=== PATIENT | female | born 1955 | race Caucasian/White ===

== ENCOUNTER 2018-12-28 23:24 | Emergency (ER) | payer OTHER ==
--- OUTSIDE RECORDS SUMMARY | 2018-12-28 23:27 | XMS REPORT ---
:1955 Author Organization [facility] Address [address] [place] [address] Dr. Reyes [address] [place] [id number] Care Team Providers Name Role Phone Unavailable Unavailable Unavailable Problems This patient has no known problems. Allergies, Adverse Reactions, Alerts This patient has no known allergies or adverse reactions. Medications This patient has no known medications.
[2018-12-28 23:57] LABS: Absolute Lymphocytes (CBC) 1.3 K/uL (0.7-4.9); Absolute Monocytes 0.5 K/uL (0.1-1.3); Absolute Neutrophil 2.7 K/uL (1.8-8.0); Basophils % 0.9 % (0-1.3); Eosinophils % 2.8 % (0-4.4); Hematocrit 36.7 % (36.0-45.0); Lymphocytes % 28.2 % (15.3-44.8); MPV 9.1 fL (7.6-11.3)
[2018-12-29 00:01] LABS: Protime INR 0.96
[2018-12-29] MEDS ORDERED: ONDANSETRON 4 MG/2 ML VIAL ONE (00:03)
[2018-12-29] MEDS ORDERED: MORPHINE 2 MG/ML SYR ONE ×2 (00:03→02:17)
[2018-12-29 00:17] LABS: ALT/SGPT 45 U/L (12-78); AST/SGOT 32 U/L (15-37); Alkaline Phosphatase 115 U/L (45-117); BUN Blood Urea Nitrogen 11 mg/dL (7-18); Bicarbonate 28 mmol/L (21-32); Bilirubin Direct < 0.1 mg/dL (0-0.2); Bilirubin Total 0.3 mg/dL (0.2-1.0); Glucose Level 96 mg/dL (74-106); Magnesium 2.2 mg/dL (1.8-2.4); NT PRO-BNP 104 pg/mL (<125); Potassium 3.8 mmol/L (3.5-5.1); Protein, Total 7.1 g/dL (6.4-8.2); Sodium Level 132 mmol/L (136-145); Troponin (Emerg Dept Use Only) < 0.02 ng/mL (0.0-0.045)
--- NOTE | 2018-12-29 05:41 | EDPHYS ---
Physician Documentation [facility] Name: Chica Flores Age: 63 yrs Sex: Female : 1955 Arrival Date: 12/28/2018 Time: 23:28 Bed 30 Private MD: Reuben Gee E ED Physician Armand Canales HPI: 12/29 05:30 This 63 yrs old Female presents to ER via EMS with complaints of Chest Pain. tw4 05:30 The patient or guardian reports chest pain that is located primarily in the epigastric tw4 area. Onset: today. The pain does not radiate. Associated signs and symptoms: The patient has no apparent associated signs or symptoms. The chest pain is described as a heaviness. Duration: The patient or guardian reports a single episode. Modifying factors: The symptoms are alleviated by nothing. the symptoms are aggravated by nothing. Historical: - Allergies: 12/28 23:32 PENICILLINS; la1 23:32 steroids; la1 - PMHx: 23:32 Anxiety; Colitis; Depression; Osteoporosis; PTSD; ulcerative ulcer; la1 - Immunization history:: Adult Immunizations up to date. - Social history:: Smoking status: unknown. - Ebola Screening: : No symptoms or risks identified at this time. ROS: 12/29 05:30 Constitutional: Negative for fever, chills, and weight loss, Eyes: Negative for injury, tw4 pain, redness, and discharge, Respiratory: Negative for shortness of breath, cough, wheezing, and pleuritic chest pain, Abdomen/GI: Negative for abdominal pain, nausea, vomiting, diarrhea, and constipation. MS/Extremity: Negative for injury and deformity, Skin: Negative for injury, rash, and discoloration. Cardiovascular: Positive for chest pain, Negative for edema, orthopnea, palpitations, paroxysmal nocturnal dyspnea. Exam: 05:30 Constitutional: This is a well developed, well nourished patient who is awake, alert, tw4 and in no acute distress. Head/Face: Normocephalic, atraumatic. Cardiovascular: Regular rate and rhythm with a normal S1 and S2. No gallops, murmurs, or rubs. Normal PMI, no JVD. No pulse deficits. Respiratory: Lungs have equal breath sounds bilaterally, clear to auscultation and percussion. No rales, rhonchi or wheezes noted. No increased work of breathing, no retractions or nasal flaring. Abdomen/GI: Soft, non-tender, with normal bowel sounds. No distension or tympany. No guarding or rebound. No evidence of tenderness throughout. Back: No spinal tenderness. No costovertebral tenderness. Full range of motion. MS/ Extremity: Pulses equal, no cyanosis. Neurovascular intact. Full, normal range of motion. Neuro: Awake and alert, GCS 15, oriented to person, place, time, and situation. Cranial nerves II-XII grossly intact. Motor strength 5/5 in all extremities. Sensory grossly intact. Cerebellar exam normal. Normal gait. Vital Signs: 12/28 23:33 BP 157 / 85; Pulse 74; Resp 18; Pulse Ox 98% on R/A; la1 12/29 00:17 BP 155 / 84; Pulse 81; Resp 18; Pulse Ox 98% on R/A; la1 01:18 BP 154 / 71; Pulse 81; Resp 16; Pulse Ox 98% on R/A; la1 01:47 BP 140 / 79; Pulse 90; Resp 18; Temp 97.5; Pulse Ox 98% on R/A; la1 03:11 BP 130 / 80; Pulse 76; Resp 16; Pulse Ox 98% on R/A; la1 04:00 BP 132 / 75; Pulse 78; Resp 16 S; Pulse Ox 100% on R/A; bb 05:36 BP 131 / 89; Pulse 72; Resp 16 S; Pulse Ox 100% on R/A; bb 05:59 BP 130 / 87; Pulse 74; Resp 16 S; Temp 98.1(O); Pulse Ox 99% on R/A; bb MDM: 12/28 23:32 Patient medically screened. tw4 12/29 05:30 Differential diagnosis: chest wall pain, pancreatitis, peptic ulcer disease, pneumonia, tw4 pulmonary embolus, thoracic aortic disection. Data reviewed: vital signs, nurses notes. Data interpreted: Pulse oximetry: 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: normal. Test interpretation: by ED physician or midlevel provider: ECG, plain radiologic studies. Counseling: I had a detailed discussion with the patient and/or guardian regarding: the historical points, exam findings, and any diagnostic results supporting the discharge/admit diagnosis, lab results, radiology results. Special discussion: Based on the patient's history, exam, and Dx evaluation, there is no indication for emergent intervention or inpatient Tx. It is understood by the patient/guardian that if the Sx's persist or worsen they need to return immediately for re-evaluation. I discussed with the patient/guardian in detail that at this point there is no indication for admission to the hospital. It is understood, however, that if the symptoms persist or worsen the patient needs to return immediately for re-evaluation. 12/28 23:34 Order name: Basic Metabolic Panel; Complete Time: 01:11 12/29 01:11 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: Normal except: NA 132; CL 97; GFR 81. 12/28 23:34 Order name: CBC with Diff; Complete Time: 01:12 12/29 01:12 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: Within normal limits. 12/28 23:34 Order name: LFT's; Complete Time: 01:12 12/29 01:12 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: Within normal limits. 12/28 23:34 Order name: Magnesium 12/28 23:34 Order name: NT PRO-BNP; Complete Time: 01:12 12/29 01:12 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: Within normal limits: NT PRO-BNP 104. 12/28 23:34 Order name: PT-INR 12/28 23:34 Order name: Troponin (emerg Dept Use Only) 12/28 23:34 Order name: XRAY Chest (1 view) 12/28 23:34 Order name: EKG; Complete Time: 23:35 12/29 01:16 Order name: CT Chest, Abdomen, Pelvis - W/Contrast 12/29 03:39 Order name: Troponin (emerg Dept Use Only) 12/28 23:34 Order name: Cardiac monitoring; Complete Time: 00:20 12/28 23:34 Order name: EKG - Nurse/Tech; Complete Time: 00:20 12/28 23:34 Order name: IV Saline Lock; Complete Time: 00:20 12/28 23:34 Order name: Labs collected and sent; Complete Time: 23:57 12/28 23:34 Order name: O2 Per Protocol; Complete Time: 23:57 12/28 23:34 Order name: O2 Sat Monitoring; Complete Time: 23:57 tw4 Administered Medications: 12/28 23:50 Drug: Zofran 4 mg Route: IVP; Site: right antecubital; ca1 12/29 01:56 Follow up: Response: No adverse reaction la1 12/28 23:52 Drug: morphine 2 mg Route: IVP; Site: right antecubital; ca1 12/29 01:56 Follow up: Response: No adverse reaction; Pain is decreased la1 02:37 Drug: morphine 2 mg Route: IVP; Site: right antecubital; la1 04:30 Follow up: Response: Pain is decreased bb Disposition: 12/29/18 05:40 Discharged to Home. Impression: Atypical chest pain. - Condition is Stable. - Discharge Instructions: Nonspecific Chest Pain, Weakness. - Medication Reconciliation Form, Thank You Letter, Antibiotic Education, Prescription Opioid Use form. - Follow up: Reuben Gee MD; When: Upon discharge from the Emergency Department; Reason: If symptoms return, Recheck today's complaints, Continuance of care. - Problem is new. - Symptoms have improved. Signatures: Dispatcher [employer] EDMyranda Mcintyre RN RN bb Jose Francisco Stapleton RN RN la1 Armand Canales MD MD tw4 Madalyn Pickens RN RN ca1 Corrections: (The following items were deleted from the chart) 06:03 05:40 12/29/2018 05:40 Discharged to Home. Impression: Atypical chest pain. Condition bb is Stable. Forms are Medication Reconciliation Form, Thank You Letter, Antibiotic Education, Prescription Opioid Use. Follow up: Reuben Gee; When: Upon discharge from the Emergency Department; Reason: If symptoms return, Recheck today's complaints, Continuance of care. Problem is new. Symptoms have improved. tw4
--- NOTE | 2018-12-29 05:41 | ER ---
Nurse's Notes [facility] Name: Chica Flores Age: 63 yrs Sex: Female : 1955 Arrival Date: 12/28/2018 Time: 23:28 Bed 30 Private MD: Reuben Gee E Diagnosis: Atypical chest pain Presentation: 12/28 23:31 Presenting complaint: Patient states: Chest pain for the last 24 hours. Transition of la1 care: patient was not received from another setting of care. Onset of symptoms was December 28, 2018. Risk Assessment: Do you want to hurt yourself or someone else? Patient reports no desire to harm self or others. Initial Sepsis Screen: Does the patient meet any 2 criteria? No. Patient's initial sepsis screen is negative. Does the patient have a suspected source of infection? No. Patient's initial sepsis screen is negative. Care prior to arrival: None. 23:31 Method Of Arrival: EMS: [facility] la1 23:31 Acuity: ANITA 3 la1 Historical: - Allergies: 23:32 PENICILLINS; la1 23:32 steroids; la1 - PMHx: 23:32 Anxiety; Colitis; Depression; Osteoporosis; PTSD; ulcerative ulcer; la1 - Immunization history:: Adult Immunizations up to date. - Social history:: Smoking status: unknown. - Ebola Screening: : No symptoms or risks identified at this time. Screenin/25 00:19 Abuse screen: Denies threats or abuse. Nutritional screening: No deficits noted. la1 Tuberculosis screening: No symptoms or risk factors identified. Fall Risk None identified. Assessment: 00:18 General: Appears in no apparent distress. Behavior is cooperative. Pain: Complains of la1 pain in chest Pain does not radiate. Pain currently is 6 out of 10 on a pain scale. Neuro: Level of Consciousness is awake, alert, obeys commands, Oriented to person, place, time, situation. Cardiovascular: Heart tones S1 S2 present Capillary refill < 3 seconds Patient's skin is warm and dry. Respiratory: Airway is patent Respiratory effort is even, unlabored, Respiratory pattern is regular, symmetrical, Breath sounds are clear bilaterally. GI: No signs and/or symptoms were reported involving the gastrointestinal system. : No signs and/or symptoms were reported regarding the genitourinary system. 01:18 Reassessment: Patient appears in no apparent distress at this time. No changes from la1 previously documented assessment. Patient and/or family updated on plan of care and expected duration. Pain level reassessed. Patient is alert, oriented x 3, equal unlabored respirations, skin warm/dry/pink. 01:47 Reassessment: Patient appears in no apparent distress at this time. No changes from la1 previously documented assessment. Patient and/or family updated on plan of care and expected duration. Pain level reassessed. Patient is alert, oriented x 3, equal unlabored respirations, skin warm/dry/pink. 03:08 Reassessment: Patient appears in no apparent distress at this time. No changes from la1 previously documented assessment. Patient and/or family updated on plan of care and expected duration. Pain level reassessed. Patient is alert, oriented x 3, equal unlabored respirations, skin warm/dry/pink. 04:21 Reassessment: Patient and/or family updated on plan of care and expected duration. Pain bb level reassessed. Patient is alert, oriented x 3, equal unlabored respirations, skin warm/dry/pink. pt is resting quietly, IV site intact, family at bedside, awaiting CT results. 05:58 Reassessment: Patient and/or family updated on plan of care and expected duration. Pain bb level reassessed. Patient is alert, oriented x 3, equal unlabored respirations, skin warm/dry/pink. pt verbalized understanding of and agrees to plan of care discharge instructions given pt ambulated to exit accompanied by spouse. Vital Signs: 12/28 23:33 BP 157 / 85; Pulse 74; Resp 18; Pulse Ox 98% on R/A; la1 12/29 00:17 BP 155 / 84; Pulse 81; Resp 18; Pulse Ox 98% on R/A; la1 01:18 BP 154 / 71; Pulse 81; Resp 16; Pulse Ox 98% on R/A; la1 01:47 BP 140 / 79; Pulse 90; Resp 18; Temp 97.5; Pulse Ox 98% on R/A; la1 03:11 BP 130 / 80; Pulse 76; Resp 16; Pulse Ox 98% on R/A; la1 04:00 BP 132 / 75; Pulse 78; Resp 16 S; Pulse Ox 100% on R/A; bb 05:36 BP 131 / 89; Pulse 72; Resp 16 S; Pulse Ox 100% on R/A; bb 05:59 BP 130 / 87; Pulse 74; Resp 16 S; Temp 98.1(O); Pulse Ox 99% on R/A; bb ED Course: 12/28 23:28 Patient arrived in ED. am2 23:28 Reuben Gee MD is Private Physician. am2 23:30 Jose Francisco Stapleton, ROBERT is Primary Nurse. la1 23:31 Triage completed. la1 23:32 Armand Canales MD is Attending Physician. tw4 23:32 Arm band placed on right wrist. la1 12/29 00:00 X-ray completed. Portable x-ray completed in exam room. Patient tolerated procedure kw well. 00:01 XRAY Chest (1 view) In Process Unspecified. EDMS 00:19 Placed in gown. Bed in low position. Call light in reach. chaser helper on. Pulse ox la1 on. NIBP on. 00:19 No provider procedures requiring assistance completed. Maintain EMS IV. Patient la1 maintains SpO2 saturation greater than 95% on room air. 02:50 CT Chest, Abdomen, Pelvis - W/Contrast In Process Unspecified. EDMS 03:44 Assisted to bathroom. la1 04:41 Diet: Patient given water. per pt request hot tea given. bb 05:39 Reuben Gee MD is Referral Physician. tw4 06:01 IV discontinued, intact, bleeding controlled, No redness/swelling at site. Pressure bb dressing applied. Administered Medications: 12/28 23:50 Drug: Zofran 4 mg Route: IVP; Site: right antecubital; ca1 12/29 01:56 Follow up: Response: No adverse reaction la1 12/28 23:52 Drug: morphine 2 mg Route: IVP; Site: right antecubital; ca1 12/29 01:56 Follow up: Response: No adverse reaction; Pain is decreased la1 02:37 Drug: morphine 2 mg Route: IVP; Site: right antecubital; la1 04:30 Follow up: Response: Pain is decreased bb Outcome: 05:40 Discharge ordered by . tw4 06:01 Discharged to home ambulatory, with family. bb 06:01 Condition: stable 06:01 Instructed on discharge instructions, follow up and referral plans. Demonstrated understanding of instructions, follow-up care. 06:03 Patient left the ED. bb Signatures: Dispatcher [employer] EDMyranda Mcintyre RN RN Jennifer Begum Lee, RN RN la1 Megan Petres am2 Armand Canales MD MD tw4 Madalyn Pickens RN RN ca1 Corrections: (The following items were deleted from the chart) 01:56 01:47 BP 140 / 79; Pulse 90bpm; Resp 18bpm; Pulse Ox 98% RA; la1 la1 06:05 06:01 Discharged to home via wheelchair, with family, ina buckley 06:06 05:58 Reassessment: Patient and/or family updated on plan of care and expected bb duration. Pain level reassessed. Patient is alert, oriented x 3, equal unlabored respirations, skin warm/dry/pink. pt verbalized understanding of and agrees to plan of care discharge instructions given pt assisted to exit via wheelchair accompanied by spouse bb
[2018-12-29 06:20] VITALS: BP 130/87; TEMP 98.1; O2SAT 99
--- NOTE | 2018-12-29 08:30 | RAD REPORT ---
EXAM DESCRIPTION: RAD - Chest Single View - 12/29/2018 12:00 am CLINICAL HISTORY: Chest pain COMPARISON: December 26, 2017 TECHNIQUE: AP portable chest image was obtained 2350 hours . FINDINGS: No focal lung parenchymal process. No mass or failure finding. Interstitial markings are d iffusely prominent but not clearly different from comparison. Extent of chronic disease could mask ea rly edema or infiltrate. Heart and vasculature are normal. No measurable pleural effusion and no pneumothorax. No acute bony abnormality seen. No acute aortic findings suspected. IMPRESSION: Chronic interstitial lung disease not clearly different from December 2017.
--- NOTE | 2018-12-29 08:46 | EKG ---
Test Date: 2018-12-28 Test Time: 23:37:33 Casing Inspector: JEANIE MEASUREMENT RESULTS: Intervals: Rate: 74 FL: QRSD: 80 QT: 414 QTc: 459 [place]: P: FL: QRS: 56 T: 62 INTERPRETIVE STATEMENTS: Sinus rhythm with occasional premature ventricular complexes Abnormal ECG Compared to ECG 12/26/2017 05:13:04 Ventricular premature complex(es) now present Atrial premature complex(es) no longer present Electronically Signed On 12-29-18 08:45:26 CDT by Aiden Garner
--- NOTE | 2018-12-29 12:22 | RAD REPORT ---
EXAM DESCRIPTION: CT - Chest Abdomen Pelvis W Cont - 12/29/2018 6:33 am CLINICAL HISTORY: The patient is 63 years old and is Female; CHEST PAIN TECHNIQUE: Axial computed tomography images of the chest, abdomen and pelvis with intravenous contra st. Sagittal and coronal reformatted images were created and reviewed. This CT exam was performed using one or more of the following dose reduction techniques: automated exposure control, adjustme nt of the mA and/or kV according to patient size, and/or use of iterative reconstruction technique. COMPARISON: None. FINDINGS: CHEST: LUNGS: Hyperinflation without focal consolidation, pleural effusion or pneumothorax. Minimal atele ctasis versus scarring in the lingula. PLEURAL SPACE: See above. HEART: Heart is normal in size. Chronic calcifications noted. No significant pericardial effusion. THYROID: Visualized thyroid is within normal limits. ABDOMEN: LIVER: Diffuse hepatic steatosis GALLBLADDER AND BILE DUCTS: Unremarkable. No calcified stones. No ductal dilation. PANCREAS: Unremarkable. No ductal dilation. No mass. SPLEEN: Unremarkable. No splenomegaly. ADRENALS: Unremarkable. No mass. KIDNEYS AND URETERS: Unremarkable. No hydronephrosis. No solid mass. STOMACH AND BOWEL: Moderate stool burden throughout the large bowel. No mucosal thickening. PELVIS: APPENDIX: No findings to suggest acute appendicitis. BLADDER: Unremarkable. No mass. REPRODUCTIVE: Unremarkable as visualized. CHEST, ABDOMEN and PELVIS: INTRAPERITONEAL SPACE: Unremarkable. No significant fluid collection. No free air. BONES/JOINTS: Diffuse osteopenia. No acute fracture. No dislocation. SOFT TISSUES: Unremarkable. VASCULATURE: Minimal calcification in the descending aorta. Aortic arch and great vessels are within normal limits. No filling defect in the pulmonary arterial tree. No aortic aneurysm. LYMPH NODES: Unremarkable. No enlarged lymph nodes. OTHER FINDINGS: Multiple Schmorl's node deformities. IMPRESSION: 1. No acute intrathoracic, abdominal pelvic abnormality. 2. Pulmonary hyperinflation without focal consolidation. 3. Moderate to severe stool burden throughout the large bowel without rectal distention. Correlate for constipation. 4. Coronary artery calcifications. 5. Mild aortic atherosclerotic calcification. 6. Diffuse hepatic steatosis. 7. Diffuse osteopenia. Electronically signed by: Seng Rutherford DO 12/29/2018 3:07 AM CDT Due to temporary technical issues with the PACS/Fluency reporting system, reports are being signed by the in house radiologist as a courtesy to ensure prompt reporting. The interpreting radiologist is f ully responsible for the content of the report.
== END 2018-12-29 06:03 | disposition home or self-care (01) ==
LOC: ER 23:24
DX: R07.89 Other chest pain (principal); Z88.0 Allergy status to penicillin; Z88.8 Allergy status to other drugs, medicaments and biological substances
CPT/HCPCS: 36415; 71045; 71260; 74177; 80048; 80076; 83735; 83880; 84484; 85025; 85610; 93005; 96374; 96375; 99285; J2270; J2405; Q9967

== ENCOUNTER 2020-09-03 00:47 | Observation (INO) | payer OTHER ==
--- OUTSIDE RECORDS SUMMARY | 2020-09-03 00:50 | XMS REPORT | Clinical Summary ---
:1955 Author Organization [facility] Address [address] [place] [address] Care Team Providers Name Role Phone Marlen Wong MD Primary Care Provider Allergies Active Allergy Reactions Severity Noted Date Comments Penicillins Unknown Reaction 06/16/2020 Prednisolone Other (See Comments) 06/16/2020 Hives,r estless,per pt she is allergic to po steroids [per pt she is ok to take IV steroid} Medications Medication Sig Dispensed Refills Start Date End Date Status ALPRAZolam (XANAX) Take 2 mg by 0 Active 2 MG tablet mouth daily as needed for anxiety. senna (SENOKOT) Take 2 tablets 0 06/22/20 Discontinued 8.6 mg tablet by mouth 2 20 (Stop Taking at (two) times a Discha rge) day. acetaminophen-code Take 1 tablet 30 tablet 0 06/22/2020 ine (TYLENOL WITH by mouth every 20 CODEINE #3) 300-30 6 (six) hours mg per as needed for tabletIndications: moderate pain acute pain for up to 8 days .acute pain. amLODIPine Take 1 tablet 30 tablet 2 06/23/2020 07/23/20 Expi red (NORVASC) 10 mg (10 mg total) 20 tablet by mouth daily for 30 days. budesonide EC Take 3 90 capsule 0 06/23/2020 07/23/20 Expi red (ENTOCORT EC) 3 mg capsules (9 mg 20 24 hr capsule total) by mouth daily for 30 days. gabapentin Take 1 capsule 90 capsule 2 06/22/2020 07/22/20 Ex pired (NEURONTIN) 300 mg (300 mg total) 20 capsule by mouth 3 (three) times a day for 30 days. lisinopriL Take 1 tablet 30 tablet 2 06/23/2020 07/23/20 Expi red (PRINIVIL) 40 mg (40 mg total) 20 tablet by mouth daily for 30 days. mesalamine Take 1 tablet 90 tablet 0 06/22/2020 07/22/20 Expi red (ASACOL) 800 mg EC (800 mg total) 20 tablet by mouth 3 (three) times a day for 30 days. mesalamine Insert 60 mL 1800 mL 0 06/22/2020 07/22/20 Expir ed (ROWASA) 4 gram/60 (4 g total) 20 mL enema into the rectum nightly for 30 days. triamcinolone Apply 30 g 0 06/22/2020 07/22/20 Expir ed (KENALOG) 0.1 % topically 2 20 cream (two) times a day for 30 days. Active Problems Problem Noted Date Colitis 06/16/2020 Encounters Date Type Specialty Care Team Description 06/28/2020 Patient Outreach Quality Ludmila Dill MA 06/28/2020 Patient Outreach Quality Ludmila Dill MA 06/27/2020 Patient Outreach Quality Ludmila Dill MA 06/16/2020 - Hospital Encounter General Internal Suzan Pierce Col itis (Primary Dx) 06/22/2020 Medicine MD [place] 06/16/2020 Travel after 09/03/2019 Surgical History Surgery Date Site/Laterality Comments DILATION AND CURETTAGE OF UTERUS TONSILLECTOMY EYE SURGERY Medical History Medical History Date Comments UC (ulcerative colitis) (HCC) PTSD (post-traumatic stress disorder) Depression Social History Tobacco Use Types Packs/Day Years Used Date Never Assessed Sex Assigned at Date Recorded Not on file Last Filed Vital Signs Vital Sign Reading Time Taken Comments Blood Pressure 173/83 06/22/2020 2:05 PM CDT Pulse 76 06/22/2020 11:42 AM CDT Temperature 36.8 C (98.3 F) 06/22/2020 11:42 AM CDT Respiratory Rate 16 06/22/2020 11:42 AM CDT Oxygen Saturation 100% 06/22/2020 11:42 AM CDT Inhaled Oxygen Concentration - - Weight 44.3 kg (97 lb 11.2 oz) 06/16/2020 8:18 PM CDT Height 167.6 cm (5' 6") 06/17/2020 8:57 AM CDT Body Mass Index 15.77 06/16/2020 8:18 PM CDT Plan of Treatment Health Maintenance Due Date Last Done Comments CERVICAL CANCER SCREENING 1976 BREAST CANCER SCREENING 2005 COLONOSCOPY SCREENING 2005 SHINGLES VACCINES (#1) 2005 INFLUENZA VACCINE 05/07/2020 65+ PNEUMOCOCCAL VACCINE (1 of 1 - PPSV23) 2020 Procedures Procedure Name Priority Date/Time Associated Comments Diagnosis ESTIMATED GFR Routine 06/22/2020 4:35 Results fo r this AM CDT procedure are i n the results section. MAGNESIUM LEVEL Routine 06/22/2020 4:35 Results for this AM CDT procedure are i n the results section. BASIC METABOLIC PANEL Routine 06/22/2020 4:35 Re sults for this AM CDT procedure are i n the results section. HC COMPLETE BLD COUNT Routine 06/22/2020 4:35 Re sults for this W/AUTO DIFF AM CDT procedure are i n the results section. ESTIMATED GFR Routine 06/21/2020 5:00 Results fo r this AM CDT procedure are i n the results section. BASIC METABOLIC PANEL Routine 06/21/2020 5:00 Re sults for this AM CDT procedure are i n the results section. HC COMPLETE BLD COUNT Routine 06/21/2020 5:00 Re sults for this W/AUTO DIFF AM CDT procedure are i n the results section. ESTIMATED GFR Routine 06/20/2020 3:35 Results fo r this AM CDT procedure are i n the results section. BASIC METABOLIC PANEL Routine 06/20/2020 3:35 Re sults for this AM CDT procedure are i n the results section. HC COMPLETE BLD COUNT Routine 06/20/2020 3:35 Re sults for this W/AUTO DIFF AM CDT procedure are i n the results section. FECAL CALPROTECTIN Routine 06/18/2020 5:03 Resul ts for this PM CDT procedure are i n the results section. GASTROINTESTINAL PANEL Routine 06/18/2020 5:03 R esults for this PM CDT procedure are i n the results section. ESTIMATED GFR Routine 06/18/2020 3:55 Results fo r this AM CDT procedure are i n the results section. BASIC METABOLIC PANEL Routine 06/18/2020 3:55 Re sults for this AM CDT procedure are i n the results section. HC COMPLETE BLD COUNT Routine 06/18/2020 3:55 Re sults for this W/AUTO DIFF AM CDT procedure are i n the results section. CRP HIGH SENSITIVITY Routine 06/17/2020 5:25 Res ults for this PM CDT procedure are i n the results section. SEDIMENTATION RATE Routine 06/17/2020 5:25 Resul ts for this PM CDT procedure are i n the results section. ESTIMATED GFR Routine 06/17/2020 4:44 Results fo r this AM CDT procedure are i n the results section. COMPREHENSIVE METABOLIC Routine 06/17/2020 4:44 Results for this PANEL AM CDT procedure are i n the results section. HC COMPLETE BLD COUNT Routine 06/17/2020 4:44 Re sults for this W/AUTO DIFF AM CDT procedure are i n the results section. after 09/03/2019 Results Estimated GFR (06/22/2020 4:35 AM CDT)Only the most recent of5 resultswithin the time period is included. [facility] Estimated GFR >=90 mL/min/1.73 [facility] [place] Comment: m2 [place] Catergory Units 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 HOS PITAL G1 >=90 Normal or high G2 60-89 Mildly decreased G3a 45-59 Mildly to moderately decreas ed G3b 30-44 Moderately to severely decre ased G4 15-29 Severely decreased G5 <15 Kidney failure The eGFR was calculated using the Chronic Kidney Disea se Epidemiology Collaboration (CKD-EPI) equation. 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 is based on recommendations of the National Kidney Foundation-Kidney Disease Outcomes Alec lity Initiative (NKF-KDOQI) published in 2014. Specimen Performing Organization Address City/State/ZIP Code Phon e Number [facility] DEPARTMENT OF PATHOLOGY [address] [facility] [place] [address] AND GENOMIC MEDICINE [facility] [address] [facility] [place] [address] HOSPITAL CBC with platelet and differential (06/22/2020 4:35 AM CDT)Only the most recent of5 resultswithin the time period is included. [facility] WBC 9.6 4.5 - 11.0 k/uL [facility] RBC 3.56 (L) 4.20 - 5.50 [facility] m/uL [facility] HGB 11.1 (L) 12.0 - 16.0 [facility] g/dL [facility] HCT 34.4 (L) 37.0 - 47.0 % [facility] MCV 96.6 82.0 - 100.[address] [facility] MCH 31.2 27.0 - 34.[address] [facility] MCHC 32.3 31.0 - 37.0 [facility] g/dL [facility] RDW - SD 49.8 37.0 - 55.[address] [facility] MPV 12.0 (H) 6.9 - 11.[address] [facility] Platelet count 231 150 - 400 K/uL [facility] Nucleated RBC 0.00 /[address] [facility] Neutrophils 86.4 (H) 39.0 - 69.0 % [facility] Lymphocytes 10.0 (L) 25.0 - 45.0 % [facility] Monocytes 2.9 0.0 - 10.0 % [facility] Eosinophils 0.0 0.0 - 5.0 % [facility] Basophils 0.1 0.0 - 1.0 % [facility] Immature granulocytes 0.6 0.0 - 1.0 % [facility] Specimen Blood Performing Organization Address City/[facility]/ZIP Code Phon e Number [facility] DEPARTMENT OF PATHOLOGY [id number] [place] [address] Magnesium level (06/22/2020 4:35 AM CDT) Pathologist Sig nature Magnesium 2.0 1.6 - 2.4 mg/dL [facility] Specimen Blood Performing Organization Address City/[facility]/ZIP Code Phon e Number [facility] DEPARTMENT OF PATHOLOGY [id number] [place] [address] Basic metabolic panel (06/22/2020 4:35 AM CDT)Only the most recent of4 results within the time period is included. Pathologist Sig nature Sodium 140 135 - 148 mEq/L [facility] Potassium 3.7 3.5 - 5.0 mEq/L [facility] Chloride 106 98 - 112 mEq/L [facility] CO2 24 24 - 31 mEq/L [facility] Anion gap 10@ANIO 7 - 15 mEq/L [facility] BUN 4 (L) 8 - 23 mg/dL [facility] Creatinine 0.49 (L) 0.50 - 0.90 mg/dL [facility] Glucose 130 (H) 65 - 99 mg/dL [facility] Calcium 8.9 8.8 - 10.2 mg/dL [facility] Specimen Blood Performing Organization Address City/State/ZIP Code Phon e Number [facility] DEPARTMENT OF PATHOLOGY [address] [facility] [place] [address] AND GENOMIC MEDICINE [facility] [address] [facility] X [address] HOSPITAL Gastrointestinal panel (06/18/2020 5:03 PM CDT) Pathologist [facility] Adenovirus 40/41 PCR Not Detected [place] Comment: RELIGIOUS Specimen Information HOSPITAL Specimen Source: Stool Specimen Site: Nonpreserved Astrovirus PCR Not Detected [facility] Campylobacter PCR Not Detected [facility] Clostridioides difficile Not Detected [facility] Cryptosporidium PCR Not Detected [facility] Cyclospora cayetanensis Not Detected [facility] Enteroaggregative E coli Not Detected [facility] Entamoeba histolytica Not Detected [facility] Enteroinvasive E coli Not Detected [facility] Enteropathogenic E coli Not Detected [facility] Norovirus PCR Not Detect[facility] Plesiomonas shigelloides Not Detected [facility] Rotavirus PCR Not Detected [facility] Salmonella PCR Not Detected [facility] Sapovirus PCR Not Detected [facility] Enterotoxigenic E coli Not Detected [facility] Shigatoxin producing E Not Detected [place] coli [facility] E coli O157 PCR Not Reported [facility] Vibrio PCR Not Detected [facility] Vibrio cholerae PCR Not Detected [facility] Yersinia enterocolitica Not Detected [facility] Giardia lamblia PCR Not Detected [facility] Specimen Stool - Nonpreserved Performing Organization Address City/State/ZIP Code Phon e Number [facility] DEPARTMENT OF PATHOLOGY AND [address], [place] [address] [address] Fecal calprotectin (06/18/2020 5:03 PM CDT) Fecal calprotectin 1,273.50 (H) <15.6-120 mg/kg [facility] Specimen Blood Performing Organization Address City/[facility]/ZIP [facility] Phon e Number [facility] DEPARTMENT OF PATHOLOGY AND [address] [place] [address] [phone] [address] Sedimentation rate (06/17/2020 5:25 PM CDT) Pathologist Sig nature Sedimentation rate 10 0 - 20 mm/hr [facility] Specimen Blood Performing Organization Address City/[facility] Phon e Number [facility] DEPARTMENT OF PATHOLOGY [address] [facility] [address] AND [facility] [address] [facility] [place] [address] HOSPITAL CRP high sensitivity (06/17/2020 5:25 PM CDT) CRP, high 0.91 mg/L [place] sensitivity Comment: RELIGIOUS Please note this test is different from the C-Reactive Protein HOSPITAL (CRP) assay. CRP is a nonspecific marker of inflammati on and its levels rise in the presence of conditions such as infection and inflammatory disorders. Persistent low levels of C RP can be measured with a high-sensitivity assay (hsCRP) and a re associated with increased risks for atherosclerotic di seases. High-Sensitivity CRP (hsCRP) results are used to assig n risk for stroke, acute myocardial infarction and peripheral vascular disease as follows: Low risk: < 1.00 mg/L Average risk: 1.00 - 3.00 mg/L High risk: > 3.00 - 10.00 mg/L Indeterminate: > 10.00 mg/L * *May be indicative of another source of inflammation or infection Specimen Blood Performing Organization Address City/[facility] Phon e Number [facility] DEPARTMENT OF PATHOLOGY AND [address] [place] [address] [phone] [address] Comprehensive metabolic panel (06/17/2020 4:44 AM CDT) Pathologist Sig nature Sodium 140 135 - 148 mEq/L [facility] Potassium 4.4 3.5 - 5.0 mEq/L [facility] Chloride 103 98 - 112 mEq/L [facility] CO2 25 24 - 31 mEq/L [facility] Anion gap 12@ANIO 7 - 15 mEq/L [facility] BUN 9 8 - 23 mg/dL [facility] Creatinine 0.68 0.50 - 0.90 [facility] mg/dL [facility] Glucose 121 (H) 65 - 99 mg/dL [facility] Calcium 9.4 8.8 - 10.2 mg/dL [facility] Protein 6.7 6.3 - 8.3 g/dL [facility] Albumin 4.0 3.5 - 5.0 g/dL [facility] A/G ratio 1.5 0.7 - 3.8 [facility] Alkaline phosphatase 96 35 - 104 U/L [facility] AST 25 10 - 35 U/L [facility] ALT 16 5 - 50 U/L [facility] Total bilirubin <0.2 0.2 - 1.2 mg/dL [facility] Specimen Blood Performing Organization Address City/State/ZIP Code Phon e Number [facility] DEPARTMENT OF PATHOLOGY [address] [facility] [place] [address] AND GENOMIC MEDICINE [facility] [address] [facility] [place] [address] HOSPITAL after 09/03/2019 Insurance Payer Benefit Plan / Subscriber ID Effective Dates Phone Addre ss Type Group MEDICARE MEDICARE PART A [id number] 2020-Present [facility] [place] [place] AETNA AETNA HMO,POS,EPO, [id number] 2012-Present HMO [facility] Advance Directives For more information, please contact: [phone] Type Date Recorded Patient Development Editor Explanati on Advance Directives, Living Will 06/18/2020 2:18 PM and Medical Power of Puzzle [employer]
--- OUTSIDE RECORDS SUMMARY | 2020-09-03 00:51 | XMS REPORT | Continuity of Care Document ---
:1955 Author Organization [facility] Address [address] [place] [address] Care Team Providers Name Role Phone ANA Primary Care Physician Allergies, Adverse Reactions, Alerts Allergen Type Severity Reaction Last Verified Status Updated Penicillins Allergy Unknown March 29, No Active ([id number]) 2016 ORAL STERIODS Allergy Mild January 31, No Acti ve 2016 Medications Medication Status Dose Units Route Sig Qty Days Start End Instruct ions Date Date Alprazolam Active 2 ORAL Three Times A Day Fluoxetine Hcl Active 80 ORAL Daily Gabapentin Active 100 ORAL Twice A 14 7 Rosibel Day for 8th, Pain 2020 1:04pm Promethazine Active Unknown ORAL as Hcl Dose needed for Nausea Tramadol Hcl Active 1 ORAL 60 Tramadol/Apap Active 1 ORAL Every 12 2 April * 4-6 8th, Hours 2019 As 1:04pm Needed as needed for Pain Problems Active Problems Medical Problem Onset Date Status Abdominal pain Active Ulcerative colitis Active Acute infective gastroenteritis Active Infective enteritis Active Inactive/Resolved Problems Medical Problem Onset Date Status Hx of ulcerative colitis Resolved Gastroenteritis Resolved Anxiety Resolved Dysthymia Resolved Weight loss Resolved Left leg pain Resolved Procedures Procedure Date Performed Status Computed tomography of abdomen June 16, 2020 complete d and pelvis with contrast Relevant Diagnostic Tests and/or Laboratory Data Laboratory Results Test Date/Time Result 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 Reference Result Perfo rming Range Comment Site White Blood Count June 6.6 4.0-11.5 MR , [address] [facility] [address] 10:08am Red Blood Count June 3.95 3.80-5.20 [facility] , [address] [facility] [address] [facility] [address] 10:08am Hemoglobin June 12.3 10.5-15.7 [facility], [address] [facility] [address] [facility] [address] 10:08am Hematocrit June 37.7 34.0-50.0 [facility], [address] [facility] [address] [facility] [address] 10:08am Mean Corpuscular Ary 95.4 86-100 [facility], [address] [facility] [address] Volume [address] [facility] [address] 10:08am Mean Corpuscular Ary 31.1 26.2-33.4 [facility], 104 [facility] Hemoglobin [address] [facility] [address] 10:08am Mean Corpuscular Ary 32.6 30-34 [facility], 104 [facility] Hemoglobin Concent [address] [facility] [address] 10:08am Red Cell June 13.4 12.0-15.5 [facility], [address] [facility] Distribution Width [address] [facility] [address] 10:08am Platelet Count June 258 165-450 [facility], [address] [facility] [address] [facility] [address] 10:08am Mean Platelet June 11.5 9.4-12.6 [facility], 104 [facility] Volume [address] [facility] [address] 10:08am Neutrophils (%) June 63.8 44.4-80.1 [facility] , 104 [facility] (Auto) 2019 [facility] [address] 10:08am Immature June 0.3 0.0-0.4 [facility], 104 Granulocyte % 2019 [facility] [place] [address] (Auto) 10:08am Lymphocytes (%) June 23.4 10.0-50.0 [facility] , [address] [facility] [address] (Auto) [address] [facility] [address] 10:08am Monocytes (%) June 9.0 3.6-12.0 [facility], [address] [facility] [address] (Auto) [address] [facility] [address] 10:08am Eosinophils (%) June 2.6 0.0-5.4 [facility] , 104 [facility] (Auto) [address] [facility] [address] 10:08am Basophils (%) June 0.9 0.1-1.2 [facility], [address] [facility] (Auto) 2019 [place] [address] 10:08am Neutrophils # June 4.19 1.56-6.13 [facility], [address] (Auto) [address] [facility] [address] 10:08am Absolute Immature Ary 0.0 0.0-0.03 [facility], [address] Granulocyte (auto 2019 [facility] [address] 10:08am Lymphocytes # June 1.5 1.18-3.74 [facility], [address] [facility] [address] (Auto) [address] [facility] [address] 10:08am Monocytes # (Auto) June 0.59 0.24-0.86 M [facility], [address] [facility] [address] 10:08am Eosinophils # June 0.17 0.04-0.36 [facility], [address] [facility] (Auto) 2019 [facility] [address] 10:08am Basophils # (Auto) June 0.06 0.01-0.08 M [facility], [address] [facility] [address] 10:08am Nucleated Red Ary 0 0-0.2 [facility], 104 [facility] Blood Cells % 2019 [place] [id number] 10:08am Nucleated Red Ary 0 0 [facility], 104 [facility] Blood Cells # 2019 [facility] [address] 10:08am Prothrombin Time June 10.3 10.3-12.3 [facility], 2019 LEVEL: 1.5 [facility] [address] 10:08am to 1.9 times normal range of PT Prothromb Time June 0.95 Recommended [facility], 104 International 2019 therapeutic [place] [id number] Ratio 10:08am range for patients receiving warfarin (coumadin) therapy: INR is 2.0 to 3.0Recommend ed range for patients with mechanical prosthetic heart valves: INR is 2.5 to 3.5 Activated Partial June 28.5 22.5-37.0 [facility], [address] Thromboplast Time 2019 [facility] [address] 10:08am Urine Color June LIGHT [facility], [address] [facility] [address] 11:06am Urine Appearance June CLEAR CLEAR [facility], [address] [facility] [address] 11:06am Urine Glucose (UA) June NEGATIVE NEGATIVE M [facility], 2019 [place] [id number] 11:06am Urine Bilirubin Ary NEGATIVE NEGATIVE [facility] , 104 2019 [place] [id number] 11:06am Urine Ketones June NEGATIVE NEGATIVE [facility], 104 2019 [place] [id number] 11:06am Urine Specific Ary 1.004 1.003-1.03 [facility] , 104 [place] 2019 0 [place] [id number] 11:06am Urine Blood Ary NEGATIVE NEGATIVE [facility], 10 4 2019 [place] [id number] 11:06am Urine pH June 6.000 5-9 [facility], 104 2019 [place] [id number] 11:06am Urine Protein June NEGATIVE NEGATIVE [facility], 104 2019 [place] [address] 11:06am Urine Urobilinogen June NORMAL 0.2-1.0 M [facility], 104 2019 [place] [id number] 11:06am Urine Nitrate Ary NEGATIVE NEGATIVE [facility], 104 2019 [place] [address] 11:06am Urine Leukocyte June NEGATIVE NEGATIVE [facility] , 104 Esterase 2019 [place] [address] 11:06am Urine RBC June <1 0-5 [facility], 104 2019 [place] [id number] 11:06am Urine WBC June <1 0-5 [facility], 104 2019 [place] [address] 11:06am Urine Epithelial June <1 0-5 [facility], 104 2019 [place] [id number] 11:06am Urine Bacteria June None None [facility], 104 2019 Detected Detect [place] [address] 11:06am Urine Casts June None None [facility], 10 4 2019 Detected Detect [place] [address] 11:06am Urine Culture June NO [facility], 104 Reflexed 2019 [place] [id number] 11:06am Random Glucose June 96 82-115 [facility], 104 2019 [place] [id number] 10:08am Blood Urea June 7 8-23 [facility], 104 2019 [place] [id number] 10:08am Serum Osmolality June 272 280-300 [facility], 104 2019 [place] [address] 10:08am Creatinine Ary 0.7 0.50-0.90 [facility], 104 [address] [place] [address] 10:08am Glomerular Ary > 60.00 GFR RESULTS [facility], 1 Filtration Rate 2019 ARE REPORTED [place] [address] Calc 10:08am IN mL/min/1.73m 2.Normal GFR: >60mL/minMod erately decreased GFR: 30-59 mL/minSevere ly decreased GFR: 15-29 mL/minKidney Failure (or Dialysis): <15 mL/minThe calculated eGFR is not valid for patients younger than 18 years or older than 75 years. BUN/Creatinine Ary 10.0 12-20 [facility], 104 Ratio 2019 [place] [address] 10:08am Sodium Level June 137 135-145 [facility], [address] [place] [id number] 10:08am Potassium Level June 3.5 3.5-5.2 [facility] , 104 [address] [place] [address] 10:08am Chloride Level June 102 98-108 [facility], 104 2019 [place] [address] 10:08am Carbon Dioxide June 26 21-32 [facility], 104 Level 2019 [place] [address] 10:08am Anion Gap June 12.5 -20 [facility], 104 [address] [place] [address] 10:08am Calcium Level June 9.4 8.8-10.2 [facility], 104 [address] [place] [address] 10:08am Total Protein June 6.8 6.6-8.7 [facility], 104 [address] [place] [address] 10:08am Albumin Ary 4.1 3.5-5.2 [facility], 104 2019 [place] [address] 10:08am Globulin Ary 2.7 [facility], 104 [facility] 2019 [place] [address] 10:08am Albumin/Globulin Ary 1.5 >1.0 [facility], 104 Ratio 2019 [place] [id number] 10:08am Total Bilirubin Ary < 0.3 0.0-1.2 [facility] , 104 2019 [place] [address] 10:08am Aspartate Amino July 01 15-32 [facility] , [address] Transf (AST/SGOT) [address] [place] [address] 10:08am Alanine June 22 0-33 [facility], [address] Aminotransferase [address] [place] [address] (ALT/SGPT) 10:08am Total Alkaline June 35-105 [facility], [address] Phosphatase [address] [place] [address] 10:08am Health Concerns Health Concerns may be documented in an alternate section. Advance Directives Advance Directive Response Recorded Date/Time Advance Directives No March 29, 2016 9:35 am Advance Directive on File No June 10:00am Directive to Physicians/Living No March 9:35am Will Organ Donor Yes March 29, 2016 9:35 am Medical Power of Negative Turner No March 29 9:35am Chief Complaint and Reason for Visit Chief Complaint Abdominal/GI/Nausea/Vomiting Reason for Visit [id number] Encounters Encounter Location(s) Arrival/Admit Date Discharge/Depart Date Provider(s) Departed [facility] June 16June 16, 2020 EDYTA ADRIAN MD Emergency Room [facility] 2019 9:57am 6:20pm Ctr Assessments No Assessments Information Available Functional Status No Functional Status information available Goals Goals may be documented in an alternate section. Immunizations No Immunization Information Available Mental Status No Mental Status Information Available Medical Equipment No Medical Equipment Information available Insurance Providers Guarantor Noe Galloway Address [address] [facility] [address] Contact Info. Home Phone: Payer Policy Id Coverage Id Subscriber's Subscriber Id Effective E xpiration Name Date Date [employer] [id number] Dada Galloway [id number] W Plan of Treatment Future Tests Future scheduled test information is unavailable Pending Tests Pending diagnostic test information is unavailable Future Visits Future appointment information is unavailable Referrals to Other Providers Reason for Referral Start Provider Provider Contact Provider Address Referral Date Information KONSTANTIN PEREZ Work Phone: [phone] [facility] [address] [facility] [address] Future Procedures Future procedure information is unavailable Future Medications Future medication information is unavailable Patient Instructions Patient instructions are unavailable Social History Smoking Status Status Date of Observation Never smoked tobacco (finding) June 16, 2020 10 :00am Observation Status Observation Response Date of Response Hx Physical Abuse No June 16, 2020 10:00am Assigned Sex Female Vital Signs Vital Reading Result Collection Date/Time Weight 105 [lb_av] June 16, 2020 10:00am BMI (Body Mass Index) 16.9 kg/m2 June 16 10:00am
--- OUTSIDE RECORDS SUMMARY | 2020-09-03 00:51 | XMS REPORT | Continuity of Care Document ---
:1955 Author Organization [facility] t Address [address] [place] [address] Care Team Providers Name Role Phone Marlen Wong MD Primary Care Physician Fuentes REYES Attending Clinician Unavailable [facility] Zak De Souza DO Attending Clinician Doctor Unassigned, Name Attending Clinician Unavailable Germán JONES Attending Clinician Unavailable STAN Admitting Clinician Unavailable Payers Payer Name Policy Type Policy Effective Date Expiration Date Sour ce Number MEDICAREMEDICARE PART [id number] 2020 piper [id number] 2019- 00:00:00 Met NAN RothMedistuart AETNAAETNA [id number] 2012 [place] HMO,POS,EPO, 00:00:00 Paulo GARCIA/[id number] 3-PresentHMO Problems Condition Condition Condition Status Onset Resolution Last Treating Co mments Source Name Details Category Date Date Treatment Clinician Date Colitis Colitis Disease Active [place] 9-10 [facility] 00:00: st 00 Allergies, Adverse Reactions, Alerts Allergy Allergy Status Severity Reaction(s) Onset Inactive Treating Comm ents Source Name Type Date Date Clinician Penicill Propensi Active Unknown [place] on ins ty to Reaction 10 Methodi adverse 00:00: st reaction 00 s to drug Predniso Propensi Active Other (See Hives,res [place] lone ty to Comments) 9 tless,per Meth sally adverse 00:00: pt she is st reaction 00 allergic s to to po drug steroids [per pt she is ok to take IV steroid} Social History Social Habit Start Date Stop Date Quantity Comments Source Sex Assigned At Diana Bates Medications Ordered Filled Start Stop Current Ordering Indication Dosage Frequency Signature Comments Components Source Medication Medication Date Date Medication? Clinician (SIG) Name Name amLODIPine 2020- No 10mg QD Take 1 [place] (NORVASC) 06-23 tablet (10 Met hodi 10 mg 00:00: 23:59 mg total) st tablet 00 :00 by mouth daily for 30 days. budesonide 2019- No 9mg QD Take 3 [place] EC 06-23 capsules Method[facility] (ENTOCORT 00:00: 23:59 ([address] EC) 3 mg 24 00 :00 total) by hr capsule mouth daily for 30 days. lisinopriL 2019- No 40mg QD Take 1 [place] (PRINIVIL) 06-23 tablet (40 Me thodi 40 mg 00:00: 23:59 mg total) st tablet 00 :00 by mouth daily for 30 days. senna 2019- 2020- No 2{tbl} Q.5D Take 2 [place] (SENOKOT) 06-22 tablets by Met hodi 8.6 mg 15:47: 00:[address] tablet 50 :00 (two) times a day. ALPRAZolam 0 Yes 2mg Q24H Take 2 mg [place] (XANAX) 2 06-22 by mouth Method i MG tablet 15:47: daily as st 49 needed for anxiety. gabapentin 2019-0 2020- No 300mg Q.[id number] Take 1 [place] (NEURONTIN) 06-22 [id number] capsule Methodi 300 mg 00:00: 23:59 3D ([address] capsule 00 :00 total) by mouth 3 (three) times a day for 30 days. mesalamine 2019- No 800mg Q.68096440 Take 1 [place] (ASACOL) 06-22 [id number] tablet Me thodi 800 mg EC 00:00: 23:59 3D ([address] tablet 00 :00 total) by mouth 3 (three) times a day for 30 days. mesalamine 2019- No 4g QD Insert 60 [place] (ROWASA) 4 06-22 mL (4 g Metho di gram/60 mL 00:00: 23:59 total) st enema 00 :00 into the rectum nightly for 30 days. triamcinolo 2019- No Q.5D Apply [place] ne 06-22 topically Method[facility] (KENALOG) 00:00: 23:59 2 (two) st 0.1 % cream 00 :00 times a day for 30 days. acetaminoph 2019- No acute pain 1{tbl} Q6H Take 1 [place] en-codeine 06-22 tablet by Met vinny (TYLENOL 00:00: 23:[address] WITH 00 :00 every 6 CODEINE #3) (six) 300-30 mg hours as per tablet needed for moderate pain for up to 8 days .acute pain. Vital Signs Vital Name Observation Time Observation Value Comments Source Systolic blood 2020-06-22 14:05:00 173 mm[Hg] Abdirashidto n Yazidism pressure Diastolic blood 2020-06-22 14:05:00 83 mm[Hg] Any on Yazidism pressure Heart rate 2020-06-22 11:42:04 76 /min Nadir Bates Body temperature 2020-06-22 11:42:04 36.83 Susan [place] [facility] Respiratory rate 2020-06-22 11:42:04 16 /min Abdirashid ton [facility]ism Oxygen saturation in 2020-06-22 11:42:04 100 /min Nadir Bates Arterial blood by Pulse oximetry Body height 2020-06-17 08:57:00 167.6 cm Nadir Bates Body weight 2020-06-16 20:18:00 44.316 kg Nadir Bates BMI 2020-06-16 20:18:00 15.77 kg/m2 Nadir Bates Procedures Procedure Date / Time Performing Clinician Source Performed HC COMPLETE BLD COUNT 2020-06-22 04:35:00 Prince Ginna Denson Yazidism W/AUTO DIFF BASIC METABOLIC PANEL 2020-06-22 04:35:00 Prince Ginna Denson Yaz[facility]ism MAGNESIUM LEVEL 2020-06-22 04:35:00 Prince Nadir Denson Meth odist ESTIMATED GFR 2020-06-22 04:35:00 Prince Nadir Denson Meth odist HC COMPLETE BLD COUNT 2020-06-21 05:00:00 MartinoEugenia Yazidism W/AUTO DIFF BASIC METABOLIC PANEL 2020-06-21 05:00:00 MartinoEugenia dominguez Yazidism ESTIMATED GFR 2020-06-21 05:00:00 Eugenia Martino HC COMPLETE BLD COUNT 2020-06-20 03:35:00 MartinoEugenia dominguez Yazidism W/AUTO DIFF BASIC METABOLIC PANEL 2020-06-20 03:35:00 MartinoEugenia dominguez ESTIMATED GFR 2020-06-20 03:35:00 Eugenia Martino GASTROINTESTINAL PANEL 2020-06-18 17:03:00 Enrrique Pierce Jitendrablico FECAL CALPROTECTIN 2020-06-18 17:03:00 Enrrique Pierce ethodist Jitendrabhai HC COMPLETE BLD COUNT 2020-06-18 03:55:00 Eugenia Martino W/AUTO DIFF BASIC METABOLIC PANEL 2020-06-18 03:55:00 Eugenia Martino Yazidism ESTIMATED GFR 2020-06-18 03:55:00 Eugenia Martino SEDIMENTATION RATE 2020-06-17 17:25:00 Enrrique Pierce M ethodist Jitendrablico CRP HIGH SENSITIVITY 2020-06-17 17:25:00 Enrrique Pierce Jitendrabhai HC COMPLETE BLD COUNT 2020-06-17 04:44:00 Monique Pierce Yazidism W/AUTO DIFF Purushottam COMPREHENSIVE METABOLIC 2020-06-17 04:44:00 Monique Pierce Yazidism PANEL Purushottam ESTIMATED GFR 2020-06-17 04:44:00 Monique Pierce Meth odist Purnancyam Plan of Care Planned Activity Planned Date Details Comments Source Future Scheduled 2020 65+ PNEUMOCOCCAL [place] [facility] Test 00:00:00 VACCINE (1 of 1 - PPSV23) [code = 65+ PNEUMOCOCCAL VACCINE (1 of 1 - PPSV23)] Future Scheduled 2020-05-07 INFLUENZA VACCINE [place] [facility] Test 00:00:00 [code = INFLUENZA VACCINE] Future Scheduled 2005 BREAST CANCER [place] Me thodist Test 00:00:00 SCREENING [code = BREAST CANCER SCREENING] Future Scheduled 2005 COLONOSCOPY SCREENING [place] [facility] Test 00:00:00 [code = COLONOSCOPY SCREENING] Future Scheduled 2005 SHINGLES VACCINES (#1) [place] [facility] Test 00:00:00 [code = SHINGLES VACCINES (#1)] Future Scheduled 1976 Screening for [facility] thodist Test 00:00:00 malignant neoplasm of cervix (procedure) [code = 344821673] Encounters Start End Encounter Admission Attending Care Care Encounter Source Date/Time Date/Time Type Type Clinicians Facility Department ID 2020-06-16 2020-06-22 Inpatient STAN Rula [id number] [place] 00:00:00 00:00:[address] MONIQUE [address] 2020-04-04 2020-04-04 Emergency [facility] [id number] 09:38:30 10:05:00 Chiqui Monterroso [id number] [place] 4.2.7.2.686 [place] [id number] 2020-04-04 2020-04-04 Orders Doctor EDELMIRA [id number] 00:00:00 00:00:00 Only Unassigned, [place] [id number] [place] [facility] 4.2.7.2.686 [id number] 2019-12-25 2019-12-25 Nurse Rosaura Dunlap [id number] 00:00:00 00:00:00 Triage [place]AMA[place] [id number] [facility] [id number] [id number] 2019-06-08 2019-06-08 Emergency Ap, [facility] [id number] 09:51:07 12:07:00 Chiqui Monterroso 350.1.13.10 [place] 4.2.7.2.686 [place] [id number] 2019-06-08 2019-06-08 Orders Doctor EDELMIRA [id number] 00:00:00 00:00:00 Only Unassigned, [place] [id number] [place] [facility] 4.2.7.2.686 [id number] Results Test Description Test Time Test Comments Results Result Comments Source Basic metabolic panel 2020-06-22 05:48:03 Test Item Value Reference Range 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 Comme nts Sodium (test code = 2951-2) 140 135- 148 mEq/L Potassium (test code = 2823-3) 3.7 3.5- 5.0 mEq/L Chloride (test code = 2075-0) 106 98- 112 mEq/L CO2 (test code = 8-9) 24 24- 31 mEq/L Anion gap (test code = 12664-8) 10@ANIO 7- 15 mEq/L BUN (test code = 3094-0) 4 mg/dL 8-23 L Creatinine (test code = 2160-0) 0.49 mg/dL 0.5-0.9 L Glucose (test code = 2345-7) 130 mg/dL 65-99 H Calcium (test code = 25266-0) 8.9 mg/dL 8.8-10.2 Lab 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 (test code = 61958-4) Abnormal [place] [facility] [id number] 05:48:03 Test Item Value Reference Range 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 Comments Magnesium (test code = 76862-6) 2.0 mg/dL 1.6-2.4 [place] MethodistEstimated [id number] 05:48:03 Test Item Value Reference Range 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 Comments Estimated GFR (test >=90 mL/min/1.73 m2 [facility] or Units code = 5488) 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G 1 >=90 Normal or highG2 60-89 Mildly ykcdpjmsnW4n 45-59 Mildly to mode rately pnkjtmtuuF1z 30-44 Moderately to severely decreasedG4 15-29 Severely decre asedG5 <15 Kidn ey failureThe eGFR was calculated maude mayes the Chronic Kidney Disease Epidemiology Co llaboration (CKD-EPI) equat ion. 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 is based on recommendations of the National Kidney Foundation-Kidn ey Disease Outcomes Qualit y Initiative (NKF-KDOQI) pub lished in 2013. Nadir MethodistCBC with platelet and [id number] 05:19:44 Test Item Value Reference Range 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 Comments WBC (test code = 02801-5) 9.6 4.5- 11.0 k/uL RBC (test code = 91538-7) 3.56 m/uL 4.2-5.5 L HGB (test code = 718-7) 11.1 g/dL 12-16 L HCT (test code = 4544-3) 34.4 % 37-47 L MCV (test code = 787-2) 96.6 fL 82-100 MCH (test code = 785-6) 31.2 pg 27-34 MCHC (test code = 786-4) 32.3 g/dL 31-37 RDW - SD (test code = 99813-2) 49.8 fL 37-55 MPV (test code = 66967-8) 12.0 fL 6.9-11 H Platelet count (test code = 231 K/uL 150-400 07898-3) Nucleated RBC (test code = 24814-7) 0.00 /100 WBC Neutrophils (test code = 28735-6) 86.4 % 39-69 H Lymphocytes (test code = 59385-6) 10.0 % 25-45 L Monocytes (test code = 36263-0) 2.9 % 0-10 Eosinophils (test code = 28190-7) 0.0 % 0-5 Basophils (test code = 93968-6) 0.1 % 0-1 Immature granulocytes (test code = 0.6 % 0-1 13366-1) Lab 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 (test code = Abnormal 60224-0) Nadir MethodistFecal [id number] 12:34:46 Test Item Value Reference Range 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 Comments Fecal calprotectin (test code = 1273.50 <15.6-120 mg/kg H 31233-2) Lab 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 (test code = Abnormal 58246-7) [place] MethodistGastrointestinal [id number] 23:20:03 Test Item Value Reference 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 Comments Range Adenovirus 40/41 PCR Not Detected Specime n (test code = 7113) Informati onSpecimen Source: StoolSp ecimen Site: Nonpreser emeka Astrovirus PCR (test Not Detected code = 4790) Campylobacter PCR Not Detected (test code = 7114) Clostridioides Not Detected difficile PCR (test code = 7115) Cryptosporidium PCR Not Detected (test code = 7116) Cyclospora Not Detected cayetanensis PCR (test code = 7117) Enteroaggregative E Not Detected coli PCR (test code = 4784) Entamoeba histolytica Not Detected PCR (test code = 7118) Enteroinvasive E coli Not Detected PCR (test code = 4788) Enteropathogenic E Not Detected coli PCR (test code = 4785) Norovirus PCR (test Not Detected code = 7119) Plesiomonas Not Detected shigelloides PCR (test code = 4782) Rotavirus PCR (test Not Detected code = 7733825) Salmonella PCR (test Not Detected code = 4783) Sapovirus PCR (test Not Detected code = 4791) Enterotoxigenic E coli Not Detected PCR (test code = 4786) Shigatoxin producing E Not Detected coli PCR (test code = 4787) E coli O157 PCR (test Not Reported code = 7120) Vibrio PCR (test code Not Detected = 7121) Vibrio cholerae PCR Not Detected (test code = 7122) Yersinia Not Detected enterocolitica PCR (test code = 7123) Giardia lamblia PCR Not Detected (test code = 7124) [place] MethodistCRP high [id number] 22:25:02 Test Item Value Reference Range 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 Comments CRP, high 0.91 mg/L Please note thi s test is sensitivity (test different from the code = 96319-5) C-Reactive P rotein (CRP) assay. CRP is a nonspecific mar ker of inflammation an d its levels rise in the presence of con ditions such as infecti on and inflammatory di sorders. Persistent low levels of CRP can be jessica ured with a high-sensitiv ity assay (hsCRP) and ar e associated with increased risks for atherosclerotic diseases.High-S ensitivit y CRP (hsCRP) r esults are used to ass ign risk for stroke, acu te myocardial infa rction and peripheral vascular disease as foll ows:Low risk: < 1.00 mg /LAverage risk: 1.00 - 3. 00 mg/LHigh risk: > 3.00 - 10.00 mg/LIndet erminate: > 10.00 mg/L * *May be indicative of a nother source of infla mmation or infection Nadir MethodistSedimentation [id number] 18:00:33 Test Item Value Reference Range 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 Comments Sedimentation rate (test code = 10 0- 20 mm/hr 99245-9) [place] MethodistComprehensive metabolic [id number] 05:52:23 Test Item Value Reference Range 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 Comments Sodium (test code = 2951-2) 140 135- 148 mEq/L Potassium (test code = 2823-3) 4.4 3.5- 5.0 mEq/L Chloride (test code = 2075-0) 103 98- 112 mEq/L CO2 (test code = 2027-9) 25 24- 31 mEq/L Anion gap (test code = 52230-0) 12@ANIO 7- 15 mEq/L BUN (test code = 3094-0) 9 mg/dL 8-23 Creatinine (test code = 2160-0) 0.68 mg/dL 0.5-0.9 Glucose (test code = 2345-7) 121 mg/dL 65-99 H Calcium (test code = 95093-9) 9.4 mg/dL 8.8-10.2 Protein (test code = 2885-2) 6.7 g/dL 6.3-8.3 Albumin (test code = 1751-7) 4.0 g/dL 3.5-5 A/G ratio (test code = 1759-0) 1.5 0.7-3.8 Alkaline phosphatase (test code = 96 U/L 35-104 68-6) AST (test code = 1920-8) 25 U/L 10-35 ALT (test code = 1742-6) 16 U/L 5-50 Total bilirubin (test code = <0.2 0.2-1.2 1974-11) Lab 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 (test code = Abnormal 01807-8) Nadir Bates
[2020-09-03 01:34] LABS: Absolute Lymphocytes (CBC) 1.9 K/uL (0.7-4.9); Basophils % 2.1 % (0-1.3); Hematocrit 34.9 % (36.0-45.0); Lymphocytes % 35.2 % (15.3-44.8); MPV 10.4 fL (7.6-11.3); RBC Red Blood Cell Count 3.74 M/uL (3.86-4.86)
[2020-09-03 01:38] LABS: Protime INR 0.95
[2020-09-03] MEDS ORDERED: NA CHLORIDE 0.9% 0 ML ONE (01:47)
[2020-09-03] MEDS ORDERED: FAMOTIDINE 20 MG/2 ML VIAL IV ONE (01:47)
[2020-09-03] MEDS ORDERED: METRONIDAZOLE 500mg IVPB 500 MG/100 ML BAG IV ONE (01:48)
[2020-09-03] MEDS ORDERED: CIPROFLOXACIN 400mg IV 400 MG/200 ML BAG IV ONE (01:48)
[2020-09-03] MEDS ORDERED: NA CHLORIDE 0.9% 1,000 ML ONE (01:48)
[2020-09-03 01:55] LABS: ALT/SGPT 27 U/L (12-78); AST/SGOT 23 U/L (15-37); Alkaline Phosphatase 98 U/L (45-117); BUN Blood Urea Nitrogen 11 mg/dL (7-18); Bicarbonate 30 mmol/L (21-32); Bilirubin Direct 0.1 mg/dL (0-0.2); Bilirubin Total 0.3 mg/dL (0.2-1.0); Glucose Level 90 mg/dL (74-106); Lipase 170 U/L (73-393); Magnesium 2.3 mg/dL (1.8-2.4); NT PRO-BNP 106 pg/mL (<125); Potassium 3.3 mmol/L (3.5-5.1); Protein, Total 7.1 g/dL (6.4-8.2); Sodium Level 132 mmol/L (136-145); Troponin (Emerg Dept Use Only) < 0.02 ng/mL (0.0-0.045)
[2020-09-03] MEDS ORDERED: NS KCL 20MEQ 1,000 ML IV ONE (02:41)
[2020-09-03] MEDS ORDERED: MORPHINE 4 MG/ML SYR ONE ×2 (02:41→05:19)
[2020-09-03] MEDS ORDERED: ONDANSETRON 4 MG/2 ML VIAL ONE (02:41)
[2020-09-03 02:46] LABS: Urine Blood NEGATIVE (NEG); Urine Glucose NEGATIVE (NEG); Urine Protein NEGATIVE (NEG); Urine Specific Gravity 1.015 (1.005-1.030); Urine pH 7.5 (5.0-7.0)
--- NOTE | 2020-09-03 04:05 | ER ---
Nurse's Notes [facility] Name: Chica Flores Age: 65 yrs Sex: Female : 1955 Arrival Date: 09/03/2020 Time: 00:50 Bed 7 Private MD: Reuben Yates H Diagnosis: Abdominal tenderness;Left sided colitis with rectal bleeding-stable;Hypokalemia;Other ulcerative colitis-history;Constipation Presentation: 09/03 00:55 Chief complaint: EMS states: ems toned out after a bloody stool with pus, pt states she ll2 has a HX of ulcerative colitis since early this flare up began 3 days ago. pt states also has a hx of neuropathy, is allergic to oral steroids and penicillin. Coronavirus screen: Client denies travel out of the [place] in the last 14 days. At this time, the client does not indicate any symptoms associated with coronavirus-19. Ebola Screen: Patient negative for fever greater than or equal to 101.5 degrees Fahrenheit, and additional compatible Ebola Virus Disease symptoms. 00:55 Method Of Arrival: EMS: [facility] ll2 01:00 Acuity: ANITA 3 jb4 01:00 Onset of symptoms was September 03, 2020. Transition of care: patient was not received jb4 from another setting of care. 01:10 Initial Sepsis Screen: Does the patient meet any 2 criteria? No. Patient's initial jb4 sepsis screen is negative. Does the patient have a suspected source of infection? No. Patient's initial sepsis screen is negative. Risk Assessment: Do you want to hurt yourself or someone else? Patient reports no desire to harm self or others. Triage Assessment: 01:04 General: Appears in no apparent distress. uncomfortable, Behavior is calm, cooperative, ll2 appropriate for age. Pain: Complains of pain in abdomen. EENT: No signs and/or symptoms were reported regarding the EENT system. Neuro: Level of Consciousness is awake, alert, obeys commands, Oriented to person, place, time, situation. Cardiovascular: Patient's skin is warm and dry. Respiratory: Airway is patent Respiratory effort is even, unlabored, Respiratory pattern is regular, symmetrical. GI:. : No signs and/or symptoms were reported regarding the genitourinary system. Derm: Skin is intact, is healthy with good turgor, Skin is pink, warm \T\ dry. Musculoskeletal: Circulation, motion, and sensation intact. Range of motion: intact in all extremities. Historical: - Allergies: 01:10 PENICILLINS; jb4 01:10 steroids; Allergy to Oral Steroids, IV is fine; jb4 - Home Meds: 01:10 Prozac 40 mg Oral cap 1 cap once daily [Active]; Xanax 2 mg Oral tab 1 tab 3 times per jb4 day [Active]; - PMHx: 01:10 Anxiety; Colitis; Depression; Osteoporosis; PTSD; ulcerative ulcer; ADD/ADHD; jb4 - Immunization history:: Adult Immunizations up to date. - Social history:: Smoking status: unknown. - Family history:: not pertinent. Screenin:00 Abuse screen: Denies threats or abuse. Nutritional screening: No deficits noted. jb4 Tuberculosis screening: No symptoms or risk factors identified. Fall Risk None identified. Assessment: 01:54 Reassessment: see triage assessment. ll2 02:00 Reassessment: Patient appears in no apparent distress at this time. Patient and/or jb4 family updated on plan of care and expected duration. Pain level reassessed. Patient is alert, oriented x 3, equal unlabored respirations, skin warm/dry/pink. 03:00 Reassessment: Patient appears in no apparent distress at this time. Patient and/or jb4 family updated on plan of care and expected duration. Pain level reassessed. Patient is alert, oriented x 3, equal unlabored respirations, skin warm/dry/pink. 04:00 Reassessment: Patient appears in no apparent distress at this time. Patient and/or jb4 family updated on plan of care and expected duration. Pain level reassessed. Patient is alert, oriented x 3, equal unlabored respirations, skin warm/dry/pink. 04:47 Reassessment: Patient appears in no apparent distress at this time. Patient and/or jb4 family updated on plan of care and expected duration. Pain level reassessed. Patient is alert, oriented x 3, equal unlabored respirations, skin warm/dry/pink. 05:24 Reassessment: Patient appears in no apparent distress at this time. Patient and/or jb4 family updated on plan of care and expected duration. Pain level reassessed. Patient is alert, oriented x 3, equal unlabored respirations, skin warm/dry/pink. Vital Signs: 00:55 BP 145 / 67; Pulse 66; Resp 18; Pulse Ox 100% on R/A; ll2 03:20 BP 139 / 84; Pulse 71; Resp 16; Temp 97.2(TE); Pulse Ox 100% on R/A; jb4 04:00 BP 132 / 75; Pulse 59; Resp 16; Pulse Ox 100% on R/A; jb4 05:00 BP 148 / 65; Pulse 67; Resp 16; Pulse Ox 100% on R/A; jb4 ED Course: 00:50 Patient arrived in ED. sg 00:50 Reuben Yates MD is Private Physician. sg 00:54 Jessica Farley, ROBERT is Primary Nurse. ll2 00:57 Geovanni March MD is Attending Physician. wen 01:00 Patient has correct armband on for positive identification. Bed in low position. Call jb4 light in reach. Side rails up X 1. Pulse ox on. NIBP on. 01:20 Initial lab(s) drawn, by me, sent to lab. Inserted saline lock: 18 gauge in right jb4 forearm, using aseptic technique. Blood collected. 01:40 XRAY Chest (1 view) In Process Unspecified. EDMS 03:09 CT Abd/Pelvis - IV Contrast Only In Process Unspecified. EDMS 03:11 Triage completed. jb4 03:26 Saurabh Spencer, RN is Primary Nurse. jb4 04:02 Jude Gomez MD is Hospitalizing Provider. wen 04:45 [place] cath inserted, using sterile technique, 18 Fr., by fl, balloon inflated, to jb4 gravity drainage, returned clear yellow urine. Patient tolerated well. 05:25 No provider procedures requiring assistance completed. Patient admitted, IV remains in jb4 place. Administered Medications: 01:45 Drug: Pepcid 20 mg Route: IVP; Site: right forearm; jb4 02:15 Follow up: Response: No adverse reaction jb4 01:46 Drug: NS 0.9% 1000 ml Route: IV; Rate: 1 bolus; Site: right forearm; jb4 02:45 Follow up: Response: No adverse reaction; IV Status: Completed infusion; IV Intake: jb4 1000ml 01:46 Drug: Flagyl 500 mg Volume: 100 ml; Route: IVPB; Rate: 200 ml/hr; Infused Over: 30 jb4 mins; Site: right forearm; 02:16 Follow up: Response: No adverse reaction; IV Status: Completed infusion; IV Intake: jb4 100ml 02:24 Not Given (Duplicate Order): NS 0.9% 1000 ml IV at 125 ml/hr continuous wen 02:24 Not Given (Duplicate Order): morphine 4 mg IVP once; RASS on ADMIN: Combtv4, Very jb4 Agttd3, Agttd2, Rstlss1, AlertClm0, Drwsy-1, Lt Sdtn-2, Mod Sdtn-3, Dp Sdtn-4, UnArsble-5 02:32 Drug: NS 0.9% with KCl 20 mEq/L 1000 ml Route: IV; Rate: 125 ml/hr; Site: right wrist; 4 05:27 Follow up: Response: No adverse reaction; IV Status: Infusion continued upon admission 4 02:33 Drug: morphine 4 mg {Note: rass 0.} Route: IVP; Site: right wrist; 4 03:00 Follow up: Response: No adverse reaction; Pain is decreased; RASS: Alert and Calm (0) jb4 02:33 Drug: Zofran (Ondansetron) 4 mg Route: IVP; Site: right wrist; jb4 03:00 Follow up: Response: No adverse reaction 4 03:20 Drug: Cipro 400 mg Volume: 200 ml; Route: IVPB; Infused Over: 60 mins; Site: right jb4 forearm; 04:20 Follow up: Response: No adverse reaction; IV Status: Completed infusion; IV Intake: jb4 200ml 04:20 Drug: SOLU-Medrol 125 mg Route: IVP; Site: right forearm; jb4 05:27 Follow up: Response: No adverse reaction 4 05:00 Drug: Dulcolax Suppository 10 mg Route: HI; jb4 05:26 Follow up: Response: No adverse reaction jb4 05:11 Drug: Lactulose 30 grams Volume: 45 ml; Route: PO; 4 05:26 Follow up: Response: No adverse reaction jb4 05:11 Drug: morphine 4 mg Route: IVP; Site: right forearm; jb4 05:26 Follow up: Response: No adverse reaction; Pain is decreased; RASS: Alert and Calm (0) jb4 Intake: 02:16 IV: 100ml; Total: 100ml. jb4 02:45 IV: 1000ml; Total: 1100ml. jb4 04:20 IV: 200ml; Total: 1300ml. jb4 Outcome: 04:05 Decision to Hospitalize by Provider. wen 05:25 Admitted to Med/surg accompanied by tech, via stretcher, room 217, Report called to deloris Jaimes RN 05:25 Condition: stable 05:25 Discharge instructions given to patient, Instructed on the need for admit, Demonstrated understanding of instructions. 05:30 Patient left the ED. jb4 Signatures: Dispatcher [employer] EDMS Anthony Montiel, RN Geovanni Simpson MD MD cha Bryson, James RN RN jbJessica Dominique, ROBERT RN ll2 Corrections: (The following items were deleted from the chart) 03:13 02:45 Cipro 400 mg 200 ml IVPB in right forearm over 60 mins 200 ml jb4 jb4
--- NOTE | 2020-09-03 04:05 | EDPHYS ---
Physician Documentation [facility] Name: Chica Flores Age: 65 yrs Sex: Female : 1955 Arrival Date: 09/03/2020 Time: 00:50 Bed 7 Private MD: Reuben Yates H ED Physician Geovanni March HPI: 09/03 01:15 This 65 yrs old Female presents to ER via EMS with complaints of Bloody wen Stools. 01:15 The patient presents with abdominal pain in the upper abdomen, in the lower abdomen. wen Onset: The symptoms/episode began/occurred 3 day(s) ago. The patient presents to the emergency department with rectal bleeding, a small amount. Onset: The symptoms/episode began/occurred 2 day(s) ago. Abdominal pain: described as constant, crampy, located in the right lower quadrant and left lower quadrant. Modifying factors: The symptoms are alleviated by nothing, the symptoms are aggravated by nothing. Associated signs and symptoms: The patient has no apparent associated signs or symptoms. The symptoms do not radiate. Associated signs and symptoms: none. Modifying factors: The symptoms are alleviated by nothing, the symptoms are aggravated by nothing. Historical: - Allergies: 01:10 PENICILLINS; jb4 01:10 steroids; Allergy to Oral Steroids, IV is fine; jb4 - Home Meds: 01:10 Prozac 40 mg Oral cap 1 cap once daily [Active]; Xanax 2 mg Oral tab 1 tab 3 times per jb4 day [Active]; - PMHx: 01:10 Anxiety; Colitis; Depression; Osteoporosis; PTSD; ulcerative ulcer; ADD/ADHD; jb4 - Immunization history:: Adult Immunizations up to date. - Social history:: Smoking status: unknown. - Family history:: not pertinent. ROS: 01:15 Constitutional: Negative for fever, chills, and weight loss, Eyes: Negative for injury, wen pain, redness, and discharge, ENT: Negative for injury, pain, and discharge, Neck: Negative for injury, pain, and swelling, Cardiovascular: Negative for chest pain, palpitations, and edema, Respiratory: Negative for shortness of breath, cough, wheezing, and pleuritic chest pain, Back: Negative for injury and pain, : Negative for injury, bleeding, discharge, and swelling, MS/Extremity: Negative for injury and deformity, Skin: Negative for injury, rash, and discoloration, Neuro: Negative for headache, weakness, numbness, tingling, and seizure, Psych: Negative for depression, anxiety, suicide ideation, homicidal ideation, and hallucinations, Allergy/Immunology: Negative for hives, rash, and allergies, Endocrine: Negative for neck swelling, polydipsia, polyuria, polyphagia, and marked weight changes, Hematologic/Lymphatic: Negative for swollen nodes, abnormal bleeding, and unusual bruising. 01:15 Abdomen/GI: Positive for abdominal pain, rectal bleeding. Exam: 01:15 Constitutional: This is a well developed, well nourished patient who is awake, alert, wen and in no acute distress. Head/Face: Normocephalic, atraumatic. Eyes: Pupils equal round and reactive to light, extra-ocular motions intact. Lids and lashes normal. Conjunctiva and sclera are non-icteric and not injected. Cornea within normal limits. Periorbital areas with no swelling, redness, or edema. ENT: Nares patent. No nasal discharge, no septal abnormalities noted. Tympanic membranes are normal and external auditory canals are clear. Oropharynx with no redness, swelling, or masses, exudates, or evidence of obstruction, uvula midline. Mucous membranes moist. Neck: Trachea midline, no thyromegaly or masses palpated, and no cervical lymphadenopathy. Supple, full range of motion without nuchal rigidity, or vertebral point tenderness. No Meningismus. Chest/axilla: Normal chest wall appearance and motion. Nontender with no deformity. No lesions are appreciated. Cardiovascular: Regular rate and rhythm with a normal S1 and S2. No gallops, murmurs, or rubs. Normal PMI, no JVD. No pulse deficits. Respiratory: Lungs have equal breath sounds bilaterally, clear to auscultation and percussion. No rales, rhonchi or wheezes noted. No increased work of breathing, no retractions or nasal flaring. Back: No spinal tenderness. No costovertebral tenderness. Full range of motion. Female : Normal external genitalia. Skin: Warm, dry with normal turgor. Normal color with no rashes, no lesions, and no evidence of cellulitis. MS/ Extremity: Pulses equal, no cyanosis. Neurovascular intact. Full, normal range of motion. Neuro: Awake and alert, GCS 15, oriented to person, place, time, and situation. Cranial nerves II-XII grossly intact. Motor strength 5/5 in all extremities. Sensory grossly intact. Cerebellar exam normal. Normal gait. Psych: Awake, alert, with orientation to person, place and time. Behavior, mood, and affect are within normal limits. 01:15 Abdomen/GI: Inspection: abdomen appears normal, Bowel sounds: active, Palpation: mild abdominal tenderness, moderate abdominal tenderness, in all quadrants, Rectal exam: is unremarkable, rectal tone normal, Stool: guaiac negative, hemorrhoid(s), are not appreciated, mass, is not appreciated, swelling, that is mild, tenderness, is not appreciated, Liver: no appreciated palpable abnormalities, Hernia: not appreciated. Vital Signs: 00:55 BP 145 / 67; Pulse 66; Resp 18; Pulse Ox 100% on R/A; ll2 03:20 BP 139 / 84; Pulse 71; Resp 16; Temp 97.2(TE); Pulse Ox 100% on R/A; jb4 04:00 BP 132 / 75; Pulse 59; Resp 16; Pulse Ox 100% on R/A; jb4 05:00 BP 148 / 65; Pulse 67; Resp 16; Pulse Ox 100% on R/A; jb4 MDM: 00:58 Patient medically screened. [facility] 01:18 Differential diagnosis: gastritis, diverticulitis, bowel obstruction, cholecystitis, wen Cholelithiasis, diverticulitis, gastritis, GI Bleed, Hepatitis, Mesenteric ischemia or infarction, non-specific abd pain, pancreatitis, Peptic Ulcer Disease, Pyelonephritis, urinary tract infection. Data reviewed: vital signs, nurses notes, lab test result(s), EKG, radiologic studies. Data interpreted: bracelet maker novelty: rate is 66 beats/min, rhythm is regular, Pulse oximetry: is not applicable for this patient encounter. Test interpretation: by ED physician or midlevel provider: ECG, plain radiologic studies. Counseling: I had a detailed discussion with the patient and/or guardian regarding: the historical points, exam findings, and any diagnostic results supporting the discharge/admit diagnosis, lab results, radiology results, the need for further work-up and treatment in the hospital. 09/03 01: Order name: Basic Metabolic Panel [facility] 09/03 01: Order name: CBC with Diff [facility] 11/28 01:06 Order name: LFT's; Complete Time: 02:23 [facility] 09/03 01:06 Order name: Magnesium; Complete Time: 02:23 [facility] 09/03 01:06 Order name: NT PRO-BNP; Complete Time: 02:23 [facility] 09/03 01:06 Order name: PT-INR; Complete Time: 01:49 [facility] 09/03 01:06 Order name: Troponin (emerg Dept Use Only); Complete Time: 02:23 [facility] 09/03 01:06 Order name: Lipase; Complete Time: 02:23 [facility] 09/03 01:06 Order name: Urine Culture [facility] 09/03 01:06 Order name: Type And Screen; Complete Time: 02:23 [facility] 09/03 01:06 Order name: Basic Metabolic Panel; Complete Time: 02:23 [facility] 09/03 01:06 Order name: CBC with Automated Diff; Complete Time: 01:49 [facility] 09/03 01:49 Order name: Lactate; Complete Time: 05:01 [facility] 09/03 02:44 Order name: Urine Dipstick--Ancillary (enter results); Complete Time: 02:48 [facility] 09/03 01:06 Order name: XRAY Chest (1 view) [facility] 09/03 01:06 Order name: EKG; Complete Time: 01:07 [facility] 09/03 01:06 Order name: CT Abd/Pelvis - IV Contrast Only [facility] 09/03 01:06 Order name: Cardiac monitoring; Complete Time: 02:27 [facility] 09/03 01:06 Order name: EKG - Nurse/Tech; Complete Time: 02:27 [facility] 09/03 01:06 Order name: IV Saline Lock; Complete Time: 01:27 [facility] 09/03 01:06 Order name: Labs collected and sent; Complete Time: 01:27 [facility] 09/03 01:06 Order name: O2 Per Protocol; Complete Time: 01:27 [facility] 09/03 01:06 Order name: O2 Sat Monitoring; Complete Time: 01: [facility] 09/03 01:06 Order name: Urine Dipstick-Ancillary (obtain specimen); Complete Time: 03:09 [facility] 09/03 03:59 Order name: [place]; Complete Time: 04:45 [facility] Administered Medications: 01:45 Drug: Pepcid 20 mg Route: IVP; Site: right forearm; jb4 02:15 Follow up: Response: No adverse reaction jb4 01:46 Drug: NS 0.9% 1000 ml Route: IV; Rate: 1 bolus; Site: right forearm; jb4 02:45 Follow up: Response: No adverse reaction; IV Status: Completed infusion; IV Intake: jb4 1000ml 01:46 Drug: Flagyl 500 mg Volume: 100 ml; Route: IVPB; Rate: 200 ml/hr; Infused Over: 30 jb4 mins; Site: right forearm; 02:16 Follow up: Response: No adverse reaction; IV Status: Completed infusion; IV Intake: jb4 100ml 02:24 Not Given (Duplicate Order): NS 0.9% 1000 ml IV at 125 ml/hr continuous wen 02:24 Not Given (Duplicate Order): morphine 4 mg IVP once; RASS on ADMIN: Combtv4, Very jb4 Agttd3, Agttd2, Rstlss1, AlertClm0, Drwsy-1, Lt Sdtn-2, Mod Sdtn-3, Dp Sdtn-4, UnArsble-5 02:32 Drug: NS 0.9% with KCl 20 mEq/L 1000 ml Route: IV; Rate: 125 ml/hr; Site: right wrist; jb4 05:27 Follow up: Response: No adverse reaction; IV Status: Infusion continued upon admission jb4 02:33 Drug: morphine 4 mg {Note: rass 0.} Route: IVP; Site: right wrist; jb4 03:00 Follow up: Response: No adverse reaction; Pain is decreased; RASS: Alert and Calm (0) jb4 02:33 Drug: Zofran (Ondansetron) 4 mg Route: IVP; Site: right wrist; jb4 03:00 Follow up: Response: No adverse reaction jb4 03:20 Drug: Cipro 400 mg Volume: 200 ml; Route: IVPB; Infused Over: 60 mins; Site: right jb4 forearm; 04:20 Follow up: Response: No adverse reaction; IV Status: Completed infusion; IV Intake: jb4 200ml 04:20 Drug: SOLU-Medrol 125 mg Route: IVP; Site: right forearm; jb4 05:27 Follow up: Response: No adverse reaction jb4 05:00 Drug: Dulcolax Suppository 10 mg Route: CO; jb4 05:26 Follow up: Response: No adverse reaction jb4 05:11 Drug: Lactulose 30 grams Volume: 45 ml; Route: PO; 05:26 Follow up: Response: No adverse reaction [facility] 05:11 Drug: morphine 4 mg Route: IVP; Site: right forearm; 05:26 Follow up: Response: No adverse reaction; Pain is decreased; RASS: Alert and Calm (0) jb4 Disposition: 09/03/20 04:05 Hospitalization ordered by Jude Gomez for Inpatient Admission. Preliminary diagnosis are Abdominal tenderness, Left sided colitis with rectal bleeding - stable, Hypokalemia, Other ulcerative colitis - history, Constipation. - Bed requested for Telemetry/MedSurg (Inpatient). - Status is Inpatient Admission. jb4 - Condition is Fair. - Problem is new. - Symptoms have improved. Signatures: Dispatcher [employer] EDMS Marva Rod RN RN mw Anderson, Corey, MD MD cha Bryson, James, RN RN jb Ronak Harding RN RN rv Corrections: (The following items were deleted from the chart) 04:06 04:05 Hospitalization Ordered by Jude Gomez MD for Inpatient Admission. Preliminary [facility] diagnosis is Abdominal tenderness; Left sided colitis with rectal bleeding - stable; Hypokalemia; Other ulcerative colitis - history. Bed requested for Telemetry/MedSurg (Inpatient). Status is Inpatient Admission. Condition is Fair. Problem is new. Symptoms have improved. [facility] 04:39 04:06 09/03/2020 04:05 Hospitalization Ordered by Jude Gomez MD for Inpatient Admission. Preliminary diagnosis is Abdominal tenderness; Left sided colitis with rectal bleeding - stable; Hypokalemia; Other ulcerative colitis - history; Constipation. Bed requested for Telemetry/MedSurg (Inpatient). Status is Inpatient Admission. Condition is Fair. Problem is new. Symptoms have improved. [facility] 05:30 04:39 09/03/2020 04:05 Hospitalization Ordered by Jude Gomez MD for Inpatient jb4 Admission. Preliminary diagnosis is Abdominal tenderness; Left sided colitis with rectal bleeding - stable; Hypokalemia; Other ulcerative colitis - history; Constipation. Bed requested for Telemetry/MedSurg (Inpatient). Status is Inpatient Admission. Condition is Fair. Problem is new. Symptoms have improved.
[2020-09-03] MEDS ORDERED: METHYLPREDNISOLONE 125 MG INJ ONE (04:22)
[2020-09-03] MEDS ORDERED: BISACODYL 10 MG RECTAL SUPP ONE (05:08)
[2020-09-03] MEDS ORDERED: LACTULOSE 20 GM/30 ML UCUP ONE (05:19)
[2020-09-03] MEDS ORDERED: ONDANSETRON 4 MG/2 ML VIAL IV PRN (05:48)
[2020-09-03] MEDS ORDERED: MORPHINE 4 MG/ML SYR IV PRN (05:48)
[2020-09-03] MEDS ORDERED: BISACODYL 10 MG RECTAL SUPP PR PRN (05:48)
[2020-09-03 06:02] VITALS: BMI 16.6
[2020-09-03] MEDS: D5 0.45 NS 1,000 ML IV SCH ×3 (06:31→21:12)
[2020-09-03] MEDS: METRONIDAZOLE 500mg IVPB 500 MG/100 ML BAG IV SCH ×3 (06:33→18:05)
[2020-09-03] MEDS ORDERED: METHYLPREDNISOLONE 40 MG INJ IV SCH (09:00)
[2020-09-03] MEDS: CIPROFLOXACIN 400mg IV 400 MG/200 ML BAG IV SCH ×2 (09:08→21:12)
[2020-09-03] MEDS: LACTULOSE 20 GM/30 ML UCUP PO SCH ×2 (09:08→21:13)
[2020-09-03] MEDS: ACETAMINOPHEN 325 MG TABLET PO PRN ×2 (09:09→18:04)
[2020-09-03] MEDS: lisinopriL 20 MG TAB PO SCH (09:09)
[2020-09-03] MEDS: FAMOTIDINE 20 MG/2 ML VIAL IV SCH ×2 (09:09→21:20)
[2020-09-03] MEDS: FLUOXETINE 20 MG CAP PO SCH (09:09)
[2020-09-03] MEDS: ALPRAZOLAM 1 MG TABLET PO SCH ×3 (09:09→21:13)
[2020-09-03] MEDS: GABAPENTIN 300 MG CAP PO SCH ×3 (09:09→21:19)
--- NOTE | 2020-09-03 12:24 | RAD REPORT ---
EXAM DESCRIPTION: RAD - Chest Single View - 09/03/2020 1:41 am CLINICAL HISTORY: ABDOMINAL DISTENTION Chest pain. COMPARISON: Chest Single View dated 12/28/2018; Chest Single View dated 12/26/2017; Chest Single View dated 09/13/2016; Chest Single View dated 05/15/2016 FINDINGS: Portable technique limits examination quality. The lungs are emphysematous but grossly clear. The heart is normal in size. No displaced fractures. IMPRESSION: Prominent COPD.
--- NOTE | 2020-09-03 15:09 | P.SSS ---
Patient History Date of Service: 09/03/20 Reason for admission: ABDOMEN PAIN AND BLEEDING PER RECTUM History of Present Illness: MS. GALLOWAY HAS HAD HISTORY OF ULCERATIVE COLLITIS PROVEN BY DR. REYNA AND DR. GIBBONS ABOUT 15 YEARS AGO. I TOOK CARE OF HER AT THAT TIME. BECAUSE OF LACK OF INSURANCE AT THAT TIME SHE WENT TO SOME OTHER PA CLINIC AND SHE WAS AT THAT TIME ON 0.25 MG XANAX FOR ANXIETY AND NOW SHE IS ON 2 MG PO TID FROM DR. HERNANDEZ'S PAS. SHE CAME TO MY OFFICE AFTER BEING AWAY FOR YEARS DR. HERNANDEZ'S OFFICE COULD NOT GIVE HER XANAX ANY LONGER FOR SOME REASON. I TOLD HER FROM DAY ONE THAT I CAN'T GIVE THIS MUCH XANAX. SHE HAS TO TAPER IT OR FIND A PSYCHIATRIST. SHE UNDERSTAND THAT. SHE KEEPS ON SAYING SHE CAN'T AFFORD TO GO TO PSYCHIATRIST OR GI DOCTOR SHE HAS HIGH DEDUCTIBLE OF 2200. SHE CAME TO ER COMPLAINING OF PAIN IN ABDOMEN AND LOWER GI BLEED BUT DR. HOBBS WHO DID RECTAL EXAM DID NOT FIND ANY BLOOD. HE DECIDED TO ADMIT HER ANYWAY. NOW SHE IS ASKING FOR IV PAIN MEDICINE BUT WHEN I EXAMINED HER WHILE DISTRACTING HER THERE WAS NO ABDOMEN TENDERNESS. NOW THAT SHE IS IN HOSPITAL SHE WILL STAY OVERNIGHT AND GO HOME IN AM. Allergies ceftriaxone sodium [From Rocephin] Allergy (Intermediate, Verified 11/07/12 09:26) Hives Penicillins Allergy (Intermediate, Verified 11/23/11 06:11) Hives/Rash naltrexone Allergy (Verified 09/03/20 05:58) Rash prednisone Allergy (Verified 09/03/20 05:59) Rash aripiprazole [From Abilify] Adverse Reaction (Verified 09/03/20 05:58) hallucination oral steroids Allergy (Uncoded 10/01/14 05:33) Rash Home Medications: Fluoxetine HCl [Prozac] 80 mg PO DAILY 11/05/12 Alprazolam [Xanax] 2 mg PO TID 12/18/13 Gabapentin 300 mg PO TID 09/03/20 Lisinopril [Zestril] 40 mg PO DAILY 09/03/20 - Past Medical/Surgical History Has patient received pneumonia vaccine in the past: Yes Diabetic: No -: History of seizure disorder -: colitis -: PTSD -: depression -: OCD -: Bilateral eye surgery -: tonsillectomy - Family History Brother -: Cancer Notes: brain ca. uncle colon cancer Father -: Heart disease Mother -: Other (see notes) Notes: thyroid and throat cancer - Social History Smoking Status: Never smoker Alcohol use: No CD- Drugs: No Caffeine use: Yes Review of Systems 10-point ROS is otherwise unremarkable Physical Examination - Vital Signs Temperature: 97.8 F Blood Pressure: 112/60 Pulse: 70 Respirations: 17 Pulse Ox (%): 98 - Physical Exam General: In no apparent distress, Cachectic (FRAIL) HEENT: Atraumatic, PERRLA, Mucous membr. moist/pink, EOMI, Sclerae nonicteric Neck: Supple, 2+ carotid pulse no bruit, No LAD, Without JVD or thyroid abnormality Respiratory: Clear to auscultation bilaterally, Normal air movement Cardiovascular: Regular rate/rhythm, Normal S1 S2 Gastrointestinal: Normal bowel sounds, No tenderness Musculoskeletal: No tenderness Integumentary: No rashes Neurological: Normal gait, Normal speech, Normal strength at 5/5 x4 extr, Normal tone, Normal affect Lymphatics: No axilla or inguinal lymphadenopathy - Studies Laboratory Data (last 24 hrs) 09/03/20 01:20: PT 11.2, INR 0.95 09/03/20 01:20: WBC 5.5, Hgb 11.8 L, Hct 34.9 L, Plt Count 219 09/03/20 01:20: Sodium 132 L, Potassium 3.3 L, BUN 11, Creatinine 0.67, Glucose 90, Magnesium 2.3, Total Bilirubin 0.3, AST 23, ALT 27, Alkaline Phosphatase 98, Lipase 170 - Diagnosis (Problem(s)) (1) History of ulcerative colitis Current Visit: Yes Status: Chronic Plan: SHE HAS HISTORY BUT THERE IS NO BLEEDING AT PRESENT. THERE IS NO PAIN. HISTORY IS UNRELIABLE. SHE NEEDS TO FU WITH GI DOCTOR ON OP BASIS. (2) Benzodiazepine abuse Current Visit: Yes Status: Chronic Plan: HPI, I WILL NOT BE ABLE GIVE HER HIGH DOSE OF XANAX. I TRIED ABILIFY IN ADDITION TO CELEXA BUT SHE DID NOT LIKE IT. SHE WILL FIND A PSYCHIATRIST OR A NEW PCP WHO CAN GIVE HER SUCH HIGH DOSE. SHE DOES NOT BELIEVE SHE HAS A PROBLEM. - Disposition Disposition: ROUTINE DISCHARGE
[2020-09-03] MEDS: TRAMADOL HCL 50 MG TAB PO PRN (21:18)
[2020-09-04] MEDS: METRONIDAZOLE 500mg IVPB 500 MG/100 ML BAG IV SCH ×3 (01:31→11:54)
[2020-09-04] MEDS: ACETAMINOPHEN 325 MG TABLET PO PRN ×2 (01:51→07:36)
[2020-09-04 02:19] VITALS: O2SAT 99
[2020-09-04] MEDS: TRAMADOL HCL 50 MG TAB PO PRN ×2 (05:39→11:12)
[2020-09-04] MEDS: D5 0.45 NS 1,000 ML IV SCH ×2 (05:48→08:39)
[2020-09-04 06:26] LABS: Absolute Lymphocytes (CBC) 1.5 K/uL (0.7-4.9); Basophils % 0.9 % (0-1.3); Hematocrit 31.3 % (36.0-45.0); Lymphocytes % 21.4 % (15.3-44.8); MPV 10.4 fL (7.6-11.3); RBC Red Blood Cell Count 3.31 M/uL (3.86-4.86)
[2020-09-04 06:37] LABS: ALT/SGPT 21 U/L (12-78); AST/SGOT 21 U/L (15-37); Albumin 3.1 g/dL (3.4-5.0); Alkaline Phosphatase 78 U/L (45-117); BUN Blood Urea Nitrogen 4 mg/dL (7-18); Bicarbonate 25 mmol/L (21-32); Bilirubin Direct < 0.1 mg/dL (0-0.2); Bilirubin Total 0.2 mg/dL (0.2-1.0); Glucose Level 88 mg/dL (74-106); Lipase 118 U/L (73-393); Potassium 3.1 mmol/L (3.5-5.1); Protein, Total 5.8 g/dL (6.4-8.2); Sodium Level 138 mmol/L (136-145)
[2020-09-04] MEDS: CIPROFLOXACIN 400mg IV 400 MG/200 ML BAG IV SCH (08:40)
[2020-09-04] MEDS: GABAPENTIN 300 MG CAP PO SCH (08:41)
[2020-09-04] MEDS: FAMOTIDINE 20 MG/2 ML VIAL IV SCH (08:41)
[2020-09-04] MEDS: lisinopriL 20 MG TAB PO SCH (08:41)
[2020-09-04] MEDS: ALPRAZOLAM 1 MG TABLET PO SCH (08:41)
[2020-09-04] MEDS: FLUOXETINE 20 MG CAP PO SCH (08:41)
[2020-09-04 09:00] VITALS: BP 132/69; TEMP 98.7
--- NOTE | 2020-09-05 11:09 | RAD REPORT ---
EXAM DESCRIPTION: CT ABDOMEN AND PELVIS WITH CONTRAST CLINICAL HISTORY: ABD PAIN COMPARISON: 12/29/2018 TECHNIQUE: CT of the abdomen and pelvis performed following IV administration of iodinated contras t. FINDINGS: Lung Bases: The visualized lung bases are clear. Bones: Multilevel degenerative disc height narrowing, endplate spondylosis, and facet arthropathy of the visualized spine. Abdomen: Liver: Hepatomegaly. No intrahepatic biliary dilatation. Gallbladder: No calcified gallstones. Spleen, Pancreas, and Adrenal Glands: The spleen, pancreas, and adrenal glands are unremarkable. Kidneys: No hydronephrosis or obstructing calculus. Vasculature: Aortoiliac atherosclerosis. IVC is unremarkable. The portal vein is patent. The portal vein is dilated. The proximal visceral and renal arteries are patent. Stomach: The stomach and duodenum have normal course. Other: No free intraperitoneal air. No free fluid or lymphadenopathy. Pelvis: Bladder: Urinary bladder is unremarkable. Bowel: No dilated loops of large or small bowel. Long segment wall thickening with adjacent inflamm atory change of the descending and sigmoid colon. Large amount of stool in the colon. Appendix: Not identified. Pelvis: Uterus is not enlarged. IMPRESSION: 1. Findings suggestive of acute nonspecific colitis involving the descending and sigmoid colon which may be of infectious or inflammatory etiology. 2. Hepatomegaly. This exam was performed according to our departmental dose-optimization program, which includes autom ated exposure control, adjustment of the mA and/or kV according to patient size and/or use of iterati ve reconstruction technique. Electronically signed by: Norberto Clark 09/03/2020 3:48 AM DOPE POURER Due to temporary technical issues with the PACS/Fluency reporting system, reports are being signed by the in house radiologist without review as a courtesy to ensure prompt reporting. The interpreting r adiologist is fully responsible for the content of the report.
== END 2020-09-04 12:00 | disposition home or self-care (01) ==
LOC: ER 00:47 → ERHOLD 04:09 → INTOOBSV 04:09 → 2ND 05:20
PROVIDERS: ADMIT Internal Medicine; ATTEND Internal Medicine
DX: K51.90 Ulcerative colitis, unspecified, without complications (principal); F13.10 Sedative, hypnotic or anxiolytic abuse, uncomplicated; R10.9 Unspecified abdominal pain; K62.5 Hemorrhage of anus and rectum; F43.10 Post-traumatic stress disorder, unspecified; Z20.828 Contact with and (suspected) exposure to other viral communicable diseases; F32.9 Major depressive disorder, single episode, unspecified; F42.9 Obsessive-compulsive disorder, unspecified
CPT/HCPCS: 93005 ×2; 87088; 85025 ×2; 87086; 80048 ×2; 36415 ×2; 86900; 83735; 86850; 85610; 86901; 80076 ×2; 83605; 81003; 84484; 83690 ×2; 83880; 74177; 71045; 51702; 99285; U0002; Q9967; J7799 ×3; J7030; J2930; J2405 ×2; J0744 ×4; J3480; G0378

== ENCOUNTER 2020-09-11 00:03 | Emergency (ER) | payer OTHER ==
--- OUTSIDE RECORDS SUMMARY | 2020-09-11 00:05 | XMS REPORT | Clinical Summary ---
:1955 Author Organization [facility] Address [address] [place] [address] Care Team Providers Name Role Phone Marlen [...] Col itis (Primary Dx) 06/22/2020 Medicine MD sAton 06/16/2020 Travel after 09/11/2019 Surgical History Surgery Date Site/Laterality Comments DILATION [...] are i n the results section. after 09/11/2019 Results Estimated GFR (06/22/2020 4:35 AM CDT)Only the most recent of5 resultswithin the time period is included. [facility] Estimated GFR >=90 mL/min/1.73 [facility] Comment: m2 [place] Catergory Units 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 HOS PITAL G1 >=90 [...] Organization Address City/State/ZIP Code Phon e Number [facility] DEPARTMENT OF PATHOLOGY [address] [facility] [place] [address] AND GENOMIC MEDICINE [facility] [address] [facility] [place] [address] HOSPITAL CBC with platelet and differential (06/22/2020 4:35 AM CDT)Only the most recent of5 resultswithin the time period is included. [facility] WBC 9.6 4.5 - 11.0 k/uL [facility] RBC 3.56 (L) 4.20 - 5.50 [facility] m/uL [facility] HGB 11.1 (L) 12.0 - 16.0 [facility] g/dL [facility] HCT 34.4 (L) 37.0 - 47.0 % [facility] MCV 96.6 82.0 - 100.0 fL [facility] MCH 31.2 27.0 - 34.0 pg [facility] MCHC 32.3 31.0 - 37.0 [facility] g/dL [facility] RDW - SD 49.8 37.0 - 55.0 fL [facility] MPV 12.0 (H) 6.9 - 11.0 fL [facility] Platelet count 231 150 - 400 K/uL [facility] Nucleated RBC 0.00 /100 WBC [facility] Neutrophils 86.4 (H) 39.0 - 69.0 % [facility] Lymphocytes 10.0 (L) 25.0 - 45.0 % [facility] Monocytes 2.9 0.0 - 10.0 % [facility] Eosinophils 0.0 0.0 - 5.0 % [facility] Basophils 0.1 0.0 - 1.0 % [facility] Immature granulocytes 0.6 0.0 - 1.0 % [facility] Specimen Blood Performing Organization Address City/[facility]/ZIP Code Phon e Number [facility] DEPARTMENT OF PATHOLOGY [id number] [place] [address] Magnesium level (06/22/2020 4:35 AM CDT) Pathologist Sig nature Magnesium 2.0 1.6 - 2.4 mg/dL [facility] Specimen Blood Performing Organization Address City/[facility]/ZIP Code Phon e Number [facility] DEPARTMENT OF PATHOLOGY [id number] [place] [address] Basic metabolic panel (06/22/2020 4:35 AM CDT)Only the most recent of4 results within the time period is included. Pathologist Sig nature Sodium 140 135 - 148 mEq/L [facility] Potassium 3.7 3.5 - 5.0 mEq/L [facility] Chloride 106 98 - 112 mEq/L [facility] CO2 24 24 - 31 mEq/L [facility] Anion gap 10@ANIO 7 - 15 mEq/L [facility] BUN 4 (L) 8 - 23 mg/dL [facility] Creatinine 0.49 (L) 0.50 - 0.90 mg/dL [facility] Glucose 130 (H) 65 - 99 mg/dL [facility] Calcium 8.9 8.8 - 10.2 mg/dL [facility] Specimen Blood Performing Organization Address City/State/ZIP Code Phon e Number [facility] DEPARTMENT OF PATHOLOGY [address] [facility] [place] [address] AND GENOMIC MEDICINE [facility] [address] [facility] [place] [address] HOSPITAL Gastrointestinal panel (06/18/2020 5:03 PM CDT) Pathologist [facility] Adenovirus 40/41 PCR Not Detected [place] Comment: [facility] Specimen Information HOSPITAL Specimen Source: Stool Specimen Site: Nonpreserved Astrovirus PCR Not Detected [facility] Campylobacter PCR Not Detected [facility] Clostridioides difficile Not Detected [facility] Cryptosporidium PCR Not Detected [facility] Cyclospora cayetanensis Not Detected [facility] Enteroaggregative E coli Not Detected [facility] Entamoeba histolytica Not Detected [facility] Enteroinvasive E coli Not Detected [facility] Enteropathogenic E coli Not Detected [facility] Norovirus PCR Not Detected [facility] Plesiomonas shigelloides Not Detected [facility] Rotavirus PCR Not Detected [facility] Salmonella PCR Not Detected [facility] Sapovirus PCR Not Detected [facility] Enterotoxigenic E coli Not Detected [facility] Shigatoxin producing E Not Detected [place] coli [facility] E coli O157 PCR Not Reported [facility] Vibrio PCR Not Detected [facility] Vibrio cholerae PCR Not Detected [facility] Yersinia enterocolitica Not Detected [facility] Giardia lamblia PCR Not Detected [facility] Specimen Stool - Nonpreserved Performing Organization Address City/State/ZIP Code Phon e Number [facility] DEPARTMENT OF PATHOLOGY AND [address] [place], [place] [address] [address] Fecal calprotectin (06/18/2020 5:03 PM CDT) Fecal calprotectin 1,273.50 (H) <15.6-120 mg/kg [facility] Specimen Blood Performing Organization Address City/[facility]/ZIP [facility] [place] [place] Phon e Number [facility] DEPARTMENT OF PATHOLOGY AND [address] [place] [address] [phone] [address] Sedimentation rate (06/17/2020 5:25 PM CDT) Pathologist Sig nature Sedimentation rate 10 0 - 20 mm/hr [facility] Specimen Blood Performing Organization Address City/[facility] Phon e Number [facility] DEPARTMENT OF PATHOLOGY [address] [facility] [place] [address] AND [facility] [address] [facility] [place] [address] HOSPITAL CRP high sensitivity (06/17/2020 5:25 PM CDT) CRP, high 0.91 mg/L [place] sensitivity Comment: [facility] Please note this test is different from [...] or infection Specimen Blood Performing Organization Address City/[facility] Phon e Number [facility] DEPARTMENT OF PATHOLOGY AND [address] [place] [address] [phone] [address] Comprehensive metabolic panel (06/17/2020 4:44 AM CDT) Pathologist Sig nature Sodium 140 135 - 148 mEq/L [facility] Potassium 4.4 3.5 - 5.0 mEq/L [facility] Chloride 103 98 - 112 mEq/L [facility] CO2 25 24 - 31 mEq/L [facility] Anion gap 12@ANIO 7 - 15 mEq/L [facility] BUN 9 8 - 23 mg/dL [facility] Creatinine 0.68 0.50 - 0.90 [facility] mg/dL [facility] Glucose 121 (H) 65 - 99 mg/dL [facility] Calcium 9.4 8.8 - 10.2 mg/dL [facility] Protein 6.7 6.3 - 8.3 g/dL [facility] Albumin 4.0 3.5 - 5.0 g/dL [facility] A/G ratio 1.5 0.7 - 3.8 [facility] Alkaline phosphatase 96 35 - 104 U/L [facility] AST 25 10 - 35 U/L [facility] ALT 16 5 - 50 U/L [facility] Total bilirubin <0.2 0.2 - 1.2 mg/dL [facility] Specimen Blood Performing Organization Address City/State/ZIP Code Phon e Number [facility] DEPARTMENT OF PATHOLOGY [address] [facility] [address] AND GENOMIC MEDICINE [facility] [address] [facility] [place] [address] HOSPITAL after 09/11/2019 Insurance Payer Benefit Plan / Subscriber ID Effective Dates Phone Addre ss Type Group MEDICARE MEDICARE PART A [id number] 2020-Present [facility] [place] [place] AETNA AETNA HMO,POS,EPO, [id number] 2012-Present HMO MC/EC Advance Directives For more information, please contact: [phone] Type Date Recorded 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
--- OUTSIDE RECORDS SUMMARY | 2020-09-11 00:06 | XMS REPORT | Continuity of Care Document ---
:1955 Author Organization [facility] t Address [address] [place] [address] Care Team Providers Name Role Phone Marlen Wong MD Primary Care Physician Fuentes REYES Attending Clinician Unavailable Stan PRICE, [facility] Attending Clinician Zak De Souza DO Attending Clinician Doctor Unassigned, Name Attending Clinician Unavailable Germán JONES Attending Clinician Unavailable STAN Admitting Clinician Unavailable Payers Payer Name Policy Type Policy Effective Date Expiration Date Sour ce Number MEDICAREMEDICARE PART [id number] 2020 piper [id number] 2019- 00:00:00 [place] [id number] 2012 [place] HMO,POS,EPO, 00:00:00 Paulo GARCIA/[id number] 3-PresentHMO Problems Condition Condition Condition Status Onset Resolution Last Treating Co mments Source Name Details Category Date Date Treatment Clinician Date Colitis Colitis Disease Active [place] 06-16 Method[facility] 00:00: st 00 Allergies, Adverse Reactions, Alerts Allergy Allergy Status Severity Reaction(s) Onset Inactive Treating Comm ents Source Name Type Date Date Clinician Penicill Propensi Active Unknown [place] on ins ty to Reaction 9- Methodi adverse 00:00: st reaction 00 s to drug Predniso Propensi Active Other (See Hives,res [place] lone ty to Comments) 9- tless,per Meth sally adverse 00:00: pt she [...] Date Medication? Clinician (SIG) Name Name amLODIPine 2019- No 10mg QD Take 1 [place] [...] 50 :00 (two) times a day. ALPRAZolam Yes 2mg Q24H Take 2 mg [place] (XANAX) 2 06-22 by mouth Method i MG tablet 15:47: daily as st 49 needed for anxiety. gabapentin 0 2020- No 300mg Q.[id number] Take 1 [place] (NEURONTIN) 06-22 [id number] capsule Methodi 300 mg 00:00: 23:59 3D ([address] capsule 00 :00 total) by mouth 3 (three) times a day for 30 days. mesalamine 2019- No 800mg Q.[id number] Take 1 [place] (ASACOL) 06-22 [id number] tablet Me thodi 800 mg EC 00:00: [...] times a day for 30 days. acetaminoph No acute pain 1{tbl} Q6H Take 1 [place] en-codeine 06-22 tablet by Met vinny (TYLENOL 00:00: 23:[address] WITH 00 :00 every 6 CODEINE #3) (six) 300-30 mg hours as per tablet needed for moderate pain for up to 8 days .acute pain. Vital Signs Vital Name Observation Time Observation Value Comments Source Systolic blood 2020-06-22 14:05:00 173 mm[Hg] Abdirashidto n Jainism pressure Diastolic blood 2020-06-22 14:05:00 83 mm[Hg] Any on Jainism pressure Heart rate 2020-06-22 11:42:04 76 /min Nadir Bates Body temperature 2020-06-22 11:42:04 36.83 Susan [place] [facility] Respiratory rate 2020-06-22 11:42:04 16 /min [place] [facility] Oxygen saturation in 2020-06-22 11:42:04 100 /min Nadir Bates Arterial blood by Pulse oximetry Body height 2020-06-17 08:57:00 167.6 cm Nadir Bates Body weight 2020-06-16 20:18:00 44.316 kg Nadir Bates BMI 2020-06-16 20:18:00 15.77 kg/m2 Nadir Bates Procedures Procedure Date / Time Performing Clinician Source Performed HC COMPLETE BLD COUNT 2020-06-22 04:35:00 Prince Ginna Denson Jainism W/AUTO DIFF BASIC METABOLIC PANEL 2020-06-22 04:35:00 Prince Ginna Denson Jainism MAGNESIUM LEVEL 2020-06-22 04:35:00 Prince Nadir Denson Meth odist ESTIMATED GFR 2020-06-22 04:35:00 Prince Nadir Denson Meth odfidel HC COMPLETE BLD COUNT 2020-06-21 05:00:00 MartinoEugenia Jainism W/AUTO DIFF BASIC METABOLIC PANEL 2020-06-21 05:00:00 MartinoEugenia dominguez Jainism ESTIMATED GFR 2020-06-21 05:00:00 Eugenia Martino HC COMPLETE BLD COUNT 2020-06-20 03:35:00 MartinoEugenia dominguez Jainism W/AUTO DIFF BASIC METABOLIC PANEL 2020-06-20 03:35:00 MartinoEugenia dominguez ESTIMATED GFR 2020-06-20 03:35:00 Eugenia Martino GASTROINTESTINAL PANEL 2020-06-18 17:03:00 Enrrique Pierce Jistephan FECAL CALPROTECTIN 2020-06-18 17:03:00 Enrrique Pierce ethodist Jitenablico HC COMPLETE BLD COUNT 2020-06-18 03:55:00 Eugenia Martino W/AUTO DIFF BASIC METABOLIC PANEL 2020-06-18 03:55:00 Eugenia Martino Jainism ESTIMATED GFR 2020-06-18 03:55:00 Eugenia Martino SEDIMENTATION RATE 2020-06-17 17:25:00 Enrrique Pierce ethodist Jitenablico CRP HIGH SENSITIVITY 2020-06-17 17:25:00 Enrrique Pierce Jistephan HC COMPLETE BLD COUNT 2020-06-17 04:44:00 Monique Pierce Jainism W/AUTO DIFF Purushottam COMPREHENSIVE METABOLIC 2020-06-17 04:44:00 Monique Pierce Jainism PANEL Purushottam ESTIMATED GFR 2020-06-17 04:44:00 Monique Pierce odist Purnancyam Plan of Care Planned Activity Planned Date Details Comments Source Future Scheduled 2020 65+ PNEUMOCOCCAL [place] [facility]ainism Test 00:00:00 VACCINE (1 of 1 - PPSV23) [code = 65+ PNEUMOCOCCAL VACCINE (1 of 1 - PPSV23)] Future Scheduled 2020-05-07 INFLUENZA VACCINE [place] [facility] Test 00:00:00 [code = INFLUENZA VACCINE] Future Scheduled 2005 BREAST CANCER [facility] thodist Test 00:00:00 SCREENING [code = BREAST CANCER SCREENING] Future Scheduled 2005 COLONOSCOPY SCREENING [place] [facility] Test 00:00:00 [code = COLONOSCOPY SCREENING] Future Scheduled 2005 SHINGLES VACCINES (#1) [place] [facility] Test 00:00:00 [code = SHINGLES VACCINES (#1)] Future Scheduled 1976 Screening for [facility] thodist Test 00:00:00 malignant neoplasm of cervix (procedure) [code = 779124142] Encounters Start End Encounter Admission Attending Care Care Encounter Source Date/Time Date/Time Type Type Clinicians Facility Department ID 2020-06-16 2020-06-22 Inpatient STAN [facility] 064 [id number] [place] 00:00:00 00:00:00 MONIQUE [address] 2020-04-04 2020-04-04 Emergency [facility] [id number] 09:38:30 10:05:00 Chiqui Monterroso 350.1.13.10 [place] 4.2.7.2.686 [facility] [id number] 2020-04-04 2020-04-04 Orders Doctor HICKEY [id number] 00:00:00 00:00:00 Only Unassigned, [place] 350.1.13.10 [place] [facility] 4.2.7.2.686 [id number] 2019-12-25 2019-12-25 Nurse Rosaura Dunlap [id number] 00:00:00 00:00:00 Triage TRAMAINE 350.1.13.10 [facility] 4.2.7.2.686 [id number] 2019-06-08 2019-06-08 Emergency Ap, [facility] [id number] 09:51:07 12:07:00 Chiqui Monterroso 350.1.13.10 [place] 4.2.7.2.686 [facility] [id number] 2019-06-08 2019-06-08 Orders Doctor EDELMIRA [id number] 00:00:00 00:00:00 Only Unassigned, [place] 350.1.13.10 [place] [facility] 4.2.7.2.686 [id number] Results Test Description Test Time Test [...] 31 mEq/L Anion gap (test code = 02905-5) 10@ANIO 7- 15 mEq/L BUN (test code = 3094-0) 4 mg/dL 8-23 L Creatinine (test code = 2160-0) 0.49 mg/dL 0.5-0.9 L Glucose (test code = 2345-7) 130 mg/dL 65-99 H Calcium (test code = 54669-9) 8.9 mg/dL 8.8-10.2 Lab 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 (test code = 29820-0) Abnormal [place] MethodistMagnesium [id number] 05:48:03 Test Item Value Reference Range 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 Comments Magnesium (test code = 98231-2) 2.0 mg/dL 1.6-2.4 [place] MethodistEstimated [id number] 05:48:03 Test Item Value Reference Range 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 Comments Estimated GFR (test >=90 mL/min/1.73 [facility]2 [facility] Units code = 5488) 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G 1 >=90 Normal or highG2 60-89 Mildly shtkjajgsC1k 45-59 Mildly to mode rately dckloyzacA4j 30-44 Moderately to severely decreasedG4 15-29 Severely decre asedG5 <15 Kidn ey failureThe eGFR was calculated maude mayes the Chronic Kidney Disease Epidemiology Co llaboration (CKD-EPI) equat ion. 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 is based on recommendations of the National Kidney Foundation-Kidn ey Disease Outcomes Qualit y Initiative (NKF-KDOQI) pub lished in 2013. Nadir MethodistCBC with platelet and [id number] 05:19:44 Test Item Value Reference Range 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 Comments WBC (test code = 24214-0) 9.6 4.5- 11.0 k/uL RBC (test code = 38749-8) 3.56 m/uL 4.2-5.5 L HGB (test code = 718-7) 11.1 g/dL 12-16 L HCT (test code = 4544-3) 34.4 % 37-47 L MCV (test code = 787-2) 96.6 fL 82-100 MCH (test code = 785-6) 31.2 pg 27-34 MCHC (test code = 786-4) 32.3 g/dL 31-37 RDW - SD (test code = 73755-0) 49.8 fL 37-55 MPV (test code = 50790-4) 12.0 fL 6.9-11 H Platelet count (test code = 231 K/uL 150-400 00995-1) Nucleated RBC (test code = 23751-3) 0.00 /100 WBC Neutrophils (test code = 08380-4) 86.4 % 39-69 H Lymphocytes (test code = 73140-3) 10.0 % 25-45 L Monocytes (test code = 69539-2) 2.9 % 0-10 Eosinophils (test code = 11428-3) 0.0 % 0-5 Basophils (test code = 76320-6) 0.1 % 0-1 Immature granulocytes (test code = 0.6 % 0-1 31873-8) Lab 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 (test code = Abnormal 16885-0) Nadir MethodistFecal [id number] 12:34:46 Test Item Value Reference Range 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 Comments Fecal calprotectin (test code = 1273.50 <15.6-120 mg/kg H 63557-6) Lab 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 (test code = Abnormal 34703-5) [place] MethodistGastrointestinal [id number] 23:20:03 Test Item Value Reference 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 Comments [...] Rotavirus PCR (test Not Detected code = 5948786) Salmonella PCR (test Not Detected code = [...] PCR Not Detected (test code = 7124) [place] MethodistCRP high [id number] 22:25:02 Test Item Value Reference Range 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 Comments CRP, high 0.91 mg/L Please note thi s test is sensitivity (test different from the code = 59371-4) C-Reactive P rotein (CRP) assay. CRP is [...] source of infla mmation or infection Nadir Baileyedimentation [id number] 18:00:33 Test Item Value Reference Range 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 Comments Sedimentation rate (test code = 10 0- 20 mm/hr 35682-7) Nadir BatesComprehensive metabolic [id number] 05:52:23 Test Item Value Reference Range 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 Comments Sodium (test code = 2951-2) 140 135- 148 mEq/L Potassium (test code = 2823-3) 4.4 3.5- 5.0 mEq/L Chloride (test code = 2075-0) 103 98- 112 mEq/L CO2 (test code = 2027-9) 25 24- 31 mEq/L Anion gap (test code = 23786-1) 12@ANIO 7- 15 mEq/L BUN (test code = 3094-0) 9 mg/dL 8-23 Creatinine (test code = 2160-0) 0.68 mg/dL 0.5-0.9 Glucose (test code = 2345-7) 121 mg/dL 65-99 H Calcium (test code = 86551-2) 9.4 mg/dL 8.8-10.2 Protein (test code = [...] 1974-11) Lab 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 (test code = Abnormal 05408-0) Nadir Bates
[2020-09-11 00:53] LABS: Basophils % 1.1 % (0-1.3); Hematocrit 37.3 % (36.0-45.0); Lymphocytes % 39.4 % (15.3-44.8); MPV 10.4 fL (7.6-11.3); RBC Red Blood Cell Count 4.02 M/uL (3.86-4.86)
[2020-09-11] MEDS ORDERED: ONDANSETRON 4 MG/2 ML VIAL ONE (00:56)
[2020-09-11] MEDS ORDERED: MORPHINE 4 MG/ML SYR ONE (00:56)
[2020-09-11 01:10] LABS: ALT/SGPT 28 U/L (12-78); AST/SGOT 25 U/L (15-37); Albumin 3.8 g/dL (3.4-5.0); Alkaline Phosphatase 102 U/L (45-117); BUN Blood Urea Nitrogen 5 mg/dL (7-18); Bicarbonate 31 mmol/L (21-32); Bilirubin Direct < 0.1 mg/dL (0-0.2); Bilirubin Total 0.3 mg/dL (0.2-1.0); Glucose Level 91 mg/dL (74-106); Lipase 212 U/L (73-393); Potassium 3.8 mmol/L (3.5-5.1); Protein, Total 7.2 g/dL (6.4-8.2); Sodium Level 132 mmol/L (136-145)
--- NOTE | 2020-09-11 02:28 | EDPHYS ---
Physician Documentation [facility] Name: Chica Flores Age: 65 yrs Sex: Female : 1955 Arrival Date: 09/11/2020 Time: 00:04 Bed 5 Private MD: ED Physician Armand Canales HPI: 09/11 01:47 This 65 yrs old Female presents to ER via EMS with complaints of Abdominal tw4 Pain. 01:47 This 65 yrs old Female presents to ER via EMS with complaints of Abdominal tw4 Pain. 01:47 The patient presents with abdominal pain. Onset: The symptoms/episode began/occurred tw4 today. The symptoms do not radiate. Associated signs and symptoms: none. The symptoms are described as sharp. Modifying factors: The symptoms are alleviated by nothing, the symptoms are aggravated by nothing. The patient has not experienced similar symptoms in the past. Historical: - Allergies: 00:24 PENICILLINS; wh 00:24 steroids; Allergy to Oral Steroids, IV is fine; wh - Home Meds: 00:24 Prozac 40 mg Oral cap 1 cap once daily [Active]; Xanax 2 mg Oral tab 1 tab 3 times per day [Active]; gabapentin 100 mg oral cap 3 caps 3 times per day [Active]; lisinopril 40 mg Oral tab 1 tab once daily [Active]; - PMHx: 00:24 Anxiety; Colitis; Depression; ADD/ADHD; Osteoporosis; PTSD; ulcerative ulcer; wh - Immunization history:: Adult Immunizations unknown. - Social history:: Smoking status: Patient/guardian denies using. ROS: 01:47 Constitutional: Negative for fever, chills, and weight loss, Eyes: Negative for injury, tw4 pain, redness, and discharge, Cardiovascular: Negative for chest pain, palpitations, and edema, Respiratory: Negative for shortness of breath, cough, wheezing, and pleuritic chest pain, Back: Negative for injury and pain, MS/Extremity: Negative for injury and deformity, Skin: Negative for injury, rash, and discoloration, Neuro: Negative for headache, weakness, numbness, tingling, and seizure. 01:47 Abdomen/GI: Positive for abdominal pain, Negative for nausea and vomiting, nausea, vomiting, and diarrhea, nausea, vomiting, constipation, abdominal cramps, abdominal distension, anorexia, dysphagia, hematemesis, black/tarry stool, rectal pain, rectal bleeding. Exam: 01:47 Constitutional: This is a well developed, well nourished patient who is awake, alert, tw4 and in no acute distress. Head/Face: Normocephalic, atraumatic. Chest/axilla: Normal chest wall appearance and motion. Nontender with no deformity. No lesions are appreciated. Cardiovascular: Regular rate and rhythm with a normal S1 and S2. No gallops, murmurs, or rubs. Normal PMI, no JVD. No pulse deficits. Respiratory: Lungs have equal breath sounds bilaterally, clear to auscultation and percussion. No rales, rhonchi or wheezes noted. No increased work of breathing, no retractions or nasal flaring. Back: No spinal tenderness. No costovertebral tenderness. Full range of motion. Skin: Warm, dry with normal turgor. Normal color with no rashes, no lesions, and no evidence of cellulitis. MS/ Extremity: Pulses equal, no cyanosis. Neurovascular intact. Full, normal range of motion. Neuro: Awake and alert, GCS 15, oriented to person, place, time, and situation. Cranial nerves II-XII grossly intact. Motor strength 5/5 in all extremities. Sensory grossly intact. Cerebellar exam normal. Normal gait. 01:47 Abdomen/GI: Inspection: abdomen appears normal, Bowel sounds: diminished, Palpation: moderate abdominal tenderness, in all quadrants. Vital Signs: 00:19 BP 126 / 83; Pulse 77; Resp 18; Temp 97.6; Pulse Ox 99% ; Weight 52.16 kg; Height 5 ft. wh 5 in. (165.10 cm); Pain 9/10; 01:30 BP 142 / 74; Pulse 70; Resp 18; Pulse Ox 99% on R/A; wh 02:30 BP 144 / 70; Pulse 71; Resp 18; Pulse Ox 100% on R/A; wh 00:19 Body Mass Index 19.14 (52.16 kg, 165.10 cm) MDM: 00:04 Patient medically screened. tw4 09/11 00:06 Order name: Basic Metabolic Panel tw4 09/11 00:06 Order name: CBC with Diff tw4 09/11 00:06 Order name: Hepatic Function tw4 09/11 00:06 Order name: Lipase tw4 09/11 00:18 Order name: CT Abd/Pelvis - IV Contrast Only tw4 Administered Medications: 00:48 Drug: morphine 4 mg {Note: RASS 0.} Route: IVP; Site: right forearm; 02:36 Follow up: Response: No adverse reaction; Pain is decreased; RASS: Alert and Calm (0) 00:50 Drug: Zofran (Ondansetron) 4 mg Route: IVP; Site: right forearm; 02:36 Follow up: Response: No adverse reaction; Nausea is decreased Disposition: 09/11/20 02:27 Discharged to Home. Impression: Constipation, unspecified. - Condition is Stable. - Discharge Instructions: Constipation, Adult. - Prescriptions for Miralax 17 gram/dose Oral - take 1 packet by ORAL route once daily dilute powder in 8 ounces of water or juice; 1 packet. Colace 100 mg Oral Tablet - take 1 tablet by ORAL route every 12 hours; 14 tablet. Lactulose 10 gram/15 mL Oral Solution - take 30 milliliter by ORAL route once daily; 300 milliliter. - Medication Reconciliation Form, Thank You Letter, Antibiotic Education, Prescription Opioid Use form. - Follow up: Private Physician; When: Upon discharge from the Emergency Department; Reason: Recheck today's complaints, Continuance of care, Re-evaluation by your physician. - Problem is new. - Symptoms have improved. Signatures: Dispatcher [employer] EDMS Elizabeth Israel Armand Canales MD MD tw4 Corrections: (The following items were deleted from the chart) 02:50 02:27 09/11/2020 02:27 Discharged to Home. Impression: Constipation, unspecified. Condition is Stable. Forms are Medication Reconciliation Form, Thank You Letter, Antibiotic Education, Prescription Opioid Use. Follow up: Private Physician; When: Upon discharge from the Emergency Department; Reason: Recheck today's complaints, Continuance of care, Re-evaluation by your physician. Problem is new. Symptoms have improved. tw4
--- NOTE | 2020-09-11 02:28 | ER ---
Nurse's Notes [facility] Name: Chica Flores Age: 65 yrs Sex: Female : 1955 Arrival Date: 09/11/2020 Time: 00:04 Bed 5 Private MD: Diagnosis: Constipation, unspecified Presentation: 09/11 00:19 Chief complaint: EMS states: Pt was just here a week ago admitted for Ulcerative wh Colitis and was discharged with prescription. Pt now C/O abdominal pain that started yesterday and nausea. Coronavirus screen: Client denies travel out of the [place] in the last 14 days. At this time, the client does not indicate any symptoms associated with coronavirus-19. Ebola Screen: Patient negative for fever greater than or equal to 101.5 degrees Fahrenheit, and additional compatible Ebola Virus Disease symptoms Patient denies exposure to infectious person. Initial Sepsis Screen: Does the patient meet any 2 criteria? No. Patient's initial sepsis screen is negative. Does the patient have a suspected source of infection? Yes: Acute abdominal pain. Risk Assessment: Do you want to hurt yourself or someone else? Patient reports no desire to harm self or others. Onset of symptoms was September 11, 2020. Care prior to arrival: Glucose check: 85. 00:19 Method Of Arrival: EMS: [facility] 00:19 Acuity: ANITA 3 Historical: - Allergies: 00:24 PENICILLINS; 00:24 steroids; Allergy to Oral Steroids, IV is fine; - Home Meds: 00:24 Prozac 40 mg Oral cap 1 cap once daily [Active]; Xanax 2 mg Oral tab 1 tab 3 times per day [Active]; gabapentin 100 mg oral cap 3 caps 3 times per day [Active]; lisinopril 40 mg Oral tab 1 tab once daily [Active]; - PMHx: 00:24 Anxiety; Colitis; Depression; ADD/ADHD; Osteoporosis; PTSD; ulcerative ulcer; wh - Immunization history:: Adult Immunizations unknown. - Social history:: Smoking status: Patient/guardian denies using. Screenin:25 Abuse screen: Denies threats or abuse. Denies injuries from another. Nutritional screening: No deficits noted. Tuberculosis screening: No symptoms or risk factors identified. Fall Risk None identified. Assessment: 00:24 General: Appears in no apparent distress. uncomfortable, Behavior is calm, cooperative, wh appropriate for age. Pain: Complains of pain in left upper quadrant and left lower quadrant Pain does not radiate. Pain currently is 9 out of 10 on a pain scale. Pain began 1 day ago. Neuro: Level of Consciousness is awake, alert, obeys commands, Oriented to person, place, time, situation, Appropriate for age. Cardiovascular: Heart tones S1 S2. Respiratory: Airway is patent Respiratory effort is even, unlabored, Respiratory pattern is regular, symmetrical, Breath sounds are clear bilaterally. GI: Abdomen is flat, non-distended, Bowel sounds present X 4 quads. Abd is soft Abdomen is tender to palpation in left upper quadrant and left lower quadrant Reports lower abdominal pain, upper abdominal pain, nausea. : No signs and/or symptoms were reported regarding the genitourinary system. EENT: No signs and/or symptoms were reported regarding the EENT system. Derm: Skin is intact, is healthy with good turgor, Skin is pink, warm \T\ dry. normal. Musculoskeletal: Circulation, motion, and sensation intact. 01:30 Reassessment: Patient appears in no apparent distress at this time. No changes from previously documented assessment. Patient and/or family updated on plan of care and expected duration. Pain level reassessed. Patient is alert, oriented x 3, equal unlabored respirations, skin warm/dry/pink. 02:30 Reassessment: Patient appears in no apparent distress at this time. Patient and/or family updated on plan of care and expected duration. Pain level reassessed. Patient is alert, oriented x 3, equal unlabored respirations, skin warm/dry/pink. 02:37 Reassessment: pt reports to that she is not able to have her to drive sg to the ED to pick her up until 0700. Taxi contacted for pt transport back to her dwelling. Vital Signs: 00:19 BP 126 / 83; Pulse 77; Resp 18; Temp 97.6; Pulse Ox 99% ; Weight 52.16 kg; Height 5 ft. 5 in. (165.10 cm); Pain 9/10; 01:30 BP 142 / 74; Pulse 70; Resp 18; Pulse Ox 99% on R/A; 02:30 BP 144 / 70; Pulse 71; Resp 18; Pulse Ox 100% on R/A; wh 00:19 Body Mass Index 19.14 (52.16 kg, 165.10 cm) ED Course: 00:04 Patient arrived in ED. 00:04 Armand Canales MD is Attending Physician. tw4 00:17 Elizabeth Israel is Primary Nurse. 00:22 Triage completed. 00:26 Patient has correct armband on for positive identification. Placed in gown. Bed in low wh position. Call light in reach. Side rails up X 1. Pulse ox on. NIBP on. 00:26 Arm band placed on right wrist. 00:50 Inserted saline lock: 20 gauge in right forearm, using aseptic technique. Blood wh collected. 01:52 CT Abd/Pelvis - IV Contrast Only In Process Unspecified. EDMS 02:49 No provider procedures requiring assistance completed. IV discontinued, intact, wh bleeding controlled, No redness/swelling at site. Administered Medications: 00:48 Drug: morphine 4 mg {Note: RASS 0.} Route: IVP; Site: right forearm; 02:36 Follow up: Response: No adverse reaction; Pain is decreased; RASS: Alert and Calm (0) 00:50 Drug: Zofran (Ondansetron) 4 mg Route: IVP; Site: right forearm; 02:36 Follow up: Response: No adverse reaction; Nausea is decreased Outcome: 02:27 Discharge ordered by . tw4 02:49 Discharged to home via wheelchair, with family. 02:49 Condition: stable 02:49 Discharge instructions given to patient, Instructed on discharge instructions, follow up and referral plans. medication usage, POC Demonstrated understanding of instructions, follow-up care, medications, POC Prescriptions given X 3. 02:50 Patient left the ED. Signatures: Dispatcher [employer] EDMO Anthony Montiel RN RN sg [place], Winsy Armand Canales MD MD tw4
--- NOTE | 2020-09-12 10:07 | RAD REPORT ---
EXAM DESCRIPTION: CT Abdomen and Pelvis With Intravenous Contrast CLINICAL HISTORY: The patient is 65 years old and is Female; ABD PAIN TECHNIQUE: Axial computed tomography images of the abdomen and pelvis with intravenous contrast. S agittal and coronal reformatted images were created and reviewed. This CT exam was performed using one or more of the following dose reduction techniques: automated exposure control, adjustment of t he mA and/or kV according to patient size, and/or use of iterative reconstruction technique. COMPARISON: CT of the abdomen and pelvis September 03, 2020 FINDINGS: LUNG BASES: Scarring within the lingula is present. ABDOMEN: LIVER: Unremarkable. No mass. GALLBLADDER AND BILE DUCTS: The gallbladder is physiologically distended. No calcified gallstone s are seen. PANCREAS: No ductal dilation. No mass. SPLEEN: Unremarkable. ADRENALS: Unremarkable. No mass. KIDNEYS AND URETERS: Unremarkable. The kidneys enhance symmetrically. No obstructing renal or ur eteral calculus is seen. No hydronephrosis or hydroureter. No perinephric fluid or stranding. STOMACH AND BOWEL: The proximal stomach is decompressed. The distal gastric body is dilated and filled with food contents. Several prominent proximal small bowel loops with mild mucosal enhancement is present. The remainder the small bowel is more normal in caliber. A moderate amount stool is pres ent within the right transverse colon. Left colon is decompressed. PELVIS: APPENDIX: No findings to suggest acute appendicitis. BLADDER: The bladder is massively distended. REPRODUCTIVE: Unremarkable as visualized. ABDOMEN and PELVIS: INTRAPERITONEAL SPACE: Unremarkable. No free air. No significant fluid collection. BONES/JOINTS: Mild degenerative change of the spine is present. SOFT TISSUES: The soft tissues are normal. VASCULATURE: Atherosclerosis of the vasculature is present. No abdominal aortic aneurysm. LYMPH NODES: Unremarkable. No enlarged lymph nodes. IMPRESSION: 1. Distended distal gastric body and proximal small bowel demonstrating mild mucosal e nhancement suggesting gastritis and enteritis. 2. Moderate stool burden specifically the right and transverse colon without evidence of obstructio n. 3. Significantly distended bladder. Electronically signed by: Octavia Salamanca MD 09/11/2020 2:15 AM ADVANCED REGISTERED NURSE Due to temporary technical issues with the PACS/Fluency reporting system, reports are being signed by the in house radiologist without review as a courtesy to ensure prompt reporting. The interpreting r adiologist is fully responsible for the content of the report.
[2020-09-15 07:41] VITALS: TEMP 97.6
[2020-09-15 07:43] VITALS: BP 144/70; O2SAT 100
== END 2020-09-11 02:50 | disposition home or self-care (01) ==
LOC: ER 00:03
DX: K59.00 Constipation, unspecified (principal); F41.8 Other specified anxiety disorders; Z88.0 Allergy status to penicillin; Z88.8 Allergy status to other drugs, medicaments and biological substances
CPT/HCPCS: 85025; 80048; 36415; 80076; 83690; 74177; Q9967; J2405; 96374; 96375; 99284

== ENCOUNTER 2020-12-06 10:24 | Emergency (ER) | payer BC ==
--- OUTSIDE RECORDS SUMMARY | 2020-12-06 10:29 | XMS REPORT | Continuity of Care Document ---
:1955 Author Organization [facility] t Address [address] [place] [address] Care Team Providers Name Role Phone Marlen Wong MD Primary Care Physician Doctor Unassigned, Name Attending Clinician Unavailable Olga JONES, M Attending Clinician Fuentes REYES Attending Clinician Unavailable Aston Pierce MD Attending Clinician STAN Admitting Clinician Unavailable Payers Payer Name Policy Type Policy Effective Date Expiration Date Sour ce Number MEDICAREMEDICARE PART [id number] 2020 [facility] [id number] 2019- 00:00:00 [facility] AET[place]AETNA [id number] 2012 [place] HMO,POS,EPO, 00:00:00 Paulo GARCIA/[id number] 3-PresentHMO Problems Condition Condition Condition Status Onset Resolution Last Treating Co mments Source Name Details Category Date Date Treatment Clinician Date Colitis Colitis Disease Active [place] 06-16 Methodi 00:00: st 00 Allergies, Adverse Reactions, Alerts Allergy Allergy Status Severity Reaction(s) Onset Inactive Treating Comm ents Source Name Type Date Date Clinician Penicill Propensi Active Unknown [place] ins ty to Reaction 06-16 Method[facility] adverse 00:00: st reaction 00 s [...] Yes 2mg Q24H Take 2 mg [place] (XANAX) 2 06-22 by mouth Method i MG tablet 15:47: daily as st 49 needed for anxiety. gabapentin 2020- No 300mg [id number] Take 1 [place] (NEURONTIN) 06-22 [id number] capsule Methodi 300 mg 00:00: 23:59 3D ([address] capsule 00 :00 total) by mouth 3 (three) times a day for 30 days. mesalamine 2019- No 800mg Q.77252136 Take 1 [place] (ASACOL) 06-22 [id number] tablet Me thodi 800 mg EC 00:00: 23:59 3D ([address] tablet 00 :00 total) by mouth 3 (three) times a day for 30 days. mesalamine 2019- No 4g QD Insert 60 [place] (ROWASA) 4 06-22 mL (4 g Metho di gram/60 mL 00:00: 23:59 total) st enema 00 :00 into the rectum nightly for 30 days. triamcinolo 2020- No Q.5D Apply [place] 06-22 topically [facility] (KENALOG) 00:00: 23:59 2 (two) st 0.1 % cream 00 :00 times a day for 30 days. acetaminoph No acute pain 1{tbl} Q6H Take 1 [place] en-codeine 06-22 tablet by Met vinny (TYLENOL 00:00: 23:[address] WITH 00 :00 every 6 CODEINE #3) (six) 300-30 mg hours as per tablet needed for moderate pain for up to 8 days .acute pain. Vital Signs Vital Name Observation Time Observation Value Comments Source Systolic blood 2020-06-22 14:05:00 173 mm[Hg] Abdirashidto n Sabianism pressure Diastolic blood 2020-06-22 14:05:00 83 mm[Hg] Any on Sabianism pressure Heart rate 2020-06-22 11:42:04 76 /min Nadir Bates Body temperature 2020-06-22 11:42:04 36.83 Susan [place] Respiratory rate 2020-06-22 11:42:04 16 /min [place] [facility] Oxygen saturation in 2020-06-22 11:42:04 100 /min Nadir Bates Arterial blood by Pulse oximetry Body height 2020-06-17 08:57:00 167.6 cm Nadir Bates Body weight 2020-06-16 20:18:00 44.316 kg Nadir Bates BMI 2020-06-16 20:18:00 15.77 kg/m2 Nadir Bates Procedures Procedure Date / Time Performing Clinician Source Performed HC COMPLETE BLD COUNT 2020-06-22 04:35:00 Jarett Derek Ginna mars Sabianism W/AUTO DIFF BASIC METABOLIC PANEL 2020-06-22 04:35:00 Jarett Prince Ginna mars [facility] MAGNESIUM LEVEL 2020-06-22 04:35:00 Prince Nadir Denson Meth odist ESTIMATED GFR 2020-06-22 04:35:00 Prince Nadir Denson Meth odist HC COMPLETE BLD COUNT 2020-06-21 05:00:00 MartinoEugenia Sabianism W/AUTO DIFF BASIC METABOLIC PANEL 2020-06-21 05:00:00 MartinoEugenia Sabianism ESTIMATED GFR 2020-06-21 05:00:00 Eugenia Martino HC COMPLETE BLD COUNT 2020-06-20 03:35:00 Eugenia Martino Sabianism W/AUTO DIFF BASIC METABOLIC PANEL 2020-06-20 03:35:00 MartinoEugenia dominguez Sabianism ESTIMATED GFR 2020-06-20 03:35:00 Eugenia Martino GASTROINTESTINAL PANEL 2020-06-18 17:03:00 Enrrique Pierce Jitendrablico FECAL CALPROTECTIN 2020-06-18 17:03:00 Enrrique Pierce ethodist Jitendrablico HC COMPLETE BLD COUNT 2020-06-18 03:55:00 Eugenia Martino Sabianism W/AUTO DIFF BASIC METABOLIC PANEL 2020-06-18 03:55:00 Eugenia Martino Sabianism ESTIMATED GFR 2020-06-18 03:55:00 Eugenia Martino SEDIMENTATION RATE 2020-06-17 17:25:00 Enrrique Pierce ethodist Jitendrablico CRP HIGH SENSITIVITY 2020-06-17 17:25:00 Enrrique Pierce Jitendrabhai HC COMPLETE BLD COUNT 2020-06-17 04:44:00 Suzan Pierce Sabianism W/AUTO DIFF Purushottam COMPREHENSIVE METABOLIC 2020-06-17 04:44:00 Suzan Pierce Abdirashid [facility] Sabianism PANEL Aston ESTIMATED GFR 2020-06-17 04:44:00 Stan Jaxonestrella Peraza odfidel Aston Plan of Care Planned Activity Planned Date Details Comments Source Future Scheduled 2020 65+ PNEUMOCOCCAL [place] [facility] Test 00:00:00 VACCINE (1 of 1 - PPSV23) [code = 65+ PNEUMOCOCCAL VACCINE (1 of 1 - PPSV23)] Future Scheduled 2020-05-07 INFLUENZA VACCINE [place] [facility] Test 00:00:00 [code = INFLUENZA VACCINE] Future Scheduled 2005 BREAST CANCER [facility] thodist Test 00:00:00 SCREENING [code = BREAST CANCER SCREENING] Future Scheduled 2005 COLONOSCOPY SCREENING Ho usvanessa Sabianism Test 00:00:00 [code = COLONOSCOPY SCREENING] Future Scheduled 2005 SHINGLES VACCINES (#1) H ouramez Sabianism Test 00:00:00 [code = SHINGLES VACCINES (#1)] Future Scheduled 1976 Screening for [facility] thodist Test 00:00:00 malignant neoplasm of cervix (procedure) [code = 244522585] Future Scheduled 1973 [facility] 00:00:00 (procedure) [code = 996359485] Future Scheduled 1971 COVID-19 VACCINE (1 of [place] [facility] Test 00:00:00 2) [code = COVID-19 VACCINE (1 of 2)] Encounters Start End Encounter Admission Attending Care Care Encounter Source Date/Time Date/Time Type Type Clinicians Facility Department ID 2020-11-22 2020-11-22 Orders Doctor EDELMIRA [id number] 00:00:00 00:00:00 Only Unassigned, TRAMAINE [id number] [facility] [id number] 2020-11-11 2020-11-11 Transition Les Espinoza [id number] 00:00:00 00:00:00 of Care [place] Mayur [id number] Mar[place] [id number] 2020-06-16 2020-06-22 [facility] [id number] [place] 00:00:00 00:00:00 BHAGWAT [address] Results Test Description Test Time Test Comments Results Result Comments Source Basic metabolic panel 2020-06-22 05:48:03 Test Item Value Reference Range 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 Comme nts Sodium (test code = 2951-2) 140 See_Comment [Automated message] The system which generated this result transmitted ref erence range: 135 - 148 mEq/L . The reference range was not u sed to interpret this result as normal/abnormal. Potassium (test code = 3.7 See_Comment [Aut omated message] The system 5353-3) which generated this result transmitted ref erence range: 3.5 - 5.0 mEq/L . The reference range was not u sed to interpret this result as normal/abnormal. Chloride (test code = 2075-0) 106 See_Comment [Automated message] The system which generated this result transmitted ref erence range: 98 - 112 mEq/L. Th e reference range was not u sed to interpret this result as normal/abnormal. CO2 (test code = 2027-) 24 See_Comment [A utomated message] The system which generated this result transmitted ref erence range: 24 - 31 mEq/L. The reference range was not used to interpret this result as anoop l/abnormal. Anion gap (test code = 10@ANIO See_Comment [Aut omated message] The system 02737-7) which generated this result transmitted ref erence range: 7 - 15 mEq/L. The reference range was not used to interpret this result as anoop l/abnormal. BUN (test code = 3094-0) 4 mg/dL 8-23 L Creatinine (test code = 0.49 mg/dL 0.5-0.9 L 2160-0) Glucose (test code = 2345-7) 130 mg/dL 65-99 H Calcium (test code = 81770-1) 8.9 mg/dL 8.8-10.2 Lab 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 (test code Abnormal = 23899-6) [place] [facility]esium [id number] 05:48:03 Test Item Value Reference Range 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 Comments Magnesium (test code = 71200-0) 2.0 mg/dL 1.6-2.4 [place] MethodistEstimated [id number] 05:48:03 Test Item Value Reference Range 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 Comments Estimated GFR (test >=90 mL/min/1.73 m2 Mikayla wong Units code = 5488) 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G 1 >=90 Normal or highG2 60-89 Mildly ejucqqhpeA1e 45-59 Mildly to mode rately vehgeluyvZ5r 30-44 Moderately to severely decreasedG4 15-29 Severely decre asedG5 <15 Kidn ey failureThe eGFR was calculated maude mayes the Chronic Kidney Disease Epidemiology Co llaboration (CKD-EPI) equat ion. 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 is based on recommendations of the National Kidney Foundation-Kidn ey Disease Outcomes Qualit y Initiative (NKF-KDOQI) pub lished in 2014. [place] MethodistCBC with platelet and [id number] 05:19:44 Test Item Value Reference Range 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 Comments WBC (test code = 9.6 See_Comment [Automated message] 20361-4) The system [employer] generated this result transmit carol reference range : 4.5 - 11.0 k/uL. Th e reference range was not used to interpret this result as normal/abnormal . RBC (test code = 3.56 m/uL 4.2-5.5 L 37089-5) HGB (test code = 718-7) 11.1 g/dL 12-16 L HCT (test code = 4544-3) 34.4 % 37-47 L MCV (test code = 787-2) 96.6 fL 82-100 MCH (test code = 785-6) 31.2 pg 27-34 MCHC (test code = 786-4) 32.3 g/dL 31-37 RDW - SD (test code = 49.8 fL 37-55 22752-3) MPV (test code = 12.0 fL 6.9-11 H 03972-7) Platelet count (test 231 K/uL 150-400 code = 35915-6) Nucleated RBC (test code 0.00 See_Comment [A utomated message] = 70173-0) The system [employer] generated this result transmit carol reference range : /100 WBC. The reference range was not used to interpret this result as normal/abnormal . Neutrophils (test code = 86.4 % 39-69 H 35616-5) Lymphocytes (test code = 10.0 % 25-45 L 81978-3) Monocytes (test code = 2.9 % 0-10 08900-9) Eosinophils (test code = 0.0 % 0-5 62179-5) Basophils (test code = 0.1 % 0-1 66999-3) Immature granulocytes 0.6 % 0-1 (test code = 91371-8) Lab 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 (test Abnormal code = 22406-7) [facility] MethodistFecal [id number] 12:34:46 Test Item Value Reference Range 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 Comments Fecal calprotectin (test 1273.50 See_Comment H [A utomated message] code = 28887-3) The system w [employer] generated this result transmitted ref erence range: <15.6-12 0 mg/kg. The refe rence range was not u sed to interpret this result as normal/abnor mal. Lab 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 (test Abnormal code = 11825-9) [facility]Gastrointestinal [id number] 23:20:03 Test Item Value Reference 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 Comments [...] Rotavirus PCR (test Not Detected code = 8456746) Salmonella PCR (test Not Detected code = [...] PCR Not Detected (test code = 7124) [place] MethodistCRP high [id number] 22:25:02 Test Item Value Reference Range 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 Comments CRP, high 0.91 mg/L Please note thi s test is sensitivity (test different from the code = 84811-5) C-Reactive P rotein (CRP) assay. CRP is [...] nother source of infla mmation or infection [place] MethodistSedimentation [id number] 18:00:33 Test Item Value Reference Range 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 Comments Sedimentation rate (test 10 See_Comment [A utomated message] code = 69664-4) The system [employer] [facility] generated this result transmitted ref erence range: 0 - 20 m m/hr. The reference r irvin was not used to int erpret this result as normal/abnormal . [place] MethodistComprehensive metabolic [id number] 05:52:23 Test Item Value Reference Range 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 Comments Sodium (test code = 140 See_Comment [[place] carol message] 7701-2) The system [employer] generated this result transmit carol reference range : 135 - 148 mEq/L. Th e reference range was not used to interpret this result as normal/abnormal . Potassium (test code = 4.4 See_Comment [Aut omated message] 4073-3) The system [employer] generated this result transmit carol reference range : 3.5 - 5.0 mEq/L. Th e reference range was not used to interpret this result as normal/abnormal . Chloride (test code = 103 See_Comment [Auto mated message] ) The system [employer] generated this result transmit carol reference range : 98 - 112 mEq/L. Th e reference range was not used to interpret this result as normal/abnormal . CO2 (test code = 25 See_Comment [Automated message] 2028-06) The system [employer] generated this result transmit carol reference range : 24 - 31 mEq/L. The reference range was not used to interpret this result as normal/abnormal . Anion gap (test code = 12@ANIO See_Comment [Aut omated message] 37607-8) The system [employer] generated this result transmit carol reference range : 7 - 15 mEq/L. The reference range was not used to interpret this result as normal/abnormal . BUN (test code = 9 mg/dL 8-23 3094-0) Creatinine (test code = 0.68 mg/dL 0.5-0.9 2160-0) Glucose (test code = 121 mg/dL 65-99 H 2345-7) Calcium (test code = 9.4 mg/dL 8.8-10.2 91338-0) Protein (test code = 6.7 g/dL 6.3-8.3 2885-2) Albumin (test code = 4.0 g/dL 3.5-5 1751-7) A/G ratio (test code = 1.5 0.7-3.8 1759-0) Alkaline phosphatase 96 U/L 35-104 (test code = 6768-6) AST (test code = 25 U/L 10-35 1920-8) ALT (test code = 16 U/L 5-50 1742-6) Total bilirubin (test <0.2 0.2-1.2 code = 1974-) Lab 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 Abnormal (test code = 00159-6) Nadir Bates
--- NOTE | 2020-12-06 11:33 | RAD REPORT ---
EXAM DESCRIPTION: CT - Pelvis Wo Cont - 12/06/2020 11:17 am CLINICAL HISTORY: Pelvic pain status post fall TECHNIQUE: Computed axial tomography of the pelvis was obtained. Coronal and sagittal reconstruction performed All CT scans are performed using dose optimization technique as appropriate and may include automated exposure control or mA/KV adjustment according to patient size. FINDINGS: Nondisplaced fractures involve the right and left transverse processes of L5. Insufficiency fractures involve the sacral alae. No additional fracture seen. No significant hip joint effusion IMPRESSION: Nondisplaced fractures involve the right and left transverse processes of L5. Insufficiency fractures involve the sacral alae.
[2020-12-06] MEDS ORDERED: HYDROCODONE/APAP 10/325 TAB ONE (11:35)
--- NOTE | 2020-12-06 11:38 | RAD REPORT ---
EXAM DESCRIPTION: CTSpine Lumbar Wo Con12/06/2020 11:17 am CLINICAL HISTORY: Fall with back pain COMPARISON: None TECHNIQUE: Computed axial tomography lumbar spine was obtained with coronal and sagittal reconstruct ion. All CT scans are performed using dose optimization technique as appropriate and may include automated exposure control or mA/KV adjustment according to patient size. FINDINGS: Subacute compression fracture involves the L1 vertebral body estimated 28%. The posterior elements are not involved. Minimal retropulsion of bone into the spinal canal. No dislocation Nondisplaced fractures right and left transverse processes of L5. Insufficiency sacral ala fractures Spondylosis L4-5 resulting in mild central spinal stenosis IMPRESSION: Mild to moderate subacute compression fracture L1 Nondisplaced fractures right and left transverse processes of L5. Insufficiency sacral ala fractures
--- NOTE | 2020-12-06 12:28 | EDPHYS ---
Physician Documentation [facility] Name: Chica Flores Age: 65 yrs Sex: Female : 1955 Arrival Date: 12/06/2020 Time: 10:28 Bed 19 Private MD: Reuben Gee E ED Physician Devin Lockwood HPI: 12/06 12:23 This 65 yrs old Female presents to ER via Wheelchair with complaints of rn Trouble Walking, Back Pain. 12:23 The patient presents with pain and contusion, and an injury. The symptoms are located rn in the low back, coccyx area. Onset: The symptoms/episode began/occurred 2 month(s) ago. The pain does not radiate. Associated signs and symptoms: Pertinent negatives: incontinence, numbness, tingling, urinary retention. Modifying factors: The patient symptoms are alleviated by nothing, the patient symptoms are aggravated by any movement. Severity of symptoms: At their worst the symptoms were moderate, in the emergency department the symptoms have improved. The patient has not experienced similar symptoms in the past. Reports fall from standing 2 months ago, reports lower back pain that radiates down right leg since then. No blood thinners, no previous back injury.. Historical: - Allergies: 10:48 PENICILLINS; iw 10:48 steroids; Allergy to Oral Steroids, IV is fine; iw - Home Meds: 10:48 Lorazepam Oral 3 times per day [Active]; Fluoxetine Oral 2 times per day [Active]; iw gabapentin 100 mg Oral cap 3 caps twice a day [Active]; Trazodone Oral nightly [Active]; - PMHx: 10:48 ADD/ADHD; Anxiety; Colitis; Depression; Osteoporosis; PTSD; ulcerative ulcer; iw - PSHx: 10:48 eye; Tonsillectomy; iw - Immunization history:: Adult Immunizations up to date. - Social history:: Smoking status: Patient denies any tobacco usage or history of. - Family history:: not pertinent. - Hospitalizations: : No recent hospitalization is reported. ROS: 12:23 Constitutional: Negative for fever, chills, and weight loss, Neck: Negative for injury, rn pain, and swelling, Cardiovascular: Negative for chest pain, palpitations, and edema, Respiratory: Negative for shortness of breath, cough, wheezing, and pleuritic chest pain, Abdomen/GI: Negative for abdominal pain, nausea, vomiting, diarrhea, and constipation, Back: + low back pain and injury MS/Extremity: Negative for injury and deformity, Skin: Negative for injury, rash, and discoloration, Neuro: Negative for headache, weakness, numbness, tingling, and seizure. Exam: 12:23 Constitutional: This is a well developed, well nourished patient who is awake, alert, rn and in no acute distress. Head/Face: Normocephalic, atraumatic. Neck: Trachea midline, no thyromegaly or masses palpated, and no cervical lymphadenopathy. Supple, full range of motion without nuchal rigidity, or vertebral point tenderness. No Meningismus. Back: + lower lumbar and sacral tenderness right mild swelling right perilumbar region. MS/ Extremity: Pulses equal, no cyanosis. Neurovascular intact. Full, normal range of motion. Equal circumference. Neuro: Awake and alert, GCS 15, oriented to person, place, time, and situation. Cranial nerves II-XII grossly intact. Motor strength 5/5 in all extremities. Sensory grossly intact. Cerebellar exam normal. Normal gait. Vital Signs: 10:43 BP 141 / 79; Pulse 96; Resp 16; Temp 97.7; Pulse Ox 100% on R/A; Weight 49.9 kg; Height iw 5 ft. 6 in. (167.64 cm); Pain 10/10; 11:55 BP 144 / 76; Pulse 89; Resp 16 S; Pulse Ox 100% on R/A; ca1 12:42 BP 148 / 82; Pulse 80; Resp 16 S; Pulse Ox 100% on R/A; ca1 10:43 Body Mass Index 17.75 (49.90 kg, 167.64 cm) iw MDM: 10:57 Patient medically screened. rn 12:23 Differential diagnosis: arthritis, chronic back pain, Fracture Osteoarthritis. Data rn reviewed: vital signs, nurses notes, radiologic studies, CT scan, and as a result, I will discharge patient. Counseling: I had a detailed discussion with the patient and/or guardian regarding: the historical points, exam findings, and any diagnostic results supporting the discharge/admit diagnosis, radiology results, the need for outpatient follow up, to return to the emergency department if symptoms worsen or persist or if there are any questions or concerns that arise at home. Response to treatment: the patient's symptoms have mildly improved after treatment, and as a result, I will discharge patient. Special discussion: I discussed with the patient/guardian in detail that at this point there is no indication for admission to the hospital. It is understood, however, that if the symptoms persist or worsen the patient needs to return immediately for re-evaluation. Based on the history and exam findings, there is no indication for further emergent testing or inpatient evaluation. I discussed with the patient/guardian the need to see the back specialist for further evaluation of the symptoms. I discussed with the patient/guardian the need to see the orthopedic surgeon for further evaluation of the symptoms. ED course: CT shows subacute fractures of L1, as well as L5 transverse process fractures, as well as sacral fractures, now 2 months old, will dc home with pain meds and ortho/spine f/u.. 12/06 11:03 Order name: CT Lumbar Spine Wo Con; Complete Time: 12:15 rn 12/06 11:03 Order name: CT Pelvis wo Cont; Complete Time: 12:15 rn Administered Medications: 11:22 Drug: Stitzer 10 mg-325 mg 1 tabs {Note: rass 0.} Route: PO; ca1 12:23 Follow up: Response: No adverse reaction; Pain is decreased; RASS: Alert and Calm (0) ca1 Disposition: 12/06/20 12:27 Discharged to Home. Impression: Wedge compression fracture of first lumbar vertebra, Subacute L5 transverse process fractures, Fatigue fracture of vertebra, sacral and sacrococcygeal region. - Condition is Stable. - Discharge Instructions: Spinal Compression Fracture, Transverse Process Fracture. - Prescriptions for Tylenol- Codeine #3 300-30 mg Oral Tablet - take 1 tablet by ORAL route every 4-6 hours As needed; 20 tablet. - Medication Reconciliation Form, Thank You Letter, Antibiotic Education, Prescription Opioid Use form. - Follow up: Anthony Santana MD; When: As needed; Reason: Recheck today's complaints, Re-evaluation by your physician. - Problem is an ongoing problem. - Symptoms have improved. Signatures: Dispatcher [employer] EDMS Naty De Souza RN RN iw Nieto, Roman, MD MD rn Acob, ROBERT Bergman RN ca1 Corrections: (The following items were deleted from the chart) 12:43 12:27 12/06/2020 12:27 Discharged to Home. Impression: Wedge compression fracture of ca1 first lumbar vertebra; Subacute L5 transverse process fractures; Fatigue fracture of vertebra, sacral and sacrococcygeal region. Condition is Stable. Forms are Medication Reconciliation Form, Thank You Letter, Antibiotic Education, Prescription Opioid Use. Follow up: Anthony Santana; When: As needed; Reason: Recheck today's complaints, Re-evaluation by your physician. Problem is an ongoing problem. Symptoms have improved. rn
--- NOTE | 2020-12-06 12:28 | ER ---
Nurse's Notes [facility] Name: Chica Flores Age: 65 yrs Sex: Female : 1955 Arrival Date: 12/06/2020 Time: 10:28 Bed 19 Private MD: Reuben Gee E Diagnosis: Wedge compression fracture of first lumbar vertebra;Subacute L5 transverse process fractures;Fatigue fracture of vertebra, sacral and sacrococcygeal region Presentation: 12/06 10:43 Chief complaint: Patient states: 2 months ago she had a bad fall, fell backwards onto iw her butt and her back and then fell forward onto her chest, has a big bump on her tailbone that hurts, pain radiates to both her legs , has been having trouble with incontinence , and is having increased difficulty walking. Coronavirus screen: At this time, the client does not indicate any symptoms associated with coronavirus-19. Ebola Screen: Patient negative for fever greater than or equal to 101.5 degrees Fahrenheit, and additional compatible Ebola Virus Disease symptoms Patient denies exposure to infectious person. Patient denies travel to an Ebola-affected area in the 21 days before illness onset. No symptoms or risks identified at this time. Initial Sepsis Screen: Does the patient meet any 2 criteria? No. Patient's initial sepsis screen is negative. Does the patient have a suspected source of infection? No. Patient's initial sepsis screen is negative. Risk Assessment: Do you want to hurt yourself or someone else? Patient reports no desire to harm self or others. Onset of symptoms was October 2020. 10:43 Method Of Arrival: Wheelchair iw 10:43 Acuity: ANITA 3 iw Historical: - Allergies: 10:48 PENICILLINS; iw 10:48 steroids; Allergy to Oral Steroids, IV is fine; iw - Home Meds: 10:48 Lorazepam Oral 3 times per day [Active]; Fluoxetine Oral 2 times per day [Active]; iw gabapentin 100 mg Oral cap 3 caps twice a day [Active]; Trazodone Oral nightly [Active]; - PMHx: 10:48 ADD/ADHD; Anxiety; Colitis; Depression; Osteoporosis; PTSD; ulcerative ulcer; iw - PSHx: 10:48 eye; Tonsillectomy; iw - Immunization history:: Adult Immunizations up to date. - Social history:: Smoking status: Patient denies any tobacco usage or history of. - Family history:: not pertinent. - Hospitalizations: : No recent hospitalization is reported. Screenin:59 Abuse screen: Denies threats or abuse. Denies injuries from another. Nutritional ca1 screening: No deficits noted. Tuberculosis screening: No symptoms or risk factors identified. Fall Risk Fall in past 12 months (25 points). Gait- Impaired (20 pts.). Total Marshall Fall Scale indicates Low Risk Score (25-44 pts). Fall prevention measures have been instituted. Side Rails Up X 2 As available Patient and Family Educated on Fall Prevention Program and strategies. Assessment: 10:59 General: Appears in no apparent distress. comfortable, Behavior is calm, cooperative, ca1 appropriate for age. Pain: Complains of pain in low back area Pain radiates to right leg and left leg Pain currently is 10 out of 10 on a pain scale. Pain began 2 months after a fall Aggravated by repositioning, weight bearing. Neuro: Level of Consciousness is awake, alert, obeys commands, Oriented to person, place, time, situation. Cardiovascular: Heart tones S1 S2 present Capillary refill < 3 seconds Patient's skin is warm and dry. Respiratory: Airway is patent Respiratory effort is even, unlabored, Respiratory pattern is regular, symmetrical, Breath sounds are clear bilaterally. GI: Abdomen is flat, non-distended. : No signs and/or symptoms were reported regarding the genitourinary system. EENT: No signs and/or symptoms were reported regarding the EENT system. Derm: Skin is fragile, is thin, with poor turgor Skin is pink, warm \T\ dry. Musculoskeletal: Circulation, motion, and sensation intact. Capillary refill < 3 seconds. 11:55 Reassessment: Patient appears in no apparent distress at this time. Patient and/or ca1 family updated on plan of care and expected duration. Pain level reassessed. Patient is alert, oriented x 3, equal unlabored respirations, skin warm/dry/pink. 12:42 Reassessment: Patient appears in no apparent distress at this time. Patient is alert, ca1 oriented x 3, equal unlabored respirations, skin warm/dry/pink. Patient states feeling better. Vital Signs: 10:43 BP 141 / 79; Pulse 96; Resp 16; Temp 97.7; Pulse Ox 100% on R/A; Weight 49.9 kg; Height iw 5 ft. 6 in. (167.64 cm); Pain 10/10; 11:55 BP 144 / 76; Pulse 89; Resp 16 S; Pulse Ox 100% on R/A; ca1 12:42 BP 148 / 82; Pulse 80; Resp 16 S; Pulse Ox 100% on R/A; ca1 10:43 Body Mass Index 17.75 (49.90 kg, 167.64 cm) ED Course: 10:28 Patient arrived in ED. mr 10:28 Reuben Gee MD is Private Physician. mr 10:45 Triage completed. iw 10:57 Devin Lockwood MD is Attending Physician. rn 10:59 Madalyn Pickens RN is Primary Nurse. ca1 10:59 Arm band placed on right wrist. ca1 10:59 Patient has correct armband on for positive identification. Placed in gown. Bed in low ca1 position. Call light in reach. Side rails up X2. Pulse ox on. NIBP on. Warm blanket given. 11:17 CT Lumbar Spine Wo Con In Process Unspecified. EDMS 11:17 CT Pelvis wo Cont In Process Unspecified. EDMS 12:26 Anthony Santana MD is Referral Physician. rn 12:42 No provider procedures requiring assistance completed. Patient did not have IV access ca1 during this emergency room visit. Administered Medications: 11:22 Drug: Ruffin 10 mg-325 mg 1 tabs {Note: rass 0.} Route: PO; ca1 12:23 Follow up: Response: No adverse reaction; Pain is decreased; RASS: Alert and Calm (0) ca1 Outcome: 12:27 Discharge ordered by . rn 12:42 Discharged to home ambulatory, with significant other. ca1 12:42 Condition: stable 12:42 Discharge instructions given to patient, Instructed on discharge instructions, follow up and referral plans. no drinking with medication, no driving heavy equipment, medication usage, Demonstrated understanding of instructions, follow-up care, medications, Prescriptions given X 1. 12:43 Patient left the ED. ca1 Signatures: Dispatcher [employer] MYRA CésarAnn Irene, RN ROBERT Devin Lockwood MD MD rn Acob, Cheryl, RN RN ca1
[2020-12-06 12:52] VITALS: TEMP 97.7; O2SAT 100
[2020-12-06 12:54] VITALS: BP 148/82
== END 2020-12-06 12:43 | disposition home or self-care (01) ==
LOC: ER 10:24
DX: S32.010A Wedge compression fracture of first lumbar vertebra, initial encounter for closed fracture (principal); S32.059A Unspecified fracture of fifth lumbar vertebra, initial encounter for closed fracture; W18.30XA Fall on same level, unspecified, initial encounter; Y93.89 Activity, other specified; Y92.9 Unspecified place or not applicable; F41.8 Other specified anxiety disorders; Z88.0 Allergy status to penicillin; Z88.8 Allergy status to other drugs, medicaments and biological substances
CPT/HCPCS: 72131; 72192; 99284

== ENCOUNTER 2021-06-21 20:13 | Emergency (ER) | payer BC ==
[2021-06-21 21:14] LABS: Urine Blood 1+ (Negative); Urine Glucose Negative (Negative); Urine Protein Negative (Negative)
[2021-06-21 21:29] LABS: Basophils % 1.2 % (0-1.3); Hematocrit 35.6 % (36.0-45.0); MPV 8.7 fL (7.6-11.3); RBC Red Blood Cell Count 3.87 M/uL (3.86-4.86)
[2021-06-21 21:33] LABS: Barbiturates NEGATIVE (NEGATIVE); Benzodiazepines NEGATIVE (NEGATIVE); Cocaine NEGATIVE (NEGATIVE); METHAMPHETAM NEGATIVE (NEGATIVE); Methadone NEGATIVE (NEGATIVE); Opiates NEGATIVE (NEGATIVE); Phencyclidine NEGATIVE (NEGATIVE); THC Cannibis NEGATIVE (NEGATIVE)
[2021-06-21 21:40] LABS: Protime INR 0.94
[2021-06-21 21:46] LABS: ALT/SGPT 32 U/L (12-78); AST/SGOT 20 U/L (15-37); Alkaline Phosphatase 99 U/L (45-117); BUN Blood Urea Nitrogen 8 mg/dL (7-18); Bicarbonate 32 mmol/L (21-32); Bilirubin Direct 0.1 mg/dL (0-0.2); Bilirubin Total 0.3 mg/dL (0.2-1.0); Glucose Level 97 mg/dL (74-106); Magnesium 2.3 mg/dL (1.8-2.4); NT PRO-BNP 223 pg/mL (<125); Potassium 3.4 mmol/L (3.5-5.1); Protein, Total 6.9 g/dL (6.4-8.2); Sodium Level 133 mmol/L (136-145); Troponin (Emerg Dept Use Only) < 0.02 ng/mL (0.0-0.045)
[2021-06-21] MEDS ORDERED: METOCLOPRAMIDE 10 MG/2mL INJ ONE (22:04)
[2021-06-21] MEDS ORDERED: MORPHINE 4 MG/ML SYR ONE (22:05)
[2021-06-22] MEDS ORDERED: LORazepam 2 MG/ML VIAL ONE (00:16)
--- NOTE | 2021-06-22 02:21 | ER ---
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 States she was recently prescribed benzo's and is now having difficulties trying to wean herself off again. Pt c/o a high anxiety feeling along with a squeezing sensation in her chest and a headache. Pt states she gets dizzy and SOB. Pt states she is also having Nausea and diarrhea. Coronavirus screen: Vaccine status: Patient reports receiving the 2nd dose of the covid vaccine. Date May 07, 2021 Client denies travel out of the [place] in the last 14 days. At this time, the client does not indicate any symptoms associated with coronavirus-19. Ebola Screen: Patient negative for fever greater than or equal to 101.5 degrees Fahrenheit, and additional compatible Ebola Virus Disease symptoms Patient denies exposure to infectious person. Patient denies travel to an Ebola-affected area in the 21 days before illness onset. Initial Sepsis Screen: Does the patient meet any 2 criteria? No. Patient's initial sepsis screen is negative. Does the patient have a suspected source of infection? No. Patient's initial sepsis screen is negative. Risk Assessment: Do you want to hurt yourself or someone else? Patient reports no desire to harm self or others. Onset of symptoms was June 20, 2021. 20:29 Method Of Arrival: Ambulatory 20:29 Acuity: ANITA 3 wg Triage Assessment: 20:35 General: Appears well groomed, malnourished, Behavior is cooperative, anxious. Pain: wg Complains of pain in head and chest Pain currently is 10 out of 10 on a pain scale. Quality of pain is described as squeezing, Pain began 2-3 days ago. Is continuous. EENT: No deficits noted. Neuro: No deficits noted. Cardiovascular: Reports shortness of breath, Squeezing pain in her chest Denies vomiting. Respiratory: Reports shortness of breath. GI: Reports diarrhea. : No deficits noted. Derm: No deficits noted. Musculoskeletal: No deficits noted. Historical: - Allergies: 20:35 PENICILLINS; wg 20:35 steroids; Allergy to Oral Steroids, IV is fine; wg - Home Meds: 20:35 Prozac Oral [Active]; Risperdal Oral [Active]; Clonazepam Oral [Active]; wg - PMHx: 20:35 ADD/ADHD; Colitis; Anxiety; Depression; PTSD; Osteoporosis; wg - Immunization history:: Adult Immunizations up to date. - Social history:: Smoking status: Patient reports the use of cigarette tobacco products, Patient denies any tobacco usage or history of. Patient/guardian denies using alcohol, street drugs, IV drugs. Screenin/16 01:14 Abuse screen: Denies threats or abuse. Nutritional screening: No deficits noted. df1 Tuberculosis screening: No symptoms or risk factors identified. Fall Risk Ambulatory Aid- None/Bed Rest/Nurse Assist (0 pts). Gait- Impaired (20 pts.). Mental Status- Oriented to own ability (0 pts). Assessment: 06/21 21:00 General: Appears in no apparent distress. comfortable, obese, well groomed. Pain: df1 Denies pain. Neuro: No deficits noted. Cardiovascular: No deficits noted. Respiratory: No deficits noted. GI: No signs and/or symptoms were reported involving the gastrointestinal system. Abdomen is obese, Bowel sounds present X 4 quads. Abd is soft and non tender X 4 quads. Parent/caregiver reports the patient having diarrhea. : Reports incontinence, Pt wear pad for stress incontinence. EENT: No deficits noted. Derm: No deficits noted. Musculoskeletal: Reports weakness in right leg and left leg. Vital Signs: 20:29 BP 141 / 80; Pulse 68; Resp 20; Temp 97.8; Pulse Ox 100% on R/A; Weight 45.36 kg; wg Height 5 ft. 6 in. (167.64 cm); Pain 10/10; 21:35 BP 170 / 94; Pulse 66; Resp 18; Pulse Ox 100% on R/A; df1 22:45 BP 139 / 104; Pulse 60; Resp 18; Pulse Ox 100% on R/A; df1 06/22 01:12 BP 158 / 79; Pulse 61; Resp 18; Pulse Ox 94% on 2 lpm NC; df1 06/21 20:29 Body Mass Index 16.14 (45.36 kg, 167.64 cm) ED Course: 06/21 20:17 Patient arrived in ED. mr 20:35 Triage completed. wg 20:35 Arm band placed on right wrist. wg 20:54 XRAY Chest (1 view) In Process Unspecified. EDMS 20:58 Geovanni Gross PA is PHCP. cp 20:58 Geovanni March MD is Attending Physician. cp 21:22 Inserted saline lock: 20 gauge in right antecubital area, using aseptic technique. 4 Blood collected. 21:34 Negrita Khanna is Primary Nurse. df1 21:36 Urine Drug Screen Sent. df1 21:37 Basic Metabolic Panel Sent. df1 21:37 LFT's Sent. df1 22:29 CT Aorta for Dissection In Process Unspecified. EDMS 06/22 01:12 Troponin I: repeat \T\0100 Sent. df1 01:13 Appears to be sleeping. Patient requests rest room assistance. df1 02:18 Reuben Yates MD is Referral Physician. cp 02:40 Patient has correct armband on for positive identification. Placed in gown. Bed in low df1 position. Call light in reach. Side rails up X 1. Adult w/ patient. 02:40 No provider procedures requiring assistance completed. df1 02:41 IV discontinued, intact. df1 Administered Medications: 06/21 21:48 Drug: morphine 4 mg Route: IVP; Site: right antecubital; df1 21:49 Drug: Reglan (metoCLOPramide) 10 mg Route: IVP; Site: right antecubital; df1 23:55 Drug: Ativan (LORazepam) 1 mg Route: IVP; Site: right antecubital; df1 Outcome: 06/22 02:21 Discharge ordered by . cp 02:40 Discharged to home ambulatory. df1 02:40 Condition: good 02:40 Discharge instructions given to patient, significant other, Instructed on discharge instructions, follow up and referral plans. medication usage, Demonstrated understanding of instructions, follow-up care, medications, Prescriptions given X 3. 02:41 Patient left the ED. df1 Signatures: Dispatcher [employer] EDNM Ann Lindsey mr Geovanni Gross PA PA Murtaza Sheets [facility] Jevon Isaacs, ROBERT wg Negrita Khanna df1
--- NOTE | 2021-06-22 02:21 | EDPHYS ---
Physician Documentation [facility] Name: Chica Flores Age: 65 yrs Sex: Female : 1955 Arrival Date: 06/21/2021 Time: 20:17 Bed 14 Private MD: ED Physician Geovanni March HPI: 06/21 21:00 This 65 yrs old Female presents to ER via Ambulatory with complaints of cp Withdrawals. 21:00 . Patient presents to the emergency department with complaints of concerns for cp withdrawals. Patient reports she has been trying to wean herself off of her clonazepam. Patient reports there was some issues with the prescribing physician due to her recent test that was positive for cocaine and methamphetamine. Patient is unsure of her last dose. Patient complains of chest and abdominal pain and headache.. Historical: - Allergies: 20:35 PENICILLINS; wg 20:35 steroids; Allergy to Oral Steroids, IV is fine; wg - Home Meds: 20:35 Prozac Oral [Active]; Risperdal Oral [Active]; Clonazepam Oral [Active]; wg - PMHx: 20:35 ADD/ADHD; Colitis; Anxiety; Depression; PTSD; Osteoporosis; wg - Immunization history:: Adult Immunizations up to date. - Social history:: Smoking status: Patient reports the use of cigarette tobacco products, Patient denies any tobacco usage or history of. Patient/guardian denies using alcohol, street drugs, IV drugs. ROS: 21:05 Constitutional: Negative for body aches, chills, fever, poor PO intake. cp 21:05 Cardiovascular: Positive for chest pain. cp 21:05 Respiratory: Negative for cough, shortness of breath, wheezing. cp 21:05 Abdomen/GI: Positive for abdominal pain, diarrhea, Negative for vomiting, constipation, black/tarry stool, rectal bleeding. 21:05 Eyes: Negative for injury, pain, redness, and discharge. cp 21:05 Neuro: Positive for headache, Negative for altered mental status, numbness, weakness. 21:05 Psych: Positive for anxiety. 21:05 All other systems are negative. Exam: 21:07 ECG was reviewed by the Attending Physician. cp 21:10 Constitutional: The patient appears in no acute distress, alert, awake, cp non-diaphoretic, non-toxic, well developed, anxious, thin 21:10 Head/Face: Normocephalic, atraumatic. cp 21:10 Eyes: Periorbital structures: appear normal, Pupils: equal, round, and reactive to light and accomodation, Conjunctiva: normal, no exudate, no injection, Sclera: no appreciated abnormality, Lids and lashes: appear normal, bilaterally. 21:10 ENT: External ear(s): are unremarkable, Nose: is normal, Mouth: Lips: moist, Oral mucosa: moist, Posterior pharynx: Airway: no evidence of obstruction, patent. 21:10 Neck: ROM/movement: is normal, is supple, without pain, no range of motions limitations, no meningismus, no nuchal rigidity. 21:10 Chest/axilla: Inspection: normal, Palpation: is normal, no crepitus, no tenderness. 21:10 Cardiovascular: Rate: normal, Rhythm: regular, Edema: is not appreciated, JVD: is not appreciated. 21:10 Respiratory: the patient does not display signs of respiratory distress, Respirations: cp normal, no use of accessory muscles, no retractions, labored breathing, is not present, Breath sounds: are clear throughout, no decreased breath sounds, no stridor, no wheezing. 21:10 Abdomen/GI: Inspection: abdomen appears normal, Bowel sounds: active, all quadrants, Palpation: soft, in all quadrants, moderate abdominal tenderness, in all quadrants, rebound tenderness, is not appreciated, involuntary guarding, is not appreciated. 21:10 Back: CVA tenderness, is absent. 21:10 Neuro: Orientation: to person, place \T\ time. Mentation: is normal, Motor: moves all fours, strength is normal. 21:10 Psych: Behavior/mood is anxious, Patient has no thoughts/intents to harm self or others. Judgement / Insight is normal. Vital Signs: 20:29 BP 141 / 80; Pulse 68; Resp 20; Temp 97.8; Pulse Ox 100% on R/A; Weight 45.36 kg; wg Height 5 ft. 6 in. (167.64 cm); Pain 10; 21:35 BP 170 / 94; Pulse 66; Resp 18; Pulse Ox 100% on R/A; df1 22:45 BP 139 / 104; Pulse 60; Resp 18; Pulse Ox 100% on R/A; df1 06/22 01:12 BP 158 / 79; Pulse 61; Resp 18; Pulse Ox 94% on 2 lpm NC; df1 06/21 20:29 Body Mass Index 16.14 (45.36 kg, 167.64 cm) [facility]: 06/21 20:59 Patient medically screened. wen 21:00 Differential diagnosis: bronchitis, pneumonia UTI, dehydration. 06/22 02:20 Data reviewed: vital signs, nurses notes, lab test result(s), EKG, radiologic studies, cp CT scan, and as a result, I will discharge patient. 02:20 Test interpretation: by ED physician or midlevel provider: ECG. 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 Response to treatment: the patient's symptoms have markedly improved after treatment, and as a result, I will discharge patient. 06/21 20:42 Order name: Urine Drug Screen 06/21 20:42 Order name: Basic Metabolic Panel 06/21 20:42 Order name: CBC with Diff; Complete Time: 22:19 06/21 22:19 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: Normal except: HCT 35.6; EOSINOPHIL % 4.5. 06/21 20:42 Order name: LFT's 06/21 20:42 Order name: Magnesium; Complete Time: 22:19 06/21 20:42 Order name: NT PRO-BNP; Complete Time: 22:19 06/21 20:42 Order name: PT-INR; Complete Time: 22:19 06/21 20:42 Order name: Troponin (emerg Dept Use Only); Complete Time: 22:19 06/21 20:42 Order name: XRAY Chest (1 view) 06/21 20:43 Order name: Urine Drug Screen; Complete Time: 21:35 EDMS 06/21 20:43 Order name: Basic Metabolic Panel; Complete Time: 22:19 [facility] 06/21 22:19 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: Normal except: NA 133; K 3.4; CL 96; CRE 0.53. 06/21 20:43 Order name: Liver (Hepatic) Function; Complete Time: 22:19 EDMS 06/21 21:13 Order name: Urine Dipstick-Ancillary; Complete Time: 21:35 EDMD 06/21 22:42 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: Normal except: UBLD 1+. cp 06/22 00:26 Order name: Troponin I: repeat \T\0100 cp 06/21 20:42 Order name: Urine Dipstick-Ancillary (obtain specimen); Complete Time: 21:15 06/21 20:42 Order name: EKG; Complete Time: 20:43 wg 06/21 20:42 Order name: Cardiac monitoring; Complete Time: 21:14 06/21 20:42 Order name: EKG - Nurse/Tech; Complete Time: 21:36 06/21 20:42 Order name: IV Saline Lock; Complete Time: 21:36 06/21 20:42 Order name: Labs collected and sent; Complete Time: 21:36 06/21 20:42 Order name: O2 Per Protocol; Complete Time: 21:14 06/21 20:42 Order name: O2 Sat Monitoring; Complete Time: 21:15 06/21 21:35 Order name: CT Aorta for Dissection 06/21 23:52 Order name: PO challenge; Complete Time: 01:12 cp EC/15 21:07 Rate is 71 beats/min. Rhythm is regular. QRS [place] is Normal. OK interval is shortened cp at 106 msec. QRS interval is normal. QT interval is normal. T waves are Inverted in lead aVR. Interpreted by me. Reviewed by me. Administered Medications: 21:48 Drug: morphine 4 mg Route: IVP; Site: right antecubital; df1 21:49 Drug: Reglan (metoCLOPramide) 10 mg Route: IVP; Site: right antecubital; df1 23:55 Drug: Ativan (LORazepam) 1 mg Route: IVP; Site: right antecubital; df1 Disposition: 06/22 07:50 Co-signature as Attending Physician, Geovanni March MD I agree with the assessment and wen plan of care. Disposition Summary: 06/22/21 02:21 Discharge Ordered Location: Home cp Problem: an ongoing problem cp Symptoms: have improved cp Condition: Stable cp Diagnosis - Chest pain, unspecified cp - Other abdominal pain - history of colitis cp Followup: cp - With: Reuben Yates MD - When: 2 - 3 days - Reason: history of colitis Discharge Instructions: - Discharge Summary Sheet cp - Nonspecific Chest Pain, Adult cp - Ulcerative Colitis, Adult cp - Aspirin and Your Heart cp Forms: - Medication Reconciliation Form cp - Thank You Letter cp - Antibiotic Education cp - Prescription Opioid Use cp Prescriptions: - Zofran 4 mg Oral Tablet - take 1 tablet by ORAL route every 12 hours As needed; 20 tablet; Refills: 0, cp Product Selection Permitted - Medrol (Herve) 4 mg Oral Tablets, Dose Pack - take 1 tablet by ORAL route as directed - follow package instructions; 1 cp packet; Refills: 0, Product Selection Permitted - dicyclomine 20 mg Oral Tablet - take 1 tablet by ORAL route 4 times per day As needed; 1 tablet; Refills: 0, cp Product Selection Permitted Signatures: Dispatcher [employer] Geovanni Dillard MD MD cha Page, Corey PA PA Jevon Thao, RN Negrita Mendoza df1
[2021-06-22 03:23] VITALS: TEMP 97.8
[2021-06-22 03:27] VITALS: BP 158/79; O2SAT 94
--- NOTE | 2021-06-22 11:45 | RAD REPORT ---
EXAM DESCRIPTION: CT - Angio Aorta For Dissection - 06/22/2021 6:35 am CLINICAL HISTORY: 65 years, Female, abdominal pain;Chest pain COMPARISON: None.. TECHNIQUE: Multiple transaxial tomograms from the thoracic and abdominal aorta from the lung apex to the ischial tuberosities performed before and after the administration of large bolus of IV contrast for complete opacification of the thoracic, abdominal aorta and iliac arteries utilizing 3 mm slice thickness at 3 mm interval reconstruction. 2-D and 3-D multiplanar reformats, volume rendering technique and maximum intensity projection images were generated and reviewed. This exam was performed according to our departmental dose-optimization protocol, which includes auto mated exposure control, adjustment of the mA and/or kV according to patient size and/or use of iterat annetta reconstruction technique. FINDINGS: Thoracic aorta: The thoracic aorta demonstrate normal enhancement. There is no evidence fo r significant thoracic aortic dissection and/or aneurysm. Minimal atherosclerotic plaque is identifie d within the descending portion. The ascending aorta measures 3.2 x 3.1 cm on image 48. The aortic ar ch measures 2.5 cm on image 35. The descending portion measured 2.1 cm on image 63. The aortic arch d emonstrate normal branching pattern with no evidence for significant stenosis and/or occlusion within the proximal arteries. Abdominal aorta: The abdominal aorta demonstrate minimal atheromatous plaque formation. There is no evidence for signi ficant aneurysm and/or dissection. The proximal aspect measured 2.2 x 2.3 cm on image 93. The midport ion measured 1.7 x 1.6 cm on image 102. The distal portion measured 1.5 x 1.6 cm on image 126. The ri ght common iliac measured 0.9 cm on image 138, the left common iliac measured 0.9 cm on image 140. Th e celiac trunk, superior mesenteric artery and inferior mesenteric artery demonstrate to be widely pa tent with no evidence for stenosis and/or occlusion. There are dual supply within the right and left renal arteries with no evidence for significant stenosis. Chest: The lung parenchyma demonstrate demonstrate to be clear. No no significant pulmonary nodules a nd/or masses are identified. The trachea mainstem bronchus demonstrate to be unremarkable. There is n o pleural/or pericardial effusions. The heart is normal in size. Prominence of the left ventricular c hamber. There are minimal coronary artery calcifications. There is no significant mediastinal and/or hilar lymphadenopathy. The pulmonary arteries demonstrate to be within normal limits. There is no scottie dence for significant filling defects double suggest pulmonary embolus. The axillary regions demonstr ate to be clear. The bone windows demonstrate diffuse bony osteopenia with questionable small superio r plate compression deformity at T8. There are no significant skeletal lesions. Minimal degenerative disc disease T9-T12. Abdomen and pelvis: The liver, gallbladder, spleen, adrenal glands, pancreas demonstrate to be unrema rkable. The kidneys demonstrate normal uptake of contrast media. There is no evidence for significant hydrone phrosis and/or nephrolithiasis There is no evidence for hydronephrosis and/or hydroureter. The stomach demonstrated presence of partial distention with the food content the body/antrum. The sm all bowel demonstrate to be within normal limits. There is significant fecal residue throughout the l arge bowel suggesting the possibility of constipation. The urinary bladder demonstrate to be unremarkable. The uterus is normal. There are no significant ad nexal masses. There is no retroperitoneal lymphadenopathy. There is no evidence for ascites. The bone windows demonstrate superior plate compression deformity at L1. Degenerative disc disease at L4/L5 IMPRESSION: No evidence for significant aneurysm and/or dissection of the thoracic or abdominal aort a. Diffuse bony osteopenia with small superior plate compression deformity at T8 and L1. Degenerative disc disease at L4/L5. Significant fecal residue throughout the large bowel suggesting the possibility of constipation. Electronically signed by: Juan Carlos Krishnan MD 06/21/2021 11:26 PM CDT Due to temporary technical issues with the PACS/Fluency reporting system, reports are being signed by the in house radiologist without review as a courtesy to ensure prompt reporting. The interpreting r adiologist is fully responsible for the content of the report.
== END 2021-06-22 02:41 | disposition home or self-care (01) ==
LOC: ER 20:13
DX: R07.9 Chest pain, unspecified (principal); R10.9 Unspecified abdominal pain; K52.9 Noninfective gastroenteritis and colitis, unspecified; F41.8 Other specified anxiety disorders; Z72.0 Tobacco use; Z88.0 Allergy status to penicillin; Z88.8 Allergy status to other drugs, medicaments and biological substances
CPT/HCPCS: 93005; 85025; 80048; 36415; 83735; 85610; 80076; 81003; 84484 ×2; 83880; 80307; 71275; 74175; 71045; 96375; 96374; 99284; J2765

== ENCOUNTER 2021-07-03 11:04 | Emergency (ER) | payer BC ==
[2021-07-03 12:36] LABS: Urine Blood 1+ (Negative); Urine Glucose Negative (Negative); Urine Protein Negative (Negative); Urine Specific Gravity 1.015 (1.005-1.030); Urine pH 7.5 (5.0-7.0)
--- NOTE | 2021-07-03 12:41 | RAD REPORT ---
EXAM DESCRIPTION: CT - Head C Spine Cap W Solomon - 07/03/2021 12:20 pm CLINICAL HISTORY: PAIN, fall with head, neck, chest and abdomen pain. Pain is primarily left ribcage move to COMPARISON: Chest Single View dated 07/03/2021; Angio Aorta For Dissection dated 06/21/2021 TECHNIQUE: Axial [address] head images were obtained. Axial [address] cervical spine images were obtaine d with sagittal and coronal reconstruction images reviewed. During dynamic enhancement of 100mL non-i onic contrast, axial 5 mm images of the chest, abdomen and pelvis were obtained. Biphasic technique p erformed of the abdomen and pelvis. All CT scans are performed using dose optimization technique as appropriate and may include automated exposure control or mA/KV adjustment according to patient size. FINDINGS: No intracranial hemorrhage, mass or edema. No midline shift or abnormal fluid collection. Mastoid air cells are clear. Patient has minimal atrophy with normal size ventricles. Arterial and physiologic calcifications are present. No skull fracture. Orbits, facial bones and sinuses are sepa rately detailed. Cervical bodies are normal in height. Reversal of the usual cervical lordosis present at C4 level. Ve ry slight anterior subluxation of C2 on C3 noted. This is believed to be degenerative in etiology. Mi ld disc space narrowing seen from C2-C6. Mild bony foraminal encroachment seen C5-6 and C6-7. No para spinal mass or hematoma seen. Central canal detail is inherently limited. Concerns for traumatic disc herniation or traumatic cord injury can be further addressed with MR imaging. CT chest shows no pneumothorax, pulmonary contusion or pleural fluid collection. Lung crews are hype rexpanded and there is flattening of the diaphragm. No mediastinal hematoma and the aorta and pulmona ry arteries are unremarkable. No chest will mass or abnormal axillary finding. No displaced rib fract ure or other significant bony finding. Patient has old lateral left 6-[address] abdomen and pelvis show no injury to solid abdominal viscera. Gallbladder and biliary tree are unr emarkable. No acute bowel injury seen. Patient has a very large stool volume dilating the tortuous si gmoid colon with an overall large stool volume throughout the remainder of the colon sparing only the rectum. A stricture or mass is not evident on this study. No free air, free fluid or abnormal strand ing. No urinary bladder abnormality. Disc and bone degenerative changes are present. Partial compression of T8 and L1 are not new. No significant vascular finding. IMPRESSION: No intracranial abnormality. Orbits, facial bones and sinuses are separately detailed. Cervical spine degenerative change without acute finding. COPD with no acute pleural or parenchymal finding. Old rib fractures are present on the left but no n ew rib fractures seen. No acute traumatic injury to the abdomen or pelvis. Patient has a very large stool volume distending and dilating the colon sparing the rectum. No masses seen at the rectosigmoid junction.
--- NOTE | 2021-07-03 12:43 | RAD REPORT ---
EXAM DESCRIPTION: CT - Facial Bones W/ Mpr - 07/03/2021 12:20 pm CLINICAL HISTORY: Fall, facial trauma COMPARISON: CT head same date TECHNIQUE: Axial 2 millimeter thick images of the facial bones were obtained with sagittal and coron al reconstruction imaging. All CT scans are performed using dose optimization technique as appropriate and may include automated exposure control or mA/KV adjustment according to patient size. FINDINGS: No fracture of the mandible is identified. Condyles are normally positioned. Mastoid air c ells are clear. There is no skullbase fracture identifiable. Paranasal sinuses are clear of acute fin ding. There is right deviation of the anterior and mid nasal septum. No facial bone fracture is ident ifiable. No significant soft tissue findings noted. No globe or orbital content injury. There is a sm all left frontal scalp hematoma. Underlying bone and frontal sinus are intact. IMPRESSION: No facial bone fractures seen. No sinus, orbit or facial bone significant finding. Small left frontal scalp hematoma.
[2021-07-03 13:00] LABS: Absolute Lymphocytes (CBC) 0.9 K/uL (0.7-4.9); Basophils % 0.8 % (0-1.3); Hematocrit 37.6 % (36.0-45.0); Lymphocytes % 16.6 % (15.3-44.8); MPV 8.8 fL (7.6-11.3); RBC Red Blood Cell Count 4.07 M/uL (3.86-4.86)
--- NOTE | 2021-07-03 13:03 | RAD REPORT ---
EXAM DESCRIPTION: RAD - Chest Single View - 07/03/2021 12:07 pm CLINICAL HISTORY: BLUNT CHEST TRAUMA, fall with left-sided rib pain COMPARISON: August 2020 chest film TECHNIQUE: AP portable chest image was obtained 07/03/2021 12:07 pm . FINDINGS: Chronic interstitial lung disease is evident with no pulmonary contusion or acute lung par enchymal process. Heart and vasculature are normal. No measurable pleural effusion and no pneumothora x. No gross rib deformity seen. No acute aortic findings suspected. IMPRESSION: No acute cardiopulmonary process. Underlying COPD findings are present similar to comparison.
[2021-07-03] MEDS ORDERED: ONDANSETRON 4 MG/2 ML VIAL ONE (13:20)
[2021-07-03] MEDS ORDERED: MORPHINE 2 MG/ML SYR ONE (13:20)
[2021-07-03 13:21] LABS: ALT/SGPT 62 U/L (12-78); AST/SGOT 39 U/L (15-37); Albumin 4.3 g/dL (3.4-5.0); Alkaline Phosphatase 105 U/L (45-117); BUN Blood Urea Nitrogen 6 mg/dL (7-18); Bicarbonate 32 mmol/L (21-32); Bilirubin Direct < 0.1 mg/dL (0-0.2); Bilirubin Total 0.3 mg/dL (0.2-1.0); Glucose Level 95 mg/dL (74-106); Potassium 3.3 mmol/L (3.5-5.1); Protein, Total 7.5 g/dL (6.4-8.2); Sodium Level 137 mmol/L (136-145)
[2021-07-03] MEDS ORDERED: NA CHLORIDE 0.9% 1,000 ML ONE (13:21)
[2021-07-03] MEDS ORDERED: NA CHLORIDE 0.9% 500 ML ONE (13:21)
--- NOTE | 2021-07-03 13:44 | EDPHYS ---
Physician Documentation [facility] Name: Chica Flores Age: 65 yrs Sex: Female : 1955 Arrival Date: 07/03/2021 Time: 11:07 Bed 12 Private MD: ED Physician Geovanni March HPI: 07/03 13:33 This 65 yrs old Female presents to ER via Wheelchair with complaints of Fall wen Injury - rib pain. 13:33 Details of fall: The patient fell from an upright position, while walking. Onset: The wen symptoms/episode began/occurred 2 day(s) ago. Associated injuries: The patient sustained injury to the head, injury to the chest, specifically the anterior aspect of left upper chest, left lateral posterior chest, left lateral anterior chest and left breast, tenderness. Severity of symptoms: At their worst the symptoms were mild, in the emergency department the symptoms are unchanged. The patient has not experienced similar symptoms in the past. Historical: - Allergies: 11:31 PENICILLINS; aa5 11:31 steroids; Allergy to Oral Steroids, IV is fine; aa5 - PMHx: 11:31 ADD/ADHD; Anxiety; Colitis; Depression; Osteoporosis; PTSD; ulcerative ulcer; aa5 - Immunization history:: Client reports receiving the 2nd dose of the Covid vaccine. - Social history:: Smoking status: Patient denies any tobacco usage or history of. ROS: 13:34 Constitutional: Negative for fever, chills, and weight loss, Eyes: Negative for injury, wen pain, redness, and discharge, Neck: Negative for injury, pain, and swelling, Cardiovascular: Negative for chest pain, palpitations, and edema, Abdomen/GI: Negative for abdominal pain, nausea, vomiting, diarrhea, and constipation, Back: Negative for injury and pain, : Negative for injury, bleeding, discharge, and swelling, MS/Extremity: Negative for injury and deformity, Skin: Negative for injury, rash, and discoloration, Neuro: Negative for headache, weakness, numbness, tingling, and seizure, Psych: Negative for depression, anxiety, suicide ideation, homicidal ideation, and hallucinations, Allergy/Immunology: Negative for hives, rash, and allergies, Endocrine: Negative for neck swelling, polydipsia, polyuria, polyphagia, and marked weight changes, Hematologic/Lymphatic: Negative for swollen nodes, abnormal bleeding, and unusual bruising. 13:34 ENT: Positive for Teeth pain right upper lip ecchymosis. Exam: 13:34 Constitutional: This is a well developed, well nourished patient who is awake, alert, wen and in no acute distress. Eyes: Pupils equal round and reactive to light, extra-ocular motions intact. Lids and lashes normal. Conjunctiva and sclera are non-icteric and not injected. Cornea within normal limits. Periorbital areas with no swelling, redness, or edema. ENT: Nares patent. No nasal discharge, no septal abnormalities noted. Tympanic membranes are normal and external auditory canals are clear. Oropharynx with no redness, swelling, or masses, exudates, or evidence of obstruction, uvula midline. Mucous membranes moist. Neck: Trachea midline, no thyromegaly or masses palpated, and no cervical lymphadenopathy. Supple, full range of motion without nuchal rigidity, or vertebral point tenderness. No Meningismus. Chest/axilla: Normal chest wall appearance and motion. Nontender with no deformity. No lesions are appreciated. Cardiovascular: Regular rate and rhythm with a normal S1 and S2. No gallops, murmurs, or rubs. Normal PMI, no JVD. No pulse deficits. Abdomen/GI: Soft, non-tender, with normal bowel sounds. No distension or tympany. No guarding or rebound. No evidence of tenderness throughout. Back: No spinal tenderness. No costovertebral tenderness. Full range of motion. Female : Normal external genitalia. Skin: Warm, dry with normal turgor. Normal color with no rashes, no lesions, and no evidence of cellulitis. MS/ Extremity: Pulses equal, no cyanosis. Neurovascular intact. Full, normal range of motion. Neuro: Awake and alert, GCS 15, oriented to person, place, time, and situation. Cranial nerves II-XII grossly intact. Motor strength 5/5 in all extremities. Sensory grossly intact. Cerebellar exam normal. Normal gait. Psych: Awake, alert, with orientation to person, place and time. Behavior, mood, and affect are within normal limits. 13:34 Head/face: Noted is hematoma, swelling, that is mild, of the mouth. 13:34 Respiratory: the patient does not display signs of respiratory distress, Respirations: normal, Breath sounds: are clear throughout, Respiratory rate: 20 Vital Signs: 11:30 BP 169 / 88; Pulse 87; Resp 16 S; Temp 99.0(TE); Pulse Ox 100% on R/A; Weight 49.9 kg aa5 (R); Height 5 ft. 6 in. (167.64 cm) (R); 12:52 BP 172 / 89; Pulse 76; Resp 20; Pulse Ox 100% on R/A; ld1 11:30 Body Mass Index 17.75 (49.90 kg, 167.64 cm) aa5 MDM: 11:34 Patient medically screened. [facility] 13:41 Differential diagnosis: pneumonia, Pneumothorax pulmonary edema, Blunt Chest Trauma wen Chest Wall Contusion Chest Wall Injury Pleural Effusion Pneumothorax Pulmonary Contusion Rib Fracture. Antibiotic administration: Not indicated. Differential diagnosis: closed head injury, contusion, fracture, multiple trauma, sprain, strain. The patient's Wells Deep Vein Thrombosis Score was calculated as follows: Total Score: 0-2 Pts- Low Risk. The patient's pulmonary embolism risk score was calculated as follows: Total Score: 0-2 points. This patient was found to be at low risk for a pulmonary embolism by using the Well's assessment criteria. Immunization status: Pneumococcal vaccine: Influenza vaccine: Data reviewed: vital signs, nurses notes, lab test result(s), EKG, radiologic studies, CT scan, plain films. Data interpreted: equipment monitor phototypesetting: rate is 76 beats/min, rhythm is regular. Test interpretation: by ED physician or midlevel provider: ECG, plain radiologic studies. 07/03 11:36 Order name: Basic Metabolic Panel; Complete Time: 13:32 [facility] 07/03 11:36 Order name: CBC with Diff; Complete Time: 13:32 [facility] 07/03 11:36 Order name: Type And Screen [facility] 07/03 11:36 Order name: CT Traumagram (Head C Spine CAP W Con); Complete Time: 12:56 [facility] 07/03 11:36 Order name: LFT's; Complete Time: 13:32 [facility] 07/03 12:36 Order name: Urine Dipstick-Ancillary; Complete Time: 12:56 [facility] 07/03 11:36 Order name: XRAY Chest (1 view); Complete Time: 13:32 [facility] 07/03 11:36 Order name: CT Facial Bones W/O Con; Complete Time: 12:56 [facility] 07/03 11:36 Order name: Labs collected and sent; Complete Time: 12:34 [facility] 07/03 11:36 Order name: Urine Dipstick-Ancillary (obtain specimen); Complete Time: 12:33 [facility] 07/03 13:33 Order name: PO challenge: juice; Complete Time: 14:02 wen Administered Medications: 13:04 Drug: Zofran (Ondansetron) 4 mg Route: IVP; Site: right forearm; ld1 13:05 Drug: NS 0.9% 500 ml Route: IV; Rate: bolus; Site: right forearm; ld1 13:05 Drug: morphine 2 mg Route: IVP; Site: right forearm; ld1 13:06 Drug: NS 0.9% 1000 ml Route: IV; Rate: 125 ml/hr; Site: right forearm; ld1 13:30 Drug: [place] (HYDROcodone-acetaminophen) (7.5 mg-325 mg) 1 tabs Route: PO; ld1 14:02 Follow up: Response: No adverse reaction ld1 Disposition Summary: 07/03/21 13:44 Discharge Ordered Location: Home wen Problem: new wen Symptoms: have improved wen Condition: Stable wen Diagnosis - Hypokalemia wen - Fall on same level, unspecified wen - Contusion of left back wall of thorax wen - Contusion of left front wall of thorax wen - Contusion of lip wen Followup: wen - With: Private Physician - When: 2 - 3 days - Reason: Recheck today's complaints, Continuance of care, Re-evaluation by your physician Discharge Instructions: - Discharge Summary Sheet wen - Potassium Content of Foods wen - Fall Prevention in the Home, Adult wen - How to Use an Incentive Spirometer wen - Fall Prevention in the Home, Adult, [id number] wen - Rib Fracture wen - Hypokalemia wen - Rib Fracture, [id number] wen - Blunt Chest Trauma wen Forms: - Medication Reconciliation Form wen - Thank You Letter wen - Antibiotic Education wen - Prescription Opioid Use wen Prescriptions: - Motrin IB 200 mg Oral Tablet - take 2 tablet by ORAL route every 6 hours As needed as needed with food; 20 wen tablet; Refills: 0, Product Selection Permitted - Tylenol-Codeine #3 300 mg-30 mg Oral - take 1 tablet by ORAL route every 4-6 hours; 15 tablet; Refills: 0, Product wen Selection Permitted Signatures: Dispatcher [employer] EDGeovanni Hou MD MD cha Calderon, Audri, RN RN aa5 Carmen Leone RN RN ld1 Corrections: (The following items were deleted from the chart) 12:34 11:37 [email or web address] ordered. EDMS EDMS
--- NOTE | 2021-07-03 13:44 | ER ---
Nurse's Notes [facility] Name: Chica Flores Age: 65 yrs Sex: Female : 1955 Arrival Date: 07/03/2021 Time: 11:07 Bed 12 Private MD: Diagnosis: Hypokalemia;Fall on same level, unspecified;Contusion of left back wall of thorax;Contusion of left front wall of thorax;Contusion of lip Presentation: 07/03 11:30 Chief complaint: Patient states: "I fell at 3 am today, I reached for the toilet paper aa5 and I hit my face on a marble top so my top lip is bruised now and I also hurt the left side of my ribs too". Coronavirus screen: At this time, the client does not indicate any symptoms associated with coronavirus-19. Ebola Screen: Patient negative for fever greater than or equal to 101.5 degrees Fahrenheit, and additional compatible Ebola Virus Disease symptoms. Initial Sepsis Screen: Does the patient meet any 2 criteria? No. Patient's initial sepsis screen is negative. Does the patient have a suspected source of infection? No. Patient's initial sepsis screen is negative. Risk Assessment: Do you want to hurt yourself or someone else? Patient reports no desire to harm self or others. Onset of symptoms was July 03, 2021. 11:30 Method Of Arrival: Wheelchair aa5 11:30 Acuity: ANITA 4 aa5 11:38 Acuity: ANITA 3 iw Historical: - Allergies: 11:31 PENICILLINS; aa5 11:31 steroids; Allergy to Oral Steroids, IV is fine; aa5 - PMHx: 11:31 ADD/ADHD; Anxiety; Colitis; Depression; Osteoporosis; PTSD; ulcerative ulcer; aa5 - Immunization history:: Client reports receiving the 2nd dose of the Covid vaccine. - Social history:: Smoking status: Patient denies any tobacco usage or history of. Screenin:52 Abuse screen: Denies threats or abuse. Denies injuries from another. Nutritional ld1 screening: No deficits noted. Tuberculosis screening: No symptoms or risk factors identified. Fall Risk None identified. Assessment: 12:52 General: Appears in no apparent distress. uncomfortable, Behavior is calm, cooperative, ld1 appropriate for age. Pain: Complains of pain in diaphragm Pain does not radiate. Pain currently is 8 out of 10 on a pain scale. Quality of pain is described as throbbing, Pain began 1 day ago. Is continuous. Neuro: Level of Consciousness is awake, alert, obeys commands, Oriented to person, place, time, situation. Cardiovascular: Capillary refill < 3 seconds Patient's skin is warm and dry. Respiratory: Airway is patent Respiratory effort is even, unlabored, Respiratory pattern is regular, symmetrical. GI: Abdomen is flat, non-distended. : No signs and/or symptoms were reported regarding the genitourinary system. EENT: No signs and/or symptoms were reported regarding the EENT system. Derm: No signs and/or symptoms reported regarding the dermatologic system. Musculoskeletal: Reports pain in diaphragm. Vital Signs: 11:30 BP 169 / 88; Pulse 87; Resp 16 S; Temp 99.0(TE); Pulse Ox 100% on R/A; Weight 49.9 kg aa5 (R); Height 5 ft. 6 in. (167.64 cm) (R); 12:52 BP 172 / 89; Pulse 76; Resp 20; Pulse Ox 100% on R/A; ld1 11:30 Body Mass Index 17.75 (49.90 kg, 167.64 cm) aa5 ED Course: 11:07 Patient arrived in ED. as 11:30 Arm band placed on. aa5 11:31 Triage completed. aa5 11:34 Geovanni March MD is Attending Physician. [facility] 11:34 Naty De Souza, RN is Primary Nurse. iw 12:06 XRAY Chest (1 view) In Process Unspecified. EDMS 12:20 CT Traumagram (Head C Spine CAP W Con) In Process Unspecified. EDMS 12:20 CT Facial Bones W/O Con In Process Unspecified. EDMS 12:52 Patient has correct armband on for positive identification. Bed in low position. Call ld1 light in reach. Side rails up X2. Pulse ox on. NIBP on. Door closed. Noise minimized. Warm blanket given. 12:52 No provider procedures requiring assistance completed. Inserted saline lock: 22 gauge ld1 in right forearm, using aseptic technique. Blood collected. 14:02 IV discontinued, intact, bleeding controlled, No redness/swelling at site. ld1 Administered Medications: 13:04 Drug: Zofran (Ondansetron) 4 mg Route: IVP; Site: right forearm; ld1 13:05 Drug: NS 0.9% 500 ml Route: IV; Rate: bolus; Site: right forearm; ld1 13:05 Drug: morphine 2 mg Route: IVP; Site: right forearm; ld1 13:06 Drug: NS 0.9% 1000 ml Route: IV; Rate: 125 ml/hr; Site: right forearm; ld1 13:30 Drug: [place] (HYDROcodone-acetaminophen) (7.5 mg-325 mg) 1 tabs Route: PO; ld1 14:02 Follow up: Response: No adverse reaction ld1 Outcome: 13:44 Discharge ordered by . wen 14:02 Discharged to home via wheelchair, with family. ld1 14:02 Condition: stable 14:02 Discharge instructions given to patient, family, Instructed on discharge instructions, follow up and referral plans. medication usage, Demonstrated understanding of instructions, follow-up care, medications, Prescriptions given X 2. 14:03 Patient left the ED. ld1 Signatures: Dispatcher [employer] EDMS Geovanni March MD MD cha Martinez, Amelia as Williams, Irene, RN RN iw Calderon, Audri, RN RN aa5 Carmen Leone RN RN ld1
[2021-07-03] MEDS ORDERED: HYDROCODONE/APAP 7.5/325 MG TAB ONE (14:13)
[2021-07-04 03:18] VITALS: TEMP 99; O2SAT 100
[2021-07-04 03:20] VITALS: BP 172/89
== END 2021-07-03 14:03 | disposition home or self-care (01) ==
LOC: ER 11:04
DX: S20.222A Contusion of left back wall of thorax, initial encounter (principal); S20.212A Contusion of left front wall of thorax, initial encounter; S00.531A Contusion of lip, initial encounter; E87.6 Hypokalemia; W18.30XA Fall on same level, unspecified, initial encounter; Y93.01 Activity, walking, marching and hiking; Z88.0 Allergy status to penicillin; Z88.8 Allergy status to other drugs, medicaments and biological substances
CPT/HCPCS: 85025; 80048; 36415; 86900; 86850; 86901; 80076; 81003; 70450; 72125; 71260; 70486; 76377; 74177; 71045; 96375; 96374; 99284; Q9967; J2270; J7040; J7030; J2405

== ENCOUNTER 2021-12-16 22:13 | Emergency (ER) | payer BC ==
--- OUTSIDE RECORDS SUMMARY | 2021-12-16 22:22 | XMS REPORT | Continuity of Care Document ---
:1955 Author Organization [facility] t Address [address] [place] [address] Care Team Providers Name Role Phone Doctor Unassigned, Name Attending Clinician Unavailable Adin Espinoza RN Attending Clinician Singer BERMUDEZ Attending Clinician Grupo PRICE Attending Clinician Kem Pierce MD Attending Clinician Mara PRICE Attending Clinician Attending Clinician Unavailable SYDNIE Attending Clinician Unavailable Zak Rosen DO Attending Clinician Germán JONES Attending Clinician Unavailable Zak ROSEN Attending Clinician Unavailable Kem Pierce MD Admitting Clinician SYDNIE Admitting Clinician Unavailable Payers Payer Name Policy Type Policy Number Effective Date Expiration Date Ronaldo ROSALES [facility] [id number] 2017 00:00:00 Advance Directives Directive Decision Effective Termination Comments Source Date Date Healthcare Agents on N/A [facility] RelationshipCommunicationMilwaukee [facility][note 3] Care [phone] (Mobile) Problems Condition Condition Condition Status Onset Resolution Last Treating Co mments Source Name Details Category Date Date Treatment Clinician Date E46 E46 Disease Active Univers Unspecifie Unspecifie 08 it y of d severe d severe 00:00: [place] protein-ca protein-ca 00 Me dical rohit bee [place] malnutriti malnutriti on on AMS AMS Disease Active Univers (altered (altered 07 ity of mental mental 00:00: [place] status) status) 00 Medical Branch No known No known Disease Unive rs active active ity of problems problems [facility] Allergies, Adverse Reactions, Alerts Allergy Allergy Status Severity Reaction(s) Onset Inactive Treating Comm ents Source Name Type Date Date Clinician SHELLFIS DRUG Active Unknown-Cmnt Un jennie H INGREDI 11-06 ity of DERIVED 00:00: [place] 00 Medical Branch Shellfis Propensi Active Unknown - Uni vers h ty to See comments 11-06 ity of Derived adverse 00:00: [place] reaction 00 Medical s Branch BEEF Drug Active N/V Univers CONTAINI Class 1-11 ity of NG 00:00: [place] PRODUCTS 00 Medical Branch Beef Propensi Active Nausea Univers Containi ty to and/or 1-11 ity of ng adverse Vomiting 00:00: [place] Products reaction 00 Medica l s Branch Penicill Propensi Active Anaphylaxis 2017-10 U nivers ins ty to 2-13 ity of adverse 00:00: [place] reaction 00 Medical s Branch Predniso Propensi Active Nausea 2017-10 Oral Univer s ne ty to and/or 2-13 ity of adverse Vomiting 00:00: [place] reaction 00 Medical s Branch PENICILL Drug Active Anaphylaxis 2017-10 Uni vers INS Class 2-13 ity of 00:00: [place] 00 Medical Branch PREDNISO DRUG Active N/V 2017-10 Univers NE INGREDI 2-13 ity of 00:00: [place] 00 Medical Branch Social History Social Habit Start Date Stop Date Quantity Comments Source Exposure to Not sure [facility] SARS-CoV-2 (event) Medica l Branch Tobacco use and 2020-10-19 2020-10-19 Never used [facility] [place] exposure 00:00:00 00:00:00 Medical Branch History SDOH 2020-10-16 2020-10-16 13 [facility] Education 00:00:00 00:00:00 Medical Branch History SDOH 2020-10-16 2020-10-16 3 [facility] Financial 00:00:00 00:00:00 Medical Branch History SDOH Food 2020-10-16 2020-10-16 2 [facility] Worry 00:00:00 00:00:00 Medical Branch History SDOH Food 2020-10-16 2020-10-16 2 [facility] Scarcity 00:00:00 00:00:00 Medical Branch History SDGA 2020-10-16 2020-10-16 2 [facility] Transport Med 00:00:00 00:00:00 Medical Bra nch History SDGA 2020-10-16 2020-10-16 2 [facility] Transport Non-Med 00:00:00 00:00:00 Medical Branch Sex [birth year] [facility] 00:00:00 00:00:00 Medical Branch Smoking Status Start Date Stop Date Source Former smoker 2020-10-19 00:00:00 2020-10-19 00:00:00 [facility] Medical [place] Unknown if ever smoked [facility] Medications Ordered Filled Start Stop Current Ordering Indication Dosage Frequency Signature Comments Components Source Medication Medication Date Date Medication? Clinician (SIG) Name Name thiamine Yes [id number] 100mg Take 1 U nivers 100 mg 2-05 tablet by ity of tablet 00:00: [facility] 00 daily. Medical Branch thiamine Yes [id number] 100mg Take 1 U nivers 100 mg 2-05 tablet by ity of tablet 00:00: [facility] 00 daily. Medical Branch thiamine Yes [id number] 100mg Take 1 U nivers 100 mg 2-05 tablet by ity of tablet 00:00: [facility] 00 daily. Medical Branch thiamine Yes [id number] 100mg Take 1 U nivers 100 mg 2-05 tablet by ity of tablet 00:00: [facility] 00 daily. Medical Branch thiamine Yes [id number] 100mg Take 1 U nivers 100 mg 2-05 tablet by ity of tablet 00:00: mouth [place] 00 daily. Medical Branch thiamine 2020- Yes [id number] 100mg Take 1 U nivers 100 mg 2-05 tablet by ity of tablet 00:00: mouth [place] 00 daily. Medical Branch fluoxetine Yes Take by Uni vers HCl (PROZAC 2-04 mouth. ity of ORAL) 19:18: [place] 35 Medical Branch gabapentin Yes Take by Uni vers ER 300 mg 2-04 mouth ity of tablet, 19:18: daily. [place] extended 35 Medical release 24 Branch hr proMETHazin Yes 12.5mg Take 12.5 Univers e 25 mg 2-04 mg by ity of tablet 19:18: mouth [place] [address] every 6 Medical (six) Branch hours as needed. prazosin 1 Yes 1mg Take 1 mg Un jennie mg capsule 2-04 by mouth ity o f 19:18: at [place] [address] bedtime. Medical Branch traZODone Yes 50mg Take 50 mg Un jennie 50 mg 2-04 by mouth ity of tablet 19:18: at [place] [address] bedtime. Medical Branch levETIRAcet Yes 500mg Take 500 U nivers am 500 mg 2-04 mg by ity of tablet 19:18: mouth 2 [place] 35 (two) Medical times Branch daily. fluoxetine Yes Take by Uni vers HCl (PROZAC 2-04 mouth. ity of ORAL) 19:18: [place] 35 Medical Branch gabapentin Yes Take by Uni vers ER 300 mg 2-04 mouth ity of tablet, 19:18: daily. [place] extended 35 Medical release 24 Branch hr proMETHazin Yes 12.5mg Take 12.5 Univers e 25 mg 2-04 mg by ity of tablet 19:18: mouth [place] [address] every 6 Medical (six) Branch hours as needed. prazosin 1 Yes 1mg Take 1 mg Un jennie mg capsule 2-04 by mouth ity o f 19:18: at [place] [address] bedtime. Medical Branch traZODone Yes 50mg Take 50 mg Un jennie 50 mg 2-04 by mouth ity of tablet 19:18: at [place] [address] bedtime. Medical Branch levETIRAcet Yes 500mg Take 500 U nivers am 500 mg 2-04 mg by ity of tablet 19:18: mouth 2 [place] 35 (two) Medical times Branch daily. fluoxetine Yes Take by Uni vers HCl (PROZAC 2-04 mouth. ity of ORAL) 19:18: [place] [address] Medical Branch gabapentin Yes Take by Uni vers ER 300 mg 2-04 mouth ity of tablet, 19:18: daily. [place] extended Medical release 24 Branch hr proMETHazin Yes 12.5mg Take 12.5 Univers e 25 mg 2-04 mg by ity of tablet 19:18: mouth [place] [address] every 6 Medical (six) Branch hours as needed. prazosin 1 Yes 1mg Take 1 mg Un jennie mg capsule 2-04 by mouth ity o f 19:18: at [place] [address] bedtime. Medical Branch traZODone Yes 50mg Take 50 mg Un jennie 50 mg 2-04 by mouth ity of tablet 19:18: at [place] [address] bedtime. Medical Branch levETIRAcet Yes 500mg Take 500 U nivers am 500 mg 2-04 mg by ity of tablet 19:18: mouth 2 [place] 35 (two) Medical times Branch daily. fluoxetine Yes Take by Uni vers HCl (PROZAC 2-04 mouth. ity of ORAL) 19:18: [place] [address] Medical Branch gabapentin Yes Take by Uni vers ER 300 mg 2-04 mouth ity of tablet, 19:18: daily. [place] [address] Medical release 24 Branch hr proMETHazin Yes 12.5mg Take 12.5 Univers e 25 mg 2-04 mg by ity of tablet 19:18: mouth [place] [address] every 6 Medical (six) Branch hours as needed. prazosin 1 Yes 1mg Take 1 mg Un jennie mg capsule 2-04 by mouth ity o f 19:18: at [place] [address] bedtime. Medical Branch traZODone Yes 50mg Take 50 mg Un jennie 50 mg 2-04 by mouth ity of tablet 19:18: at [place] [address] bedtime. Medical Branch levETIRAcet Yes 500mg Take 500 U nivers am 500 mg 2-04 mg by ity of tablet 19:18: mouth 2 [place] 35 (two) Medical times Branch daily. fluoxetine 2020- Yes Take by Uni vers HCl (PROZAC 2-04 mouth. ity of ORAL) 19:18: [place] Medical Branch gabapentin 2020-0 Yes Take by Uni vers ER 300 mg 2-04 mouth ity of tablet, 19:18: daily. [place] extended Medical release 24 Branch hr proMETHazin 2020- Yes 12.5mg Take 12.5 Univers e 25 mg 2-04 mg by ity of tablet 19:18: mouth [place] [address] every 6 Medical (six) Branch hours as needed. prazosin 1 Yes 1mg Take 1 mg Un jennie mg capsule 2-04 by mouth ity o f 19:18: at [place] [address] bedtime. Medical Branch traZODone Yes 50mg Take 50 mg Un jennie 50 mg 2-04 by mouth ity of tablet 19:18: at [place] [address] bedtime. Medical Branch levETIRAcet Yes 500mg Take 500 U nivers am 500 mg 2-04 mg by ity of tablet 19:18: mouth 2 [place] [address] (two) Medical times Branch daily. fluoxetine Yes Take by Uni vers HCl (PROZAC 2-04 mouth. ity of ORAL) 19:18: [place] [address] Medical Branch gabapentin Yes Take by Uni vers ER 300 mg 2-04 mouth ity of tablet, 19:18: daily. [place] extended Medical release 24 Branch hr proMETHazin Yes 12.5mg Take 12.5 Univers e 25 mg 2-04 mg by ity of tablet 19:18: mouth [place] [address] every 6 Medical (six) Branch hours as needed. prazosin 1 Yes 1mg Take 1 mg Un jennie mg capsule 2-04 by mouth ity o f 19:18: at [place] [address] bedtime. Medical Branch traZODone 2020-0 Yes 50mg Take 50 mg Un jennie 50 mg 2-04 by mouth ity of tablet 19:18: at [place] [address] bedtime. Medical Branch levETIRAcet Yes 500mg Take 500 U nivers am 500 mg 2-04 mg by ity of tablet 19:18: mouth 2 [place] 35 (two) Medical times Branch daily. alprazolam 2020- No Take by Un jennie (XANAX 11-10 mouth. ity of ORAL) 16:15: 00:00 [place] 51 :00 Medical Branch lisinopriL 2020- No 40mg Take 40 mg Univers 40 mg 11-10 by mouth ity of tablet 16:15: 00:00 daily. [place] 51 :00 [facility] Branch buPROPion 2020- No 75mg Take 75 mg U nivers 75 mg 11-10 by mouth ity of tablet 16:15: 00:00 daily. [place] 51 :00 [facility] Branch LORazepam 2 2020- Yes [id number] 10mg Take 5 Univers mg tablet 2-04 tablets by ity of 00:00: mouth 3 [place] (three) Medical times Branch daily. LORazepam 2 2020- Yes [id number] 10mg Take 5 Univers mg tablet 2-04 tablets by ity of 00:00: mouth 3 [place] (three) Medical times Branch daily. LORazepam 2 2020- Yes [id number] 10mg Take 5 Univers mg tablet 2-04 tablets by ity of 00:00: mouth 3 [place] (three) Medical times Branch daily. LORazepam 2 2020- Yes [id number] 10mg Take 5 Univers mg tablet 2-04 tablets by ity of 00:00: mouth 3 [place] (three) Medical times Branch daily. LORazepam 2 2020- Yes [id number] 10mg Take 5 Univers mg tablet 2-04 tablets by ity of 00:00: mouth 3 [place] (three) Medical times Branch daily. LORazepam 2 2020- Yes [id number] 10mg Take 5 Univers mg tablet 2-04 tablets by ity of 00:00: mouth 3 [place] (three) Medical times Branch daily. lisinopriL No 2.5mg 2.5 mg, Un jennie (PRINIVIL,Z 11-09- Oral, ity of ESTRIL) 15:00: 14:41 DAILY, [place] tablet 2.5 00 :42 First dose Med ical mg (after Branch last modificati on) on Sat11/09/20 at 0900, Until Discontinu ed, Routine LORazepam Yes 10mg 10 mg, Univer s (ATIVAN) 11-05 Oral, TID, ity o f tablet 10 02:00: First dose [place] mg 00 (after Medical last Branch modificati on) on Sat11/04/20 at 1999, Until Discontinu ed, Routine LORazepam 2020- No 9mg 9 mg, Univer s (ATIVAN) 11-03 Oral, TID, ity of tablet 9 mg 20:00: 21:06 First dose [place] 00 :09 (after Medical last Branch modificati on) on Sat11/03/20 at 1400, Until Discontinu ed, Routine labetaloL Yes 20mg 20 mg, Univer s (NORMODYNE) 11-02 Slow IV ity o f injection 13:08: Push, [place] 20 mg 42 Q4HPRN, Medical Starting Branch 11/02/20 at 0708, Until Discontinu ed, Routine, SBP>160 and or DBP>100 LORazepam 2020- No 8mg 8 mg, Univer s (ATIVAN) 11-02 Oral, TID, ity of tablet 8 mg 02:00: 17:16 First dose [place] 00 :28 (after Medical last Branch modificati on) on Sat11/01/20 at 1999, Until Discontinu ed, Routine LORazepam 2020- No 7mg 7 mg, Univer s (ATIVAN) 11-01 Oral, TID, ity of tablet 7 mg 02:00: 00:16 First dose [place] 00 :23 (after Medical last Branch modificati on) on Sat10/31/20 at 1999, Until Discontinu ed, Routine Polyethylen 2020- No 17g 17 g, Univ ers e Glycol 10-29 Oral, ity of 3350 19:30: 19:17 ONCE, 1 [place] (MIRALAX) 00 :00 dose, Sat Medic al powder 17 g 10/29/20 at Br anch 1330, Routine LORazepam 2020- No 6mg 6 mg, Univer s (ATIVAN) 10-29 Oral, TID, ity of tablet 6 mg 02:00: 21:38 First dose [place] 00 :43 (after Medical last Branch modificati on) on Sat10/28/20 at 2000, Until Discontinu ed, Routine LORazepam 2020- No 2mg 2 mg, Slow U nivers (ATIVAN) 10-27 IV Push, ity of injection 2 07:45: 06:54 ONCE, 1 [place] mg 00 :00 dose, [facility] 10/27/20 at Branch 0145, Routine LORazepam 2020- No 5mg 5 mg, Univer s (ATIVAN) 10-27 Oral, TID, ity of tablet 5 mg 02:00: 21:25 First dose [place] 00 :10 (after Medical last Branch modificati on) on Sat10/26/20 at 2000, Until Discontinu ed, Routine gadoteridol 2020- No .2mL/kg 9.08 mL Univers (PROHANCE-1 10-26 (0.2 mL/kg i ty of 0 mL) 17:30: 17:08 ?45.4 kg), [place] injection 00 :00 Intravenou Medi srinivasa 9.08 mL s, ONCE, 1 Branch dose, Sat10/26/20 at 1130, Routine iohexol No 80mL 80 mL, Univers (OMNIPAQUE 10-26 Intravenou it y of 350 16:33: 16:33 s, ONCE, 1 [place] BULK-100 00 :00 dose, Sat Medica l mL) 10/26/20 at [place] injection 1045, 80 mL Routine LORazepam 2020- No 5mg 5 mg, Univer s (ATIVAN) 10-26 Oral, QID, ity of tablet 5 mg 02:00: 21:27 First dose [place] 00 :00 on [facility] 10/25/20 at Branch 2000, Until Discontinu ed, Routine diazePAM 2020- No 20mg 20 mg, Univer s (VALIUM) 10-21 Oral, TID, ity of tablet 20 21:15: 00:23 First dose [place] mg 00 :49 on Sat10/21/20 at Branch 1515, Until Discontinu ed, Routine thiamine Yes 100mg 100 mg, Unive rs (VITAMIN 1-15 Oral, ity of B1) tablet 15:00: DAILY, [place] 100 mg 00 First dose Medical on Sat Branch 10/21/20 at 0900, Until Discontinu ed, Routine magnesium No 2g 2 g, IV Univ ers sulfate in 10-21 Piggyback, it y of water 2 14:15: 14:28 ONCE, 1 [place] gram/50 mL 00 :00 dose, Sat Medi srinivasa (4 %) 10/21/20 at [place] infusion 2 0815, g Routine labetaloL No 20mg 20 mg, Unive rs (NORMODYNE) 10-21 Slow IV ity of injection 13:17: 13:09 Push, [place] 20 mg 39 :07 Q4HPRN, Medical Starting Branch Sat10/21/20 at 0717, Until Sat11/02/20 at 0709, Routine, SBP&gt ;160 and or DBP>110 KCL 20 No 40meq 40 mEq, Univer s mEq/15 mL 10-21 Oral, ity of solution 40 13:14: 14:28 ONCE, 1 [place] mEq 00 :00 dose, Sat Medical 10/21/20 at Branch 0715, Routine diazePAM No 15mg 15 mg, Univer s (VALIUM) 10-21 Intravenou ity of injection 02:00: 21:13 s, BID, [place] 15 mg 00 :18 First dose Medical (after Branch last modificati on) on [place] 10/20/20 at 2000, Until Discontinu ed, Routine diazePAM No 15mg 15 mg, Univer s (VALIUM) 10-20 Intravenou ity of injection 21:00: 21:13 s, DAILY [place] 15 mg 00 :18 AT 1500, Medical First dose Branch (after last modificati on) on Sat10/20/20 at 1500, Until Discontinu ed, Routine amLODIPine 2020- No 10mg 10 mg, Univ ers (NORVASC) 10-20 Oral, ity of tablet 10 20:15: 13:46 DAILY, [place] mg 00 :08 First dose Medical on [place] Branch 10/20/20 at 1415, Until Discontinu ed, Routine NaCl 0.9% 2020- No 1000mL at 75 Univ ers (NS) IV 10-20 02-01 mL/hr, IV ity of infusion 12:30: 16:33 Infusion, [place] 1,000 mL 00 :57 CONTINUOUS Medic al , Starting Branch [place] 10/20/20 at 0630, Until 11/07/20 at 1033, Routine NaCl 0.9% 2020- No 1000mL at 125 Uni vers (NS) IV 10-2014 mL/hr, IV ity of infusion 02:30: 12:27 Infusion, [place] 1,000 mL 00 :01 CONTINUOUS Medic al , Starting Branch [facility] 10/19/20 at 2030, Until [place] 10/20/20 at 0627, Routine KCL No 40meq 40 mEq, IV Unive rs (POTASSIUM 10-19 Piggyback, it y of CHLORIDE) 13:04: 14:13 ONCE, 1 [place] 40 mEq in 00 :00 dose, Wed Medic al NaCl 0.9% 10/19/20 at Bran ch (NS) 0715, 250 piggyback mL magnesium 2020- No 2g 2 g, IV Univ ers sulfate in 10-19 Piggyback, it y of water 2 11:30: 10:37 ONCE, 1 [place] gram/50 mL 00 :00 dose, Wed Medi srinivasa (4 %) 10/19/20 at Branch infusion 2 0530, g Routine LORazepam 2020- No 1mg 1 mg, Slow U nivers (ATIVAN) 10-19 IV Push, ity of injection 1 10:30: 09:37 ONCE, 1 [place] mg 00 :00 dose, Wed Medical 10/19/20 at Branch 0430, Routine gadoteridol 2020- No .2mL/kg 9.08 mL Univers (PROHANCE-1 10-18 (0.2 mL/kg i ty of 0 mL) 21:30: 21:05 ?45.4 kg), [place] injection 00 :00 Intravenou Medi srinivasa 9.08 mL s, ONCE, 1 Branch dose, 10/18/20 at 1530, Routine KCL No 40meq 40 mEq, IV Unive rs (POTASSIUM 10-18 Piggyback, it y of CHLORIDE) 18:00: 22:38 ONCE, 1 [place] 40 mEq in 00 :00 dose, Tue Medic al NaCl 0.9% 10/18/20 at Bran ch (NS) 1200, 250 piggyback mL NaCl 0.9% 2020- No 1000mL at 50 Univ ers (NS) IV 10-1814 mL/hr, IV ity of infusion 17:15: 02:23 Infusion, [place] 1,000 mL 00 :42 CONTINUOUS Medic al , Starting Branch [facility] 10/18/20 at 1115, Until Sat10/19/20 at 2023, Routine NaCl 0.9% Yes 10mL 10 mL, Univer s (NS) 12 Slow IV ity of injection 15:58: Push, PRN, [place] 10 mL 41 Starting Medical [facility] 10/18/20 at 0958, Until Discontinu ed, Routine, line maintenanc e lidocaine Yes 5mL 5 mL, Univers 1% (PF) 10-18 Subcutaneo ity of (XYLOCAINE) 15:58: us, PRN, [place] injection 5 41 Starting Medi srinivasa mL [facility] Branch 10/18/20 at 0958, Until Discontinu ed, Routine, Local anesthesia KCL 2020- No 40meq 40 mEq, IV Unive rs (POTASSIUM 10-18 Piggyback, it y of CHLORIDE) 12:35: 14:17 ONCE, 1 [place] 40 mEq in 00 :00 dose, Tue Medic al NaCl 0.9% 10/18/20 at Bran ch (NS) 0645, 250 piggyback mL diazePAM 2020- No 10mg 10 mg, Univer s (VALIUM) 10-18 Intravenou ity of injection 02:00: 20:07 s, BID, [place] 10 mg 00 :20 First dose Medical (after Branch last modificati on) on 10/17/20 at 2000, Until Discontinu ed, Routine immune 2020- No 2g/kg 90 g Univers globulin IV 10-17 (rounded ity of (PRIVIGEN) 18:18: 02:13 from 90.8 [place] 10 % 00 :55 g = 2 g/kg Medical injection ?45.4 kg), Bran ch 90 g Intravenou s, Q24H, 5 doses, First dose on Sat10/17/20 at 1230, Last dose on Sat10/21/20 at 1230, Routine
Indicatio ns: NON-APPROV ED INDICATION - PHARMACY WILL CALL ORDERING PROVIDER<b r>Specific Indication : autoimmune encephalit is
Facu lty Requesting Approval: JOYE DOMÍNGUEZ haloperidol 2020- No 2mg 2 mg, Univ ers lactate 10-17 Intramuscu ity o f (HALDOL) 17:53: 15:57 lar, [place] injection 2 45 :43 Q6HPRN, Medic al mg Starting Branch [facility] 10/17/20 at 1153, Until Sat10/18/20 at 0957, Routine, Psychosis, Sedation iohexol 2020- No 100mL 100 mL, Unive rs (OMNIPAQUE 10-17 Intravenou it y of 350 15:53: 15:53 s, ONCE, 1 [place] BULK-100 00 :00 dose, Mon Medica l mL) 10/17/20 at [place] injection 1000, 100 mL Routine NaCl 0.9% 2020- No 1000mL at 125 Uni vers (NS) IV 10-17 mL/hr, IV ity of infusion 15:45: 17:06 Infusion, [place] 1,000 mL 00 :41 CONTINUOUS Medic al , Starting Branch [facility] 10/17/20 at 0945, Until Sat10/18/20 at 1106, Routine KCL 20 2020- No 20meq 20 mEq, Univer s mEq/15 mL 10-17 Enteral, ity o f solution 20 14:15: 15:09 ONCE, 1 [place] mEq 00 :00 dose, Mon Medical 10/17/20 at Branch 0815, Routine NaCl 0.9% 2020- No 1000mL at 75 Univ ers (NS) IV 10-17 mL/hr, IV ity of infusion 13:30: 15:36 Infusion, [place] 1,000 mL 00 :56 CONTINUOUS Medic al , Starting Branch 10/17/20 at 0730, Until 10/17/20 at 0936, Routine LORazepam No 1mg 1 mg, Slow U nivers (ATIVAN) 10-17 IV Push, ity of injection 1 08:15: 07:13 ONCE, 1 [place] mg 00 :00 dose, [facility] Medical 10/17/20 at Branch 0215, Routine haloperidol No 1mg 1 mg, Slow Univers lactate 10-17 IV Push, ity of (HALDOL) 03:45: 06:27 ONCE, 1 [place] injection 1 00 :00 dose, [place] Med ical mg 10/16/20 at Branch 2145, Routine diazePAM 2020- No 5mg 5 mg, Univers (VALIUM) 10-17 Intravenou ity of injection 5 02:00: 21:56 s, BID, [place] mg 00 :08 First dose Medical (after Branch last modificati on) on 10/16/20 at 2000, Until Discontinu ed, Routine diazePAM No 10mg 10 mg, Univer s (VALIUM) 10-16 Intravenou ity of injection 21:00: 20:07 s, DAILY [place] 10 mg 00 :20 AT 1500, Medical First dose Branch on 10/16/20 at 1500, Until Discontinu ed, Routine thiamine No 250mg IV Univers (VITAMIN 10-16 Piggyback, ity of B1) 250 mg 16:15: 13:43 DAILY, 4 [place] in NaCl 00 :00 doses, Medical 0.9% (NS) First dose Bran ch piggyback (after last reorder) on 10/16/20 at 1015, Last dose on Sat10/19/20 at 0900, 50 mL thiamine No 250mg IV Univers (VITAMIN 10-16 Piggyback, ity of B1) 250 mg 02:00: 04:23 DAILY, 1 [place] in NaCl 00 :00 dose, Medical 0.9% (NS) First dose Bran ch piggyback on 10/15/20 at 2000, 50 mL KCL 2020- No 40meq 40 mEq, IV Unive rs (POTASSIUM 10-16 Piggyback, it y of CHLORIDE) 00:30: 00:16 ONCE, 1 [place] 40 mEq in 00 :00 dose, Sat Medic al NaCl 0.9% 10/15/20 at [facility] h (NS) 1830, 250 piggyback mL lisinopriL 2020- No 40mg 40 mg, Univ ers (PRINIVIL,Z 10-15 Oral, ity of ESTRIL) 15:00: 13:46 DAILY, [place] tablet 40 00 :08 First dose Medi srinivasa mg on Sat Branch 10/15/20 at 0900, Until Discontinu ed, Routine KCL 2020- No 40meq 40 mEq, IV Unive rs (POTASSIUM 10-15 Piggyback, it y of CHLORIDE) 13:45: 14:17 ONCE, 1 [place] 40 mEq in 00 :00 dose, Sat Medic al NaCl 0.9% 10/15/20 at [facility] h (NS) 0745, 250 piggyback mL magnesium 2020- No 4g 4 g, IV Univ ers sulfate in 10-15 Piggyback, it y of water 4 13:45: 14:14 ONCE, 1 [place] gram/50 mL 00 :00 dose, Sat Medi srinivasa (8 %) IV 10/15/20 at Branch Piggyback 4 0745, g Routine KCL 2020- No 40meq 40 mEq, IV Unive rs (POTASSIUM 10-14 Piggyback, it y of CHLORIDE) 23:45: 03:11 ONCE, 1 [place] 40 mEq in 00 :00 dose, Fri Medic al NaCl 0.9% 10/14/20 at [facility] h (NS) 1745, 250 piggyback mL diazePAM 2020- No 5mg 5 mg, Univers (VALIUM) 10-14 Intravenou ity of injection 5 20:00: 14:29 s, TID, [place] mg 00 :10 First dose Medical on Fri Branch 10/14/20 at 1400, Until Discontinu ed, Routine potassium, 2021-0 Yes 1{packe 1 Packet, Univers sodium 1-08 t} Oral, QID, ity of phosphates 14:00: First dose [place] (PHOS-NAK) 00 on Sat Medical [id number] 10/14/20 at [facility] mg packet 1 0800, Packet Until Discontinu ed, Routine KCL 2020- No 40meq 40 mEq, IV Unive rs (POTASSIUM 10-14 Piggyback, it y of CHLORIDE) 12:45: 00:59 Q4H ABX, 3 [place] 40 mEq in 00 :00 doses, Medical NaCl 0.9% First dose Bran ch (NS) (after piggyback last reorder) on Sat10/14/20 at 0700, Last dose on Sat10/14/20 at 1500, 250 mL thiamine 2020- No 500mg IV Univers (VITAMIN 10-14 Piggyback, ity of B1) 500 mg 02:00: 21:02 TID, 6 [place] in NaCl 00 :00 doses, Medical 0.9% (NS) First dose Bran ch piggyback (after last reorder) on Sat10/13/20 at 2000, Last dose on Sat10/15/20 at 1400, 50 mL NaCl 0.9% 2020- No 1000mL at 125 Uni vers (NS) IV 10-14 01-11 mL/hr, IV ity of infusion 01:00: 13:16 Infusion, [place] 1,000 mL 00 :27 CONTINUOUS Medic al , Starting Branch Sat10/13/20 at 1900, Until Sat10/17/20 at 0716, Routine KCL 2020- No 40meq 40 mEq, IV Unive rs (POTASSIUM 10-14 Piggyback, it y of CHLORIDE) 01:00: 12:59 Q4H ABX, 3 [place] 40 mEq in 00 :00 doses, Medical NaCl 0.9% First dose Bran ch (NS) (after piggyback last modificati on) on Sat10/13/20 at 1900, Last dose on Sat10/14/20 at 0300, 250 mL LORazepam Yes 2mg 2 mg, Slow Un jennie (ATIVAN) 1-07 IV Push, ity of injection 2 19:15: PRN - SEE [place] mg 00 INSTRUCT Medical NS, 1 Branch dose, Starting [place] 10/13/20 at 1315, Until Discontinu ed, Routine, Lorazepam Challenge for Catatonia LORazepam No 2mg 2 mg, Slow U nivers (ATIVAN) 10-13 IV Push, ity of injection 2 19:15: 19:12 ONCE, 1 [place] mg 00 :00 dose, [facility] Medical 10/13/20 at Branch 1315, Routine pantoprazol Yes 40mg 40 mg, Univ ers e 10-13 Oral, ity of (PROTONIX) 15:00: DAILY, [place] EC tablet 00 First dose Medi srinivasa 40 mg on [facility] Branch 10/13/20 at 0900, Until Discontinu ed, Routine magnesium 2020- No 4g 4 g, IV Univ ers sulfate in 10-13 Piggyback, it y of water 4 15:00: 13:57 ONCE, 1 [place] gram/50 mL 00 :00 dose, [facility] Medi srinivasa (8 %) IV 10/13/20 at [place] Piggyback 4 0900, g Routine thiamine 2020- No 500mg IV Univers (VITAMIN 10-13 Piggyback, ity of B1) 500 mg 15:00: 21:13 [place]ILY, 1 [place] in NaCl 00 :00 dose, Medical 0.9% (NS) First dose Bran ch piggyback on [place] 10/13/20 at 0900, 50 mL heparin Yes 5000U 5,000 Univers (porcine) 10-13 Units, ity of injection 14:00: [place] 5,000 Units 00 us, Q12H, Med ical First dose Branch on [place] 10/13/20 at 0800, Until Discontinu ed, Routine KCL 2020- No 40meq 40 mEq, IV Unive rs (POTASSIUM 10-13 Piggyback, it y of CHLORIDE) 13:15: 13:57 ONCE, [place] 40 mEq in 00 :00 dose, [facility] Medic al NaCl 0.9% 10/13/20 at [facility] h (NS) 0715, 250 piggyback mL acetaminoph Yes 650mg 650 mg, Un jennie en 10-13 Oral, ity of (TYLENOL) 08:13: Q6HPRN, [place] tablet 650 16 Starting Medic al mg [facility] 10/13/20 Branch at 0213, Until Discontinu ed, Routine, Pain (scale 4-6) docusate Yes 100mg 100 mg, Unive rs (COLACE) 10-13 Oral, ity of capsule 100 08:13: QDAILYPRN, [place] mg 16 Starting Medical [place] 10/13/20 Branch at 0213, Until Discontinu ed, Routine, Constipati on fosphenytoi 2020- No 900mg{p 900 mg PE, Univers n (CEREBYX) 10-13 henytoi IV ity of 900 mg PE 03:15: 03:07 n'equiv Piggyback, [place] in NaCl 00 :00 alent} ONCE, 1 Medical 0.9% (NS) dose, [facility] h piggyback 10/12/20 at 2115, 100 mL diazePAM 2020- No 2mg 2 mg, Slow Un jennie (VALIUM) 10-12 IV Push, ity of injection 2 16:45: 15:34 [place]CE[place] mg 00 :00 dose, [facility] 10/12/20 at Branch 1045, STAT diazePAM 2020- No 2mg 2 mg, Slow Un jennie (VALIUM) 10-12 IV Push, ity of injection 2 10:38: 10:40 [place]CE[place] mg 00 :00 dose, [facility] 10/12/20 at Branch 0445, STAT D5W 0.45% 2020- No 1000mL at 125 Uni vers NaCl 10-1207 mL/hr, ity of (1/2NS) IV 07:30: 23:47 1,000 mL, [place] infusion 00 :30 IV Medical 1,000 mL Infusion, Branch CONTINUOUS , Starting Sat10/12/20 at 0130, Until [place] 10/13/20 at 1747, [place] thiamine 2020- No 100mg 100 mg, Univ ers (VITAMIN 10-12 Intravenou ity of B1) 05:45: 05:06 s, ONCE, 1 [place] injection 00 :00 dose, Tue Medic al 100 mg 10/11/20 at Branch 2345, [place] diazePAM 2020- No 2mg 2 mg, Slow Un jennie (VALIUM) 10-12 01-06 IV Push, ity of injection 2 05:45: 04:59 [place]CE, 1 [place] mg 00 :00 dose, Tue Medical 10/11/20 at Branch 2345, STAT NaCl 0.9% 2020- No 1000mL at 999 Uni vers (NS) bolus 10-12-06 mL/hr, ity of infusion 03:45: 06:10 1,000 mL, Mike as 1,000 mL 00 :00 IV Medical Infusion, Branch ONCE, 1 dose, 10/11/20 at 2145, STAT acetaminoph 2019- No 1{tbl} 1 tablet, Univers en-codeine 6-29 06-29 Oral, ity of (TYLENOL 16:00: 14:55 ONCE, 1 [place] #3) 300-30 00 :00 dose, Mon Medi srinivasa mg tablet 1 04/04/20 at Br anch tablet 1100, WILFREDO acetaminoph Yes [id number] 1{tbl} Take 1 Univers en-codeine 6-29 tablet by ity of (TYLENOL-CO 00:00: mouth [place] DEINE #3) 00 every 4 Medical 300-30 mg (four) Branch tablet hours as needed for Pain (scale 1-3). acetaminoph 2020- No [id number] 1{tbl} Take 1 Univers en-codeine 6-29 02-04 tablet by ity of (TYLENOL-CO 00:00: 00:00 [place] DE[place] #3) 00 :00 every 4 Medical 300-30 mg (four) Branch tablet hours as needed for Pain (scale 1-3). SUMAtriptan 2018- No 6mg 6 mg, Univ ers (IMITREX) 06-08 Subcutaneo ity of injection 6 17:45: 16:53 us, ONCE, [place] mg 00 :00 1 dose, Medical 06/08/19 Branch at 1245, [place] maalox:diph 2019-0 2019- No 15mL 15 mL, Uni vers enhydrAMINE 06-08 Oral, ity of :lidocaine2 16:45: 16:45 ONCE, 1 [place] %viscous 00 :00 dose, Mon Medica l 1:1:1: 06/08/19 at Branch suspension 1145, [place] (COMPOUNDED ) NaCl 0.9% 2019- No 1000mL at 999 Uni vers (NS) bolus 06-08 mL/hr, ity of infusion 15:30: 16:51 1,000 mL, Mike as 1,000 mL 00 :00 IV Medical Infusion, [place] ONCE, 1 dose, 06/08/19 at 1030, [place] fluoxetine 0 Yes Take by Uni vers HCl (PROZAC 9-02 mouth. ity of ORAL) 14:52: [address] alprazolam Yes Take by Uni vers (XANAX 9-02 mouth. ity of ORAL) 14:52: [address] fluoxetine Yes Take by Uni vers HCl (PROZAC 9-02 mouth. ity of ORAL) 14:52: [address] alprazolam Yes Take by Uni vers (XANAX 9-02 mouth. ity of ORAL) 14:52: [address] fluoxetine Yes Take by Uni vers HCl (PROZAC 9-02 mouth. ity of ORAL) 14:52: [address] alprazolam Yes Take by Uni vers (XANAX 9-02 mouth. ity of ORAL) 14:52: [address] fluoxetine Yes Take by Uni vers HCl (PROZAC 9-02 mouth. ity of ORAL) 14:52: [address] alprazolam Yes Take by Uni vers (XANAX 9-02 mouth. ity of ORAL) 14:52: [address] No known No Univers medications ity of [facility] Immunizations Ordered Filled Immunization Date Status Comments Sourc e Immunization Name Name Influenza Virus 2020-05-18 Completed Universit y of Vaccine [place] .5 mL 00:00:00 [facility] IM 6+ MO Branch Influenza Virus 2020-05-18 Completed Universit y of Vaccine Quad .5 mL 00:00:00 [facility] IM 6+ MO [place] Influenza Virus 2020-05-18 Completed Universit y of Vaccine Quad .5 mL 00:00:00 [place] [facility] IM 6+ MO Branch Influenza Virus 2020-05-18 Completed Universit y of Vaccine Quad .5 mL 00:00:00 [place] [facility] IM 6+ MO Branch Influenza Virus 2020-05-18 Completed Universit y of Vaccine Quad .5 mL 00:00:00 [place] [facility] IM 6+ MO Branch Influenza Virus 2020-05-18 Completed Universit y of Vaccine Quad .5 mL 00:00:00 [facility] IM 6+ MO Branch Vital Signs Vital Name Observation Time Observation Value Comments Source Systolic blood 2020-11-10 13:25:00 98 mm[Hg] Univer sity of pressure [facility] Diastolic blood 2020-11-10 13:25:00 60 mm[Hg] Unive rsity of [facility] Heart rate 2020-11-10 13:25:00 81 /min Universi ty of [facility] Body temperature 2020-11-10 13:25:00 36.28 Susan [facility] ersity of [facility] Respiratory rate 2020-11-10 13:25:00 18 /min [facility] Oxygen saturation in 2020-11-10 13:25:00 98 /min University Arterial blood by [facility] Pulse oximetry Branch Body weight 2020-11-07 20:45:00 43.999 kg Universi ty of [facility] BMI 2020-11-07 20:45:00 16.14 kg/m2 Universi ty [facility] Body height 2020-10-17 17:36:00 165.1 cm Universi ty of [facility] Systolic blood 2020-04-04 14:40:00 149 mm[Hg] Univer sity of [facility] Diastolic blood 2020-04-04 14:40:00 85 mm[Hg] Unive rsity of [facility] Heart rate 2020-04-04 14:40:00 88 /min Universi ty of [facility] Body temperature 2020-04-04 14:40:00 36.89 Susan Univ ersity of [facility] Respiratory rate 2020-04-04 14:40:00 18 /min Univ ersity of [facility] Body weight 2020-04-04 14:40:00 68.04 kg Universi ty [facility] Oxygen saturation in 2020-04-04 14:40:00 97 /min [facility] Arterial blood by [facility] Pulse oximetry Branch Systolic blood 2019-06-08 16:00:00 163 mm[Hg] Univer sity of pressure [facility] Diastolic blood 2019-06-08 16:00:00 88 mm[Hg] Unive rsity of pressure [facility] Heart rate 2019-06-08 16:00:00 64 /min [facility] Respiratory rate 2019-06-08 16:00:00 17 /min [facility] Oxygen saturation in 2019-06-08 16:00:00 100 /min [facility] Arterial blood by [facility] Pulse oximetry Branch Body temperature 2019-06-08 14:46:00 36.89 Susan [facility] Body weight 2019-06-08 14:44:00 43.092 kg [facility] Procedures Procedure Date / Time Performing Clinician Source Performed AUTHORIZATION FOR RELEASE OF 2021-03-01 Doctor Unassigned, No University of PHI 05:01:00 Name [facility] AUTHORIZATION FOR RELEASE OF 2021-02-16 Doctor Unassigned, No University of [facility] 05:01:00 [facility] EXTERNAL PROVIDER RECORDS 2020-11-22 Doctor Unassigned, No University of 06:01:00 [facility] COVID-19 (ID NOW RAPID 2020-11-10 Jey [facility]) 00:27:00 [facility] XR KUB 2020-11-09 Jey Mejía [place] o f 23:36:27 [facility] BASIC METABOLIC PANEL (NA, 2020-11-09 Jey Mejía niversity of K, CL, CO2, GLUCOSE, BUN, 10:11:00 [facility] CREATININE, [place]) Branch CBC WITH DIFF 2020-11-09 Jey Mejía o f 10:11:00 [facility] BASIC METABOLIC PANEL (NA, 2020-11-07 Jey Mejía niversity of K, CL, CO2, GLUCOSE, BUN, 10:05:00 [facility] CREATININE, [place]) Branch CBC WITH DIFF 2020-11-07 Jey Mejía o f 10:05:00 [facility] HEPATIC FUNCTION PANEL 2020-11-05 Jey Mejía [facility] rs[facility] of ([id number]) (ALB,T.PRO,BILI 09:59:00 [facility] dical T,BU/BC,ALT,AST,ALK PHOS) Branch BASIC METABOLIC PANEL (NA, 2020-11-05 Jey Mejía niversity of K, CL, CO2, GLUCOSE, BUN, 09:59:00 [facility] CREATININE, [place]) Branch CBC WITH DIFF 2020-11-05 Jey Mejía o f 09:59:00 [facility] CEREBROSPINAL FLUID PROTEIN 2020-10-27 Jey Mejía of 19:49:00 [facility] CEREBROSPINAL FLUID GLUCOSE 2020-10-27 Jey Mejía [place] of 19:49:00 [facility] BODY FLUID DIRECT COUNT 2020-10-27 Jey Mejía ersity of 19:49:00 [facility] CSF/COMPACTOR DRIVER SHUNT CULTURE 2020-10-27 Jey Mejía ity of 19:49:00 [facility] CSF CULTURE 2020-10-27 Jey Mejía o f 19:49:00 [facility] BASIC METABOLIC PANEL (NA, 2020-10-27 Jey Mejía niversity of K, CL, CO2, GLUCOSE, BUN, 11:41:00 [facility] CREATININE, [place]) Branch CBC WITH DIFF 2020-10-27 Jey Mejía o f 11:41:00 [facility] POCT GLUCOSE (AUTOMATED) 2020-10-27 Carlos Terry ity of 01:51:00 [facility] COVID-19 (ID NOW RAPID 2020-10-26 Jey Mejía rsity of TESTING) 18:47:00 [facility] LAB ONLY COVID 2020-10-26 Jey Mejía o f INTERPRETATION 18:47:00 [facility] MR BRAIN W WO CONTRAST 2020-10-26 Jey Mejía rsity of 17:18:00 [facility] CT CHEST PULMONARY ANGIOGRAM 2020-10-26 Jey Mejía of 16:39:40 [facility] XR CHEST 1 VW 2020-10-26 [facility] 13:00:00 [facility] D-DIMER 2020-10-26 Lindsey Urbina, [facility] of 11:04:00 [facility] EXTRA TUBE RED 2020-10-26 Mara [facility] of 11:04:00 [facility] URINALYSIS 2020-10-26 Lindsey Vega [facility] of 08:35:00 [facility] URINE CULTURE 2020-10-26 [facility] of 08:35:00 [facility] BLOOD CULTURE SCREEN 2020-10-26 Lindsey Vega [facility] sity of 08:22:00 [facility] BLOOD CULTURE SCREEN 2020-10-26 Lindsey Vega [facility] sity of 08:11:00 [facility] MAGNESIUM 2020-10-26 [facility] of 08:02:00 [facility] BASIC METABOLIC PANEL (NA, 2020-10-26 [facility] of K, CL, CO2, GLUCOSE, BUN, 08:02:00 [place] [facility] CREATININE, [place]) Branch EXTRA TUBE LAV 2020-10-26 [facility] 08:02:00 [facility] MAGNESIUM 2020-10-25 [facility] of 10:43:00 [facility] BASIC METABOLIC PANEL (NA, 2020-10-25 [facility] of K, CL, CO2, GLUCOSE, BUN, 10:43:00 [place] [facility] CREATININE, CA) Branch CBC WITH DIFF 2020-10-25 [facility] of 10:43:00 [facility] FREE T4 2020-10-24 Jey Mejía o f 19:55:00 [facility] MAGNESIUM 2020-10-24 Lindseygino Urbina [facility] of 09:22:00 [facility] THYROID STIMULATING HORMONE 2020-10-24 [facility] of 09:22:00 [facility] BASIC METABOLIC PANEL (NA, 2020-10-24 [facility] of K, CL, CO2, GLUCOSE, BUN, 09:22:00 [place] [facility] CREATININE, CA) Branch CBC WITH DIFF 2020-10-24 [facility] of 09:22:00 [facility] BASIC METABOLIC PANEL (NA, 2020-10-22 [facility] Baker [facility] K, CL, CO2, GLUCOSE, BUN, 10:35:00 [place] [facility] CREATININE, CA) Branch CBC WITH DIFF 2020-10-22 [facility] o f 10:35:00 [facility] MAGNESIUM 2020-10-21 [facility] of 10:26:00 [facility] BASIC METABOLIC PANEL (NA, 2020-10-21 Sina Baker [facility] K, CL, CO2, GLUCOSE, BUN, 10:26:00 [place] [facility] CREATININE, CA) Branch CBC WITH DIFF 2020-10-21 [facility] o f 10:26:00 [facility] TROPONIN I 2020-10-20 [facility] of 10:38:00 [facility] CBC WITH DIFF 2020-10-20 [facility] of 10:38:00 [facility] PROTHROMBIN TIME / INR 2020-10-20 [facility] ersity of 10:37:00 [facility] ACTIVATED PARTIAL THRMPLAS 2020-10-20 [facility] of [place] 10:37:00 [facility] MAGNESIUM 2020-10-20 [facility] of 09:30:00 [facility] HEPATIC FUNCTION PANEL 2020-10-20 [facility] ersity of ([id number]) (ALB,T.PRO,BILI 09:30:00 [place] [facility] dical T,BU/BC,ALT,AST,ALK PHOS) Branch BASIC METABOLIC PANEL (NA, 2020-10-20 [facility] of K, CL, CO2, GLUCOSE, BUN, 09:30:00 [facility] CREATININE, [place]) Branch XR KUB 2020-10-19 Macario Kirby [place] of 11:25:00 [facility] Branch MAGNESIUM 2020-10-19 [facility] [place] of 09:24:00 [facility] BASIC METABOLIC PANEL (NA, 2020-10-19 Lindsey Vega [facility] of K, CL, CO2, GLUCOSE, BUN, 09:24:00 [facility] CREATININE, CA) Branch BASIC METABOLIC PANEL (NA, 2020-10-19 Jey Mejía niversity of K, CL, CO2, GLUCOSE, BUN, 04:08:00 [facility] CREATININE, [place]) Branch MAGNETIC RESONANCE IMAGING 2020-10-19 Anesthesiology Unive rsity of UNDER ANESTHESIA 03:25:00 [facility] MR BRAIN W WO CONTRAST 2020-10-18 Jey Mejía [facility] of 21:29:00 [facility] MR ABDOMEN W WO CONTRAST 2020-10-18 Jey Mejía Uni versity of MRCP 21:29:00 [facility] ECHO ROUTINE W/DOPPLER COLOR 2020-10-18 Jey Mejía of 17:10:24 [facility] MAGNESIUM 2020-10-18 Macario Kirby [place] of 10:37:00 [facility] BASIC METABOLIC PANEL (NA, 2020-10-18 [facility] K, CL, CO2, GLUCOSE, BUN, 10:37:00 [facility] CREATININE, [place]) Branch CBC WITH DIFF 2020-10-18 Jey Mejía o f 10:37:00 [facility] XR KUB 2020-10-17 Jey Mejía o f 22:52:00 [facility] BLOOD CULTURE SCREEN 2020-10-17 Jey Mejía ity of 21:53:00 [facility] MISCELLANEOUS SEND OUT TEST 2020-10-17 Macario Kirby of 19:57:00 [facility] URINALYSIS 2020-10-17 Jey Mejía o f 19:40:00 [facility] URINE CULTURE 2020-10-17 Jey Mejía o f 19:40:00 [facility] NEUTROPHIL CYTOPLASMIC AB, 2020-10-17 Jey Mejía niversity of IGG 19:36:00 [facility] LACTIC ACID WHOLE BLOOD 2020-10-17 Jey Mejía ersity of 19:33:00 [facility] CANCER ANTIGEN-GI (CA 19-9) 2020-10-17 Jey Mejía of 19:21:00 [facility] BLOOD CULTURE SCREEN 2020-10-17 Jey Mejía [facility] it of 19:21:00 [facility] CARCINOEMBRYONIC ANTIGEN 2020-10-17 Jey Mejía [facility] versity of 19:21:00 [facility] BASIC METABOLIC PANEL (NA, 2020-10-17 Jey Mejía U niversity of K, CL, CO2, GLUCOSE, BUN, 19:21:00 [facility] CREATININE, CA) Branch CA-125 2020-10-17 Jey Mejía o f 19:21:00 [facility] CT ABDOMEN PELVIS W CONTRAST 2020-10-17 Maxx Kirby [place] of 15:59:15 [facility] CT THORAX W CONTRAST 2020-10-[address] [facility] sity of 15:59:15 [facility] MAGNESIUM 2020-10-17 Macario Kirby [place] of 11:12:00 [facility] C-REACTIVE PROTEIN 2020-10-17 Jey Mejía [facility] y of 11:12:00 [facility] BASIC METABOLIC PANEL (NA, 2020-10-17 Macario Kirby [place] of K, CL, CO2, GLUCOSE, BUN, 11:12:00 [facility] CREATININE, [place]) Branch SEDIMENTATION RATE 2020-10-17 Jey Mejía [facility] y of 11:12:00 [facility] CBC WITH DIFF 2020-10-17 Macario Kirby of 11:12:00 [facility] MAGNESIUM 2020-10-17 Lindsey Urbina [facility] of 10:07:00 [facility] CBC WITH DIFF 2020-10-17 Lindsey [facility] of 10:07:00 [facility] MISCELLANEOUS SEND OUT TEST 2020-10-17 [facility] of 10:07:00 [facility] CEREBROSPINAL FLUID PROTEIN 2020-10-17 César Urbina [facility] of 07:57:00 [facility] CEREBROSPINAL FLUID GLUCOSE 2020-10-17 [facility] of 07:57:00 [facility] BODY FLUID DIRECT COUNT 2020-10-17 Macario Kirby Uni versity of 07:57:00 [facility] CSF/COMPACTOR DRIVER SHUNT CULTURE 2020-10-17 [facility] of 07:57:00 [facility] FUNGUS (ROUTINE) CULTURE 2020-10-17 Macario Kirby Un iversity of 07:57:00 [facility] MISCELLANEOUS SEND OUT TEST 2020-10-17 [facility] Jey [place] of 07:57:00 Stanton [facility] CSF CULTURE 2020-10-17 Lindsey Vega [facility] of 07:57:00 [facility] MISCELLANEOUS SEND OUT TEST 2020-10-17 César Urbina [facility] of 07:56:00 [facility] T-OHIMBB-L-ASPARTATE 2020-10-17 [facility] sity of RECEPTOR AB, CSF 07:56:00 [facility] ELECTROENCEPHALOGRAM 2020-10-17 Joey Domínguez [place] of 00:00:00 [facility] MR BRAIN WO CONTRAST 2020-10-16 Carlos Terry [place] of 21:37:16 [facility] CORTISOL AM 2020-10-16 Iveth Correia [place] of 11:01:00 [facility] BASIC METABOLIC PANEL (NA, 2020-10-16 Muranova Diana U niversity of K, CL, CO2, GLUCOSE, BUN, 11:01:00 [facility] CREATININE, [place]) Branch POTASSIUM, URINE RANDOM 2020-10-16 [facility] Univ ersity of 06:25:00 [place] [facility] SODIUM, URINE RANDOM 2020-10-16 Muranova, Diana Univers ity of 06:25:00 [place] [facility] MAGNESIUM, URINE RANDOM 2020-10-16 Muranova, [facility] ersity of 06:25:00 [place] [facility] CALCIUM, URINE RANDOM 2020-10-16 [facility], [facility] Univer sity of 06:25:00 [facility] Branch GLUCOSE, URINE RANDOM 2020-10-16 [facility] of 06:25:00 [facility] Branch OSMOLALITY URINE 2020-10-15 [facility], [facility] of 22:40:00 [place] [facility] CREATININE, URINE RANDOM 2020-10-15 [facility], [facility] versity of 22:40:00 [facility] Branch SODIUM, URINE RANDOM 2020-10-15 [facility] of 22:40:00 [place] [facility] CALCIUM, URINE RANDOM 2020-10-15 [place], [facility] sity of 22:40:00 [place] [facility] MAGNESIUM 2020-10-15 [facility] o f 21:50:00 [facility] BASIC METABOLIC PANEL (NA, 2020-10-15 [facility], [facility] U niversity of K, CL, CO2, GLUCOSE, BUN, 21:50:00 [place] [facility] CREATININE, [place]) Branch PHOSPHORUS 2020-10-15 [facility] o f 11:34:00 [place] [facility] MAGNESIUM 2020-10-15 [facility] o f 11:34:00 [facility] Branch BASIC METABOLIC PANEL (NA, 2020-10-15 [facility], Diana U niversity of K, CL, CO2, GLUCOSE, BUN, 11:34:00 [place] [facility] CREATININE, CA) Branch CBC WITHOUT DIFF 2020-10-15 [facility] of 11:34:00 [facility] Branch XR KUB 2020-10-14 [facility] o f 23:45:10 [facility] XR CHEST 1 VW 2020-10-14 [facility] o f 21:24:07 [facility] BASIC METABOLIC PANEL (NA, 2020-10-14 [facility] niversity of K, CL, CO2, GLUCOSE, BUN, 20:54:00 [place] [facility] CREATININE, [place]) Branch HB ECG ROUTINE & RHYTHM 2020-10-14 [facility] ersity of STRIP 16:54:32 [facility] PHOSPHORUS 2020-10-14 [facility] o f 10:58:00 [facility] MAGNESIUM 2020-10-14 [facility] o f 10:58:00 [facility] BASIC METABOLIC PANEL (NA, 2020-10-[address] [facility] niversity of K, CL, CO2, GLUCOSE, BUN, 10:58:00 [place] [facility] CREATININE, [place]) Branch CBC WITHOUT DIFF 2020-10-14 [facility] of 10:58:00 [facility] CREATINE KINASE 2020-10-13 [facility] o f 22:41:00 [facility] AMMONIA, PLASMA 2020-10-13 [facility] o f 22:41:00 [facility] BASIC METABOLIC PANEL (NA, 2020-10-[address] [facility] niversity of K, CL, CO2, GLUCOSE, BUN, 22:41:00 [place] [facility] CREATININE, [place]) Branch VITAMIN B1, PLASMA 2020-10-13 [facility] of 11:04:00 [facility] PHOSPHORUS 2020-10-13 Jojo Mid [facility] of 11:04:00 [facility] CREATINE KINASE 2020-10-13 Jojo [facility] of 11:04:00 [facility] MAGNESIUM 2020-10-13 Jojo [facility] of 11:04:00 [facility] OSMOLALITY, SERUM OR PLASMA 2020-10-13 Iveth Correia [facility] versity of 11:04:00 [facility] VITAMIN B12, LEVEL 2020-10-13 Jojo [facility] of 11:04:00 [facility] RHEUMATOID FACTOR 2020-10-13 Aravind Lockwood [facility] of 11:04:00 Stanton [facility] TROPONIN I 2020-10-13 Jojo [facility] of 11:04:00 [facility] FREE T4 2020-10-13 Masood [facility] of 11:04:00 [facility] THYROID STIMULATING HORMONE 2020-10-13 Gustavo Uribe ersity of 11:04:00 [facility] HEPATIC FUNCTION PANEL 2020-10-13 Masood [facility] of ([id number]) (ALB,T.PRO,BILI 11:04:00 [facility] dical T,BU/BC,ALT,AST,ALK PHOS) Branch BASIC METABOLIC PANEL (NA, 2020-10-13 Gustavo Uribe rsity of K, CL, CO2, GLUCOSE, BUN, 11:04:00 [facility] CREATININE, [place]) Branch PHENYTOIN FREE 2020-10-13 [facility] 11:04:00 [facility] SERUM DRUG (IMMUNOASSAY) - 2020-10-13 Gustavo Uribe rsity of COMPREHENSIVE DRUG SCREEN 11:04:00 [facility] CBC WITH DIFF 2020-10-13 [facility] 11:04:00 [facility] PROTHROMBIN TIME / INR 2020-10-13 Gustavo Uribeit y of 11:04:00 [facility] ANTI-NUCLEAR ANTIBODY SCREEN 2020-10-13 Aravind Lockwood Jey [facility] of 11:04:00 [facility] HEPATITIS B VIRUS (HBV) BY 2020-10-13 Gustavo Uribe rsity of QUANTITATIVE NAAT 11:04:00 [facility] FREE T3 2020-10-13 Masood [facility] of 11:04:00 [facility] HIV 1/2 AG-AB WITH REFLEX 2020-10-13 Gustavo Uribe sity of 11:04:00 [facility] GALV ONLY - SYPHILIS IGG/IGM 2020-10-13 Gustavo Uribe versity of 11:04:00 [facility] ANTI-NUCLEAR 2020-10-13 Aravind Lockwood [facility] o f ANTIBODY-PATHOLOGIST 11:04:00 [facility] al INTERPRETATION Branch HEPATITIS C VIRUS (HCV) BY 2020-10-13 Gustavo Uribe rsity of QUANTITATIVE NAAT 11:03:00 [facility] CT HEAD WO CONTRAST 2020-10-13 Gustavo Uribe o f 09:58:38 [facility] XR CHEST 2 VW 2020-10-13 Gustavo Uribe [place] of 09:42:38 [facility] HB ECG ROUTINE & RHYTHM 2020-10-13 [facility] of STRIP 08:30:00 [facility] ELECTROENCEPHALOGRAM 2020-10-13 [facility] of 00:00:00 [facility] POCT GLUCOSE (AUTOMATED) 2020-10-12 Singer [facility] ity of 13:36:00 [facility] POCT GLUCOSE (AUTOMATED) 2020-10-12 Singer [facility] ity of 06:16:00 [facility] COVID-19 (ID NOW RAPID 2020-10-12 Jhonatan Lombardo [facility] y of TESTING) 04:57:00 [facility] LAB ONLY COVID 2020-10-12 [facility] of INTERPRETATION 04:57:00 [facility] CT HEAD WO CONTRAST 2020-10-12 [facility] o f 04:12:18 [facility] COMP. METABOLIC PANEL 2020-10-12 Allen, [facility] of ([id number]) 01:49:00 [facility] URINALYSIS 2020-10-12 [facility] 01:21[facility]00 [facility] ADC / LCC - DRUG SCREEN 2020-10-12 Singer [facility] of TRIAGE 01:21:00 [facility] AMMONIA, PLASMA 2020-10-12 Allen, [facility] of 00:19:00 [facility] SALICYLATE 2020-10-12 Allen, [facility] of 00:11:00 [facility] ETHANOL 2020-10-12 [facility] of 00:11:00 [facility] NOTICE OF PRIVACY PRACTICES 2020-10-11 Doctor Unassigned, N o [place] of 23:19:20 Name [facility] CONSENT/REFUSAL FOR 2020-10-11 Doctor Unassigned, No Univer sity of DIAGNOSIS AND TREATMENT 23:18:24 Name [facility] EXTERNAL PROVIDER RECORDS 2020-10-11 Doctor Unassigned, No University of 06:01:00 Name [facility] AGREEMENTS AUTHORIZATIONS 2020-10-11 Doctor Unassigned, No University of AND IRREVOCABLE ASSIGNMENTS 06:01:00 Name Addie gallardo [facility] (FORM 2001) Branch HOSPITAL ADMISSION 2020-10-11 Doctor Unassigned, No Univers ity of 06:01:00 Name [facility] CONSENT/REFUSAL FOR 2020-04-04 Doctor Unassigned, No Univer sity of DIAGNOSIS AND TREATMENT 14:30:46 Name [facility] URINALYSIS 2019-06-08 Chiqui Rosen [facility] 15:56:00 [facility] LIPASE 2019-06-08 Chiqui Rosen [facility] 15:40:00 [facility] HEPATIC FUNCTION PANEL 2019-06-08 Chiqui Roesn Univer sity of ([id number]) (ALB,T.PRO,BILI 15:40:00 [facility] T,BU/BC,ALT,AST,ALK PHOS) Branch BASIC METABOLIC PANEL (NA, 2019-06-08 Chiqui Rosen Un iversity of K, CL, CO2, GLUCOSE, BUN, 15:40:00 [facility] [place]) Branch CBC WITH DIFFERENTIAL 2019-06-08 Chiqui Rosen Univers ity of 15:40:00 [facility] NOTICE OF PRIVACY PRACTICES 2019-06-08 Doctor Unasslizy, N o [facility] 14:37:20 Name [facility] CONSENT/REFUSAL FOR 2019-06-08 Doctor Unassigned, No Univer sity of DIAGNOSIS AND TREATMENT 14:37:05 Name [facility] Encounters Start End Encounter Admission Attending Care Care Encounter Source Date/Time Date/Time Type Type Clinicians Facility Department ID 2021-03-01 2021-03-01 Orders Doctor EDELMIRA Garcia.2.840.114 [id number] Univers 00:00:00 00:00:00 Only UnassignedTRAMAINE 350.1.13.10 ity of [facility] 4.2.7.2.686 Mike as [id number] [address] 2021-02-16 2021-02-16 Orders Doctor EDELMIRA Garcia.2.840.114 [id number] Univers 00:00:00 00:00:00 Only UnassignedTRAMAINE 350.1.13.10 ity of [facility] 4.2.7.2.686 Mike as [id number] [address] 2020-11-22 2020-11-22 Orders Doctor EDELMIRA Ellis2.840.114 [id number] Univers 00:00:00 00:00:00 Only Unassigned, TRAMAINE 350.1.13.10 ity of [facility] 4.2.7.2.686 Mike as [id number] [facility] 009 Branch 2020-11-22 2020-11-22 Orders Doctor EDELMIRA 1.2.840.114 [id number] 00:00:00 00:00:00 Only Unassigned, TRAMAINE 350.1.13.10 [facility] 4.2.7.2.686 [id number] 2020-11-11 2020-11-11 Transition Les Espinoza 1.2.840.114 [id number] Univers 00:00:00 00:00:00 of Care [place] 350.1.13.10 i ty [place] [id number] [facility] 403 Branch 2020-11-11 2020-11-11 Transition Les Espinoza 1.2.840.114 [id number] 00:00:00 00:00:00 of Care [place] 350.1.13.10 [place] 4.2.7.2.686 [id number] 2020-10-11 2020-11-10 [facility] James Allen 1.2.840.1 [id number] Univers 17:18:00 13:18:00 Encounter Jhonatan Lombardo 350.1.13.10 ity [facility] 4.2.7.2.686 [place] Jhonatan Lombardo [phone] [address] 2020-10-11 2020-10-11 Emergency X [facility] ERT [id number] [facility] 17:18:00 17:18:00 [facility] 2020-06-16 2020-06-22 Inpatient [facility] 064 [id number] [address] [place] 00:00:00 00:00:[address] 2020-04-04 2020-04-04 [facility] 1.2.840.114 [id number] Univers 09:38:30 10:05:00 Chiqui Monterroso 350.1.13.10 ity of [place] 4.2.7.2.686 [facility] [id number] [address] 2020-04-04 2020-04-04 Emergency X [facility] ERT [id number] Univers 09:31:00 09:31:00 ity of [facility] 2020-04-04 2020-04-04 Orders Doctor HICKEY 1.2.840.114 [id number] Univers 00:00:00 00:00:00 Only Unassigned, TRAMAINE 350.1.13.10 ity of [facility] 4.2.7.2.686 Mike as [id number] [address] 2019-12-25 2019-12-25 Nurse Rosaura Dunlap 1.2.840.114 [id number] Univers 00:00:00 00:00:00 Triage TRAMAINE 350.1.13.10 it y of HOSPITAL 4.2.7.2.686 Mike as [id number] [address] 2019-06-08 2019-06-08 Emergency [facility] 1.2.840.114 [id number] Univers 09:51:07 12:07:00 Chiqui Monterroso 350.1.13.10 ity of [place] 4.2.7.2.686 [facility] [id number] [address] 2019-06-08 2019-06-08 Emergency X [facility] ERT [id number] Univers 09:51:07 12:07:00 CHIQUI ity of [facility] 2019-06-08 2019-06-08 Orders Doctor HICKEY 1.2.840.114 [id number] Univers 00:00:00 00:00:00 Only Unassigned, TRAMAINE 350.1.13.10 ity of [facility] 4.2.7.2.686 Mike as [phone] [address] Results Test Description Test Time Test Comments Results Result Comments Source COVID-19 (ID NOW RAPID TESTING) 2020-11-10 00:57:00 Test Item Value Reference Range 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 Comme nts SARS-CoV-2 Rapid ID NOW (test code Not Detected Not Detected = 55016-3) TANESHA (test code = TANESHA) ID NOW COVID-19 Assay is an isothermal nucleic acid amplification test intended for the qualitative detection of nucleic acid from SARS-CoV-2 viral RNA in nasopharyngeal (INSPECTOR PURCHASED PARTS) specimens. It is used under Emergency Use Authorization (EUA) by FDA. The limit of detection (LOD) of the assay is 125 Genome Equivalents/mL. A positive result is indicative of the presence of SARS-CoV-2 RNA. ?Clinical correlation with patient history and other diagnostic information is necessary to determine patient infection status. A negative (Not Detected) result does not preclude SARS-CoV-2 infection. In patients with clinical symptoms and other tests that are consistent with SARS-CoV-2 infection, negative results should be treated as presumptive negative and a new specimen should be tested with alternative PCR molecular test. Invalid: Please collect a new specimen for repeat patient testing if clinically indicated. Lab 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 (test code = Normal 30236-3) [facility] METABOLIC PANEL (NA, K, CL, CO2, GLUCOSE, BUN, CREATININE, CA)2020-11-09 11:06:00 Test Item Value Reference Range 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 Comments NA (test code = 134 mmol/L 135-145 L 8718767629) K (test code = 4.2 mmol/L 3.5-5 9802644439) CL (test code = 99 mmol/L 98-108 5913150958) CO2 TOTAL (test code = 30 mmol/L 23-31 1332961778) AGAP (test code = 2-16 8426384263) BUN (test code = 11 mg/dL 7-23 9341131159) GLUCOSE (test code = 95 mg/dL 70-110 6268785718) CREATININE (test code = 0.53 mg/dL 0.5-1.04 9257819595) CALCIUM (test code = 9.6 mg/dL 8.6-10.6 6718606831) eGFR Calculation mL/min/1.73m2 (Non-) (test code = 6757159657) eGFR Calculation mL/min/1.73m2 () (test code = 1565282129) TANESHA (test code = TANESHA) Association of Glomerular Filtration Rate (GFR) and Staging of Kidney Disease* + --+ --+ ------+| GFR (mL/min/1.73 m2) ?| With Kidney Damage ?| ?Without Kidney Damage+ --------+ --------+ +| ?>90 ?| ?Stage one ?| ? Normal ?+ ---+ ---+ -------+| ?60-89 ?| ?Stage two ?| ? Decreased GFR ? + --+ --+ ------+| ?30-59 ?| ?Stage three ?| ? Stage three ? + --+ --+ ------+| ?15-29 ?| ?Stage four ? | ? Stage four ?+ ---+ ---+ -------+| ?<15 (or dialysis) ? ?| ?Stage five ? | ? Stage five ?+ ---+ ---+ -------+ *Each stage assumes the associated GFR level has been in effect for at least three months. ?Stages 1 to 5, with or without kidney disease, indicate chronic kidney disease. Notes: Determination of stages one and two (with eGFR >59mL/min/1.73 m2) requires estimation of kidney damage for at least three months as defined by structural or functional abnormalities of the kidney, manifested by either:Pathological abnormalities or Markers of kidney damage (including abnormalities in the composition of the blood or urine or abnormalities in imaging tests). Lab 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 Abnormal (test code = 66978-7) [facility] WITH [id number] 10:25:00 Test Item Value Reference Range 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 Comments WBC (test code = See_Comment L [Automated 3290-2) message] The sy stem which generated this result transmitted reference range : 4.30 - 11.10 10*3/?L. The reference range was not used to interpret this result as normal/abnormal . RBC (test code = See_Comment L [Automated 469-8) message] The sy stem which generated this result transmitted reference range : 3.93 - 5.25 10*6/?L. The reference range was not used to interpret this result as normal/abnormal . HGB (test code = 10.8 g/dL 11.6-15 L 718-7) HCT (test code = 29.9 % 35.7-45.2 L 4544-3) MCV (test code = 100.0 fL 80.6-95.5 H 787-2) MCH (test code = 36.1 pg 25.9-32.8 H 785-6) MCHC (test code = 36.1 g/dL 31.6-35.1 H 786-4) RDW-SD (test code = 51.8 fL 39-49.9 H 37581-4) RDW-CV (test code = 14.9 % 12-15.5 788-0) PLT (test code = See_Comment [Automated 777-3) message] The sy stem which generated this result transmitted reference range : 166 - 358 10*3/ ?L. The reference r irvin was not used to interpret this result as normal/abnormal . MPV (test code = 11.3 fL 9.5-12.9 15834-6) NRBC/100 WBC (test See_Comment [Automat ed code = 7301924001) message] The system which generated this result transmitted reference range : 0.0 - 10.0 /100 WBCs. The refer ence range was not u sed to interpret th is result as normal/abnormal . NRBC x10^3 (test code <0.01 See_Comment [Auto mated = 4056154956) message] The s ystem which generated this result transmitted reference range : 10*3/?L. The reference range was not used to interpret this result as normal/abnormal . GRAN MAT (NEUT) % 55.7 % (test code = 770-8) IMM GRAN % (test code 0.20 % = 4487383197) LYMPH % (test code = 28.3 % 736-9) MONO % (test code = 12.6 % 5905-5) EOS % (test code = 2.0 % 713-8) BASO % (test code = 1.2 % 706-2) GRAN MAT x10^3(ANC) 2.26 10*3/uL 1.88-7.09 (test code = 1833970187) IMM GRAN x10^3 (test <0.03 0-0.06 code = 5816802850) LYMPH x10^3 (test code 1.15 10*3/uL 1.32-3.29 L = 731-0) MONO x10^3 (test code 0.51 10*3/uL 0.33-0.92 = 742-7) EOS x10^3 (test code = 0.08 10*3/uL 0.03-0.39 711-2) BASO x10^3 (test code 0.05 10*3/uL 0.01-0.07 = 704-7) Lab 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 Abnormal (test code = 74111-7) [facility] WITH [id number] 10:47:00 Test Item Value Reference Range 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 Comments WBC (test code = See_Comment L [Automated 6690-2) message] The sy stem which generated this result transmitted reference range : 4.30 - 11.10 10*3/?L. The reference range was not used to interpret this result as normal/abnormal . RBC (test code = See_Comment L [Automated 789-8) message] The sy stem which generated this result transmitted reference range : 3.93 - 5.25 10*6/?L. The reference range was not used to interpret this result as normal/abnormal . HGB (test code = 9.7 g/dL 11.6-15 L 718-7) HCT (test code = 27.9 % 35.7-45.2 L 4544-3) MCV (test code = 98.2 fL 80.6-95.5 H 787-2) MCH (test code = 34.2 pg 25.9-32.8 H 785-6) MCHC (test code = 34.8 g/dL 31.6-35.1 786-4) RDW-SD (test code = 51.7 fL 39-49.9 H 57736-4) RDW-CV (test code = 14.7 % 12-15.5 788-0) PLT (test code = See_Comment [Automated 777-3) message] The sy stem which generated this result transmitted reference range : 166 - 358 10*3/ ?L. The reference r irvin was not used to interpret this result as normal/abnormal . MPV (test code = 11.0 fL 9.5-12.9 29112-2) NRBC/100 WBC (test See_Comment [Automat ed code = 6824790413) message] The system which generated this result transmitted reference range : 0.0 - 10.0 /100 WBCs. The refer ence range was not u sed to interpret th is result as normal/abnormal . NRBC x10^3 (test code <0.01 See_Comment [Auto mated = 9640498361) message] The s ystem which generated this result transmitted reference range : 10*3/?L. The reference range was not used to interpret this result as normal/abnormal . GRAN MAT (NEUT) % 53.7 % (test code = 770-8) IMM GRAN % (test code 0.50 % = 8611091462) LYMPH % (test code = 28.8 % 736-9) MONO % (test code = 12.9 % 5905-5) EOS % (test code = 3.0 % 713-8) BASO % (test code = 1.1 % 706-2) GRAN MAT x10^3(ANC) 1.95 10*3/uL 1.88-7.09 (test code = 0128329116) IMM GRAN x10^3 (test <0.03 0-0.06 code = 9619647195) LYMPH x10^3 (test code 1.05 10*3/uL 1.32-3.29 L = 731-0) MONO x10^3 (test code 0.47 10*3/uL 0.33-0.92 = 742-7) EOS x10^3 (test code = 0.11 10*3/uL 0.03-0.39 711-2) BASO x10^3 (test code 0.04 10*3/uL 0.01-0.07 = 704-7) Lab 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 Abnormal (test code = 25058-2) [facility] METABOLIC PANEL (NA, K, CL, CO2, GLUCOSE, BUN, CREATININE, CA)2020-11-07 10:42:00 Test Item Value Reference Range 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 Comments NA (test code = 134 mmol/L 135-145 L 6299651640) K (test code = 4.0 mmol/L 3.5-5 7046237368) CL (test code = 99 mmol/L 98-108 7283732810) CO2 TOTAL (test code = 27 mmol/L 23-31 5387334076) AGAP (test code = 2-16 1328864008) BUN (test code = 11 mg/dL 7-23 4291085874) GLUCOSE (test code = 92 mg/dL 70-110 9070702846) CREATININE (test code = 0.49 mg/dL 0.5-1.04 L 9156009322) CALCIUM (test code = 9.2 mg/dL 8.6-10.6 3656885044) eGFR Calculation mL/min/1.73m2 (Non-) (test code = 6845078412) eGFR Calculation mL/min/1.73m2 () (test code = 9669297324) TANESHA (test code = TANESHA) Association of Glomerular Filtration Rate (GFR) and Staging of Kidney Disease* + --+ --+ ------+| GFR (mL/min/1.73 m2) ?| With Kidney Damage ?| ?Without Kidney Damage+ --------+ --------+ +| ?>90 ?| ?Stage one ?| ? Normal ?+ ---+ ---+ -------+| ?60-89 ?| ?Stage two ?| ? Decreased GFR ? + --+ --+ ------+| ?30-59 ?| ?Stage three ?| ? Stage three ? + --+ --+ ------+| ?15-29 ?| ?Stage four ? | ? Stage four ?+ ---+ ---+ -------+| ?<15 (or dialysis) ? ?| ?Stage five ? | ? Stage five ?+ ---+ ---+ -------+ *Each stage assumes the associated GFR level has been in effect for at least three months. ?Stages 1 to 5, with or without kidney disease, indicate chronic kidney disease. Notes: Determination of stages one and two (with eGFR >59mL/min/1.73 m2) requires estimation of kidney damage for at least three months as defined by structural or functional abnormalities of the kidney, manifested by either:Pathological abnormalities or Markers of kidney damage (including abnormalities in the composition of the blood or urine or abnormalities in imaging tests). Lab 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 Abnormal (test code = 94211-5) [facility] WITH [id number] 11:10:00 Test Item Value Reference Range 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 Comments WBC (test code = See_Comment L [Automated 6690-2) message] The sy stem which generated this result transmitted reference range : 4.30 - 11.10 10*3/?L. The reference range was not used to interpret this result as normal/abnormal . RBC (test code = See_Comment L [Automated 789-8) message] The sy stem which generated this result transmitted reference range : 3.93 - 5.25 10*6/?L. The reference range was not used to interpret this result as normal/abnormal . HGB (test code = 9.5 g/dL 11.6-15 L 718-7) HCT (test code = 26.3 % 35.7-45.2 L 4544-3) MCV (test code = 98.5 fL 80.6-95.5 H 787-2) MCH (test code = 35.6 pg 25.9-32.8 H 785-6) MCHC (test code = 36.1 g/dL 31.6-35.1 H 786-4) RDW-SD (test code = 51.6 fL 39-49.9 H 20431-3) RDW-CV (test code = 15.0 % 12-15.5 788-0) PLT (test code = See_Comment [Automated 777-3) message] The sy stem which generated this result transmitted reference range : 166 - 358 10*3/ ?L. The reference r irvin was not used to interpret this result as normal/abnormal . MPV (test code = 11.4 fL 9.5-12.9 05969-4) NRBC/100 WBC (test See_Comment [Automat ed code = 0106380821) message] The system which generated this result transmitted reference range : 0.0 - 10.0 /100 WBCs. The refer ence range was not u sed to interpret th is result as normal/abnormal . NRBC x10^3 (test code <0.01 See_Comment [Auto mated = 2988758180) message] The s ystem which generated this result transmitted reference range : 10*3/?L. The reference range was not used to interpret this result as normal/abnormal . GRAN MAT (NEUT) % 55.9 % (test code = 770-8) IMM GRAN % (test code 0.60 % = 7482565189) LYMPH % (test code = 28.7 % 736-9) MONO % (test code = 12.4 % 5905-5) EOS % (test code = 1.5 % 713-8) BASO % (test code = 0.9 % 706-2) GRAN MAT x10^3(ANC) 1.89 10*3/uL 1.88-7.09 (test code = 3176174106) IMM GRAN x10^3 (test <0.03 0-0.06 code = 9510044814) LYMPH x10^3 (test code 0.97 10*3/uL 1.32-3.29 L = 731-0) MONO x10^3 (test code 0.42 10*3/uL 0.33-0.92 = 742-7) EOS x10^3 (test code = 0.05 10*3/uL 0.03-0.39 711-2) BASO x10^3 (test code 0.03 10*3/uL 0.01-0.07 = 704-7) TOXIC CHANGES (test Present A code = 803-7) Lab 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 Abnormal (test code = 50302-1) [facility] METABOLIC PANEL (NA, K, CL, CO2, GLUCOSE, BUN, CREATININE, CA)2020-11-05 10:35:00 Test Item Value Reference Range 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 Comments NA (test code = 133 mmol/L 135-145 L 4927725352) K (test code = 4.5 mmol/L 3.5-5 Slight 1778306840) hemolysis CL (test code = 99 mmol/L 98-108 4755526338) CO2 TOTAL (test code 29 mmol/L 23-31 = 2072404568) AGAP (test code = 2-16 7372722549) BUN (test code = 11 mg/dL 7-23 Slight 7298770857) hemolysis GLUCOSE (test code = 83 mg/dL 70-110 9127787824) CREATININE (test code 0.44 mg/dL 0.5-1.04 L = 1032217925) CALCIUM (test code = 9.0 mg/dL 8.6-10.6 1353856011) eGFR Calculation mL/min/1.73m2 (Non-) (test code = 1410234744) eGFR Calculation mL/min/1.73m2 () (test code = 4450943049) TANESHA (test code = TANESHA) Association of Glomerular Filtration Rate (GFR) and Staging of Kidney Disease* + -----+ --------+ +| GFR (mL/min/1.73 m2) ?| With Kidney Damage ?| ?Without Kidney Damage+ +------- +---- --+| ?>90 ?| ?Stage one ?| ? Normal ?+ ------+ ---------+--------- +| ?60-89 ?| ?Stage two ?| ? Decreased GFR ? + -----+ --------+ +| ?30-59 ?| ?Stage three ?| ? Stage three ? + -----+ --------+ +| ?15-29 ?| ?Stage four ? | ? Stage four ?+ ------+ ---------+--------- +| ?<15 (or dialysis) ? ?| ?Stage five ? | ? Stage five ?+ ------+ ---------+--------- + *Each stage assumes the associated GFR level has been in effect for at least three months. ?Stages 1 to 5, with or without kidney disease, indicate chronic kidney disease. Notes: Determination of stages one and two (with eGFR >59mL/min/1.73 m2) requires estimation of kidney damage for at least three months as defined by structural or functional abnormalities of the kidney, manifested by either:Pathological abnormalities or Markers of kidney damage (including abnormalities in the composition of the blood or urine or abnormalities in imaging tests). Lab 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 Abnormal (test code = 81832-2) [facility] (ALB,T.PRO,BILI T,BU/BC,ALT,AST,ALK PHOS)2020-11-05 10:35:00 Test Item Value Reference Range 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 Comments TOTAL BILI (test code = 2982324196) 0.6 mg/dL 0.1-1.1 BILI UNCON (test code = 4095676861) 0.2 mg/dL 0.1-1.1 BILI CONJ (test code = 0461341174) 0.0 mg/dL 0-0.3 T PROTEIN (test code = 5052285890) 7.3 g/dL 6.3-8.2 ALBUMIN (test code = 2528067418) 3.5 g/dL 3.5-5 ALK PHOS (test code = 4822461194) 94 U/L 34-122 ALTv (test code = 1742-6) 25 U/L 5-35 AST(SGOT) (test code = 3921155680) 48 U/L 13-40 H Lab 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 (test code = Abnormal 41676-9) [facility] [facility] CenterANTI-NUCLEAR ANTIBODY-PATHOLOGIST [id number] 04:21:00ANA - Pathologist 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The CARLOS ENRIQUE result is negative on interpretation. Norberto Pereira MD ?11/01/2020 ?10:20 PM [facility] LABORATORY SERVICESUnMet[facility] [id number] 13:32:00 Test Item Value Reference Range 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 Comments CSF CULTURE (test No organisms isolated code = 606-4) Gram stain (test code Moderate Mononuclear = 664-3) cells [facility] CULTURE [id number] 09:01:00 Test Item Value Reference Range 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 Comments Blood Culture-Aerobic No organisms No growth Previo us (test code = 16775-5) isolated prelim inary verified result was Culture In Progress on 10/26/2020 at 06 CSTPrevious preliminary verified result was No growth a t 24 hours on 10/27/2020 at 01 CSTPrevious preliminary verified result was No growth a t 48 hours on 10/28/2020 at 03 01 CSTPrevious preliminary verified result was No growth a t 72 hours on 10/29/2020 at 03 01 MUSIC THERAPY SPECIALIST Blood No organisms No growth Previous Culture-Anaerobic isolated preliminar y (test code = 94355-2) verifi ed result was Culture In Progress on 10/26/2020 at 06 01 CSTPrevious preliminary verified result was No growth a t 24 hours on 10/27/2020 at 03 01 CSTPrevious preliminary verified result was No growth a t 48 hours on 10/28/2020 at 03 01 CSTPrevious preliminary verified result was No growth a t 72 hours on 10/29/2020 at 03 01 MUSIC THERAPY SPECIALIST Lab 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 Normal (test code = 25912-5) [facility] CULTURE [id number] 09:01:00 Test Item Value Reference Range 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 Comments Blood Culture-Aerobic No organisms No growth Previo us (test code = 16392-4) isolated prelim inary verified result was Culture In Progress on 10/26/2020 at 06 01 CSTPrevious preliminary verified result was No growth a t 24 hours on 10/27/2020 at 03 01 CSTPrevious preliminary verified result was No growth a t 48 hours on 10/28/2020 at 03 01 CSTPrevious preliminary verified result was No growth a t 72 hours on 10/29/2020 at 03 01 MUSIC THERAPY SPECIALIST Blood No organisms No growth Previous Culture-Anaerobic isolated preliminar y (test code = 57950-4) verifi ed result was Culture In Progress on 10/26/2020 at 06 01 CSTPrevious preliminary verified result was No growth a t 24 hours on 10/27/2020 at 03 01 CSTPrevious preliminary verified result was No growth a t 48 hours on 10/28/2020 at 03 01 CSTPrevious preliminary verified result was No growth a t 72 hours on 10/29/2020 at 03 01 MUSIC THERAPY SPECIALIST Lab 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 Normal (test code = 41541-7) [facility] CenterB[facility] FL[facility] DIRECT [id number] 21:04:00 Test Item Value Reference Range 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 Comments BF COLOR (test code = Clear 8050162423) BF WBC Count (test See_Comment [Automat ed message] The code = 7053176593) system [facility] generated this result transmit carol reference range : 0 - 5 /?L. The reference r irvin was not used to interpr et this result as anoop l/abnormal. BF RBC Count (test See_Comment [Automat ed message] The code = 7521534446) system [facility] generated this result transmit carol reference range : /?L. The reference range was not used to interpr et this result as anoop l/abnormal. [facility] CenterBODY FLUID MANUAL [id number] 21:04:00 Test Item Value Reference Range 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 Comments BF SEGS (test code = 2534700062) 1 % 0-7 BF LYMPHS (test code = 4917741878) 21 % 28-96 L MACROPHAGE (test code = 6904946309) 9 % 16-56 L #CELS CNTD (test code = 6353794001) Lab 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 (test code = Abnormal 44735-6) [facility] CenterURINE [id number] 20:53:00 Test Item Value Reference Range 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 Comments URINE CULTURE (test >100,000 CFU/mL code = 630-4) Aerococcus urinae [facility] CenterCEREBROSPINAL FLUID [id number] 20:33:00 Test Item Value Reference Range 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 Comments GLU CSF (test code = 64 mg/dL 50-80 7469761543) UNSPUN BODY FLUID Colorless COLOR (test code = 6195791106) UNSPUN BODY FLUID Clear CLARITY (test code = 0936991587) SPUN BODY FLUID COLOR Colorless (test code = 4792587426) SPUN BODY FLUID Clear CLARITY (test code = 6071139941) Sediment (test code = The sediment volume is 7970890393) <0.1 mLs of the total fluid volume of 1.0 mLs and its color is red. [facility] CenterCEREBROSPINAL FLUID [id number] 20:33:00 Test Item Value Reference Range 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 Comments T. PRO CSF (test code = 53.0 mg/dL 15-45 H 2942198056) UNSPUN BODY FLUID COLOR Colorless (test code = 7988976116) UNSPUN BODY FLUID CLARITY Clear (test code = 7966910408) SPUN BODY FLUID COLOR Colorless (test code = 2811759393) SPUN BODY FLUID CLARITY Clear (test code = 7381490437) Sediment (test code = The sediment volume 7236379566) is <0.1 mLs of the total fluid volume of 1.0 mLs and its color is red. Lab 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 (test Abnormal code = 73780-1) [facility] CenterMisc. Sendout- [id number] autoimmune encephalitis [id number] 18:18:00 Test Item Value Reference Range 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 Comments Miscellaneous Test (test See scanned report code = 6484411935) Performing Lab (test code ARUP = 4252808258) [facility] CenterB[facility] (NA, K, CL, CO2, GLUCOSE, BUN, CREATININE, CA)2020-10-27 12:54:00 Test Item Value Reference Range 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 Comments NA (test code = 136 mmol/L 135-145 8775130982) K (test code = 3.7 mmol/L 3.5-5 7545417256) CL (test code = 103 mmol/L 98-108 0341433932) CO2 TOTAL (test code = 27 mmol/L 23-31 3956470802) AGAP (test code = 2-16 7988554501) BUN (test code = 15 mg/dL 7-23 2785014188) GLUCOSE (test code = 86 mg/dL 70-110 4126922722) CREATININE (test code = 0.45 mg/dL 0.5-1.04 L 6670400970) CALCIUM (test code = 8.7 mg/dL 8.6-10.6 6856278570) eGFR Calculation mL/min/1.73m2 (Non-) (test code = 7380400719) eGFR Calculation mL/min/1.73m2 () (test code = 0390017653) TANESHA (test code = TANESHA) Association of Glomerular Filtration Rate (GFR) and Staging of Kidney Disease* + --+ --+ ------+| GFR (mL/min/1.73 m2) ?| With Kidney Damage ?| ?Without Kidney Damage+ --------+ --------+ +| ?>90 ?| ?Stage one ?| ? Normal ?+ ---+ ---+ -------+| ?60-89 ?| ?Stage two ?| ? Decreased GFR ? + --+ --+ ------+| ?30-59 ?| ?Stage three ?| ? Stage three ? + --+ --+ ------+| ?15-29 ?| ?Stage four ? | ? Stage four ?+ ---+ ---+ -------+| ?<15 (or dialysis) ? ?| ?Stage five ? | ? Stage five ?+ ---+ ---+ -------+ *Each stage assumes the associated GFR level has been in effect for at least three months. ?Stages 1 to 5, with or without kidney disease, indicate chronic kidney disease. Notes: Determination of stages one and two (with eGFR >59mL/min/1.73 m2) requires estimation of kidney damage for at least three months as defined by structural or functional abnormalities of the kidney, manifested by either:Pathological abnormalities or Markers of kidney damage (including abnormalities in the composition of the blood or urine or abnormalities in imaging tests). Lab 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 Abnormal (test code = 49960-9) [facility] WITH [id number] 12:08:00 Test Item Value Reference Range 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 Comments WBC (test code = See_Comment [Automated 9290-2) message] The sy stem which generated this result transmitted reference range : 4.30 - 11.10 10*3/?L. The reference range was not used to interpret this result as normal/abnormal . RBC (test code = See_Comment L [Automated 789-8) message] The sy stem which generated this result transmitted reference range : 3.93 - 5.25 10*6/?L. The reference range was not used to interpret this result as normal/abnormal . HGB (test code = 9.4 g/dL 11.6-15 L 718-7) HCT (test code = 28.3 % 35.7-45.2 L 4544-3) MCV (test code = 95.9 fL 80.6-95.5 H 787-2) MCH (test code = 31.9 pg 25.9-32.8 785-6) MCHC (test code = 33.2 g/dL 31.6-35.1 786-4) RDW-SD (test code = 50.7 fL 39-49.9 H 33678-1) RDW-CV (test code = 14.8 % 12-15.5 788-0) PLT (test code = See_Comment [Automated 777-3) message] The sy stem which generated this result transmitted reference range : 166 - 358 10*3/ ?L. The reference r irvin was not used to interpret this result as normal/abnormal . MPV (test code = 11.3 fL 9.5-12.9 26620-8) NRBC/100 WBC (test See_Comment [Automat ed code = 1184544730) message] The system which generated this result transmitted reference range : 0.0 - 10.0 /100 WBCs. The refer ence range was not u sed to interpret th is result as normal/abnormal . NRBC x10^3 (test code <0.01 See_Comment [Auto mated = 0081779044) message] The s ystem which generated this result transmitted reference range : 10*3/?L. The reference range was not used to interpret this result as normal/abnormal . GRAN MAT (NEUT) % 76.2 % (test code = 770-8) IMM GRAN % (test code 0.40 % = 8321191294) LYMPH % (test code = 13.7 % 736-9) MONO % (test code = 8.4 % 5905-5) EOS % (test code = 0.9 % 713-8) BASO % (test code = 0.4 % 706-2) GRAN MAT x10^3(ANC) 4.18 10*3/uL 1.88-7.09 (test code = 7309990690) IMM GRAN x10^3 (test <0.03 0-0.06 code = 6547885542) LYMPH x10^3 (test code 0.75 10*3/uL 1.32-3.29 L = 731-0) MONO x10^3 (test code 0.46 10*3/uL 0.33-0.92 = 742-7) EOS x10^3 (test code = 0.05 10*3/uL 0.03-0.39 711-2) BASO x10^3 (test code <0.03 0.01-0.07 = 704-7) Lab 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 Abnormal (test code = 17768-5) [facility] CenterPOCT GLUCOSE (AUTOMATED)2020-10-27 02:27:00 Test Item Value Reference Range 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 Comments POCT GLU (test code = 2916498409) 97 mg/dL 70-110 Lab 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 (test code = Normal 17731-3) [facility] CenterLAB ONLY COVID [id number] 23:29:00COVID DMT 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/Recommendations: Molecular NAAT Tests for Active Infection with the SARS-CoV-2 Virus: This patient has tested negative on two occasions for the SARS-CoV-2 virus that causes COVID-19 illness. This most likely indicates that the patient does not have an active infection with the SARS-CoV-2 virus, especially if these tests coincide with the patient's current presentation. However, infection is not completely ruled out as the false negative rate for molecular NAAT testing using a nasopharyngeal sample can be up to 30%, mostly dependent on the timing of sample collection in relation to illness onset and any deficiencies in sampling techniques. If the patient has sy mptoms concerning for COVID-19 illness, a repeat NAAT test (PCR, Rapid ID Now, etc.) should be performed, at which time the SARS-CoV-2 virus - if present - may have reached a detectable viral load (usually peaking by the end of the first week of symptoms). Tests for IgM and/or IgG Antibodies to SARS-CoV-2 Virus: Testing for IgM and IgG antibodies 1-3 weeks after illness onset will indicate whether the patient has produced antibodies to the virus. At this time, it is not known if the production of antibodies - specifically IgG antibodies - indicates whether the patient is immune to future infections with the SARS-CoV-2 virus. 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 Result Comments:These interpretation comments are based upon all COVID-19 testing the patient has had at [facility], including molecular NAAT testing (more commonly known as PCR testing and Rapid ID Now testing) and antibody testing. It does not take into account any testing that a patient has had outside of the [facility] medical record. [facility] LABORATORY SERVICESCOVID DdfvebqARAQ-XyF-5 Rapid IDNOW (no units) ? ? Date ? Value ? 10/26/2020 ? Not Detected ? ? ? 10/11/2020 ? Not Detected ? [facility] LABORATORY SERVICESUnMethodist HospitalCT CHEST PULMONARY [id number] 21:51:22 1. No evidence of acute or chronic pulmonary embolism through the level ofthe segmental pulmonary arteries. The distal segmental and subsegmentalbranches are unfortunately obscured by significant respiratory motionparticularly at the lung bases. 2. Borderline caliber of the pulmonary trunk up to 3 cmin greatestdiameter. Mild low cardiomegaly. Moderate atherosclerotic calcifications ofthe coronary vessels. No evidence of acute cardiac decompensation. 3. Small left pleural effusion with underlying atelectatic changes. Earlypneumonia not completely excluded. 4. Stable compression deformity of T8 vertebral body. INuris MD., have reviewed this study and agree with theabove report.PROCEDURE: CT CHEST WITH CONTRAST- CHEST PE PROTOCOL CLINICAL INDICATION:65 years old female ; Indication for study: r/o PE ? Comparison: ?CT thorax dated 10/17/2020, radiograph dated 10/26/2020 TECHNIQUE: Volumetric helical CT angiogram was performed of the chest (lungapices to bases) with IV contrast. Images were reconstructed at 1.25 mmslice thickness. Corresponding axial, sagittal and coronal MIP images wereperformed. . FINDINGS: Interval removal of mid-esophagus Dobbhoff tube. HEART AND GREAT VESSELS: The opacification of the pulmonary vasculature isappropriate however the distal segmental and subsegmental pulmonaryarteries levels are obscured by respiratory motion. The pulmonary trunk isnormal in caliber and measures 3.2 cm. The thoracic aorta is normal in caliber. Mild atherosclerotic diseaseaffects the aorta. Type I aortic arch three-vessel anatomy. The heart is normal in size. Mild coronaryarterial calcifications arepresent. No pericardial abnormalities are identified. The RV to LV isnormal. A trace pericardial effusion is suspected. MEDIASTINUM AND LOWER NECK: No central airway lesions are detected. Theesophagus is within normal limits. Fullness at the GE junction mayrepresent small hiatal hernia. The included thyroid gland appears normal. LYMPH NODES: Scattered small lymph nodes in both sides of the mediastinumand hilar regions. No evidence of intrathoracic lymphadenopathy. LUNGS AND PLEURA: The lungs are adequately expanded. There is mildelevation of the left hemidiaphragm. Thereis bibasilar subsegmentalatelectasis, more prominent on the left. A trace left pleural effusion issuspected. No focal opacities or suspicious nodules is identified. Nopneumothorax. Mild diffuse bronchial wall thickening with subtle scatteredfoci of peripheral airway impaction. The lower lobes are obscured byrespiratory motion. VISUALIZED UPPER ABDOMEN: The included solid organs and hollow viscusappear within normal limits. 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 OSSEOUS STRUCTURES AND SOFT TISSUES: No focal osseous lesions are detected.The soft tissues appear normal. Multilevel degenerative changes of thespine. Again seen is a moderate compression deformity of T8 vertebral body.Of note previously noted L1 vertebral body compression deformity is notidentified on the current study. Mild pectus excavating deformity is noted.Diffuse bone demineralization isnoted. Sarcopenia is noted. The includedsoft tissues of the breasts are within normal limits. [facility], Radiant Results Inft User - 10/26/2020 3:52 PM CSTPROCEDURE: CT CHEST WITH CONTRAST- CHEST PE PROTOCOLCLINICAL INDICATION:65 years old female ; Indication for study: r/o PE Comparison: CT thorax dated 10/17/2020, radiograph dated 10/26/2020TECHNIQUE: Volumetric helical CT angiogram was performed of the chest (lungapices to bases) with IV contrast. Images were reconstructed at 1.25 mmslice thickness. Corresponding axial, sagittal and coronal MIP images wereperformed. .FINDINGS:Interval removal of mid-esophagus Dobbhoff tube.HEART AND GREAT VESSELS: The opacification of the pulmonary vasculature isappropriate however the distal segmental and subsegmental pulmonaryarteries levels are obscured by respiratory motion. The pulmonary trunk isnormal in caliber and measures 3.2 cm. The thoracic aorta is normal in caliber. Mild atherosclerotic diseaseaffects the aorta. Type I aortic arch three-vessel anatomy.The heart is normal in size. Mild coronary arterial calcifications arepresent. No pericardial abnormalities are identified. The RV to LV isnormal. A trace pericardial effusion is suspected.MEDIASTINUM AND LOWER NECK: No central airway lesions are detected. Theesophagus is within normal limits. Fullness at the GE junction mayrepresent small hiatal hernia. The included thyroid gland appears normal. LY MPH NODES: Scattered small lymph nodes in both sides of the mediastinumand hilar regions. No evidence of intrathoracic lymphadenopathy.LUNGS AND PLEURA: The lungs are adequately expanded. There is mildelevation of the left hemidiaphragm. There is bibasilar subsegmentalatelectasis, more prominent on the left. A trace left pleural effusion issuspected. No focal opacities or suspicious nodules is identified. Nopneumothorax. Mild diffuse bronchial wall thickening with subtle scatteredfoci of peripheral airway impaction. The lower lobes are obscured byrespiratory motion.VISUALIZED UPPER ABDOMEN: The included solid organs and hollow viscusappear within normal limits. Suspected subcentimeter calcified spl enicartery aneurysm on series 2, images 220.OSSEOUS STRUCTURES AND SOFT TISSUES: No focal osseous lesions are detected.The soft tissues appear normal. Multilevel degenerative changes of thespine. Againseen is a moderate compression deformity of T8 vertebral body.Of note previously noted L1 vertebral body compression deformity is notidentified on the current study. Mild pectus excavating deformity isnoted.Diffuse bone demineralization is noted. Sarcopenia is noted. The includedsoft tissues of the breasts are within normal limits.IMPRESSION1. No evidence of acute or chronic pulmonary embolism through the level ofthe segmental pulmonary arteries. The distal segmental and subsegmentalbranches are unfortunately obscured by significant respiratory motionparticularly at the lung bases.2. Borderline caliber of the pulmonary trunk up to 3 cm in greatestdiameter. Mild low cardiomegaly. Moderate atherosclerotic calcifications ofthe coronary vessels. No evidence of acute cardiac decompensation.3. Small le ft pleural effusion with underlying atelectatic changes. Earlypneumonia not completely excluded.4. Stable compression deformity of T8 vertebral body.Nuris Herrera MD., have reviewed this study and agree with theabove report.[facility] CenterCOVID-[facility] (ID NOW RAPID TESTING) 2020-10-26 20:17:00 Test Item Value Reference Range 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 Comments SARS-CoV-2 Rapid ID NOW Not Detected Not Detected (test code = 88336-2) TANESHA (test code = TANESHA) ID NOW COVID-19 Assay is an isothermal nucleic acid amplification test intended for the qualitative detection of nucleic acid from SARS-CoV-2 viral RNA in nasopharyngeal (INSPECTOR PURCHASED PARTS) specimens. It is used under Emergency Use Authorization (EUA) by FDA. The limit of detection (LOD) of the assay is 125 Genome Equivalents/mL. A positive result is indicative of the presence of SARS-CoV-2 RNA. ?Clinical correlation with patient history and other diagnostic information is necessary to determine patient infection status. A negative (Not Detected) result does not preclude SARS-CoV-2 infection. In patients with clinical symptoms and other tests that are consistent with SARS-CoV-2 infection, negative results should be treated as presumptive negative and a new specimen should be tested with alternative PCR molecular test. Invalid: Please collect a new specimen for repeat patient testing if clinically indicated. Lab 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 Normal (test code = 73682-6) [facility] CenterMR BRAIN W WO [id number] 19:11:48 No acute intracranial abnormality. Preliminary Report Dictated by Resident: Ernie Alonzo MD., have reviewed this study and agree with the abovereport.MR BRAIN W WO CONTRAST COMPARISON: MR brain 10/18/2020. HISTORY: Encephalopathy TECHNIQUE: 3 Lisa multiplanar multiweighted MR brain prior to and afterintravenous contrast administration.Contrast: 9 mL of Prohance intravenous. FINDINGS: The ventricles and cerebral sulci are normal in caliber and configuration,for patient's age.No midline shift, hydrocephalus or pathologicalextra-axial fluid collection is present. The basal cisterns areunremarkable. No restricted diffusion is present to suggest acute infarct. A fewscattered T2/FLAIR bihemispheric white matter and pontine hyperintensities,likely related to chronic microvascular ischemic changes.Right basalganglia lacunar infarct. No abnormal intracranial enhancement seen. Few foci of the SWI hypointensity are again demonstrated in the rightinsular region and subarachnoid space just anterior to the right cerebralpeduncle, likely related to microhemorrhagic deposits or mineralization. The T2 flow voids for the major intracranial vessels are unremarkable. Noabnormal fluid signal is present in the mastoid air cells or paranasal airsinuses. T1 hyperintense signal is noted in the right petrous apex likely related toretained secretion within pneumatized petrous apex. [facility], Radiant Results Inft User - 10/26/2020 1:12 PM CSTMR BRAIN W WO CONTRASTCOMPARISON: MR brain 10/18/2020.HISTORY: Encephalopathy TECHNIQUE: 3 Lisa multiplanar multiweighted MR brain prior to and afterintrav enous contrast administration.Contrast: 9 mL of Prohance intravenous. FINDINGS:The ventricles and cerebral sulci are normal in caliber and configuration,for patient's age. No midline shift, hydrocephalus or pathologicalextra-axial fluid collection is present. The basal cisterns areunremarkable.No restricted diffusion is present to suggest acute infarct. A fewscattered T2/FLAIR bihemispheric white matter and pontine hyperintensities,likely related to chronic microvascular ischemic changes.Right basalganglia lacunar infarct.No abnormal intracranial enhancement seen.Few foci of the SWI hypointensity are again demonstrated in the rightinsular region and subarachnoid space just anterior to the right cerebralpeduncle, likely related to microhemorrhagic deposits or mineralization.The T2 flow voids for the major intracranial vessels are unremarkable. Noabnormal fluid signal is present in the mastoid aircells or paranasal airsinuses.T1 hyperintense signal is noted in the right petrous apex likely related toretained secretion within pneumatized petrous apex.IMPRESSIONNo acute intracranial abnormality.Preliminary Report Dictated by Resident: Britton Ricci MD., have reviewed this study and agree with the abovereport.[facility] CenterXR CHEST 1 [id number] 15:47:30EXAM: XR CHEST 1 VW HISTORY: Fever COMPARISON: None. FINDINGS: Since an image obtained a week earlier, the left hemidiaphragm has becomeelevated, and changes of basilar subsegmental atelectasis are present onboth sides. The lungs are clear otherwise. The heart and great vessels arenormal. ? [facility], Radiant Results Inft User - 10/26/2020 9:48 AM CSTEXAM: XR CHEST 1 VWHISTORY: Fever COMPARISON: None.FINDINGS:Since an image obtained a week earlier, the left hemidiaphragm has becomeelevated, and changes of basilar subsegmental atelectasis are present onboth sides. The lungs are clear otherwise. The heart and great vessels arenormal.[facility] CenterD-[id number] 11:22:00 Test Item Value Reference 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 Comments Range D-DIMER (test code = See_Comment H [Autom ated [id number]) message] The system which generated this result transmitted reference range : <0.50 ?g/mL (FEU). The reference range was not used to interpret this result as normal/abnormal . TANESHA (test code = This test may be TANESHA) used in conjunction with a clinical pretest probability (PTP) assessment model to exclude venous thromboembolism (VTE) in patients suspected of deep venous thrombosis (DVT) and pulmonary embolism (PE) A D-Dimer value less than 0.50 ?g/ml (FEU) has a negative predicative value of 96 to 100% (95% CI)and 97 to 100% (95% CI) as an aid in the diagnosis of deep vein thrombosis (DVT) and pulmonary embolism when there is low or moderate pretest probability of PE or DVT. D-Dimer values are expressed in initial fibrinogen equivalent units (FEU)" The assay results should be used with other information, including the clinical context, in forming a diagnosis. Lab 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 Abnormal (test code = 56974-6) [facility] Test Item Value Reference Range 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 Comments APPEARANCE (test code = Cloudy Clear A 4174652677) COLOR (test code = Yellow Yellow 2347627348) PH (test code = 4.8-8.0 2327231578) SP GRAVITY (test code = 1.003-1.030 3265345879) GLU U QUAL (test code = Normal Normal 6568033641) BLOOD (test code = Negative Negative 6129832928) KETONES (test code = Negative Negative 5804330599) PROTEIN (test code = Negative Negative 2887-8) UROBILIN (test code = Normal Normal 8344772886) BILIRUBIN (test code = Negative Negative 5843803800) NITRITE (test code = Negative Negative 9410578319) LEUK EDINSON (test code = Negative Negative 5803630881) RBC/HPF (test code = See_Comment [Autom ated message] 5394626816) The system [employer] generated this result transmitted ref erence range: 0 - 3 HP F. The reference range was not used to int erpret this result as normal/abnormal . WBC/HPF (test code = See_Comment [Autom ated message] 1928274126) The system [employer] generated this result transmitted ref erence range: 0 - 5 HP F. The reference range was not used to int erpret this result as normal/abnormal . BACTERIA (test code = Negative Negative 0972515206) AMORPHOUS (test code = Moderate Rare HPF A 2124351455) ASCORBIC ACID (test code Negative = 4314331988) Lab 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 (test Abnormal code = 49649-0) [facility] (NA, K, CL, CO2, GLUCOSE, BUN, CREATININE, CA)2020-10-26 08:22:00 Test Item Value Reference Range 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 Comments NA (test code = 134 mmol/L 135-145 L 6419984432) K (test code = 4.0 mmol/L 3.5-5 5108258113) CL (test code = 100 mmol/L 98-108 4019475509) CO2 TOTAL (test code = 28 mmol/L 23-31 6829514718) AGAP (test code = 2-16 1423058354) BUN (test code = 16 mg/dL 7-23 4327387704) GLUCOSE (test code = 157 mg/dL 70-110 H 8869518813) CREATININE (test code = 0.57 mg/dL 0.5-1.04 7323580851) CALCIUM (test code = 9.2 mg/dL 8.6-10.6 2576372379) eGFR Calculation mL/min/1.73m2 (Non-) (test code = 9161789676) eGFR Calculation mL/min/1.73m2 () (test code = 1222785053) TANESHA (test code = TANESHA) Association of Glomerular Filtration Rate (GFR) and Staging of Kidney Disease* + --+ --+ ------+| GFR (mL/min/1.73 m2) ?| With Kidney Damage ?| ?Without Kidney Damage+ --------+ --------+ +| ?>90 ?| ?Stage one ?| ? Normal ?+ ---+ ---+ -------+| ?60-89 ?| ?Stage two ?| ? Decreased GFR ? + --+ --+ ------+| ?30-59 ?| ?Stage three ?| ? Stage three ? + --+ --+ ------+| ?15-29 ?| ?Stage four ? | ? Stage four ?+ ---+ ---+ -------+| ?<15 (or dialysis) ? ?| ?Stage five ? | ? Stage five ?+ ---+ ---+ -------+ *Each stage assumes the associated GFR level has been in effect for at least three months. ?Stages 1 to 5, with or without kidney disease, indicate chronic kidney disease. Notes: Determination of stages one and two (with eGFR >59mL/min/1.73 m2) requires estimation of kidney damage for at least three months as defined by structural or functional abnormalities of the kidney, manifested by either:Pathological abnormalities or Markers of kidney damage (including abnormalities in the composition of the blood or urine or abnormalities in imaging tests). Lab 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 Abnormal (test code = 30698-1) [facility] 08:22:00 Test Item Value Reference Range 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 Comments MAGNESIUM (test code = 2218953238) 1.8 mg/dL 1.7-2.4 Lab 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 (test code = Normal 93177-8) [facility] (NA, K, CL, CO2, GLUCOSE, BUN, CREATININE, CA)2020-10-25 11:09:00 Test Item Value Reference Range 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 Comments NA (test code = 135 mmol/L 135-145 7181645832) K (test code = 4.1 mmol/L 3.5-5 9080535642) CL (test code = 102 mmol/L 98-108 4726367250) CO2 TOTAL (test code = 30 mmol/L 23-31 8193913632) AGAP (test code = 2-16 4112343809) BUN (test code = 9 mg/dL 7-23 7830231116) GLUCOSE (test code = 94 mg/dL 70-110 2700881954) CREATININE (test code = 0.42 mg/dL 0.5-1.04 L 4387855290) CALCIUM (test code = 8.6 mg/dL 8.6-10.6 6960060679) eGFR Calculation mL/min/1.73m2 (Non-) (test code = 2850024080) eGFR Calculation mL/min/1.73m2 () (test code = 7523547721) TANESHA (test code = TANESHA) Association of Glomerular Filtration Rate (GFR) and Staging of Kidney Disease* + --+ --+ ------+| GFR (mL/min/1.73 m2) ?| With Kidney Damage ?| ?Without Kidney Damage+ --------+ --------+ +| ?>90 ?| ?Stage one ?| ? Normal ?+ ---+ ---+ -------+| ?60-89 ?| ?Stage two ?| ? Decreased GFR ? + --+ --+ ------+| ?30-59 ?| ?Stage three ?| ? Stage three ? + --+ --+ ------+| ?15-29 ?| ?Stage four ? | ? Stage four ?+ ---+ ---+ -------+| ?<15 (or dialysis) ? ?| ?Stage five ? | ? Stage five ?+ ---+ ---+ -------+ *Each stage assumes the associated GFR level has been in effect for at least three months. ?Stages 1 to 5, with or without kidney disease, indicate chronic kidney disease. Notes: Determination of stages one and two (with eGFR >59mL/min/1.73 m2) requires estimation of kidney damage for at least three months as defined by structural or functional abnormalities of the kidney, manifested by either:Pathological abnormalities or Markers of kidney damage (including abnormalities in the composition of the blood or urine or abnormalities in imaging tests). Lab 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 Abnormal (test code = 42047-3) [facility] 11:09:00 Test Item Value Reference Range 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 Comments MAGNESIUM (test code = 9948297854) 1.8 mg/dL 1.7-2.4 Lab 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 (test code = Normal 01186-7) [facility] WITH [id number] 11:00:00 Test Item Value Reference Range 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 Comments WBC (test code = See_Comment [Automated 4990-2) message] The sy stem which generated this result transmitted reference range : 4.30 - 11.10 10*3/?L. The reference range was not used to interpret this result as normal/abnormal . RBC (test code = See_Comment L [Automated 249-8) message] The sy stem which generated this result transmitted reference range : 3.93 - 5.25 10*6/?L. The reference range was not used to interpret this result as normal/abnormal . HGB (test code = 10.1 g/dL 11.6-15 L 718-7) HCT (test code = 30.7 % 35.7-45.2 L 4544-3) MCV (test code = 95.0 fL 80.6-95.5 787-2) MCH (test code = 31.3 pg 25.9-32.8 785-6) MCHC (test code = 32.9 g/dL 31.6-35.1 786-4) RDW-SD (test code = 48.7 fL 39-49.9 25048-5) RDW-CV (test code = 14.3 % 12-15.5 788-0) PLT (test code = See_Comment [Automated 777-3) message] The sy stem which generated this result transmitted reference range : 166 - 358 10*3/ ?L. The reference r irvin was not used to interpret this result as normal/abnormal . MPV (test code = 11.3 fL 9.5-12.9 97331-1) NRBC/100 WBC (test See_Comment [Automat ed code = 6394322118) message] The system which generated this result transmitted reference range : 0.0 - 10.0 /100 WBCs. The refer ence range was not u sed to interpret th is result as normal/abnormal . NRBC x10^3 (test code <0.01 See_Comment [Auto mated = 2802237862) message] The s ystem which generated this result transmitted reference range : 10*3/?L. The reference range was not used to interpret this result as normal/abnormal . GRAN MAT (NEUT) % 77.5 % (test code = 770-8) IMM GRAN % (test code 0.50 % = 4245822858) LYMPH % (test code = 10.3 % 736-9) MONO % (test code = 9.9 % 5905-5) EOS % (test code = 1.3 % 713-8) BASO % (test code = 0.5 % 706-2) GRAN MAT x10^3(ANC) 4.76 10*3/uL 1.88-7.09 (test code = 7153480495) IMM GRAN x10^3 (test 0.03 10*3/uL 0-0.06 code = 6375380414) LYMPH x10^3 (test code 0.63 10*3/uL 1.32-3.29 L = 731-0) MONO x10^3 (test code 0.61 10*3/uL 0.33-0.92 = 742-7) EOS x10^3 (test code = 0.08 10*3/uL 0.03-0.39 711-2) BASO x10^3 (test code 0.03 10*3/uL 0.01-0.07 = 704-7) Lab 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 Abnormal (test code = 75779-4) [facility] [id number] 20:53:00 Test Item Value Reference Range 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 Comments FREE T4 (test code = See_Comment [Autom ated message] 2888286195) The system ic h generated this result transmitted ref erence range: 0.78 - 2 .20 ng/dL:. The ref erence range was not u sed to interpret this result as normal/abnor mal. Lab 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 (test Normal code = 82792-1) [facility]IM[facility] [id number] 17:22:00 Test Item Value Reference Range 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 Comments TSH (test code = See_Comment Biotin has been 9704024434) reported to cau se a negative bias, interpret resul ts relative to pat yasmeen's use of biotin. [Automated mess age] The system [employer] generated this result transmitted ref erence range: 0.45 - 4 .70 mIU/L. The refe rence range was not u sed to interpret this result as normal/abnor mal. Lab 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 (test Normal code = 01849-9) [facility] (NA, K, CL, CO2, GLUCOSE, BUN, CREATININE, CA)2020-10-24 09:56:00 Test Item Value Reference Range 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 Comments NA (test code = 135 mmol/L 135-145 3158713715) K (test code = 3.5 mmol/L 3.5-5 9974239634) CL (test code = 104 mmol/L 98-108 1793001990) CO2 TOTAL (test code = 28 mmol/L 23-31 1479175972) AGAP (test code = 2-16 7759518100) BUN (test code = 12 mg/dL 7-23 2244659496) GLUCOSE (test code = 96 mg/dL 70-110 3572475458) CREATININE (test code = 0.42 mg/dL 0.5-1.04 L 1779444170) CALCIUM (test code = 8.6 mg/dL 8.6-10.6 8919718783) eGFR Calculation mL/min/1.73m2 (Non-) (test code = 2650495925) eGFR Calculation mL/min/1.73m2 () (test code = 3378972773) TANESHA (test code = TANESHA) Association of Glomerular Filtration Rate (GFR) and Staging of Kidney Disease* + --+ --+ ------+| GFR (mL/min/1.73 m2) ?| With Kidney Damage ?| ?Without Kidney Damage+ --------+ --------+ +| ?>90 ?| ?Stage one ?| ? Normal ?+ ---+ ---+ -------+| ?60-89 ?| ?Stage two ?| ? Decreased GFR ? + --+ --+ ------+| ?30-59 ?| ?Stage three ?| ? Stage three ? + --+ --+ ------+| ?15-29 ?| ?Stage four ? | ? Stage four ?+ ---+ ---+ -------+| ?<15 (or dialysis) ? ?| ?Stage five ? | ? Stage five ?+ ---+ ---+ -------+ *Each stage assumes the associated GFR level has been in effect for at least three months. ?Stages 1 to 5, with or without kidney disease, indicate chronic kidney disease. Notes: Determination of stages one and two (with eGFR >59mL/min/1.73 m2) requires estimation of kidney damage for at least three months as defined by structural or functional abnormalities of the kidney, manifested by either:Pathological abnormalities or Markers of kidney damage (including abnormalities in the composition of the blood or urine or abnormalities in imaging tests). Lab 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 Abnormal (test code = 73599-9) [facility] 09:56:00 Test Item Value Reference Range 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 Comments MAGNESIUM (test code = 2882989035) 1.8 mg/dL 1.7-2.4 Lab 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 (test code = Normal 63251-5) [facility] WITH [id number] 09:35:00 Test Item Value Reference Range 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 Comments WBC (test code = See_Comment L [Automated 8590-2) message] The sy stem which generated this result transmitted reference range : 4.30 - 11.10 10*3/?L. The reference range was not used to interpret this result as normal/abnormal . RBC (test code = See_Comment L [Automated 439-8) message] The sy stem which generated this result transmitted reference range : 3.93 - 5.25 10*6/?L. The reference range was not used to interpret this result as normal/abnormal . HGB (test code = 10.2 g/dL 11.6-15 L 718-7) HCT (test code = 30.2 % 35.7-45.2 L 4544-3) MCV (test code = 93.5 fL 80.6-95.5 787-2) MCH (test code = 31.6 pg 25.9-32.8 785-6) MCHC (test code = 33.8 g/dL 31.6-35.1 786-4) RDW-SD (test code = 47.4 fL 39-49.9 40642-1) RDW-CV (test code = 14.0 % 12-15.5 788-0) PLT (test code = See_Comment [Automated 777-3) message] The sy stem which generated this result transmitted reference range : 166 - 358 10*3/ ?L. The reference r irvin was not used to interpret this result as normal/abnormal . MPV (test code = 11.1 fL 9.5-12.9 47007-3) NRBC/100 WBC (test See_Comment [Automat ed code = 7590228292) message] The system which generated this result transmitted reference range : 0.0 - 10.0 /100 WBCs. The refer ence range was not u sed to interpret th is result as normal/abnormal . NRBC x10^3 (test code <0.01 See_Comment [Auto mated = 6181351771) message] The s ystem which generated this result transmitted reference range : 10*3/?L. The reference range was not used to interpret this result as normal/abnormal . GRAN MAT (NEUT) % 64.9 % (test code = 770-8) IMM GRAN % (test code 0.30 % = 7215042766) LYMPH % (test code = 16.2 % 736-9) MONO % (test code = 16.2 % 5905-5) EOS % (test code = 2.1 % 713-8) BASO % (test code = 0.3 % 706-2) GRAN MAT x10^3(ANC) 2.20 10*3/uL 1.88-7.09 (test code = 4654911067) IMM GRAN x10^3 (test <0.03 0-0.06 code = 1722966096) LYMPH x10^3 (test code 0.55 10*3/uL 1.32-3.29 L = 731-0) MONO x10^3 (test code 0.55 10*3/uL 0.33-0.92 = 742-7) EOS x10^3 (test code = 0.07 10*3/uL 0.03-0.39 711-2) BASO x10^3 (test code <0.03 0.01-0.07 = 704-7) Lab 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 Abnormal (test code = 86817-8) [facility] CULTURE [id number] 00:01:00 Test Item Value Reference Range 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 Comments Blood Culture-Aerobic No organisms No growth Previo us (test code = 63247-4) isolated prelim inary verified result was Culture In Progress on 10/17/2020 at 21 01 CSTPrevious preliminary verified result was No growth a t 24 hours on 10/18/2020 at 18 01 CSTPrevious preliminary verified result was No growth a t 48 hours on 10/19/2020 at 18 01 CSTPrevious preliminary verified result was No growth a t 72 hours on 10/20/2020 at 18 01 [employer] Blood No organisms No growth Previous Culture-Anaerobic isolated preliminar y (test code = 57884-6) verifi ed result was Culture In Progress on 10/17/2020 at 21 01 CSTPrevious preliminary verified result was No growth a t 24 hours on 10/18/2020 at 18 01 CSTPrevious preliminary verified result was No growth a t 48 hours on 10/19/2020 at 18 01 CSTPrevious preliminary verified result was No growth a t 72 hours on 10/20/2020 at 18 01 [employer] Lab 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 Normal (test code = 23622-3) [facility] CULTURE [id number] 22:01:00 Test Item Value Reference Range 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 Comments Blood Culture-Aerobic No organisms No growth Previo us (test code = 32718-9) isolated prelim inary verified result was Culture In Progress on 10/17/2020 at 19 01 CSTPrevious preliminary verified result was No growth a t 24 hours on 10/18/2020 at 16 01 CSTPrevious preliminary verified result was No growth a t 48 hours on 10/19/2020 at 16 01 CSTPrevious preliminary verified result was No growth a t 72 hours on 10/20/2020 at 16 01 [employer] TH[employer] Blood No organisms No growth Previous Culture-Anaerobic isolated preliminar y (test code = 28857-2) verifi ed result was Culture In Progress on 10/17/2020 at 19 01 CSTPrevious preliminary verified result was No growth a t 24 hours on 10/18/2020 at 16 01 CSTPrevious preliminary verified result was No growth a t 48 hours on 10/19/2020 at 16 01 CSTPrevious preliminary verified result was No growth a t 72 hours on 10/20/2020 at 16 01 [employer] Lab 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 Normal (test code = 21188-4) [facility] METABOLIC PANEL (NA, K, CL, CO2, GLUCOSE, BUN, CREATININE, CA)2020-10-22 11:53:00 Test Item Value Reference Range 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 Comments NA (test code = 130 mmol/L 135-145 L 9933849658) K (test code = 4.1 mmol/L 3.5-5 3960704262) CL (test code = 99 mmol/L 98-108 7925031077) CO2 TOTAL (test code = 31 mmol/L 23-31 7889550602) AGAP (test code = <1 2-16 L 1739311579) BUN (test code = 16 mg/dL 7-23 0829356644) GLUCOSE (test code = 100 mg/dL 70-110 6812979785) CREATININE (test code = 0.42 mg/dL 0.5-1.04 L 9523755685) CALCIUM (test code = 8.4 mg/dL 8.6-10.6 L 5661208598) eGFR Calculation mL/min/1.73m2 (Non-) (test code = 8163642060) eGFR Calculation mL/min/1.73m2 () (test code = 5622472875) TANESHA (test code = TANESHA) Association of Glomerular Filtration Rate (GFR) and Staging of Kidney Disease* + --+ --+ ------+| GFR (mL/min/1.73 m2) ?| With Kidney Damage ?| ?Without Kidney Damage+ --------+ --------+ +| ?>90 ?| ?Stage one ?| ? Normal ?+ ---+ ---+ -------+| ?60-89 ?| ?Stage two ?| ? Decreased GFR ? + --+ --+ ------+| ?30-59 ?| ?Stage three ?| ? Stage three ? + --+ --+ ------+| ?15-29 ?| ?Stage four ? | ? Stage four ?+ ---+ ---+ -------+| ?<15 (or dialysis) ? ?| ?Stage five ? | ? Stage five ?+ ---+ ---+ -------+ *Each stage assumes the associated GFR level has been in effect for at least three months. ?Stages 1 to 5, with or without kidney disease, indicate chronic kidney disease. Notes: Determination of stages one and two (with eGFR >59mL/min/1.73 m2) requires estimation of kidney damage for at least three months as defined by structural or functional abnormalities of the kidney, manifested by either:Pathological abnormalities or Markers of kidney damage (including abnormalities in the composition of the blood or urine or abnormalities in imaging tests). Lab 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 Abnormal (test code = 89675-8) [facility] WITH [id number] 10:59:00 Test Item Value Reference Range 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 Comments WBC (test code = See_Comment L [Automated 6690-2) message] The sy stem which generated this result transmitted reference range : 4.30 - 11.10 10*3/?L. The reference range was not used to interpret this result as normal/abnormal . RBC (test code = See_Comment L [Automated 789-8) message] The sy stem which generated this result transmitted reference range : 3.93 - 5.25 10*6/?L. The reference range was not used to interpret this result as normal/abnormal . HGB (test code = 9.6 g/dL 11.6-15 L 718-7) HCT (test code = 28.6 % 35.7-45.2 L 4544-3) MCV (test code = 93.2 fL 80.6-95.5 787-2) MCH (test code = 31.3 pg 25.9-32.8 785-6) MCHC (test code = 33.6 g/dL 31.6-35.1 786-4) RDW-SD (test code = 46.3 fL 39-49.9 01487-4) RDW-CV (test code = 13.7 % 12-15.5 788-0) PLT (test code = See_Comment [Automated 777-3) message] The sy stem which generated this result transmitted reference range : 166 - 358 10*3/ ?L. The reference r irvin was not used to interpret this result as normal/abnormal . MPV (test code = 11.7 fL 9.5-12.9 40496-5) NRBC/100 WBC (test See_Comment [Automat ed code = 1335832842) message] The system which generated this result transmitted reference range : 0.0 - 10.0 /100 WBCs. The refer ence range was not u sed to interpret th is result as normal/abnormal . NRBC x10^3 (test code <0.01 See_Comment [Auto mated = 0356708677) message] The s ystem which generated this result transmitted reference range : 10*3/?L. The reference range was not used to interpret this result as normal/abnormal . GRAN MAT (NEUT) % 60.1 % (test code = 770-8) IMM GRAN % (test code 0.60 % = 9045348743) LYMPH % (test code = 18.2 % 736-9) MONO % (test code = 18.2 % 5905-5) EOS % (test code = 2.0 % 713-8) BASO % (test code = 0.9 % 706-2) GRAN MAT x10^3(ANC) 2.12 10*3/uL 1.88-7.09 (test code = 7014988307) IMM GRAN x10^3 (test <0.03 0-0.06 code = 6904094725) LYMPH x10^3 (test code 0.64 10*3/uL 1.32-3.29 L = 731-0) MONO x10^3 (test code 0.64 10*3/uL 0.33-0.92 = 742-7) EOS x10^3 (test code = 0.07 10*3/uL 0.03-0.39 711-2) BASO x10^3 (test code 0.03 10*3/uL 0.01-0.07 = 704-7) Lab 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 Abnormal (test code = 38573-2) [facility] [id number] 16:40:00 Test Item Value Reference Range 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 Comments CSF CULTURE (test No organisms isolated code = 606-4) Gram stain (test code Occasional (Rare) = 664-3) Mononuclear cells [facility]. Sendout- Meningtis Panel [facility] [id number] 2020-10-21 13:57:00 Test Item Value Reference Range 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 Comments Miscellaneous Test (test See scanned report code = 2226249016) Performing Lab (test code [facility] = 6700613042) [facility] Sendout- Paraneoplastic panel [facility] [id number] 13:15:00 Test Item Value Reference Range 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 Comments Miscellaneous Test (test See scanned report code = 4771207576) Performing Lab (test code [facility] = 7795366822) [facility] Test Item Value Reference Range 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 Comments MAGNESIUM (test code = 7350415046) 1.6 mg/dL 1.7-2.4 L Lab 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 (test code = Abnormal 91970-1) [facility] METABOLIC PANEL (NA, K, CL, CO2, GLUCOSE, BUN, CREATININE, CA)2020-10-21 11:27:00 Test Item Value Reference Range 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 Comments NA (test code = 133 mmol/L 135-145 L 2112748604) K (test code = 3.5 mmol/L 3.5-5 8664860550) CL (test code = 103 mmol/L 98-108 5402396923) CO2 TOTAL (test code = 24 mmol/L 23-31 9903450472) AGAP (test code = 2-16 4433510228) BUN (test code = 10 mg/dL 7-23 2734569860) GLUCOSE (test code = 90 mg/dL 70-110 6113950858) CREATININE (test code = 0.39 mg/dL 0.5-1.04 L 9888791143) CALCIUM (test code = 7.8 mg/dL 8.6-10.6 L 8123178168) eGFR Calculation mL/min/1.73m2 (Non-) (test code = 9076028308) eGFR Calculation mL/min/1.73m2 () (test code = 1040235789) TANESHA (test code = TANESHA) Association of Glomerular Filtration Rate (GFR) and Staging of Kidney Disease* + --+ --+ ------+| GFR (mL/min/1.73 m2) ?| With Kidney Damage ?| ?Without Kidney Damage+ --------+ --------+ +| ?>90 ?| ?Stage one ?| ? Normal ?+ ---+ ---+ -------+| ?60-89 ?| ?Stage two ?| ? Decreased GFR ? + --+ --+ ------+| ?30-59 ?| ?Stage three ?| ? Stage three ? + --+ --+ ------+| ?15-29 ?| ?Stage four ? | ? Stage four ?+ ---+ ---+ -------+| ?<15 (or dialysis) ? ?| ?Stage five ? | ? Stage five ?+ ---+ ---+ -------+ *Each stage assumes the associated GFR level has been in effect for at least three months. ?Stages 1 to 5, with or without kidney disease, indicate chronic kidney disease. Notes: Determination of stages one and two (with eGFR >59mL/min/1.73 m2) requires estimation of kidney damage for at least three months as defined by structural or functional abnormalities of the kidney, manifested by either:Pathological abnormalities or Markers of kidney damage (including abnormalities in the composition of the blood or urine or abnormalities in imaging tests). Lab 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 Abnormal (test code = 51382-5) [facility] WITH [id number] 11:22:00 Test Item Value Reference Range 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 Comments WBC (test code = See_Comment L [Automated 4892-2) message] The sy stem which generated this result transmitted reference range : 4.30 - 11.10 10*3/?L. The reference range was not used to interpret this result as normal/abnormal . RBC (test code = See_Comment L [Automated 029-8) message] The sy stem which generated this result transmitted reference range : 3.93 - 5.25 10*6/?L. The reference range was not used to interpret this result as normal/abnormal . HGB (test code = 9.0 g/dL 11.6-15 L 718-7) HCT (test code = 27.5 % 35.7-45.2 L 4544-3) MCV (test code = 95.2 fL 80.6-95.5 787-2) MCH (test code = 31.1 pg 25.9-32.8 785-6) MCHC (test code = 32.7 g/dL 31.6-35.1 786-4) RDW-SD (test code = 46.9 fL 39-49.9 13566-4) RDW-CV (test code = 13.6 % 12-15.5 788-0) PLT (test code = See_Comment [Automated 777-3) message] The sy stem which generated this result transmitted reference range : 166 - 358 10*3/ ?L. The reference r irvin was not used to interpret this result as normal/abnormal . MPV (test code = 11.6 fL 9.5-12.9 69968-4) NRBC/100 WBC (test See_Comment [Automat ed code = 5832561321) message] The system which generated this result transmitted reference range : 0.0 - 10.0 /100 WBCs. The refer ence range was not u sed to interpret th is result as normal/abnormal . NRBC x10^3 (test code <0.01 See_Comment [Auto mated = 0274706723) message] The s ystem which generated this result transmitted reference range : 10*3/?L. The reference range was not used to interpret this result as normal/abnormal . GRAN MAT (NEUT) % 58.6 % (test code = 770-8) IMM GRAN % (test code 0.30 % = 4601909859) LYMPH % (test code = 21.8 % 736-9) MONO % (test code = 17.3 % 5905-5) EOS % (test code = 1.0 % 713-8) BASO % (test code = 1.0 % 706-2) GRAN MAT x10^3(ANC) 1.80 10*3/uL 1.88-7.09 L (test code = 3651447156) IMM GRAN x10^3 (test <0.03 0-0.06 code = 6502403412) LYMPH x10^3 (test code 0.67 10*3/uL 1.32-3.29 L = 731-0) MONO x10^3 (test code 0.53 10*3/uL 0.33-0.92 = 742-7) EOS x10^3 (test code = 0.03 10*3/uL 0.03-0.39 711-2) BASO x10^3 (test code 0.03 10*3/uL 0.01-0.07 = 704-7) TOXIC CHANGES (test Present A code = 803-7) Lab 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 Abnormal (test code = 65188-4) [facility] CenterNEUTROPHIL CYTOPLASMIC AB, [id number] 18:19:00 Test Item Value Reference Range 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 Comments ANCA TITER (test code <1:20 See_Comment The AN CA IFA is <1:20; = 99045-3) therefore, no f urther testing will be performed.INTER PRETIVE INFORMATION: Anti-Neutrophil Cyto Ab, IgG Neutrophil Cytoplasmic Antibodies (C-A NCA = granular cytopl asmic staining, P-ANC A = perinuclear sta ining) are found in the se rum of over 90 percent of p atients with certain necroti zing systemic vascul itides, and usually in less than 5 percent of quan ents with collagen vascul ar disease or arthritis.Pe rformed By: [facility], [place] [address]Edlsfcw ory Director: Sherry Murillo MD [[employer] [facility]] The system which ge nerated this result transmit carol reference range : <1:20. The reference range was not used to interpr et this result as anoop l/abnormal. [facility] CenterMisc. Sendout- Paraneoplastic CSF [facility] [id number] 17:36:00 Test Item Value Reference Range 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 Comments Miscellaneous Test (test See scanned report code = 9223869681) Performing Lab (test code ARUP = 0313037710) [facility] CenterHEPATIC FUNCTION PANEL (44986) (ALB,T.PRO,BILI T,BU/BC,ALT,AST,ALK PHOS)2020-10-20 15:53:00 Test Item Value Reference Range 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 Comments TOTAL BILI (test code = 0802457605) 0.2 mg/dL 0.1-1.1 BILI UNCON (test code = 0595023278) 0.2 mg/dL 0.1-1.1 BILI CONJ (test code = 9741417169) 0.0 mg/dL 0-0.3 T PROTEIN (test code = 3242029984) 7.4 g/dL 6.3-8.2 ALBUMIN (test code = 2724547693) 2.9 g/dL 3.5-5 L ALK PHOS (test code = 4315395635) 87 U/L 34-122 ALTv (test code = 1742-6) 38 U/L 5-35 H AST(SGOT) (test code = 6279830756) 64 U/L 13-40 H Lab 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 (test code = Abnormal 00322-9) [facility] WITH [id number] 11:27:00 Test Item Value Reference Range 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 Comments WBC (test code = See_Comment L [Automated 8590-2) message] The sy stem which generated this result transmitted reference range : 4.30 - 11.10 10*3/?L. The reference range was not used to interpret this result as normal/abnormal . RBC (test code = See_Comment L [Automated 139-8) message] The sy stem which generated this result transmitted reference range : 3.93 - 5.25 10*6/?L. The reference range was not used to interpret this result as normal/abnormal . HGB (test code = 9.4 g/dL 11.6-15 L 718-7) HCT (test code = 27.8 % 35.7-45.2 L 4544-3) MCV (test code = 93.0 fL 80.6-95.5 787-2) MCH (test code = 31.4 pg 25.9-32.8 785-6) MCHC (test code = 33.8 g/dL 31.6-35.1 786-4) RDW-SD (test code = 45.2 fL 39-49.9 08137-4) RDW-CV (test code = 13.5 % 12-15.5 788-0) PLT (test code = See_Comment [Automated 777-3) message] The sy stem which generated this result transmitted reference range : 166 - 358 10*3/ ?L. The reference r irvin was not used to interpret this result as normal/abnormal . MPV (test code = 11.3 fL 9.5-12.9 64973-4) NRBC/100 WBC (test See_Comment [Automat ed code = 9843446965) message] The system which generated this result transmitted reference range : 0.0 - 10.0 /100 WBCs. The refer ence range was not u sed to interpret th is result as normal/abnormal . NRBC x10^3 (test code <0.01 See_Comment [Auto mated = 3330628161) message] The s ystem which generated this result transmitted reference range : 10*3/?L. The reference range was not used to interpret this result as normal/abnormal . GRAN MAT (NEUT) % 62.2 % (test code = 770-8) IMM GRAN % (test code 0.30 % = 6560028890) LYMPH % (test code = 17.4 % 736-9) MONO % (test code = 17.7 % 5905-5) EOS % (test code = 1.7 % 713-8) BASO % (test code = 0.7 % 706-2) GRAN MAT x10^3(ANC) 1.79 10*3/uL 1.88-7.09 L (test code = 2198004317) IMM GRAN x10^3 (test <0.03 0-0.06 code = 9386169623) LYMPH x10^3 (test code 0.50 10*3/uL 1.32-3.29 L = 731-0) MONO x10^3 (test code 0.51 10*3/uL 0.33-0.92 = 742-7) EOS x10^3 (test code = 0.05 10*3/uL 0.03-0.39 711-2) BASO x10^3 (test code <0.03 0.01-0.07 = 704-7) BASO STIPPLING (test Present A code = 703-9) Lab 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 Abnormal (test code = 58162-8) [facility] CenterFAN [id number] 11:16:00 Test Item Value Reference Range 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 Comments TROPONIN I (test 0.003 ng/mL See_Comment [Automated code = 9768899806) message] The system which generated this result transmitted reference range : <=0.034. The reference range was not used to interpret this result as normal/abnormal . TANESHA (test code = Equal or Less than TANESHA) 0.034 ng/ml---Normal ?Note: Cardiac troponin begins to rise 3-4 hours after the onset of ischemia. Repeat in 4-6 hours if the sample was drawn within 3-4 hours of the onset of the symptom and found normal. Between 0.035 and 0.120 ng/mL--- Borderline. Questionable myocardial injury or necrosis ? ?Note: Serial measurement may be necessary to confirm or exclude the diagnosis of myocardial injury or necrosis; Clinical correlation (symptoms, EKGs, imaging studies, and others) required; Repeat in 4-6 hours if clinically indicated. ? Equal or Higher than 0.121 ng/mL---Abnormal. Myocardial Injury or Necrosis Likely ? Biotin has been reported to cause a negative bias, interpret results relative to patient's use of biotin. ? Lab 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 Normal (test code = 60584-6) [facility] CenterPROTHROMBIN TIME / [id number] 11:04:00 Test Item Value Reference Range 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 Comments PROTIME PATIENT (test See_Comment [Auto mated message] code = 5964-2) The system [employer] generated this result transmitted ref erence range: 10.1 - 1 2.6 Seconds. The re ference range was not u sed to interpret this result as normal/abnor mal. INR (test code = 6301-6) Nor mal INR <1.1; Warfarin Therap eutic range 2.0 to 3. 0 or 2.5 to 3.5, dep ending upon the indica tions. Lab 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 (test Normal code = 98942-0) [facility] CenterACTIVATED PARTIAL THRMPLAS [id number] 11:04:00 Test Item Value Reference Range 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 Comments APTT Patient (test code = See_Comment [ Automated message] 3173-2) The system [employer] generated this result transmitted ref erence range: 26 - 36 Seconds. The re ference range was not u sed to interpret this result as normal/abnor mal. Lab 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 (test Normal code = 92495-7) [facility] CenterMAGNESIUM2021-01-14 09:53:00 Test Item Value Reference Range 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 Comments MAGNESIUM (test code = 7808215472) 1.8 mg/dL 1.7-2.4 Lab 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 (test code = Normal 71509-1) [facility] METABOLIC PANEL (NA, K, CL, CO2, GLUCOSE, BUN, CREATININE, CA)2020-10-20 09:53:00 Test Item Value Reference Range 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 Comments NA (test code = 134 mmol/L 135-145 L 3895039835) K (test code = 4.3 mmol/L 3.5-5 5799965199) CL (test code = 101 mmol/L 98-108 9837535411) CO2 TOTAL (test code = 32 mmol/L 23-31 H 7674800505) AGAP (test code = 2-16 L 4707540526) BUN (test code = 14 mg/dL 7-23 4030297250) GLUCOSE (test code = 109 mg/dL 70-110 7819707779) CREATININE (test code = 0.47 mg/dL 0.5-1.04 L 4566366497) CALCIUM (test code = 8.0 mg/dL 8.6-10.6 L 3075534075) eGFR Calculation mL/min/1.73m2 (Non-) (test code = 3651737927) eGFR Calculation mL/min/1.73m2 () (test code = 3104146165) TANESHA (test code = TANESHA) Association of Glomerular Filtration Rate (GFR) and Staging of Kidney Disease* + --+ --+ ------+| GFR (mL/min/1.73 m2) ?| With Kidney Damage ?| ?Without Kidney Damage+ --------+ --------+ +| ?>90 ?| ?Stage one ?| ? Normal ?+ ---+ ---+ -------+| ?60-89 ?| ?Stage two ?| ? Decreased GFR ? + --+ --+ ------+| ?30-59 ?| ?Stage three ?| ? Stage three ? + --+ --+ ------+| ?15-29 ?| ?Stage four ? | ? Stage four ?+ ---+ ---+ -------+| ?<15 (or dialysis) ? ?| ?Stage five ? | ? Stage five ?+ ---+ ---+ -------+ *Each stage assumes the associated GFR level has been in effect for at least three months. ?Stages 1 to 5, with or without kidney disease, indicate chronic kidney disease. Notes: Determination of stages one and two (with eGFR >59mL/min/1.73 m2) requires estimation of kidney damage for at least three months as defined by structural or functional abnormalities of the kidney, manifested by either:Pathological abnormalities or Markers of kidney damage (including abnormalities in the composition of the blood or urine or abnormalities in imaging tests). Lab 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 Abnormal (test code = 88709-5) [facility] CenterN-methyl-D-Aspartate Receptor Ab, CSF 2020-10-19 21:52:00 Test Item Value Reference Range 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 Comments B-uazybp-M-Aspartate < 1:1 See_Comment Antibo dies to NMDA were Receptor Ab, CSF not detecte d, no additional (test code = 39146-4) testin g to follow.INTERPRE TIVE INFORMATION: B-dfyell-N-Aspa rtate ?Receptor Ab, CSF Anti-NM DA receptor IgG antibody is found in a subset of patie nts with autoimmune limb ic encephalitis an d may occur with or without associated tumor. Decreasi ng antibody levels may be a ssociated with therapeuti c response; therefore, clin ical correlation mus t be strongly consid ered. A negative test r esult does not rule out a diagnosis of autoimmune limb ic encephalitis. Test developed and characteristics determined by [facility]. See Compliance Stat ement B: [email or web address] erformed By: [facility] [address], [place] [address] Director: Sherry Murillo MD [[employer] [facility]] The system which ge nerated this result transmit carol reference range : <1:1. The reference range was not used to interpr et this result as anoop l/abnormal. [facility] CenterXR [id number] 16:55:02 Dobbhoff tube projects over the gastric body. Preliminary Report Dictated by Resident: Laureano Salazar I reviewed this study and agree with minor modifications (no call needed tothe referring physician). Rick Herrera MD., have reviewed this study and agree with theabove report.EXAM: XR KUB HISTORY: 65 years-old Female with DHT placement . COMPARISON: KUB 10/17/2020. TECHNIQUE: Supine AP viewof the abdomen and pelvis. FINDINGS: The Dobbhoff tube projects over the gastric body. The visualized lung crews are clear. The visualized cardiac silhouette isunremarkable. The bowel gas pattern is nonobstructive. The visualized bones and soft tissues are within normal limits. [facility], Radiant Results Inft User - 10/19/2020 10:56 AM CSTEXAM: XR KUBHISTORY: 65 years-old Female with DHT placement .COMPARISON: KUB 10/17/2020.TECHNIQUE: Supine AP view of the abdomen and pelvis.FINDINGS:The Dobbhoff tube projects over the gastric body.The visualized lung crews are clear. The visualized cardiac silhouette isunremarkable.The bowel gas pattern is nonobstructive.The visualized bones and soft tissues are within normal limits.IMPRESSIONDobbhoff tube projects over the gastric body.Preliminary Report Dictated by Resident: Laureano Rollins reviewed this study and agree with minor modifications (no call needed tothe referring physician).Rick Herrera MD., have reviewed this study and agree with theabove report.[facility] CenterCARCINOEMBRYONIC ANTIGEN 2020-10-19 15:44:00 Test Item Value Reference Range 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 Comments CEA (test code = 0.5 ng/mL 0-10 2175921212) TANESHA (test code = TANESHA) CEA Ranges: Non-Smokers ?0-5.0 ng/mLSmokers ? ? ?0-10.0 ng/mL Lab 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 (test Normal code = 31016-4) [facility] CenterMR ABDOMEN W WO CONTRAST [id number] 13:26:12 Pancreatic parenchyma is atrophic and the duct is prominent with noevidence of solid lesions. 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 Preliminary Report Dictated by Resident: Valeriy Rock I, Liza ?MD. Chely, have reviewed this study and agree with theabove report.EXAM: MRI ABDOMEN WITH AND WITHOUT CONTRAST HISTORY: 65-year-old female; IPMN on CT abdomen. COMPARISON: CT abdomen pelvis 10/17/2020. TECHNIQUE: Multiplanar, multisequence MR imaging of the abdomen wasperformed with and without contrast. (10 cc of ProHance) FINDINGS: LOWER THORAX: Small bilateral pleural effusions. LIVER: Normal parenchymal signal characteristics. No focal hepatic lesions. No biliary ductal dilation. The liver measures 17.2 cm in craniocaudaldimension. BILIARY TREE: The common bile duct measures 7 mm in diameter at the distalportion. No filling defects. SPLEEN: No splenomegaly. PANCREAS: There are multiple T2 hyperintense, T1 hypointense structuresmeasuring up to 6 mm in the pancreatic head. No contrast enhancement isdemonstrated. No definite communication with the main pancreatic duct isdemonstrated with all cystic structures. ADRENAL GLANDS: Noadrenal nodules. KIDNEYS: No hydronephrosis or masses. PERITONEUM AND RETROPERITONEUM: No upper abdominal ascites. LYMPH NODES: No lymphadenopathy. VESSELS: Unremarkable. BONES AND SOFT TISSUES: Unremarkable. [facility], Radiant Results Inft User - 10/19/2020 7:27 AM CSTEXAM: MRI ABDOMEN WITH AND WITHOUT CONTRASTHISTORY: 65-year-old female; IPMN on CT abdomen.COMPARISON: CT abdomen pelvis 10/17/2020.TECHNIQUE: Multiplanar, multisequence MR imaging of the abdomen wasperformed with and without contrast. (10cc of ProHance)FINDINGS:LOWER THORAX: Small bilateral pleural effusions.LIVER: Normal parenchymal signal characteristics. No focal hepatic lesions. No biliary ductal dilation. The liver measures 17.2 cm in craniocaudaldimension.BILIARY TREE: The common bile duct measures 7 mm in diameter at the distalportion. No filling defects.SPLEEN: No splenomegaly.PANCREAS: There are multiple T2 hyperintense, T1 hypointense structuresmeasuring up to 6 mm in the pancreatic head. No contrast enhancement isdemonstrated. No definite communication with the main pancreatic duct isdemonstrated with all cystic structures.ADRENAL GLANDS: No adrenal nodules.KIDNEYS: No hydronephrosis or masses.PERITONEUM AND RETROPERITONEUM: No upper abdominal ascites.LYMPH NODES: No lymphadenopathy.VESSELS: Unremarkable.BONES AND SOFTTISSUES: Unremarkable.IMPRESSIONPancreatic parenchyma is atrophic and the duct is prominent with noevidence of solid lesions. Multiple small, nonenhancing cystic structuresare seen measuring up to 6 mmlikely sidebranch IPMNs.Preliminary Report Dictated by Resident: Liza Jewell MD., have reviewed this study and agree with theabove report. [facility] CenterMisc. Sendout- Men/Encep [place] [id number] 2020-10-19 13:26:00 Test Item Value Reference Range 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 Comments Miscellaneous Test (test See scanned report code = 1443813843) Performing Lab (test code ARUP = 8136897147) [facility] CenterHBV BY REAL-TIME [id number] 12:40:00 Test Item Value Reference Range 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 Comments HBV Quantitative Not Detected Not Detected 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 (test code = 40201-6) TANESHA (test code = TANESHA) The test uses [employer] Real Time HBV assay. It is FDA approved for plasma and serum samples to measure HBV DNA for use as an aid in the management of HBV-infected patients undergoing antiviral therapy. The FDA approved result ranges of the test are: ? Not Detected <10 ?IU/mL, ?<1.00 ?Log IU/mL 10 - 10^9 ? ? ?IU/mL, ? 1.00-9.00 ? ? Log IU/mL >10^9 ?IU/mL, ?>9.00 ?Log IU/mL [facility] CenterBASIC METABOLIC PANEL (NA, K, CL, CO2, GLUCOSE, BUN, CREATININE, CA)2020-10-19 09:55:00 Test Item Value Reference Range 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 Comments NA (test code = 131 mmol/L 135-145 L 0905472187) K (test code = 3.6 mmol/L 3.5-5 9870417707) CL (test code = 99 mmol/L 98-108 7156111538) CO2 TOTAL (test code = 28 mmol/L 23-31 5864734508) AGAP (test code = 2-16 3558602712) BUN (test code = 9 mg/dL 7-23 0718864181) GLUCOSE (test code = 83 mg/dL 70-110 2895812131) CREATININE (test code = 0.78 mg/dL 0.5-1.04 4607658516) CALCIUM (test code = 8.3 mg/dL 8.6-10.6 L 5566592780) eGFR Calculation mL/min/1.73m2 (Non-) (test code = 7926959235) eGFR Calculation mL/min/1.73m2 () (test code = 4680866050) TANESHA (test code = TANESHA) Association of Glomerular Filtration Rate (GFR) and Staging of Kidney Disease* + --+ --+ ------+| GFR (mL/min/1.73 m2) ?| With Kidney Damage ?| ?Without Kidney Damage+ --------+ --------+ +| ?>90 ?| ?Stage one ?| ? Normal ?+ ---+ ---+ -------+| ?60-89 ?| ?Stage two ?| ? Decreased GFR ? + --+ --+ ------+| ?30-59 ?| ?Stage three ?| ? Stage three ? + --+ --+ ------+| ?15-29 ?| ?Stage four ? | ? Stage four ?+ ---+ ---+ -------+| ?<15 (or dialysis) ? ?| ?Stage five ? | ? Stage five ?+ ---+ ---+ -------+ *Each stage assumes the associated GFR level has been in effect for at least three months. ?Stages 1 to 5, with or without kidney disease, indicate chronic kidney disease. Notes: Determination of stages one and two (with eGFR >59mL/min/1.73 m2) requires estimation of kidney damage for at least three months as defined by structural or functional abnormalities of the kidney, manifested by either:Pathological abnormalities or Markers of kidney damage (including abnormalities in the composition of the blood or urine or abnormalities in imaging tests). Lab 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 Abnormal (test code = 57207-5) [facility] CenterMAGNESIUM2021-01-13 09:55:00 Test Item Value Reference Range 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 Comments MAGNESIUM (test code = 3436484276) 1.6 mg/dL 1.7-2.4 L Lab 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 (test code = Abnormal 87073-7) [facility] METABOLIC PANEL (NA, K, CL, CO2, GLUCOSE, BUN, CREATININE, CA)2020-10-19 04:33:00 Test Item Value Reference Range 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 Comments NA (test code = 132 mmol/L 135-145 L 1728127036) K (test code = 4.2 mmol/L 3.5-5 Slight 5216169327) hemolysis CL (test code = 103 mmol/L 98-108 0886128109) CO2 TOTAL (test code 22 mmol/L 23-31 L = 6718534413) AGAP (test code = 2-16 5135205142) BUN (test code = 8 mg/dL 7-23 Slight 7430592528) hemolysis GLUCOSE (test code = 79 mg/dL 70-110 1038582540) CREATININE (test code 0.39 mg/dL 0.5-1.04 L = 7924680607) CALCIUM (test code = 8.2 mg/dL 8.6-10.6 L 0272446115) eGFR Calculation mL/min/1.73m2 (Non-) (test code = 0217964045) eGFR Calculation mL/min/1.73m2 () (test code = 3826052333) TANESHA (test code = TANESHA) Association of Glomerular Filtration Rate (GFR) and Staging of Kidney Disease* + -----+ --------+ +| GFR (mL/min/1.73 m2) ?| With Kidney Damage ?| ?Without Kidney Damage+ +------- +---- --+| ?>90 ?| ?Stage one ?| ? Normal ?+ ------+ ---------+--------- +| ?60-89 ?| ?Stage two ?| ? Decreased GFR ? + -----+ --------+ +| ?30-59 ?| ?Stage three ?| ? Stage three ? + -----+ --------+ +| ?15-29 ?| ?Stage four ? | ? Stage four ?+ ------+ ---------+--------- +| ?<15 (or dialysis) ? ?| ?Stage five ? | ? Stage five ?+ ------+ ---------+--------- + *Each stage assumes the associated GFR level has been in effect for at least three months. ?Stages 1 to 5, with or without kidney disease, indicate chronic kidney disease. Notes: Determination of stages one and two (with eGFR >59mL/min/1.73 m2) requires estimation of kidney damage for at least three months as defined by structural or functional abnormalities of the kidney, manifested by either:Pathological abnormalities or Markers of kidney damage (including abnormalities in the composition of the blood or urine or abnormalities in imaging tests). Lab 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 Abnormal (test code = 14205-7) [facility] CenterMR BRAIN W WO [id number] 23:03:05 Impression: No acute abnormality diffusion-weighted imaging.Sequela of small vessel disease as described above.Increased signal in the sulci over the convexities bilaterally on FLAIRimaging related to anesthesia or meningitis. ?Recommend correlation withCSF analysis.Retained/high protein content right petrous apex secretions with minimalinflammatory mucosal thickening. Preliminary Report Dictated by Resident: Ashley Walker MD., have reviewed this study and agree with theabove report.MR BRAIN W WO CONTRAST COMPARISON: MRI head dated 10/16/[address] head dated 10/13/2020. HISTORY: Altered level of consciousness (LOC), unexplained TECHNIQUE: Multi weighted multiplanar MRI of the head was done on 3T MRI. 9mL of ProHance was given. FINDINGS: The ventricles and cerebral sulciare normal in caliber and configurationfor the patient's age.Flair imaging shows increased signal inthe sulci over the convexities,which may be related to CSF abnormality or effects of anesthesia.No midline shift, hydrocephalus or pathological extra-axial fluidcollection.The basal cisterns are unremarkable.No restricted diffusion present suggest acute infarction.Few scattered hyperintense T2/FLAIR foci seen in the supratentorial whitematter and in the bay nonspecific and most probably representingsequelaof small vessel disease.Normal pattern of intraparenchymal enhancement.The T2 flow voids for the major intracranial vessels are unremarkable.No abnormal fluid signal is present in the mastoid air cells or paranasalsinuses.Few foci of susceptibility signal loss seen at in the right insular regionand the subarachnoid space anterior to the midbrain. Mild enhancement identified in the right petrous apex surrounding [id number] signal centrally.Two foci of susceptibility signal loss seen at thevermis and leftcerebellar hemisphere representing foci of calcification. (Seen on prior CTscan). [facility], Radiant Results Inft User - 10/18/2020 5:12 PM CSTMR BRAIN W WO CONTRASTCOMPARISON: MRI head dated 10/16/[address] head dated 10/13/2020.HISTORY: Altered level of consciousness (LOC), unexplained TECHNIQUE: Multi weighted multiplanar MRI of the head was done on 3T MRI. 9mL of ProHance was given.FINDI NGS:The ventricles and cerebral sulci are normal in caliber and configurationfor the patient's age.Flair imaging shows increased signal in the sulci over the convexities,which may be related to CSF abnormality or effects of anesthesia.No midline shift, hydrocephalus or pathological extra-axial fluidcollection.The basal cisterns are unremarkable.No restricted diffusion present suggest acute infarction.Few scattered hyperintense T2/FLAIR foci seen in the supratentorial whitematter and in the bay nonspecific and most probably representing sequelaof small vessel disease.Normal pattern of intraparenchymal enhancement.The T2 flow voids for the major intracranial vessels are unremarkable.No abnormal fluid signal is present in the mastoid air cells or paranasalsinuses.Few foci of susceptibility signal loss seen at in the right insular regionand the subarachnoid space anterior to the midbrain. Mild enhancement identified in the right petrous apex surrounding F3bzimelenpytl signal centrally.Two foci of s usceptibility signal loss seen at the vermis and leftcerebellar hemisphere representing foci of calcification. (Seen on prior CTscan).IMPRESSIONImpression:No acute abnormality diffusion-weighted imaging .Sequela of small vessel disease as described above.Increased signal in the sulci over the convexities bilaterally on FLAIRimaging related to anesthesia or meningitis. Recommend correlation withCSF analysis.Retained/high protein content right petrous apex secretions with minimalinflammatory mucosal th ickening.Preliminary Report Dictated by Resident: Ashley Culver MD., have reviewed this study and agree with theabove report. [facility] [facility] ANT[facility] [id number] 18:56:00 Test Item Value Reference Range 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 Comments CARLOS ENRIQUE (test code = Negative Negative [id number]) TANESHA (test code = TANESHA) Negative - No Anti-Nuclear Antibodies detected by IFA.Positive - CARLOS ENRIQUE IFA screen performed with a 1:80 dilution in adults and a 1:40 dilution in pediatrics. Any CARLOS ENRIQUE "Positive" will have titer performed and reported separately.Negative - No Anti-Nuclear Antibodies detected by IFA.Positive - CARLOS ENRIQUE IFA screen performed with a 1:80 dilution in adults and a 1:40 dilution in pediatrics. Any CARLOS ENRIQUE "Positive" will have titer performed and reported separately. Lab 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 (test Normal code = 04792-5) [facility] [id number] 15:27:46FINDINGS/IMPRESSION: The Dobbhoff tube terminates in the mid esophagus.The visualized lungs are clear . The cardiac silhouette is normal.The visualized bowel gas pattern is unremarkable.No radiopaque stone is seen. ?No acute osseous abnormality. Findings of Dobbhoff tube were communicated to Dr. Lindsey at 3:43 AM 10/18/2019. Preliminary Report Dictated by Resident: Liza Conn MD., have reviewed this study and agree with theabterence report.EXAM: XR KUB HISTORY: confirm DHT COMPARISON: KUB 10/14/2020. [facility], Radiant Results Inft User - 10/18/2020 9:28 AM CSTEXAM: XR KUBHISTORY: confirm DHT COMPARISON: KUB 10/14/2020.IMPRESSIONFINDINGS/IMPRESSION:The Dobbhoff tube terminates in the mid esophagus.The visualized lungs are clear. The cardiac silhouette is normal.The visualized bowel gas pattern is unremarkable.No radiopaque stone is seen. No acute osseous abnormality. Findings of Dobbhoff tube were communicated to Dr. Lindsey at 3:43 AM 10/18/2019.Preliminary Report Dictatedby Resident: Liza Herrera MD., have reviewed this study and agree with theabove report.[facility] BASIC METABOLIC PANEL (NA, K, CL, CO2, GLUCOSE, BUN, CREATININE, CA)2020-10-18 11:41:00 Test Item Value Reference Range 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 Comments NA (test code = 130 mmol/L 135-145 L 8579303449) K (test code = 2.9 mmol/L 3.5-5 LL 1583580323) CL (test code = 97 mmol/L 98-108 L 4506552737) CO2 TOTAL (test code = 31 mmol/L 23-31 2639973367) AGAP (test code = 2-16 6484952506) BUN (test code = 7 mg/dL 7-23 3059940511) GLUCOSE (test code = 90 mg/dL 70-110 5421740882) CREATININE (test code = 0.72 mg/dL 0.5-1.04 8307729401) CALCIUM (test code = 8.2 mg/dL 8.6-10.6 L 9434263111) eGFR Calculation mL/min/1.73m2 (Non-) (test code = 6277268840) eGFR Calculation mL/min/1.73m2 () (test code = 2007779251) TANESHA (test code = TANESHA) Association of Glomerular Filtration Rate (GFR) and Staging of Kidney Disease* + --+ --+ ------+| GFR (mL/min/1.73 m2) ?| With Kidney Damage ?| ?Without Kidney Damage+ --------+ --------+ +| ?>90 ?| ?Stage one ?| ? Normal ?+ ---+ ---+ -------+| ?60-89 ?| ?Stage two ?| ? Decreased GFR ? + --+ --+ ------+| ?30-59 ?| ?Stage three ?| ? Stage three ? + --+ --+ ------+| ?15-29 ?| ?Stage four ? | ? Stage four ?+ ---+ ---+ -------+| ?<15 (or dialysis) ? ?| ?Stage five ? | ? Stage five ?+ ---+ ---+ -------+ *Each stage assumes the associated GFR level has been in effect for at least three months. ?Stages 1 to 5, with or without kidney disease, indicate chronic kidney disease. Notes: Determination of stages one and two (with eGFR >59mL/min/1.73 m2) requires estimation of kidney damage for at least three months as defined by structural or functional abnormalities of the kidney, manifested by either:Pathological abnormalities or Markers of kidney damage (including abnormalities in the composition of the blood or urine or abnormalities in imaging tests). Lab 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 Abnormal (test code = 01765-8) [facility]28[facility] Test Item Value Reference Range 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 Comments MAGNESIUM (test code = 0975660753) 1.7 mg/dL 1.7-2.4 Lab 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 (test code = Normal 96066-6) [facility] WITH [id number] 11:04:00 Test Item Value Reference Range 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 Comments WBC (test code = See_Comment L [Automated 6690-2) message] The sy stem which generated this result transmitted reference range : 4.30 - 11.10 10*3/?L. The reference range was not used to interpret this result as normal/abnormal . RBC (test code = See_Comment L [Automated 789-8) message] The sy stem which generated this result transmitted reference range : 3.93 - 5.25 10*6/?L. The reference range was not used to interpret this result as normal/abnormal . HGB (test code = 9.7 g/dL 11.6-15 L 718-7) HCT (test code = 28.2 % 35.7-45.2 L 4544-3) MCV (test code = 92.2 fL 80.6-95.5 787-2) MCH (test code = 31.7 pg 25.9-32.8 785-6) MCHC (test code = 34.4 g/dL 31.6-35.1 786-4) RDW-SD (test code = 44.5 fL 39-49.9 24683-1) RDW-CV (test code = 13.2 % 12-15.5 788-0) PLT (test code = See_Comment [Automated 777-3) message] The sy stem which generated this result transmitted reference range : 166 - 358 10*3/ ?L. The reference r irvin was not used to interpret this result as normal/abnormal . MPV (test code = 11.8 fL 9.5-12.9 26204-2) NRBC/100 WBC (test See_Comment [Automat ed code = 4148521489) message] The system which generated this result transmitted reference range : 0.0 - 10.0 /100 WBCs. The refer ence range was not u sed to interpret th is result as normal/abnormal . NRBC x10^3 (test code <0.01 See_Comment [Auto mated = 5759589409) message] The s ystem which generated this result transmitted reference range : 10*3/?L. The reference range was not used to interpret this result as normal/abnormal . GRAN MAT (NEUT) % 68.2 % (test code = 770-8) IMM GRAN % (test code 0.60 % = 9364938193) LYMPH % (test code = 13.9 % 736-9) MONO % (test code = 14.2 % 5905-5) EOS % (test code = 2.5 % 713-8) BASO % (test code = 0.6 % 706-2) GRAN MAT x10^3(ANC) 2.16 10*3/uL 1.88-7.09 (test code = 6318948028) IMM GRAN x10^3 (test <0.03 0-0.06 code = 7174465654) LYMPH x10^3 (test code 0.44 10*3/uL 1.32-3.29 L = 731-0) MONO x10^3 (test code 0.45 10*3/uL 0.33-0.92 = 742-7) EOS x10^3 (test code = 0.08 10*3/uL 0.03-0.39 711-2) BASO x10^3 (test code <0.03 0.01-0.07 = 704-7) Lab 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 Abnormal (test code = 42114-7) [facility]URINALYSIS[facility] 23:14:00 Test Item Value Reference Range 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 Comments APPEARANCE (test code = Hazy Clear A 8118453633) COLOR (test code = Yellow Yellow 9783030453) PH (test code = 4.8-8.0 5034222991) SP GRAVITY (test code = 1.003-1.030 2841692383) GLU U QUAL (test code = Normal Normal 2419572317) BLOOD (test code = Negative Negative 7773656655) KETONES (test code = Negative Negative 8374145791) PROTEIN (test code = Negative Negative 2887-8) UROBILIN (test code = Normal Normal 2888147285) BILIRUBIN (test code = Negative Negative 9302253937) NITRITE (test code = Negative Negative 5489849440) LEUK EDINSON (test code = Negative Negative 3469745836) RBC/HPF (test code = See_Comment [Autom ated message] 0810287927) The system [employer] generated this result transmitted ref erence range: 0 - 3 HP F. The reference range was not used to int erpret this result as normal/abnormal . WBC/HPF (test code = See_Comment [Autom ated message] 4829425787) The system [employer] generated this result transmitted ref erence range: 0 - 5 HP F. The reference range was not used to int erpret this result as normal/abnormal . BACTERIA (test code = Few Negative A 5563561849) AMORPHOUS (test code = Rare Rare HPF 7532895651) Lab 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 (test Abnormal code = 78706-5) [facility] CenterC[facility] ANTIGEN-GI (CA 19-9)2020-10-17 21:15:00 Test Item Value Reference Range 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 Comments CA 19-9 (test code = 18.9 U/mL 0-35 8277061445) ATNESHA (test code = TANESHA) Biotin has been reported to cause a negative bias, interpret results relative to patient's use of biotin. Lab 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 (test Normal code = 72684-0) [facility] [id number] 21:15:00 Test Item Value Reference Range 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 Comments CA-125 (test code = 3864155342) 27.0 U/mL 0-35 Lab 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 (test code = Normal 28028-6) [facility] CenterCT THORAX W [id number] 21:02:02 1.. Findings there may be seen with nonspecific bronchitis/bronchialhyperreactivity. Small bilateral layering pleural effusions. Otherwise nosigns of acute cardiopulmonary process. 2. Borderline caliber of the left ventricle with normal heart size. Smallpericardial effusion. Moderate atherosclerotic disease of the aorta andcoronary vessels. 3. The tip of the weighted feeding tube is located in themidesophagus,findings were relayed to charge nurse Jenny Villafuerte at 12:45 PM viatelephone. 4. Chronicappearing moderate compression deformities at T8 and L1. Diffuseosteopenia. Preliminary Report Dictated by Resident: Nuris Sr MD., have reviewed this study and agree with theabove report.PROCEDURE: CT CHEST WITH CONTRAST - CHEST PROTOCOL CLINICAL INDICATION: Altered mental status Comparison: ?Correlation with chest radiograph from 10/14/2020 and same-dayabdominal CT TECHNIQUE: Volumetric images of the chest were acquired (from lung apicesto bases) following administration of intravenous contrast. Images werereconstructed at 1.25 mm slice thickness. MIP axial images, coronal andsagittal reformats were also submitted for interpretation Axial MIPs andcoronal and sagittal MPR images were generated and reviewed.. FINDINGS: Devices: The tip of the weighted feeding tube is located in themidesophagus LUNGS AND PLEURA: The lung volumes are normal. Mild diffuse bronchial wallthickening with occasional foci of peripheral airway impaction. No focalopacities or suspicious nodules. Small bilateral layering pleural effusions with overlying relaxationatelectasis. Rare small aircysts noted, nonspecific. LYMPH NODES: Scattered small lymph nodes in both sides of the mediastinumand hilar regions. No evidence of intrathoracic lymphadenopathy. MEDIASTINUM AND LOWER NECK: No central airway lesions are detected.Fullness at the GE junction may represent a small sliding hiatal hernia.Otherwise normal CT appearance of the esophagus. The included thyroid glandappears normal. HEART ANDGREAT VESSELS: Borderline dilatation of the left ventricle withnormal heart size. Reflux of contrastinto the IVC and hepatic veins islikely due to the injection rate. A small pericardial effusion is seen.Normal RV to LV lumen ratio. The thoracic aorta is normal in caliber.Moderate atherosclerotic calcifications of the coronary vessels. Thepulmonary trunk is normal in caliber. VISUALIZED UPPER ABDOMEN: No acute findings are seen in the upper abdomen.Suspected subcentimeter calcified splenic artery aneurysm on 301:226. OSSEOUS STRUCTURES AND SOFT TISSUES: Age-indeterminate mild to moderatecompression deformities at T8 and L1. Remote right lower rib fracturedeformities. Mild pectus excavatum. Diffuse osteopenia. No suspicious focalosseous lesions. The patient is emaciated [facility], Radiant Results InftUser - 10/17/2020 3:03 PM CSTPROCEDURE: CT CHEST WITH CONTRAST - CHEST PROTOCOLCLINICAL INDICATION:Altered mental statusComparison: Correlation with chest radiograph from 10/14/2020 and same-dayabdominal CTTECHNIQUE: Volumetric images of the chest were acquired (from lung apicesto bases) following administration of intravenous contrast. Images werereconstructed at 1.25 mm slice thickness. MIP axial images, coronal andsagittal reformats were also submitted for interpretation Axial MIPs andcoronal and sagittal MPR images were generated and reviewed..FINDINGS:Devices: The tip of the weighted feeding tube is located in themidesophagusLUNGS AND PLEURA: The lung volumes are normal. Mild diffuse bronchial wallthickening with occasional foci of peripheral airway impaction. No focalopacities or suspicious nodules.Small bilateral layering pleural effusions with overlying relaxationatelectasis. Rare smallair cysts noted, nonspecific.LYMPH NODES: Scattered small lymph nodes in both sides of the mediastinumand hilar regions. No evidence of intrathoracic lymphadenopathy.MEDIASTINUM AND LOWER NECK: No central airway lesions are detected.Fullness at the GE junction may represent a small sliding hiatal herni a.Otherwise normal CT appearance of the esophagus. The included thyroid glandappears normal.HEART AND GREAT VESSELS: Borderline dilatation of the left ventricle withnormal heart size. Reflux of contrast into the IVC and hepatic veins islikely due to the injection rate. A small pericardial effusion is s een.Normal RV to LV lumen ratio. The thoracic aorta is normal in caliber.Moderate atherosclerotic calcifications of the coronary vessels. Thepulmonary trunk is normal in caliber.VISUALIZED UPPER ABDOMEN: No acute findings are seen in the upper abdomen.Suspected subcentimeter calcified splenic artery aneurysm on 301:226.OSSEOUS STRUCTURES AND SOFT TISSUES: Age- indeterminate mild to moderatecompressiondeformities at T8 and L1. Remote right lower rib fracturedeformities. Mild pectus excavatum. Diffuseosteopenia. No suspicious focalosseous lesions. The patient is emaciatedIMPRESSION1.. Findings theremay be seen with nonspecific bronchitis/bronchialhyperreactivity. Small bilateral layering pleural effusions. Otherwise nosigns of acute cardiopulmonary process. 2. Borderline caliber of the left ventricle with normal heart size. Smallpericardial effusion. Moderate atherosclerotic disease of the aorta andcoronary vessels.3. The tip of the weighted feeding tube is located in the midesophagus,findings were relayed to charge nurse Jenny Villafuerte at 12:45 PM viatelephone.4. Chronic appearing moderate compression deformities at T8 and L1. Diffuseosteopenia.Preliminary Report Dictated by Resident: Nuris Russell MD., have reviewed this study and agree with theabove report.[facility]-REACTIVE [id number] 21:00:00 Test Item Value Reference Range 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 Comments CRP (test code = 2952111971) 0.4 mg/dL <0.8 Lab 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 (test code = Normal 06015-5) [facility] CenterSEDIMENTATION [id number] 20:11:00 Test Item Value Reference Range 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 Comments ESR (test code = See_Comment [Automated message] 7077263166) The system [employer] generated this result transmitted ref erence range: 0 - 20 m m/HR. The reference r irvin was not used to interpret this result as normal/abnor mal. Lab 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 (test Normal code = 95749-6) [facility] METABOLIC PANEL (NA, K, CL, CO2, GLUCOSE, BUN, CREATININE, CA)2020-10-17 20:04:00 Test Item Value Reference Range 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 Comments NA (test code = 132 mmol/L 135-145 L 7037724507) K (test code = 3.5 mmol/L 3.5-5 5914637896) CL (test code = 99 mmol/L 98-108 4067042277) CO2 TOTAL (test code = 31 mmol/L 23-31 2681319933) AGAP (test code = 2-16 0813531502) BUN (test code = 8 mg/dL 7-23 6349026480) GLUCOSE (test code = 85 mg/dL 70-110 3525854313) CREATININE (test code = 0.33 mg/dL 0.5-1.04 L 6416025744) CALCIUM (test code = 8.7 mg/dL 8.6-10.6 5438106214) eGFR Calculation mL/min/1.73m2 (Non-) (test code = 9249679006) eGFR Calculation mL/min/1.73m2 () (test code = 4830481746) TANESHA (test code = TANESHA) Association of Glomerular Filtration Rate (GFR) and Staging of Kidney Disease* + --+ --+ ------+| GFR (mL/min/1.73 m2) ?| With Kidney Damage ?| ?Without Kidney Damage+ --------+ --------+ +| ?>90 ?| ?Stage one ?| ? Normal ?+ ---+ ---+ -------+| ?60-89 ?| ?Stage two ?| ? Decreased GFR ? + --+ --+ ------+| ?30-59 ?| ?Stage three ?| ? Stage three ? + --+ --+ ------+| ?15-29 ?| ?Stage four ? | ? Stage four ?+ ---+ ---+ -------+| ?<15 (or dialysis) ? ?| ?Stage five ? | ? Stage five ?+ ---+ ---+ -------+ *Each stage assumes the associated GFR level has been in effect for at least three months. ?Stages 1 to 5, with or without kidney disease, indicate chronic kidney disease. Notes: Determination of stages one and two (with eGFR >59mL/min/1.73 m2) requires estimation of kidney damage for at least three months as defined by structural or functional abnormalities of the kidney, manifested by either:Pathological abnormalities or Markers of kidney damage (including abnormalities in the composition of the blood or urine or abnormalities in imaging tests). Lab 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 Abnormal (test code = 69744-8) [facility] CenterLactic Acid Whole [id number] 19:42:00 Test Item Value Reference Range 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 Comments LACTIC ACID (test code = 0.79 mmol/L QUE S 1105986768) [facility] CenterRHEUMATOID [id number] 18:54:00 Test Item Value Reference Range 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 Comments RF (test code = <20 See_Comment [Automated message] 3436974494) The system [employer] generated this result transmitted ref erence range: <20 IU/m L. The reference range was not used to int erpret this result as normal/abnormal . Lab 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 (test Normal code = 28841-7) [facility] CenterCT ABDOMEN PELVIS W [id number] 17:28:35 1. ?Mildly dilated common duct, measuring up to 9 mm at cirilo hepatis. Acystic focus is seen in thepancreatic head, possibly dilated accessoryduct or IPMN. Further evaluation can be obtained with correlation with CA19-9 and MRI/MRCP.2. ?Age-indeterminate L1 compressive deformity with approximately 20 %anterior height loss. Please correlate with point tenderness. Preliminary Report Dictated by Resident: Valeriy Naik, have personally reviewed the images and agree with theresident'sinterpretation and all modifications listed above. I, Celestino Naik MD., have reviewed this study and agree with theabove report.EXAM: CT ABDOMEN/PELVIS WITH CONTRAST HISTORY: ?r/o Malignancy ? COMPARISON: None TECHNIQUE AND FINDINGS: Contiguous axial imaging from the level of the lungbases through the proximal thighs was performed after the administration of100 cc of intravenous Omnipaque contrast. Coronal and sagittalreconstructions were obtained. ?Auto mA and/or iterative reconstructionwereused to reduce radiation dose. FINDINGS: LOWER THORAX: Trace bilateral pleural effusions with adjacent compressiveatelectasis. LIVER: No focal hepatic lesions. ?Normal contour. GALLBLADDER AND BILIARY TREE: The common duct is not mildly prominent,measuring 9 mm at the cirilo hepatis. SPLEEN: No splenomegaly. PANCREAS: Atrophic pancreas. The main duct is normal in caliber. A 1.5 cmhypodensity with fluid attenuation is seen in the pancreatic head/uncinateprocess. ADRENAL GLANDS: No adrenal nodules. KIDNEYS: No hydronephrosis, or stones. A 3 mm hypodensity is noted in theright kidney, too small to characterize, but statistically likely a cyst. PERITONEUM AND RETROPERITONEUM: No free air or fluid. LYMPH NODES: No lymphadenopathy. GI TRACT: No dilation or wall thickening. PELVIS/BLADDER: The urinary bladder is mildly distended. The uterus isunremarkable. VESSELS: Atherosclerotic calcifications in the aortoiliac vessels.. BONES AND SOFT TISSUES: No suspicious lytic or sclerotic bony lesions.Diffuse subcutaneous fat stranding. Multilevel degenerative changes spine.Mild L1 anterior compressive deformity with approximately 20% anteriorheight loss. [facility], Radiant Results Inft User - 10/17/2020 11:29 AM CSTEXAM: CT ABDOMEN/PELVIS WITH CONTRASTHISTORY: r/o Malignancy COMPARISON: NoneTECHNIQUE AND FINDINGS: Contiguous axial imaging from the level of the lungbases through the proximal thighs was performed after the administration of100 cc of intravenous Omnipaque contrast. Coronal and sagittalreconstructions were obtained. Auto mA and/or iterative reconstructionwere used to reduce radiation dose.FINDINGS:LOWER THORAX: Trace bilateral pleural effusions with adjacent compressiveatelectasis.LIVER: No focal hepatic lesions. Normal contour.GALLBLADDER AND BILIARY TREE: The common duct is not mildly prominent,measuring 9 mm at the cirilo hepatis.SPLEEN: No splenomegaly.PANCREAS: Atrophic pancreas. The main duct is normal in caliber. A 1.5 cmhypodensity with fluid attenuation is seen in the pancreatic hea d/uncinateprocess.ADRENAL GLANDS: No adrenal nodules.KIDNEYS: No hydronephrosis, or stones. A 3 mm hypodensity is noted in theright kidney, too small to characterize, but statistically likely a cyst.PERITONEUM AND RETROPERITONEUM: No free air or fluid.LYMPH NODES: No lymphadenopathy.GI TRACT: No dilation or wall thickening.PELVIS/BLADDER: The urinary bladder is mildly distended. The uterus isunremarkable.VESSELS: Atherosclerotic calcifications in the aortoiliac vessels..BONES AND SOFT TISSUES: No suspicious lytic or sclerotic bony lesions.Diffuse subcutaneous fat stranding. Multilevel degenerative changes spine.Mild L1 anterior compressive deformity with approximately 20% anteriorheight loss.IMPRESSION1. Mildly dilated common duct, measuring up to 9 mm at cirilo hepatis. Acystic focus is seen in the pancreatic head, possibly dilated accessoryduct or IPMN. Further evaluation can be obtained with c orrelation with CA19-9 and MRI/MRCP.2. Age-indeterminate L1 compressive deformity with approximately 20%anterior height loss. Please correlate with point tenderness.Preliminary Report Dictated by Resident: Valeriy Naik, have personally reviewed the images and agree with theresident's interpretation and all modifications listed above.I, Celestino Naik MD., have reviewed this study and agree with theabove report.[facility] CenterHCV BY [id number] 12:45:00 Test Item Value Reference Range 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 Comments HCV Quantitative Not Detected Not detected 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 (test IU/mL code = 7821681500) TANESHA (test code = TANESHA) [employer] m2000 RealTime HCV reverse cupola worker-polymeras e chain reaction(RT-PCR) assay is used. It is FDA approved for the quantitation of HCVin plasma and serum samples for HCV-infected individuals. The FDA approveddynamic range of this test is 12 IU/mL to 100,000,000 IU/mL (1.08-8.00 LogIU/mL). Assay results are reported in IU/mL..Result 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:Not Detected: Target not detected (not the same as negative),<12 IU/mL: Detected (but not quantifiable)12-100,000 ,000 IU/mL,>100,000,000 IU/mL: >upper limit of quantification. [facility] WITH [id number] 11:49:00 Test Item Value Reference Range 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 Comments WBC (test code = See_Comment [Automated 6690-2) message] The sy stem which generated this result transmitted reference range : 4.30 - 11.10 10*3/?L. The reference range was not used to interpret this result as normal/abnormal . RBC (test code = See_Comment L [Automated 789-8) message] The sy stem which generated this result transmitted reference range : 3.93 - 5.25 10*6/?L. The reference range was not used to interpret this result as normal/abnormal . HGB (test code = 10.9 g/dL 11.6-15 L 718-7) HCT (test code = 31.8 % 35.7-45.2 L 4544-3) MCV (test code = 91.4 fL 80.6-95.5 787-2) MCH (test code = 31.3 pg 25.9-32.8 785-6) MCHC (test code = 34.3 g/dL 31.6-35.1 786-4) RDW-SD (test code = 42.9 fL 39-49.9 09479-1) RDW-CV (test code = 13.1 % 12-15.5 788-0) PLT (test code = See_Comment [Automated 777-3) message] The sy stem which generated this result transmitted reference range : 166 - 358 10*3/ ?L. The reference r irvin was not used to interpret this result as normal/abnormal . MPV (test code = 12.2 fL 9.5-12.9 70310-7) NRBC/100 WBC (test See_Comment [Automat ed code = 6922505873) message] The system which generated this result transmitted reference range : 0.0 - 10.0 /100 WBCs. The refer ence range was not u sed to interpret th is result as normal/abnormal . NRBC x10^3 (test code <0.01 See_Comment [Auto mated = 6509787417) message] The s ystem which generated this result transmitted reference range : 10*3/?L. The reference range was not used to interpret this result as normal/abnormal . GRAN MAT (NEUT) % 70.1 % (test code = 770-8) IMM GRAN % (test code 0.40 % = 1873420927) LYMPH % (test code = 15.2 % 736-9) MONO % (test code = 11.6 % 5905-5) EOS % (test code = 2.3 % 713-8) BASO % (test code = 0.4 % 706-2) GRAN MAT x10^3(ANC) 3.37 10*3/uL 1.88-7.09 (test code = 5523453605) IMM GRAN x10^3 (test <0.03 0-0.06 code = 7636580958) LYMPH x10^3 (test code 0.73 10*3/uL 1.32-3.29 L = 731-0) MONO x10^3 (test code 0.56 10*3/uL 0.33-0.92 = 742-7) EOS x10^3 (test code = 0.11 10*3/uL 0.03-0.39 711-2) BASO x10^3 (test code <0.03 0.01-0.07 = 704-7) Lab 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 Abnormal (test code = 16663-5) [facility] (NA, K, CL, CO2, GLUCOSE, BUN, CREATININE, CA)2020-10-17 11:46:00 Test Item Value Reference Range 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 Comments NA (test code = 134 mmol/L 135-145 L 0119967212) K (test code = 3.3 mmol/L 3.5-5 L 0855852690) CL (test code = 100 mmol/L 98-108 5378067794) CO2 TOTAL (test code = 30 mmol/L 23-31 4301042580) AGAP (test code = 2-16 3772831027) BUN (test code = 8 mg/dL 7-23 7155935212) GLUCOSE (test code = 102 mg/dL 70-110 5471871321) CREATININE (test code = 0.37 mg/dL 0.5-1.04 L 4479838609) CALCIUM (test code = 8.5 mg/dL 8.6-10.6 L 4516743283) eGFR Calculation mL/min/1.73m2 (Non-) (test code = 0321707732) eGFR Calculation mL/min/1.73m2 () (test code = 1737578313) TANESHA (test code = TANESHA) Association of Glomerular Filtration Rate (GFR) and Staging of Kidney Disease* + --+ --+ ------+| GFR (mL/min/1.73 m2) ?| With Kidney Damage ?| ?Without Kidney Damage+ --------+ --------+ +| ?>90 ?| ?Stage one ?| ? Normal ?+ ---+ ---+ -------+| ?60-89 ?| ?Stage two ?| ? Decreased GFR ? + --+ --+ ------+| ?30-59 ?| ?Stage three ?| ? Stage three ? + --+ --+ ------+| ?15-29 ?| ?Stage four ? | ? Stage four ?+ ---+ ---+ -------+| ?<15 (or dialysis) ? ?| ?Stage five ? | ? Stage five ?+ ---+ ---+ -------+ *Each stage assumes the associated GFR level has been in effect for at least three months. ?Stages 1 to 5, with or without kidney disease, indicate chronic kidney disease. Notes: Determination of stages one and two (with eGFR >59mL/min/1.73 m2) requires estimation of kidney damage for at least three months as defined by structural or functional abnormalities of the kidney, manifested by either:Pathological abnormalities or Markers of kidney damage (including abnormalities in the composition of the blood or urine or abnormalities in imaging tests). Lab 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 Abnormal (test code = 66611-2) [facility]20[facility] 11:46:00 Test Item Value Reference Range 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 Comments MAGNESIUM (test code = 1011097207) 1.9 mg/dL 1.7-2.4 Lab 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 (test code = Normal 66657-9) [facility]20[facility]-11 10:58:00MAGNESIUMComment: Please disregard previous result value, patient results are inconsistent with previous results. Notified Dr. Macario Urbina, patient will be credited. This is a corrected result. ?Previous result was 1.3 mg/dL on 10/17/2020 at 0438 [facility] SERVICESUnMethodist HospitalCB WITH [id number] 10:53:00 Test Item Value Reference Range 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 Comments WBC (test code = See_Comment L [Automated 6690-2) message] The sy stem which generated this result transmitted reference range : 4.30 - 11.10 10*3/?L. The reference range was not used to interpret this result as normal/abnormal . RBC (test code = See_Comment L [Automated 789-8) message] The sy stem which generated this result transmitted reference range : 3.93 - 5.25 10*6/?L. The reference range was not used to interpret this result as normal/abnormal . HGB (test code = 7.6 g/dL 11.6-15 L 718-7) HCT (test code = 22.4 % 35.7-45.2 L 4544-3) MCV (test code = 92.6 fL 80.6-95.5 787-2) MCH (test code = 31.4 pg 25.9-32.8 785-6) MCHC (test code = 33.9 g/dL 31.6-35.1 786-4) RDW-SD (test code = 44.0 fL 39-49.9 84801-8) RDW-CV (test code = 13.0 % 12-15.5 788-0) PLT (test code = See_Comment L [Automated 777-3) message] The sy stem which generated this result transmitted reference range : 166 - 358 10*3/ ?L. The reference r irvin was not used to interpret this result as normal/abnormal . MPV (test code = 12.1 fL 9.5-12.9 17617-0) NRBC/100 WBC (test See_Comment [Automat ed code = 0524997805) message] The system which generated this result transmitted reference range : 0.0 - 10.0 /100 WBCs. The refer ence range was not u sed to interpret th is result as normal/abnormal . NRBC x10^3 (test code <0.01 See_Comment [Auto mated = 8333025134) message] The s ystem which generated this result transmitted reference range : 10*3/?L. The reference range was not used to interpret this result as normal/abnormal . GRAN MAT (NEUT) % 72.8 % (test code = 770-8) IMM GRAN % (test code 0.60 % = 2642177586) LYMPH % (test code = 12.5 % 736-9) MONO % (test code = 11.9 % 5905-5) EOS % (test code = 1.9 % 713-8) BASO % (test code = 0.3 % 706-2) GRAN MAT x10^3(ANC) 2.63 10*3/uL 1.88-7.09 (test code = 1425748936) IMM GRAN x10^3 (test <0.03 0-0.06 code = 9958838753) LYMPH x10^3 (test code 0.45 10*3/uL 1.32-3.29 L = 731-0) MONO x10^3 (test code 0.43 10*3/uL 0.33-0.92 = 742-7) EOS x10^3 (test code = 0.07 10*3/uL 0.03-0.39 711-2) BASO x10^3 (test code <0.03 0.01-0.07 = 704-7) Lab 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 Abnormal (test code = 47104-8) [facility] CenterBODY FLUID DIRECT [id number] 08:48:00 Test Item Value Reference Range Interpretation Comments BF COLOR (test code = Clear 0077017967) BF WBC Count (test See_Comment [Automat ed message] The code = 1195098200) system [facility] generated this result transmit carol reference range : 0 - 5 /?L. The reference r irvin was not used to interpr et this result as anoop l/abnormal. BF RBC Count (test See_Comment [Automat ed message] The code = 8940731146) system [facility] generated this result transmit carol reference range : /?L. The reference range was not used to interpr et this result as anoop l/abnormal. [facility] CenterBODY FLUID MANUAL [id number] 08:48:00 Test Item Value Reference Range Interpretation Comments BF SEGS (test code = 3122527919) 1 % 0-7 BF LYMPHS (test code = 7001017290) 18 % 28-96 L MACROPHAGE (test code = 5221036210) 6 % 16-56 L #CELS CNTD (test code = 2616688475) Lab Interpretation (test code = Abnormal 94462-6) [facility] CenterCerebrospinal Fluid [id number] 08:27:00 Test Item Value Reference Range Interpretation Comments GLU CSF (test code = 72 mg/dL 50-80 2933759653) UNSPUN BODY FLUID Colorless COLOR (test code = 1614859573) UNSPUN BODY FLUID Clear CLARITY (test code = 3042123253) SPUN BODY FLUID COLOR Colorless (test code = 1328204663) SPUN BODY FLUID Clear CLARITY (test code = 2239995156) Sediment (test code = The sediment volume is 9256708015) <0.01 mL of the total fluid volume of 2.5 mLs and its color is red. [facility] CenterCerrospinal Fluid [id number] 08:27:00 Test Item Value Reference Range Interpretation Comments T. PRO CSF (test code = 56.0 mg/dL 15-45 H 5246169164) UNSPUN BODY FLUID COLOR Colorless (test code = 8869551286) UNSPUN BODY FLUID CLARITY Clear (test code = 6104147424) SPUN BODY FLUID COLOR Colorless (test code = 6922363327) SPUN BODY FLUID CLARITY Clear (test code = 7833214531) Sediment (test code = The sediment volume 5652538298) is <0.01 mL of the total fluid volume of 2.5 mLs and its color is red. Lab Interpretation (test Abnormal code = 97100-8) [facility] CenterGLUCOSE, URINE [id number] 05:19:00 Test Item Value Reference Range Interpretation Comments GLU URINE (test code = <20 See_Comment [Aut omated message] 4283903666) The system [employer] generated this result transmitted ref erence range: <30 mg/d L. The reference range was not used to int erpret this result as normal/abnormal . Lab Interpretation (test Normal code = 39267-1) [facility] CenterElectroencephalogram (EEG) - Duration of test: 20-60 [id number] 00:00:00Date and Time of Procedure: 10/17/2020, 8:49:37 - 9:10:45 REPORT TECHNICAL SUMMARY: The EEG was recorded digitally. Electrodes were applied using the International 10/20 System of electrode placement. Eye movements and rhythm strip ECG were monitored on separate channels of the ongoing EEG recording. There is no occipital dominant rhythm. The background frequency spectrum is wide, consisting primarily of diffuse 2.5-4 Hz, 4-8 Hz, 8- 13 Hz, and 13-22 Hz activities. There is no definitive electrographic evidence of drowsiness or sleep seen. Photic stimulation does not elicit additional abnormalities. ?IMPRESSION: This study is abnormal due to:1) moderate diffuse slowing, which can be suggestive of a moderate diffuse disturbance in cerebral function but can also be related to sedating medications. No electrographic seizures or epileptiform discharges are seen. Pina Flores MD I personally interpreted the entirety of this test and agree with the above report written by Dr. Pina Cobos Rai, MD Date of interpretation: 10/17/2020UnMethodist HospitalMR BRAIN WO [id number] 22:27:44 FINDINGS/IMPRESSION: Only diffusion-weighted sequences were obtained and are markedly degradedby artifact. No diffusion restriction identified within the limitations of the scan. Thescan is a still clinically needed, repeat under sedation/anesthesia isrecommended.EXAM: MR BRAIN WO CONTRAST HISTORY: Altered level of consciousness (LOC), unexplained TECHNIQUE: Only diffusion-weighted sequences of the brain were obtained. COMPARISON: CT head dated 10/13/2020. [facility], Radiant Results Inft User - 10/16/2020 4:28 PM CSTEXAM: MR BRAIN WO CONTRASTHISTORY: Altered level of consciousness (LOC), unexplained TECHNIQUE: Only diffusion-weighted sequences of the brain were obtained.COMPARISON: CT head dated 10/13/2020.IMPRESSIONFINDINGS/IMPRESSION:Only diffusion-weighted sequences were obtained and are markedly degradedby artifact.No diffusion restriction identified within the limitations of the scan. Thescan is astill clinically needed, repeat under sedation/anesthesia isrecommended.[facility] CenterVITAMIN B1, [id number] 14:34:00 Test Item Value Reference Range Interpretation Comments VIT B1 (test code = 25 nmol/L 4-15 H INTERPRE TIVE DATA: ) Vitamin B1, Trevor sma Thiamine (vitam in B1) is reported. Ho wever, thiamine diphos phate (TDP), the biologically ac tive form of thiamin e, is not found in measurable concentrations in plasma, and is best determined in hole blood specimens . Plasma thiamine concentration r eflects recent intake r ather than body store s. Test developed and characteristics determined by [employer]. S ee Compliance Stat ement B: THERAVECTYS/CSP erforme d By: [facility] [place] [address] [id number] Director: Sherry Murillo MD Lab Interpretation Abnormal (test code = 43500-5) [facility] CenterCORTISOL [id number] 12:42:00 Test Item Value Reference Range Interpretation Comments HIRA AM (test code = 21.3 ug/dL 4.5-23 2706532187) TANESHA (test code = TANESHA) Biotin has been reported to cause a positive bias, interpret results relative to patient's use of biotin. Lab Interpretation (test Normal code = 26042-7) [facility] CenterBASIC METABOLIC PANEL (NA, K, CL, CO2, GLUCOSE, BUN, CREATININE, CA)2020-10-16 12:10:00 Test Item Value Reference Range Interpretation Comments NA (test code = 131 mmol/L 135-145 L 0148890543) K (test code = 3.6 mmol/L 3.5-5 0363333858) CL (test code = 99 mmol/L 98-108 7780946471) CO2 TOTAL (test code = 28 mmol/L 23-31 5441536436) AGAP (test code = 2-16 6055336299) BUN (test code = 7 mg/dL 7-23 1465625811) GLUCOSE (test code = 124 mg/dL 70-110 H 9520024346) CREATININE (test code = 0.34 mg/dL 0.5-1.04 L 6901976641) CALCIUM (test code = 8.3 mg/dL 8.6-10.6 L 9907107617) eGFR Calculation mL/min/1.73m2 (Non-) (test code = 6521290603) eGFR Calculation mL/min/1.73m2 () (test code = 8529624454) TANESHA (test code = TANESHA) Association of Glomerular Filtration Rate (GFR) and Staging of Kidney Disease* + --+ --+ ------+| GFR (mL/min/1.73 m2) ?| With Kidney Damage ?| ?Without Kidney Damage+ --------+ --------+ +| ?>90 ?| ?Stage one ?| ? Normal ?+ ---+ ---+ -------+| ?60-89 ?| ?Stage two ?| ? Decreased GFR ? + --+ --+ ------+| ?30-59 ?| ?Stage three ?| ? Stage three ? + --+ --+ ------+| ?15-29 ?| ?Stage four ? | ? Stage four ?+ ---+ ---+ -------+| ?<15 (or dialysis) ? ?| ?Stage five ? | ? Stage five ?+ ---+ ---+ -------+ *Each stage assumes the associated GFR level has been in effect for at least three months. ?Stages 1 to 5, with or without kidney disease, indicate chronic kidney disease. Notes: Determination of stages one and two (with eGFR >59mL/min/1.73 m2) requires estimation of kidney damage for at least three months as defined by structural or functional abnormalities of the kidney, manifested by either:Pathological abnormalities or Markers of kidney damage (including abnormalities in the composition of the blood or urine or abnormalities in imaging tests). Lab Interpretation Abnormal (test code = 73469-5) [facility] CenterCALCIUM, URINE [id number] 08:47:00 Test Item Value Reference Range Interpretation Comments CA URINE (test code = 1796606808) 32.4 mg/dL [facility] CenterCREATININE, URINE [id number] 08:39:00 Test Item Value Reference Range Interpretation Comments CREAT U (test code = 6774405882) 23.3 mg/dL [facility] CenterOSMOLALITY [id number] 08:38:00 Test Item Value Reference Range Interpretation Comments OSMO U (test code = See_Comment [Automa carol message] 3535129235) The system [employer] generated this result transmitted ref erence range: 50-1,100 mOsm/kg. The re ference range was not u sed to interpret this result as normal/abnor mal. Lab Interpretation (test Normal code = 11436-5) [facility] CenterMAGNESIUM, URINE [id number] 08:37:00 Test Item Value Reference Range Interpretation Comments MG URINE (test code = 1290743870) 31.0 mg/dL [facility] CenterPOTASSIUM, URINE [id number] 08:16:00 Test Item Value Reference Range Interpretation Comments K URINE (test code = 7880465553) 49.9 mmol/L [facility] CenterSODIUM, URINE [id number] 08:16:00 Test Item Value Reference Range Interpretation Comments NA URINE (test code = 7816843740) 117 mmol/L [facility] CenterCALCIUM, URINE [id number] 01:45:00 Test Item Value Reference Range Interpretation Comments CA URINE (test code = 6710129414) 34.2 mg/dL [facility] [id number] 00:29:00 Test Item Value Reference Range Interpretation Comments MAGNESIUM (test code = 3000894924) 3.3 mg/dL 1.7-2.4 H Lab Interpretation (test code = Abnormal 33598-1) [facility] CenterSODIUM, URINE [id number] 00:00:00 Test Item Value Reference Range Interpretation Comments NA URINE (test code = 2736769417) 127 mmol/L [facility] CenterBASIC METABOLIC PANEL (NA, K, CL, CO2, GLUCOSE, BUN, CREATININE, CA)2020-10-15 22:22:00 Test Item Value Reference Range Interpretation Comments NA (test code = 130 mmol/L 135-145 L 6165387451) K (test code = 3.3 mmol/L 3.5-5 L 1075728710) CL (test code = 97 mmol/L 98-108 L 3676418154) CO2 TOTAL (test code = 28 mmol/L 23-31 0909303896) AGAP (test code = 2-16 4906613461) BUN (test code = 5 mg/dL 7-23 L 8394267972) GLUCOSE (test code = 144 mg/dL 70-110 H 2416488431) CREATININE (test code = 0.37 mg/dL 0.5-1.04 L 3875571198) CALCIUM (test code = 8.1 mg/dL 8.6-10.6 L 4244886295) eGFR Calculation mL/min/1.73m2 (Non-) (test code = 9637946290) eGFR Calculation mL/min/1.73m2 () (test code = 5283411419) TANESHA (test code = TANESHA) Association of Glomerular Filtration Rate (GFR) and Staging of Kidney Disease* + --+ --+ ------+| GFR (mL/min/1.73 m2) ?| With Kidney Damage ?| ?Without Kidney Damage+ --------+ --------+ +| ?>90 ?| ?Stage one ?| ? Normal ?+ ---+ ---+ -------+| ?60-89 ?| ?Stage two ?| ? Decreased GFR ? + --+ --+ ------+| ?30-59 ?| ?Stage three ?| ? Stage three ? + --+ --+ ------+| ?15-29 ?| ?Stage four ? | ? Stage four ?+ ---+ ---+ -------+| ?<15 (or dialysis) ? ?| ?Stage five ? | ? Stage five ?+ ---+ ---+ -------+ *Each stage assumes the associated GFR level has been in effect for at least three months. ?Stages 1 to 5, with or without kidney disease, indicate chronic kidney disease. Notes: Determination of stages one and two (with eGFR >59mL/min/1.73 m2) requires estimation of kidney damage for at least three months as defined by structural or functional abnormalities of the kidney, manifested by either:Pathological abnormalities or Markers of kidney damage (including abnormalities in the composition of the blood or urine or abnormalities in imaging tests). Lab Interpretation Abnormal (test code = 61395-1) [facility] CenterOSMOLALITY [id number] 15:30:00 Test Item Value Reference Range Interpretation Comments OSMOLALITY (test code = See_Comment L [Au tomated message] 7763962649) The system [employer] generated this result transmitted ref erence range: 278 - 30 5 mOsm/kg. The reference range was not used to int erpret this result as normal/abnormal . Lab Interpretation (test Abnormal code = 16042-8) [facility] CenterMAGNESIUM2021-01-09 12:04:00 Test Item Value Reference Range Interpretation Comments MAGNESIUM (test code = 6846727078) 1.5 mg/dL 1.7-2.4 L Lab Interpretation (test code = Abnormal 50408-7) [facility] CenterPHOSPHORUS2021-01-09 12:04:00 Test Item Value Reference Range Interpretation Comments PHOSPHORUS (test code = 2874885566) 2.4 mg/dL 2.5-5 L Lab Interpretation (test code = Abnormal 44625-5) [facility] CenterBASIC METABOLIC PANEL (NA, K, CL, CO2, GLUCOSE, BUN, CREATININE, CA)2020-10-15 12:04:00 Test Item Value Reference Range Interpretation Comments NA (test code = 129 mmol/L 135-145 L 0368559580) K (test code = 3.4 mmol/L 3.5-5 L 7102258803) CL (test code = 97 mmol/L 98-108 L 7756823474) CO2 TOTAL (test code = 27 mmol/L 23-31 2461045588) AGAP (test code = 2-16 2525505256) BUN (test code = 7 mg/dL 7-23 6328090105) GLUCOSE (test code = 101 mg/dL 70-110 2295938187) CREATININE (test code = 0.37 mg/dL 0.5-1.04 L 9846077099) CALCIUM (test code = 8.4 mg/dL 8.6-10.6 L 5377185595) eGFR Calculation mL/min/1.73m2 (Non-) (test code = 7840775422) eGFR Calculation mL/min/1.73m2 () (test code = 9523743689) TANESHA (test code = TANESHA) Association of Glomerular Filtration Rate (GFR) and Staging of Kidney Disease* + --+ --+ ------+| GFR (mL/min/1.73 m2) ?| With Kidney Damage ?| ?Without Kidney Damage+ --------+ --------+ +| ?>90 ?| ?Stage one ?| ? Normal ?+ ---+ ---+ -------+| ?60-89 ?| ?Stage two ?| ? Decreased GFR ? + --+ --+ ------+| ?30-59 ?| ?Stage three ?| ? Stage three ? + --+ --+ ------+| ?15-29 ?| ?Stage four ? | ? Stage four ?+ ---+ ---+ -------+| ?<15 (or dialysis) ? ?| ?Stage five ? | ? Stage five ?+ ---+ ---+ -------+ *Each stage assumes the associated GFR level has been in effect for at least three months. ?Stages 1 to 5, with or without kidney disease, indicate chronic kidney disease. Notes: Determination of stages one and two (with eGFR >59mL/min/1.73 m2) requires estimation of kidney damage for at least three months as defined by structural or functional abnormalities of the kidney, manifested by either:Pathological abnormalities or Markers of kidney damage (including abnormalities in the composition of the blood or urine or abnormalities in imaging tests). Lab Interpretation Abnormal (test code = 97765-7) [facility] [id number] 11:51:00 Test Item Value Reference Range Interpretation Comments WBC (test code = 6690-2) See_Comment [A utomated message] The system [employer] generated this result transmit carol reference range : 4.30 - 11.10 10*3/?L. The reference range was not used to interpret this result as normal/abnormal . RBC (test code = 789-8) See_Comment L [Au tomated message] The system [employer] generated this result transmit carol reference range : 3.93 - 5.25 10* 6/?L. The reference r irvin was not used to interpret this result as normal/abnormal . HGB (test code = 718-7) 11.4 g/dL 11.6-15 L HCT (test code = 4544-3) 32.2 % 35.7-45.2 L MCH (test code = 785-6) 31.5 pg 25.9-32.8 MCV (test code = 787-2) 89.0 fL 80.6-95.5 MCHC (test code = 786-4) 35.4 g/dL 31.6-35.1 H PLT (test code = 777-3) See_Comment [Au tomated message] The system [employer] generated this result transmit carol reference range : 166 - 358 10*3/?L. The reference range was not used to interpret this result as normal/abnormal . MPV (test code = 11.8 fL 9.5-12.9 69759-2) RDW-CV (test code = 12.6 % 12-15.5 788-0) RDW-SD (test code = 41.1 fL 39-49.9 21641-5) NRBC x10^3 (test code = <0.01 See_Comment [Au tomated message] 4722188490) The system [employer] generated this result transmit carol reference range : 10*3/?L. The reference range was not used to interpret this result as normal/abnormal . NRBC/100 WBC (test code See_Comment [Au tomated message] = 4183962074) The system [employer] generated this result transmit carol reference range : 0.0 - 10.0 /100 WBC s. The reference r irvin was not used to interpret this result as normal/abnormal . IPF % (test code = 5877101221) Lab Interpretation (test Abnormal code = 38213-7) [facility] CenterXR CHEST 1 [id number] 03:35:17 No acute intrathoracic abnormality. Preliminary Report Dictated by Resident: William Villagomez MD., have reviewed this study and agree withthe above report.PROCEDURE: XR CHEST 1 VW CLINICAL INDICATION: tube placement COMPARISON: 10/13/2020 FINDINGS: The lungs are hyperinflated. Morphology suggests COPD. No focalconsolidation is identified. No pleural effusion or pneumothorax is seen.The heart is normal in size.No acute bony abnormality.Gaseous distention of the transverse colon. [facility], Radiant Results Inft User - 10/14/2020 9:36 PM CSTPROCEDURE: XR CHEST 1 VWCLINICAL INDICATION: tube placement COMPARISON: 10/13/2020FINDINGS:The lungs are hyperinflated. Morphology suggests COPD. No focalconsolidation is identified. No pleural effusion or pneumothorax is seen.The heart is normal in size.No acute bony abnormality.Gaseous distention of the transverse colon.IMPRESSIONNo acute intrathoracic abnormality.Preliminary Report Dictated by Resident: William Smith MD., have reviewed this study and agree withthe above report.[facility] CenterXR [id number] 03:18:19 1. ?Dobbhoff tube tip in the gastric body.EXAM: XR KUB HISTORY: Dobbhoff tube placement COMPARISON: None recent FINDINGS: A Dobbhoff tube terminates at the gastric body. Lung bases as visualized are clear. The cardiac silhouette is not enlarged. The bowel gas distribution is nonobstructed, mild gas distention of bowelloops noted.Bones are unremarkable. [facility], Radiant Results Inft User - 10/14/2020 9:19 PM CSTEXAM: XR KUBHISTORY: Dobbhoff tube placement COMPARISON: None recentFINDINGS:A Dobbhoff tube terminates at the gastric body.Lung bases as visualized are clear. The cardiac silhouette is not enlarged.The bowel gas distribution is nonobstructed, mild gas distention of bowelloops noted.Bones are unremarkable.IMPRESSION1. Dobbhoff tube tip in the gastric body.[facility] CenterBASIC METABOLIC PANEL (NA, K, CL, CO2, GLUCOSE, BUN, CREATININE, CA)2020-10-14 21:35:00 Test Item Value Reference Range Interpretation Comments NA (test code = 128 mmol/L 135-145 L 8549322063) K (test code = 3.4 mmol/L 3.5-5 L 3263062177) CL (test code = 95 mmol/L 98-108 L 3067348417) CO2 TOTAL (test code = 25 mmol/L 23-31 7441248448) AGAP (test code = 2-16 1955669849) BUN (test code = 4 mg/dL 7-23 L 0956324046) GLUCOSE (test code = 92 mg/dL 70-110 7813508145) CREATININE (test code = 0.36 mg/dL 0.5-1.04 L 8150867043) CALCIUM (test code = 8.8 mg/dL 8.6-10.6 8208503909) eGFR Calculation mL/min/1.73m2 (Non-) (test code = 0157412897) eGFR Calculation mL/min/1.73m2 () (test code = 7899732878) TANESHA (test code = TANESHA) Association of Glomerular Filtration Rate (GFR) and Staging of Kidney Disease* + --+ --+ ------+| GFR (mL/min/1.73 m2) ?| With Kidney Damage ?| ?Without Kidney Damage+ --------+ --------+ +| ?>90 ?| ?Stage one ?| ? Normal ?+ ---+ ---+ -------+| ?60-89 ?| ?Stage two ?| ? Decreased GFR ? + --+ --+ ------+| ?30-59 ?| ?Stage three ?| ? Stage three ? + --+ --+ ------+| ?15-29 ?| ?Stage four ? | ? Stage four ?+ ---+ ---+ -------+| ?<15 (or dialysis) ? ?| ?Stage five ? | ? Stage five ?+ ---+ ---+ -------+ *Each stage assumes the associated GFR level has been in effect for at least three months. ?Stages 1 to 5, with or without kidney disease, indicate chronic kidney disease. Notes: Determination of stages one and two (with eGFR >59mL/min/1.73 m2) requires estimation of kidney damage for at least three months as defined by structural or functional abnormalities of the kidney, manifested by either:Pathological abnormalities or Markers of kidney damage (including abnormalities in the composition of the blood or urine or abnormalities in imaging tests). Lab Interpretation Abnormal (test code = 45592-9) [facility] METABOLIC PANEL (NA, K, CL, CO2, GLUCOSE, BUN, CREATININE, CA)2020-10-14 12:04:00 Test Item Value Reference Range Interpretation Comments NA (test code = 130 mmol/L 135-145 L 5121293844) K (test code = 2.7 mmol/L 3.5-5 LL 2149632429) CL (test code = 94 mmol/L 98-108 L 4570344441) CO2 TOTAL (test code = 32 mmol/L 23-31 H 6228313371) AGAP (test code = 2-16 7567556863) BUN (test code = 3 mg/dL 7-23 L 2361893864) GLUCOSE (test code = 105 mg/dL 70-110 6858298821) CREATININE (test code = 0.32 mg/dL 0.5-1.04 L 8298950618) CALCIUM (test code = 8.2 mg/dL 8.6-10.6 L 8907156544) eGFR Calculation mL/min/1.73m2 (Non-) (test code = 7578380400) eGFR Calculation mL/min/1.73m2 () (test code = 1053328320) TANESHA (test code = TANESHA) Association of Glomerular Filtration Rate (GFR) and Staging of Kidney Disease* + --+ --+ ------+| GFR (mL/min/1.73 m2) ?| With Kidney Damage ?| ?Without Kidney Damage+ --------+ --------+ +| ?>90 ?| ?Stage one ?| ? Normal ?+ ---+ ---+ -------+| ?60-89 ?| ?Stage two ?| ? Decreased GFR ? + --+ --+ ------+| ?30-59 ?| ?Stage three ?| ? Stage three ? + --+ --+ ------+| ?15-29 ?| ?Stage four ? | ? Stage four ?+ ---+ ---+ -------+| ?<15 (or dialysis) ? ?| ?Stage five ? | ? Stage five ?+ ---+ ---+ -------+ *Each stage assumes the associated GFR level has been in effect for at least three months. ?Stages 1 to 5, with or without kidney disease, indicate chronic kidney disease. Notes: Determination of stages one and two (with eGFR >59mL/min/1.73 m2) requires estimation of kidney damage for at least three months as defined by structural or functional abnormalities of the kidney, manifested by either:Pathological abnormalities or Markers of kidney damage (including abnormalities in the composition of the blood or urine or abnormalities in imaging tests). Lab Interpretation Abnormal (test code = 90080-1) [facility] 11:58:00 Test Item Value Reference Range Interpretation Comments MAGNESIUM (test code = 9085535489) 1.9 mg/dL 1.7-2.4 Lab Interpretation (test code = Normal 56487-7) [facility]PHOSPHORUS2021-[facility]-08 11:58:00 Test Item Value Reference Range Interpretation Comments PHOSPHORUS (test code = 4181695883) 2.0 mg/dL 2.5-5 L Lab Interpretation (test code = Abnormal 97156-4) [facility] CenterCBC WITHOUT [id number] 11:36:00 Test Item Value Reference Range Interpretation Comments WBC (test code = 6690-2) See_Comment [A utomated message] The system [employer] generated this result transmit carol reference range : 4.30 - 11.10 10*3/?L. The reference range was not used to interpret this result as normal/abnormal . RBC (test code = 789-8) See_Comment L [Au tomated message] The system [employer] generated this result transmit carol reference range : 3.93 - 5.25 10* 6/?L. The reference r irvin was not used to interpret this result as normal/abnormal . HGB (test code = 718-7) 11.9 g/dL 11.6-15 HCT (test code = 4544-3) 33.2 % 35.7-45.2 L MCH (test code = 785-6) 31.6 pg 25.9-32.8 MCV (test code = 787-2) 88.1 fL 80.6-95.5 MCHC (test code = 786-4) 35.8 g/dL 31.6-35.1 H PLT (test code = 777-3) See_Comment [Au tomated message] The system [employer] generated this result transmit carol reference range : 166 - 358 10*3/?L. The reference range was not used to interpret this result as normal/abnormal . MPV (test code = 12.2 fL 9.5-12.9 01951-5) RDW-CV (test code = 12.4 % 12-15.5 788-0) RDW-SD (test code = 39.7 fL 39-49.9 53516-6) NRBC x10^3 (test code = <0.01 See_Comment [Au tomated message] 7150428050) The system [employer] generated this result transmit carol reference range : 10*3/?L. The reference range was not used to interpret this result as normal/abnormal . NRBC/100 WBC (test code See_Comment [Au tomated message] = 7187396010) The system [facility] generated this result transmit carol reference range : 0.0 - 10.0 /100 WBC s. The reference r irvin was not used to interpret this result as normal/abnormal . IPF % (test code = 5170247473) Lab Interpretation (test Abnormal code = 25174-3) [facility] CenterAMMONIA, [id number] 23:07:00 Test Item Value Reference Range Interpretation Comments AMMONIA (test code = 0123458418) 19 umol/L 9-33 Lab Interpretation (test code = Normal 83722-9) [facility] METABOLIC PANEL (NA, K, CL, CO2, GLUCOSE, BUN, CREATININE, CA)2020-10-13 23:06:00 Test Item Value Reference Range Interpretation Comments NA (test code = 128 mmol/L 135-145 L 9776162915) K (test code = 2.4 mmol/L 3.5-5 LL 2399753084) CL (test code = 93 mmol/L 98-108 L 9102117785) CO2 TOTAL (test code = 30 mmol/L 23-31 4980142022) AGAP (test code = 2-16 1716070603) BUN (test code = 4 mg/dL 7-23 L 4754375863) GLUCOSE (test code = 127 mg/dL 70-110 H 0245385764) CREATININE (test code = 0.34 mg/dL 0.5-1.04 L 4972565412) CALCIUM (test code = 8.4 mg/dL 8.6-10.6 L 5451039291) eGFR Calculation mL/min/1.73m2 (Non-) (test code = 6860667311) eGFR Calculation mL/min/1.73m2 () (test code = 4577289001) TANESHA (test code = TANESHA) Association of Glomerular Filtration Rate (GFR) and Staging of Kidney Disease* + --+ --+ ------+| GFR (mL/min/1.73 m2) ?| With Kidney Damage ?| ?Without Kidney Damage+ --------+ --------+ +| ?>90 ?| ?Stage one ?| ? Normal ?+ ---+ ---+ -------+| ?60-89 ?| ?Stage two ?| ? Decreased GFR ? + --+ --+ ------+| ?30-59 ?| ?Stage three ?| ? Stage three ? + --+ --+ ------+| ?15-29 ?| ?Stage four ? | ? Stage four ?+ ---+ ---+ -------+| ?<15 (or dialysis) ? ?| ?Stage five ? | ? Stage five ?+ ---+ ---+ -------+ *Each stage assumes the associated GFR level has been in effect for at least three months. ?Stages 1 to 5, with or without kidney disease, indicate chronic kidney disease. Notes: Determination of stages one and two (with eGFR >59mL/min/1.73 m2) requires estimation of kidney damage for at least three months as defined by structural or functional abnormalities of the kidney, manifested by either:Pathological abnormalities or Markers of kidney damage (including abnormalities in the composition of the blood or urine or abnormalities in imaging tests). Lab Interpretation Abnormal (test code = 91378-5) [facility] CenterCREATINE [id number] 23:04:00 Test Item Value Reference Range Interpretation Comments CK (test code = 9861269163) 120 U/L 33-194 Lab Interpretation (test code = Normal 56049-1) [facility] [id number] 22:44:00 Test Item Value Reference Range Interpretation Comments FREE T4 (test code = See_Comment H [Autom ated message] 9422596642) The system [employer] generated this result transmitted ref erence range: 0.78 - 2 .20 ng/dL:. The ref erence range was not u sed to interpret this result as normal/abnor mal. Lab Interpretation (test Abnormal code = 80254-0) [id number] 22:44:00 Test Item Value Reference Range Interpretation Comments FREE T3 (test code = 6296532692) 3.44 pg/mL 2.77-5.27 Lab Interpretation (test code = Normal 97401-0) [facility] CenterHEPATIC FUNCTION PANEL (22660) (ALB,T.PRO,BILI T,BU/BC,ALT,AST,ALK PHOS)2020-10-13 22:26:00 Test Item Value Reference Range Interpretation Comments TOTAL BILI (test code = 9061040294) 0.5 mg/dL 0.1-1.1 BILI UNCON (test code = 0550304326) 0.5 mg/dL 0.1-1.1 BILI CONJ (test code = 8062883735) 0.0 mg/dL 0-0.3 T PROTEIN (test code = 8955227417) 6.3 g/dL 6.3-8.2 ALBUMIN (test code = 1526312579) 4.0 g/dL 3.5-5 ALK PHOS (test code = 0910994566) 75 U/L 34-122 ALTv (test code = 1742-6) 52 U/L 5-35 H AST(SGOT) (test code = 6719606628) 49 U/L 13-40 H Lab Interpretation (test code = Abnormal 97111-6) [facility] CenterPHENYTOIN [id number] 17:04:00 Test Item Value Reference Range Interpretation Comments PHENY FREE (test code 1.7 ug/mL 1-2 = 3473385288) TANESHA (test code = TANESHA) Toxic Range: ? Greater than 2.5 ug/mL Test developed and characteristics determined by [facility] Laboratory Services. Lab Interpretation Normal (test code = 48115-8) [facility] CenterChest 2 [id number] 16:43:20EXAM: XR CHEST 2 VW HISTORY: concern for aspiration. COMPARISON: None. FINDINGS: The heart and great vessels are normal and the lungs are well expanded andclear. They show nothing to suggest aspiration. ? [facility], Radiant Results Inft User - 10/13/2020 10:44 AM CSTEXAM: XR CHEST 2 VWHISTORY: concern for aspiration. COMPARISON: None.FINDINGS:The heart and great vessels are normal and the lungs are well expanded andclear. They show nothing to suggest aspiration.[facility] CenterHIV 1/2 AG-AB WITH [id number] 16:39:00 Test Item Value Reference Range Interpretation Comments HIV Negative Negative Semi-quantitative (test code = 84690-5) TANESHA (test code = Non-reactive for HIV-1 TANESHA) antigen and HIV-1/HIV-2 antibodies. ?No laboratory evidence of HIV infection. ?Repeat in 2-4 weeks if acute HIV infection is suspected. [facility] CenterGALV ONLY - SYPHILIS [id number] 16:13:00 Test Item Value Reference Range Interpretation Comments Syphilis IgG/IgM (test Non-reactive Non-reactive code = 37013-0) TANESHA (test code = TANESHA) Non-reactive - No serologic evidence of T. pallidum infection. Cannot exclude incubating or early syphilis. Submit a second specimen in 2-4 weeks if syphilis is clinically suspected. Equivocal - Further testing to follow. Reactive - Further testing to follow. Lab Interpretation (test Normal code = 47739-0) [facility] CenterLAB ONLY COVID [id number] 15:25:00COVID DMT InterpretationInterpretation/Recommendations: Molecular NAAT Tests for Active Infection with the SARS-CoV-2 Virus: This result indicates that the patient has tested negative on one occasion for the SARS-CoV-2 virus that causes COVID-19 illness. This most likely indicates that the patient does not have an active infection with the SARS-CoV-2 virus. However, infection is not completely ruled out as the false negative rate for molecular NAAT testing using a nasopharyngeal sample can be up to 30%, mostly dependent on the timing of sample collection in relation to illness onset and any deficiencies in sampling techniques. If the patient continues to have persistent or worsening symptoms concerning for COVID-19 illness, a repeat NAAT test (PCR, Rapid ID Now, etc.) should be performed, at which time the SARS-CoV-2 virus - if present - may have reached a detectable viral load (usually peaking by the end of the first week of symptoms). Tests for IgM and/or IgG Antibodies to SARS-CoV-2 Virus: Testing for IgM and IgG antibodies 1-3 weeks after illness onset will indicate whether the patient has produced antibodies to the virus. At this time, it is not known if the production of antibodies - specifically IgG antibodies - indicates whether the patient is immune to future infections with the SARS-CoV-2 virus. ? ? Interp retation Result Comments:These interpretation comments are based upon all COVID- 19 testing the patient has had at [facility], including molecular NAAT testing (more commonly known as PCR testing and Rapid IDNow testing) and antibody testing. It does not take into account any testing that a patient has had outside of the [facility] medical record. [facility] LABORATORY SERVICESCOVID XogekarCMXO-OzA-6 Rapid ID NOW (no units) ? ? Date ? Value ? 10/11/2020 ? Not Detected ? [facility] LABORATORY SERVICESUnMethodist HospitalCT HEAD WO [id number] 15:08:15 No acute intracranial abnormality. Preliminary Report Dictated by Resident: Angelia Alonzo MD., have reviewed this study and agree with theabove report.CT HEAD WO CONTRAST HISTORY: AMS. Previous CT too degraded COMPARISON: CT head without contrast 10/11/2020. TECHNIQUE: Contiguous axial imaging to the base of skull was obtained with2.5 mm slices without intravenous contrast. 5 mm axial, coronal, andsagittal reformats were obtained. FINDINGS: The ventricles and cerebral sulci are normal in caliber and configuration.No hydrocephalus, midline shift or pathological extra-axial fluidcollection is present. The basal cisterns are unremarkable. There is no acute intracranial hemorrhage or significant mass effect.Intracranial atherosclerosis. The beaver-white matter differentiation isp reserved. The mastoid air cells and paranasal air sinuses are clear. The calvariumand central skull base are unremarkable. Pneumatization of the left petrousapex is noted. Right frontal sinus is underpneumatized. [facility], Radiant Results Inft User - 10/13/2020 9:09 AM CSTCT HEAD WO CONTRASTHISTORY: AMS. Previous CT too degraded COMPARISON: CT head without contrast 10/11/2020.TECHNIQUE: Contiguous axial imaging to the base of skull was obtained with2.5 mm slices without intravenous contrast. 5 mm axial, coronal, andsagittal reformats were obtained.FINDINGS:The ventricles and cerebral sulci are normal in caliber and configuration.No hydrocephalus, midline shift or pathological extra- axial fluidcollection is present. The basal cisterns are unremarkable.There is no acute intracranial hemorrhage or significant mass effect.Intracranial atherosclerosis. The beaver-white matter differentiation ispreserved.Themastoid air cells and paranasal air sinuses are clear. The calvariumand central skull base are unremarkable. Pneumatization of the left petrousapex is noted. Right frontal sinus is underpneumatized.IMPRESSIONNo acute intracranial abnormality.Preliminary Report Dictated by Resident: Angelia Ricci MD., have reviewed this study and agree with theabove report. [facility] CenterVitamin B12 [id number] 13:28:00 Test Item Value Reference Range Interpretation Comments VIT B12 (test code = 988 pg/mL 240-930 H 7779685434) TANESHA (test code = TANESHA) Biotin has been reported to cause a positive bias, interpret results relative to patient's use of biotin. Lab Interpretation (test Abnormal code = 38575-4) [facility] CenterThyroid Stimulating [id number] 13:10:00 Test Item Value Reference Range Interpretation Comments TSH (test code = See_Comment L [Automated message] 3517865234) The system [employer] generated this result transmitted ref erence range: 0.45 - 4 .70 mIU/L. The refe rence range was not u sed to interpret this result as normal/abnor mal. Lab Interpretation (test Abnormal code = 35508-2) [facility] CenterTroponin [id number] 12:52:00 Test Item Value Reference Range Interpretation Comments TROPONIN I (test 0.006 ng/mL See_Comment [Automated code = 8244920666) message] The system which generated this result transmitted reference range : <=0.034. The reference range was not used to interpret this result as normal/abnormal . TANESHA (test code = Equal or Less than TANESHA) 0.034 ng/ml---Normal ?Note: Cardiac troponin begins to rise 3-4 hours after the onset of ischemia. Repeat in 4-6 hours if the sample was drawn within 3-4 hours of the onset of the symptom and found normal. Between 0.035 and 0.120 ng/mL--- Borderline. Questionable myocardial injury or necrosis ? ?Note: Serial measurement may be necessary to confirm or exclude the diagnosis of myocardial injury or necrosis; Clinical correlation (symptoms, EKGs, imaging studies, and others) required; Repeat in 4-6 hours if clinically indicated. ? Equal or Higher than 0.121 ng/mL---Abnormal. Myocardial Injury or Necrosis Likely ? Biotin has been reported to cause a negative bias, interpret results relative to patient's use of biotin. ? Lab Interpretation Normal (test code = 15628-7) [facility] CenterMagnesium [id number] 12:40:00 Test Item Value Reference Range Interpretation Comments MAGNESIUM (test code = 8935891380) 1.6 mg/dL 1.7-2.4 L Lab Interpretation (test code = Abnormal 26419-0) [facility] Drug (Immunoassay) - Comprehensive Drug [id number] 12:36:00 Test Item Value Reference Range Interpretation Comments MICHEL S (test code = Negative Negative 3587524559) BENZO S (test code = Presumptive Positive Negative A 5739008986) TRICYCLIC (test code = Negative Negative 1791900856) TANESHA (test code = TANESHA) Serum Drug Screen Cutoff Ranges Barbiturates ? ? - 3 mcg/mLBenzodiazepines ?- 50 ng/mLTCA ?- 300 ng/mL Test developed and characteristics determined by [facility] Laboratory Services. The results are to be used only for medical (i.e., treatment) purposes. Unconfirmed screening results must not be used for non-medical purposes (e.g., employment testing, legal testing). Lab Interpretation Abnormal (test code = 99870-4) [facility] Metabolic Panel (Na, K, Cl, CO2, Glucose, BUN, Creatinine, Ca)2020-10-13 12:04:00 Test Item Value Reference Range Interpretation Comments NA (test code = 130 mmol/L 135-145 L 3391208565) K (test code = 2.6 mmol/L 3.5-5 LL 0812030177) CL (test code = 94 mmol/L 98-108 L 6392040891) CO2 TOTAL (test code = 33 mmol/L 23-31 H 0076846687) AGAP (test code = 2-16 2653810517) BUN (test code = 4 mg/dL 7-23 L 2757076681) GLUCOSE (test code = 137 mg/dL 70-110 H 2715949656) CREATININE (test code = 0.33 mg/dL 0.5-1.04 L 7249002019) CALCIUM (test code = 8.6 mg/dL 8.6-10.6 9169031444) eGFR Calculation mL/min/1.73m2 (Non-) (test code = 1307594641) eGFR Calculation mL/min/1.73m2 () (test code = 2842642137) TANESHA (test code = ATNESHA) Association of Glomerular Filtration Rate (GFR) and Staging of Kidney Disease* + --+ --+ ------+| GFR (mL/min/1.73 m2) ?| With Kidney Damage ?| ?Without Kidney Damage+ --------+ --------+ +| ?>90 ?| ?Stage one ?| ? Normal ?+ ---+ ---+ -------+| ?60-89 ?| ?Stage two ?| ? Decreased GFR ? + --+ --+ ------+| ?30-59 ?| ?Stage three ?| ? Stage three ? + --+ --+ ------+| ?15-29 ?| ?Stage four ? | ? Stage four ?+ ---+ ---+ -------+| ?<15 (or dialysis) ? ?| ?Stage five ? | ? Stage five ?+ ---+ ---+ -------+ *Each stage assumes the associated GFR level has been in effect for at least three months. ?Stages 1 to 5, with or without kidney disease, indicate chronic kidney disease. Notes: Determination of stages one and two (with eGFR >59mL/min/1.73 m2) requires estimation of kidney damage for at least three months as defined by structural or functional abnormalities of the kidney, manifested by either:Pathological abnormalities or Markers of kidney damage (including abnormalities in the composition of the blood or urine or abnormalities in imaging tests). Lab Interpretation Abnormal (test code = 69189-8) [facility] CenterPhosphorus [id number] 11:52:00 Test Item Value Reference Range Interpretation Comments PHOSPHORUS (test code = 9937638650) 2.5 mg/dL 2.5-5 Lab Interpretation (test code = Normal 26808-6) [facility] CenterCreatine Kinase (CK)2020-10-13 11:52:00 Test Item Value Reference Range Interpretation Comments CK (test code = 2191513872) 210 U/L 33-194 H Lab Interpretation (test code = Abnormal 30832-8) [facility] CenterProthrombin Time (PT) / [id number] 11:29:00 Test Item Value Reference Range Interpretation Comments PROTIME PATIENT (test See_Comment [Auto mated message] code = 5964-2) The system wh ich generated this result transmitted ref erence range: 10.1 - 1 2.6 Seconds. The re ference range was not u sed to interpret this result as normal/abnor mal. INR (test code = 6301-6) Nor mal INR <1.1; Warfarin Therap eutic range 2.0 to 3. 0 or 2.5 to 3.5, dep ending upon the indica tions. Lab Interpretation (test Normal code = 66460-7) [facility] CenterCBC with [id number] 11:27:00 Test Item Value Reference Range Interpretation Comments WBC (test code = See_Comment [Automated 3690-2) message] The sy stem which generated this result transmitted reference range : 4.30 - 11.10 10*3/?L. The reference range was not used to interpret this result as normal/abnormal . RBC (test code = See_Comment L [Automated 359-8) message] The sy stem which generated this result transmitted reference range : 3.93 - 5.25 10*6/?L. The reference range was not used to interpret this result as normal/abnormal . HGB (test code = 11.4 g/dL 11.6-15 L 718-7) HCT (test code = 32.7 % 35.7-45.2 L 4544-3) MCV (test code = 89.1 fL 80.6-95.5 787-2) MCH (test code = 31.1 pg 25.9-32.8 785-6) MCHC (test code = 34.9 g/dL 31.6-35.1 786-4) RDW-SD (test code = 40.8 fL 39-49.9 38725-1) RDW-CV (test code = 12.5 % 12-15.5 788-0) PLT (test code = See_Comment [Automated 777-3) message] The sy stem which generated this result transmitted reference range : 166 - 358 10*3/ ?L. The reference r irvin was not used to interpret this result as normal/abnormal . MPV (test code = 11.8 fL 9.5-12.9 51777-0) NRBC/100 WBC (test See_Comment [Automat ed code = 9632152529) message] The system which generated this result transmitted reference range : 0.0 - 10.0 /100 WBCs. The refer ence range was not u sed to interpret th is result as normal/abnormal . NRBC x10^3 (test code <0.01 See_Comment [Auto mated = 5544266518) message] The s ystem which generated this result transmitted reference range : 10*3/?L. The reference range was not used to interpret this result as normal/abnormal . GRAN MAT (NEUT) % 77.8 % (test code = 770-8) IMM GRAN % (test code 0.40 % = 9973978822) LYMPH % (test code = 9.6 % 736-9) MONO % (test code = 12.1 % 5905-5) EOS % (test code = 0.0 % 713-8) BASO % (test code = 0.1 % 706-2) GRAN MAT x10^3(ANC) 5.61 10*3/uL 1.88-7.09 (test code = 4092613764) IMM GRAN x10^3 (test 0.03 10*3/uL 0-0.06 code = 6557300851) LYMPH x10^3 (test code 0.69 10*3/uL 1.32-3.29 L = 731-0) MONO x10^3 (test code 0.87 10*3/uL 0.33-0.92 = 742-7) EOS x10^3 (test code = <0.03 0.03-0.39 L 711-2) BASO x10^3 (test code <0.03 0.01-0.07 = 704-7) Lab Interpretation Abnormal (test code = 80121-3) [facility] CenterElectroencephalogram (EEG) - Duration of test: 20-60 [id number] 00:00:00Date and Time of Procedure: 10/13/2020, 9:30:14- 9:53:29 REPORT TECHNICAL SUMMARY: The EEG was recorded digitally. Electrodes were applied using the International 10/20 System of electrode placement. Eye movements, respiratory excursions and rhythm strip ECG were monitored on separate channels of the ongoing EEG recording. There is no occipital dominant rhythm. The background frequency spectrum is wide, consisting primarily of diffuse 2-4 Hz, 4-8 Hz, 8-13 Hz, and 13-22 Hz activities. There are alsofrequent triphasic waves. There is no definitive electrographic evidence of drowsiness or sleep seen. Photic stimulation does not elicit any abnormalities. Hyperventilation is not employed as activation technique. No electrographic seizures or epileptiform abnormalities are seen. ?IMPRESSION: This study is abnormal due to:1) moderate diffuse slowing, suggestive of a moderate diffuse disturbance incerebral function.2) triphasic waves. This could be suggestive of a toxic or metabolic encephalopathy, but can also be seen after anoxic brain injury as well as in neurodegenerative disease. No electrographic seizures or epileptiform abnormalities are seen. The fact that there is no definitive electrographic evidence of drowsiness or sleep seen may decrease the diagnostic sensitivity of the test, as some EEG abnormalities are more commonly seen in drowsiness and sleep. Orlando Shea MD Date of interpretation: [facility]2020[facility]12 13:39:00 Test Item Value Reference Range Interpretation Comments POCT GLU (test code = 0950046541) 165 mg/dL 70-110 H Lab Interpretation (test code = Abnormal 81844-8) [facility] GLUCOSE (AUTOMATED)2020-10-12 06:20:00 Test Item Value Reference Range Interpretation Comments POCT GLU (test code = 0286912843) 79 mg/dL 70-110 Lab Interpretation (test code = Normal 87069-0) [facility]2020-10-12 06:10:00 Test Item Value Reference Range Interpretation Comments SARS-CoV-2 Rapid ID NOW Not Detected Not Detected (test code = 33003-4) TANESHA (test code = TANESHA) ID NOW COVID-19 Assay is an isothermal nucleic acid amplification test intended for the qualitative detection of nucleic acid from SARS-CoV-2 viral RNA in nasopharyngeal (INSPECTOR PURCHASED PARTS) specimens. It is used under Emergency Use Authorization (EUA) by FDA. The limit of detection (LOD) of the assay is 125 Genome Equivalents/mL. A positive result is indicative of the presence of SARS-CoV-2 RNA. ?Clinical correlation with patient history and other diagnostic information is necessary to determine patient infection status. A negative (Not Detected) result does not preclude SARS-CoV-2 infection. In patients with clinical symptoms and other tests that are consistent with SARS-CoV-2 infection, negative results should be treated as presumptive negative and a new specimen should be tested with alternative PCR molecular test. Invalid: Please collect a new specimen for repeat patient testing if clinically indicated. Lab Interpretation Normal (test code = 84801-2) [facility] HEAD WO [id number] 04:49:02 Within the limitations of motion artifact, no gross acute intracranialabnormality is seen. Preliminary Report Dictated by Resident: Farhat Hodgson Report change Arnel Herrera reviewed this studyand disagree with the above reportwith the following modifications: Significantly motion degraded exam. Recommend repeat examination. Arnel Herrera MD., have reviewed this study and agree with theabove report.CT HEAD WO CONTRAST HISTORY: Altered mental status (AMS), unclear cause , dehydration, historyof benzodiazepine use. COMPARISON: None TECHNIQUE: Noncontrast CT of the brain was obtained with coronal andsagittal reconstructions. FINDINGS: Motion artifact degrades image quality. The vent ricles and cerebral sulci are normal in caliber and configuration.No hydrocephalus, midline shift orpathological extra-axial fluidcollection is present. The basal cisterns are unremarkable. There is no acute intraparenchymal hemorrhage or significant mass effect.The beaver-white matter differentiation is preserved. Visualized mastoid air cells and paranasal air sinuses are clear. [facility], Radiant Results Inft User - 10/11/2020 10:52 PM CSTCT HEAD WO CONTRASTHISTORY: Altered mental status (AMS), unclear cause , dehydration, historyof benzodiazepine use. COMPARISON: NoneTECHNIQUE: Noncontrast CT of the brain was obtained with coronal andsagittal reconstructions.FINDINGS:Motion artifact degrades image quality.The ventricles and cerebral sulci are normal in caliber and configuration.No hydrocephalus, midline shift or pathological extra- axial fluidcollection is present. The basal cisterns are unremarkable.There is no acute intraparenchymal hemorrhage or significant mass effect.The beaver-white matter differentiation is preserved. Visualized mastoid air cells and paranasal air sinuses are clear. IMPRESSIONWithin the limitations of motion artifact, no gross acute intracranialabnormality is seen.Preliminary Report Dictated by Resident: Arnel Lopez reviewed this study and disagree with the above reportwith the following modifications:Significantly motion degraded exam.Recommend repeat examination. IArnel MD., have reviewed this study and agree with theabove report.[facility]IS[facility] 02:27:00 Test Item Value Reference Range Interpretation Comments APPEARANCE (test code = Hazy Clear A 1600544283) COLOR (test code = Yellow Yellow 5973932044) PH (test code = 4.8-8.0 2604103896) SP GRAVITY (test code = >=1.030 1.003-1.030 5242954549) GLU U QUAL (test code = Negative Negative 0342902443) BLOOD (test code = Moderate Negative A 6471340410) KETONES (test code = >80 mg/dL Negative A 3319819315) PROTEIN (test code = Negative Negative 2887-8) UROBILIN (test code = 0.2 mg/dL See_Comment [Auto mated message] 5481869052) The system [employer] generated this result transmit carol reference range : 0-1.0 mg/dL. Th e reference range was not used to interpret this result as normal/abnormal . BILIRUBIN (test code = Negative Negative 9865430820) NITRITE (test code = Negative Negative 6960005921) LEUK EDINSON (test code = Negative Negative 7328155175) RBC/HPF (test code = See_Comment [Autom ated message] 3592432383) The system [employer] generated this result transmit carol reference range : 0 - 3 HPF. The refe rence range was not u sed to interpret th is result as normal/abnormal . WBC/HPF (test code = See_Comment [Autom ated message] 8612560297) The system [employer] generated this result transmit carol reference range : 0 - 5 HPF. The refe rence range was not u sed to interpret th is result as normal/abnormal . BACTERIA (test code = Few Negative A 1216870322) MUCOUS (test code = Slight Negative LPF A 1657219670) Lab Interpretation (test Abnormal code = 93723-1) [facility]. METABOLIC PANEL (91322)2020-10-12 02:14:00 Test Item Value Reference Range Interpretation Comments NA (test code = 135 mmol/L 135-145 3952756937) K (test code = 3.6 mmol/L 3.5-5 6369147590) CL (test code = 96 mmol/L 98-108 L 3938050460) CO2 TOTAL (test code = 23 mmol/L 23-31 3335116815) AGAP (test code = 2-16 2631859967) BUN (test code = 17 mg/dL 7-23 8621816856) GLUCOSE (test code = 93 mg/dL 70-110 8683806847) CREATININE (test code = 0.45 mg/dL 0.5-1.04 L 4012642528) TOTAL BILI (test code = 0.8 mg/dL 0.1-1.3 0647990852) CALCIUM (test code = 9.4 mg/dL 8.6-10.6 9436565463) T PROTEIN (test code = 7.7 g/dL 6.3-8.2 9720844343) ALBUMIN (test code = 5.0 g/dL 3.5-5 0790930174) ALK PHOS (test code = 92 U/L 34-122 7861864524) ALTv (test code = 64 U/L 5-35 H 1742-6) AST(SGOT) (test code = 66 U/L 13-40 H 2599354913) eGFR Calculation mL/min/1.73m2 (Non-) (test code = 1925311631) eGFR Calculation mL/min/1.73m2 () (test code = 8437621668) TANESHA (test code = TANESHA) Association of Glomerular Filtration Rate (GFR) and Staging of Kidney Disease* + --+ --+ ------+| GFR (mL/min/1.73 m2) ?| With Kidney Damage ?| ?Without Kidney Damage+ --------+ --------+ +| ?>90 ?| ?Stage one ?| ? Normal ?+ ---+ ---+ -------+| ?60-89 ?| ?Stage two ?| ? Decreased GFR ? + --+ --+ ------+| ?30-59 ?| ?Stage three ?| ? Stage three ? + --+ --+ ------+| ?15-29 ?| ?Stage four ? | ? Stage four ?+ ---+ ---+ -------+| ?<15 (or dialysis) ? ?| ?Stage five ? | ? Stage five ?+ ---+ ---+ -------+ *Each stage assumes the associated GFR level has been in effect for at least three months. ?Stages 1 to 5, with or without kidney disease, indicate chronic kidney disease. Notes: Determination of stages one and two (with eGFR >59mL/min/1.73 m2) requires estimation of kidney damage for at least three months as defined by structural or functional abnormalities of the kidney, manifested by either:Pathological abnormalities or Markers of kidney damage (including abnormalities in the composition of the blood or urine or abnormalities in imaging tests). Lab Interpretation Abnormal (test code = 45682-0) [facility] / [facility] - DRUG SCREEN [id number] 01:41:00 Test Item Value Reference Range Interpretation Comments BENZO U (test code = Presumptive Positive Negative A 9071303017) MICHEL U (test code = Negative Negative 9773611921) AMPHET (test code = Negative Negative 5215446056) THC (test code = Negative Negative 3863928990) METHADONE (test code = Negative Negative 2729611865) Meth U (test code = Negative Negative 1131959852) OPIATES (test code = Negative Negative 8283089646) Cocaine Metabolite (test Negative Negative code = 6136412308) PROPOXY (test code = Negative Negative 7702733539) Tric U (test code = Negative Negative 9382126327) PCP (test code = Negative Negative 7326680493) OXYCOD (test code = Negative Negative 0132504398) TANESHA (test code = TANESHA) Urine Drug Cutoff Ranges Benzodiazepines: ? ? 150 ng/mLBarbiturates: ?200 ng/mLAmphetamine: ? 500 ng/mLCannabinoids: ?50 ?ng/mLMethadone: ? 200 ng/mLMethamphetamine: ? ? 500 ng/mL Opiates: ? 100 ng/mL or 2000 ng/mLCocaine: ? 150 ng/mLPropoxyphene: ?300 ng/mLTricyclics: ?300 ng/mLOxycodone: ? 100 ng/mLPCP: ? 25 ?ng/mL The results are to be used only for medical (i.e., treatment) purposes. Unconfirmed screening results must not be used for non-medical purposes (e.g., employment testing, legal testing). Lab Interpretation (test Abnormal code = 29651-1) [facility] CenterACETAMINOPHEN2021-01-06 01:37:00 Test Item Value Reference Range Interpretation Comments ACETAMINOP (test code = <10.0 10-30 L 6690626093) TANESHA (test code = TANESHA) Toxic: Greater than 200 ug/mL @ 4 hour post ingestion or greater than 50 ug/mL @ 12 hour post ingestion Lab Interpretation (test Abnormal code = 23547-8) [facility] CenterSALICYLATE2021-01-06 01:36:00 Test Item Value Reference Range Interpretation Comments SALICYLATE (test code <10 mg/L = 6048501813) TANESHA (test code = TANESHA) Therapeutic Range: ? Analgesic and Antipyretic Use ? 20-100 mg/L ? ? Anti-Inflammatory Use ? 100-250 mg/L Toxic Range: ? Greater than 300 mg/L [facility] CenterETHANOL2021-01-06 01:35:00 Test Item Value Reference Range Interpretation Comments ALCOHOL (test code = <10 mg/dL 9670637367) TANESHA (test code = TANESHA) <10 Ievicais20-995 Toxic>100 Depression of TUBE WRAPPER>400 Fatalities Reported [facility] CenterAMMONIA, [id number] 01:12:00 Test Item Value Reference Range Interpretation Comments AMMONIA (test code = <9 9-33 L Slight hemolysis 2818073157) Lab Interpretation (test Abnormal code = 80205-4) [facility] CenterUrinalysis2019-09-02 16:31:00 Test Item Value Reference Range Interpretation Comments APPEARANCE (test code = Clear Clear 9038839866) COLOR (test code = Yellow Yellow 3678608805) PH (test code = 4.8-8.0 0546924019) SP GRAVITY (test code = <=1.005 1.003-1.030 1464374105) GLU U QUAL (test code = Negative Negative 5813964140) BLOOD (test code = Negative Negative 7292526823) KETONES (test code = Negative Negative 0971704508) PROTEIN (test code = Negative Negative 2887-8) UROBILIN (test code = 0.2 mg/dL See_Comment [Auto mated message] 0049118617) The system [employer] generated this result transmit carol reference range : 0-1.0 mg/dL. Th e reference range was not used to interpret this result as normal/abnormal . BILIRUBIN (test code = Negative Negative 5408679937) NITRITE (test code = Negative Negative 3953332945) LEUK EDINSON (test code = Negative Negative 7518409647) RBC/HPF (test code = See_Comment [Autom ated message] 8071385390) The system [employer] generated this result transmit carol reference range : 0 - 3 HPF. The refe rence range was not u sed to interpret th is result as normal/abnormal . WBC/HPF (test code = See_Comment [Autom ated message] 2674213671) The system [employer] generated this result transmit carol reference range : 0 - 5 HPF. The refe rence range was not u sed to interpret th is result as normal/abnormal . BACTERIA (test code = Negative Negative 4266095212) Lab Interpretation (test Normal code = 58279-0) [facility] Metabolic Panel (NA, K, CL, CO2, GLUCOSE, BUN, CREATININE, CA)2019-06-08 16:00:00 Test Item Value Reference Range Interpretation Comments NA (test code = 140 mmol/L 135-145 5979186656) K (test code = 3.7 mmol/L 3.5-5 1536238166) CL (test code = 99 mmol/L 98-108 7050235487) CO2 TOTAL (test code = 27 mmol/L 23-31 6478549514) AGAP (test code = 2-16 7642410316) BUN (test code = 12 mg/dL 7-23 5888993147) GLUCOSE (test code = 94 mg/dL 70-110 9792960292) CREATININE (test code 0.61 mg/dL 0.5-1.04 = 5444310038) CALCIUM (test code = 9.4 mg/dL 8.6-10.6 9453473998) eGFR Calculation mL/min/1.73m2 (Non-) (test code = 5387361332) eGFR Calculation mL/min/1.73m2 () (test code = 5889378599) TANESHA (test code = TANESHA) Association of Glomerular Filtration Rate (GFR) and Staging of Kidney Disease*+ ---------+ --------+ +| GFR (mL/min/1.73 m2)?| With Kidney Damage?|?Without Kidney Damage+ -------+ ------+ ---------+|?>90?|?Stage one?|? Normal?+ --------+ -------+ +|?60-89?|?St age two?|? Decreased GFR? + -+ + ---+|?30-59?|?Stage three?|? Stage three? + -+ + ---+|?15-29?|?Stage four? |? Stage four?+ ------+ -----+ --------+|?<15 (or dialysis)?|?Stage five? |? Stage five?+ ------+ -----+ --------+*Each stage assumes the associated GFR level has been in effect for at least three months.?Stages 1 to 5, with or without kidney disease, indicate chronic kidney disease.Notes: Determination of stages one and two (with eGFR >59mL/min/1.73 m2) requires estimation of kidney damage for at least three months as defined by structural or functional abnormalities of the kidney, manifested by either:Pathological abnormalities or Markers of kidney damage (including abnormalities in the composition of the blood or urine or abnormalities in imaging tests). [facility] CenterLipase [id number] 16:00:00 Test Item Value Reference Range Interpretation Comments LIPASE (test code = 8061767971) 120 U/L 0-220 Lab Interpretation (test code = Normal 78058-4) [facility] CenterHepatic Function Panel (ALB, T.PRO, BILI T, BU/BC, ALT, AST, ALK PHOS)2019-06-08 15:59:00 Test Item Value Reference Range Interpretation Comments TOTAL BILI (test code = 9379256253) 0.4 mg/dL 0.1-1.1 BILI UNCON (test code = 0422528142) 0.2 mg/dL 0.1-1.1 BILI CONJ (test code = 7380278304) 0.0 mg/dL 0-0.3 T PROTEIN (test code = 6577077414) 7.7 g/dL 6.3-8.2 ALBUMIN (test code = 9420126209) 4.8 g/dL 3.5-5 ALK PHOS (test code = 9995151517) 86 U/L 34-122 ALT(SGPT) (test code = 1272087251) 21 U/L 9-51 AST(SGOT) (test code = 9040882833) 28 U/L 13-40 Lab Interpretation (test code = Normal 68718-7) [facility] CenterCBC WITH [id number] 15:47:00 Test Item Value Reference Range Interpretation Comments WBC (test code = See_Comment [Automated message] 6690-2) The system [employer] generated this result transmitted ref erence range: 4.30 - 1 1.10 10*3/?L. The re ference range was not u sed to interpret this result as normal/abnor mal. RBC (test code = See_Comment [Automated message] 789-8) The system [employer] generated this result transmitted ref erence range: 3.93 - 5 .25 10*6/?L. The re ference range was not u sed to interpret this result as normal/abnor mal. HGB (test code = 12.6 g/dL 11.6-15 718-7) HCT (test code = 37.9 % 35.7-45.2 4544-3) MCV (test code = 94.0 fL 80.6-95.5 787-2) MCH (test code = 31.3 pg 25.9-32.8 785-6) MCHC (test code = 33.2 g/dL 31.6-35.1 786-4) RDW-SD (test code 43.8 fL 39-49.9 = 00402-6) RDW-CV (test code 12.6 % 12-15.5 = 788-0) PLT (test code = See_Comment [Automated message] 777-3) The system [employer] generated this result transmitted ref erence range: 166 - 35 8 10*3/?L. The re ference range was not u sed to interpret this result as normal/abnor mal. MPV (test code = 10.6 fL 9.5-12.9 72800-0) NRBC/100 WBC (test See_Comment [Automat ed message] code = 8996313175) The syste m which generated this result transmitted ref erence range: 0.0 - 10 .0 /100 WBCs. The refer ence range was not u sed to interpret this result as normal/abnor mal. NRBC x10^3 (test <0.01 See_Comment [Automated message] code = 6611548834) The syste m which generated this result transmitted ref erence range: 10*3/?L. The reference range was not used to interpr et this result as normal/abnormal . GRAN MAT (NEUT) % 50.2 % (test code = 770-8) IMM GRAN % (test 0.40 % code = 7923197863) LYMPH % (test code 33.0 % = 736-9) MONO % (test code 10.8 % = 5905-5) EOS % (test code = 4.3 % 713-8) BASO % (test code 1.3 % = 706-2) GRAN MAT 2.33 10*3/uL 1.88-7.09 x10^3(ANC) (test code = 7937871527) IMM GRAN x10^3 <0.03 0-0.06 (test code = 1340972730) LYMPH x10^3 (test 1.53 10*3/uL 1.32-3.29 code = 731-0) MONO x10^3 (test 0.50 10*3/uL 0.33-0.92 code = 742-7) EOS x10^3 (test 0.20 10*3/uL 0.03-0.39 code = 711-2) BASO x10^3 (test 0.06 10*3/uL 0.01-0.07 code = 704-7) [facility]
[2021-12-16] MEDS ORDERED: ONDANSETRON 4 MG/2 ML VIAL ONE (22:57)
[2021-12-16] MEDS ORDERED: MORPHINE 2 MG/ML SYR ONE (22:57)
[2021-12-16 23:35] LABS: Absolute Lymphocytes (CBC) 1.1 K/uL (0.7-4.9); Hematocrit 37.6 % (36.0-45.0); Lymphocytes % 25.2 % (15.3-44.8); MPV 10.3 fL (7.6-11.3); RBC Red Blood Cell Count 3.97 M/uL (3.86-4.86)
[2021-12-16 23:51] LABS: BUN Blood Urea Nitrogen 7 mg/dL (7-18); Bicarbonate 30 mmol/L (21-32); Glucose Level 83 mg/dL (74-106); Potassium 3.7 mmol/L (3.5-5.1); Sodium Level 134 mmol/L (136-145)
[2021-12-17] MEDS ORDERED: MORPHINE 2 MG/ML SYR ONE ×2 (00:58→03:09)
--- NOTE | 2021-12-17 03:23 | EDPHYS ---
Physician Documentation [facility] Name: Chica Flores Age: 66 yrs Sex: Female : 1955 Arrival Date: 12/16/2021 Time: 22:18 Bed 26 Private MD: ED Physician Devin Lockwood HPI: 12/16 22:40 This 66 yrs old Female presents to ER via Wheelchair with complaints of Fall Injury. rn 22:40 Details of fall: The patient fell from an upright position, while standing. Onset: The rn symptoms/episode began/occurred 3 day(s) ago. Associated injuries: The patient sustained injury to the head, neck injury, upper back injury, injury to the low back, injury to the abdomen. Severity of symptoms: At their worst the symptoms were moderate, in the emergency department the symptoms are unchanged. The patient has experienced similar episodes in the past. The patient has not recently seen a physician. Pt reports fall from standing, slipped, landed on back, unsure if hit head, was 3 days ago, no LOC, no blood thinners, reports pain to entire spine/head/abdomen. . Historical: - Allergies: 22:32 PENICILLINS; st1 22:32 steroids; Allergy to Oral Steroids, IV is fine; st1 - PMHx: 22:32 ADD/ADHD; Anxiety; Colitis; Depression; Osteoporosis; PTSD; ulcerative ulcer; st1 - Immunization history: Last tetanus immunization: unknown. - Social history:: Smoking status: Patient denies any tobacco usage or history of. Patient/guardian denies using alcohol, street drugs, IV drugs, tobacco products. - Family history:: not pertinent. - Hospitalizations: : No recent hospitalization is reported. ROS: 22:40 Constitutional: Negative for fever, chills, and weight loss, Eyes: Negative for injury, rn pain, redness, and discharge, Neck: + neck pain Cardiovascular: Negative for chest pain, palpitations, and edema, Respiratory: Negative for shortness of breath, cough, wheezing, and pleuritic chest pain, Abdomen/GI: Negative for nausea, vomiting, diarrhea, and constipation, Back: + back pain MS/Extremity: Negative for injury and deformity, Skin: Negative for injury, rash, and discoloration, Neuro: + headache and generalized weakness Exam: 22:40 Constitutional: This is a well developed, well nourished patient who is awake, alert, rn and in no acute distress. Head/Face: Normocephalic, atraumatic. Eyes: Periorbital areas with no swelling, redness, or edema. ENT: No oral trauma Neck: Trachea midline, no midline cervical tenderness Chest/axilla: Normal chest wall appearance and motion. Nontender with no deformity. No lesions are appreciated. Cardiovascular: Regular rate and rhythm . No pulse deficits. Respiratory: No increased work of breathing, no retractions or nasal flaring. Abdomen/GI: soft, non-tender, non-distended Back: + tenderness along both sides of cspine/tspine/lspine without focal spinal tenderness or stepoff. Skin: Warm, dry MS/ Extremity: Pulses equal, no cyanosis. Neurovascular intact. Full, normal range of motion. Equal circumference. Neuro: Awake and alert, GCS 15, oriented to person, place, time, and situation. Cranial nerves II-XII grossly intact. Motor strength 4/5 in all extremities. Sensory grossly intact. Walks with cane. Vital Signs: 22:28 BP 141 / 91; Pulse 66; Resp 16; Temp 97.8; Pulse Ox 100% on R/A; Weight 52.16 kg; st1 Height 5 ft. 6 in. (167.64 cm); Pain 10/10; 22:45 BP 141 / 91 LA Supine (auto/reg); Pulse 46 MON; Resp 20 S; Pulse Ox 100% on R/A; Pain tk1 10/10; 23:25 Pain 5/10; tk1 12/17 00:02 BP 135 / 84; Pulse 55 MON; Resp 18; Temp 98.2; Pulse Ox 99% on R/A; Pain 10/10; tk1 00:41 Pain 7/10; tk1 01:25 BP 140 / 76 LA Supine (auto/reg); Pulse 56 MON; Resp 18 S; Pulse Ox 100% on R/A; Pain tk1 5/10; 01:27 Pain 5/10; tk1 03:00 BP 149 / 80 LA Supine (auto/reg); Pulse 67 MON; Resp 20 S; Pulse Ox 100% on R/A; Pain tk1 8/10; 04:04 Pain 5/10; tk1 12/16 22:28 Body Mass Index 18.56 (52.16 kg, 167.64 cm) st1 12/17 00:02 New (FACES) tk1 Elliott Coma Score: 12/16 22:28 Eye Response: spontaneous(4). Verbal Response: oriented(5). Motor Response: obeys st1 commands(6). Total: 15. Trauma Score (Adult): 22:28 Eye Response: spontaneous(1); Verbal Response: oriented(1); Motor Response: obeys st1 commands(2); Systolic BP: > 89 mm Hg(4); Respiratory Rate: 10 to 29 per min(4); Elliott Score: 15; Trauma Score: 12 MDM: 22:22 Patient medically screened. rn 12/17 03:18 Differential diagnosis: contusion, fracture, sprain, strain. Data reviewed: vital rn signs, nurses notes, lab test result(s), radiologic studies, CT scan, and as a result, I will discharge patient. Counseling: I had a detailed discussion with the patient and/or guardian regarding: the historical points, exam findings, and any diagnostic results supporting the discharge/admit diagnosis, lab results, radiology results, the need for outpatient follow up, to return to the emergency department if symptoms worsen or persist or if there are any questions or concerns that arise at home. Response to treatment: the patient's symptoms have markedly improved after treatment, and as a result, I will discharge patient. ED course: Pt with transverse T12 body fracture, is 3 days old from fall, no neurological symptoms or complaints, patient states only limitation is to pain. Fracture not displaced and does not show encroachment on spinal cord. Offered transfer to [facility] for spinal consultation, patient does not want to go, states only came for pain medication. Had long talk with her regarding pain medication and likelihood of this injury leading to chronic and protracted pain. Return precautions given, especially if any neurological symptoms develop. Not on anticoagulation. . 12/16 22:34 Order name: CBC with Diff; Complete Time: 23:46 rn 12/16 22:34 Order name: Basic Metabolic Panel; Complete Time: 00:53 rn 12/16 22:34 Order name: CT Traumagram (Head C Spine CAP wo con) rn 12/16 22:34 Order name: IV Start; Complete Time: 23:08 rn Administered Medications: 12/16 23:05 Drug: morphine 2 mg Route: IVP; Rate: 1 mg/min; Infused Over: 2 mins; Site: right tk1 antecubital; 23:25 Follow up: Pain 5/10; Response: Pain is decreased; RASS: Alert and Calm (0) tk1 12/17 00:41 Follow up: Pain 7/10 Adult; Response: No adverse reaction; Pain is decreased; RASS: tk1 Alert and Calm (0) 12/16 23:07 Drug: Zofran (Ondansetron) 4 mg Route: IVP; Rate: 2 mg/min; Infused Over: 2 mins; Site: tk1 right antecubital; 23:25 Follow up: Response: No adverse reaction tk1 12/17 00:41 Follow up: Response: No adverse reaction tk1 00:58 Drug: morphine 2 mg Route: IVP; Rate: 1 mg/min; Infused Over: 2 mins; Site: right tk1 antecubital; 01:27 Follow up: Pain 5/10 Adult; Response: Pain is decreased tk1 03:09 Drug: morphine 2 mg Route: IVP; Rate: 1 mg/min; Infused Over: 2 mins; Site: right tk1 antecubital; 03:41 Drug: morphine 2 mg Route: IVP; Rate: 1 mg/min; Infused Over: 2 mins; Site: right tk1 antecubital; 04:04 Follow up: Pain 5/10 Schreiber-Max (FACES); Response: Pain is decreased tk1 Disposition Summary: 12/17/21 03:22 Discharge Ordered Location: Home rn Problem: new rn Symptoms: have improved rn Condition: Stable rn Diagnosis - Fracture of thoracic vertebra - T12, nondisplaced rn Followup: rn - With: Saurabh Glez MD - When: 2 - 3 days - Reason: Recheck today's complaints, Re-evaluation by your physician Discharge Instructions: - Discharge Summary Sheet rn - Thoracic Spine Fracture rn Forms: - Medication Reconciliation Form rn - Thank You Letter rn - Antibiotic internet marketing consultant - Prescription Opioid Use rn Prescriptions: - Tramadol 50 mg Oral Tablet - take 1 tablet by ORAL route every 8 hours as needed; 12 tablet; Refills: 0, rn Product Selection Permitted Signatures: Dispatcher [employer] Devin Phillips MD MD rn Kirby, Tammie tk1 Tingle, Gris, RN RN st1
--- NOTE | 2021-12-17 03:23 | ER ---
Nurse's Notes [facility] Name: Chica Flores Age: 66 yrs Sex: Female : 1955 Arrival Date: 12/16/2021 Time: 22:18 Bed 26 Private MD: Diagnosis: Fracture of thoracic vertebra-T12, nondisplaced Presentation: 12/16 22:28 Chief complaint: Patient states: I fell in my kitchen on a tile floor 3 days ago st1 landing on by back and I hit my head on the floor. Care prior to arrival: None. Mechanism of Injury: Fall fell from standing position. Trauma event details: Injury occurred: December 14, 2021. 22:28 Acuity: ANITA 3 22:28 Method Of Arrival: Wheelchair 22:32 Coronavirus screen: Vaccine status: Patient reports receiving the 2nd dose of the covid st1 vaccine. patient does not know what brand COVID vaccination she received. Ebola Screen: No symptoms or risks identified at this time. Initial Sepsis Screen: Does the patient meet any 2 criteria? No. Patient's initial sepsis screen is negative. Does the patient have a suspected source of infection? No. Patient's initial sepsis screen is negative. Risk Assessment: Do you want to hurt yourself or someone else? Patient reports no desire to harm self or others. Onset of symptoms. Trauma Activation: Not Applicable Physician: ED Physician; Name: ; Notified At: ; Arrived At: Physician: General Surgeon; Name: ; Notified At: ; Arrived At: Physician: Radiology; Name: ; Notified At: ; Arrived At: Physician: Respiratory; Name: ; Notified At: ; Arrived At: Physician: Lab; Name: ; Notified At: ; Arrived At: Historical: - Allergies: 22:32 PENICILLINS; st1 22:32 steroids; Allergy to Oral Steroids, IV is fine; st1 - PMHx: 22:32 ADD/ADHD; Anxiety; Colitis; Depression; Osteoporosis; PTSD; ulcerative ulcer; st1 - Immunization history: Last tetanus immunization: unknown. - Social history:: Smoking status: Patient denies any tobacco usage or history of. Patient/guardian denies using alcohol, street drugs, IV drugs, tobacco products. - Family history:: not pertinent. - Hospitalizations: : No recent hospitalization is reported. Screenin:28 Abuse screen: Denies threats or abuse. Tuberculosis screening: No symptoms or risk st1 factors identified. 22:34 Nutritional screening: No deficits noted. st1 22:45 Fall Risk Fall in past 12 months (25 points). Secondary diagnosis (15 points) impaired tk1 mobility, IV access (20 points). Ambulatory Aid- Crutches/Cane/Walker (15 pts). Gait- Impaired (20 pts.). Mental Status- Oriented to own ability (0 pts). Total Marshall Fall Scale indicates High Risk Score (45 or more points). Fall prevention measures have been instituted. Side Rails Up X 2 Placed Close to Nursing Station As available patient and family educated on Fall Prevention Program and Strategies. Primary Survey: 22:28 NO uncontrolled hemorrhage observed. A: The patient is alert. Airway: patent. st1 Breathing/Chest: Respiratory pattern: regular. Circulation: Pulses: Skin color: pink. Disability Alert. Exposure/Environment: A warming method has been applied: A warm blanket has been provided to the patient. Assessment: 22:28 General: Appears in no apparent distress. uncomfortable, slender, well groomed, st1 Behavior is calm, cooperative, appropriate for age. Pain: Complains of pain in Back Pain does not radiate. Pain currently is 10 out of 10 on a pain scale. Neuro: No deficits noted. EENT: No deficits noted. Respiratory: No deficits noted. Musculoskeletal: Denies patient walks with a cane. 22:45 General: Appears in no apparent distress. uncomfortable, slender, well groomed, tk1 Behavior is calm, cooperative, appropriate for age. Pain: Complains of pain in back Pain does not radiate. Pain currently is 10 out of 10 on a pain scale. Quality of pain is described as sharp, Pain began 2-3 days ago. Neuro: No deficits noted. Level of Consciousness is awake, alert, obeys commands, Oriented to person, place, time, situation, Appropriate for age Pressurizer are equal bilaterally Gait is walks with cane. Cardiovascular: Capillary refill < 3 seconds is brisk in bilateral fingers Clubbing of nail beds is absent. Respiratory: No deficits noted. Airway is patent Trachea midline Respiratory effort is even, unlabored, Respiratory pattern is regular, symmetrical. GI: No deficits noted. No signs and/or symptoms were reported involving the gastrointestinal system. : No deficits noted. No signs and/or symptoms were reported regarding the genitourinary system. EENT: No deficits noted. No signs and/or symptoms were reported regarding the EENT system. Musculoskeletal: Reports Walks with cane always. Verbalized difficulty to even walk since falling because of extreme pain to lower back. 12/17 00:06 Reassessment: Patient and/or family updated on plan of care and expected duration. Pain tk1 level reassessed. Patient is alert, oriented x 3, equal unlabored respirations, skin warm/dry/pink. Patient placed on bedpan to void. C/O pain with use. Pain: Complains of pain in back Pain does not radiate. Pain currently is 9 out of 10 on a pain scale. Quality of pain is described as sharp. 03:07 Reassessment: Patient and/or family updated on plan of care and expected duration. Pain tk1 level reassessed. Patient is alert, oriented x 3, equal unlabored respirations, skin warm/dry/pink. Pain: Complains of pain in back Pain does not radiate. Pain currently is 8 out of 10 on a pain scale. Quality of pain is described as sharp, Dr. Lockwood updated. new order received. 03:15 Reassessment: Assisted onto bedpan to void. Patient voided another 350mls clear yellow tk1 urine. 03:31 Reassessment: D/C per MD order. Discharge/Prescription instructions given to patient. tk1 Verbalized understanding. Patient attempting to call son or daughter for transportation home. 03:42 Reassessment: Patient remains in room awaiting ride. tk1 04:03 Reassessment: Patient's arrived. Assisted to and transported to [facility]. tk1 Assisted into car with for transport home. Vital Signs: 12/16 22:28 BP 141 / 91; Pulse 66; Resp 16; Temp 97.8; Pulse Ox 100% on R/A; Weight 52.16 kg; st1 Height 5 ft. 6 in. (167.64 cm); Pain 10/10; 22:45 BP 141 / 91 LA Supine (auto/reg); Pulse 46 MON; Resp 20 S; Pulse Ox 100% on R/A; Pain tk1 10; 23:25 Pain /10; tk1 12/17 00:02 BP 135 / 84; Pulse 55 MON; Resp 18; Temp 98.2; Pulse Ox 99% on R/A; Pain 10/10; tk1 00:41 Pain 7/10; tk1 01:25 BP 140 / 76 LA Supine (auto/reg); Pulse 56 MON; Resp 18 S; Pulse Ox 100% on R/A; Pain tk1 5/10; 01:27 Pain 5/10; tk1 03:00 BP 149 / 80 LA Supine (auto/reg); Pulse 67 MON; Resp 20 S; Pulse Ox 100% on R/A; Pain tk1 8/10; 04:04 Pain 5/10; tk1 03 22:28 Body Mass Index 18.56 (52.16 kg, 167.64 cm) st1 12/17 00:02 New (FACES) tk1 [place] Coma Score: 03 22:28 Eye Response: spontaneous(4). Verbal Response: oriented(5). Motor Response: obeys st1 commands(6). Total: 15. Trauma Score (Adult): 22:28 Eye Response: spontaneous(1); Verbal Response: oriented(1); Motor Response: obeys st1 commands(2); Systolic BP: > 89 mm Hg(4); Respiratory Rate: 10 to 29 per min(4); [place] Score: 15; Trauma Score: 12 ED Course: 22:18 Patient arrived in ED. wm 22:22 Devin Lockwood MD is Attending Physician. rn 22:23 Verna Clayton is Primary Nurse. tk1 22:28 Allergy band placed. Fall risk band placed. Bed in low position. Call light in reach. st1 Side rails up X 1. 22:28 Patient maintains SpO2 saturation greater than 95% on room air. st1 22:29 Triage completed. st1 22:32 Arm band placed on right wrist. st1 22:34 Thermoregulation: warm blanket given to patient. st1 22:45 Pulse ox on. NIBP on. tk1 22:45 No provider procedures requiring assistance completed. tk1 23:00 Inserted saline lock: 20 gauge in right antecubital area, using aseptic technique. tk1 Blood collected. 23:08 Basic Metabolic Panel Sent. tk1 23:08 CBC with Diff Sent. tk1 12/17 00:08 CT Traumagram (Head C Spine CAP wo con) In Process Unspecified. EDMS 03:21 Saurabh Glez MD is Referral Physician. rn 03:31 IV discontinued, intact, bleeding controlled, No redness/swelling at site. Pressure tk1 dressing applied. Administered Medications: 12/16 23:05 Drug: morphine 2 mg Route: IVP; Rate: 1 mg/min; Infused Over: 2 mins; Site: right tk1 antecubital; 23:25 Follow up: Pain 5/10; Response: Pain is decreased; RASS: Alert and Calm (0) tk1 12/17 00:41 Follow up: Pain 7/10 Adult; Response: No adverse reaction; Pain is decreased; RASS: tk1 Alert and Calm (0) 12/16 23:07 Drug: Zofran (Ondansetron) 4 mg Route: IVP; Rate: 2 mg/min; Infused Over: 2 mins; Site: tk1 right antecubital; 23:25 Follow up: Response: No adverse reaction tk1 12/17 00:41 Follow up: Response: No adverse reaction tk1 00:58 Drug: morphine 2 mg Route: IVP; Rate: 1 mg/min; Infused Over: 2 mins; Site: right tk1 antecubital; 01:27 Follow up: Pain 5/10 Adult; Response: Pain is decreased tk1 03:09 Drug: morphine 2 mg Route: IVP; Rate: 1 mg/min; Infused Over: 2 mins; Site: right tk1 antecubital; 03:41 Drug: morphine 2 mg Route: IVP; Rate: 1 mg/min; Infused Over: 2 mins; Site: right tk1 antecubital; 04:04 Follow up: Pain 5/10 Schreiber-Max (FACES); Response: Pain is decreased tk1 Output: 01:22 Urine: 600ml; Total: 600ml. tk1 Outcome: 03:22 Discharge ordered by . rn 03:31 Discharged to home via wheelchair, with family. tk1 03:31 Condition: stable 03:31 Discharge instructions given to patient, family, Instructed on discharge instructions, follow up and referral plans. medication usage, Demonstrated understanding of instructions, follow-up care, medications. 04:04 Patient left the ED. tk1 Signatures: Dispatcher [employer] EDIA Devin Lockwood MD MD rn Marsh, Wendy wm Kirby Verna tk1 Gris Dupont RN RN st1 Corrections: (The following items were deleted from the chart) 12/16 22:34 22:34 General: Appears st1 st1
[2021-12-17 04:44] VITALS: TEMP 98.2
[2021-12-17 04:50] VITALS: O2SAT 100
[2021-12-17 04:52] VITALS: BP 149/80
--- NOTE | 2021-12-18 11:05 | RAD REPORT ---
EXAM DESCRIPTION: CT - Head C Spine Cap Donnie Carbajal - 12/17/2021 6:40 am CLINICAL HISTORY: Fall from standing, mid/lower back pain, abd pain, pelvic p COMPARISON: CT chest abdomen pelvis June 21, 2021. TECHNIQUE: Multiple helical axial tomographic images were obtained of the head, cervical spine, ches t, abdomen, and pelvis without intravenous contrast. Coronal and sagittal reformatted images were obt ained. This exam was performed according to our departmental dose-optimization program, which include s automated exposure control, adjustment of the mA and/or kV according to patient size and/or use of iterative reconstruction technique. FINDINGS: Head and cervical spine: There is no acute intracranial hemorrhage. No mass. No midline shift. No ventriculomegaly. Lua-white matter differentiation is maintained. Paranasal sinuses are clear. Mastoid air cells and middle ear spaces are clear. Orbits and orbital co ntents are unremarkable. No acute calvarial fracture. No evidence of an acute fracture of the cervical spine. Vertebral body heights appear maintained. The re is multilevel disc space narrowing and osteophyte formation. Right-sided facet joint degenerative changes noted. There is 2 mm anterior subluxation of C2 relative to C3, 2 mm anterior subluxation of C3 relative to C4, 3 mm posterior subluxation of C4 relative to C5, and 1 mm posterior subluxation of C5 relative to C6. There is multilevel neural foraminal and central canal narrowing. Carotid atherosclerosis is present. CHEST: Thyroid gland: unremarkable. Axilla: unremarkable. Aorta: Aortic atherosclerosis is present. No evidence of aortic aneurysm. Mediastinum: Unremarkable. No adenopathy. Heart: Heart is normal in size. Coronary artery atherosclerosis noted. Lungs/airways: No consolidation. Airways are patent. Pleural spaces: No significant pleural effusion. No pneumothorax. Osseous: There is an acute, transverse fracture extending through the mid vertebral body of T12 witho ut significant displacement or retropulsion. Soft tissues: Small paravertebral hematoma near the T12 fracture noted. Abdomen and pelvis: Liver: Homogenous attenuation is demonstrated. Gallbladder/biliary: Gallbladder appears unremarkable. No calcified gallstones. No evidence of biliar y ductal dilatation. Pancreas: Atrophic changes noted. Spleen: Unremarkable. Adrenals: Unremarkable. Kidneys and ureters: There are a few punctate stones right renal stones. There is suggestion of mild bilateral hydronephrosis versus small bilateral renal peripelvic cysts. No obstructing ureteral stone . Bladder: Unremarkable. Pelvic organs: Unremarkable. Bowel: Colon appears mildly distended with fluid/fecal material. No evidence of bowel obstruction. No bowel wall thickening. Appendix is not well-seen. Peritoneum: No free air. No significant free fluid. Lymph nodes: Unremarkable. Vasculature: Aortic atherosclerosis is present. Soft tissues: Unremarkable. Bones: No obvious acute fracture. Mildly depressed appearance of the superior endplate of L1 is uncha nged. Degenerative changes of the spine noted. IMPRESSION: 1. No acute intracranial process. 2. No evidence of an acute fracture of the cervical spine. Multilevel degenerative changes of the c ervical spine with multilevel mild subluxation. 3. Acute, transverse fracture through the T12 vertebral body. 4. No evidence of an acute process within the remainder of the chest, abdomen, or pelvis. 5. Right-sided nephrolithiasis. Mild bilateral hydronephrosis versus small renal peripelvic cysts. THIS REPORT CONTAINS FINDINGS THAT MAY BE CRITICAL TO PATIENT CARE: The findings were verbally discu ssed via telephone conference with Dr. Lockwood by Dr. Davey at 0103 hours central time on December 17, 2021. The results were acknowledged and understood. Electronically signed by: Santiago Davey MD 12/17/2021 1:04 AM [employer] Due to temporary technical issues with the PACS/Fluency reporting system, reports are being signed by the in house radiologist without review as a courtesy to ensure prompt reporting. The interpreting r adiologist is fully responsible for the content of the report.
== END 2021-12-17 04:04 | disposition home or self-care (01) ==
LOC: ER 22:13
DX: S22.081A Stable burst fracture of T11-T12 vertebra, initial encounter for closed fracture (principal); W01.0XXA Fall on same level from slipping, tripping and stumbling without subsequent striking against object, initial encounter; Z88.0 Allergy status to penicillin; Z88.8 Allergy status to other drugs, medicaments and biological substances
CPT/HCPCS: 85025; 80048; 36415; 70450; 71250; 72125; 96375; 96374; 99284; J2270 ×3; J2405

== ENCOUNTER 2021-12-17 21:43 | Emergency (ER) | payer BC ==
--- OUTSIDE RECORDS SUMMARY | 2021-12-17 22:00 | XMS REPORT | Continuity of Care Document ---
:1955 Author Organization [place] [facility] t Address [address] [place] [address] Care Team Providers Name Role Phone Doctor Unassigned, Name Attending Clinician Unavailable Olga JONES M Attending Clinician Singer BERMUDEZ Attending Clinician Grupo PRICE Attending Clinician Kem Pierce MD Attending Clinician Mara PRICE Attending Clinician Attending Clinician Unavailable SYDNIE Attending Clinician Unavailable Zak Rosen DO Attending Clinician Germán JONES Attending Clinician Unavailable Zak ROSEN Attending Clinician Unavailable Kem Pierce MD Admitting Clinician SYDNIE Admitting Clinician Unavailable Payers Payer Name Policy Type Policy Number Effective Date Expiration Date Ronaldo ROSALES O [id number] 2017 00:00:00 Advance Directives Directive Decision Effective Termination Comments Source Date Date Healthcare Agents on N/A [facility] FileNameReFoundation [facility] RelationshipCommunicationOutagamie County Health Center Care [phone] (Mobile) Problems Condition Condition Condition Status Onset Resolution Last Treating Co mments Source Name Details Category Date Date Treatment Clinician Date E46 E46 Disease Active Univers Unspecifie Unspecifie 10-14 it y of d severe d severe 00:00: [place] protein-ca protein-ca 00 Me dical rohit bee [place] malnutriti malnutriti on on AMS AMS Disease Active Univers (altered (altered 10-13 ity of mental mental 00:00: [place] status) status) 00 Medical [place] No known No known Disease Unive rs active active ity of problems problems [facility] Allergies, Adverse Reactions, Alerts Allergy [...] 2-13 ity of 00:00: [place] 00 Medical [place] Social History Social Habit Start Date Stop Date Quantity Comments Source Exposure to Not sure [facility] SARS-CoV-2 (event) Medica l Branch Tobacco use and 2020-10-19 2020-10-19 Never used [facility] [place] exposure 00:00:00 00:00:00 Medical Branch History SDOH 2020-10-16 2020-10-16 13 [facility] Education 00:00:00 00:00:00 Medical Branch History SDOH 2020-10-16 2020-10-16 3 [facility] Financial 00:00:00 00:00:00 Medical Branch History SDOH Food 2020-10-16 2020-10-16 2 [facility] Worry 00:00:00 00:00:00 Medical Branch History SDOH Food 2020-10-16 2020-10-16 2 [facility] Scarcity 00:00:00 00:00:00 Medical Branch History SDOH 2020-10-16 2020-10-16 2 [facility] Transport Med 00:00:00 00:00:00 Medical Bra nch History SDOH 2020-10-16 2020-10-16 2 [facility] Transport Non-Med 00:00:00 00:00:00 Medical Branch Sex [birth year] [facility] 00:00:00 00:00:00 Medical Branch Smoking Status Start Date Stop Date Source Former smoker 2020-10-19 00:00:00 2020-10-19 00:00:00 [facility] Unknown if ever smoked [facility] Medications Ordered Filled Start Stop Current Ordering Indication Dosage Frequency Signature Comments Components Source Medication Medication Date Date Medication? Clinician (SIG) Name Name thiamine Yes [id number] 100mg Take 1 U nivers 100 mg 2-05 tablet by ity of tablet 00:00: [facility] 00 daily. Medical Branch thiamine Yes [id number] 100mg Take 1 U nivers 100 mg 2-05 tablet by ity of tablet 00:00: [facility] 00 daily. Medical Branch thiamine Yes [id number] 100mg Take 1 U nivers 100 mg 2-05 tablet by ity of tablet 00:00: [facility] 00 daily. Medical Branch thiamine Yes [id number] 100mg Take 1 U nivers 100 mg 2-05 tablet by ity of tablet 00:00: [facility] 00 daily. Medical Branch thiamine Yes [id number] 100mg Take 1 U nivers 100 mg 2-05 tablet by ity of tablet 00:00: mouth [place] 00 daily. Medical Branch thiamine Yes [id number] 100mg Take 1 U nivers 100 mg [...] mg by ity of tablet 19:18: mouth [place] 35 every 6 Medical (six) Branch hours as needed. prazosin 1 Yes 1mg Take 1 mg Un jennie mg capsule 2-04 by mouth ity o f 19:18: at [place] [address] bedtime. Medical Branch traZODone Yes 50mg Take 50 mg Un jennie 50 mg 2-04 by mouth ity of tablet 19:18: at [place] [address] bedtime. Medical Branch levETIRAcet Yes 500mg Take [...] mg by ity of tablet 19:18: mouth [place] 35 every 6 Medical (six) Branch hours as needed. prazosin 1 Yes 1mg Take 1 mg Un jennie mg capsule 2-04 by mouth ity o f 19:18: at [place] 35 bedtime. Medical Branch traZODone Yes 50mg Take 50 mg Un jennie 50 mg 2-04 by mouth ity of tablet 19:18: at [place] 35 bedtime. Medical Branch levETIRAcet Yes 500mg Take 500 U nivers am 500 mg 2-04 mg by ity of tablet 19:18: mouth 2 [place] 35 (two) Medical times Branch daily. fluoxetine 2020-0 Yes Take by Uni vers HCl (PROZAC 2-04 mouth. ity of ORAL) 19:18: [place] [address] Medical Branch gabapentin 0 Yes Take by Uni vers ER 300 mg 2-04 mouth ity of tablet, 19:18: daily. [place] extended 35 Medical release 24 Branch hr proMETHazin Yes 12.5mg Take 12.5 Univers e 25 mg 2-04 mg by ity of tablet 19:18: mouth [place] [address] every 6 Medical (six) Branch hours as needed. prazosin 1 Yes 1mg Take 1 mg Un jennie mg capsule 2-04 by mouth ity o f 19:18: at [place] [address] bedtime. Medical Branch traZODone Yes 50mg Take 50 mg Un jennie 50 mg 2-04 by mouth ity of tablet 19:18: at [place] [address] bedtime. Medical Branch levETIRAcet Yes 500mg Take 500 U nivers am 500 mg 2-04 mg by ity of tablet 19:18: mouth 2 [place] 35 (two) Medical times Branch daily. fluoxetine Yes Take by Uni vers HCl (PROZAC 2-04 mouth. ity of ORAL) 19:18: [place] [address] Medical Branch gabapentin Yes Take by Uni vers ER 300 mg 2-04 mouth ity of tablet, 19:18: daily. [place] [address] Medical release 24 Branch hr proMETHazin Yes 12.5mg Take 12.5 Univers e 25 mg 2-04 mg by ity of tablet 19:18: mouth [place] [address] every 6 Medical (six) Branch hours as needed. prazosin 1 0 Yes 1mg Take 1 mg Un jennie mg capsule 2-04 by mouth ity o f 19:18: at [place] [address] bedtime. Medical Branch traZODone 2020-0 Yes 50mg Take 50 mg Un jennie 50 mg 2-04 by mouth ity of tablet 19:18: at [place] [address] bedtime. Medical Branch levETIRAcet 0 Yes 500mg Take 500 U nivers am 500 mg 2-04 mg by ity of tablet 19:18: mouth 2 [place] 35 (two) Medical times Branch daily. fluoxetine Yes Take by Uni vers HCl (PROZAC 2-04 mouth. ity of ORAL) 19:18: [place] [address] Medical Branch gabapentin 0 Yes Take by Uni vers ER 300 mg 2-04 mouth ity of tablet, 19:18: daily. [place] extended 35 Medical release 24 Branch hr proMETHazin Yes 12.5mg Take 12.5 Univers e 25 mg 2-04 mg by ity of tablet 19:18: mouth [place] [address] every 6 Medical (six) Branch hours as needed. prazosin 1 Yes 1mg Take 1 mg Un jennie mg capsule 2-04 by mouth ity o f 19:18: at [place] [address] bedtime. Medical Branch traZODone Yes 50mg Take 50 mg Un jennie 50 mg 2-04 by mouth ity of tablet 19:18: at [place] [address] bedtime. Medical Branch levETIRAcet Yes 500mg Take 500 U nivers am 500 mg 2-04 mg by ity of tablet 19:18: mouth 2 [place] [address] (two) Medical times Branch daily. fluoxetine Yes Take by Uni vers HCl (PROZAC 2-04 mouth. ity of ORAL) 19:18: [place] [address] Medical Branch gabapentin Yes Take by Uni vers ER 300 mg 2-04 mouth ity of tablet, 19:18: daily. [place] extended Medical release 24 Branch hr proMETHazin Yes 12.5mg Take 12.5 Univers e 25 mg 2-04 mg by ity of tablet 19:18: mouth [place] [address] every 6 Medical (six) Branch hours as needed. prazosin 1 Yes 1mg Take 1 mg Un jennie mg capsule 2-04 by mouth ity o f 19:18: at [place] [address] bedtime. Medical Branch traZODone 0 Yes 50mg Take 50 mg Un jennie 50 mg 2-04 by mouth ity of tablet 19:18: at [place] [address] bedtime. Medical Branch levETIRAcet Yes 500mg Take 500 U nivers am 500 mg 2-04 mg by ity of tablet 19:18: mouth 2 [place] 35 (two) Medical times Branch daily. alprazolam 2020- No Take by Un jennie (XANAX 11-10 mouth. ity of ORAL) 16:15: 00:00 [place] 51 :00 [facility] Branch lisinopriL 2020- No 40mg Take 40 mg Univers 40 mg 11-10 by mouth ity of tablet 16:15: 00:00 daily. [place] 51 :00 [facility] Branch buPROPion 2020- No 75mg Take 75 mg U nivers 75 mg 11-10 by mouth ity of tablet 16:15: 00:00 daily. [place] 51 :00 [facility] Branch LORazepam 2 2020- Yes [id number] 10mg Take 5 Univers mg tablet 2-04 tablets by ity of 00:00: mouth 3 [place] [address] ([facility]) [facility] daily. LORazepam 2 Yes [id number] 10mg Take 5 Univers mg tablet 2-04 tablets by ity of 00:00: mouth 3 [place] [address] ([facility]) [facility] daily. LORazepam 2 Yes [id number] 10mg Take 5 Univers mg tablet 2-04 tablets by ity of 00:00: mouth 3 [place] [address] ([facility]) [facility] daily. LORazepam 2 2020- Yes [id number] 10mg Take 5 Univers mg tablet 2-04 tablets by ity of 00:00: mouth 3 [place] [address] ([facility]) [facility] daily. LORazepam 2 2020- Yes [id number] 10mg Take 5 Univers mg tablet 2-04 tablets by ity of 00:00: mouth 3 [place] [address] ([facility]) [facility] daily. LORazepam 2 Yes [id number] 10mg Take 5 Univers mg tablet 2-04 tablets by ity of 00:00: mouth 3 [place] [address] ([facility]) [facility] daily. lisinopriL 2020- No 2.5mg 2.5 mg, Un jennie (PRINIVIL,Z 11-09 Oral, ity of ESTRIL) 15:00: 14:41 DAILY, [...] 1 [place] mg 00 :00 dose, [facility] 10/27/20 at Branch 0145, Routine LORazepam 2020- [...] Branch dose, Sat10/26/20 at 1130, Routine iohexol 2020- No 80mL 80 mL, Univers (OMNIPAQUE 10-26 Intravenou it y of 350 16:33: 16:33 s, ONCE, 1 [place] BULK-100 00 :00 dose, Sat Medica l mL) 10/26/20 at [place] injection 1045, 80 mL Routine LORazepam 2020- No 5mg 5 mg, Univer s (ATIVAN) 10-26 Oral, QID, ity of tablet 5 mg 02:00: 21:27 First dose [place] 00 :00 on Sat [facility] 10/25/20 at Branch 2000, Until Discontinu ed, [...] Sat Medi srinivasa (4 %) 10/21/20 at Branch infusion 2 0815, g Routine labetaloL No [...] at 1500, Until Discontinu ed, Routine amLODIPine No 10mg 10 mg, Univ ers (NORVASC) [...] :01 CONTINUOUS Medic al , Starting Branch 10/19/20 at 2030, Until [place] 10/20/20 at 0627, Routine KCL 2020- No 40meq 40 mEq, [...] Branch dose, 10/18/20 at 1530, Routine KCL 2020- No 40meq 40 mEq, [...] :42 CONTINUOUS Medic al , Starting Branch [facility] 10/18/20 at 1115, Until Sat10/19/20 at 2023, Routine NaCl 0.9% Yes 10mL 10 mL, Univer s (NS) 12 Slow IV ity of injection 15:58: Push, PRN, [place] 10 mL 41 Starting Medical [facility] 10/18/20 at 0958, Until Discontinu ed, Routine, line maintenanc e lidocaine Yes 5mL 5 mL, Univers 1% (PF) 10-18 Subcutaneo ity of (XYLOCAINE) 15:58: us, PRN, [place] injection 5 41 Starting Medi srinivasa mL [facility] Branch 10/18/20 at 0958, Until Discontinu ed, Routine, Local anesthesia KCL 2020- No 40meq 40 mEq, IV Unive rs (POTASSIUM 10-18 Piggyback, it y of CHLORIDE) 12:35: 14:17 ONCE, 1 [place] 40 mEq in 00 :00 dose, Tue Medic al NaCl 0.9% 10/18/20 at [facility] ch (NS) 0645, 250 piggyback mL diazePAM [...] autoimmune encephalit is
Facu lty Requesting Approval: JOEY DOMÍNGUEZ haloperidol 2020- No 2mg 2 mg, Univ ers lactate 10-17 Intramuscu ity o f (HALDOL) 17:53: 15:57 lar, [place] injection 2 45 :43 Q6HPRN, Medic al mg Starting Branch Sat10/17/20 at 1153, Until Sat10/18/20 at 0957, Routine, Psychosis, Sedation iohexol 2020- No 100mL 100 mL, Unive rs (OMNIPAQUE 10-17 Intravenou it y of 350 15:53: 15:53 s, ONCE, 1 [place] BULK-100 00 :00 dose, Mon Medica l mL) 10/17/20 at [place] injection 1000, 100 mL Routine NaCl 0.9% 2020- No 1000mL at 125 Uni vers (NS) IV 10-17 mL/hr, IV ity of infusion 15:45: 17:06 Infusion, Mike as 1,000 mL 00 :41 CONTINUOUS Medic al , Starting Branch [facility] 10/17/20 at 0945, Until Sat10/18/20 at 1106, [...] 0730, Until 10/17/20 at 0936, Routine LORazepam 2020- No 1mg 1 mg, Slow U nivers (ATIVAN) 10-17 IV Push, ity of injection 1 08:15: 07:13 ONCE, 1 [place] mg 00 :00 dose, [facility] Medical 10/17/20 at Branch 0215, Routine haloperidol No 1mg 1 mg, Slow Univers lactate 10-17 IV Push, ity of (HALDOL) 03:45: 06:27 ONCE, 1 [place] injection 1 00 :00 dose, [place] Med ical mg 10/16/20 at Branch 2145, [...] Sat Medic al NaCl 0.9% 10/15/20 at [facility] h (NS) 1830, 250 piggyback [...] Sat Medic al NaCl 0.9% 10/15/20 at [facility] h (NS) 0745, 250 piggyback [...] Fri Medic al NaCl 0.9% 10/14/20 at [facility] h (NS) 1745, 250 piggyback mL diazePAM 2020- No 5mg 5 mg, Univers (VALIUM) 10-14 Intravenou ity of injection 5 20:00: 14:29 s, TID, [place] mg 00 :10 First dose Medical on Fri Branch 10/14/20 at 1400, Until Discontinu ed, Routine potassium, Yes 1{packe 1 Packet, Univers sodium 1-08 t} Oral, QID, ity of phosphates 14:00: First dose [place] (PHOS-NAK) 00 on Sat Medical [id number] 10/14/20 at [facility] mg packet 1 0800, Packet Until Discontinu [...] 1000mL at 125 Uni vers (NS) IV 10-14-11 mL/hr, IV ity of infusion 01:00: 13:16 Infusion, [place] 1,000 mL 00 :27 CONTINUOUS Medic al , Starting Branch Sat10/13/20 at 1900, Until Sat10/17/20 at 0716, Routine KCL No 40meq 40 mEq, IV [...] PRN - SEE [place] mg 00 INSTRUCTIO Medical NS, 1 Branch dose, Starting [place] 10/13/20 at 1315, Until Discontinu ed, Routine, Lorazepam Challenge for Catatonia LORazepam No 2mg 2 mg, Slow U nivers (ATIVAN) 10-13 IV Push, ity of injection 2 19:15: 19:12 ONCE, 1 [place] mg 00 :00 dose, [facility] Medical 10/13/20 at Branch 1315, Routine pantoprazol Yes 40mg 40 mg, Univ ers e 10-13 Oral, ity of (PROTONIX) 15:00: DAILY, [place] EC tablet 00 First dose Medi srinivasa 40 mg on [place] Branch 10/13/20 at 0900, Until Discontinu ed, Routine magnesium 2020- No 4g 4 g, IV Univ ers sulfate in 10-13 Piggyback, it y of water 4 15:00: 13:57 ONCE, 1 [place] gram/50 mL 00 :00 dose, [facility] Medi srinivasa (8 %) IV 10/13/20 at [place] Piggyback 4 0900, g Routine thiamine 2020- No 500mg IV Univers (VITAMIN 10-13 Piggyback, ity of B1) 500 mg 15:00: 21:13 DAILY, 1 [place] in NaCl 00 :00 dose, Medical 0.9% (NS) First dose Bran ch piggyback on [facility] 10/13/20 at 0900, 50 mL heparin Yes [...] s 40 mEq in 00 :00 dose, [place] Medic al NaCl 0.9% 10/13/20 at [facility] h (NS) 0715, 250 piggyback mL acetaminoph Yes 650mg 650 mg, Un jennie en 10-13 Oral, ity of (TYLENOL) 08:13: Q6HPRN, [place] tablet 650 16 Starting Medic al mg [place] 10/13/20 Branch at 0213, Until Discontinu ed, Routine, Pain (scale 4-6) docusate Yes 100mg 100 mg, Unive rs (COLACE) 10-13 Oral, ity of capsule 100 08:13: QDAILYPRN, [place] mg 16 Starting Medical [place] 10/13/20 Branch at 0213, Until Discontinu ed, Routine, Constipati on fosphenytoi 2020- No 900mg{p 900 mg PE, Univers n (CEREBYX) 10-13 henytoi IV ity of 900 mg PE 03:15: 03:07 n'equiv Piggyback, [place] in NaCl 00 :00 alent} ONCE, 1 Medical 0.9% (NS) dose, [facility] h piggyback 10/12/20 at 2115, 100 mL diazePAM 2020- No 2mg 2 mg, Slow Un jennie (VALIUM) 10-12 IV Push, ity of injection 2 16:45: 15:34 ONCE, 1 [place] mg 00 :00 dose, [facility] 10/12/20 at Branch 1045, STAT diazePAM 2020- No 2mg 2 mg, Slow Un jennie (VALIUM) 10-12 IV Push, ity of injection 2 10:38: 10:40 ONCE, 1 [place] mg 00 :00 dose, [facility] 10/12/20 at Branch 0445, STAT D5W 0.45% 2020- No 1000mL at 125 Uni vers NaCl 10-1207 mL/hr, ity of (1/2NS) IV 07:30: 23:47 1,000 mL, [place] infusion 00 :30 IV Medical 1,000 mL Infusion, Branch CONTINUOUS , Starting [facility] 10/12/20 at 0130, Until [place] 10/13/20 at 1747, [...] 1 [place] mg 00 :00 dose, [facility] Medical 10/11/20 at Branch 2345, STAT NaCl 0.9% 2020- No 1000mL at 999 Uni vers (NS) bolus 10-1206 mL/hr, ity of infusion 03:45: 06:10 1,000 mL, [place] as 1,000 mL 00 :00 IV Medical Infusion, Branch ONCE, 1 dose, Tu 10/11/20 at 2145, STAT acetaminoph 2019- No 1{tbl} 1 tablet, Univers en-codeine 04-04-29 Oral, ity of (TYLENOL 16:00: 14:55 ONCE, 1 [place] #3) 300-30 00 :00 dose, Mon Medi srinivasa mg tablet 1 04/04/20 at Br anch tablet 1100, WILFREDO acetaminoph Yes [id number] 1{tbl} Take 1 Univers en-codeine -29 tablet by ity of (TYLENOL-CO 00:00: mouth [place] DEINE #3) 00 every 4 Medical 300-30 mg (four) Branch tablet hours as needed for Pain (scale 1-3). acetaminoph 2020- No [id number] 1{tbl} Take 1 Univers en-codeine - 02-04 tablet by ity of (TYLENOL-CO 00:00: 00:00 [place] DEINE #3) 00 :00 every 4 Medical 300-30 mg (four) Branch tablet hours as needed for Pain (scale 1-3). SUMAtriptan No 6mg 6 mg, Univ ers (IMITREX) 06-08 09 Subcutaneo ity of injection 6 17:45: 16:53 us, ONCE, [place] mg 00 :00 1 dose, Medical 06/08/19 Branch at 1245, WIL[place]ED[place] maalox:diph 2018- No 15mL 15 mL, Uni vers enhydrAMINE 06-08 Oral, ity of :lidocaine2 16:45: 16:45 ONCE, 1 [place] %viscous 00 :00 dose, Mon Medica l 1:1:1: 06/08/19 at Branch suspension 1145, W[place]FREDO (COMPOUNDED ) NaCl 0.9% 2019- 2019- No 1000mL at 999 Uni vers (NS) bolus 06-08 mL/hr, ity of infusion 15:30: 16:51 1,000 mL, [place] as 1,000 mL 00 :00 IV Medical Infusion, [place] ONCE, 1 dose, 06/08/19 at 1030, [place] fluoxetine Yes Take by Uni vers HCl (PROZAC 9-02 mouth. ity of ORAL) 14:52: [address] alprazolam Yes Take by Uni vers (XANAX 9-02 mouth. ity of ORAL) 14:52: [address] fluoxetine 2018- Yes Take by Uni vers HCl (PROZAC 9-02 mouth. ity of ORAL) 14:52: [address] alprazolam Yes Take by Uni vers (XANAX 9-02 mouth. ity of ORAL) 14:52: [address] fluoxetine 2018- Yes Take by Uni vers HCl (PROZAC 9-02 mouth. ity of ORAL) 14:52: [address] alprazolam 2018- Yes Take by Uni vers (XANAX 9-02 mouth. ity of ORAL) 14:52: [address] fluoxetine 2018- Yes Take by Uni vers HCl (PROZAC 9-02 mouth. ity of ORAL) 14:52: [address] alprazolam Yes Take by Uni vers (XANAX 9-02 mouth. ity of ORAL) 14:52: [address] No known No Univers medications ity of [facility] Immunizations Ordered Filled Immunization Date Status Comments Sour e Immunization Name Name Influenza Virus 2020-05-18 Completed Universit y of Vaccine [place] .5 mL 00:00:00 [facility] IM 6+ MO [place] Influenza Virus 2020-05-18 Completed Universit y of Vaccine [place] .5 mL 00:00:00 [facility] IM 6+ MO [place] Influenza Virus 2020-05-18 Completed Universit y of Vaccine [place] .5 mL 00:00:00 [place] Medical IM 6+ MO Branch Influenza Virus 2020-05-18 Completed Universit y of Vaccine [place] .5 mL 00:00:00 [place] Medical IM 6+ MO Branch Influenza Virus 2020-05-18 Completed Universit y of Vaccine [place] .5 mL 00:00:00 [place] Medical IM 6+ MO Branch Influenza Virus 2020-05-18 Completed Universit y of Vaccine [place] .5 mL 00:00:00 [facility] IM 6+ [place] Branch Vital Signs Vital Name Observation Time Observation Value Comments Source Systolic blood 2020-11-10 13:25:00 98 mm[Hg] Univer sity of pressure [facility] Diastolic blood 2020-11-10 13:25:00 60 mm[Hg] Unive rsity of pressure [facility] Heart rate 2020-11-10 13:25:00 81 /min Universi ty [place] [facility] Body temperature 2020-11-10 13:25:00 36.28 Susan Univ ersity of [facility] Respiratory rate 2020-11-10 13:25:00 18 /min [facility] Oxygen saturation in 2020-11-10 13:25:00 98 /min [facility] Arterial blood by [facility] Pulse oximetry Branch Body weight 2020-11-07 20:45:00 43.999 kg Universi ty [facility] BMI 2020-11-07 20:45:00 16.14 kg/m2 Universi ty [facility] Body height 2020-10-17 17:36:00 165.1 cm Universi ty [facility] Systolic blood 2020-04-04 14:40:00 149 mm[Hg] Univer sity of [facility] Diastolic blood 2020-04-04 14:40:00 85 mm[Hg] Unive rsity of pressure [facility] Heart rate 2020-04-04 14:40:00 88 /min Universi ty [facility] Body temperature 2020-04-04 14:40:00 36.89 Susan Univ ersity of [facility] Respiratory rate 2020-04-04 14:40:00 18 /min Univ ersity of [facility] Body weight 2020-04-04 14:40:00 68.04 kg Universi ty [place] [facility] Oxygen saturation in 2020-04-04 14:40:00 97 /min University of Arterial blood by [facility] Pulse oximetry Branch Systolic blood 2019-06-08 16:00:00 163 mm[Hg] Univer sity of pressure [facility] Diastolic blood 2019-06-08 16:00:00 88 mm[Hg] Unive rsity of pressure [facility] Heart rate 2019-06-08 16:00:00 64 /min [facility] Respiratory rate 2019-06-08 16:00:00 17 /min [facility] Oxygen saturation in 2019-06-08 16:00:00 100 /min [facility] Arterial blood by [facility] Pulse oximetry Branch Body temperature 2019-06-08 14:46:00 36.89 Susan [facility] Body weight 2019-06-08 14:44:00 43.092 kg [facility] Procedures Procedure Date / Time Performing Clinician Source Performed AUTHORIZATION FOR RELEASE OF 2021-03-01 Doctor Unassigned, No University of PHI 05:01:00 Name [facility] AUTHORIZATION FOR RELEASE OF 2021-02-16 Doctor Unassigned, No University of PHI 05:01:00 Name [facility] EXTERNAL PROVIDER RECORDS 2020-11-22 Doctor Unassigned, No University of 06:01:00 Name [facility] COVID-19 (ID NOW RAPID 2020-11-10 Jey Mejía [facility] Heightsmindy rsity of TESTING) 00:27:00 [facility] XR KUB 2020-11-09 Jey Mejía Leupp o f 23:36:27 [facility] BASIC METABOLIC PANEL (NA, 2020-11-09 Jey Mejía niversity of K, CL, CO2, GLUCOSE, BUN, 10:11:00 [facility] CREATININE, [place]) Branch CBC WITH DIFF 2020-11-09 Jey Mejía Leupp o f 10:11:00 [facility] BASIC METABOLIC PANEL (NA, 2020-11-07 Jey Mejía niversity of K, CL, CO2, GLUCOSE, BUN, 10:05:00 [facility] CREATININE, [place]) Branch CBC WITH DIFF 2020-11-07 Jey Mejía Leupp o f 10:05:00 [facility] HEPATIC FUNCTION PANEL 2020-11-05 Jey Mejía [facility] Heightsmindy rsity of ([id number]) (ALB,T.PRO,BILI 09:59:00 [facility] dical T,BU/BC,ALT,AST,ALK PHOS) Branch BASIC METABOLIC PANEL (NA, 2020-11-05 Jey Mejía niversity of K, CL, CO2, GLUCOSE, BUN, 09:59:00 [facility] CREATININE, [place]) Branch CBC WITH DIFF 2020-11-05 Jey Mejía o f 09:59:00 [facility] CEREBROSPINAL FLUID PROTEIN 2020-10-27 Jey Mejía of 19:49:00 [facility] CEREBROSPINAL FLUID GLUCOSE 2020-10-27 Jey Mejía of 19:49:00 [facility] BODY FLUID DIRECT COUNT 2020-10-27 Jey Mejía ersity of 19:49:00 [facility] CSF/PULL OUT OPERATOR SHUNT CULTURE 2020-10-27 Jey Mejía ity of 19:49:00 [facility] CSF CULTURE 2020-10-27 Jey Mejía o f 19:49:00 [facility] BASIC METABOLIC PANEL (NA, 2020-10-27 Jey Mejía niversity of K, CL, CO2, GLUCOSE, BUN, 11:41:00 [facility] CREATININE, [place]) Branch CBC WITH DIFF 2020-10-27 Jey Mejía o f 11:41:00 [facility] POCT GLUCOSE (AUTOMATED) 2020-10-27 Carlos Terry ity of 01:51:00 [facility] COVID-19 (ID NOW RAPID 2020-10-26 Jey Mejía rsity of TESTING) 18:47:00 [facility] LAB ONLY COVID 2020-10-26 Jey Mejía o f INTERPRETATION 18:47:00 [facility] MR BRAIN W WO CONTRAST 2020-10-26 Jey Mejía rsity of 17:18:[address] [facility] [address] CHEST PULMONARY ANGIOGRAM 2020-10-26 Aravind Fabián [facility] of 16:39:40 [facility] XR CHEST 1 VW 2020-10-26 [facility] 13:00:00 [facility] D-DIMER 2020-10-26 César Urbina, [facility] of 11:04:00 [facility] EXTRA TUBE RED 2020-10-26 Mara [facility] of 11:04:00 [facility] URINALYSIS 2020-10-26 Lindsey Vega [facility] of 08:35:00 [facility] URINE CULTURE 2020-10-26 [facility] of 08:35:00 [facility] BLOOD CULTURE SCREEN 2020-10-26 Lindsey Vega [facility] sity of 08:22:00 [facility] BLOOD CULTURE SCREEN 2020-10-26 Lindsey Vega [facility] sity of 08:11:00 [facility] MAGNESIUM 2020-10-26 [facility] of 08:02:00 [facility] BASIC METABOLIC PANEL (NA, 2020-10-26 [facility] of K, CL, CO2, GLUCOSE, BUN, 08:02:00 [facility] CREATININE, [place]) Branch EXTRA TUBE LAV 2020-10-26 Carlos Terry Leupp of 08:02:00 [facility] MAGNESIUM 2020-10-25 [facility] of 10:43:00 [facility] BASIC METABOLIC PANEL (NA, 2020-10-25 [facility] of K, CL, CO2, GLUCOSE, BUN, 10:43:00 [facility] CREATININE, [place]) Branch CBC WITH DIFF 2020-10-25 [facility] of 10:43:00 [facility] FREE T4 2020-10-24 Aravind Sweeneyara [facility] o f 19:55:00 [facility] MAGNESIUM 2020-10-24 [facility] of 09:22:00 [facility] THYROID STIMULATING HORMONE 2020-10-24 [facility] of 09:22:00 [facility] BASIC METABOLIC PANEL (NA, 2020-10-24 [facility] of K, CL, CO2, GLUCOSE, BUN, 09:22:00 [facility] CREATININE, [place]) Branch CBC WITH DIFF 2020-10-24 [facility] of 09:22:00 [facility] BASIC METABOLIC PANEL (NA, 2020-10-22 Sina Baker [facility] rsity of K, CL, CO2, GLUCOSE, BUN, 10:35:00 [facility] CREATININE, [place]) Branch CBC WITH DIFF 2020-10-22 [facility] o f 10:35:00 [facility] MAGNESIUM 2020-10-21 [facility] of 10:26:00 [facility] BASIC METABOLIC PANEL (NA, 2020-10-21 Sina Baker [facility] rsity of K, CL, CO2, GLUCOSE, BUN, 10:26:00 [facility] CREATININE, [place]) Branch CBC WITH DIFF 2020-10-21 [facility] o f 10:26:00 [facility] TROPONIN I 2020-10-20 [facility] of 10:38:00 [facility] CBC WITH DIFF 2020-10-20 [facility] of 10:38:00 [facility] PROTHROMBIN TIME / INR 2020-10-20 [facility] ersity of 10:37:00 [facility] ACTIVATED PARTIAL THRMPLAS 2020-10-20 [facility] of CAMERON 10:37:00 [facility] MAGNESIUM 2020-10-20 [facility] of 09:30:00 [facility] HEPATIC FUNCTION PANEL 2020-10-20 [facility] ersity of ([id number]) (ALB,T.PRO,BILI 09:30:00 [place] [facility] T,BU/BC,ALT,AST,ALK PHOS) Branch BASIC METABOLIC PANEL (NA, 2020-10-20 [facility] of K, CL, CO2, GLUCOSE, BUN, 09:30:00 [place] [facility] CREATININE, [place]) Branch XR KUB 2020-10-19 LindseyMacario Henning Leupp of 11:25:00 [facility] Branch MAGNESIUM 2020-10-19 [facility] of 09:24:00 [facility] BASIC METABOLIC PANEL (NA, 2020-10-19 [facility] of K, CL, CO2, GLUCOSE, BUN, 09:24:00 [facility] CREATININE, [place]) Branch BASIC METABOLIC PANEL (NA, 2020-10-19 Jey Mejía niversity of K, CL, CO2, GLUCOSE, BUN, 04:08:00 [facility] CREATININE, [place]) Branch MAGNETIC RESONANCE IMAGING 2020-10-19 Anesthesiology Unive rsity of UNDER ANESTHESIA 03:25:00 [facility] MR BRAIN W WO CONTRAST 2020-10-18 Jey Mejía [facility] rsity of 21:29:00 [facility] MR ABDOMEN W WO CONTRAST 2020-10-18 Jey Mejía Uni versity of MRCP 21:29:00 [facility] ECHO ROUTINE W/DOPPLER COLOR 2020-10-18 Jey Mejía of 17:10:24 [facility] MAGNESIUM 2020-10-18 Macario Kirby Leupp of 10:37:00 [facility] BASIC METABOLIC PANEL (NA, 2020-10-18 César Sullivanga [facility] of K, CL, CO2, GLUCOSE, BUN, 10:37:00 [facility] CREATININE, [place]) Branch CBC WITH DIFF 2020-10-18 Jey Mejía o f 10:37:00 [facility] XR KUB 2020-10-17 Jey Mejía o f 22:52:00 [facility] BLOOD CULTURE SCREEN 2020-10-17 Jey Mejía [facility] ity of 21:53:00 [facility] MISCELLANEOUS SEND OUT TEST 2020-10-17 Macario Kirby of 19:57:00 [facility] URINALYSIS 2020-10-17 Jey Mejía o f 19:40:00 [facility] URINE CULTURE 2020-10-17 Jey Mejía o f 19:40:00 [facility] NEUTROPHIL CYTOPLASMIC AB, 2020-10-17 Jey Mejía niversity of IGG 19:36:00 [facility] LACTIC ACID WHOLE BLOOD 2020-10-17 Jey Mejía [facility] ersity of 19:33:00 [facility] CANCER ANTIGEN-GI (CA 19-9) 2020-10-17 Jey Mejía [facility] of 19:21:00 [facility] BLOOD CULTURE SCREEN 2020-10-17 Jey Mejía [facility] it of 19:21:00 [facility] CARCINOEMBRYONIC ANTIGEN 2020-10-17 Jey Mejía [facility] versity of 19:21:00 [facility] BASIC METABOLIC PANEL (NA, 2020-10-17 Jey Mejía U niversity of K, CL, CO2, GLUCOSE, BUN, 19:21:00 [facility] CREATININE, CA) Branch CA-125 2020-10-17 Jey Mejía o f 19:21:[address] [facility] [address] ABDOMEN PELVIS W CONTRAST 2020-10-17 Maxx Kirby Leupp of 15:59:15 [facility] CT THORAX W CONTRAST 2020-10-17 Macario Kirby [facility] sity of 15:59:15 [facility] MAGNESIUM 2020-10-17 Macario Kirby of 11:12:00 [facility] C-REACTIVE PROTEIN 2020-10-17 Jey Mejía [facility] y of 11:12:00 [facility] BASIC METABOLIC PANEL (NA, 2020-10-17 Macario Kirby of K, CL, CO2, GLUCOSE, BUN, 11:12:00 [facility] CREATININE, [place]) Branch SEDIMENTATION RATE 2020-10-17 Jey Mejía y of 11:12:00 [facility] CBC WITH DIFF 2020-10-17 Macario Kirby of 11:12:00 [facility] MAGNESIUM 2020-10-17 César Urbina [facility] of 10:07:00 [facility] CBC WITH DIFF 2020-10-17 [facility] 10:07:00 [facility] MISCELLANEOUS SEND OUT TEST 2020-10-17 [facility] 10:07:00 [facility] CEREBROSPINAL FLUID PROTEIN 2020-10-17 César Urbina [facility] of 07:57:00 [facility] CEREBROSPINAL FLUID GLUCOSE 2020-10-17 [facility] of 07:57:00 [facility] BODY FLUID DIRECT COUNT 2020-10-17 Macario Kirby Uni versity of 07:57:00 [facility] CSF/PULL OUT OPERATOR SHUNT CULTURE 2020-10-17 [facility] 07:57:00 [facility] FUNGUS (ROUTINE) CULTURE 2020-10-17 Macario Kirby iversity of 07:57:00 [facility] MISCELLANEOUS SEND OUT TEST 2020-10-17 Aravind Lockwood Jey Leupp of 07:57:00 Stanton [facility] CSF CULTURE 2020-10-17 Lindsey Urbina [facility] of 07:57:00 [facility] MISCELLANEOUS SEND OUT TEST 2020-10-17 [facility] of 07:56:00 [facility] M-DBUVLV-G-ASPARTATE 2020-10-17 [facility]ity of RECEPTOR AB, CSF 07:56:00 [facility] ELECTROENCEPHALOGRAM 2020-10-17 Joey Domínguez Le[facility] of 00:00:00 [facility] MR BRAIN WO CONTRAST 2020-10-16 Carlos Terry [facility] of 21:37:16 [facility] CORTISOL AM 2020-10-16 Iveth Correia Leupp of 11:01:00 [facility] BASIC METABOLIC PANEL (NA, 2020-10-16 [facility] niversity of K, CL, CO2, GLUCOSE, BUN, 11:01:00 [facility] CREATININE, [place]) Branch POTASSIUM, URINE RANDOM 2020-10-16 [facility], [facility] Univ ersity of 06:25:00 [facility] Branch SODIUM, URINE RANDOM 2020-10-16 [facility] ity of 06:25:00 [facility] Branch MAGNESIUM, URINE RANDOM 2020-10-16 Muranova, [facility] ersity of 06:25:00 [facility] Branch CALCIUM, URINE RANDOM 2020-10-16 [facility], [facility] s[facility] of 06:25:00 [facility] Branch GLUCOSE, URINE RANDOM 2020-10-16 Elaina [facility] of 06:25:00 [facility] Branch OSMOLALITY URINE 2020-10-15 [facility], [facility] of 22:40:00 [facility] Branch CREATININE, URINE RANDOM 2020-10-15 [facility], [facility] versity of 22:40:00 [facility] Branch SODIUM, URINE RANDOM 2020-10-15 Masood [facility] of 22:40:00 [facility] Branch CALCIUM, URINE RANDOM 2020-10-15 [facility], [facility] of 22:40:00 [facility] MAGNESIUM 2020-10-15 [facility] o f 21:50:00 [facility] BASIC METABOLIC PANEL (NA, 2020-10-15 [facility], [facility] U niversity of K, CL, CO2, GLUCOSE, BUN, 21:50:00 [facility] CREATININE, [place]) Branch PHOSPHORUS 2020-10-15 [facility] o f 11:34:00 [facility] Branch MAGNESIUM 2020-10-15 [facility] o f 11:34:00 [facility] BASIC METABOLIC PANEL (NA, 2020-10-15 [facility] U niversity of K, CL, CO2, GLUCOSE, BUN, 11:34:00 [facility] CREATININE, [place]) Branch CBC WITHOUT DIFF 2020-10-15 [facility] of 11:34:00 [facility] XR KUB 2020-10-14 [facility] o f 23:45:10 [facility] XR CHEST 1 VW 2020-10-14 [facility] o f 21:24:07 [facility] BASIC METABOLIC PANEL (NA, 2020-10-14 [facility] niversity of K, CL, CO2, GLUCOSE, BUN, 20:54:00 [facility] CREATININE, [place]) Branch HB ECG ROUTINE & RHYTHM 2020-10-14 [facility] ersity of STRIP 16:54:32 [facility] PHOSPHORUS 2020-10-14 [facility] o f 10:58:00 [facility] MAGNESIUM 2020-10-14 [facility] o f 10:58:00 [facility] BASIC METABOLIC PANEL (NA, 2020-10-14 [facility] niversity of K, CL, CO2, GLUCOSE, BUN, 10:58:00 [facility] CREATININE, [place]) Branch CBC WITHOUT DIFF 2020-10-14 [facility] of 10:58:00 [facility] CREATINE KINASE 2020-10-13 [facility] o f 22:41:00 [facility] AMMONIA, PLASMA 2020-10-13 [facility] o f 22:41:00 [facility] BASIC METABOLIC PANEL (NA, 2020-10-13 [facility] niversity of K, CL, CO2, GLUCOSE, BUN, 22:41:00 [place] [facility] CREATININE, [place]) Branch VITAMIN B1, PLASMA 2020-10-13 [facility] 11:04:00 [facility] PHOSPHORUS 2020-10-13 [facility] 11:04:00 [facility] CREATINE KINASE 2020-10-13 Jojo [facility] of 11:04:00 [facility] MAGNESIUM 2020-10-13 Jojo [facility] of 11:04:00 [facility] OSMOLALITY, SERUM OR PLASMA 2020-10-13 Iveth Correia [facility] versity of 11:04:00 [facility] VITAMIN B12, LEVEL 2020-10-13 Jojo [facility] of 11:04:00 [facility] RHEUMATOID FACTOR 2020-10-13 Aravind Lockwood [facility] of 11:04:00 Stanton [facility] TROPONIN I 2020-10-13 Jojo [facility] of 11:04:00 [facility] FREE T4 2020-10-13 Iveth Correia of 11:04:00 [facility] THYROID STIMULATING HORMONE 2020-10-13 Gustavo Uribe ersity of 11:04:00 [facility] HEPATIC FUNCTION PANEL 2020-10-13 [facility] of ([id number]) (ALB,T.PRO,BILI 11:04:00 [facility] dical T,BU/BC,ALT,AST,ALK PHOS) Branch BASIC METABOLIC PANEL (NA, 2020-10-13 Gustavo Uribe rsity of K, CL, CO2, GLUCOSE, BUN, 11:04:00 [facility] CREATININE, [place]) Branch PHENYTOIN FREE 2020-10-13 Jojo [facility] of 11:04:00 [facility] SERUM DRUG (IMMUNOASSAY) - 2020-10-13 Gustavo Uribe rsity of COMPREHENSIVE DRUG SCREEN 11:04:00 [facility] CBC WITH DIFF 2020-10-13 Jojo [facility] of 11:04:00 [facility] PROTHROMBIN TIME / INR 2020-10-13 Gustavo Uribeit y of 11:04:00 [facility] ANTI-NUCLEAR ANTIBODY SCREEN 2020-10-13 Jey Mejía [facility] of 11:04:00 [facility] HEPATITIS B VIRUS (HBV) BY 2020-10-13 Gustavo Uribe rsity of QUANTITATIVE NAAT 11:04:00 [facility] FREE T3 2020-10-13 [facility] of 11:04:00 [facility] HIV 1/2 AG-AB WITH REFLEX 2020-10-13 Gustavo Uribe sity of 11:04:00 [facility] GALV ONLY - SYPHILIS IGG/IGM 2020-10-13 Gustavo Uribe versity of 11:04:00 [facility] ANTI-NUCLEAR 2020-10-13 Jey Mejía Leupp o f ANTIBODY-PATHOLOGIST 11:04:00 [facility] al INTERPRETATION Branch HEPATITIS C VIRUS (HCV) BY 2020-10-13 Gustavo Uribe rsity of QUANTITATIVE NAAT 11:03:00 [facility] CT HEAD WO CONTRAST 2020-10-13 Gustavo Uribe o f 09:58:38 [facility] XR CHEST 2 VW 2020-10-13 Gustavo Uribe Leupp of 09:42:38 [facility] HB ECG ROUTINE & RHYTHM 2020-10-13 Gustavo Uribe [facility] ty of STRIP 08:30:00 [facility] ELECTROENCEPHALOGRAM 2020-10-13 [facility] of 00:00:00 [facility] POCT GLUCOSE (AUTOMATED) 2020-10-12 Singer [facility] ity of 13:36:00 [facility] POCT GLUCOSE (AUTOMATED) 2020-10-12 [facility] ity of 06:16:00 [facility] COVID-19 (ID NOW RAPID 2020-10-12 Jhonatan Lombardo [facility] y of TESTING) 04:57:00 [facility] LAB ONLY COVID 2020-10-12 [facility] of INTERPRETATION 04:57:[address] [facility] CT HEAD WO CONTRAST 2020-10-12 [facility] o f 04:12:18 [facility] COMP. METABOLIC PANEL 2020-10-12 [facility] of ([id number]) 01:49:00 [facility] URINALYSIS 2020-10-12 [facility] of 01:21:00 [facility] ADC / LCC - DRUG SCREEN 2020-10-12 Singer [facility] of TRIAGE 01:21:00 [facility] AMMONIA, PLASMA 2020-10-12 [facility] of 00:19:00 [facility] SALICYLATE 2020-10-12 [facility] of 00:11:00 [facility] ETHANOL 2020-10-12 [facility] of 00:11:00 [facility] NOTICE OF PRIVACY PRACTICES 2020-10-11 Doctor Unassigned, N o Leupp of 23:19:20 Name [facility] CONSENT/REFUSAL FOR 2020-10-11 Doctor Unassigned, No Univer sity of DIAGNOSIS AND TREATMENT 23:18:24 Name [facility] EXTERNAL PROVIDER RECORDS 2020-10-11 Doctor Unassigned, No University of 06:01:00 Name [facility] AGREEMENTS AUTHORIZATIONS 2020-10-11 Doctor Unassigned, No University of AND IRREVOCABLE ASSIGNMENTS 06:01:00 Name Addie Tidwell (FORM 2001) Branch HOSPITAL ADMISSION 2020-10-11 Doctor Unassigned, No Univers ity of 06:01:00 Name [facility] CONSENT/REFUSAL FOR 2020-04-04 Doctor Unassigned, No Univer sity of DIAGNOSIS AND TREATMENT 14:30:46 Name [facility] URINALYSIS 2019-06-08 Chiqui Rosen [facility] 15:56:00 [facility] LIPASE 2019-06-08 Chiqui Rosen [facility] 15:40:00 [facility] HEPATIC FUNCTION PANEL 2019-06-08 Chiqui Rosen Univer sity of ([id number]) (ALB,T.PRO,BILI 15:40:00 [facility] T,BU/BC,ALT,AST,ALK PHOS) Branch BASIC METABOLIC PANEL (NA, 2019-06-08 Chiqui Rosen Un iversity of K, CL, CO2, GLUCOSE, BUN, 15:40:00 [facility], [place]) Branch CBC WITH DIFFERENTIAL 2019-06-08 Chiqui Rosen Univers ity of 15:40:00 [facility] NOTICE OF PRIVACY PRACTICES 2019-06-08 Doctor Unasslizy, N o [facility] 14:37:20 Name [facility] CONSENT/REFUSAL FOR 2019-06-08 Doctor Unassigned, No Univer sity of DIAGNOSIS AND TREATMENT 14:37:05 Name [facility] Encounters Start End Encounter Admission Attending Care Care Encounter Source Date/Time Date/Time Type Type Clinicians Facility Department ID 2021-03-01 2021-03-01 Orders Doctor EDELMIRA [id number] Univers 00:00:00 00:00:00 Only UnassignedTRAMAINE [id number] ity of [place] [facility] [id number] Mike as [phone] [address] 2021-02-16 2021-02-16 Orders Doctor EDELMIRA Garcia.[id number] Univers 00:00:00 00:00:00 Only UnassignedTRAMAINE [id number] ity of [place] [facility] [id number] Mike as [id number] [address] 2020-11-22 2020-11-22 Orders Doctor EDELMIRA [id number] Univers 00:00:00 00:00:00 Only Unassigned, TRAMAINE [id number] ity of [place] [facility] [id number] Mike as [id number] [facility] 009 Branch 2020-11-22 2020-11-22 Orders Doctor EDELMIRA [id number] 00:00:00 00:00:00 Only Unassigned, TRAMAINE [id number] [place] [facility] [id number] [id number] 2020-11-11 2020-11-11 Transition Les Espinoza [id number] Univers 00:00:00 00:00:00 of Care Bel Caldwelly [id number] i ty [place] [id number] [facility] 403 Branch 2020-11-11 2020-11-11 Transition Les Espinoza [id number] 00:00:00 00:00:00 of Care Bel [place] [id number] [place] [id number] 2020-10-11 2020-11-10 [facility] James Allen 1.2.840.1 [id number] Univers 17:18:00 13:18:00 Encounter Jhonatan Lombardo [id number] ity of [facility] [id number] [place] Jhonatan Lombardo [id number] [address] Daniel Pierce Xiang 2020-10-11 2020-10-[address] [facility] ERT [id number] [facility] 17:18:00 17:18:00 [facility] 2020-06-16 2020-06-22 [id number] [address] [place] 00:00:00 00:00:00 MONIQUE 844 Method i 2020-04-04 2020-04-04 Emergency [facility] [id number] Univers 09:38:30 10:05:00 Chiqui Monterroso [id number] ity of [place] 4.2.7.2.686 [facility] [id number] [address] 2020-04-04 2020-04-04 Emergency X [facility] ERT [id number] Univers 09:31:00 09:31:00 ity of [facility] 2020-04-04 2020-04-04 Orders Doctor HICKEY [id number] Univers 00:00:00 00:00:00 Only Unassigned, TRAMAINE [id number] ity of [place] [facility] [id number] Mike as [id number] [address] 2019-12-25 2019-12-25 Nurse Rosaura Dunlap 1.2.840.114 [id number] Univers 00:00:00 00:00:00 Triage TRAMAINE [id number] it y of HOSPITAL 4.2.7.2.686 Mike as [id number] [address] 2019-06-08 2019-06-08 Emergency [facility] [id number] Univers 09:51:07 12:07:00 Chiqui Monterroso [id number] ity of [place] 4.2.7.2.686 [facility] [id number] [address] 2019-06-08 2019-06-08 Emergency X [facility] ERT [id number] Univers 09:51:07 12:07:00 CHIQUI ity [facility] 2019-06-08 2019-06-08 Orders Doctor HICKEY [id number] Univers 00:00:00 00:00:00 Only Unassigned, TRAMAINE [id number] ity of [place] [facility] [id number] Mike as [id number] [address] Results Test Description Test Time Test Comments Results Result Comments Source COVID-19 (ID NOW RAPID TESTING) 2020-11-10 00:57:00 Test Item Value Reference Range Interpretation Comme nts SARS-CoV-2 Rapid ID NOW (test code Not Detected Not Detected = 85421-6) TANESHA (test code = TANESHA) ID NOW COVID-19 Assay is an isothermal nucleic acid amplification test intended for the qualitative detection of nucleic acid from SARS-CoV-2 viral RNA in nasopharyngeal (ICU RN) specimens. It is used under Emergency Use [...] indicated. Lab Interpretation (test code = Normal 70732-0) [facility] METABOLIC PANEL (NA, K, CL, CO2, GLUCOSE, BUN, CREATININE, CA)2020-11-09 11:06:00 Test Item Value Reference Range Interpretation Comments NA (test code = 134 mmol/L 135-145 L 4943210297) K (test code = 4.2 mmol/L 3.5-5 9939594927) CL (test code = 99 mmol/L 98-108 0322066705) CO2 TOTAL (test code = 30 mmol/L 23-31 0089565102) AGAP (test code = 2-16 2833445302) BUN (test code = 11 mg/dL 7-23 1353437843) GLUCOSE (test code = 95 mg/dL 70-110 6990950732) CREATININE (test code = 0.53 mg/dL 0.5-1.04 3443037975) CALCIUM (test code = 9.6 mg/dL 8.6-10.6 8596901201) eGFR Calculation mL/min/1.73m2 (Non-) (test code = 3088894904) eGFR Calculation mL/min/1.73m2 () (test code = 4464586184) TANESHA (test code = TANESHA) Association of [...] tests). Lab Interpretation Abnormal (test code = 69347-1) [facility] WITH [id number] 10:25:00 Test Item Value Reference Range Interpretation [...] (test code = 51.8 fL 39-49.9 H 92907-9) RDW-CV (test code = 14.9 % 12-15.5 788-0) PLT (test code = See_Comment [Automated 777-3) message] The sy stem which generated this result transmitted reference range : 166 - 358 10*3/ ?L. The reference r irvin was not used to interpret this result as normal/abnormal . MPV (test code = 11.3 fL 9.5-12.9 45286-0) NRBC/100 WBC (test See_Comment [Automat ed code = 9296859846) message] The system which generated this result transmitted reference range : 0.0 - 10.0 /100 WBCs. The refer ence range was not u sed to interpret th is result as normal/abnormal . NRBC x10^3 (test code <0.01 See_Comment [Auto mated = 7265117527) message] The s ystem which generated this result transmitted reference range : 10*3/?L. The reference range was not used to interpret this result as normal/abnormal . GRAN MAT (NEUT) % 55.7 % (test code = 770-8) IMM GRAN % (test code 0.20 % = 9421391150) LYMPH % (test code = 28.3 % 736-9) MONO % (test code = 12.6 % 5905-5) EOS % (test code = 2.0 % 713-8) BASO % (test code = 1.2 % 706-2) GRAN MAT x10^3(ANC) 2.26 10*3/uL 1.88-7.09 (test code = 5028013614) IMM GRAN x10^3 (test <0.03 0-0.06 code = 9540423869) LYMPH x10^3 (test code 1.15 10*3/uL 1.32-3.29 L = 731-0) MONO x10^3 (test code 0.51 10*3/uL 0.33-0.92 = 742-7) EOS x10^3 (test code = 0.08 10*3/uL 0.03-0.39 711-2) BASO x10^3 (test code 0.05 10*3/uL 0.01-0.07 = 704-7) Lab Interpretation Abnormal (test code = 66184-4) [facility] WITH [id number] 10:47:00 Test Item Value Reference Range Interpretation [...] (test code = 51.7 fL 39-49.9 H 78657-1) RDW-CV (test code = 14.7 % 12-15.5 788-0) PLT (test code = See_Comment [Automated 777-3) message] The sy stem which generated this result transmitted reference range : 166 - 358 10*3/ ?L. The reference r irvin was not used to interpret this result as normal/abnormal . MPV (test code = 11.0 fL 9.5-12.9 35424-2) NRBC/100 WBC (test See_Comment [Automat ed code = 6305120789) message] The system which generated this result transmitted reference range : 0.0 - 10.0 /100 WBCs. The refer ence range was not u sed to interpret th is result as normal/abnormal . NRBC x10^3 (test code <0.01 See_Comment [Auto mated = 2020943206) message] The s ystem which generated this result transmitted reference range : 10*3/?L. The reference range was not used to interpret this result as normal/abnormal . GRAN MAT (NEUT) % 53.7 % (test code = 770-8) IMM GRAN % (test code 0.50 % = 1657410269) LYMPH % (test code = 28.8 % 736-9) MONO % (test code = 12.9 % 5905-5) EOS % (test code = 3.0 % 713-8) BASO % (test code = 1.1 % 706-2) GRAN MAT x10^3(ANC) 1.95 10*3/uL 1.88-7.09 (test code = 1023475550) IMM GRAN x10^3 (test <0.03 0-0.06 code = 5163406896) LYMPH x10^3 (test code 1.05 10*3/uL 1.32-3.29 L = 731-0) MONO x10^3 (test code 0.47 10*3/uL 0.33-0.92 = 742-7) EOS x10^3 (test code = 0.11 10*3/uL 0.03-0.39 711-2) BASO x10^3 (test code 0.04 10*3/uL 0.01-0.07 = 704-7) Lab Interpretation Abnormal (test code = 02897-8) [facility] METABOLIC PANEL (NA, K, CL, CO2, GLUCOSE, BUN, CREATININE, CA)2020-11-07 10:42:00 Test Item Value Reference Range Interpretation Comments NA (test code = 134 mmol/L 135-145 L 9198937544) K (test code = 4.0 mmol/L 3.5-5 8567230586) CL (test code = 99 mmol/L 98-108 8626117001) CO2 TOTAL (test code = 27 mmol/L 23-31 1435027120) AGAP (test code = 2-16 1845352356) BUN (test code = 11 mg/dL 7-23 1234850319) GLUCOSE (test code = 92 mg/dL 70-110 5393112724) CREATININE (test code = 0.49 mg/dL 0.5-1.04 L 0549122882) CALCIUM (test code = 9.2 mg/dL 8.6-10.6 4980746209) eGFR Calculation mL/min/1.73m2 (Non-) (test code = 2810442237) eGFR Calculation mL/min/1.73m2 () (test code = 1283996948) TANESHA (test code = TANESHA) Association of [...] tests). Lab Interpretation Abnormal (test code = 93472-0) [facility] WITH [id number] 11:10:00 Test Item Value Reference Range Interpretation [...] (test code = 51.6 fL 39-49.9 H 87093-9) RDW-CV (test code = 15.0 % 12-15.5 788-0) PLT (test code = See_Comment [Automated 777-3) message] The sy stem which generated this result transmitted reference range : 166 - 358 10*3/ ?L. The reference r irvin was not used to interpret this result as normal/abnormal . MPV (test code = 11.4 fL 9.5-12.9 56931-5) NRBC/100 WBC (test See_Comment [Automat ed code = 5320382846) message] The system which generated this result transmitted reference range : 0.0 - 10.0 /100 WBCs. The refer ence range was not u sed to interpret th is result as normal/abnormal . NRBC x10^3 (test code <0.01 See_Comment [Auto mated = 2746521330) message] The s ystem which generated this result transmitted reference range : 10*3/?L. The reference range was not used to interpret this result as normal/abnormal . GRAN MAT (NEUT) % 55.9 % (test code = 770-8) IMM GRAN % (test code 0.60 % = 2014427986) LYMPH % (test code = 28.7 % 736-9) MONO % (test code = 12.4 % 5905-5) EOS % (test code = 1.5 % 713-8) BASO % (test code = 0.9 % 706-2) GRAN MAT x10^3(ANC) 1.89 10*3/uL 1.88-7.09 (test code = 9940846447) IMM GRAN x10^3 (test <0.03 0-0.06 code = 2644680518) LYMPH x10^3 (test code 0.97 10*3/uL 1.32-3.29 L = 731-0) MONO x10^3 (test code 0.42 10*3/uL 0.33-0.92 = 742-7) EOS x10^3 (test code = 0.05 10*3/uL 0.03-0.39 711-2) BASO x10^3 (test code 0.03 10*3/uL 0.01-0.07 = 704-7) TOXIC CHANGES (test Present A code = 803-7) Lab Interpretation Abnormal (test code = 36110-1) [facility] METABOLIC PANEL (NA, K, CL, CO2, GLUCOSE, BUN, CREATININE, CA)2020-11-05 10:35:00 Test Item Value Reference Range Interpretation Comments NA (test code = 133 mmol/L 135-145 L 0683212406) K (test code = 4.5 mmol/L 3.5-5 Slight 7618706960) hemolysis CL (test code = 99 mmol/L 98-108 0080105480) CO2 TOTAL (test code 29 mmol/L 23-31 = 0964589363) AGAP (test code = 2-16 7133114557) BUN (test code = 11 mg/dL 7-23 Slight 4830231618) hemolysis GLUCOSE (test code = 83 mg/dL 70-110 3985842738) CREATININE (test code 0.44 mg/dL 0.5-1.04 L = 6392550583) CALCIUM (test code = 9.0 mg/dL 8.6-10.6 6406950579) eGFR Calculation mL/min/1.73m2 (Non-) (test code = 4778743416) eGFR Calculation mL/min/1.73m2 () (test code = 2710449555) TANESHA (test code = TANESHA) Association of [...] tests). Lab Interpretation Abnormal (test code = 18354-5) [facility] (ALB,T.PRO,BILI T,BU/BC,ALT,AST,ALK PHOS)2020-11-05 10:35:00 Test Item Value Reference Range Interpretation Comments TOTAL BILI (test code = 4985585527) 0.6 mg/dL 0.1-1.1 BILI UNCON (test code = 6782717524) 0.2 mg/dL 0.1-1.1 BILI CONJ (test code = 3918466311) 0.0 mg/dL 0-0.3 T PROTEIN (test code = 6568092228) 7.3 g/dL 6.3-8.2 ALBUMIN (test code = 5652103421) 3.5 g/dL 3.5-5 ALK PHOS (test code = 8124922534) 94 U/L 34-122 ALTv (test code = 1742-6) 25 U/L 5-35 AST(SGOT) (test code = 8298086787) 48 U/L 13-40 H Lab Interpretation (test code = Abnormal 42454-4) [facility] HospitalANTI-NUCLEAR ANTIBODY-PATHOLOGIST [id number] 04:21:00ANA - Pathologist InterpretationThe CARLOS ENRIQUE result is negative on interpretation. Norberto Pereira MD ?11/01/2020 ?10:20 PM [facility] LABORATORY SERVICESUnThe Hospitals of Providence Memorial CampusCS [id number] 13:32:00 Test Item Value Reference Range Interpretation Comments CSF CULTURE (test No organisms isolated code = 606-4) Gram stain (test code Moderate Mononuclear = 664-3) cells [facility] CULTURE [id number] 09:01:00 Test Item Value Reference Range Interpretation Comments Blood Culture-Aerobic No organisms No growth Previo us (test code = 72183-3) isolated prelim inary verified result was Culture In Progress on 10/26/2020 at 06 CSTPrevious preliminary verified result was No growth a t 24 hours on 10/27/2020 at 03 01 CSTPrevious preliminary verified result was No growth a t 48 hours on 10/28/2020 at 03 01 CSTPrevious preliminary verified result was No growth a t 72 hours on 10/29/2020 at 03 01 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 Blood No organisms No growth Previous Culture-Anaerobic isolated preliminar y (test code = 07547-1) verifi ed result was Culture In Progress on 10/26/2020 at 06 01 CSTPrevious preliminary verified result was No growth a t 24 hours on 10/27/2020 at 03 01 CSTPrevious preliminary verified result was No growth a t 48 hours on 10/28/2020 at 03 01 CSTPrevious preliminary verified result was No growth a t 72 hours on 10/29/2020 at 03 01 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 Interpretation Normal (test code = 26120-4) [facility] CULTURE [id number] 09:01:00 Test Item Value Reference Range Interpretation Comments Blood Culture-Aerobic No organisms No growth Previo us (test code = 33964-6) isolated prelim inary verified result was Culture In Progress on 10/26/2020 at 06 01 CSTPrevious preliminary verified result was No growth a t 24 hours on 10/27/2020 at 03 01 CSTPrevious preliminary verified result was No growth a t 48 hours on 10/28/2020 at 03 01 CSTPrevious preliminary verified result was No growth a t 72 hours on 10/29/2020 at 03 01 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 Blood No organisms No growth Previous Culture-Anaerobic isolated preliminar y (test code = 05783-8) verifi ed result was Culture In Progress on 10/26/2020 at 06 01 CSTPrevious preliminary verified result was No growth a t 24 hours on 10/27/2020 at 03 01 CSTPrevious preliminary verified result was No growth a t 48 hours on 10/28/2020 at 03 01 CSTPrevious preliminary verified result was No growth a t 72 hours on 10/29/2020 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 The reference r irvin was not used to interpr et this result as anoop l/abnormal. BF RBC Count (test See_Comment [Automat ed message] The code = 6009133799) system [facility] generated this result transmit carol reference range : /?L. The reference range was not used to interpr et this result as anoop l/abnormal. [facility] HospitalB[facility] FLUID MANUAL [id number] 21:04:00 Test Item Value Reference Range Interpretation Comments BF SEGS (test code = 7181574454) 1 % 0-7 BF LYMPHS (test code = 0331047658) 21 % 28-96 L MACROPHAGE (test code = 5864684924) 9 % 16-56 L #CELS CNTD (test code = 0074224970) Lab Interpretation (test code = Abnormal 40871-5) [facility] HospitalURINE [id number] 20:53:00 Test Item Value Reference Range Interpretation Comments URINE CULTURE (test >100,000 CFU/mL code = 630-4) Aerococcus urinae [facility] HospitalCEREBROSPINAL FLUID [id number] 20:33:00 Test Item Value Reference Range Interpretation Comments GLU CSF (test code = 64 mg/dL 50-80 3853964537) UNSPUN BODY FLUID Colorless COLOR (test code = 2563603467) UNSPUN BODY FLUID Clear CLARITY (test code = 7632608690) SPUN BODY FLUID COLOR Colorless (test code = 3176353085) SPUN BODY FLUID Clear CLARITY (test code = 3098162855) Sediment (test code = The sediment volume is 4181954795) <0.1 mLs of the total fluid volume of 1.0 mLs and its color is red. [facility] HospitalCEREBROSPINAL FLUID [id number] 20:33:00 Test Item Value Reference Range Interpretation Comments T. PRO CSF (test code = 53.0 mg/dL 15-45 H 5330011338) UNSPUN BODY FLUID COLOR Colorless (test code = 5276558593) UNSPUN BODY FLUID CLARITY Clear (test code = 2662179695) SPUN BODY FLUID COLOR Colorless (test code = 6452782742) SPUN BODY FLUID CLARITY Clear (test code = 6918029080) Sediment (test code = The sediment volume 6087064105) is <0.1 mLs of the total fluid volume of 1.0 mLs and its color is red. Lab Interpretation (test Abnormal code = 32685-6) [facility] HospitalMisc. Sendout- [id number] autoimmune encephalitis [id number] 18:18:00 Test Item Value Reference Range Interpretation Comments Miscellaneous Test (test See scanned report code = 4713670245) Performing Lab (test code ARUP = 3367519576) [facility] (NA, K, CL, CO2, GLUCOSE, BUN, CREATININE, CA)2020-10-27 12:54:00 Test Item Value Reference Range Interpretation Comments NA (test code = 136 mmol/L 135-145 0738504445) K (test code = 3.7 mmol/L 3.5-5 7366788208) CL (test code = 103 mmol/L 98-108 4057953289) CO2 TOTAL (test code = 27 mmol/L 23-31 7800304638) AGAP (test code = 2-16 9719562597) BUN (test code = 15 mg/dL 7-23 1059739068) GLUCOSE (test code = 86 mg/dL 70-110 2522149021) CREATININE (test code = 0.45 mg/dL 0.5-1.04 L 2821750043) CALCIUM (test code = 8.7 mg/dL 8.6-10.6 2870976423) eGFR Calculation mL/min/1.73m2 (Non-) (test code = 8616616091) eGFR Calculation mL/min/1.73m2 () (test code = 9469307385) TANESHA (test code = TANESHA) Association of [...] tests). Lab Interpretation Abnormal (test code = 86541-9) [facility] WITH [id number] 12:08:00 Test Item Value Reference Range Interpretation Comments WBC (test code = See_Comment [Automated 7390-2) message] The sy stem which generated this [...] (test code = 50.7 fL 39-49.9 H 47865-1) RDW-CV (test code = 14.8 % 12-15.5 788-0) PLT (test code = See_Comment [Automated 777-3) message] The sy stem which generated this result transmitted reference range : 166 - 358 10*3/ ?L. The reference r irvin was not used to interpret this result as normal/abnormal . MPV (test code = 11.3 fL 9.5-12.9 07762-3) NRBC/100 WBC (test See_Comment [Automat ed code = 6601708972) message] The system which generated this result transmitted reference range : 0.0 - 10.0 /100 WBCs. The refer ence range was not u sed to interpret th is result as normal/abnormal . NRBC x10^3 (test code <0.01 See_Comment [Auto mated = 4028724925) message] The s ystem which generated this result transmitted reference range : 10*3/?L. The reference range was not used to interpret this result as normal/abnormal . GRAN MAT (NEUT) % 76.2 % (test code = 770-8) IMM GRAN % (test code 0.40 % = 8525225374) LYMPH % (test code = 13.7 % 736-9) MONO % (test code = 8.4 % 5905-5) EOS % (test code = 0.9 % 713-8) BASO % (test code = 0.4 % 706-2) GRAN MAT x10^3(ANC) 4.18 10*3/uL 1.88-7.09 (test code = 5868420197) IMM GRAN x10^3 (test <0.03 0-0.06 code = 6696008558) LYMPH x10^3 (test code 0.75 10*3/uL 1.32-3.29 L = 731-0) MONO x10^3 (test code 0.46 10*3/uL 0.33-0.92 = 742-7) EOS x10^3 (test code = 0.05 10*3/uL 0.03-0.39 711-2) BASO x10^3 (test code <0.03 0.01-0.07 = 704-7) Lab Interpretation Abnormal (test code = 53596-0) [facility] HospitalPO[facility] GLUCOSE (AUTOMATED)2020-10-27 02:27:00 Test Item Value Reference Range Interpretation Comments POCT GLU (test code = 3096137848) 97 mg/dL 70-110 Lab Interpretation (test code = Normal 74343-0) [facility] HospitalLAB ONLY COVID [id number] 23:29:00COVID DMT InterpretationInterpretation/Recommendations: Molecular NAAT Tests for [...] COVID-19 testing the patient has had at [facility], including molecular NAAT testing (more commonly known as PCR testing and Rapid ID Now testing) and antibody testing. It does not take into account any testing that a patient has had outside of the [facility] medical record. [facility] LABORATORY SERVICESCOVID GsfoypeRCNZ-BnM-5 Rapid IDNOW (no units) ? ? Date ? Value ? 10/26/2020 ? Not Detected ? ? ? 10/11/2020 ? Not Detected ? [facility] LABORATORY SERVICESUnThe Hospitals of Providence Memorial CampusCT CHEST PULMONARY [id number] 21:51:22 1. 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 OSSEOUS STRUCTURES AND SOFT TISSUES: No focal [...] reviewed this study and agree with theabove report.[facility] HospitalCOVID-19 (ID NOW RAPID TESTING) 2020-10-26 20:17:00 Test Item Value Reference Range Interpretation Comments SARS-CoV-2 Rapid ID NOW Not Detected Not Detected (test code = 42293-0) TANESHA (test code = TANESHA) ID NOW COVID-19 Assay is an isothermal nucleic acid amplification test intended for the qualitative detection of nucleic acid from SARS-CoV-2 viral RNA in nasopharyngeal (ICU RN) specimens. It is used under Emergency Use [...] indicated. Lab Interpretation Normal (test code = 28313-1) [facility] HospitalMR BRAIN W WO [id number] 19:11:48 No acute intracranial abnormality. Preliminary Report [...] related toretained secretion within pneumatized petrous apex. [facility], Radiant Results Inft User - 10/26/2020 1:12 [...] reviewed this study and agree with the abovereport.[facility] HospitalXR CHEST 1 [id number] 15:47:30EXAM: XR CHEST 1 VW HISTORY: Fever [...] clear otherwise. The heart and great vessels arenormal.[facility] HospitalD-[id number] 11:22:00 Test Item Value Reference Interpretation Comments Range D-DIMER (test code = See_Comment H [Autom ated 8209096881) message] The system which generated this result [...] diagnosis. Lab Interpretation Abnormal (test code = 19753-9) [facility] HospitalURINALYSIS2021-01-20 09:07:00 Test Item Value Reference Range Interpretation Comments APPEARANCE (test code = Cloudy Clear A 6260147367) COLOR (test code = Yellow Yellow 2131905044) PH (test code = 4.8-8.0 5979641391) SP GRAVITY (test code = 1.003-1.030 5267645233) GLU U QUAL (test code = Normal Normal 7698858052) BLOOD (test code = Negative Negative 7357667561) KETONES (test code = Negative Negative 0317491468) PROTEIN (test code = Negative Negative 2887-8) UROBILIN (test code = Normal Normal 6595367024) BILIRUBIN (test code = Negative Negative 4249843403) NITRITE (test code = Negative Negative 9096792654) LEUK EDINSON (test code = Negative Negative 9102404451) RBC/HPF (test code = See_Comment [Autom ated message] 8613694815) The system [employer] generated this result transmitted ref erence range: 0 - 3 HP F. The reference range was not used to int erpret this result as normal/abnormal . WBC/HPF (test code = See_Comment [Autom ated message] 2931953838) The system [employer] generated this result transmitted ref erence range: 0 - 5 HP F. The reference range was not used to int erpret this result as normal/abnormal . BACTERIA (test code = Negative Negative 8212968734) AMORPHOUS (test code = Moderate Rare HPF A 0488055349) ASCORBIC ACID (test code Negative = 5308488208) Lab Interpretation (test Abnormal code = 84945-2) [facility] Hospital[facility] METABOLIC PANEL (NA, K, CL, CO2, GLUCOSE, BUN, CREATININE, CA)2020-10-26 08:22:00 Test Item Value Reference Range Interpretation Comments NA (test code = 134 mmol/L 135-145 L 2739295319) K (test code = 4.0 mmol/L 3.5-5 1063761827) CL (test code = 100 mmol/L 98-108 2209666519) CO2 TOTAL (test code = 28 mmol/L 23-31 3453192130) AGAP (test code = 2-16 1046487853) BUN (test code = 16 mg/dL 7-23 5099390255) GLUCOSE (test code = 157 mg/dL 70-110 H 8376625876) CREATININE (test code = 0.57 mg/dL 0.5-1.04 6560295827) CALCIUM (test code = 9.2 mg/dL 8.6-10.6 6522646293) eGFR Calculation mL/min/1.73m2 (Non-) (test code = 1653472576) eGFR Calculation mL/min/1.73m2 () (test code = 3891094324) TANESHA (test code = TANESHA) Association of [...] tests). Lab Interpretation Abnormal (test code = 60038-1) [facility] HospitalMAGNESIUM2021-01-20 08:22:00 Test Item Value Reference Range Interpretation Comments MAGNESIUM (test code = 7732458396) 1.8 mg/dL 1.7-2.4 Lab Interpretation (test code = Normal 34334-1) [facility] (NA, K, CL, CO2, GLUCOSE, BUN, CREATININE, CA)2020-10-25 11:09:00 Test Item Value Reference Range Interpretation Comments NA (test code = 135 mmol/L 135-145 2838762280) K (test code = 4.1 mmol/L 3.5-5 8198987304) CL (test code = 102 mmol/L 98-108 3606232674) CO2 TOTAL (test code = 30 mmol/L 23-31 7434771527) AGAP (test code = 2-16 3838646807) BUN (test code = 9 mg/dL 7-23 7287534939) GLUCOSE (test code = 94 mg/dL 70-110 0075176707) CREATININE (test code = 0.42 mg/dL 0.5-1.04 L 3513026634) CALCIUM (test code = 8.6 mg/dL 8.6-10.6 1066839713) eGFR Calculation mL/min/1.73m2 (Non-) (test code = 2042732085) eGFR Calculation mL/min/1.73m2 () (test code = 0000523206) TANESHA (test code = TANESHA) Association of [...] tests). Lab Interpretation Abnormal (test code = 19357-2) [facility] HospitalMAGNESIUM2021-01-19 11:09:00 Test Item Value Reference Range Interpretation Comments MAGNESIUM (test code = 4935101426) 1.8 mg/dL 1.7-2.4 Lab Interpretation (test code = Normal 16830-3) [facility] WITH [id number] 11:00:00 Test Item Value Reference Range Interpretation Comments WBC (test code = See_Comment [Automated 2690-2) message] The sy stem which generated this result transmitted reference range : 4.30 - 11.10 10*3/?L. The reference range was not used to interpret this result as normal/abnormal . RBC (test code = See_Comment L [Automated 369-8) message] The sy stem which generated this [...] RDW-SD (test code = 48.7 fL 39-49.9 40301-9) RDW-CV (test code = 14.3 % 12-15.5 788-0) PLT (test code = See_Comment [Automated 777-3) message] The sy stem which generated this result transmitted reference range : 166 - 358 10*3/ ?L. The reference r irvin was not used to interpret this result as normal/abnormal . MPV (test code = 11.3 fL 9.5-12.9 93831-8) NRBC/100 WBC (test See_Comment [Automat ed code = 3334592327) message] The system which generated this result transmitted reference range : 0.0 - 10.0 /100 WBCs. The refer ence range was not u sed to interpret th is result as normal/abnormal . NRBC x10^3 (test code <0.01 See_Comment [Auto mated = 3269929732) message] The s ystem which generated this result transmitted reference range : 10*3/?L. The reference range was not used to interpret this result as normal/abnormal . GRAN MAT (NEUT) % 77.5 % (test code = 770-8) IMM GRAN % (test code 0.50 % = 9078961467) LYMPH % (test code = 10.3 % 736-9) MONO % (test code = 9.9 % 5905-5) EOS % (test code = 1.3 % 713-8) BASO % (test code = 0.5 % 706-2) GRAN MAT x10^3(ANC) 4.76 10*3/uL 1.88-7.09 (test code = 0420711429) IMM GRAN x10^3 (test 0.03 10*3/uL 0-0.06 code = 8819025491) LYMPH x10^3 (test code 0.63 10*3/uL 1.32-3.29 L = 731-0) MONO x10^3 (test code 0.61 10*3/uL 0.33-0.92 = 742-7) EOS x10^3 (test code = 0.08 10*3/uL 0.03-0.39 711-2) BASO x10^3 (test code 0.03 10*3/uL 0.01-0.07 = 704-7) Lab Interpretation Abnormal (test code = 13313-2) [facility] [id number] 20:53:00 Test Item Value Reference Range Interpretation Comments FREE T4 (test code = See_Comment [Autom ated message] 6653064007) The system [employer] generated this result transmitted ref erence range: 0.78 - 2 .20 ng/dL:. The ref erence range was not u sed to interpret this result as normal/abnor mal. Lab Interpretation (test Normal code = 21115-2) [facility] HospitalTHYROID STIMULATING [id number] 17:22:00 Test Item Value Reference Range Interpretation Comments TSH (test code = See_Comment Biotin has been 7554262979) reported to cau se a negative bias, interpret resul ts relative to zaina arana's use of biotin. [Automated mess age] The system [employer] generated this result transmitted ref erence range: 0.45 - 4 .70 mIU/L. The refe rence range was not u sed to interpret this result as normal/abnor mal. Lab Interpretation (test Normal code = 83415-4) [facility] METABOLIC PANEL (NA, K, CL, CO2, GLUCOSE, BUN, CREATININE, CA)2020-10-24 09:56:00 Test Item Value Reference Range Interpretation Comments NA (test code = 135 mmol/L 135-145 7970291212) K (test code = 3.5 mmol/L 3.5-5 9153231499) CL (test code = 104 mmol/L 98-108 6866567611) CO2 TOTAL (test code = 28 mmol/L 23-31 3741051792) AGAP (test code = 2-16 1645962143) BUN (test code = 12 mg/dL 7-23 4844880808) GLUCOSE (test code = 96 mg/dL 70-110 6520590113) CREATININE (test code = 0.42 mg/dL 0.5-1.04 L 5983058332) CALCIUM (test code = 8.6 mg/dL 8.6-10.6 6166376390) eGFR Calculation mL/min/1.73m2 (Non-) (test code = 6143867547) eGFR Calculation mL/min/1.73m2 () (test code = 6752378465) TANESHA (test code = TANESHA) Association of [...] tests). Lab Interpretation Abnormal (test code = 47179-0) [facility]2021-[facility]-18 09:56:00 Test Item Value Reference Range Interpretation Comments MAGNESIUM (test code = 0464072658) 1.8 mg/dL 1.7-2.4 Lab Interpretation (test code = Normal 75055-4) [facility] WITH [id number] 09:35:00 Test Item Value Reference Range Interpretation Comments WBC (test code = See_Comment L [Automated 9090-2) message] The sy stem which generated this result transmitted reference range : 4.30 - 11.10 10*3/?L. The reference range was not used to interpret this result as normal/abnormal . RBC (test code = See_Comment L [Automated 829-8) message] The sy stem which generated this [...] RDW-SD (test code = 47.4 fL 39-49.9 62475-1) RDW-CV (test code = 14.0 % 12-15.5 788-0) PLT (test code = See_Comment [Automated 777-3) message] The sy stem which generated this result transmitted reference range : 166 - 358 10*3/ ?L. The reference r irvin was not used to interpret this result as normal/abnormal . MPV (test code = 11.1 fL 9.5-12.9 38399-4) NRBC/100 WBC (test See_Comment [Automat ed code = 5229678770) message] The system which generated this result transmitted reference range : 0.0 - 10.0 /100 WBCs. The refer ence range was not u sed to interpret th is result as normal/abnormal . NRBC x10^3 (test code <0.01 See_Comment [Auto mated = 8249933729) message] The s ystem which generated this result transmitted reference range : 10*3/?L. The reference range was not used to interpret this result as normal/abnormal . GRAN MAT (NEUT) % 64.9 % (test code = 770-8) IMM GRAN % (test code 0.30 % = 3253736433) LYMPH % (test code = 16.2 % 736-9) MONO % (test code = 16.2 % 5905-5) EOS % (test code = 2.1 % 713-8) BASO % (test code = 0.3 % 706-2) GRAN MAT x10^3(ANC) 2.20 10*3/uL 1.88-7.09 (test code = 8653129475) IMM GRAN x10^3 (test <0.03 0-0.06 code = 7871705682) LYMPH x10^3 (test code 0.55 10*3/uL 1.32-3.29 L = 731-0) MONO x10^3 (test code 0.55 10*3/uL 0.33-0.92 = 742-7) EOS x10^3 (test code = 0.07 10*3/uL 0.03-0.39 711-2) BASO x10^3 (test code <0.03 0.01-0.07 = 704-7) Lab Interpretation Abnormal (test code = 48825-0) [facility] CULTURE [id number] 00:01:00 Test Item Value Reference Range Interpretation Comments Blood Culture-Aerobic No organisms No growth Previo us (test code = 66658-1) isolated prelim inary verified result was Culture In Progress on 10/17/2020 at 21 01 CSTPrevious preliminary verified result was No growth a t 24 hours on 10/18/2020 at 18 01 CSTPrevious preliminary verified result was No growth a t 48 hours on 10/19/2020 at 18 01 CSTPrevious preliminary verified result was No growth a t 72 hours on 10/20/2020 at 18 01 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 Blood No organisms No growth Previous Culture-Anaerobic isolated preliminar y (test code = 40527-2) verifi ed result was Culture In Progress on 10/17/2020 at 21 01 CSTPrevious preliminary verified result was No growth a t 24 hours on 10/18/2020 at 18 01 CSTPrevious preliminary verified result was No growth a t 48 hours on 10/19/2020 at 18 01 CSTPrevious preliminary verified result was No growth a t 72 hours on 10/20/2020 at 18 01 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 Interpretation Normal (test code = 28982-9) [facility] CULTURE [id number] 22:01:00 Test Item Value Reference Range Interpretation Comments Blood Culture-Aerobic No organisms No growth Previo us (test code = 24547-8) isolated prelim inary verified result was Culture In Progress on 10/17/2020 at 19 01 CSTPrevious preliminary verified result was No growth a t 24 hours on 10/18/2020 at 16 01 CSTPrevious preliminary verified result was No growth a t 48 hours on 10/19/2020 at 16 01 CSTPrevious preliminary verified result was No growth a t 72 hours on 10/20/2020 at 16 01 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 Blood No organisms No growth Previous Culture-Anaerobic isolated preliminar y (test code = 07692-5) verifi ed result was Culture In Progress on 10/17/2020 at 19 01 CSTPrevious preliminary verified result was No growth a t 24 hours on 10/18/2020 at 16 01 CSTPrevious preliminary verified result was No growth a t 48 hours on 10/19/2020 at 16 01 CSTPrevious preliminary verified result was No growth a t 72 hours on 10/20/2020 at 16 01 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 Normal (test code = 99299-9) [facility] METABOLIC PANEL (NA, K, CL, CO2, GLUCOSE, BUN, CREATININE, CA)2020-10-22 11:53:00 Test Item Value Reference Range Interpretation Comments NA (test code = 130 mmol/L 135-145 L 7819253393) K (test code = 4.1 mmol/L 3.5-5 0239494506) CL (test code = 99 mmol/L 98-108 8069629071) CO2 TOTAL (test code = 31 mmol/L 23-31 6614504567) AGAP (test code = <1 2-16 L 1327202030) BUN (test code = 16 mg/dL 7-23 4884987943) GLUCOSE (test code = 100 mg/dL 70-110 7026863602) CREATININE (test code = 0.42 mg/dL 0.5-1.04 L 6306714101) CALCIUM (test code = 8.4 mg/dL 8.6-10.6 L 2712430978) eGFR Calculation mL/min/1.73m2 (Non-) (test code = 6914051256) eGFR Calculation mL/min/1.73m2 () (test code = 8657525970) TANESHA (test code = TANESHA) Association of [...] tests). Lab Interpretation Abnormal (test code = 26502-5) [facility] WITH [id number] 10:59:00 Test Item Value Reference Range Interpretation Comments WBC (test code = See_Comment L [Automated 6090-2) message] The sy stem which generated this [...] RDW-SD (test code = 46.3 fL 39-49.9 47142-0) RDW-CV (test code = 13.7 % 12-15.5 788-0) PLT (test code = See_Comment [Automated 777-3) message] The sy stem which generated this result transmitted reference range : 166 - 358 10*3/ ?L. The reference r irvin was not used to interpret this result as normal/abnormal . MPV (test code = 11.7 fL 9.5-12.9 03528-0) NRBC/100 WBC (test See_Comment [Automat ed code = 4108949042) message] The system which generated this result transmitted reference range : 0.0 - 10.0 /100 WBCs. The refer ence range was not u sed to interpret th is result as normal/abnormal . NRBC x10^3 (test code <0.01 See_Comment [Auto mated = 5112732116) message] The s ystem which generated this result transmitted reference range : 10*3/?L. The reference range was not used to interpret this result as normal/abnormal . GRAN MAT (NEUT) % 60.1 % (test code = 770-8) IMM GRAN % (test code 0.60 % = 3926091164) LYMPH % (test code = 18.2 % 736-9) MONO % (test code = 18.2 % 5905-5) EOS % (test code = 2.0 % 713-8) BASO % (test code = 0.9 % 706-2) GRAN MAT x10^3(ANC) 2.12 10*3/uL 1.88-7.09 (test code = 9428119950) IMM GRAN x10^3 (test <0.03 0-0.06 code = 9732601521) LYMPH x10^3 (test code 0.64 10*3/uL 1.32-3.29 L = 731-0) MONO x10^3 (test code 0.64 10*3/uL 0.33-0.92 = 742-7) EOS x10^3 (test code = 0.07 10*3/uL 0.03-0.39 711-2) BASO x10^3 (test code 0.03 10*3/uL 0.01-0.07 = 704-7) Lab Interpretation Abnormal (test code = 22483-0) [facility] [id number] 16:40:00 Test Item Value Reference Range Interpretation Comments CSF CULTURE (test No organisms isolated code = 606-4) Gram stain (test code Occasional (Rare) = 664-3) Mononuclear cells [facility]. Sendout- Meningtis Panel [facility] [id number] 2020-10-21 13:57:00 Test Item Value Reference Range Interpretation Comments Miscellaneous Test (test See scanned report code = 0615793022) Performing Lab (test code [facility] = 4196893531) [facility] Sendout- Paraneoplastic panel [facility] [id number] 13:15:00 Test Item Value Reference Range Interpretation Comments Miscellaneous Test (test See scanned report code = 5581100324) Performing Lab (test code [facility] = 3539241496) [facility] 11:27:00 Test Item Value Reference Range Interpretation Comments MAGNESIUM (test code = 6465449844) 1.6 mg/dL 1.7-2.4 L Lab Interpretation (test code = Abnormal 75809-2) [facility] METABOLIC PANEL (NA, K, CL, CO2, GLUCOSE, BUN, CREATININE, CA)2020-10-21 11:27:00 Test Item Value Reference Range Interpretation Comments NA (test code = 133 mmol/L 135-145 L 7845224076) K (test code = 3.5 mmol/L 3.5-5 1063556034) CL (test code = 103 mmol/L 98-108 1435888706) CO2 TOTAL (test code = 24 mmol/L 23-31 0469737515) AGAP (test code = 2-16 3838332494) BUN (test code = 10 mg/dL 7-23 2213279696) GLUCOSE (test code = 90 mg/dL 70-110 4815812041) CREATININE (test code = 0.39 mg/dL 0.5-1.04 L 2814833234) CALCIUM (test code = 7.8 mg/dL 8.6-10.6 L 8825497469) eGFR Calculation mL/min/1.73m2 (Non-) (test code = 5718304949) eGFR Calculation mL/min/1.73m2 () (test code = 9360071627) TANESHA (test code = TANESHA) Association of [...] tests). Lab Interpretation Abnormal (test code = 17465-3) [facility] WITH [id number] 11:22:00 Test Item Value Reference Range Interpretation Comments WBC (test code = See_Comment L [Automated 9598-2) message] The sy stem which generated this result transmitted reference range : 4.30 - 11.10 10*3/?L. The reference range was not used to interpret this result as normal/abnormal . RBC (test code = See_Comment L [Automated 429-8) message] The sy stem which generated this [...] RDW-SD (test code = 46.9 fL 39-49.9 91718-8) RDW-CV (test code = 13.6 % 12-15.5 788-0) PLT (test code = See_Comment [Automated 777-3) message] The sy stem which generated this result transmitted reference range : 166 - 358 10*3/ ?L. The reference r irvin was not used to interpret this result as normal/abnormal . MPV (test code = 11.6 fL 9.5-12.9 66996-2) NRBC/100 WBC (test See_Comment [Automat ed code = 7492416473) message] The system which generated this result transmitted reference range : 0.0 - 10.0 /100 WBCs. The refer ence range was not u sed to interpret th is result as normal/abnormal . NRBC x10^3 (test code <0.01 See_Comment [Auto mated = 1262857195) message] The s ystem which generated this result transmitted reference range : 10*3/?L. The reference range was not used to interpret this result as normal/abnormal . GRAN MAT (NEUT) % 58.6 % (test code = 770-8) IMM GRAN % (test code 0.30 % = 8568373694) LYMPH % (test code = 21.8 % 736-9) MONO % (test code = 17.3 % 5905-5) EOS % (test code = 1.0 % 713-8) BASO % (test code = 1.0 % 706-2) GRAN MAT x10^3(ANC) 1.80 10*3/uL 1.88-7.09 L (test code = 2210645998) IMM GRAN x10^3 (test <0.03 0-0.06 code = 7876788951) LYMPH x10^3 (test code 0.67 10*3/uL 1.32-3.29 L = 731-0) MONO x10^3 (test code 0.53 10*3/uL 0.33-0.92 = 742-7) EOS x10^3 (test code = 0.03 10*3/uL 0.03-0.39 711-2) BASO x10^3 (test code 0.03 10*3/uL 0.01-0.07 = 704-7) TOXIC CHANGES (test Present A code = 803-7) Lab Interpretation Abnormal (test code = 57635-5) [facility], [id number] 18:19:00 Test Item Value Reference Range Interpretation Comments ANCA TITER (test code <1:20 See_Comment The AN CA IFA is <1:20; = 44244-6) therefore, no f urther testing will be [...] or arthritis.Pe rformed By: [facility] [address] [place], [place] [address] Director: Sherry Murillo MD [Get Fractal essage] The system which ge nerated this result transmit carol reference range : <1:20. The reference range was not used to interpr et this result as anoop l/abnormal. [facility] Paraneoplastic CSF [facility] [id number] 17:36:00 Test Item Value Reference Range Interpretation Comments Miscellaneous Test (test See scanned report code = 0990042389) Performing Lab (test code [facility] = 6066409693) [facility] (ALB,T.PRO,BILI T,BU/BC,ALT,AST,ALK PHOS)2020-10-20 15:53:00 Test Item Value Reference Range Interpretation Comments TOTAL BILI (test code = 2868052509) 0.2 mg/dL 0.1-1.1 BILI UNCON (test code = 1202875318) 0.2 mg/dL 0.1-1.1 BILI CONJ (test code = 9171051744) 0.0 mg/dL 0-0.3 T PROTEIN (test code = 1649794958) 7.4 g/dL 6.3-8.2 ALBUMIN (test code = 6471689361) 2.9 g/dL 3.5-5 L ALK PHOS (test code = 6797607132) 87 U/L 34-122 ALTv (test code = 1742-6) 38 U/L 5-35 H AST(SGOT) (test code = 1116275535) 64 U/L 13-40 H Lab Interpretation (test code = Abnormal 44378-9) [facility] WITH [id number] 11:27:00 Test Item Value Reference Range Interpretation Comments WBC (test code = See_Comment L [Automated 3590-2) message] The sy stem which generated this result transmitted reference range : 4.30 - 11.10 10*3/?L. The reference range was not used to interpret this result as normal/abnormal . RBC (test code = See_Comment L [Automated 939-8) message] The sy stem which generated this [...] RDW-SD (test code = 45.2 fL 39-49.9 69359-6) RDW-CV (test code = 13.5 % 12-15.5 788-0) PLT (test code = See_Comment [Automated 777-3) message] The sy stem which generated this result transmitted reference range : 166 - 358 10*3/ ?L. The reference r irvin was not used to interpret this result as normal/abnormal . MPV (test code = 11.3 fL 9.5-12.9 59674-8) NRBC/100 WBC (test See_Comment [Automat ed code = 7691582804) message] The system which generated this result transmitted reference range : 0.0 - 10.0 /100 WBCs. The refer ence range was not u sed to interpret th is result as normal/abnormal . NRBC x10^3 (test code <0.01 See_Comment [Auto mated = 5445417622) message] The s ystem which generated this result transmitted reference range : 10*3/?L. The reference range was not used to interpret this result as normal/abnormal . GRAN MAT (NEUT) % 62.2 % (test code = 770-8) IMM GRAN % (test code 0.30 % = 3763142235) LYMPH % (test code = 17.4 % 736-9) MONO % (test code = 17.7 % 5905-5) EOS % (test code = 1.7 % 713-8) BASO % (test code = 0.7 % 706-2) GRAN MAT x10^3(ANC) 1.79 10*3/uL 1.88-7.09 L (test code = 7011224145) IMM GRAN x10^3 (test <0.03 0-0.06 code = 6547796184) LYMPH x10^3 (test code 0.50 10*3/uL 1.32-3.29 L = 731-0) MONO x10^3 (test code 0.51 10*3/uL 0.33-0.92 = 742-7) EOS x10^3 (test code = 0.05 10*3/uL 0.03-0.39 711-2) BASO x10^3 (test code <0.03 0.01-0.07 = 704-7) BASO STIPPLING (test Present A code = 703-9) Lab Interpretation Abnormal (test code = 51625-6) [facility] [id number] 11:16:00 Test Item Value Reference Range Interpretation Comments TROPONIN I (test 0.003 ng/mL See_Comment [Automated code = 3542420816) message] The system which generated this result [...] ? Lab Interpretation Normal (test code = 24176-0) [facility] HospitalPROTHROMBIN TIME / [id number] 11:04:00 Test Item Value Reference Range Interpretation Comments PROTIME PATIENT (test See_Comment [Auto mated message] code = 5964-2) The system [employer] generated this result transmitted ref erence range: 10.1 - 1 2.6 Seconds. The re ference range was not u sed to interpret this result as normal/abnor mal. INR (test code = 6301-6) Nor mal INR <1.1; Warfarin Therap eutic range 2.0 to 3. 0 or 2.5 to 3.5, dep ending upon the indica tions. Lab Interpretation (test Normal code = 25511-8) [facility] HospitalACTIVATED PARTIAL THRMPLAS [id number] 11:04:00 Test Item Value Reference Range Interpretation Comments APTT Patient (test code = See_Comment [ Automated message] 3173-2) The system [employer] generated this result transmitted ref erence range: 26 - 36 Seconds. The re ference range was not u sed to interpret this result as normal/abnor mal. Lab Interpretation (test Normal code = 16331-7) [facility] HospitalMAGNESIUM2021-01-14 09:53:00 Test Item Value Reference Range Interpretation Comments MAGNESIUM (test code = 9499064120) 1.8 mg/dL 1.7-2.4 Lab Interpretation (test code = Normal 35083-5) [facility] (NA, K, CL, CO2, GLUCOSE, BUN, CREATININE, CA)2020-10-20 09:53:00 Test Item Value Reference Range Interpretation Comments NA (test code = 134 mmol/L 135-145 L 4211776352) K (test code = 4.3 mmol/L 3.5-5 2873101503) CL (test code = 101 mmol/L 98-108 6790511532) CO2 TOTAL (test code = 32 mmol/L 23-31 H 7052337237) AGAP (test code = 2-16 L 1836163742) BUN (test code = 14 mg/dL 7-23 2655226327) GLUCOSE (test code = 109 mg/dL 70-110 6462081792) CREATININE (test code = 0.47 mg/dL 0.5-1.04 L 5665223063) CALCIUM (test code = 8.0 mg/dL 8.6-10.6 L 7566455065) eGFR Calculation mL/min/1.73m2 (Non-) (test code = 6545126519) eGFR Calculation mL/min/1.73m2 () (test code = 1672781745) TANESHA (test code = TANESHA) Association of [...] tests). Lab Interpretation Abnormal (test code = 52928-0) [facility] HospitalN-methyl-D-Aspartate Receptor Ab, CSF 2020-10-19 21:52:00 Test Item Value Reference Range Interpretation Comments T-ojvwks-T-Aspartate < 1:1 See_Comment Antibo dies to NMDA were Receptor Ab, CSF not detecte d, no additional (test code = 87971-1) testin g to follow.INTERPRE TIVE INFORMATION: H-ypwuui-W-Aspa rtate ?Receptor Ab, CSF Anti-NM DA receptor [...] encephalitis. Test developed and characteristics determined by [employer] Jovani cadena. See Compliance Stat ement B: [employer] Direct/CSP erformed By: [employer] [facility] [address] [place], [place] [address] Director: Sherry Murillo MD [Automated m essage] The system which ge nerated this result transmit carol reference range : <1:1. The reference range was not used to interpr et this result as anoop l/abnormal. [facility]XR [id number] 16:55:02 Dobbhoff tube projects over the gastric [...] and soft tissues are within normal limits. [facility], Radiant Results Inft User - 10/19/2020 10:56 [...] reviewed this study and agree with theabove report.[facility] HospitalCARCINOEMBRYONIC ANTIGEN 2020-10-19 15:44:00 Test Item Value Reference Range Interpretation Comments CEA (test code = 0.5 ng/mL 0-10 9175981364) TANESHA (test code = TANESHA) CEA Ranges: Non-Smokers ?0-5.0 ng/mLSmokers ? ? ?0-10.0 ng/mL Lab Interpretation (test Normal code = 27083-3) [facility] HospitalMR ABDOMEN W WO CONTRAST [id number] 13:26:12 Pancreatic parenchyma is atrophic and the duct is prominent with noevidence of solid lesions. 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 Preliminary Report Dictated by Resident: Valeriy Rock I, Liza ?MD Chely., have reviewed this study and agree with [...] VESSELS: Unremarkable. BONES AND SOFT TISSUES: Unremarkable. [facility], Radiant Results Inft User - 10/19/2020 [...] this study and agree with theabove report. [facility] HospitalM[facility] Sendout- Men/Encep [facility] [id number] 2020-10-19 13:26:00 Test Item Value Reference Range Interpretation Comments Miscellaneous Test (test See scanned report code = 5547994339) Performing Lab (test code [facility] = 0041254893) [facility] HospitalHBV BY REAL-TIME [id number] 12:40:00 Test Item Value Reference Range Interpretation Comments HBV Quantitative Not Detected Not Detected Interpretation (test code = 85191-1) TANESHA (test code = TANESHA) The test [...] Log IU/mL >10^9 ?IU/mL, ?>9.00 ?Log IU/mL [facility]OL[facility] PAN[facility] (NA, K, CL, CO2, GLUCOSE, BUN, CREATININE, CA)2020-10-19 09:55:00 Test Item Value Reference Range Interpretation Comments NA (test code = 131 mmol/L 135-145 L 2672688716) K (test code = 3.6 mmol/L 3.5-5 8309677699) CL (test code = 99 mmol/L 98-108 1067191880) CO2 TOTAL (test code = 28 mmol/L 23-31 7175344398) AGAP (test code = 2-16 6809918366) BUN (test code = 9 mg/dL 7-23 4725963982) GLUCOSE (test code = 83 mg/dL 70-110 0083754526) CREATININE (test code = 0.78 mg/dL 0.5-1.04 5665410498) CALCIUM (test code = 8.3 mg/dL 8.6-10.6 L 9213095270) eGFR Calculation mL/min/1.73m2 (Non-) (test code = 9317839896) eGFR Calculation mL/min/1.73m2 () (test code = 9315560555) TANESHA (test code = TANESHA) Association of [...] tests). Lab Interpretation Abnormal (test code = 86494-5) [facility] 09:55:00 Test Item Value Reference Range Interpretation Comments MAGNESIUM (test code = 1545950093) 1.6 mg/dL 1.7-2.4 L Lab Interpretation (test code = Abnormal 71086-2) [facility] METABOLIC PANEL (NA, K, CL, CO2, GLUCOSE, BUN, CREATININE, CA)2020-10-19 04:33:00 Test Item Value Reference Range Interpretation Comments NA (test code = 132 mmol/L 135-145 L 8697886377) K (test code = 4.2 mmol/L 3.5-5 Slight 3072672067) hemolysis CL (test code = 103 mmol/L 98-108 1041730897) CO2 TOTAL (test code 22 mmol/L 23-31 L = 4540907956) AGAP (test code = 2-16 9553867702) BUN (test code = 8 mg/dL 7-23 Slight 6504155024) hemolysis GLUCOSE (test code = 79 mg/dL 70-110 9731266059) CREATININE (test code 0.39 mg/dL 0.5-1.04 L = 8353577104) CALCIUM (test code = 8.2 mg/dL 8.6-10.6 L 8476735135) eGFR Calculation mL/min/1.73m2 (Non-) (test code = 4403967657) eGFR Calculation mL/min/1.73m2 () (test code = 8239269226) TANESHA (test code = TANESHA) Association of [...] tests). Lab Interpretation Abnormal (test code = 00232-7) [facility] BRAIN W WO [id number] 23:03:05 Impression: No acute abnormality diffusion-weighted imaging.Sequela [...] identified in the right petrous apex surrounding L4ydirjglpwkee signal centrally.Two foci of susceptibility signal loss [...] identified in the right petrous apex surrounding A9hxlcxzdrltey signal centrally.Two foci of s usceptibility signal [...] this study and agree with theabove report. [facility] HospitalANTI-NUCLEAR ANTIBODY [id number] 18:56:00 Test Item Value Reference Range Interpretation Comments CARLOS ENRIQUE (test code = Negative Negative 7590076240) TANESHA (test code = TANESHA) Negative - [...] separately. Lab Interpretation (test Normal code = 39795-0) [facility]XR [id number] 15:27:46FINDINGS/IMPRESSION: The Dobbhoff tube terminates in the [...] agree with theabove report.EXAM: XR KUB HISTORY: confirm DHT COMPARISON: KUB 10/14/2020. [facility], Radiant Results Inft User - 10/18/2020 9:28 [...] reviewed this study and agree with theabove report.[facility] BASIC METABOLIC PANEL (NA, K, CL, CO2, GLUCOSE, BUN, CREATININE, CA)2020-10-18 11:41:00 Test Item Value Reference Range Interpretation Comments NA (test code = 130 mmol/L 135-145 L 2349178660) K (test code = 2.9 mmol/L 3.5-5 LL 5058205023) CL (test code = 97 mmol/L 98-108 L 9136632828) CO2 TOTAL (test code = 31 mmol/L 23-31 4992999231) AGAP (test code = 2-16 8747011900) BUN (test code = 7 mg/dL 7-23 1321274073) GLUCOSE (test code = 90 mg/dL 70-110 1969587770) CREATININE (test code = 0.72 mg/dL 0.5-1.04 2442736158) CALCIUM (test code = 8.2 mg/dL 8.6-10.6 L 3404137582) eGFR Calculation mL/min/1.73m2 (Non-) (test code = 2057099050) eGFR Calculation mL/min/1.73m2 () (test code = 5365811413) TANESHA (test code = TANESHA) Association of [...] tests). Lab Interpretation Abnormal (test code = 12711-7) [facility] 11[facility]28:00 Test Item Value Reference Range Interpretation Comments MAGNESIUM (test code = 1585060529) 1.7 mg/dL 1.7-2.4 Lab Interpretation (test code = Normal 26042-5) [facility] WITH [id number] 11:04:00 Test Item Value Reference Range Interpretation [...] RDW-SD (test code = 44.5 fL 39-49.9 16663-2) RDW-CV (test code = 13.2 % 12-15.5 788-0) PLT (test code = See_Comment [Automated 777-3) message] The sy stem which generated this result transmitted reference range : 166 - 358 10*3/ ?L. The reference r irvin was not used to interpret this result as normal/abnormal . MPV (test code = 11.8 fL 9.5-12.9 66773-8) NRBC/100 WBC (test See_Comment [Automat ed code = 0377559357) message] The system which generated this result transmitted reference range : 0.0 - 10.0 /100 WBCs. The refer ence range was not u sed to interpret th is result as normal/abnormal . NRBC x10^3 (test code <0.01 See_Comment [Auto mated = 0417847343) message] The s ystem which generated this result transmitted reference range : 10*3/?L. The reference range was not used to interpret this result as normal/abnormal . GRAN MAT (NEUT) % 68.2 % (test code = 770-8) IMM GRAN % (test code 0.60 % = 2972220994) LYMPH % (test code = 13.9 % 736-9) MONO % (test code = 14.2 % 5905-5) EOS % (test code = 2.5 % 713-8) BASO % (test code = 0.6 % 706-2) GRAN MAT x10^3(ANC) 2.16 10*3/uL 1.88-7.09 (test code = 5344135568) IMM GRAN x10^3 (test <0.03 0-0.06 code = 4997310868) LYMPH x10^3 (test code 0.44 10*3/uL 1.32-3.29 L = 731-0) MONO x10^3 (test code 0.45 10*3/uL 0.33-0.92 = 742-7) EOS x10^3 (test code = 0.08 10*3/uL 0.03-0.39 711-2) BASO x10^3 (test code <0.03 0.01-0.07 = 704-7) Lab Interpretation Abnormal (test code = 94345-6) [facility]URINALYSIS2021-[facility]-11 23:14:00 Test Item Value Reference Range Interpretation Comments APPEARANCE (test code = Hazy Clear A 8285498282) COLOR (test code = Yellow Yellow 3599117347) PH (test code = 4.8-8.0 2218911851) SP GRAVITY (test code = 1.003-1.030 2948424472) GLU U QUAL (test code = Normal Normal 5710521150) BLOOD (test code = Negative Negative 0830662708) KETONES (test code = Negative Negative 6147330689) PROTEIN (test code = Negative Negative 2887-8) UROBILIN (test code = Normal Normal 2129002509) BILIRUBIN (test code = Negative Negative 2689263329) NITRITE (test code = Negative Negative 0530597753) LEUK EDINSON (test code = Negative Negative 9794195610) RBC/HPF (test code = See_Comment [Autom ated message] 2980753454) The system Slingbox generated this result transmitted ref erence range: 0 - 3 HP F. The reference range was not used to int erpret this result as normal/abnormal . WBC/HPF (test code = See_Comment [Autom ated message] 3816861643) The system Sling[employer] generated this result transmitted ref erence range: 0 - 5 HP F. The reference range was not used to int erpret this result as normal/abnormal . BACTERIA (test code = Few Negative A 9828419789) AMORPHOUS (test code = Rare Rare HPF 1296508277) Lab Interpretation (test Abnormal code = 44208-3) [facility] (CA 19-9)2020-10-17 21:15:00 Test Item Value Reference Range Interpretation Comments CA 19-9 (test code = 18.9 U/mL 0-35 9102574010) TANESHA (test code = TANESHA) Biotin has been reported to cause a negative bias, interpret results relative to patient's use of biotin. Lab Interpretation (test Normal code = 59580-4) [facility] HospitalCA-[id number] 21:15:00 Test Item Value Reference Range Interpretation Comments CA-125 (test code = 4424512624) 27.0 U/mL 0-35 Lab Interpretation (test code = Normal 07729-7) [facility] HospitalCT THORAX W [id number] 21:02:02 1.. Findings there may be seen [...] L1. Diffuseosteopenia. Preliminary Report Dictated by Resident: Farhat christian I, Nuris Maradiaga MD., have reviewed this study and agree [...] reviewed this study and agree with theabove report.[facility]-REACTIVE [id number] 21:00:00 Test Item Value Reference Range Interpretation Comments CRP (test code = 6029323815) 0.4 mg/dL <0.8 Lab Interpretation (test code = Normal 08449-3) [facility] HospitalSEDIMENTATION [id number] 20:11:00 Test Item Value Reference Range Interpretation Comments ESR (test code = See_Comment [Automated message] 5117971154) The system Slingbox generated this result transmitted ref erence range: 0 - 20 m m/HR. The reference r irvin was not used to interpret this result as normal/abnor mal. Lab Interpretation (test Normal code = 90290-8) [facility] METABOLIC PANEL (NA, K, CL, CO2, GLUCOSE, BUN, CREATININE, CA)2020-10-17 20:04:00 Test Item Value Reference Range Interpretation Comments NA (test code = 132 mmol/L 135-145 L 8353734519) K (test code = 3.5 mmol/L 3.5-5 5643143692) CL (test code = 99 mmol/L 98-108 3658298694) CO2 TOTAL (test code = 31 mmol/L 23-31 3953691249) AGAP (test code = 2-16 5677550646) BUN (test code = 8 mg/dL 7-23 8473149822) GLUCOSE (test code = 85 mg/dL 70-110 3611929314) CREATININE (test code = 0.33 mg/dL 0.5-1.04 L 5578839147) CALCIUM (test code = 8.7 mg/dL 8.6-10.6 9951334613) eGFR Calculation mL/min/1.73m2 (Non-) (test code = 3949242514) eGFR Calculation mL/min/1.73m2 () (test code = 6272994809) TANESHA (test code = TANESHA) Association of [...] tests). Lab Interpretation Abnormal (test code = 54271-5) [facility] HospitalLactic Acid Whole [id number] 19:42:00 Test Item Value Reference Range Interpretation Comments LACTIC ACID (test code = 0.79 mmol/L QUE S 7911694070) [facility] HospitalRHEUMATOID [id number] 18:54:00 Test Item Value Reference Range Interpretation Comments RF (test code = <20 See_Comment [Automated message] 6294565093) The system Slingbox generated this result transmitted ref erence range: <20 IU/m L. The reference range was not used to int erpret this result as normal/abnormal . Lab Interpretation (test Normal code = 71264-9) [facility]CT ABDOMEN PELVIS W [id number] 17:28:35 1. ?Mildly dilated common duct, measuring [...] reviewed this study and agree with theabove report.[facility] HospitalHCV BY [id number] 12:45:00 Test Item Value Reference Range Interpretation Comments HCV Quantitative Not Detected Not detected Interpretation (test IU/mL code = 8286162614) TANESHA (test code = TANESHA) [employer] m2000 RealTime HCV reverse internet site designer-polymeras e chain reaction(RT-PCR) assay is used. It [...] ,000 IU/mL,>100,000,000 IU/mL: >upper limit of quantification. [facility] WITH [id number] 11:49:00 Test Item Value Reference Range Interpretation [...] RDW-SD (test code = 42.9 fL 39-49.9 91073-8) RDW-CV (test code = 13.1 % 12-15.5 788-0) PLT (test code = See_Comment [Automated 777-3) message] The sy stem which generated this result transmitted reference range : 166 - 358 10*3/ ?L. The reference r irvin was not used to interpret this result as normal/abnormal . MPV (test code = 12.2 fL 9.5-12.9 74370-5) NRBC/100 WBC (test See_Comment [Automat ed code = 4098381743) message] The system which generated this result transmitted reference range : 0.0 - 10.0 /100 WBCs. The refer ence range was not u sed to interpret th is result as normal/abnormal . NRBC x10^3 (test code <0.01 See_Comment [Auto mated = 5876669642) message] The s ystem which generated this result transmitted reference range : 10*3/?L. The reference range was not used to interpret this result as normal/abnormal . GRAN MAT (NEUT) % 70.1 % (test code = 770-8) IMM GRAN % (test code 0.40 % = 1683597144) LYMPH % (test code = 15.2 % 736-9) MONO % (test code = 11.6 % 5905-5) EOS % (test code = 2.3 % 713-8) BASO % (test code = 0.4 % 706-2) GRAN MAT x10^3(ANC) 3.37 10*3/uL 1.88-7.09 (test code = 6577874682) IMM GRAN x10^3 (test <0.03 0-0.06 code = 6501279391) LYMPH x10^3 (test code 0.73 10*3/uL 1.32-3.29 L = 731-0) MONO x10^3 (test code 0.56 10*3/uL 0.33-0.92 = 742-7) EOS x10^3 (test code = 0.11 10*3/uL 0.03-0.39 711-2) BASO x10^3 (test code <0.03 0.01-0.07 = 704-7) Lab Interpretation Abnormal (test code = 62970-8) [facility] METABOLIC PANEL (NA, K, CL, CO2, GLUCOSE, BUN, CREATININE, CA)2020-10-17 11:46:00 Test Item Value Reference Range Interpretation Comments NA (test code = 134 mmol/L 135-145 L 0215442042) K (test code = 3.3 mmol/L 3.5-5 L 0653830301) CL (test code = 100 mmol/L 98-108 7385017249) CO2 TOTAL (test code = 30 mmol/L 23-31 5567579078) AGAP (test code = 2-16 9949620005) BUN (test code = 8 mg/dL 7-23 0748715817) GLUCOSE (test code = 102 mg/dL 70-110 4728734892) CREATININE (test code = 0.37 mg/dL 0.5-1.04 L 2032777426) CALCIUM (test code = 8.5 mg/dL 8.6-10.6 L 1531368498) eGFR Calculation mL/min/1.73m2 (Non-) (test code = 9339907421) eGFR Calculation mL/min/1.73m2 () (test code = 7792043975) TANESHA (test code = TANESHA) Association of [...] tests). Lab Interpretation Abnormal (test code = 83014-5) [facility] HospitalMAGNESIUM2021-01-11 11:46:00 Test Item Value Reference Range Interpretation Comments MAGNESIUM (test code = 6940660456) 1.9 mg/dL 1.7-2.4 Lab Interpretation (test code = Normal 30856-0) [facility] HospitalMAGNESIUM2021-01-11 10:58:00MAGNESIUMComment: Please disregard previous result value, patient results are inconsistent with previous results. Notified Dr. Macario Urbina, patient will be credited. This is a corrected result. ?Previous result was 1.3 mg/dL on 10/17/2020 at 0438 [facility] SERVICESUnThe Hospitals [facility] CampusCB WITH [id number] 10:53:00 Test Item Value Reference Range Interpretation [...] RDW-SD (test code = 44.0 fL 39-49.9 05454-2) RDW-CV (test code = 13.0 % 12-15.5 788-0) PLT (test code = See_Comment L [Automated 777-3) message] The sy stem which generated this result transmitted reference range : 166 - 358 10*3/ ?L. The reference r irvin was not used to interpret this result as normal/abnormal . MPV (test code = 12.1 fL 9.5-12.9 39202-2) NRBC/100 WBC (test See_Comment [Automat ed code = 0047609653) message] The system which generated this result transmitted reference range : 0.0 - 10.0 /100 WBCs. The refer ence range was not u sed to interpret th is result as normal/abnormal . NRBC x10^3 (test code <0.01 See_Comment [Auto mated = 3248507528) message] The s ystem which generated this result transmitted reference range : 10*3/?L. The reference range was not used to interpret this result as normal/abnormal . GRAN MAT (NEUT) % 72.8 % (test code = 770-8) IMM GRAN % (test code 0.60 % = 7730932660) LYMPH % (test code = 12.5 % 736-9) MONO % (test code = 11.9 % 5905-5) EOS % (test code = 1.9 % 713-8) BASO % (test code = 0.3 % 706-2) GRAN MAT x10^3(ANC) 2.63 10*3/uL 1.88-7.09 (test code = 4757079099) IMM GRAN x10^3 (test <0.03 0-0.06 code = 0618680002) LYMPH x10^3 (test code 0.45 10*3/uL 1.32-3.29 L = 731-0) MONO x10^3 (test code 0.43 10*3/uL 0.33-0.92 = 742-7) EOS x10^3 (test code = 0.07 10*3/uL 0.03-0.39 711-2) BASO x10^3 (test code <0.03 0.01-0.07 = 704-7) Lab Interpretation Abnormal (test code = 63366-3) [facility] HospitalBODY FLUID DIRECT [id number] 08:48:00 Test Item Value Reference Range Interpretation Comments BF COLOR (test code = Clear 8498676713) BF WBC Count (test See_Comment [Automat ed message] The code = 0502415563) system [facility] generated this result transmit carol reference range : 0 - 5 /?L. The reference r irvin was not used to interpr et this result as anoop l/abnormal. BF RBC Count (test See_Comment [Automat ed message] The code = 4678320599) system wh ich generated this result transmit carol reference range : /?L. The reference range was not used to interpr et this result as anoop l/abnormal. [facility] HospitalBODY FLUID MANUAL [id number] 08:48:00 Test Item Value Reference Range Interpretation Comments BF SEGS (test code = 5854190006) 1 % 0-7 BF LYMPHS (test code = 8927144323) 18 % 28-96 L MACROPHAGE (test code = 0687557774) 6 % 16-56 L #CELS CNTD (test code = 0639064352) Lab Interpretation (test code = Abnormal 52603-3) [facility] HospitalCerrospinal Fluid [id number] 08:27:00 Test Item Value Reference Range Interpretation Comments GLU CSF (test code = 72 mg/dL 50-80 2515619574) UNSPUN BODY FLUID Colorless COLOR (test code = 7930902858) UNSPUN BODY FLUID Clear CLARITY (test code = 4830224640) SPUN BODY FLUID COLOR Colorless (test code = 7999396327) SPUN BODY FLUID Clear CLARITY (test code = 2611630585) Sediment (test code = The sediment volume is 0914690123) <0.01 mL of the total fluid volume of 2.5 mLs and its color is red. [facility] Hospitalrospinal Fluid [id number] 08:27:00 Test Item Value Reference Range Interpretation Comments T. PRO CSF (test code = 56.0 mg/dL 15-45 H 8981252120) UNSPUN BODY FLUID COLOR Colorless (test code = 5368613573) UNSPUN BODY FLUID CLARITY Clear (test code = 8129562788) SPUN BODY FLUID COLOR Colorless (test code = 9908606734) SPUN BODY FLUID CLARITY Clear (test code = 7708465027) Sediment (test code = The sediment volume 0634115603) is <0.01 mL of the total fluid volume of 2.5 mLs and its color is red. Lab Interpretation (test Abnormal code = 65694-9) [facility] HospitalGLUCOSE, URINE [id number] 05:19:00 Test Item Value Reference Range Interpretation Comments GLU URINE (test code = <20 See_Comment [Aut omated message] 2959934422) The system Slingbox generated this result transmitted ref erence range: <30 mg/d L. The reference range was not used to int erpret this result as normal/abnormal . Lab Interpretation (test Normal code = 63325-1) [facility] HospitalElectroencephalogram (EEG) - Duration of test: 20-60 [id number] 00:00:00Date and Time of Procedure: 10/17/2020, 8:49:37 [...] Pina Cobos Rai, MD Date of interpretation: 10/17/2020UnThe Hospitals of Providence [facility] CampusMR BRAIN WO [id number] 22:27:44 FINDINGS/IMPRESSION: Only diffusion-weighted sequences were obtained and are markedly degradedby artifact. No diffusion restriction identified within the limitations of the scan. Thescan is a still clinically needed, repeat under sedation/anesthesia isrecommended.EXAM: MR BRAIN WO CONTRAST HISTORY: Altered level of consciousness (LOC), unexplained TECHNIQUE: Only diffusion-weighted sequences of the brain were obtained. COMPARISON: CT head dated 10/13/2020. [facility], Radiant Results Inft User - 10/16/2020 4:28 PM CSTEXAM: MR BRAIN WO CONTRASTHISTORY: Altered level of consciousness (LOC), unexplained TECHNIQUE: Only diffusion-weighted sequences of the brain were obtained.COMPARISON: CT head dated 10/13/2020.IMPRESSIONFINDINGS/IMPRESSION:Only diffusion-weighted sequences were obtained and are markedly degradedby artifact.No diffusion restriction identified within the limitations of the scan. Thescan is astill clinically needed, repeat under sedation/anesthesia isrecommended.[facility] HospitalVITAMIN B1, [id number] 14:34:00 Test Item Value Reference Range Interpretation Comments VIT B1 (test code = 25 nmol/L 4-15 H INTERPRE TIVE DATA: ) Vitamin B1, Trevor sma Thiamine (vitam in B1) is reported. Ho wever, thiamine diphos phate (TDP), the biologically ac tive form of thiamin e, is not found in measurable concentrations in plasma, and is best determined in w hole blood specimens . Plasma thiamine concentration r eflects recent intake r ather than body store s. Test developed and characteristics determined by [employer] (acquired by [employer]). S ee Compliance Stat ement B: [employer]/CSP erforme d By: [employer] [place] [id number] Director: Sherry Murillo MD Lab Interpretation Abnormal (test code = 74958-4) [facility] HospitalCORTISOL [id number] 12:42:00 Test Item Value Reference Range Interpretation Comments HIRA AM (test code = 21.3 ug/dL 4.5-23 7298384631) TANESHA (test code = TANESHA) Biotin has been reported to cause a positive bias, interpret results relative to patient's use of biotin. Lab Interpretation (test Normal code = 56667-3) [facility] HospitalBASIC METABOLIC PANEL (NA, K, CL, CO2, GLUCOSE, BUN, CREATININE, CA)2020-10-16 12:10:00 Test Item Value Reference Range Interpretation Comments NA (test code = 131 mmol/L 135-145 L 9398017330) K (test code = 3.6 mmol/L 3.5-5 5073979707) CL (test code = 99 mmol/L 98-108 3707504537) CO2 TOTAL (test code = 28 mmol/L 23-31 8087372849) AGAP (test code = 2-16 8900914123) BUN (test code = 7 mg/dL 7-23 1175070915) GLUCOSE (test code = 124 mg/dL 70-110 H 9815624603) CREATININE (test code = 0.34 mg/dL 0.5-1.04 L 5994494025) CALCIUM (test code = 8.3 mg/dL 8.6-10.6 L 5887068932) eGFR Calculation mL/min/1.73m2 (Non-) (test code = 6677193319) eGFR Calculation mL/min/1.73m2 () (test code = 8294769120) TANESHA (test code = TANESHA) Association of [...] tests). Lab Interpretation Abnormal (test code = 18006-7) [facility] HospitalCALCIUM, URINE [id number] 08:47:00 Test Item Value Reference Range Interpretation Comments CA URINE (test code = 2546422852) 32.4 mg/dL [facility] HospitalCREATININE, URINE [id number] 08:39:00 Test Item Value Reference Range Interpretation Comments CREAT U (test code = 0163962574) 23.3 mg/dL [facility] HospitalOSMOLALITY [id number] 08:38:00 Test Item Value Reference Range Interpretation Comments OSMO U (test code = See_Comment [Automa carol message] 1675185865) The system Slingbox generated this result transmitted ref erence range: 50-1,100 mOsm/kg. The re ference range was not u sed to interpret this result as normal/abnor mal. Lab Interpretation (test Normal code = 77028-6) [facility]GN[facility]IUM, URINE [id number] 08:37:00 Test Item Value Reference Range Interpretation Comments MG URINE (test code = 1181027421) 31.0 mg/dL [facility] HospitalPOTASSIUM, URINE [id number] 08:16:00 Test Item Value Reference Range Interpretation Comments K URINE (test code = 3393379694) 49.9 mmol/L [facility] HospitalSODIUM, URINE [id number] 08:16:00 Test Item Value Reference Range Interpretation Comments NA URINE (test code = 5241878717) 117 mmol/L [facility] HospitalCALCIUM, URINE [id number] 01:45:00 Test Item Value Reference Range Interpretation Comments CA URINE (test code = 0788733491) 34.2 mg/dL [facility] HospitalMAGNESIUM2021-01-10 00:29:00 Test Item Value Reference Range Interpretation Comments MAGNESIUM (test code = 6504923071) 3.3 mg/dL 1.7-2.4 H Lab Interpretation (test code = Abnormal 67782-6) [facility] HospitalSODIUM, URINE [id number] 00:00:00 Test Item Value Reference Range Interpretation Comments NA URINE (test code = 9670735416) 127 mmol/L [facility] HospitalBASI METABOLIC PANEL (NA, K, CL, CO2, GLUCOSE, BUN, CREATININE, CA)2020-10-15 22:22:00 Test Item Value Reference Range Interpretation Comments NA (test code = 130 mmol/L 135-145 L 4838754485) K (test code = 3.3 mmol/L 3.5-5 L 9946882896) CL (test code = 97 mmol/L 98-108 L 4659982698) CO2 TOTAL (test code = 28 mmol/L 23-31 6325236799) AGAP (test code = 2-16 1176495138) BUN (test code = 5 mg/dL 7-23 L 6908677127) GLUCOSE (test code = 144 mg/dL 70-110 H 1714813642) CREATININE (test code = 0.37 mg/dL 0.5-1.04 L 7978327306) CALCIUM (test code = 8.1 mg/dL 8.6-10.6 L 2478249709) eGFR Calculation mL/min/1.73m2 (Non-) (test code = 2214343276) eGFR Calculation mL/min/1.73m2 () (test code = 8944461100) TANESHA (test code = TANESHA) Association of [...] tests). Lab Interpretation Abnormal (test code = 19043-1) [facility] HospitalOSMOLALITY [id number] 15:30:00 Test Item Value Reference Range Interpretation Comments OSMOLALITY (test code = See_Comment L [Au tomated message] 9156660801) The system Slingbox generated this result transmitted ref erence range: 278 - 30 5 mOsm/kg. The reference range was not used to int erpret this result as normal/abnormal . Lab Interpretation (test Abnormal code = 94923-2) [facility] HospitalMAGNESIUM2021-01-09 12:04:00 Test Item Value Reference Range Interpretation Comments MAGNESIUM (test code = 6359061276) 1.5 mg/dL 1.7-2.4 L Lab Interpretation (test code = Abnormal 66053-2) [facility] HospitalPHOSPHORUS2021-01-09 12:04:00 Test Item Value Reference Range Interpretation Comments PHOSPHORUS (test code = 7052501171) 2.4 mg/dL 2.5-5 L Lab Interpretation (test code = Abnormal 65755-2) [facility] HospitalBASIC METABOLIC PANEL (NA, K, CL, CO2, GLUCOSE, BUN, CREATININE, CA)2020-10-15 12:04:00 Test Item Value Reference Range Interpretation Comments NA (test code = 129 mmol/L 135-145 L 4320802058) K (test code = 3.4 mmol/L 3.5-5 L 8406682437) CL (test code = 97 mmol/L 98-108 L 7324988340) CO2 TOTAL (test code = 27 mmol/L 23-31 3357967169) AGAP (test code = 2-16 0907831035) BUN (test code = 7 mg/dL 7-23 6246816087) GLUCOSE (test code = 101 mg/dL 70-110 3933070840) CREATININE (test code = 0.37 mg/dL 0.5-1.04 L 4627286413) CALCIUM (test code = 8.4 mg/dL 8.6-10.6 L 6409331161) eGFR Calculation mL/min/1.73m2 (Non-) (test code = 0816662847) eGFR Calculation mL/min/1.73m2 () (test code = 6707942409) TANESHA (test code = TANESHA) Association of [...] tests). Lab Interpretation Abnormal (test code = 21081-9) [facility] WITHOUT [id number] 11:51:00 Test Item Value Reference Range Interpretation Comments WBC (test code = 6690-2) See_Comment [A utomated message] The system Slingbox generated this result transmit carol reference range : 4.30 - 11.10 10*3/?L. The reference range was not used to interpret this result as normal/abnormal . RBC (test code = 789-8) See_Comment L [Au tomated message] The system Sling[employer] generated this result transmit carol reference range [...] 777-3) See_Comment [Au tomated message] The system Sling[employer] generated this result transmit carol reference range : 166 - 358 10*3/?L. The reference range was not used to interpret this result as normal/abnormal . MPV (test code = 11.8 fL 9.5-12.9 76475-0) RDW-CV (test code = 12.6 % 12-15.5 788-0) RDW-SD (test code = 41.1 fL 39-49.9 82450-2) NRBC x10^3 (test code = <0.01 See_Comment [Au tomated message] 0932599423) The system Slingbox generated this result transmit carol reference range : 10*3/?L. The reference range was not used to interpret this result as normal/abnormal . NRBC/100 WBC (test code See_Comment [Au tomated message] = 6297093641) The system [employer] generated this result transmit carol reference range : 0.0 - 10.0 /100 WBC s. The reference r irvin was not used to interpret this result as normal/abnormal . IPF % (test code = 2311909177) Lab Interpretation (test Abnormal code = 00466-9) [facility] HospitalXR CHEST 1 [id number] 03:35:17 No acute intrathoracic abnormality. Preliminary Report [...] reviewed this study and agree withthe above report.[facility] HospitalXR [id number] 03:18:19 1. ?Dobbhoff tube tip in the gastric body.EXAM: XR KUB HISTORY: Dobbhoff tube placement COMPARISON: None recent FINDINGS: A Dobbhoff tube terminates at the gastric body. Lung bases as visualized are clear. The cardiac silhouette is not enlarged. The bowel gas distribution is nonobstructed, mild gas distention of bowelloops noted.Bones are unremarkable. [facility], Radiant Results Inft User - 10/14/2020 9:19 PM CSTEXAM: XR KUBHISTORY: Dobbhoff tube placement COMPARISON: None recentFINDINGS:A Dobbhoff tube terminates at the gastric body.Lung bases as visualized are clear. The cardiac silhouette is not enlarged.The bowel gas distribution is nonobstructed, mild gas distention of bowelloops noted.Bones are unremarkable.IMPRESSION1. Dobbhoff tube tip in the gastric body.[facility] HospitalBASIC METABOLIC PANEL (NA, K, CL, CO2, GLUCOSE, BUN, CREATININE, CA)2020-10-14 21:35:00 Test Item Value Reference Range Interpretation Comments NA (test code = 128 mmol/L 135-145 L 9001265073) K (test code = 3.4 mmol/L 3.5-5 L 3009293923) CL (test code = 95 mmol/L 98-108 L 0126810744) CO2 TOTAL (test code = 25 mmol/L 23-31 6255019471) AGAP (test code = 2-16 0945567825) BUN (test code = 4 mg/dL 7-23 L 3469380690) GLUCOSE (test code = 92 mg/dL 70-110 8806842259) CREATININE (test code = 0.36 mg/dL 0.5-1.04 L 9376742602) CALCIUM (test code = 8.8 mg/dL 8.6-10.6 8781405720) eGFR Calculation mL/min/1.73m2 (Non-) (test code = 2498744457) eGFR Calculation mL/min/1.73m2 () (test code = 4251607351) TANESHA (test code = TANESHA) Association of [...] tests). Lab Interpretation Abnormal (test code = 87809-5) [facility] METABOLIC PANEL (NA, K, CL, CO2, GLUCOSE, BUN, CREATININE, CA)2020-10-14 12:04:00 Test Item Value Reference Range Interpretation Comments NA (test code = 130 mmol/L 135-145 L 9876884022) K (test code = 2.7 mmol/L 3.5-5 LL 2694575359) CL (test code = 94 mmol/L 98-108 L 2121688178) CO2 TOTAL (test code = 32 mmol/L 23-31 H 7919323725) AGAP (test code = 2-16 0142130842) BUN (test code = 3 mg/dL 7-23 L 5696107548) GLUCOSE (test code = 105 mg/dL 70-110 1283359171) CREATININE (test code = 0.32 mg/dL 0.5-1.04 L 9346361542) CALCIUM (test code = 8.2 mg/dL 8.6-10.6 L 1577835048) eGFR Calculation mL/min/1.73m2 (Non-) (test code = 6218932500) eGFR Calculation mL/min/1.73m2 () (test code = 3562490856) TANESHA (test code = TANESHA) Association of [...] tests). Lab Interpretation Abnormal (test code = 78265-9) [facility] HospitalMAGNESIUM2021-01-08 11:58:00 Test Item Value Reference Range Interpretation Comments MAGNESIUM (test code = 6571855765) 1.9 mg/dL 1.7-2.4 Lab Interpretation (test code = Normal 03167-5) [facility] HospitalPHOSPHORUS2021-01-08 11:58:00 Test Item Value Reference Range Interpretation Comments PHOSPHORUS (test code = 6405054543) 2.0 mg/dL 2.5-5 L Lab Interpretation (test code = Abnormal 87375-0) [facility] HospitalCBC WITHOUT [id number] 11:36:00 Test Item Value Reference Range Interpretation Comments WBC (test code = 6690-2) See_Comment [A utomated message] The system [employer] generated this result transmit carol reference range : 4.30 - 11.10 10*3/?L. The reference range was not used to interpret this result as normal/abnormal . RBC (test code = 789-8) See_Comment L [Au tomated message] The system Slingbox generated this result transmit carol reference range [...] 777-3) See_Comment [Au tomated message] The system Slingbox generated this result transmit carol reference range : 166 - 358 10*3/?L. The reference range was not used to interpret this result as normal/abnormal . MPV (test code = 12.2 fL 9.5-12.9 47093-2) RDW-CV (test code = 12.4 % 12-15.5 788-0) RDW-SD (test code = 39.7 fL 39-49.9 88292-8) NRBC x10^3 (test code = <0.01 See_Comment [Au tomated message] 5819487771) The system [employer] generated this result transmit carol reference range : 10*3/?L. The reference range was not used to interpret this result as normal/abnormal . NRBC/100 WBC (test code See_Comment [Au tomated message] = 5099794489) The system yavalu ch generated this result transmit carol reference range : 0.0 - 10.0 /100 WBC s. The reference r irvin was not used to interpret this result as normal/abnormal . IPF % (test code = 7667939130) Lab Interpretation (test Abnormal code = 50202-9) [facility], [id number] 23:07:00 Test Item Value Reference Range Interpretation Comments AMMONIA (test code = 6371844085) 19 umol/L 9-33 Lab Interpretation (test code = Normal 43014-6) [facility] METABOLIC PANEL (NA, K, CL, CO2, GLUCOSE, BUN, CREATININE, CA)2020-10-13 23:06:00 Test Item Value Reference Range Interpretation Comments NA (test code = 128 mmol/L 135-145 L 5810581438) K (test code = 2.4 mmol/L 3.5-5 LL 3381158533) CL (test code = 93 mmol/L 98-108 L 9962472558) CO2 TOTAL (test code = 30 mmol/L 23-31 7021873103) AGAP (test code = 2-16 8375170229) BUN (test code = 4 mg/dL 7-23 L 7395214124) GLUCOSE (test code = 127 mg/dL 70-110 H 6587118305) CREATININE (test code = 0.34 mg/dL 0.5-1.04 L 7857101471) CALCIUM (test code = 8.4 mg/dL 8.6-10.6 L 3852527910) eGFR Calculation mL/min/1.73m2 (Non-) (test code = 5242604138) eGFR Calculation mL/min/1.73m2 () (test code = 6839094961) TANESHA (test code = TANESHA) Association of [...] tests). Lab Interpretation Abnormal (test code = 01064-3) [facility] HospitalCREATINE [id number] 23:04:00 Test Item Value Reference Range Interpretation Comments CK (test code = 1354515766) 120 U/L 33-194 Lab Interpretation (test code = Normal 29684-6) [facility] [id number] 22:44:00 Test Item Value Reference Range Interpretation Comments FREE T4 (test code = See_Comment H [Autom ated message] 3103938928) The system Slingbox generated this result transmitted ref erence range: 0.78 - 2 .20 ng/dL:. The ref erence range was not u sed to interpret this result as normal/abnor mal. Lab Interpretation (test Abnormal code = 41664-1) [facility] [id number] 22:44:00 Test Item Value Reference Range Interpretation Comments FREE T3 (test code = 7328443669) 3.44 pg/mL 2.77-5.27 Lab Interpretation (test code = Normal 83477-6) [facility] HospitalHEPATIC FUNCTION PANEL (74711) (ALB,T.PRO,BILI T,BU/BC,ALT,AST,ALK PHOS)2020-10-13 22:26:00 Test Item Value Reference Range Interpretation Comments TOTAL BILI (test code = 5175878314) 0.5 mg/dL 0.1-1.1 BILI UNCON (test code = 0825306167) 0.5 mg/dL 0.1-1.1 BILI CONJ (test code = 0864487295) 0.0 mg/dL 0-0.3 T PROTEIN (test code = 9441493754) 6.3 g/dL 6.3-8.2 ALBUMIN (test code = 0587316579) 4.0 g/dL 3.5-5 ALK PHOS (test code = 3716156811) 75 U/L 34-122 ALTv (test code = 1742-6) 52 U/L 5-35 H AST(SGOT) (test code = 7241337252) 49 U/L 13-40 H Lab Interpretation (test code = Abnormal 87107-1) [facility] HospitalPHENYTOIN [id number] 17:04:00 Test Item Value Reference Range Interpretation Comments PHENY FREE (test code 1.7 ug/mL 1-2 = 1006837374) TANESHA (test code = TANESHA) Toxic Range: ? Greater than 2.5 ug/mL Test developed and characteristics determined by [facility] Laboratory Services. Lab Interpretation Normal (test code = 94655-0) [facility] HospitalChest 2 [id number] 16:43:20EXAM: XR CHEST 2 VW HISTORY: concern for aspiration. COMPARISON: None. FINDINGS: The heart and great vessels are normal and the lungs are well expanded andclear. They show nothing to suggest aspiration. ? [facility], Radiant Results Inft User - 10/13/2020 10:44 AM CSTEXAM: XR CHEST 2 VWHISTORY: concern for aspiration. COMPARISON: None.FINDINGS:The heart and great vessels are normal and the lungs are well expanded andclear. They show nothing to suggest aspiration.[facility] HospitalHIV 1/2 AG-AB WITH [id number] 16:39:00 Test Item Value Reference Range Interpretation Comments HIV Negative Negative Semi-quantitative (test code = 43700-6) TANESHA (test code = Non-reactive for HIV-1 TANESHA) antigen and HIV-1/HIV-2 antibodies. ?No laboratory evidence of HIV infection. ?Repeat in 2-4 weeks if acute HIV infection is suspected. [facility] HospitalGALV ONLY - SYPHILIS IGG/[id number] 16:13:00 Test Item Value Reference Range Interpretation Comments Syphilis IgG/IgM (test Non-reactive Non-reactive code = 52294-9) TANESHA (test code = TANESHA) Non-reactive - No serologic evidence of T. pallidum infection. Cannot exclude incubating or early syphilis. Submit a second specimen in 2-4 weeks if syphilis is clinically suspected. Equivocal - Further testing to follow. Reactive - Further testing to follow. Lab Interpretation (test Normal code = 74727-9) [facility] HospitalLAB ONLY COVID [id number] 15:25:00COVID DMT InterpretationInterpretation/Recommendations: Molecular NAAT Tests for [...] 19 testing the patient has had at [facility], including molecular NAAT testing (more commonly known as PCR testing and Rapid IDNow testing) and antibody testing. It does not take into account any testing that a patient has had outside of the [facility] medical record. [facility] LABORATORY SERVICESCOVID BiijjkfJVCQ-NwF-1 Rapid ID NOW (no units) ? ? Date ? Value ? 10/11/2020 ? Not Detected ? [facility] LABORATORY SERVICESUnThe Hospitals [facility] Providence [facility] CampusCT HEAD WO [id number] 15:08:15 No acute intracranial abnormality. Preliminary Report [...] is noted. Right frontal sinus is underpneumatized. [facility], Radiant Results Inft User - 10/13/2020 [...] this study and agree with theabove report. [facility] HospitalVitamin B12 [id number] 13:28:00 Test Item Value Reference Range Interpretation Comments VIT B12 (test code = 988 pg/mL 240-930 H 8120413003) TANESHA (test code = TANESHA) Biotin has been reported to cause a positive bias, interpret results relative to patient's use of biotin. Lab Interpretation (test Abnormal code = 23404-1) [facility] HospitalThyroid Stimulating [id number] 13:10:00 Test Item Value Reference Range Interpretation Comments TSH (test code = See_Comment L [Automated message] 9815442344) The system [employer] generated this result transmitted ref erence range: 0.45 - 4 .70 mIU/L. The refe rence range was not u sed to interpret this result as normal/abnor mal. Lab Interpretation (test Abnormal code = 17953-0) [facility] HospitalTroponin [id number] 12:52:00 Test Item Value Reference Range Interpretation Comments TROPONIN I (test 0.006 ng/mL See_Comment [Automated code = 6176418358) message] The system which generated this result [...] ? Lab Interpretation Normal (test code = 65774-1) [facility] HospitalMagnesium [id number] 12:40:00 Test Item Value Reference Range Interpretation Comments MAGNESIUM (test code = 2587679810) 1.6 mg/dL 1.7-2.4 L Lab Interpretation (test code = Abnormal 81138-0) [facility] Drug (Immunoassay) - Comprehensive Drug [id number] 12:36:00 Test Item Value Reference Range Interpretation Comments MICHEL S (test code = Negative Negative 0406543796) BENZO S (test code = Presumptive Positive Negative A 6220001185) TRICYCLIC (test code = Negative Negative 4781516013) TANESHA (test code = TANESHA) Serum Drug Screen Cutoff Ranges Barbiturates ? ? - 3 mcg/mLBenzodiazepines ?- 50 ng/mLTCA ?- 300 ng/mL Test developed and characteristics determined by [facility] Laboratory Services. The results are to be used only for medical (i.e., treatment) purposes. Unconfirmed screening results must not be used for non-medical purposes (e.g., employment testing, legal testing). Lab Interpretation Abnormal (test code = 36970-7) [facility] (Na, K, Cl, CO2, Glucose, BUN, Creatinine, Ca)2020-10-13 12:04:00 Test Item Value Reference Range Interpretation Comments NA (test code = 130 mmol/L 135-145 L 0543173573) K (test code = 2.6 mmol/L 3.5-5 LL 5752562718) CL (test code = 94 mmol/L 98-108 L 8995234331) CO2 TOTAL (test code = 33 mmol/L 23-31 H 7209440520) AGAP (test code = 2-16 7184906906) BUN (test code = 4 mg/dL 7-23 L 1962146432) GLUCOSE (test code = 137 mg/dL 70-110 H 9301842189) CREATININE (test code = 0.33 mg/dL 0.5-1.04 L 4549268279) CALCIUM (test code = 8.6 mg/dL 8.6-10.6 0387830826) eGFR Calculation mL/min/1.73m2 (Non-) (test code = 2719604628) eGFR Calculation mL/min/1.73m2 () (test code = 8369583894) TANESHA (test code = TANESHA) Association of [...] tests). Lab Interpretation Abnormal (test code = 62729-6) [facility] HospitalPhosphorus [id number] 11:52:00 Test Item Value Reference Range Interpretation Comments PHOSPHORUS (test code = 8914657047) 2.5 mg/dL 2.5-5 Lab Interpretation (test code = Normal 65187-5) [facility] HospitalCreatine Kinase (CK)2020-10-13 11:52:00 Test Item Value Reference Range Interpretation Comments CK (test code = 1772619011) 210 U/L 33-194 H Lab Interpretation (test code = Abnormal 83345-3) [facility] HospitalProthrombin Time (PT) / [id number] 11:29:00 Test Item Value Reference Range Interpretation [...] tions. Lab Interpretation (test Normal code = 62961-7) [facility] HospitalCBC with [id number] 11:27:00 Test Item Value Reference Range Interpretation Comments WBC (test code = See_Comment [Automated 7590-2) message] The sy stem which generated this result transmitted reference range : 4.30 - 11.10 10*3/?L. The reference range was not used to interpret this result as normal/abnormal . RBC (test code = See_Comment L [Automated 649-8) message] The sy stem which generated this [...] RDW-SD (test code = 40.8 fL 39-49.9 61363-8) RDW-CV (test code = 12.5 % 12-15.5 788-0) PLT (test code = See_Comment [Automated 777-3) message] The sy stem which generated this result transmitted reference range : 166 - 358 10*3/ ?L. The reference r irvin was not used to interpret this result as normal/abnormal . MPV (test code = 11.8 fL 9.5-12.9 07495-3) NRBC/100 WBC (test See_Comment [Automat ed code = 4916063827) message] The system which generated this result transmitted reference range : 0.0 - 10.0 /100 WBCs. The refer ence range was not u sed to interpret th is result as normal/abnormal . NRBC x10^3 (test code <0.01 See_Comment [Auto mated = 2853955352) message] The s ystem which generated this result transmitted reference range : 10*3/?L. The reference range was not used to interpret this result as normal/abnormal . GRAN MAT (NEUT) % 77.8 % (test code = 770-8) IMM GRAN % (test code 0.40 % = 9049624536) LYMPH % (test code = 9.6 % 736-9) MONO % (test code = 12.1 % 5905-5) EOS % (test code = 0.0 % 713-8) BASO % (test code = 0.1 % 706-2) GRAN MAT x10^3(ANC) 5.61 10*3/uL 1.88-7.09 (test code = 0430182466) IMM GRAN x10^3 (test 0.03 10*3/uL 0-0.06 code = 3794713636) LYMPH x10^3 (test code 0.69 10*3/uL 1.32-3.29 L = 731-0) MONO x10^3 (test code 0.87 10*3/uL 0.33-0.92 = 742-7) EOS x10^3 (test code = <0.03 0.03-0.39 L 711-2) BASO x10^3 (test code <0.03 0.01-0.07 = 704-7) Lab Interpretation Abnormal (test code = 65075-0) [facility] HospitalElectroencephalogram (EEG) - Duration of test: 20-60 with0423-39-18 00:00:00Date and Time of Procedure: 10/13/2020, 9:30:14- [...] sleep. Orlando Shea MD Date of interpretation: 10/13/2020UnThe [facility]als [facility] CampusPOCT GLUCOSE (AUTOMATED)2020-10-12 13:39:00 Test Item Value Reference Range Interpretation Comments POCT GLU (test code = 3488732201) 165 mg/dL 70-110 H Lab Interpretation (test code = Abnormal 18650-4) [facility] GLUCOSE (AUTOMATED)2020-10-12 06:20:00 Test Item Value Reference Range Interpretation Comments POCT GLU (test code = 1963221950) 79 mg/dL 70-110 Lab Interpretation (test code = Normal 66119-0) [facility] HospitalCOVID-19 (ID NOW RAPID TESTING)2020-10-12 06:10:00 Test Item Value Reference Range Interpretation Comments SARS-CoV-2 Rapid ID NOW Not Detected Not Detected (test code = 62411-2) TANESHA (test code = TANESHA) ID NOW COVID-19 Assay is an isothermal nucleic acid amplification test intended for the qualitative detection of nucleic acid from SARS-CoV-2 viral RNA in nasopharyngeal (ICU RN) specimens. It is used under Emergency Use [...] indicated. Lab Interpretation Normal (test code = 45473-8) [facility] HospitalCT HEAD WO [id number] 04:49:02 Within the limitations of motion artifact, [...] reviewed this study and agree with theabove report.[facility] HospitalURINALYSIS2021-01-06 02:27:00 Test Item Value Reference Range Interpretation Comments APPEARANCE (test code = Hazy Clear A 2621499964) COLOR (test code = Yellow Yellow 8986375022) PH (test code = 4.8-8.0 7520538870) SP GRAVITY (test code = >=1.030 1.003-1.030 4774763353) GLU U QUAL (test code = Negative Negative 7206163152) BLOOD (test code = Moderate Negative A 2427497177) KETONES (test code = >80 mg/dL Negative A 0827212560) PROTEIN (test code = Negative Negative 2887-8) UROBILIN (test code = 0.2 mg/dL See_Comment [Auto mated message] 9558736919) The system Slingbox generated this result transmit carol reference range : 0-1.0 mg/dL. Th e reference range was not used to interpret this result as normal/abnormal . BILIRUBIN (test code = Negative Negative 1782218925) NITRITE (test code = Negative Negative 8239087244) LEUK EDINSON (test code = Negative Negative 2755860706) RBC/HPF (test code = See_Comment [Autom ated message] 6447579209) The system Slingbox generated this result transmit carol reference range : 0 - 3 HPF. The refe rence range was not u sed to interpret th is result as normal/abnormal . WBC/HPF (test code = See_Comment [Autom ated message] 3252438696) The system Slingbox generated this result transmit carol reference range : 0 - 5 HPF. The refe rence range was not u sed to interpret th is result as normal/abnormal . BACTERIA (test code = Few Negative A 1914255844) MUCOUS (test code = Slight Negative LPF A 4657169710) Lab Interpretation (test Abnormal code = 46076-3) [facility]. METABOLIC PANEL (10447)2020-10-12 02:14:00 Test Item Value Reference Range Interpretation Comments NA (test code = 135 mmol/L 135-145 2724641497) K (test code = 3.6 mmol/L 3.5-5 2093245509) CL (test code = 96 mmol/L 98-108 L 1465309074) CO2 TOTAL (test code = 23 mmol/L 23-31 1601821547) AGAP (test code = 2-16 8202857658) BUN (test code = 17 mg/dL 7-23 5672128880) GLUCOSE (test code = 93 mg/dL 70-110 5756718789) CREATININE (test code = 0.45 mg/dL 0.5-1.04 L 7254122836) TOTAL BILI (test code = 0.8 mg/dL 0.1-1.2 8153095129) CALCIUM (test code = 9.4 mg/dL 8.6-10.6 7475342003) T PROTEIN (test code = 7.7 g/dL 6.3-8.2 2326521020) ALBUMIN (test code = 5.0 g/dL 3.5-5 2472802841) ALK PHOS (test code = 92 U/L 34-122 8879614369) ALTv (test code = 64 U/L 5-35 H 1742-6) AST(SGOT) (test code = 66 U/L 13-40 H 0308710760) eGFR Calculation mL/min/1.73m2 (Non-) (test code = 5029153363) eGFR Calculation mL/min/1.73m2 () (test code = 6652943179) TANESHA (test code = TANESHA) Association of [...] tests). Lab Interpretation Abnormal (test code = 40971-2) [facility] / [facility] - DRUG SCREEN [id number] 01:41:00 Test Item Value Reference Range Interpretation Comments BENZO U (test code = Presumptive Positive Negative A 8937933433) MICHEL U (test code = Negative Negative 0838697481) AMPHET (test code = Negative Negative 5703622167) THC (test code = Negative Negative 9859038739) METHADONE (test code = Negative Negative 0486662021) Meth U (test code = Negative Negative 4156728045) OPIATES (test code = Negative Negative 5484439082) Cocaine Metabolite (test Negative Negative code = 6072625741) PROPOXY (test code = Negative Negative 8945449049) Tric U (test code = Negative Negative 6280789805) PCP (test code = Negative Negative 7462130794) OXYCOD (test code = Negative Negative 7299986869) TANESHA (test code = TANESHA) Urine Drug [...] testing). Lab Interpretation (test Abnormal code = 12627-9) [facility] HospitalACETAMINOPHEN2021-01-06 01:37:00 Test Item Value Reference Range Interpretation Comments ACETAMINOP (test code = <10.0 10-30 L 7072441570) TANESHA (test code = TANESHA) Toxic: Greater than 200 ug/mL @ 4 hour post ingestion or greater than 50 ug/mL @ 12 hour post ingestion Lab Interpretation (test Abnormal code = 68726-0) [facility] HospitalSALICYLATE2021-01-06 01:36:00 Test Item Value Reference Range Interpretation Comments SALICYLATE (test code <10 mg/L = 3771628036) TANESHA (test code = TANESHA) Therapeutic Range: ? Analgesic and Antipyretic Use ? 20-100 mg/L ? ? Anti-Inflammatory Use ? 100-250 mg/L Toxic Range: ? Greater than 300 mg/L [facility] HospitalETHANOL2021-01-06 01:35:00 Test Item Value Reference Range Interpretation Comments ALCOHOL (test code = <10 mg/dL 8353634679) TANSEHA (test code = TANESHA) <10 Oygvvvuw93-409 Toxic>100 Depression of [employer]>400 Fatalities Reported [facility] HospitalAMMONIA, [id number] 01:12:00 Test Item Value Reference Range Interpretation Comments AMMONIA (test code = <9 9-33 L Slight hemolysis 2091280637) Lab Interpretation (test Abnormal code = 28878-4) [facility] HospitalUrinalysis2019-09-02 16:31:00 Test Item Value Reference Range Interpretation Comments APPEARANCE (test code = Clear Clear 6009061685) COLOR (test code = Yellow Yellow 6240165660) PH (test code = 4.8-8.0 3166741298) SP GRAVITY (test code = <=1.005 1.003-1.030 6794256603) GLU U QUAL (test code = Negative Negative 6438927127) BLOOD (test code = Negative Negative 1062076240) KETONES (test code = Negative Negative 5783878948) PROTEIN (test code = Negative Negative 2887-8) UROBILIN (test code = 0.2 mg/dL See_Comment [Auto mated message] 3614944138) The system Slingbox generated this result transmit carol reference range : 0-1.0 mg/dL. Th e reference range was not used to interpret this result as normal/abnormal . BILIRUBIN (test code = Negative Negative 3330193108) NITRITE (test code = Negative Negative 0892177610) LEUK EDINSON (test code = Negative Negative 0739584176) RBC/HPF (test code = See_Comment [Autom ated message] 1818181840) The system Slingbox generated this result transmit carol reference range : 0 - 3 HPF. The refe rence range was not u sed to interpret th is result as normal/abnormal . WBC/HPF (test code = See_Comment [Autom ated message] 6293027952) The system Slingbox generated this result transmit carol reference range : 0 - 5 HPF. The refe rence range was not u sed to interpret th is result as normal/abnormal . BACTERIA (test code = Negative Negative 9446366061) Lab Interpretation (test Normal code = 81415-7) [facility] Metabolic Panel (NA, K, CL, CO2, GLUCOSE, BUN, CREATININE, CA)2019-06-08 16:00:00 Test Item Value Reference Range Interpretation Comments NA (test code = 140 mmol/L 135-145 4325309935) K (test code = 3.7 mmol/L 3.5-5 1773644928) CL (test code = 99 mmol/L 98-108 2348598912) CO2 TOTAL (test code = 27 mmol/L 23-31 1992404827) AGAP (test code = 2-16 7685496946) BUN (test code = 12 mg/dL 7-23 1073663379) GLUCOSE (test code = 94 mg/dL 70-110 2142150896) CREATININE (test code 0.61 mg/dL 0.5-1.04 = 1936425837) CALCIUM (test code = 9.4 mg/dL 8.6-10.6 8581733080) eGFR Calculation mL/min/1.73m2 (Non-) (test code = 1596557068) eGFR Calculation mL/min/1.73m2 () (test code = 2469384107) TANESHA (test code = TANESHA) Association of [...] or urine or abnormalities in imaging tests). [facility] HospitalLipase Fnsry8528-46-75 16:00:00 Test Item Value Reference Range Interpretation Comments LIPASE (test code = 1690689847) 120 U/L 0-220 Lab Interpretation (test code = Normal 03239-5) [facility] HospitalHepatic Function Panel (ALB, T.PRO, BILI T, BU/BC, ALT, AST, ALK PHOS)2019-06-08 15:59:00 Test Item Value Reference Range Interpretation Comments TOTAL BILI (test code = 5766009683) 0.4 mg/dL 0.1-1.1 BILI UNCON (test code = 9982997875) 0.2 mg/dL 0.1-1.1 BILI CONJ (test code = 1970444936) 0.0 mg/dL 0-0.3 T PROTEIN (test code = 9285797549) 7.7 g/dL 6.3-8.2 ALBUMIN (test code = 4655126078) 4.8 g/dL 3.5-5 ALK PHOS (test code = 4392047325) 86 U/L 34-122 ALT(SGPT) (test code = 1281798789) 21 U/L 9-51 AST(SGOT) (test code = 6997150848) 28 U/L 13-40 Lab Interpretation (test code = Normal 39230-4) [facility] HospitalCBC WITH [id number] 15:47:00 Test Item Value Reference Range Interpretation Comments WBC (test code = See_Comment [Automated message] 6690-2) The system Slingbox generated this result transmitted ref erence range: 4.30 - 1 1.10 10*3/?L. The re ference range was not u sed to interpret this result as normal/abnor mal. RBC (test code = See_Comment [Automated message] 789-8) The system Sling[employer] generated this result transmitted ref erence range: [...] RDW-SD (test code 43.8 fL 39-49.9 = 15461-6) RDW-CV (test code 12.6 % 12-15.5 = 788-0) PLT (test code = See_Comment [Automated message] 777-3) The system [employer] generated this result transmitted ref erence range: 166 - 35 8 10*3/?L. The re ference range was not u sed to interpret this result as normal/abnor mal. MPV (test code = 10.6 fL 9.5-12.9 59954-6) NRBC/100 WBC (test See_Comment [Automat ed message] code = 3481745626) The syste m which generated this result transmitted ref erence range: 0.0 - 10 .0 /100 WBCs. The refer ence range was not u sed to interpret this result as normal/abnor mal. NRBC x10^3 (test <0.01 See_Comment [Automated message] code = 0013351068) The syste m which generated this result transmitted ref erence range: 10*3/?L. The reference range was not used to interpr et this result as normal/abnormal . GRAN MAT (NEUT) % 50.2 % (test code = 770-8) IMM GRAN % (test 0.40 % code = 3832480367) LYMPH % (test code 33.0 % = 736-9) MONO % (test code 10.8 % = 5905-5) EOS % (test code = 4.3 % 713-8) BASO % (test code 1.3 % = 706-2) GRAN MAT 2.33 10*3/uL 1.88-7.09 x10^3(ANC) (test code = 5414981143) IMM GRAN x10^3 <0.03 0-0.06 (test code = 7896402707) LYMPH x10^3 (test 1.53 10*3/uL 1.32-3.29 code = 731-0) MONO x10^3 (test 0.50 10*3/uL 0.33-0.92 code = 742-7) EOS x10^3 (test 0.20 10*3/uL 0.03-0.39 code = 711-2) BASO x10^3 (test 0.06 10*3/uL 0.01-0.07 code = 704-7) [facility]
--- NOTE | 2021-12-17 23:15 | ER ---
Nurse's Notes [facility] Name: Chica Flores Age: 66 yrs Sex: Female : 1955 Arrival Date: 12/17/2021 Time: 21:46 Bed 15 Private MD: Diagnosis: Thoracic Vertebrae Fracture (T12) Presentation: 12/17 22:06 Chief complaint: Patient states: "i was here last night for the same thing. My back ab2 still hurts from my fall, I cant take it.". Coronavirus screen: Vaccine status: Patient reports receiving the 2nd dose of the covid vaccine. Client denies travel out of the [place] in the last 14 days. At this time, the client does not indicate any symptoms associated with coronavirus-19. Ebola Screen: Patient negative for fever greater than or equal to 101.5 degrees Fahrenheit, and additional compatible Ebola Virus Disease symptoms Patient denies exposure to infectious person. Patient denies travel to an Ebola-affected area in the 21 days before illness onset. No symptoms or risks identified at this time. Initial Sepsis Screen: Does the patient meet any 2 criteria? Yes Does the patient have a suspected source of infection? No. Patient's initial sepsis screen is negative. Risk Assessment: Do you want to hurt yourself or someone else? Patient reports no desire to harm self or others. Onset of symptoms is unknown. 22:06 Method Of Arrival: Wheelchair ab2 22:06 Acuity: ANITA 4 ab2 Triage Assessment: 22:08 General: Appears in no apparent distress. uncomfortable, Behavior is calm, cooperative, ab2 appropriate for age. Pain: Complains of pain in back and abdomen. Historical: - Allergies: 22:07 PENICILLINS; ab2 22:07 steroids; Allergy to Oral Steroids, IV is fine; ab2 - PMHx: 22:07 ADD/ADHD; Anxiety; Colitis; Depression; Osteoporosis; PTSD; ulcerative ulcer; ab2 - Immunization history:: Adult Immunizations up to date, Client reports receiving the 2nd dose of the Covid vaccine. - Social history:: Smoking status: Patient denies any tobacco usage or history of. Screenin:19 Abuse screen: Denies threats or abuse. Denies injuries from another. Nutritional tk1 screening: No deficits noted. Tuberculosis screening: No symptoms or risk factors identified. Fall Risk None identified. Assessment: 22:19 Reassessment: Patient to Restroom to void via WC then to ED RM 15. Assisted onto tk1 stretcher. Requesting pain medication now. Dr. Quintero notified. General: Appears comfortable, slender, well groomed, well developed, Behavior is anxious. Pain: Complains of pain in back Pain currently is 10 out of 10 on a pain scale. Quality of pain is described as sharp, Pain began 4 hours ago. Neuro: Level of Consciousness is awake, alert, obeys commands, Oriented to person, place, time, situation, Appropriate for age Computer Systems Technician are equal bilaterally Weakness Gait is unsteady, Speech is slurred, Facial symmetry appears normal, Pupils are PERRLA. Cardiovascular: Capillary refill < 3 seconds is brisk in bilateral fingers. Respiratory: Airway is patent Respiratory effort is even, unlabored, Respiratory pattern is regular, symmetrical. GI: No deficits noted. No signs and/or symptoms were reported involving the gastrointestinal system. : No deficits noted. No signs and/or symptoms were reported regarding the genitourinary system. EENT: No deficits noted. No signs and/or symptoms were reported regarding the EENT system. Derm: No deficits noted. No signs and/or symptoms reported regarding the dermatologic system. Musculoskeletal: Reports pain in back since fall 4 days ago. 23:30 Reassessment: No changes from previously documented assessment. Patient and/or family tk1 updated on plan of care and expected duration. Pain level reassessed. Patient is alert, oriented x 3, equal unlabored respirations, skin warm/dry/pink. Pain: Complains of pain in back Pain currently is 10 out of 10 on a pain scale. 23:38 Reassessment: D/C per PA order. Discharge instructions given to patient. Verbalized tk1 understanding. Vital Signs: 22:06 BP 133 / 76; Pulse 70; Resp 16; Temp 98.1(TE); Pulse Ox 98% on R/A; Weight 52.16 kg; ab2 Height 5 ft. 6 in. (167.64 cm); Pain 10/10; 22:19 BP 156 / 82 LA Supine (auto/reg); Pulse 67 MON; Resp 18 S; Temp 98(O); Pulse Ox 100% on tk1 R/A; Pain 10/10; 23:00 BP 117 / 76 LA Supine (auto/reg); Pulse 66 MON; Resp 18 S; Temp 98.4(O); Pulse Ox 99% tk1 on R/A; Pain 07/16; 22:06 Body Mass Index 18.56 (52.16 kg, 167.64 cm) ab2 ED Course: 21:46 Patient arrived in ED. 22:07 Triage completed. ab2 22:08 Arm band placed on right wrist. ab2 22:10 Arnol Hernandez PA is PHCP. jm 22:10 Kurt Quintero MD is Attending Physician. [facility] 22:19 Verna Clayton is Primary Nurse. tk1 22:19 Patient has correct armband on for positive identification. Bed in low position. Call tk1 light in reach. Side rails up X2. Pulse ox on. NIBP on. Warm blanket given. 22:19 No provider procedures requiring assistance completed. tk1 23:00 Patient did not have IV access during this emergency room visit. tk1 Administered Medications: 23:25 Drug: morphine 4 mg Route: IM; Site: right gluteus; tk1 23:40 Follow up: Response: Medication administered at discharge. tk1 23:25 Drug: Zofran (Ondansetron) 4 mg Route: PO; tk1 23:40 Follow up: Response: Medication administered at discharge. tk1 Outcome: 23:15 Discharge ordered by . [facility] 23:38 Discharged to home via wheelchair, with family. tk1 23:38 Condition: stable 23:38 Discharge instructions given to patient, Instructed on discharge instructions, follow up and referral plans. Importance of following up with ortho. Call tomorrow. Demonstrated understanding of instructions, follow-up care. 23:53 Patient left the ED. tk1 Signatures: Arnol Hernandez PA PA Paula Aponte Verna Clayton tk1 Jarret Leon ab2
--- NOTE | 2021-12-17 23:15 | EDPHYS ---
Physician Documentation [facility] Name: Chica Flores Age: 66 yrs Sex: Female : 1955 Arrival Date: 12/17/2021 Time: 21:46 Bed 15 Private MD: ED Physician Kurt Quintero HPI: 12/17 23:10 This 66 yrs old Female presents to ER via Wheelchair with complaints of Fall Injury. jmm 23:10 Details of fall: The patient fell from an upright position. Onset: The symptoms/episode jmm began/occurred acutely, 1 day(s) ago. Associated injuries: The patient sustained upper back injury. Is a 66-year-old female with history of anxiety, colitis, depression, PTSD, ulcerative colitis the presents emerge department with complaints of back pain which are 90 alleviated with prescribed pain medication. Patient denies bowel or bladder issues. Denies numbness to the legs. States home medications not helping.. Historical: - Allergies: 22:07 PENICILLINS; ab2 22:07 steroids; Allergy to Oral Steroids, IV is fine; ab2 - PMHx: 22:07 ADD/ADHD; Anxiety; Colitis; Depression; Osteoporosis; PTSD; ulcerative ulcer; ab2 - Immunization history:: Adult Immunizations up to date, Client reports receiving the 2nd dose of the Covid vaccine. - Social history:: Smoking status: Patient denies any tobacco usage or history of. ROS: 23:10 Constitutional: Negative for fever, chills, and weight loss, Cardiovascular: Negative jmm for chest pain, palpitations, and edema, Respiratory: Negative for shortness of breath, cough, wheezing, and pleuritic chest pain. 23:10 Back: Positive for pain with movement. 23:10 All other systems are negative. Exam: 23:10 Constitutional: This is a well developed, well nourished patient who is awake, alert, jmm and in no acute distress. Head/Face: atraumatic. Eyes: EOMI, no conjunctival erythema appreciated ENT: Moist Mucus Membranes Neck: Trachea midline, Supple Chest/axilla: Normal chest wall appearance and motion. Cardiovascular: Regular rate and rhythm. No edema appreciated Respiratory: Normal respirations, no respiratory distress appreciated Abdomen/GI: Non distended, soft 23:10 Skin: General appearance color normal MS/ Extremity: Moves all extremities, no obvious deformities appreciated, no edema noted to the lower extremities Neuro: Awake and alert Psych: Behavior is normal, Mood is normal, Patient is cooperative and pleasant 23:10 Back: pain, that is mild, of the thoracic area. Vital Signs: 22:06 BP 133 / 76; Pulse 70; Resp 16; Temp 98.1(TE); Pulse Ox 98% on R/A; Weight 52.16 kg; ab2 Height 5 ft. 6 in. (167.64 cm); Pain 10/10; 22:19 BP 156 / 82 LA Supine (auto/reg); Pulse 67 MON; Resp 18 S; Temp 98(O); Pulse Ox 100% on tk1 R/A; Pain 10/10; 23:00 BP 117 / 76 LA Supine (auto/reg); Pulse 66 MON; Resp 18 S; Temp 98.4(O); Pulse Ox 99% tk1 on R/A; Pain 10/10; 22:06 Body Mass Index 18.56 (52.16 kg, 167.64 cm) ab2 MDM: 22:38 Patient medically screened. [facility] 23:11 Data reviewed: vital signs, nurses notes. Data reviewed: old medical records, [facility] radiologic studies, CT scan. Counseling: I had a detailed discussion with the patient and/or guardian regarding: the historical points, exam findings, and any diagnostic results supporting the discharge/admit diagnosis, the need for outpatient follow up, to return to the emergency department if symptoms worsen or persist or if there are any questions or concerns that arise at home. ED course: Patient advised the need to follow-up with the spine surgery. Currently do not suspect cauda equina or severe cord compression syndrome. Patient advised to follow-up with pain management or spine surgery for further evaluation otherwise given strict return precautions. Patient understood agrees plan of care.. Administered Medications: 23:25 Drug: morphine 4 mg Route: IM; Site: right gluteus; tk1 23:40 Follow up: Response: Medication administered at discharge. tk1 23:25 Drug: Zofran (Ondansetron) 4 mg Route: PO; tk1 23:40 Follow up: Response: Medication administered at discharge. tk1 Disposition: 12/18 06:43 Co-signature as Attending Physician, Kurt Quintero MD. [email or web address] Disposition Summary: 12/17/21 23:15 Discharge Ordered Location: Home [facility] Condition: Stable jm Diagnosis - Thoracic Vertebrae Fracture (T12) [facility] Followup: jmm - With: Private Physician - When: 2 - 3 days - Reason: Recheck today's complaints, Continuance of care, Re-evaluation by your physician Discharge Instructions: - Discharge Summary Sheet jmm - Thoracic Spine Fracture [facility] Forms: - Medication Reconciliation Form [facility] - Thank You Letter [facility] - Antibiotic Education [facility] - Prescription Opioid Use [facility] Prescriptions: - Zanaflex 4 mg Oral Tablet - take 1 tablet by ORAL route every 8 hours As needed; 20 tablet; Refills: 0, jmm Product Selection Permitted Signatures: Arnol Hernandez PA PA jmm Holmes, Maurice, MD MD 7 Verna Clayton 1 Jarret Leon ab2
[2021-12-17] MEDS ORDERED: MORPHINE 4 MG/ML SYR ONE (23:26)
[2021-12-17] MEDS ORDERED: ONDANSETRON 4 MG (ODT) TAB ONE (23:27)
[2021-12-18 00:44] VITALS: BP 117/76; TEMP 98.4; O2SAT 99
== END 2021-12-17 23:53 | disposition home or self-care (01) ==
LOC: ER 21:43
DX: S22.089S Unspecified fracture of T11-T12 vertebra, sequela (principal); W18.30XS Fall on same level, unspecified, sequela; Z88.0 Allergy status to penicillin; Z88.8 Allergy status to other drugs, medicaments and biological substances; F41.8 Other specified anxiety disorders
CPT/HCPCS: 96372; 99283

== ENCOUNTER 2022-12-08 13:41 | Emergency (ER) | payer BC, OTHER ==
--- OUTSIDE RECORDS SUMMARY | 2022-12-08 13:58 | XMS REPORT | Continuity of Care Document ---
:1955 Author Organization [facility] t Address [address] [facility] [address] [place] [address] Care Team Providers Name Role Phone DR JESSI MEDINA Primary Care Physician Unavailable DR RAE COELLO Attending Clinician Unavailable Neftaly Munroe MD Attending Clinician [phone] Joe Najera Attending Clinician Aime JONES, [place] Attending Clinician Unavailable DESTINEE CASANOVA Attending Clinician Unavailable Yojana Max MD Attending Clinician Destinee Casanova MD Attending Clinician HECTOR COFFMAN Attending Clinician Unavailable Chepe Camejo DO Attending Clinician Hector Coffman DO Attending Clinician NORBERTO VASQUEZ Attending Clinician Unavailable Norberto Vasquez MD Attending Clinician KRYSTAL TRUONG Attending Clinician Unavailable Chiqui Rosen DO Attending Clinician Alexi PRICE, Krystal Owens Attending Clinician Marybeth Turcios DO Attending Clinician Ezio PRICE, Neftaly Attending Clinician Olga JONES, Bel [place] Attending Clinician RODRICK TOMLINSON Attending Clinician Unavailable Cassandra STOUT, Norberto Attending Clinician Davi PRICE, Rodrick Attending Clinician Doctor Unassigned, Erma Attending Clinician Unavailable FRANCES TERRY Attending Clinician Unavailable James Allen DO Attending Clinician Jhonatan Lombardo MD Attending Clinician Stan PRICE, Eri Brownlee Attending Clinician [phone] Mara PRICE, Frances Attending Clinician MONIQUE OTOOLE Attending Clinician Unavailable Rosaura Dunlap RN Attending Clinician Unavailable CHIQUI ROSEN Attending Clinician Unavailable DR RAE COELLO Admitting Clinician Unavailable DESTINEE CASANOVA Admitting Clinician Unavailable Destinee Casanova MD Admitting Clinician HECTOR COFFMAN Admitting Clinician Unavailable Hector Coffman DO Admitting Clinician NORBERTO VASQUEZ Admitting Clinician Unavailable KRYSTAL TRUONG Admitting Clinician Unavailable Alexi PRICE, Krystal Owens Admitting Clinician RODRICK TOMLINSON Admitting Clinician Unavailable Rodrick Tomlinson MD Admitting Clinician ERI OTOOLE Admitting Clinician Unavailable Eri Otoole MD Admitting Clinician MONIQUE OTOOLE Admitting Clinician Unavailable Payers Payer Name Policy Type Policy Number Effective Date Expiration Date S kp 0523 [id number] 1959 00:00:00 0700 [id number] 1959 00:00:00 Problems Condition Condition Condition Status Onset Resolution Last Treating Co mments Source Name Details Category Date Date Treatment Clinician Date Closed Closed Disease Active [facility] displaced displaced 12-05 [facility] fracture fracture 00:00: Medica l of right of right 00 Center femoral femoral neck neck Osteoporos Osteoporos Disease Active [facility] is with [facility] 12[facility]05 [facility] current current 00:00: Medical pathologic pathologic 00 Ce nter al al fracture, fracture, initial initial encounter encounter Fall, Fall, Disease Active [facility] initial initial 12[facility]05 [facility] encounter encounter 00:00: Medi srinivasa 00 Center 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 12-05 [facility] Alzheimer' Alzheimer' 00:00: Me dical s dementia s dementia 00 Ce nter 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 00:00: Me dical 00 [place] 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 12-05 Jenna beth bee 00:00: Medical malnutriti malnutriti 00 Ce nter on on Confusion Confusion Disease Active 2021-10 Uni vers 0- ity of 00:00: [place] 00 Medical Branch E46 E46 Disease Active Univers Unspecifie Unspecifie 1-08 it y of d severe d severe 00:00: [place] protein-ca protein-ca 00 [facility] malnutriti malnutriti on on AMS AMS Disease Active Univers (altered (altered 1-07 ity of mental mental 00:00: [place] status) status) 00 [facility] Branch Colitis Colitis Disease Active [facility]10 [facility] 00[facility]osp[facility] 00 l ABDOMINAL ABDOMINAL Diagnosis Active 2012-02-14 [facility] PAIN PAIN 5-10 08:26:00 l Active 00:00: John 02/14/2012 00 [facility] No known No known Disease Unive rs active active ity of problems problems [facility] Allergies, Adverse Reactions, Alerts Allergy Allergy Status Severity Reaction(s) Onset Inactive Treating Comm ents Source Name Type Date Date Clinician Penicill DA Active Unknown [facility] ins 2- Medical 00:00: Center 00 Predniso DA Active Unknown [facility] ne 2 Medical 00:00: Center 00 Beef DA Active Unknown [facility] Containi 2- Medical ng 00:00: Center Products 00 Shellfis DA Active Unknown [facility] h 2- Medical 00:00: Center 00 SHELLFIS DRUG Active Unknown-Cmnt Un jennie H [...] Products reaction 00 Medica l s Branch Beef Propensi Active Nausea Univers Containi ty to and/or 1-11 ity of ng adverse Vomiting 00:00: [place] Products reaction 00 Medica l s Branch Penicill Propensi Active Unknown [facility] di ins ty to Reaction 9-10 st adverse 00:00: Hospita reaction 00 l s to drug Predniso Propensi Active Other (See Hives,res Methodi lone ty to Comments) 9-10 tless,per st adverse 00:00: pt she is Hospit a reaction 00 allergic l s to to po drug steroids [per pt she is ok to take IV steroid} Penicill Propensi Active Anaphylaxis 2017-10 U nivers [...] 00 Medical Branch PREDNISO DRUG Active N/V 2017- Univers NE INGREDI 2-13 ity of 00:00: [place] 00 Medical Branch Penicill Propensi Active Anaphylaxis 2018- U nivers ins ty to 2-13 ity of adverse 00:00: [place] reaction 00 Medical s Branch Penicill Propensi Active Anaphylaxis 2017- U nivers ins ty to 2-13 ity of adverse 00:00: [place] reaction 00 Medical s Branch penicill penicill Active [facility] a ins ins l [facility] predniSO predniSO Active Memori a NE NE l John penicill penicill Active Memori a ins ins l [place] predniSO predniSO Active Memori a NE NE l [place] Social History Social Habit Start Date Stop Date Quantity Comments Source History of Current smoker University of tobacco use [facility] Exposure to 2022-08-08 2022-08-18 Not sure University of SARS-CoV-2 00:00:00 11:12:00 [facility] (event) Branch Alcohol intake 2022-08-05 2022-08-05 Ex-drinker [facility] 00:00:00 00:00:00 (finding) [facility] Branch Tobacco use and 2020-10-16 2020-10-16 Smokeless tobacco Un iversity of exposure 00:00:00 00:00:00 non-user [place] [facility] Education 2020-10-16 2020-10-16 13 University 00:00:00 00:00:00 [place] [facility] History SDOH 2020-10-16 2020-10-16 3 University o f Financial 00:00:00 00:00:00 [place] [facility] History SDOH Food 2020-10-16 2020-10-16 2 Univers ity of Worry 00:00:00 00:00:00 [place] [facility] History SDOH Food 2020-10-16 2020-10-16 2 Univers ity of Scarcity 00:00:00 00:00:00 [place] [facility] History SDOH 2020-10-16 2020-10-16 2 [place] o [facility] Med 00:00:00 00:00:00 [place] Medic al Branch History SDOH 2020-10-16 2020-10-16 2 [place] o f Transport Non-Med 00:00:00 00:00:00 [facility] edical Branch Sex Assigned At [address] [facility] 00:00:00 00:00:00 Medical Center Smoking Status Start Date Stop Date Source Tobacco smoking [facility] consumption unknown Ex-smoker 2020-10-16 00:00:00 2020-10-16 University o f [place] 00:00:00 Medical Branch Medications Ordered Filled Start Stop Current Ordering Indication Dosage Frequency Signature Comments Components Source Medication Medication Date Date Medication? Clinician (SIG) Name Name clonazePAM 2021-10 Yes .5mg Take 0.5 Uni vers 0.5 mg 1-18 mg by ity of tablet 21:12: mouth in [place] [address] the Medical morning Branch and 0.5 mg at noon and 0.5 mg in the evening. clonazePAM 2021-10 Yes .5mg Take 0.5 Uni vers 0.5 mg 1-18 mg by ity of tablet 21:12: mouth in [place] [address] the Medical morning Branch and 0.5 mg at noon and 0.5 mg in the evening. FLUoxetine 2021-10- No 40mg Take 40 mg Univers 40 mg 1-18 11-18 by mouth ity of capsule 14:52: 00:00 in the [place] 21 :00 morning Medical and 40 mg Branch in the evening. FLUoxetine 2021-10 Yes [id number] 40mg Take 1 Univers 40 mg 1-18 capsule by ity of capsule 00:00: mouth in [place] 00 the Medical morning. [place] traZODone 2021-10 Yes [id number] 100mg Take 1 Univers 100 mg 1-18 tablet by ity of tablet 00:00: mouth at [place] 00 bedtime. [facility] Branch FLUoxetine 2021-10 Yes [id number] 40mg Take 1 Univers 40 mg 1-18 capsule by ity of capsule 00:00: mouth in [place] 00 the Medical morning. Branch traZODone 2021-10 Yes [id number] 100mg Take 1 Univers 100 mg 1-18 tablet by ity of tablet 00:00: mouth at [place] 00 bedtime. [facility] Branch FLUoxetine 2021-10 Yes 40mg 40 mg, Unive rs (PROZAC) 1-16 Oral, ity of capsule 40 15:00: DAILY, [place] mg 00 First dose Medical on Sat Branch 08/22/22 at 0900, Until Discontinu ed, Routine traZODone 2021-10 Yes 100mg 100 mg, Univ ers (DESYREL) 1-16 Oral, QHS, ity of tablet 100 03:00: First dose [place] mg 00 on Sat Medical 08/21/22 Branch at 2100, Until Discontinu ed, Routine NaCl 0.9% 2021-10 No 1000mL at 100 Uni vers (NS) IV 1-15 11-17 mL/hr, IV ity of infusion 18:15: 14:00 Infusion, [place] as 1,000 mL 00 :00 ONCE, 1 Medical dose, On Branch Sat08/21/22 at 1215, Routine clonazePAM 2021-10 Yes .5mg 0.5 mg, [facility] ers (KLONOPIN) 1-15 Oral, TID, ity of tablet 0.5 14:00: First dose [place] mg 00 (after Medical last Branch modificati on) on Sat08/21/22 at 0800, Until Discontinu ed, Routine FLUoxetine 2021-10- No 40mg 40 mg, [facility] ers (PROZAC) - 11-15 Oral, BID, ity of capsule 40 14:00: 17:11 First dose [place] mg 00 :43 (after Medical last Branch modificati on) on Sat08/21/22 at 0800, Until Discontinu ed, Routine D5W 0.9% 2021-10 No 1000mL at 100 [facility] [place] [facility] NaCl (NS) - 11-15 mL/hr, ity of IV infusion 15:30: 17:15 1,000 mL, [place] 1,000 mL 00 :57 IV Medical Infusion, Branch CONTINUOUS , Starting on Sat08/20/22 at 0930, Until Sat08/21/22 at 1115, Routine KCL 2021-10 Yes 40meq 40 mEq, Univers (KLOR-CON 10-19 Oral, ity of M20) tablet 15:00: DAILY, [place] 40 mEq 00 First dose Medical on [place] [facility] 08/19/22 at 0900, Until Discontinu ed, Routine sennosides- 2021-10 Yes 1{tbl} 1 tablet, Univers docusate 10-19 Oral, ity of sodium 15:00: DAILY, [place] (SENOKOT-S) 00 First dose Me dical 8.6-50 mg on [facility] per tablet 08/19/22 1 tablet at 0900, Until Discontinu ed, Routine potassium 2021-10- No 20meq 20 mEq, IV Univers chloride in 10-19 Piggyback, i ty of water (KCL) 14:45: 17:48 ONCE, 1 [place] 20 mEq/100 00 :00 dose, On Medic al mL RTU IVPB [place] Branch 20 mEq 08/19/22 at 0845, 100 mL potassium 2021-10 No 20meq 20 mEq, IV Univers chloride in 10-19 Piggyback, i ty of water (KCL) 14:45: 19:16 ONCE, 1 [place] 20 mEq/100 00 :00 dose, On Medic al mL RTU IVPB [place] Branch 20 mEq 08/19/22 at 0845, 100 mL simethicone 2021-10 No 80mg 80 mg, Uni vers (GAS RELIEF 10-19 Oral, ity of (SIMETHICON 08:30: 07:53 ONCE, 1 [place] E)) 00 :00 dose, On Medical chewable [place] Branch tablet 80 08/19/22 mg at 0230, Routine enoxaparin 2021-10 Yes 40mg 40 mg, Unive rs (LOVENOX) 10-18 Subcutaneo ity of injection 23:00: us, DAILY, [place] 40 mg 00 First dose Medical on [facility] 08/18/22 at 1700, Until Discontinu ed, Routine FLUoxetine 2021-10 No 40mg 40 mg, Univ ers (PROZAC) 10-18 Oral, ity of capsule 40 22:30: 11:38 DAILY, [place] mg 00 :23 First dose Medical (after Branch last modificati on) on [facility] 08/18/22 at 1630, Until Discontinu ed, Routine acetaminoph 2021-10 Yes 650mg 650 mg, Un jennie en 10-18 Oral, ity of (TYLENOL) 20:29: Q6HPRN, [place] tablet 650 48 Starting Medic al mg on [facility] 08/18/22 at 1429, Until Discontinu ed, Routine, Pain (scale 1-3) clonazePAM 2021-10 No 1mg 1 mg, Unive rs (KLONOPIN) 10-18 Oral, TID, it y of tablet 1 mg 20:00: 11:38 First dose [place] 00 :23 on [facility] 08/18/22 Branch at 1400, Until Discontinu ed, Routine traZODone 2021-10 No 50mg Take 50 mg U nivers 50 mg 10-18 by mouth ity of tablet 14:30: 00:00 at [place] 15 :00 bedtime. Medical Branch ergocalcife 2021-10- No [id number] 13380H Take 1 Univers rol, 10-11- capsule by ity of vitamin d2, 00:00: 05:59 mouth [place] 1,250 mcg 00 :00 weekly for Medi srinivasa (50,000 8 doses. Branch unit) capsule ergocalcife 2021-10- No [id number] Take 1 Univers rol, 10-11 11-12 capsule by ity of vitamin d2, 00:00: 00:00 mouth [place] 1,250 mcg 00 :00 weekly for Medi srniivasa (50,000 8 doses. Branch unit) capsule clonazePAM 2021-10 Yes .5mg Take 0.5 Uni vers 0.5 mg 0-30 mg by ity of tablet 16:58: mouth in [place] 59 the Medical morning Branch and 0.5 mg at noon and 0.5 mg in the evening. traZODone 2021-10 Yes 50mg Take 50 mg Un jennie 50 mg 0-30 by mouth ity of tablet 16:58: at [place] 59 bedtime. Medical Branch FLUoxetine 2021-10 Yes 40mg Take 40 mg U nivers 40 mg 0-30 by mouth ity of capsule 16:58: in the [place] 59 morning Medical and 40 mg Branch in the evening. PARoxetine 2021-10- No 30mg Take 30 mg Univers 30 mg 0-30 10-30 by mouth 2 ity of tablet 16:30: 00:00 (two) [place] 33 :00 times Medical daily. Branch meloxicam 2021-10- No Take by Univ ers (MOBIC 0-30 10-30 mouth. ity of ORAL) 16:30: 00:00 Patient [place] 33 :00 with pill Medical bottle Branch with handwritte n name Mobic 1 daily for pain. No dosage. White flat tablets. FLUoxetine 2021-10 Yes 40mg 40 mg, Unive rs (PROZAC) 0-30 Oral, BID, ity o f capsule 40 01:00: First dose [place] mg 00 (after Medical last Branch modificati on) on 08/04/22 at 2000, Until Discontinu ed, Routine ergocalcife 2021-10 Yes [id number] 50,000 Un jennie rol 0-29 Units, ity of (vitamin 17:11: Oral, [place] d2) 29 QWEEKLY, Medical (CALCIFEROL First dose Br anch ) capsule on [facility] 50,000 08/04/22 Units at 1215, Until Discontinu ed, Routine potassium 2021-10 No 10meq 10 mEq, IV Univers chloride in 08-04 Piggyback, i ty of water 10 15:00: 18:45 Q1H, 3 [place] mEq/100 mL 00 :04 doses, Medical RTU 10 mEq First dose Bra nch on [facility] 08/04/22 at 1000, Last dose on [facility] 08/04/22 at 1200, Administer over 60 Minutes, 100 mL KCL 2021-10 40meq 40 mEq, Univers (KLOR-CON 08-04 Oral, ity of M20) tablet 15:00: 15:00 ONCE, 1 [place] 40 mEq 00 :00 dose, On Medical [facility] Branch 08/04/22 at 1000, Routine pyridoxine 2021-10 Yes 100mg 100 mg, Uni vers (vitamin 0 Oral, ity of B6) 14:00: DAILY, [place] (VITAMIN 00 First dose Medic al B6) tablet on [facility] Branch 100 mg 08/04/22 at 0900, Until Discontinu ed, Routine thiamine 2021-10 Yes 100mg 100 mg, Unive rs (VITAMIN 0 Oral, ity of B1) tablet 14:00: DAILY, [place] 100 mg 00 First dose Medical on [facility] Branch 08/04/22 at 0900, Until Discontinu ed, Routine enoxaparin 2021-10 Yes 40mg 40 mg, Unive rs (LOVENOX) Subcutaneo ity of injection 14:00: us, DAILY, [place] 40 mg 00 First dose Medical on [facility] Branch 08/04/22 at 0900, Until Discontinu ed, Routine FLUoxetine 2021-10- No 20mg 20 mg, Univ ers (PROZAC) 08-04 Oral, ity of capsule 20 14:00: 20:36 DAILY, [place] mg 00 :26 First dose Medical on [facility] Branch 08/04/22 at 0900, Until Discontinu ed, Routine lactobacill 2021-10 Yes .5mg 0.5 mg, Uni vers us 0-29 Oral, BID, ity of acidophilus 13:00: First dose [place] tablet 0.5 00 on Sat Medical mg 08/04/22 Branch at 0800, Until Discontinu ed, Routine levoFLOXaci 2021-10 Yes 500mg 500 mg, Un jennie n 0-29 Oral, ity of (LEVAQUIN) 04:45: Q24H, [place] tablet 500 00 First dose Med ical mg on Sat Branch 08/03/22 at 2345, Until Discontinu ed, WILFREDO
Re ason for Anti-Infec tive: Empiric Therapy for Suspected Infection< br>Empiric Therapy Site: Urine<br&g t;Duration of therapy: 5 days thiamine 2021-10 250mg IV Univers (VITAMIN 008-04 Piggyback, ity of B1) 250 mg 04:30: 13:59 ONCE, 1 [place] in NaCl 00 :28 dose, On Medical 0.9% (NS) Sat Branch piggyback 08/03/22 at 2330, 100 mL traZODone 2021-10 Yes 50mg 50 mg, Univer s (DESYREL) 0-29 Oral, QHS, ity of tablet 50 03:45: First dose [place] mg 00 on Sat Medical 08/03/22 Branch at 2245, Until Discontinu ed, Routine multivitami 2021-10 Yes 1{tbl} 1 tablet, Univers n tablet 1 0-29 Oral, ity of tablet 03:45: DAILY, [place] 00 First dose Medical on Sat Branch 08/03/22 at 2245, Until Discontinu ed, Routine clonazePAM 2021-10 Yes .5mg 0.5 mg, Univ ers (KLONOPIN) 0-29 Oral, TID, ity of tablet 0.5 03:45: First dose [place] mg 00 (after Medical last Branch reorder) on Sat08/03/22 at 2245, Until Discontinu ed, Routine ondansetron 2021-10 Yes 4mg 4 mg, Slow Univers (ZOFRAN 0-29 IV Push, ity of (PF)) 00:30: Q6HPRN, [place] injection 4 40 Starting Medi srinivasa mg on Sat Branch 08/03/22 at 1930, Until Discontinu ed, Routine, Nausea and Vomiting (N/V) NaCl 0.9% 2021-10 Yes 1000mL at 125 Univ ers (NS) IV 0-28 mL/hr, IV ity of infusion 21:45: Infusion, [place] 1,000 mL 00 CONTINUOUS Medic al , Starting Branch on Sat08/03/22 at 1645, Until Discontinu ed, Routine clonazePAM 2021-10 No .5mg 0.5 mg, Uni vers (KLONOPIN) 008-03 Oral, ity of tablet 0.5 20:45: 19:50 ONCE, 1 [place] mg 00 :00 dose, On Medical Fri Branch 08/03/22 at 1545, Routine NaCl 0.9% 2021-10 No 1000mL at 999 Uni vers (NS) bolus 0-28 10-28 mL/hr, ity of infusion 20:00: 22:18 1,000 mL, [place] 1,000 mL 00 :00 IV Medical Infusion, Branch ONCE, 1 dose, On Sat08/03/22 at 1500, WILFREDO acetaminoph 2021-10 No 650mg 650 mg, U nivers en 0-28 08-03 Oral, ity of (TYLENOL) 19:45: 19:44 ONCE, 1 [place] tablet 650 00 :00 dose, On Medic al mg Sat Branch 08/03/22 at 1445, WILFREDO levoFLOXaci 2021-10 No 500mg 500 mg, U nivers n 0-24 10-24 Oral, ity of (LEVAQUIN) 06:30: 06:33 ONCE, 1 [place] tablet 500 00 :00 dose, On Medic al mg Sat Branch 07/30/22 at 0130, WILFREDO
Re ason for Anti-Infec tive: Documented Infection< br>Documen carol Infection Site: Urine
D uration of Therapy: Other (see Comments) NaCl 0.9% 2021-10 Yes 1000mL at 999 Univ ers (NS) IV 0-24 mL/hr, ity of infusion 05:15: Intravenou [place] 1,000 mL 00 s, Medical CONTINUOUS Branch , Starting on Sat07/30/22 at 0015, Until Discontinu ed, Routine levoFLOXaci 2021-10 Yes [id number] 500mg Take 1 Univers n 0-24 tablet by ity of (LEVAQUIN) 00:00: mouth [place] 500 mg 00 every 24 Medical tablet (- Branch ur) hours. levoFLOXaci 2021-2021- No [id number] 500mg Take 1 Univers n 0-24 10-30 tablet by ity of (LEVAQUIN) 00:00: 00:00 mouth [place] 500 mg 00 :00 every 24 Medical tablet (- Branch ur) hours. PARoxetine 2021-0 Yes 30mg Take 30 mg U nivers 30 mg 4-28 by mouth 2 ity of tablet 16:24: (two) [place] 39 times Medical daily. Branch meloxicam 2021-0 Yes Take by [facility] rs (MOBIC 4-28 mouth. ity of ORAL) 16:24: Patient [place] 39 with pill Medical bottle Branch with handwritte n name Mobic 1 daily for pain. No dosage. [place] flat tablets. PARoxetine 2021-0 Yes 30mg Take 30 mg U nivers 30 mg 4-28 by mouth 2 ity of tablet 16:24: (two) [place] 39 times Medical daily. Branch meloxicam 2021-0 Yes Take by [employer] [facility] (MOBIC 4-28 mouth. ity of ORAL) 16:24: Patient [place] 39 with pill Medical bottle Branch with handwritte n name Mobic 1 daily for pain. No dosage. [place] flat tablets. PARoxetine 2021-0 Yes 30mg Take 30 mg U nivers 30 mg 4-28 by mouth 2 ity of tablet 16:24: (two) [place] 39 times Medical daily. Branch meloxicam 2021-0 Yes Take by [employer] [facility] (MOBIC 4-28 mouth. ity of ORAL) 16:24: Patient [place] 39 with pill Medical bottle Branch with handwritte n name Mobic 1 daily for pain. No dosage. [place] flat tablets. PARoxetine 2021-0 Yes 30mg Take 30 mg U nivers 30 mg 4-28 by mouth 2 ity of tablet 16:24: (two) [place] 39 times Medical daily. Branch meloxicam 2021-0 Yes Take by [facility] rs (MOBIC 4-28 mouth. ity of ORAL) 16:24: Patient [place] 39 with pill Medical bottle Branch with handwritte n name Mobic 1 daily for pain. No dosage. [place] flat tablets. PARoxetine 2021-0 Yes 30mg Take 30 mg U nivers 30 mg 4-28 by mouth 2 ity of tablet 16:24: (two) [place] 39 times Medical daily. Branch meloxicam 2021-0 Yes Take by Unive rs (MOBIC 4-28 mouth. ity of ORAL) 16:24: Patient [place] 39 with pill Medical bottle Branch with handwritte n name Mobic 1 daily for pain. No dosage. [place] flat tablets. risperiDONE 2021-0 Yes [id number] .5mg Take 1 Univers 0.5 mg 4-28 tablet by ity of tablet 00:00: mouth 2 [place] 00 (two) Medical times Branch daily. risperiDONE 2022-0 Yes [id number] .5mg Take 1 Univers 0.5 mg 4-28 tablet by ity of tablet 00:00: mouth 2 [place] 00 (two) Medical times Branch daily. risperiDONE 2021-0 Yes [id number] .5mg Take 1 Univers 0.5 mg 4-28 tablet by ity of tablet 00:00: mouth 2 [place] 00 (two) Medical times Branch daily. risperiDONE 2021-0 Yes [id number] .5mg Take 1 Univers 0.5 mg 4-28 tablet by ity of tablet 00:00: mouth 2 [place] 00 (two) Medical times Branch daily. risperiDONE 2-0 Yes [id number] .5mg Take 1 Univers 0.5 mg 4-28 tablet by ity of tablet 00:00: mouth 2 [place] 00 (two) Medical times Branch daily. risperiDONE 2021-0 2022- No [id number] .5mg Take 1 Univers 0.5 mg 4-28 10-30 tablet by ity of tablet 00:00: 00:00 mouth 2 [place] 00 :00 (two) Medical times Branch daily. thiamine 2021-0 Yes 100mg 100 mg, Unive rs (VITAMIN 4-27 Oral, ity of B1) tablet 14:00: DAILY, [place] 100 mg 00 First dose Medical on Sat01/31/22 at 0900, Until Discontinu ed, Routine LORazepam 2021-0 Yes 3mg 3 mg, Univers (ATIVAN) 4-27 Oral, Q4H, ity o f tablet 3 mg 01:00: First dose [place] 00 (after Medical last Branch modificati on) on Sat01/30/22 at 2000, Until Discontinu ed, Routine thiamine 2021-0 Yes [id number] 100mg Take 1 U nivers 100 mg 4-27 tablet by ity of tablet 00:00: mouth [place] 00 daily. Medical Branch LORazepam 1 2021-0 Yes [id number] 3mg Take 3 Univers mg tablet 4-27 tablets by ity of 00:00: mouth [place] 00 every 4 Medical (four) Branch hours. thiamine 2021-0 Yes [id number] 100mg Take 1 U nivers 100 mg 4-27 tablet by ity of tablet 00:00: mouth [place] 00 daily. Medical Branch LORazepam 1 2021-0 Yes [id number] 3mg Take 3 Univers mg tablet 4-27 tablets by ity of 00:00: mouth [place] 00 every 4 Medical (four) Branch hours. thiamine 2021-0 Yes [id number] 100mg Take 1 U nivers 100 mg 4-27 tablet by ity of tablet 00:00: mouth [place] 00 daily. Medical Branch LORazepam 1 2021-0 Yes [id number] 3mg Take 3 Univers mg tablet 4-27 tablets by ity of 00:00: mouth [place] 00 every 4 Medical (four) Branch hours. thiamine 2021-0 Yes [id number] 100mg Take 1 U nivers 100 mg 4-27 tablet by ity of tablet 00:00: mouth [place] 00 daily. Medical Branch LORazepam 1 2021-0 Yes [id number] 3mg Take 3 Univers mg tablet 4-27 tablets by ity of 00:00: mouth [place] 00 every 4 Medical (four) Branch hours. thiamine 2021-0 Yes [id number] 100mg Take 1 U nivers 100 mg 4-27 tablet by ity of tablet 00:00: mouth [place] 00 daily. Medical Branch LORazepam 1 2021-0 Yes [id number] 3mg Take 3 Univers mg tablet 4-27 tablets by ity of 00:00: mouth [place] 00 every 4 Medical (four) Branch hours. thiamine 2021-0 Yes [id number] 100mg Take 1 U nivers 100 mg 4-27 tablet by ity of tablet 00:00: mouth [place] 00 daily. Medical Branch thiamine 2021-0 2021- No [id number] 100mg Take 1 Univers 100 mg 4-27 11-12 tablet by ity of tablet 00:00: 00:00 mouth [place] 00 :00 daily. Medical Branch LORazepam 1 2021- No [id number] 3mg Take 3 Univers mg tablet 01-31 10-30 tablets by ity of 00:00: 00:00 mouth [place] 00 :00 every 4 Medical (four) Branch hours. LORazepam 2021- No 2mg 2 mg, Slow U nivers (ATIVAN) 01-30- IV Push, ity of injection 2 23:30: 22:35 ONCE, 1 [place] mg 00 :00 dose, On Medical [facility] Branch 01/30/22 at 1830, WILFREDO LORazepam 2021- No 2mg 2 mg, Slow U nivers (ATIVAN) 01-30 IV Push, ity of injection 2 22:53: 23:21 ONCE, 1 [place] mg 00 :00 dose, On Medical [facility] Branch 01/30/22 at 1800, STAT pyridoxine Yes 100mg 100 mg, Uni vers (vitamin 01-30 Oral, ity of B6) 16:00: DAILY, [place] (VITAMIN 00 First dose Medic al B6) tablet on [facility] 100 mg 01/30/22 at 1100, Until Discontinu ed, Routine chlordiazeP 2021- No Take by Un jennie OXIDE 5 mg 01-30 mouth 3 ity o f capsule 11:35: 00:00 (three) [place] 52 :00 times Medical daily. Branch gabapentin 2021- No 300mg Take 300 U nivers 300 mg 01-30- mg by ity of capsule 11:35: 00:00 mouth 3 [place] 52 :00 (three) Medical times Branch daily. gabapentin Yes [id number] 200mg Take 2 [facility] 100 mg -26 capsules it[facility] of capsule 00:00: [place] mouth 2 [place] 00 (two) Medical times Branch daily as needed (back pain). pyridoxine, 2021- Yes [id number] 100mg Take 1 [facility] vitamin B6, -26 tablet by ity of 100 mg 00:00: mouth [place] tablet 00 daily. Medical Branch gabapentin Yes [id number] 200mg Take 2 [facility] 100 mg 4-26 capsules it[facility] of capsule 00:00: by mouth 2 [place] 00 (two) Medical times Branch daily as needed (back pain). pyridoxine, Yes [id number] 100mg Take 1 [facility] vitamin B6, 4-26 tablet by ity of 100 mg 00:00: mouth [place] tablet 00 daily. Medical Branch gabapentin Yes [id number] 200mg Take 2 [facility] 100 mg 4-26 capsules it[facility] of capsule 00:00: by mouth 2 [place] 00 (two) Medical times Branch daily as needed (back pain). pyridoxine, Yes [id number] 100mg Take 1 [facility] vitamin B6, 4-26 tablet by ity of 100 mg 00:00: mouth [place] tablet 00 daily. Medical Branch gabapentin Yes [id number] 200mg Take 2 [facility] 100 mg 4-26 capsules it[facility] of capsule 00:00: by mouth 2 [place] 00 (two) Medical times Branch daily as needed (back pain). pyridoxine, Yes [id number] 100mg Take 1 [facility] vitamin B6, 4-26 tablet by ity of 100 mg 00:00: mouth [place] tablet 00 daily. Medical Branch gabapentin Yes [id number] 200mg Take 2 [facility] 100 mg 4-26 capsules it[facility] of capsule 00:00: by mouth 2 [place] 00 (two) Medical times Branch daily as needed (back pain). pyridoxine, Yes [id number] 100mg Take 1 [facility] vitamin B6, 4-26 tablet by ity of 100 mg 00:00: mouth [place] tablet 00 daily. Medical Branch pyridoxine, Yes [id number] 100mg Take 1 [facility] vitamin B6, 4-26 tablet by ity of 100 mg 00:00: mouth [place] tablet 00 daily. Medical Branch pyridoxine, 2021- No [id number] 100mg Take 1 [facility] vitamin B6, 4-26 11-12 tablet by it y of 100 mg 00:00: 00:00 mouth [place] tablet 00 :00 daily. Medical Branch gabapentin 2021- No [id number] 200mg Take 2 [facility] 100 mg 4-26 10-30 capsules ity of capsule 00:00: 00:00 by mouth 2 [place] 00 :00 (two) Medical times Branch daily as needed (back pain). traMADoL 50 2021- No 4647 50mg Take 1 [facility] vers mg tablet 4-26 05- tablet by ity of 00:00: 04:59 mouth [place] 00 :00 every 6 Medical (six) Branch hours as needed for Pain (scale 7-10) for up to 7 days. Indication s: acute pain traMADoL 50 2021-0 2021- No 4647 50mg Take 1 [facility] vers mg tablet 01-30- tablet by ity of 00:00: 04:59 mouth [place] 00 :00 every 6 Medical (six) Branch hours as needed for Pain (scale 7-10) for up to 7 days. Indication s: acute pain traMADoL 50 2021-0 2021- No 4647 50mg Take 1 [facility] vers mg tablet 01-30- tablet by ity of 00:00: 04:59 mouth [place] 00 :00 every 6 Medical (six) Branch hours as needed for Pain (scale 7-10) for up to 7 days. Indication s: acute pain LORazepam 2 2021- No [id number] 2mg Take 1 [facility] mg tablet 01-30 tablet by ity of 00:00: 00:00 mouth [place] 00 :00 every 4 Medical (four) Branch hours. traMADoL Yes 50mg 50 mg, [facility] (ULTRAM) 01-29 Oral, ity of tablet 50 16:19: Q6HPRN, [place] mg 36 Starting Medical on Mon Branch 01/29/22 at 1119, Until Discontinu ed, Routine, Pain (scale 7-10) KCL 2021-2021- No 40meq 40 mEq, [facility] (KLOR-CON 01-29-25 Oral, ity of M20) tablet 12:45: 12:56 ONCE, 1 [place] 40 mEq 00 :00 dose, On Medical Mon Branch 01/29/22 at 0745, Routine LORazepam 2021- No 2mg 2 mg, Univer s (ATIVAN) 01-27-26 Oral, Q4H, ity of tablet 2 mg 21:00: 22:15 First dose [place] 00 :23 (after Medical last Branch modificati on) on 01/27/22 at 1600, Until Discontinu ed, Routine LORazepam 2021-0 Yes 2mg 2 mg, Slow Un jennie (ATIVAN) 01-27 IV Push, ity of injection 2 15:30: Q4HPRN, [place] mg 00 Starting Medical on Sat Branch 01/27/22 at 1030, Until Discontinu ed, Routine, Agitation, breakthrou gh agitation chlordiazeP 2021- No 5mg 5 mg, Univ ers OXIDE 01-27 Oral, TID, ity of (LIBRIUM) 15:30: 18:54 First dose [place] capsule 5 00 :32 on Sat Medical mg 01/27/22 at Branch 1030, Until Discontinu ed, Routine LORazepam 2021- No 2mg 2 mg, Slow U nivers (ATIVAN) 01-26 IV Push, ity of injection 2 21:00: 15:22 Q4H WHILE [place] mg 00 :31 AWAKE, Medical First dose Branch on 01/26/22 at 1600, Until Discontinu ed, Routine LORazepam 2021- No 2mg 2 mg, Slow U nivers (ATIVAN) 01-26 IV Push, ity of injection 2 20:30: 19:29 ONCE, 1 [place] mg 00 :00 dose, On Medical Fri Branch 01/26/22 at 1530, Routine LORazepam 2021- No 2mg 2 mg, Slow U nivers (ATIVAN) 01-26 IV Push, ity of injection 2 20:15: 19:19 ONCE, 1 [place] mg 00 :00 dose, On Medical Fri Branch 01/26/22 at 1515, Routine haloperidol 2021- No 2mg 2 mg, Univ ers lactate 01-25 Intramuscu ity o f (HALDOL) 23:19: 23:23 lar, ONCE, [place] injection 2 00 :00 1 dose, On Me dical mg [place] [facility] 01/25/22 at 1830, STAT diphenhydrA 2021- No 25mg 25 mg, Uni vers MINE 01-25 Intravenou ity of (BENADRYL) 22:30: 21:33 s, ONCE, 1 [place] injection 00 :00 dose, On Medica l 25 mg [place] Branch 01/25/22 at 1730, Routine haloperidol 2021- No 2mg 2 mg, Univ ers lactate 01-25 Intramuscu ity o f (HALDOL) 22:15: 21:20 lar, ONCE, [place] injection 2 00 :00 1 dose, On Me dical mg [place] [facility] 01/25/22 at 1715, Routine haloperidol 2021- No 2mg 2 mg, Univ ers lactate 01-25 Intramuscu ity o f (HALDOL) 20:45: 19:51 lar, ONCE, [place] injection 2 00 :00 1 dose, On Me dical mg [place] [facility] 01/25/22 at 1545, Routine hydrOXYzine 2021- No 25mg 25 mg, Uni vers (ATARAX) 01-25 Oral, ity of tablet 25 19:00: 19:37 Q6HPRN, [place] mg 03 :00 Starting Medical on [place] [facility] 01/25/22 at 1400, Until [place] 01/25/22 at 1437, Routine, Anxiety KCL 2021- No 40meq 40 mEq, Univers (KLOR-CON 01-25 Oral, Q4H, ity of M20) tablet 09:00: 13:39 2 doses, [place] 40 mEq 00 :00 First dose Medical (after Branch last reorder) on Sat01/25/22 at 0400, Last dose on Sat01/25/22 at 0800, Routine haloperidol 2021- No 2mg 2 mg, Univ ers lactate 01-24 Intramuscu ity o f (HALDOL) 23:32: 01:40 lar, ONCE, [place] injection 2 00 :00 1 dose, On Me dical mg Sat Branch 01/24/22 at 1845, STAT LORazepam 2021- No 1mg 1 mg, Univer s (ATIVAN) 01-24 Intramuscu ity of injection 1 23:00: 21:56 lar, ONCE, [place] mg 00 :00 1 dose, On Medical Sat Branch 01/24/22 at 1800, Routine haloperidol 2021- No 2mg 2 mg, Univ ers lactate 01-24 Intramuscu ity o f (HALDOL) 22:54: 23:00 lar, ONCE, [place] injection 2 00 :00 1 dose, On Me dical mg Sat01/24/22 at 1800, STAT thiamine 2021- No 100mg 100 mg, Univ ers (VITAMIN 01-24 Oral, ity of B1) tablet 14:45: 11:47 DAILY, [place] 100 mg 00 :57 First dose Medical on Sat01/24/22 at 0945, Until Discontinu ed, Routine KCL 2021- No 40meq 40 mEq, Univers (KLOR-CON 01-24 Oral, ity of M20) tablet 13:15: 14:26 ONCE, 1 [place] 40 mEq 00 :00 dose, On Sat [place] 01/24/22 at 0815, Routine sucralfate Yes 1g 1 g, Oral, U nivers (CARAFATE) 01-23 AC+HS, ity of tablet 1 g 16:30: First dose [place] 00 on Sat [facility] 01/23/22 at Branch 1130, Until Discontinu ed, Routine lidocaine 2021- No 1{patch 1 Patch, Univers (LIDODERM) 01-23 } Topical, ity of 5 % (700 16:30: 04:00 Administer [place] mg/patch) 00 :00 over 12 Medical patch 1 Hours, [place] Patch ONCE, 1 dose, On Sat01/23/22 at 1130, Routine lactulose Yes 30mL 30 mL, Univer s (CEPHULAC) 01-23 Oral, BID, ity of solution 30 15:30: First dose [place] mL 00 (after Medical last Branch modificati on) on Sat01/23/22 at 1030, Until Discontinu ed, Routine naproxen 0 Yes 250mg 250 mg, Unive rs (NAPROSYN) 01-23 Oral, ity of tablet 250 15:27: Q8HPRN, [place] mg 31 Starting Medical on Sat [place] 01/23/22 at 1027, Until Discontinu ed, Routine, Pain (scale 4-6) bisacodyL 2021- No 10mg 10 mg, Unive rs (DULCOLAX) 01-23 Rectal, ity o f suppository 15:17: 16:00 ONCE, 1 [place] 10 mg 00 :00 dose, On Medical [facility] 01/23/22 at 1030, Routine sennosides- 0 Yes 1{tbl} 1 tablet, Univers docusate 01-23 Oral, ity of sodium 14:00: DAILY, [place] (SENOKOT-S) 00 First dose Me dical 8.6-50 mg on [facility] per tablet 01/23/22 at 1 tablet 0900, Until Discontinu ed, Routine enoxaparin 0 Yes 40mg 40 mg, Unive rs (LOVENOX) 01-23 Subcutaneo ity of injection 14:00: us, DAILY, [place] 40 mg 00 First dose Medical on [facility] 01/23/22 at 0900, Until Discontinu ed, Routine polyethylen Yes 17g 17 g, Unive rs e glycol 01-23 Oral, BID, ity o f 3350 powder 13:00: First dose [place] 17 g 00 on [facility] 01/23/22 at Branch 0800, Until Discontinu ed, Routine PARoxetine Yes 25mg 25 mg, Unive rs (PAXIL) 01-23 Oral, BID, ity of tablet 25 13:00: First dose [place] mg 00 on [facility] 01/23/22 at Branch 0800, Until Discontinu ed, Routine gabapentin Yes 200mg 200 mg, Uni vers (NEURONTIN) 01-23 Oral, ity of capsule 200 04:05: BIDPRN, [place] mg 27 Starting Medical on Sat [place] 01/22/22 at 2305, Until Discontinu ed, Routine, back pain chlordiazeP 2021- No 5mg 5 mg, Univ ers OXIDE 01-23 Oral, ity of (LIBRIUM) 03:28: 20:04 TIDPRN, [place] capsule 5 48 :02 Starting Medica l mg on Sat [place] 01/22/22 at 2228, Until Sat01/26/22 at 1504, Routine, agitation, anxiety thiamine 0 2021- No 100mg 100 mg, Univ ers (VITAMIN 01-22- Slow IV ity of B1) 23:15: 14:38 Push, [place] injection 00 :42 DAILY, 3 Medica l 100 mg doses, Branch First dose on Sat01/22/22 at 1815, Last dose on Sat01/24/22 at 0900, Routine acetaminoph 2021-0 Yes 650mg 650 mg, Un jennie en 4-18 Oral, ity of (TYLENOL) 23:13: Q6HPRN, [place] tablet 650 52 Starting Medic al mg on Sat [place] 01/22/22 at 1813, Until Discontinu ed, Routine, Pain (scale 1-3) PARoxetine 2021-0 Yes 30mg Take 30 mg U nivers 30 mg 4-18 by mouth 2 ity of tablet 23:11: (two) [place] 00 times Medical daily. Branch chlordiazeP 0 Yes Take by Uni vers OXIDE 5 mg 4-18 mouth 3 ity of capsule 23:11: (three) [place] 00 times Medical daily. Branch gabapentin 0 Yes 300mg Take 300 Un [place] 300 mg 4-18 mg by ity of capsule 23:11: mouth 3 [place] 00 (three) Medical times Branch daily. meloxicam Yes Take by Unive rs (MOBIC -18 mouth. ity of ORAL) 23:11: Patient [place] 00 with pill Medical bottle Branch with handwritte n name Mobic 1 daily for pain. No dosage. [place] flat tablets. haloperidol 2021- No 2mg 2 mg, Univ ers lactate 18 -18 Intravenou ity o f (HALDOL) 19:45: 18:45 s, ONCE, 1 [place] injection 2 00 :00 dose, On Medi srinivasa mg Sat [place] 01/22/22 at 1445, STAT PARoxetine 2021-0 Yes 30mg Take 30 mg U nivers 30 mg 4-16 by mouth 2 ity of tablet 12:11: (two) [place] 23 times Medical daily. Branch chlordiazeP 2021-0 Yes Take by Uni vers OXIDE 5 mg 4-16 mouth 3 ity of capsule 12:11: (three) [place] 23 times Medical daily. Branch gabapentin 2021-0 Yes 300mg Take 300 Un [place]enn[place] 300 mg 4-16 mg by ity of capsule 12:11: mouth 3 [place] 23 (three) Medical times Branch daily. fluoxetine 2021-0 2021- No Take by Uni vers HCl (PROZAC 4-16 04-16 mouth. ity o f ORAL) 10:43: 00:00 [place] 53 :00 Medical Branch proMETHazin 2021- No 12.5mg Take 12.5 Univers e 25 mg 4-16 04-16 mg by ity of tablet 10:43: 00:00 mouth [place] 53 :00 every 6 Medical (six) Branch hours as needed. prazosin 1 2021- No 1mg Take 1 mg U nivers mg capsule -16 -16 by mouth ity of 10:43: 00:00 at [place] 53 :00 bedtime. Medical Branch traZODone 2021- No 50mg Take 50 mg U nivers 50 mg -16 -16 by mouth ity of tablet 10:43: 00:00 at [place] 53 :00 bedtime. Medical Branch levETIRAcet 2021- No 500mg Take 500 [facility] am 500 mg 4-16 04-16 mg by ity of tablet 10:43: 00:00 mouth 2 [place] 53 :00 (two) Medical times Branch daily. meloxicam 2021- No Take by [facility] ers (MOBIC 4-16 04-16 mouth. ity of ORAL) 10:43: 00:00 [place] 53 :00 Medical Branch cyclobenzap 2021- No 10mg Take 10 mg Univers rine HCl -16 -16 by mouth ity of (FLEXERIL 10:43: 00:00 daily. [place] ORAL) 53 :00 Medical Branch cyclobenzap 0 Yes [id number] 5mg Take 1 [facility] rine 5 mg 4-16 tablet by ity o f tablet 00:00: mouth 3 [place] 00 (three) Medical times Branch daily. cyclobenzap 2021-0 Yes [id number] 5mg Take 1 [facility] rine 5 mg 4-16 tablet by ity o f tablet 00:00: mouth 3 [place] 00 (three) Medical times Branch daily. cyclobenzap 2021-0 Yes [id number] 5mg Take 1 [facility] rine 5 mg 4-16 tablet by ity o f tablet 00:00: mouth 3 [place] 00 (three) Medical times Branch daily. cyclobenzap 2021-0 Yes [id number] 5mg Take 1 [facility] rine 5 mg 4-16 tablet by ity o f tablet 00:00: mouth 3 [place] 00 (three) Medical times Branch daily. cyclobenzap 2021- Yes [id number] 5mg Take 1 [facility] rine 5 mg 4-16 tablet by ity o f tablet 00:00: mouth 3 [place] 00 (three) Medical times Branch daily. cyclobenzap 2021- Yes [id number] 5mg Take 1 [facility] rine 5 mg 4-16 tablet by ity o f tablet 00:00: mouth 3 [place] 00 (three) Medical times Branch daily. cyclobenzap Yes [id number] 5mg Take 1 [facility] rine 5 mg 4-16 tablet by ity o f tablet 00:00: mouth 3 [place] 00 (three) Medical times Branch daily. cyclobenzap 2021- No [id number] 5mg Take 1 [facility] rine 5 mg 4-16 10-30 tablet by ity of tablet 00:00: 00:00 mouth 3 [place] 00 :00 (three) Medical times Branch daily. levoFLOXaci 2021- No [id number] 500mg Take 1 Univers n 500 mg 4-16 04-26 tablet by ity o f tablet 00:00: 00:00 mouth [place] 00 :00 every Medical evening Branch for 3 days. HYDROcodone 2021- No 4647 1{tbl} Take 1 U nivers -acetaminop 4-16 04-26 tablet by it y of hen 5-325 00:00: 00:00 mouth [place] mg tablet 00 :00 every 6 Medical (six) Branch hours as needed for Pain (scale 7-10) for up to 5 days. Indication s: acute pain HYDROcodone 2021- No 4647 1{tbl} Take 1 U nivers -acetaminop 4-16 04-22 tablet by it y of hen 5-325 00:00: 04:59 mouth [place] mg tablet 00 :00 every 6 Medical (six) Branch hours as needed for Pain (scale 7-10) for up to 5 days. Indication s: acute pain HYDROcodone 2021-2021- No 4647 1{tbl} Take 1 U nivers -acetaminop 4-16 04-22 tablet by it y of hen 5-325 00:00: 04:59 mouth [place] mg tablet 00 :00 every 6 Medical (six) Branch hours as needed for Pain (scale 7-10) for up to 5 days. Indication s: acute pain levoFLOXaci 2021- No [id number] 500mg Take 1 Univers n 500 mg 16 -20 tablet by ity o f tablet 00:00: 04:59 mouth [place] 00 :00 every Medical evening Branch for 3 days. levoFLOXaci 2021-0 2021- No [id number] 500mg Take 1 Univers n 500 mg 16 -20 tablet by ity o f tablet 00:00: 04:59 mouth [place] 00 :00 every Medical evening Branch for 3 days. HYDROcodone Yes 1{tbl} 1 tablet, Univers -acetaminop 4-14 Oral, ity of hen (NORCO 23:33: Q4HPRN, [place] 5) 5-325 mg 52 Starting Medi srinivasa tablet 1 on [facility] Branch tablet 01/18/22 at 1833, Until Discontinu ed, Routine, Pain (scale 7-10) traMADoL Yes 50mg 50 mg, Univers (ULTRAM) 4-14 Oral, ity of tablet 50 23:33: Q4HPRN, [place] mg 42 Starting Medical on [place] Branch 01/18/22 at 1833, Until Discontinu ed, Routine, Pain (scale 4-6) levoFLOXaci 2021- No 500mg 500 mg, U nivers n - 04-17 Oral, QPM, ity of (LEVAQUIN) 22:00: 21:59 3 doses, [place] tablet 500 00 :00 First dose Med ical mg on [place] Branch 01/18/22 at 1700, Last dose on 01/20/22 at 1700, WILFREDO
Re ason for Anti-Infec tive: Empiric Therapy for Suspected Infection< br>Empiric Therapy Site: Urine
D uration of therapy: 72 hours
R estricted use approved by: [employer] PROVIDER ibuprofen Yes 400mg 400 mg, Univ ers (IBU) 4-14 Oral, BID ity of tablet 400 16:00: MEALS, [place] mg 00 First dose Medical on [facility] Branch 01/18/22 at 1100, Until Discontinu ed, Routine cyclobenzap Yes 5mg 5 mg, Unive rs rine 01-18 Oral, TID, ity of (FLEXERIL) 16:00: First dose [place] tablet 5 mg 00 (after Medica l last Branch modificati on) on Sat01/18/22 at 1100, Until Discontinu ed levoFLOXaci No 500mg 500 mg, IV Univers n in D5W 01-18 Piggyback, ity of (LEVAQUIN) 00:00: 21:11 Q24H ABX, [place] 500 mg/100 00 :52 First dose Med ical mL (after Branch Piggyback last 500 mg reorder) on Sat01/17/22 at 1900, Until Discontinu ed, Administer over 60 Minutes, 100 mL
Reas on for Anti-Infec tive: Documented Infection& lt;br>Docu mented Infection Site: Urine
D uration of Therapy: Other (see Comments) enoxaparin Yes 30mg 30 mg, Unive rs (LOVENOX) 01-17 Subcutaneo ity of injection 14:00: us, DAILY, [place] 30 mg 00 First dose Medical on Sat01/17/22 at 0900, Until Discontinu ed, Routine NaCl 0.9% No 1000mL at 75 Univ ers (NS) IV 01-17-13 mL/hr, IV ity of infusion 05:15: 04:38 Infusion, [place] 1,000 mL 00 :00 ONCE, 1 Medical dose, On Branch Sat01/17/22 at 0015, Routine chlordiazeP Yes 10mg 10 mg, Univ ers OXIDE 01-17 Oral, TID, ity of (LIBRIUM) 04:15: First dose [place] capsule 10 00 on Sat Medical mg 01/16/22 at Branch 2315, Until Discontinu ed, Routine cyclobenzap No 10mg 10 mg, Uni vers rine 01-17 Oral, ity of (FLEXERIL) 04:00: 15:49 [id number], [place] tablet 10 17 :24 Starting Medica l mg on Sat01/16/22 at 2300, Until [place] 01/18/22 at 1049, Muscle Spasms PARoxetine Yes 30mg 30 mg, Unive rs (PAXIL) 13 Oral, BID, ity of tablet 30 03:30: First dose [place] mg 00 on [facility] 01/16/22 at Branch 2230, Until Discontinu ed, Routine gabapentin Yes 300mg 300 mg, Uni vers (NEURONTIN) 01-17 Oral, TID, it y of capsule 300 03:30: First dose [place] mg 00 on [facility] 01/16/22 at Branch 2230, Until Discontinu ed, Routine acetaminoph Yes 650mg 650 mg, Un jennie en 01-17 Oral, ity of (TYLENOL) 00:33: Q6HPRN, [place] tablet 650 50 Starting Medic al mg on [facility] 01/16/22 at 1933, Until Discontinu ed, Routine, Pain (scale 1-3) levoFLOXaci 2021- No 500mg 500 mg, IV Univers n in D5W 01-17 04 Piggyback, ity of (LEVAQUIN) 00:15: 01:03 ONCE, 1 [place] 500 mg/100 00 :00 dose, On Medic al mL [facility] Piggyback 01/16/22 at 500 mg 1915, Administer over 60 Minutes, 100 mL
R james for Anti-Infec tive: Documented Infection< br>Documen carol Infection Site: Urine<br&g t;Duration of Therapy: Other (see Comments) gabapentin 2021- No 300mg Take 300 U nivers ER 300 mg 01-16 04-12 mg by ity of tablet, 21:37: 00:00 mouth 3 [place] extended 00 :00 (three) Medical release 24 times Branch hr daily as needed for Pain (scale 4-6). TALKING MEDICATION thiamine Yes [id number] 100mg Take 1 U nivers 100 mg 2-05 tablet by ity of tablet 00:00: mouth [place] 00 daily. [facility] thiamine Yes [id number] 100mg Take 1 U nivers 100 mg 2-05 tablet by ity of tablet 00:00: mouth [place] 00 daily. [facility] thiamine Yes [id number] 100mg Take 1 U nivers 100 mg 2-05 tablet by ity of tablet 00:00: mouth [place] 00 daily. Medical Branch thiamine 0 Yes [id number] 100mg Take 1 U nivers 100 mg 2-05 tablet by ity of tablet 00:00: mouth [place] 00 daily. Medical Branch thiamine 0 Yes [id number] 100mg Take 1 U nivers 100 mg 2-05 tablet by ity of tablet 00:00: mouth [place] 00 daily. Medical Branch thiamine 0 Yes [id number] 100mg Take 1 U nivers 100 mg 2-05 tablet by ity of tablet 00:00: mouth [place] 00 daily. Medical Branch thiamine 0 Yes [id number] 100mg Take 1 U nivers 100 mg 2-05 tablet by ity of tablet 00:00: mouth [place] 00 daily. Medical Branch thiamine 0 2022- No [id number] 100mg Take 1 [facility] 100 mg 2-05 04-16 tablet by ity of tablet 00:00: 00:00 mouth [place] 00 :00 daily. Medical Branch fluoxetine Yes Take by Univ ers HCl (PROZAC 2-04 mouth. ity of ORAL) 19:18: [place] [address] Medical Branch gabapentin Yes Take by Univ ers ER 300 mg 2-04 mouth ity of tablet, 19:18: daily. [place] [address] Medical release 24 Branch hr proMETHazin Yes 12.5mg Take 12.5 Univers e 25 mg 2-04 mg by ity of tablet 19:18: mouth [place] [address] every 6 Medical (six) Branch hours as needed. prazosin 1 Yes 1mg Take 1 mg Un [place] mg capsule 2-04 by mouth ity o f 19:18: at [place] [address] bedtime. Medical Branch traZODone 0 Yes 50mg Take 50 mg [place] 50 mg 2-04 by mouth ity of tablet 19:18: at [place] [address] bedtime. Medical Branch levETIRAcet 0 Yes 500mg Take 500 U nivers am 500 mg 2-04 mg by ity of tablet 19:18: mouth 2 [place] 35 (two) Medical times Branch daily. fluoxetine Yes Take by Univ ers HCl (PROZAC 2-04 mouth. ity of ORAL) 19:18: [place] 35 Medical Branch gabapentin Yes Take by Univ ers ER 300 mg 2-04 mouth ity of tablet, 19:18: daily. [place] extended 35 Medical release 24 Branch hr proMETHazin Yes 12.5mg Take 12.5 Univers e 25 mg 2-04 mg by ity of tablet 19:18: mouth [place] [address] every 6 Medical (six) Branch hours as needed. prazosin 1 Yes 1mg Take 1 mg [place] mg capsule 2-04 by mouth ity o f 19:18: at [place] [address] bedtime. Medical Branch traZODone Yes 50mg Take 50 mg [place] 50 mg 2-04 by mouth ity of tablet 19:18: at [place] [address] bedtime. Medical Branch levETIRAcet Yes 500mg Take 500 U nivers am 500 mg 2-04 mg by ity of tablet 19:18: mouth 2 [place] [address] (two) Medical times Branch daily. fluoxetine Yes Take by Univ ers HCl (PROZAC 2-04 mouth. ity of ORAL) 19:18: [place] [address] Medical Branch gabapentin Yes Take by Univ ers ER 300 mg 2-04 mouth ity of tablet, 19:18: daily. [place] extended Medical release 24 Branch hr proMETHazin Yes 12.5mg Take 12.5 Univers e 25 mg 2-04 mg by ity of tablet 19:18: mouth [place] [address] every 6 Medical (six) Branch hours as needed. prazosin 1 Yes 1mg Take 1 mg [place] mg capsule 2-04 by mouth ity o f 19:18: at [place] [address] bedtime. Medical Branch traZODone Yes 50mg Take 50 mg [place] 50 mg 2-04 by mouth ity of tablet 19:18: at [place] [address] bedtime. Medical Branch levETIRAcet Yes 500mg Take 500 U nivers am 500 mg 2-04 mg by ity of tablet 19:18: mouth 2 [place] 35 (two) Medical times Branch daily. fluoxetine Yes Take by Univ ers HCl (PROZAC 2-04 mouth. ity of ORAL) 19:18: [place] [address] Medical Branch gabapentin Yes Take by Univ ers ER 300 mg 2-04 mouth ity of tablet, 19:18: daily. [place] extended 35 Medical release 24 Branch hr proMETHazin Yes 12.5mg Take 12.5 Univers e 25 mg 2-04 mg by ity of tablet 19:18: mouth [place] [address] every 6 Medical (six) Branch hours as needed. prazosin 1 0 Yes 1mg Take 1 mg Un [place] mg capsule 2-04 by mouth ity o f 19:18: at [place] [address] bedtime. Medical Branch traZODone 0 Yes 50mg Take 50 mg [place] 50 mg 2-04 by mouth ity of tablet 19:18: at [place] [address] bedtime. Medical Branch levETIRAcet Yes 500mg Take 500 U nivers am 500 mg 2-04 mg by ity of tablet 19:18: mouth 2 [place] [address] (two) Medical times Branch daily. fluoxetine Yes Take by Univ ers HCl (PROZAC 2-04 mouth. ity of ORAL) 19:18: [place] [address] Medical Branch gabapentin Yes Take by Univ ers ER 300 mg 2-04 mouth ity of tablet, 19:18: daily. [place] extended Medical release 24 Branch hr proMETHazin Yes 12.5mg Take 12.5 Univers e 25 mg 2-04 mg by ity of tablet 19:18: mouth [place] [address] every 6 Medical (six) Branch hours as needed. prazosin 1 Yes 1mg Take 1 mg [place] mg capsule 2-04 by mouth ity o f 19:18: at [place] [address] bedtime. Medical Branch traZODone Yes 50mg Take 50 mg [place] 50 mg 2-04 by mouth ity of tablet 19:18: at [place] [address] bedtime. Medical Branch levETIRAcet Yes 500mg Take 500 U nivers am 500 mg 2-04 mg by ity of tablet 19:18: mouth 2 [place] 35 (two) Medical times Branch daily. fluoxetine 0 Yes Take by Univ ers HCl (PROZAC 2-04 mouth. ity of ORAL) 19:18: [place] [address] Medical Branch gabapentin 0 Yes Take by Univ ers ER 300 mg 2-04 mouth ity of tablet, 19:18: daily. [place] extended 35 Medical release 24 Branch hr proMETHazin Yes 12.5mg Take 12.5 Univers e 25 mg 2-04 mg by ity of tablet 19:18: mouth [place] [address] every 6 Medical (six) Branch hours as needed. prazosin 1 Yes 1mg Take 1 mg [place] mg capsule 2-04 by mouth ity o f 19:18: at [place] [address] bedtime. Medical Branch traZODone Yes 50mg Take 50 mg [place] 50 mg 2-04 by mouth ity of tablet 19:18: at [place] [address] bedtime. Medical Branch levETIRAcet Yes 500mg Take 500 U nivers am 500 mg 2-04 mg by ity of tablet 19:18: mouth 2 [place] 35 (two) Medical times Branch daily. alprazolam 2020- No Take by Uni vers (XANAX 2-04 02-04 mouth. ity of ORAL) 16:15: 00:00 [place] 51 :00 Medical Branch lisinopriL 2020- No 40mg Take 40 mg Univers 40 mg 2-04 02-04 by mouth ity of tablet 16:15: 00:00 daily. [place] 51 :00 Medical Branch buPROPion 2020- No 75mg Take 75 mg U nivers 75 mg 2-04 02-04 by mouth ity of tablet 16:15: 00:00 daily. [place] 51 :00 Medical Branch fluoxetine Yes Take by [facility] ers HCl (PROZAC 2-04 mouth. ity of ORAL) 13:18: [place] [address] Medical Branch gabapentin Yes Take by [facility] ers ER 300 mg 2-04 mouth ity of tablet, 13:18: daily. [facility] 35 Medical release 24 Branch hr proMETHazin Yes 12.5mg Take 12.5 Univers e 25 mg 2-04 mg by ity of tablet 13:18: mouth [place] [address] every 6 Medical (six) Branch hours as needed. prazosin 1 Yes 1mg Take 1 mg Un jennie mg capsule 2-04 by mouth ity o f 13:18: at [place] [address] bedtime. Medical Branch traZODone Yes 50mg Take 50 mg Un jennie 50 mg 2-04 by mouth ity of tablet 13:18: at [place] [address] bedtime. Medical Branch levETIRAcet Yes 500mg Take 500 U nivers am 500 mg 2-04 mg by ity of tablet 13:18: mouth 2 [place] 35 (two) Medical times Branch daily. LORazepam 2 2020- Yes [id number] 10mg Take 5 Univers mg tablet 2-04 tablets by ity of 00:00: mouth 3 [place] 00 (three) Medical times Branch daily. LORazepam 2 2020- Yes [id number] 10mg Take 5 Univers mg tablet 2-04 tablets by ity of 00:00: mouth 3 [place] 00 (three) Medical times Branch daily. LORazepam 2 Yes [id number] 10mg Take 5 Univers mg tablet 2-04 tablets by ity of 00:00: mouth 3 [place] (three) Medical times Branch daily. LORazepam 2 2020- Yes [id number] 10mg Take 5 Univers mg tablet 2-04 tablets by ity of 00:00: mouth 3 [place] 00 (three) Medical times Branch daily. LORazepam 2 Yes [id number] 10mg Take 5 Univers mg tablet 2-04 tablets by ity of 00:00: mouth 3 [place] (three) Medical times Branch daily. LORazepam 2 2020- Yes [id number] 10mg Take 5 Univers mg tablet 2-04 tablets by ity of 00:00: mouth 3 [place] (three) Medical times Branch daily. LORazepam 2 Yes [id number] 10mg Take 5 Univers mg tablet 2-04 tablets by ity of 00:00: mouth 3 [place] 00 (three) Medical times Branch daily. LORazepam 2 2021- No [id number] 10mg Take 5 Univers mg tablet 2-04 04-16 tablets by ity of 00:00: 00:00 mouth 3 [place] 00 :00 (three) Medical times Branch daily. lisinopriL 2020- No 2.5mg 2.5 mg, Un jennie (PRINIVIL,Z 2 02-04 Oral, ity of ESTRIL) 15:00: 14:41 DAILY, [...] 1 [place] mg 00 :00 dose, [facility] 10/27/20 at Branch 0145, Routine LORazepam [...] dose, Sat Medica l mL) 10/26/20 at [place] injection 1045, 80 mL Routine LORazepam 2020- No 5mg 5 mg, Univer s (ATIVAN) 10-26 Oral, QID, ity of tablet 5 mg 02:00: 21:27 First dose [place] 00 :00 on Sat [facility] 10/25/20 at Branch 2000, Until Discontinu ed, Routine diazePAM 2020- No 20mg 20 mg, Univer s (VALIUM) 10-21 Oral, TID, ity of tablet 20 21:15: 00:23 First dose [place] mg 00 :49 on Sat10/21/20 at Branch 1515, Until Discontinu ed, Routine thiamine 2021-0 Yes 100mg 100 mg, Unive rs (VITAMIN [...] Sat Medi srinivasa (4 %) 10/21/20 at [place] infusion 2 0815, g Routine labetaloL No 20mg 20 mg, Unive rs (NORMODYNE) 10-21 Slow IV ity of injection 13:17: 13:09 Push, [place] 20 mg 39 :07 Q4HPRN, Medical Starting Branch Sat10/21/20 at 0717, Until 11/02/20 at 0709, Routine, SBP&gt ;160 and or [...] Medical (after Branch last modificati on) on Sat10/20/20 at 2000, Until Discontinu ed, Routine diazePAM [...] :01 CONTINUOUS Medic al , Starting Branch [facility] 10/19/20 at 2030, Until [place] 10/20/20 at [...] 1 [place] gram/50 mL 00 :00 dose, [facility] Medi srinivasa (4 %) 10/19/20 at Branch infusion 2 0530, g Routine LORazepam 2020- No 1mg 1 mg, Slow U nivers (ATIVAN) 10-19 IV Push, ity of injection 1 10:30: 09:37 ONCE, 1 [place] mg 00 :00 dose, [facility] Medical 10/19/20 at Branch 0430, Routine gadoteridol [...] :42 CONTINUOUS Medic al , Starting Branch [facility] 10/18/20 at 1115, Until [facility] 10/19/20 at 2023, Routine NaCl 0.9% Yes 10mL 10 mL, Univer s (NS) 112 Slow IV ity of injection 15:58: Push, PRN, [place] 10 mL 41 Starting Medical [facility] 10/18/20 at 0958, Until Discontinu ed, Routine, line maintenanc e lidocaine Yes 5mL 5 mL, Univers 1% (PF) 10-18 Subcutaneo ity of (XYLOCAINE) 15:58: us, PRN, [place] injection 5 41 Starting Medi srinivasa mL [facility] 10/18/20 at 0958, Until Discontinu ed, Routine, Local anesthesia KCL No 40meq 40 mEq, IV Unive rs (POTASSIUM 10-18 Piggyback, it y of CHLORIDE) 12:35: 14:17 ONCE, 1 [place] 40 mEq in 00 :00 dose, Tue Medic al NaCl 0.9% 10/18/20 at [facility] ch (NS) 0645, 250 piggyback mL diazePAM 2020- No 10mg 10 mg, Univer s (VALIUM) 10-18 Intravenou ity of injection 02:00: 20:07 s, BID, [place] 10 mg 00 :20 First dose Medical (after Branch last modificati on) on 10/17/20 at 2000, Until Discontinu ed, Routine immune 2021-0 2021- No 2g/kg 90 g Univers globulin IV [...] is
Facu lty Requesting Approval: JOEY DOMÍNGUEZ S haloperidol 2020- No 2mg 2 mg, Univ [...] dose, Mon Medica l mL) 10/17/20 at [place] injection 1000, 100 mL Routine NaCl 0.9% 2020- No 1000mL at 125 Uni vers (NS) IV 10-17 mL/hr, IV ity of infusion 15:45: 17:06 Infusion, [place] as 1,000 mL 00 :41 CONTINUOUS Medic al , Starting Branch [facility] 10/17/20 at 0945, Until Sat10/18/20 at 1106, [...] :56 CONTINUOUS Medic al , Starting Branch Sat10/17/20 at 0730, Until Sat10/17/20 at 0936, Routine LORazepam No 1mg 1 mg, Slow U nivers (ATIVAN) 10-17 IV Push, ity of injection 1 08:15: 07:13 ONCE, 1 [place] mg 00 :00 dose, [facility] Medical 10/17/20 at Branch 0215, Routine haloperidol No 1mg 1 mg, Slow Univers lactate 10-17 IV Push, ity of (HALDOL) 03:45: 06:27 ONCE, 1 [place] injection 1 00 :00 dose, [facility] mg 10/16/20 at Branch 2145, Routine diazePAM No 5mg 5 mg, Univers (VALIUM) 10-17 [...] Bran ch piggyback (after last reorder) on Sat10/16/20 at 1015, Last dose on Sat10/19/20 at [...] Sat Medic al NaCl 0.9% 10/15/20 at [facility] h (NS) 1830, 250 piggyback mL lisinopriL 2020- No 40mg 40 mg, Univ ers (PRINIVIL,Z 10-15 Oral, ity of ESTRIL) 15:00: 13:46 DAILY, [place] tablet 40 00 :08 First dose Medi srinivasa mg on [facility] Branch 10/15/20 at 0900, Until Discontinu ed, Routine KCL 2020- No 40meq 40 mEq, IV Unive rs (POTASSIUM 10-15 Piggyback, it y of CHLORIDE) 13:45: 14:17 ONCE, 1 [place] 40 mEq in 00 :00 dose, Sat Medic al NaCl 0.9% 10/15/20 at [facility] h (NS) 0745, 250 piggyback mL magnesium 2020- No 4g 4 g, IV Univ ers sulfate in 10-15 Piggyback, it y of water 4 13:45: 14:14 ONCE, 1 [place] gram/50 mL 00 :00 dose, Sat Medi srinivasa (8 %) IV 10/15/20 at Branch Piggyback 4 0745, g Routine KCL No 40meq 40 mEq, IV Unive rs (POTASSIUM 10-14 Piggyback, it y of CHLORIDE) 23:45: 03:11 ONCE, 1 [place] 40 mEq in 00 :00 dose, Fri Medic al NaCl 0.9% 10/14/20 at [facility] h (NS) 1745, 250 piggyback mL diazePAM [...] 00 on Sat Medical [id number] 10/14/20 at [facility] mg packet 1 0800, Packet Until Discontinu ed, Routine KCL 2020- No 40meq 40 mEq, IV Unive rs (POTASSIUM 10-14- Piggyback, it y of CHLORIDE) 12:45: 00:59 [...] , Starting Branch Sat10/13/20 at 1900, Until 10/17/20 at 0716, Routine KCL No 40meq 40 mEq, IV Unive rs (POTASSIUM 10-14- Piggyback, it y of CHLORIDE) 01:00: 12:59 [...] PRN - SEE [place] mg 00 [facility] Medical NS, 1 Branch dose, Starting [place] 10/13/20 at 1315, Until Discontinu ed, Routine, Lorazepam Challenge for Catatonia LORazepam 2020- No 2mg 2 mg, Slow U nivers (ATIVAN) 10-13 IV Push, ity of injection 2 19:15: 19:12 ONCE, 1 [place] mg 00 :00 dose, [facility] Medical 10/13/20 at Branch 1315, Routine [...] 1 [place] gram/50 mL 00 :00 dose, [facility] Medi srinivasa (8 %) IV 10/13/20 at [place] Piggyback 4 0900, g Routine thiamine 2020- [...] s 40 mEq in 00 :00 dose, [facility] Medic al NaCl 0.9% 10/13/20 at [facility] h (NS) 0715, 250 piggyback mL acetaminoph Yes 650mg 650 mg, Un jennie en 10-13 Oral, ity of (TYLENOL) 08:13: Q6HPRN, [place] tablet 650 16 Starting Medic al mg [place] 10/13/20 Branch at 0213, Until Discontinu ed, Routine, Pain (scale 4-6) docusate Yes 100mg 100 mg, Unive rs (COLACE) 10-13 Oral, ity of capsule 100 08:13: QDAILYPRN, [place] mg 16 Starting Medical [place] 10/13/20 Branch at 0213, Until Discontinu ed, Routine, Constipati on fosphenytoi 2020- No 900mg{p 900 mg PE, Univers n (CEREBYX) 10-13 henytoi IV ity of 900 mg PE 03:15: 03:07 n'equiv Piggyback, [place] in NaCl 00 :00 alent} ONCE, 1 Medical 0.9% (NS) dose, [facility] Bran h piggyback 10/12/20 at 2115, 100 mL diazePAM 2020- No 2mg 2 mg, Slow Un jennie (VALIUM) 10-12 IV Push, ity of injection 2 16:45: 15:34 ONCE, 1 [place] mg 00 :00 dose, [facility] 10/12/20 at Branch 1045, STAT diazePAM 2020- No 2mg 2 mg, Slow Un jennie (VALIUM) 10-12 IV Push, ity of injection 2 10:38: 10:40 ONCE, 1 [place] mg 00 :00 dose, [facility] 10/12/20 at Branch 0445, STAT D5W 0.45% 2020- No 1000mL at 125 Uni vers NaCl 10-12 mL/hr, ity of (1/2NS) IV 07:30: 23:47 [...] 2 mg, Slow Un jennie (VALIUM) 10-12 0106 IV Push, ity of injection 2 05:45: 04:59 ONCE, 1 [place] mg 00 :00 dose, Tue Medical 10/11/20 at Branch 2345, STAT NaCl 0.9% 2020- No 1000mL at 999 Uni vers (NS) bolus 10-1206 mL/hr, ity of infusion 03:45: 06:10 1,000 mL, [place] as 1,000 mL 00 :00 IV Medical Infusion, Branch ONCE, 1 dose, 10/11/20 at 2145, STAT ALPRAZolam Yes 2mg Q24H Take 2 mg Me thodi (XANAX) 2 9-[address] MG tablet 15:47: daily as [facility] 49 needed for l anxiety. acetaminoph 2019- No 1{tbl} 1 tablet, Univers en-codeine -04 04-29 Oral, ity of (TYLENOL 16:00: 14:55 ONCE, 1 [place] #3) 300-30 00 :00 dose, Mon Medi srinivasa mg tablet 1 04/04/[address] [facility] tablet 1100, WILFREDO acetaminoph Yes [id number] 1{tbl} Take 1 Univers en-codeine -29 tablet by ity of (TYLENOL-CO 00:00: mouth [place] DEINE #3) 00 every 4 Medical 300-30 mg (four) Branch tablet hours as needed for Pain (scale 1-3). acetaminoph 2020- No [id number] 1{tbl} Take 1 Univers en-codeine 6-29 02-04 [...] Medical 06/08/19 Branch at 1245, WILFREDO maalox:diph 2019- No 15mL 15 mL, Uni vers [...] IV Medical Infusion, Branch ONCE, 1 dose, [facility] 06/08/19 at 1030, WIL[place]ED[place] fluoxetine Yes Take by [facility] ers HCl (PROZAC 9-02 mouth. ity of ORAL) 14:52: [address] alprazolam Yes Take by [facility] ers (XANAX 9-02 mouth. ity of ORAL) 14:52: [address] fluoxetine Yes Take by [facility] ers HCl (PROZAC 9-02 mouth. ity of ORAL) 14:52: [address] alprazolam Yes Take by Univ ers (XANAX 9-02 mouth. ity of ORAL) 14:52: [address] fluoxetine Yes Take by [facility] ers HCl (PROZAC 9-02 mouth. ity of ORAL) 14:52: [address] alprazolam Yes Take by Univ ers (XANAX 9-02 mouth. ity of ORAL) 14:52: [address] fluoxetine Yes Take by [facility] ers HCl (PROZAC 9-02 mouth. ity of ORAL) 14:52: [address] alprazolam Yes Take by Univ ers (XANAX 9-02 mouth. ity of ORAL) 14:52: [address] Bentyl 10 2011- Yes Horacio 10 mg, 5 Me moria mg/5 mL 5-10 Colin Boss ml, PO, l oral syrup 17:45: QID, 280 Her alcantar 43 ml, Substituti on Allowed, SYRP Bentyl 10 2011-0 Yes Horacio 10 mg, 5 Me moria mg/5 mL 5-10 Colin Boss ml, PO, l oral syrup 17:45: QID, 280 Her alcantar 43 ml, Substituti on Allowed, SYRP Bentyl 10 0 Yes Horacio 10 mg, 5 Me moria mg/5 mL 5-10 Colin Boss ml, PO, l oral syrup 17:45: QID, 280 Her alcantar 43 ml, Substituti on Allowed, SYRP Bentyl 10 Yes Horacio 10 mg, 5 Me moria mg/5 mL 5-10 Colin Boss ml, PO, l oral syrup 17:45: QID, 280 Her alcantar 43 ml, Substituti on Allowed, SYRP Bentyl 10 0 Yes Horacio 10 mg, 5 Me moria mg/5 mL 5-10 Colin Boss ml, PO, l oral syrup 17:45: QID, 280 Her alcantar 43 ml, Substituti on Allowed, SYRP Dilaudid 0 No Horacio 1 mg, 0.5 Me moria 5-10 Colin Boss mL, Route: l 16:37: IV, Drug [place] 00 form: INJ, ONCE, Start date: 02/14/12 11:37:00, Stop date: 02/14/12 11:37:00 Dilaudid 0 No Horacio 1 mg, 0.5 Me moria 5-10 Colin Boss mL, Route: l 16:37: IV, Drug [place] 00 form: INJ, ONCE, Start date: 02/14/12 11:37:00, Stop date: 02/14/12 11:37:00 Dilaudid 2011-0 No Horacio 1 mg, 0.5 Me moria 5-10 Colin Boss mL, Route: l 16:37: IV, Drug [place] 00 form: INJ, ONCE, Start date: 02/14/12 11:37:00, Stop date: 02/14/12 11:37:00 Dilaudid 2011-0 No Horacio 1 mg, 0.5 Me moria 5-10 Colin Boss mL, Route: l 16:37: IV, Drug [place] 00 form: INJ, ONCE, Start date: 02/14/12 11:37:00, Stop date: 02/14/12 11:37:00 Dilaudid 2012-0 No Horacio 1 mg, 0.5 Me moria 5-10 Colin Boss mL, Route: l 16:37: IV, Drug [place] 00 form: INJ, ONCE, Start date: 02/14/12 11:37:00, Stop date: 02/14/12 11:37:00 morphine 2011-0 No Horacio 4 mg, 1 Brian kyle Sulfate 5-10 Colin Boss mL, Route: l 15:33: IVP, Drug [place] 00 form: INJ, ONCE, Priority: STAT, Start date: 02/14/12 10:33:00, Stop date: 02/14/12 10:33:00 morphine 2012-0 No Horacio 4 mg, 1 Brian kyle Sulfate 5-10 Colin Boss mL, Route: l 15:33: IVP, Drug [place] 00 form: INJ, ONCE, Priority: STAT, Start date: 02/14/12 10:33:00, Stop date: 02/14/12 10:33:00 morphine 2012-0 No Horacio 4 mg, 1 Brian kyle Sulfate 5-10 Colin Boss mL, Route: l 15:33: IVP, Drug [place] 00 form: INJ, ONCE, Priority: STAT, Start date: 02/14/12 10:33:00, Stop date: 02/14/12 10:33:00 morphine 2012-0 No Horacio 4 mg, 1 Brian kyle Sulfate 5-10 Colin Boss mL, Route: l 15:33: IVP, Drug [place] 00 form: INJ, ONCE, Priority: STAT, Start date: 02/14/12 10:33:00, Stop date: 02/14/12 10:33:00 morphine 2012-0 No Horacio 4 mg, 1 Brian kyle Sulfate 5-10 Colin Boss mL, Route: l 15:33: IVP, Drug [place] 00 form: INJ, ONCE, Priority: STAT, Start date: 02/14/12 10:33:00, Stop date: 05/10/12 10:33:00 Zofran 2011-0 No Horacio 4 mg, Memoria 5-10 Colin Boss Route: l 15:25: IVP, Drug [place] 00 form: INJ, ONCE, Priority: STAT, Start date: 02/14/12 10:25:00, Stop date: 02/14/12 10:25:00 Zofran 2011-0 No [place] 4 mg, Memoria 5-10 Colin Boss Route: l 15:25: IVP, Drug [place] 00 form: INJ, ONCE, Priority: STAT, Start date: 02/14/12 10:25:00, Stop date: 02/14/12 10:25:00 Zofran 2011-0 No [place] 4 mg, Memoria 5-10 Colin Boss Route: l 15:25: IVP, Drug [place] 00 form: INJ, ONCE, Priority: STAT, Start date: 02/14/12 10:25:00, Stop date: 02/14/12 10:25:00 Zofran 2011-0 No [place] 4 mg, Memoria 5-10 Colin Boss Route: l 15:25: IVP, Drug [place] 00 form: INJ, ONCE, Priority: STAT, Start date: 02/14/12 10:25:00, Stop date: 02/14/12 10:25:00 Zofran 2011-0 No Horacio 4 mg, Memoria 5-10 Colin Boss Route: l 15:25: IVP, Drug [place] 00 form: INJ, ONCE, Priority: STAT, Start date: 02/14/12 10:25:00, Stop date: 02/14/12 10:25:00 morphine 2011-0 No Horacio 4 mg, Memori a Sulfate 5-10 Colin Boss Route: l 14:16: IVP, ONCE, [place] 00 Priority: STAT, Start date: 02/14/12 9:16:00, Stop date: 02/14/12 9:16:00 morphine 2011-0 No Horacio 4 mg, Memori a Sulfate 5-10 Colin Boss Route: l 14:16: IVP, ONCE, John 00 Priority: STAT, Start date: 02/14/12 9:16:00, Stop date: 02/14/12 9:16:00 morphine 2012-0 No Horacio 4 mg, Memori a Sulfate 5-10 Colin Boss Route: l 14:16: IVP, ONCE, [place] 00 Priority: STAT, Start date: 02/14/12 9:16:00, Stop date: 02/14/12 9:16:00 morphine 2012-0 No Horacio 4 mg, Memori a Sulfate 5-10 Colin Boss Route: l 14:16: IVP, ONCE, [place] 00 Priority: STAT, Start date: 02/14/12 9:16:00, Stop date: 02/14/12 9:16:00 morphine 2012-0 No Hor[place] 4 mg, Memori a Sulfate 5-10 Colin Boss Route: l 14:16: IVP, ONCE, John 00 Priority: STAT, Start date: 02/14/12 9:16:00, Stop date: 02/14/12 9:16:00 ketorolac 2012-0 No Horacio 30 mg, 1 Me moria 5-10 Colin Boss mL, Route: l 13:54: IVP, Drug [place] 00 form: INJ, ONCE, Priority: STAT, Start date: 02/14/12 8:54:00, Stop date: 02/14/12 8:54:00 Zofran 2012-0 No Horacio 4 mg, 2 Memori a 5-10 Colin Boss mL, Route: l 13:54: IVP, Drug [place] 00 form: INJ, ONCE, Priority: STAT, Start date: 02/14/12 8:54:00, Stop date: 02/14/12 8:54:00 ketorolac 2012-0 No Horacio 30 mg, 1 Me moria 5-10 Colin Boss mL, Route: l 13:54: IVP, Drug [place] 00 form: INJ, ONCE, Priority: STAT, Start date: 02/14/12 8:54:00, Stop date: 02/14/12 8:54:00 Zofran 2012-0 No Horacio 4 mg, 2 Memori a 5-10 Colin Boss mL, Route: l 13:54: IVP, Drug [place] 00 form: INJ, ONCE, Priority: STAT, Start date: 02/14/12 8:54:00, Stop date: 02/14/12 8:54:00 ketorolac 2012-0 No Horacio 30 mg, 1 Me moria 5-10 Colin Boss mL, Route: l 13:54: IVP, Drug [place] 00 form: INJ, ONCE, Priority: STAT, Start date: 02/14/12 8:54:00, Stop date: 02/14/12 8:54:00 Zofran 2011-0 No Horacio 4 mg, 2 Memori a 5-10 Colin Boss mL, Route: l 13:54: IVP, Drug [place] 00 form: INJ, ONCE, Priority: STAT, Start date: 02/14/12 8:54:00, Stop date: 02/14/12 8:54:00 ketorolac 2012-0 No Horacio 30 mg, 1 Me moria 5-10 Colin Boss mL, Route: l 13:54: IVP, Drug [place] 00 form: INJ, ONCE, Priority: STAT, Start date: 02/14/12 8:54:00, Stop date: 02/14/12 8:54:00 Zofran 2011-0 No Horacio 4 mg, 2 Memori a 5-10 Colin Boss mL, Route: l 13:54: IVP, Drug [place] 00 form: INJ, ONCE, Priority: STAT, Start date: 02/14/12 8:54:00, Stop date: 02/14/12 8:54:00 ketorolac 2011-0 No Horacio 30 mg, 1 Me moria 5-10 Colin Boss mL, Route: l 13:54: IVP, Drug [place] 00 form: INJ, ONCE, Priority: STAT, Start date: 02/14/12 8:54:00, Stop date: 02/14/12 8:54:00 Zofran 2012-0 No Horacio 4 mg, 2 Memori a 5-10 Colin Boss mL, Route: l 13:54: IVP, Drug [place] 00 form: INJ, ONCE, Priority: STAT, Start date: 02/14/12 8:54:00, Stop date: 02/14/12 8:54:00 Restoril 30 2011-0 Yes Substituti Memoria mg oral 5-10 on Allowed l capsule 12:42: John 25 Restoril 30 2011-0 Yes Substituti Memoria mg oral 5-10 on Allowed l capsule 12:42: John Cox Restoril 30 2011-0 Yes Substituti Memoria mg oral 5-10 on Allowed l capsule 12:42: John Cox Restoril 30 2011-0 Yes Substituti Memoria mg oral 5-10 on Allowed l capsule 12:42: John Cox Restoril 30 2011-0 Yes Substituti Memoria mg oral 5-10 on Allowed l capsule 12:42: John Cox Restoril 30 2011-0 Yes Substituti Memoria mg oral 5-10 on Allowed l capsule 12:42: John Cox Atarax 25 2011-0 Yes Substituti Me moria mg oral tab 5-10 on Allowed l 12:42: John Callerax 25 2011-0 Yes Substituti Me moria mg oral tab 5-10 on Allowed l 12:42: John Callerax 25 2011-0 Yes Substituti Me moria mg oral tab 5-10 on Allowed l 12:42: John Stewart Atarax 25 2011- Yes Substituti Me moria mg oral tab 5-10 on Allowed l 12:42: John Stewart Atarax 25 2011-0 Yes Substituti Me moria mg oral tab 5-10 on Allowed l 12:42: John Stewart Atarax 25 2011- Yes Substituti Me moria mg oral tab 5-10 on Allowed l 12:42: John Nicholson Yes Substituti Memori a 10/325 oral 5-10 on l tablet 12:42: Allowed, John Covington Yes Substituti Memori a 10/325 oral 5-10 on l tablet 12:42: Allowed, John Covington Yes Substituti Memori a 10/325 oral 5-10 on l tablet 12:42: Allowed, John [place] Yes Substituti Memori a 10/325 oral 5-10 on l tablet 12:42: Allowed, John [place] Yes Substituti Memori a 10/325 oral 5-10 on l tablet 12:42: Allowed, John [place] 2012-0 Yes Substituti Memori a 10/325 oral 5-10 on l tablet 12:42: AllowedJohn 2011-0 Yes Substituti Mem oria 5-10 on Allowed l 12:41: John Ware Klonopin 2011-0 Yes Substituti Mem oria 5-10 on Allowed l 12:41: John Ware Klonopin 2011-0 Yes Substituti Mem oria 5-10 on Allowed l 12:41: John Ware Klonopin 2011-0 Yes Substituti Mem oria 5-10 on Allowed l 12:41: John Ware Klonopin 2011-0 Yes Substituti Mem oria 5-10 on Allowed l 12:41: John Ware Klonopin 2011-0 Yes Substituti Mem oria 5-10 on Allowed l 12:41: John Ware Prozac 2011-0 Yes Substituti Memor ia 5-10 on Allowed l 12:41: John Jamil Prozac 2011-0 Yes Substituti Memor ia 5-10 on Allowed l 12:41: John Jamil Prozac 2011-0 Yes Substituti Memor ia 5-10 on Allowed l 12:41: John Jamil Prozac 2011-0 Yes Substituti Memor ia 5-10 on Allowed l 12:41: John Jamil Prozac 2011-0 Yes Substituti Memor ia 5-10 on Allowed l 12:41: John Jamil Prozac 2011-0 Yes Substituti Memor ia 5-10 on Allowed l 12:41: John Jamil No known No Univers medications ity of [facility] Immunizations Ordered Filled Immunization Date Status Comments Sour e Immunization Name Name Influenza Virus 2020-05-18 Completed Universit y of Vaccine [place] .5 mL 00:00:00 [facility] 6+ MO Branch Influenza Virus 2020-05-18 Completed Universit y of Vaccine [place] .5 mL 00:00:00 [facility] IM 6+ MO Branch Influenza Virus 2020-05-18 Completed Universit y of Vaccine Quad .5 mL 00:00:00 [facility] IM 6+ MO Branch Influenza Virus 2020-05-18 Completed Universit y of Vaccine Quad .5 mL 00:00:00 [facility] 6+ MO Branch Influenza Virus 2020-05-18 Completed Universit y of Vaccine Quad .5 mL 00:00:00 [place] [facility] IM 6+ MO Branch Influenza Virus 2020-05-18 Completed Universit y of Vaccine Quad .5 mL 00:00:00 [place] [facility] IM 6+ MO Branch Influenza Virus 2020-05-18 Completed Universit y of Vaccine Quad .5 mL 00:00:00 [place] [facility] IM 6+ MO Branch Influenza Virus 2020-05-18 Completed Universit y of Vaccine Quad .5 mL 00:00:00 [place] [facility] IM 6+ MO Branch Influenza Virus 2020-05-18 Completed Universit y of Vaccine Quad .5 mL 00:00:00 [place] [facility] IM 6+ MO Branch Influenza Virus 2020-05-18 Completed Universit y of Vaccine Quad .5 mL 00:00:00 [place] [facility] IM 6+ MO Branch Influenza Virus 2020-05-18 Completed Universit y of Vaccine Quad .5 mL 00:00:00 [place] [facility] IM 6+ MO Branch Influenza Virus 2020-05-18 Completed Universit y of Vaccine Quad .5 mL 00:00:00 [place] [facility] IM 6+ MO Branch Influenza Virus 2020-05-18 Completed Universit y of Vaccine Quad .5 mL 00:00:00 [place] [facility] IM 6+ MO Branch Influenza Virus 2020-05-18 Completed Universit y of Vaccine Quad .5 mL 00:00:00 [place] [facility] IM 6+ MO Branch Influenza Virus 2020-05-18 Completed Universit y of Vaccine Quad .5 mL 00:00:00 [place] [facility] 6+ MO Branch Influenza Virus 2020-05-18 Completed Universit y of Vaccine Quad .5 mL 00:00:00 [place] [facility] 6+ MO Branch Influenza Virus 2020-05-18 Completed Universit y of Vaccine Quad .5 mL 00:00:00 [place] [facility] 6+ MO Branch Vital Signs Vital Name Observation Time Observation Value Comments Source Height 2022-12-06 11:35:00 167.64 CM Weight 2022-12-06 11:35:00 49.89 KG Systolic blood 2022-08-25 01:13:00 163 mm[Hg] Univer sity of pressure [facility] Diastolic blood 2022-08-25 01:13:00 88 mm[Hg] Unive rsity of pressure [facility] Heart rate 2022-08-25 01:13:00 88 /min Universi ty of [facility] Body temperature 2022-08-25 01:13:00 36.44 Susan Univ ersity of [place] [facility] Oxygen saturation in 2022-08-25 01:13:00 97 /min University of Arterial blood by [place] [facility]i srinivasa Pulse oximetry Branch Respiratory rate 2022-08-24 21:00:00 18 /min Univ ersity [facility] [place] [facility] Body weight 2022-08-23 18:00:00 38.964 kg [facility] [place] [facility] BMI 2022-08-23 18:00:00 13.86 kg/m2 [facility] [place] [facility] Body height 2022-08-19 00:43:00 167.6 cm [facility] [place] [facility] Diastolic blood 2022-08-05 20:34:00 95 mm[Hg] Unive rsity of pressure [place] [facility] Heart rate 2022-08-05 20:34:00 88 /min [facility] [place] [facility] Body temperature 2022-08-05 20:34:00 36.39 Susan Univ [facility] [place] [facility] Respiratory rate 2022-08-05 20:34:00 16 /min Univ ersity [facility] [place] [facility] Oxygen saturation in 2022-08-05 20:34:00 99 /min University of Arterial blood by [place] [facility]i [facility] Systolic blood 2022-08-05 20:34:00 163 mm[Hg] [facility] Body weight 2022-08-05 09:31:00 45.995 kg [facility] BMI 2022-08-05 09:31:00 16.37 kg/m2 [facility] Body height 2022-08-03 22:31:00 167.6 cm [facility] Heart rate 2022-07-30 08:00:00 89 /min [facility] Respiratory rate 2022-07-30 08:00:00 13 /min [facility] Systolic blood 2022-07-30 06:00:00 142 mm[Hg] [facility] Diastolic blood 2022-07-30 06:00:00 86 mm[Hg] [facility] Oxygen saturation in 2022-07-30 06:00:00 80 /min [facility] Arterial blood by [place] [facility] P[facility] oxim[facility] Body weight 2022-07-30 03:33:00 41.731 kg [facility] BMI 2022-07-30 03:33:00 15.31 kg/m2 [facility] Systolic blood 2022-02-01 20:17:00 141 mm[Hg] Univer sity of [facility] Diastolic blood 2022-02-01 20:17:00 82 mm[Hg] Unive rsity of [facility] Heart rate 2022-02-01 20:17:00 83 /min [facility] Body temperature 2022-02-01 20:17:00 37.06 Susan [facility] Respiratory rate 2022-02-01 20:17:00 18 /min [facility] Oxygen saturation in 2022-02-01 20:17:00 99 /min [facility] Arterial blood by [place] [employer] Pulse oximetry [facility] Body height 2022-01-22 17:23:00 165.1 cm [facility] Body weight 2022-01-22 17:23:00 41.731 kg [facility] BMI 2022-01-22 17:23:00 15.31 kg/m2 [facility] Systolic blood 2022-01-20 13:00:00 135 mm[Hg] Univer [facility]ity [facility] Diastolic blood 2022-01-20 13:00:00 90 mm[Hg] Unive rsity of [facility] Heart rate 2022-01-20 13:00:00 84 /min [facility] Body temperature 2022-01-20 12:00:00 36.67 Susan [facility] Respiratory rate 2022-01-20 12:00:00 16 /min [facility] Oxygen saturation in 2022-01-20 12:00:00 93 /min [facility] Arterial blood by [place] [employer] P[facility] oxim[facility] Body weight 2022-01-19 09:50:00 48.5 kg [facility] BMI 2022-01-19 09:50:00 19.56 kg/m2 [facility] Body height 2022-01-17 01:34:00 157.5 cm [facility] Systolic blood 2020-11-10 13:25:00 98 mm[Hg] Univer [facility] Diastolic blood 2020-11-10 13:25:00 60 mm[Hg] Unive rsity of [facility] Heart rate 2020-11-10 13:25:00 81 /min [facility] Body temperature 2020-11-10 13:25:00 36.28 Susan [facility] Respiratory rate 2020-11-10 13:25:00 18 /min [facility] Oxygen saturation in 2020-11-10 13:25:00 98 /min [facility] Arterial blood by [employer] Pulse oximetry [facility] Body weight 2020-11-07 20:45:00 43.999 kg [facility] BMI 2020-11-07 20:45:00 16.14 kg/m2 [facility] [place] [facility] [place] Body height 2020-10-17 17:36:00 165.1 cm [facility] Systolic blood 2020-04-04 14:40:00 149 mm[Hg] [facility]iver [facility] Diastolic blood 2020-04-04 14:40:00 85 mm[Hg] Unive rsity of [facility] Heart rate 2020-04-04 14:40:00 88 /min [facility] Body temperature 2020-04-04 14:40:00 36.89 Susan [facility] Respiratory rate 2020-04-04 14:40:00 18 /min [facility] Body weight 2020-04-04 14:40:00 68.04 kg [facility] [place] [facility] [place] Oxygen saturation in 2020-04-04 14:40:00 97 /min [facility] Arterial blood by [employer] P[facility] oxim[facility] Branch Systolic blood 2019-06-08 16:00:00 163 mm[Hg] Univer sity [facility] Diastolic blood 2019-06-08 16:00:00 88 mm[Hg] Unive rsity of [facility] Heart rate 2019-06-08 16:00:00 64 /min [facility] Respiratory rate 2019-06-08 16:00:00 17 /min [facility] Oxygen saturation in 2019-06-08 16:00:00 100 /min [facility] Arterial blood by [facility] Pulse oximetry Branch Body temperature 2019-06-08 14:46:00 36.89 Susan Univ ersity of [facility] Body weight 2019-06-08 14:44:00 43.092 kg Universi ty of [facility] Weight 2012-02-14 12:29:00 [facility] Height 2012-02-14 12:29:00 170.18 cm [facility] Procedures Procedure Date / Time Performing Clinician Source Performed REPL R HIP JNT FEMR METL 2022-12-04 [facility] 00:00:00 [place] BASIC METABOLIC PANEL (NA, 2022-08-23 Ronnie Abarca [facility] rsity of K, CL, CO2, GLUCOSE, BUN, 18:39:00 [place] [facility] [place]INE[place]) Branch POCT GLUCOSE (AUTOMATED) 2022-08-23 Destinee Casanova [facility] sity of 13:23:00 [facility] BASIC METABOLIC PANEL (NA, 2022-08-22 Ronnie Abarca [facility] rsity of K, CL, CO2, GLUCOSE, BUN, 10:23:00 [place] [facility] [place]INE[place]) Branch AUTHORIZATION FOR RELEASE OF 2022-08-22 Doctor Unassigned, [facility] 06:01:00 Name [facility] POCT GLUCOSE (AUTOMATED) 2022-08-22 Destinee Casanova [facility] sity of 02:24:00 [facility] XR KUB 2022-08-21 [facility] 22:49:00 [facility] BASIC METABOLIC PANEL (NA, 2022-08-21 Ronnie Abarca [facility] rsity of K, CL, CO2, GLUCOSE, BUN, 09:47:00 [facility] [place]) Branch MAGNESIUM 2022-08-20 [facility] of 11:33:00 [facility] BASIC METABOLIC PANEL (NA, 2022-08-20 [facility] ersity of K, CL, CO2, GLUCOSE, BUN, 11:33:00 [place] [facility] CREAT[place]INE[place]) Branch CBC WITH DIFF 2022-08-20 [facility] of 11:33:00 [facility] BASIC METABOLIC PANEL (NA, 2022-08-19 [facility] ersity of K, CL, CO2, GLUCOSE, BUN, 19:28:00 [facility] CREATININE, [place]) Branch MAGNESIUM 2022-08-19 [facility] of 11:48:00 [facility] CORTISOL AM 2022-08-19 [facility] of 11:48:00 [facility] VITAMIN B12, LEVEL 2022-08-19 [facility] o f 11:48:00 [facility] FOLATE 2022-08-19 [facility] of 11:48:00 [facility] THYROID STIMULATING HORMONE 2022-08-19 [facility] Uni versity of 11:48:00 [facility] BASIC METABOLIC PANEL (NA, 2022-08-19 [facility] Univ ersity of K, CL, CO2, GLUCOSE, BUN, 11:48:00 [facility] CREATININE, [place]) Branch CBC WITH DIFF 2022-08-19 [facility] of 11:48:00 [facility] EKG-12 LEAD 2022-08-18 Yojana Max [place] of 19:59:35 [facility] XR CHEST 1 VW 2022-08-18 Yojana Max [place] of 18:07:00 [facility] OSMOLALITY, SERUM OR PLASMA 2022-08-18 Yojana Max Uni versity of 17:56:00 [facility] OSMOLALITY URINE 2022-08-18 Yojana Max [facility] 17:56:00 [facility] AMMONIA, PLASMA 2022-08-18 Yojana Max [place] of 17:56:00 [facility] TROPONIN I 2022-08-18 Yojana Max [place] of 17:56:00 [facility] COMP. METABOLIC PANEL 2022-08-18 Yojana Max Universit y of ([id number]) 17:56:00 [facility] CBC WITH DIFF 2022-08-18 Yojana Max [place] of 17:56:00 [facility] URINALYSIS 2022-08-18 Yojana Max [place] of 17:56:00 [facility] N-TERMINAL PRO-BNP 2022-08-18 Yojana Max [place] o f 17:56:00 [facility] SODIUM, URINE RANDOM 2022-08-18 Yojana Max [facility] 17:56:00 [facility] CONSENT/REFUSAL FOR 2022-08-18 Doctor Unassigned, No Univer sity of DIAGNOSIS AND TREATMENT 17:13:53 Name [facility] Branch MAGNESIUM 2022-08-05 Ariel Reynolds of 09:52:00 [facility] BASIC METABOLIC PANEL (NA, 2022-08-05 Maggie Monsalve U niversity of K, CL, CO2, GLUCOSE, BUN, 09:52:00 [facility] CREATININE, [place]) Branch PHOSPHORUS 2022-08-04 [facility] of 10:48:00 [facility] MAGNESIUM 2022-08-04 [facility] of 10:48:00 [facility] CORTISOL AM 2022-08-04 [facility] of 10:48:00 [facility] OSMOLALITY, SERUM OR PLASMA 2022-08-04 [facility] ersity of 10:48:00 [facility] THYROID STIMULATING HORMONE 2022-08-04 Maggie Monsalve University of 10:48:00 [facility] COMP. METABOLIC PANEL 2022-08-04 [facility] of ([id number]) 10:48:00 [facility] CBC WITH DIFF 2022-08-04 [facility] of 10:48:00 [facility] N-TERMINAL PRO-BNP 2022-08-04 [facility] of 10:48:00 [facility] XR CHEST 1 VW 2022-08-04 [facility] of 10:15:00 [facility] AC PANEL 21 + LACTIC ACID 2022-08-04 [facility] sity of 05:26:00 [facility] PREALBUMIN, SERUM 2022-08-04 [facility] of 05:19:00 [facility] URIC ACID 2022-08-04 [facility] of 05:19:00 [facility] MAGNESIUM 2022-08-04 [facility] of 05:19:00 [facility] FERRITIN SERUM 2022-08-04 [facility] of 05:19:00 [facility] OSMOLALITY, SERUM OR PLASMA 2022-08-04 [facility], [facility] ersity of 05:19:00 [facility] VITAMIN B12, LEVEL 2022-08-04 [facility] of 05:19:00 [facility] LIPID PANEL ([id number])(TOTAL 2022-08-04 [facility] sity of CHOLESTEROL, TRIGLYCERIDES, 05:19:00 [facility] HDL) Branch IRON PANEL 2022-08-04 [facility], [facility] of 05:19:00 [facility] PROTHROMBIN TIME / INR 2022-08-04 [facility], [facility] y of 05:19:00 [facility] N-TERMINAL PRO-BNP 2022-08-04 [facility], [facility] of 05:19:00 [facility] VITAMIN D, 25-OH 2022-08-04 [facility], [facility] of 05:19:00 [facility] PROCALCITONIN 2022-08-04 [facility], [facility] of 05:19:00 [facility] OSMOLALITY URINE 2022-08-04 [facility], [facility] of 04:42:00 [facility] UREA NITROGEN, URINE RANDOM 2022-08-04 [facility], [facility] ersity of 04:42:00 [facility] URINE DRUG (IMMUNOASSAY) - 2022-08-04 [facility] rsity of COMPREHENSIVE DRUG SCREEN 03:15:00 [facility] CREATINE KINASE 2022-08-03 [facility] of 19:25:00 [facility] LIPASE 2022-08-03 [facility] of 19:25:00 [facility] HEPATIC FUNCTION PANEL 2022-08-03 [facility] y of ([id number]) (ALB,T.PRO,BILI 19:25:00 [facility] d[facility] T,BU/BC,ALT,AST,ALK PHOS) Branch BASIC METABOLIC PANEL (NA, 2022-08-03 [facility] rsity of K, CL, CO2, GLUCOSE, BUN, 19:25:00 [facility] CREATININE, [place]) Branch CBC WITH DIFF 2022-08-03 [facility] of 19:25:00 [facility] GLYCOSYLATED HEMOGLOBIN 2022-08-03 [facility] ty of (A1C) 19:25:00 [facility] URINALYSIS 2022-08-03 [facility] of 19:25:00 [facility] SODIUM, URINE RANDOM 2022-08-03 Willem Duff [place] of 19:25:00 [facility] PROTEIN CREAT RATIO URINE 2022-08-03 Willem Duff [facility] sity of RANDOM 19:25:00 [facility] CONSENT/REFUSAL FOR 2022-08-03 Doctor Unassigned, No Univer sity of DIAGNOSIS AND TREATMENT 18:38:27 Name [facility] CT HEAD WO CONTRAST 2022-07-30 Norberto Vasquez [facility] of 06:18:00 [facility] XR CHEST 1 VW 2022-07-30 Norberto Vasquez [facility] of 06:17:00 [facility] URINE DRUG (IMMUNOASSAY) - 2022-07-30 Norberto Vasquez [facility] ersity of COMPREHENSIVE DRUG SCREEN 04:47:00 [facility] URINALYSIS 2022-07-30 Norberto Vasquez [facility] 04:47:00 [facility] LIPASE 2022-07-30 [facility] 04:35:00 [facility] COMP. METABOLIC PANEL 2022-07-30 Norberto Vasquez Universit y of ([id number]) 04:35:00 [facility] CBC WITH DIFF 2022-07-30 Norberto Vasquez [place] of 04:35:00 [facility] XR PELVIS 3+ VW 2022-02-01 Juan [facility] of 02:12:00 [facility] MAGNESIUM 2022-01-[address] [facility] of 10:18:00 [facility] BASIC METABOLIC PANEL (NA, 2022-01-29 Neftaly Holguin [facility] rsity of K, CL, CO2, GLUCOSE, BUN, 10:18:00 [facility] CREATININE[place]) Branch CBC WITH DIFF 2022-01-29 Neftaly Holguin [place] of 10:18:00 [facility] MAGNESIUM 2022-01-27 Marybeth Turcios [place] of 10:34:00 [facility] BASIC METABOLIC PANEL (NA, 2022-01-27 [facility] K, CL, CO2, GLUCOSE, BUN, 10:34:00 [facility] CREATININE, [place]) Branch CBC WITH DIFF 2022-01-27 Marybeth Turcios [place] of 10:34:00 [facility] BLOOD CULTURE SCREEN 2022-01-26 Marybeth Turcios of 17:31:00 [facility] BLOOD CULTURE SCREEN 2022-01-26 Marybeth Turcios of 16:09:00 [facility] VITAMIN B6, PLASMA 2022-01-26 Marybeth Turcios of 09:11:00 [facility] MAGNESIUM 2022-01-25 Marybeth Turcios [place] of 08:22:00 [facility] BASIC METABOLIC PANEL (NA, 2022-01-25 Marybeth Turcios rsity of K, CL, CO2, GLUCOSE, BUN, 08:22:00 [facility] CREATININE[place]) Branch ELECTROENCEPHALOGRAM 2022-01-25 [facility] y of 00:00:00 [facility] COPPER, SERUM 2022-01-24 Marybeth Turcios [place] of 19:59:00 [facility] ZINC, SERUM 2022-01-24 Marybeth Turcios [place] of 19:59:00 [facility] CERULOPLASMIN 2022-01-24 Marybeth Turcios [place] of 19:59:00 [facility] MAGNESIUM 2022-01-24 Marybeth Turcios of 09:34:00 [facility] VITAMIN B12, LEVEL 2022-01-24 Marybeth Turcios [place] of 09:34:00 [facility] FOLATE 2022-01-24 Marybeth Turcios [place] of 09:34:00 [facility] BASIC METABOLIC PANEL (NA, 2022-01-24 Marybeth Turcios rsity of K, CL, CO2, GLUCOSE, BUN, 09:34:00 [facility] CREATININE, [place]) Branch CBC WITH DIFF 2022-01-24 Marybeth Turcios of 09:34:00 [facility] CT HEAD WO CONTRAST 2022-01-23 Kristian Hester [facility] sity of 10:26:00 [facility] HB ECG ROUTINE & RHYTHM 2022-01-23 Kristian Hester Un iversity of STRIP 02:59:29 [facility] GALV ONLY - INFLUENZA A B 2022-01-23 Kristian Hester RSV PCR 02:48:00 [facility] COVID-19 (ID NOW RAPID 2022-01-23 Kristian Hester Uni versity of TESTING) 02:48:00 [facility] LAB ONLY COVID 2022-01-23 [facility] of INTERPRETATION 02:48:00 [facility] SEDIMENTATION RATE 2022-01-23 [facility] ity of 02:45:00 [facility] VITAMIN B1 (THIAMINE), WHOLE 2022-01-23 [facility] University of BLOOD 02:45:00 [facility] XR CHEST 1 VW 2022-01-23 [facility] of 02:06:00 [facility] XR LUMBAR SPINE 2 VW 2022-01-23 [facility] rsity of 02:06:00 [facility] XR KUB 2022-01-23 [facility] of 02:06:00 [facility] XR PELVIS <3 VW 2022-01-23 [facility] 02:06:00 [facility] HB ECG ROUTINE & RHYTHM 2022-01-22 Chiqui Rosen [facility] rsity of STRIP 19:58:42 [facility] URINE CULTURE 2022-01-22 Chiqui Rosen [facility] 19:55:00 [facility] URINE DRUG (IMMUNOASSAY) - 2022-01-22 Chiqui Rosen Un iversity of COMPREHENSIVE DRUG SCREEN 19:55:00 [facility] W[facility]O [facility] Branch URINALYSIS 2022-01-22 Chiqui Rosen [facility] 19:53:00 [facility] BLOOD CULTURE SCREEN 2022-01-22 Chiqui Rosen [facility] ty of 18:01:00 [facility] MAGNESIUM 2022-01-22 Chiqui Rosen [facility] 18:01:00 [facility] TROPONIN I 2022-01-22 [facility] 18:01:00 [facility] COMP. METABOLIC PANEL 2022-01-22 Chiqui Rosen [facility] of ([id number]) 18:01:00 [facility] CBC WITH DIFF 2022-01-22 Chiqui Rosen [facility] 18:01:00 [facility] LACTIC ACID WHOLE BLOOD 2022-01-22 Chiqui Rosen [facility] rsity of 18:01:00 [facility] BLOOD CULTURE WORKUP 2022-01-22 Chiqui Rosen Universi ty of 18:01:00 [facility] BLOOD CULTURE WORKUP 2022-01-22 Chiqui Rosen Universi ty of 18:01:00 [facility] GRAM POSITIVE BLOOD 2022-01-22 Chiqui Rosen Universit y of PATHOGENS DNA PROBE-AEROBIC 18:01:00 [facility] CONSENT/REFUSAL FOR 2022-01-22 Doctor Unassigned, No Univer sity of DIAGNOSIS AND TREATMENT 17:11:50 Name [facility] HOSPITAL ADMISSION 2022-01-22 Doctor Unassigned, No Univers ity of 05:01:00 Name [facility] COMP. METABOLIC PANEL 2022-01-19 Rodrick Tomlinson [place] of ([id number]) 11:32:00 [facility] CBC WITH DIFF 2022-01-19 Rodrick Tomlinson [place] of 11:32:00 [facility] MR BRAIN WO CONTRAST 2022-01-18 Rodrick Tomlinson [place] of 17:02:05 [facility] POCT GLUCOSE (AUTOMATED) 2022-01-17 Rodrick Tomlinson [facility] ity of 21:59:00 [facility] XR KUB 2022-01-17 Ulises Aguilar [facility] of 21:21:58 [facility] ADC OR FIDE ONLY - RPR 2022-01-17 Rodrick Tomlinson [facility] sity of 20:27:00 [facility] MRSA / MSSA SCREEN BY PCR, 2022-01-17 Rodrick Tomlinson [facility] rsity of NARES 16:42:00 [facility] POCT GLUCOSE (AUTOMATED) 2022-01-17 Rodrick Tomlinson [facility] ity of 16:41:00 [facility] POCT GLUCOSE (AUTOMATED) 2022-01-17 Rodrick Tomlinson [facility] ity of 13:03:00 [facility] PHOSPHORUS 2022-01-17 Rodrick Tomlinson [place] of 09:57:00 [facility] VITAMIN B12, LEVEL 2022-01-17 Rodrick Tomlinson [place] of 09:57:00 [facility] FOLATE 2022-01-17 Rodrick Tomlinson [place] of 09:57:00 [facility] FREE T4 2022-01-17 Rodrick Tomlinson [place] of 09:57:00 [facility] ADC OR FIDE ONLY - RPR 2022-01-17 AnshuRodrick [facility] sity of 09:57:00 [facility] THYROID STIMULATING HORMONE 2022-01-17 Anshu [facility] ersity of 09:56:00 [facility] MAGNESIUM 2022-01-17 Anshu [facility] of 09:55:00 [facility] BASIC METABOLIC PANEL (NA, 2022-01-17 [facility]Rodrick [facility] rsity of K, CL, CO2, GLUCOSE, BUN, 09:55:00 [facility] CREATININE, [place]) Branch CBC WITH DIFF 2022-01-17 [facility] of 09:55:00 [facility] URINE CULTURE 2022-01-17 [facility] o f 00:05:00 [facility] COMP. METABOLIC PANEL 2022-01-16 [place], [facility] sity of ([id number]) 22:14:00 [facility] URINE DRUG (IMMUNOASSAY) - 2022-01-16 [place], [facility] niversity of COMPREHENSIVE DRUG SCREEN 21:57:00 [facility] TROPONIN I 2022-01-16 [facility] o f 21:29:00 [facility] CBC WITH DIFF 2022-01-16 [facility] o f 21:29:00 [facility] PROTHROMBIN TIME / INR 2022-01-16 [facility] rsity of 21:29:00 [facility] URINALYSIS 2022-01-16 [facility] o f 21:29:00 [facility] CT HEAD WO CONTRAST 2022-01-[address] [facility] of 21:11:19 [facility] HB ECG ROUTINE & RHYTHM 2022-01-16 [facility] ersity of STRIP 20:55:18 [facility] XR CHEST 1 VW 2022-01-16 [facility] o f 20:48:49 [facility] NOTICE OF PRIVACY PRACTICES 2022-01-16 Doctor Unassigned, N o [place] of 19:58:20 Name [facility] CONSENT/REFUSAL FOR 2022-01-16 Doctor Unassigned, No [facility] sity of DIAGNOSIS AND TREATMENT 19:57:56 Name [facility] AUTHORIZATION FOR RELEASE OF 2021-03-01 Doctor Unassigned, No University of [facility] 05:01:00 Name [facility] AUTHORIZATION FOR RELEASE OF 2021-02-16 Doctor Unassigned, No University of [facility] 05:01:00 Name [facility] EXTERNAL PROVIDER RECORDS 2020-11-22 Doctor Unassigned, No University of 06:01:00 [facility] COVID-19 (ID NOW RAPID 2020-11-10 [facility]ING) 00:27:00 [facility] XR KUB 2020-11-09 Jey Mejía [place] o f 23:36:27 [facility] BASIC METABOLIC PANEL (NA, 2020-11-09 Jey Mejía niversity of K, CL, CO2, GLUCOSE, BUN, 10:11:00 [facility] CREATININE, [place]) Branch CBC WITH DIFF 2020-11-09 Jey Mejía [place] o f 10:11:00 [facility] BASIC METABOLIC PANEL (NA, 2020-11-07 Jey Mejía niversity of K, CL, CO2, GLUCOSE, BUN, 10:05:00 [facility] CREATININE, [place]) Branch CBC WITH DIFF 2020-11-07 Jey Mejía [place] o f 10:05:00 [facility] HEPATIC FUNCTION PANEL 2020-11-05 [facility] rsity of ([id number]) (ALB,T.PRO,BILI 09:59:00 [facility] T,BU/BC,ALT,AST,ALK PHOS) Branch BASIC METABOLIC PANEL (NA, 2020-11-05 Jey Mejía U niversity of K, CL, CO2, GLUCOSE, BUN, 09:59:00 [facility] CREATININE, [place]) Branch CBC WITH DIFF 2020-11-05 Jey Mejía [place] o f 09:59:00 [facility] CEREBROSPINAL FLUID PROTEIN 2020-10-27 Jey Mejía [place] of 19:49:00 [facility] Center CEREBROSPINAL FLUID GLUCOSE 2020-10-27 Jey Mejía [place] of 19:49:00 [facility] BODY FLUID DIRECT COUNT 2020-10-27 Jey Mejía ersity of 19:49:00 [facility] CSF/METER READING CLERK SHUNT CULTURE 2020-10-27 Jey Mejía [facility] ity of 19:49:00 [facility] CSF CULTURE 2020-10-27 Jey Mejía [place] o f 19:49:00 [facility] BASIC METABOLIC PANEL (NA, 2020-10-27 Jey Mejía U niversity of K, CL, CO2, GLUCOSE, BUN, 11:41:00 [facility] CREATININE, [place]) Branch CBC WITH DIFF 2020-10-27 Jey Mejía o f 11:41:00 [facility] POCT GLUCOSE (AUTOMATED) 2020-10-27 Frances Terry [facility] ity of 01:51:00 [facility] COVID-19 (ID NOW RAPID 2020-10-26 Jey Mejía [facility] rsity of TESTING) 18:47:00 [facility] LAB ONLY COVID 2020-10-26 Jey Mejía [place] o f INTERPRETATION 18:47:00 [facility] MR BRAIN W WO CONTRAST 2020-10-26 [facility] rs[facility] of 17:18:00 [facility] CT CHEST PULMONARY ANGIOGRAM 2020-10-26 Jey Mejía [place] of 16:39:40 [facility] XR CHEST 1 VW 2020-10-26 [facility] of 13:00:00 [facility] D-DIMER 2020-10-26 Lindsey Urbina, [facility] of 11:04:00 [facility] EXTRA TUBE RED 2020-10-26 Frances Terry [place] of 11:04:00 [facility] URINALYSIS 2020-10-26 [facility] of 08:35:00 [facility] URINE CULTURE 2020-10-26 Lindseygino Urbina [facility] of 08:35:00 [facility] BLOOD CULTURE SCREEN 2020-10-26 [facility] of 08:22:00 [facility] BLOOD CULTURE SCREEN 2020-10-26 [facility]Lucy [facility] sity of 08:11:00 [facility] MAGNESIUM 2020-10-26 [facility] of 08:02:00 [facility] BASIC METABOLIC PANEL (NA, 2020-10-26 [facility] of K, CL, CO2, GLUCOSE, BUN, 08:02:00 [facility] CREATININE, [place]) Branch EXTRA TUBE LAV 2020-10-26 [facility] of 08:02:00 [facility] MAGNESIUM 2020-10-25 [facility] of 10:43:00 [facility] BASIC METABOLIC PANEL (NA, 2020-10-25 [facility] of K, CL, CO2, GLUCOSE, BUN, 10:43:00 [facility] CREATININE, [place]) Branch CBC WITH DIFF 2020-10-25 [facility] of 10:43:00 [facility] FREE T4 2020-10-24 [facility] o f 19:55:00 [facility] MAGNESIUM 2020-10-24 [facility] of 09:22:00 [facility] THYROID STIMULATING HORMONE 2020-10-24 [facility] of 09:22:00 [facility] BASIC METABOLIC PANEL (NA, 2020-10-24 [facility] of K, CL, CO2, GLUCOSE, BUN, 09:22:00 [facility] CREATININE, [place]) Branch CBC WITH DIFF 2020-10-24 [facility] of 09:22:00 [facility] BASIC METABOLIC PANEL (NA, 2020-10-22 Sina Baker rsity of K, CL, CO2, GLUCOSE, BUN, 10:35:00 [facility] CREATININE, [place]) Branch CBC WITH DIFF 2020-10-22 [facility] o f 10:35:00 [facility] MAGNESIUM 2020-10-21 [facility] of 10:26:00 [facility] BASIC METABOLIC PANEL (NA, 2020-10-21 Sina Baker Unive rsity of K, CL, CO2, GLUCOSE, BUN, 10:26:00 [facility] CREATININE, [place]) Branch CBC WITH DIFF 2020-10-21 Jey Mejía o f 10:26:00 [facility] TROPONIN I 2020-10-20 [facility] of 10:38:00 [facility] CBC WITH DIFF 2020-10-20 [facility] of 10:38:00 [facility] PROTHROMBIN TIME / INR 2020-10-20 [facility] ersity of 10:37:00 [facility] ACTIVATED PARTIAL THRMPLAS 2020-10-20 [facility] of [place] 10:37:00 [facility] MAGNESIUM 2020-10-20 [facility] of 09:30:00 [facility] HEPATIC FUNCTION PANEL 2020-10-20 [facility] ersity of ([id number]) (ALB,T.PRO,BILI 09:30:00 [place] [facility] T,BU/BC,ALT,AST,ALK PHOS) Branch BASIC METABOLIC PANEL (NA, 2020-10-20 [facility] of K, CL, CO2, GLUCOSE, BUN, 09:30:00 [facility] CREATININE, [place]) Branch XR KUB 2020-10-19 [facility] of 11:25:00 [facility] MAGNESIUM 2020-10-19 [facility] of 09:24:00 [facility] BASIC METABOLIC PANEL (NA, 2020-10-19 [facility] of K, CL, CO2, GLUCOSE, BUN, 09:24:00 [facility] CREATININE, [place]) Branch BASIC METABOLIC PANEL (NA, 2020-10-19 Jey Mejía niversity of K, CL, CO2, GLUCOSE, BUN, 04:08:00 [facility] CREATININE, [place]) Branch MAGNETIC RESONANCE IMAGING 2020-10-19 Anesthesiology [facility] rsity of UNDER ANESTHESIA 03:25:00 [facility] MR BRAIN W WO CONTRAST 2020-10-18 Jey Mejía rsity of 21:29:00 [facility] MR ABDOMEN W WO CONTRAST 2020-10-18 Jey Mejía versity of MRCP 21:29:00 [facility] ECHO ROUTINE W/DOPPLER COLOR 2020-10-18 Jey Mejía of 17:10:24 [facility] MAGNESIUM 2020-10-18 César Urbina, [facility] of 10:37:00 [facility] BASIC METABOLIC PANEL (NA, 2020-10-18 [facility] of K, CL, CO2, GLUCOSE, BUN, 10:37:00 [facility] CREATININE, [place]) Branch CBC WITH DIFF 2020-10-18 Jey Mejía o f 10:37:00 [facility] XR KUB 2020-10-17 Jey Mejía o f 22:52:00 [facility] BLOOD CULTURE SCREEN 2020-10-17 Jey Mejía ity of 21:53:00 [facility] MISCELLANEOUS SEND OUT TEST 2020-10-17 Macario Kirby [place] of 19:57:00 [facility] URINALYSIS 2020-10-17 Jey Mejía o f 19:40:00 [facility] URINE CULTURE 2020-10-17 Jey Mejía o f 19:40:00 [facility] NEUTROPHIL CYTOPLASMIC AB, 2020-10-17 Jey Mejía U niversity of IGG 19:36:00 [facility] LACTIC ACID WHOLE BLOOD 2020-10-17 Jey Mejía ersity of 19:33:00 [facility] CANCER ANTIGEN-GI (CA 19-9) 2020-10-17 Jey Mejía of 19:21:00 [facility] BLOOD CULTURE SCREEN 2020-10-17 Jey Mejía ity of 19:21:00 [facility] CARCINOEMBRYONIC ANTIGEN 2020-10-17 Jey Mejía Uni versity of 19:21:00 [facility] BASIC METABOLIC PANEL (NA, 2020-10-17 Jey Mejía U niversity of K, CL, CO2, GLUCOSE, BUN, 19:21:00 [facility] CREATININE, CA) Branch CA-125 2020-10-17 Jey Mejía o f 19:21:00 [facility] CT ABDOMEN PELVIS W CONTRAST 2020-10-17 Maxx Kirby [place] of 15:59:15 [facility] CT THORAX W CONTRAST 2020-10-17 Macario Kirby [facility] sity of 15:59:15 [facility] MAGNESIUM 2020-10-17 Macario Kirby of 11:12:00 [facility] C-REACTIVE PROTEIN 2020-10-17 Jey Mejía [facility] y of 11:12:00 [facility] BASIC METABOLIC PANEL (NA, 2020-10-17 Macario Kirby [place] of K, CL, CO2, GLUCOSE, BUN, 11:12:00 [facility] CREATININE, [place]) Branch SEDIMENTATION RATE 2020-10-17 Jey Mejía [facility] y of 11:12:00 [facility] CBC WITH DIFF 2020-10-17 Macario Kirby of 11:12:00 [facility] MAGNESIUM 2020-10-17 Macario Kirby [place] of 10:07:00 [facility] CBC WITH DIFF 2020-10-17 [facility] of 10:07:00 [facility] MISCELLANEOUS SEND OUT TEST 2020-10-17 Macario Kirby [place] of 10:07:00 [facility] CEREBROSPINAL FLUID PROTEIN 2020-10-17 Macario Kirby of 07:57:00 [facility] CEREBROSPINAL FLUID GLUCOSE 2020-10-17 Macario Kirby [place] of 07:57:00 [facility] BODY FLUID DIRECT COUNT 2020-10-17 Macario Kirby Uni versity of 07:57:00 [facility] CSF/METER READING CLERK SHUNT CULTURE 2020-10-17 Macario Kirby [facility] sity of 07:57:00 [facility] FUNGUS (ROUTINE) CULTURE 2020-10-17 Macario Kirby iversity of 07:57:00 [facility] MISCELLANEOUS SEND OUT TEST 2020-10-17 Jey Mejía [place] of 07:57:00 [facility] CSF CULTURE 2020-10-17 [facility] of 07:57:00 [facility] MISCELLANEOUS SEND OUT TEST 2020-10-17 Macario Kirby [place] of 07:56:00 [facility] J-EHXQRJ-T-ASPARTATE 2020-10-17 Macario Kirby [facility] sity of RECEPTOR AB, CSF 07:56:00 [facility] ELECTROENCEPHALOGRAM 2020-10-17 Joey Domínguez [facility] of 00:00:00 [facility] MR BRAIN WO CONTRAST 2020-10-16 [facility] of 21:37:16 [facility] CORTISOL AM 2020-10-16 [facility] of 11:01:00 [facility] BASIC METABOLIC PANEL (NA, 2020-10-16 Diana Randolph niversity of K, CL, CO2, GLUCOSE, BUN, 11:01:00 [facility] CREATININE, [place]) Branch POTASSIUM, URINE RANDOM 2020-10-16 Agustín, Diana [facility] ersity of 06:25:00 [facility] Branch SODIUM, URINE RANDOM 2020-10-16 Agustín, Diana Univers ity of 06:25:00 [facility] Branch MAGNESIUM, URINE RANDOM 2020-10-16 [facility], Diana [facility] ersity of 06:25:00 [facility] Branch CALCIUM, URINE RANDOM 2020-10-16 [facility], Diana [facility] sity of 06:25:00 [facility] GLUCOSE, URINE RANDOM 2020-10-16 Raysa Delaney [place] of 06:25:00 [facility] Branch OSMOLALITY URINE 2020-10-15 [facility] of 22:40:00 [facility] Branch CREATININE, URINE RANDOM 2020-10-15 [facility] medical centerDiana rebolledo [facility] versity of 22:40:00 [facility] SODIUM, URINE RANDOM 2020-10-15 [facility] of 22:40:00 [facility] CALCIUM, URINE RANDOM 2020-10-15 [facility] sity of 22:40:00 [facility] MAGNESIUM 2020-10-15 [facility] o f 21:50:00 [facility] BASIC METABOLIC PANEL (NA, 2020-10-15 [facility] U niversity of K, CL, CO2, GLUCOSE, BUN, 21:50:00 [facility] CREATININE, [place]) Branch PHOSPHORUS 2020-10-15 [facility] o f 11:34:00 [facility] MAGNESIUM 2020-10-15 [facility] o f 11:34:00 [facility] BASIC METABOLIC PANEL (NA, 2020-10-15 [facility] U niversity of K, CL, CO2, GLUCOSE, BUN, 11:34:00 [facility] CREATININE, [place]) Branch CBC WITHOUT DIFF 2020-10-15 [facility] of 11:34:00 [facility] XR KUB 2020-10-14 [facility] o f 23:45:10 [facility] XR CHEST 1 VW 2020-10-14 [facility] o f 21:24:07 [facility] BASIC METABOLIC PANEL (NA, 2020-10-14 [facility] U niversity of K, CL, CO2, GLUCOSE, BUN, 20:54:00 [facility] CREATININE, [place]) Branch HB ECG ROUTINE & RHYTHM 2020-10-14 [facility] ersity of STRIP 16:54:32 [facility] PHOSPHORUS 2020-10-14 [facility] o f 10:58:00 [facility] MAGNESIUM 2020-10-14 [facility] o f 10:58:00 [facility] BASIC METABOLIC PANEL (NA, 2020-10-14 [facility] U niversity of K, CL, CO2, GLUCOSE, BUN, 10:58:00 [facility] CREATININE, [place]) Branch CBC WITHOUT DIFF 2020-10-14 [facility] of 10:58:00 [facility] CREATINE KINASE 2020-10-13 [facility] o f 22:41:00 [facility] AMMONIA, PLASMA 2020-10-13 [facility] o f 22:41:00 [facility] BASIC METABOLIC PANEL (NA, 2020-10-13 [facility] niversity of K, CL, CO2, GLUCOSE, BUN, 22:41:00 [facility] CREATININE, [place]) Branch VITAMIN B1, PLASMA 2020-10-13 Jojo [facility] of 11:04:00 [facility] PHOSPHORUS 2020-10-13 Jojo, [facility] of 11:04:00 [facility] CREATINE KINASE 2020-10-13 Jojo, [facility] of 11:04:00 [facility] MAGNESIUM 2020-10-13 Jojo, [facility] of 11:04:00 [facility] OSMOLALITY, SERUM OR PLASMA 2020-10-13 [facility] versity of 11:04:00 [facility] VITAMIN B12, LEVEL 2020-10-13 Jojo [facility] of 11:04:00 [facility] RHEUMATOID FACTOR 2020-10-13 Aravind [facility] of 11:04:00 [facility] TROPONIN I 2020-10-13 Jojo [facility] of 11:04:00 [facility] FREE T4 2020-10-13 [facility]ood [facility] of 11:04:00 [facility] THYROID STIMULATING HORMONE 2020-10-13 [facility] of 11:04:00 [facility] HEPATIC FUNCTION PANEL 2020-10-13 Iveth Correia [facility] ty of ([id number]) (ALB,T.PRO,BILI 11:04:00 [place] [facility] T,BU/BC,ALT,AST,ALK PHOS) Branch BASIC METABOLIC PANEL (NA, 2020-10-13 Gustavo Uribe [facility] rsity of K, CL, CO2, GLUCOSE, BUN, 11:04:00 [facility] CREATININE, [place]) Branch PHENYTOIN FREE 2020-10-13 Jojo [facility] of 11:04:00 [facility] SERUM DRUG (IMMUNOASSAY) - 2020-10-13 Gustavo Uribe [facility] rsity of COMPREHENSIVE DRUG SCREEN 11:04:00 [facility] CBC WITH DIFF 2020-10-13 Gustavo Uribe [place] of 11:04:00 [facility] PROTHROMBIN TIME / INR 2020-10-13 Gustavo Uribe [facility] y of 11:04:00 [facility] ANTI-NUCLEAR ANTIBODY SCREEN 2020-10-13 [facility] of 11:04:00 [facility] HEPATITIS B VIRUS (HBV) BY 2020-10-13 Gustavo Uribe rsity of QUANTITATIVE NAAT 11:04:00 [facility] FREE T3 2020-10-13 Masood Iveth [place] of 11:04:00 [facility] HIV 1/2 AG-AB WITH REFLEX 2020-10-13 Gustavo Uribe sity of 11:04:00 [facility] GALV ONLY - SYPHILIS IGG/IGM 2020-10-13 Gustavo Uribe [facility] versity of 11:04:00 [facility] ANTI-NUCLEAR 2020-10-13 Aravind Lockwood [facility] o f ANTIBODY-PATHOLOGIST 11:04:00 [facility] al INTERPRETATION Branch HEPATITIS C VIRUS (HCV) BY 2020-10-13 Gustavo [facility]ie [facility] rsity of QUANTITATIVE NAAT 11:03:00 [facility] CT HEAD WO CONTRAST 2020-10-13 Gustavo Uribe o f 09:58:38 [facility] XR CHEST 2 VW 2020-10-13 Gustavo Uribe [place] of 09:42:38 [facility] HB ECG ROUTINE & RHYTHM 2020-10-13 Gustavo Uribe [facility] ty of STRIP 08:30:00 [facility] ELECTROENCEPHALOGRAM 2020-10-13 Gustavo Uribe [place] of 00:00:00 [facility] POCT GLUCOSE (AUTOMATED) 2020-10-12 James Allen ity of 13:36:00 [facility] POCT GLUCOSE (AUTOMATED) 2020-10-12 James Allen it of 06:16:00 [facility] COVID-19 (ID NOW RAPID 2020-10-12 Jhonatan Lombardo [facility] y of TESTING) 04:57:00 [facility] LAB ONLY COVID 2020-10-12 Jhonatan Lombardo [place] of INTERPRETATION 04:57:[address] [facility] CT HEAD WO CONTRAST 2020-10-12 [facility] o f 04:12:18 [facility] COMP. METABOLIC PANEL 2020-10-12 [facility] of ([id number]) 01:49:00 [facility] URINALYSIS 2020-10-12 [facility] 01:21:00 [facility] ADC / LCC - DRUG SCREEN 2020-10-12 [facility] TRIAGE 01:21:00 [facility] AMMONIA, PLASMA 2020-10-12 [facility] 00:19:00 [facility] SALICYLATE 2020-10-12 [facility] 00:11:00 [facility] ETHANOL 2020-10-12 [place] 00:11:00 [facility] NOTICE OF PRIVACY PRACTICES 2020-10-11 Doctor Unassigned, N o [place] of 23:19:20 Name [facility] CONSENT/REFUSAL FOR 2020-10-11 Doctor Unassigned, No [facility] of DIAGNOSIS AND TREATMENT 23:18:24 Name [facility] EXTERNAL PROVIDER RECORDS 2020-10-11 Doctor Unassigned, No University of 06:01:00 Name [facility] AGREEMENTS AUTHORIZATIONS 2020-10-11 Doctor Unassigned, No [place] of AND IRREVOCABLE ASSIGNMENTS 06:01:00 Name Addie gallardo [facility] (FORM 2001) Branch HOSPITAL ADMISSION 2020-10-11 Doctor Unassigned, No Univers ity of 06:01:00 Name [facility] CONSENT/REFUSAL FOR 2020-04-04 Doctor Unassigned, No [facility] sity of DIAGNOSIS AND TREATMENT 14:30:46 Name [facility] URINALYSIS 2019-06-08 Chiqui Rosen [facility] 15:56:00 [facility] LIPASE 2019-06-08 Chiqui Rosen [facility] 15:40:00 [facility] HEPATIC FUNCTION PANEL 2019-06-08 Chiqui Rosen [facility] sity of ([id number]) (ALB,T.PRO,BILI 15:40:00 [facility] T,BU/BC,ALT,AST,ALK PHOS) [place] BASIC METABOLIC PANEL (NA, 2019-06-08 Chiqui Rosen Un iversity of K, CL, CO2, GLUCOSE, BUN, 15:40:00 [facility] CREATININE, [place]) Branch CBC WITH DIFFERENTIAL 2019-06-08 Chiqui Rosen Univers ity of 15:40:00 [facility] NOTICE OF PRIVACY PRACTICES 2019-06-08 Doctor Unassigned, N o University of 14:37:20 Name [facility] CONSENT/REFUSAL FOR 2019-06-08 Doctor Unassigned, No Univer sity of DIAGNOSIS AND TREATMENT 14:37:05 Name [facility] dical [place] Plan of Care Planned Activity Planned Date Details Comments Source Future Scheduled 2022-10-[address] [facility] Test 00:00:00 (12+) [code = Medical Center DEPRESSION SCREENING (12+)] Future Scheduled 2022-10-07 FALLS RISK SCREENING [facility] Test 00:00:00 [code = FALLS RISK Medical C enter SCREENING] Future Scheduled 2022-09-20 BREAST CANCER [facility] Test 21:40:35 SCREENING [code = BREAST CANCER SCREENING] Future Scheduled 2022-09-20 COLONOSCOPY SCREENING [facility] Test 21:40:35 [code = COLONOSCOPY SCREENING] Future Scheduled 2022-09-20 [facility]IN[facility] 21:40:35 of 2) [code = SHINGLES VACCINES (1 of 2)] Future Scheduled 2022-09-20 65+ [facility]AL [facility] 21:40:35 VACCINE (1 - PCV) [code = 65+ PNEUMOCOCCAL VACCINE (1 - PCV)] Future Scheduled 2022-09-20 [facility]FLUENZA [facility]ACCINE [facility] 21:40:35 [code = INFLUENZA VACCINE] Future Scheduled 2022-09-20 COVID-19 VACCINE (#1) [facility] Test 21:40:35 [code = COVID-19 VACCINE (#1)] Future Scheduled 2022-09-20 Hepatitis C screening [facility] Test 21:40:35 (procedure) [code = 315177048] Future Scheduled 2022-06-07 INFLUENZA VACCINE (#1) [facility] 00:00:00 [code = INFLUENZA Medical Ce nter VACCINE (#1)] Future Scheduled 2020 PNEUMOCOCCAL 65+ YRS [facility] Test 00:00:00 (1 - PCV) [code = Medical Ce nter PNEUMOCOCCAL 65+ YRS (1 - PCV)] Future Scheduled 2005 SHINGLES VACCINES ([address] [facility] Test 00:00:00 of 2) [code = SHINGLES Medic al Center VACCINES (1 of 2)] Future Scheduled 1974 DTAP/TDAP/TD VACCINES [facility] 00:00:00 (1 - Tdap) [code = Medical C enter DTAP/TDAP/TD VACCINES (1 - Tdap)] Future Scheduled 1973 HEPATITIS C [facility]CRE[facility]ING [facility] 00:00:00 [code = HEPATITIS C Medical Center SCREENING] Future Scheduled [address] [facility] Test 00:00:00 Counseling and Medical Cente r Screening (12+) [code = Tobacco Cessation Counseling and Screening (12+)] Future Scheduled 1956-01-04 COVID-19 VACCINE (#1) [facility] 00:00:00 [code = COVID-[address] VACCINE (#1)] Future Scheduled [address] [facility] Test 00:00:00 malignant neoplasm of Medica l Center breast (procedure) [code = 452989611] Future Scheduled [address] [facility] [facility] 00:00:00 (combo) [code = CT Medical C enter Colonography (combo)] Future Scheduled [address] [facility] Test 00:00:00 malignant neoplasm of Medica l Center colon (procedure) [code = 313828855] Future Scheduled [address] [facility] Test 00:00:00 malignant neoplasm of Medica l Center colon (procedure) [code = 868364591] Future Scheduled 1955 DXA SCAN [code = DXA [facility] Test 00:00:00 SCAN] Medical Center Future Scheduled [address] Test 00:00:00 malignant neoplasm of Medica l Center colon (procedure) [code = 361425457] Future Scheduled [address] Test 00:00:00 malignant neoplasm of Medica l Center colon (procedure) [code = 309019710] Future Scheduled 1955 Sigmoidoscopy [facility]code [facility] S[facility]oscopy] Medical Cente r Encounters Start End Encounter Admission Attending Care Care Encounter Source Date/Time Date/Time Type Type Clinicians Facility Department ID 2022-01-31 Outpatient [facility] [id number] MD 13:14:07 [id number] [facility] 2022-12-04 2022-12-06 Inpatient Bisi COELLO Neida TELE [id number] [facility] 06:05:00 21:25:00 [facility] 2022-12-05 2022-12-05 [facility] [id number] 00:00:00 00:00:00 Only Neftaly Allred [facility] [facility] 2022-12-04 2022-12-04 Outpatient [facility] [id number] 00:00:00 00:00:00 [facility] 2022-12-04 2022-12-04 Outpatient [facility] [id number] 00:00:00 00:00:00 [facility] 2022-09-25 2022-09-25 Ambulatory MHIE MNA [id number] [facility] 17:00:00 17:00:00 Pre-Reg Neurology 00 l [facility] [place] 2022-09-25 2022-09-25 Outpatient MHIE MHIE [id number] [facility] 11:00:00 11:00:00 00 l [place] 2022-09-25 2022-09-25 Outpatient MHIE MHIE [id number] [facility] 11:00:00 11:00:00 00 l [place] 2022-09-25 2022-09-25 Outpatient DAHLIA Najera [id number] 11:00:00 11:00:00 Joe 00 Reuben 2022-08-27 2022-08-27 Transition LES Salomon 1.2.840.114 [id number] Univers 00:00:00 00:00:00 of Care Santa MUKHERJEE 350.1.13.10 [place] [phone] [facility] [address] 2022-08-18 2022-08-24 Outpatient Trini CASANOVA [facility] [id number] Univers 11:15:00 20:10:00 DESTINEE mi [facility] 2022-08-18 2022-08-24 Emergency Yojana Max 1.2.840 .114 [id number] Univers 11:15:00 20:10:00 Destinee Casanova 350.1.13.10 ity [facility] 4.2.7.2.686 Mike as [phone] [facility] 0[address] 2022-08-03 2022-08-05 Outpatient X [facility] [id number] Univers 13:48:00 16:50:00 HECTOR ander [facility] 2022-08-03 2022-08-05 Emergency Chepe Camejo [facility] 1.2.840.1 14 [id number] Univers 13:48:00 16:50:00 MarkoHector 350.1.13.10 ity [facility] 4.2.7.2.686 [facility] [phone] [facility] 081 Branch 2022-07-29 2022-07-30 Emergency X [facility] ERT [id number] Univers 22:31:00 03:45:00 [facility] 2022-07-29 2022-07-30 Emergency [facility] 1.2.020.135 [id number] Univers 22:31:00 03:45:00 Tnadalid Sami ZEPEDABANNER 350.1.13.10 ity [facility] 4.2.7.2.686 [facility] [phone] [facility] 084 Branch 2022-01-22 2022-02-01 Inpatient [facility] [id number] Univers 12:31:00 16:22:00 KRYSTAL mi [facility] 2022-01-22 2022-02-01 Hospital Chiqui Rosen 1.2.84 0.114 [id number] Univers 12:31:00 16:22:00 Encounter Krystal Truong 350.1.1 3.10 ity [facility] 4.2.7.2.686 Mike as [id number] [facility] 095 Branch 2022-02-01 2022-02-01 [facility] 1.2.910.107 [id number] Univers 00:00:00 00:00:00 Krystal PRIMARY 350.1.13.10 it y [place] [id number] Fl dical 388 [address] 2022-02-01 2022-02-01 [facility]phone [facility] 1.2.379.696 [id number] Univers 00:00:00 00:00:00 Marybeth PRIMARY 350.1.13.10 it [place] [phone] Fl dical 388 [address] 2022-01-30 2022-01-30 Telephone [facility] 1.2.723.883 [id number] Univers 00:00:00 00:00:00 Neftaly PRIMARY 350.1.13.10 it y [place] [id number] Fl dical 044 Branch 2022-01-23 2022-01-23 Transition LES Espinoza 1.2.840.114 [id number] Univers 00:00:00 00:00:00 of Care Bel MUKHERJEE 350.1.13.10 i ty [place] [id number] [facility] [address] 2022-01-16 2022-01-20 Inpatient X DAVI [facility] [place] [id number] Univers 15:22:00 11:35:00 RODRICK ity of [facility] 2022-01-16 2022-01-20 [facility] Norberto Trujillo [facility] 1.2.8 40.114 [id number] Univers 15:22:00 11:35:00 Encounter Rodrick Tomlinson 350.1.13.10 [place] [id number] [facility] 080 [address] 2022-01-16 2022-01-16 Orders Doctor EDELMIRA 1.2.840.114 [id number] Univers 00:00:00 00:00:00 Only Unassigned, TRAMAINE 350.1.13.10 ity of [facility] 4.2.7.2.686 Mike as [id number] [address] 2021-03-01 2021-03-01 Orders Doctor EDELMIRA 1.2.840.114 [id number] Univers 00:00:00 00:00:00 Only Unassigned, TRAMAINE 350.1.13.10 ity of [facility] 4.2.7.2.686 Mike as [id number] [address] 2021-02-16 2021-02-16 Orders Doctor EDELMIRA 1.2.840.114 [id number] Univers 00:00:00 00:00:00 Only Unassigned, TRAMAINE 350.1.13.10 ity of [facility] 4.2.7.2.686 Mike as [phone] [address] 2020-11-22 2020-11-22 Orders Doctor HICKEY 1.2.840.114 [id number] Univers 00:00:00 00:00:00 Only Unassigned, TRAMAINE 350.1.13.10 ity of [facility] 4.2.7.2.686 Mike as [id number] [address] 2020-11-22 2020-11-22 Orders Doctor EDELMIRA 1.2.840.114 [id number] 00:00:00 00:00:00 Only Unassigned, TRAMAINE 350.1.13.10 [facility] 4.2.7.2.686 [id number] 009 2020-11-11 2020-11-11 Transition Les Espinoza 1.2.840.114 [id number] Univers 00:00:00 00:00:00 of Care Bel M Mukherjee 350.1.13.10 i ty of [place] [phone] [facility] [address] 2020-11-11 2020-11-11 Transition Les Espinoza 1.2.840.114 [id number] 00:00:00 00:00:00 of Care Bel M Mukherjee 350.1.13.10 [place] 4.2.7.2.686 [id number] [id number] 2020-10-11 2020-11-10 Inpatient X FANG, FRANCES [facility] JOSIE [id number] Univers 17:18:00 13:18:00 ity of [facility] 2020-10-11 2020-11-10 [facility] [place] 1.2.840.1 14 [id number] Univers 17:18:00 13:18:00 Encounter Brendon Lombardobianca Muñoz 350.1.13.10 ity of [facility] 4.2.7.2.686 [place] [employer] [id number] [address] Xiang 2020-06-16 2020-06-22 Inpatient [facility] [id number] 80 [place] 00:00:00 00:00:00 HOOD 844 Method i 2020-04-04 2020-04-04 Emergency [facility] 1.2.840.114 [id number] Univers 09:38:30 10:05:00 Chiqui Monterroso 350.1.13.10 ity [facility] 4.2.7.2.686 [facility] [id number] [facility] 084 Branch 2020-04-04 2020-04-04 Emergency X [facility] ERT [id number] Univers 09:31:00 09:31:00 ity of [facility] 2020-04-04 2020-04-04 Orders Doctor HICKEY 1.2.840.114 [id number] Univers 00:00:00 00:00:00 Only Unassigned, TRAMAINE 350.1.13.10 ity of [place] [facility] 4.2.7.2.686 Mike as [phone] [facility] 009 Branch 2019-12-25 2019-12-25 Nurse Rosaura Dunlap 1.2.840.114 [id number] Univers 00:00:00 00:00:00 Triage TRAMAINE 350.1.13.10 it y of [facility] 4.2.7.2.686 Mike as [phone] [facility] 019 Branch 2019-06-08 2019-06-08 Emergency [facility] 1.2.840.114 [id number] Univers 09:51:07 12:07:00 Chiqui Monterroso 350.1.13.10 ity of [place] 4.2.7.2.686 [facility] [id number] [facility] 084 [address] 2019-06-08 2019-06-08 Emergency X JESSIKA, [facility] ERT [id number] Univers 09:51:07 12:07:00 CHIQUI ity of [facility] 2019-06-08 2019-06-08 Orders Doctor EDELMIRA 1.2.840.114 [id number] Univers 00:00:00 00:00:00 Only Unassigned, TRAMAINE 350.1.13.10 ity of [place] [facility] 4.2.7.2.686 [facility] [phone] [facility] 009 [address] 2012-02-14 2012-02-14 Emergency nullFlavo [facility] [id number] Memoria 07:25:00 13:06:00 r Medical 00 l [facility] 2012-02-14 2012-02-14 Emergency nullFlavo [facility] [id number] Memoria 07:25:00 13:06:00 r Medical 00 l [facility] Results Test Description Test Time Test Comments Results Result Comments Source GLUCOMETER GLUCOSE- LAB USE ONLY 2022-12-06 09:16:00 Test Item Value Reference Range Interpretation Comme nts GLUCOMETER (test code = GMG) 119 mg/dL 70-100 H CLEANED METERMeter ID: [id number] tor: [id number] HANK LUCIO GLUCOMETER GLUCOSE- LAB USE [id number] 09:15:00 Test Item Value Reference Range Interpretation Comments GLUCOMETER (test code = 102 mg/dL 70-100 H Mete r ID: GMG) [id number] tor: [id number] JOURNEY W ILCOX GLUCOMETER GLUCOSE- LAB USE [id number] 09:14:00 Test Item Value Reference Range Interpretation Comments GLUCOMETER (test code = 173 mg/dL 70-100 H Mete r ID: GMG) [id number] tor: [id number] JOURNEY W ILCOX GLUCOMETER GLUCOSE- LAB USE [id number] 09:13:00 Test Item Value Reference Range Interpretation Comments GLUCOMETER (test code = 94 mg/dL 70-100 Mete r ID: GMG) [id number] tor: [id number] JOURNEY W ILCOX GLUCOMETER GLUCOSE- LAB USE [id number] 09:13:00 Test Item Value Reference Range Interpretation Comments GLUCOMETER (test code = 95 mg/dL 70-100 Mete r ID: GMG) [id number] tor: [id number] FREEMAN CARVER MON CBC WITH MORPHOLOGY *WW*2022-12-06 08:19:00 Test Item Value Reference Range Interpretation Comments WBC (test code = WBC) 5.9 10\\S\\3/uL 4.5-11.0 RBC (test code = RBC) 2.79 10\\S\\6/uL 3.80-5.80 L HGB (test code = HBG) 8.8 g/dL 12.0-15.5 L HCT (test code = HCT) 27.7 % 35.0-44.0 L MCV (test code = MCV) 99.3 fL 81.0-99.0 H MCH (test code = MCH) 31.5 pg 27.0-31.0 H MCHC (test code = MCHC) 31.8 g/dL 32.0-36.0 L RDW (test code = RDW) 13.8 % 11.5-14.5 PLT (test code = PLT) 214 10\\S\\3/uL 130-400 MPV (test code = MPV) 12.0 fL 9.4-12.4 NEUTROP # (test code = NE#) 4.6 10\\S\\3/uL 1.6-8.0 LYMPH # (test code = LY#) 0.7 10\\S\\3/uL 1.1-3.5 L MONOCYTE # (test code = 0.5 10\\S\\3/uL 0.0-1.1 MO#) EOSINOPH # (test code = 0.0 10\\S\\3/uL 0.0-0.7 EO#) BASOPHIL # (test code = 0.0 10\\S\\3/uL 0.0-0.3 BA#) IG # (test code = IG#) 0.04 10\\S\\3/uL 0.00-0.06 NRBC # (test code = NRBC#) 0.02 10\\S\\3/uL 0.00-0.01 H NEUTROPH % (test code = 78.9 % 35.0-73.0 H NE%) LYMPH % (test code = LY%) 11.9 % 20.0-55.0 L MONO % (test code = MO%) 8.0 % 2.5-10.0 EOSINOPH % (test code = 0.2 % 0.0-5.0 EO%) BASOPHIL % (test code = 0.3 % 0.0-2.0 BA%) IG % (test code = IG%) 0.7 % 0.0-0.8 NRBC% (test code = NRBC%) 0.3 % 0.0-0.2 H PLT EST (test code = ADEQUATE ADEQUATE PLTEST) PLT MORPH (test code = NORMAL (1.5-3 um) NORMAL PLTMOR) ANISO (test code = ANISO) 2+ NONE A HYPOCHROM (test code = 1+ NONE A HYPOC) BASIC METABOLIC PANEL 2022-12-06 06:11:00 Test Item Value Reference Range Interpretation Comments GLUCOSE (test code = 87 mg/dL 75-100 06D) SODIUM (test code = 131 mmol/L 136-145 L 01A) POTASSIUM (test code = 4.2 mmol/L 3.6-5.1 01B) CHLORIDE (test code = 100 mmol/L 98-107 04A) CO2 (test code = 02A) 28 mmol/L 20-31 ANION GAP (test code = 7.6 mmol/L ANG) BUN (test code = 05D) 11 mg/dL 9-23 CREATININE (test code 0.5 mg/dL 0.6-1.0 L = 03E) GFR (test code = GFR) 100 mL/min/1.73m\\S\\2 >=90 GFR 116 mL/min/1.73m\\S\\2 >=90 (test code = GFRAA) EGFR (test code = eGFR BY CKD-EPI EGFR) CALCULATION IS NOT RECOMMENDED FOR PATIENTS UNDER 18 YEARS OF AGE. BUN/CREA (test code = 22 12-20 H BCR) CALCIUM (test code = 7.8 mg/dL 8.3-10.6 L 09D) BASIC METABOLIC PANEL 2022-12-05 06:53:00 Test Item Value Reference Range Interpretation Comments GLUCOSE (test code = 91 mg/dL 75-100 06D) SODIUM (test code = 134 mmol/L 136-145 L 01A) POTASSIUM (test code = 4.5 mmol/L 3.6-5.1 01B) CHLORIDE (test code = 100 mmol/L 98-107 04A) CO2 (test code = 02A) 29 mmol/L 20-31 ANION GAP (test code = 9.8 mmol/L ANG) BUN (test code = 05D) 12 mg/dL 9-23 CREATININE (test code 0.4 mg/dL 0.6-1.0 L = 03E) GFR (test code = GFR) 108 mL/min/1.73m\\S\\2 >=90 GFR 125 mL/min/1.73m\\S\\2 >=90 (test code = GFRAA) EGFR (test code = eGFR BY CKD-EPI EGFR) CALCULATION IS NOT RECOMMENDED FOR PATIENTS UNDER 18 YEARS OF AGE. BUN/CREA (test code = 30 12-20 H BCR) CALCIUM (test code = 8.7 mg/dL 8.3-10.6 09D) CBC (INCLUDES AUTOMATED DIFFERENTIAL)*[id number] 06:32:00 Test Item Value Reference Range Interpretation Comments WBC (test code = WBC) 9.0 10\\S\\3/uL 4.5-11.0 RBC (test code = RBC) 3.23 10\\S\\6/uL 3.80-5.80 L HGB (test code = HBG) 10.1 g/dL 12.0-15.5 L HCT (test code = HCT) 32.2 % 35.0-44.0 L MCV (test code = MCV) 99.7 fL 81.0-99.0 H MCH (test code = MCH) 31.3 pg 27.0-31.0 H MCHC (test code = MCHC) 31.4 g/dL 32.0-36.0 L RDW (test code = RDW) 13.3 % 11.5-14.5 PLT (test code = PLT) 288 10\\S\\3/uL 130-400 MPV (test code = MPV) 11.9 fL 9.4-12.4 NEUTROP # (test code = NE#) 7.3 10\\S\\3/uL 1.6-8.0 LYMPH # (test code = LY#) 0.8 10\\S\\3/uL 1.1-3.5 L MONOCYTE # (test code = MO#) 0.8 10\\S\\3/uL 0.0-1.1 EOSINOPH # (test code = EO#) 0.0 10\\S\\3/uL 0.0-0.7 BASOPHIL # (test code = BA#) 0.0 10\\S\\3/uL 0.0-0.3 IG # (test code = IG#) 0.05 10\\S\\3/uL 0.00-0.06 NRBC # (test code = NRBC#) 0.00 10\\S\\3/uL 0.00-0.01 NEUTROPH % (test code = NE%) 81.0 % 35.0-73.0 H LYMPH % (test code = LY%) 9.3 % 20.0-55.0 L MONO % (test code = MO%) 9.0 % 2.5-10.0 EOSINOPH % (test code = EO%) 0.0 % 0.0-5.0 BASOPHIL % (test code = BA%) 0.1 % 0.0-2.0 IG % (test code = IG%) 0.6 % 0.0-0.8 NRBC% (test code = NRBC%) 0.0 % 0.0-0.2 MANDIFF (test code = WMDIFF) NO NO RBC MORPH (test code = NORMAL WRBCMOR) BASIC METABOLIC PANEL 2022-12-04 13:55:00 Test Item Value Reference Range Interpretation Comments GLUCOSE (test code = 86 mg/dL 75-100 06D) SODIUM (test code = 137 mmol/L 136-145 01A) POTASSIUM (test code = 3.9 mmol/L 3.6-5.1 01B) CHLORIDE (test code = 102 mmol/L 98-107 04A) CO2 (test code = 02A) 31 mmol/L 20-31 ANION GAP (test code = 7.9 mmol/L ANG) BUN (test code = 05D) 8 mg/dL 9-23 L CREATININE (test code 0.4 mg/dL 0.6-1.0 L = 03E) GFR (test code = GFR) 108 mL/min/1.73m\\S\\2 >=90 GFR 125 mL/min/1.73m\\S\\2 >=90 (test code = GFRAA) EGFR (test code = eGFR BY CKD-EPI EGFR) CALCULATION IS NOT RECOMMENDED FOR PATIENTS UNDER 18 YEARS OF AGE. BUN/CREA (test code = 20 12-20 BCR) CALCIUM (test code = 8.4 mg/dL 8.3-10.6 09D) GLUCOMETER GLUCOSE- LAB USE [id number] 12:08:00 Test Item Value Reference Range Interpretation Comments GLUCOMETER (test code = 75 mg/dL 70-100 Mete r ID: GMG) [id number] tor: [id number] JOURNEY W ILCOX SARS-CoV (RAPID ANTIGEN) WW2022-12-04 08:28:00 Test Item Value Reference Range Interpretation Comments SARS-CoV (ANTIGEN) NEGATIVE NEGATIVE (test code = COVAG) COVID AG (test This test has been code = COVAGC) marketed under the FDA Emergency Use Authorization (EUA) to meet challenges of the COVID-19 pandemic. The validation standards normally enforced by the FDA and the College of the [place] [employer] (CAP) are more stringent than those required for this test. Therefore, the result should be interpreted with caution and close attention to other clinical and epidemiological data CT HEAD W/O CONTRAST *WW*2022-12-04 05:02:26 [facility] : 1955 Sex: FExamination: Non contrast head CTIndication: Unspecified fallComparison: NoneLocation: [id number]: Multiple CT images of the brain were obtained from the skull base to the vertex. No intravenous contrast was administered. One or more of the following dose reduction techniques were used: Automated exposure control, ad justment of the mA and/or kV according to patient size, and/or utilization of iterative reconstruction technique.Findings: There is prominence of the ventricles and sulci consistent with moderate supratentorial cerebral volume loss. The basilar cisterns are patent.There is no intracranial hemorrhage or mass effect. No intra-axial or extra-axial fluid collections are seen. There are mild periventricular and subcortical white matter hypodensities which are nonspecific, but likely the sequelae of chronic microvascular ischemia. This appearance makes evaluation for underlying acute infarct difficultThevisualized paranasal sinuses and mastoid air cells are clear. Impression: 1. No acute intracranial hemorrhage or significant mass effect2. Additional findings as aboveElectronically signed by: Tonja García MD 12/04/2022 5:02 AM [facility] [id number] WITH MICRO *WW*2022-12-04 04:19:00 Test Item Value Reference Range Interpretation Comments COLOR (test code = COLU) YELLOW YELLOW CLARITY (test code = CLA) SLT HAZY CLEAR A GLUCOSE UR (test code = UA NEGATIVE NEGATIVE GLUCOSE) BILI UR (test code = BILE) NEGATIVE NEGATIVE KETONES UR (test code = NGOZI) NEGATIVE NEGATIVE SP GRAVITY (test code = SPGR) 1.010 1.005-1.030 PH UR (test code = PH) 7.0 4.5-8.0 PROTEIN UR (test code = PU) NEGATIVE NEGATIVE UROBIL UR (test code = UROQ) 0.2 EU/dL 0.2-1.0 NITRITE UR (test code = NITRITE) NEGATIVE NEGATIVE BLOOD UR (test code = UA BLOOD) TRACE-LYSED NEGATIVE A LEUK ES UR (test code = LEUK) 1+ NEGATIVE A WBC UR (test code = UWBC) 5 /HPF 0-5 RBC UR (test code = URBC) 3 /HPF 0-2 H EPITH UR (test code = UEPC) FEW /LPF FEW BACTERIA UR (test code = UBACT) FEW /HPF NONE A CAST UR (test code = CAST) /LPF NONE CRYSTAL UR (test code = CRYU) / LPF NONE MUCUS UR (test code = MUC) / HPF NONE AMORPH UR (test code = EVE) FEW / HPF NONE A TRICH UR (test code = UTRICH) /HPF NONE YEAST UR (test code = UY) /HPF NONE SPERM UR (test code = USPERM) /HPF NONE SARS-CoV (RAPID ANTIGEN) WW2022-12-04 03:32:00 Test Item Value Reference Range Interpretation Comments SARS-CoV (ANTIGEN) NEGATIVE NEGATIVE (test code = COVAG) COVID AG (test This test has been code = COVAGC) marketed under the FDA Emergency Use Authorization (EUA) to meet challenges of the COVID-19 pandemic. The validation standards normally enforced by the FDA and the [employer] of the [place] [employer] (CAP) are more stringent than those required for this test. Therefore, the result should be interpreted with caution and close attention to other clinical and epidemiological data COMPREHENSIVE METABOLIC CLAY *WW*2022-12-04 03:29:00 Test Item Value Reference Range Interpretation Comments GLUCOSE (test code = 94 mg/dL 75-100 06D) SODIUM (test code = 136 mmol/L 136-145 01A) POTASSIUM (test code = 2.5 mmol/L 3.6-5.1 LL 01B) CHLORIDE (test code = 100 mmol/L 98-107 04A) CO2 (test code = 02A) 31 mmol/L 20-31 ANION GAP (test code = 7.7 mmol/L ANG) BUN (test code = 05D) 10 mg/dL 9-23 CREATININE (test code 0.5 mg/dL 0.6-1.0 L = 03E) GFR (test code = GFR) 100 mL/min/1.73m\\S\\2 >=90 GFR 116 mL/min/1.73m\\S\\2 >=90 (test code = GFRAA) EGFR (test code = eGFR BY CKD-EPI EGFR) CALCULATION IS NOT RECOMMENDED FOR PATIENTS UNDER 18 YEARS OF AGE. BUN/CREA (test code = 20 12-20 BCR) CALCIUM (test code = 8.0 mg/dL 8.3-10.6 L 09D) BILI TOTAL (test code 0.4 mg/dL 0.2-1.0 = 11A) PROTEIN (test code = 5.4 g/dL 5.7-8.2 L 07D) ALBUMIN (test code = 3.4 g/dL 3.2-4.8 08D) GLOBULIN (test code = 2.0 g/dL 1.5-3.8 GLB) ALB/GLOB (test code = 1.7 1.0-2.6 AGRR) ALK PHOS (test code = 105 IU/L 46-116 35A) AST (test code = 30A) 26 IU/L <=33 ALT (test code = 31A) 26 IU/L 10-49 PRO TIME AND PTT 2022-12-04 03:25:00 Test Item Value Reference Range Interpretation Comments PT (test code = 12.1 s 9.8-13.6 TT) INR (test code = 1.0 INR) INRH (test code = SUGGESTED THERAPEUTIC INRH) RANGE FOR INR: 2.5 - 3.5 For Patients with Prosthetic Valves or Patients with recurrent Thromboembolic Events 2.0 - 3.0 For Most Other Applications PTT (test code = 24.6 s 20.2-38.0 PTT) PTTH (test code = To monitor the PTTH) effectiveness of heparin, we offer the Anti-Xa (Heparin Assay). It can be used for either unfractionated or LMW Heparin. Order Code is ANTI-XA TROPONIN I 2022-12-04 03:24:00 Test Item Value Reference Range Interpretation Comments TROPONIN I (test code = A84) 10.32 pg/mL 0.00-45.20 XR HIP RIGHT UNILATERAL 2 VIEWS2022-12-04 03:21:21 [facility] 1955 Sex: FHISTORY: Right hip painLocation: C3 FINDINGS:Images of the pelvis and right hip are provided.Mid femoral neck fracture is demonstrated with femoral shortening and slight varus angulation.IMPRESSION:1. Femoral neck fracture with femoral shortening. No dislocation.Electronically signed by: Edilberto Mayorga MD 12/04/2022 3:21AM OPERATIONS INSPECTOR CHEST 1 VIEW PORTABLE *WW*2022-12-04 03:20:41 [facility] : 1955 Sex: FHISTORY: Presurgery evaluationLocation: C3 COMPARISON:NoneFINDINGS:Lung volumes are increased.Heart size and vascularity are within normal limits. The lungs are clear of focal consolidation. No effusion, pneumothorax,or acute osseous abnormality.IMPRESSION:1. Increased lung volumes. No focal consolidation.Electronically signed by: Edilberto Mayorga MD 12/04/2022 3:20 AM OPERATIONS INSPECTOR (INCLUDES AUTOMATED DIFFERENTIAL)*[id number] 03:15:00 Test Item Value Reference Range Interpretation Comments WBC (test code = WBC) 5.9 10\\S\\3/uL 4.5-11.0 RBC (test code = RBC) 3.03 10\\S\\6/uL 3.80-5.80 L HGB (test code = HBG) 9.6 g/dL 12.0-15.5 L HCT (test code = HCT) 29.2 % 35.0-44.0 L MCV (test code = MCV) 96.4 fL 81.0-99.0 MCH (test code = MCH) 31.7 pg 27.0-31.0 H MCHC (test code = MCHC) 32.9 g/dL 32.0-36.0 RDW (test code = RDW) 13.2 % 11.5-14.5 PLT (test code = PLT) 221 10\\S\\3/uL 130-400 MPV (test code = MPV) 11.3 fL 9.4-12.4 NEUTROP # (test code = NE#) 4.7 10\\S\\3/uL 1.6-8.0 LYMPH # (test code = LY#) 0.6 10\\S\\3/uL 1.1-3.5 L MONOCYTE # (test code = MO#) 0.6 10\\S\\3/uL 0.0-1.1 EOSINOPH # (test code = EO#) 0.0 10\\S\\3/uL 0.0-0.7 BASOPHIL # (test code = BA#) 0.0 10\\S\\3/uL 0.0-0.3 IG # (test code = IG#) 0.02 10\\S\\3/uL 0.00-0.06 NRBC # (test code = NRBC#) 0.00 10\\S\\3/uL 0.00-0.01 NEUTROPH % (test code = NE%) 79.3 % 35.0-73.0 H LYMPH % (test code = LY%) 10.2 % 20.0-55.0 L MONO % (test code = MO%) 10.0 % 2.5-10.0 EOSINOPH % (test code = EO%) 0.0 % 0.0-5.0 BASOPHIL % (test code = BA%) 0.2 % 0.0-2.0 IG % (test code = IG%) 0.3 % 0.0-0.8 NRBC% (test code = NRBC%) 0.0 % 0.0-0.2 MANDIFF (test code = WMDIFF) NO NO RBC MORPH (test code = NORMAL WRBCMOR) POCT GLUCOSE (AUTOMATED)2022-08-23 13:24:43 Test Item Value Reference Range Interpretation Comments POCT GLU (test code = 6506974206) 172 mg/dL 70-110 H Lab Interpretation (test code = Abnormal 84256-6) [facility] GLUCOSE (AUTOMATED)2022-08-22 02:30:58 Test Item Value Reference Range Interpretation Comments POCT GLU (test code = 2686633014) 108 mg/dL 70-110 Lab Interpretation (test code = Normal 37340-2) [facility] METABOLIC PANEL (NA, K, CL, CO2, GLUCOSE, BUN, CREATININE, CA)2022-08-21 10:33:57 Test Item Value Reference Range Interpretation Comments NA (test code = 130 mmol/L 135-145 L 7754688400) K (test code = 4.6 mmol/L 3.5-5.0 Slight 3007857059) hemolysis CL (test code = 97 mmol/L 98-108 L 6021282363) CO2 TOTAL (test code 27 mmol/L 23-31 = 4974416099) AGAP (test code = 2-16 4769992635) BUN (test code = 7 mg/dL 7-23 Slight 6254053209) hemolysis GLUCOSE (test code = 101 mg/dL 70-110 7820888055) CREATININE (test code 0.35 mg/dL 0.50-1.04 L = 4640874766) CALCIUM (test code = 8.0 mg/dL 8.6-10.6 L 9789830460) eGFR (test code = mL/min/1.73m2 7272375172) TANESHA (test code = TANESHA) Association of [...] tests). Lab Interpretation Abnormal (test code = 72296-1) [facility] METABOLIC PANEL (NA, K, CL, CO2, GLUCOSE, BUN, CREATININE, CA)2022-08-19 19:56:03 Test Item Value Reference Range Interpretation Comments NA (test code = 131 mmol/L 135-145 L 2054340605) K (test code = 4.2 mmol/L 3.5-5.0 6508589047) CL (test code = 94 mmol/L 98-108 L 4710573527) CO2 TOTAL (test code = 29 mmol/L 23-31 1480783238) AGAP (test code = 2-16 4864628317) BUN (test code = 2 mg/dL 7-23 L 0554768173) GLUCOSE (test code = 76 mg/dL 70-110 3339029324) CREATININE (test code = 0.42 mg/dL 0.50-1.04 L 7894143032) CALCIUM (test code = 8.6 mg/dL 8.6-10.6 7374083485) eGFR (test code = mL/min/1.73m2 4058146536) TANESHA (test code = TANESHA) Association of [...] tests). Lab Interpretation Abnormal (test code = 84221-7) [facility] OR [id number] 22:18:14 Test Item Value Reference Range Interpretation Comments OSMOLALITY (test code = See_Comment L [Au tomated message] 2692-2) The system [employer] generated this result transmitted ref erence range: 278 - 30 5 mOsm/kg. The reference range was not used to int erpret this result as normal/abnormal . Lab Interpretation (test Abnormal code = 06176-8) [facility] [id number] 18:35:39 Test Item Value Reference Range Interpretation Comments NT-proBNP (test code 400 pg/mL See_Comment H [Autom ated = 2205911536) message] The system which generated this result transmitted reference range : <=125. The reference range was not used to interpret this result as normal/abnormal . TANESHA (test code = TANESHA) Biotin has been reported to cause a negative bias, interpret results relative to patient's use of biotin. Lab Interpretation Abnormal (test code = 21324-5) [facility] StationTROPON[facility] [id number] 18:35:39 Test Item Value Reference Interpretation Comments Range TROPONIN I (test 0.007 ng/mL See_Comment [Automated code = 7423015327) message] The system which generated this result transmitted reference range : <=0.034. The reference range was not used to interpret this result as normal/abnormal . TANESHA (test code = Reference (Normal) TANESHA) Range (defined by the 99th percentile reference limit): <= 0.034 ng/mL Note: Cardiac troponin begins to rise 3-4 hours after the onset of ischemia. Repeat in 4-6 hours if the sample was drawn within 3-4 hours of the onset of the symptom and found normal. Diagnosis of myocardial injury is made with acute changes in cTn concentrations with at least one serial sample above the 99th percentile upper reference limit (URL), taken together with the patient's clinical presentation. Biotin has been reported to cause a negative bias, interpret results relative to patient's use of biotin. Lab Interpretation Normal (test code = 16983-9) [facility] StationAMMONIA, [id number] 18:33:53 Test Item Value Reference Range Interpretation Comments AMMONIA (test code = 9254773652) 9-33 L Lab Interpretation (test code = Abnormal 53518-9) [facility]. METABOLIC PANEL ([id number])2022-08-18 18:23:42 Test Item Value Reference Range Interpretation Comments NA (test code = 125 mmol/L 135-145 L 7268228384) K (test code = 4.2 mmol/L 3.5-5.0 Slight 7084697789) hemolysis CL (test code = 91 mmol/L 98-108 L 6667997514) CO2 TOTAL (test code 28 mmol/L 23-31 = 6821931349) AGAP (test code = 2-16 5685602558) BUN (test code = 6 mg/dL 7-23 L Slight 2753633783) hemolysis GLUCOSE (test code = 96 mg/dL 70-110 1756301357) CREATININE (test code 0.38 mg/dL 0.50-1.04 L = 6198738984) TOTAL BILI (test code 0.9 mg/dL 0.1-1.1 = 5733510859) CALCIUM (test code = 8.2 mg/dL 8.6-10.6 L 2403941477) T PROTEIN (test code 6.6 g/dL 6.3-8.2 = 5198174538) ALBUMIN (test code = 4.1 g/dL 3.5-5.0 1375151990) ALK PHOS (test code = 63 U/L 34-122 Slight 6425388194) hemolysis ALTv (test code = 18 U/L 5-35 1742-6) AST(SGOT) (test code 39 U/L 13-40 Slight = 4886687482) hemolysis eGFR (test code = mL/min/1.73m2 2757787224) TANESHA (test code = TANESHA) Association of [...] tests). Lab Interpretation Abnormal (test code = 04572-2) [facility] WITH [id number] 18:15:59 Test Item Value Reference Range Interpretation Comments WBC (test code = See_Comment L [Automated 0590-2) message] The sy stem which generated this result transmitted reference range : 4.30 - 11.10 10*3/?L. The reference range was not used to interpret this result as normal/abnormal . RBC (test code = See_Comment L [Automated 509-8) message] The sy stem which generated this result transmitted reference range : 3.93 - 5.25 10*6/?L. The reference range was not used to interpret this result as normal/abnormal . HGB (test code = 11.9 g/dL 11.6-15.0 718-7) HCT (test code = 33.7 % 35.7-45.2 L 4544-3) MCV (test code = 92.3 fL 80.6-95.5 787-2) MCH (test code = 32.6 pg 25.9-32.8 785-6) MCHC (test code = 35.3 g/dL 31.6-35.1 H 786-4) RDW-SD (test code = 47.1 fL 39.0-49.9 04842-4) RDW-CV (test code = 14.0 % 12.0-15.5 788-0) PLT (test code = See_Comment [Automated 777-3) message] The sy stem which generated this result transmitted reference range : 166 - 358 10*3/ ?L. The reference r irvin was not used to interpret this result as normal/abnormal . MPV (test code = 11.9 fL 9.5-12.9 55319-8) NRBC/100 WBC (test See_Comment [Automat ed code = 9295533616) message] The system which generated this result transmitted reference range : 0.0 - 10.0 /100 WBCs. The refer ence range was not u sed to interpret th is result as normal/abnormal . NRBC x10^3 (test code See_Comment [Auto mated = 6313992872) message] The s ystem which generated this result transmitted reference range : 10*3/?L. The reference range was not used to interpret this result as normal/abnormal . GRAN MAT (NEUT) % 72.3 % (test code = 770-8) IMM GRAN % (test code 0.30 % = 6309111840) LYMPH % (test code = 17.5 % 736-9) MONO % (test code = 8.8 % 5905-5) EOS % (test code = 0.3 % 713-8) BASO % (test code = 0.8 % 706-2) GRAN MAT x10^3(ANC) 2.90 10*3/uL 1.88-7.09 (test code = 1152464833) IMM GRAN x10^3 (test 0.00-0.06 code = 0706086992) LYMPH x10^3 (test code 0.70 10*3/uL 1.32-3.29 L = 731-0) MONO x10^3 (test code 0.35 10*3/uL 0.33-0.92 = 742-7) EOS x10^3 (test code = 0.03-0.39 L 711-2) BASO x10^3 (test code 0.03 10*3/uL 0.01-0.07 = 704-7) Lab Interpretation Abnormal (test code = 22443-8) [facility] StationGLYCOSYLATED HEMOGLOBIN (A1C)2022-08-04 04:42:34 Test Item Value Reference Range Interpretation Comments HGB A1C (test code = 5.2 % 4.0-5.7 4548-4) TANESHA (test code = TANESHA) Reference RangesNormal: <5.7%Prediabetes: 5.7 - 6.4%Diabetes: > 6.5% Lab Interpretation (test Normal code = 25278-6) [facility] StationHEPATIC FUNCTION PANEL (24764) (ALB,T.PRO,BILI T,BU/BC,ALT,AST,ALK PHOS)2022-08-03 20:51:17 Test Item Value Reference Range Interpretation Comments TOTAL BILI (test code = 1733361210) 0.3 mg/dL 0.1-1.1 BILI UNCON (test code = 0176721635) 0.3 mg/dL 0.1-1.1 BILI CONJ (test code = 4531196866) 0.0 mg/dL 0.0-0.3 T PROTEIN (test code = 3812689266) 6.0 g/dL 6.3-8.2 L ALBUMIN (test code = 5801343122) 4.1 g/dL 3.5-5.0 ALK PHOS (test code = 0295293297) 62 U/L 34-122 ALTv (test code = 1742-6) 16 U/L 5-35 AST(SGOT) (test code = 6677950581) 27 U/L 13-40 Lab Interpretation (test code = Abnormal 16353-7) [facility] METABOLIC PANEL (NA, K, CL, CO2, GLUCOSE, BUN, CREATININE, CA)2022-08-03 20:17:28 Test Item Value Reference Range Interpretation Comments NA (test code = 126 mmol/L 135-145 L 2271393686) K (test code = 3.6 mmol/L 3.5-5.0 5234033346) CL (test code = 92 mmol/L 98-108 L 0167176049) CO2 TOTAL (test code = 24 mmol/L 23-31 7733403838) AGAP (test code = 2-16 8772875099) BUN (test code = 9 mg/dL 7-23 5643270032) GLUCOSE (test code = 101 mg/dL 70-110 9767912294) CREATININE (test code = 0.52 mg/dL 0.50-1.04 5590807624) CALCIUM (test code = 8.6 mg/dL 8.6-10.6 0598789598) eGFR (test code = mL/min/1.73m2 8037058562) TANESHA (test code = TANESHA) Association of [...] tests). Lab Interpretation Abnormal (test code = 15351-0) [facility] StationLIPASE2022-10-28 20:17:28 Test Item Value Reference Range Interpretation Comments LIPASE (test code = 8214465684) 39 U/L 0-220 Lab Interpretation (test code = Normal 20820-5) [facility] StationCREATINE [id number] 20:17:08 Test Item Value Reference Range Interpretation Comments CK (test code = 0600247980) 105 U/L 33-194 Lab Interpretation (test code = Normal 99080-3) [facility] StationCB WITH [id number] 19:38:44 Test Item Value Reference Range Interpretation Comments WBC (test code = See_Comment [Automated 3890-2) message] The sy stem which generated this result transmitted reference range : 4.30 - 11.10 10*3/?L. The reference range was not used to interpret this result as normal/abnormal . RBC (test code = See_Comment L [Automated 969-8) message] The sy stem which generated this result transmitted reference range : 3.93 - 5.25 10*6/?L. The reference range was not used to interpret this result as normal/abnormal . HGB (test code = 12.2 g/dL 11.6-15.0 718-7) HCT (test code = 34.5 % 35.7-45.2 L 4544-3) MCV (test code = 90.8 fL 80.6-95.5 787-2) MCH (test code = 32.1 pg 25.9-32.8 785-6) MCHC (test code = 35.4 g/dL 31.6-35.1 H 786-4) RDW-SD (test code = 42.9 fL 39.0-49.9 52771-6) RDW-CV (test code = 13.0 % 12.0-15.5 788-0) PLT (test code = See_Comment [Automated 777-3) message] The sy stem which generated this result transmitted reference range : 166 - 358 10*3/ ?L. The reference r irvin was not used to interpret this result as normal/abnormal . MPV (test code = 11.0 fL 9.5-12.9 92568-1) NRBC/100 WBC (test See_Comment [Automat ed code = 2249492410) message] The system which generated this result transmitted reference range : 0.0 - 10.0 /100 WBCs. The refer ence range was not u sed to interpret th is result as normal/abnormal . NRBC x10^3 (test code See_Comment [Auto mated = 7082924029) message] The s ystem which generated this result transmitted reference range : 10*3/?L. The reference range was not used to interpret this result as normal/abnormal . GRAN MAT (NEUT) % 78.8 % (test code = 770-8) IMM GRAN % (test code 0.60 % = 4805184504) LYMPH % (test code = 11.7 % 736-9) MONO % (test code = 8.3 % 5905-5) EOS % (test code = 0.0 % 713-8) BASO % (test code = 0.6 % 706-2) GRAN MAT x10^3(ANC) 3.99 10*3/uL 1.88-7.09 (test code = 8083641192) IMM GRAN x10^3 (test 0.03 10*3/uL 0.00-0.06 code = 4443820096) LYMPH x10^3 (test code 0.59 10*3/uL 1.32-3.29 L = 731-0) MONO x10^3 (test code 0.42 10*3/uL 0.33-0.92 = 742-7) EOS x10^3 (test code = 0.03-0.39 L 711-2) BASO x10^3 (test code 0.03 10*3/uL 0.01-0.07 = 704-7) Lab Interpretation Abnormal (test code = 31495-9) [facility]. METABOLIC PANEL (86065)2022-07-30 04:57:34 Test Item Value Reference Range Interpretation Comments NA (test code = 129 mmol/L 135-145 L 2221096128) K (test code = 4.1 mmol/L 3.5-5 8650477114) CL (test code = 93 mmol/L 98-108 L 3880640394) CO2 TOTAL (test code = 23 mmol/L 23-31 0410024272) AGAP (test code = 2-16 1542558613) BUN (test code = 8 mg/dL 7-23 0411677603) GLUCOSE (test code = 94 mg/dL 70-110 2633132519) CREATININE (test code = 0.48 mg/dL 0.5-1.04 L 7240574417) TOTAL BILI (test code = 0.5 mg/dL 0.1-1.5 9125436625) CALCIUM (test code = 9.2 mg/dL 8.6-10.6 4196382121) T PROTEIN (test code = 6.4 g/dL 6.3-8.2 8392489512) ALBUMIN (test code = 4.4 g/dL 3.5-5 0681536493) ALK PHOS (test code = 68 U/L 34-122 0865506358) ALTv (test code = 14 U/L 5-35 1742-6) AST(SGOT) (test code = 23 U/L 13-40 9193327371) eGFR (test code = mL/min/1.73m2 6455764376) TANESHA (test code = TANESHA) Association of [...] tests). Lab Interpretation Abnormal (test code = 16594-4) [facility] StationL[facility]ASE2022-10-24 04:56:54 Test Item Value Reference Range Interpretation Comments LIPASE (test code = 2249708741) 61 U/L 0-220 Lab Interpretation (test code = Normal 18209-9) [facility] WITH [id number] 04:44:37 Test Item Value Reference Range Interpretation Comments WBC (test code = See_Comment [Automated 3290-2) message] The sy stem which generated this result transmitted reference range : 4.30 - 11.10 10*3/?L. The reference range was not used to interpret this result as normal/abnormal . RBC (test code = See_Comment L [Automated 619-8) message] The sy stem which generated this result transmitted reference range : 3.93 - 5.25 10*6/?L. The reference range was not used to interpret this result as normal/abnormal . HGB (test code = 12.4 g/dL 11.6-15 718-7) HCT (test code = 35.3 % 35.7-45.2 L 4544-3) MCV (test code = 90.7 fL 80.6-95.5 787-2) MCH (test code = 31.9 pg 25.9-32.8 785-6) MCHC (test code = 35.1 g/dL 31.6-35.1 786-4) RDW-SD (test code = 43.8 fL 39-49.9 22182-1) RDW-CV (test code = 13.2 % 12-15.5 788-0) PLT (test code = See_Comment [Automated 777-3) message] The sy stem which generated this result transmitted reference range : 166 - 358 10*3/ ?L. The reference r rivin was not used to interpret this result as normal/abnormal . MPV (test code = 10.8 fL 9.5-12.9 90058-3) NRBC/100 WBC (test See_Comment [Automat ed code = 3905923471) message] The system which generated this result transmitted reference range : 0.0 - 10.0 /100 WBCs. The refer ence range was not u sed to interpret th is result as normal/abnormal . NRBC x10^3 (test code See_Comment [Auto mated = 0290463612) message] The s ystem which generated this result transmitted reference range : 10*3/?L. The reference range was not used to interpret this result as normal/abnormal . GRAN MAT (NEUT) % 72.5 % (test code = 770-8) IMM GRAN % (test code 0.40 % = 1127692861) LYMPH % (test code = 16.2 % 736-9) MONO % (test code = 10.3 % 5905-5) EOS % (test code = 0.0 % 713-8) BASO % (test code = 0.6 % 706-2) GRAN MAT x10^3(ANC) 3.81 10*3/uL 1.88-7.09 (test code = 5495308683) IMM GRAN x10^3 (test 0-0.06 code = 2961123067) LYMPH x10^3 (test code 0.85 10*3/uL 1.32-3.29 L = 731-0) MONO x10^3 (test code 0.54 10*3/uL 0.33-0.92 = 742-7) EOS x10^3 (test code = 0.03-0.39 L 711-2) BASO x10^3 (test code 0.03 10*3/uL 0.01-0.07 = 704-7) Lab Interpretation Abnormal (test code = 73796-9) [facility] StationBL[facility] C[facility] [id number] 20:01:22 Test Item Value Reference Range Interpretation Comments Blood Culture-Aerobic No organisms No growth Previo us (test code = 10006-5) isolated prelim inary verified result was Culture In Progress on 01/26/2022 at 18 01 CDTPrevious preliminary verified result was No growth a t 24 hours on 01/27/2022 at 15 01 CDTPrevious preliminary verified result was No growth a t 48 hours on 01/28/2022 at 15 01 CDTPrevious preliminary verified result was No growth a t 72 hours on 01/29/2022 at 15 01 CDT Blood No organisms No growth Previous Culture-Anaerobic isolated preliminar y (test code = 65374-7) verifi ed result was Culture In Progress on 01/26/2022 at 18 01 CDTPrevious preliminary verified result was No growth a t 24 hours on 01/27/2022 at 15 CDTPrevious preliminary verified result was No growth a t 48 hours on 01/28/2022 at 15 CDTPrevious preliminary verified result was No growth a t 72 hours on 01/29/2022 at 15 CDT Lab Interpretation Normal (test code = 32583-5) [facility] [id number] 20:01:22 Test Item Value Reference Range Interpretation Comments Blood Culture-Aerobic No organisms No growth Previo us (test code = 68614-7) isolated prelim inary verified result was Culture In Progress on 01/26/2022 at 18 CDTPrevious preliminary verified result was No growth a t 24 hours on 01/27/2022 at 15 CDTPrevious preliminary verified result was No growth a t 48 hours on 01/28/2022 at 15 CDTPrevious preliminary verified result was No growth a t 72 hours on 01/29/2022 at 15 01 CDT Blood No organisms No growth Previous Culture-Anaerobic isolated preliminar y (test code = 58103-6) verifi ed result was Culture In Progress on 01/26/2022 at 18 01 CDTPrevious preliminary verified result was No growth a t 24 hours on 01/27/2022 at 15 CDTPrevious preliminary verified result was No growth a t 48 hours on 01/28/2022 at 15 CDTPrevious preliminary verified result was No growth a t 72 hours on 01/29/2022 at 15 01 CDT Lab Interpretation Normal (test code = 41688-5) [facility] StationVITAMIN B6, [id number] 12:40:21 Test Item Value Reference Range Interpretation Comments VIT B6 (test code = 16.8 nmol/L 20.0-125.0 L INTERPRE TIVE 14233-2) INFORMATION: Vi tamin B6 (Pyridoxal 5-Phosphate) Pyridoxal 5'-phosphate me asured in a specimen collected follo wing an 8-hour or overnight fast accurately josh cates vitamin B6 nutritional sta tus. Non-fasting spe cimen concentration reflects recent vitamin intake. This test was develo ped and its perform ance characteristics determined by A [facility]. I t has not been cleare d or approved by the [place] Food and Drug Administration. This test was perfor med in a CLIA certifie d laboratory and is intended for cl inical purposes.Perfor med By: [employer] [place] [address] [id number] Director: Sherry Murillo MD Lab Interpretation Abnormal (test code = 66508-4) [facility] WITH [id number] 11:34:15 Test Item Value Reference Range Interpretation Comments WBC (test code = See_Comment L [Automated 6990-2) message] The sy stem which generated this result transmitted reference range : 4.30 - 11.10 10*3/?L. The reference range was not used to interpret this result as normal/abnormal . RBC (test code = See_Comment L [Automated 339-8) message] The sy stem which generated this result transmitted reference range : 3.93 - 5.25 10*6/?L. The reference range was not used to interpret this result as normal/abnormal . HGB (test code = 10.9 g/dL 11.6-15.0 L 718-7) HCT (test code = 32.7 % 35.7-45.2 L 4544-3) MCV (test code = 94.5 fL 80.6-95.5 787-2) MCH (test code = 31.5 pg 25.9-32.8 785-6) MCHC (test code = 33.3 g/dL 31.6-35.1 786-4) RDW-SD (test code = 46.2 fL 39.0-49.9 65236-1) RDW-CV (test code = 13.5 % 12.0-15.5 788-0) PLT (test code = See_Comment [Automated 777-3) message] The sy stem which generated this result transmitted reference range : 166 - 358 10*3/ ?L. The reference r irvin was not used to interpret this result as normal/abnormal . MPV (test code = 12.2 fL 9.5-12.9 29107-0) NRBC/100 WBC (test See_Comment [Automat ed code = 7756347566) message] The system which generated this result transmitted reference range : 0.0 - 10.0 /100 WBCs. The refer ence range was not u sed to interpret th is result as normal/abnormal . NRBC x10^3 (test code <0.01 See_Comment [Auto mated = 2441836757) message] The s ystem which generated this result transmitted reference range : 10*3/?L. The reference range was not used to interpret this result as normal/abnormal . GRAN MAT (NEUT) % 48.1 % (test code = 770-8) IMM GRAN % (test code 0.30 % = 4611608189) LYMPH % (test code = 30.1 % 736-9) MONO % (test code = 14.9 % 5905-5) EOS % (test code = 5.0 % 713-8) BASO % (test code = 1.6 % 706-2) GRAN MAT x10^3(ANC) 1.55 10*3/uL 1.88-7.09 L (test code = 6697311687) IMM GRAN x10^3 (test <0.03 0.00-0.06 code = 4359262319) LYMPH x10^3 (test code 0.97 10*3/uL 1.32-3.29 L = 731-0) MONO x10^3 (test code 0.48 10*3/uL 0.33-0.92 = 742-7) EOS x10^3 (test code = 0.16 10*3/uL 0.03-0.39 711-2) BASO x10^3 (test code 0.05 10*3/uL 0.01-0.07 = 704-7) Lab Interpretation Abnormal (test code = 31537-0) [facility] Test Item Value Reference Range Interpretation Comments MAGNESIUM (test code = 9805920699) 1.8 mg/dL 1.7-2.4 Lab Interpretation (test code = Normal 79764-9) [facility] METABOLIC PANEL (NA, K, CL, CO2, GLUCOSE, BUN, CREATININE, CA)2022-01-29 11:25:32 Test Item Value Reference Range Interpretation Comments NA (test code = 138 mmol/L 135-145 8079349029) K (test code = 3.3 mmol/L 3.5-5.0 L 1018706261) CL (test code = 104 mmol/L 98-108 4079821791) CO2 TOTAL (test code = 30 mmol/L 23-31 2413447063) AGAP (test code = 2-16 3473571846) BUN (test code = 6 mg/dL 7-23 L 1951167528) GLUCOSE (test code = 89 mg/dL 70-110 6153702989) CREATININE (test code = 0.49 mg/dL 0.50-1.04 L 4257353841) CALCIUM (test code = 8.6 mg/dL 8.6-10.6 6883779977) eGFR (test code = mL/min/1.73m2 9599522387) TANESHA (test code = TANESHA) Association of [...] tests). Lab Interpretation Abnormal (test code = 91977-4) [facility], [id number] 17:02:55 Test Item Value Reference Range Interpretation Comments ZINC (test code = 88 ug/dL 60.0-120.0 INTERPRETI VE INFORMATION: 5763-8) Zinc, Serum or Plasma Elevated result s may be due to skin or collection-rela carol contamination, including the use of a noncer tified metal-free collection/haider sport tube. If contaminatio n concerns exist due to el evated levels of serum/plasma zinc, confirmation wi th a second specimen collec carol in a certified metal -free tube is recommended. Ci rculating zinc concentrat ions are dependent on al bumin status and are depress ed with malnutrition. ? Zinc may also be lowered with infection, inflammation, s tress, oral contraceptives, and . ?Zin c may be elevated with z inc supplementation or fasting. ?Elevated zinc concentrations may interfere with copper abs orption. This test was develo ped and its performance wen racteristics determined by A [facility]. I t has not been cleared or approved by the [place] Food and Drug Administration. This test was performed i n a CLIA certified labor atory and is intended for cl inical purposes.Perfor med By: [address] [id number] Director: Sherry Murillo MD [facility], [id number] 17:02:54 Test Item Value Reference Range Interpretation Comments COPPER (test code 126.6 ug/dL 80.0-155.0 INTERPRETI VE INFORMATION: = 5631-7) Copper, Serum o r Plasma Elevated result s may be due to skin or collection-rela carol contamination, including the use of a no ncertified metal-free collection/haider sport tube. If contam ination concerns exist due to elevated levels of serum/plasma co pper, confirmation wi th a second specimen collected in a certified metal-free tube is recomme nded. Serum copper ma y be elevated with i nfection, inflammation, s tress, and copper suppleme ntation. In females, barbara vated copper may also be caused by oral contrac eptives and (concentrations may be elevated up to 3 times normal during t he third trimester). Thi s test was developed and i ts performance characteristics determined by A [facility]. I t has not been cleared or approved by the [place] Food and Drug Administration. This test was performed i n a CLIA certified labor atory and is intended for clinical purposes.Perfor med By: [facility] [address] [id number] aboratory Director: Sherry Murillo MD [facility] StationVITAMIN B1 (THIAMINE), WHOLE [id number] 16:54:01 Test Item Value Reference Range Interpretation Comments Vitamin B1, Whole 142 nmol/L 70-180 INTERPRETI VE INFORMATION: Blood (test code = Vitamin B 1, Whole Blood 66807-3) This assay jessica ures the concentration o f thiamine diphosphate (TD P), the primary active form of vitamin B1. David roximately 90 percent of v itamin B1 present in whol e blood is TDP. Thiamine a nd thiamine monoph osphate, which comprise the remaining 10 pe rcent, are not measured. T his test was developed a nd its performance characteristics determined by A [facility]. I t has not been cleared or approved by the [place] Food and Drug Administration. This test was performed i n a CLIA certified labor atory and is intended for clinical purposes.Perfor med By: [facility] [address], [place] [address]M aboratory Director: Sherry Murillo MD [facility] StationBAS[facility] METABOLIC PANEL (NA, K, CL, CO2, GLUCOSE, BUN, CREATININE, CA)2022-01-27 11:09:42 Test Item Value Reference Range Interpretation Comments NA (test code = 136 mmol/L 135-145 3240034643) K (test code = 3.9 mmol/L 3.5-5.0 Slight 8140281656) hemolysis CL (test code = 103 mmol/L 98-108 2907088985) CO2 TOTAL (test code 28 mmol/L 23-31 = 8162759323) AGAP (test code = 2-16 9671625155) BUN (test code = 12 mg/dL 7-23 Slight 6467685784) hemolysis GLUCOSE (test code = 94 mg/dL 70-110 5779940584) CREATININE (test code 0.40 mg/dL 0.50-1.04 L = 9425291312) CALCIUM (test code = 8.3 mg/dL 8.6-10.6 L 9448774370) eGFR (test code = mL/min/1.73m2 3229675464) TANESHA (test code = TANESHA) Association of [...] tests). Lab Interpretation Abnormal (test code = 44984-1) [facility] StationMAGNESIUM2022-04-23 11:09:42 Test Item Value Reference Range Interpretation Comments MAGNESIUM (test code = 8506623667) 1.9 mg/dL 1.7-2.4 Lab Interpretation (test code = Normal 15392-7) [facility] WITH [id number] 10:50:15 Test Item Value Reference Range Interpretation Comments [...] as normal/abnormal . HGB (test code = 10.7 g/dL 11.6-15.0 L 718-7) HCT (test code = 31.6 % 35.7-45.2 L 4544-3) MCV (test code = 94.9 fL 80.6-95.5 787-2) MCH (test code = 32.1 pg 25.9-32.8 785-6) MCHC (test code = 33.9 g/dL 31.6-35.1 786-4) RDW-SD (test code = 47.3 fL 39.0-49.9 14238-6) RDW-CV (test code = 13.6 % 12.0-15.5 788-0) PLT (test code = See_Comment [Automated 777-3) message] The sy stem which generated this result transmitted reference range : 166 - 358 10*3/ ?L. The reference r irvin was not used to interpret this result as normal/abnormal . MPV (test code = 11.9 fL 9.5-12.9 67995-8) NRBC/100 WBC (test See_Comment [Automat ed code = 0007261795) message] The system which generated this result transmitted reference range : 0.0 - 10.0 /100 WBCs. The refer ence range was not u sed to interpret th is result as normal/abnormal . NRBC x10^3 (test code <0.01 See_Comment [Auto mated = 5998532264) message] The s ystem which generated this result transmitted reference range : 10*3/?L. The reference range was not used to interpret this result as normal/abnormal . GRAN MAT (NEUT) % 75.3 % (test code = 770-8) IMM GRAN % (test code 0.40 % = 5946861681) LYMPH % (test code = 12.2 % 736-9) MONO % (test code = 9.0 % 5905-5) EOS % (test code = 2.4 % 713-8) BASO % (test code = 0.7 % 706-2) GRAN MAT x10^3(ANC) 6.31 10*3/uL 1.88-7.09 (test code = 2176545007) IMM GRAN x10^3 (test 0.03 10*3/uL 0.00-0.06 code = 8607033097) LYMPH x10^3 (test code 1.02 10*3/uL 1.32-3.29 L = 731-0) MONO x10^3 (test code 0.75 10*3/uL 0.33-0.92 = 742-7) EOS x10^3 (test code = 0.20 10*3/uL 0.03-0.39 711-2) BASO x10^3 (test code 0.06 10*3/uL 0.01-0.07 = 704-7) Lab Interpretation Abnormal (test code = 21546-1) [facility] CULTURE [id number] 19:44:37 Test Item Value Reference Range Interpretation Comments Blood Culture Staphylococcus For suscepti bility Workup (test epidermidis results, refer to code = 600-7) culture # - [id number] anism identified by Phil Mitchell is a corrected resul t. ?Previous resul t was Coagulase negat annetta Staphylococcus on 01/24/2022 at 14 58 CDT Gram stain Isolated from aerobic (test code = bottle Gram positive 664-3) [facility] - Peripheral # [id number] 14:02:36 Test Item Value Reference Range Interpretation Comments Blood Culture-Aerobic No organisms No growth Previo us (test code = 80785-9) isolated prelim inary verified result was Culture In Progress on 01/22/2022 at 17 01 CDTPrevious preliminary verified result was No growth a t 24 hours on 01/24/2022 at 10 53 CDT Blood Culture positive. No growth AA Previous Culture-Anaerobic See Blood Culture preli minary (test code = 51849-2) Workup for verifi ed result additional was Culture In information. Progress on 01/22/2022 at 17 01 CDTPrevious preliminary verified result was No growth a t 24 hours on 01/23/2022 at 14 01 CDT Lab Interpretation Abnormal (test code = 78870-0) [facility] Station[facility]ERULOPLASMIN2022-04-21 15:05:49 Test Item Value Reference Range Interpretation Comments CERULO (test code = 1653526371) 37 mg/dL 25-63 Lab Interpretation (test code = Normal 76068-9) [facility] METABOLIC PANEL (NA, K, CL, CO2, GLUCOSE, BUN, CREATININE, CA)2022-01-25 09:07:05 Test Item Value Reference Range Interpretation Comments NA (test code = 135 mmol/L 135-145 8216111946) K (test code = 4.1 mmol/L 3.5-5.0 5030037416) CL (test code = 104 mmol/L 98-108 2269545358) CO2 TOTAL (test code = 30 mmol/L 23-31 1300208883) AGAP (test code = 2-16 L 4623744148) BUN (test code = 12 mg/dL 7-23 0516137473) GLUCOSE (test code = 86 mg/dL 70-110 5993001645) CREATININE (test code = 0.45 mg/dL 0.50-1.04 L 1349022824) CALCIUM (test code = 8.5 mg/dL 8.6-10.6 L 8604496315) eGFR (test code = mL/min/1.73m2 7980114390) TANESHA (test code = TANESHA) Association of [...] tests). Lab Interpretation Abnormal (test code = 62631-2) [facility]2022-04-21 09:03:44 Test Item Value Reference Range Interpretation Comments MAGNESIUM (test code = 3318181202) 2.0 mg/dL 1.7-2.4 Lab Interpretation (test code = Normal 00334-1) [facility] StationVITAMIN B12, [id number] 01:27:16 Test Item Value Reference Range Interpretation Comments VIT B12 (test code = 497 pg/mL 240-930 0902707113) TANESHA (test code = TANESHA) Biotin has been reported to cause a positive bias, interpret results relative to patient's use of biotin. Lab Interpretation (test Normal code = 66784-0) [facility]2022-04-21 01:27:16 Test Item Value Reference Range Interpretation Comments FOLATE SER (test code = 9862013417) 8.5 ng/mL 3.0-20.0 Lab Interpretation (test code = Normal 47340-8) [facility] StationBlood Culture - Peripheral # [id number] 19:58:22 Test Item Value Reference Range Interpretation Comments Blood Culture-Aerobic Culture positive. No growth AA P revious (test code = 42620-4) See Blood Culture p reliminary Workup for verified result additional was Culture In information. Progress on 01/22/2022 at 17 01 CDT Blood No organisms No growth Previous Culture-Anaerobic isolated preliminar y (test code = 90597-6) verifi ed result was Culture In Progress on 01/22/2022 at 17 01 CDT Lab Interpretation Abnormal (test code = 01676-6) [facility] WITH [id number] 10:29:00 Test Item Value Reference Range Interpretation Comments [...] as normal/abnormal . HGB (test code = 10.6 g/dL 11.6-15.0 L 718-7) HCT (test code = 32.3 % 35.7-45.2 L 4544-3) MCV (test code = 94.7 fL 80.6-95.5 787-2) MCH (test code = 31.1 pg 25.9-32.8 785-6) MCHC (test code = 32.8 g/dL 31.6-35.1 786-4) RDW-SD (test code = 46.2 fL 39.0-49.9 28409-3) RDW-CV (test code = 13.2 % 12.0-15.5 788-0) PLT (test code = See_Comment [Automated 777-3) message] The sy stem which generated this result transmitted reference range : 166 - 358 10*3/ ?L. The reference r irvin was not used to interpret this result as normal/abnormal . MPV (test code = 11.7 fL 9.5-12.9 54829-9) NRBC/100 WBC (test See_Comment [Automat ed code = 5398147638) message] The system which generated this result transmitted reference range : 0.0 - 10.0 /100 WBCs. The refer ence range was not u sed to interpret th is result as normal/abnormal . NRBC x10^3 (test code <0.01 See_Comment [Auto mated = 2370822573) message] The s ystem which generated this result transmitted reference range : 10*3/?L. The reference range was not used to interpret this result as normal/abnormal . GRAN MAT (NEUT) % 43.0 % (test code = 770-8) IMM GRAN % (test code 0.30 % = 7575614007) LYMPH % (test code = 33.3 % 736-9) MONO % (test code = 10.5 % 5905-5) EOS % (test code = 11.4 % 713-8) BASO % (test code = 1.5 % 706-2) GRAN MAT x10^3(ANC) 1.43 10*3/uL 1.88-7.09 L (test code = 2951574648) IMM GRAN x10^3 (test <0.03 0.00-0.06 code = 9194075091) LYMPH x10^3 (test code 1.11 10*3/uL 1.32-3.29 L = 731-0) MONO x10^3 (test code 0.35 10*3/uL 0.33-0.92 = 742-7) EOS x10^3 (test code = 0.38 10*3/uL 0.03-0.39 711-2) BASO x10^3 (test code 0.05 10*3/uL 0.01-0.07 = 704-7) Lab Interpretation Abnormal (test code = 00054-3) [facility] METABOLIC PANEL (NA, K, CL, CO2, GLUCOSE, BUN, CREATININE, CA)2022-01-24 10:23:02 Test Item Value Reference Range Interpretation Comments NA (test code = 133 mmol/L 135-145 L 1189584493) K (test code = 3.2 mmol/L 3.5-5.0 L 5243561025) CL (test code = 101 mmol/L 98-108 8982567431) CO2 TOTAL (test code = 29 mmol/L 23-31 0954312244) AGAP (test code = 2-16 7994383293) BUN (test code = 8 mg/dL 7-23 0803367412) GLUCOSE (test code = 83 mg/dL 70-110 2801927732) CREATININE (test code = 0.41 mg/dL 0.50-1.04 L 1478581898) CALCIUM (test code = 8.5 mg/dL 8.6-10.6 L 4573438537) eGFR (test code = mL/min/1.73m2 8346514451) TANESHA (test code = TANESHA) Association of [...] tests). Lab Interpretation Abnormal (test code = 29580-4) [facility] StationMAG[facility]IUM2022-04-20 10:23:02 Test Item Value Reference Range Interpretation Comments MAGNESIUM (test code = 7023116218) 2.0 mg/dL 1.7-2.4 Lab Interpretation (test code = Normal 90464-4) [facility] StationGRAM POSITIVE BLOOD PATHOGENS DNA [id number] 03:06:21 Test Item Value Reference Range Interpretation Comments Coagulase Negative Positive Negative, See A Staphylococcus (test Comment/Narrative code = 45267-3) TANESHA (test code = TANESHA) Coagulase negative Staphylococcus (CoNS) detected by DNA probe. ?CoNS often contaminate blood cultures from skin colonization during phlebotomy. ?Preferred management is to repeat blood cultures, and monitor off antibiotics. ?Contamination is suggested by culture growth after 48 hours, or growth in single culture (i.e., one of two sets). ?True bacteremia is suggested by the fever, hypotension, and leukocytosis that are not explained by an alternative infection, or indwelling foreign devices that appear infected (catheters, lines, or prostheses). Consider Infectious Diseases consultation if differentiation of CoNS bacteremia from contamination is uncertain. If clinical context suggests true bacteremia, preferred therapy is vancomycin. Please contact the Antimicrobial Stewardship Program with questions.Pager: ?[phone] Testing included eleven identification and three resistance marker targets. Lab Interpretation Abnormal (test code = 79380-5) [facility] StationSEDIMENTATION [id number] 03:34:51 Test Item Value Reference Range Interpretation Comments ESR (test code = See_Comment [Automated message] 0974087163) The system [employer] generated this result transmitted ref erence range: 0 - 20 m m/HR. The reference r irvin was not used to interpret this result as normal/abnor mal. Lab Interpretation (test Normal code = 05449-9) [facility] StationTROPONIN [id number] 23:55:36 Test Item Value Reference Interpretation Comments Range TROPONIN I (test 0.003 ng/mL See_Comment [Automated code = 0637965833) message] The system which generated this result transmitted reference range : <=0.034. The reference range was not used to interpret this result as normal/abnormal . TANESHA (test code = Reference (Normal) TANESHA) Range (defined by the 99th percentile reference limit): <= 0.034 ng/mL Note: Cardiac troponin begins to rise 3-4 hours after the onset of ischemia. Repeat in 4-6 hours if the sample was drawn within 3-4 hours of the onset of the symptom and found normal. Diagnosis of myocardial injury is made with acute changes in cTn concentrations with at least one serial sample above the 99th percentile upper reference limit (URL), taken together with the patient's clinical presentation. Biotin has been reported to cause a negative bias, interpret results relative to patient's use of biotin. Lab Interpretation Normal (test code = 43035-8) [facility] WITH [id number] 19:21:01 Test Item Value Reference Range Interpretation Comments [...] as normal/abnormal . HGB (test code = 12.0 g/dL 11.6-15.0 718-7) HCT (test code = 36.6 % 35.7-45.2 4544-3) MCV (test code = 96.6 fL 80.6-95.5 H 787-2) MCH (test code = 31.7 pg 25.9-32.8 785-6) MCHC (test code = 32.8 g/dL 31.6-35.1 786-4) RDW-SD (test code = 47.9 fL 39.0-49.9 49774-2) RDW-CV (test code = 13.5 % 12.0-15.5 788-0) PLT (test code = See_Comment [Automated 777-3) message] The sy stem which generated this result transmitted reference range : 166 - 358 10*3/ ?L. The reference r irvin was not used to interpret this result as normal/abnormal . MPV (test code = 12.5 fL 9.5-12.9 77961-3) NRBC/100 WBC (test See_Comment [Automat ed code = 8502583558) message] The system which generated this result transmitted reference range : 0.0 - 10.0 /100 WBCs. The refer ence range was not u sed to interpret th is result as normal/abnormal . NRBC x10^3 (test code <0.01 See_Comment [Auto mated = 3924540571) message] The s ystem which generated this result transmitted reference range : 10*3/?L. The reference range was not used to interpret this result as normal/abnormal . GRAN MAT (NEUT) % 54.8 % (test code = 770-8) IMM GRAN % (test code 0.50 % = 3653237600) LYMPH % (test code = 28.8 % 736-9) MONO % (test code = 10.7 % 5905-5) EOS % (test code = 4.1 % 713-8) BASO % (test code = 1.1 % 706-2) GRAN MAT x10^3(ANC) 1.99 10*3/uL 1.88-7.09 (test code = 5782545610) IMM GRAN x10^3 (test <0.03 0.00-0.06 code = 5607966955) LYMPH x10^3 (test code 1.05 10*3/uL 1.32-3.29 L = 731-0) MONO x10^3 (test code 0.39 10*3/uL 0.33-0.92 = 742-7) EOS x10^3 (test code = 0.15 10*3/uL 0.03-0.39 711-2) BASO x10^3 (test code 0.04 10*3/uL 0.01-0.07 = 704-7) Lab Interpretation Abnormal (test code = 10786-3) [facility] StationCOMP. METABOLIC PANEL ([id number])2022-01-22 18:52:48 Test Item Value Reference Range Interpretation Comments NA (test code = 138 mmol/L 135-145 7191462296) K (test code = 4.0 mmol/L 3.5-5.0 4712166739) CL (test code = 100 mmol/L 98-108 8211676743) CO2 TOTAL (test code = 31 mmol/L 23-31 8105649765) AGAP (test code = 2-16 6420139047) BUN (test code = 17 mg/dL 7-23 0015747761) GLUCOSE (test code = 96 mg/dL 70-110 0255035970) CREATININE (test code = 0.43 mg/dL 0.50-1.04 L 8575017356) TOTAL BILI (test code = 0.4 mg/dL 0.1-1.0 1568034898) CALCIUM (test code = 8.7 mg/dL 8.6-10.6 1617372232) T PROTEIN (test code = 6.6 g/dL 6.3-8.2 0294491302) ALBUMIN (test code = 4.4 g/dL 3.5-5.0 5868548544) ALK PHOS (test code = 77 U/L 34-122 0202945175) ALTv (test code = 17 U/L 5-35 1742-6) AST(SGOT) (test code = 42 U/L 13-40 H 8363619751) eGFR (test code = mL/min/1.73m2 1788952873) TANESHA (test code = TANESHA) Association of [...] tests). Lab Interpretation Abnormal (test code = 77374-5) [facility] StationMAG[facility]ESIUM2022-04-18 18:52:48 Test Item Value Reference Range Interpretation Comments MAGNESIUM (test code = 2640902203) 2.0 mg/dL 1.7-2.4 Lab Interpretation (test code = Normal 50546-6) [facility] WITH [id number] 14:02:35 Test Item Value Reference Range Interpretation Comments [...] as normal/abnormal . HGB (test code = 11.3 g/dL 11.6-15.0 L 718-7) HCT (test code = 33.5 % 35.7-45.2 L 4544-3) MCV (test code = 94.6 fL 80.6-95.5 787-2) MCH (test code = 31.9 pg 25.9-32.8 785-6) MCHC (test code = 33.7 g/dL 31.6-35.1 786-4) RDW-SD (test code = 46.5 fL 39.0-49.9 14169-2) RDW-CV (test code = 13.3 % 12.0-15.5 788-0) PLT (test code = See_Comment [Automated 777-3) message] The sy stem which generated this result transmitted reference range : 166 - 358 10*3/ ?L. The reference r irvin was not used to interpret this result as normal/abnormal . MPV (test code = 12.3 fL 9.5-12.9 20868-9) NRBC/100 WBC (test See_Comment [Automat ed code = 9685971116) message] The system which generated this result transmitted reference range : 0.0 - 10.0 /100 WBCs. The refer ence range was not u sed to interpret th is result as normal/abnormal . NRBC x10^3 (test code <0.01 See_Comment [Auto mated = 4025877389) message] The s ystem which generated this result transmitted reference range : 10*3/?L. The reference range was not used to interpret this result as normal/abnormal . GRAN MAT (NEUT) % 39.0 % (test code = 770-8) IMM GRAN % (test code 0.30 % = 6825064956) LYMPH % (test code = 37.7 % 736-9) MONO % (test code = 11.2 % 5905-5) EOS % (test code = 10.7 % 713-8) BASO % (test code = 1.1 % 706-2) GRAN MAT x10^3(ANC) 1.43 10*3/uL 1.88-7.09 L (test code = 5511536280) IMM GRAN x10^3 (test <0.03 0.00-0.06 code = 1184325917) LYMPH x10^3 (test code 1.38 10*3/uL 1.32-3.29 = 731-0) MONO x10^3 (test code 0.41 10*3/uL 0.33-0.92 = 742-7) EOS x10^3 (test code = 0.39 10*3/uL 0.03-0.39 711-2) BASO x10^3 (test code 0.04 10*3/uL 0.01-0.07 = 704-7) Lab Interpretation Abnormal (test code = 97172-5) [facility] StationCOMP[facility] METABOLIC PANEL (78094)2022-01-19 12:13:22 Test Item Value Reference Range Interpretation Comments NA (test code = 133 mmol/L 135-145 L 8577415827) K (test code = 3.8 mmol/L 3.5-5.0 8417866455) CL (test code = 99 mmol/L 98-108 4323649733) CO2 TOTAL (test code = 25 mmol/L 23-31 0094103303) AGAP (test code = 2-16 9433304896) BUN (test code = 9 mg/dL 7-23 2031448276) GLUCOSE (test code = 82 mg/dL 70-110 5314427109) CREATININE (test code = 0.46 mg/dL 0.50-1.04 L 9519154982) TOTAL BILI (test code = 0.8 mg/dL 0.1-1.3 4956597406) CALCIUM (test code = 8.5 mg/dL 8.6-10.6 L 4293979916) T PROTEIN (test code = 6.3 g/dL 6.3-8.2 8332291901) ALBUMIN (test code = 3.8 g/dL 3.5-5.0 3192557680) ALK PHOS (test code = 71 U/L 34-122 4184431547) ALTv (test code = 13 U/L 5-35 2-6) AST(SGOT) (test code = 34 U/L 13-40 9268176166) eGFR (test code = mL/min/1.73m2 2893972401) TANESHA (test code = TANESHA) Association of [...] tests). Lab Interpretation Abnormal (test code = 55695-8) [facility] OR FIDE ONLY - [id number] 06:44:05 Test Item Value Reference Range Interpretation Comments RPR (Qualitative) (test code = Nonreactive Nonreactive 78797-6) Lab Interpretation (test code = Normal 39867-7) [facility] OR FIDE ONLY - [id number] 06:43:50 Test Item Value Reference Range Interpretation Comments RPR (Qualitative) (test code = Nonreactive Nonreactive 15923-6) Lab Interpretation (test code = Normal 59253-1) [facility] GLUCOSE (AUTOMATED)2022-01-17 22:09:50 Test Item Value Reference Range Interpretation Comments POCT GLU (test code = 7298115633) 141 mg/dL 70-110 H Lab Interpretation (test code = Abnormal 47824-5) [facility] Station[facility]2022-04-13 19:07:46 Test Item Value Reference Range Interpretation Comments FOLATE SER (test code = 13.0 ng/mL 3.0-20.0 Slig ht hemolysis 0347928238) Lab Interpretation (test Normal code = 60101-9) [facility] GLUCOSE (AUTOMATED)2022-01-17 16:44:49 Test Item Value Reference Range Interpretation Comments POCT GLU (test code = 5145134901) 155 mg/dL 70-110 H Lab Interpretation (test code = Abnormal 64225-2) [facility] StationVITAMIN B12, [id number] 16:23:50 Test Item Value Reference Range Interpretation Comments VIT B12 (test code = 611 pg/mL 240-930 4964640027) TANESHA (test code = TANESHA) Biotin has been reported to cause a positive bias, interpret results relative to patient's use of biotin. Lab Interpretation (test Normal code = 11164-8) [facility] GLUCOSE (AUTOMATED)2022-01-17 13:06:35 Test Item Value Reference Range Interpretation Comments POCT GLU (test code = 6442773742) 74 mg/dL 70-110 Lab Interpretation (test code = Normal 65964-4) [facility] StationTHYROID STIMULATING [id number] 12:43:02 Test Item Value Reference Range Interpretation Comments TSH (test code = See_Comment Biotin has been 0860867636) reported to cau se a negative bias, interpret resul ts relative to pat yasmeen's use of biotin. [Automated mess age] The system [employer] generated this result transmitted ref erence range: 0.45 - 4 .70 mIU/L. The refe rence range was not u sed to interpret this result as normal/abnor mal. Lab Interpretation (test Normal code = 59236-4) [facility] [id number] 12:28:41 Test Item Value Reference Range Interpretation Comments FREE T4 (test code = See_Comment [Autom ated message] 6893593557) The system [employer] generated this result transmitted ref erence range: 0.78 - 2 .20 ng/dL:. The ref erence range was not u sed to interpret this result as normal/abnor mal. Lab Interpretation (test Normal code = 62779-2) [facility] with [id number] 12:25:00 Test Item Value Reference Range Interpretation Comments WBC (test code = See_Comment L [Automated 4990-2) message] The sy stem which generated this result transmitted reference range : 4.30 - 11.10 10*3/?L. The reference range was not used to interpret this result as normal/abnormal . RBC (test code = See_Comment L [Automated 889-8) message] The sy stem which generated this result transmitted reference range : 3.93 - 5.25 10*6/?L. The reference range was not used to interpret this result as normal/abnormal . HGB (test code = 12.4 g/dL 11.6-15.0 718-7) HCT (test code = 37.3 % 35.7-45.2 4544-3) MCV (test code = 95.2 fL 80.6-95.5 787-2) MCH (test code = 31.6 pg 25.9-32.8 785-6) MCHC (test code = 33.2 g/dL 31.6-35.1 786-4) RDW-SD (test code = 46.0 fL 39.0-49.9 11650-7) RDW-CV (test code = 13.2 % 12.0-15.5 788-0) PLT (test code = See_Comment [Automated 777-3) message] The sy stem which generated this result transmitted reference range : 166 - 358 10*3/ ?L. The reference r irvin was not used to interpret this result as normal/abnormal . MPV (test code = 12.9 fL 9.5-12.9 07259-4) NRBC/100 WBC (test See_Comment [Automat ed code = 4765295127) message] The system which generated this result transmitted reference range : 0.0 - 10.0 /100 WBCs. The refer ence range was not u sed to interpret th is result as normal/abnormal . NRBC x10^3 (test code <0.01 See_Comment [Auto mated = 4354757722) message] The s ystem which generated this result transmitted reference range : 10*3/?L. The reference range was not used to interpret this result as normal/abnormal . GRAN MAT (NEUT) % 46.6 % (test code = 770-8) IMM GRAN % (test code 0.30 % = 1452646736) LYMPH % (test code = 32.0 % 736-9) MONO % (test code = 12.2 % 5905-5) EOS % (test code = 7.4 % 713-8) BASO % (test code = 1.5 % 706-2) GRAN MAT x10^3(ANC) 1.84 10*3/uL 1.88-7.09 L (test code = 3001112171) IMM GRAN x10^3 (test <0.03 0.00-0.06 code = 5511190738) LYMPH x10^3 (test code 1.26 10*3/uL 1.32-3.29 L = 731-0) MONO x10^3 (test code 0.48 10*3/uL 0.33-0.92 = 742-7) EOS x10^3 (test code = 0.29 10*3/uL 0.03-0.39 711-2) BASO x10^3 (test code 0.06 10*3/uL 0.01-0.07 = 704-7) Lab Interpretation Abnormal (test code = 98097-9) [facility] (NA, K, CL, CO2, GLUCOSE, BUN, CREATININE, CA)2022-01-17 12:18:02 Test Item Value Reference Range Interpretation Comments NA (test code = 137 mmol/L 135-145 7906358401) K (test code = 3.8 mmol/L 3.5-5.0 6698805492) CL (test code = 99 mmol/L 98-108 9845918759) CO2 TOTAL (test code = 28 mmol/L 23-31 2153866876) AGAP (test code = 2-16 2360312923) BUN (test code = 6 mg/dL 7-23 L 8764906253) GLUCOSE (test code = 68 mg/dL 70-110 L 1119152019) CREATININE (test code = 0.44 mg/dL 0.50-1.04 L 1007378646) CALCIUM (test code = 8.8 mg/dL 8.6-10.6 4805238586) eGFR (test code = mL/min/1.73m2 7272670081) TANESHA (test code = TANESHA) Association of [...] tests). Lab Interpretation Abnormal (test code = 79829-1) [facility] StationMagnesium [id number] 12:18:02 Test Item Value Reference Range Interpretation Comments MAGNESIUM (test code = 8940952485) 1.9 mg/dL 1.7-2.4 Lab Interpretation (test code = Normal 51213-5) [facility] StationPhosphorus [id number] 12:04:57 Test Item Value Reference Range Interpretation Comments PHOSPHORUS (test code = 3.6 mg/dL 2.5-5.0 Slig ht hemolysis 7842042297) Lab Interpretation (test Normal code = 56774-3) [facility] StationTROPONIN [id number] 23:16:40 Test Item Value Reference Interpretation Comments Range TROPONIN I (test 0.002 ng/mL See_Comment [Automated code = 6200763478) message] The system which generated this result transmitted reference range : <=0.034. The reference range was not used to interpret this result as normal/abnormal . TANESHA (test code = Reference (Normal) TANESHA) Range (defined by the 99th percentile reference limit): <= 0.034 ng/mL Note: Cardiac troponin begins to rise 3-4 hours after the onset of ischemia. Repeat in 4-6 hours if the sample was drawn within 3-4 hours of the onset of the symptom and found normal. Diagnosis of myocardial injury is made with acute changes in cTn concentrations with at least one serial sample above the 99th percentile upper reference limit (URL), taken together with the patient's clinical presentation. Biotin has been reported to cause a negative bias, interpret results relative to patient's use of biotin. Lab Interpretation Normal (test code = 35635-2) [facility] MET[facility]OLIC PANEL ([id number])2022-01-16 22:49:37 Test Item Value Reference Range Interpretation Comments NA (test code = 135 mmol/L 135-145 2232028088) K (test code = 3.8 mmol/L 3.5-5.0 5834221676) CL (test code = 98 mmol/L 98-108 7694935499) CO2 TOTAL (test code 30 mmol/L 23-31 = 2200753440) AGAP (test code = 2-16 0291343499) BUN (test code = 9 mg/dL 7-23 8814759547) GLUCOSE (test code = 92 mg/dL 70-110 1829246730) CREATININE (test code 0.54 mg/dL 0.50-1.04 = 5352345770) TOTAL BILI (test code 0.4 mg/dL 0.1-1.1 = 7210933548) CALCIUM (test code = 8.8 mg/dL 8.6-10.6 3631570995) T PROTEIN (test code 6.8 g/dL 6.3-8.2 = 6187297641) ALBUMIN (test code = 4.4 g/dL 3.5-5.0 0753046462) ALK PHOS (test code = 108 U/L 34-122 8200828442) ALTv (test code = 15 U/L 5-35 2-6) AST(SGOT) (test code 31 U/L 13-40 = 1591633819) eGFR (test code = mL/min/1.73m2 2107986173) TANESHA (test code = TANESHA) Association of Glomerular Filtration Rate (GFR) and Staging of Kidney Disease* + + +- +| GFR (mL/min/1.73 m2) ?| With Kidney Damage ?| ?Without Kidney Damage+ ------+ ----+ ------+| ?>90 ?| ?Stage one ?| ? Normal ?+ -+ + -+| ?60-89 ?| ?Stage two ?| ? Decreased GFR ? + + +- +| ?30-59 ?| ?Stage three ?| ? Stage three ? + + +- +| ?15-29 ?| ?Stage four ? | ? Stage four ?+ -+ + -+| ?<15 (or dialysis) ? ?| ?Stage five ? | ? Stage five ?+ -+ + -+ *Each stage assumes the associated GFR level [...] or urine or abnormalities in imaging tests). [facility] StationPROTHROMBIN TIME / [id number] 22:02:38 Test Item Value Reference Range Interpretation Comments PROTIME PATIENT (test See_Comment [Auto mated message] code = 5964-2) The system [employer] ich generated this result transmitted ref erence range: 12.0 - 1 4.7 Seconds. The re ference range was not u sed to interpret this result as normal/abnor mal. INR (test code = 6301-6) Nor mal INR <1.1; Warfarin Therap eutic range 2.0 to 3. 0 or 2.5 to 3.5, dep ending upon the indica tions. Lab Interpretation (test Normal code = 58123-4) [facility] WITH [id number] 21:52:15 Test Item Value Reference Range Interpretation Comments WBC (test code = See_Comment L [Automated 5490-2) message] The sy stem which generated this result transmitted reference range : 4.30 - 11.10 10*3/?L. The reference range was not used to interpret this result as normal/abnormal . RBC (test code = See_Comment [Automated 349-8) message] The sy stem which generated this result transmitted reference range : 3.93 - 5.25 10*6/?L. The reference range was not used to interpret this result as normal/abnormal . HGB (test code = 12.7 g/dL 11.6-15.0 718-7) HCT (test code = 38.3 % 35.7-45.2 4544-3) MCV (test code = 95.3 fL 80.6-95.5 787-2) MCH (test code = 31.6 pg 25.9-32.8 785-6) MCHC (test code = 33.2 g/dL 31.6-35.1 786-4) RDW-SD (test code = 47.3 fL 39.0-49.9 99161-6) RDW-CV (test code = 13.2 % 12.0-15.5 788-0) PLT (test code = See_Comment [Automated 777-3) message] The sy stem which generated this result transmitted reference range : 166 - 358 10*3/ ?L. The reference r irvin was not used to interpret this result as normal/abnormal . MPV (test code = 12.4 fL 9.5-12.9 81156-0) NRBC/100 WBC (test See_Comment [Automat ed code = 2180988699) message] The system which generated this result transmitted reference range : 0.0 - 10.0 /100 WBCs. The refer ence range was not u sed to interpret th is result as normal/abnormal . NRBC x10^3 (test code <0.01 See_Comment [Auto mated = 7621605140) message] The s ystem which generated this result transmitted reference range : 10*3/?L. The reference range was not used to interpret this result as normal/abnormal . GRAN MAT (NEUT) % 59.4 % (test code = 770-8) IMM GRAN % (test code 0.30 % = 1372883400) LYMPH % (test code = 25.1 % 736-9) MONO % (test code = 12.1 % 5905-5) EOS % (test code = 1.7 % 713-8) BASO % (test code = 1.4 % 706-2) GRAN MAT x10^3(ANC) 2.06 10*3/uL 1.88-7.09 (test code = 8067149117) IMM GRAN x10^3 (test <0.03 0.00-0.06 code = 4204176696) LYMPH x10^3 (test code 0.87 10*3/uL 1.32-3.29 L = 731-0) MONO x10^3 (test code 0.42 10*3/uL 0.33-0.92 = 742-7) EOS x10^3 (test code = 0.06 10*3/uL 0.03-0.39 711-2) BASO x10^3 (test code 0.05 10*3/uL 0.01-0.07 = 704-7) Lab Interpretation Abnormal (test code = 40686-5) [facility] (ID NOW RAPID TESTING)2020-11-10 00:57:00 Test Item Value Reference Range Interpretation Comments SARS-CoV-2 Rapid ID NOW Not Detected Not Detected (test code = 37297-3) TANESHA (test code = TANESHA) ID NOW COVID-19 Assay is an isothermal nucleic acid amplification test intended for the qualitative detection of nucleic acid from SARS-CoV-2 viral RNA in 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 It is used under Emergency Use [...] indicated. Lab Interpretation Normal (test code = 49755-9) [facility] (NA, K, CL, CO2, GLUCOSE, BUN, CREATININE, CA)2020-11-09 11:06:00 Test Item Value Reference Range Interpretation Comments NA (test code = 134 mmol/L 135-145 L 1493675724) K (test code = 4.2 mmol/L 3.5-5 3191939033) CL (test code = 99 mmol/L 98-108 9823567017) CO2 TOTAL (test code = 30 mmol/L 23-31 0175865466) AGAP (test code = 2-16 4533456656) BUN (test code = 11 mg/dL 7-23 6051905900) GLUCOSE (test code = 95 mg/dL 70-110 0692047686) CREATININE (test code = 0.53 mg/dL 0.5-1.04 9015205705) CALCIUM (test code = 9.6 mg/dL 8.6-10.6 4029893042) eGFR Calculation mL/min/1.73m2 (Non-) (test code = 6458711771) eGFR Calculation mL/min/1.73m2 () (test code = 8693304374) TANESHA (test code = TANESHA) Association of [...] tests). Lab Interpretation Abnormal (test code = 75925-3) [facility] WITH [id number] 10:25:00 Test Item Value Reference Range Interpretation Comments WBC (test code = See_Comment L [Automated 5090-2) message] The sy stem which generated this result transmitted reference range : 4.30 - 11.10 10*3/?L. The reference range was not used to interpret this result as normal/abnormal . RBC (test code = See_Comment L [Automated 729-8) message] The sy stem which generated this [...] (test code = 51.8 fL 39-49.9 H 64293-2) RDW-CV (test code = 14.9 % 12-15.5 788-0) PLT (test code = See_Comment [Automated 777-3) message] The sy stem which generated this result transmitted reference range : 166 - 358 10*3/ ?L. The reference r irvin was not used to interpret this result as normal/abnormal . MPV (test code = 11.3 fL 9.5-12.9 35947-9) NRBC/100 WBC (test See_Comment [Automat ed code = 8582930738) message] The system which generated this result transmitted reference range : 0.0 - 10.0 /100 WBCs. The refer ence range was not u sed to interpret th is result as normal/abnormal . NRBC x10^3 (test code <0.01 See_Comment [Auto mated = 9864672530) message] The s ystem which generated this result transmitted reference range : 10*3/?L. The reference range was not used to interpret this result as normal/abnormal . GRAN MAT (NEUT) % 55.7 % (test code = 770-8) IMM GRAN % (test code 0.20 % = 9520023835) LYMPH % (test code = 28.3 % 736-9) MONO % (test code = 12.6 % 5905-5) EOS % (test code = 2.0 % 713-8) BASO % (test code = 1.2 % 706-2) GRAN MAT x10^3(ANC) 2.26 10*3/uL 1.88-7.09 (test code = 0313897093) IMM GRAN x10^3 (test <0.03 0-0.06 code = 9379659747) LYMPH x10^3 (test code 1.15 10*3/uL 1.32-3.29 L = 731-0) MONO x10^3 (test code 0.51 10*3/uL 0.33-0.92 = 742-7) EOS x10^3 (test code = 0.08 10*3/uL 0.03-0.39 711-2) BASO x10^3 (test code 0.05 10*3/uL 0.01-0.07 = 704-7) Lab Interpretation Abnormal (test code = 79682-0) [facility] WITH [id number] 10:47:00 Test Item Value Reference Range Interpretation [...] (test code = 51.7 fL 39-49.9 H 97660-6) RDW-CV (test code = 14.7 % 12-15.5 788-0) PLT (test code = See_Comment [Automated 777-3) message] The sy stem which generated this result transmitted reference range : 166 - 358 10*3/ ?L. The reference r irvin was not used to interpret this result as normal/abnormal . MPV (test code = 11.0 fL 9.5-12.9 64692-1) NRBC/100 WBC (test See_Comment [Automat ed code = 5028352457) message] The system which generated this result transmitted reference range : 0.0 - 10.0 /100 WBCs. The refer ence range was not u sed to interpret th is result as normal/abnormal . NRBC x10^3 (test code <0.01 See_Comment [Auto mated = 5659926628) message] The s ystem which generated this result transmitted reference range : 10*3/?L. The reference range was not used to interpret this result as normal/abnormal . GRAN MAT (NEUT) % 53.7 % (test code = 770-8) IMM GRAN % (test code 0.50 % = 0031604679) LYMPH % (test code = 28.8 % 736-9) MONO % (test code = 12.9 % 5905-5) EOS % (test code = 3.0 % 713-8) BASO % (test code = 1.1 % 706-2) GRAN MAT x10^3(ANC) 1.95 10*3/uL 1.88-7.09 (test code = 8170416073) IMM GRAN x10^3 (test <0.03 0-0.06 code = 1393442422) LYMPH x10^3 (test code 1.05 10*3/uL 1.32-3.29 L = 731-0) MONO x10^3 (test code 0.47 10*3/uL 0.33-0.92 = 742-7) EOS x10^3 (test code = 0.11 10*3/uL 0.03-0.39 711-2) BASO x10^3 (test code 0.04 10*3/uL 0.01-0.07 = 704-7) Lab Interpretation Abnormal (test code = 89354-7) [facility] METABOLIC PANEL (NA, K, CL, CO2, GLUCOSE, BUN, CREATININE, CA)2020-11-07 10:42:00 Test Item Value Reference Range Interpretation Comments NA (test code = 134 mmol/L 135-145 L 7442844623) K (test code = 4.0 mmol/L 3.5-5 4090818733) CL (test code = 99 mmol/L 98-108 0318295966) CO2 TOTAL (test code = 27 mmol/L 23-31 5593422963) AGAP (test code = 2-16 4863379905) BUN (test code = 11 mg/dL 7-23 5598206950) GLUCOSE (test code = 92 mg/dL 70-110 9473048123) CREATININE (test code = 0.49 mg/dL 0.5-1.04 L 0135799681) CALCIUM (test code = 9.2 mg/dL 8.6-10.6 7766135106) eGFR Calculation mL/min/1.73m2 (Non-) (test code = 3240184742) eGFR Calculation mL/min/1.73m2 () (test code = 7004339420) TANESHA (test code = TANESHA) Association of [...] tests). Lab Interpretation Abnormal (test code = 49357-0) [facility] WITH [id number] 11:10:00 Test Item Value Reference Range Interpretation [...] (test code = 51.6 fL 39-49.9 H 73681-5) RDW-CV (test code = 15.0 % 12-15.5 788-0) PLT (test code = See_Comment [Automated 777-3) message] The sy stem which generated this result transmitted reference range : 166 - 358 10*3/ ?L. The reference r irvin was not used to interpret this result as normal/abnormal . MPV (test code = 11.4 fL 9.5-12.9 44318-5) NRBC/100 WBC (test See_Comment [Automat ed code = 7854142469) message] The system which generated this result transmitted reference range : 0.0 - 10.0 /100 WBCs. The refer ence range was not u sed to interpret th is result as normal/abnormal . NRBC x10^3 (test code <0.01 See_Comment [Auto mated = 4547447105) message] The s ystem which generated this result transmitted reference range : 10*3/?L. The reference range was not used to interpret this result as normal/abnormal . GRAN MAT (NEUT) % 55.9 % (test code = 770-8) IMM GRAN % (test code 0.60 % = 5038406245) LYMPH % (test code = 28.7 % 736-9) MONO % (test code = 12.4 % 5905-5) EOS % (test code = 1.5 % 713-8) BASO % (test code = 0.9 % 706-2) GRAN MAT x10^3(ANC) 1.89 10*3/uL 1.88-7.09 (test code = 0554070047) IMM GRAN x10^3 (test <0.03 0-0.06 code = 3208699000) LYMPH x10^3 (test code 0.97 10*3/uL 1.32-3.29 L = 731-0) MONO x10^3 (test code 0.42 10*3/uL 0.33-0.92 = 742-7) EOS x10^3 (test code = 0.05 10*3/uL 0.03-0.39 711-2) BASO x10^3 (test code 0.03 10*3/uL 0.01-0.07 = 704-7) TOXIC CHANGES (test Present A code = 803-7) Lab Interpretation Abnormal (test code = 30551-6) [facility] METABOLIC PANEL (NA, K, CL, CO2, GLUCOSE, BUN, CREATININE, CA)2020-11-05 10:35:00 Test Item Value Reference Range Interpretation Comments NA (test code = 133 mmol/L 135-145 L 1286510331) K (test code = 4.5 mmol/L 3.5-5 Slight 2746063434) hemolysis CL (test code = 99 mmol/L 98-108 0148222793) CO2 TOTAL (test code 29 mmol/L 23-31 = 3622968134) AGAP (test code = 2-16 1042612542) BUN (test code = 11 mg/dL 7-23 Slight 4554694026) hemolysis GLUCOSE (test code = 83 mg/dL 70-110 4218312910) CREATININE (test code 0.44 mg/dL 0.5-1.04 L = 4011734622) CALCIUM (test code = 9.0 mg/dL 8.6-10.6 8632164521) eGFR Calculation mL/min/1.73m2 (Non-) (test code = 6020449895) eGFR Calculation mL/min/1.73m2 () (test code = 3243149661) TANESHA (test code = TANESHA) Association of [...] tests). Lab Interpretation Abnormal (test code = 59834-8) [facility]HEPAT[facility] FUN[facility] PANEL (40927) (ALB,T.PRO,BILI T,BU/BC,ALT,AST,ALK PHOS)2020-11-05 10:35:00 Test Item Value Reference Range Interpretation Comments TOTAL BILI (test code = 1878158068) 0.6 mg/dL 0.1-1.1 BILI UNCON (test code = 9812347315) 0.2 mg/dL 0.1-1.1 BILI CONJ (test code = 3768112254) 0.0 mg/dL 0-0.3 T PROTEIN (test code = 6624180938) 7.3 g/dL 6.3-8.2 ALBUMIN (test code = 5166504568) 3.5 g/dL 3.5-5 ALK PHOS (test code = 7968897433) 94 U/L 34-122 ALTv (test code = 1742-6) 25 U/L 5-35 AST(SGOT) (test code = 5907725217) 48 U/L 13-40 H Lab Interpretation (test code = Abnormal 27326-1) [facility] StationANTI-NUCLEAR ANTIBODY-PATHOLOGIST [id number] 04:21:00ANA - Pathologist InterpretationThe CARLOS ENRIQUE result is negative on interpretation. Norberto Pereira MD ?11/01/2020 ?10:20 PM [facility] LABORATORY SERVICESUnFort Duncan Regional Medical CenterCSF [id number] 13:32:00 Test Item Value Reference Range Interpretation Comments CSF CULTURE (test No organisms isolated code = 606-4) Gram stain (test code Moderate Mononuclear = 664-3) cells [facility] StationBLOOD CULTURE [id number] 09:01:00 Test Item Value Reference Range Interpretation Comments Blood Culture-Aerobic No organisms No growth Previo us (test code = 06391-8) isolated prelim inary verified result was Culture In Progress on 10/26/2020 at 06 01 CSTPrevious preliminary verified result was No growth a t 24 hours on 10/27/2020 at 03 01 CSTPrevious preliminary verified result was No growth a t 48 hours on 10/28/2020 at 03 01 CSTPrevious preliminary verified result was No growth a t 72 hours on 10/29/2020 at 03 01 OPERATIONS INSPECTOR Blood No organisms No growth Previous Culture-Anaerobic isolated preliminar y (test code = 89612-1) verifi ed result was Culture In Progress on 10/26/2020 at 06 01 CSTPrevious preliminary verified result was No growth a t 24 hours on 10/27/2020 at 03 01 CSTPrevious preliminary verified result was No growth a t 48 hours on 10/28/2020 at 03 01 CSTPrevious preliminary verified result was No growth a t 72 hours on 10/29/2020 at 03 01 OPERATIONS INSPECTOR Lab Interpretation Normal (test code = 06886-8) [facility] Station[facility] CULTURE [id number] 09:01:00 Test Item Value Reference Range Interpretation Comments Blood Culture-Aerobic No organisms No growth Previo us (test code = 67913-1) isolated prelim inary verified result was Culture In Progress on 10/26/2020 at 06 01 CSTPrevious preliminary verified result was No growth a t 24 hours on 10/27/2020 at 03 01 CSTPrevious preliminary verified result was No growth a t 48 hours on 10/28/2020 at 03 01 CSTPrevious preliminary verified result was No growth a t 72 hours on 10/29/2020 at 03 01 OPERATIONS INSPECTOR Blood No organisms No growth Previous Culture-Anaerobic isolated preliminar y (test code = 47176-4) verifi ed result was Culture In Progress on 10/26/2020 at 06 01 CSTPrevious preliminary verified result was No growth a t 24 hours on 10/27/2020 at 03 01 CSTPrevious preliminary verified result was No growth a t 48 hours on 10/28/2020 at 03 01 CSTPrevious preliminary verified result was No growth a t 72 hours on 10/29/2020 at 03 01 OPERATIONS INSPECTOR Lab Interpretation Normal (test code = 33312-5) [facility] StationBODY FLUID DIRECT [id number] 21:04:00 Test Item Value Reference Range Interpretation Comments BF COLOR (test code = Clear 3791509556) BF WBC Count (test See_Comment [Automat ed message] The code = 8947844650) system [facility] generated this result transmit carol reference range : 0 - 5 /?L. The reference r irvin was not used to interpr et this result as anoop l/abnormal. BF RBC Count (test See_Comment [Automat ed message] The code = 1754611049) system [facility] generated this result transmit carol reference range : /?L. The reference range was not used to interpr et this result as anoop l/abnormal. [facility] StationBODY FLUID MANUAL [id number] 21:04:00 Test Item Value Reference Range Interpretation Comments BF SEGS (test code = 7767559522) 1 % 0-7 BF LYMPHS (test code = 9722767563) 21 % 28-96 L MACROPHAGE (test code = 5096692737) 9 % 16-56 L #CELS CNTD (test code = 4547306625) Lab Interpretation (test code = Abnormal 83333-6) [facility] StationURINE [id number] 20:53:00 Test Item Value Reference Range Interpretation Comments URINE CULTURE (test >100,000 CFU/mL code = 630-4) Aerococcus urinae [facility] StationCERROSPINAL FLUID [id number] 20:33:00 Test Item Value Reference Range Interpretation Comments GLU CSF (test code = 64 mg/dL 50-80 3530254799) UNSPUN BODY FLUID Colorless COLOR (test code = 9485124477) UNSPUN BODY FLUID Clear CLARITY (test code = 7549977904) SPUN BODY FLUID COLOR Colorless (test code = 6084763633) SPUN BODY FLUID Clear CLARITY (test code = 1555336749) Sediment (test code = The sediment volume is 0829884075) <0.1 mLs of the total fluid volume of 1.0 mLs and its color is red. [facility] [id number] 20:33:00 Test Item Value Reference Range Interpretation Comments T. PRO CSF (test code = 53.0 mg/dL 15-45 H 9875127613) UNSPUN BODY FLUID COLOR Colorless (test code = 7814102380) UNSPUN BODY FLUID CLARITY Clear (test code = 3787090356) SPUN BODY FLUID COLOR Colorless (test code = 4286516786) SPUN BODY FLUID CLARITY Clear (test code = 7620959989) Sediment (test code = The sediment volume 2505585234) is <0.1 mLs of the total fluid volume of 1.0 mLs and its color is red. Lab Interpretation (test Abnormal code = 99723-4) [facility] StationMisc. Sendout- 5892058 autoimmune encephalitis [id number] 18:18:00 Test Item Value Reference Range Interpretation Comments Miscellaneous Test (test See scanned report code = 5861334339) Performing Lab (test code ARUP = 1600751604) [facility] (NA, K, CL, CO2, GLUCOSE, BUN, CREATININE, CA)2020-10-27 12:54:00 Test Item Value Reference Range Interpretation Comments NA (test code = 136 mmol/L 135-145 2500970704) K (test code = 3.7 mmol/L 3.5-5 7828571343) CL (test code = 103 mmol/L 98-108 7234383179) CO2 TOTAL (test code = 27 mmol/L 23-31 5382488063) AGAP (test code = 2-16 3989051544) BUN (test code = 15 mg/dL 7-23 2369513554) GLUCOSE (test code = 86 mg/dL 70-110 5074400795) CREATININE (test code = 0.45 mg/dL 0.5-1.04 L 3606106214) CALCIUM (test code = 8.7 mg/dL 8.6-10.6 6692208919) eGFR Calculation mL/min/1.73m2 (Non-) (test code = 6171636060) eGFR Calculation mL/min/1.73m2 () (test code = 2684818827) TANESHA (test code = TANESHA) Association of [...] tests). Lab Interpretation Abnormal (test code = 12084-4) [facility] WITH [id number] 12:08:00 Test Item Value Reference Range Interpretation [...] (test code = 50.7 fL 39-49.9 H 24857-2) RDW-CV (test code = 14.8 % 12-15.5 788-0) PLT (test code = See_Comment [Automated 777-3) message] The sy stem which generated this result transmitted reference range : 166 - 358 10*3/ ?L. The reference r irvin was not used to interpret this result as normal/abnormal . MPV (test code = 11.3 fL 9.5-12.9 27298-0) NRBC/100 WBC (test See_Comment [Automat ed code = 2097442673) message] The system which generated this result transmitted reference range : 0.0 - 10.0 /100 WBCs. The refer ence range was not u sed to interpret th is result as normal/abnormal . NRBC x10^3 (test code <0.01 See_Comment [Auto mated = 0555955332) message] The s ystem which generated this result transmitted reference range : 10*3/?L. The reference range was not used to interpret this result as normal/abnormal . GRAN MAT (NEUT) % 76.2 % (test code = 770-8) IMM GRAN % (test code 0.40 % = 0320357201) LYMPH % (test code = 13.7 % 736-9) MONO % (test code = 8.4 % 5905-5) EOS % (test code = 0.9 % 713-8) BASO % (test code = 0.4 % 706-2) GRAN MAT x10^3(ANC) 4.18 10*3/uL 1.88-7.09 (test code = 3782707846) IMM GRAN x10^3 (test <0.03 0-0.06 code = 0305802175) LYMPH x10^3 (test code 0.75 10*3/uL 1.32-3.29 L = 731-0) MONO x10^3 (test code 0.46 10*3/uL 0.33-0.92 = 742-7) EOS x10^3 (test code = 0.05 10*3/uL 0.03-0.39 711-2) BASO x10^3 (test code <0.03 0.01-0.07 = 704-7) Lab Interpretation Abnormal (test code = 58914-5) [facility] StationPOCT GLUCOSE (AUTOMATED)2020-10-27 02:27:00 Test Item Value Reference Range Interpretation Comments POCT GLU (test code = 6129533267) 97 mg/dL 70-110 Lab Interpretation (test code = Normal 99512-9) [facility] StationLAB ONLY COVID [id number] 23:29:00COVID DMT InterpretationInterpretation/Recommendations: Molecular NAAT Tests for [...] whether the patient is immune to future infectionswith the SARS-CoV-2 virus. Interpretation Result Comments:These interpretation comments are based upon all COVID-19 testing the patient has had at [facility], including molecular NAAT testing (more commonly known as PCR testing and Rapid ID Now testing) and antibody testing. It does not take into account any testing that a patient hashad outside of the [facility] medical record. [facility] LABORATORY SERVICESCOVID TjbdpipIDTE-RpI-3 Rapid ID NOW(no units) ? ? Date ? Value ? 10/26/2020 ? Not Detected ? ? ? 10/11/2020 ? Not Detected ? [facility]ORATORY SERVICESUnFort [facility] CT CHEST PULMONARY [id number] 21:51:22 1. No evidence of acute or [...] Stable compression deformity of T8 vertebral body. Nuris Herrera MD., have reviewed this study and [...] The heart is normal in size. Mild coronary [...] regions. No evidence of intrathoracic lymphadenopathy. LUNGS ANDPLEURA: The lungs are adequately expanded. There is mildelevation of the left hemidiaphragm. There is bibasilar subsegmentalatelectasis, more prominent on the left. A trace left pleural effusion issuspected. No focal opacities or suspicious nodules is identified. Nopneumothorax. Mild diffuse bronchialwall thickening with subtle scatteredfoci of peripheral airway impaction. The lower lobes are obscured byrespiratory motion. VISUALIZED UPPER ABDOMEN: The included solid organs and hollow viscusappear within normal limits. 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 OSSEOUS STRUCTURES AND SOFT TISSUES: No focal osseous lesions are detected.The soft tissues appearnormal. Multilevel degenerative changes of thespine. Again seen is a moderate compression deformity of T8 vertebral body.Of note previously noted L1 vertebral body compression deformity is notidentified on the current study. Mild pectus excavating deformity is noted.Diffuse bone demineralization is noted. Sarcopenia is noted. [...] the aorta. Type I aortic arch three-vessel anatomy.Theheart is normal in size. Mild coronary arterial calcifications arepresent. No pericardial abnormalities are identified. The RV to LV isnormal. A trace pericardial effusion is suspected.MEDIASTINUM AND LOWER NECK: No central airway lesions are detected. Theesophagus is within normal limits. Fullness atthe GE junction mayrepresent small hiatal hernia. The [...] wall thickening with subtle scatteredfoci of peripheral airwayimpaction. The lower lobes are obscured byrespiratory motion.VISUALIZED UPPER ABDOMEN: The included s olid organs and hollow viscusappear within normal limits. 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 Multilevel degenerative changes of thespine. Again seen i s a moderate compression deformity of T8 vertebral body.Of note previously noted L1 vertebral body compression deformity is notidentified on the current study. Mild pectus excavating deformity is noted.Diffuse bone demineralization is noted. Sarcopenia is noted. The includedsoft tissues of the breastsare within normal limits.IMPRESSION1. No evidence of acute or chronic pulmonary embolism through thelevel ofthe segmental pulmonary arteries. The distal segmental and subsegmentalbranches are unfortunately obscured by significant respiratory motionparticularly at the lung bases.2. Borderline caliber of the pulmonary trunk up to 3 cm in greatestdiameter. Mild low cardiomegaly. Moderate atherosclerotic calcifications ofthe coronary vessels. No evidence of acute cardiac decompensation.3. Small left pleural effusion with underlying atelectatic changes. Earlypneumonia not completely excluded.4. Stable c ompression deformity of T8 vertebral body.I, Nuris Maradiaga MD., have reviewed this study andagree with theabove report.[facility]OVID[facility] (ID NOW RAPID TESTING)2020-10-26 20:17:00 Test Item Value Reference Range Interpretation Comments SARS-CoV-2 Rapid ID NOW Not Detected Not Detected (test code = 82163-3) TANESHA (test code = TANESHA) ID NOW COVID-19 Assay is an isothermal nucleic acid amplification test intended for the qualitative detection of nucleic acid from SARS-CoV-2 viral RNA in 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 It is used under Emergency Use [...] indicated. Lab Interpretation Normal (test code = 66835-9) [facility] StationMR BRAIN W WO [id number] 19:11:48 No acute intracranial abnormality. Preliminary Report [...] matter and pontine hyperintensities,likely related to chronic microvascularischemic changes.Right basalganglia lacunar infarct. No abnormal intracranial enhancement seen. Few f oci of the SWI hypointensity are again demonstrated [...] acute infarct. A fewscattered T2/FLAIR bihemispheric white matterand pontine hyperintensities,likely related to chronic microvascular ischemic [...] in the mastoid air cells or paranasal airsinuses.T1 hyperintense signal is noted in the right petrous apex likely related toretained secretion within pneumatized petrous apex.IMPRESSIONNo acute intracranial abnormality.Preliminary Report Dictated by Resident: Britton Ricci MD., have reviewed this study and agree with the abovereport.[facility] StationXR CHEST 1 [id number] 15:47:30EXAM: XR CHEST 1 VW HISTORY: Fever [...] sides. The lungs are clear otherwise. The heartand great vessels arenormal.[facility] StationD-[id number] 11:22:00 Test Item Value Reference Interpretation Comments Range D-DIMER (test code = See_Comment H [Autom ated 7390874676) message] The system which generated this result [...] diagnosis. Lab Interpretation Abnormal (test code = 65409-6) [facility] StationURINALYSIS2021-01-20 09:07:00 Test Item Value Reference Range Interpretation Comments APPEARANCE (test code = Cloudy Clear A 8260583886) COLOR (test code = Yellow Yellow 1343129339) PH (test code = 4.8-8.0 6424116437) SP GRAVITY (test code = 1.003-1.030 1625551372) GLU U QUAL (test code = Normal Normal 8242715384) BLOOD (test code = Negative Negative 3581532335) KETONES (test code = Negative Negative 0332839051) PROTEIN (test code = Negative Negative 2887-8) UROBILIN (test code = Normal Normal 3424124551) BILIRUBIN (test code = Negative Negative 4174802895) NITRITE (test code = Negative Negative 6745566400) LEUK EDINSON (test code = Negative Negative 2789305487) RBC/HPF (test code = See_Comment [Autom ated message] 7909555990) The system [employer] generated this result transmitted ref erence range: 0 - 3 HP F. The reference range was not used to int erpret this result as normal/abnormal . WBC/HPF (test code = See_Comment [Autom ated message] 7388035748) The system [employer] generated this result transmitted ref erence range: 0 - 5 HP F. The reference range was not used to int erpret this result as normal/abnormal . BACTERIA (test code = Negative Negative 9292278470) AMORPHOUS (test code = Moderate Rare HPF A 2118551287) ASCORBIC ACID (test code Negative = 4580627164) Lab Interpretation (test Abnormal code = 73289-0) [facility] (NA, K, CL, CO2, GLUCOSE, BUN, CREATININE, CA)2020-10-26 08:22:00 Test Item Value Reference Range Interpretation Comments NA (test code = 134 mmol/L 135-145 L 8735057228) K (test code = 4.0 mmol/L 3.5-5 0669087835) CL (test code = 100 mmol/L 98-108 3102771328) CO2 TOTAL (test code = 28 mmol/L 23-31 0829491072) AGAP (test code = 2-16 2732187258) BUN (test code = 16 mg/dL 7-23 2939309619) GLUCOSE (test code = 157 mg/dL 70-110 H 8252432330) CREATININE (test code = 0.57 mg/dL 0.5-1.04 7787824698) CALCIUM (test code = 9.2 mg/dL 8.6-10.6 0792208248) eGFR Calculation mL/min/1.73m2 (Non-) (test code = 5627089317) eGFR Calculation mL/min/1.73m2 () (test code = 2855676272) TANESHA (test code = TANESHA) Association of [...] tests). Lab Interpretation Abnormal (test code = 94045-3) [facility] StationMAGNESIUM2021-01-20 08:22:00 Test Item Value Reference Range Interpretation Comments MAGNESIUM (test code = 4434214608) 1.8 mg/dL 1.7-2.4 Lab Interpretation (test code = Normal 87477-5) [facility] (NA, K, CL, CO2, GLUCOSE, BUN, CREATININE, CA)2020-10-25 11:09:00 Test Item Value Reference Range Interpretation Comments NA (test code = 135 mmol/L 135-145 8135407782) K (test code = 4.1 mmol/L 3.5-5 1705046008) CL (test code = 102 mmol/L 98-108 2922045210) CO2 TOTAL (test code = 30 mmol/L 23-31 9073463006) AGAP (test code = 2-16 4398673687) BUN (test code = 9 mg/dL 7-23 8803400065) GLUCOSE (test code = 94 mg/dL 70-110 7721845920) CREATININE (test code = 0.42 mg/dL 0.5-1.04 L 1137873715) CALCIUM (test code = 8.6 mg/dL 8.6-10.6 3765430161) eGFR Calculation mL/min/1.73m2 (Non-) (test code = 8882225965) eGFR Calculation mL/min/1.73m2 () (test code = 5905088988) TANESHA (test code = TANESHA) Association of [...] tests). Lab Interpretation Abnormal (test code = 51719-1) [facility] StationMAGNESIUM2021-01-19 11:09:00 Test Item Value Reference Range Interpretation Comments MAGNESIUM (test code = 6937777415) 1.8 mg/dL 1.7-2.4 Lab Interpretation (test code = Normal 62140-0) [facility] WITH [id number] 11:00:00 Test Item Value Reference Range Interpretation Comments WBC (test code = See_Comment [Automated 7390-2) message] The sy stem which generated this result transmitted reference range : 4.30 - 11.10 10*3/?L. The reference range was not used to interpret this result as normal/abnormal . RBC (test code = See_Comment L [Automated 149-8) message] The sy stem which generated this [...] RDW-SD (test code = 48.7 fL 39-49.9 70729-0) RDW-CV (test code = 14.3 % 12-15.5 788-0) PLT (test code = See_Comment [Automated 777-3) message] The sy stem which generated this result transmitted reference range : 166 - 358 10*3/ ?L. The reference r irvin was not used to interpret this result as normal/abnormal . MPV (test code = 11.3 fL 9.5-12.9 51345-8) NRBC/100 WBC (test See_Comment [Automat ed code = 3088362020) message] The system which generated this result transmitted reference range : 0.0 - 10.0 /100 WBCs. The refer ence range was not u sed to interpret th is result as normal/abnormal . NRBC x10^3 (test code <0.01 See_Comment [Auto mated = 8205500330) message] The s ystem which generated this result transmitted reference range : 10*3/?L. The reference range was not used to interpret this result as normal/abnormal . GRAN MAT (NEUT) % 77.5 % (test code = 770-8) IMM GRAN % (test code 0.50 % = 7750981372) LYMPH % (test code = 10.3 % 736-9) MONO % (test code = 9.9 % 5905-5) EOS % (test code = 1.3 % 713-8) BASO % (test code = 0.5 % 706-2) GRAN MAT x10^3(ANC) 4.76 10*3/uL 1.88-7.09 (test code = 9289876850) IMM GRAN x10^3 (test 0.03 10*3/uL 0-0.06 code = 4736152117) LYMPH x10^3 (test code 0.63 10*3/uL 1.32-3.29 L = 731-0) MONO x10^3 (test code 0.61 10*3/uL 0.33-0.92 = 742-7) EOS x10^3 (test code = 0.08 10*3/uL 0.03-0.39 711-2) BASO x10^3 (test code 0.03 10*3/uL 0.01-0.07 = 704-7) Lab Interpretation Abnormal (test code = 57310-5) [facility] StationFREE [id number] 20:53:00 Test Item Value Reference Range Interpretation Comments FREE T4 (test code = See_Comment [Autom ated message] 8518916040) The system [employer] generated this result transmitted ref erence range: 0.78 - 2 .20 ng/dL:. The ref erence range was not u sed to interpret this result as normal/abnor mal. Lab Interpretation (test Normal code = 48557-2) [facility] StationTHYROID STIMULATING [id number] 17:22:00 Test Item Value Reference Range Interpretation Comments TSH (test code = See_Comment Biotin has been 9613077679) reported to cau se a negative bias, interpret resul ts relative to zaina arana's use of biotin. [Automated mess age] The system [employer] generated this result transmitted ref erence range: 0.45 - 4 .70 mIU/L. The refe rence range was not u sed to interpret this result as normal/abnor mal. Lab Interpretation (test Normal code = 83303-1) [facility] METABOLIC PANEL (NA, K, CL, CO2, GLUCOSE, BUN, CREATININE, CA)2020-10-24 09:56:00 Test Item Value Reference Range Interpretation Comments NA (test code = 135 mmol/L 135-145 8476438377) K (test code = 3.5 mmol/L 3.5-5 9642270729) CL (test code = 104 mmol/L 98-108 4176230625) CO2 TOTAL (test code = 28 mmol/L 23-31 6805564065) AGAP (test code = 2-16 3015281772) BUN (test code = 12 mg/dL 7-23 5220260403) GLUCOSE (test code = 96 mg/dL 70-110 5461905699) CREATININE (test code = 0.42 mg/dL 0.5-1.04 L 3984421799) CALCIUM (test code = 8.6 mg/dL 8.6-10.6 0024032640) eGFR Calculation mL/min/1.73m2 (Non-) (test code = 8246389395) eGFR Calculation mL/min/1.73m2 () (test code = 2834578605) TANESHA (test code = TANESHA) Association of [...] tests). Lab Interpretation Abnormal (test code = 57269-0) [facility] StationMAGNESIUM2021-01-18 09:56:00 Test Item Value Reference Range Interpretation Comments MAGNESIUM (test code = 5823539015) 1.8 mg/dL 1.7-2.4 Lab Interpretation (test code = Normal 85299-7) [facility] WITH [id number] 09:35:00 Test Item Value Reference Range Interpretation [...] RDW-SD (test code = 47.4 fL 39-49.9 50452-5) RDW-CV (test code = 14.0 % 12-15.5 788-0) PLT (test code = See_Comment [Automated 777-3) message] The sy stem which generated this result transmitted reference range : 166 - 358 10*3/ ?L. The reference r irvin was not used to interpret this result as normal/abnormal . MPV (test code = 11.1 fL 9.5-12.9 00993-0) NRBC/100 WBC (test See_Comment [Automat ed code = 0085450061) message] The system which generated this result transmitted reference range : 0.0 - 10.0 /100 WBCs. The refer ence range was not u sed to interpret th is result as normal/abnormal . NRBC x10^3 (test code <0.01 See_Comment [Auto mated = 6763181815) message] The s ystem which generated this result transmitted reference range : 10*3/?L. The reference range was not used to interpret this result as normal/abnormal . GRAN MAT (NEUT) % 64.9 % (test code = 770-8) IMM GRAN % (test code 0.30 % = 2276350517) LYMPH % (test code = 16.2 % 736-9) MONO % (test code = 16.2 % 5905-5) EOS % (test code = 2.1 % 713-8) BASO % (test code = 0.3 % 706-2) GRAN MAT x10^3(ANC) 2.20 10*3/uL 1.88-7.09 (test code = 0161527290) IMM GRAN x10^3 (test <0.03 0-0.06 code = 2571747221) LYMPH x10^3 (test code 0.55 10*3/uL 1.32-3.29 L = 731-0) MONO x10^3 (test code 0.55 10*3/uL 0.33-0.92 = 742-7) EOS x10^3 (test code = 0.07 10*3/uL 0.03-0.39 711-2) BASO x10^3 (test code <0.03 0.01-0.07 = 704-7) Lab Interpretation Abnormal (test code = 29983-3) [facility] CULTURE [id number] 00:01:00 Test Item Value Reference Range Interpretation Comments Blood Culture-Aerobic No organisms No growth Previo us (test code = 12694-1) isolated prelim inary verified result was Culture In Progress on 10/17/2020 at 21 01 CSTPrevious preliminary verified result was No growth a t 24 hours on 10/18/2020 at 18 01 CSTPrevious preliminary verified result was No growth a t 48 hours on 10/19/2020 at 18 01 CSTPrevious preliminary verified result was No growth a t 72 hours on 10/20/2020 at 18 01 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 Blood No organisms No growth Previous Culture-Anaerobic isolated preliminar y (test code = 89413-5) verifi ed result was Culture In Progress on 10/17/2020 at 21 01 CSTPrevious preliminary verified result was No growth a t 24 hours on 10/18/2020 at 18 01 CSTPrevious preliminary verified result was No growth a t 48 hours on 10/19/2020 at 18 01 CSTPrevious preliminary verified result was No growth a t 72 hours on 10/20/2020 at 18 01 OPERATIONS INSPECTOR Lab Interpretation Normal (test code = 64146-5) [facility] [id number] 22:01:00 Test Item Value Reference Range Interpretation Comments Blood Culture-Aerobic No organisms No growth Previo us (test code = 10202-5) isolated prelim inary verified result was Culture In Progress on 10/17/2020 at 19 01 CSTPrevious preliminary verified result was No growth a t 24 hours on 10/18/2020 at 16 01 CSTPrevious preliminary verified result was No growth a t 48 hours on 10/19/2020 at 16 01 CSTPrevious preliminary verified result was No growth a t 72 hours on 10/20/2020 at 16 01 OPERATIONS INSPECTOR Blood No organisms No growth Previous Culture-Anaerobic isolated preliminar y (test code = 76610-0) verifi ed result was Culture In Progress on 10/17/2020 at 19 01 CSTPrevious preliminary verified result was No growth a t 24 hours on 10/18/2020 at 16 01 CSTPrevious preliminary verified result was No growth a t 48 hours on 10/19/2020 at 16 01 CSTPrevious preliminary verified result was No growth a t 72 hours on 10/20/2020 at 16 01 OPERATIONS INSPECTOR Lab Interpretation Normal (test code = 61229-3) [facility] METABOLIC PANEL (NA, K, CL, CO2, GLUCOSE, BUN, CREATININE, CA)2020-10-22 11:53:00 Test Item Value Reference Range Interpretation Comments NA (test code = 130 mmol/L 135-145 L 8307225958) K (test code = 4.1 mmol/L 3.5-5 8465780797) CL (test code = 99 mmol/L 98-108 9046440271) CO2 TOTAL (test code = 31 mmol/L 23-31 6314237915) AGAP (test code = <1 2-16 L 6409767443) BUN (test code = 16 mg/dL 7-23 6107463066) GLUCOSE (test code = 100 mg/dL 70-110 7649076819) CREATININE (test code = 0.42 mg/dL 0.5-1.04 L 6962892875) CALCIUM (test code = 8.4 mg/dL 8.6-10.6 L 0617406857) eGFR Calculation mL/min/1.73m2 (Non-) (test code = 0892380208) eGFR Calculation mL/min/1.73m2 () (test code = 8409750654) TANESHA (test code = TANESHA) Association of [...] tests). Lab Interpretation Abnormal (test code = 10092-5) [facility] WITH [id number] 10:59:00 Test Item Value Reference Range Interpretation Comments WBC (test code = See_Comment L [Automated 2691-2) message] The sy stem which generated this result transmitted reference range : 4.30 - 11.10 10*3/?L. The reference range was not used to interpret this result as normal/abnormal . RBC (test code = See_Comment L [Automated 019-8) message] The sy stem which generated this [...] RDW-SD (test code = 46.3 fL 39-49.9 81255-6) RDW-CV (test code = 13.7 % 12-15.5 788-0) PLT (test code = See_Comment [Automated 777-3) message] The sy stem which generated this result transmitted reference range : 166 - 358 10*3/ ?L. The reference r irvin was not used to interpret this result as normal/abnormal . MPV (test code = 11.7 fL 9.5-12.9 86181-9) NRBC/100 WBC (test See_Comment [Automat ed code = 2237461513) message] The system which generated this result transmitted reference range : 0.0 - 10.0 /100 WBCs. The refer ence range was not u sed to interpret th is result as normal/abnormal . NRBC x10^3 (test code <0.01 See_Comment [Auto mated = 8347901284) message] The s ystem which generated this result transmitted reference range : 10*3/?L. The reference range was not used to interpret this result as normal/abnormal . GRAN MAT (NEUT) % 60.1 % (test code = 770-8) IMM GRAN % (test code 0.60 % = 4635762838) LYMPH % (test code = 18.2 % 736-9) MONO % (test code = 18.2 % 5905-5) EOS % (test code = 2.0 % 713-8) BASO % (test code = 0.9 % 706-2) GRAN MAT x10^3(ANC) 2.12 10*3/uL 1.88-7.09 (test code = 7168114704) IMM GRAN x10^3 (test <0.03 0-0.06 code = 1272867133) LYMPH x10^3 (test code 0.64 10*3/uL 1.32-3.29 L = 731-0) MONO x10^3 (test code 0.64 10*3/uL 0.33-0.92 = 742-7) EOS x10^3 (test code = 0.07 10*3/uL 0.03-0.39 711-2) BASO x10^3 (test code 0.03 10*3/uL 0.01-0.07 = 704-7) Lab Interpretation Abnormal (test code = 75245-0) [facility] StationCSF [id number] 16:40:00 Test Item Value Reference Range Interpretation Comments CSF CULTURE (test No organisms isolated code = 606-4) Gram stain (test code Occasional (Rare) = 664-3) Mononuclear cells [facility]. Sendout- Meningtis Panel [facility] [id number] 2020-10-21 13:57:00 Test Item Value Reference Range Interpretation Comments Miscellaneous Test (test See scanned report code = 9486499677) Performing Lab (test code [facility] = 9211676817) [facility]. Sendout- Paraneoplastic panel [facility] [id number] 13:15:00 Test Item Value Reference Range Interpretation Comments Miscellaneous Test (test See scanned report code = 1175688143) Performing Lab (test code [facility] = 8570364735) [facility] StationMAG[facility]UM2021-01-15 11:27:00 Test Item Value Reference Range Interpretation Comments MAGNESIUM (test code = 7770293407) 1.6 mg/dL 1.7-2.4 L Lab Interpretation (test code = Abnormal 36725-3) [facility] METABOLIC PANEL (NA, K, CL, CO2, GLUCOSE, BUN, CREATININE, CA)2020-10-21 11:27:00 Test Item Value Reference Range Interpretation Comments NA (test code = 133 mmol/L 135-145 L 7135823094) K (test code = 3.5 mmol/L 3.5-5 4292992012) CL (test code = 103 mmol/L 98-108 7455819278) CO2 TOTAL (test code = 24 mmol/L 23-31 8663380336) AGAP (test code = 2-16 0352997109) BUN (test code = 10 mg/dL 7-23 8696463307) GLUCOSE (test code = 90 mg/dL 70-110 6517756220) CREATININE (test code = 0.39 mg/dL 0.5-1.04 L 2544936199) CALCIUM (test code = 7.8 mg/dL 8.6-10.6 L 6295293980) eGFR Calculation mL/min/1.73m2 (Non-) (test code = 1694268808) eGFR Calculation mL/min/1.73m2 () (test code = 0415127307) TANESHA (test code = TANESHA) Association of [...] tests). Lab Interpretation Abnormal (test code = 91162-5) [facility] WITH [id number] 11:22:00 Test Item Value Reference Range Interpretation [...] RDW-SD (test code = 46.9 fL 39-49.9 36238-2) RDW-CV (test code = 13.6 % 12-15.5 788-0) PLT (test code = See_Comment [Automated 777-3) message] The sy stem which generated this result transmitted reference range : 166 - 358 10*3/ ?L. The reference r irvin was not used to interpret this result as normal/abnormal . MPV (test code = 11.6 fL 9.5-12.9 89784-3) NRBC/100 WBC (test See_Comment [Automat ed code = 0427517405) message] The system which generated this result transmitted reference range : 0.0 - 10.0 /100 WBCs. The refer ence range was not u sed to interpret th is result as normal/abnormal . NRBC x10^3 (test code <0.01 See_Comment [Auto mated = 2755562272) message] The s ystem which generated this result transmitted reference range : 10*3/?L. The reference range was not used to interpret this result as normal/abnormal . GRAN MAT (NEUT) % 58.6 % (test code = 770-8) IMM GRAN % (test code 0.30 % = 4570935991) LYMPH % (test code = 21.8 % 736-9) MONO % (test code = 17.3 % 5905-5) EOS % (test code = 1.0 % 713-8) BASO % (test code = 1.0 % 706-2) GRAN MAT x10^3(ANC) 1.80 10*3/uL 1.88-7.09 L (test code = 6642603589) IMM GRAN x10^3 (test <0.03 0-0.06 code = 9014160403) LYMPH x10^3 (test code 0.67 10*3/uL 1.32-3.29 L = 731-0) MONO x10^3 (test code 0.53 10*3/uL 0.33-0.92 = 742-7) EOS x10^3 (test code = 0.03 10*3/uL 0.03-0.39 711-2) BASO x10^3 (test code 0.03 10*3/uL 0.01-0.07 = 704-7) TOXIC CHANGES (test Present A code = 803-7) Lab Interpretation Abnormal (test code = 42039-5) [facility] StationNEUTROPHIL CYTOPLASMIC AB, [id number] 18:19:00 Test Item Value Reference Range Interpretation Comments ANCA TITER (test code <1:20 See_Comment The AN CA IFA is <1:20; = 20296-1) therefore, no f urther testing will be [...] or arthritis.Pe rformed By: [facility] [place], [place] [address]Bhikaxv or Director: Sherry Murillo MD [Automated m essage] The system which ge nerated this result transmit carol reference range : <1:20. The reference range was not used to interpr et this result as anoop l/abnormal. [facility] StationMiwy. Sendout- Paraneoplastic CSF EMI [id number] 2020-10-20 17:36:00 Test Item Value Reference Range Interpretation Comments Miscellaneous Test (test See scanned report code = 0371528556) Performing Lab (test code [facility] = 0654957550) [facility] StationHEPATIC FUNCTION PANEL (38486) (ALB,T.PRO,BILI T,BU/BC,ALT,AST,ALK PHOS)2020-10-20 15:53:00 Test Item Value Reference Range Interpretation Comments TOTAL BILI (test code = 6747971445) 0.2 mg/dL 0.1-1.1 BILI UNCON (test code = 7601555303) 0.2 mg/dL 0.1-1.1 BILI CONJ (test code = 7329538360) 0.0 mg/dL 0-0.3 T PROTEIN (test code = 7739504742) 7.4 g/dL 6.3-8.2 ALBUMIN (test code = 1314978393) 2.9 g/dL 3.5-5 L ALK PHOS (test code = 0703509252) 87 U/L 34-122 ALTv (test code = 1742-6) 38 U/L 5-35 H AST(SGOT) (test code = 4690347245) 64 U/L 13-40 H Lab Interpretation (test code = Abnormal 50063-4) [facility] WITH [id number] 11:27:00 Test Item Value Reference Range Interpretation [...] RDW-SD (test code = 45.2 fL 39-49.9 50299-7) RDW-CV (test code = 13.5 % 12-15.5 788-0) PLT (test code = See_Comment [Automated 777-3) message] The sy stem which generated this result transmitted reference range : 166 - 358 10*3/ ?L. The reference r irvin was not used to interpret this result as normal/abnormal . MPV (test code = 11.3 fL 9.5-12.9 61472-5) NRBC/100 WBC (test See_Comment [Automat ed code = 6846650942) message] The system which generated this result transmitted reference range : 0.0 - 10.0 /100 WBCs. The refer ence range was not u sed to interpret th is result as normal/abnormal . NRBC x10^3 (test code <0.01 See_Comment [Auto mated = 0148732680) message] The s ystem which generated this result transmitted reference range : 10*3/?L. The reference range was not used to interpret this result as normal/abnormal . GRAN MAT (NEUT) % 62.2 % (test code = 770-8) IMM GRAN % (test code 0.30 % = 4503929372) LYMPH % (test code = 17.4 % 736-9) MONO % (test code = 17.7 % 5905-5) EOS % (test code = 1.7 % 713-8) BASO % (test code = 0.7 % 706-2) GRAN MAT x10^3(ANC) 1.79 10*3/uL 1.88-7.09 L (test code = 8542440404) IMM GRAN x10^3 (test <0.03 0-0.06 code = [id number]) LYMPH x10^3 (test code 0.50 10*3/uL 1.32-3.29 L = 731-0) MONO x10^3 (test code 0.51 10*3/uL 0.33-0.92 = 742-7) EOS x10^3 (test code = 0.05 10*3/uL 0.03-0.39 711-2) BASO x10^3 (test code <0.03 0.01-0.07 = 704-7) BASO STIPPLING (test Present A code = 703-9) Lab Interpretation Abnormal (test code = 31022-5) [facility] StationTROPONIN [id number] 11:16:00 Test Item Value Reference Range Interpretation Comments TROPONIN I (test 0.003 ng/mL See_Comment [Automated code = 9371392529) message] The system which generated this result [...] ? Lab Interpretation Normal (test code = 44076-2) [facility] StationPROTHROMBIN TIME / [id number] 11:04:00 Test Item Value Reference Range Interpretation Comments PROTIME PATIENT (test See_Comment [Auto mated message] code = 5964-2) The system [employer] ich generated this result transmitted ref erence range: 10.1 - 1 2.6 Seconds. The re ference range was not u sed to interpret this result as normal/abnor mal. INR (test code = 6301-6) Nor mal INR <1.1; Warfarin Therap eutic range 2.0 to 3. 0 or 2.5 to 3.5, dep ending upon the indica tions. Lab Interpretation (test Normal code = 51797-5) [facility] StationACTIVATED PARTIAL THRMPLAS [id number] 11:04:00 Test Item Value Reference Range Interpretation Comments APTT Patient (test code = See_Comment [ Automated message] 3173-2) The system [employer] generated this result transmitted ref erence range: 26 - 36 Seconds. The re ference range was not u sed to interpret this result as normal/abnor mal. Lab Interpretation (test Normal code = 81582-2) [facility] StationMAGNESIUM2021-01-14 09:53:00 Test Item Value Reference Range Interpretation Comments MAGNESIUM (test code = 9875285518) 1.8 mg/dL 1.7-2.4 Lab Interpretation (test code = Normal 08220-2) [facility] (NA, K, CL, CO2, GLUCOSE, BUN, CREATININE, CA)2020-10-20 09:53:00 Test Item Value Reference Range Interpretation Comments NA (test code = 134 mmol/L 135-145 L 2293621085) K (test code = 4.3 mmol/L 3.5-5 7464742827) CL (test code = 101 mmol/L 98-108 0285624558) CO2 TOTAL (test code = 32 mmol/L 23-31 H 2781261384) AGAP (test code = 2-16 L 4338722667) BUN (test code = 14 mg/dL 7-23 5783306080) GLUCOSE (test code = 109 mg/dL 70-110 8180520183) CREATININE (test code = 0.47 mg/dL 0.5-1.04 L 1965898957) CALCIUM (test code = 8.0 mg/dL 8.6-10.6 L 0388627370) eGFR Calculation mL/min/1.73m2 (Non-) (test code = 5422254411) eGFR Calculation mL/min/1.73m2 () (test code = 9922596217) TANESHA (test code = TANESHA) Association of [...] tests). Lab Interpretation Abnormal (test code = 72606-8) [facility] StationN-methyl-D-Aspartate Receptor Ab, CSF 2020-10-19 21:52:00 Test Item Value Reference Range Interpretation Comments R-okztdg-N-Aspartate < 1:1 See_Comment Antibo dies to NMDA were Receptor Ab, CSF not detecte d, no additional (test code = 69819-8) testin g to follow.INTERPRE TIVE INFORMATION: P-xtdgpw-N-Aspa rtate ?Receptor Ab, CSF Anti-NM DA receptor [...] a diagnosis of autoimmune limb ic encephalitis. T est developed and characteristics determined by shopkick[facility] orirere. See Compliance Stat ement B: Ringio/CSP erformed By: [facility] [address] [place], [place] [address]Qzudrje or Director: Sherry Murillo MD [Automated m essage] The system which ge nerated this result transmit carol reference range : <1:1. The reference range was not used to interpr et this result as anoop l/abnormal. [facility] StationXR [id number] 16:55:02 Dobbhoff tube projects over the gastric [...] and soft tissues are within normal limits. [facility], Radiant Results Inft User - 10/19/2020 10:56 [...] reviewed this study and agree with theabove report.[facility] StationCARCINOEMBRYONIC ANTIGEN 2020-10-19 15:44:00 Test Item Value Reference Range Interpretation Comments CEA (test code = 0.5 ng/mL 0-10 2968439764) TANESHA (test code = TANESHA) CEA Ranges: Non-Smokers ?0-5.0 ng/mLSmokers ? ? ?0-10.0 ng/mL Lab Interpretation (test Normal code = 54052-7) [facility] StationMR ABDOMEN W WO CONTRAST [id number] 13:26:12 Pancreatic parenchyma is atrophic and the duct is prominent with noevidence of solid lesions. 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 Preliminary Report Dictated by Resident: Liza Mercado MD., have reviewed this study and agree [...] isdemonstrated with all cystic structures. ADRENAL GLANDS: No adrenal nodules. KIDNEYS: No hydronephrosis or masses. PERITONEUM AND RETROPERITONEUM: No upper abdominal ascites. LYMPH NODES: No lymphadenopathy. VESSELS: Unremarkable. BONES AND SOFT TISSUES: Unremarkable. [facility], Radiant Results Inft User - 10/19/2020 7:27 AM CSTEXAM: MRI ABDOMEN WITH AND WITHOUT CONTRASTHISTORY: 65-year-old female; IPMN on CT abdomen.COMPARISON: CT abdomen pelvis 10/17/2020.TECHNIQUE: Multiplanar, multisequence MR imaging of the abdomen wasperformed with and without contrast. (10 cc of ProHance)FINDINGS:LOWER THORAX: Small bilateral pleural effusions.LIVER: [...] abdominal ascites.LYMPH NODES: No lymphadenopathy.VESSELS: Unremarkable.BONES AND SOFT TISSUES: Unremarkable.IMPRESSIONPancreatic parenchyma is atrophic and the duct is prominent with noevidence of solid lesions. 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 Sendout- Men/Encep Arup [id number] 2020-10-19 13:26:00 Test Item Value Reference Range Interpretation Comments Miscellaneous Test (test See scanned report code = 2873679501) Performing Lab (test code ARUP = 9640727278) [facility] StationHBV BY REAL-TIME [id number] 12:40:00 Test Item Value Reference Range Interpretation Comments HBV Quantitative Not Detected Not Detected Interpretation (test code = 20926-4) TANESHA (test code = TANESHA) The test [...] Log IU/mL >10^9 ?IU/mL, ?>9.00 ?Log IU/mL [facility] StationBASIC METABOLIC PANEL (NA, K, CL, CO2, GLUCOSE, BUN, CREATININE, CA)2020-10-19 09:55:00 Test Item Value Reference Range Interpretation Comments NA (test code = 131 mmol/L 135-145 L 0143612597) K (test code = 3.6 mmol/L 3.5-5 4684919998) CL (test code = 99 mmol/L 98-108 5626934138) CO2 TOTAL (test code = 28 mmol/L 23-31 1065084519) AGAP (test code = 2-16 4607663314) BUN (test code = 9 mg/dL 7-23 8715559178) GLUCOSE (test code = 83 mg/dL 70-110 7721996786) CREATININE (test code = 0.78 mg/dL 0.5-1.04 6588203598) CALCIUM (test code = 8.3 mg/dL 8.6-10.6 L 4236945917) eGFR Calculation mL/min/1.73m2 (Non-) (test code = 1328823321) eGFR Calculation mL/min/1.73m2 () (test code = 9329506760) TANESHA (test code = TANESHA) Association of [...] tests). Lab Interpretation Abnormal (test code = 80586-7) [facility] StationMAGNESIUM2021-01-13 09:55:00 Test Item Value Reference Range Interpretation Comments MAGNESIUM (test code = 9195705512) 1.6 mg/dL 1.7-2.4 L Lab Interpretation (test code = Abnormal 86727-9) [facility] (NA, K, CL, CO2, GLUCOSE, BUN, CREATININE, CA)2020-10-19 04:33:00 Test Item Value Reference Range Interpretation Comments NA (test code = 132 mmol/L 135-145 L 9189048371) K (test code = 4.2 mmol/L 3.5-5 Slight 0875936627) hemolysis CL (test code = 103 mmol/L 98-108 8018417448) CO2 TOTAL (test code 22 mmol/L 23-31 L = 2444802229) AGAP (test code = 2-16 8795506446) BUN (test code = 8 mg/dL 7-23 Slight 5507341687) hemolysis GLUCOSE (test code = 79 mg/dL 70-110 2667319325) CREATININE (test code 0.39 mg/dL 0.5-1.04 L = 2039228718) CALCIUM (test code = 8.2 mg/dL 8.6-10.6 L 7774071008) eGFR Calculation mL/min/1.73m2 (Non-) (test code = 6689596202) eGFR Calculation mL/min/1.73m2 () (test code = 9448859891) TANESHA (test code = TANESHA) Association of [...] tests). Lab Interpretation Abnormal (test code = 07407-7) [facility] StationMR BRAIN W WO [id number] 23:03:05 Impression: No acute abnormality diffusion-weighted imaging.Sequela [...] (LOC), unexplained TECHNIQUE: Multi weighted multiplanar MRI ofthe head was done on 3T MRI. 9mL of ProHance was given. FINDINGS: The ventricles and cerebral sulci are [...] is present in the mastoid aircells or paranasalsinuses.Few foci of susceptibility signal loss seen at in the right insular regionand the subarachnoid space anterior to the midbrain. Mild enhancement identified in the right petrousapex surrounding W3bqmjwedgzlhu signal centrally.Two foci of susceptibility signal loss seen at the vermis and leftcerebellar hemisphere representing foci of calcification. (Seen on prior CTscan). [facility], Radiant Results Inft User - 10/18/2020 5:12 PM CSTMR BRAIN W WO CONTRASTCOMPARISON: MRI head dated 10/16/[address] head dated 10/13/2020.HISTORY: Altered level of consciousness (LOC), unexplained TECHNIQUE: Multi weighted multiplanar MRI of the head was done on 3T MRI. 9mL of ProHance was given.FINDINGS:The ventricles and cerebral sulci are normal in [...] the major intracranial vessels are unremarkable.No abnormal fluidsignal is present in the mastoid air cells or paranasalsinuses.Few foci of susceptibility signal loss seen at in the right insular regionand the subarachnoid space anterior to the midbrain. Mild enhance ment identified in the right petrous apex surrounding J2hjcurzejlhiz signal centrally.Two foci of susceptibility signal loss seen at the vermis and leftcerebellar hemisphere representing foci of calcification. (Seen on prior CTscan).IMPRESSIONImpression:No acute abnormality diffusion-weighted imaging.S equela of small vessel disease as described above.Increased signal in the sulci over the convexitiesbilaterally on FLAIRimaging related to anesthesia or meningitis. Recommend correlation withCSF analysis.Retained/high protein content right petrous apex secretions with minimalinflammatory mucosal thick ening.Preliminary Report Dictated by Resident: Ashley Culver MD., have reviewed this study and agree with theabove report. [facility] StationANTI-NUCLEAR ANTIBODY [id number] 18:56:00 Test Item Value Reference Range Interpretation Comments CARLOS ENRIQUE (test code = Negative Negative 1627218046) TANESHA (test code = TANESHA) Negative - [...] separately. Lab Interpretation (test Normal code = 01166-1) [facility] StationXR [id number] 15:27:46FINDINGS/IMPRESSION: The Dobbhoff tube terminates in the mid esophagus.The visualized lungs are clear . The cardiac silhouette is normal.The visualized bowel gas pattern is unremarkable.No radiopaque stone is seen. ?No acute osseous abnormality. Findings of Dobbhoff tube were communicated to Dr. Alexander 3:43 AM on10/18/2019. Preliminary Report Dictated by Resident: Liza Conn MD., have reviewed this study and agree with theabove report.EXAM: XR KUB HISTORY: confirm DHT COMPARISON: KUB 10/14/2020. [facility], Radiant Results Inft User - 10/18/2020 9:28 AM CSTEXAM: XR KUBHISTORY:confirm DHT COMPARISON: KUB 10/14/2020.IMPRESSIONFINDINGS/IMPRESSION:The Dobbhoff tube terminates in the mid esophagus.The visualized lungs are clear. The cardiac silhouette is normal.The visualized bowel gas pattern is unremarkable.No radiopaque stone is seen. No acute osseous abnormality. Findings of Dobbhoff tube were communicated to Dr. Lindsey at 3:43 AM on10/18/2019.Preliminary Report Dictated by Resident: Liza Herrera MD., have reviewed this study and agree with theabove report.[facility] METABOLIC PANEL (NA, K, CL, CO2, GLUCOSE, BUN, CREATININE, CA)2020-10-18 11:41:00 Test Item Value Reference Range Interpretation Comments NA (test code = 130 mmol/L 135-145 L 8131708591) K (test code = 2.9 mmol/L 3.5-5 LL 2493305058) CL (test code = 97 mmol/L 98-108 L 7010519318) CO2 TOTAL (test code = 31 mmol/L 23-31 6781432436) AGAP (test code = 2-16 1291851645) BUN (test code = 7 mg/dL 7-23 3112795072) GLUCOSE (test code = 90 mg/dL 70-110 9814967065) CREATININE (test code = 0.72 mg/dL 0.5-1.04 8452786252) CALCIUM (test code = 8.2 mg/dL 8.6-10.6 L 8966868107) eGFR Calculation mL/min/1.73m2 (Non-) (test code = 7859540719) eGFR Calculation mL/min/1.73m2 () (test code = 0800507957) TANESHA (test code = TANESHA) Association of [...] tests). Lab Interpretation Abnormal (test code = 02380-0) [facility] StationMAGNESIUM2021-01-12 11:28:00 Test Item Value Reference Range Interpretation Comments MAGNESIUM (test code = 6946446144) 1.7 mg/dL 1.7-2.4 Lab Interpretation (test code = Normal 32396-9) [facility] WITH [id number] 11:04:00 Test Item Value Reference Range Interpretation [...] RDW-SD (test code = 44.5 fL 39-49.9 04174-2) RDW-CV (test code = 13.2 % 12-15.5 788-0) PLT (test code = See_Comment [Automated 777-3) message] The sy stem which generated this result transmitted reference range : 166 - 358 10*3/ ?L. The reference r irvin was not used to interpret this result as normal/abnormal . MPV (test code = 11.8 fL 9.5-12.9 60102-3) NRBC/100 WBC (test See_Comment [Automat ed code = 2841558178) message] The system which generated this result transmitted reference range : 0.0 - 10.0 /100 WBCs. The refer ence range was not u sed to interpret th is result as normal/abnormal . NRBC x10^3 (test code <0.01 See_Comment [Auto mated = 3700425221) message] The s ystem which generated this result transmitted reference range : 10*3/?L. The reference range was not used to interpret this result as normal/abnormal . GRAN MAT (NEUT) % 68.2 % (test code = 770-8) IMM GRAN % (test code 0.60 % = 9040258179) LYMPH % (test code = 13.9 % 736-9) MONO % (test code = 14.2 % 5905-5) EOS % (test code = 2.5 % 713-8) BASO % (test code = 0.6 % 706-2) GRAN MAT x10^3(ANC) 2.16 10*3/uL 1.88-7.09 (test code = 0338739105) IMM GRAN x10^3 (test <0.03 0-0.06 code = 0508063839) LYMPH x10^3 (test code 0.44 10*3/uL 1.32-3.29 L = 731-0) MONO x10^3 (test code 0.45 10*3/uL 0.33-0.92 = 742-7) EOS x10^3 (test code = 0.08 10*3/uL 0.03-0.39 711-2) BASO x10^3 (test code <0.03 0.01-0.07 = 704-7) Lab Interpretation Abnormal (test code = 76073-8) [facility] StationURINALYSIS2021-01-11 23:14:00 Test Item Value Reference Range Interpretation Comments APPEARANCE (test code = Hazy Clear A 6094819001) COLOR (test code = Yellow Yellow 1688922915) PH (test code = 4.8-8.0 1709175848) SP GRAVITY (test code = 1.003-1.030 5799025910) GLU U QUAL (test code = Normal Normal 5023094068) BLOOD (test code = Negative Negative 2777439322) KETONES (test code = Negative Negative 5442005808) PROTEIN (test code = Negative Negative 2887-8) UROBILIN (test code = Normal Normal 9201991143) BILIRUBIN (test code = Negative Negative 5905671536) NITRITE (test code = Negative Negative 1226757645) LEUK EDINSON (test code = Negative Negative 6177897928) RBC/HPF (test code = See_Comment [Autom ated message] 3204266620) The system [employer] generated this result transmitted ref erence range: 0 - 3 HP F. The reference range was not used to int erpret this result as normal/abnormal . WBC/HPF (test code = See_Comment [Autom ated message] 9731063551) The system [employer] generated this result transmitted ref erence range: 0 - 5 HP F. The reference range was not used to int erpret this result as normal/abnormal . BACTERIA (test code = Few Negative A 3420224892) AMORPHOUS (test code = Rare Rare HPF 7192271744) Lab Interpretation (test Abnormal code = 37543-7) [facility] StationCANCER ANTIGEN-GI (CA 19-9)2020-10-17 21:15:00 Test Item Value Reference Range Interpretation Comments CA 19-9 (test code = 18.9 U/mL 0-35 2992528605) TANESHA (test code = TANESHA) Biotin has been reported to cause a negative bias, interpret results relative to patient's use of biotin. Lab Interpretation (test Normal code = 31360-8) [facility] [id number] 21:15:00 Test Item Value Reference Range Interpretation Comments CA-125 (test code = 9271821443) 27.0 U/mL 0-35 Lab Interpretation (test code = Normal 49501-0) [facility] StationCT THORAX W [id number] 21:02:02 1.. Findings there may be seen [...] Jenny Villafuerte at 12:45 PM viatelephone. 4. Chronic appearing moderate compression deformities at T8 and L1. Diffuseosteopenia. Preliminary Report Dictatedby Resident: Nuris Sr MD., have reviewed this study and agree with theabove report.PROCEDURE: CT CHEST WITH CONTRAST - CHEST PROTOCOL CLINICAL INDICATION: Altered mental status Comparison: ?Correlation with chest radiograph from 10/14/2020 and same-dayabdominal CT TECHNIQUE: Volumetric images of the chest were acquired (from lung apicesto bases) following administrationof intravenous contrast. Images werereconstructed at 1.25 mm slice thickness. MIP axial images, coronal andsagittal reformats were also submitted for interpretation Axial MIPs andcoronal and sagittal MPR images were generated and reviewed.. FINDINGS: Devices: The tip of the weighted feeding tube is located in themidesophagus LUNGS AND PLEURA: The lung volumes are normal. Mild diffuse bronchial wallthi ckening with occasional foci of peripheral airway impaction. No focalopacities or suspicious nodules. Small bilateral layering pleural effusions with overlying relaxationatelectasis. Rare small air cysts noted, nonspecific. LYMPH NODES: Scattered small lymph nodes in both sides of the mediastinumand hilar regions. No evidence of intrathoracic lymphadenopathy. MEDIASTINUM AND LOWER NECK: No central airway lesions are detected.Fullness at the GE junction may represent a small sliding hiatal hernia.Otherwise normal CT appearance of the esophagus. The included thyroid glandappears normal. HEART AND GREAT VESSELS: Borderline dilatation of the [...] on 301:226. OSSEOUS STRUCTURES AND SOFT TISSUES: Age- indeterminate mild to moderatecompression deformities at T8 and L1. Remote right lower rib fracturedeformities. Mild pectus excavatum. Diffuse osteopenia. No suspicious focalosseous lesions. The patient is emaciated [facility], Radiant Results Inft User - 10/17/2020 3:03 PM CSTPROCEDURE: CT CHEST WITH CONTRAST - CHEST PROTOCOLCLINICAL INDICATION: Altered mental statusComparison: Correlation with chest radiograph from 10/14/2020 and same-dayabdominal CTTECHNIQUE: Volumetric images of the chest were acquired (from lung apicesto bases) following administr ation of intravenous contrast. Images werereconstructed at 1.25 [...] pleural effusions with overlying relaxationatelectasis. Rare small air cysts noted, nonspecific.LYMPH NODES: Scattered small lymph [...] ventricle withnormal heart size. Reflux of contrast intothe IVC and hepatic veins islikely due to [...] AND SOFT TISSUES: Age- indeterminate mild to moderatecompression deformities at T8 and L1. Remote right lower rib fracturedeformities. Mild pectus excavatum. Diffuse osteopenia. No suspicious focalosseous lesions. The patient is emaciatedIMPRESSION1.. Findings there may be seen with nonspecific bronchitis/bronchialhyperreactivity. Small bilateral layering pleural effusions. Otherwise nosigns of acute cardiopulmonary process. 2. Borderline caliber of the left ventricle with normal heart size. Smallpericardial effusion. Moderate atherosclerotic disease of the aorta andcor onary vessels.3. The tip of the weighted feeding tube is located in the midesophagus,findings were relayed to charge nurse Jenny Villafuerte at 12:45 PM viatelephone.4. Chronic appearing moderate compressiondeformities at T8 and L1. Diffuseosteopenia.Preliminary Report Dictated by Resident: Farhat Brothers, Nuris Maradiaga MD., have reviewed this study and agree with theabove report.[facility]-REACTIVE [id number] 21:00:00 Test Item Value Reference Range Interpretation Comments CRP (test code = 3434990084) 0.4 mg/dL <0.8 Lab Interpretation (test code = Normal 77714-6) [facility] StationSEDIMENTATION [id number] 20:11:00 Test Item Value Reference Range Interpretation Comments ESR (test code = See_Comment [Automated message] 0815151448) The system [employer] generated this result transmitted ref erence range: 0 - 20 m m/HR. The reference r rivin was not used to interpret this result as normal/abnor mal. Lab Interpretation (test Normal code = 40525-6) [facility] METABOLIC PANEL (NA, K, CL, CO2, GLUCOSE, BUN, CREATININE, CA)2020-10-17 20:04:00 Test Item Value Reference Range Interpretation Comments NA (test code = 132 mmol/L 135-145 L 7192553887) K (test code = 3.5 mmol/L 3.5-5 2140908153) CL (test code = 99 mmol/L 98-108 5199283897) CO2 TOTAL (test code = 31 mmol/L 23-31 1387843393) AGAP (test code = 2-16 9950715158) BUN (test code = 8 mg/dL 7-23 3832440294) GLUCOSE (test code = 85 mg/dL 70-110 3030243946) CREATININE (test code = 0.33 mg/dL 0.5-1.04 L 8808403679) CALCIUM (test code = 8.7 mg/dL 8.6-10.6 9343806350) eGFR Calculation mL/min/1.73m2 (Non-) (test code = 3139947023) eGFR Calculation mL/min/1.73m2 () (test code = 7828362848) TANESHA (test code = TANESHA) Association of [...] tests). Lab Interpretation Abnormal (test code = 63014-9) [facility] StationLactic Acid Whole [id number] 19:42:00 Test Item Value Reference Range Interpretation Comments LACTIC ACID (test code = 0.79 mmol/L QUE S 0448336909) [facility] StationRHEUMATOID [id number] 18:54:00 Test Item Value Reference Range Interpretation Comments RF (test code = <20 See_Comment [Automated message] 7953675506) The system [employer] generated this result transmitted ref erence range: <20 IU/m L. The reference range was not used to int erpret this result as normal/abnormal . Lab Interpretation (test Normal code = 93836-7) [facility] StationCT ABDOMEN PELVIS W [id number] 17:28:35 1. ?Mildly dilated common duct, measuring [...] sagittalreconstructions were obtained. ?Auto mA and/or iterative reconstructionwere used to reduce radiation dose. FINDINGS: LOWER THORAX: Trace bilateral pleural effusions with adjacent compressiveatelectasis. LIVER: No focal hepatic lesions. ?Normal contour. GALLBLADDER AND BILIARY TREE: The common duct is not mildly prominent,measuring 9 mm at the cirilo hepatis. SPLEEN: No splenomegaly. PANCREAS: Atrophic pancreas. The main duct is normal in caliber. A 1.5 cmhypodensity with fluidattenuation is seen in the pancreatic head/uncinateprocess. ADRENAL GLANDS: No adrenal nodules. KIDNEYS: No hydronephrosis, or stones. A 3 mm hypodensity is noted in theright kidney, too small to characterize, but statistically likely a cyst. PERITONEUM AND RETROPERITONEUM: No free air or fluid. LYMPHNODES: No lymphadenopathy. GI TRACT: No dilation or wall thickening. PELVIS/BLADDER: The urinary bladder is mildly distended. The uterus isunremarkable. VESSELS: Atherosclerotic calcifications in the aortoiliac vessels.. BONES AND SOFT TISSUES: No suspicious lytic or sclerotic bony lesions.Diffuse subcutaneous fat stranding. Multilevel degenerative changes spine.Mild L1 anterior compressive deformitywith approximately 20% anteriorheight loss. [facility], Radiant Results Inft User - 10/17/2020 11:29 AM CSTEXAM: CT ABDOMEN/PELVIS WITH CONTRASTHISTORY: r/o Malignancy COMPARISON: NoneTECHNIQUE AND FINDINGS:Contiguous axial imaging from the level of the [...] fluid attenuation is seen in the pancreatic head/unc inateprocess.ADRENAL GLANDS: No adrenal nodules.KIDNEYS: No hydronephrosis, or [...] IPMN. Further evaluation can be obtained with correla tion with CA19-9 and MRI/MRCP.2. Age-indeterminate L1 compressive deformity with approximately 20%anterior height loss. Please correlate with point tenderness.Preliminary Report Dictated by Resident: Valeriy Naik, have personally reviewed the images and agree with theresident's interp retation and all modifications listed above.I, Celestino Naik MD., have reviewed this study and agree with theabove report.[facility] StationHCV BY [id number] 12:45:00 Test Item Value Reference Range Interpretation Comments HCV Quantitative Not Detected Not detected Interpretation (test IU/mL code = 8544499057) TANESHA (test code = TANESHA) Weaver m2000 RealTime HCV reverse education general manager-polymeras e chain reaction(RT-PCR) assay is used. It [...] ,000 IU/mL,>100,000,000 IU/mL: >upper limit of quantification. [facility] WITH [id number] 11:49:00 Test Item Value Reference Range Interpretation Comments WBC (test code = See_Comment [Automated 6990-2) message] The sy stem which generated this result transmitted reference range : 4.30 - 11.10 10*3/?L. The reference range was not used to interpret this result as normal/abnormal . RBC (test code = See_Comment L [Automated 859-8) message] The sy stem which generated this [...] RDW-SD (test code = 42.9 fL 39-49.9 96739-2) RDW-CV (test code = 13.1 % 12-15.5 788-0) PLT (test code = See_Comment [Automated 777-3) message] The sy stem which generated this result transmitted reference range : 166 - 358 10*3/ ?L. The reference r irvin was not used to interpret this result as normal/abnormal . MPV (test code = 12.2 fL 9.5-12.9 07976-8) NRBC/100 WBC (test See_Comment [Automat ed code = 9754422059) message] The system which generated this result transmitted reference range : 0.0 - 10.0 /100 WBCs. The refer ence range was not u sed to interpret th is result as normal/abnormal . NRBC x10^3 (test code <0.01 See_Comment [Auto mated = 1501215021) message] The s ystem which generated this result transmitted reference range : 10*3/?L. The reference range was not used to interpret this result as normal/abnormal . GRAN MAT (NEUT) % 70.1 % (test code = 770-8) IMM GRAN % (test code 0.40 % = 8501655422) LYMPH % (test code = 15.2 % 736-9) MONO % (test code = 11.6 % 5905-5) EOS % (test code = 2.3 % 713-8) BASO % (test code = 0.4 % 706-2) GRAN MAT x10^3(ANC) 3.37 10*3/uL 1.88-7.09 (test code = 1557164801) IMM GRAN x10^3 (test <0.03 0-0.06 code = 8480369197) LYMPH x10^3 (test code 0.73 10*3/uL 1.32-3.29 L = 731-0) MONO x10^3 (test code 0.56 10*3/uL 0.33-0.92 = 742-7) EOS x10^3 (test code = 0.11 10*3/uL 0.03-0.39 711-2) BASO x10^3 (test code <0.03 0.01-0.07 = 704-7) Lab Interpretation Abnormal (test code = 07514-2) [facility] METABOLIC PANEL (NA, K, CL, CO2, GLUCOSE, BUN, CREATININE, CA)2020-10-17 11:46:00 Test Item Value Reference Range Interpretation Comments NA (test code = 134 mmol/L 135-145 L 8244137063) K (test code = 3.3 mmol/L 3.5-5 L 9491445486) CL (test code = 100 mmol/L 98-108 0614275527) CO2 TOTAL (test code = 30 mmol/L 23-31 6120059082) AGAP (test code = 2-16 4597030397) BUN (test code = 8 mg/dL 7-23 8088627147) GLUCOSE (test code = 102 mg/dL 70-110 7667745034) CREATININE (test code = 0.37 mg/dL 0.5-1.04 L 7005262389) CALCIUM (test code = 8.5 mg/dL 8.6-10.6 L 2188510226) eGFR Calculation mL/min/1.73m2 (Non-) (test code = 8705812717) eGFR Calculation mL/min/1.73m2 () (test code = 0869427423) TANESHA (test code = TANESHA) Association of [...] tests). Lab Interpretation Abnormal (test code = 01674-1) [facility] StationMAGNESIUM2021-01-11 11:46:00 Test Item Value Reference Range Interpretation Comments MAGNESIUM (test code = 0573508237) 1.9 mg/dL 1.7-2.4 Lab Interpretation (test code = Normal 33125-1) [facility] StationMAGNESIUM2021-01-11 10:58:00MAGNESIUMComment: Please disregard previous result value, patient results are inconsistent with previous results. Notified Dr. Macario Urbina, patient will be credited. This is a corrected result. ?Previous result was 1.3 mg/dL on 10/17/2020 at 0438 [facility] SERVICESGot[facility] WITH [id number] 10:53:00 Test Item Value Reference Range Interpretation [...] RDW-SD (test code = 44.0 fL 39-49.9 81209-5) RDW-CV (test code = 13.0 % 12-15.5 788-0) PLT (test code = See_Comment L [Automated 777-3) message] The sy stem which generated this result transmitted reference range : 166 - 358 10*3/ ?L. The reference r irvin was not used to interpret this result as normal/abnormal . MPV (test code = 12.1 fL 9.5-12.9 22928-3) NRBC/100 WBC (test See_Comment [Automat ed code = 6701421534) message] The system which generated this result transmitted reference range : 0.0 - 10.0 /100 WBCs. The refer ence range was not u sed to interpret th is result as normal/abnormal . NRBC x10^3 (test code <0.01 See_Comment [Auto mated = 3331037198) message] The s ystem which generated this result transmitted reference range : 10*3/?L. The reference range was not used to interpret this result as normal/abnormal . GRAN MAT (NEUT) % 72.8 % (test code = 770-8) IMM GRAN % (test code 0.60 % = 6893219280) LYMPH % (test code = 12.5 % 736-9) MONO % (test code = 11.9 % 5905-5) EOS % (test code = 1.9 % 713-8) BASO % (test code = 0.3 % 706-2) GRAN MAT x10^3(ANC) 2.63 10*3/uL 1.88-7.09 (test code = 8733939305) IMM GRAN x10^3 (test <0.03 0-0.06 code = 7210353258) LYMPH x10^3 (test code 0.45 10*3/uL 1.32-3.29 L = 731-0) MONO x10^3 (test code 0.43 10*3/uL 0.33-0.92 = 742-7) EOS x10^3 (test code = 0.07 10*3/uL 0.03-0.39 711-2) BASO x10^3 (test code <0.03 0.01-0.07 = 704-7) Lab Interpretation Abnormal (test code = 21493-1) [facility] StationBODY FLUID DIRECT [id number] 08:48:00 Test Item Value Reference Range Interpretation Comments BF COLOR (test code = Clear 8192240224) BF WBC Count (test See_Comment [Automat ed message] The code = 6131837345) system [facility] generated this result transmit carol reference range : 0 - 5 /?L. The reference r irvin was not used to interpr et this result as anoop l/abnormal. BF RBC Count (test See_Comment [Automat ed message] The code = 6230629578) system [facility] generated this result transmit carol reference range : /?L. The reference range was not used to interpr et this result as anoop l/abnormal. [facility] StationBODY FLUID MANUAL [id number] 08:48:00 Test Item Value Reference Range Interpretation Comments BF SEGS (test code = 0772790726) 1 % 0-7 BF LYMPHS (test code = 0117843977) 18 % 28-96 L MACROPHAGE (test code = 6201071463) 6 % 16-56 L #CELS CNTD (test code = 3591820971) Lab Interpretation (test code = Abnormal 60921-8) [facility] [id number] 08:27:00 Test Item Value Reference Range Interpretation Comments GLU CSF (test code = 72 mg/dL 50-80 4445286746) UNSPUN BODY FLUID Colorless COLOR (test code = 7846174482) UNSPUN BODY FLUID Clear CLARITY (test code = 5969556404) SPUN BODY FLUID COLOR Colorless (test code = 9320885881) SPUN BODY FLUID Clear CLARITY (test code = 1554105471) Sediment (test code = The sediment volume is 3106514384) <0.01 mL of the total fluid volume of 2.5 mLs and its color is red. [facility] [id number] 08:27:00 Test Item Value Reference Range Interpretation Comments T. PRO CSF (test code = 56.0 mg/dL 15-45 H 5164548850) UNSPUN BODY FLUID COLOR Colorless (test code = 0381908733) UNSPUN BODY FLUID CLARITY Clear (test code = 3407229989) SPUN BODY FLUID COLOR Colorless (test code = 7886632918) SPUN BODY FLUID CLARITY Clear (test code = 9961457214) Sediment (test code = The sediment volume 4979399654) is <0.01 mL of the total fluid volume of 2.5 mLs and its color is red. Lab Interpretation (test Abnormal code = 99638-3) [facility] StationGLUCOSE, URINE [id number] 05:19:00 Test Item Value Reference Range Interpretation Comments GLU URINE (test code = <20 See_Comment [Aut omated message] 8154875239) The system [employer] generated this result transmitted ref erence range: <30 mg/d L. The reference range was not used to int erpret this result as normal/abnormal . Lab Interpretation (test Normal code = 24900-7) [facility] StationElectroencephalogram (EEG) - Duration of test: 20-60 [id number] 00:00:00Date and Time of Procedure: 10/17/2020, 8:49:37 - 9:10:45 REPORT TECHNICAL SUMMARY: The EEG was recorded digitally. Electrodes were applied using the International 10/20 System of electrode placement. Eye movements and rhythm strip ECG were monitored on separate channels of the ongoing EEG recording. There is no occipital dominant rhythm. The background frequency spectrum is wide, consisting primarilyof diffuse 2.5-4 Hz, 4-8 Hz, 8- 13 Hz, and 13-22 Hz activities. There is no definitive electrographicevidence of drowsiness or sleep seen. Photic stimulation does not elicit additional abnormalities. ?IMPRESSION: This study is abnormal due to:1) moderate diffuse slowing, which can be suggestive of a moderate diffuse disturbance in cerebral function but can also be related to sedating medications. No electrographic seizures or epileptiform discharges are seen. Pina Florse MD I personally interpreted the entirety of this test and agree with the abovereport written by Dr. Pina Cobos Rai, MD Date of interpretation: 10/17/2020UnFort [facility] CenterMR BRAIN WO [id number] 22:27:44 FINDINGS/IMPRESSION: Only diffusion-weighted sequences were obtained and are markedly degradedby artifact. No diffusion restriction identified within the limitations of the scan. Thescan is a still clinically needed, repeat under sedation/anesthesia isrecommended.EXAM: MR BRAIN WO CONTRAST HISTORY: Altered level of consciousness (LOC), unexplained TECHNIQUE: Only diffusion-weighted sequences of the brain were obtained. COMPARISON: CT head dated 10/13/2020. [facility], Radiant Results Inft User - 10/16/2020 4:28 PM CSTEXAM: MR BRAIN WO CONTRASTHISTORY: Altered level of consciousness (LOC), unexplained TECHNIQUE: Only diffusion-weighted sequences of the brain were obtained.COMPARISON: CT head dated 10/13/2020.IMPRESSIONFINDINGS/IMPRESSION:Only diffusion-weighted sequences were obtained and are markedly degradedby artifact.No diffusion restriction identified within the limitations of the scan. Thescan is a still clinically needed, repeat under sedation/anesthesia isrecommended.[facility] StationVITAMIN B1, [id number] 14:34:00 Test Item Value Reference Range Interpretation Comments VIT B1 (test code = 25 nmol/L 4-15 H INTERPRE TIVE DATA: ) Vitamin B1, Trevor sma Thiamine (vitam in B1) is reported. Iglesia zuluaga, thiamine diphos phate (TDP), the biologically ac tive form of thiamin e, is not found in measurable concentrations in plasma, and is best determined in w hole blood specimens . Plasma thiamine concentration r eflects recent intake r ather than body store s. Test developed and characteristics determined by [employer]. S ee Compliance Stat ement B: Ringio/CSP erforme d By: [employer] [place] [address] [id number] Director: Sherry Murillo MD Lab Interpretation Abnormal (test code = 47472-1) [facility] StationCORTISOL [id number] 12:42:00 Test Item Value Reference Range Interpretation Comments HIRA AM (test code = 21.3 ug/dL 4.5-23 6993674005) TANESHA (test code = TANESHA) Biotin has been reported to cause a positive bias, interpret results relative to patient's use of biotin. Lab Interpretation (test Normal code = 50687-2) [facility] StationBASIC METABOLIC PANEL (NA, K, CL, CO2, GLUCOSE, BUN, CREATININE, CA)2020-10-16 12:10:00 Test Item Value Reference Range Interpretation Comments NA (test code = 131 mmol/L 135-145 L 3342147276) K (test code = 3.6 mmol/L 3.5-5 4135276456) CL (test code = 99 mmol/L 98-108 5672581351) CO2 TOTAL (test code = 28 mmol/L 23-31 3623923832) AGAP (test code = 2-16 7177956888) BUN (test code = 7 mg/dL 7-23 1863222545) GLUCOSE (test code = 124 mg/dL 70-110 H 3430015891) CREATININE (test code = 0.34 mg/dL 0.5-1.04 L 3262498603) CALCIUM (test code = 8.3 mg/dL 8.6-10.6 L 0129924152) eGFR Calculation mL/min/1.73m2 (Non-) (test code = 2904251743) eGFR Calculation mL/min/1.73m2 () (test code = 2158189089) TANESHA (test code = TANESHA) Association of [...] tests). Lab Interpretation Abnormal (test code = 68979-8) [facility] BranchCAL[facility], URINE [id number] 08:47:00 Test Item Value Reference Range Interpretation Comments CA URINE (test code = 9740117003) 32.4 mg/dL [facility] StationCREATININE, URINE [id number] 08:39:00 Test Item Value Reference Range Interpretation Comments CREAT U (test code = 7349333397) 23.3 mg/dL [facility] StationOSMOLALITY [id number] 08:38:00 Test Item Value Reference Range Interpretation Comments OSMO U (test code = See_Comment [Automa carol message] 5911322988) The system [employer] generated this result transmitted ref erence range: 50-1,100 mOsm/kg. The re ference range was not u sed to interpret this result as normal/abnor mal. Lab Interpretation (test Normal code = 38999-6) [facility] StationMAGNESIUM, URINE [id number] 08:37:00 Test Item Value Reference Range Interpretation Comments MG URINE (test code = 3420024385) 31.0 mg/dL [facility] StationPOTASSIUM, URINE [id number] 08:16:00 Test Item Value Reference Range Interpretation Comments K URINE (test code = 6098858603) 49.9 mmol/L [facility] StationSODIUM, URINE [id number] 08:16:00 Test Item Value Reference Range Interpretation Comments NA URINE (test code = 8348245320) 117 mmol/L [facility] BranchCALCIUM, URINE [id number] 01:45:00 Test Item Value Reference Range Interpretation Comments CA URINE (test code = 9264696706) 34.2 mg/dL [facility] [id number] 00:29:00 Test Item Value Reference Range Interpretation Comments MAGNESIUM (test code = 3767458516) 3.3 mg/dL 1.7-2.4 H Lab Interpretation (test code = Abnormal 34723-4) [facility] StationSODIUM, URINE [id number] 00:00:00 Test Item Value Reference Range Interpretation Comments NA URINE (test code = 0564281098) 127 mmol/L [facility] METABOLIC PANEL (NA, K, CL, CO2, GLUCOSE, BUN, CREATININE, CA)2020-10-15 22:22:00 Test Item Value Reference Range Interpretation Comments NA (test code = 130 mmol/L 135-145 L 5026373198) K (test code = 3.3 mmol/L 3.5-5 L 6992998118) CL (test code = 97 mmol/L 98-108 L 5132239593) CO2 TOTAL (test code = 28 mmol/L 23-31 4333307616) AGAP (test code = 2-16 1877504620) BUN (test code = 5 mg/dL 7-23 L 7562192608) GLUCOSE (test code = 144 mg/dL 70-110 H 6113522756) CREATININE (test code = 0.37 mg/dL 0.5-1.04 L 1169091324) CALCIUM (test code = 8.1 mg/dL 8.6-10.6 L 0780616899) eGFR Calculation mL/min/1.73m2 (Non-) (test code = 0976608903) eGFR Calculation mL/min/1.73m2 () (test code = 4249749537) TANESHA (test code = TANESHA) Association of [...] tests). Lab Interpretation Abnormal (test code = 37928-0) [facility] StationOSMOLALITY [id number] 15:30:00 Test Item Value Reference Range Interpretation Comments OSMOLALITY (test code = See_Comment L [Au tomated message] 8372439198) The system [employer] generated this result transmitted ref erence range: 278 - 30 5 mOsm/kg. The reference range was not used to int erpret this result as normal/abnormal . Lab Interpretation (test Abnormal code = 48755-1) [facility] StationMAGNESIUM2021-01-09 12:04:00 Test Item Value Reference Range Interpretation Comments MAGNESIUM (test code = 6307950170) 1.5 mg/dL 1.7-2.4 L Lab Interpretation (test code = Abnormal 40587-8) [facility] StationPHOSPHORUS2021-01-09 12:04:00 Test Item Value Reference Range Interpretation Comments PHOSPHORUS (test code = 3599137560) 2.4 mg/dL 2.5-5 L Lab Interpretation (test code = Abnormal 86326-0) [facility] StationBASIC METABOLIC PANEL (NA, K, CL, CO2, GLUCOSE, BUN, CREATININE, CA)2020-10-15 12:04:00 Test Item Value Reference Range Interpretation Comments NA (test code = 129 mmol/L 135-145 L 6042526182) K (test code = 3.4 mmol/L 3.5-5 L 6124081093) CL (test code = 97 mmol/L 98-108 L 9478429789) CO2 TOTAL (test code = 27 mmol/L 23-31 9293553072) AGAP (test code = 2-16 6526455333) BUN (test code = 7 mg/dL 7-23 5246193247) GLUCOSE (test code = 101 mg/dL 70-110 7322405722) CREATININE (test code = 0.37 mg/dL 0.5-1.04 L 0829809085) CALCIUM (test code = 8.4 mg/dL 8.6-10.6 L 3291122164) eGFR Calculation mL/min/1.73m2 (Non-) (test code = 5095363772) eGFR Calculation mL/min/1.73m2 () (test code = 1092618589) TANESHA (test code = TANESHA) Association of [...] tests). Lab Interpretation Abnormal (test code = 90469-2) [facility] WITHOUT [id number] 11:51:00 Test Item Value Reference Range Interpretation Comments WBC (test code = 6690-2) See_Comment [A utomated message] The system [employer] generated this result transmit carol reference range : 4.30 - 11.10 10*3/?L. The reference range was not used to interpret this result as normal/abnormal . RBC (test code = 789-8) See_Comment L [Au tomated message] The system [employer] generated this result transmit carol reference range [...] 777-3) See_Comment [Au tomated message] The system [employer] generated this result transmit carol reference range : 166 - 358 10*3/?L. The reference range was not used to interpret this result as normal/abnormal . MPV (test code = 11.8 fL 9.5-12.9 50501-7) RDW-CV (test code = 12.6 % 12-15.5 788-0) RDW-SD (test code = 41.1 fL 39-49.9 56070-3) NRBC x10^3 (test code = <0.01 See_Comment [Au tomated message] 6438305966) The system [employer] generated this result transmit carol reference range : 10*3/?L. The reference range was not used to interpret this result as normal/abnormal . NRBC/100 WBC (test code See_Comment [Au tomated message] = 3359347498) The system [facility] generated this result transmit carol reference range : 0.0 - 10.0 /100 WBC s. The reference r irvin was not used to interpret this result as normal/abnormal . IPF % (test code = 1987025396) Lab Interpretation (test Abnormal code = 17457-1) [facility] StationXR CHEST 1 [id number] 03:35:17 No acute intrathoracic abnormality. Preliminary Report Dictated by Resident: Esraa H Al- Jabbari William Herrera MD., have reviewed this study and [...] placement COMPARISON: 10/13/2020FINDINGS:The lungs are hyperinflated. Morphology suggestsCOPD. No focalconsolidation is identified. No pleural effusion or pneumothorax is seen.The heart is normal in size.No acute bony abnormality.Gaseous distention of the transverse colon.IMPRESSIONNo acute intrathoracic abnormality.Preliminary Report Dictated by Resident: William Smith MD., have reviewed this study and agree withthe above report.[facility] StationXR [id number] 03:18:19 1. ?Dobbhoff tube tip in the gastric body.EXAM: XR KUB HISTORY: Dobbhoff tube placement COMPARISON:None recent FINDINGS: A Dobbhoff tube terminates at the gastric body. Lung bases as visualized are clear. The cardiac silhouette is not enlarged. The bowel gas distribution is nonobstructed, mild gas distention of bowelloops noted.Bones are unremarkable. [facility], Radiant Results Inft User - 10/14/2020 9:19 PM CSTEXAM: XR KUBHISTORY: Dobbhoff tube placement COMPARISON: None recentFINDINGS:A Dobbhoff tubeterminates at the gastric body.Lung bases as visualized are clear. The cardiac silhouette is not enlarged.The bowel gas distribution is nonobstructed, mild gas distention of bowelloops noted.Bones are unremarkable.IMPRESSION1. Dobbhoff tube tip in the gastric body.[facility] StationBASIC METABOLIC PANEL (NA, K, CL, CO2, GLUCOSE, BUN, CREATININE, CA)2020-10-14 21:35:00 Test Item Value Reference Range Interpretation Comments NA (test code = 128 mmol/L 135-145 L 4369117620) K (test code = 3.4 mmol/L 3.5-5 L 6185907612) CL (test code = 95 mmol/L 98-108 L 8188866691) CO2 TOTAL (test code = 25 mmol/L 23-31 2785203325) AGAP (test code = 2-16 0272040396) BUN (test code = 4 mg/dL 7-23 L 4052606852) GLUCOSE (test code = 92 mg/dL 70-110 0254191741) CREATININE (test code = 0.36 mg/dL 0.5-1.04 L 8945416662) CALCIUM (test code = 8.8 mg/dL 8.6-10.6 7176349510) eGFR Calculation mL/min/1.73m2 (Non-) (test code = 9722360254) eGFR Calculation mL/min/1.73m2 () (test code = 6895101784) TANESHA (test code = TANESHA) Association of [...] tests). Lab Interpretation Abnormal (test code = 94904-4) [facility] METABOLIC PANEL (NA, K, CL, CO2, GLUCOSE, BUN, CREATININE, CA)2020-10-14 12:04:00 Test Item Value Reference Range Interpretation Comments NA (test code = 130 mmol/L 135-145 L 7424530247) K (test code = 2.7 mmol/L 3.5-5 LL 5339760441) CL (test code = 94 mmol/L 98-108 L 9144989698) CO2 TOTAL (test code = 32 mmol/L 23-31 H 5154105182) AGAP (test code = 2-16 1551028039) BUN (test code = 3 mg/dL 7-23 L 3385120715) GLUCOSE (test code = 105 mg/dL 70-110 8082324612) CREATININE (test code = 0.32 mg/dL 0.5-1.04 L 1199487728) CALCIUM (test code = 8.2 mg/dL 8.6-10.6 L 7900406450) eGFR Calculation mL/min/1.73m2 (Non-) (test code = 3624586751) eGFR Calculation mL/min/1.73m2 () (test code = 5663505709) TANESHA (test code = TANESHA) Association of [...] tests). Lab Interpretation Abnormal (test code = 28595-7) [facility] StationMAGNESIUM2021-01-08 11:58:00 Test Item Value Reference Range Interpretation Comments MAGNESIUM (test code = 3940251090) 1.9 mg/dL 1.7-2.4 Lab Interpretation (test code = Normal 21002-0) [facility] StationPHOSPHORUS2021-01-08 11:58:00 Test Item Value Reference Range Interpretation Comments PHOSPHORUS (test code = 0947147513) 2.0 mg/dL 2.5-5 L Lab Interpretation (test code = Abnormal 87611-3) [facility] StationCBC WITHOUT [id number] 11:36:00 Test Item Value Reference Range Interpretation Comments WBC (test code = 6690-2) See_Comment [A utomated message] The system [employer] generated this result transmit carol reference range : 4.30 - 11.10 10*3/?L. The reference range was not used to interpret this result as normal/abnormal . RBC (test code = 789-8) See_Comment L [Au tomated message] The system [employer] generated this result transmit carol reference range [...] 777-3) See_Comment [Au tomated message] The system [employer] generated this result transmit carol reference range : 166 - 358 10*3/?L. The reference range was not used to interpret this result as normal/abnormal . MPV (test code = 12.2 fL 9.5-12.9 46642-0) RDW-CV (test code = 12.4 % 12-15.5 788-0) RDW-SD (test code = 39.7 fL 39-49.9 68516-5) NRBC x10^3 (test code = <0.01 See_Comment [Au tomated message] 0047980724) The system [employer] generated this result transmit carol reference range : 10*3/?L. The reference range was not used to interpret this result as normal/abnormal . NRBC/100 WBC (test code See_Comment [Au tomated message] = 1987080083) The system [facility] generated this result transmit carol reference range : 0.0 - 10.0 /100 WBC s. The reference r irvin was not used to interpret this result as normal/abnormal . IPF % (test code = 1930567254) Lab Interpretation (test Abnormal code = 52009-1) [facility] StationAMMEAGLE RIVER, [id number] 23:07:00 Test Item Value Reference Range Interpretation Comments AMMONIA (test code = 8874002417) 19 umol/L 9-33 Lab Interpretation (test code = Normal 93321-5) [facility] METABOLIC PANEL (NA, K, CL, CO2, GLUCOSE, BUN, CREATININE, CA)2020-10-13 23:06:00 Test Item Value Reference Range Interpretation Comments NA (test code = 128 mmol/L 135-145 L 0951444967) K (test code = 2.4 mmol/L 3.5-5 LL 1601588097) CL (test code = 93 mmol/L 98-108 L 9418137358) CO2 TOTAL (test code = 30 mmol/L 23-31 9560775089) AGAP (test code = 2-16 8626066845) BUN (test code = 4 mg/dL 7-23 L 1039933373) GLUCOSE (test code = 127 mg/dL 70-110 H 1201449358) CREATININE (test code = 0.34 mg/dL 0.5-1.04 L 8818780088) CALCIUM (test code = 8.4 mg/dL 8.6-10.6 L 7499590226) eGFR Calculation mL/min/1.73m2 (Non-) (test code = 8087100168) eGFR Calculation mL/min/1.73m2 () (test code = 1148903027) TANESHA (test code = TANESHA) Association of [...] tests). Lab Interpretation Abnormal (test code = 57889-7) [facility] StationCREATINE [id number] 23:04:00 Test Item Value Reference Range Interpretation Comments CK (test code = 2626528261) 120 U/L 33-194 Lab Interpretation (test code = Normal 12472-8) [facility] StationFREE [id number] 22:44:00 Test Item Value Reference Range Interpretation Comments FREE T4 (test code = See_Comment H [Autom ated message] 3785446658) The system [employer] generated this result transmitted ref erence range: 0.78 - 2 .20 ng/dL:. The ref erence range was not u sed to interpret this result as normal/abnor mal. Lab Interpretation (test Abnormal code = 13315-9) [facility] StationFREE [id number] 22:44:00 Test Item Value Reference Range Interpretation Comments FREE T3 (test code = 9444087653) 3.44 pg/mL 2.77-5.27 Lab Interpretation (test code = Normal 63209-7) [facility] StationHEPATIC FUNCTION PANEL (69334) (ALB,T.PRO,BILI T,BU/BC,ALT,AST,ALK PHOS)2020-10-13 22:26:00 Test Item Value Reference Range Interpretation Comments TOTAL BILI (test code = 2254891516) 0.5 mg/dL 0.1-1.1 BILI UNCON (test code = 1453160582) 0.5 mg/dL 0.1-1.1 BILI CONJ (test code = 5117929092) 0.0 mg/dL 0-0.3 T PROTEIN (test code = 0838212374) 6.3 g/dL 6.3-8.2 ALBUMIN (test code = 4533850334) 4.0 g/dL 3.5-5 ALK PHOS (test code = 0703465879) 75 U/L 34-122 ALTv (test code = 1742-6) 52 U/L 5-35 H AST(SGOT) (test code = 6052810314) 49 U/L 13-40 H Lab Interpretation (test code = Abnormal 80046-6) [facility] StationPHENYTOIN [id number] 17:04:00 Test Item Value Reference Range Interpretation Comments PHENY FREE (test code 1.7 ug/mL 1-2 = 4518799597) TANESHA (test code = TANESHA) Toxic Range: ? Greater than 2.5 ug/mL Test developed and characteristics determined by [facility] Laboratory Services. Lab Interpretation Normal (test code = 96178-6) [facility] StationChest 2 [id number] 16:43:20EXAM: XR CHEST 2 VW HISTORY: concern for aspiration. COMPARISON: None. FINDINGS: The heart and greatvessels are normal and the lungs are well expanded andclear. They show nothing to suggest aspiration. ? [facility], Radiant Results Inft User - 10/13/2020 10:44 AM CSTEXAM: XR CHEST 2 VWHISTORY: concern for aspiration. COMPARISON: None.FINDINGS:The heart and great vessels are normal and the lungs are well ex panded andclear. They show nothing to suggest aspiration.[facility] StationHIV 1/2 AG-AB WITH [id number] 16:39:00 Test Item Value Reference Range Interpretation Comments HIV Negative Negative Semi-quantitative (test code = 43577-2) TANESHA (test code = Non-reactive for HIV-1 TANESHA) antigen and HIV-1/HIV-2 antibodies. ?No laboratory evidence of HIV infection. ?Repeat in 2-4 weeks if acute HIV infection is suspected. [facility] StationGALV ONLY - SYPHILIS [id number] 16:13:00 Test Item Value Reference Range Interpretation Comments Syphilis IgG/IgM (test Non-reactive Non-reactive code = 53672-0) TANESHA (test code = TANESHA) Non-reactive - No serologic evidence of T. pallidum infection. Cannot exclude incubating or early syphilis. Submit a second specimen in 2-4 weeks if syphilis is clinically suspected. Equivocal - Further testing to follow. Reactive - Further testing to follow. Lab Interpretation (test Normal code = 14204-6) [facility] StationLAB ONLY COVID [id number] 15:25:00COVID DMT InterpretationInterpretation/Recommendations: Molecular NAAT Tests for [...] infections with the SARS-CoV-2 virus. ? ? Interpretation Result Comments:These interpretation comments are based upon all COVID-19 testing the patient has had at [facility], including molecular NAAT testing (more commonly known as PCR testing and Rapid ID Nowtesting) and antibody testing. It does not take into account any testing that a patient has had outsi de of the [facility] medical record. [facility] LABORATORY SERVICESCOVID EpmzbbqDMZH-IuS-3 Rapid ID NOW (no units) ? ? Date ? Value ? 10/11/2020 ? Not Detected ? [facility] LABORATORY SERVICES [facility] StationCT HEAD WO [id number] 15:08:15 No acute intracranial abnormality. Preliminary Report Dictated by Resident: Arnel Alonzo MD., have reviewed this study and [...] hemorrhage or significant mass effect.Intracranial atherosclerosis. The beaver- white matter differentiation ispreserved. The mastoid air cells and paranasal air sinuses are clear. The calvariumand central skull base are unremarkable. Pneumatization of the left petrousapex is noted. Right frontal sinus is underpne umatized. [facility], Radiant Results Inft User - 10/13/2020 9:09 [...] mass effect.Intracranial atherosclerosis. The beaver-white matter differentiation ispreserved.The mastoid air cells and paranasal air sinuses are clear. The calvariumand central skull base are unremarkable. Pneumatization of the left petrousapex is noted. Right frontal sinus is underpneumatized.IMPRESSIONNo acute intracranial abnormality.Preliminary Report Dictated by Resident: Arnel Ricci MD., have reviewed this study and agree with theabove report.[facility] StationVitamin B12 [id number] 13:28:00 Test Item Value Reference Range Interpretation Comments VIT B12 (test code = 988 pg/mL 240-930 H 1833409612) TANESHA (test code = TANESHA) Biotin has been reported to cause a positive bias, interpret results relative to patient's use of biotin. Lab Interpretation (test Abnormal code = 82523-0) [facility] StationThyroid Stimulating [id number] 13:10:00 Test Item Value Reference Range Interpretation Comments TSH (test code = See_Comment L [Automated message] 7968246001) The system [employer] generated this result transmitted ref erence range: 0.45 - 4 .70 mIU/L. The refe rence range was not u sed to interpret this result as normal/abnor mal. Lab Interpretation (test Abnormal code = 69922-7) [facility] StationTroponin [id number] 12:52:00 Test Item Value Reference Range Interpretation Comments TROPONIN I (test 0.006 ng/mL See_Comment [Automated code = 7132463000) message] The system which generated this result [...] ? Lab Interpretation Normal (test code = 73378-8) [facility] StationMagnesium [id number] 12:40:00 Test Item Value Reference Range Interpretation Comments MAGNESIUM (test code = 4775154165) 1.6 mg/dL 1.7-2.4 L Lab Interpretation (test code = Abnormal 34423-7) [facility] Drug (Immunoassay) - Comprehensive Drug [id number] 12:36:00 Test Item Value Reference Range Interpretation Comments MICHEL S (test code = Negative Negative 6434812627) BENZO S (test code = Presumptive Positive Negative A 7494125248) TRICYCLIC (test code = Negative Negative 2388332202) TANESHA (test code = TANESHA) Serum Drug Screen Cutoff Ranges Barbiturates ? ? - 3 mcg/mLBenzodiazepines ?- 50 ng/mLTCA ?- 300 ng/mL Test developed and characteristics determined by [facility] Laboratory Services. The results are to be used only for medical (i.e., treatment) purposes. Unconfirmed screening results must not be used for non-medical purposes (e.g., employment testing, legal testing). Lab Interpretation Abnormal (test code = 42034-5) [facility] Metabolic Panel (Na, K, Cl, CO2, Glucose, BUN, Creatinine, Ca)2020-10-13 12:04:00 Test Item Value Reference Range Interpretation Comments NA (test code = 130 mmol/L 135-145 L 9166689252) K (test code = 2.6 mmol/L 3.5-5 LL 0175862624) CL (test code = 94 mmol/L 98-108 L 3190078799) CO2 TOTAL (test code = 33 mmol/L 23-31 H 9884773260) AGAP (test code = 2-16 6246322954) BUN (test code = 4 mg/dL 7-23 L 0164463933) GLUCOSE (test code = 137 mg/dL 70-110 H 6562281313) CREATININE (test code = 0.33 mg/dL 0.5-1.04 L 5158028276) CALCIUM (test code = 8.6 mg/dL 8.6-10.6 0595243495) eGFR Calculation mL/min/1.73m2 (Non-) (test code = 5297530393) eGFR Calculation mL/min/1.73m2 () (test code = 6208611243) TANESHA (test code = TANESHA) Association of [...] tests). Lab Interpretation Abnormal (test code = 70574-2) [facility] StationPhosphorus [id number] 11:52:00 Test Item Value Reference Range Interpretation Comments PHOSPHORUS (test code = 3480049782) 2.5 mg/dL 2.5-5 Lab Interpretation (test code = Normal 31735-6) [facility] StationCreatine Kinase (CK)2020-10-13 11:52:00 Test Item Value Reference Range Interpretation Comments CK (test code = 2079033884) 210 U/L 33-194 H Lab Interpretation (test code = Abnormal 05938-4) [facility] StationProthrombin Time (PT) / [id number] 11:29:00 Test Item Value Reference Range Interpretation [...] tions. Lab Interpretation (test Normal code = 50666-5) [facility] StationCBC with [id number] 11:27:00 Test Item Value Reference Range Interpretation Comments WBC (test code = See_Comment [Automated 8490-2) message] The sy stem which generated this [...] RDW-SD (test code = 40.8 fL 39-49.9 24648-3) RDW-CV (test code = 12.5 % 12-15.5 788-0) PLT (test code = See_Comment [Automated 777-3) message] The sy stem which generated this result transmitted reference range : 166 - 358 10*3/ ?L. The reference r irvin was not used to interpret this result as normal/abnormal . MPV (test code = 11.8 fL 9.5-12.9 03724-9) NRBC/100 WBC (test See_Comment [Automat ed code = 8760797419) message] The system which generated this result transmitted reference range : 0.0 - 10.0 /100 WBCs. The refer ence range was not u sed to interpret th is result as normal/abnormal . NRBC x10^3 (test code <0.01 See_Comment [Auto mated = 5091754787) message] The s ystem which generated this result transmitted reference range : 10*3/?L. The reference range was not used to interpret this result as normal/abnormal . GRAN MAT (NEUT) % 77.8 % (test code = 770-8) IMM GRAN % (test code 0.40 % = 4495080841) LYMPH % (test code = 9.6 % 736-9) MONO % (test code = 12.1 % 5905-5) EOS % (test code = 0.0 % 713-8) BASO % (test code = 0.1 % 706-2) GRAN MAT x10^3(ANC) 5.61 10*3/uL 1.88-7.09 (test code = 7752019795) IMM GRAN x10^3 (test 0.03 10*3/uL 0-0.06 code = 1024940012) LYMPH x10^3 (test code 0.69 10*3/uL 1.32-3.29 L = 731-0) MONO x10^3 (test code 0.87 10*3/uL 0.33-0.92 = 742-7) EOS x10^3 (test code = <0.03 0.03-0.39 L 711-2) BASO x10^3 (test code <0.03 0.01-0.07 = 704-7) Lab Interpretation Abnormal (test code = 47933-0) [facility] StationElectroencephalogram (EEG) - Duration of test: 20-60 [id number] 00:00:00Date and Time of Procedure: 10/13/2020, 9:30:14- 9:53:29 REPORT TECHNICAL SUMMARY: The EEG was recordeddigitally. Electrodes were applied using the International 10/20 System of electrode placement. Eye m ovements, respiratory excursions and rhythm strip ECG were monitored on separate channels of the ongoing EEG recording. There is no occipital dominant rhythm. The background frequency spectrum is wide,consisting primarily of diffuse 2-4 Hz, 4-8 Hz, 8-13 Hz, and 13-22 Hz activities. There are also frequent triphasic waves. There is no definitive electrographic evidence of drowsiness or sleep seen. Photic stimulation does not elicit any abnormalities. Hyperventilation is not employed as activation technique. No electrographic seizures or epileptiform abnormalities are seen. ?IMPRESSION: This study is abnormal due to:1) moderate diffuse slowing, suggestive of a moderate diffuse disturbance in cerebral function.2) triphasic waves. This could be suggestive of a toxic or metabolic encephalopathy, but can also be seen after anoxic brain injury as well as in neurodegenerative disease. No electrographicseizures or epileptiform abnormalities are seen. The fact that there is no definitive electrographic evidence of drowsiness or sleep seen may decrease the diagnostic sensitivity of the test, as some EEG abnormalities are more commonly seen in drowsiness and sleep. Orlando Shea MD Date of interpretation: [facility]2020[facility]2020-10-12 13:39:00 Test Item Value Reference Range Interpretation Comments POCT GLU (test code = 1569111692) 165 mg/dL 70-110 H Lab Interpretation (test code = Abnormal 39122-8) [facility] GLUCOSE (AUTOMATED)2020-10-12 06:20:00 Test Item Value Reference Range Interpretation Comments POCT GLU (test code = 1158862979) 79 mg/dL 70-110 Lab Interpretation (test code = Normal 58747-5) [facility] StationCOVID-19 (ID NOW RAPID TESTING)2020-10-12 06:10:00 Test Item Value Reference Range Interpretation Comments SARS-CoV-2 Rapid ID NOW Not Detected Not Detected (test code = 29491-3) TANESHA (test code = TANESHA) ID NOW COVID-19 Assay is an isothermal nucleic acid amplification test intended for the qualitative detection of nucleic acid from SARS-CoV-2 viral RNA in 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 It is used under Emergency Use [...] indicated. Lab Interpretation Normal (test code = 59069-4) [facility] HEAD WO [id number] 04:49:02 Within the limitations of motion artifact, [...] FINDINGS: Motion artifact degrades image quality. The ventri cles and cerebral sulci are normal in caliber [...] intracranialabnormality is seen.Preliminary Report Dictated by Resident: Farhat HodgsonRepamilcar changeArnel Herrera reviewed this study and disagree with the above reportwith the following modifications:Significantly motion degraded exam. Recommend repeat examination. Arnel Herrera MD., have reviewed this study and agree with theabovereport.[facility] StationURINALYSIS2021-01-06 02:27:00 Test Item Value Reference Range Interpretation Comments APPEARANCE (test code = Hazy Clear A 9465123615) COLOR (test code = Yellow Yellow 0271535504) PH (test code = 4.8-8.0 6474369073) SP GRAVITY (test code = >=1.030 1.003-1.030 0653548486) GLU U QUAL (test code = Negative Negative 0444070153) BLOOD (test code = Moderate Negative A 4881520441) KETONES (test code = >80 mg/dL Negative A 5034110788) PROTEIN (test code = Negative Negative 2887-8) UROBILIN (test code = 0.2 mg/dL See_Comment [Auto mated message] 0740328746) The system [employer] generated this result transmit carol reference range : 0-1.0 mg/dL. Th e reference range was not used to interpret this result as normal/abnormal . BILIRUBIN (test code = Negative Negative 8881643931) NITRITE (test code = Negative Negative 1931131414) LEUK EDINSON (test code = Negative Negative 6046185721) RBC/HPF (test code = See_Comment [Autom ated message] 2159658145) The system [employer] generated this result transmit carol reference range : 0 - 3 HPF. The refe rence range was not u sed to interpret th is result as normal/abnormal . WBC/HPF (test code = See_Comment [Autom ated message] 5678426478) The system [employer] generated this result transmit carol reference range : 0 - 5 HPF. The refe rence range was not u sed to interpret th is result as normal/abnormal . BACTERIA (test code = Few Negative A 1306291293) MUCOUS (test code = Slight Negative LPF A 7266491558) Lab Interpretation (test Abnormal code = 88246-5) [facility] StationCOMP. METABOLIC PANEL (01152)2020-10-12 02:14:00 Test Item Value Reference Range Interpretation Comments NA (test code = 135 mmol/L 135-145 9498708201) K (test code = 3.6 mmol/L 3.5-5 7831709928) CL (test code = 96 mmol/L 98-108 L 9155000012) CO2 TOTAL (test code = 23 mmol/L 23-31 1537227669) AGAP (test code = 2-16 1845515667) BUN (test code = 17 mg/dL 7-23 5232195782) GLUCOSE (test code = 93 mg/dL 70-110 0019705243) CREATININE (test code = 0.45 mg/dL 0.5-1.04 L 8879905507) TOTAL BILI (test code = 0.8 mg/dL 0.1-1.9 5051424327) CALCIUM (test code = 9.4 mg/dL 8.6-10.6 6872199359) T PROTEIN (test code = 7.7 g/dL 6.3-8.2 3704807354) ALBUMIN (test code = 5.0 g/dL 3.5-5 1617654485) ALK PHOS (test code = 92 U/L 34-122 9900977958) ALTv (test code = 64 U/L 5-35 H 1742-6) AST(SGOT) (test code = 66 U/L 13-40 H 0842204433) eGFR Calculation mL/min/1.73m2 (Non-) (test code = 2674504381) eGFR Calculation mL/min/1.73m2 () (test code = 1690300290) TANESHA (test code = TANESHA) Association of [...] tests). Lab Interpretation Abnormal (test code = 98060-5) [facility] StationAD / [facility] [id number] 01:41:00 Test Item Value Reference Range Interpretation Comments BENZO U (test code = Presumptive Positive Negative A 3329682648) MICHEL U (test code = Negative Negative 9671851990) AMPHET (test code = Negative Negative 3211763480) THC (test code = Negative Negative 4047801554) METHADONE (test code = Negative Negative 3164751955) Meth U (test code = Negative Negative 6742273149) OPIATES (test code = Negative Negative 2912520739) Cocaine Metabolite (test Negative Negative code = 0339456260) PROPOXY (test code = Negative Negative 4468129622) Tric U (test code = Negative Negative 6803863787) PCP (test code = Negative Negative 2160700809) OXYCOD (test code = Negative Negative 9126670390) TANESHA (test code = TANESHA) Urine Drug [...] testing). Lab Interpretation (test Abnormal code = 74736-9) [facility] StationACETAMINOPHEN2021-01-06 01:37:00 Test Item Value Reference Range Interpretation Comments ACETAMINOP (test code = <10.0 10-30 L 9932414013) TANESHA (test code = TANESHA) Toxic: Greater than 200 ug/mL @ 4 hour post ingestion or greater than 50 ug/mL @ 12 hour post ingestion Lab Interpretation (test Abnormal code = 68356-6) [facility] StationSALICYLATE2021-01-06 01:36:00 Test Item Value Reference Range Interpretation Comments SALICYLATE (test code <10 mg/L = 9191937791) TANESHA (test code = TANESHA) Therapeutic Range: ? Analgesic and Antipyretic Use ? 20-100 mg/L ? ? Anti-Inflammatory Use ? 100-250 mg/L Toxic Range: ? Greater than 300 mg/L [facility] StationETHANOL2021-01-06 01:35:00 Test Item Value Reference Range Interpretation Comments ALCOHOL (test code = <10 mg/dL 9060331248) TANESHA (test code = TANESHA) <10 Kjbwpugf17-429 Toxic>100 Depression of BENZENE WASHER OPERATOR>400 Fatalities Reported [facility] StationAMMONIA, [id number] 01:12:00 Test Item Value Reference Range Interpretation Comments AMMONIA (test code = <9 9-33 L Slight hemolysis 4361527371) Lab Interpretation (test Abnormal code = 23291-0) [facility] StationUrinalysis2019-09-02 16:31:00 Test Item Value Reference Range Interpretation Comments APPEARANCE (test code = Clear Clear 1567576104) COLOR (test code = Yellow Yellow 5775400734) PH (test code = 4.8-8.0 4688163390) SP GRAVITY (test code = <=1.005 1.003-1.030 8813503174) GLU U QUAL (test code = Negative Negative 0768181988) BLOOD (test code = Negative Negative 0010999762) KETONES (test code = Negative Negative 3515879355) PROTEIN (test code = Negative Negative 2887-8) UROBILIN (test code = 0.2 mg/dL See_Comment [Auto mated message] 3184722762) The system [employer] generated this result transmit carol reference range : 0-1.0 mg/dL. e reference range was not used to interpret this result as normal/abnormal . BILIRUBIN (test code = Negative Negative 1234785959) NITRITE (test code = Negative Negative 1234770907) LEUK EDINSON (test code = Negative Negative 5932667721) RBC/HPF (test code = See_Comment [Autom ated message] 4575161760) The system [employer] generated this result transmit carol reference range : 0 - 3 HPF. The refe rence range was not u sed to interpret th is result as normal/abnormal . WBC/HPF (test code = See_Comment [Autom ated message] 0608522354) The system [employer] generated this result transmit carol reference range : 0 - 5 HPF. The refe rence range was not u sed to interpret th is result as normal/abnormal . BACTERIA (test code = Negative Negative 0259469841) Lab Interpretation (test Normal code = 77133-2) [facility] Metabolic Panel (NA, K, CL, CO2, GLUCOSE, BUN, CREATININE, CA)2019-06-08 16:00:00 Test Item Value Reference Range Interpretation Comments NA (test code = 140 mmol/L 135-145 2261458464) K (test code = 3.7 mmol/L 3.5-5 3075304172) CL (test code = 99 mmol/L 98-108 1189811571) CO2 TOTAL (test code = 27 mmol/L 23-31 0245018371) AGAP (test code = 2-16 4498283204) BUN (test code = 12 mg/dL 7-23 1126047834) GLUCOSE (test code = 94 mg/dL 70-110 8368985004) CREATININE (test code 0.61 mg/dL 0.5-1.04 = 8947860987) CALCIUM (test code = 9.4 mg/dL 8.6-10.6 7847867801) eGFR Calculation mL/min/1.73m2 (Non-) (test code = 2705600995) eGFR Calculation mL/min/1.73m2 () (test code = 8786786239) TANESHA (test code = TANESHA) Association of [...] or urine or abnormalities in imaging tests). [facility] StationLipase [id number] 16:00:00 Test Item Value Reference Range Interpretation Comments LIPASE (test code = 1118331160) 120 U/L 0-220 Lab Interpretation (test code = Normal 01331-4) [facility] StationHepatic Function Panel (ALB, T.PRO, BILI T, BU/BC, ALT, AST, ALK PHOS)2019-06-08 15:59:00 Test Item Value Reference Range Interpretation Comments TOTAL BILI (test code = 0090751137) 0.4 mg/dL 0.1-1.1 BILI UNCON (test code = 3582136719) 0.2 mg/dL 0.1-1.1 BILI CONJ (test code = 7740347408) 0.0 mg/dL 0-0.3 T PROTEIN (test code = 8734523319) 7.7 g/dL 6.3-8.2 ALBUMIN (test code = 2196703476) 4.8 g/dL 3.5-5 ALK PHOS (test code = 6629724013) 86 U/L 34-122 ALT(SGPT) (test code = 8422298582) 21 U/L 9-51 AST(SGOT) (test code = 7815689669) 28 U/L 13-40 Lab Interpretation (test code = Normal 66846-9) [facility] StationCBC WITH [id number] 15:47:00 Test Item Value Reference Range Interpretation Comments WBC (test code = See_Comment [Automated message] 6690-2) The system [employer] generated this result transmitted ref erence range: 4.30 - 1 1.10 10*3/?L. The re ference range was not u sed to interpret this result as normal/abnor mal. RBC (test code = See_Comment [Automated message] 209-8) The system [employer] generated this result transmitted ref erence range: [...] RDW-SD (test code 43.8 fL 39-49.9 = 82658-7) RDW-CV (test code 12.6 % 12-15.5 = 788-0) PLT (test code = See_Comment [Automated message] 777-3) The system [employer] generated this result transmitted ref erence range: 166 - 35 8 10*3/?L. The re ference range was not u sed to interpret this result as normal/abnor mal. MPV (test code = 10.6 fL 9.5-12.9 05058-7) NRBC/100 WBC (test See_Comment [Automat ed message] code = 2374806817) The syste [employer] which generated this result transmitted ref erence range: 0.0 - 10 .0 /100 WBCs. The refer ence range was not u sed to interpret this result as normal/abnor mal. NRBC x10^3 (test <0.01 See_Comment [Automated message] code = [id number]) The syste m which generated this result transmitted ref erence range: 10*3/?L. The reference range was not used to interpr et this result as normal/abnormal . GRAN MAT (NEUT) % 50.2 % (test code = 770-8) IMM GRAN % (test 0.40 % code = 7064312401) LYMPH % (test code 33.0 % = 736-9) MONO % (test code 10.8 % = 5905-5) EOS % (test code = 4.3 % 713-8) BASO % (test code 1.3 % = 706-2) GRAN MAT 2.33 10*3/uL 1.88-7.09 x10^3(ANC) (test code = 5570622057) IMM GRAN x10^3 <0.03 0-0.06 (test code = 5670058985) LYMPH x10^3 (test 1.53 10*3/uL 1.32-3.29 code = 731-0) MONO x10^3 (test 0.50 10*3/uL 0.33-0.92 code = 742-7) EOS x10^3 (test 0.20 10*3/uL 0.03-0.39 code = 711-2) BASO x10^3 (test 0.06 10*3/uL 0.01-0.07 code = 704-7) [facility] 14:11:00 Test Item Value Reference Range Interpretation Comments Segs-Bands # (test code = Segs-Bands #) 2.9 1.5-8.1 N [facility]JqohjenXYMHZOATCJ9554-58-25 14:11:00 Test Item Value Reference Range Interpretation Comments Basophils # (test code 0.0 See_Comment N [Aut omated message] The = Basophils #) system which generated this result tra nsmitted reference range : <=0.2. The reference r irvin was not used to int erpret this result as normal/abnormal . [facility] HospitalUlkrsajONLCINJBSI2717-20-77 14:11:00 Test Item Value Reference Range Interpretation Comments Eosinophils # (test code 0.1 See_Comment N [A utomated message] The = Eosinophils #) system whic h generated this result tra nsmitted reference range : <=0.5. The reference r irvin was not used to int erpret this result as normal/abnormal . [facility] HospitalRkonhcjYXBOEOYYKK6951-71-10 14:11:00 Test Item Value Reference Range Interpretation Comments Lymphocytes (test code = Lymphocytes) 34.2 20.0-40.0 N [facility] HospitalHsjdtvyCHSFOKQCUT6707-12-74 14:11:00 Test Item Value Reference Range Interpretation Comments Segs (test code = Segs) 54.7 45.0-75.0 N [facility] HospitalOoiobloKBTJFEHFSE4567-24-59 14:11:00 Test Item Value Reference Range Interpretation Comments Eosinophils (test code = 2.8 See_Comment N [A utomated message] The Eosinophils) system which ge nerated this result tra nsmitted reference range : <=4.0. The reference r irvin was not used to int erpret this result as normal/abnormal . [facility] HospitalKfufldzSEXVQRCNSU0976-83-90 14:11:00 Test Item Value Reference Range Interpretation Comments Basophils (test code = 0.2 See_Comment N [Aut omated message] The Basophils) system which ge nerated this result tra nsmitted reference range : <=1.0. The reference r irvin was not used to int erpret this result as normal/abnormal . [facility] HospitalWzygqmvVOAMZFTPEF3421-25-52 14:11:00 Test Item Value Reference Range Interpretation Comments MPV (test code = MPV) 8.6 7.4-10.4 N [facility] HospitalMqmmvyuFAJZZWXSSV1943-02-07 14:11:00 Test Item Value Reference Range Interpretation Comments Hgb (test code = Hgb) 11.6 12.0-16.0 L [facility] HospitalNgvectdUHZJUYDDTB2596-90-87 14:11:00 Test Item Value Reference Range Interpretation Comments WBC (test code = WBC) 5.2 3.7-10.4 N [facility] HospitalQdbjvbjHXUTTPYSQC1980-63-35 14:11:00 Test Item Value Reference Range Interpretation Comments RBC (test code = RBC) 3.86 4.20-5.40 L [facility] HospitalFdcionuLBBCJPWRPU4332-05-95 14:11:00 Test Item Value Reference Range Interpretation Comments Platelet (test code = Platelet) 187 133-450 N [facility] HospitalDpfdejoOWDGUYEAQN8282-37-55 14:11:00 Test Item Value Reference Range Interpretation Comments RDW (test code = RDW) 13.5 11.5-14.5 N [facility] HospitalZczrlzaAFIRARFGKY3880-90-78 14:11:00 Test Item Value Reference Range Interpretation Comments Hct (test code = Hct) 34.3 36.0-48.0 L [facility] HospitalBlflmcbWCMVBAAUMQ7192-20-13 14:11:00 Test Item Value Reference Range Interpretation Comments MCHC (test code = MCHC) 33.7 32.0-36.0 N [facility] HospitalHpevyajBOJMSJYUTX5137-43-38 14:11:00 Test Item Value Reference Range Interpretation Comments MCH (test code = MCH) 29.9 pg 27.0-31.0 N [facility] HospitalYapisqnYILTIRLXRZ7580-00-42 14:11:00 Test Item Value Reference Range Interpretation Comments MCV (test code = MCV) 88.8 81.0-99.0 N [facility]TguwxlvFBNOFUREUN6321-99-24 14:11:00 Test Item Value Reference Range Interpretation Comments CDC-HIV 1/2 Ab (test Negative *NA*(02/14/2012 code = CDC-HIV 1/2 09:11:00) Ab) [facility] ArlingtonUdrpvcuDXEFRKCUD9076-52-92 14:11:00 Test Item Value Reference Range Interpretation Comments Albumin Lvl (test code = Albumin Lvl) 3.9 3.5-5.0 N [facility] ArlingtonBechbsoEBKJILGHQ8939-07-00 14:11:00 Test Item Value Reference Range Interpretation Comments Bili Total (test code = Bili Total) 0.2 0.2-1.3 N [facility] ArlingtonBrldlhiBFZSZRRPP2622-21-68 14:11:00 Test Item Value Reference Range Interpretation Comments Alk Phos (test code = Alk Phos) 88 39-136 N [facility] ArlingtonMjrdzgnSPVAMZZPD9570-66-76 14:11:00 Test Item Value Reference Range Interpretation Comments Bili Direct (test code 0.1 See_Comment N [Aut omated message] The = Bili Direct) system which generated this result tra nsmitted reference range : <=0.3. The reference r irvin was not used to int erpret this result as anoop l/abnormal. [facility] ArlingtonBfdbqegMERDEIGLJ3108-09-61 14:11:00 Test Item Value Reference Range Interpretation Comments Total Protein (test code = Total 6.8 6.4-8.4 N Protein) [facility] ArlingtonQbiafbqVKGGMYITO2091-30-74 14:11:00 Test Item Value Reference Range Interpretation Comments Lipase Lvl (test code = Lipase Lvl) 120 73-393 N [facility] ArlingtonVaigxitJPVBKPURB7577-39-22 14:11:00 Test Item Value Reference Range Interpretation Comments Calcium Lvl (test code = Calcium Lvl) 9.0 8.5-10.5 N [facility] ArlingtonZabgbohQZHNPCZWF1372-44-45 14:11:00 Test Item Value Reference Range Interpretation Comments Chloride Lvl (test code = Chloride Lvl) 103 95-109 N [facility] ArlingtonYxxvrlvDAKVSFPEN9189-28-18 14:11:00 Test Item Value Reference Range Interpretation Comments CO2 (test code = CO2) 32 24-32 N [facility] ArlingtonOabcepkUSRULONTP5375-92-93 14:11:00 Test Item Value Reference Range Interpretation Comments Glucose Lvl (test code = Glucose Lvl) 96 70-99 N [facility] ArlingtonCmmlfazTXIKJBRLN2579-97-22 14:11:00 Test Item Value Reference Range Interpretation Comments BUN (test code = BUN) 9 7-22 N [facility] ArlingtonGxbyjfgBPVHMDWDW0194-09-96 14:11:00 Test Item Value Reference Range Interpretation Comments Creatinine Lvl (test code = Creatinine 0.8 0.5-1.4 N Lvl) [facility] ArlingtonRhneqjmSELGNFHBZ2417-16-07 14:11:00 Test Item Value Reference Range Interpretation Comments Potassium Lvl (test code = Potassium 3.9 3.5-5.1 N Lvl) [facility] ArlingtonPydhmcgSJMIGEOJL5186-73-62 14:11:00 Test Item Value Reference Range Interpretation Comments Sodium Lvl (test code = Sodium Lvl) 142 135-145 N [facility] ArlingtonUrhrqyeTRQBWULKK2987-73-02 14:11:00 Test Item Value Reference Range Interpretation Comments AGAP (test code = AGAP) 10.9 10.0-20.0 N [facility] HospitalBkvgnakDXRDTPSQTZ9084-32-59 14:11:00 Test Item Value Reference Range Interpretation Comments Monocytes (test code = Monocytes) 8.1 2.0-12.0 N [facility] HospitalXrbjldoVYVXDGIHGU5127-40-83 14:11:00 Test Item Value Reference Range Interpretation Comments Lymphocytes # (test code = Lymphocytes 1.8 1.0-5.5 N #) [facility] HospitalVznqxleHTXCHYRNRJ7775-46-33 14:11:00 Test Item Value Reference Range Interpretation Comments Monocytes # (test code 0.4 See_Comment N [Aut omated message] The = Monocytes #) system which generated this result tra nsmitted reference range : <=0.8. The reference r irvin was not used to int erpret this result as normal/abnormal . [facility] HospitalOarpadqNEJJPGFNNO3575-29-49 14:11:00 Test Item Value Reference Range Interpretation Comments Segs-Bands # (test code = Segs-Bands #) 2.9 1.5-8.1 N [facility] HospitalHwcwjxeJUSWIJDFNR4323-21-48 14:11:00 Test Item Value Reference Range Interpretation Comments Basophils # (test code 0.0 See_Comment N [Aut omated message] The = Basophils #) system which generated this result tra nsmitted reference range : <=0.2. The reference r irvin was not used to int erpret this result as normal/abnormal . [facility] HospitalWcuqntbWVYFYTPNST7176-89-04 14:11:00 Test Item Value Reference Range Interpretation Comments Eosinophils # (test code 0.1 See_Comment N [A utomated message] The = Eosinophils #) system whic h generated this result tra nsmitted reference range : <=0.5. The reference r irvin was not used to int erpret this result as normal/abnormal . [facility] HospitalPcoonolIAYEXPPLFI7145-47-27 14:11:00 Test Item Value Reference Range Interpretation Comments Lymphocytes (test code = Lymphocytes) 34.2 20.0-40.0 N [facility] HospitalKfinkvtKPHBRTBCBL5546-71-75 14:11:00 Test Item Value Reference Range Interpretation Comments Segs (test code = Segs) 54.7 45.0-75.0 N [facility] HospitalSnvmkuuBBNYZLTUNR4959-98-20 14:11:00 Test Item Value Reference Range Interpretation Comments Eosinophils (test code = 2.8 See_Comment N [A utomated message] The Eosinophils) system which ge nerated this result tra nsmitted reference range : <=4.0. The reference r irvin was not used to int erpret this result as normal/abnormal . [facility] HospitalUuegihkHAVGLBLYDA3026-61-18 14:11:00 Test Item Value Reference Range Interpretation Comments Basophils (test code = 0.2 See_Comment N [Aut omated message] The Basophils) system which ge nerated this result tra nsmitted reference range : <=1.0. The reference r irvin was not used to int erpret this result as normal/abnormal . [facility] HospitalQgnjdxwYRCNDLBMHG1433-61-60 14:11:00 Test Item Value Reference Range Interpretation Comments MPV (test code = MPV) 8.6 7.4-10.4 N [facility] HospitalCdnzaxfUDFEQRRKEQ5943-05-45 14:11:00 Test Item Value Reference Range Interpretation Comments Hgb (test code = Hgb) 11.6 12.0-16.0 L [facility] HospitalEwhmwydPTYZFMUIIQ8243-92-40 14:11:00 Test Item Value Reference Range Interpretation Comments WBC (test code = WBC) 5.2 3.7-10.4 N [facility] HospitalBpbkdszHSGHCWPKDO5275-23-91 14:11:00 Test Item Value Reference Range Interpretation Comments RBC (test code = RBC) 3.86 4.20-5.40 L [facility] HospitalYwyynpbZLZYWWDODO8073-21-77 14:11:00 Test Item Value Reference Range Interpretation Comments Platelet (test code = Platelet) 187 133-450 N [facility] HospitalVffwyjiWNUWFKLMPP4832-22-66 14:11:00 Test Item Value Reference Range Interpretation Comments RDW (test code = RDW) 13.5 11.5-14.5 N [facility] HospitalUflgcfxYGDWIWYBXR0827-20-56 14:11:00 Test Item Value Reference Range Interpretation Comments Hct (test code = Hct) 34.3 36.0-48.0 L [facility] HospitalWbxyacuPZOSXDJHLZ9836-90-48 14:11:00 Test Item Value Reference Range Interpretation Comments MCHC (test code = MCHC) 33.7 32.0-36.0 N [facility] HospitalPhbicqgVMWZZTPXWA7410-05-54 14:11:00 Test Item Value Reference Range Interpretation Comments MCH (test code = MCH) 29.9 pg 27.0-31.0 N [facility] HospitalQwnnezbACPEBXJRNH1590-61-25 14:11:00 Test Item Value Reference Range Interpretation Comments MCV (test code = MCV) 88.8 81.0-99.0 N [facility] CenterMaegnlyHIWCSYTXWX1758-84-67 14:11:00 Test Item Value Reference Range Interpretation Comments CDC-HIV 1/2 Ab (test Negative *NA*(02/14/2012 code = CDC-HIV 1/2 09:11:00) Ab) [facility] ArlingtonSsirwehFUJYCGPNC7700-26-15 14:11:00 Test Item Value Reference Range Interpretation Comments Phosphorus (test code = Phosphorus) 3.3 2.5-4.5 N [facility] ArlingtonDjlfdioHXCZKPHTD9444-85-31 14:11:00 Test Item Value Reference Range Interpretation Comments Magnesium Lvl (test code = Magnesium 2.0 1.8-2.4 N Lvl) [facility] ArlingtonJwletulFEHIVLVOA6159-75-12 14:11:00 Test Item Value Reference Range Interpretation Comments A/G Ratio (test code = A/G Ratio) 1.3 0.7-1.6 N [facility] ArlingtonHjpthzuSOXTKSXOU3115-02-31 14:11:00 Test Item Value Reference Range Interpretation Comments Globulin (test code = Globulin) 2.9 2.0-4.0 N [facility] ArlingtonHnobindLKQIYRDHW6929-74-35 14:11:00 Test Item Value Reference Range Interpretation Comments Bili Indirect (test 0.1 See_Comment N [Automa carol message] The code = Bili Indirect) system which generated this result tra nsmitted reference range : <=1.0. The reference r irvin was not used to int erpret this result as normal/abnormal . [facility] ArlingtonKebmhblIGEIMNUIZ2500-78-97 14:11:00 Test Item Value Reference Range Interpretation Comments AST (test code = AST) 24 See_Comment N [Auto mated message] The system which ge nerated this result transmit carol reference range : <=37. The reference range was not used to interpr et this result as anoop l/abnormal. [facility] ArlingtonLbzbsfpSHMRXWTRM5760-26-80 14:11:00 Test Item Value Reference Range Interpretation Comments ALT (test code = ALT) 35 See_Comment N [Auto mated message] The system which ge nerated this result transmit carol reference range : <=65. The reference range was not used to interpr et this result as anoop l/abnormal. [facility] ArlingtonGamvjevZIAUKPIOB1442-12-16 14:11:00 Test Item Value Reference Range Interpretation Comments Albumin Lvl (test code = Albumin Lvl) 3.9 3.5-5.0 N [facility] ArlingtonSrnaevjOPTUBZCDY6281-78-10 14:11:00 Test Item Value Reference Range Interpretation Comments Bili Total (test code = Bili Total) 0.2 0.2-1.3 N [facility] ArlingtonIrwxwboTFWUNBZEU5356-11-95 14:11:00 Test Item Value Reference Range Interpretation Comments Alk Phos (test code = Alk Phos) 88 39-136 N [facility] ArlingtonYlrwhvyVFRLXRQTF0097-15-48 14:11:00 Test Item Value Reference Range Interpretation Comments Bili Direct (test code 0.1 See_Comment N [Aut omated message] The = Bili Direct) system which generated this result tra nsmitted reference range : <=0.3. The reference r irvin was not used to int erpret this result as anoop l/abnormal. [facility] ArlingtonEuytvfuALIRICMIN6517-65-44 14:11:00 Test Item Value Reference Range Interpretation Comments Total Protein (test code = Total 6.8 6.4-8.4 N Protein) [facility] ArlingtonSyabwlxVWBPCYWHA7535-81-97 14:11:00 Test Item Value Reference Range Interpretation Comments Lipase Lvl (test code = Lipase Lvl) 120 73-393 N [facility] ArlingtonNqqlmopAYXMKTDGD2435-43-01 14:11:00 Test Item Value Reference Range Interpretation Comments Calcium Lvl (test code = Calcium Lvl) 9.0 8.5-10.5 N [facility] ArlingtonDqnfwnjCLTCHBVDR8431-21-20 14:11:00 Test Item Value Reference Range Interpretation Comments Phosphorus (test code = Phosphorus) 3.3 2.5-4.5 N [facility] ArlingtonYpkwaqaNIOOPKQBI3345-88-70 14:11:00 Test Item Value Reference Range Interpretation Comments Chloride Lvl (test code = Chloride Lvl) 103 95-109 N [facility] ArlingtonQvwssuoZUHVOVBGG0257-47-05 14:11:00 Test Item Value Reference Range Interpretation Comments CO2 (test code = CO2) 32 24-32 N [facility] ArlingtonFqocoepVCXJGVHHL4377-04-07 14:11:00 Test Item Value Reference Range Interpretation Comments Glucose Lvl (test code = Glucose Lvl) 96 70-99 N [facility] ArlingtonRljixjeFCOPLWRIG3673-60-97 14:11:00 Test Item Value Reference Range Interpretation Comments BUN (test code = BUN) 9 7-22 N [facility] ArlingtonLfwfdnbVJUMBSXRJ4952-83-97 14:11:00 Test Item Value Reference Range Interpretation Comments Creatinine Lvl (test code = Creatinine 0.8 0.5-1.4 N Lvl) [facility] ArlingtonQpmijjeAWQULEMXO5769-74-81 14:11:00 Test Item Value Reference Range Interpretation Comments Potassium Lvl (test code = Potassium 3.9 3.5-5.1 N Lvl) [facility] ArlingtonUzousbyOEOULNJFK5277-58-03 14:11:00 Test Item Value Reference Range Interpretation Comments Sodium Lvl (test code = Sodium Lvl) 142 135-145 N [facility] ArlingtonUrunzhxJCXEXZGIM8413-03-70 14:11:00 Test Item Value Reference Range Interpretation Comments AGAP (test code = AGAP) 10.9 10.0-20.0 N [facility] HospitalHjwcbycWNHSLRJRRF1191-97-27 14:11:00 Test Item Value Reference Range Interpretation Comments Monocytes (test code = Monocytes) 8.1 2.0-12.0 N [facility] HospitalDtybwcqOEEYMOESIN1638-35-60 14:11:00 Test Item Value Reference Range Interpretation Comments Lymphocytes # (test code = Lymphocytes 1.8 1.0-5.5 N #) [facility] ArlingtonXhzvhpyFLBQEYHAG4755-06-68 14:11:00 Test Item Value Reference Range Interpretation Comments Magnesium Lvl (test code = Magnesium 2.0 1.8-2.4 N Lvl) [facility] HospitalSnrmlyjCXIZBJMNOP3027-46-68 14:11:00 Test Item Value Reference Range Interpretation Comments Monocytes # (test code 0.4 See_Comment N [Aut omated message] The = Monocytes #) system which generated this result tra nsmitted reference range : <=0.8. The reference r irvin was not used to int erpret this result as normal/abnormal . [facility] HospitalGckrmcuFCJGKJHOUI6305-60-22 14:11:00 Test Item Value Reference Range Interpretation Comments Segs-Bands # (test code = Segs-Bands #) 2.9 1.5-8.1 N [facility] HospitalJnuukfyBPCNCRZHGM3173-53-36 14:11:00 Test Item Value Reference Range Interpretation Comments Basophils # (test code 0.0 See_Comment N [Aut omated message] The = Basophils #) system which generated this result tra nsmitted reference range : <=0.2. The reference r irvin was not used to int erpret this result as normal/abnormal . [facility] HospitalMwoiuefVUHKHPHRCO7188-98-93 14:11:00 Test Item Value Reference Range Interpretation Comments Eosinophils # (test code 0.1 See_Comment N [A utomated message] The = Eosinophils #) system whic h generated this result tra nsmitted reference range : <=0.5. The reference r irvin was not used to int erpret this result as normal/abnormal . [facility] HospitalUrkhbhvNVPRIHXDEC4977-17-73 14:11:00 Test Item Value Reference Range Interpretation Comments Lymphocytes (test code = Lymphocytes) 34.2 20.0-40.0 N [facility] HospitalPoepxzrCZIGVYYDZU5149-14-98 14:11:00 Test Item Value Reference Range Interpretation Comments Segs (test code = Segs) 54.7 45.0-75.0 N [facility] HospitalZcktdykSMEFFACPZL1823-01-31 14:11:00 Test Item Value Reference Range Interpretation Comments Eosinophils (test code = 2.8 See_Comment N [A utomated message] The Eosinophils) system which ge nerated this result tra nsmitted reference range : <=4.0. The reference r irvin was not used to int erpret this result as normal/abnormal . [facility] HospitalEynfdehFRKRDYTEIP7073-41-68 14:11:00 Test Item Value Reference Range Interpretation Comments Basophils (test code = 0.2 See_Comment N [Aut omated message] The Basophils) system which ge nerated this result tra nsmitted reference range : <=1.0. The reference r irvin was not used to int erpret this result as normal/abnormal . [facility] HospitalWkytdmfDLWZCHZGPB5019-41-27 14:11:00 Test Item Value Reference Range Interpretation Comments MPV (test code = MPV) 8.6 7.4-10.4 N [facility] HospitalTprnycuXLIMRYRHZJ3872-83-87 14:11:00 Test Item Value Reference Range Interpretation Comments Hgb (test code = Hgb) 11.6 12.0-16.0 L [facility] ArlingtonPelltsbFRDOYQIRQ5358-05-10 14:11:00 Test Item Value Reference Range Interpretation Comments A/G Ratio (test code = A/G Ratio) 1.3 0.7-1.6 N [facility] HospitalGgsbilgWYEAZBWCQW9172-74-09 14:11:00 Test Item Value Reference Range Interpretation Comments WBC (test code = WBC) 5.2 3.7-10.4 N [facility] HospitalMxuswmxOBYUATLTGD3608-87-71 14:11:00 Test Item Value Reference Range Interpretation Comments RBC (test code = RBC) 3.86 4.20-5.40 L [facility] HospitalQgaemqrNKWJVLJUAI3847-33-99 14:11:00 Test Item Value Reference Range Interpretation Comments Platelet (test code = Platelet) 187 133-450 N [facility] HospitalUrvakdrTOGPXVQJAO4460-99-92 14:11:00 Test Item Value Reference Range Interpretation Comments RDW (test code = RDW) 13.5 11.5-14.5 N [facility] HospitalUvgyqkyWICVZEJGLF8842-25-23 14:11:00 Test Item Value Reference Range Interpretation Comments Hct (test code = Hct) 34.3 36.0-48.0 L [facility] HospitalTnsmxvnCWREMUHVAW8121-45-39 14:11:00 Test Item Value Reference Range Interpretation Comments MCHC (test code = MCHC) 33.7 32.0-36.0 N [facility] HospitalPvpkftuBFDRMEDNAJ3865-43-88 14:11:00 Test Item Value Reference Range Interpretation Comments MCH (test code = MCH) 29.9 pg 27.0-31.0 N [facility] HospitalJmvvfiuCZFNKAEEPH7204-75-62 14:11:00 Test Item Value Reference Range Interpretation Comments MCV (test code = MCV) 88.8 81.0-99.0 N [facility] CenterQtdihhvUHDJAEXGQP8343-11-77 14:11:00 Test Item Value Reference Range Interpretation Comments CDC-HIV 1/2 Ab (test Negative *NA*(02/14/2012 code = CDC-HIV 1/2 09:11:00) Ab) [facility] ArlingtonJfruiwmFADMUSMSD7979-19-89 14:11:00 Test Item Value Reference Range Interpretation Comments Globulin (test code = Globulin) 2.9 2.0-4.0 N [facility] ArlingtonIyqsopmLILODKGYL4162-80-52 14:11:00 Test Item Value Reference Range Interpretation Comments Bili Indirect (test 0.1 See_Comment N [Automa carol message] The code = Bili Indirect) system which generated this result tra nsmitted reference range : <=1.0. The reference r irvin was not used to int erpret this result as normal/abnormal . [facility] ArlingtonXeuvlheGFTLZLCNP8681-41-50 14:11:00 Test Item Value Reference Range Interpretation Comments AST (test code = AST) 24 See_Comment N [Auto mated message] The system which ge nerated this result transmit carol reference range : <=37. The reference range was not used to interpr et this result as anoop l/abnormal. [facility] ArlingtonQsxcifgYFORRMIGX7162-53-14 14:11:00 Test Item Value Reference Range Interpretation Comments Phosphorus (test code = Phosphorus) 3.3 2.5-4.5 N [facility]AdvhymaUNTLNOAPI6872-17-64 14:11:00 Test Item Value Reference Range Interpretation Comments ALT (test code = ALT) 35 See_Comment N [Auto mated message] The system which ge nerated this result transmit carol reference range : <=65. The reference range was not used to interpr et this result as anoop l/abnormal. [facility] ArlingtonSbkicdxTMUCAQCQX0811-24-27 14:11:00 Test Item Value Reference Range Interpretation Comments Magnesium Lvl (test code = Magnesium 2.0 1.8-2.4 N Lvl) [facility] ArlingtonBansljkOOKEZQPYT8375-37-00 14:11:00 Test Item Value Reference Range Interpretation Comments A/G Ratio (test code = A/G Ratio) 1.3 0.7-1.6 N [facility] [place]OghscvoYQYTJBJIZ5071-43-67 14:11:00 Test Item Value Reference Range Interpretation Comments Globulin (test code = Globulin) 2.9 2.0-4.0 N [facility] ArlingtonCarqnrlEXEUBJNFD5125-61-68 14:11:00 Test Item Value Reference Range Interpretation Comments Bili Indirect (test 0.1 See_Comment N [Automa carol message] The code = Bili Indirect) system which generated this result tra nsmitted reference range : <=1.0. The reference r irvin was not used to int erpret this result as normal/abnormal . [facility] ArlingtonWzqqiioSZMDJRLNJ4720-09-60 14:11:00 Test Item Value Reference Range Interpretation Comments AST (test code = AST) 24 See_Comment N [Auto mated message] The system which ge nerated this result transmit carol reference range : <=37. The reference range was not used to interpr et this result as anoop l/abnormal. [facility]xETX[facility]HRISY1006-[facility]-97 14:11:00 Test Item Value Reference Range Interpretation Comments ALT (test code = ALT) 35 See_Comment N [Auto mated message] The system which ge nerated this result transmit carol reference range : <=65. The reference range was not used to interpr et this result as anoop l/abnormal. [facility] ArlingtonXvfgjxuXUXQVQCRU2182-20-05 14:11:00 Test Item Value Reference Range Interpretation Comments Albumin Lvl (test code = Albumin Lvl) 3.9 3.5-5.0 N [facility] ArlingtonIamzhxxUMDXTLDQX7219-99-89 14:11:00 Test Item Value Reference Range Interpretation Comments Bili Total (test code = Bili Total) 0.2 0.2-1.3 N [facility] ArlingtonVpqnigaZZAMVMSDK2981-35-61 14:11:00 Test Item Value Reference Range Interpretation Comments Alk Phos (test code = Alk Phos) 88 39-136 N [facility] ArlingtonHtoadxaXDAIZSDKH2357-13-01 14:11:00 Test Item Value Reference Range Interpretation Comments Bili Direct (test code 0.1 See_Comment N [Aut omated message] The = Bili Direct) system which generated this result tra nsmitted reference range : <=0.3. The reference r irvin was not used to int erpret this result as anoop l/abnormal. [facility] ArlingtonSfkemkoNJJQMYEKL0686-10-63 14:11:00 Test Item Value Reference Range Interpretation Comments Albumin Lvl (test code = Albumin Lvl) 3.9 3.5-5.0 N [facility] ArlingtonCfblygcWGCEQZIKK6568-36-93 14:11:00 Test Item Value Reference Range Interpretation Comments Total Protein (test code = Total 6.8 6.4-8.4 N Protein) [facility] ArlingtonUvdkysdJAPEVZALC6770-54-31 14:11:00 Test Item Value Reference Range Interpretation Comments Lipase Lvl (test code = Lipase Lvl) 120 73-393 N [facility] ArlingtonJlwloulGVKIYIUBI1479-79-55 14:11:00 Test Item Value Reference Range Interpretation Comments Calcium Lvl (test code = Calcium Lvl) 9.0 8.5-10.5 N [facility] ArlingtonUzyeujqWPXLWVHJB0093-24-42 14:11:00 Test Item Value Reference Range Interpretation Comments Chloride Lvl (test code = Chloride Lvl) 103 95-109 N [facility] ArlingtonSdabbtmBRJBFCGFZ9484-85-28 14:11:00 Test Item Value Reference Range Interpretation Comments CO2 (test code = CO2) 32 24-32 N [facility] ArlingtonGhrnwewGSYFEZZMP9261-39-12 14:11:00 Test Item Value Reference Range Interpretation Comments Glucose Lvl (test code = Glucose Lvl) 96 70-99 N [facility] ArlingtonBezksxxPLQMTMSDV7429-24-54 14:11:00 Test Item Value Reference Range Interpretation Comments BUN (test code = BUN) 9 7-22 N [facility] ArlingtonIvhlpfzFGUEELWHC8136-84-88 14:11:00 Test Item Value Reference Range Interpretation Comments Creatinine Lvl (test code = Creatinine 0.8 0.5-1.4 N Lvl) [facility] ArlingtonZwotcbaWZGWCHZCL4752-10-95 14:11:00 Test Item Value Reference Range Interpretation Comments Potassium Lvl (test code = Potassium 3.9 3.5-5.1 N Lvl) [facility] ArlingtonIgwvujrXCCNQKZWZ9432-17-00 14:11:00 Test Item Value Reference Range Interpretation Comments Sodium Lvl (test code = Sodium Lvl) 142 135-145 N [facility] ArlingtonWgacszwXEDEMRUKV3630-98-22 14:11:00 Test Item Value Reference Range Interpretation Comments Bili Total (test code = Bili Total) 0.2 0.2-1.3 N [facility] ArlingtonYipzngmODACRWZRJ0866-22-64 14:11:00 Test Item Value Reference Range Interpretation Comments AGAP (test code = AGAP) 10.9 10.0-20.0 N [facility] HospitalHosuinbEBYCDBNVEC6149-43-95 14:11:00 Test Item Value Reference Range Interpretation Comments Monocytes (test code = Monocytes) 8.1 2.0-12.0 N [facility] HospitalXresygeAMLYPADGWI3721-56-62 14:11:00 Test Item Value Reference Range Interpretation Comments Lymphocytes # (test code = Lymphocytes 1.8 1.0-5.5 N #) [facility] HospitalJratehaBOJYUVDFCE0787-09-94 14:11:00 Test Item Value Reference Range Interpretation Comments Monocytes # (test code 0.4 See_Comment N [Aut omated message] The = Monocytes #) system which generated this result tra nsmitted reference range : <=0.8. The reference r irvin was not used to int erpret this result as normal/abnormal . [facility] HospitalIpurbalTCPJPWKGRV0338-96-31 14:11:00 Test Item Value Reference Range Interpretation Comments Segs-Bands # (test code = Segs-Bands #) 2.9 1.5-8.1 N [facility] HospitalTztwuvlCPIHFLMNCZ8398-70-82 14:11:00 Test Item Value Reference Range Interpretation Comments Basophils # (test code 0.0 See_Comment N [Aut omated message] The = Basophils #) system which generated this result tra nsmitted reference range : <=0.2. The reference r irvin was not used to int erpret this result as normal/abnormal . [facility] HospitalQcuesuxMUNGWLCWPM5376-06-63 14:11:00 Test Item Value Reference Range Interpretation Comments Eosinophils # (test code 0.1 See_Comment N [A utomated message] The = Eosinophils #) system whic h generated this result tra nsmitted reference range : <=0.5. The reference r irvin was not used to int erpret this result as normal/abnormal . [facility] HospitalEerjftxGCXTCBNSEH5022-01-72 14:11:00 Test Item Value Reference Range Interpretation Comments Lymphocytes (test code = Lymphocytes) 34.2 20.0-40.0 N [facility] HospitalKenaetnHWIRBBSDMR4898-88-41 14:11:00 Test Item Value Reference Range Interpretation Comments Segs (test code = Segs) 54.7 45.0-75.0 N [facility] HospitalWwwaikoVFNMKRQKMK7839-42-98 14:11:00 Test Item Value Reference Range Interpretation Comments Eosinophils (test code = 2.8 See_Comment N [A utomated message] The Eosinophils) system which ge nerated this result tra nsmitted reference range : <=4.0. The reference r irvin was not used to int erpret this result as normal/abnormal . [facility] ArlingtonAxtsubuKQTZWOSGV1730-92-37 14:11:00 Test Item Value Reference Range Interpretation Comments Alk Phos (test code = Alk Phos) 88 39-136 N [facility] HospitalYukgmbaIUHYCYVHRA4038-78-21 14:11:00 Test Item Value Reference Range Interpretation Comments Basophils (test code = 0.2 See_Comment N [Aut omated message] The Basophils) system which ge nerated this result tra nsmitted reference range : <=1.0. The reference r irvin was not used to int erpret this result as normal/abnormal . [facility] HospitalKchenduCNKDSMJRYE3259-67-29 14:11:00 Test Item Value Reference Range Interpretation Comments MPV (test code = MPV) 8.6 7.4-10.4 N [facility] HospitalVppcwlvWCORUCHEIS8227-38-51 14:11:00 Test Item Value Reference Range Interpretation Comments Hgb (test code = Hgb) 11.6 12.0-16.0 L [facility] HospitalQauhwftLBWDDLRVCZ6231-95-79 14:11:00 Test Item Value Reference Range Interpretation Comments WBC (test code = WBC) 5.2 3.7-10.4 N [facility] HospitalUwljdlgUXYYLABUKR7189-78-84 14:11:00 Test Item Value Reference Range Interpretation Comments RBC (test code = RBC) 3.86 4.20-5.40 L [facility] HospitalKlxfomvCEPXKUGPVH0138-93-01 14:11:00 Test Item Value Reference Range Interpretation Comments Platelet (test code = Platelet) 187 133-450 N [facility] HospitalZibzwfuWOEZPHMLBS3188-99-16 14:11:00 Test Item Value Reference Range Interpretation Comments RDW (test code = RDW) 13.5 11.5-14.5 N [facility] HospitalKklpoblITHLIALYGC8013-91-71 14:11:00 Test Item Value Reference Range Interpretation Comments Hct (test code = Hct) 34.3 36.0-48.0 L [facility] HospitalTsmbseoMNDQFUHPFZ5690-74-67 14:11:00 Test Item Value Reference Range Interpretation Comments MCHC (test code = MCHC) 33.7 32.0-36.0 N [facility] HospitalDeadtjkTROJVLXZIS2900-15-70 14:11:00 Test Item Value Reference Range Interpretation Comments MCH (test code = MCH) 29.9 pg 27.0-31.0 N [facility] ArlingtonSltqgyiPHUKEDQGH4422-74-01 14:11:00 Test Item Value Reference Range Interpretation Comments Bili Direct (test code 0.1 See_Comment N [Aut omated message] The = Bili Direct) system which generated this result tra nsmitted reference range : <=0.3. The reference r irvin was not used to int erpret this result as anoop l/abnormal. [facility] CenterSqpiwksWCNRUOVEKJ3215-78-37 14:11:00 Test Item Value Reference Range Interpretation Comments MCV (test code = MCV) 88.8 81.0-99.0 N [facility]YhkrgjmWAJJXAGVYW0048-80-33 14:11:00 Test Item Value Reference Range Interpretation Comments CDC-HIV 1/2 Ab (test Negative *NA*(02/14/2012 code = CDC-HIV 1/2 09:11:00) Ab) [facility] ArlingtonRsjmmgoOFEAXVUAP3400-48-94 14:11:00 Test Item Value Reference Range Interpretation Comments Total Protein (test code = Total 6.8 6.4-8.4 N Protein) [facility] ArlingtonUibigggTHJNYOJLX2046-61-37 14:11:00 Test Item Value Reference Range Interpretation Comments Lipase Lvl (test code = Lipase Lvl) 120 73-393 N [facility] ArlingtonWqorwldOFSGFAOBI3357-83-96 14:11:00 Test Item Value Reference Range Interpretation Comments Calcium Lvl (test code = Calcium Lvl) 9.0 8.5-10.5 N [facility] ArlingtonKneaiceVJDTMUAFL4025-54-93 14:11:00 Test Item Value Reference Range Interpretation Comments Chloride Lvl (test code = Chloride Lvl) 103 95-109 N [facility] ArlingtonWpdpgbdLAOFGDYET0389-33-02 14:11:00 Test Item Value Reference Range Interpretation Comments CO2 (test code = CO2) 32 24-32 N [facility] ArlingtonJwckxpvSVTQYRIJN4780-91-29 14:11:00 Test Item Value Reference Range Interpretation Comments Glucose Lvl (test code = Glucose Lvl) 96 70-99 N [facility] ArlingtonBddsosfVVGZNAOMS4870-13-81 14:11:00 Test Item Value Reference Range Interpretation Comments BUN (test code = BUN) 9 7-22 N [facility] ArlingtonXjntaksTVOQELRIM7262-22-05 14:11:00 Test Item Value Reference Range Interpretation Comments Creatinine Lvl (test code = Creatinine 0.8 0.5-1.4 N Lvl) [facility] ArlingtonFniydwcTKHIVDIZK5695-65-41 14:11:00 Test Item Value Reference Range Interpretation Comments Potassium Lvl (test code = Potassium 3.9 3.5-5.1 N Lvl) [facility] ArlingtonQntheoiWJDEACYKJ5110-66-95 14:11:00 Test Item Value Reference Range Interpretation Comments Sodium Lvl (test code = Sodium Lvl) 142 135-145 N [facility] ArlingtonWjqtygsNREBWDSVI4104-85-82 14:11:00 Test Item Value Reference Range Interpretation Comments AGAP (test code = AGAP) 10.9 10.0-20.0 N [facility] HospitalTogmbckERUNDIPWWI3691-51-28 14:11:00 Test Item Value Reference Range Interpretation Comments Monocytes (test code = Monocytes) 8.1 2.0-12.0 N [facility] HospitalUzjoprxZVPHDOJSQF4704-86-49 14:11:00 Test Item Value Reference Range Interpretation Comments Lymphocytes # (test code = Lymphocytes 1.8 1.0-5.5 N #) [facility] HospitalXfygojgQBQNRGBXUR1978-77-28 14:11:00 Test Item Value Reference Range Interpretation Comments Monocytes # (test code 0.4 See_Comment N [Aut omated message] The = Monocytes #) system which generated this result tra nsmitted reference range : <=0.8. The reference r irvin was not used to int erpret this result as normal/abnormal . [facility] HospitalKcgfcuoJLEYGNIDSR3128-71-19 14:11:00 Test Item Value Reference Range Interpretation Comments Segs-Bands # (test code = Segs-Bands #) 2.9 1.5-8.1 N [facility] HospitalLyhwgwfYNEDYGHDWG7957-99-83 14:11:00 Test Item Value Reference Range Interpretation Comments Basophils # (test code 0.0 See_Comment N [Aut omated message] The = Basophils #) system which generated this result tra nsmitted reference range : <=0.2. The reference r irvin was not used to int erpret this result as normal/abnormal . [facility] HospitalIohsusjUYIMFUYPHJ9639-71-28 14:11:00 Test Item Value Reference Range Interpretation Comments Eosinophils # (test code 0.1 See_Comment N [A utomated message] The = Eosinophils #) system whic h generated this result tra nsmitted reference range : <=0.5. The reference r irvin was not used to int erpret this result as normal/abnormal . [facility] HospitalCdcavsnNVLYZPWMWR8693-66-64 14:11:00 Test Item Value Reference Range Interpretation Comments Lymphocytes (test code = Lymphocytes) 34.2 20.0-40.0 N [facility] HospitalYsqjzwuVOIWNAMPOL1311-52-27 14:11:00 Test Item Value Reference Range Interpretation Comments Segs (test code = Segs) 54.7 45.0-75.0 N [facility] HospitalIfhfnkbGGUKMJDWYK6185-68-40 14:11:00 Test Item Value Reference Range Interpretation Comments Eosinophils (test code = 2.8 See_Comment N [A utomated message] The Eosinophils) system which ge nerated this result tra nsmitted reference range : <=4.0. The reference r irvin was not used to int erpret this result as normal/abnormal . [facility] HospitalBfmawwfAUJOPTLMCG2650-37-02 14:11:00 Test Item Value Reference Range Interpretation Comments Basophils (test code = 0.2 See_Comment N [Aut omated message] The Basophils) system which ge nerated this result tra nsmitted reference range : <=1.0. The reference r irvin was not used to int erpret this result as normal/abnormal . [facility] HospitalHxmrbrbTYLLAONSWE9209-96-39 14:11:00 Test Item Value Reference Range Interpretation Comments MPV (test code = MPV) 8.6 7.4-10.4 N [facility] HospitalCorxvjaDTPQNKVXQV7027-91-72 14:11:00 Test Item Value Reference Range Interpretation Comments Hgb (test code = Hgb) 11.6 12.0-16.0 L [facility] HospitalZszytjtGHCLNBSNOH9205-72-62 14:11:00 Test Item Value Reference Range Interpretation Comments WBC (test code = WBC) 5.2 3.7-10.4 N [facility] HospitalGlhfrssLNJLKQEYBI3816-16-65 14:11:00 Test Item Value Reference Range Interpretation Comments RBC (test code = RBC) 3.86 4.20-5.40 L [facility] HospitalQdmlejnRUJATIYVJQ8042-95-92 14:11:00 Test Item Value Reference Range Interpretation Comments Platelet (test code = Platelet) 187 133-450 N [facility] HospitalTbtqpkkDFOLFWKOHO0467-36-16 14:11:00 Test Item Value Reference Range Interpretation Comments RDW (test code = RDW) 13.5 11.5-14.5 N [facility] HospitalZalukyeDKCULVFURY9192-21-05 14:11:00 Test Item Value Reference Range Interpretation Comments Hct (test code = Hct) 34.3 36.0-48.0 L [facility] HospitalYiqidstODZPEUVPKP8078-60-99 14:11:00 Test Item Value Reference Range Interpretation Comments MCHC (test code = MCHC) 33.7 32.0-36.0 N [facility] HospitalKcvpdpvKLABISRNUE5252-61-13 14:11:00 Test Item Value Reference Range Interpretation Comments MCH (test code = MCH) 29.9 pg 27.0-31.0 N [facility] HospitalHwhzmnrOOPTRMHRAH4900-63-37 14:11:00 Test Item Value Reference Range Interpretation Comments MCV (test code = MCV) 88.8 81.0-99.0 N [facility] HospitalRilvfxlDYJZSNGJSJ6702-47-57 14:11:00 Test Item Value Reference Range Interpretation Comments CDC-HIV 1/2 Ab (test Negative *NA*(02/14/2012 code = CDC-HIV 1/2 09:11:00) Ab) [facility] ArlingtonIxqbqgmFQRPMJTUC6590-43-28 14:11:00 Test Item Value Reference Range Interpretation Comments Phosphorus (test code = Phosphorus) 3.3 2.5-4.5 N [facility] ArlingtonHqbgzhwAHBJBXYTO7257-01-40 14:11:00 Test Item Value Reference Range Interpretation Comments Magnesium Lvl (test code = Magnesium 2.0 1.8-2.4 N Lvl) [facility] ArlingtonJtowopdOPNBMKNKF3237-30-90 14:11:00 Test Item Value Reference Range Interpretation Comments A/G Ratio (test code = A/G Ratio) 1.3 0.7-1.6 N [facility] ArlingtonHpasisbNQWPUUKRY8113-57-91 14:11:00 Test Item Value Reference Range Interpretation Comments Globulin (test code = Globulin) 2.9 2.0-4.0 N [facility] ArlingtonFeugqlrRLBFGVIYS4162-94-85 14:11:00 Test Item Value Reference Range Interpretation Comments Bili Indirect (test 0.1 See_Comment N [Automa carol message] The code = Bili Indirect) system which generated this result tra nsmitted reference range : <=1.0. The reference r irvin was not used to int erpret this result as normal/abnormal . [facility] ArlingtonCvgkuofAOJJQNWDS0167-11-05 14:11:00 Test Item Value Reference Range Interpretation Comments AST (test code = AST) 24 See_Comment N [Auto mated message] The system which ge nerated this result transmit carol reference range : <=37. The reference range was not used to interpr et this result as anoop l/abnormal. [facility] ArlingtonKezglawJOPMUESGG1941-74-83 14:11:00 Test Item Value Reference Range Interpretation Comments ALT (test code = ALT) 35 See_Comment N [Auto mated message] The system which ge nerated this result transmit carol reference range : <=65. The reference range was not used to interpr et this result as anoop l/abnormal. [facility] ArlingtonWlqcrlvSUXEUYSCV1239-36-06 14:11:00 Test Item Value Reference Range Interpretation Comments Phosphorus (test code = Phosphorus) 3.3 2.5-4.5 N [facility] ArlingtonUfoglcjXUUTGQZRG9595-36-59 14:11:00 Test Item Value Reference Range Interpretation Comments Magnesium Lvl (test code = Magnesium 2.0 1.8-2.4 N Lvl) [facility] ArlingtonQbfvmbfFXOCEVLTV7209-46-78 14:11:00 Test Item Value Reference Range Interpretation Comments A/G Ratio (test code = A/G Ratio) 1.3 0.7-1.6 N [facility] ArlingtonMfofqkeOLQFVKAWS7768-25-12 14:11:00 Test Item Value Reference Range Interpretation Comments Globulin (test code = Globulin) 2.9 2.0-4.0 N [facility] ArlingtonErgoglkLHQCQEUUA6007-80-85 14:11:00 Test Item Value Reference Range Interpretation Comments Bili Indirect (test 0.1 See_Comment N [Automa carol message] The code = Bili Indirect) system which generated this result tra nsmitted reference range : <=1.0. The reference r irvin was not used to int erpret this result as normal/abnormal . [facility] ArlingtonRxwcfmlMHSQCZLJT4394-96-25 14:11:00 Test Item Value Reference Range Interpretation Comments AST (test code = AST) 24 See_Comment N [Auto mated message] The system which ge nerated this result transmit carol reference range : <=37. The reference range was not used to interpr et this result as anoop l/abnormal. [facility] ArlingtonHrlavmkGOITLFWZT4083-51-54 14:11:00 Test Item Value Reference Range Interpretation Comments ALT (test code = ALT) 35 See_Comment N [Auto mated message] The system which ge nerated this result transmit carol reference range : <=65. The reference range was not used to interpr et this result as anoop l/abnormal. [facility] ArlingtonPuualitSLEAZCSKP4294-72-64 14:11:00 Test Item Value Reference Range Interpretation Comments Albumin Lvl (test code = Albumin Lvl) 3.9 3.5-5.0 N [facility] ArlingtonGykrwjnIXDRDXOBU9380-24-40 14:11:00 Test Item Value Reference Range Interpretation Comments Bili Total (test code = Bili Total) 0.2 0.2-1.3 N [facility] ArlingtonNygpkvdGOZFANCAU6829-08-64 14:11:00 Test Item Value Reference Range Interpretation Comments Alk Phos (test code = Alk Phos) 88 39-136 N [facility] ArlingtonVenkhcjICYWJJPGM7134-87-56 14:11:00 Test Item Value Reference Range Interpretation Comments Bili Direct (test code 0.1 See_Comment N [Aut omated message] The = Bili Direct) system which generated this result tra nsmitted reference range : <=0.3. The reference r irvin was not used to int erpret this result as anoop l/abnormal. [facility] ArlingtonMbzwfypEGBJOCHYN9905-79-87 14:11:00 Test Item Value Reference Range Interpretation Comments Total Protein (test code = Total 6.8 6.4-8.4 N Protein) [facility] ArlingtonPugfgnvBLHUHVSVZ4196-65-57 14:11:00 Test Item Value Reference Range Interpretation Comments Lipase Lvl (test code = Lipase Lvl) 120 73-393 N [facility] ArlingtonQgchiglEAZJMLKWQ3045-60-18 14:11:00 Test Item Value Reference Range Interpretation Comments Calcium Lvl (test code = Calcium Lvl) 9.0 8.5-10.5 N [facility] ArlingtonXppgjjhIXKQOLBXE0187-56-60 14:11:00 Test Item Value Reference Range Interpretation Comments Chloride Lvl (test code = Chloride Lvl) 103 95-109 N [facility] ArlingtonZxogycfBJYFSWGJB1652-31-44 14:11:00 Test Item Value Reference Range Interpretation Comments CO2 (test code = CO2) 32 24-32 N [facility] ArlingtonFxjlbdoLQPIOXGTN0636-10-23 14:11:00 Test Item Value Reference Range Interpretation Comments Glucose Lvl (test code = Glucose Lvl) 96 70-99 N [facility] ArlingtonQzzsaxpJHMMNMLGH7883-22-01 14:11:00 Test Item Value Reference Range Interpretation Comments BUN (test code = BUN) 9 7-22 N [facility] ArlingtonLydhnywKQXRRZLLM0800-47-40 14:11:00 Test Item Value Reference Range Interpretation Comments Creatinine Lvl (test code = Creatinine 0.8 0.5-1.4 N Lvl) [facility] ArlingtonRovaawnNGCYLGRSD6269-44-36 14:11:00 Test Item Value Reference Range Interpretation Comments Potassium Lvl (test code = Potassium 3.9 3.5-5.1 N Lvl) [facility] ArlingtonHagnqezZBEKYCPQM3391-92-58 14:11:00 Test Item Value Reference Range Interpretation Comments Sodium Lvl (test code = Sodium Lvl) 142 135-145 N [facility] ArlingtonLtidguoZPZGNAWZE1206-24-96 14:11:00 Test Item Value Reference Range Interpretation Comments AGAP (test code = AGAP) 10.9 10.0-20.0 N [facility] HospitalLzmlxwwENQYXJRKVH3562-55-12 14:11:00 Test Item Value Reference Range Interpretation Comments Monocytes (test code = Monocytes) 8.1 2.0-12.0 N [facility]LnohprwBICQSCWTTX2291-52-91 14:11:00 Test Item Value Reference Range Interpretation Comments Lymphocytes # (test code = Lymphocytes 1.8 1.0-5.5 N #) [facility] HospitalPqlywjlZRIGQSPLLR4947-72-20 14:11:00 Test Item Value Reference Range Interpretation Comments Monocytes # (test code 0.4 See_Comment N [Aut omated message] The = Monocytes #) system which generated this result tra nsmitted reference range : <=0.8. The reference r irvin was not used to int erpret this result as normal/abnormal . [facility] CenterRsybqmlJZUYZTJCS3533-60-53 12:45:00 Test Item Value Reference Range Interpretation Comments U Preg (test code = U Negative (02/14/2012 N Preg) 07:45:00) [facility] CenterHukdqndZMOCHHBJOY7313-68-44 12:45:00 Test Item Value Reference Range Interpretation Comments UA Urobilinogen (test code = UA 0.2 0.1-1.0 N Urobilinogen) [facility] [id number] 12:45:00 Test Item Value Reference Range Interpretation Comments UA Blood (test code = Negative (02/14/2012 N UA Blood) 07:45:00) [facility] CenterXbcvymrUVLGZNMSWS7633-31-56 12:45:00 Test Item Value Reference Range Interpretation Comments UA Leuk Est (test code Small *ABN*(02/14/2012 A = UA Leuk Est) 07:45:00) [facility] CenterQykmlnrXIKTUFLEKV7520-85-28 12:45:00 Test Item Value Reference Range Interpretation Comments UA Nitrite (test code Negative (02/14/2012 N = UA Nitrite) 07:45:00) [facility]ArcohopQUXILBCZGO1563-41-44 12:45:00 Test Item Value Reference Range Interpretation Comments UA Protein (test code Negative (02/14/2012 N = UA Protein) 07:45:00) [facility] HospitalSbxymnbGUGOGSTJDR4464-50-44 12:45:00 Test Item Value Reference Range Interpretation Comments UA Ketones (test code Negative = UA Ketones) *NA*(02/14/2012 07:45:00) [facility] HospitalSxmugjoOFLYGPYMRC9450-71-85 12:45:00 Test Item Value Reference Range Interpretation Comments UA Spec Grav (test code = UA Spec 1.005 1 Grav) [facility] HospitalAejtjalCRTQUHOKNQ1682-79-74 12:45:00 Test Item Value Reference Range Interpretation Comments UA Glucose (test code Negative (02/14/2012 N = UA Glucose) 07:45:00) [facility] HospitalYgnpjwzJBPNZNCFXC7805-40-66 12:45:00 Test Item Value Reference Range Interpretation Comments UA Bili (test code = Negative *NA*(02/14/2012 UA Bili) 07:45:00) [facility] HospitalFlcsagaJLNJBVKBHN1302-39-39 12:45:00 Test Item Value Reference Range Interpretation Comments UA pH (test code = UA pH) 7.5 1 5.0-8.0 N [facility] HospitalGlyaasnZFTYTFHARL1521-33-55 12:45:00 Test Item Value Reference Range Interpretation Comments UA Turbidity (test code = Clear (02/14/2012 N UA Turbidity) 07:45:00) [facility] HoustonAucetnmMSCJZYMVOP8737-78-12 12:45:00 Test Item Value Reference Range Interpretation Comments UA Color (test code = Yellow *NA*(02/14/2012 UA Color) 07:45:00) [facility] HospitalCglxfvgOFQCKFIKQB7437-59-14 12:45:00 Test Item Value Reference Range Interpretation Comments UA Bacteria (test code = None Seen (02/14/2012 N UA Bacteria) 07:45:00) [facility] HoustonXrfzfgpXBDHEXZGGM2120-79-81 12:45:00 Test Item Value Reference Range Interpretation Comments Micro? (test code = Performed (02/14/2012 N Micro?) 07:45:00) [facility] HoustonMytaslvZPLQAUGTDT3654-17-39 12:45:00 Test Item Value Reference Range Interpretation Comments UA WBC (test code = UA 0-2 /HPF (02/14/2012 N WBC) 07:45:00) [facility] HospitalBzihgfwYSUUUXEVEV6439-99-67 12:45:00 Test Item Value Reference Range Interpretation Comments UA Sq Epi (test code = Rare /LPF (02/14/2012 N UA Sq Epi) 07:45:00) [facility] HospitalBisamnwJNGHDMVYDY1866-56-29 12:45:00 Test Item Value Reference Range Interpretation Comments UA RBC (test None Seen See_Comment N [Automated mes brenda] code = UA RBC) (02/14/2012 The system wh ich 07:45:00) generated this result transmitted ref erence range: <=2. The reference range was not used to int erpret this result as normal/abnormal . [facility] CenterKgzmqwwUMJGNJAMT7343-49-02 12:45:00 Test Item Value Reference Range Interpretation Comments U Preg (test code = U Negative (02/14/2012 N Preg) 07:45:00) [facility]FdpukqoFNPSIGMHJR7515-34-63 12:45:00 Test Item Value Reference Range Interpretation Comments UA Urobilinogen (test code = UA 0.2 0.1-1.0 N Urobilinogen) [facility] CenterAgogvuhMVYOJAIQID2792-35-65 12:45:00 Test Item Value Reference Range Interpretation Comments UA Blood (test code = Negative (02/14/2012 N UA Blood) 07:45:00) [facility] CenterQhqkqhzQYATEGTXPH9313-36-13 12:45:00 Test Item Value Reference Range Interpretation Comments UA Leuk Est (test code Small *ABN*(02/14/2012 A = UA Leuk Est) 07:45:00) [facility] CenterVohmutsELMSAUATFG6801-49-07 12:45:00 Test Item Value Reference Range Interpretation Comments UA Nitrite (test code Negative (02/14/2012 N = UA Nitrite) 07:45:00) [facility] CenterBhvprtzSWVGVBEEGR8824-51-81 12:45:00 Test Item Value Reference Range Interpretation Comments UA Protein (test code Negative (02/14/2012 N = UA Protein) 07:45:00) [facility] CenterOitflhaSRWDGPINRL8313-28-78 12:45:00 Test Item Value Reference Range Interpretation Comments UA Ketones (test code Negative = UA Ketones) *NA*(02/14/2012 07:45:00) [facility] CenterUglpstnKNHCYMUSEX9026-01-12 12:45:00 Test Item Value Reference Range Interpretation Comments UA Spec Grav (test code = UA Spec 1.005 1 Grav) [facility] CenterYqieqhwTSDSLKAQKY4739-56-26 12:45:00 Test Item Value Reference Range Interpretation Comments UA Glucose (test code Negative (02/14/2012 N = UA Glucose) 07:45:00) [facility] CenterSosynnzWGHPQLMIQJ1663-87-34 12:45:00 Test Item Value Reference Range Interpretation Comments UA Bili (test code = Negative *NA*(02/14/2012 UA Bili) 07:45:00) [facility] HospitalBpwkwywRQFQKQFZWJ9810-99-52 12:45:00 Test Item Value Reference Range Interpretation Comments UA pH (test code = UA pH) 7.5 1 5.0-8.0 N [facility] HospitalYbaeneeMLTPUIZSYE8410-65-82 12:45:00 Test Item Value Reference Range Interpretation Comments UA Turbidity (test code = Clear (02/14/2012 N UA Turbidity) 07:45:00) [facility] HospitalWtwtwkpJUOYSRYQBU5185-96-75 12:45:00 Test Item Value Reference Range Interpretation Comments UA Color (test code = Yellow *NA*(02/14/2012 UA Color) 07:45:00) [facility] CenterXeijyvvSDIYTDSUAM2369-76-25 12:45:00 Test Item Value Reference Range Interpretation Comments UA Bacteria (test code = None Seen (02/14/2012 N UA Bacteria) 07:45:00) [facility] CenterOcktpvhOXGWSLDOWB0196-88-36 12:45:00 Test Item Value Reference Range Interpretation Comments Micro? (test code = Performed (02/14/2012 N Micro?) 07:45:00) [facility] CenterIjwvkpoCVYGJSXGGS2871-62-75 12:45:00 Test Item Value Reference Range Interpretation Comments UA WBC (test code = UA 0-2 /HPF (02/14/2012 N WBC) 07:45:00) [facility] CenterIewjnbqWZMBIUZUUP9113-05-06 12:45:00 Test Item Value Reference Range Interpretation Comments UA Sq Epi (test code = Rare /LPF (02/14/2012 N UA Sq Epi) 07:45:00) [facility] HospitalCyjxmurRBVKIHQUUA5158-26-29 12:45:00 Test Item Value Reference Range Interpretation Comments UA RBC (test None Seen See_Comment N [Automated mes brenda] code = UA RBC) (02/14/2012 The system ich 07:45:00) generated this result transmitted ref erence range: <=2. The reference range was not used to int erpret this result as normal/abnormal . [facility] CenterIuelfajMPOSVYZWI3723-53-06 12:45:00 Test Item Value Reference Range Interpretation Comments U Preg (test code = U Negative (02/14/2012 N Preg) 07:45:00) [facility] HoustonEvultsoNNSIWMPJTX0346-64-34 12:45:00 Test Item Value Reference Range Interpretation Comments UA Urobilinogen (test code = UA 0.2 0.1-1.0 N Urobilinogen) [facility] HoustonMvoyhonPXRTCJUESD8908-39-15 12:45:00 Test Item Value Reference Range Interpretation Comments UA Blood (test code = Negative (02/14/2012 N UA Blood) 07:45:00) [facility] HoustonPubkeczRPYDQOKBZD2914-69-08 12:45:00 Test Item Value Reference Range Interpretation Comments UA Leuk Est (test code Small *ABN*(02/14/2012 A = UA Leuk Est) 07:45:00) [facility] HoustonAoluuvvVVIJVPDJJR6637-18-97 12:45:00 Test Item Value Reference Range Interpretation Comments UA Nitrite (test code Negative (02/14/2012 N = UA Nitrite) 07:45:00) [facility] HoustonJameygzBHFEMJZHOW2204-53-56 12:45:00 Test Item Value Reference Range Interpretation Comments UA Protein (test code Negative (02/14/2012 N = UA Protein) 07:45:00) [facility] HoustonQknrcloLRLOSCXXGG4303-28-47 12:45:00 Test Item Value Reference Range Interpretation Comments UA Ketones (test code Negative = UA Ketones) *NA*(02/14/2012 07:45:00) [facility] HoustonEwxmxinBEQCTYLZUX6529-59-04 12:45:00 Test Item Value Reference Range Interpretation Comments UA Spec Grav (test code = UA Spec 1.005 1 Grav) [facility] HoustonXztqeafHQGRPIWZOV2439-60-71 12:45:00 Test Item Value Reference Range Interpretation Comments UA Glucose (test code Negative (02/14/2012 N = UA Glucose) 07:45:00) [facility] HoustonRnrwsgsRVUKSNSWQN1869-06-69 12:45:00 Test Item Value Reference Range Interpretation Comments UA Bili (test code = Negative *NA*(02/14/2012 UA Bili) 07:45:00) [facility] HoustonNzqeeddPHUHJJGMFL4148-31-05 12:45:00 Test Item Value Reference Range Interpretation Comments UA pH (test code = UA pH) 7.5 1 5.0-8.0 N [facility] HoustonYrilgwoPUUMMVPEUE3806-49-14 12:45:00 Test Item Value Reference Range Interpretation Comments UA Turbidity (test code = Clear (02/14/2012 N UA Turbidity) 07:45:00) [facility] SaixuxwHIWYNGLUEM3223-71-00 12:45:00 Test Item Value Reference Range Interpretation Comments UA Color (test code = Yellow *NA*(02/14/2012 UA Color) 07:45:00) [facility] HospitalHpewxtyWSUXOCREKE2418-82-52 12:45:00 Test Item Value Reference Range Interpretation Comments UA Bacteria (test code = None Seen (02/14/2012 N UA Bacteria) 07:45:00) [facility] HospitalMnmcpbkHNPNRCHWXO5164-87-51 12:45:00 Test Item Value Reference Range Interpretation Comments Micro? (test code = Performed (02/14/2012 N Micro?) 07:45:00) [facility] HospitalMhzvtawYNJHXYNALI9011-00-78 12:45:00 Test Item Value Reference Range Interpretation Comments UA WBC (test code = UA 0-2 /HPF (02/14/2012 N WBC) 07:45:00) [facility] HospitalJbolmqpBSAATILBIL0218-82-41 12:45:00 Test Item Value Reference Range Interpretation Comments UA Sq Epi (test code = Rare /LPF (02/14/2012 N UA Sq Epi) 07:45:00) [facility] HospitalMazgvvcOJCTDGOBGT3182-44-04 12:45:00 Test Item Value Reference Range Interpretation Comments UA RBC (test None Seen See_Comment N [Automated mes brenda] code = UA RBC) (02/14/2012 The system ich 07:45:00) generated this result transmitted ref erence range: <=2. The reference range was not used to int erpret this result as normal/abnormal . [facility] HospitalAtpclmzKLGEGNMHM4315-31-54 12:45:00 Test Item Value Reference Range Interpretation Comments U Preg (test code = U Negative (02/14/2012 N Preg) 07:45:00) [facility] HospitalUgystgnVLLFEVNDXI5026-58-07 12:45:00 Test Item Value Reference Range Interpretation Comments UA Urobilinogen (test code = UA 0.2 0.1-1.0 N Urobilinogen) [facility] HospitalMhndzmbBYHPIOYBBW4053-51-17 12:45:00 Test Item Value Reference Range Interpretation Comments UA Blood (test code = Negative (02/14/2012 N UA Blood) 07:45:00) [facility] HoustonYnesfogRXEBLYURXI4210-26-25 12:45:00 Test Item Value Reference Range Interpretation Comments UA Leuk Est (test code Small *ABN*(02/14/2012 A = UA Leuk Est) 07:45:00) [facility] HoustonBilvsgwBTMXWSHMYX0562-73-19 12:45:00 Test Item Value Reference Range Interpretation Comments UA Nitrite (test code Negative (02/14/2012 N = UA Nitrite) 07:45:00) [facility] HoustonIbkhkzeCMIWDLXBMY7688-52-35 12:45:00 Test Item Value Reference Range Interpretation Comments UA Protein (test code Negative (02/14/2012 N = UA Protein) 07:45:00) [facility] HoustonCzdwinbPRHOERJYIS4218-37-79 12:45:00 Test Item Value Reference Range Interpretation Comments UA Ketones (test code Negative = UA Ketones) *NA*(02/14/2012 07:45:00) [facility] HoustonCrwvciyEEFNKPHLSN7188-70-84 12:45:00 Test Item Value Reference Range Interpretation Comments UA Spec Grav (test code = UA Spec 1.005 1 Grav) [facility] HoustonDbvchcpGSJBRQCHFJ3675-94-45 12:45:00 Test Item Value Reference Range Interpretation Comments UA Glucose (test code Negative (02/14/2012 N = UA Glucose) 07:45:00) [facility] HoustonSzsowwmQHHZTHIWDM4315-36-23 12:45:00 Test Item Value Reference Range Interpretation Comments UA Bili (test code = Negative *NA*(02/14/2012 UA Bili) 07:45:00) [facility] HoustonGzpypqnNCNBZOZKJQ4924-57-68 12:45:00 Test Item Value Reference Range Interpretation Comments UA pH (test code = UA pH) 7.5 1 5.0-8.0 N [facility] HoustonVnnxkyhUMPPTSWVCT9682-37-67 12:45:00 Test Item Value Reference Range Interpretation Comments UA Turbidity (test code = Clear (02/14/2012 N UA Turbidity) 07:45:00) [facility] HoustonVrbkkbzUUXXKHUVKH5225-54-96 12:45:00 Test Item Value Reference Range Interpretation Comments UA Color (test code = Yellow *NA*(02/14/2012 UA Color) 07:45:00) [facility] HoustonByvyazkMFNTQURTBH8891-18-39 12:45:00 Test Item Value Reference Range Interpretation Comments UA Bacteria (test code = None Seen (02/14/2012 N UA Bacteria) 07:45:00) [facility] HospitalRtpkafnXYIBKHMLSD7450-70-50 12:45:00 Test Item Value Reference Range Interpretation Comments Micro? (test code = Performed (02/14/2012 N Micro?) 07:45:00) [facility] HospitalXbkyfaaIHJWNCVIPY0491-49-64 12:45:00 Test Item Value Reference Range Interpretation Comments UA WBC (test code = UA 0-2 /HPF (02/14/2012 N WBC) 07:45:00) [facility] HospitalAjrwawiXXQHCZJXJX0610-55-10 12:45:00 Test Item Value Reference Range Interpretation Comments UA Sq Epi (test code = Rare /LPF (02/14/2012 N UA Sq Epi) 07:45:00) [facility] HospitalDpeiatbYRRUELICHW6388-58-64 12:45:00 Test Item Value Reference Range Interpretation Comments UA RBC (test None Seen See_Comment N [Automated mes brenda] code = UA RBC) (02/14/2012 The system wh ich 07:45:00) generated this result transmitted ref erence range: <=2. The reference range was not used to int erpret this result as normal/abnormal . [facility] HospitalWemxlkrHHNVYGEEL9567-46-15 12:45:00 Test Item Value Reference Range Interpretation Comments U Preg (test code = U Negative (02/14/2012 N Preg) 07:45:00) [facility] HospitalItxpekpHKDXLCBFYK9498-03-96 12:45:00 Test Item Value Reference Range Interpretation Comments UA Urobilinogen (test code = UA 0.2 0.1-1.0 N Urobilinogen) [facility] HospitalLpyzycgJTZUOYUQHR7361-10-81 12:45:00 Test Item Value Reference Range Interpretation Comments UA Blood (test code = Negative (02/14/2012 N UA Blood) 07:45:00) [facility] HospitalYmkbkooWVJRRBMMVD5055-55-05 12:45:00 Test Item Value Reference Range Interpretation Comments UA Leuk Est (test code Small *ABN*(02/14/2012 A = UA Leuk Est) 07:45:00) [facility] HospitalCzfvlbnVJEVVFFZLB5926-56-02 12:45:00 Test Item Value Reference Range Interpretation Comments UA Nitrite (test code Negative (02/14/2012 N = UA Nitrite) 07:45:00) [facility] HoustonIsrdnivKKSLSEYCHI8318-01-95 12:45:00 Test Item Value Reference Range Interpretation Comments UA Protein (test code Negative (02/14/2012 N = UA Protein) 07:45:00) [facility] HoustonGtophuqMPPZUJATUE5446-00-88 12:45:00 Test Item Value Reference Range Interpretation Comments UA Ketones (test code Negative = UA Ketones) *NA*(02/14/2012 07:45:00) [facility] HoustonDicsadcVXTCUUVMYL2264-38-31 12:45:00 Test Item Value Reference Range Interpretation Comments UA Spec Grav (test code = UA Spec 1.005 1 Grav) [facility] HoustonAaolqwgBWGICZGOOU5085-56-96 12:45:00 Test Item Value Reference Range Interpretation Comments UA Glucose (test code Negative (02/14/2012 N = UA Glucose) 07:45:00) [facility] HoustonHhiglukCXXHZRLNNG7256-50-30 12:45:00 Test Item Value Reference Range Interpretation Comments UA Bili (test code = Negative *NA*(02/14/2012 UA Bili) 07:45:00) [facility] HoustonQmgefltEBDOKPUYQH0412-57-12 12:45:00 Test Item Value Reference Range Interpretation Comments UA pH (test code = UA pH) 7.5 1 5.0-8.0 N [facility] HoustonFezizkkLHOQFQYHSR1313-11-48 12:45:00 Test Item Value Reference Range Interpretation Comments UA Turbidity (test code = Clear (02/14/2012 N UA Turbidity) 07:45:00) [facility] HoustonEpnvpoeHFOBCIXMVA3639-70-97 12:45:00 Test Item Value Reference Range Interpretation Comments UA Color (test code = Yellow *NA*(02/14/2012 UA Color) 07:45:00) [facility] HoustonItmebviYQNNVDSVWF5499-20-43 12:45:00 Test Item Value Reference Range Interpretation Comments UA Bacteria (test code = None Seen (02/14/2012 N UA Bacteria) 07:45:00) [facility] HoustonFvscavyKJDJUDOFWF4806-66-70 12:45:00 Test Item Value Reference Range Interpretation Comments Micro? (test code = Performed (02/14/2012 N Micro?) 07:45:00) [facility] HoustonTllxdksECAXVXDXRG4659-29-27 12:45:00 Test Item Value Reference Range Interpretation Comments UA WBC (test code = UA 0-2 /HPF (02/14/2012 N WBC) 07:45:00) [facility] CenterMtzpztyRYGXODGYJS2958-78-24 12:45:00 Test Item Value Reference Range Interpretation Comments UA Sq Epi (test code = Rare /LPF (02/14/2012 N UA Sq Epi) 07:45:00) [facility] CenterZavrnngHHEUBWQEDP7758-50-46 12:45:00 Test Item Value Reference Range Interpretation Comments UA RBC (test None Seen See_Comment N [Automated mes brenda] code = UA RBC) (02/14/2012 The system wh ich 07:45:00) generated this result transmitted ref erence range: <=2. The reference range was not used to int erpret this result as normal/abnormal . [facility]
[2022-12-08] MEDS ORDERED: FENTANYL CITR 100 MCG/2 ML ONE (14:08)
[2022-12-08 14:17] LABS: Absolute Lymphocytes (CBC) 0.3 K/uL (0.7-4.9); Lymphocytes % 5.6 % (15.3-44.8); MCV 93.4 fL (80-100); MPV 9.6 fL (7.6-11.3); RBC Red Blood Cell Count 3.11 M/uL (3.86-4.86)
[2022-12-08 14:19] LABS: Protime INR 1.03
[2022-12-08 14:35] LABS: Potassium 3.7 mmol/L (3.5-5.1)
--- NOTE | 2022-12-08 14:41 | RAD REPORT ---
EXAM DESCRIPTION: CT - Head C Spine Cap Wo Con - 12/08/2022 2:25 pm CLINICAL HISTORY: fall COMPARISON: Head C Spine Cap Wo Con dated 12/16/2021; Head C Spine Cap W Con dated 07/03/2021 TECHNIQUE: Head and cervical spine CT images were obtained without IV contrast. Chest, abdomen, and pelvis CT images were obtained following intravenous administration of 90 mL Isovue-300. Multiplanar reformats were generated and reviewed. All CT scans are performed using dose optimization technique as appropriate and may include automated exposure control or mA/KV adjustment according to patient size. FINDINGS: CT HEAD: No intracranial hemorrhage, mass effect, or edema. No evidence of acute territorial infarct. No midli ne shift or abnormal fluid collection. The ventricles are normal in caliber and configuration for age . Basal cisterns are patent. Mastoid aircells and paranasal sinuses are clear. No acute skull fractur e. CT CERVICAL SPINE: No acute cervical spine fracture or subluxation. Vertebral body heights are well maintained. Facet bob ints are normal in alignment. No hyperattenuating canal hematoma. Prevertebral and paraspinous soft t issues are unremarkable. Multilevel mild degenerative changes. CT CHEST: No pneumothorax, pulmonary contusion or pleural fluid collection. No mediastinal hematoma and the aor ta and pulmonary arteries are unremarkable. No chest will mass or abnormal axillary finding. No displ aced rib fracture or other significant bony finding. CT ABDOMEN/ PELVIS: No evidence of traumatic injury to solid abdominal viscera. Gallbladder and biliary tree are unremark able. No bowel injury or significant finding. 2 millimeter right midpole and lower pole renal calculi . Diffuse body wall and mesenteric edema. No free air, free fluid or abnormal fat stranding, although evaluation is limited by paucity of the intra-abdominal fat, beam hardening artifact, and streak art ifact at the level of the pelvis resulting from a right total hip arthroplasty. . No urinary bladder abnormality. No significant bony finding. Healing left superior and inferior pubic ramus fractures with callus fo rmation. Inferior endplate T12, and superior endplate T8 and T9 compression deformities with underlyi ng sclerosis appear progressive compared to the most recent prior CT, of indeterminate age, but favor ed to be chronic. Please correlate for any focal symptoms at that level. Stable chronic appearing sup erior endplate L1 compression fracture. IMPRESSION: No significant CT Head or cervical spine finding. No significant CT Chest finding. Compression deformities at T8, T9, and T12, appear progressive compared to the most recent CT, of ind eterminate age, but favored to be chronic. Please correlate for any focal symptoms at those levels. N o other evidence of an acute intra-abdominal or intrapelvic traumatic process.
--- NOTE | 2022-12-08 15:20 | ER ---
Nurse's Notes [facility] Name: Chica Flores Age: 67 yrs Sex: Female : 1955 Arrival Date: 12/08/2022 Time: 13:47 Bed 7 Private MD: Diagnosis: Pain in right hip;Dorsalgia, unspecified Presentation: 12/08 13:47 Chief complaint: EMS states: called to [facility] for patient with hip pain. [facility] kr3 staff found patient scooting down the [place] on her bottom. Patient states "I slipped out of bed and was going to get me some tea from the people". Coronavirus screen: Vaccine status: Patient reports receiving the 2nd dose of the covid vaccine. Ebola Screen: Patient denies travel to an Ebola-affected area in the 21 days before illness onset. Initial Sepsis Screen: Does the patient meet any 2 criteria? No. Patient's initial sepsis screen is negative. Does the patient have a suspected source of infection? No. Patient's initial sepsis screen is negative. Risk Assessment: Do you want to hurt yourself or someone else? Patient reports no desire to harm self or others. Onset of symptoms was December 08, 2022. 13:47 Method Of Arrival: EMS: [facility] kr3 13:47 Acuity: ANITA 3 kr3 Triage Assessment: 13:51 General: Appears in no apparent distress. comfortable, Behavior is agitated, kr3 inappropriate for age. Pain: Complains of pain in right hip. EENT: No signs and/or symptoms were reported regarding the EENT system. Neuro: Level of Consciousness is awake, alert. Cardiovascular: Patient's skin is warm and dry. Respiratory: Airway is patent Respiratory effort is even, unlabored, Respiratory pattern is regular, symmetrical. GI: No signs and/or symptoms were reported involving the gastrointestinal system. : No signs and/or symptoms were reported regarding the genitourinary system. Derm: Skin is fragile, is thin, has skin tears on right forearm. Musculoskeletal: Reports pain in right hip. Historical: - Allergies: 13:50 PENICILLINS; kr3 13:50 steroids; Allergy to Oral Steroids, IV is fine; kr3 - PMHx: 13:50 ADD/ADHD; Anxiety; Colitis; Depression; Osteoporosis; PTSD; ulcerative ulcer; kr3 - PSHx: 13:50 hip repair; 3 - Immunization history:: Adult Immunizations unknown. - Social history:: Smoking status: Patient denies any tobacco usage or history of. Screenin:23 [facility] ED Fall Risk Assessment (Adult) Score/Fall Risk Level 3 or more points = High as6 Risk. Abuse screen: Denies threats or abuse. Denies injuries from another. Nutritional screening: No deficits noted. Tuberculosis screening: No symptoms or risk factors identified. Assessment: 16:55 Reassessment: Called [facility] to give report and let them know there patient was ready [facility] to come back, spoke with Helena and she stated the nurse was busy, after asking for a nurse other than the one taking care of the patient or the charge nurse since the nurse taking care of the patient was unavailable and she did not like me questioning her for [facility] nurse and hung up on me. 17:40 Reassessment: Tried calling [facility] 40 minutes after initial call and no one answered [facility] the phone, Spoke with patients daughter as she was wondering how long it would be and I explained to her the situation, she called [facility] and they answered immediately and this was right after I called the 2nd and third time. She communicated that the nurse was trying to get in touch with her to give her report so her mother could return and the nurse asked for hospital number and then returned call immediately. 17:46 Reassessment: spoke with Norma at [facility],gave report and she stated she will call [address] [facility] for transport. 18:03 Reassessment: [facility] called back to inform us the ambulance will be in 1-2 hrs. kr3 Vital Signs: 13:47 BP 124 / 73; Pulse 74; Resp 17; Pulse Ox 100% on R/A; kr3 17:50 BP 122 / 71; Pulse 70; Resp 17; Pulse Ox 100% ; 3 ED Course: 13:47 Patient arrived in ED. kr3 13:47 Geovanni Gross PA is PHCP. cp 13:47 Tiana Pierce MD is Attending Physician. cp 13:50 Triage completed. kr3 13:53 Arm band placed on right wrist. Patient placed in an exam room, on a stretcher. kr3 13:54 Nanda Durbin, ROBERT is Primary Nurse. kr3 13:56 Maintain EMS IV. Dressing intact. Good blood return noted. Site clean \\T\\ dry. Gauge \\T\\ kr 3 site: 22 RFA. 14:12 CBC with Diff Sent. kr3 14:12 Basic Metabolic Panel Sent. kr3 14:12 PT-INR Sent. kr3 19:22 Bed in low position. Call light in reach. Side rails up X2. as6 19:23 No provider procedures requiring assistance completed. IV discontinued, intact, as6 bleeding controlled, No redness/swelling at site. Pressure dressing applied. Administered Medications: 14:06 Drug: fentaNYL (PF) 25 mcg Route: IVP; Site: right forearm; vg1 19:22 Follow up: Response: No adverse reaction as6 18:17 Drug: Ativan (LORazepam) 1 mg Route: PO; kr3 19:21 Follow up: Response: No adverse reaction as6 19:20 Drug: [place] (HYDROcodone-acetaminophen) 10 mg-325 mg 1 tabs Route: PO; as6 19:22 Follow up: Response: No adverse reaction as6 Medication: 19:23 VIS not applicable for this client. as6 Outcome: 15:20 Discharge ordered by . cp 19:23 Discharged to correction. as6 19:23 Condition: stable 19:23 Discharge instructions given to family, Instructed on discharge instructions, follow up and referral plans. Demonstrated understanding of instructions, follow-up care. 19:23 Patient left the ED. as6 Signatures: Geovanni Gross PA PA cp Garcia, Victoria, RN RN vg1 Anders Richardson RN RN as6 Nanda Durbin RN RN kr3 Corrections: (The following items were deleted from the chart) 20:17 16:55 Reassessment: spoke with [facility] to give report and was hung up on intentionally kr3 kr3 20:17 18:03 Reassessment: [facility] called [facility] to inform us the ambulance will be in 1-2 hrs. kr3 kr3 20:18 20:05 BP 122 / 71; Pulse 70bpm; Resp 17bpm; Pulse Ox 100%; kr3 kr3
--- NOTE | 2022-12-08 15:21 | EDPHYS ---
Physician Documentation [facility] Name: Chica Flores Age: 67 yrs Sex: Female : 1955 Arrival Date: 12/08/2022 Time: 13:47 Bed 7 Private MD: ED Physician Tiana Pierce HPI: 12/08 13:55 This 67 yrs old Female presents to ER via EMS with complaints of Hip Pain. cp 13:55 The patient or guardian reports pain. cp 13:55 recent hip replacement surgery. Patient is resident of [facility] and was cp found by staff on ground, attempting to crawl. Patient with history of dementia and reports she slid out of bed onto ground. Patient c/o right hip pain and back pain. Patient with recent right hip replacement surgery. Historical: - Allergies: 13:50 PENICILLINS; kr3 13:50 steroids; Allergy to Oral Steroids, IV is fine; kr3 - PMHx: 13:50 ADD/ADHD; Anxiety; Colitis; Depression; Osteoporosis; PTSD; ulcerative ulcer; kr3 - PSHx: 13:50 hip repair; kr3 - Immunization history:: Adult Immunizations unknown. - Social history:: Smoking status: Patient denies any tobacco usage or history of. ROS: 14:00 Constitutional: Negative for body aches, chills, fever, poor PO intake. cp 14:00 Cardiovascular: Negative for chest pain. cp 14:00 Respiratory: Negative for cough, shortness of breath, wheezing. 14:00 Abdomen/GI: Negative for abdominal pain, vomiting, diarrhea, constipation. 14:00 Back: Positive for pain at rest, pain with movement. 14:00 MS/extremity: Positive for right hip pain. 14:00 Neuro: Negative for altered mental status. cp 14:00 All other systems are negative. Exam: 14:10 Constitutional: The patient appears in no acute distress, alert, awake, cp non-diaphoretic, non-toxic, well developed, well nourished. 14:10 Head/face: Noted is ecchymosis, that is mild, of the forehead, of the appears like old cp bruising, swelling, that is mild, of the forehead. 14:10 Eyes: Periorbital structures: appear normal, Pupils: equal, round, and reactive to light and accomodation, Extraocular movements: intact throughout, Conjunctiva: normal, no exudate, no injection, Lids and lashes: appear normal, bilaterally. 14:10 ENT: External ear(s): are unremarkable, Nose: is normal, Mouth: Lips: moist, Oral mucosa: moist, Posterior pharynx: is normal, airway is patent, no erythema, no exudate. 14:10 Neck: C-spine: vertebral tenderness, is not appreciated, crepitus, is not appreciated. 14:10 Chest/axilla: Inspection: normal, Palpation: is normal, no crepitus, no tenderness. cp 14:10 Cardiovascular: Rate: normal, Rhythm: regular, Edema: is not appreciated, JVD: is not cp appreciated. 14:10 Respiratory: the patient does not display signs of respiratory distress, Respirations: normal, no use of accessory muscles, no retractions, labored breathing, is not present, Breath sounds: are clear throughout. 14:10 Abdomen/GI: Inspection: abdomen appears normal, Palpation: abdomen is soft and non-tender, in all quadrants. 14:10 Back: pain, that is moderate, of the thoracic area and lumbar area, ROM is painful, with all movement. 14:10 Musculoskeletal/extremity: Extremities: noted in the right hip: pain, surgical wound appears to be healing well with no erythema, no drainage from wound and no dehiscence. precious are in place. Vital Signs: 13:47 BP 124 / 73; Pulse 74; Resp 17; Pulse Ox 100% on R/A; kr3 17:50 BP 122 / 71; Pulse 70; Resp 17; Pulse Ox 100% ; kr3 MDM: 13:47 Patient medically screened. cp 14:00 Differential diagnosis: hip fracture, intertrochanteric fracture, bursitis, vertebral cp fracture, trauma. 15:20 Data reviewed: vital signs, nurses notes, lab test result(s), radiologic studies, CT cp scan. 15:20 Consideration of Admission/Observation Escalation of care including cp admission/observation considered. I considered the following discharge prescriptions or medication management in the emergency department Medications were administered in the Emergency Department. See MAR. Historians other than the Patient: EMS: provides HPI. Care significantly affected by the following chronic conditions: dementia. Counseling: I had a detailed discussion with the patient and/or guardian regarding: the historical points, exam findings, and any diagnostic results supporting the discharge/admit diagnosis, lab results, radiology results, to return to the emergency department if symptoms worsen or persist or if there are any questions or concerns that arise at home. Response to treatment: the patient's symptoms have markedly improved after treatment, and as a result, I will discharge patient. 12/08 13:49 Order name: Basic Metabolic Panel cp 12/08 13:49 Order name: CBC with Diff cp 12/08 13:49 Order name: Labs collected and sent; Complete Time: 14:12 cp 12/08 13:49 Order name: PT-INR cp 12/08 13:49 Order name: CT Traumagram (Head C Spine CAP wo con) cp 12/08 14:18 Order name: CBC with Automated Diff; Complete Time: 14:48 EDMS 12/08 14:48 Interpretation: Normal except: RBC 3.11; HGB 10.1; HCT 29.0; JOSIE% 89.1; LYM% 5.6; LYMA cp 0.3. 12/08 14:19 Order name: Protime (+INR); Complete Time: 14:48 EDMS 12/08 14:36 Order name: Basic Metabolic Panel; Complete Time: 14:48 EDMS 12/08 14:48 Interpretation: Normal except: NA 133; GLUC 148; CRE 0.47; CA 7.9. cp 12/08 14:42 Order name: CT; Complete Time: 14:48 EDMS 12/08 14:51 Interpretation: Report reviewed. cp Administered Medications: 14:06 Drug: fentaNYL (PF) 25 mcg Route: IVP; Site: right forearm; vg1 19:22 Follow up: Response: No adverse reaction as6 18:17 Drug: Ativan (LORazepam) 1 mg Route: PO; kr3 19:21 Follow up: Response: No adverse reaction as6 19:20 Drug: [place] (HYDROcodone-acetaminophen) 10 mg-325 mg 1 tabs Route: PO; as6 19:22 Follow up: Response: No adverse reaction as6 Disposition Summary: 12/08/22 15:20 Discharge Ordered Location: Home cp Problem: new cp Symptoms: have improved cp Condition: Stable cp Diagnosis - Pain in right hip cp - Dorsalgia, unspecified cp Followup: cp - With: Private Physician - When: 2 - 3 days - Reason: Recheck today's complaints Discharge Instructions: - Discharge Summary Sheet cp - Chronic Back Pain cp - Hip Pain cp Forms: - Medication Reconciliation Form cp - Thank You Letter cp - Antibiotic Education cp - Prescription Opioid Use cp Signatures: Dispatcher [employer] EDMS Geovanni Gross PA PA cp Garcia, Victoria, RN RN vg1 Anders Richardson RN RN as6 Nanda Durbin RN RN kr3 Corrections: (The following items were deleted from the chart) 15:19 13:55 Patient is resident of [facility] and was found by staff on ground, cp attempting to crawl. Patient with history of dementia and reports she slid out of bed onto ground. cp 12/09 17:46 03 13:55 Patient is resident of [facility] and was found by staff on cp ground, attempting to crawl. Patient with history of dementia and reports she slid out of bed onto ground. Patient c/o right hip pain and back pain. cp 12/09 18:31 12/08 14:10 Musculoskeletal/extremity: Extremities: noted in the right hip: pain, cp surgical wound appears to be healing well with no erythema, no drainage from wound and no dehiscence, cp
[2022-12-08] MEDS ORDERED: LORAZEPAM 1 MG TABLET ONE (18:16)
[2022-12-08] MEDS ORDERED: HYDROCODONE/APAP 10/325 TAB ONE (19:20)
[2022-12-08 19:48] VITALS: BP 124/73; O2SAT 100
== END 2022-12-08 19:23 | disposition home or self-care (01) ==
LOC: ER 13:41
DX: M25.551 Pain in right hip (principal); M54.9 Dorsalgia, unspecified; Z88.0 Allergy status to penicillin; Z88.8 Allergy status to other drugs, medicaments and biological substances
CPT/HCPCS: 85025; 80048; 36415; 85610; 70450; 71250; 72125; 96374; 99283; J3010

== ENCOUNTER 2022-12-13 21:24 | Emergency (ER) | payer BC, OTHER ==
--- OUTSIDE RECORDS SUMMARY | 2022-12-13 21:46 | XMS REPORT | Continuity of Care Document ---
:1955 Author Organization [facility] t Address [address] [place] [address] Care Team Providers Name Role Phone Marlen Wong MD, Reuben Primary Care Physician [phone] LICO GR Attending Clinician Unavailable DR RAE COELLO Attending Clinician Unavailable Lico Gr MD Attending Clinician [phone] Joe Najera Attending Clinician Aime JONES, [place] Attending Clinician Unavailable DESTINEE CASANOVA Attending Clinician [...] Attending Clinician Marybeth Turcios DO Attending Clinician Lico Holguin MD Attending Clinician Olga JONES, [place] Attending Clinician RODRICK TOMLINSON Attending Clinician Unavailable Cassandra STOUT, Norberto Attending Clinician Davi PRICE, Rodrick Attending Clinician Doctor Unassigned, Clarion Attending Clinician Unavailable FRANCES TERRY Attending Clinician Unavailable James Allen DO Attending Clinician Jhonatan Lombardo MD Attending Clinician Sydnie PRICE, Eri Brownlee Attending Clinician [phone] Frances Terry MD Attending Clinician MONIQUE OTOOLE Attending Clinician Unavailable [...] Clinician Unavailable Eri Otoole MD Admitting Clinician [phone] MONIQUE OTOOLE Admitting Clinician Unavailable Payers Payer Name Policy Type Policy Number Effective Date Expiration Date S [facility] [place] HMO [id number] 2021 EXCHANGE 00:00:00 0523 [id number] 1959 00:00:00 0700 [id number] 1959 00:00:00 Problems Condition Condition Condition Status [...] [facility]ical 00 Center 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 3 Jenna beth bee 00:00: Medical malnutriti malnutriti 00 Ce nter on on Confusion Confusion Disease Active 2021-10 Uni vers 0-28 ity of 00:00: [place] 00 Medical Branch E46 E46 Disease Active Univers Unspecifie Unspecifie 1-08 it y of d severe d severe 00:00: [place] protein-ca protein-ca 00 Nc dicct [facility] Branch malnutriti malnutriti on on AMS AMS Disease Active Univers (altered (altered 1-07 ity of mental mental 00:00: [place] status) status) 00 Medical Branch Colitis Colitis Disease Active [facility] 00 l ABDOMINAL Diagnosis Active 2012-02-14 [facility] PAIN ABDOMINAL 5-10 08:26:00 l PAIN 00:00: John Active 02/14/2012 [facility] No known No known Disease Unive rs active active ity of problems problems [facility] [place] Allergies, Adverse Reactions, Alerts Allergy Allergy Status Severity Reaction(s) Onset Inactive Treating Comm ents Source Name Type Date Date Clinician Penicill DA Active Unknown [facility] ins - Medical 00:00: Center 00 Predniso DA Active Unknown [facility] ne 12-04 Medical 00:00: Center 00 Beef DA Active Unknown [facility] Containi 12-04 Medical ng 00:00: Center Products 00 Shellfis DA Active Unknown [facility] h 12-04 Medical 00:00: Center 00 SHELLFIS DRUG Active [...] 00 Medical Branch Penicill Propensi Active Anaphylaxis 2017- U nivers ins ty to 2-13 ity of adverse 00:00: [place] reaction 00 Medical s Branch Penicill Propensi Active Anaphylaxis 2018- U nivers ins ty to 2-13 ity of adverse 00:00: [place] reaction 00 Medical s Branch predniSO predniSO Active [facility] NE NE l John penicill penicill Active [facility] ins ins l John predniSO predniSO Active [facility] l John penicill penicill Active [facility] ins ins l John Social History Social Habit Start Date Stop Date Quantity Comments Source History of Current smoker University of tobacco use [place] [facility] Exposure to 2022-08-08 2022-08-18 Not sure University of SARS-CoV-2 00:00:00 11:12:00 [facility] (event) Branch Alcohol intake 2022-08-05 2022-08-05 Ex-drinker [facility] 00:00:00 00:00:00 (finding) [place] [facility] Tobacco use and 2020-10-16 2020-10-16 Smokeless tobacco Un iversity of exposure 00:00:00 00:00:00 non-user [place] [facility] Education 2020-10-16 2020-10-16 13 University of 00:00:00 00:00:00 [place] [facility] History SDOH 2020-10-16 2020-10-16 3 University o f Financial 00:00:00 00:00:00 [place] [facility] History SDOH Food 2020-10-16 2020-10-16 2 Univers ity of Worry 00:00:00 00:00:00 [place] [facility] History SDOH Food 2020-10-16 2020-10-16 2 Univers ity of Scarcity 00:00:00 00:00:00 [place] [facility] History SDOH 2020-10-16 2020-10-16 2 University o f Transport Med 00:00:00 00:00:00 [place] Medic al Branch History SDOH 2020-10-16 2020-10-16 2 University o f Transport Non-Med 00:00:00 00:00:00 [facility] edical Branch Sex Assigned At [address] [address] [facility] k[facility] 00:00:00 00:00:00 [facility] Smoking Status Start Date Stop Date Source Tobacco smoking [facility] consumption unknown Ex-smoker 2020-10-16 00:00:00 2020-10-16 [place] o f [place] 00:00:00 Medical Branch Medications Ordered Filled Start Stop Current Ordering Indication Dosage Frequency Signature Comments Components Source Medication Medication Date Date Medication? Clinician (SIG) Name Name clonazePAM 2021-10 Yes .5mg Take 0.5 Uni vers 0.5 mg 1-18 mg by ity of tablet 21:12: mouth in [place] [address] the Medical morning Branch and 0.5 mg at noon and 0.5 mg in the evening. clonazePAM 2021-10 Yes .5mg Take 0.5 Uni vers 0.5 mg 1-18 mg by ity of tablet 21:12: mouth in [place] 42 the Medical morning Branch and 0.5 mg at noon and 0.5 mg in the evening. FLUoxetine 2021-10 40mg Take 40 mg Univers 40 mg 1-18 11-18 by mouth ity of capsule 14:52: 00:00 in the [place] 21 :00 morning Medical and 40 mg Branch in the evening. FLUoxetine 2021-10 Yes [id number] 40mg Take 1 Univers 40 mg 1-18 capsule by ity of capsule 00:00: mouth in [place] 00 the Medical morning. Branch traZODone 2021-10 Yes [id number] 100mg Take 1 Univers 100 mg 1-18 tablet by ity of tablet 00:00: mouth at [place] [address] bedtime. Medical Branch FLUoxetine 2021-10 Yes [id number] 40mg Take 1 Univers 40 mg 1-18 capsule by ity of capsule 00:00: mouth in [place] 00 the Medical morning. Branch traZODone 2021-10 Yes [id number] 100mg Take 1 Univers 100 mg 1-18 tablet by ity of tablet 00:00: mouth at [place] [address] bedtime. Medical Branch FLUoxetine 2021-10 Yes 40mg 40 mg, Unive rs (PROZAC) 1-16 Oral, ity of capsule 40 15:00: DAILY, [place] mg 00 First dose Medical on Sat08/22/22 at 0900, Until Discontinu ed, Routine traZODone 2021-10 Yes 100mg 100 mg, Univ ers (DESYREL) 1-16 Oral, QHS, ity of tablet 100 03:00: First dose [place] mg 00 on Sat08/21/22 Branch at 2100, Until Discontinu ed, Routine NaCl 0.9% 2021-10- No 1000mL at 100 Uni vers (NS) IV 10-21 11-17 mL/hr, IV ity of infusion 18:15: 14:00 Infusion, [place] as 1,000 mL 00 :00 ONCE, 1 Medical dose, On Branch Sat08/21/22 at 1215, Routine clonazePAM 2021-10 Yes .5mg 0.5 mg, [place] [facility] ers (KLONOPIN) 15 Oral, TID, ity of tablet 0.5 14:00: First dose [place] mg 00 (after Medical last Branch modificati on) on Sat08/21/22 at 0800, Until Discontinu ed, Routine FLUoxetine 2021-10- No 40mg 40 mg, [place] [facility] ers (PROZAC) 10-21 11-15 Oral, BID, ity of capsule 40 14:00: 17:11 First dose [place] mg 00 :43 (after Medical last Branch modificati on) on Sat08/21/22 at 0800, Until Discontinu ed, Routine D5W 0.9% 2021-10- No 1000mL at 100 [facility] ers NaCl (NS) -14 11-15 mL/hr, ity of IV infusion 15:30: 17:15 1,000 mL, [place] 1,000 mL 00 :57 IV Medical Infusion, Branch CONTINUOUS , Starting on Sat08/20/22 at 0930, Until Sat08/21/22 at 1115, Routine KCL 2021-10 Yes 40meq 40 mEq, Univers (KLOR-CON 10-19 Oral, ity of M20) tablet 15:00: DAILY, [place] 40 mEq 00 First dose Medical on [place] Branch 08/19/22 at 0900, Until Discontinu ed, Routine sennosides- 2021-10 Yes 1{tbl} 1 tablet, Univers docusate 10-19 Oral, ity of sodium 15:00: DAILY, [place] (SENOKOT-S) 00 First dose Me dical 8.6-50 mg on [place] Branch per tablet 08/19/22 1 tablet at 0900, [...] E)) 00 :00 dose, On Medical chewable [place] [facility] tablet 80 08/19/22 mg at 0230, Routine enoxaparin 2021-10 Yes 40mg 40 mg, Unive rs (LOVENOX) 10-18 Subcutaneo ity of injection 23:00: [place], DAILY, [place] 40 mg 00 First dose Medical on [facility] 08/18/22 at 1700, Until Discontinu ed, Routine FLUoxetine 2021-10 No 40mg 40 mg, Univ ers (PROZAC) 10-18 Oral, ity of capsule 40 22:30: 11:38 DAILY, [place] mg 00 :23 First dose Medical (after Branch last modificati on) on [facility] 08/18/22 at 1630, Until Discontinu ed, Routine acetaminoph 2021-10 Yes 650mg 650 mg, Un jennie en 10-18 Oral, ity of (TYLENOL) 20:29: Q6HPRN, [place] tablet 650 48 Starting Medic al mg on [facility] 08/18/22 at 1429, Until Discontinu ed, Routine, Pain (scale 1-3) clonazePAM 2021-10 No 1mg 1 mg, Unive rs (KLONOPIN) 10-1815 Oral, TID, it y of tablet 1 mg 20:00: 11:38 First dose [place] 00 :23 on [facility] 08/18/22 Branch at 1400, Until Discontinu ed, Routine traZODone 2021-10 No 50mg Take 50 mg U nivers 50 mg 12 11-12 by mouth ity of tablet 14:30: 00:00 at [place] 15 :00 bedtime. Medical Branch ergocalcife 2021-10- No [id number] 64313S Take 1 Univers rol, 10-11-26 capsule by ity of vitamin d2, 00:00: 05:59 mouth [place] 1,250 mcg 00 :00 weekly for Medi srinivasa (50,000 8 doses. Branch unit) capsule ergocalcife 2021-10- No [id number] Take 1 Univers rol, 10-11- capsule by ity of vitamin d2, 00:00: 00:00 mouth [place] 1,250 mcg 00 :00 weekly for Medi srinivasa (50,000 8 doses. Branch unit) capsule clonazePAM 2021-10 Yes .5mg Take 0.5 Uni vers 0.5 mg 0-30 mg by ity of tablet 16:58: mouth in [place] 59 the Medical morning Branch and 0.5 mg at noon and 0.5 mg in the evening. traZODone 2021-10 Yes 50mg Take 50 mg Un jennie 50 mg 0-30 by mouth ity of tablet 16:58: at [place] 59 bedtime. Medical Branch FLUoxetine 2021-10 Yes 40mg Take 40 mg U nivers 40 mg 0-30 by mouth ity of capsule 16:58: in the [place] 59 morning Medical and 40 mg Branch in the evening. PARoxetine 2021-10- No 30mg Take 30 mg Univers 30 mg 0-30 10-30 by mouth 2 ity of tablet 16:30: 00:00 (two) [place] 33 :00 times Medical daily. Branch meloxicam 2021-10- No Take by Univ ers (MOBIC 0-30 10-30 mouth. ity of ORAL) 16:30: 00:00 Patient [place] 33 :00 with pill Medical bottle Branch with handwritte n name Mobic 1 daily for pain. No dosage. [place] flat tablets. FLUoxetine 2021-10 Yes 40mg 40 mg, Unive rs (PROZAC) 0-30 Oral, BID, ity o f capsule 40 01:00: First dose [place] mg 00 (after Medical last Branch modificati on) on [facility] 08/04/22 at 2000, Until Discontinu ed, Routine ergocalcife 2021-10 Yes [id number] 50,000 Un jennie rol 0- Units, ity of (vitamin 17:11: Oral, [place] d2) 29 QWEEKLY, Medical (CALCIFEROL First dose Br anch ) capsule on [facility] 50,000 08/04/22 Units at 1215, Until Discontinu ed, Routine potassium 2021-10- No 10meq 10 mEq, IV Univers chloride in 08-04 Piggyback, i ty of water 10 15:00: 18:45 Q1H, 3 [place] mEq/100 mL 00 :04 doses, Medical RTU 10 mEq First dose Bra nch on [facility] 08/04/22 at 1000, Last dose on [facility] 08/04/22 at 1200, Administer over 60 Minutes, 100 mL KCL 2021-10 No 40meq 40 mEq, Univers (KLOR-CON 08-04 Oral, ity of M20) tablet 15:00: 15:00 ONCE, 1 [place] 40 mEq 00 :00 dose, On Medical [facility] Branch 08/04/22 at 1000, Routine pyridoxine 2021-10 Yes 100mg 100 mg, Uni vers (vitamin 0 Oral, ity of B6) 14:00: DAILY, [place] (VITAMIN 00 First dose Medic al B6) tablet on [facility] Branch 100 mg 08/04/22 at 0900, Until Discontinu ed, Routine thiamine 2021-10 Yes 100mg 100 mg, Unive rs (VITAMIN 0 Oral, ity of B1) tablet 14:00: DAILY, [place] 100 mg 00 First dose Medical on [facility] Branch 08/04/22 at 0900, Until Discontinu ed, Routine enoxaparin 2021-10 Yes 40mg 40 mg, Unive rs (LOVENOX) Subcutaneo ity of injection 14:00: us, DAILY, [place] 40 mg 00 First dose Medical on [facility] Branch 08/04/22 at 0900, Until Discontinu ed, Routine FLUoxetine 2021-10- No 20mg 20 mg, Univ ers (PROZAC) 08-04 Oral, ity of capsule 20 14:00: 20:36 DAILY, [place] mg 00 :26 First dose Medical on Sat Branch 08/04/22 at 0900, Until Discontinu ed, Routine lactobacill 2021-10 Yes .5mg 0.5 mg, Uni vers us 0-29 Oral, BID, ity of acidophilus 13:00: First dose [place] tablet 0.5 00 on [facility] Medical mg 08/04/22 Branch at 0800, Until [...] at 1645, Until Discontinu ed, Routine clonazePAM 2021-10- No .5mg 0.5 mg, Uni vers (KLONOPIN) 0-28 08-03 Oral, ity of tablet 0.5 20:45: 19:50 ONCE, 1 [place] mg 00 :00 dose, On Medical Fri Branch 08/03/22 at 1545, Routine NaCl 0.9% 2021-10- No 1000mL at 999 Uni vers (NS) bolus 0-28 10-28 mL/hr, ity of infusion 20:00: 22:18 1,000 mL, [place] 1,000 mL 00 :00 IV Medical Infusion, Branch ONCE, 1 dose, On Sat08/03/22 at 1500, WILFREDO acetaminoph 2021-10- No 650mg 650 mg, U nivers en 0-08-03 Oral, ity of (TYLENOL) 19:45: 19:44 ONCE, 1 [place] tablet 650 00 :00 dose, On Medic al mg Fri Branch 08/03/22 at 1445, WILFREDO levoFLOXaci 2021-10- No 500mg 500 mg, U nivers n 0-24 - Oral, ity of (LEVAQUIN) 06:30: 06:33 ONCE, 1 [place] tablet 500 00 :00 dose, On Medic al mg Mon Branch 07/30/22 at 0130, WILFREDO
Re ason [...] Until Discontinu ed, Routine levoFLOXaci 2021-10 Yes [id number] 500mg Take 1 Univers n 0-24 tablet by ity of (LEVAQUIN) 00:00: mouth [place] 500 mg 00 every 24 Medical tablet (- Branch ur) hours. levoFLOXaci 2021-10- No [id number] 500mg Take 1 Univers n 0-24 10-30 tablet by ity of (LEVAQUIN) 00:00: 00:00 mouth [place] 500 mg 00 :00 every 24 Medical tablet (- Branch ur) hours. PARoxetine 2021-0 Yes 30mg Take 30 mg U nivers 30 mg 4-28 by mouth 2 ity of tablet 16:24: (two) [place] 39 times Medical daily. Branch meloxicam 2021-0 Yes Take by [employer] (MOBIC 4-28 mouth. ity of ORAL) 16:24: Patient [place] [address] with pill Medical bottle Branch with handwritte n name Mobic 1 daily for pain. No dosage. [place] flat tablets. PARoxetine 2021-0 Yes 30mg Take 30 mg U nivers 30 mg 4-28 by mouth 2 ity of tablet 16:24: (two) [place] 39 times Medical daily. Branch meloxicam 2021-0 Yes Take by [employer] (MOBIC 4-28 mouth. ity of ORAL) 16:24: Patient [place] 39 with pill Medical bottle Branch with handwritte n name Mobic 1 daily for pain. No dosage. White flat tablets. PARoxetine 2021-0 Yes 30mg Take 30 mg U nivers 30 mg 4-28 by mouth 2 ity of tablet 16:24: (two) [place] 39 times Medical daily. Branch meloxicam 2021-0 Yes Take by [employer] (MOBIC 4-28 mouth. ity of ORAL) 16:24: Patient [place] 39 with pill Medical bottle Branch with handwritte n name Mobic 1 daily for pain. No dosage. [place] flat tablets. PARoxetine 2-0 Yes 30mg Take 30 mg U nivers 30 mg 4-28 by mouth 2 ity of tablet 16:24: (two) [place] 39 times Medical daily. Branch meloxicam 2021-0 Yes Take by [employer] (MOBIC 4-28 mouth. ity of ORAL) 16:24: Patient [place] 39 with pill Medical bottle Branch with handwritte n name Mobic 1 daily for pain. No dosage. [place] flat tablets. PARoxetine 2021-0 Yes 30mg Take 30 mg U nivers 30 mg 4-28 by mouth 2 ity of tablet 16:24: (two) [place] 39 times Medical daily. Branch meloxicam 2021-0 Yes Take by Unive rs (MOBIC 4-28 mouth. ity of ORAL) 16:24: Patient [place] 39 with pill Medical bottle Branch with handwritte n name Mobic 1 daily for pain. No dosage. White flat tablets. risperiDONE 2021-0 Yes [id number] .5mg Take 1 Univers 0.5 mg 4-28 tablet by ity of tablet 00:00: mouth 2 [place] [address] (two) Medical times Branch daily. risperiDONE 2021-0 Yes [id number] .5mg Take 1 Univers 0.5 mg 4-28 tablet by ity of tablet 00:00: mouth 2 [place] 00 (two) Medical times Branch daily. risperiDONE 2021-0 Yes [id number] .5mg Take 1 Univers 0.5 mg 4-28 tablet by ity of tablet 00:00: mouth 2 [place] 00 (two) Medical times Branch daily. risperiDONE 2-0 Yes [id number] .5mg Take 1 Univers 0.5 mg 4-28 tablet by ity of tablet 00:00: mouth 2 [place] 00 (two) Medical times Branch daily. risperiDONE 2-0 Yes [id number] .5mg Take 1 Univers 0.5 mg 4-28 tablet by ity of tablet 00:00: mouth 2 [place] (two) Medical times Branch daily. risperiDONE 2021-0 2022- No [id number] .5mg Take 1 Univers 0.5 mg 4-28 10-30 tablet by ity of tablet 00:00: 00:00 mouth 2 [place] 00 :00 (two) Medical times Branch daily. thiamine 2021-0 Yes 100mg 100 mg, Unive rs (VITAMIN 4-27 Oral, ity of B1) tablet 14:00: DAILY, [place] 100 mg 00 First dose Medical on Sat Branch 01/31/22 at 0900, Until Discontinu ed, Routine LORazepam 2021-0 Yes 3mg 3 mg, Univers (ATIVAN) 4-27 Oral, Q4H, ity o f tablet 3 mg 01:00: First dose [place] 00 (after Medical last Branch modificati on) on Sat01/30/22 at 1999, Until Discontinu ed, Routine thiamine 2021-0 Yes [id number] 100mg Take 1 U nivers 100 mg 4-27 tablet by ity of tablet 00:00: mouth [place] 00 daily. Medical Branch LORazepam 0 Yes [id number] 3mg Take 3 Univers mg tablet 4-27 tablets by ity of 00:00: mouth [place] 00 every 4 Medical (four) Branch hours. thiamine 0 Yes [id number] 100mg Take 1 U nivers 100 mg 4-27 tablet by ity of tablet 00:00: mouth [place] 00 daily. Medical Branch LORazepam Yes [id number] 3mg Take 3 Univers mg tablet 4-27 tablets by ity of 00:00: mouth [place] 00 every 4 Medical (four) Branch hours. thiamine 2021-0 Yes [id number] 100mg Take 1 U nivers 100 mg 4-27 tablet by ity of tablet 00:00: mouth [place] 00 daily. Medical Branch LORazepam Yes [id number] 3mg Take 3 Univers mg tablet 4-27 tablets by ity of 00:00: mouth [place] 00 every 4 Medical (four) Branch hours. thiamine 0 Yes [id number] 100mg Take 1 U nivers 100 mg 4-27 tablet by ity of tablet 00:00: mouth [place] 00 daily. Medical Branch LORazepam 0 Yes [id number] 3mg Take 3 Univers mg tablet 4-27 tablets by ity of 00:00: mouth [place] 00 every 4 Medical (four) Branch hours. thiamine 0 Yes [id number] 100mg Take 1 U nivers 100 mg 4-27 tablet by ity of tablet 00:00: mouth [place] 00 daily. Medical Branch LORazepam 0 Yes [id number] 3mg Take 3 Univers mg tablet 4-27 tablets by ity of 00:00: mouth [place] 00 every 4 Medical (four) Branch hours. thiamine 2021-0 Yes [id number] 100mg Take 1 U nivers 100 mg 4-27 tablet by ity of tablet 00:00: mouth [place] 00 daily. Medical Branch thiamine 2021-2021- No [id number] 100mg Take 1 Univers 100 mg 01-31 11-12 tablet by ity of tablet 00:00: 00:00 mouth [place] 00 :00 daily. Medical Branch LORazepam 1 2021- No [id number] 3mg Take 3 Univers mg tablet 01-31 10-30 tablets by ity of 00:00: 00:00 mouth [place] 00 :00 every 4 Medical (four) Branch hours. LORazepam 2021- No 2mg 2 mg, Slow U nivers (ATIVAN) 01-30- IV Push, ity of injection 2 23:30: 22:35 ONCE, 1 [place] mg 00 :00 dose, On Medical [facility] Branch 01/30/22 at 1830, WILFREDO LORazepam 2021- No 2mg 2 mg, Slow U nivers (ATIVAN) 01-30 IV Push, ity of injection 2 22:53: 23:21 ONCE, 1 [place] mg 00 :00 dose, On [facility] Branch 01/30/22 at 1800, STAT pyridoxine Yes 100mg 100 mg, Uni vers (vitamin - Oral, ity of B6) 16:00: DAILY, [place] (VITAMIN 00 First dose Medic al B6) tablet on [facility] 100 mg 01/30/22 at 1100, Until Discontinu ed, Routine chlordiazeP No Take by Un jennie OXIDE 5 mg 01-30- mouth 3 ity o f capsule 11:35: 00:00 (three) [place] 52 :00 times Medical daily. Branch gabapentin 2021- No 300mg Take 300 U nivers 300 mg 01-30- mg by ity of capsule 11:35: 00:00 mouth 3 [place] 52 :00 (three) Medical times Branch daily. gabapentin 2021- Yes [id number] 200mg Take 2 Univers 100 mg -26 capsules ity of capsule 00:00: by mouth 2 [place] 00 (two) Medical times Branch daily as needed (back pain). pyridoxine, 2021-0 Yes [id number] 100mg Take 1 Univers vitamin B6, - tablet by ity of 100 mg 00:00: mouth [place] tablet 00 daily. Medical Branch gabapentin Yes [id number] 200mg Take 2 Univers 100 mg 4-26 capsules ity of capsule 00:00: by mouth 2 [place] 00 (two) Medical times Branch daily as needed (back pain). pyridoxine, Yes [id number] 100mg Take 1 Univers vitamin B6, 4-26 tablet by ity of 100 mg 00:00: mouth [place] tablet 00 daily. Medical Branch gabapentin Yes [id number] 200mg Take 2 Univers 100 mg 4-26 capsules ity of capsule 00:00: by mouth 2 [place] 00 (two) Medical times Branch daily as needed (back pain). pyridoxine, Yes [id number] 100mg Take 1 Univers vitamin B6, 4-26 tablet by ity of 100 mg 00:00: mouth [place] tablet 00 daily. Medical Branch gabapentin Yes [id number] 200mg Take 2 Univers 100 mg 4-26 capsules ity of capsule 00:00: by mouth 2 [place] 00 (two) Medical times Branch daily as needed (back pain). pyridoxine, Yes [id number] 100mg Take 1 Univers vitamin B6, 4-26 tablet by ity of 100 mg 00:00: mouth [place] tablet 00 daily. Medical Branch gabapentin Yes [id number] 200mg Take 2 Univers 100 mg 4-26 capsules ity of capsule 00:00: by mouth 2 [place] 00 (two) Medical times Branch daily as needed (back pain). pyridoxine, Yes [id number] 100mg Take 1 Univers vitamin B6, 4-26 tablet by ity of 100 mg 00:00: mouth [place] tablet 00 daily. Medical Branch pyridoxine, Yes [id number] 100mg Take 1 Univers vitamin B6, 4-26 tablet by ity of 100 mg 00:00: mouth [place] tablet 00 daily. Medical Branch pyridoxine, 2021- No [id number] 100mg Take 1 Univers vitamin B6, 4-26 11-12 tablet by it y of 100 mg 00:00: 00:00 mouth [place] tablet 00 :00 daily. Medical Branch gabapentin 2021- No [id number] 200mg Take 2 Univers 100 mg 4-26 [...] days. Indication s: acute pain traMADoL 50 2021- No [id number] 50mg Take 1 Uni vers mg tablet 01-30- tablet by ity of 00:00: 04:59 mouth [place] 00 :00 every 6 Medical (six) Branch hours as needed for Pain (scale 7-10) for up to 7 days. Indication s: acute pain traMADoL 50 2021- No [id number] 50mg Take 1 Uni vers mg tablet 01-30- tablet by ity of 00:00: 04:59 mouth [place] 00 :00 every 6 Medical (six) Branch hours as needed for Pain (scale 7-10) for up to 7 days. Indication s: acute pain LORazepam 2 2021- No [id number] 2mg Take 1 Univers mg tablet 01-30 tablet by ity of 00:00: 00:00 mouth [place] 00 :00 every 4 Medical (four) Branch hours. traMADoL Yes 50mg 50 mg, Univers (ULTRAM) 4-25 Oral, ity of tablet 50 16:19: Q6HPRN, [place] mg 36 Starting Medical on Mon Branch 01/29/22 at 1119, Until Discontinu ed, Routine, Pain (scale 7-10) KCL 2021- No 40meq 40 mEq, Univers (KLOR-CON - 04-25 Oral, ity of M20) tablet 12:45: 12:56 ONCE, 1 [place] 40 mEq 00 :00 dose, On Medical Mon Branch 01/29/22 at 0745, Routine LORazepam 2021- No 2mg 2 mg, Univer s (ATIVAN) 01-27-26 Oral, Q4H, ity of tablet 2 mg 21:00: 22:15 First dose [place] 00 :23 (after Medical last Branch modificati on) on 01/27/22 at 1600, Until Discontinu ed, Routine LORazepam Yes 2mg 2 mg, Slow Un [...] :31 AWAKE, Medical First dose Branch on Sat01/26/22 at 1600, Until Discontinu ed, Routine LORazepam [...] [place] Branch 01/25/22 at 1830, STAT diphenhydrA 2021-2021- No 25mg 25 mg, Uni vers MINE 01-25 Intravenou ity of (BENADRYL) 22:30: 21:33 s, ONCE, 1 [place] injection 00 :00 dose, On Medica l 25 mg [facility] Branch 01/25/22 at 1730, Routine haloperidol 2021- No 2mg 2 mg, Univ ers lactate 01-25 Intramuscu ity o f (HALDOL) 22:15: 21:20 [place], ONCE, [place] injection 2 00 :00 1 dose, On Me dical mg [facility] Branch 01/25/22 at 1715, Routine haloperidol 2021- No 2mg 2 mg, Univ ers lactate 01-25 Intramuscu ity o f (HALDOL) 20:45: 19:51 [place], ONCE, [place] injection 2 00 :00 1 dose, On Me dical mg [facility] Branch 01/25/22 at 1545, Routine hydrOXYzine No 25mg 25 mg, Uni vers (ATARAX) 01-25 Oral, ity of tablet 25 19:00: 19:37 Q6HPRN, [place] mg 03 :00 Starting Medical on [facility] Branch 01/25/22 at 1400, Until [place] 01/25/22 at 1437, Routine, Anxiety KCL 2021- No 40meq 40 mEq, Univers (KLOR-CON 01-25 Oral, Q4H, ity of M20) tablet 09:00: 13:39 2 doses, [place] 40 mEq 00 :00 First dose Medical (after Branch last reorder) on [facility] 01/25/22 at 0400, Last dose on [facility] 01/25/22 at 0800, Routine haloperidol 2021- No 2mg 2 mg, Univ ers lactate 01-24 Intramuscu ity o f (HALDOL) 23:32: 01:40 [place], ONCE, [place] injection 2 00 :00 1 dose, On Me dical mg [facility] Branch 01/24/22 at 1845, STAT LORazepam 2021- No 1mg 1 mg, Univer s (ATIVAN) 01-24 Intramuscu ity of injection 1 23:00: 21:56 lar, ONCE, [place] mg 00 :00 1 dose, On Medical [facility] Branch 01/24/22 at 1800, Routine haloperidol 2021- No 2mg 2 mg, Univ ers lactate 01-24 Intramuscu ity o f (HALDOL) 22:54: 23:00 [place], ONCE, [place] injection 2 00 :00 1 dose, On Me dical mg Sat [place] 01/24/22 at 1800, STAT thiamine 2021-2021- No 100mg 100 mg, Univ ers (VITAMIN 01-24 Oral, ity of B1) tablet 14:45: 11:47 DAILY, [place] 100 mg 00 :57 First dose Medical on Sat01/24/22 at 0945, Until Discontinu ed, Routine KCL 2021- No 40meq 40 mEq, [facility] (KLOR-CON 01-24 Oral, ity of M20) tablet 13:15: 14:26 ONCE, 1 [place] 40 mEq 00 :00 dose, On Medical Sat [place] 01/24/22 at 0815, Routine sucralfate Yes 1g 1 g, Oral, U nivers (CARAFATE) 01-23 AC+HS, ity of tablet 1 g 16:30: First dose [place] 00 on [facility] 01/23/22 at Branch 1130, Until Discontinu ed, Routine lidocaine 2021- No 1{patch 1 Patch, Univers (LIDODERM) 01-23 } Topical, ity of 5 % (700 16:30: 04:00 Administer [place] mg/patch) 00 :00 over 12 Medical patch 1 Hours, Branch Patch ONCE, 1 dose, On Sat01/23/22 at 1130, Routine lactulose Yes 30mL 30 mL, Univer s (CEPHULAC) 01-23 Oral, BID, ity of solution 30 15:30: First dose [place] mL 00 (after Medical last Branch modificati on) on Sat01/23/22 at 1030, Until Discontinu ed, Routine naproxen Yes 250mg 250 mg, Unive rs (NAPROSYN) 01-23 Oral, ity of tablet 250 15:27: Q8HPRN, [place] mg 31 Starting Medical on Sat [place] 01/23/22 at 1027, Until Discontinu ed, Routine, Pain (scale 4-6) bisacodyL 2021- No 10mg 10 mg, Unive rs (DULCOLAX) 01-23 Rectal, ity o f suppository 15:17: 16:00 ONCE, 1 [place] 10 mg 00 :00 dose, On Medical [facility] 01/23/22 at 1030, Routine sennosides- 0 Yes 1{tbl} 1 tablet, Univers docusate 01-23 Oral, ity of sodium 14:00: DAILY, [place] (SENOKOT-S) 00 First dose Me dical 8.6-50 mg on [facility] per tablet 01/23/22 at 1 tablet 0900, Until Discontinu ed, Routine enoxaparin Yes 40mg 40 mg, Unive rs (LOVENOX) 01-23 Subcutaneo ity of injection 14:00: us, DAILY, [place] 40 mg 00 First dose Medical on [facility] 01/23/22 at 0900, Until Discontinu ed, Routine polyethylen Yes 17g 17 g, Unive rs e glycol 01-23 Oral, BID, ity o f 3350 powder 13:00: First dose [place] 17 g 00 on [facility] 01/23/22 at Branch 0800, Until Discontinu ed, Routine PARoxetine Yes 25mg 25 mg, Unive rs (PAXIL) 01-23 Oral, BID, ity of tablet 25 13:00: First dose [place] mg 00 on [facility] 01/23/22 at Branch 0800, Until Discontinu ed, Routine gabapentin Yes 200mg 200 mg, Uni vers (NEURONTIN) 01-23 Oral, ity of capsule 200 04:05: BIDPRN, [place] mg 27 Starting Medical on Sat [place] 01/22/22 at 2305, Until Discontinu ed, Routine, back pain chlordiazeP 2021- No 5mg 5 mg, Univ ers OXIDE 01-23 Oral, ity of (LIBRIUM) 03:28: 20:04 TIDPRN, [place] capsule 5 48 :02 Starting Medica l mg on Sat [place] 01/22/22 at 2228, Until Sat01/26/22 at 1504, Routine, agitation, anxiety thiamine 2021-0 2021- No 100mg 100 mg, Univ ers (VITAMIN - 04-20 Slow IV ity of B1) 23:15: 14:38 Push, [place] injection 00 :42 DAILY, 3 Medica l 100 mg doses, Branch First dose on Sat01/22/22 at 1815, Last dose on Sat01/24/22 at 0900, Routine acetaminoph 0 Yes 650mg 650 mg, Un jennie en 4-18 Oral, ity of (TYLENOL) 23:13: Q6HPRN, [place] tablet 650 52 Starting Medic al mg on Sat [place] 01/22/22 at 1813, Until Discontinu ed, Routine, Pain (scale 1-3) PARoxetine 2021-0 Yes 30mg Take 30 mg U nivers 30 mg 4-18 by mouth 2 ity of tablet 23:11: (two) [place] 00 times Medical daily. Branch chlordiazeP Yes Take by Uni vers OXIDE 5 mg 4-18 mouth 3 ity of capsule 23:11: (three) [place] 00 times Medical daily. Branch gabapentin 0 Yes 300mg Take 300 Un jennie 300 mg 4-18 mg by ity of capsule 23:11: mouth 3 [place] 00 (three) Medical times Branch daily. meloxicam Yes [facility] (MOBIC 4-18 mouth. ity of ORAL) 23:11: Patient [place] 00 with pill Medical bottle Branch with handwritte n name Mobic 1 daily for pain. No dosage. White flat tablets. haloperidol 0 2021- No 2mg 2 mg, Univ ers lactate 01-22-18 Intravenou ity o f (HALDOL) 19:45: 18:45 s, ONCE, 1 [place] injection 2 00 :00 dose, On Medi srinivasa mg Sat [place] 01/22/22 at 1445, STAT PARoxetine 0 Yes 30mg Take 30 mg U nivers 30 mg 4-16 by mouth 2 ity of tablet 12:11: (two) [place] 23 times Medical daily. Branch chlordiazeP 0 Yes Take by Uni vers OXIDE 5 mg 4-16 mouth 3 ity of capsule 12:11: (three) [place] 23 times Medical daily. Branch gabapentin 2021-0 Yes 300mg Take 300 Un jennie 300 mg 4-16 mg by ity of capsule 12:11: mouth 3 [place] 23 (three) Medical times Branch daily. fluoxetine 2021- No Take by Uni vers HCl (PROZAC 4-16 -16 mouth. ity o f ORAL) 10:43: 00:00 [...] by mouth ity of 10:43: 00:00 at [place] 53 :00 bedtime. Medical Branch traZODone 2021- No 50mg Take 50 mg U nivers 50 mg -16 -16 by mouth ity of tablet 10:43: 00:00 at [place] 53 :00 bedtime. Medical Branch levETIRAcet 2021- No 500mg Take 500 Univers am 500 mg 4-16 04-16 mg by ity of tablet 10:43: 00:00 mouth 2 [place] 53 :00 (two) Medical times Branch daily. meloxicam 2021- No Take by Univ ers (MOBIC 4-16 04-16 mouth. ity of ORAL) 10:43: 00:00 [place] 53 :00 Medical Branch cyclobenzap 2021- No 10mg Take 10 mg Univers rine HCl -16 -16 by mouth ity of (FLEXERIL 10:43: 00:00 daily. [place] ORAL) 53 :00 Medical Branch cyclobenzap Yes [id number] 5mg Take 1 Univers rine 5 mg 4-16 tablet by ity o f tablet 00:00: mouth 3 [place] 00 (three) Medical times Branch daily. cyclobenzap 2021-0 Yes [id number] 5mg Take 1 Univers rine 5 mg 4-16 tablet by ity o f tablet 00:00: mouth 3 [place] 00 (three) Medical times Branch daily. cyclobenzap 2021-0 Yes [id number] 5mg Take 1 Univers rine 5 mg 4-16 tablet by ity o f tablet 00:00: mouth 3 00 (three) Medical times Branch daily. cyclobenzap 2021-0 Yes [id number] 5mg Take 1 Univers rine 5 mg 4-16 tablet by ity o f tablet 00:00: mouth 3 [place] 00 (three) Medical times Branch daily. cyclobenzap 2021-0 Yes [id number] 5mg Take 1 Univers rine 5 mg 4-16 tablet by ity o f tablet 00:00: mouth 3 [place] 00 (three) Medical times Branch daily. cyclobenzap 2021-0 Yes [id number] 5mg Take 1 Univers rine 5 mg 4-16 tablet by ity o f tablet 00:00: mouth 3 00 (three) Medical times Branch daily. cyclobenzap 2021-0 Yes [id number] 5mg Take 1 Univers rine 5 mg 4-16 tablet by ity o f tablet 00:00: mouth 3 00 (three) Medical times Branch daily. cyclobenzap 2021- No [id number] 5mg Take 1 Univers rine 5 mg 4-16 10-30 tablet by ity of tablet 00:00: 00:00 mouth 3 [place] 00 :00 (three) Medical times Branch daily. levoFLOXaci 2021- No [id number] 500mg Take 1 Univers n 500 mg [...] 5 days. Indication s: acute pain HYDROcodone 20212021- No 4647 1{tbl} Take 1 U nivers -acetaminop 01-20 tablet by it y of hen 5-325 00:00: 04:59 mouth [place] mg tablet 00 :00 every 6 Medical (six) Branch hours as needed for Pain (scale 7-10) for up to 5 days. Indication s: acute pain levoFLOXaci 2021- No [id number] 500mg Take 1 Univers n 500 mg 01-20-20 tablet by ity o f tablet 00:00: 04:59 mouth [place] 00 :00 every Medical evening Branch for 3 days. levoFLOXaci 2021- No [id number] 500mg Take 1 Univers n 500 mg 01-20-20 tablet by ity o f tablet 00:00: 04:59 mouth [place] 00 :00 every Medical evening Branch for 3 days. HYDROcodone Yes 1{tbl} 1 tablet, Univers -acetaminop -14 Oral, ity of hen (NORCO 23:33: Q4HPRN, [place] 5) 5-325 mg 52 Starting Medi srinivasa tablet 1 on [facility] Branch tablet 01/18/22 at 1833, Until [...] 00 First dose Medical on Sat Branch 01/18/22 at 1100, Until Discontinu ed, Routine cyclobenzap Yes 5mg 5 mg, Unive rs rine 14 Oral, TID, ity of (FLEXERIL) 16:00: First dose [place] tablet 5 mg 00 (after Medica l last Branch modificati on) on Sat01/18/22 at 1100, Until Discontinu ed levoFLOXaci 2021- No 500mg 500 mg, IV [...] 30 mg 00 First dose Medical on Sat Branch 01/17/22 at 0900, Until Discontinu ed, Routine NaCl [...] dose [place] capsule 10 00 on Tue Medical mg 01/16/22 at Branch 2315, Until Discontinu ed, Routine cyclobenzap 2021- No 10mg 10 mg, Uni vers rine 01-17 Oral, ity of (FLEXERIL) 04:00: 15:49 [id number], [place] tablet 10 17 :24 Starting Medica l mg on [facility] 01/16/22 at 2300, Until [place] 01/18/22 at 1049, Muscle Spasms PARoxetine Yes 30mg 30 mg, Unive rs (PAXIL) -13 Oral, BID, ity of tablet 30 03:30: First dose [place] mg 00 on [facility] 01/16/22 at Branch 2230, Until Discontinu ed, Routine gabapentin Yes 300mg 300 mg, Uni vers (NEURONTIN) 01-17 Oral, TID, it y of capsule 300 03:30: First dose [place] mg 00 on [facility] 01/16/22 at Branch 2230, Until Discontinu ed, Routine acetaminoph Yes 650mg 650 mg, Un jennie en 01-17 Oral, ity of (TYLENOL) 00:33: Q6HPRN, [place] tablet 650 50 Starting Medic al mg on [facility] 01/16/22 at 1933, Until Discontinu ed, Routine, Pain (scale 1-3) levoFLOXaci 2021- No 500mg 500 mg, IV Univers n in D5W 01-17 Piggyback, ity of (LEVAQUIN) 00:15: 01:03 ONCE, 1 [place] 500 mg/100 00 :00 dose, On Medic al mL [facility] Piggyback 01/16/22 at 500 mg 1915, Administer over 60 Minutes, 100 mL
R james for Anti-Infec tive: Documented Infection< br>Documen carol Infection Site: Urine<br&g t;Duration of Therapy: Other (see Comments) gabapentin 2021-0 202- No 300mg Take 300 U nivers ER 300 mg 01-16 04-12 mg by ity of tablet, 21:37: 00:00 mouth 3 [place] extended 00 :00 (three) Medical release 24 times Branch hr daily as needed for Pain (scale 4-6). TALKING MEDICATION thiamine 2020- Yes [id number] 100mg Take 1 U nivers 100 mg 2-05 tablet by ity of tablet 00:00: mouth [place] 00 daily. [facility] Branch thiamine 2021-0 Yes [id number] 100mg Take 1 U nivers 100 mg 2-05 tablet by ity of tablet 00:00: mouth [place] 00 daily. Medical Branch thiamine 2020-0 Yes [id number] 100mg Take 1 U nivers 100 mg 2-05 tablet by ity of tablet 00:00: mouth [place] 00 daily. Medical Branch thiamine 2020-0 Yes [id number] 100mg Take 1 U nivers 100 mg 2-05 tablet by ity of tablet 00:00: mouth [place] 00 daily. Medical Branch thiamine 0 Yes [id number] 100mg Take 1 U nivers 100 mg 2-05 tablet by ity of tablet 00:00: mouth [place] 00 daily. Medical Branch thiamine 0 Yes [id number] 100mg Take 1 U nivers 100 mg 2-05 tablet by ity of tablet 00:00: mouth [place] 00 daily. Medical Branch thiamine Yes [id number] 100mg Take 1 U nivers 100 mg 2-05 tablet by ity of tablet 00:00: mouth [place] 00 daily. Medical Branch thiamine 2- No [id number] 100mg Take 1 Univers 100 mg 2-05 04-16 tablet by ity of tablet 00:00: 00:00 mouth [place] 00 :00 daily. Medical Branch fluoxetine Yes Take by [facility] ers HCl (PROZAC 2-04 mouth. ity of ORAL) 19:18: [place] 35 Medical Branch gabapentin Yes Take by [facility] ers ER 300 mg 2-04 mouth ity of tablet, 19:18: daily. [place] extended 35 Medical release 24 Branch hr proMETHazin Yes 12.5mg Take 12.5 Univers e 25 mg 2-04 mg by ity of tablet 19:18: mouth [place] 35 every 6 Medical (six) Branch hours as needed. prazosin 1 Yes 1mg Take 1 mg Un jennie mg capsule 2-04 by mouth ity o f 19:18: at [place] [address] bedtime. Medical Branch traZODone 0 Yes 50mg Take 50 mg Un [place] 50 mg 2-04 by mouth ity of tablet 19:18: at [place] [address] bedtime. Medical Branch levETIRAcet Yes 500mg Take 500 U nivers am 500 mg 2-04 mg by ity of tablet 19:18: mouth 2 [place] 35 (two) Medical times Branch daily. fluoxetine 0 Yes Take by Univ ers HCl (PROZAC 2-04 mouth. ity of ORAL) 19:18: [place] [address] Medical Branch gabapentin 2020-0 Yes Take by Univ ers ER 300 mg 2-04 mouth ity of tablet, 19:18: daily. [place] extended Medical release 24 Branch hr proMETHazin 2020-0 Yes 12.5mg Take 12.5 Univers e 25 mg 2-04 mg by ity of tablet 19:18: mouth [place] [address] every 6 Medical (six) Branch hours as needed. prazosin 1 0 Yes 1mg Take 1 mg Un [place]enn[place] mg capsule 2-04 by mouth ity o f 19:18: at [place] [address] bedtime. Medical Branch traZODone 2020-0 Yes 50mg Take 50 mg [place] 50 mg 2-04 by mouth ity of tablet 19:18: at [place] [address] bedtime. Medical Branch levETIRAcet Yes 500mg Take 500 U nivers am 500 mg 2-04 mg by ity of tablet 19:18: mouth 2 [place] [address] (two) Medical times Branch daily. fluoxetine Yes Take by [facility] ers HCl (PROZAC 2-04 mouth. ity of ORAL) 19:18: [place] [address] Medical Branch gabapentin 2020-0 Yes Take by Univ ers ER 300 mg 2-04 mouth ity of tablet, 19:18: daily. [place] [address] Medical release 24 Branch hr proMETHazin 2020-0 Yes 12.5mg Take 12.5 Univers e 25 mg 2-04 mg by ity of tablet 19:18: mouth [place] [address] every 6 Medical (six) Branch hours as needed. prazosin 1 0 Yes 1mg Take 1 mg Un [place] mg capsule 2-04 by mouth ity o f 19:18: at [place] [address] bedtime. Medical Branch traZODone 2020-0 Yes 50mg Take 50 mg [place] 50 mg 2-04 by mouth ity of tablet 19:18: at [place] [address] bedtime. Medical Branch levETIRAcet 2020-0 Yes 500mg Take 500 U nivers am 500 mg 2-04 mg by ity of tablet 19:18: mouth 2 [place] [address] (two) Medical times Branch daily. fluoxetine 2021-0 Yes Take by Univ ers HCl (PROZAC 2-04 mouth. ity of ORAL) 19:18: [place] 35 Medical Branch gabapentin Yes Take by Univ ers ER 300 mg 2-04 mouth ity of tablet, 19:18: daily. [place] extended 35 Medical release 24 Branch hr proMETHazin Yes 12.5mg Take 12.5 Univers e 25 mg 2-04 mg by ity of tablet 19:18: mouth [place] every 6 Medical (six) Branch hours as needed. prazosin 1 Yes 1mg Take 1 mg Un [place] mg capsule 2-04 by mouth ity o f 19:18: at [place] [address] bedtime. Medical Branch traZODone Yes 50mg Take 50 mg [place] 50 mg 2-04 by mouth ity of tablet 19:18: at [place] [address] bedtime. Medical Branch levETIRAcet Yes 500mg Take 500 U nivers am 500 mg 2-04 mg by ity of tablet 19:18: mouth 2 [place] [address] (two) Medical times Branch daily. fluoxetine Yes Take by [employer] ers HCl (PROZAC 2-04 mouth. ity of ORAL) 19:18: [place] [address] Medical Branch gabapentin Yes Take by Univ ers ER 300 mg 2-04 mouth ity of tablet, 19:18: daily. [place] extended Medical release 24 Branch hr proMETHazin Yes 12.5mg Take 12.5 Univers e 25 mg 2-04 mg by ity of tablet 19:18: mouth [place] [address] every 6 Medical (six) Branch hours as needed. prazosin 1 Yes 1mg Take 1 mg Un [place] mg capsule 2-04 by mouth ity o f 19:18: at [place] [address] bedtime. Medical Branch traZODone Yes 50mg Take 50 mg [place] 50 mg 2-04 by mouth ity of tablet 19:18: at [place] [address] bedtime. Medical Branch levETIRAcet Yes 500mg Take 500 U nivers am 500 mg 2-04 mg by ity of tablet 19:18: mouth 2 [place] 35 (two) Medical times Branch daily. fluoxetine Yes Take by Univ ers HCl (PROZAC 2-04 mouth. ity of ORAL) 19:18: [place] [address] Medical Branch gabapentin Yes Take by [facility] ers ER 300 mg 2-04 mouth ity of tablet, 19:18: daily. [place] [address] Medical release 24 Branch hr proMETHazin Yes 12.5mg Take 12.5 Univers e 25 mg 2-04 mg by ity of tablet 19:18: mouth [place] [address] every 6 Medical (six) Branch hours as needed. prazosin 1 Yes 1mg Take 1 mg Un [place] mg capsule 2-04 by mouth ity o f 19:18: at [place] [address] bedtime. Medical Branch traZODone Yes 50mg Take 50 mg Un [place] 50 mg 2-04 by mouth ity of tablet 19:18: at [place] [address] bedtime. Medical Branch levETIRAcet Yes 500mg Take 500 U nivers am 500 mg 2-04 mg by ity of tablet 19:18: mouth 2 [place] [address] (two) Medical times Branch daily. alprazolam 2020- No Take by Uni vers (XANAX 2-04 02-04 mouth. ity of ORAL) 16:15: 00:00 [place] 51 :00 Medical Branch lisinopriL 0 2020- No 40mg Take 40 mg Univers 40 mg 2-04 02-04 by mouth ity of tablet 16:15: 00:00 daily. [place] 51 :00 Medical Branch buPROPion 2020- No 75mg Take 75 mg U nivers 75 mg 2-04 02-04 by mouth ity of tablet 16:15: 00:00 daily. [place] 51 :00 Medical Branch fluoxetine Yes Take by [facility] ers HCl (PROZAC 2-04 mouth. ity of ORAL) 13:18: [place] [address] Medical Branch gabapentin Yes Take by [facility] ers ER 300 mg 2-04 mouth ity of tablet, 13:18: daily. [place] [address] Medical release 24 Branch hr proMETHazin Yes 12.5mg Take 12.5 Univers e 25 mg 2-04 mg by ity of tablet 13:18: mouth [place] [address] every 6 Medical (six) Branch hours as needed. prazosin 1 Yes 1mg Take 1 mg Un [place] mg capsule 2-04 by mouth ity o f 13:18: at [place] [address] bedtime. Medical Branch traZODone Yes 50mg Take 50 mg Un [place] 50 mg 2-04 by mouth ity of tablet 13:18: at [place] [address] bedtime. Medical Branch levETIRAcet Yes 500mg Take 500 U nivers am 500 mg 2-04 mg by ity of tablet 13:18: mouth [address] [place] [address] (two) Medical times Branch daily. LORazepam 2 Yes [id number] 10mg Take 5 Univers mg tablet 2-04 tablets by ity of 00:00: mouth 3 [place] [address] (three) Medical times Branch daily. LORazepam 2 2020- Yes [id number] 10mg Take 5 Univers mg tablet 2-04 tablets by ity of 00:00: mouth [address] [place] [address] (three) Medical times Branch daily. LORazepam 2 Yes [id number] 10mg Take 5 Univers mg tablet 2-04 tablets by ity of 00:00: mouth [address] [place] [address] (three) Medical times Branch daily. LORazepam 2 Yes [id number] 10mg Take 5 Univers mg tablet 2-04 tablets by ity of 00:00: mouth [address] [place] [address] (three) Medical times Branch daily. LORazepam 2 2020- Yes [id number] 10mg Take 5 Univers mg tablet 2-04 tablets by ity of 00:00: mouth [address] [place] [address] (three) Medical times Branch daily. LORazepam 2 Yes [id number] 10mg Take 5 Univers mg tablet 2-04 tablets by ity of 00:00: mouth [address] [place] [address] (three) Medical times Branch daily. LORazepam 2 Yes [id number] 10mg Take 5 Univers mg tablet 2-04 tablets by ity of 00:00: mouth 3 [place] (three) Medical times Branch daily. LORazepam 2 2021- No [id number] 10mg Take 5 Univers mg tablet 2-04 04-16 tablets by ity of 00:00: 00:00 mouth 3 [place] 00 :00 (three) Medical times Branch daily. lisinopriL 2020- No 2.5mg 2.5 mg, Un jennie (PRINIVIL,Z 2-03 02-04 Oral, ity of ESTRIL) 15:00: 14:41 DAILY, [place] tablet 2.5 00 :42 First dose Med ical mg (after Branch last modificati on) on Sat11/09/20 at 0900, Until Discontinu ed, Routine LORazepam Yes 10mg 10 mg, Univer s (ATIVAN) 11-05 Oral, TID, ity o f tablet 10 02:00: First dose [place] mg 00 (after Medical last Branch modificati on) on Sat11/04/20 at 2000, Until Discontinu ed, Routine LORazepam [...] 20 mg 42 Q4HPRN, Medical Starting Branch Sat11/02/20 at 0708, Until Discontinu ed, Routine, SBP>160 [...] last Branch modificati on) on Sat10/31/20 at 2000, Until Discontinu ed, Routine Polyethylen 2020-2020- No 17g 17 g, Univ ers e [...] 1 [place] mg 00 :00 dose, [facility] 10/27/20 at Branch 0145, Routine LORazepam 2020- No 5mg 5 mg, Univer s (ATIVAN) 10-27 Oral, TID, ity of tablet 5 mg 02:00: 21:25 First dose [place] 00 :10 (after Medical last Branch modificati on) on Sat10/26/20 at 1999, Until Discontinu ed, Routine gadoteridol 2020- No .2mL/kg 9.08 mL Univers (PROHANCE-1 10-26 (0.2 mL/kg i ty of 0 mL) 17:30: 17:08 ?45.4 kg), [place] injection 00 :00 Intravenou Medi srinivasa 9.08 mL s, ONCE, 1 Branch dose, [facility] 10/26/20 at 1130, Routine iohexol 2020- No 80mL 80 mL, Univers (OMNIPAQUE 10-26 Intravenou it y of 350 16:33: 16:33 s, ONCE, 1 [place] BULK-100 00 :00 dose, Wed Medica l mL) 10/26/20 at [place] injection 1045, 80 mL Routine LORazepam 2020- No 5mg 5 mg, Univer s (ATIVAN) 10-26 Oral, QID, ity of tablet 5 mg 02:00: 21:27 First dose [place] 00 :00 on [facility] 10/25/20 at Branch 2000, Until Discontinu ed, Routine diazePAM 2020- No 20mg 20 mg, Univer s (VALIUM) 10-21 Oral, TID, ity of tablet 20 21:15: 00:23 First dose [place] mg 00 :49 on Sat [facility] 10/21/20 at Branch 1515, Until Discontinu ed, Routine thiamine Yes 100mg 100 mg, Unive rs (VITAMIN 1-15 Oral, ity of B1) tablet 15:00: DAILY, [place] 100 mg 00 First dose Medical on Sat [place] 10/21/20 at 0900, Until Discontinu ed, Routine magnesium 2020- No 2g 2 g, IV Univ ers sulfate in 10-21 Piggyback, it y of water 2 14:15: 14:28 ONCE, 1 [place] gram/50 mL 00 :00 dose, Sat Medi srinivasa (4 %) 10/21/20 at Branch infusion 2 0815, g Routine labetaloL 2020- No 20mg 20 mg, Unive rs (NORMODYNE) 10-21 Slow IV ity of injection 13:17: 13:09 Push, [place] 20 mg 39 :07 Q4HPRN, Medical Starting Branch 10/21/20 at 0717, Until Sat11/02/20 at 0709, Routine, SBP&gt ;160 and or DBP>110 KCL 20 2020- No 40meq 40 mEq, Univer s mEq/15 mL 10-21 Oral, ity of solution 40 13:14: 14:28 ONCE, 1 [place] mEq 00 :00 dose, Sat Medical 10/21/20 at Branch 0715, Routine diazePAM 2020- No 15mg 15 mg, Univer s (VALIUM) [...] dose Branch (after last modificati on) on [place] 10/20/20 at 1500, Until Discontinu ed, Routine amLODIPine No 10mg 10 mg, Univ ers (NORVASC) 10-2003 Oral, ity of tablet 10 20:15: 13:46 DAILY, [place] mg 00 :08 First dose Medical on [place] Branch 10/20/20 at 1415, Until Discontinu ed, Routine NaCl 0.9% 2020- No 1000mL at 75 Univ ers (NS) IV 10-2001 mL/hr, IV ity of infusion 12:30: 16:33 Infusion, [place] as 1,000 mL 00 :57 CONTINUOUS Medic al , Starting Branch [place] 10/20/20 at 0630, Until 11/07/20 at 1033, Routine NaCl 0.9% 2020- No 1000mL at 125 Uni vers (NS) IV 10-20 mL/hr, IV ity of infusion 02:30: 12:27 [...] of water 2 11:30: 10:37 ONCE, 1 [place] gram/50 mL 00 :00 dose, Wed Medi srinivasa (4 %) 10/19/20 at Branch infusion 2 0530, g Routine LORazepam 2020- No 1mg 1 mg, Slow U nivers (ATIVAN) 10-19 IV Push, ity of injection 1 10:30: 09:37 ONCE, 1 [place] mg 00 :00 dose, Wed Medical 10/19/20 at Branch 0430, Routine gadoteridol 2020- No .2mL/kg 9.08 mL Univers (PROHANCE-1 1-12 01-12 (0.2 mL/kg i ty of 0 mL) 21:30: 21:05 ?45.4 kg), [place] injection 00 :00 Intravenou Medi srinivasa 9.08 mL s, ONCE, 1 Branch dose, 10/18/20 at 1530, Routine KCL No 40meq 40 mEq, IV Unive rs (POTASSIUM 10-18 Piggyback, it y of CHLORIDE) 18:00: 22:38 ONCE, 1 [place] 40 mEq in 00 :00 dose, Tue Medic al NaCl 0.9% 10/18/20 at [facility] (NS) 1200, 250 piggyback mL NaCl 0.9% 2020- No 1000mL at 50 Univ ers (NS) IV 10-1814 mL/hr, IV ity of infusion 17:15: 02:23 Infusion, [place] as 1,000 mL 00 :42 CONTINUOUS Medic al , Starting Branch 10/18/20 at 1115, Until 10/19/20 at 2023, Routine NaCl 0.9% Yes 10mL 10 mL, Univer s (NS) 112 Slow IV ity of injection 15:58: Push, PRN, [place] 10 mL 41 Starting Medical [facility] Branch 10/18/20 at 0958, Until Discontinu ed, Routine, line maintenanc e lidocaine Yes 5mL 5 mL, Univers 1% (PF) 10-18 Subcutaneo ity of (XYLOCAINE) 15:58: us, PRN, [place] injection 5 41 Starting Medi srinivasa mL [facility] Branch 10/18/20 at 0958, Until Discontinu ed, Routine, Local anesthesia KCL No 40meq 40 mEq, IV Unive rs (POTASSIUM 10-18 Piggyback, it y of CHLORIDE) 12:35: 14:17 ONCE, 1 [place] 40 mEq in 00 :00 dose, Tue Medic al NaCl 0.9% 10/18/20 at [facility] (NS) 0645, 250 piggyback mL diazePAM 2020-2020- No 10mg 10 mg, Univer s (VALIUM) 10-1814 Intravenou ity of injection 02:00: 20:07 s, BID, [place] 10 mg 00 :20 First dose Medical (after Branch last modificati on) on Sat10/17/20 at 2000, Until Discontinu ed, Routine immune [...] encephalit is
Facu lty Requesting Approval: JOEY LUIS haloperidol 2020- No 2mg 2 mg, Univ [...] dose, Mon Medica l mL) 10/17/20 at [place] injection 1000, 100 mL Routine NaCl 0.9% 2020- No 1000mL at 125 Uni vers (NS) IV 10-17 mL/hr, IV ity of infusion 15:45: 17:06 Infusion, [place] 1,000 mL 00 :41 CONTINUOUS Medic al , Starting Branch Sat10/17/20 at 0945, Until Sat10/18/20 at 1106, Routine KCL 20 2020- No 20meq 20 mEq, Univer s mEq/15 mL 10-17 Enteral, ity o f solution 20 14:15: 15:09 ONCE, 1 [place] mEq 00 :00 dose, Mon Medical 10/17/20 at Branch 0815, Routine NaCl 0.9% No 1000mL at 75 [...] 1 [place] mg 00 :00 dose, [facility] Medical 10/17/20 at Branch 0215, Routine haloperidol No 1mg 1 mg, Slow Univers lactate 10-17 IV Push, ity of (HALDOL) 03:45: 06:27 ONCE, 1 [place] injection 1 00 :00 dose, [place] Med ical mg 10/16/20 at Branch 2145, Routine diazePAM No 5mg 5 mg, Univers (VALIUM) 10-17 Intravenou ity of injection 5 02:00: 21:56 s, BID, [place] mg 00 :08 First dose Medical (after Branch last modificati on) on Sat10/16/20 at 2000, Until Discontinu ed, Routine diazePAM 2020- No 10mg 10 mg, Univer [...] on Sat10/19/20 at 0900, 50 mL thiamine 2020- No 250mg IV Univers (VITAMIN 10-16 Piggyback, ity of B1) 250 mg 02:00: 04:23 [place] 1 [place] 00 :00 dose, Medical 0.9% (NS) First dose Bran ch piggyback on [facility] 10/15/20 at 2000, 50 mL KCL 2020- No 40meq 40 mEq, IV Unive rs (POTASSIUM 10-16 Piggyback, it y of CHLORIDE) 00:30: 00:16 ONCE, [place] 40 mEq in 00 :00 dose, Sat Medic al NaCl 0.9% 10/15/20 at [facility] h (NS) 1830, 250 piggyback mL lisinopriL 2020- No 40mg 40 mg, Univ ers (PRINIVIL,Z 10-15 Oral, ity of ESTRIL) 15:00: 13:46 DAILY, [place] tablet 40 00 :08 First dose Medi srinivasa mg on [facility] 10/15/20 at 0900, Until Discontinu ed, Routine KCL 2020- No 40meq 40 mEq, IV Unive rs (POTASSIUM 10-15 Piggyback, it y of CHLORIDE) 13:45: 14:17 ONCE, [place] 40 mEq in 00 :00 dose, Sat Medic al NaCl 0.9% 10/15/20 at [facility] h (NS) 0745, 250 piggyback mL magnesium 2020- No 4g 4 g, IV Univ ers sulfate in 10-15 Piggyback, it y of water 4 13:45: 14:14 ONCE, 1 [place] gram/50 mL 00 :00 dose, Sat Medi srinivasa (8 %) IV 10/15/20 at [place] Piggyback 4 0745, g Routine KCL 2020- No 40meq 40 mEq, IV Unive rs (POTASSIUM 10-14 Piggyback, it y of CHLORIDE) 23:45: 03:11 ONCE, [place] 40 mEq in 00 :00 dose, Fri Medic al NaCl 0.9% 10/14/20 at [facility] h (NS) 1745, 250 piggyback mL diazePAM 2020- No 5mg 5 mg, Univers (VALIUM) 10-14 Intravenou ity of injection 5 20:00: 14:29 s, TID, [place] mg 00 :10 First dose Medical on Sat Branch 10/14/20 at 1400, Until Discontinu ed, Routine potassium, Yes 1{packe 1 Packet, Univers sodium 1-08 t} Oral, QID, ity of phosphates 14:00: First dose [place] (PHOS-NAK) 00 on Sat Medical [id number] 10/14/20 at [facility] mg packet 1 799, Packet Until Discontinu ed, Routine KCL 2020- [...] Bran ch piggyback (after last reorder) on [place] 10/13/20 at 2000, Last dose on Sat10/15/20 at 1400, 50 mL NaCl 0.9% 2020- No 1000mL at 125 Uni vers (NS) IV 10-14-11 mL/hr, IV ity of infusion 01:00: 13:16 Infusion, Mike as 1,000 mL 00 :27 CONTINUOUS Medic al , Starting Branch [place] 10/13/20 at 1900, Until 10/17/20 at 0716, Routine KCL 2020- No 40meq 40 mEq, IV Unive rs (POTASSIUM 10-14 Piggyback, it y of CHLORIDE) 01:00: 12:59 Q4H ABX, 3 [place] 40 mEq in 00 :00 doses, Medical NaCl 0.9% First dose Bran ch (NS) (after piggyback last modificati on) on [place] 10/13/20 at 1900, Last dose on Sat10/14/20 at 0300, 250 mL LORazepam Yes 2mg 2 mg, Slow Un jennie (ATIVAN) 10-13 IV Push, ity of injection 2 19:15: PRN - SEE [place] mg 00 INSTRUCT Medical NS, 1 Branch dose, Starting [place] 10/13/20 at 1315, Until Discontinu ed, Routine, Lorazepam Challenge for Catat[place] LORazepam 2020- No 2mg 2 mg, Slow U nivers (ATIVAN) 10-13 IV Push, ity of injection 2 19:15: 19:12 ONCE, 1 [place] mg 00 :00 dose, [facility] Medical 10/13/20 at Branch 1315, Routine [...] 1 [place] gram/50 mL 00 :00 dose, [facility] Medi srinivasa (8 %) IV 10/13/20 at [place] Piggyback 4 0900, g Routine thiamine 2020- [...] Medic al NaCl 0.9% 10/13/20 at [facility] h (NS) 0715, 250 piggyback mL acetaminoph Yes 650mg 650 mg, Un jennie en 10-13 Oral, ity of (TYLENOL) 08:13: Q6HPRN, [place] tablet 650 16 Starting Medic al mg [place] 10/13/20 Branch at 0213, Until Discontinu ed, Routine, Pain (scale 4-6) docusate Yes 100mg 100 mg, Unive rs (COLACE) 10-13 Oral, ity of capsule 100 08:13: QDAILYPRN, [place] mg 16 Starting Medical [place] 10/13/20 Branch at 0213, Until Discontinu ed, Routine, Constipati on fosphenytoi 2020- No 900mg{p 900 mg PE, Univers n (CEREBYX) 10-13 henytoi IV ity of 900 mg PE 03:15: 03:07 n'equiv Piggyback, [place] in NaCl 00 :00 alent} ONCE, 1 Medical 0.9% (NS) dose, Wed [facility] h piggyback 10/12/20 at 2115, 100 mL diazePAM 2020- No 2mg 2 mg, Slow Un jennie (VALIUM) 10-12 IV Push, ity of injection 2 16:45: 15:34 ONCE, 1 [place] mg 00 :00 dose, [facility] 10/12/20 at Branch 1045, STAT diazePAM 2020- No 2mg 2 mg, Slow Un jennie (VALIUM) 10-12 IV Push, ity of injection 2 10:38: 10:40 ONCE, 1 [place] mg 00 :00 dose, [facility] Medical 10/12/20 at Branch 0445, STAT D5W 0.45% 2020- No 1000mL at 125 Uni vers NaCl 10-12 mL/hr, ity of (1/2NS) IV 07:30: 23:47 1,000 mL, [place] infusion 00 :30 IV Medical 1,000 mL Infusion, Branch CONTINUOUS , Starting 10/12/20 at 0130, Until [place] 10/13/20 at 1747, WILFREDO thiamine 2020- No 100mg 100 mg, Univ ers (VITAMIN 10-12 Intravenou ity of B1) 05:45: 05:06 s, ONCE, 1 [place] injection 00 :00 dose, Tue Medic al 100 mg 10/11/20 at Branch 2345, WILFREDO diazePAM 2020- No 2mg 2 mg, Slow Un jennie (VALIUM) 10-12 IV Push, ity of injection 2 05:45: 04:59 ONCE, 1 [place] mg 00 :00 dose, Tue Medical 10/11/20 at Branch 2345, STAT NaCl 0.9% No 1000mL at 999 Uni vers (NS) bolus 10-12 mL/hr, ity of infusion 03:45: 06:10 1,000 mL, Mike as 1,000 mL 00 :00 IV Medical Infusion, Branch ONCE, 1 dose, 10/11/20 at 2145, STAT ALPRAZolam Yes 2mg Q24H Take 2 mg Me thodi (XANAX) 2 9-[address] MG tablet 15:47: daily as [facility] 49 needed for l anxiety. acetaminoph No 1{tbl} 1 tablet, Univers en-codeine 04-04 Oral, ity of (TYLENOL 16:00: 14:55 ONCE, 1 [place] #3) 300-30 00 :00 dose, Mon Medi srinivasa mg tablet 1 04/04/20 at Br anch tablet 1100, WILFREDO acetaminoph Yes [id number] 1{tbl} Take 1 Univers en-codeine 04-04 tablet by ity of (TYLENOL-CO 00:00: mouth [place] DEINE #3) 00 every 4 Medical 300-30 mg (four) Branch tablet hours as needed for Pain (scale 1-3). acetaminoph No [id number] 1{tbl} Take 1 Univers en-codeine 04-04 02-04 tablet by ity of (TYLENOL-CO 00:00: [...] IV Medical Infusion, Branch ONCE, 1 dose, [facility] 06/08/19 at 1030, WILFREDO fluoxetine Yes Take by [facility] ers HCl (PROZAC -02 mouth. ity of ORAL) 14:52: [address] alprazolam Yes Take by [facility] ers (XANAX 9-02 mouth. ity of ORAL) 14:52: [address] fluoxetine Yes Take by [facility] ers HCl (PROZAC 9-02 mouth. ity of ORAL) 14:52: [address] alprazolam Yes Take by [facility] ers (XANAX 9-02 mouth. ity of ORAL) 14:52: [address] fluoxetine Yes Take by [facility] ers HCl (PROZAC 9-02 mouth. ity of ORAL) 14:52: [address] alprazolam Yes Take by Univ ers (XANAX 9-02 mouth. ity of ORAL) 14:52: [address] fluoxetine Yes Take by [facility] ers HCl (PROZAC 9-02 mouth. ity of ORAL) 14:52: [address] alprazolam Yes Take by [facility] ers (XANAX 9-02 mouth. ity of ORAL) 14:52: [address] Bentyl 10 Yes Horacio 10 mg, 5 Me moria mg/5 mL 5-10 Colin Boss ml, PO, l oral syrup 17:45: QID, 280 Her alcantar 43 ml, Substituti on Allowed, SYRP Bentyl 10 Yes Horacio 10 mg, 5 Me moria mg/5 mL 5-10 Colin Boss ml, PO, l oral syrup 17:45: QID, 280 Her alcantar 43 ml, Substituti on Allowed, SYRP Bentyl Yes Horacio 10 mg, 5 Me moria mg/5 mL 5-10 Colin Boss ml, PO, l oral syrup 17:45: QID, 280 Her alcantar 43 ml, Substituti on Allowed, SYRP Bentyl Yes Horacio 10 mg, 5 Me moria mg/5 mL 5-10 Colin Boss ml, PO, l oral syrup 17:45: QID, 280 Her alcantar 43 ml, Substituti on Allowed, SYRP Bentyl Yes Horacio 10 mg, 5 Me moria mg/5 mL 5-10 Colin Boss ml, PO, l oral syrup 17:45: QID, 280 Her alcantar 43 ml, Substituti on Allowed, SYRP Bentyl Yes Horacio 10 mg, 5 Me moria mg/5 mL 5-10 Colin Boss ml, PO, l oral syrup 17:45: QID, 280 Her alcantar 43 ml, Substituti on Allowed, SYRP Dilaudid No Horacio 1 mg, 0.5 Me moria 5-10 Colin Boss mL, Route: l 16:37: IV, Drug [place] 00 form: INJ, ONCE, Start date: 02/14/12 11:37:00, Stop date: 02/14/12 11:37:00 Dilaudid No Horacio 1 mg, 0.5 Me moria 5-10 Colin Boss mL, Route: l 16:37: IV, Drug [place] 00 form: INJ, ONCE, Start date: 02/14/12 11:37:00, Stop date: 02/14/12 11:37:00 Dilaudid 2011-0 No Horacio 1 mg, 0.5 Me moria 5-10 Colin Boss mL, Route: l 16:37: IV, Drug [place] 00 form: INJ, ONCE, Start date: 02/14/12 11:37:00, Stop date: 02/14/12 11:37:00 Dilaudid 2011-0 No Horacio 1 mg, 0.5 Me moria 5-10 Colin Boss mL, Route: l 16:37: IV, Drug [place] 00 form: INJ, ONCE, Start date: 02/14/12 [...] 02/14/12 11:37:00, Stop date: 02/14/12 11:37:00 morphine 2012-0 No Horacio 4 mg, 1 [...] 02/14/12 10:33:00, Stop date: 02/14/12 10:33:00 morphine 2011-0 No Horacio 4 mg, 1 Brian kyle Sulfate 5-10 Colin Boss mL, Route: l 15:33: IVP, Drug [place] 00 form: INJ, ONCE, Priority: STAT, Start date: 02/14/12 10:33:00, Stop date: 02/14/12 10:33:00 morphine 2011-0 No Horacio 4 mg, 1 Brian kyle Sulfate 5-10 Colin Boss mL, Route: l 15:33: IVP, Drug [place] 00 form: INJ, ONCE, Priority: STAT, Start date: 02/14/12 10:33:00, Stop date: 02/14/12 10:33:00 morphine 2011-0 No Horacio 4 mg, 1 Brian kyle Sulfate 5-10 Colin Boss mL, Route: l 15:33: IVP, Drug [place] 00 form: INJ, ONCE, Priority: STAT, Start date: 02/14/12 10:33:00, Stop date: 02/14/12 10:33:00 morphine 2012-0 No Horacio 4 mg, 1 Brian kyle Sulfate 5-10 Colin Boss mL, Route: l 15:33: IVP, Drug [place] 00 form: INJ, ONCE, Priority: STAT, Start date: 02/14/12 10:33:00, Stop date: 02/14/12 10:33:00 Zofran 2011-0 No Horacio 4 mg, [...] Colin Boss Route: l 15:25: IVP, Drug [place] 00 form: INJ, ONCE, Priority: STAT, Start date: 02/14/12 10:25:00, Stop date: 02/14/12 10:25:00 Zofran 2011-0 No Horacio 4 mg, Memoria 5-10 Colin Boss Route: l 15:25: IVP, Drug [place] 00 form: INJ, ONCE, Priority: STAT, Start date: 02/14/12 10:25:00, Stop date: 02/14/12 10:25:00 Zofran 2012-0 No Horacio 4 mg, Memoria 5-10 Colin Boss Route: l 15:25: IVP, Drug [place] 00 form: INJ, ONCE, Priority: STAT, Start date: 02/14/12 10:25:00, Stop date: 02/14/12 10:25:00 Zofran 2012-0 No Horacio 4 mg, Memoria 5-10 Colin Boss Route: l 15:25: IVP, Drug [place] 00 form: INJ, ONCE, Priority: STAT, Start date: 02/14/12 10:25:00, Stop date: 02/14/12 10:25:00 morphine 2012-0 No Horacio 4 mg, Memori a Sulfate 5-10 Colin Boss Route: l 14:16: IVP, ONCE, [place] 00 Priority: STAT, Start date: 02/14/12 9:16:00, Stop date: 02/14/12 9:16:00 morphine 2012-0 No Horacio 4 mg, Memori a Sulfate 5-10 Colin Boss Route: l 14:16: IVP, ONCE, [place] 00 Priority: STAT, Start date: 02/14/12 9:16:00, [...] Colin Boss Route: l 14:16: IVP, ONCE, [place] 00 Priority: STAT, Start date: 02/14/12 9:16:00, Stop date: 02/14/12 9:16:00 ketorolac 2011-0 No Horacio 30 mg, 1 Me moria 5-10 Colin Boss mL, Route: l 13:54: IVP, Drug [place] 00 form: INJ, ONCE, Priority: STAT, Start date: 02/14/12 8:54:00, Stop date: 02/14/12 8:54:00 Zofran 2012-0 No Horacio 4 mg, 2 Memori a 5-10 Colin Boss mL, Route: l 13:54: IVP, Drug [place] 00 form: INJ, ONCE, Priority: STAT, Start [...] Boss mL, Route: l 13:54: IVP, Drug [place] 00 form: INJ, ONCE, Priority: STAT, Start [...] Boss mL, Route: l 13:54: IVP, Drug [place] 00 form: INJ, ONCE, Priority: STAT, Start [...] Boss mL, Route: l 13:54: IVP, Drug [place] 00 form: INJ, ONCE, Priority: STAT, Start date: 02/14/12 8:54:00, Stop date: 02/14/12 8:54:00 Zofran 2012-0 No Horacio 4 mg, 2 Memori a 5-10 Colin Boss mL, Route: l 13:54: IVP, Drug [place] 00 form: INJ, ONCE, Priority: STAT, Start [...] 5-10 on Allowed l 12:42: John Nicholson 2011-0 Yes Substituti Memori a 10/325 oral 5-10 on l tablet 12:42: Allowed, John Kwan Maintenanc bisi [place] 2011-0 Yes Substituti Memori a 10/325 oral 5-10 on l tablet 12:42: Allowed, John Kwan Maintenanc bisi [place] 2011-0 Yes Substituti Memori a 10/325 oral 5-10 on l tablet 12:42: Allowed, John Kwan Maintenanc bisi [place] 2011-0 Yes Substituti Memori a 10/325 oral 5-10 on l tablet 12:42: Allowed, John Kwan Maintenanc bisi [place] 0 Yes Substituti Memori a 10/325 oral 5-10 on l tablet 12:42: Allowed, John Kwna Maintenanc bisi [place] 0 Yes Substituti Memori a 10/325 oral 5-10 on l tablet 12:42: Allowed, John Kwan Maintenanc bisi [place] 0 Yes Substituti Memori a 10/325 oral 5-10 on l tablet 12:42: Allowed, John Kwan Maintenanc bisi [place] 0 Yes Substituti Memori a 10/325 oral 5-10 on l tablet 12:42: Allowed, John Nolascotenanc bisi Klonopin 2011-0 Yes Substituti Mem oria 5-10 on Allowed l 12:41: John Lakeonopin 2011-0 Yes Substituti Mem oria 5-10 on Allowed l 12:41: John Lakeonopin 2012-0 Yes Substituti Mem oria 5-10 on Allowed l 12:41: John Lakeonopin 2012-0 Yes Substituti Mem oria 5-10 on Allowed l 12:41: John Ware Klonopin 2011-0 Yes Substituti Mem oria 5-10 on Allowed l 12:41: John Ware Klonopin 2012-0 Yes Substituti Mem oria 5-10 on Allowed l 12:41: John Lakeonopin 2012-0 Yes Substituti Mem oria 5-10 on Allowed l 12:41: John Lakeonopin 2012-0 Yes Substituti Mem oria 5-10 on Allowed l 12:41: John Ware Prozac 0 Yes Substituti Memor ia 5-10 on Allowed l 12:41: John Jamil Prozac 2012-0 Yes Substituti Memor ia 5-10 on Allowed [...] No known No Univers medications ity of [facility] [place] Immunizations Ordered Filled Immunization Date Status Comments Sour e Immunization Name Name Influenza Virus 2020-05-18 Completed Universit y of Vaccine [place] .5 mL 00:00:00 [place] [facility] IM 6+ MO Branch Influenza Virus 2020-05-18 Completed Universit y of Vaccine [place] .5 mL 00:00:00 [place] [facility] 6+ MO Branch Influenza Virus 2020-05-18 Completed Universit y of Vaccine [place] .5 mL 00:00:00 [facility] 6+ MO Branch Influenza Virus 2020-05-18 Completed Universit y of Vaccine [place] .5 mL 00:00:00 [facility] 6+ MO Branch Influenza Virus 2020-05-18 Completed Universit y of Vaccine [place] .5 mL 00:00:00 [place] [facility] IM 6+ MO Branch Influenza Virus 2020-05-18 Completed Universit y of Vaccine [place] .5 mL 00:00:00 [place] [facility] IM 6+ MO Branch Influenza Virus 2020-05-18 Completed Universit y of Vaccine [place] .5 mL 00:00:00 [place] [facility] IM 6+ MO Branch Influenza Virus 2020-05-18 Completed Universit y of Vaccine [place] .5 mL 00:00:00 [place] [facility] IM 6+ MO Branch Influenza Virus 2020-05-18 Completed Universit y of Vaccine [place] .5 mL 00:00:00 [place] [facility] 6+ MO Branch Influenza Virus 2020-05-18 Completed Universit y of Vaccine [place] .5 mL 00:00:00 [facility] 6+ MO Branch Influenza Virus 2020-05-18 Completed [...] y of Vaccine [place] .5 mL 00:00:00 [place] [facility] IM 6+ MO Branch Vital Signs Vital Name Observation Time Observation Value Comments Source Height 2022-12-06 11:35:00 167.64 CM Weight 2022-12-06 11:35:00 49.89 KG Systolic blood 2022-08-25 01:13:00 163 mm[Hg] Univer sity of pressure [facility] [place] Diastolic blood 2022-08-25 01:13:00 88 mm[Hg] Unive rsity of pressure [facility] [place] Heart rate 2022-08-25 01:13:00 88 /min [facility] Body temperature 2022-08-25 01:13:00 36.44 Susan [facility] Oxygen saturation in 2022-08-25 01:13:00 97 /min [facility] Arterial blood by [facility] Pulse oximetry Branch Respiratory rate 2022-08-24 21:00:00 18 /min [facility] 2022-08-23 18:00:00 38.964 kg [facility] BMI 2022-08-23 18:00:00 13.86 kg/m2 [facility] Body height 2022-08-19 00:43:00 167.6 cm [facility] Diastolic blood 2022-08-05 20:34:00 95 mm[Hg] Unive rsity of pressure [place] [facility] Heart rate 2022-08-05 20:34:00 88 /min [facility]i ty [facility] [place] [facility] Body temperature 2022-08-05 20:34:00 36.39 Susan Univ ersity of [place] [facility] Respiratory rate 2022-08-05 20:34:00 16 /min Univ ersity of [place] [facility] Oxygen saturation in 2022-08-05 20:34:00 99 /min University of Arterial blood by [facility] srinivasa Pulse oximetry Branch Systolic blood 2022-08-05 [...] 80 /min University of Arterial blood by [facility] Pulse oximetry Branch Body weight 2022-07-30 03:33:00 41.731 kg Universi ty of [place] [facility] BMI 2022-07-30 03:33:00 15.31 kg/m2 Universi ty [facility] [place] [facility] Systolic blood 2022-02-01 20:17:00 141 mm[Hg] Univer sity of pressure [place] [facility] Diastolic blood 2022-02-01 20:17:00 82 mm[Hg] Unive rsity of pressure [place] [facility] Heart rate 2022-02-01 20:17:00 83 /min Universi ty [facility] [place] [facility] Body temperature 2022-02-01 20:17:00 37.06 Susan Univ ersity of [place] [facility] Respiratory rate 2022-02-01 20:17:00 18 /min Univ ersity of [place] [facility] Oxygen saturation in 2022-02-01 20:17:00 99 /min University of Arterial blood by [place] [employer] srinivasa Pulse oximetry Branch Body height 2022-01-22 17:23:00 165.1 cm Universi ty of [place] [facility] Body weight 2022-01-22 17:23:00 41.731 kg Universi ty of [place] [facility] BMI 2022-01-22 17:23:00 15.31 kg/m2 Universi ty of [place] [facility] Systolic blood 2022-01-20 13:00:00 135 mm[Hg] Univer sity of pressure [place] [facility] Diastolic blood 2022-01-20 13:00:00 90 mm[Hg] Unive rsity of pressure [place] [facility] Heart rate 2022-01-20 13:00:00 84 /min Universi ty of [place] [facility] Body temperature 2022-01-20 12:00:00 36.67 Susan Univ ersity of [place] [facility] Respiratory rate 2022-01-20 12:00:00 16 /min Univ ersity of [place] [facility] Oxygen saturation in 2022-01-20 12:00:00 93 /min University of Arterial blood by [place] [employer] srinivasa Pulse oximetry Branch Body weight 2022-01-19 09:50:00 48.5 kg Universi ty of [place] [facility] BMI 2022-01-19 09:50:00 19.56 kg/m2 Universi ty [facility] [place] [facility] Body height 2022-01-17 01:34:00 157.5 cm Universi ty [facility] [place] [facility] Systolic blood 2020-11-10 13:25:00 98 mm[Hg] Univer sity of pressure [place] [facility] Diastolic blood 2020-11-10 13:25:00 60 mm[Hg] Unive rsity of pressure [place] [facility] Heart rate 2020-11-10 13:25:00 81 /min Universi ty [facility] [place] [facility] Body temperature 2020-11-10 13:25:00 36.28 Susan Univ ersity of [place] [facility] Respiratory rate 2020-11-10 13:25:00 18 /min Univ ersity of [place] [facility] Oxygen saturation in 2020-11-10 13:25:00 98 /min University of Arterial blood by [place] [employer] srinivasa Pulse oximetry Branch Body weight 2020-11-07 20:45:00 43.999 kg Universi ty of [place] [facility] [place] BMI 2020-11-07 20:45:00 16.14 kg/m2 Universi ty of [facility] [place] Body height 2020-10-17 17:36:00 165.1 cm Universi ty of [facility] [place] Systolic blood 2020-04-04 14:40:00 149 mm[Hg] Univer sity of pressure [facility] [place] Diastolic blood 2020-04-04 14:40:00 85 mm[Hg] Unive rsity of pressure [facility] [place] Heart rate 2020-04-04 14:40:00 88 /min Universi ty of [facility] [place] Body temperature 2020-04-04 14:40:00 36.89 Susan [facility] ersity of [facility] [place] Respiratory rate 2020-04-04 14:40:00 18 /min Univ ersity of [facility] [place] Body weight 2020-04-04 14:40:00 68.04 kg Universi ty [facility] Oxygen saturation in 2020-04-04 14:40:00 97 /min University of Arterial blood by [facility] Pulse oximetry Branch Systolic blood 2019-06-08 16:00:00 163 mm[Hg] Univer sity of pressure [facility] [place] Diastolic blood 2019-06-08 16:00:00 88 mm[Hg] Unive rsity of pressure [facility] [place] Heart rate 2019-06-08 16:00:00 64 /min Universi ty of [facility] [place] Respiratory rate 2019-06-08 16:00:00 17 /min [facility] ersity of [facility] [place] Oxygen saturation in 2019-06-08 16:00:00 100 /min [place] of Arterial blood by [facility] Pulse oximetry Branch Body temperature 2019-06-08 14:46:00 36.89 Susan [facility] ersity of [facility] [place] Body weight 2019-06-08 14:44:00 43.092 kg Universi ty of [facility] [place] Weight 2012-02-14 12:29:00 [facility] Height 2012-02-14 12:29:00 170.18 cm [facility] Procedures Procedure Date / Time Performing Clinician Source Performed REPL R HIP JNT FEMR METL 2022-12-04 [facility] [place] [facility] 00:00:00 [place] BASIC METABOLIC PANEL (NA, 2022-08-23 Ronnie Abarca Unive rsity of K, CL, CO2, GLUCOSE, BUN, 18:39:00 [place] [facility] CREATININE, [place]) Branch POCT GLUCOSE (AUTOMATED) 2022-08-23 Destinee Casanova [facility] sity of 13:23:00 [facility] [place] BASIC METABOLIC PANEL (NA, 2022-08-22 Ronnie Abarca [facility] rsity of K, CL, CO2, GLUCOSE, BUN, 10:23:00 [place] [facility] CREATININE, [place]) Branch AUTHORIZATION FOR RELEASE OF 2022-08-22 Doctor Unassigned, [facility] 06:01:00 Name [facility] [place] POCT GLUCOSE (AUTOMATED) 2022-08-22 Destinee Casanova [facility] sity of 02:24:00 [facility] [place] XR KUB 2022-08-21 [facility] 22:49:00 [facility] [place] BASIC METABOLIC PANEL (NA, 2022-08-21 [facility] K, CL, CO2, GLUCOSE, BUN, 09:47:00 [place] [facility] CREATININE, [place]) Branch MAGNESIUM 2022-08-20 [facility] of 11:33:00 [facility] [place] BASIC METABOLIC PANEL (NA, 2022-08-20 [facility] ersity of K, CL, CO2, GLUCOSE, BUN, 11:33:00 [place] [facility] CREATININE, [place]) Branch CBC WITH DIFF 2022-08-20 [facility] of 11:33:00 [facility] [place] BASIC METABOLIC PANEL (NA, 2022-08-19 [facility] ersity of K, CL, CO2, GLUCOSE, BUN, 19:28:00 [place] [facility] CREATININE, [place]) Branch MAGNESIUM 2022-08-19 [facility] of 11:48:00 [facility] [place] CORTISOL AM 2022-08-19 [facility] of 11:48:00 [facility] [place] VITAMIN B12, LEVEL 2022-08-19 [facility] o f 11:48:00 [facility] [place] FOLATE 2022-08-19 [facility] of 11:48:00 [facility] [place] THYROID STIMULATING HORMONE 2022-08-19 [facility] versity of 11:48:00 [facility] [place] BASIC METABOLIC PANEL (NA, 2022-08-19 [facility] ersity of K, CL, CO2, GLUCOSE, BUN, 11:48:00 [facility] CREATININE, [place]) Branch CBC WITH DIFF 2022-08-19 [facility] 11:48:00 [facility] [place] EKG-12 LEAD 2022-08-18 Yojana Max [place] of 19:59:35 [facility] [place] XR CHEST 1 VW 2022-08-18 Yojana Max [place] of 18:07:00 [facility] [place] OSMOLALITY, SERUM OR PLASMA 2022-08-18 Yojana Max Uni versity of 17:56:00 [facility] [place] OSMOLALITY URINE 2022-08-18 Yojana Max [facility] 17:56:00 [facility] [place] AMMONIA, PLASMA 2022-08-18 Yojana Max [facility] 17:56:00 [facility] [place] TROPONIN I 2022-08-18 Yojana Max [facility] 17:56:00 [facility] [place] COMP. METABOLIC PANEL 2022-08-18 Yojana Max Universit y of ([id number]) 17:56:00 [facility] [place] CBC WITH DIFF 2022-08-18 Yojana Max [facility] 17:56:00 [facility] [place] URINALYSIS 2022-08-18 Yojana Max [facility] 17:56:00 [facility] [place] N-TERMINAL PRO-BNP 2022-08-18 Yojana Max [place] o f 17:56:00 [facility] [place] SODIUM, URINE RANDOM 2022-08-18 Yojana Max [facility] 17:56:00 [facility] [place] CONSENT/REFUSAL FOR 2022-08-18 Doctor Unassigned, No Univer sity of DIAGNOSIS AND TREATMENT 17:13:53 Name [facility] 2022-08-05 Ariel Reynolds [place] of 09:52:00 [facility] [place] BASIC METABOLIC PANEL (NA, 2022-08-05 Maggie Monsalve niversity of K, CL, CO2, GLUCOSE, BUN, 09:52:00 [facility] CREATININE, [place]) Branch PHOSPHORUS 2022-08-04 Willem Duff [place] of 10:48:00 [facility] [place] MAGNESIUM 2022-08-04 Willem Duff [place] of 10:48:00 [facility] [place] CORTISOL AM 2022-08-04 [facility] of 10:48:00 [facility] [place] OSMOLALITY, SERUM OR PLASMA 2022-08-04 [facility], [facility] ersity of 10:48:00 [facility] [place] THYROID STIMULATING HORMONE 2022-08-04 Maggie Monsalve [place] of 10:48:00 [facility] COMP. METABOLIC PANEL 2022-08-04 [facility] of ([id number]) 10:48:00 [facility] CBC WITH DIFF 2022-08-04 Omega, [facility] of 10:48:00 [facility] N-TERMINAL PRO-BNP 2022-08-04 Omega, [facility] of 10:48:00 [facility] XR CHEST 1 VW 2022-08-04 Omega, [facility] of 10:15:00 [facility] AC PANEL 21 + LACTIC ACID 2022-08-[address] [facility] sity of 05:26:00 [facility] PREALBUMIN, SERUM 2022-08-04 [facility] of 05:19:00 [facility] URIC ACID 2022-08-04 [facility] of 05:19:00 [facility] MAGNESIUM 2022-08-04 Omega, [facility] of 05:19:00 [facility] FERRITIN SERUM 2022-08-04 [facility] of 05:19:00 [facility] OSMOLALITY, SERUM OR PLASMA 2022-08-04 Omega, [facility] ersity of 05:19:00 [facility] VITAMIN B12, LEVEL 2022-08-04 [facility] of 05:19:00 [facility] LIPID PANEL ([id number])(TOTAL 2022-08-[address] [facility] sity of CHOLESTEROL, TRIGLYCERIDES, 05:19:00 [facility] HDL) Branch IRON PANEL 2022-08-04 [facility] of 05:19:00 [facility] PROTHROMBIN TIME / INR 2022-08-04 [facility] y of 05:19:00 [facility] N-TERMINAL PRO-BNP 2022-08-04 [facility] of 05:19:00 [facility] VITAMIN D, 25-OH 2022-08-04 Omega, [facility] of 05:19:00 [facility] PROCALCITONIN 2022-08-04 [facility] of 05:19:00 [facility] OSMOLALITY URINE 2022-08-04 Omega, [facility] of 04:42:00 [facility] UREA NITROGEN, URINE RANDOM 2022-08-04 Omega, [facility] ersity of 04:42:00 [facility] URINE DRUG (IMMUNOASSAY) - 2022-08-04 Omega, [facility] rsity of COMPREHENSIVE DRUG SCREEN 03:15:00 [facility] CREATINE KINASE 2022-08-03 [facility], [facility] of 19:25:00 [facility] LIPASE 2022-08-03 Bashir, [facility] of 19:25:00 [facility] HEPATIC FUNCTION PANEL 2022-08-03 [facility] y of ([id number]) (ALB,T.PRO,BILI 19:25:00 [facility] T,BU/BC,ALT,AST,ALK PHOS) Branch BASIC METABOLIC PANEL (NA, 2022-08-03 [facility], [facility] rsity of K, CL, CO2, GLUCOSE, BUN, 19:25:00 [facility] CREATININE, CA) Branch CBC WITH DIFF 2022-08-03 [facility] of 19:25:00 [facility] GLYCOSYLATED HEMOGLOBIN 2022-08-03 [facility] of (A1C) 19:25:00 [facility] URINALYSIS 2022-08-03 [facility] of 19:25:00 [facility] SODIUM, URINE RANDOM 2022-08-03 [facility] of 19:25:00 [facility] PROTEIN CREAT RATIO URINE 2022-08-[address] [facility] sity of RANDOM 19:25:00 [facility] CONSENT/REFUSAL FOR 2022-08-03 Doctor Unassigned, No Univer sity of DIAGNOSIS AND TREATMENT 18:38:27 Name [facility] dical Branch CT HEAD WO CONTRAST 2022-07-[address] [facility] of 06:18:00 [facility] XR CHEST 1 VW 2022-07-[address] [facility] of 06:17:00 [facility] URINE DRUG (IMMUNOASSAY) - 2022-07-30 [facility] of COMPREHENSIVE DRUG SCREEN 04:47:00 [facility] URINALYSIS 2022-07-30 [facility] of 04:47:00 [facility] LIPASE 2022-07-30 [facility] of 04:35:00 [facility] COMP. METABOLIC PANEL 2022-07-30 [facility] of ([id number]) 04:35:00 [facility] CBC WITH DIFF 2022-07-30 [facility] of 04:35:00 [facility] XR PELVIS 3+ VW 2022-02-01 Juan [facility] of 02:12:00 [facility] MAGNESIUM 2022-01-29 Ezio [facility] of 10:18:00 [facility] BASIC METABOLIC PANEL (NA, 2022-01-29 Ezio [facility] rsity of K, CL, CO2, GLUCOSE, BUN, 10:18:00 [facility] CREATININE, [place]) Branch CBC WITH DIFF 2022-01-29 Ezio, [facility] of 10:18:00 [facility] MAGNESIUM 2022-01-27 Karolina [facility] of 10:34:00 [facility] BASIC METABOLIC PANEL (NA, 2022-01-27 Marybeth Turcios [facility] rsity of K, CL, CO2, GLUCOSE, BUN, 10:34:00 [facility] CREATININE, CA) Branch CBC WITH DIFF 2022-01-27 Marybeth Turcios [place] of 10:34:00 [facility] BLOOD CULTURE SCREEN 2022-01-26 Marybeth Turcios [place] of 17:31:00 [facility] BLOOD CULTURE SCREEN 2022-01-26 Marybeth Turcios [place] of 16:09:00 [facility] VITAMIN B6, PLASMA 2022-01-26 Marybeth Turcios [place] of 09:11:00 [facility] MAGNESIUM 2022-01-25 Marybeth Turcios [place] of 08:22:00 [facility] BASIC METABOLIC PANEL (NA, 2022-01-25 Marybeth Turcios [facility] rsity of K, CL, CO2, GLUCOSE, BUN, 08:22:00 [facility] CREATININE, CA) Branch ELECTROENCEPHALOGRAM 2022-01-25 [facility] of 00:00:00 [facility] COPPER, SERUM 2022-01-24 Marybeth Turcios [place] of 19:59:00 [facility] ZINC, SERUM 2022-01-24 Marybeth Turcios [place] of 19:59:00 [facility] CERULOPLASMIN 2022-01-24 Marybeth Turcios [place] of 19:59:00 [facility] MAGNESIUM 2022-01-24 Marybeth Turcios [place] of 09:34:00 [facility] VITAMIN B12, LEVEL 2022-01-24 Marybeth Turcios [place] of 09:34:00 [facility] FOLATE 2022-01-24 Karolina [facility] of 09:34:00 [facility] BASIC METABOLIC PANEL (NA, 2022-01-24 Marybeth Turcios [facility] rsity of K, CL, CO2, GLUCOSE, BUN, 09:34:00 [facility] CREATININE, CA) Branch CBC WITH DIFF 2022-01-24 Marybeth Turcios [place] of 09:34:[address] [facility] [address] HEAD WO CONTRAST 2022-01-23 Kristian Hester [facility] sity of 10:26:00 [facility] HB ECG ROUTINE & RHYTHM 2022-01-23 Kristian Hester Un iversity of STRIP 02:59:29 [facility] GALV ONLY - INFLUENZA A B 2022-01-23 Kristian Hester RSV PCR 02:48:00 [facility] COVID-19 (ID NOW RAPID 2022-01-23 Kristian Hester Uni versity of TESTING) 02:48:00 [facility] LAB ONLY COVID 2022-01-23 Kristian Hester of INTERPRETATION 02:48:00 [facility] SEDIMENTATION RATE 2022-01-23 Kristian Hester [facility] ity of 02:45:00 [facility] VITAMIN B1 (THIAMINE), WHOLE 2022-01-23 Joseph Hester bisi [facility] BLOOD 02:45:00 [facility] XR CHEST 1 VW 2022-01-23 Kristian Hester [place] of 02:06:00 [facility] XR LUMBAR SPINE 2 VW 2022-01-23 Kristian Hester [facility] rsity of 02:06:00 [facility] XR KUB 2022-01-23 [facility] of 02:06:00 [facility] XR PELVIS <3 VW 2022-01-23 [facility] 02:06:00 [facility] HB ECG ROUTINE & RHYTHM 2022-01-22 Chiqui Rosen [facility] rsity of STRIP 19:58:42 [facility] URINE CULTURE 2022-01-22 Chiqui Rosen [facility] 19:55:00 [facility] URINE DRUG (IMMUNOASSAY) - 2022-01-22 Chiqui Rosen Un iversity of COMPREHENSIVE DRUG SCREEN 19:55:00 [facility] W/O REFLEX [place] URINALYSIS 2022-01-22 Chiqui Rosen [facility] 19:53:00 [facility] BLOOD CULTURE SCREEN 2022-01-22 [facility] of 18:01:00 [facility] MAGNESIUM 2022-01-22 Chiqui Rosen [facility] 18:01:00 [facility] TROPONIN I 2022-01-22 [facility] 18:01:00 [facility] COMP. METABOLIC PANEL 2022-01-22 Chiqui Rosen [facility] ity of ([id number]) 18:01:00 [facility] CBC WITH DIFF 2022-01-22 Chiqui Rosen [facility] 18:01:00 [facility] LACTIC ACID WHOLE BLOOD 2022-01-22 Chiqui Rosen [facility] rs[facility] of 18:01:00 [facility] BLOOD CULTURE WORKUP 2022-01-22 Chiqui Rosen Universi ty of 18:01:00 [facility] BLOOD CULTURE WORKUP 2022-01-22 Chiqui Rosen Universi ty of 18:01:00 [facility] GRAM POSITIVE BLOOD 2022-01-22 Chiqui Rosen Universit y of PATHOGENS DNA PROBE-AEROBIC 18:01:00 [facility] CONSENT/REFUSAL FOR 2022-01-22 Doctor Unassigned, No Univer sity of DIAGNOSIS AND TREATMENT 17:11:50 Name [facility] HOSPITAL ADMISSION 2022-01-22 Doctor Unassigned, No Univers ity of 05:01:00 Name [facility] COMP. METABOLIC PANEL 2022-01-19 Rodrick Tomlinson [place] of ([id number]) 11:32:00 [facility] CBC WITH DIFF 2022-01-19 Rodrick Tomlinson [place] of 11:32:00 [facility] MR BRAIN WO CONTRAST 2022-01-18 Rodrick Tomlinson [place] of 17:02:05 [facility] POCT GLUCOSE (AUTOMATED) 2022-01-17 Rodrick Tomlinson [facility] ity of 21:59:00 [facility] XR KUB 2022-01-17 Ulises Aguilar [facility] of 21:21:58 [facility] ADC OR FIDE ONLY - RPR 2022-01-17 Rodrick Tomlinson [facility] sity of 20:27:00 [facility] MRSA / MSSA SCREEN BY PCR, 2022-01-17 Rodrick Tomlinson [facility] rsity of NARES 16:42:00 [facility] POCT GLUCOSE (AUTOMATED) 2022-01-17 Rodrick Tomlinson [facility] ity of 16:41:00 [facility] POCT GLUCOSE (AUTOMATED) 2022-01-17 Rodrick Tomlinson [facility] ity of 13:03:00 [facility] PHOSPHORUS 2022-01-17 Rodrick Tomlinson [place] of 09:57:00 [facility] VITAMIN B12, LEVEL 2022-01-17 Rodrick Tomlinson [place] of 09:57:00 [facility] FOLATE 2022-01-17 [facility] of 09:57:00 [facility] FREE T4 2022-01-17 Rodrick Tomlinson [place] of 09:57:00 [facility] ADC OR FIDE ONLY - RPR 2022-01-17 Rodrick Tomlinson [facility] sity of 09:57:00 [facility] THYROID STIMULATING HORMONE 2022-01-17 Davi [facility] ersity of 09:56:00 [facility] MAGNESIUM 2022-01-17 [facility] of 09:55:00 [facility] BASIC METABOLIC PANEL (NA, 2022-01-17 Rodrick Tomlinson [facility] rs[facility] of K, CL, CO2, GLUCOSE, BUN, 09:55:00 [facility] CREATININE, CA) Branch CBC WITH DIFF 2022-01-17 Rodrick Tomlinson [place] of 09:55:00 [facility] URINE CULTURE 2022-01-17 [place], [facility] o f 00:05:00 [facility] COMP. METABOLIC PANEL 2022-01-16 [place], [facility] sity of ([id number]) 22:14:00 [facility] URINE DRUG (IMMUNOASSAY) - 2022-01-16 [facility] n[facility] of COMPREHENSIVE DRUG SCREEN 21:57:00 [facility] TROPONIN I 2022-01-16 [place] [facility] o f 21:29:00 [facility] CBC WITH DIFF 2022-01-16 [place] [facility] o f 21:29:00 [facility] PROTHROMBIN TIME / INR 2022-01-16 [facility] rsity of 21:29:00 [facility] URINALYSIS 2022-01-16 [facility] o f 21:29:[address] [facility] [address] HEAD WO CONTRAST 2022-01-16 [facility] of 21:11:19 [facility] HB ECG ROUTINE & RHYTHM 2022-01-16 [facility] ersity of STRIP 20:55:18 [facility] XR CHEST 1 VW 2022-01-16 [facility] o f 20:48:49 [facility] NOTICE OF PRIVACY PRACTICES 2022-01-16 Doctor Unassigned, N o University of 19:58:20 [facility] CONSENT/REFUSAL FOR 2022-01-16 Doctor Unassigned, No [facility] sity of DIAGNOSIS AND TREATMENT 19:57:56 Name [facility] AUTHORIZATION FOR RELEASE OF 2021-03-01 Doctor Unassigned, No University of [facility] 05:01:00 [facility] AUTHORIZATION FOR RELEASE OF 2021-02-16 Doctor Unassigned, No University of [facility] 05:01:00 Name [facility] EXTERNAL PROVIDER RECORDS 2020-11-22 Doctor Unassigned, No University of 06:01:00 [facility] COVID-19 (ID NOW RAPID 2020-11-10 Jey Mejía rsity of TESTING) 00:27:00 [facility] XR KUB 2020-11-09 Jey Mejía o f 23:36:27 [facility] BASIC METABOLIC PANEL (NA, 2020-11-09 Jey Mejía U niversity of K, CL, CO2, GLUCOSE, BUN, 10:11:00 [facility] CREATININE, ID) Branch CBC WITH DIFF 2020-11-09 Jey Mejía o f 10:11:00 [facility] BASIC METABOLIC PANEL (NA, 2020-11-07 Jey Mejía U niversity of K, CL, CO2, GLUCOSE, BUN, 10:05:00 [facility] CREATININE, ID) Branch CBC WITH DIFF 2020-11-07 Jey Mejía o f 10:05:00 [facility] HEPATIC FUNCTION PANEL 2020-11-05 Jey Mejía [facility] rsity of ([id number]) (ALB,T.PRO,BILI 09:59:00 [facility] dical T,BU/BC,ALT,AST,ALK PHOS) Branch BASIC METABOLIC PANEL (NA, 2020-11-05 Jey Mejía U niversity of K, CL, CO2, GLUCOSE, BUN, 09:59:00 [facility] CREATININE, ID) Branch CBC WITH DIFF 2020-11-05 Jey Mejía o f 09:59:00 [facility] CEREBROSPINAL FLUID PROTEIN 2020-10-27 Jey Mejía [place] of 19:49:00 [facility] CEREBROSPINAL FLUID GLUCOSE 2020-10-27 Jey Mejía [place] of 19:49:00 [facility] BODY FLUID DIRECT COUNT 2020-10-27 Jey Mejía [facility] ersity of 19:49:00 [facility] CSF/MANAGER INSTALLATION SHUNT CULTURE 2020-10-27 Jey Mejía [facility] it of 19:49:00 [facility] CSF CULTURE 2020-10-27 Jey Mejía o f 19:49:00 [facility] BASIC METABOLIC PANEL (NA, 2020-10-27 Jey Mejía U niversity of K, CL, CO2, GLUCOSE, BUN, 11:41:00 [facility] CREATININE, CA) Branch CBC WITH DIFF 2020-10-27 [facility] o f 11:41:00 [facility] POCT GLUCOSE (AUTOMATED) 2020-10-27 Frances Terry [facility] ity of 01:51:00 [facility] COVID-19 (ID NOW RAPID 2020-10-26 Jey Mejía [facility] rsity of TESTING) 18:47:00 [facility] LAB ONLY COVID 2020-10-26 [facility] o f INTERPRETATION 18:47:00 [facility] MR BRAIN W WO CONTRAST 2020-10-26 Aravind [facility] rsity of 17:18:[address] [facility] [address] CHEST PULMONARY ANGIOGRAM 2020-10-26 [facility] of 16:39:40 [facility] XR CHEST 1 VW 2020-10-26 [facility] of 13:00:00 [facility] D-DIMER 2020-10-26 [facility] of 11:04:00 [facility] EXTRA TUBE RED 2020-10-26 [facility] of 11:04:00 [facility] URINALYSIS 2020-10-26 [facility] of 08:35:00 [facility] URINE CULTURE 2020-10-26 [facility] of 08:35:00 [facility] BLOOD CULTURE SCREEN 2020-10-26 [facility] sity of 08:22:00 [facility] BLOOD CULTURE SCREEN 2020-10-26 [facility] sity of 08:11:00 [facility] MAGNESIUM 2020-10-26 [facility] of 08:02:00 [facility] BASIC METABOLIC PANEL (NA, 2020-10-26 [facility] of K, CL, CO2, GLUCOSE, BUN, 08:02:00 [facility] CREATININE, CA) Branch EXTRA TUBE LAV 2020-10-26 Frances Terry [place] of 08:02:00 [facility] MAGNESIUM 2020-10-25 [facility] of 10:43:00 [facility] BASIC METABOLIC PANEL (NA, 2020-10-25 Lindsey Urbina [facility] of K, CL, CO2, GLUCOSE, BUN, 10:43:00 [facility] CREATININE, CA) Branch CBC WITH DIFF 2020-10-25 [facility] 10:43:00 [facility] Branch FREE T4 2020-10-24 Jey Mejía [place] o f 19:55:00 [facility] MAGNESIUM 2020-10-24 Lindsey Urbina, [facility] of 09:22:00 [facility] THYROID STIMULATING HORMONE 2020-10-24 Jey Mejía [place] of 09:22:00 [facility] BASIC METABOLIC PANEL (NA, 2020-10-24 César Urbina [facility] of K, CL, CO2, GLUCOSE, BUN, 09:22:00 [facility] CREATININE, CA) Branch CBC WITH DIFF 2020-10-24 [facility] of 09:22:00 [facility] BASIC METABOLIC PANEL (NA, 2020-10-22 Olivia, Sina Unive rsity of K, CL, CO2, GLUCOSE, BUN, 10:35:00 [facility] CREATININE, CA) Branch CBC WITH DIFF 2020-10-22 Jey Mejía [place] o f 10:35:00 [facility] MAGNESIUM 2020-10-21 César Urbina [facility] of 10:26:00 [facility] BASIC METABOLIC PANEL (NA, 2020-10-21 Olivia, Sina Unive rsity of K, CL, CO2, GLUCOSE, BUN, 10:26:00 [facility] CREATININE, CA) Branch CBC WITH DIFF 2020-10-21 Aravind [place] Jey [place] o f 10:26:00 [facility] TROPONIN I 2020-10-20 [facility] of 10:38:00 [facility] CBC WITH DIFF 2020-10-20 César Urbina [facility] of 10:38:00 [facility] PROTHROMBIN TIME / INR 2020-10-20 César Urbina [facility] ersity of 10:37:00 [facility] ACTIVATED PARTIAL THRMPLAS 2020-10-20 [facility] of CAMERON 10:37:00 [facility] MAGNESIUM 2020-10-20 [facility] of 09:30:00 [facility] HEPATIC FUNCTION PANEL 2020-10-20 [facility] ersity of ([id number]) (ALB,T.PRO,BILI 09:30:00 [facility] dical T,BU/BC,ALT,AST,ALK PHOS) Branch BASIC METABOLIC PANEL (NA, 2020-10-20 [facility] of K, CL, CO2, GLUCOSE, BUN, 09:30:00 [facility] CREATININE, CA) Branch XR KUB 2020-10-19 [facility] of 11:25:00 [facility] MAGNESIUM 2020-10-19 [facility] of 09:24:00 [facility] BASIC METABOLIC PANEL (NA, 2020-10-19 [facility] of K, CL, CO2, GLUCOSE, BUN, 09:24:00 [facility] CREATININE, CA) Branch BASIC METABOLIC PANEL (NA, 2020-10-19 Jey Mejía U niversity of K, CL, CO2, GLUCOSE, BUN, 04:08:00 [facility] CREATININE, ID) Branch MAGNETIC RESONANCE IMAGING 2020-10-19 Anesthesiology [facility] rsity of UNDER ANESTHESIA 03:25:00 [facility] MR BRAIN W WO CONTRAST 2020-10-18 Jey Mejía [facility] rsity of 21:29:00 [facility] MR ABDOMEN W WO CONTRAST 2020-10-18 Jey Mejía Uni versity of MRCP 21:29:00 [facility] ECHO ROUTINE W/DOPPLER COLOR 2020-10-18 Jey Mejía of 17:10:24 [facility] MAGNESIUM 2020-10-18 [facility] of 10:37:00 [facility] BASIC METABOLIC PANEL (NA, 2020-10-18 [facility] of K, CL, CO2, GLUCOSE, BUN, 10:37:00 [facility] CREATININE, CA) Branch CBC WITH DIFF 2020-10-18 Jey Mejía o f 10:37:00 [facility] XR KUB 2020-10-17 eJy Mejía o f 22:52:00 [facility] BLOOD CULTURE SCREEN 2020-10-17 Jey Mejía [facility] ity of 21:53:00 [facility] MISCELLANEOUS SEND OUT TEST 2020-10-17 Macario Kirby [place] of 19:57:00 [facility] URINALYSIS 2020-10-17 Jey Mejía o f 19:40:00 [facility] URINE CULTURE 2020-10-17 Jey Mejía o f 19:40:00 [facility] NEUTROPHIL CYTOPLASMIC AB, 2020-10-17 Jey Mejía niversity of IGG 19:36:00 [facility] LACTIC ACID WHOLE BLOOD 2020-10-17 Jey Mejía [facility] ersity of 19:33:00 [facility] CANCER ANTIGEN-GI (CA 19-9) 2020-10-17 Jey Mejía of 19:21:00 [facility] BLOOD CULTURE SCREEN 2020-10-17 Jey Mejía [facility] ity of 19:21:00 [facility] CARCINOEMBRYONIC ANTIGEN 2020-10-17 Jey Mejía Uni versity of 19:21:00 [facility] BASIC METABOLIC PANEL (NA, 2020-10-17 Jey Mejía U niversity of K, CL, CO2, GLUCOSE, BUN, 19:21:00 [facility] CREATININE, CA) Branch CA-125 2020-10-17 Jey Mejía o f 19:21:[address] [facility] [address] ABDOMEN PELVIS W CONTRAST 2020-10-17 Maxx Kirby [place] of 15:59:[address] [facility] [address] THORAX W CONTRAST 2020-10-17 Macario Kirby [facility] sity of 15:59:15 [facility] MAGNESIUM 2020-10-17 Macario Kirby [place] of 11:12:00 [facility] C-REACTIVE PROTEIN 2020-10-17 Jey Mejía [facility] y of 11:12:00 [facility] BASIC METABOLIC PANEL (NA, 2020-10-17 [facility] of K, CL, CO2, GLUCOSE, BUN, 11:12:00 [facility] CREATININE, CA) Branch SEDIMENTATION RATE 2020-10-17 Jey Mejía [facility] y of 11:12:00 [facility] CBC WITH DIFF 2020-10-17 [facility] of 11:12:00 [facility] MAGNESIUM 2020-10-17 [facility] of 10:07:00 [facility] CBC WITH DIFF 2020-10-17 [facility] of 10:07:00 [facility] MISCELLANEOUS SEND OUT TEST 2020-10-17 Macario Kirby of 10:07:00 [facility] CEREBROSPINAL FLUID PROTEIN 2020-10-17 César Urbina [facility] of 07:57:00 [facility] CEREBROSPINAL FLUID GLUCOSE 2020-10-17 [facility] of 07:57:00 [facility] BODY FLUID DIRECT COUNT 2020-10-17 Macario Kirby Uni versity of 07:57:00 [facility] CSF/MANAGER INSTALLATION SHUNT CULTURE 2020-10-17 Macario Kirby Univer sity of 07:57:00 [facility] FUNGUS (ROUTINE) CULTURE 2020-10-17 Macario Kirby Un iversity of 07:57:00 [facility] MISCELLANEOUS SEND OUT TEST 2020-10-17 Jey Mejía [place] of 07:57:00 [facility] CSF CULTURE 2020-10-17 [facility] 07:57[facility]00 [facility] MISCELLANEOUS SEND OUT TEST 2020-10-17 Macario Kirby of 07:56:00 [facility] I-THFHRQ-N-ASPARTATE 2020-10-17 Macario Kirby Univer sity of RECEPTOR AB, CSF 07:56:00 [facility] ELECTROENCEPHALOGRAM 2020-10-17 [facility] of 00:00:00 [facility] MR BRAIN WO CONTRAST 2020-10-16 [facility] of 21:37:16 [facility] CORTISOL AM 2020-10-16 Masood [facility] of 11:01:00 [facility] BASIC METABOLIC PANEL (NA, 2020-10-16 Muranova, Diana U niversity of K, CL, CO2, GLUCOSE, BUN, 11:01:00 [facility] CREATININE, CA) Branch POTASSIUM, URINE RANDOM 2020-10-16 Muranova, Diana Univ ersity of 06:25:00 [facility] SODIUM, URINE RANDOM 2020-10-16 Muranova, Diana Univers ity of 06:25:00 [facility] MAGNESIUM, URINE RANDOM 2020-10-16 Muranova, Diana Univ ersity of 06:25:00 [facility] CALCIUM, URINE RANDOM 2020-10-16 [facility], [facility] 06:25:00 [facility] GLUCOSE, URINE RANDOM 2020-10-16 [facility] of 06:25:00 [facility] OSMOLALITY URINE 2020-10-15 [facility], [facility] of 22:40:00 [facility] CREATININE, URINE RANDOM 2020-10-15 Muranova, [facility] versity of 22:40:00 [facility] SODIUM, URINE RANDOM 2020-10-15 Masood, [facility] of 22:40:00 [facility] CALCIUM, URINE RANDOM 2020-10-15 Muranova, Diana Univer sity of 22:40:00 [facility] MAGNESIUM 2020-10-15 Muranoga, Diana University o f 21:50:00 [facility] BASIC METABOLIC PANEL (NA, 2020-10-15 Muranova, Diana U niversity of K, CL, CO2, GLUCOSE, BUN, 21:50:00 [facility] CREATININE, CA) Branch PHOSPHORUS 2020-10-15 Muranova, Diana University o f 11:34:00 [facility] Branch MAGNESIUM 2020-10-15 [facility] o f 11:34:00 [facility] BASIC METABOLIC PANEL (NA, 2020-10-15 [facility] niversity of K, CL, CO2, GLUCOSE, BUN, 11:34:00 [facility] CREATININE, CA) Branch CBC WITHOUT DIFF 2020-10-15 [facility] of 11:34:00 [facility] XR KUB 2020-10-14 [facility] o f 23:45:10 [facility] XR CHEST 1 VW 2020-10-14 [facility] o f 21:24:07 [facility] BASIC METABOLIC PANEL (NA, 2020-10-14 [facility] niversity of K, CL, CO2, GLUCOSE, BUN, 20:54:00 [facility] CREATININE, CA) Branch HB ECG ROUTINE & RHYTHM 2020-10-14 [facility] ersity of STRIP 16:54:32 [facility] PHOSPHORUS 2020-10-14 [facility] o f 10:58:00 [facility] MAGNESIUM 2020-10-14 [facility] o f 10:58:00 [facility] BASIC METABOLIC PANEL (NA, 2020-10-14 [facility] niversity of K, CL, CO2, GLUCOSE, BUN, 10:58:00 [facility] CREATININE, CA) Branch CBC WITHOUT DIFF 2020-10-14 [facility] of 10:58:00 [facility] CREATINE KINASE 2020-10-13 [facility] o f 22:41:00 [facility] AMMONIA, PLASMA 2020-10-13 [facility] o f 22:41:00 [facility] BASIC METABOLIC PANEL (NA, 2020-10-13 [facility] niversity of K, CL, CO2, GLUCOSE, BUN, 22:41:00 [facility] CREATININE, CA) Branch VITAMIN B1, PLASMA 2020-10-13 Gustavo Uribe of 11:04:00 [facility] PHOSPHORUS 2020-10-13 Jojo Gustavo [place] of 11:04:00 [facility] CREATINE KINASE 2020-10-13 Gustavo Uribe University of 11:04:00 [facility] MAGNESIUM 2020-10-13 Jojo [facility] of 11:04:00 [facility] OSMOLALITY, SERUM OR PLASMA 2020-10-13 Masood [facility] versity of 11:04:00 [facility] VITAMIN B12, LEVEL 2020-10-13 Jojo [facility] of 11:04:00 [facility] RHEUMATOID FACTOR 2020-10-13 [facility] of 11:04:00 [facility] TROPONIN I 2020-10-13 Jojo [facility] of 11:04:00 [facility] FREE T4 2020-10-13 Masood [facility] of 11:04:00 [facility] THYROID STIMULATING HORMONE 2020-10-13 Jojo [facility] ersity of 11:04:00 [facility] HEPATIC FUNCTION PANEL 2020-10-13 Masood [facility] ty of ([id number]) (ALB,T.PRO,BILI 11:04:00 [facility] dical T,BU/BC,ALT,AST,ALK PHOS) Branch BASIC METABOLIC PANEL (NA, 2020-10-13 Gustavo Uribe [facility] rsity of K, CL, CO2, GLUCOSE, BUN, 11:04:00 [facility] CREATININE, CA) Branch PHENYTOIN FREE 2020-10-13 [facility] of 11:04:00 [facility] SERUM DRUG (IMMUNOASSAY) - 2020-10-13 Gust[facility]ribe [facility] rsity of COMPREHENSIVE DRUG SCREEN 11:04:00 [facility] CBC WITH DIFF 2020-10-13 Gustavo Uribe [place] of 11:04:00 [facility] PROTHROMBIN TIME / INR 2020-10-13 [facility] of 11:04:00 [facility] ANTI-NUCLEAR ANTIBODY SCREEN 2020-10-13 Jey Mejía [place] of 11:04:00 [facility] HEPATITIS B VIRUS (HBV) BY 2020-10-13 Gustavo Uribe rsity of QUANTITATIVE NAAT 11:04:00 [facility] FREE T3 2020-10-13 Masood [facility] of 11:04:00 [facility] HIV 1/2 AG-AB WITH REFLEX 2020-10-13 Gustavo Uribe sity of 11:04:00 [facility] GALV ONLY - SYPHILIS IGG/IGM 2020-10-13 Gustavo Uribe [facility] versity of 11:04:00 [facility] ANTI-NUCLEAR 2020-10-13 Aravind Lockwood [facility] o f ANTIBODY-PATHOLOGIST 11:04:00 [facility] al INTERPRETATION Branch HEPATITIS C VIRUS (HCV) BY 2020-10-13 Gustavo Uribe rsity of QUANTITATIVE NAAT 11:03:[address] [facility] [address] HEAD WO CONTRAST 2020-10-13 Gustavo Uribe o f 09:58:38 [facility] XR CHEST 2 VW 2020-10-13 Gustavo Uribe [place] of 09:42:38 [facility] HB ECG ROUTINE & RHYTHM 2020-10-13 Gustavo Uribe [facility] of STRIP 08:30:00 [facility] ELECTROENCEPHALOGRAM 2020-10-13 [facility] of 00:00:00 [facility] POCT GLUCOSE (AUTOMATED) 2020-10-12 James Allen [facility] ity of 13:36:00 [facility] POCT GLUCOSE (AUTOMATED) 2020-10-12 James Allen [facility] ity of 06:16:00 [facility] COVID-19 (ID NOW RAPID 2020-10-12 [facility]) 04:57:00 [facility] LAB ONLY COVID 2020-10-12 Jhonatan Lombardo [place] of INTERPRETATION 04:57:[address] [facility] [address] HEAD WO CONTRAST 2020-10-12 [employer] Jhonatan [place] o f 04:12:18 [facility] COMP. METABOLIC PANEL 2020-10-12 Singer [facility] of ([id number]) 01:49:00 [facility] URINALYSIS 2020-10-12 Singer [facility] of 01:21:00 [facility] ADC / LCC - DRUG SCREEN 2020-10-12 James Allen [facility] ty of TRIAGE 01:21:00 [facility] AMMONIA, PLASMA 2020-10-12 Singer [facility] of 00:19:00 [facility] SALICYLATE 2020-10-12 Singer [facility] of 00:11:00 [facility] ETHANOL 2020-10-12 James Allen of 00:11:00 [facility] NOTICE OF PRIVACY PRACTICES 2020-10-11 Doctor Unassigned, N o University of 23:19:20 Name [facility] CONSENT/REFUSAL FOR 2020-10-11 Doctor Unassigned, No Univer sity of DIAGNOSIS AND TREATMENT 23:18:24 Name [facility] EXTERNAL PROVIDER RECORDS 2020-10-11 Doctor Unassigned, No University of 06:01:00 Name [facility] AGREEMENTS AUTHORIZATIONS 2020-10-11 Doctor Unassigned, No University of AND IRREVOCABLE ASSIGNMENTS 06:01:00 Name Addie gallardo [facility] (FORM 2001) Branch HOSPITAL ADMISSION 2020-10-11 Doctor Unassigned, No Univers ity of 06:01:00 Name [facility] CONSENT/REFUSAL FOR 2020-04-04 Doctor Unassigned, No Univer sity of DIAGNOSIS AND TREATMENT 14:30:46 [facility] URINALYSIS 2019-06-08 Chiqui Rosen [facility] 15:56:00 [facility] LIPASE 2019-06-08 Chiqui Rosen [facility] 15:40:00 [facility] HEPATIC FUNCTION PANEL 2019-06-08 Chiqui Rosen Univer sity of ([id number]) (ALB,T.PRO,BILI 15:40:00 [facility] T,BU/BC,ALT,AST,ALK PHOS) Branch BASIC METABOLIC PANEL (NA, 2019-06-08 Chiqui Rosen Un iversity of K, CL, CO2, GLUCOSE, BUN, 15:40:00 [facility] CREATININE, CA) Branch CBC WITH DIFFERENTIAL 2019-06-08 Chiqui Rosen Univers ity of 15:40:00 [facility] NOTICE OF PRIVACY PRACTICES 2019-06-08 Doctor Unassigned, N o University of 14:37:20 Name [facility] CONSENT/REFUSAL FOR 2019-06-08 Doctor Unassigned, No Univer sity of DIAGNOSIS AND TREATMENT 14:37:05 Name [facility] Plan of Care Planned Activity Planned Date Details Comments Source Future Scheduled 2022-10-[address] [facility] Test 00:00:00 (12+) [code = Medical Center DEPRESSION SCREENING (12+)] Future Scheduled 2022-10-07 FALLS RISK SCREENING [facility] Test 00:00:00 [code = FALLS RISK Medical C enter SCREENING] Future Scheduled 2022-09-20 [facility] Test 21:40:35 SCREENING [code = BREAST CANCER SCREENING] Future Scheduled 2022-09-20 COLONOSCOPY SCREENING [facility] Test 21:40:35 [code = COLONOSCOPY SCREENING] Future [...] VACCINE] Future Scheduled 2022-09-20 COVID-19 VACCINE (#1) [facility] Hospital Test 21:40:35 [code = COVID-19 VACCINE (#1)] Future Scheduled 2022-09-20 Hepatitis C screening [facility] Test 21:40:35 (procedure) [code = 212132886] Future Scheduled 2022-06-07 INFLUENZA VACCINE (#1) C [...] January es Test 00:00:00 [facility] breast (procedure) [code = 364794317] Future Scheduled [address] [facility] Test 00:00:00 (combo) [code = CT Medical C enter Colonography (combo)] Future Scheduled [address] [facility] Test 00:00:00 [facility] colon (procedure) [code = 705415974] Future Scheduled [address] [facility] Test 00:00:00 [facility] colon (procedure) [code = 682573698] Future Scheduled 1955 DXA SCAN [code = DXA [facility] Test 00:00:00 SCAN] [facility] Future Scheduled [address] [facility] Test 00:00:00 [facility] colon (procedure) [code = 867803904] Future Scheduled [address] [facility] Test 00:00:00 [facility] colon (procedure) [code = 259561852] Future Scheduled 1955 Sigmoidoscopy [facility]code [facility]oscopy] Medical Cente r Encounters Start End Encounter Admission Attending Care Care Encounter Source Date/Time Date/Time Type Type Clinicians Facility Department ID 2022-01-31 Outpatient [facility] [id number] [place] 13:14:07 [id number] Health 2022-12-25 2022-12-[address] [id number] 00:00:00 00:00:00 [facility] 2022-12-04 2022-12-06 Inpatient Bisi COELLO [facility] TELE [id number] [place] 06:05:00 21:25:[address] [facility] 2022-12-05 2022-12-05 ST AmandoNeida [id number] 00:00:00 00:00:00 Only Lico Thornton [facility] 2022-12-04 2022-12-04 Outpatient [facility] [id number] 00:00:00 00:00:00 [facility] 2022-12-04 2022-12-04 Outpatient [facility] [id number] 00:00:00 00:00:00 [facility] 2022-09-25 2022-09-25 Ambulatory [facility] MNA [id number] Memoria 17:00:00 17:00:00 Pre-Reg Neurology 00 l Adeline [place] 2022-09-25 2022-09-25 Ambulatory [facility] MNA [id number] [facility]oria 17:00:00 17:00:00 Pre-Reg Neurology 00 l [place] 2022-09-25 2022-09-25 Outpatient [facility]IE [facility]IE [id number] Memoria 11:00:00 11:00:00 00 l [place] 2022-09-25 2022-09-25 [id number] 11:00:00 11:00:00 Joe Alexis 2022-08-27 2022-08-27 Transition LES Salomon 1.2.840.114 [id number] Univers 00:00:00 00:00:00 of Care Santa MUKHERJEE 350.1.13.10 it y of [place] [id number] [facility] 403 Branch 2022-08-18 2022-08-24 Outpatient X [facility] [id number] Univers 11:15:00 20:10:00 DESTINEE ity of [facility] 2022-08-18 2022-08-24 Emergency Yojana Max 1.2.840 .114 [id number] Univers 11:15:00 20:10:00 Destinee Casanova 350.1.13.10 ity [facility] 4.2.7.2.686 Mike as [id number] [facility] 099 Branch 2022-08-03 2022-08-05 [facility] [id number] Univers 13:48:00 16:50:00 HECTOR mi [facility] 2022-08-03 2022-08-05 Emergency Chepe Camejo [facility] 1.2.840.1 [id number] Univers 13:48:00 16:50:00 Hector Coffman 350.1.13.10 ity of [place] 4.2.7.2.686 [facility] [facility] [id number] [place] [id number] [place] 2022-07-29 2022-07-30 Emergency X [facility] ERT [id number] Univers 22:31:00 03:45:00 [facility] 2022-07-29 2022-07-30 Emergency [facility] [id number] Univers 22:31:00 03:45:00 Njadalid Ronaldo [facility] 350.1.13.10 ity of [place] 4.2.7.2.686 [facility] [facility] [id number] [place] [id number] [place] 2022-01-22 2022-02-01 Inpatient U [facility] BONITA [id number] Univers 12:31:00 16:22:00 KRYSTAL mi [facility] 2022-01-22 2022-02-01 [facility] Chiqui Rosen 1.2.84 0.114 [id number] Univers 12:31:00 16:22:00 Encounter Krystal Truong 350.1.1 3.10 ity [facility] 4.2.7.2.686 Imke as [id number] [facility] 095 [place] 2022-02-01 2022-02-01 Telephone [facility] [id number] [id number] Univers 00:00:00 00:00:00 Krystal PRIMARY 350.1.13.10 it y of Roman [facility] 4.2.7.2.[place] [id number] [place] dical 388 Branch 2022-02-01 2022-02-01 Telephone [facility] [id number] [id number] Univers 00:00:00 00:00:00 Marybeth PRIMARY 350.1.13.10 it y of [place].2.[place] [id number] [place] dical 388 Branch 2022-01-30 2022-01-30 Telephone Ezio [facility] 1.2.584.912 [id number] Univers 00:00:00 00:00:00 Lico PRIMARY 350.1.13.10 it y of [place] 4[place]2.[place].2.[place] [id number] N[place] dical 044 Branch 2022-01-23 2022-01-23 Transition LES Espinoza 1.2.840.114 [id number] Univers 00:00:00 00:00:00 of Care Bel MUKHERJEE 350.1.13.10 i ty of [place] [id number] [facility] 403 Branch 2022-01-16 2022-01-20 Inpatient X DAVI [facility] [id number] Univers 15:22:00 11:35:00 RODRICK ity of [facility] 2022-01-16 2022-01-20 [facility] Norberto Trujillo [facility] 1.2.8 40.114 [id number] Univers 15:22:00 11:35:00 Encounter Rodrick Tomlinson HARVEST 350.1.13.10 [place]y of [place] [id number] [facility] 080 Branch 2022-01-16 2022-01-16 Orders Doctor EDELMIRA 1.2.840.114 [id number] Univers 00:00:00 00:00:00 Only Unassigned, TRAMAINE 350.1.13.10 ity of [place] [facility] 4.2.7.2.686 Mike as [id number] [facility] 009 Branch 2021-03-01 2021-03-01 Orders Doctor EDELMIRA 1.2.840.114 [id number] Univers 00:00:00 00:00:00 Only Unassigned, TRAMAINE 350.1.13.10 ity of [facility] [facility] 4.2.7.2.686 Mike as [id number] [facility] 009 Branch 2021-02-16 2021-02-16 Orders Doctor EDELMIRA 1.2.840.114 [id number] Univers 00:00:00 00:00:00 Only Unassigned, TRAMAINE 350.1.13.10 ity of [facility] 4.2.7.2.686 Mike as [id number] [facility] 009 Branch 2020-11-22 2020-11-22 Orders Doctor EDELMIRA 1.2.840.114 [id number] 00:00:00 00:00:00 Only Unassigned, TRAMAINE 350.1.13.10 [facility] 4.2.7.2.686 [id number] 009 2020-11-22 2020-11-22 Orders Doctor EDELMIRA 1.2.840.114 [id number] Univers 00:00:00 00:00:00 Only Unassigned, TRAMAINE 350.1.13.10 ity of [facility] [facility] 4.2.7.2.686 Mike as [id number] [facility] 009 Branch 2020-11-11 2020-11-11 Transition Les Espinoza 1.2.840.114 [id number] 00:00:00 00:00:00 of Care [place] 350.1.13.10 [place] 4.2.7.2.686 [id number] [facility] 2020-11-11 2020-11-11 Transition Les Espinoza 1.2.840.114 [id number] Univers 00:00:00 00:00:00 of Care Bel M Mayur 350.1.13.10 i ty of [place] [id number] [facility] 403 Branch 2020-10-11 2020-11-10 Inpatient X FRANCES TERRY [facility] JOSIE [id number] Univers 17:18:00 13:18:00 ity of [facility] 2020-10-11 2020-11-10 [facility] James Allen 1.2.840.1 [id number] Univers 17:18:00 13:18:00 [facility] Jhonatan Lmobardo 350.1.13.10 ity of [facility] 4.2.7.2.686 [place] Jhonatan Lombardo [id number] James Lazo 098 Branch Eri Otoole Xiang 2020-06-16 2020-06-22 Inpatient SYDNIE [facility] [id number] [place] 00:00:00 00:00:00 BHAGWAT 844 Method i 2020-04-04 2020-04-04 Emergency [facility] 1.2.840.114 [id number] Univers 09:38:30 10:05:00 Chiqui Monterroso 350.1.13.10 ity of [place] 4.2.7.2.686 [facility] [id number] [address] 2020-04-04 2020-04-04 Emergency X [facility] ERT [id number] Univers 09:31:00 09:31:00 ity of [facility] 2020-04-04 2020-04-04 Orders Doctor HICKEY 1.2.840.114 [id number] Univers 00:00:00 00:00:00 Only Unassigned, TRAMAINE 350.1.13.10 ity of [place] [facility] 4.2.7.2.686 Mike as [id number] [facility] 009 [place] 2019-12-25 2019-12-25 Nurse Rosaura Dunlap 1.2.840.114 [id number] Univers 00:00:00 00:00:00 Triage TRAMAINE 350.1.13.10 it y of [facility] 4.2.7.2.686 Mike as [id number] [facility] 019 [place] 2019-06-08 2019-06-08 Emergency [facility] 1.2.840.114 [id number] Univers 09:51:07 12:07:00 Chiqui Monterroso 350.1.13.10 ity of [place] 4.2.7.2.686 [facility] [id number] [address] 2019-06-08 2019-06-08 Emergency X [facility] ERT [id number] Univers 09:51:07 12:07:00 CHIQUI ity of [facility] 2019-06-08 2019-06-08 Orders Doctor HICKEY 1.2.840.114 [id number] Univers 00:00:00 00:00:00 Only Unassigned, TRAMAINE 350.1.13.10 ity of [place] [facility] 4.2.7.2.686 Mike as [id number] [place] [address] Branch 2012-02-14 2012-02-14 Emergency nullFlavo [facility] [id number] Memoria 07:25:00 13:06:00 r Medical 00 l [facility] 2012-02-14 2012-02-14 Emergency nullFlavo [facility] [id number] Memoria 07:25:00 13:06:00 r Medical 00 l [facility] Results Test Description Test Time Test Comments Results Result Comments Source GLUCOMETER GLUCOSE- LAB USE ONLY 2022-12-06 09:16:00 Test Item Value Reference Range Interpretation Comme nts GLUCOMETER (test code = GMG) 119 mg/dL 70-100 H CLEANED METERMeter ID: [id number] tor: [id number] HANK LUCIO GLUCOMETER GLUCOSE- LAB USE [id number] 09:15:00 Test Item Value Reference Range Interpretation Comments GLUCOMETER (test code = 102 mg/dL 70-100 H Mete r ID: GMG) [id number] tor: [id number] JOURNEY [address] [facility] GLUCOMETER GLUCOSE- LAB USE [id number] 09:14:00 Test Item Value Reference Range Interpretation Comments GLUCOMETER (test code = 173 mg/dL 70-100 H Mete r ID: GMG) [id number] tor: [id number] JOURNEY W [facility] GLUCOMETER GLUCOSE- LAB USE [id number] 09:13:00 Test Item Value Reference Range Interpretation Comments GLUCOMETER (test code = 94 mg/dL 70-100 Mete r ID: GMG) [id number] tor: [id number] JOURNEY W [facility] GLUCOMETER GLUCOSE- LAB USE [id number] 09:13:00 Test Item Value Reference Range Interpretation Comments GLUCOMETER (test code = 95 mg/dL 70-100 Mete r ID: GMG) [id number] tor: [id number] FREEMAN MEHUL MON CBC WITH MORPHOLOGY *WW*2022-12-06 08:19:00 Test [...] 8.7 mg/dL 8.3-10.6 09D) CBC (INCLUDES AUTOMATED DIFFERENTIAL)*[id number] 06:32:00 Test Item Value Reference Range Interpretation [...] code = NORMAL WRBCMOR) BASIC METABOLIC PANEL *WW*2022-12-04 13:55:00 Test Item Value Reference Range Interpretation [...] mg/dL 8.3-10.6 09D) GLUCOMETER GLUCOSE- LAB USE [id number] 12:08:00 Test Item Value Reference Range Interpretation Comments GLUCOMETER (test code = 75 mg/dL 70-100 Mete r ID: GMG) [id number] tor: [id number] JOURCLAIR Romano [facility] SARS-CoV (RAPID ANTIGEN) WW2022-12-04 08:28:00 Test Item Value Reference Range Interpretation Comments SARS-CoV (ANTIGEN) NEGATIVE NEGATIVE (test code = COVAG) COVID AG (test This test has been code = COVAGC) marketed under the FDA Emergency Use Authorization (EUA) to meet challenges of the COVID-19 pandemic. The validation standards normally enforced by the FDA and the [employer] of the [place] [employer] (CAP) are more stringent than those required for this test. Therefore, the result should be interpreted with caution and close attention to other clinical and epidemiological data CT HEAD W/O CONTRAST *WW*2022-12-04 05:02:26 [facility] 1955 Sex: FExamination: Non contrast head CTIndication: Unspecified fallComparison: NoneLocation: R66Dosntzneg: Multiple CT images of the brain were [...] by: Tonja García MD 12/04/2022 5:02 AM 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 [id number] WITH MICRO *WW*2022-12-04 04:19:00 Test Item Value [...] the FDA and the College of the [place] [employer] (CAP) are more stringent than those [...] 26 IU/L 10-49 PRO TIME AND PTT *WW*2022-12-04 03:25:00 Test Item Value Reference Range Interpretation [...] XR HIP RIGHT UNILATERAL 2 VIEWS2022-12-04 03:21:21 [facility] 1955 Sex: FHISTORY: Right hip painLocation: C3 FINDINGS:Images of the pelvis and right hip are provided.Mid femoral neck fracture is demonstrated with femoral shortening and slight varus angulation.IMPRESSION:1. Femoral neck fracture with femoral shortening. No dislocation.Electronically signed by: Edilberto Mayorga MD 12/04/2022 3:21AM [facility] CHEST 1 VIEW PORTABLE 2022-12-04 03:20:41 [facility] : 1955 Sex: FHISTORY: Presurgery evaluationLocation: C3 COMPARISON:NoneFINDINGS:Lung volumes are increased.Heart size and vascularity are within normal limits. The lungs are clear of focal consolidation. No effusion, pneumothorax,or acute osseous abnormality.IMPRESSION:1. Increased lung volumes. No focal consolidation.Electronically signed by: Edilberto Mayorga MD 12/04/2022 3:20 AM 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 (INCLUDES AUTOMATED DIFFERENTIAL)*[id number] 03:15:00 Test Item Value Reference Range Interpretation [...] Interpretation Comments POCT GLU (test code = 2085551480) 172 mg/dL 70-110 H Lab Interpretation (test code = Abnormal 68056-8) [facility]22-[facility]-22 02:30:58 Test Item Value Reference Range Interpretation Comments POCT GLU (test code = 6777501349) 108 mg/dL 70-110 Lab Interpretation (test code = Normal 54546-4) [facility] METABOLIC PANEL (NA, K, CL, CO2, GLUCOSE, BUN, CREATININE, CA)2022-08-21 10:33:57 Test Item Value Reference Range Interpretation Comments NA (test code = 130 mmol/L 135-145 L 7959780742) K (test code = 4.6 mmol/L 3.5-5.0 Slight 0436374050) hemolysis CL (test code = 97 mmol/L 98-108 L 8126333271) CO2 TOTAL (test code 27 mmol/L 23-31 = 0095557050) AGAP (test code = 2-16 7296615300) BUN (test code = 7 mg/dL 7-23 Slight 8289029926) hemolysis GLUCOSE (test code = 101 mg/dL 70-110 6105733844) CREATININE (test code 0.35 mg/dL 0.50-1.04 L = 3270875408) CALCIUM (test code = 8.0 mg/dL 8.6-10.6 L 7912743246) eGFR (test code = mL/min/1.73m2 6727820121) TANESHA (test code = TANESHA) Association of [...] tests). Lab Interpretation Abnormal (test code = 13974-1) [facility] METABOLIC PANEL (NA, K, CL, CO2, GLUCOSE, BUN, CREATININE, CA)2022-08-19 19:56:03 Test Item Value Reference Range Interpretation Comments NA (test code = 131 mmol/L 135-145 L 1016222529) K (test code = 4.2 mmol/L 3.5-5.0 0940565457) CL (test code = 94 mmol/L 98-108 L 6296340208) CO2 TOTAL (test code = 29 mmol/L 23-31 0776953859) AGAP (test code = 2-16 4855188890) BUN (test code = 2 mg/dL 7-23 L 4744494151) GLUCOSE (test code = 76 mg/dL 70-110 0642602086) CREATININE (test code = 0.42 mg/dL 0.50-1.04 L 8984660109) CALCIUM (test code = 8.6 mg/dL 8.6-10.6 3198331498) eGFR (test code = mL/min/1.73m2 7521928783) TANESHA (test code = TANESHA) Association of [...] tests). Lab Interpretation Abnormal (test code = 21541-0) [facility], SERUM OR [id number] 22:18:14 Test Item Value Reference Range Interpretation Comments OSMOLALITY (test code = See_Comment L [Au tomated message] 2692-2) The system [employer] generated this result transmitted ref erence range: 278 - 30 5 mOsm/kg. The reference range was not used to int erpret this result as normal/abnormal . Lab Interpretation (test Abnormal code = 65472-2) [facility] HospitalN-TERMINAL [id number] 18:35:39 Test Item Value Reference Range Interpretation Comments NT-proBNP (test code 400 pg/mL See_Comment H [Autom ated = 5278914736) message] The system which generated this result transmitted reference range : <=125. The reference range was not used to interpret this result as normal/abnormal . TANESHA (test code = TANESHA) Biotin has been reported to cause a negative bias, interpret results relative to patient's use of biotin. Lab Interpretation Abnormal (test code = 97935-2) [facility] HospitalTROPONIN [id number] 18:35:39 Test Item Value Reference Interpretation Comments Range TROPONIN I (test 0.007 ng/mL See_Comment [Automated code = 5293172823) message] The system which generated this result [...] biotin. Lab Interpretation Normal (test code = 05624-2) [facility] HospitalAMMONIA, [id number] 18:33:53 Test Item Value Reference Range Interpretation Comments AMMONIA (test code = 0705076402) 9-33 L Lab Interpretation (test code = Abnormal 37579-5) [facility]. METABOLIC PANEL (26545)2022-08-18 18:23:42 Test Item Value Reference Range Interpretation Comments NA (test code = 125 mmol/L 135-145 L 5894820569) K (test code = 4.2 mmol/L 3.5-5.0 Slight 7866913752) hemolysis CL (test code = 91 mmol/L 98-108 L 6980921118) CO2 TOTAL (test code 28 mmol/L 23-31 = 8034971762) AGAP (test code = 2-16 8855724612) BUN (test code = 6 mg/dL 7-23 L Slight 7818795566) hemolysis GLUCOSE (test code = 96 mg/dL 70-110 8980286293) CREATININE (test code 0.38 mg/dL 0.50-1.04 L = 2037108086) TOTAL BILI (test code 0.9 mg/dL 0.1-1.1 = 7302809204) CALCIUM (test code = 8.2 mg/dL 8.6-10.6 L 2452146447) T PROTEIN (test code 6.6 g/dL 6.3-8.2 = 5922398298) ALBUMIN (test code = 4.1 g/dL 3.5-5.0 6518725808) ALK PHOS (test code = 63 U/L 34-122 Slight 6308804974) hemolysis ALTv (test code = 18 U/L 5-35 1742-6) AST(SGOT) (test code 39 U/L 13-40 Slight = 6045463521) hemolysis eGFR (test code = mL/min/1.73m2 5527202688) TANESHA (test code = TANESHA) Association of [...] tests). Lab Interpretation Abnormal (test code = 16487-3) [facility] WITH [id number] 18:15:59 Test Item Value Reference Range Interpretation [...] RDW-SD (test code = 47.1 fL 39.0-49.9 04377-6) RDW-CV (test code = 14.0 % 12.0-15.5 788-0) PLT (test code = See_Comment [Automated 777-3) message] The sy stem which generated this result transmitted reference range : 166 - 358 10*3/ ?L. The reference r irvin was not used to interpret this result as normal/abnormal . MPV (test code = 11.9 fL 9.5-12.9 22328-6) NRBC/100 WBC (test See_Comment [Automat ed code = 2906613091) message] The system which generated this result transmitted reference range : 0.0 - 10.0 /100 WBCs. The refer ence range was not u sed to interpret th is result as normal/abnormal . NRBC x10^3 (test code See_Comment [Auto mated = 0379520879) message] The s ystem which generated this result transmitted reference range : 10*3/?L. The reference range was not used to interpret this result as normal/abnormal . GRAN MAT (NEUT) % 72.3 % (test code = 770-8) IMM GRAN % (test code 0.30 % = 7871145824) LYMPH % (test code = 17.5 % 736-9) MONO % (test code = 8.8 % 5905-5) EOS % (test code = 0.3 % 713-8) BASO % (test code = 0.8 % 706-2) GRAN MAT x10^3(ANC) 2.90 10*3/uL 1.88-7.09 (test code = 8871625734) IMM GRAN x10^3 (test 0.00-0.06 code = 3939417698) LYMPH x10^3 (test code 0.70 10*3/uL 1.32-3.29 L = 731-0) MONO x10^3 (test code 0.35 10*3/uL 0.33-0.92 = 742-7) EOS x10^3 (test code = 0.03-0.39 L 711-2) BASO x10^3 (test code 0.03 10*3/uL 0.01-0.07 = 704-7) Lab Interpretation Abnormal (test code = 64616-4) [facility] HospitalGLYCOSYLATED HEMOGLOBIN (A1C)2022-08-04 04:42:34 Test Item Value Reference Range Interpretation Comments HGB A1C (test code = 5.2 % 4.0-5.7 4548-4) TANESHA (test code = TANESHA) Reference RangesNormal: <5.7%Prediabetes: 5.7 - 6.4%Diabetes: > 6.5% Lab Interpretation (test Normal code = 75427-4) [facility] HospitalHEPATIC FUNCTION PANEL (87590) (ALB,T.PRO,BILI T,BU/BC,ALT,AST,ALK PHOS)2022-08-03 20:51:17 Test Item Value Reference Range Interpretation Comments TOTAL BILI (test code = 6287138282) 0.3 mg/dL 0.1-1.1 BILI UNCON (test code = 7149216105) 0.3 mg/dL 0.1-1.1 BILI CONJ (test code = 9742083856) 0.0 mg/dL 0.0-0.3 T PROTEIN (test code = 0286326729) 6.0 g/dL 6.3-8.2 L ALBUMIN (test code = 9452981706) 4.1 g/dL 3.5-5.0 ALK PHOS (test code = 0437299049) 62 U/L 34-122 ALTv (test code = 1742-6) 16 U/L 5-35 AST(SGOT) (test code = 3014406799) 27 U/L 13-40 Lab Interpretation (test code = Abnormal 21462-9) [facility] (NA, K, CL, CO2, GLUCOSE, BUN, CREATININE, CA)2022-08-03 20:17:28 Test Item Value Reference Range Interpretation Comments NA (test code = 126 mmol/L 135-145 L 0617396838) K (test code = 3.6 mmol/L 3.5-5.0 5639814465) CL (test code = 92 mmol/L 98-108 L 8118562087) CO2 TOTAL (test code = 24 mmol/L 23-31 5521040694) AGAP (test code = 2-16 5668107866) BUN (test code = 9 mg/dL 7-23 2765207125) GLUCOSE (test code = 101 mg/dL 70-110 5055511139) CREATININE (test code = 0.52 mg/dL 0.50-1.04 4600628630) CALCIUM (test code = 8.6 mg/dL 8.6-10.6 0376510251) eGFR (test code = mL/min/1.73m2 3401398087) TANESHA (test code = TANESHA) Association of [...] tests). Lab Interpretation Abnormal (test code = 81080-9) [facility]LIPASE2022-[facility]-28 20:17:28 Test Item Value Reference Range Interpretation Comments LIPASE (test code = 6684939040) 39 U/L 0-220 Lab Interpretation (test code = Normal 27004-3) [facility] HospitalCREATINE [id number] 20:17:08 Test Item Value Reference Range Interpretation Comments CK (test code = 3447313574) 105 U/L 33-194 Lab Interpretation (test code = Normal 56335-3) [facility] WITH [id number] 19:38:44 Test Item Value Reference Range Interpretation [...] RDW-SD (test code = 42.9 fL 39.0-49.9 16160-7) RDW-CV (test code = 13.0 % 12.0-15.5 788-0) PLT (test code = See_Comment [Automated 777-3) message] The sy stem which generated this result transmitted reference range : 166 - 358 10*3/ ?L. The reference r irvin was not used to interpret this result as normal/abnormal . MPV (test code = 11.0 fL 9.5-12.9 49128-3) NRBC/100 WBC (test See_Comment [Automat ed code = 0868302320) message] The system which generated this result transmitted reference range : 0.0 - 10.0 /100 WBCs. The refer ence range was not u sed to interpret th is result as normal/abnormal . NRBC x10^3 (test code See_Comment [Auto mated = 1099818310) message] The s ystem which generated this result transmitted reference range : 10*3/?L. The reference range was not used to interpret this result as normal/abnormal . GRAN MAT (NEUT) % 78.8 % (test code = 770-8) IMM GRAN % (test code 0.60 % = 3046873890) LYMPH % (test code = 11.7 % 736-9) MONO % (test code = 8.3 % 5905-5) EOS % (test code = 0.0 % 713-8) BASO % (test code = 0.6 % 706-2) GRAN MAT x10^3(ANC) 3.99 10*3/uL 1.88-7.09 (test code = 8206023664) IMM GRAN x10^3 (test 0.03 10*3/uL 0.00-0.06 code = 9592778567) LYMPH x10^3 (test code 0.59 10*3/uL 1.32-3.29 L = 731-0) MONO x10^3 (test code 0.42 10*3/uL 0.33-0.92 = 742-7) EOS x10^3 (test code = 0.03-0.39 L 711-2) BASO x10^3 (test code 0.03 10*3/uL 0.01-0.07 = 704-7) Lab Interpretation Abnormal (test code = 97373-3) [facility]COMP[facility] METABOLIC PANEL (77748)2022-07-30 04:57:34 Test Item Value Reference Range Interpretation Comments NA (test code = 129 mmol/L 135-145 L 8046789697) K (test code = 4.1 mmol/L 3.5-5 4092961557) CL (test code = 93 mmol/L 98-108 L 6820155797) CO2 TOTAL (test code = 23 mmol/L 23-31 2209448704) AGAP (test code = 2-16 6143156586) BUN (test code = 8 mg/dL 7-23 5991666322) GLUCOSE (test code = 94 mg/dL 70-110 4459075732) CREATININE (test code = 0.48 mg/dL 0.5-1.04 L 0665672958) TOTAL BILI (test code = 0.5 mg/dL 0.1-1.1 9315100506) CALCIUM (test code = 9.2 mg/dL 8.6-10.6 6864339807) T PROTEIN (test code = 6.4 g/dL 6.3-8.2 7266881828) ALBUMIN (test code = 4.4 g/dL 3.5-5 2696681870) ALK PHOS (test code = 68 U/L 34-122 5645933325) ALTv (test code = 14 U/L 5-35 1742-6) AST(SGOT) (test code = 23 U/L 13-40 8479163937) eGFR (test code = mL/min/1.73m2 5046717493) TANESHA (test code = TANESHA) Association of [...] tests). Lab Interpretation Abnormal (test code = 62348-3) [facility] 04:56:54 Test Item Value Reference Range Interpretation Comments LIPASE (test code = 8864065435) 61 U/L 0-220 Lab Interpretation (test code = Normal 13251-4) [facility] WITH [id number] 04:44:37 Test Item Value Reference Range Interpretation [...] RDW-SD (test code = 43.8 fL 39-49.9 01205-3) RDW-CV (test code = 13.2 % 12-15.5 788-0) PLT (test code = See_Comment [Automated 777-3) message] The sy stem which generated this result transmitted reference range : 166 - 358 10*3/ ?L. The reference r irvin was not used to interpret this result as normal/abnormal . MPV (test code = 10.8 fL 9.5-12.9 53225-8) NRBC/100 WBC (test See_Comment [Automat ed code = 7051091991) message] The system which generated this result transmitted reference range : 0.0 - 10.0 /100 WBCs. The refer ence range was not u sed to interpret th is result as normal/abnormal . NRBC x10^3 (test code See_Comment [Auto mated = 6502306428) message] The s ystem which generated this result transmitted reference range : 10*3/?L. The reference range was not used to interpret this result as normal/abnormal . GRAN MAT (NEUT) % 72.5 % (test code = 770-8) IMM GRAN % (test code 0.40 % = 5707274213) LYMPH % (test code = 16.2 % 736-9) MONO % (test code = 10.3 % 5905-5) EOS % (test code = 0.0 % 713-8) BASO % (test code = 0.6 % 706-2) GRAN MAT x10^3(ANC) 3.81 10*3/uL 1.88-7.09 (test code = 2733714621) IMM GRAN x10^3 (test 0-0.06 code = 2280516710) LYMPH x10^3 (test code 0.85 10*3/uL 1.32-3.29 L = 731-0) MONO x10^3 (test code 0.54 10*3/uL 0.33-0.92 = 742-7) EOS x10^3 (test code = 0.03-0.39 L 711-2) BASO x10^3 (test code 0.03 10*3/uL 0.01-0.07 = 704-7) Lab Interpretation Abnormal (test code = 36318-3) [facility]BL[facility] [id number] 20:01:22 Test Item Value Reference Range Interpretation Comments Blood Culture-Aerobic No organisms No growth Previo us (test code = 70664-3) isolated prelim inary verified result was Culture [...] Culture-Anaerobic isolated preliminar y (test code = 42951-7) verifi ed result was Culture In Progress [...] CDT Lab Interpretation Normal (test code = 44728-0) [facility] [id number] 20:01:22 Test Item Value Reference Range Interpretation Comments Blood Culture-Aerobic No organisms No growth Previo us (test code = 24659-9) isolated prelim inary verified result was Culture [...] Culture-Anaerobic isolated preliminar y (test code = 64828-6) verifi ed result was Culture In Progress [...] CDT Lab Interpretation Normal (test code = 93040-5) [facility] HospitalVITAMIN B6, [id number] 12:40:21 Test Item Value Reference Range Interpretation Comments VIT B6 (test code = 16.8 nmol/L 20.0-125.0 L INTERPRE TIVE 06735-8) INFORMATION: Vi tamin B6 (Pyridoxal 5-Phosphate) Pyridoxal 5'-phosphate me asured in a specimen collected follo wing an 8-hour or overnight fast accurately josh cates vitamin B6 nutritional sta tus. Non-fasting spe cimen concentration reflects recent vitamin intake. This test was develo ped and its perform ance characteristics determined by [facility]. I t has not been cleare d or approved by the [place] Food and Drug Administration. This test was perfor med in a CLIA certifie d laboratory and is intended for cl inical purposes.Perfor med By: [employer] [place] [address] [id number] Director: Sherry Murillo MD Lab Interpretation Abnormal (test code = 07803-0) [facility] WITH [id number] 11:34:15 Test Item Value Reference Range Interpretation [...] RDW-SD (test code = 46.2 fL 39.0-49.9 76227-8) RDW-CV (test code = 13.5 % 12.0-15.5 788-0) PLT (test code = See_Comment [Automated 777-3) message] The sy stem which generated this result transmitted reference range : 166 - 358 10*3/ ?L. The reference r irvin was not used to interpret this result as normal/abnormal . MPV (test code = 12.2 fL 9.5-12.9 24693-9) NRBC/100 WBC (test See_Comment [Automat ed code = 9955224446) message] The system which generated this result transmitted reference range : 0.0 - 10.0 /100 WBCs. The refer ence range was not u sed to interpret th is result as normal/abnormal . NRBC x10^3 (test code <0.01 See_Comment [Auto mated = 0830316709) message] The s ystem which generated this result transmitted reference range : 10*3/?L. The reference range was not used to interpret this result as normal/abnormal . GRAN MAT (NEUT) % 48.1 % (test code = 770-8) IMM GRAN % (test code 0.30 % = 6172129812) LYMPH % (test code = 30.1 % 736-9) MONO % (test code = 14.9 % 5905-5) EOS % (test code = 5.0 % 713-8) BASO % (test code = 1.6 % 706-2) GRAN MAT x10^3(ANC) 1.55 10*3/uL 1.88-7.09 L (test code = 8279588537) IMM GRAN x10^3 (test <0.03 0.00-0.06 code = 4349286743) LYMPH x10^3 (test code 0.97 10*3/uL 1.32-3.29 L = 731-0) MONO x10^3 (test code 0.48 10*3/uL 0.33-0.92 = 742-7) EOS x10^3 (test code = 0.16 10*3/uL 0.03-0.39 711-2) BASO x10^3 (test code 0.05 10*3/uL 0.01-0.07 = 704-7) Lab Interpretation Abnormal (test code = 06532-4) [facility]2022-[facility] 11:25:38 Test Item Value Reference Range Interpretation Comments MAGNESIUM (test code = 4445769761) 1.8 mg/dL 1.7-2.4 Lab Interpretation (test code = Normal 89662-4) [facility] (NA, K, CL, CO2, GLUCOSE, BUN, CREATININE, CA)2022-01-29 11:25:32 Test Item Value Reference Range Interpretation Comments NA (test code = 138 mmol/L 135-145 3344266567) K (test code = 3.3 mmol/L 3.5-5.0 L 4561489747) CL (test code = 104 mmol/L 98-108 1049127459) CO2 TOTAL (test code = 30 mmol/L 23-31 9697397971) AGAP (test code = 2-16 2262723437) BUN (test code = 6 mg/dL 7-23 L 8869731996) GLUCOSE (test code = 89 mg/dL 70-110 0062327530) CREATININE (test code = 0.49 mg/dL 0.50-1.04 L 0533002432) CALCIUM (test code = 8.6 mg/dL 8.6-10.6 5473119276) eGFR (test code = mL/min/1.73m2 0575296731) TANESHA (test code = TANESHA) Association of [...] tests). Lab Interpretation Abnormal (test code = 01535-7) [facility], [id number] 17:02:55 Test Item Value Reference Range Interpretation [...] its performance wen racteristics determined by [facility]. I t has not been cleared or approved by the [place] Food and Drug Administration. This test was performed i n a CLIA certified labor atory and is intended for cl inical purposes.Perfor med By: [employer] [address] [place], [place] [address]Imnomlryys Director: Sherry Murillo MD [facility] HospitalCOPPER, [id number] 17:02:54 Test Item Value Reference Range Interpretation [...] is intended for clinical purposes.Perfor med By: [employer] [facility] [address] [place], [place] [address]A aboratory Director: Sherry Murillo MD [facility] HospitalVITAMIN B1 (THIAMINE), WHOLE [id number] 16:54:01 Test Item Value Reference Range Interpretation Comments Vitamin B1, Whole 142 nmol/L 70-180 INTERPRETI VE INFORMATION: Blood (test code = Vitamin B 1, Whole Blood 83453-5) This assay jessica ures the concentration o f thiamine diphosphate (TD P), the primary active form of vitamin B1. David roximately 90 percent of v itamin B1 present in whol e blood is TDP. Thiamine a nd thiamine monoph osphate, which comprise the remaining 10 pe rcent, are not measured. T his test was developed a nd its performance characteristics determined by [facility]. I t has not been cleared or approved by the [place] Food and Drug Administration. This test was performed i n a CLIA certified labor atory and is intended for clinical purposes.Perfor med By: [employer] [address] [place], [place] [address]M aboratory Director: Sherry Murillo MD [facility] HospitalBASIC [facility]ABOLIC PANEL (NA, K, CL, CO2, GLUCOSE, BUN, CREATININE, CA)2022-01-27 11:09:42 Test Item Value Reference Range Interpretation Comments NA (test code = 136 mmol/L 135-145 3069761755) K (test code = 3.9 mmol/L 3.5-5.0 Slight 6676190570) hemolysis CL (test code = 103 mmol/L 98-108 7189228238) CO2 TOTAL (test code 28 mmol/L 23-31 = 1884539262) AGAP (test code = 2-16 8030501867) BUN (test code = 12 mg/dL 7-23 Slight 3296991142) hemolysis GLUCOSE (test code = 94 mg/dL 70-110 7186421151) CREATININE (test code 0.40 mg/dL 0.50-1.04 L = 8821527826) CALCIUM (test code = 8.3 mg/dL 8.6-10.6 L 8051288607) eGFR (test code = mL/min/1.73m2 5938743804) TANESHA (test code = TANESHA) Association of [...] tests). Lab Interpretation Abnormal (test code = 96816-1) [facility]2022-04-23 11:09:42 Test Item Value Reference Range Interpretation Comments MAGNESIUM (test code = 1694631852) 1.9 mg/dL 1.7-2.4 Lab Interpretation (test code = Normal 33960-1) [facility] WITH [id number] 10:50:15 Test Item Value Reference Range Interpretation Comments WBC (test code = See_Comment [Automated 0690-2) message] The sy stem which generated this [...] RDW-SD (test code = 47.3 fL 39.0-49.9 25241-9) RDW-CV (test code = 13.6 % 12.0-15.5 788-0) PLT (test code = See_Comment [Automated 777-3) message] The sy stem which generated this result transmitted reference range : 166 - 358 10*3/ ?L. The reference r irvin was not used to interpret this result as normal/abnormal . MPV (test code = 11.9 fL 9.5-12.9 76978-2) NRBC/100 WBC (test See_Comment [Automat ed code = 3901906523) message] The system which generated this result transmitted reference range : 0.0 - 10.0 /100 WBCs. The refer ence range was not u sed to interpret th is result as normal/abnormal . NRBC x10^3 (test code <0.01 See_Comment [Auto mated = 0022916862) message] The s ystem which generated this result transmitted reference range : 10*3/?L. The reference range was not used to interpret this result as normal/abnormal . GRAN MAT (NEUT) % 75.3 % (test code = 770-8) IMM GRAN % (test code 0.40 % = 2295356924) LYMPH % (test code = 12.2 % 736-9) MONO % (test code = 9.0 % 5905-5) EOS % (test code = 2.4 % 713-8) BASO % (test code = 0.7 % 706-2) GRAN MAT x10^3(ANC) 6.31 10*3/uL 1.88-7.09 (test code = 2147547415) IMM GRAN x10^3 (test 0.03 10*3/uL 0.00-0.06 code = 1512951134) LYMPH x10^3 (test code 1.02 10*3/uL 1.32-3.29 L = 731-0) MONO x10^3 (test code 0.75 10*3/uL 0.33-0.92 = 742-7) EOS x10^3 (test code = 0.20 10*3/uL 0.03-0.39 711-2) BASO x10^3 (test code 0.06 10*3/uL 0.01-0.07 = 704-7) Lab Interpretation Abnormal (test code = 78476-5) [facility] CULTURE [id number] 19:44:37 Test Item Value Reference Range Interpretation Comments Blood Culture Staphylococcus For suscepti bility Workup (test epidermidis results, refer to code = 600-7) culture # - [id number] anism identified by Phil Mitchell is a corrected resul t. ?Previous resul t was Coagulase negat annetta Staphylococcus on 01/24/2022 at 14 58 CDT Gram stain Isolated from aerobic (test code = bottle Gram positive 664-3) cocci [facility] Culture - Peripheral # [id number] 14:02:36 Test Item Value Reference Range Interpretation Comments Blood Culture-Aerobic No organisms No growth Previo us (test code = 75065-6) isolated prelim inary verified result was Culture In Progress on 01/22/2022 at 17 01 CDTPrevious preliminary verified result was No growth a t 24 hours on 01/24/2022 at 10 53 CDT Blood Culture positive. No growth AA Previous Culture-Anaerobic See Blood Culture preli minary (test code = 60981-8) Workup for verifi ed result additional was Culture In information. Progress on 01/22/2022 at 17 01 CDTPrevious preliminary verified result was No growth a t 24 hours on 01/23/2022 at 14 01 CDT Lab Interpretation Abnormal (test code = 45355-8) [facility]2022-[facility]-21 15:05:49 Test Item Value Reference Range Interpretation Comments CERULO (test code = 5886920965) 37 mg/dL 25-63 Lab Interpretation (test code = Normal 47888-0) [facility] (NA, K, CL, CO2, GLUCOSE, BUN, CREATININE, CA)2022-01-25 09:07:05 Test Item Value Reference Range Interpretation Comments NA (test code = 135 mmol/L 135-145 2236108672) K (test code = 4.1 mmol/L 3.5-5.0 4367865121) CL (test code = 104 mmol/L 98-108 3125854244) CO2 TOTAL (test code = 30 mmol/L 23-31 6172200017) AGAP (test code = 2-16 L 3229753423) BUN (test code = 12 mg/dL 7-23 4179573427) GLUCOSE (test code = 86 mg/dL 70-110 6441533717) CREATININE (test code = 0.45 mg/dL 0.50-1.04 L 6891624730) CALCIUM (test code = 8.5 mg/dL 8.6-10.6 L 5817918610) eGFR (test code = mL/min/1.73m2 8529083162) TANESHA (test code = TANESHA) Association of [...] tests). Lab Interpretation Abnormal (test code = 75625-4) [facility] Test Item Value Reference Range Interpretation Comments MAGNESIUM (test code = 4922661609) 2.0 mg/dL 1.7-2.4 Lab Interpretation (test code = Normal 47026-1) [facility] [id number] 01:27:16 Test Item Value Reference Range Interpretation Comments VIT B12 (test code = 497 pg/mL 240-930 [id number]) TANESHA (test code = TANESHA) Biotin has been reported to cause a positive bias, interpret results relative to patient's use of biotin. Lab Interpretation (test Normal code = 57720-9) [facility] Test Item Value Reference Range Interpretation Comments FOLATE SER (test code = 8123714407) 8.5 ng/mL 3.0-20.0 Lab Interpretation (test code = Normal 21364-8) [facility] # 19:58:22 Test Item Value Reference Range Interpretation Comments Blood Culture-Aerobic Culture positive. No growth AA P revious (test code = 57586-5) See Blood Culture p reliminary Workup for verified result additional was Culture In information. Progress on 01/22/2022 at 17 01 CDT Blood No organisms No growth Previous Culture-Anaerobic isolated preliminar y (test code = 94566-1) verifi ed result was Culture In Progress on 01/22/2022 at 17 01 CDT Lab Interpretation Abnormal (test code = 59718-5) [facility] [id number] 10:29:00 Test Item Value Reference Range Interpretation [...] RDW-SD (test code = 46.2 fL 39.0-49.9 64824-8) RDW-CV (test code = 13.2 % 12.0-15.5 788-0) PLT (test code = See_Comment [Automated 777-3) message] The sy stem which generated this result transmitted reference range : 166 - 358 10*3/ ?L. The reference r irvin was not used to interpret this result as normal/abnormal . MPV (test code = 11.7 fL 9.5-12.9 23761-9) NRBC/100 WBC (test See_Comment [Automat ed code = 3069186649) message] The system which generated this result transmitted reference range : 0.0 - 10.0 /100 WBCs. The refer ence range was not u sed to interpret th is result as normal/abnormal . NRBC x10^3 (test code <0.01 See_Comment [Auto mated = 1955197888) message] The s ystem which generated this result transmitted reference range : 10*3/?L. The reference range was not used to interpret this result as normal/abnormal . GRAN MAT (NEUT) % 43.0 % (test code = 770-8) IMM GRAN % (test code 0.30 % = 7772946386) LYMPH % (test code = 33.3 % 736-9) MONO % (test code = 10.5 % 5905-5) EOS % (test code = 11.4 % 713-8) BASO % (test code = 1.5 % 706-2) GRAN MAT x10^3(ANC) 1.43 10*3/uL 1.88-7.09 L (test code = 7183978899) IMM GRAN x10^3 (test <0.03 0.00-0.06 code = 5370395108) LYMPH x10^3 (test code 1.11 10*3/uL 1.32-3.29 L = 731-0) MONO x10^3 (test code 0.35 10*3/uL 0.33-0.92 = 742-7) EOS x10^3 (test code = 0.38 10*3/uL 0.03-0.39 711-2) BASO x10^3 (test code 0.05 10*3/uL 0.01-0.07 = 704-7) Lab Interpretation Abnormal (test code = 01356-3) [facility] METABOLIC PANEL (NA, K, CL, CO2, GLUCOSE, BUN, CREATININE, CA)2022-01-24 10:23:02 Test Item Value Reference Range Interpretation Comments NA (test code = 133 mmol/L 135-145 L 2597500062) K (test code = 3.2 mmol/L 3.5-5.0 L 3619079828) CL (test code = 101 mmol/L 98-108 8033785292) CO2 TOTAL (test code = 29 mmol/L 23-31 3762539407) AGAP (test code = 2-16 1762610435) BUN (test code = 8 mg/dL 7-23 0294104683) GLUCOSE (test code = 83 mg/dL 70-110 9492450514) CREATININE (test code = 0.41 mg/dL 0.50-1.04 L 5565867902) CALCIUM (test code = 8.5 mg/dL 8.6-10.6 L 1956955389) eGFR (test code = mL/min/1.73m2 9629898899) TANESHA (test code = TANESHA) Association of [...] tests). Lab Interpretation Abnormal (test code = 30071-4) [facility] 10:23:02 Test Item Value Reference Range Interpretation Comments MAGNESIUM (test code = 1412235443) 2.0 mg/dL 1.7-2.4 Lab Interpretation (test code = Normal 14407-8) [facility] POS[facility]IVE BLOOD PATHOGENS DNA [id number] 03:06:21 Test Item Value Reference Range Interpretation Comments Coagulase Negative Positive Negative, See A Staphylococcus (test Comment/Narrative code = 50655-8) TANESHA (test code = TANESHA) Coagulase negative [...] contact the Antimicrobial Stewardship Program with questions.Pager: ?[phone] Testing included eleven identification and three resistance marker targets. Lab Interpretation Abnormal (test code = 55467-2) [facility] HospitalSEDIMENTATION [id number] 03:34:51 Test Item Value Reference Range Interpretation Comments ESR (test code = See_Comment [Automated message] 3131299244) The system [employer] generated this result transmitted ref erence range: 0 - 20 m m/HR. The reference r irvin was not used to interpret this result as normal/abnor mal. Lab Interpretation (test Normal code = 56968-4) [facility]TROP[facility] [id number] 23:55:36 Test Item Value Reference Interpretation Comments Range TROPONIN I (test 0.003 ng/mL See_Comment [Automated code = 6098331819) message] The system which generated this result [...] biotin. Lab Interpretation Normal (test code = 74793-3) [facility] WITH [id number] 19:21:01 Test Item Value Reference Range Interpretation [...] RDW-SD (test code = 47.9 fL 39.0-49.9 06341-5) RDW-CV (test code = 13.5 % 12.0-15.5 788-0) PLT (test code = See_Comment [Automated 777-3) message] The sy stem which generated this result transmitted reference range : 166 - 358 10*3/ ?L. The reference r irvin was not used to interpret this result as normal/abnormal . MPV (test code = 12.5 fL 9.5-12.9 72698-1) NRBC/100 WBC (test See_Comment [Automat ed code = 0082659855) message] The system which generated this result transmitted reference range : 0.0 - 10.0 /100 WBCs. The refer ence range was not u sed to interpret th is result as normal/abnormal . NRBC x10^3 (test code <0.01 See_Comment [Auto mated = 6406560503) message] The s ystem which generated this result transmitted reference range : 10*3/?L. The reference range was not used to interpret this result as normal/abnormal . GRAN MAT (NEUT) % 54.8 % (test code = 770-8) IMM GRAN % (test code 0.50 % = 5445038800) LYMPH % (test code = 28.8 % 736-9) MONO % (test code = 10.7 % 5905-5) EOS % (test code = 4.1 % 713-8) BASO % (test code = 1.1 % 706-2) GRAN MAT x10^3(ANC) 1.99 10*3/uL 1.88-7.09 (test code = 9985855653) IMM GRAN x10^3 (test <0.03 0.00-0.06 code = 6814228258) LYMPH x10^3 (test code 1.05 10*3/uL 1.32-3.29 L = 731-0) MONO x10^3 (test code 0.39 10*3/uL 0.33-0.92 = 742-7) EOS x10^3 (test code = 0.15 10*3/uL 0.03-0.39 711-2) BASO x10^3 (test code 0.04 10*3/uL 0.01-0.07 = 704-7) Lab Interpretation Abnormal (test code = 68433-6) [facility] ([id number])2022-01-22 18:52:48 Test Item Value Reference Range Interpretation Comments NA (test code = 138 mmol/L 135-145 8530967351) K (test code = 4.0 mmol/L 3.5-5.0 9142814564) CL (test code = 100 mmol/L 98-108 7029796377) CO2 TOTAL (test code = 31 mmol/L 23-31 6127971069) AGAP (test code = 2-16 2793768668) BUN (test code = 17 mg/dL 7-23 8846813523) GLUCOSE (test code = 96 mg/dL 70-110 7819109134) CREATININE (test code = 0.43 mg/dL 0.50-1.04 L 4429269024) TOTAL BILI (test code = 0.4 mg/dL 0.1-1.0 6396252196) CALCIUM (test code = 8.7 mg/dL 8.6-10.6 5979770687) T PROTEIN (test code = 6.6 g/dL 6.3-8.2 3834338442) ALBUMIN (test code = 4.4 g/dL 3.5-5.0 7510105076) ALK PHOS (test code = 77 U/L 34-122 7600598705) ALTv (test code = 17 U/L 5-35 1742-6) AST(SGOT) (test code = 42 U/L 13-40 H 9569967213) eGFR (test code = mL/min/1.73m2 0792229621) TANESHA (test code = TANESHA) Association of [...] tests). Lab Interpretation Abnormal (test code = 61900-6) [facility]20[facility]-18 18:52:48 Test Item Value Reference Range Interpretation Comments MAGNESIUM (test code = 2845686699) 2.0 mg/dL 1.7-2.4 Lab Interpretation (test code = Normal 55997-0) [facility] WITH [id number] 14:02:35 Test Item Value Reference Range Interpretation [...] RDW-SD (test code = 46.5 fL 39.0-49.9 50263-4) RDW-CV (test code = 13.3 % 12.0-15.5 788-0) PLT (test code = See_Comment [Automated 777-3) message] The sy stem which generated this result transmitted reference range : 166 - 358 10*3/ ?L. The reference r irvin was not used to interpret this result as normal/abnormal . MPV (test code = 12.3 fL 9.5-12.9 90387-9) NRBC/100 WBC (test See_Comment [Automat ed code = 1508685587) message] The system which generated this result transmitted reference range : 0.0 - 10.0 /100 WBCs. The refer ence range was not u sed to interpret th is result as normal/abnormal . NRBC x10^3 (test code <0.01 See_Comment [Auto mated = 2558089629) message] The s ystem which generated this result transmitted reference range : 10*3/?L. The reference range was not used to interpret this result as normal/abnormal . GRAN MAT (NEUT) % 39.0 % (test code = 770-8) IMM GRAN % (test code 0.30 % = 9523965873) LYMPH % (test code = 37.7 % 736-9) MONO % (test code = 11.2 % 5905-5) EOS % (test code = 10.7 % 713-8) BASO % (test code = 1.1 % 706-2) GRAN MAT x10^3(ANC) 1.43 10*3/uL 1.88-7.09 L (test code = 4436745670) IMM GRAN x10^3 (test <0.03 0.00-0.06 code = 8991391180) LYMPH x10^3 (test code 1.38 10*3/uL 1.32-3.29 = 731-0) MONO x10^3 (test code 0.41 10*3/uL 0.33-0.92 = 742-7) EOS x10^3 (test code = 0.39 10*3/uL 0.03-0.39 711-2) BASO x10^3 (test code 0.04 10*3/uL 0.01-0.07 = 704-7) Lab Interpretation Abnormal (test code = 59011-3) [facility] ([id number])2022-01-19 12:13:22 Test Item Value Reference Range Interpretation Comments NA (test code = 133 mmol/L 135-145 L 0367143935) K (test code = 3.8 mmol/L 3.5-5.0 9391138479) CL (test code = 99 mmol/L 98-108 1411190752) CO2 TOTAL (test code = 25 mmol/L 23-31 5669979029) AGAP (test code = 2-16 0179749254) BUN (test code = 9 mg/dL 7-23 6611531323) GLUCOSE (test code = 82 mg/dL 70-110 9214991826) CREATININE (test code = 0.46 mg/dL 0.50-1.04 L 1885646980) TOTAL BILI (test code = 0.8 mg/dL 0.1-1.1 4908788898) CALCIUM (test code = 8.5 mg/dL 8.6-10.6 L 6253491137) T PROTEIN (test code = 6.3 g/dL 6.3-8.2 0559931888) ALBUMIN (test code = 3.8 g/dL 3.5-5.0 0077656795) ALK PHOS (test code = 71 U/L 34-122 7369062916) ALTv (test code = 13 U/L 5-35 1742-6) AST(SGOT) (test code = 34 U/L 13-40 1096896221) eGFR (test code = mL/min/1.73m2 3731924316) TANESHA (test code = TANESHA) Association of [...] tests). Lab Interpretation Abnormal (test code = 07896-8) [facility] OR FIDE ONLY - [id number] 06:44:05 Test Item Value Reference Range Interpretation Comments RPR (Qualitative) (test code = Nonreactive Nonreactive 84265-5) Lab Interpretation (test code = Normal 08533-8) [facility] OR FIDE ONLY - [id number] 06:43:50 Test Item Value Reference Range Interpretation Comments RPR (Qualitative) (test code = Nonreactive Nonreactive 80199-3) Lab Interpretation (test code = Normal 64015-4) [facility] GLUCOSE (AUTOMATED)2022-01-17 22:09:50 Test Item Value Reference Range Interpretation Comments POCT GLU (test code = 6425478501) 141 mg/dL 70-110 H Lab Interpretation (test code = Abnormal 29224-1) [facility] 19:07:46 Test Item Value Reference Range Interpretation Comments FOLATE SER (test code = 13.0 ng/mL 3.0-20.0 Slig ht hemolysis 1846682434) Lab Interpretation (test Normal code = 16275-6) [facility] GLUCOSE (AUTOMATED)2022-01-17 16:44:49 Test Item Value Reference Range Interpretation Comments POCT GLU (test code = 5333733786) 155 mg/dL 70-110 H Lab Interpretation (test code = Abnormal 58841-5) [facility]VIT[facility]IN B12, [id number] 16:23:50 Test Item Value Reference Range Interpretation Comments VIT B12 (test code = 611 pg/mL 240-930 5128809376) TANESHA (test code = TANESHA) Biotin has been reported to cause a positive bias, interpret results relative to patient's use of biotin. Lab Interpretation (test Normal code = 76696-9) [facility] GLUCOSE (AUTOMATED)2022-01-17 13:06:35 Test Item Value Reference Range Interpretation Comments POCT GLU (test code = 4257236273) 74 mg/dL 70-110 Lab Interpretation (test code = Normal 60955-6) [facility]TH[facility] STIM[facility]ATING [id number] 12:43:02 Test Item Value Reference Range Interpretation Comments TSH (test code = See_Comment Biotin has been 9844980479) reported to cau se a negative bias, interpret resul ts relative to pat ient's use of biotin. [Automated mess age] The system whic h generated this result transmitted ref erence range: 0.45 - 4 .70 mIU/L. The refe rence range was not u sed to interpret this result as normal/abnor mal. Lab Interpretation (test Normal code = 97175-4) [facility] [id number] 12:28:41 Test Item Value Reference Range Interpretation Comments FREE T4 (test code = See_Comment [Autom ated message] 6840913086) The system [employer] generated this result transmitted ref erence range: 0.78 - 2 .20 ng/dL:. The ref erence range was not u sed to interpret this result as normal/abnor mal. Lab Interpretation (test Normal code = 87530-0) [facility] with [id number] 12:25:00 Test Item Value Reference Range Interpretation Comments WBC (test code = See_Comment L [Automated 7590-2) message] The sy stem which [...] RDW-SD (test code = 46.0 fL 39.0-49.9 61076-4) RDW-CV (test code = 13.2 % 12.0-15.5 788-0) PLT (test code = See_Comment [Automated 777-3) message] The sy stem which generated this result transmitted reference range : 166 - 358 10*3/ ?L. The reference r irvin was not used to interpret this result as normal/abnormal . MPV (test code = 12.9 fL 9.5-12.9 84176-9) NRBC/100 WBC (test See_Comment [Automat ed code = 5851603747) message] The system which generated this result transmitted reference range : 0.0 - 10.0 /100 WBCs. The refer ence range was not u sed to interpret th is result as normal/abnormal . NRBC x10^3 (test code <0.01 See_Comment [Auto mated = 3757997415) message] The s ystem which generated this result transmitted reference range : 10*3/?L. The reference range was not used to interpret this result as normal/abnormal . GRAN MAT (NEUT) % 46.6 % (test code = 770-8) IMM GRAN % (test code 0.30 % = 0015993344) LYMPH % (test code = 32.0 % 736-9) MONO % (test code = 12.2 % 5905-5) EOS % (test code = 7.4 % 713-8) BASO % (test code = 1.5 % 706-2) GRAN MAT x10^3(ANC) 1.84 10*3/uL 1.88-7.09 L (test code = 2197212179) IMM GRAN x10^3 (test <0.03 0.00-0.06 code = 1471339594) LYMPH x10^3 (test code 1.26 10*3/uL 1.32-3.29 L = 731-0) MONO x10^3 (test code 0.48 10*3/uL 0.33-0.92 = 742-7) EOS x10^3 (test code = 0.29 10*3/uL 0.03-0.39 711-2) BASO x10^3 (test code 0.06 10*3/uL 0.01-0.07 = 704-7) Lab Interpretation Abnormal (test code = 74878-7) [facility] Metabolic Panel (NA, K, CL, CO2, GLUCOSE, BUN, CREATININE, CA)2022-01-17 12:18:02 Test Item Value Reference Range Interpretation Comments NA (test code = 137 mmol/L 135-145 3069888091) K (test code = 3.8 mmol/L 3.5-5.0 1971799014) CL (test code = 99 mmol/L 98-108 7733576316) CO2 TOTAL (test code = 28 mmol/L 23-31 3612611525) AGAP (test code = 2-16 6084312702) BUN (test code = 6 mg/dL 7-23 L 9986979355) GLUCOSE (test code = 68 mg/dL 70-110 L 9714445706) CREATININE (test code = 0.44 mg/dL 0.50-1.04 L 0594029710) CALCIUM (test code = 8.8 mg/dL 8.6-10.6 1731563616) eGFR (test code = mL/min/1.73m2 2221096309) TANESHA (test code = TANESHA) Association of [...] tests). Lab Interpretation Abnormal (test code = 85690-5) [facility] [id number] 12:18:02 Test Item Value Reference Range Interpretation Comments MAGNESIUM (test code = 2280955251) 1.9 mg/dL 1.7-2.4 Lab Interpretation (test code = Normal 20534-3) [facility] HospitalPhosphorus [id number] 12:04:57 Test Item Value Reference Range Interpretation Comments PHOSPHORUS (test code = 3.6 mg/dL 2.5-5.0 Slig ht hemolysis 6061277942) Lab Interpretation (test Normal code = 26428-7) [facility] [id number] 23:16:40 Test Item Value Reference Interpretation Comments Range TROPONIN I (test 0.002 ng/mL See_Comment [Automated code = 6911622914) message] The system which generated this result [...] biotin. Lab Interpretation Normal (test code = 80256-5) [facility] ([id number])2022-01-16 22:49:37 Test Item Value Reference Range Interpretation Comments NA (test code = 135 mmol/L 135-145 0901998541) K (test code = 3.8 mmol/L 3.5-5.0 0491202212) CL (test code = 98 mmol/L 98-108 1810102751) CO2 TOTAL (test code 30 mmol/L 23-31 = 2896713808) AGAP (test code = 2-16 4843386440) BUN (test code = 9 mg/dL 7-23 7591532819) GLUCOSE (test code = 92 mg/dL 70-110 9318984454) CREATININE (test code 0.54 mg/dL 0.50-1.04 = 5548187232) TOTAL BILI (test code 0.4 mg/dL 0.1-1.1 = 3197494734) CALCIUM (test code = 8.8 mg/dL 8.6-10.6 4738036665) T PROTEIN (test code 6.8 g/dL 6.3-8.2 = 3042026943) ALBUMIN (test code = 4.4 g/dL 3.5-5.0 0971510584) ALK PHOS (test code = 108 U/L 34-122 8986979464) ALTv (test code = 15 U/L 5-35 2-6) AST(SGOT) (test code 31 U/L 13-40 = 9349583227) eGFR (test code = mL/min/1.73m2 7741494029) TANEHSA (test code = TANESHA) Association of Glomerular [...] or urine or abnormalities in imaging tests). [facility] BranchPROTHROMBIN TIME / [id number] 22:02:38 Test Item Value Reference Range Interpretation [...] tions. Lab Interpretation (test Normal code = 03584-7) [facility] WITH [id number] 21:52:15 Test Item Value Reference Range Interpretation Comments WBC (test code = See_Comment L [Automated 4090-2) message] The sy stem which generated this result transmitted reference range : 4.30 - 11.10 10*3/?L. The reference range was not used to interpret this result as normal/abnormal . RBC (test code = See_Comment [Automated 019-8) message] The sy stem which [...] RDW-SD (test code = 47.3 fL 39.0-49.9 27574-3) RDW-CV (test code = 13.2 % 12.0-15.5 788-0) PLT (test code = See_Comment [Automated 777-3) message] The sy stem which generated this result transmitted reference range : 166 - 358 10*3/ ?L. The reference r irvin was not used to interpret this result as normal/abnormal . MPV (test code = 12.4 fL 9.5-12.9 59224-0) NRBC/100 WBC (test See_Comment [Automat ed code = 3673361161) message] The system which generated this result transmitted reference range : 0.0 - 10.0 /100 WBCs. The refer ence range was not u sed to interpret th is result as normal/abnormal . NRBC x10^3 (test code <0.01 See_Comment [Auto mated = 8095150849) message] The s ystem which generated this result transmitted reference range : 10*3/?L. The reference range was not used to interpret this result as normal/abnormal . GRAN MAT (NEUT) % 59.4 % (test code = 770-8) IMM GRAN % (test code 0.30 % = 4136657282) LYMPH % (test code = 25.1 % 736-9) MONO % (test code = 12.1 % 5905-5) EOS % (test code = 1.7 % 713-8) BASO % (test code = 1.4 % 706-2) GRAN MAT x10^3(ANC) 2.06 10*3/uL 1.88-7.09 (test code = 6938630397) IMM GRAN x10^3 (test <0.03 0.00-0.06 code = 7291208732) LYMPH x10^3 (test code 0.87 10*3/uL 1.32-3.29 L = 731-0) MONO x10^3 (test code 0.42 10*3/uL 0.33-0.92 = 742-7) EOS x10^3 (test code = 0.06 10*3/uL 0.03-0.39 711-2) BASO x10^3 (test code 0.05 10*3/uL 0.01-0.07 = 704-7) Lab Interpretation Abnormal (test code = 92594-8) [facility] NOW RAPID TESTING)2020-11-10 00:57:00 Test Item Value Reference Range Interpretation Comments SARS-CoV-2 Rapid ID NOW Not Detected Not Detected (test code = 35631-5) TANESHA (test code = TANESHA) ID NOW COVID-19 Assay is an isothermal nucleic acid amplification test intended for the qualitative detection of nucleic acid from SARS-CoV-2 viral RNA in nasopharyngeal (MEDICATION RECONCILIATION TECHNICIAN) specimens. It is used under Emergency Use [...] indicated. Lab Interpretation Normal (test code = 17637-6) [facility] METABOLIC PANEL (NA, K, CL, CO2, GLUCOSE, BUN, CREATININE, CA)2020-11-09 11:06:00 Test Item Value Reference Range Interpretation Comments NA (test code = 134 mmol/L 135-145 L 0726447113) K (test code = 4.2 mmol/L 3.5-5 2116789935) CL (test code = 99 mmol/L 98-108 3641716688) CO2 TOTAL (test code = 30 mmol/L 23-31 8564865882) AGAP (test code = 2-16 1520706224) BUN (test code = 11 mg/dL 7-23 7280108076) GLUCOSE (test code = 95 mg/dL 70-110 5320884248) CREATININE (test code = 0.53 mg/dL 0.5-1.04 8352567368) CALCIUM (test code = 9.6 mg/dL 8.6-10.6 6041798666) eGFR Calculation mL/min/1.73m2 (Non-) (test code = 9941341011) eGFR Calculation mL/min/1.73m2 () (test code = 5742986975) TANESHA (test code = TANESHA) Association of [...] tests). Lab Interpretation Abnormal (test code = 36769-3) [facility] WITH [id number] 10:25:00 Test Item Value Reference Range Interpretation Comments WBC (test code = See_Comment L [Automated 7490-2) message] The sy stem which generated this [...] (test code = 51.8 fL 39-49.9 H 69334-9) RDW-CV (test code = 14.9 % 12-15.5 788-0) PLT (test code = See_Comment [Automated 777-3) message] The sy stem which generated this result transmitted reference range : 166 - 358 10*3/ ?L. The reference r irvin was not used to interpret this result as normal/abnormal . MPV (test code = 11.3 fL 9.5-12.9 13248-4) NRBC/100 WBC (test See_Comment [Automat ed code = 9712932446) message] The system which generated this result transmitted reference range : 0.0 - 10.0 /100 WBCs. The refer ence range was not u sed to interpret th is result as normal/abnormal . NRBC x10^3 (test code <0.01 See_Comment [Auto mated = 3809559998) message] The s ystem which generated this result transmitted reference range : 10*3/?L. The reference range was not used to interpret this result as normal/abnormal . GRAN MAT (NEUT) % 55.7 % (test code = 770-8) IMM GRAN % (test code 0.20 % = 1247318914) LYMPH % (test code = 28.3 % 736-9) MONO % (test code = 12.6 % 5905-5) EOS % (test code = 2.0 % 713-8) BASO % (test code = 1.2 % 706-2) GRAN MAT x10^3(ANC) 2.26 10*3/uL 1.88-7.09 (test code = 7282048276) IMM GRAN x10^3 (test <0.03 0-0.06 code = 5393747452) LYMPH x10^3 (test code 1.15 10*3/uL 1.32-3.29 L = 731-0) MONO x10^3 (test code 0.51 10*3/uL 0.33-0.92 = 742-7) EOS x10^3 (test code = 0.08 10*3/uL 0.03-0.39 711-2) BASO x10^3 (test code 0.05 10*3/uL 0.01-0.07 = 704-7) Lab Interpretation Abnormal (test code = 73736-0) [facility] WITH [id number] 10:47:00 Test Item Value Reference Range Interpretation [...] (test code = 51.7 fL 39-49.9 H 10945-9) RDW-CV (test code = 14.7 % 12-15.5 788-0) PLT (test code = See_Comment [Automated 777-3) message] The sy stem which generated this result transmitted reference range : 166 - 358 10*3/ ?L. The reference r irvin was not used to interpret this result as normal/abnormal . MPV (test code = 11.0 fL 9.5-12.9 40565-0) NRBC/100 WBC (test See_Comment [Automat ed code = 0540206642) message] The system which generated this result transmitted reference range : 0.0 - 10.0 /100 WBCs. The refer ence range was not u sed to interpret th is result as normal/abnormal . NRBC x10^3 (test code <0.01 See_Comment [Auto mated = 9172454672) message] The s Errundtem which generated this result transmitted reference range : 10*3/?L. The reference range was not used to interpret this result as normal/abnormal . GRAN MAT (NEUT) % 53.7 % (test code = 770-8) IMM GRAN % (test code 0.50 % = 7917671323) LYMPH % (test code = 28.8 % 736-9) MONO % (test code = 12.9 % 5905-5) EOS % (test code = 3.0 % 713-8) BASO % (test code = 1.1 % 706-2) GRAN MAT x10^3(ANC) 1.95 10*3/uL 1.88-7.09 (test code = [id number]) IMM GRAN x10^3 (test <0.03 0-0.06 code = [id number]) LYMPH x10^3 (test code 1.05 10*3/uL 1.32-3.29 L = 731-0) MONO x10^3 (test code 0.47 10*3/uL 0.33-0.92 = 742-7) EOS x10^3 (test code = 0.11 10*3/uL 0.03-0.39 711-2) BASO x10^3 (test code 0.04 10*3/uL 0.01-0.07 = 704-7) Lab Interpretation Abnormal (test code = 86941-8) [facility] METABOLIC PANEL (NA, K, CL, CO2, GLUCOSE, BUN, CREATININE, CA)2020-11-07 10:42:00 Test Item Value Reference Range Interpretation Comments NA (test code = 134 mmol/L 135-145 L [id number]) K (test code = 4.0 mmol/L 3.5-5 7187614416) CL (test code = 99 mmol/L 98-108 3724475421) CO2 TOTAL (test code = 27 mmol/L 23-31 9523466747) AGAP (test code = 2-16 2528927966) BUN (test code = 11 mg/dL 7-23 9386211053) GLUCOSE (test code = 92 mg/dL 70-110 8658286987) CREATININE (test code = 0.49 mg/dL 0.5-1.04 L 6568962397) CALCIUM (test code = 9.2 mg/dL 8.6-10.6 4546519109) eGFR Calculation mL/min/1.73m2 (Non-) (test code = 8808830740) eGFR Calculation mL/min/1.73m2 () (test code = 6641445439) TANESHA (test code = TANESHA) Association of [...] tests). Lab Interpretation Abnormal (test code = 42688-2) [facility] WITH [id number] 11:10:00 Test Item Value Reference Range Interpretation Comments WBC (test code = See_Comment L [Automated 2190-2) message] The sy stem which generated this [...] (test code = 51.6 fL 39-49.9 H 03195-6) RDW-CV (test code = 15.0 % 12-15.5 788-0) PLT (test code = See_Comment [Automated 777-3) message] The sy stem which generated this result transmitted reference range : 166 - 358 10*3/ ?L. The reference r irvin was not used to interpret this result as normal/abnormal . MPV (test code = 11.4 fL 9.5-12.9 37820-0) NRBC/100 WBC (test See_Comment [Automat ed code = 2683574093) message] The system which generated this result transmitted reference range : 0.0 - 10.0 /100 WBCs. The refer ence range was not u sed to interpret th is result as normal/abnormal . NRBC x10^3 (test code <0.01 See_Comment [Auto mated = 3982009801) message] The s ystem which generated this result transmitted reference range : 10*3/?L. The reference range was not used to interpret this result as normal/abnormal . GRAN MAT (NEUT) % 55.9 % (test code = 770-8) IMM GRAN % (test code 0.60 % = 8226693350) LYMPH % (test code = 28.7 % 736-9) MONO % (test code = 12.4 % 5905-5) EOS % (test code = 1.5 % 713-8) BASO % (test code = 0.9 % 706-2) GRAN MAT x10^3(ANC) 1.89 10*3/uL 1.88-7.09 (test code = 6167481533) IMM GRAN x10^3 (test <0.03 0-0.06 code = 4945246927) LYMPH x10^3 (test code 0.97 10*3/uL 1.32-3.29 L = 731-0) MONO x10^3 (test code 0.42 10*3/uL 0.33-0.92 = 742-7) EOS x10^3 (test code = 0.05 10*3/uL 0.03-0.39 711-2) BASO x10^3 (test code 0.03 10*3/uL 0.01-0.07 = 704-7) TOXIC CHANGES (test Present A code = 803-7) Lab Interpretation Abnormal (test code = 89267-4) [facility] METABOLIC PANEL (NA, K, CL, CO2, GLUCOSE, BUN, CREATININE, CA)2020-11-05 10:35:00 Test Item Value Reference Range Interpretation Comments NA (test code = 133 mmol/L 135-145 L 6636619219) K (test code = 4.5 mmol/L 3.5-5 Slight 7692795652) hemolysis CL (test code = 99 mmol/L 98-108 7658590766) CO2 TOTAL (test code 29 mmol/L 23-31 = 8563423599) AGAP (test code = 2-16 6879288206) BUN (test code = 11 mg/dL 7-23 Slight 7265168978) hemolysis GLUCOSE (test code = 83 mg/dL 70-110 5644848899) CREATININE (test code 0.44 mg/dL 0.5-1.04 L = 6447514476) CALCIUM (test code = 9.0 mg/dL 8.6-10.6 4098503908) eGFR Calculation mL/min/1.73m2 (Non-) (test code = 5364755706) eGFR Calculation mL/min/1.73m2 () (test code = 4261201828) TANESHA (test code = TANESHA) Association of [...] tests). Lab Interpretation Abnormal (test code = 59589-9) [facility] (ALB,T.PRO,BILI T,BU/BC,ALT,AST,ALK PHOS)2020-11-05 10:35:00 Test Item Value Reference Range Interpretation Comments TOTAL BILI (test code = 9450045575) 0.6 mg/dL 0.1-1.1 BILI UNCON (test code = 6676150369) 0.2 mg/dL 0.1-1.1 BILI CONJ (test code = 5101544159) 0.0 mg/dL 0-0.3 T PROTEIN (test code = 2495323869) 7.3 g/dL 6.3-8.2 ALBUMIN (test code = 9669810621) 3.5 g/dL 3.5-5 ALK PHOS (test code = 6811696723) 94 U/L 34-122 ALTv (test code = 1742-6) 25 U/L 5-35 AST(SGOT) (test code = 2464145251) 48 U/L 13-40 H Lab Interpretation (test code = Abnormal 83768-9) [facility]ANTI-NUCLEAR ANTIBODY-PATHOLOGIST [id number] 04:21:00ANA - Pathologist InterpretationThe CARLOS ENRIQUE result is negative on interpretation. Norberto Pereira MD ?11/01/2020 ?10:20 PM [facility]ORATORY SERVICESUnStarr County Memorial HospitalCS [id number] 13:32:00 Test Item Value Reference Range Interpretation Comments CSF CULTURE (test No organisms isolated code = 606-4) Gram stain (test code Moderate Mononuclear = 664-3) cells [facility] CULTURE [id number] 09:01:00 Test Item Value Reference Range Interpretation Comments Blood Culture-Aerobic No organisms No growth Previo us (test code = 59472-8) isolated prelim inary verified result was Culture In Progress on 10/26/2020 at 06 01 CSTPrevious preliminary verified result was No growth a t 24 hours on 10/27/2020 at 03 01 CSTPrevious preliminary verified result was No growth a t 48 hours on 10/28/2020 at 03 01 CSTPrevious preliminary verified result was No growth a t 72 hours on 10/29/2020 at 03 01 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 Blood No organisms No growth Previous Culture-Anaerobic isolated preliminar y (test code = 27995-3) verifi ed result was Culture In Progress on 10/26/2020 at 06 01 CSTPrevious preliminary verified result was No growth a t 24 hours on 10/27/2020 at 03 01 CSTPrevious preliminary verified result was No growth a t 48 hours on 10/28/2020 at 03 01 CSTPrevious preliminary verified result was No growth a t 72 hours on 10/29/2020 at 03 01 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 Lab Interpretation Normal (test code = 39243-0) [facility] CULTURE [id number] 09:01:00 Test Item Value Reference Range Interpretation Comments Blood Culture-Aerobic No organisms No growth Previo us (test code = 20697-0) isolated prelim inary verified result was Culture In Progress on 10/26/2020 at 06 01 CSTPrevious preliminary verified result was No growth a t 24 hours on 10/27/2020 at 03 01 CSTPrevious preliminary verified result was No growth a t 48 hours on 10/28/2020 at 03 01 CSTPrevious preliminary verified result was No growth a t 72 hours on 10/29/2020 at 03 01 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 Blood No organisms No growth Previous Culture-Anaerobic isolated preliminar y (test code = 68578-2) verifi ed result was Culture In Progress on 10/26/2020 at 06 01 CSTPrevious preliminary verified result was No growth a t 24 hours on 10/27/2020 at 03 01 CSTPrevious preliminary verified result was No growth a t 48 hours on 10/28/2020 at 03 01 CSTPrevious preliminary verified result was No growth a t 72 hours on 10/29/2020 at 03 01 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 Lab Interpretation Normal (test code = 52726-7) [facility] HospitalBODY FLUID DIRECT [id number] 21:04:00 Test Item Value Reference Range Interpretation Comments BF COLOR (test code = Clear 7917917807) BF WBC Count (test See_Comment [Automat ed message] The code = 0008081686) system [facility] generated this result transmit carol reference range : 0 - 5 /?L. The reference r irvin was not used to interpr et this result as anoop l/abnormal. BF RBC Count (test See_Comment [Automat ed message] The code = 1944024236) system [facility] generated this result transmit carol reference range : /?L. The reference range was not used to interpr et this result as anoop l/abnormal. [facility] HospitalBODY FLUID MANUAL [id number] 21:04:00 Test Item Value Reference Range Interpretation Comments BF SEGS (test code = 4591729814) 1 % 0-7 BF LYMPHS (test code = 0886666157) 21 % 28-96 L MACROPHAGE (test code = 7505677122) 9 % 16-56 L #CELS CNTD (test code = 9302927348) Lab Interpretation (test code = Abnormal 56002-7) [facility] HospitalURINE [id number] 20:53:00 Test Item Value Reference Range Interpretation Comments URINE CULTURE (test >100,000 CFU/mL code = 630-4) Aerococcus urinae [facility] HospitalCEREBROSPINAL FLUID [id number] 20:33:00 Test Item Value Reference Range Interpretation Comments GLU CSF (test code = 64 mg/dL 50-80 8931642463) UNSPUN BODY FLUID Colorless COLOR (test code = 4012167194) UNSPUN BODY FLUID Clear CLARITY (test code = 5350436220) SPUN BODY FLUID COLOR Colorless (test code = 3892029583) SPUN BODY FLUID Clear CLARITY (test code = 6800905571) Sediment (test code = The sediment volume is 1323053513) <0.1 mLs of the total fluid volume of 1.0 mLs and its color is red. [facility] HospitalCEREBROSPINAL FLUID [id number] 20:33:00 Test Item Value Reference Range Interpretation Comments T. PRO CSF (test code = 53.0 mg/dL 15-45 H 1305336599) UNSPUN BODY FLUID COLOR Colorless (test code = 2884093105) UNSPUN BODY FLUID CLARITY Clear (test code = 6068145638) SPUN BODY FLUID COLOR Colorless (test code = 8980533580) SPUN BODY FLUID CLARITY Clear (test code = 9158275694) Sediment (test code = The sediment volume 8433620928) is <0.1 mLs of the total fluid volume of 1.0 mLs and its color is red. Lab Interpretation (test Abnormal code = 75090-6) [facility] HospitalMisc. Sendout- [id number] autoimmune encephalitis [id number] 18:18:00 Test Item Value Reference Range Interpretation Comments Miscellaneous Test (test See scanned report code = 9539743447) Performing Lab (test code ARUP = 6163801288) [facility] (NA, K, CL, CO2, GLUCOSE, BUN, CREATININE, CA)2020-10-27 12:54:00 Test Item Value Reference Range Interpretation Comments NA (test code = 136 mmol/L 135-145 5730466836) K (test code = 3.7 mmol/L 3.5-5 5470331612) CL (test code = 103 mmol/L 98-108 9212298570) CO2 TOTAL (test code = 27 mmol/L 23-31 1249634170) AGAP (test code = 2-16 5274015298) BUN (test code = 15 mg/dL 7-23 2615157793) GLUCOSE (test code = 86 mg/dL 70-110 0429913319) CREATININE (test code = 0.45 mg/dL 0.5-1.04 L 5697471867) CALCIUM (test code = 8.7 mg/dL 8.6-10.6 8738232162) eGFR Calculation mL/min/1.73m2 (Non-) (test code = 7798568402) eGFR Calculation mL/min/1.73m2 () (test code = 7792518427) TANESHA (test code = TANESHA) Association of [...] tests). Lab Interpretation Abnormal (test code = 26881-8) [facility] WITH [id number] 12:08:00 Test Item Value Reference Range Interpretation Comments WBC (test code = See_Comment [Automated 0190-2) message] The sy stem which generated this [...] (test code = 50.7 fL 39-49.9 H 08215-0) RDW-CV (test code = 14.8 % 12-15.5 788-0) PLT (test code = See_Comment [Automated 777-3) message] The sy stem which generated this result transmitted reference range : 166 - 358 10*3/ ?L. The reference r irvin was not used to interpret this result as normal/abnormal . MPV (test code = 11.3 fL 9.5-12.9 67598-0) NRBC/100 WBC (test See_Comment [Automat ed code = 3018865518) message] The system which generated this result transmitted reference range : 0.0 - 10.0 /100 WBCs. The refer ence range was not u sed to interpret th is result as normal/abnormal . NRBC x10^3 (test code <0.01 See_Comment [Auto mated = 9204046146) message] The s ystem which generated this result transmitted reference range : 10*3/?L. The reference range was not used to interpret this result as normal/abnormal . GRAN MAT (NEUT) % 76.2 % (test code = 770-8) IMM GRAN % (test code 0.40 % = 4922497826) LYMPH % (test code = 13.7 % 736-9) MONO % (test code = 8.4 % 5905-5) EOS % (test code = 0.9 % 713-8) BASO % (test code = 0.4 % 706-2) GRAN MAT x10^3(ANC) 4.18 10*3/uL 1.88-7.09 (test code = 8287271622) IMM GRAN x10^3 (test <0.03 0-0.06 code = 4363093817) LYMPH x10^3 (test code 0.75 10*3/uL 1.32-3.29 L = 731-0) MONO x10^3 (test code 0.46 10*3/uL 0.33-0.92 = 742-7) EOS x10^3 (test code = 0.05 10*3/uL 0.03-0.39 711-2) BASO x10^3 (test code <0.03 0.01-0.07 = 704-7) Lab Interpretation Abnormal (test code = 47492-5) [facility] HospitalPOCT GLUCOSE (AUTOMATED)2020-10-27 02:27:00 Test Item Value Reference Range Interpretation Comments POCT GLU (test code = 8558320625) 97 mg/dL 70-110 Lab Interpretation (test code = Normal 73346-4) [facility] HospitalLAB ONLY COVID [id number] 23:29:00COVID DMT InterpretationInterpretation/Recommendations: Molecular NAAT Tests for [...] COVID-19 testing the patient has had at [facility], including molecular NAAT testing (more commonly known as PCR testing and Rapid ID Now testing) and antibody testing. It does not take into account any testing that a patient hashad outside of the [facility] medical record. [facility] LABORATORY SERVICESCOVID GestbmxPMCP-BqR-2 Rapid ID NOW(no units) ? ? Date ? Value ? 10/26/2020 ? Not Detected ? ? ? 10/11/2020 ? Not Detected ? [facility]ORAT[facility] SERVICESUnStarr [facility] CT CHEST PULMONARY [id number] 21:51:22 1. No evidence of acute or [...] Stable c ompression deformity of T8 vertebral body.Nuris Herrera MD., have reviewed this study andagree with theabove report.[facility] HospitalCOVID-19 (ID NOW RAPID TESTING)2020-10-26 20:17:00 Test Item Value Reference Range Interpretation Comments SARS-CoV-2 Rapid ID NOW Not Detected Not Detected (test code = 72612-9) TANESHA (test code = TANESHA) ID NOW COVID-19 Assay is an isothermal nucleic acid amplification test intended for the qualitative detection of nucleic acid from SARS-CoV-2 viral RNA in nasopharyngeal (MEDICATION RECONCILIATION TECHNICIAN) specimens. It is used under Emergency Use [...] indicated. Lab Interpretation Normal (test code = 62981-4) [facility] HospitalMR BRAIN W WO [id number] 19:11:48 No acute intracranial abnormality. Preliminary Report [...] reviewed this study and agree with the abovereport.[facility] HospitalXR CHEST 1 [id number] 15:47:30EXAM: XR CHEST 1 VW HISTORY: Fever [...] are clear otherwise. The heartand great vessels arenormal.[facility] HospitalD-[id number] 11:22:00 Test Item Value Reference Interpretation Comments Range D-DIMER (test code = See_Comment H [Autom ated 6306376475) message] The system which generated this result [...] diagnosis. Lab Interpretation Abnormal (test code = 65388-4) [facility] HospitalURINALYSIS2021-01-20 09:07:00 Test Item Value Reference Range Interpretation Comments APPEARANCE (test code = Cloudy Clear A 0567596781) COLOR (test code = Yellow Yellow 5230170822) PH (test code = 4.8-8.0 0495856893) SP GRAVITY (test code = 1.003-1.030 7066314496) GLU U QUAL (test code = Normal Normal 3471099111) BLOOD (test code = Negative Negative 0003990013) KETONES (test code = Negative Negative 4146494555) PROTEIN (test code = Negative Negative 2887-8) UROBILIN (test code = Normal Normal 7017628641) BILIRUBIN (test code = Negative Negative 3173739993) NITRITE (test code = Negative Negative 8559722974) LEUK EDINSON (test code = Negative Negative 1850805836) RBC/HPF (test code = See_Comment [Autom ated message] 4620734697) The system [employer] generated this result transmitted ref erence range: 0 - 3 HP F. The reference range was not used to int erpret this result as normal/abnormal . WBC/HPF (test code = See_Comment [Autom ated message] 0458459799) The system [employer] generated this result transmitted ref erence range: 0 - 5 HP F. The reference range was not used to int erpret this result as normal/abnormal . BACTERIA (test code = Negative Negative 1813655169) AMORPHOUS (test code = Moderate Rare HPF A 5228150963) ASCORBIC ACID (test code Negative = 0663712163) Lab Interpretation (test Abnormal code = 52601-1) [facility] METABOLIC PANEL (NA, K, CL, CO2, GLUCOSE, BUN, CREATININE, CA)2020-10-26 08:22:00 Test Item Value Reference Range Interpretation Comments NA (test code = 134 mmol/L 135-145 L 7967238756) K (test code = 4.0 mmol/L 3.5-5 6530855837) CL (test code = 100 mmol/L 98-108 7239794909) CO2 TOTAL (test code = 28 mmol/L 23-31 8906679082) AGAP (test code = 2-16 9928786053) BUN (test code = 16 mg/dL 7-23 6872740312) GLUCOSE (test code = 157 mg/dL 70-110 H 8271435559) CREATININE (test code = 0.57 mg/dL 0.5-1.04 1929695041) CALCIUM (test code = 9.2 mg/dL 8.6-10.6 5870947379) eGFR Calculation mL/min/1.73m2 (Non-) (test code = 7438666322) eGFR Calculation mL/min/1.73m2 () (test code = 8151754838) TANESHA (test code = TANESHA) Association of [...] tests). Lab Interpretation Abnormal (test code = 69748-3) [facility] HospitalMAGNESIUM2021-01-20 08:22:00 Test Item Value Reference Range Interpretation Comments MAGNESIUM (test code = 3701593120) 1.8 mg/dL 1.7-2.4 Lab Interpretation (test code = Normal 00042-1) [facility] (NA, K, CL, CO2, GLUCOSE, BUN, CREATININE, CA)2020-10-25 11:09:00 Test Item Value Reference Range Interpretation Comments NA (test code = 135 mmol/L 135-145 7135506261) K (test code = 4.1 mmol/L 3.5-5 6043553700) CL (test code = 102 mmol/L 98-108 8972332594) CO2 TOTAL (test code = 30 mmol/L 23-31 0956154703) AGAP (test code = 2-16 2620316887) BUN (test code = 9 mg/dL 7-23 8613735083) GLUCOSE (test code = 94 mg/dL 70-110 8097880184) CREATININE (test code = 0.42 mg/dL 0.5-1.04 L 1462972776) CALCIUM (test code = 8.6 mg/dL 8.6-10.6 3089919215) eGFR Calculation mL/min/1.73m2 (Non-) (test code = 4592216718) eGFR Calculation mL/min/1.73m2 () (test code = 9390708948) TANESHA (test code = TANESHA) Association of [...] tests). Lab Interpretation Abnormal (test code = 46084-5) [facility] HospitalMAGNESIUM2021-01-19 11:09:00 Test Item Value Reference Range Interpretation Comments MAGNESIUM (test code = 2089663439) 1.8 mg/dL 1.7-2.4 Lab Interpretation (test code = Normal 28465-3) [facility] HospitalCB WITH [id number] 11:00:00 Test Item Value Reference Range Interpretation Comments WBC (test code = See_Comment [Automated 0790-2) message] The sy stem which generated this [...] RDW-SD (test code = 48.7 fL 39-49.9 15476-1) RDW-CV (test code = 14.3 % 12-15.5 788-0) PLT (test code = See_Comment [Automated 777-3) message] The sy stem which generated this result transmitted reference range : 166 - 358 10*3/ ?L. The reference r irvin was not used to interpret this result as normal/abnormal . MPV (test code = 11.3 fL 9.5-12.9 66707-7) NRBC/100 WBC (test See_Comment [Automat ed code = 7006109926) message] The system which generated this result transmitted reference range : 0.0 - 10.0 /100 WBCs. The refer ence range was not u sed to interpret th is result as normal/abnormal . NRBC x10^3 (test code <0.01 See_Comment [Auto mated = 2985143669) message] The s ystem which generated this result transmitted reference range : 10*3/?L. The reference range was not used to interpret this result as normal/abnormal . GRAN MAT (NEUT) % 77.5 % (test code = 770-8) IMM GRAN % (test code 0.50 % = 9087894292) LYMPH % (test code = 10.3 % 736-9) MONO % (test code = 9.9 % 5905-5) EOS % (test code = 1.3 % 713-8) BASO % (test code = 0.5 % 706-2) GRAN MAT x10^3(ANC) 4.76 10*3/uL 1.88-7.09 (test code = 6284166199) IMM GRAN x10^3 (test 0.03 10*3/uL 0-0.06 code = 2180238576) LYMPH x10^3 (test code 0.63 10*3/uL 1.32-3.29 L = 731-0) MONO x10^3 (test code 0.61 10*3/uL 0.33-0.92 = 742-7) EOS x10^3 (test code = 0.08 10*3/uL 0.03-0.39 711-2) BASO x10^3 (test code 0.03 10*3/uL 0.01-0.07 = 704-7) Lab Interpretation Abnormal (test code = 16862-0) [facility] [id number] 20:53:00 Test Item Value Reference Range Interpretation Comments FREE T4 (test code = See_Comment [Autom ated message] 3964284520) The system ic h generated this result transmitted ref erence range: 0.78 - 2 .20 ng/dL:. The ref erence range was not u sed to interpret this result as normal/abnor mal. Lab Interpretation (test Normal code = 20230-5) [facility] HospitalTHYROID STIMULATING [id number] 17:22:00 Test Item Value Reference Range Interpretation Comments TSH (test code = See_Comment Biotin has been 6945333591) reported to cau se a negative bias, interpret resul ts relative to zaina arana's use of biotin. [Automated mess age] The system [employer] generated this result transmitted ref erence range: 0.45 - 4 .70 mIU/L. The refe rence range was not u sed to interpret this result as normal/abnor mal. Lab Interpretation (test Normal code = 26503-1) [facility] (NA, K, CL, CO2, GLUCOSE, BUN, CREATININE, CA)2020-10-24 09:56:00 Test Item Value Reference Range Interpretation Comments NA (test code = 135 mmol/L 135-145 0212775250) K (test code = 3.5 mmol/L 3.5-5 2523940894) CL (test code = 104 mmol/L 98-108 4496899949) CO2 TOTAL (test code = 28 mmol/L 23-31 3586866620) AGAP (test code = 2-16 1350437153) BUN (test code = 12 mg/dL 7-23 2642830993) GLUCOSE (test code = 96 mg/dL 70-110 1613504121) CREATININE (test code = 0.42 mg/dL 0.5-1.04 L 8951460470) CALCIUM (test code = 8.6 mg/dL 8.6-10.6 7296292311) eGFR Calculation mL/min/1.73m2 (Non-) (test code = 1590156452) eGFR Calculation mL/min/1.73m2 () (test code = 6674577268) TANESHA (test code = TANESHA) Association of [...] tests). Lab Interpretation Abnormal (test code = 46577-6) [facility]MAGNESIUM2021-01-18 09:56:00 Test Item Value Reference Range Interpretation Comments MAGNESIUM (test code = 9461386218) 1.8 mg/dL 1.7-2.4 Lab Interpretation (test code = Normal 36945-0) [facility] WITH [id number] 09:35:00 Test Item Value Reference Range Interpretation Comments WBC (test code = See_Comment L [Automated 8590-2) message] The sy stem which generated this result transmitted reference range : 4.30 - 11.10 10*3/?L. The reference range was not used to interpret this result as normal/abnormal . RBC (test code = See_Comment L [Automated 209-8) message] The sy stem which generated this [...] RDW-SD (test code = 47.4 fL 39-49.9 01648-0) RDW-CV (test code = 14.0 % 12-15.5 788-0) PLT (test code = See_Comment [Automated 777-3) message] The sy stem which generated this result transmitted reference range : 166 - 358 10*3/ ?L. The reference r irvin was not used to interpret this result as normal/abnormal . MPV (test code = 11.1 fL 9.5-12.9 90238-0) NRBC/100 WBC (test See_Comment [Automat ed code = 7300289190) message] The system which generated this result transmitted reference range : 0.0 - 10.0 /100 WBCs. The refer ence range was not u sed to interpret th is result as normal/abnormal . NRBC x10^3 (test code <0.01 See_Comment [Auto mated = 3549774674) message] The s ystem which generated this result transmitted reference range : 10*3/?L. The reference range was not used to interpret this result as normal/abnormal . GRAN MAT (NEUT) % 64.9 % (test code = 770-8) IMM GRAN % (test code 0.30 % = 4204795335) LYMPH % (test code = 16.2 % 736-9) MONO % (test code = 16.2 % 5905-5) EOS % (test code = 2.1 % 713-8) BASO % (test code = 0.3 % 706-2) GRAN MAT x10^3(ANC) 2.20 10*3/uL 1.88-7.09 (test code = 0693432969) IMM GRAN x10^3 (test <0.03 0-0.06 code = 2095633537) LYMPH x10^3 (test code 0.55 10*3/uL 1.32-3.29 L = 731-0) MONO x10^3 (test code 0.55 10*3/uL 0.33-0.92 = 742-7) EOS x10^3 (test code = 0.07 10*3/uL 0.03-0.39 711-2) BASO x10^3 (test code <0.03 0.01-0.07 = 704-7) Lab Interpretation Abnormal (test code = 54065-4) [facility] CULTURE [id number] 00:01:00 Test Item Value Reference Range Interpretation Comments Blood Culture-Aerobic No organisms No growth Previo us (test code = 85797-5) isolated prelim inary verified result was Culture In Progress on 10/17/2020 at 21 01 CSTPrevious preliminary verified result was No growth a t 24 hours on 10/18/2020 at 18 01 CSTPrevious preliminary verified result was No growth a t 48 hours on 10/19/2020 at 18 01 CSTPrevious preliminary verified result was No growth a t 72 hours on 10/20/2020 at 18 01 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 Blood No organisms No growth Previous Culture-Anaerobic isolated preliminar y (test code = 44981-7) verifi ed result was Culture In Progress on 10/17/2020 at 21 01 CSTPrevious preliminary verified result was No growth a t 24 hours on 10/18/2020 at 18 01 CSTPrevious preliminary verified result was No growth a t 48 hours on 10/19/2020 at 18 01 CSTPrevious preliminary verified result was No growth a t 72 hours on 10/20/2020 at 18 01 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 Lab Interpretation Normal (test code = 02298-5) [facility] CULTURE [id number] 22:01:00 Test Item Value Reference Range Interpretation Comments Blood Culture-Aerobic No organisms No growth Previo us (test code = 65560-4) isolated prelim inary verified result was Culture In Progress on 10/17/2020 at 19 01 CSTPrevious preliminary verified result was No growth a t 24 hours on 10/18/2020 at 16 01 CSTPrevious preliminary verified result was No growth a t 48 hours on 10/19/2020 at 16 01 CSTPrevious preliminary verified result was No growth a t 72 hours on 10/20/2020 at 16 01 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 Blood No organisms No growth Previous Culture-Anaerobic isolated preliminar y (test code = 35497-3) verifi ed result was Culture In Progress on 10/17/2020 at 19 01 CSTPrevious preliminary verified result was No growth a t 24 hours on 10/18/2020 at 16 01 CSTPrevious preliminary verified result was No growth a t 48 hours on 10/19/2020 at 16 01 CSTPrevious preliminary verified result was No growth a t 72 hours on 10/20/2020 at 16 01 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 Lab Interpretation Normal (test code = 66170-3) [facility] METABOLIC PANEL (NA, K, CL, CO2, GLUCOSE, BUN, CREATININE, CA)2020-10-22 11:53:00 Test Item Value Reference Range Interpretation Comments NA (test code = 130 mmol/L 135-145 L 7537638874) K (test code = 4.1 mmol/L 3.5-5 9844009237) CL (test code = 99 mmol/L 98-108 3884019286) CO2 TOTAL (test code = 31 mmol/L 23-31 5466476911) AGAP (test code = <1 2-16 L 3074711996) BUN (test code = 16 mg/dL 7-23 9367858019) GLUCOSE (test code = 100 mg/dL 70-110 6220686935) CREATININE (test code = 0.42 mg/dL 0.5-1.04 L 6712722201) CALCIUM (test code = 8.4 mg/dL 8.6-10.6 L 3936972623) eGFR Calculation mL/min/1.73m2 (Non-) (test code = 4077653601) eGFR Calculation mL/min/1.73m2 () (test code = 6835730926) TANESHA (test code = TANESHA) Association of [...] tests). Lab Interpretation Abnormal (test code = 91317-3) [facility] WITH [id number] 10:59:00 Test Item Value Reference Range Interpretation [...] RDW-SD (test code = 46.3 fL 39-49.9 67229-8) RDW-CV (test code = 13.7 % 12-15.5 788-0) PLT (test code = See_Comment [Automated 777-3) message] The sy stem which generated this result transmitted reference range : 166 - 358 10*3/ ?L. The reference r irvin was not used to interpret this result as normal/abnormal . MPV (test code = 11.7 fL 9.5-12.9 32259-8) NRBC/100 WBC (test See_Comment [Automat ed code = 2730594142) message] The system which generated this result transmitted reference range : 0.0 - 10.0 /100 WBCs. The refer ence range was not u sed to interpret th is result as normal/abnormal . NRBC x10^3 (test code <0.01 See_Comment [Auto mated = 0344695545) message] The s ystem which generated this result transmitted reference range : 10*3/?L. The reference range was not used to interpret this result as normal/abnormal . GRAN MAT (NEUT) % 60.1 % (test code = 770-8) IMM GRAN % (test code 0.60 % = 4742500051) LYMPH % (test code = 18.2 % 736-9) MONO % (test code = 18.2 % 5905-5) EOS % (test code = 2.0 % 713-8) BASO % (test code = 0.9 % 706-2) GRAN MAT x10^3(ANC) 2.12 10*3/uL 1.88-7.09 (test code = 8387182852) IMM GRAN x10^3 (test <0.03 0-0.06 code = 9103826758) LYMPH x10^3 (test code 0.64 10*3/uL 1.32-3.29 L = 731-0) MONO x10^3 (test code 0.64 10*3/uL 0.33-0.92 = 742-7) EOS x10^3 (test code = 0.07 10*3/uL 0.03-0.39 711-2) BASO x10^3 (test code 0.03 10*3/uL 0.01-0.07 = 704-7) Lab Interpretation Abnormal (test code = 27514-7) [facility] [id number] 16:40:00 Test Item Value Reference Range Interpretation Comments CSF CULTURE (test No organisms isolated code = 606-4) Gram stain (test code Occasional (Rare) = 664-3) Mononuclear cells [facility]. Sendout- Meningtis Panel [facility] [id number] 2020-10-21 13:57:00 Test Item Value Reference Range Interpretation Comments Miscellaneous Test (test See scanned report code = 3480371600) Performing Lab (test code [facility] = 6807899685) [facility]. Sendout- Paraneoplastic panel [facility] [id number] 13:15:00 Test Item Value Reference Range Interpretation Comments Miscellaneous Test (test See scanned report code = 0611377473) Performing Lab (test code [facility] = 0221781338) [facility] 11:27:00 Test Item Value Reference Range Interpretation Comments MAGNESIUM (test code = 9567582867) 1.6 mg/dL 1.7-2.4 L Lab Interpretation (test code = Abnormal 93317-3) [facility] METABOLIC PANEL (NA, K, CL, CO2, GLUCOSE, BUN, CREATININE, CA)2020-10-21 11:27:00 Test Item Value Reference Range Interpretation Comments NA (test code = 133 mmol/L 135-145 L 2682674688) K (test code = 3.5 mmol/L 3.5-5 2205582386) CL (test code = 103 mmol/L 98-108 2162519071) CO2 TOTAL (test code = 24 mmol/L 23-31 6040857618) AGAP (test code = 2-16 6487901100) BUN (test code = 10 mg/dL 7-23 1437835325) GLUCOSE (test code = 90 mg/dL 70-110 7098344824) CREATININE (test code = 0.39 mg/dL 0.5-1.04 L 0426108733) CALCIUM (test code = 7.8 mg/dL 8.6-10.6 L 1577593352) eGFR Calculation mL/min/1.73m2 (Non-) (test code = 5069436988) eGFR Calculation mL/min/1.73m2 () (test code = 4729926324) TANESHA (test code = TANESHA) Association of [...] tests). Lab Interpretation Abnormal (test code = 80825-9) [facility] WITH [id number] 11:22:00 Test Item Value Reference Range Interpretation Comments WBC (test code = See_Comment L [Automated 7405-2) message] The sy stem which generated this result transmitted reference range : 4.30 - 11.10 10*3/?L. The reference range was not used to interpret this result as normal/abnormal . RBC (test code = See_Comment L [Automated 419-8) message] The sy stem which generated this [...] RDW-SD (test code = 46.9 fL 39-49.9 97040-5) RDW-CV (test code = 13.6 % 12-15.5 788-0) PLT (test code = See_Comment [Automated 777-3) message] The sy stem which generated this result transmitted reference range : 166 - 358 10*3/ ?L. The reference r irvin was not used to interpret this result as normal/abnormal . MPV (test code = 11.6 fL 9.5-12.9 13423-0) NRBC/100 WBC (test See_Comment [Automat ed code = 1540247549) message] The system which generated this result transmitted reference range : 0.0 - 10.0 /100 WBCs. The refer ence range was not u sed to interpret th is result as normal/abnormal . NRBC x10^3 (test code <0.01 See_Comment [Auto mated = 5584035054) message] The s ystem which generated this result transmitted reference range : 10*3/?L. The reference range was not used to interpret this result as normal/abnormal . GRAN MAT (NEUT) % 58.6 % (test code = 770-8) IMM GRAN % (test code 0.30 % = 2782535757) LYMPH % (test code = 21.8 % 736-9) MONO % (test code = 17.3 % 5905-5) EOS % (test code = 1.0 % 713-8) BASO % (test code = 1.0 % 706-2) GRAN MAT x10^3(ANC) 1.80 10*3/uL 1.88-7.09 L (test code = 2530048782) IMM GRAN x10^3 (test <0.03 0-0.06 code = 0455313882) LYMPH x10^3 (test code 0.67 10*3/uL 1.32-3.29 L = 731-0) MONO x10^3 (test code 0.53 10*3/uL 0.33-0.92 = 742-7) EOS x10^3 (test code = 0.03 10*3/uL 0.03-0.39 711-2) BASO x10^3 (test code 0.03 10*3/uL 0.01-0.07 = 704-7) TOXIC CHANGES (test Present A code = 803-7) Lab Interpretation Abnormal (test code = 13607-7) [facility], [id number] 18:19:00 Test Item Value Reference Range Interpretation Comments ANCA TITER (test code <1:20 See_Comment The AN CA IFA is <1:20; = 07897-4) therefore, no f urther testing will be [...] or arthritis.Pe rformed By: [facility], [place] [address]Kbpjggq or Director: Sherry Murillo MD [Bucky Box essage] The system which ge nerated this result transmit carol reference range : <1:20. The reference range was not used to interpr et this result as anoop l/abnormal. [facility] Paraneoplastic [facility] [id number] 2020-10-20 17:36:00 Test Item Value Reference Range Interpretation Comments Miscellaneous Test (test See scanned report code = 3521386140) Performing Lab (test code [facility] = 0038728278) [facility] ([address] (ALB,T.PRO,BILI T,BU/BC,ALT,AST,ALK PHOS)2020-10-20 15:53:00 Test Item Value Reference Range Interpretation Comments TOTAL BILI (test code = 5347332427) 0.2 mg/dL 0.1-1.1 BILI UNCON (test code = 4618095418) 0.2 mg/dL 0.1-1.1 BILI CONJ (test code = 8277767685) 0.0 mg/dL 0-0.3 T PROTEIN (test code = 4570578956) 7.4 g/dL 6.3-8.2 ALBUMIN (test code = 0797858327) 2.9 g/dL 3.5-5 L ALK PHOS (test code = 1696455319) 87 U/L 34-122 ALTv (test code = 1742-6) 38 U/L 5-35 H AST(SGOT) (test code = 5734273047) 64 U/L 13-40 H Lab Interpretation (test code = Abnormal 76479-5) [facility] WITH [id number] 11:27:00 Test Item Value Reference Range Interpretation Comments WBC (test code = See_Comment L [Automated 1690-2) message] The sy stem which generated this [...] RDW-SD (test code = 45.2 fL 39-49.9 33394-0) RDW-CV (test code = 13.5 % 12-15.5 788-0) PLT (test code = See_Comment [Automated 777-3) message] The sy stem which generated this result transmitted reference range : 166 - 358 10*3/ ?L. The reference r irvin was not used to interpret this result as normal/abnormal . MPV (test code = 11.3 fL 9.5-12.9 42873-0) NRBC/100 WBC (test See_Comment [Automat ed code = 8084902425) message] The system which generated this result transmitted reference range : 0.0 - 10.0 /100 WBCs. The refer ence range was not u sed to interpret th is result as normal/abnormal . NRBC x10^3 (test code <0.01 See_Comment [Auto mated = 6723325357) message] The s ystem which generated this result transmitted reference range : 10*3/?L. The reference range was not used to interpret this result as normal/abnormal . GRAN MAT (NEUT) % 62.2 % (test code = 770-8) IMM GRAN % (test code 0.30 % = 0314708045) LYMPH % (test code = 17.4 % 736-9) MONO % (test code = 17.7 % 5905-5) EOS % (test code = 1.7 % 713-8) BASO % (test code = 0.7 % 706-2) GRAN MAT x10^3(ANC) 1.79 10*3/uL 1.88-7.09 L (test code = 8508192644) IMM GRAN x10^3 (test <0.03 0-0.06 code = 2591105037) LYMPH x10^3 (test code 0.50 10*3/uL 1.32-3.29 L = 731-0) MONO x10^3 (test code 0.51 10*3/uL 0.33-0.92 = 742-7) EOS x10^3 (test code = 0.05 10*3/uL 0.03-0.39 711-2) BASO x10^3 (test code <0.03 0.01-0.07 = 704-7) BASO STIPPLING (test Present A code = 703-9) Lab Interpretation Abnormal (test code = 06991-5) [facility] [id number] 11:16:00 Test Item Value Reference Range Interpretation Comments TROPONIN I (test 0.003 ng/mL See_Comment [Automated code = 8933915607) message] The system which generated this result [...] ? Lab Interpretation Normal (test code = 74103-4) [facility]PROT[facility]OM[facility] / [id number] 11:04:00 Test Item Value Reference Range Interpretation Comments PROTIME PATIENT (test See_Comment [Auto mated message] code = 5964-2) The system [employer] generated this result transmitted ref erence range: 10.1 - 1 2.6 Seconds. The re ference range was not u sed to interpret this result as normal/abnor mal. INR (test code = 6301-6) Nor mal INR <1.1; Warfarin Therap eutic range 2.0 to 3. 0 or 2.5 to 3.5, dep ending upon the indica tions. Lab Interpretation (test Normal code = 25922-4) [facility] HospitalACTIV[facility] PARTIAL THRMPLAS [id number] 11:04:00 Test Item Value Reference Range Interpretation Comments APTT Patient (test code = See_Comment [ Automated message] 3173-2) The system [employer] generated this result transmitted ref erence range: 26 - 36 Seconds. The re ference range was not u sed to interpret this result as normal/abnor mal. Lab Interpretation (test Normal code = 88395-9) [facility] HospitalMAGNESIUM2021-01-14 09:53:00 Test Item Value Reference Range Interpretation Comments MAGNESIUM (test code = 9530879228) 1.8 mg/dL 1.7-2.4 Lab Interpretation (test code = Normal 12059-2) [facility] (NA, K, CL, CO2, GLUCOSE, BUN, CREATININE, CA)2020-10-20 09:53:00 Test Item Value Reference Range Interpretation Comments NA (test code = 134 mmol/L 135-145 L 8129627223) K (test code = 4.3 mmol/L 3.5-5 4232547060) CL (test code = 101 mmol/L 98-108 4075572050) CO2 TOTAL (test code = 32 mmol/L 23-31 H 8835222350) AGAP (test code = 2-16 L 6434437750) BUN (test code = 14 mg/dL 7-23 1364646308) GLUCOSE (test code = 109 mg/dL 70-110 1316234113) CREATININE (test code = 0.47 mg/dL 0.5-1.04 L 6204173052) CALCIUM (test code = 8.0 mg/dL 8.6-10.6 L 3034949050) eGFR Calculation mL/min/1.73m2 (Non-) (test code = 1854506928) eGFR Calculation mL/min/1.73m2 () (test code = 1615143137) TANESHA (test code = TANESHA) Association of [...] tests). Lab Interpretation Abnormal (test code = 38152-9) [facility] HospitalN-methyl-D-Aspartate Receptor Ab, CSF 2020-10-19 21:52:00 Test Item Value Reference Range Interpretation Comments D-rlelqh-D-Aspartate < 1:1 See_Comment Antibo dies to NMDA were Receptor Ab, CSF not detecte d, no additional (test code = 83801-9) testin g to follow.INTERPRE TIVE INFORMATION: S-ribqky-M-Aspa rtate ?Receptor Ab, CSF Anti-NM DA receptor [...] T est developed and characteristics determined by [facility]. See Compliance Stat ement B: [employer]Samplesaint/CSP erformed By: [facility] [place], [place] [address]Shlxsgx or Director: Sherry Murillo MD [Automated m essage] The system which ge nerated this result transmit carol reference range : <1:1. The reference range was not used to interpr et this result as anoop l/abnormal. [facility] HospitalXR [id number] 16:55:02 Dobbhoff tube projects over the gastric [...] minor modifications (no call needed tothe referring physician).IRick MD., have reviewed this study and agree with theabove report.[facility] HospitalCARCINOEMBRYONIC ANTIGEN 2020-10-19 15:44:00 Test Item Value Reference Range Interpretation Comments CEA (test code = 0.5 ng/mL 0-10 4807522119) TANESHA (test code = TANESHA) CEA Ranges: Non-Smokers ?0-5.0 ng/mLSmokers ? ? ?0-10.0 ng/mL Lab Interpretation (test Normal code = 45225-4) [facility] HospitalMR ABDOMEN W WO CONTRAST [id number] 13:26:12 Pancreatic parenchyma is atrophic and the [...] reviewed this study and agree with theabove report.[facility] HospitalMisc. Sendout- Men/Encep [facility] [id number] 2020-10-19 13:26:00 Test Item Value Reference Range Interpretation Comments Miscellaneous Test (test See scanned report code = 3855306086) Performing Lab (test code [facility] = 2042185320) [facility] HospitalHBV BY REAL-TIME [id number] 12:40:00 Test Item Value Reference Range Interpretation Comments HBV Quantitative Not Detected Not Detected Interpretation (test code = 61856-6) TANESHA (test code = TANESHA) The test [...] Log IU/mL >10^9 ?IU/mL, ?>9.00 ?Log IU/mL [facility]BASIC [facility]OLIC PANEL (NA, K, CL, CO2, GLUCOSE, BUN, CREATININE, CA)2020-10-19 09:55:00 Test Item Value Reference Range Interpretation Comments NA (test code = 131 mmol/L 135-145 L 2431410672) K (test code = 3.6 mmol/L 3.5-5 1851244312) CL (test code = 99 mmol/L 98-108 5090178805) CO2 TOTAL (test code = 28 mmol/L 23-31 7881565965) AGAP (test code = 2-16 6171462663) BUN (test code = 9 mg/dL 7-23 1514521235) GLUCOSE (test code = 83 mg/dL 70-110 0482750035) CREATININE (test code = 0.78 mg/dL 0.5-1.04 4859982983) CALCIUM (test code = 8.3 mg/dL 8.6-10.6 L 2637046630) eGFR Calculation mL/min/1.73m2 (Non-) (test code = 1171180410) eGFR Calculation mL/min/1.73m2 () (test code = 6855772271) TANESHA (test code = TANESHA) Association of [...] tests). Lab Interpretation Abnormal (test code = 34876-2) [facility] HospitalMAGNESIUM2021-01-13 09:55:00 Test Item Value Reference Range Interpretation Comments MAGNESIUM (test code = 4882397620) 1.6 mg/dL 1.7-2.4 L Lab Interpretation (test code = Abnormal 10775-3) [facility] (NA, K, CL, CO2, GLUCOSE, BUN, CREATININE, CA)2020-10-19 04:33:00 Test Item Value Reference Range Interpretation Comments NA (test code = 132 mmol/L 135-145 L 9914419103) K (test code = 4.2 mmol/L 3.5-5 Slight 4580698401) hemolysis CL (test code = 103 mmol/L 98-108 9802634498) CO2 TOTAL (test code 22 mmol/L 23-31 L = 2529058350) AGAP (test code = 2-16 5364791233) BUN (test code = 8 mg/dL 7-23 Slight 2063755759) hemolysis GLUCOSE (test code = 79 mg/dL 70-110 1587219244) CREATININE (test code 0.39 mg/dL 0.5-1.04 L = 1308514543) CALCIUM (test code = 8.2 mg/dL 8.6-10.6 L 6263941236) eGFR Calculation mL/min/1.73m2 (Non-) (test code = 4467653911) eGFR Calculation mL/min/1.73m2 () (test code = 5222888483) TANESHA (test code = TANESHA) Association of [...] tests). Lab Interpretation Abnormal (test code = 73121-0) [facility] HospitalMR BRAIN W WO [id number] 23:03:05 Impression: No acute abnormality diffusion-weighted imaging.Sequela [...] enhancement identified in the right petrousapex surrounding T6ecttibfsauym signal centrally.Two foci of susceptibility signal loss [...] identified in the right petrous apex surrounding Z4ehltbapzmqgz signal centrally.Two foci of susceptibility signal loss [...] mucosal thick ening.Preliminary Report Dictated by Resident: Javi Block, Ashley Roberson MD., have reviewed this study and agree with theabove report. [facility] HospitalANTI-NUCLEAR ANTIBODY [id number] 18:56:00 Test Item Value Reference Range Interpretation Comments CARLOS ENRIQUE (test code = Negative Negative 8962039472) TANESHA (test code = TANESHA) Negative - [...] separately. Lab Interpretation (test Normal code = 84454-6) [facility] HospitalXR [id number] 15:27:46FINDINGS/IMPRESSION: The Dobbhoff tube terminates in the [...] Dr. Lindsey at 3:43 AM 10/18/2019.Preliminary Report Dictated by Resident: Liza Herrera MD., have reviewed this study and agree with theabove report.[facility] HospitalBASI METABOLIC PANEL (NA, K, CL, CO2, GLUCOSE, BUN, CREATININE, CA)2020-10-18 11:41:00 Test Item Value Reference Range Interpretation Comments NA (test code = 130 mmol/L 135-145 L 8525780104) K (test code = 2.9 mmol/L 3.5-5 LL 0056363388) CL (test code = 97 mmol/L 98-108 L 2392253180) CO2 TOTAL (test code = 31 mmol/L 23-31 1732648460) AGAP (test code = 2-16 1812411219) BUN (test code = 7 mg/dL 7-23 4921340278) GLUCOSE (test code = 90 mg/dL 70-110 2119323567) CREATININE (test code = 0.72 mg/dL 0.5-1.04 9790232722) CALCIUM (test code = 8.2 mg/dL 8.6-10.6 L 8942540682) eGFR Calculation mL/min/1.73m2 (Non-) (test code = 8524177175) eGFR Calculation mL/min/1.73m2 () (test code = 2906615015) TANESHA (test code = TANESHA) Association of [...] tests). Lab Interpretation Abnormal (test code = 86669-9) [facility] 11:28:00 Test Item Value Reference Range Interpretation Comments MAGNESIUM (test code = 2102385705) 1.7 mg/dL 1.7-2.4 Lab Interpretation (test code = Normal 73560-2) [facility] WITH [id number] 11:04:00 Test Item Value Reference Range Interpretation [...] RDW-SD (test code = 44.5 fL 39-49.9 36342-7) RDW-CV (test code = 13.2 % 12-15.5 788-0) PLT (test code = See_Comment [Automated 777-3) message] The sy stem which generated this result transmitted reference range : 166 - 358 10*3/ ?L. The reference r irvin was not used to interpret this result as normal/abnormal . MPV (test code = 11.8 fL 9.5-12.9 63035-0) NRBC/100 WBC (test See_Comment [Automat ed code = 6613752735) message] The system which generated this result transmitted reference range : 0.0 - 10.0 /100 WBCs. The refer ence range was not u sed to interpret th is result as normal/abnormal . NRBC x10^3 (test code <0.01 See_Comment [Auto mated = 2058534683) message] The s ystem which generated this result transmitted reference range : 10*3/?L. The reference range was not used to interpret this result as normal/abnormal . GRAN MAT (NEUT) % 68.2 % (test code = 770-8) IMM GRAN % (test code 0.60 % = 8969042610) LYMPH % (test code = 13.9 % 736-9) MONO % (test code = 14.2 % 5905-5) EOS % (test code = 2.5 % 713-8) BASO % (test code = 0.6 % 706-2) GRAN MAT x10^3(ANC) 2.16 10*3/uL 1.88-7.09 (test code = 6291213907) IMM GRAN x10^3 (test <0.03 0-0.06 code = 8743364571) LYMPH x10^3 (test code 0.44 10*3/uL 1.32-3.29 L = 731-0) MONO x10^3 (test code 0.45 10*3/uL 0.33-0.92 = 742-7) EOS x10^3 (test code = 0.08 10*3/uL 0.03-0.39 711-2) BASO x10^3 (test code <0.03 0.01-0.07 = 704-7) Lab Interpretation Abnormal (test code = 29670-5) [facility]URINALYSIS2021-[facility]-11 23:14:00 Test Item Value Reference Range Interpretation Comments APPEARANCE (test code = Hazy Clear A 4679030583) COLOR (test code = Yellow Yellow 9444610890) PH (test code = 4.8-8.0 4476547186) SP GRAVITY (test code = 1.003-1.030 6082252024) GLU U QUAL (test code = Normal Normal 6434850018) BLOOD (test code = Negative Negative 6050754492) KETONES (test code = Negative Negative 3935444369) PROTEIN (test code = Negative Negative 2887-8) UROBILIN (test code = Normal Normal 7806813320) BILIRUBIN (test code = Negative Negative 8920807608) NITRITE (test code = Negative Negative 3381396456) LEUK EDINSON (test code = Negative Negative 4885388010) RBC/HPF (test code = See_Comment [Autom ated message] 8756929601) The system [employer] generated this result transmitted ref erence range: 0 - 3 HP F. The reference range was not used to int erpret this result as normal/abnormal . WBC/HPF (test code = See_Comment [Autom ated message] 6298474228) The system [employer] generated this result transmitted ref erence range: 0 - 5 HP F. The reference range was not used to int erpret this result as normal/abnormal . BACTERIA (test code = Few Negative A 0048849277) AMORPHOUS (test code = Rare Rare HPF 7244869665) Lab Interpretation (test Abnormal code = 92443-7) [facility] HospitalCANCER ANTIGEN-GI (CA 19-9)2020-10-17 21:15:00 Test Item Value Reference Range Interpretation Comments CA 19-9 (test code = 18.9 U/mL 0-35 4890357289) TANESHA (test code = TANESHA) Biotin has been reported to cause a negative bias, interpret results relative to patient's use of biotin. Lab Interpretation (test Normal code = 68712-7) [facility] HospitalCA-[id number] 21:15:00 Test Item Value Reference Range Interpretation Comments CA-125 (test code = 9257879416) 27.0 U/mL 0-35 Lab Interpretation (test code = Normal 49740-7) [facility] HospitalCT THORAX W [id number] 21:02:02 1.. Findings there may be seen [...] and L1. Diffuseosteopenia. Preliminary Report Dictatedby Resident: Farhat christian I, Nuris Maradiaga MD., [...] study and agree with theabove report.[facility]-REACTIVE [id number] 21:00:00 Test Item Value Reference Range Interpretation Comments CRP (test code = 3091604504) 0.4 mg/dL <0.8 Lab Interpretation (test code = Normal 83432-1) [facility] HospitalSEDIMENTATION [id number] 20:11:00 Test Item Value Reference Range Interpretation Comments ESR (test code = See_Comment [Automated message] 5509682266) The system [employer] generated this result transmitted ref erence range: 0 - 20 m m/HR. The reference r irvin was not used to interpret this result as normal/abnor mal. Lab Interpretation (test Normal code = 01946-0) [facility] METABOLIC PANEL (NA, K, CL, CO2, GLUCOSE, BUN, CREATININE, CA)2020-10-17 20:04:00 Test Item Value Reference Range Interpretation Comments NA (test code = 132 mmol/L 135-145 L 4370903073) K (test code = 3.5 mmol/L 3.5-5 4278042645) CL (test code = 99 mmol/L 98-108 5798503190) CO2 TOTAL (test code = 31 mmol/L 23-31 1406474896) AGAP (test code = 2-16 6988815392) BUN (test code = 8 mg/dL 7-23 2459264854) GLUCOSE (test code = 85 mg/dL 70-110 4977486379) CREATININE (test code = 0.33 mg/dL 0.5-1.04 L 7718179702) CALCIUM (test code = 8.7 mg/dL 8.6-10.6 7933937083) eGFR Calculation mL/min/1.73m2 (Non-) (test code = 5516124852) eGFR Calculation mL/min/1.73m2 () (test code = 4275029450) TANESHA (test code = TANESHA) Association of [...] tests). Lab Interpretation Abnormal (test code = 63083-3) [facility] HospitalLactic Acid Whole [id number] 19:42:00 Test Item Value Reference Range Interpretation Comments LACTIC ACID (test code = 0.79 mmol/L QUE S 0531964263) [facility] HospitalRHEUMATOID [id number] 18:54:00 Test Item Value Reference Range Interpretation Comments RF (test code = <20 See_Comment [Automated message] 5060117070) The system [employer] generated this result transmitted ref erence range: <20 IU/m L. The reference range was not used to int erpret this result as normal/abnormal . Lab Interpretation (test Normal code = 54741-3) [facility] [id number] 17:28:35 1. ?Mildly dilated common duct, measuring [...] anterior compressive deformitywith approximately 20% anteriorheight loss. [facility], Radiant Results Inft User - 10/17/2020 11:29 [...] reviewed this study and agree with theabove report.[facility] BY [id number] 12:45:00 Test Item Value Reference Range Interpretation Comments HCV Quantitative Not Detected Not detected Interpretation (test IU/mL code = 5397320408) TANESHA (test code = TANESHA) Weaver m2000 RealTime HCV reverse actuarial technician-polymeras e chain reaction(RT-PCR) assay is used. It [...] ,000 IU/mL,>100,000,000 IU/mL: >upper limit of quantification. [facility] WITH [id number] 11:49:00 Test Item Value Reference Range Interpretation [...] RDW-SD (test code = 42.9 fL 39-49.9 50524-6) RDW-CV (test code = 13.1 % 12-15.5 788-0) PLT (test code = See_Comment [Automated 777-3) message] The sy stem which generated this result transmitted reference range : 166 - 358 10*3/ ?L. The reference r irvin was not used to interpret this result as normal/abnormal . MPV (test code = 12.2 fL 9.5-12.9 04560-3) NRBC/100 WBC (test See_Comment [Automat ed code = 3725102032) message] The system which generated this result transmitted reference range : 0.0 - 10.0 /100 WBCs. The refer ence range was not u sed to interpret th is result as normal/abnormal . NRBC x10^3 (test code <0.01 See_Comment [Auto mated = 5397718945) message] The s ystem which generated this result transmitted reference range : 10*3/?L. The reference range was not used to interpret this result as normal/abnormal . GRAN MAT (NEUT) % 70.1 % (test code = 770-8) IMM GRAN % (test code 0.40 % = 5433160453) LYMPH % (test code = 15.2 % 736-9) MONO % (test code = 11.6 % 5905-5) EOS % (test code = 2.3 % 713-8) BASO % (test code = 0.4 % 706-2) GRAN MAT x10^3(ANC) 3.37 10*3/uL 1.88-7.09 (test code = 7848768858) IMM GRAN x10^3 (test <0.03 0-0.06 code = 7723481037) LYMPH x10^3 (test code 0.73 10*3/uL 1.32-3.29 L = 731-0) MONO x10^3 (test code 0.56 10*3/uL 0.33-0.92 = 742-7) EOS x10^3 (test code = 0.11 10*3/uL 0.03-0.39 711-2) BASO x10^3 (test code <0.03 0.01-0.07 = 704-7) Lab Interpretation Abnormal (test code = 17735-9) [facility] METABOLIC PANEL (NA, K, CL, CO2, GLUCOSE, BUN, CREATININE, CA)2020-10-17 11:46:00 Test Item Value Reference Range Interpretation Comments NA (test code = 134 mmol/L 135-145 L 0804085815) K (test code = 3.3 mmol/L 3.5-5 L 8818439884) CL (test code = 100 mmol/L 98-108 7427996432) CO2 TOTAL (test code = 30 mmol/L 23-31 6741477556) AGAP (test code = 2-16 3795795272) BUN (test code = 8 mg/dL 7-23 3743381792) GLUCOSE (test code = 102 mg/dL 70-110 8318025668) CREATININE (test code = 0.37 mg/dL 0.5-1.04 L 4276597913) CALCIUM (test code = 8.5 mg/dL 8.6-10.6 L 5815788516) eGFR Calculation mL/min/1.73m2 (Non-) (test code = 5745205278) eGFR Calculation mL/min/1.73m2 () (test code = 8945314173) TANESHA (test code = TANESHA) Association of [...] tests). Lab Interpretation Abnormal (test code = 55721-7) [facility]2021-01-11 11:46:00 Test Item Value Reference Range Interpretation Comments MAGNESIUM (test code = 9684207645) 1.9 mg/dL 1.7-2.4 Lab Interpretation (test code = Normal 89320-2) [facility]2021-01-11 10:58:00MAGNESIUMComment: Please disregard previous result value, patient results are inconsistent with previous results. Notified Dr. Macario Urbina, patient will be credited. This is a corrected result. ?Previous result was 1.3 mg/dL on 10/17/2020 at [address] [facility] [id number] 10:53:00 Test Item Value Reference Range Interpretation [...] RDW-SD (test code = 44.0 fL 39-49.9 84814-3) RDW-CV (test code = 13.0 % 12-15.5 788-0) PLT (test code = See_Comment L [Automated 777-3) message] The sy stem which generated this result transmitted reference range : 166 - 358 10*3/ ?L. The reference r irvin was not used to interpret this result as normal/abnormal . MPV (test code = 12.1 fL 9.5-12.9 27401-8) NRBC/100 WBC (test See_Comment [Automat ed code = 4163722249) message] The system which generated this result transmitted reference range : 0.0 - 10.0 /100 WBCs. The refer ence range was not u sed to interpret th is result as normal/abnormal . NRBC x10^3 (test code <0.01 See_Comment [Auto mated = 0638574004) message] The s ystem which generated this result transmitted reference range : 10*3/?L. The reference range was not used to interpret this result as normal/abnormal . GRAN MAT (NEUT) % 72.8 % (test code = 770-8) IMM GRAN % (test code 0.60 % = 7586793153) LYMPH % (test code = 12.5 % 736-9) MONO % (test code = 11.9 % 5905-5) EOS % (test code = 1.9 % 713-8) BASO % (test code = 0.3 % 706-2) GRAN MAT x10^3(ANC) 2.63 10*3/uL 1.88-7.09 (test code = 5808347939) IMM GRAN x10^3 (test <0.03 0-0.06 code = 6360797220) LYMPH x10^3 (test code 0.45 10*3/uL 1.32-3.29 L = 731-0) MONO x10^3 (test code 0.43 10*3/uL 0.33-0.92 = 742-7) EOS x10^3 (test code = 0.07 10*3/uL 0.03-0.39 711-2) BASO x10^3 (test code <0.03 0.01-0.07 = 704-7) Lab Interpretation Abnormal (test code = 09926-9) [facility] HospitalBODY FLUID DIRECT [id number] 08:48:00 Test Item Value Reference Range Interpretation Comments BF COLOR (test code = Clear 2661564489) BF WBC Count (test See_Comment [Automat ed message] The code = 5151771803) system [facility] generated this result transmit carol reference range : 0 - 5 /?L. The reference r irvin was not used to interpr et this result as anoop l/abnormal. BF RBC Count (test See_Comment [Automat ed message] The code = 5570914925) system [facility] generated this result transmit carol reference range : /?L. The reference range was not used to interpr et this result as anoop l/abnormal. [facility] HospitalBODY FLUID MANUAL [id number] 08:48:00 Test Item Value Reference Range Interpretation Comments BF SEGS (test code = 0381077016) 1 % 0-7 BF LYMPHS (test code = 4093020311) 18 % 28-96 L MACROPHAGE (test code = 2290413280) 6 % 16-56 L #CELS CNTD (test code = 9447274039) Lab Interpretation (test code = Abnormal 25321-9) [facility] HospitalCerebrospinal Fluid [id number] 08:27:00 Test Item Value Reference Range Interpretation Comments GLU CSF (test code = 72 mg/dL 50-80 1534618665) UNSPUN BODY FLUID Colorless COLOR (test code = 2574284905) UNSPUN BODY FLUID Clear CLARITY (test code = 4493904711) SPUN BODY FLUID COLOR Colorless (test code = 5354142410) SPUN BODY FLUID Clear CLARITY (test code = 1825546956) Sediment (test code = The sediment volume is 9696006665) <0.01 mL of the total fluid volume of 2.5 mLs and its color is red. [facility] HospitalCerrospinal Fluid [id number] 08:27:00 Test Item Value Reference Range Interpretation Comments T. PRO CSF (test code = 56.0 mg/dL 15-45 H 4084804731) UNSPUN BODY FLUID COLOR Colorless (test code = 0358655923) UNSPUN BODY FLUID CLARITY Clear (test code = 5509806414) SPUN BODY FLUID COLOR Colorless (test code = 0909259001) SPUN BODY FLUID CLARITY Clear (test code = 7975054290) Sediment (test code = The sediment volume 6273267305) is <0.01 mL of the total fluid volume of 2.5 mLs and its color is red. Lab Interpretation (test Abnormal code = 04083-0) [facility] HospitalGLUCOSE, URINE [id number] 05:19:00 Test Item Value Reference Range Interpretation Comments GLU URINE (test code = <20 See_Comment [Aut omated message] 8980254196) The system [employer] generated this result transmitted ref erence range: <30 mg/d L. The reference range was not used to int erpret this result as normal/abnormal . Lab Interpretation (test Normal code = 65432-7) [facility] HospitalElectroencephalogram (EEG) - Duration of test: 20-60 [id number] 00:00:00Date and Time of Procedure: 10/17/2020, 8:49:37 [...] Pina Cobos Rai, MD Date of interpretation: [facility]17[facility]2020[facility] [id number] 22:27:44 FINDINGS/IMPRESSION: Only diffusion-weighted sequences were obtained and are markedly degradedby artifact. No diffusion restriction identified within the limitations of the scan. Thescan is a still clinically needed, repeat under sedation/anesthesia isrecommended.EXAM: MR BRAIN WO CONTRAST HISTORY: Altered level of consciousness (LOC), unexplained TECHNIQUE: Only diffusion-weighted sequences of the brain were obtained. COMPARISON: CT head dated 10/13/2020. [facility], Radiant Results Inft User - 10/16/2020 4:28 PM CSTEXAM: MR BRAIN WO CONTRASTHISTORY: Altered level of consciousness (LOC), unexplained TECHNIQUE: Only diffusion-weighted sequences of the brain were obtained.COMPARISON: CT head dated 10/13/2020.IMPRESSIONFINDINGS/IMPRESSION:Only diffusion-weighted sequences were obtained and are markedly degradedby artifact.No diffusion restriction identified within the limitations of the scan. Thescan is a still clinically needed, repeat under sedation/anesthesia isrecommended.[facility] HospitalVITAMIN B1, [id number] 14:34:00 Test Item Value Reference Range Interpretation Comments VIT B1 (test code = 25 nmol/L 4-15 H INTERPRE TIVE DATA: ) Vitamin B1, Trevor sma Thiamine (vitam in B1) is reported. Ho margareth, thiamine diphos phate (TDP), the biologically ac tive form of thiamin e, is not found in measurable concentrations in plasma, and is best determined in w hole blood specimens . Plasma thiamine concentration r eflects recent intake r ather than body store s. Test developed and characteristics determined by [facility] S ee Compliance Stat ement B: Track the Bet/CSP erforme d By: [employer] [place] [id number] Director: Sherry Murillo MD Lab Interpretation Abnormal (test code = 44064-4) [facility] HospitalCORTISOL [id number] 12:42:00 Test Item Value Reference Range Interpretation Comments HIRA AM (test code = 21.3 ug/dL 4.5-23 9824217085) TANESHA (test code = TANESHA) Biotin has been reported to cause a positive bias, interpret results relative to patient's use of biotin. Lab Interpretation (test Normal code = 95203-6) [facility] HospitalBASIC METABOLIC PANEL (NA, K, CL, CO2, GLUCOSE, BUN, CREATININE, CA)2020-10-16 12:10:00 Test Item Value Reference Range Interpretation Comments NA (test code = 131 mmol/L 135-145 L 1938977782) K (test code = 3.6 mmol/L 3.5-5 0558234086) CL (test code = 99 mmol/L 98-108 9227026574) CO2 TOTAL (test code = 28 mmol/L 23-31 1791212473) AGAP (test code = 2-16 6587606443) BUN (test code = 7 mg/dL 7-23 3553126038) GLUCOSE (test code = 124 mg/dL 70-110 H 0448273594) CREATININE (test code = 0.34 mg/dL 0.5-1.04 L 9491205554) CALCIUM (test code = 8.3 mg/dL 8.6-10.6 L 9491959013) eGFR Calculation mL/min/1.73m2 (Non-) (test code = 7261922497) eGFR Calculation mL/min/1.73m2 () (test code = 3799048261) TANESHA (test code = TANESHA) Association of [...] tests). Lab Interpretation Abnormal (test code = 52720-4) [facility] HospitalCALCIUM, URINE [id number] 08:47:00 Test Item Value Reference Range Interpretation Comments CA URINE (test code = 2601970661) 32.4 mg/dL [facility] HospitalCREATININE, URINE [id number] 08:39:00 Test Item Value Reference Range Interpretation Comments CREAT U (test code = 1922962081) 23.3 mg/dL [facility] HospitalOSMOLALITY [id number] 08:38:00 Test Item Value Reference Range Interpretation Comments OSMO U (test code = See_Comment [Automa carol message] 4861421968) The system [employer] generated this result transmitted ref erence range: 50-1,100 mOsm/kg. The re ference range was not u sed to interpret this result as normal/abnor mal. Lab Interpretation (test Normal code = 73097-8) [facility] HospitalMAGNESIUM, URINE [id number] 08:37:00 Test Item Value Reference Range Interpretation Comments MG URINE (test code = 2563978526) 31.0 mg/dL [facility] HospitalPOTASSIUM, URINE [id number] 08:16:00 Test Item Value Reference Range Interpretation Comments K URINE (test code = 5601651247) 49.9 mmol/L [facility] HospitalSODIUM, URINE [id number] 08:16:00 Test Item Value Reference Range Interpretation Comments NA URINE (test code = 1847201015) 117 mmol/L [facility] HospitalCALCIUM, URINE [id number] 01:45:00 Test Item Value Reference Range Interpretation Comments CA URINE (test code = 9061555865) 34.2 mg/dL [facility] HospitalMAGNESIUM2021-01-10 00:29:00 Test Item Value Reference Range Interpretation Comments MAGNESIUM (test code = 2956311799) 3.3 mg/dL 1.7-2.4 H Lab Interpretation (test code = Abnormal 71439-7) [facility] HospitalSODIUM, URINE [id number] 00:00:00 Test Item Value Reference Range Interpretation Comments NA URINE (test code = 4028476775) 127 mmol/L [facility] HospitalBASI METABOLIC PANEL (NA, K, CL, CO2, GLUCOSE, BUN, CREATININE, CA)2020-10-15 22:22:00 Test Item Value Reference Range Interpretation Comments NA (test code = 130 mmol/L 135-145 L 9907941259) K (test code = 3.3 mmol/L 3.5-5 L 8249214944) CL (test code = 97 mmol/L 98-108 L 4381386001) CO2 TOTAL (test code = 28 mmol/L 23-31 5609356839) AGAP (test code = 2-16 9695915944) BUN (test code = 5 mg/dL 7-23 L 1871524407) GLUCOSE (test code = 144 mg/dL 70-110 H 8048097795) CREATININE (test code = 0.37 mg/dL 0.5-1.04 L 5524808278) CALCIUM (test code = 8.1 mg/dL 8.6-10.6 L 8792168257) eGFR Calculation mL/min/1.73m2 (Non-) (test code = 6805954508) eGFR Calculation mL/min/1.73m2 () (test code = 6593995615) TANESHA (test code = TANESHA) Association of [...] tests). Lab Interpretation Abnormal (test code = 23451-5) [facility] [id number] 15:30:00 Test Item Value Reference Range Interpretation Comments OSMOLALITY (test code = See_Comment L [Au tomated message] 1914823283) The system [employer] generated this result transmitted ref erence range: 278 - 30 5 mOsm/kg. The reference range was not used to int erpret this result as normal/abnormal . Lab Interpretation (test Abnormal code = 32610-3) [facility] HospitalMAGNESIUM2021-01-09 12:04:00 Test Item Value Reference Range Interpretation Comments MAGNESIUM (test code = 4678475871) 1.5 mg/dL 1.7-2.4 L Lab Interpretation (test code = Abnormal 79348-7) [facility] HospitalPHOSPHORUS2021-01-09 12:04:00 Test Item Value Reference Range Interpretation Comments PHOSPHORUS (test code = 2570534032) 2.4 mg/dL 2.5-5 L Lab Interpretation (test code = Abnormal 56938-1) [facility] (NA, K, CL, CO2, GLUCOSE, BUN, CREATININE, CA)2020-10-15 12:04:00 Test Item Value Reference Range Interpretation Comments NA (test code = 129 mmol/L 135-145 L 8312613987) K (test code = 3.4 mmol/L 3.5-5 L 1643226273) CL (test code = 97 mmol/L 98-108 L 1878858352) CO2 TOTAL (test code = 27 mmol/L 23-31 4181276036) AGAP (test code = 2-16 4765201695) BUN (test code = 7 mg/dL 7-23 1412048836) GLUCOSE (test code = 101 mg/dL 70-110 0928864479) CREATININE (test code = 0.37 mg/dL 0.5-1.04 L 0456696347) CALCIUM (test code = 8.4 mg/dL 8.6-10.6 L 7301602640) eGFR Calculation mL/min/1.73m2 (Non-) (test code = 3384009400) eGFR Calculation mL/min/1.73m2 () (test code = 6754377610) TANESHA (test code = TANESHA) Association of [...] tests). Lab Interpretation Abnormal (test code = 45621-5) [facility] WITHOUT [id number] 11:51:00 Test Item Value Reference Range Interpretation Comments WBC (test code = 6690-2) See_Comment [A utomated message] The system [employer] generated this result transmit carol reference range : 4.30 - 11.10 10*3/?L. The reference range was not used to interpret this result as normal/abnormal . RBC (test code = 789-8) See_Comment L [Au tomated message] The system [employer] generated this result transmit carol reference range [...] 777-3) See_Comment [Au tomated message] The system [employer] generated this result transmit carol reference range : 166 - 358 10*3/?L. The reference range was not used to interpret this result as normal/abnormal . MPV (test code = 11.8 fL 9.5-12.9 84798-0) RDW-CV (test code = 12.6 % 12-15.5 788-0) RDW-SD (test code = 41.1 fL 39-49.9 32247-4) NRBC x10^3 (test code = <0.01 See_Comment [Au tomated message] 9959913681) The system [employer] generated this result transmit carol reference range : 10*3/?L. The reference range was not used to interpret this result as normal/abnormal . NRBC/100 WBC (test code See_Comment [Au tomated message] = 4556020850) The system [employer] generated this result transmit carol reference range : 0.0 - 10.0 /100 WBC s. The reference r irvin was not used to interpret this result as normal/abnormal . IPF % (test code = 9728126467) Lab Interpretation (test Abnormal code = 32343-6) [facility] HospitalXR CHEST 1 [id number] 03:35:17 No acute intrathoracic abnormality. Preliminary Report Dictated by Resident: William Villagomez MD., have reviewed this study and agree withthe above report.PROCEDURE: XR CHEST 1 CLINICAL INDICATION: tube placement COMPARISON: 10/13/2020 FINDINGS: [...] reviewed this study and agree withthe above report.[facility] HospitalXR [id number] 03:18:19 1. ?Dobbhoff tube tip in the [...] unremarkable.IMPRESSION1. Dobbhoff tube tip in the gastric body.[facility] HospitalBASIC [facility]OLIC PANEL (NA, K, CL, CO2, GLUCOSE, BUN, CREATININE, CA)2020-10-14 21:35:00 Test Item Value Reference Range Interpretation Comments NA (test code = 128 mmol/L 135-145 L 0712824313) K (test code = 3.4 mmol/L 3.5-5 L 6490792794) CL (test code = 95 mmol/L 98-108 L 5634568236) CO2 TOTAL (test code = 25 mmol/L 23-31 3690315510) AGAP (test code = 2-16 5138009620) BUN (test code = 4 mg/dL 7-23 L 8351165188) GLUCOSE (test code = 92 mg/dL 70-110 4173941456) CREATININE (test code = 0.36 mg/dL 0.5-1.04 L 3171322135) CALCIUM (test code = 8.8 mg/dL 8.6-10.6 0291168981) eGFR Calculation mL/min/1.73m2 (Non-) (test code = 8571345400) eGFR Calculation mL/min/1.73m2 () (test code = 1850084310) TANESHA (test code = TANESHA) Association of [...] tests). Lab Interpretation Abnormal (test code = 37081-9) [facility] (NA, K, CL, CO2, GLUCOSE, BUN, CREATININE, CA)2020-10-14 12:04:00 Test Item Value Reference Range Interpretation Comments NA (test code = 130 mmol/L 135-145 L 3039762629) K (test code = 2.7 mmol/L 3.5-5 LL 2935536749) CL (test code = 94 mmol/L 98-108 L 6959554795) CO2 TOTAL (test code = 32 mmol/L 23-31 H 1243426684) AGAP (test code = 2-16 0560557341) BUN (test code = 3 mg/dL 7-23 L 5933430313) GLUCOSE (test code = 105 mg/dL 70-110 0269503566) CREATININE (test code = 0.32 mg/dL 0.5-1.04 L 6939442180) CALCIUM (test code = 8.2 mg/dL 8.6-10.6 L 1288269318) eGFR Calculation mL/min/1.73m2 (Non-) (test code = 3516858060) eGFR Calculation mL/min/1.73m2 () (test code = 6420960216) TANESHA (test code = TANESHA) Association of [...] tests). Lab Interpretation Abnormal (test code = 79815-2) [facility] HospitalMAGNESIUM2021-01-08 11:58:00 Test Item Value Reference Range Interpretation Comments MAGNESIUM (test code = 9869808443) 1.9 mg/dL 1.7-2.4 Lab Interpretation (test code = Normal 87991-9) [facility] HospitalPHOSPHORUS2021-01-08 11:58:00 Test Item Value Reference Range Interpretation Comments PHOSPHORUS (test code = 7504569366) 2.0 mg/dL 2.5-5 L Lab Interpretation (test code = Abnormal 40232-2) [facility] HospitalCBC WITHOUT [id number] 11:36:00 Test Item Value Reference Range Interpretation Comments WBC (test code = 6690-2) See_Comment [A utomated message] The system [employer] generated this result transmit carol reference range : 4.30 - 11.10 10*3/?L. The reference range was not used to interpret this result as normal/abnormal . RBC (test code = 789-8) See_Comment L [Au tomated message] The system [employer] generated this result transmit carol reference range [...] 777-3) See_Comment [Au tomated message] The system [employer] generated this result transmit carol reference range : 166 - 358 10*3/?L. The reference range was not used to interpret this result as normal/abnormal . MPV (test code = 12.2 fL 9.5-12.9 47671-5) RDW-CV (test code = 12.4 % 12-15.5 788-0) RDW-SD (test code = 39.7 fL 39-49.9 36716-1) NRBC x10^3 (test code = <0.01 See_Comment [Au tomated message] 2799096057) The system [employer] generated this result transmit carol reference range : 10*3/?L. The reference range was not used to interpret this result as normal/abnormal . NRBC/100 WBC (test code See_Comment [Au tomated message] = 3208984074) The system [employer] generated this result transmit carol reference range : 0.0 - 10.0 /100 WBC s. The reference r irvin was not used to interpret this result as normal/abnormal . IPF % (test code = 9134575851) Lab Interpretation (test Abnormal code = 77536-0) [facility] HospitalAMMONIA, [id number] 23:07:00 Test Item Value Reference Range Interpretation Comments AMMONIA (test code = 8691141210) 19 umol/L 9-33 Lab Interpretation (test code = Normal 23550-5) [facility] METABOLIC PANEL (NA, K, CL, CO2, GLUCOSE, BUN, CREATININE, CA)2020-10-13 23:06:00 Test Item Value Reference Range Interpretation Comments NA (test code = 128 mmol/L 135-145 L 7063832309) K (test code = 2.4 mmol/L 3.5-5 LL 8133124895) CL (test code = 93 mmol/L 98-108 L 6429903134) CO2 TOTAL (test code = 30 mmol/L 23-31 5701827924) AGAP (test code = 2-16 8502789849) BUN (test code = 4 mg/dL 7-23 L 5822924561) GLUCOSE (test code = 127 mg/dL 70-110 H 2279323476) CREATININE (test code = 0.34 mg/dL 0.5-1.04 L 9925392226) CALCIUM (test code = 8.4 mg/dL 8.6-10.6 L 4605490935) eGFR Calculation mL/min/1.73m2 (Non-) (test code = 4984559219) eGFR Calculation mL/min/1.73m2 () (test code = 2268068701) TANESHA (test code = TANESHA) Association of [...] tests). Lab Interpretation Abnormal (test code = 16438-1) [facility] HospitalCREATINE [id number] 23:04:00 Test Item Value Reference Range Interpretation Comments CK (test code = 4730175207) 120 U/L 33-194 Lab Interpretation (test code = Normal 67305-2) [facility] [id number] 22:44:00 Test Item Value Reference Range Interpretation Comments FREE T4 (test code = See_Comment H [Autom ated message] 7305032916) The system [employer] generated this result transmitted ref erence range: 0.78 - 2 .20 ng/dL:. The ref erence range was not u sed to interpret this result as normal/abnor mal. Lab Interpretation (test Abnormal code = 49813-2) [facility] [id number] 22:44:00 Test Item Value Reference Range Interpretation Comments FREE T3 (test code = 6123522975) 3.44 pg/mL 2.77-5.27 Lab Interpretation (test code = Normal 25593-3) [facility] HospitalHEPATIC FUNCTION PANEL (39156) (ALB,T.PRO,BILI T,BU/BC,ALT,AST,ALK PHOS)2020-10-13 22:26:00 Test Item Value Reference Range Interpretation Comments TOTAL BILI (test code = 7866780372) 0.5 mg/dL 0.1-1.1 BILI UNCON (test code = 4652530885) 0.5 mg/dL 0.1-1.1 BILI CONJ (test code = 8610923450) 0.0 mg/dL 0-0.3 T PROTEIN (test code = 1473838326) 6.3 g/dL 6.3-8.2 ALBUMIN (test code = 1836680303) 4.0 g/dL 3.5-5 ALK PHOS (test code = 0224800683) 75 U/L 34-122 ALTv (test code = 1742-6) 52 U/L 5-35 H AST(SGOT) (test code = 2317364524) 49 U/L 13-40 H Lab Interpretation (test code = Abnormal 54440-2) [facility] HospitalPHENYTOIN [id number] 17:04:00 Test Item Value Reference Range Interpretation Comments PHENY FREE (test code 1.7 ug/mL 1-2 = 2407910544) TANESHA (test code = TANESHA) Toxic Range: ? Greater than 2.5 ug/mL Test developed and characteristics determined by [facility]. Lab Interpretation Normal (test code = 15507-6) [facility] HospitalChest 2 [id number] 16:43:20EXAM: XR CHEST 2 VW HISTORY: concern [...] panded andclear. They show nothing to suggest aspiration.[facility] HospitalHIV [facility]/2 AG-AB WITH [id number] 16:39:00 Test Item Value Reference Range Interpretation Comments HIV Negative Negative Semi-quantitative (test code = 05568-2) TANESHA (test code = Non-reactive for HIV-1 TANESHA) antigen and HIV-1/HIV-2 antibodies. ?No laboratory evidence of HIV infection. ?Repeat in 2-4 weeks if acute HIV infection is suspected. [facility]GAL[facility] ONLY - SYPHILIS IGG/[id number] 16:13:00 Test Item Value Reference Range Interpretation Comments Syphilis IgG/IgM (test Non-reactive Non-reactive code = 16233-0) TANESHA (test code = TANESHA) Non-reactive - No serologic evidence of T. pallidum infection. Cannot exclude incubating or early syphilis. Submit a second specimen in 2-4 weeks if syphilis is clinically suspected. Equivocal - Further testing to follow. Reactive - Further testing to follow. Lab Interpretation (test Normal code = 75288-1) [facility] HospitalLAB ONLY COVID [id number] 15:25:00COVID DMT InterpretationInterpretation/Recommendations: Molecular NAAT Tests for [...] illness onset will indicate whether the patient hasproduced antibodies to the virus. At this time, it is not known if the production of antibodies - specifically IgG antibodies - indicates whether the patient is immune to future infections with the SARS-CoV-2 virus. ? ? Interpretation Result Comments:These interpretation comments are based upon all COVID-19 testing the patient has had at [facility], including molecular NAAT testing (more commonly known as PCR testing and Rapid ID Now testing) and antibody testing. It does not take into account any testing that a patient has had outsid e of the [facility] medical record. [facility] LABORATORY SERVICESCOVID BwnhobsBLEL-GpZ-4 Rapid ID NOW (no units) ? ? Date ? Value ? 10/11/2020 ? Not Detected ? [facility] LABORATORY SERVICES [facility] HospitalCT HEAD WO [id number] 15:08:15 No acute intracranial abnormality. Preliminary Report [...] noted. Right frontal sinus is underpne umatized. [facility], Radiant Results Inft User - [...] reviewed this study and agree with theabove report.[facility] HospitalVitamin B12 [id number] 13:28:00 Test Item Value Reference Range Interpretation Comments VIT B12 (test code = 988 pg/mL 240-930 H 7595304685) TANESHA (test code = TANESHA) Biotin has been reported to cause a positive bias, interpret results relative to patient's use of biotin. Lab Interpretation (test Abnormal code = 24406-5) [facility] HospitalThyroid Stimulating Rnwawpz3607-07-79 13:10:00 Test Item Value Reference Range Interpretation Comments TSH (test code = See_Comment L [Automated message] 0816286005) The system SamEnrico generated this result transmitted ref erence range: 0.45 - 4 .70 mIU/L. The refe rence range was not u sed to interpret this result as normal/abnor mal. Lab Interpretation (test Abnormal code = 08314-1) [facility] HospitalTroponin [id number] 12:52:00 Test Item Value Reference Range Interpretation Comments TROPONIN I (test 0.006 ng/mL See_Comment [Automated code = 2890199429) message] The system which generated this result [...] ? Lab Interpretation Normal (test code = 55156-4) [facility] HospitalMagnesium Ulzsg8214-68-74 12:40:00 Test Item Value Reference Range Interpretation Comments MAGNESIUM (test code = 4507470786) 1.6 mg/dL 1.7-2.4 L Lab Interpretation (test code = Abnormal 08337-5) [facility] Drug (Immunoassay) - Comprehensive Drug Ivqvfn9525-80-00 12:36:00 Test Item Value Reference Range Interpretation Comments MICHEL S (test code = Negative Negative 5104919101) BENZO S (test code = Presumptive Positive Negative A 6560406760) TRICYCLIC (test code = Negative Negative 8325715779) TANESHA (test code = TANESHA) Serum Drug Screen Cutoff Ranges Barbiturates ? ? - 3 mcg/mLBenzodiazepines ?- 50 ng/mLTCA ?- 300 ng/mL Test developed and characteristics determined by [facility] Laboratory Services. The results are to be used only for medical (i.e., treatment) purposes. Unconfirmed screening results must not be used for non-medical purposes (e.g., employment testing, legal testing). Lab Interpretation Abnormal (test code = 94633-3) [facility] Metabolic Panel (Na, K, Cl, CO2, Glucose, BUN, Creatinine, Ca)2020-10-13 12:04:00 Test Item Value Reference Range Interpretation Comments NA (test code = 130 mmol/L 135-145 L 9186663022) K (test code = 2.6 mmol/L 3.5-5 LL 2937533367) CL (test code = 94 mmol/L 98-108 L 7060012764) CO2 TOTAL (test code = 33 mmol/L 23-31 H 3796703196) AGAP (test code = 2-16 3625086388) BUN (test code = 4 mg/dL 7-23 L 0952165497) GLUCOSE (test code = 137 mg/dL 70-110 H 5553323378) CREATININE (test code = 0.33 mg/dL 0.5-1.04 L 2325226547) CALCIUM (test code = 8.6 mg/dL 8.6-10.6 9428883242) eGFR Calculation mL/min/1.73m2 (Non-) (test code = 6699440957) eGFR Calculation mL/min/1.73m2 () (test code = 4393293532) TANESHA (test code = TANESHA) Association of [...] tests). Lab Interpretation Abnormal (test code = 53449-9) [facility] HospitalPhosphorus [id number] 11:52:00 Test Item Value Reference Range Interpretation Comments PHOSPHORUS (test code = 9908592848) 2.5 mg/dL 2.5-5 Lab Interpretation (test code = Normal 93275-2) [facility] HospitalCreatine Kinase (CK)2020-10-13 11:52:00 Test Item Value Reference Range Interpretation Comments CK (test code = 7400553228) 210 U/L 33-194 H Lab Interpretation (test code = Abnormal 84134-6) [facility] HospitalProthrombin Time (PT) / [id number] 11:29:00 Test Item Value Reference Range Interpretation [...] tions. Lab Interpretation (test Normal code = 73365-4) [facility] HospitalCBC with Dlgllualvhjo9548-70-06 11:27:00 Test Item Value Reference Range Interpretation Comments WBC (test code = See_Comment [Automated 5190-2) message] The sy stem which generated this result transmitted reference range : 4.30 - 11.10 10*3/?L. The reference range was not used to interpret this result as normal/abnormal . RBC (test code = See_Comment L [Automated 189-8) message] The sy stem which generated this [...] RDW-SD (test code = 40.8 fL 39-49.9 68634-8) RDW-CV (test code = 12.5 % 12-15.5 788-0) PLT (test code = See_Comment [Automated 777-3) message] The sy stem which generated this result transmitted reference range : 166 - 358 10*3/ ?L. The reference r irvin was not used to interpret this result as normal/abnormal . MPV (test code = 11.8 fL 9.5-12.9 93086-6) NRBC/100 WBC (test See_Comment [Automat ed code = 3109532343) message] The system which generated this result transmitted reference range : 0.0 - 10.0 /100 WBCs. The refer ence range was not u sed to interpret th is result as normal/abnormal . NRBC x10^3 (test code <0.01 See_Comment [Auto mated = 3986488158) message] The s ystem which generated this result transmitted reference range : 10*3/?L. The reference range was not used to interpret this result as normal/abnormal . GRAN MAT (NEUT) % 77.8 % (test code = 770-8) IMM GRAN % (test code 0.40 % = 5173686549) LYMPH % (test code = 9.6 % 736-9) MONO % (test code = 12.1 % 5905-5) EOS % (test code = 0.0 % 713-8) BASO % (test code = 0.1 % 706-2) GRAN MAT x10^3(ANC) 5.61 10*3/uL 1.88-7.09 (test code = 4681783649) IMM GRAN x10^3 (test 0.03 10*3/uL 0-0.06 code = 2456189921) LYMPH x10^3 (test code 0.69 10*3/uL 1.32-3.29 L = 731-0) MONO x10^3 (test code 0.87 10*3/uL 0.33-0.92 = 742-7) EOS x10^3 (test code = <0.03 0.03-0.39 L 711-2) BASO x10^3 (test code <0.03 0.01-0.07 = 704-7) Lab Interpretation Abnormal (test code = 09401-4) [facility] HospitalElectroencephalogram (EEG) - Duration of test: 20-60 qpuf7904-43-95 00:00:00Date and Time of Procedure: 10/13/2020, 9:30:14- [...] sleep. Orlando Shea MD Date of interpretation: 10/13/2020[facility]2020-10-12 13:39:00 Test Item Value Reference Range Interpretation Comments POCT GLU (test code = 8887521576) 165 mg/dL 70-110 H Lab Interpretation (test code = Abnormal 46997-5) [facility] GLUCOSE (AUTOMATED)2020-10-12 06:20:00 Test Item Value Reference Range Interpretation Comments POCT GLU (test code = 7444589942) 79 mg/dL 70-110 Lab Interpretation (test code = Normal 33096-6) [facility] HospitalCOVID-19 (ID NOW RAPID TESTING)2020-10-12 06:10:00 Test Item Value Reference Range Interpretation Comments SARS-CoV-2 Rapid ID NOW Not Detected Not Detected (test code = 34014-5) TANESHA (test code = TANESHA) ID NOW COVID-19 Assay is an isothermal nucleic acid amplification test intended for the qualitative detection of nucleic acid from SARS-CoV-2 viral RNA in nasopharyngeal (MEDICATION RECONCILIATION TECHNICIAN) specimens. It is used under Emergency Use [...] indicated. Lab Interpretation Normal (test code = 74690-2) [facility] HEAD WO [id number] 04:49:02 Within the limitations of motion artifact, [...] modifications:Significantly motion degraded exam. Recommend repeat examination. IArnel MD., have reviewed this study and agree with theabovereport.[facility] HospitalURINALYSIS2021-01-06 02:27:00 Test Item Value Reference Range Interpretation Comments APPEARANCE (test code = Hazy Clear A 1872143279) COLOR (test code = Yellow Yellow 0902193130) PH (test code = 4.8-8.0 1074464894) SP GRAVITY (test code = >=1.030 1.003-1.030 3172173445) GLU U QUAL (test code = Negative Negative 8279004014) BLOOD (test code = Moderate Negative A 7343638438) KETONES (test code = >80 mg/dL Negative A 5422912167) PROTEIN (test code = Negative Negative 2887-8) UROBILIN (test code = 0.2 mg/dL See_Comment [Auto mated message] 0991726025) The system SamEnrico generated this result transmit carol reference range : 0-1.0 mg/dL. Th e reference range was not used to interpret this result as normal/abnormal . BILIRUBIN (test code = Negative Negative 8320616020) NITRITE (test code = Negative Negative 1199581507) LEUK EDINSON (test code = Negative Negative 2548463686) RBC/HPF (test code = See_Comment [Autom ated message] 4969223781) The system SamEnrico generated this result transmit carol reference range : 0 - 3 HPF. The refe rence range was not u sed to interpret th is result as normal/abnormal . WBC/HPF (test code = See_Comment [Autom ated message] 1952164858) The system SamEnrico generated this result transmit carol reference range : 0 - 5 HPF. The refe rence range was not u sed to interpret th is result as normal/abnormal . BACTERIA (test code = Few Negative A 9904849416) MUCOUS (test code = Slight Negative LPF A 2076386060) Lab Interpretation (test Abnormal code = 71605-6) [facility]. METABOLIC PANEL (02147)2020-10-12 02:14:00 Test Item Value Reference Range Interpretation Comments NA (test code = 135 mmol/L 135-145 3699460101) K (test code = 3.6 mmol/L 3.5-5 4840097014) CL (test code = 96 mmol/L 98-108 L 6578261732) CO2 TOTAL (test code = 23 mmol/L 23-31 2179784403) AGAP (test code = 2-16 7379421904) BUN (test code = 17 mg/dL 7-23 0668161927) GLUCOSE (test code = 93 mg/dL 70-110 8214788344) CREATININE (test code = 0.45 mg/dL 0.5-1.04 L 1831955961) TOTAL BILI (test code = 0.8 mg/dL 0.1-1.7 8632994032) CALCIUM (test code = 9.4 mg/dL 8.6-10.6 7782891259) T PROTEIN (test code = 7.7 g/dL 6.3-8.2 3385349857) ALBUMIN (test code = 5.0 g/dL 3.5-5 1922159651) ALK PHOS (test code = 92 U/L 34-122 6049956901) ALTv (test code = 64 U/L 5-35 H 1742-6) AST(SGOT) (test code = 66 U/L 13-40 H 9221570133) eGFR Calculation mL/min/1.73m2 (Non-) (test code = 1894396739) eGFR Calculation mL/min/1.73m2 () (test code = 8096105701) TANESHA (test code = TANESHA) Association of [...] tests). Lab Interpretation Abnormal (test code = 39438-0) [facility] - [facility] [id number] 01:41:00 Test Item Value Reference Range Interpretation Comments BENZO U (test code = Presumptive Positive Negative A 4188873262) MICHEL U (test code = Negative Negative 7488697065) AMPHET (test code = Negative Negative 5341151286) THC (test code = Negative Negative 9941433243) METHADONE (test code = Negative Negative 2821291618) Meth U (test code = Negative Negative 5061138651) OPIATES (test code = Negative Negative 6048908506) Cocaine Metabolite (test Negative Negative code = 3330010500) PROPOXY (test code = Negative Negative 4691581529) Tric U (test code = Negative Negative 1702277401) PCP (test code = Negative Negative 6375033718) OXYCOD (test code = Negative Negative 8894508200) TANESHA (test code = TANESHA) Urine Drug [...] testing). Lab Interpretation (test Abnormal code = 08453-3) [facility] HospitalACETAMINOPHEN2021-01-06 01:37:00 Test Item Value Reference Range Interpretation Comments ACETAMINOP (test code = <10.0 10-30 L 6427478311) TANESHA (test code = TANESHA) Toxic: Greater than 200 ug/mL @ 4 hour post ingestion or greater than 50 ug/mL @ 12 hour post ingestion Lab Interpretation (test Abnormal code = 85231-2) [facility] HospitalSALICYLATE2021-01-06 01:36:00 Test Item Value Reference Range Interpretation Comments SALICYLATE (test code <10 mg/L = 7865871476) TANESHA (test code = TANESHA) Therapeutic Range: ? Analgesic and Antipyretic Use ? 20-100 mg/L ? ? Anti-Inflammatory Use ? 100-250 mg/L Toxic Range: ? Greater than 300 mg/L [facility] HospitalETHANOL2021-01-06 01:35:00 Test Item Value Reference Range Interpretation Comments ALCOHOL (test code = <10 mg/dL 4987772029) TANESHA (test code = TANESHA) <10 Rlvzfaef68-842 Toxic>100 Depression of CASE MANAGEMENT RN>400 Fatalities Reported [facility] HospitalAMMONIA, [id number] 01:12:00 Test Item Value Reference Range Interpretation Comments AMMONIA (test code = <9 9-33 L Slight hemolysis 7100547760) Lab Interpretation (test Abnormal code = 61534-9) [facility] HospitalUrinalysis2019-09-02 16:31:00 Test Item Value Reference Range Interpretation Comments APPEARANCE (test code = Clear Clear 3146199274) COLOR (test code = Yellow Yellow 0233316949) PH (test code = 4.8-8.0 1879862867) SP GRAVITY (test code = <=1.005 1.003-1.030 4450901103) GLU U QUAL (test code = Negative Negative 1227149100) BLOOD (test code = Negative Negative 6619905422) KETONES (test code = Negative Negative 5566155800) PROTEIN (test code = Negative Negative 2887-8) UROBILIN (test code = 0.2 mg/dL See_Comment [Auto mated message] 3465880185) The system SamEnrico generated this result transmit carol reference range : 0-1.0 mg/dL. Th e reference range was not used to interpret this result as normal/abnormal . BILIRUBIN (test code = Negative Negative 7164625856) NITRITE (test code = Negative Negative 4423142460) LEUK EDINSON (test code = Negative Negative 8281256046) RBC/HPF (test code = See_Comment [Autom ated message] 5382564709) The system SamEnrico generated this result transmit carol reference range : 0 - 3 HPF. The refe rence range was not u sed to interpret th is result as normal/abnormal . WBC/HPF (test code = See_Comment [Autom ated message] 3194660069) The system SamEnrico generated this result transmit carol reference range : 0 - 5 HPF. The refe rence range was not u sed to interpret th is result as normal/abnormal . BACTERIA (test code = Negative Negative 7394662914) Lab Interpretation (test Normal code = 86441-9) [facility] (NA, K, CL, CO2, GLUCOSE, BUN, CREATININE, CA)2019-06-08 16:00:00 Test Item Value Reference Range Interpretation Comments NA (test code = 140 mmol/L 135-145 7914919198) K (test code = 3.7 mmol/L 3.5-5 9378082312) CL (test code = 99 mmol/L 98-108 2218308488) CO2 TOTAL (test code = 27 mmol/L 23-31 2887495505) AGAP (test code = 2-16 3618861545) BUN (test code = 12 mg/dL 7-23 4200147361) GLUCOSE (test code = 94 mg/dL 70-110 9254322927) CREATININE (test code 0.61 mg/dL 0.5-1.04 = 1186861211) CALCIUM (test code = 9.4 mg/dL 8.6-10.6 1541355203) eGFR Calculation mL/min/1.73m2 (Non-) (test code = 0128518055) eGFR Calculation mL/min/1.73m2 () (test code = 5814596069) TANESHA (test code = TANESHA) Association of [...] or urine or abnormalities in imaging tests). [facility] HospitalLipase Jbvpe0212-36-01 16:00:00 Test Item Value Reference Range Interpretation Comments LIPASE (test code = 4414800114) 120 U/L 0-220 Lab Interpretation (test code = Normal 64373-4) [facility] HospitalHepatic Function Panel (ALB, T.PRO, BILI T, BU/BC, ALT, AST, ALK PHOS)2019-06-08 15:59:00 Test Item Value Reference Range Interpretation Comments TOTAL BILI (test code = 4437414436) 0.4 mg/dL 0.1-1.1 BILI UNCON (test code = 9142381672) 0.2 mg/dL 0.1-1.1 BILI CONJ (test code = 1356332077) 0.0 mg/dL 0-0.3 T PROTEIN (test code = 3811967490) 7.7 g/dL 6.3-8.2 ALBUMIN (test code = 5313654763) 4.8 g/dL 3.5-5 ALK PHOS (test code = 1884426655) 86 U/L 34-122 ALT(SGPT) (test code = 0480568660) 21 U/L 9-51 AST(SGOT) (test code = 4670245557) 28 U/L 13-40 Lab Interpretation (test code = Normal 29433-5) [facility] HospitalCBC WITH [id number] 15:47:00 Test Item Value Reference Range Interpretation Comments WBC (test code = See_Comment [Automated message] 6690-2) The system SamEnrico generated this result transmitted ref erence range: 4.30 - 1 1.10 10*3/?L. The re ference range was not u sed to interpret this result as normal/abnor mal. RBC (test code = See_Comment [Automated message] 789-8) The system SamEnrico generated this result transmitted ref erence range: [...] RDW-SD (test code 43.8 fL 39-49.9 = 76989-3) RDW-CV (test code 12.6 % 12-15.5 = 788-0) PLT (test code = See_Comment [Automated message] 777-3) The system [employer] generated this result transmitted ref erence range: 166 - 35 8 10*3/?L. The re ference range was not u sed to interpret this result as normal/abnor mal. MPV (test code = 10.6 fL 9.5-12.9 37342-3) NRBC/100 WBC (test See_Comment [Automat ed message] code = 0829876480) The syste m which generated this result transmitted ref erence range: 0.0 - 10 .0 /100 WBCs. The refer ence range was not u sed to interpret this result as normal/abnor mal. NRBC x10^3 (test <0.01 See_Comment [Automated message] code = 7535326000) The syste m which generated this result transmitted ref erence range: 10*3/?L. The reference range was not used to interpr et this result as normal/abnormal . GRAN MAT (NEUT) % 50.2 % (test code = 770-8) IMM GRAN % (test 0.40 % code = 3410523843) LYMPH % (test code 33.0 % = 736-9) MONO % (test code 10.8 % = 5905-5) EOS % (test code = 4.3 % 713-8) BASO % (test code 1.3 % = 706-2) GRAN MAT 2.33 10*3/uL 1.88-7.09 x10^3(ANC) (test code = 0731445616) IMM GRAN x10^3 <0.03 0-0.06 (test code = 0236366064) LYMPH x10^3 (test 1.53 10*3/uL 1.32-3.29 code = 731-0) MONO x10^3 (test 0.50 10*3/uL 0.33-0.92 code = 742-7) EOS x10^3 (test 0.20 10*3/uL 0.03-0.39 code = 711-2) BASO x10^3 (test 0.06 10*3/uL 0.01-0.07 code = 704-7) [facility] HospitalCHEMISTRY2012-05-10 14:11:00 Test Item Value Reference Range Interpretation Comments Phosphorus (test code = Phosphorus) 3.3 2.5-4.[address] [facility]OwiyrmaOPVRLITCR4723-65-75 14:11:00 Test Item Value Reference Range Interpretation Comments Magnesium Lvl (test code = Magnesium 2.0 1.8-2.4 N Lvl) [facility] HospitalZdqwoteBHZFYPWNK3756-45-23 14:11:00 Test Item Value Reference Range Interpretation Comments A/G Ratio (test code = A/G Ratio) 1.3 0.7-1.[address] [facility] HospitalKablzknKOAIKNBJM6772-46-08 14:11:00 Test Item Value Reference Range Interpretation Comments Globulin (test code = Globulin) 2.9 2.0-4.[address] [facility] HospitalGyblqedNFULBSZDJ3927-44-66 14:11:00 Test Item Value Reference Range Interpretation Comments Bili Indirect (test 0.1 See_Comment N [Automa carol message] The code = Bili Indirect) system which generated this result tra nsmitted reference range : <=1.0. The reference r irvin was not used to int erpret this result as normal/abnormal . [facility] HospitalKavyfpgKCIYPAGAY5692-31-05 14:11:00 Test Item Value Reference Range Interpretation Comments AST (test code = AST) 24 See_Comment N [Auto mated message] The system which ge nerated this result transmit carol reference range : <=37. The reference range was not used to interpr et this result as anoop l/abnormal. [place] 529972-05-10 14:11:00 Test Item Value Reference Range Interpretation Comments ALT (test code = ALT) 35 See_Comment N [Auto mated message] The system which ge nerated this result transmit carol reference range : <=65. The reference range was not used to interpr et this result as anoop l/abnormal. [facility] HospitalLguhjhuCYZHNTDHI7625-33-18 14:11:00 Test Item Value Reference Range Interpretation Comments Albumin Lvl (test code = Albumin Lvl) 3.9 3.5-5.[address] [facility] HospitalOxukwpzRMAVDCPVJ7863-76-53 14:11:00 Test Item Value Reference Range Interpretation Comments Bili Total (test code = Bili Total) 0.2 0.2-1.[address] [facility] HospitalDhtnnvaKPPWQNYRZ4313-53-34 14:11:00 Test Item Value Reference Range Interpretation Comments Alk Phos (test code = Alk Phos) 88 39-[address] [facility] HospitalRxugqtjBOMJJSVMK4160-49-06 14:11:00 Test Item Value Reference Range Interpretation Comments Bili Direct (test code 0.1 See_Comment N [Aut omated message] The = Bili Direct) system which generated this result tra nsmitted reference range : <=0.3. The reference r irvin was not used to int erpret this result as anoop l/abnormal. [facility] HospitalRbdpgqbTGZFIFQTX0959-97-16 14:11:00 Test Item Value Reference Range Interpretation Comments Total Protein (test code = Total 6.8 6.4-8.4 N Protein) [facility] HospitalWrzyuvoZXHDDJJSS7578-37-71 14:11:00 Test Item Value Reference Range Interpretation Comments Lipase Lvl (test code = Lipase Lvl) 120 73-[address] [facility] HospitalDwvdyqmMDPGJAVLR3040-21-60 14:11:00 Test Item Value Reference Range Interpretation Comments Calcium Lvl (test code = Calcium Lvl) 9.0 8.5-10.[address] [facility] HospitalKouemyoPLCNRJLHV1815-73-14 14:11:00 Test Item Value Reference Range Interpretation Comments Chloride Lvl (test code = Chloride Lvl) 103 95-[address] [facility] HospitalIovavluQJNVWGQPR5704-71-06 14:11:00 Test Item Value Reference Range Interpretation Comments CO2 (test code = CO2) 32 24-[address] [facility] HospitalMzznxtfOZXRVDROD1386-31-65 14:11:00 Test Item Value Reference Range Interpretation Comments Glucose Lvl (test code = Glucose Lvl) 96 70-[address] [facility] HospitalEtcrlpwOMDRCATIZ1511-32-38 14:11:00 Test Item Value Reference Range Interpretation Comments BUN (test code = BUN) 9 7-[address] [facility] HospitalQoixrxcNVHTSZMQS1668-95-14 14:11:00 Test Item Value Reference Range Interpretation Comments Creatinine Lvl (test code = Creatinine 0.8 0.5-1.4 N Lvl) [facility] HospitalKjuahsiROPUNBEOW8250-99-98 14:11:00 Test Item Value Reference Range Interpretation Comments Potassium Lvl (test code = Potassium 3.9 3.5-5.1 N Lvl) [facility] HospitalCufkcjwHCHTPILYD5701-56-62 14:11:00 Test Item Value Reference Range Interpretation Comments Sodium Lvl (test code = Sodium Lvl) 142 135-[address] [facility] HospitalGylgvpxTBCWTUYNE4838-96-63 14:11:00 Test Item Value Reference Range Interpretation Comments AGAP (test code = AGAP) 10.9 10.0-20.0 N [facility]stUyvczhdVXAKPPOIYW8537-37-10 14:11:00 Test Item Value Reference Range Interpretation Comments Monocytes (test code = Monocytes) 8.1 2.0-12.0 N [facility]stBupaqdkERFQYAOHQB4062-52-85 14:11:00 Test Item Value Reference Range Interpretation Comments Lymphocytes # (test code = Lymphocytes 1.8 1.0-5.5 N #) [facility]stQscflbpDQHJMXBYLQ0297-21-50 14:11:00 Test Item Value Reference Range Interpretation Comments Monocytes # (test code 0.4 See_Comment N [Aut omated message] The = Monocytes #) system which generated this result tra nsmitted reference range : <=0.8. The reference r irvin was not used to int erpret this result as normal/abnormal . [facility]stBoxqgimOFOFGISFQP7991-33-62 14:11:00 Test Item Value Reference Range Interpretation Comments Segs-Bands # (test code = Segs-Bands #) 2.9 1.5-8.1 N [facility]stFjrjmshCERZPQTWFA5604-06-57 14:11:00 Test Item Value Reference Range Interpretation Comments Basophils # (test code 0.0 See_Comment N [Aut omated message] The = Basophils #) system which generated this result tra nsmitted reference range : <=0.2. The reference r irvin was not used to int erpret this result as normal/abnormal . [facility]stOimfetwXCMCTSQLKD8178-05-70 14:11:00 Test Item Value Reference Range Interpretation Comments Eosinophils # (test code 0.1 See_Comment N [A utomated message] The = Eosinophils #) system whic h generated this result tra nsmitted reference range : <=0.5. The reference r irvin was not used to int erpret this result as normal/abnormal . [facility]stLirdhugORFXFZPMQV9614-97-33 14:11:00 Test Item Value Reference Range Interpretation Comments Lymphocytes (test code = Lymphocytes) 34.2 20.0-40.0 N [facility]stMajguakPUOLINVTTS8216-30-96 14:11:00 Test Item Value Reference Range Interpretation Comments Segs (test code = Segs) 54.7 45.0-75.0 N [facility]stVurpeoaXUIZOGZDYK7861-51-58 14:11:00 Test Item Value Reference Range Interpretation Comments Eosinophils (test code = 2.8 See_Comment N [A utomated message] The Eosinophils) system which ge nerated this result tra nsmitted reference range : <=4.0. The reference r irvin was not used to int erpret this result as normal/abnormal . [facility]stAiertalTJRWJNOAJO1601-27-23 14:11:00 Test Item Value Reference Range Interpretation Comments Basophils (test code = 0.2 See_Comment N [Aut omated message] The Basophils) system which ge nerated this result tra nsmitted reference range : <=1.0. The reference r irvin was not used to int erpret this result as normal/abnormal . [facility]stPprxakmFSPXMBACAQ3181-47-88 14:11:00 Test Item Value Reference Range Interpretation Comments MPV (test code = MPV) 8.6 7.4-10.4 N [facility]stJlqrtntGWZZKWHFHD5806-08-73 14:11:00 Test Item Value Reference Range Interpretation Comments Hgb (test code = Hgb) 11.6 12.0-16.0 L [facility]stMeumxhgPCFTEZOOIL1719-58-10 14:11:00 Test Item Value Reference Range Interpretation Comments WBC (test code = WBC) 5.2 3.7-10.4 N [facility]stRzehriiPICRMJGFEW4172-00-98 14:11:00 Test Item Value Reference Range Interpretation Comments RBC (test code = RBC) 3.86 4.20-5.40 L [facility]stWacphlnMSDBLDKQOZ8899-90-77 14:11:00 Test Item Value Reference Range Interpretation Comments Platelet (test code = Platelet) 187 133-450 N [facility]stDgmlmabWRHUOMSVLW4612-73-78 14:11:00 Test Item Value Reference Range Interpretation Comments RDW (test code = RDW) 13.5 11.5-14.5 N [facility]stQwlhrwiFNFPBBGXZI2779-53-97 14:11:00 Test Item Value Reference Range Interpretation Comments Hct (test code = Hct) 34.3 36.0-48.0 L [facility]stAmcmbfyRLVIZERXMN1908-92-73 14:11:00 Test Item Value Reference Range Interpretation Comments MCHC (test code = MCHC) 33.7 32.0-36.0 N [facility]stSloigqqRMEEBORFHD1019-30-86 14:11:00 Test Item Value Reference Range Interpretation Comments MCH (test code = MCH) 29.9 pg 27.0-31.0 N [facility]stPxetyrdCRDDIURMLD1802-57-58 14:11:00 Test Item Value Reference Range Interpretation Comments MCV (test code = MCV) 88.8 81.0-99.0 N [facility]landsCwozxheHGTFSTAGLU0468-71-45 14:11:00 Test Item Value Reference Range Interpretation Comments CDC-HIV 1/2 Ab (test Negative *NA*(02/14/2012 code = CDC-HIV 1/2 09:11:00) Ab) [facility] HospitalLoeeuwlAPQIKBICY7527-47-04 14:11:00 Test Item Value Reference Range Interpretation Comments Albumin Lvl (test code = Albumin Lvl) 3.9 3.5-5.[address] [facility] HospitalVurxecxXBHCZPXOH5620-87-89 14:11:00 Test Item Value Reference Range Interpretation Comments Bili Total (test code = Bili Total) 0.2 0.2-1.[address] [facility] HospitalKdkrplnOACRTAAEJ4065-15-65 14:11:00 Test Item Value Reference Range Interpretation Comments Alk Phos (test code = Alk Phos) 88 39-[address] [facility] HospitalXicnjeyRJATIXEZP7906-35-74 14:11:00 Test Item Value Reference Range Interpretation Comments Bili Direct (test code 0.1 See_Comment N [Aut omated message] The = Bili Direct) system which generated this result tra nsmitted reference range : <=0.3. The reference r irvin was not used to int erpret this result as anoop l/abnormal. [facility] HospitalCqihhyqIFZQWKWLL5608-56-03 14:11:00 Test Item Value Reference Range Interpretation Comments Total Protein (test code = Total 6.8 6.4-8.4 N Protein) [facility] HospitalTnldsziKEFGUTTZJ9496-88-87 14:11:00 Test Item Value Reference Range Interpretation Comments Lipase Lvl (test code = Lipase Lvl) 120 73-[address] [facility] HospitalLnvrlkrLYDKWIDJC6069-52-47 14:11:00 Test Item Value Reference Range Interpretation Comments Calcium Lvl (test code = Calcium Lvl) 9.0 8.5-10.[address] [facility] HospitalHuiflwxJYPUNERJR5083-12-65 14:11:00 Test Item Value Reference Range Interpretation Comments Chloride Lvl (test code = Chloride Lvl) 103 95-[address] [facility] HospitalZjppxxwEDEYLLPUW1589-14-83 14:11:00 Test Item Value Reference Range Interpretation Comments CO2 (test code = CO2) 32 24-[address] [facility] HospitalNqucjiqFRHRLPPZC6509-79-04 14:11:00 Test Item Value Reference Range Interpretation Comments Glucose Lvl (test code = Glucose Lvl) 96 70-[address] [facility] HospitalCehegluMLUTTQFCH3161-06-25 14:11:00 Test Item Value Reference Range Interpretation Comments BUN (test code = BUN) 9 7-[address] [facility] HospitalSiqdjioYLKQOJRHP7478-51-52 14:11:00 Test Item Value Reference Range Interpretation Comments Creatinine Lvl (test code = Creatinine 0.8 0.5-1.4 N Lvl) [facility] HospitalChkrwfvPXKJDFKYQ7042-92-23 14:11:00 Test Item Value Reference Range Interpretation Comments Potassium Lvl (test code = Potassium 3.9 3.5-5.1 N Lvl) [facility] HospitalPcohnidGWWZEKTBP7281-97-34 14:11:00 Test Item Value Reference Range Interpretation Comments Sodium Lvl (test code = Sodium Lvl) 142 135-[address] [facility] HospitalJhqgccfVEYWUPAEG4303-86-67 14:11:00 Test Item Value Reference Range Interpretation Comments AGAP (test code = AGAP) 10.9 10.0-20.0 N [facility]stZuzrjtiRTZGTIOUOX1072-62-87 14:11:00 Test Item Value Reference Range Interpretation Comments Monocytes (test code = Monocytes) 8.1 2.0-12.0 N [facility]stQrhfxtbPKNDAZJZUQ7679-68-07 14:11:00 Test Item Value Reference Range Interpretation Comments Lymphocytes # (test code = Lymphocytes 1.8 1.0-5.5 N #) [facility]stScegzbnHSBMAMHPLM4823-69-42 14:11:00 Test Item Value Reference Range Interpretation Comments Monocytes # (test code 0.4 See_Comment N [Aut omated message] The = Monocytes #) system which generated this result tra nsmitted reference range : <=0.8. The reference r irvin was not used to int erpret this result as normal/abnormal . [facility]stPnxaxxhNKIKRUMFWK1946-04-69 14:11:00 Test Item Value Reference Range Interpretation Comments Segs-Bands # (test code = Segs-Bands #) 2.9 1.5-8.1 N [facility]stDtlkhjxQBCFOSGODS2073-15-50 14:11:00 Test Item Value Reference Range Interpretation Comments Basophils # (test code 0.0 See_Comment N [Aut omated message] The = Basophils #) system which generated this result tra nsmitted reference range : <=0.2. The reference r irvin was not used to int erpret this result as normal/abnormal . [facility]stLgjflgnOYNHDRWXKB8149-93-13 14:11:00 Test Item Value Reference Range Interpretation Comments Eosinophils # (test code 0.1 See_Comment N [A utomated message] The = Eosinophils #) system [facility] h generated this result tra nsmitted reference range : <=0.5. The reference r irvin was not used to int erpret this result as normal/abnormal . [facility]stGbgmbliJFHFVKIJWY1837-05-68 14:11:00 Test Item Value Reference Range Interpretation Comments Lymphocytes (test code = Lymphocytes) 34.2 20.0-40.0 N [facility]stAehzhlhVXFCRLRXMI0670-31-93 14:11:00 Test Item Value Reference Range Interpretation Comments Segs (test code = Segs) 54.7 45.0-75.0 N [facility]stSeoiwaaAMRCUWJXKP0886-82-58 14:11:00 Test Item Value Reference Range Interpretation Comments Eosinophils (test code = 2.8 See_Comment N [A utomated message] The Eosinophils) system which ge nerated this result tra nsmitted reference range : <=4.0. The reference r irvin was not used to int erpret this result as normal/abnormal . [facility]stBytkscsZDQLDYPUAL7608-03-79 14:11:00 Test Item Value Reference Range Interpretation Comments Basophils (test code = 0.2 See_Comment N [Aut omated message] The Basophils) system which ge nerated this result tra nsmitted reference range : <=1.0. The reference r irvin was not used to int erpret this result as normal/abnormal . [facility]stPbawwjpYHXSXIADXL6183-36-46 14:11:00 Test Item Value Reference Range Interpretation Comments MPV (test code = MPV) 8.6 7.4-10.4 N [facility]stSnwgvgeAUPRKZHISZ9788-24-80 14:11:00 Test Item Value Reference Range Interpretation Comments Hgb (test code = Hgb) 11.6 12.0-16.0 L [facility]stOaqnvhkIUKYKSMVBP0964-77-23 14:11:00 Test Item Value Reference Range Interpretation Comments WBC (test code = WBC) 5.2 3.7-10.4 N [facility]stYclzcujGRDUEJYYHG1628-33-62 14:11:00 Test Item Value Reference Range Interpretation Comments RBC (test code = RBC) 3.86 4.20-5.40 L [facility]stHpeyhbxPTWUOFOWTQ6909-33-51 14:11:00 Test Item Value Reference Range Interpretation Comments Platelet (test code = Platelet) 187 133-450 N [facility]stRrfbkhsULDQWXJQAU5303-10-77 14:11:00 Test Item Value Reference Range Interpretation Comments RDW (test code = RDW) 13.5 11.5-14.5 N [facility]stMsymilaBMUMIDUYOM1968-41-86 14:11:00 Test Item Value Reference Range Interpretation Comments Hct (test code = Hct) 34.3 36.0-48.0 L [facility]stXyxhnyrCZJDIKFDET5328-46-58 14:11:00 Test Item Value Reference Range Interpretation Comments MCHC (test code = MCHC) 33.7 32.0-36.0 N [facility]stHcbztoaQGTXOOTUXQ9960-33-72 14:11:00 Test Item Value Reference Range Interpretation Comments MCH (test code = MCH) 29.9 pg 27.0-31.0 N [facility]aPzmcpnsNXEKKQLEDZ0648-35-31 14:11:00 Test Item Value Reference Range Interpretation Comments MCV (test code = MCV) 88.8 81.0-99.0 N [facility]landsWnesujbGHCTUNKFGQ9072-43-40 14:11:00 Test Item Value Reference Range Interpretation Comments CDC-HIV 1/2 Ab (test Negative *NA*(02/14/2012 code = CDC-HIV 1/2 09:11:00) Ab) [facility] HospitalPihxbmeEXXEZKMGR7651-44-44 14:11:00 Test Item Value Reference Range Interpretation Comments Phosphorus (test code = Phosphorus) 3.3 2.5-4.[address] [facility] HospitalScorsjiPRNJWAXFR1372-78-93 14:11:00 Test Item Value Reference Range Interpretation Comments Magnesium Lvl (test code = Magnesium 2.0 1.8-2.4 N Lvl) [facility] HospitalFzglxtaFLZLDTVSN8498-79-62 14:11:00 Test Item Value Reference Range Interpretation Comments A/G Ratio (test code = A/G Ratio) 1.3 0.7-1.[address] [facility] HospitalEiaqdumEAGMEFDAO3947-08-11 14:11:00 Test Item Value Reference Range Interpretation Comments Globulin (test code = Globulin) 2.9 2.0-4.[address] [facility] HospitalCpkirlkNMNNTTEJN6269-01-62 14:11:00 Test Item Value Reference Range Interpretation Comments Bili Indirect (test 0.1 See_Comment N [Automa carol message] The code = Bili Indirect) system which generated this result tra nsmitted reference range : <=1.0. The reference r irvin was not used to int erpret this result as normal/abnormal . [facility] HospitalHemugekPZFONRENB3895-78-58 14:11:00 Test Item Value Reference Range Interpretation Comments AST (test code = AST) 24 See_Comment N [Auto mated message] The system which ge nerated this result transmit carol reference range : <=37. The reference range was not used to interpr et this result as anoop l/abnormal. [facility] HospitalMgbxaaiJWYHPZCNT3141-41-92 14:11:00 Test Item Value Reference Range Interpretation Comments ALT (test code = ALT) 35 See_Comment N [Auto mated message] The system which ge nerated this result transmit carol reference range : <=65. The reference range was not used to interpr et this result as anoop l/abnormal. [facility] HospitalAezdptzVVOAKIAAK8641-97-35 14:11:00 Test Item Value Reference Range Interpretation Comments Albumin Lvl (test code = Albumin Lvl) 3.9 3.5-5.[address] [facility] HospitalOryjcigKAMLEWLMA6707-33-72 14:11:00 Test Item Value Reference Range Interpretation Comments Bili Total (test code = Bili Total) 0.2 0.2-1.[address] [facility] HospitalPzmjvuzDHKQSCFPE9708-11-51 14:11:00 Test Item Value Reference Range Interpretation Comments Alk Phos (test code = Alk Phos) 88 39-[address] [facility] HospitalXydmbanXOPXAFQQG7386-70-05 14:11:00 Test Item Value Reference Range Interpretation Comments Bili Direct (test code 0.1 See_Comment N [Aut omated message] The = Bili Direct) system which generated this result tra nsmitted reference range : <=0.3. The reference r irvin was not used to int erpret this result as anoop l/abnormal. [facility] HospitalUpjeirvWQCHMAZBU3434-73-68 14:11:00 Test Item Value Reference Range Interpretation Comments Total Protein (test code = Total 6.8 6.4-8.4 N Protein) [facility] HospitalTnmwgarESXKYKUQR2951-98-57 14:11:00 Test Item Value Reference Range Interpretation Comments Lipase Lvl (test code = Lipase Lvl) 120 73-[address] [facility] HospitalDhmsmcgOTXYNQKUC3577-72-08 14:11:00 Test Item Value Reference Range Interpretation Comments Calcium Lvl (test code = Calcium Lvl) 9.0 8.5-10.[address] [facility] HospitalBkacyjfMSWMBADXD3123-50-58 14:11:00 Test Item Value Reference Range Interpretation Comments Phosphorus (test code = Phosphorus) 3.3 2.5-4.[address] [facility] HospitalWqlmiupGQRNDDOPY9997-38-99 14:11:00 Test Item Value Reference Range Interpretation Comments Chloride Lvl (test code = Chloride Lvl) 103 95-[address] [facility] HospitalPmpxghrMTTWILWUN5345-34-65 14:11:00 Test Item Value Reference Range Interpretation Comments CO2 (test code = CO2) 32 24-[address] [facility] HospitalVqjvohfSHSFTNEDS5954-33-46 14:11:00 Test Item Value Reference Range Interpretation Comments Glucose Lvl (test code = Glucose Lvl) 96 70-[address] [facility] HospitalTilcheoDUZPTXXKX5264-25-26 14:11:00 Test Item Value Reference Range Interpretation Comments BUN (test code = BUN) 9 7-[address] [facility] HospitalAwyjprvOGCJJSIYQ5197-02-43 14:11:00 Test Item Value Reference Range Interpretation Comments Creatinine Lvl (test code = Creatinine 0.8 0.5-1.4 N Lvl) [facility] HospitalRuwdjhzYMGAHJMDX1421-05-01 14:11:00 Test Item Value Reference Range Interpretation Comments Potassium Lvl (test code = Potassium 3.9 3.5-5.1 N Lvl) [facility] HospitalMghpjvrOFNAZXEIP6170-25-30 14:11:00 Test Item Value Reference Range Interpretation Comments Sodium Lvl (test code = Sodium Lvl) 142 135-[address] [facility] HospitalIpxufzyCFGMTZTUV8595-20-57 14:11:00 Test Item Value Reference Range Interpretation Comments AGAP (test code = AGAP) 10.9 10.0-20.0 N [facility]stYaluhkwRKJGNMEPXL5970-73-49 14:11:00 Test Item Value Reference Range Interpretation Comments Monocytes (test code = Monocytes) 8.1 2.0-12.0 N [facility]stCoctuepGZTYYRWHON1833-31-24 14:11:00 Test Item Value Reference Range Interpretation Comments Lymphocytes # (test code = Lymphocytes 1.8 1.0-5.5 N #) [facility] HospitalIfgowieTPGWSQMNY0642-08-97 14:11:00 Test Item Value Reference Range Interpretation Comments Magnesium Lvl (test code = Magnesium 2.0 1.8-2.4 N Lvl) [facility]stCocsyxmFEQPISQPCS1894-26-10 14:11:00 Test Item Value Reference Range Interpretation Comments Monocytes # (test code 0.4 See_Comment N [Aut omated message] The = Monocytes #) system which generated this result tra nsmitted reference range : <=0.8. The reference r irvin was not used to int erpret this result as normal/abnormal . [facility]stAprlqvzUZLTZLLGXE0491-53-33 14:11:00 Test Item Value Reference Range Interpretation Comments Segs-Bands # (test code = Segs-Bands #) 2.9 1.5-8.1 N [facility]stXbaipvsBZQJVJJHZM1974-04-12 14:11:00 Test Item Value Reference Range Interpretation Comments Basophils # (test code 0.0 See_Comment N [Aut omated message] The = Basophils #) system which generated this result tra nsmitted reference range : <=0.2. The reference r irvin was not used to int erpret this result as normal/abnormal . [facility]stUzrzzrvBSDLEBHWQX3652-13-51 14:11:00 Test Item Value Reference Range Interpretation Comments Eosinophils # (test code 0.1 See_Comment N [A utomated message] The = Eosinophils #) system whic h generated this result tra nsmitted reference range : <=0.5. The reference r irvin was not used to int erpret this result as normal/abnormal . [facility]stNpnkaarYMZIRGGCEE6821-56-11 14:11:00 Test Item Value Reference Range Interpretation Comments Lymphocytes (test code = Lymphocytes) 34.2 20.0-40.0 N [facility]stIymvqddIXHWREQUYQ7925-35-25 14:11:00 Test Item Value Reference Range Interpretation Comments Segs (test code = Segs) 54.7 45.0-75.0 N [facility]stWadkwmsMGANWBUUIE0541-63-25 14:11:00 Test Item Value Reference Range Interpretation Comments Eosinophils (test code = 2.8 See_Comment N [A utomated message] The Eosinophils) system which ge nerated this result tra nsmitted reference range : <=4.0. The reference r irvin was not used to int erpret this result as normal/abnormal . [facility]stNanizzxCJOVKQCETF7087-14-30 14:11:00 Test Item Value Reference Range Interpretation Comments Basophils (test code = 0.2 See_Comment N [Aut omated message] The Basophils) system which ge nerated this result tra nsmitted reference range : <=1.0. The reference r irvin was not used to int erpret this result as normal/abnormal . [facility]stEhpexlyEPZDPLEVJJ3288-65-59 14:11:00 Test Item Value Reference Range Interpretation Comments MPV (test code = MPV) 8.6 7.4-10.4 N [facility]stIgoqbkzWDINTPGWOI5723-05-63 14:11:00 Test Item Value Reference Range Interpretation Comments Hgb (test code = Hgb) 11.6 12.0-16.[address] [facility] HospitalLwnxmstXUSXHOECY8643-71-12 14:11:00 Test Item Value Reference Range Interpretation Comments A/G Ratio (test code = A/G Ratio) 1.3 0.7-1.6 N [facility]stInctdbeKFNCRRFNDW8413-99-53 14:11:00 Test Item Value Reference Range Interpretation Comments WBC (test code = WBC) 5.2 3.7-10.4 N [facility]stUmvwpisJOJBNILEZQ4642-36-35 14:11:00 Test Item Value Reference Range Interpretation Comments RBC (test code = RBC) 3.86 4.20-5.40 L [facility]stYlsavvfACWYHYCXXV7432-36-67 14:11:00 Test Item Value Reference Range Interpretation Comments Platelet (test code = Platelet) 187 133-450 N [facility]stKxerrktTVOYIDLXGP6373-33-54 14:11:00 Test Item Value Reference Range Interpretation Comments RDW (test code = RDW) 13.5 11.5-14.5 N [facility]stGacvfziHUEUQQDMVQ9384-32-44 14:11:00 Test Item Value Reference Range Interpretation Comments Hct (test code = Hct) 34.3 36.0-48.0 L [facility]stRexsomzAZILCGYRQV0857-83-22 14:11:00 Test Item Value Reference Range Interpretation Comments MCHC (test code = MCHC) 33.7 32.0-36.0 N [facility]stDffhuhsSKRGAHPXSR0755-01-33 14:11:00 Test Item Value Reference Range Interpretation Comments MCH (test code = MCH) 29.9 pg 27.0-31.0 N [facility]stNlvnbwxTBINVWJILM1716-04-69 14:11:00 Test Item Value Reference Range Interpretation Comments MCV (test code = MCV) 88.8 81.0-99.0 N [facility]landsKbygbiqGNVXLOMJXL3709-44-75 14:11:00 Test Item Value Reference Range Interpretation Comments CDC-HIV 1/2 Ab (test Negative *NA*(02/14/2012 code = CDC-HIV 1/2 09:11:00) Ab) [facility] HospitalIcwsxwbSPPPNFRBT9299-91-47 14:11:00 Test Item Value Reference Range Interpretation Comments Globulin (test code = Globulin) 2.9 2.0-4.[address] [facility] HospitalTinyarkICEBNTGMA8558-07-02 14:11:00 Test Item Value Reference Range Interpretation Comments Bili Indirect (test 0.1 See_Comment N [Automa carol message] The code = Bili Indirect) system which generated this result tra nsmitted reference range : <=1.0. The reference r irvin was not used to int erpret this result as normal/abnormal . [facility] HospitalSxtfmmiCNLMBNIRS6522-66-79 14:11:00 Test Item Value Reference Range Interpretation Comments AST (test code = AST) 24 See_Comment N [Auto mated message] The system which ge nerated this result transmit carol reference range : <=37. The reference range was not used to interpr et this result as anoop l/abnormal. [facility] HospitalOzumdpdNFAEESZWY2353-37-81 14:11:00 Test Item Value Reference Range Interpretation Comments Phosphorus (test code = Phosphorus) 3.3 2.5-4.[address] [facility] HospitalDedvgwtHAAMXZJVH4418-50-79 14:11:00 Test Item Value Reference Range Interpretation Comments ALT (test code = ALT) 35 See_Comment N [Auto mated message] The system which ge nerated this result transmit carol reference range : <=65. The reference range was not used to interpr et this result as anoop l/abnormal. [facility] HospitalBopgexxJFHVDHGPI9982-33-08 14:11:00 Test Item Value Reference Range Interpretation Comments Magnesium Lvl (test code = Magnesium 2.0 1.8-2.4 N Lvl) [facility] HospitalWqnfkveEJLXVRDJL6780-98-43 14:11:00 Test Item Value Reference Range Interpretation Comments A/G Ratio (test code = A/G Ratio) 1.3 0.7-1.[address] [facility] HospitalHiwhboeSBBCNYFPO5022-16-45 14:11:00 Test Item Value Reference Range Interpretation Comments Globulin (test code = Globulin) 2.9 2.0-4.[address] [facility] HospitalAjarwhlMGHFPXCYD7056-32-54 14:11:00 Test Item Value Reference Range Interpretation Comments Bili Indirect (test 0.1 See_Comment N [Automa carol message] The code = Bili Indirect) system which generated this result tra nsmitted reference range : <=1.0. The reference r irvin was not used to int erpret this result as normal/abnormal . [facility] HospitalRojhaskOYBPSFUHI7389-15-24 14:11:00 Test Item Value Reference Range Interpretation Comments AST (test code = AST) 24 See_Comment N [Auto mated message] The system which ge nerated this result transmit carol reference range : <=37. The reference range was not used to interpr et this result as anoop l/abnormal. [facility]EgsnnoaXONGXQPJY6294-25-42 14:11:00 Test Item Value Reference Range Interpretation Comments ALT (test code = ALT) 35 See_Comment N [Auto mated message] The system which ge nerated this result transmit carol reference range : <=65. The reference range was not used to interpr et this result as anoop l/abnormal. [facility] HospitalOuqmfwjSHJFRFXAJ7282-37-04 14:11:00 Test Item Value Reference Range Interpretation Comments Albumin Lvl (test code = Albumin Lvl) 3.9 3.5-5.[address] [facility] HospitalHbxhwvzAUGCUDNRW0714-95-38 14:11:00 Test Item Value Reference Range Interpretation Comments Bili Total (test code = Bili Total) 0.2 0.2-1.[address] [facility] HospitalRqtxzxxAXNDPKJFJ3670-84-75 14:11:00 Test Item Value Reference Range Interpretation Comments Alk Phos (test code = Alk Phos) 88 39-[address] [facility] HospitalEngmnzdEXYHLICAX9390-43-06 14:11:00 Test Item Value Reference Range Interpretation Comments Bili Direct (test code 0.1 See_Comment N [Aut omated message] The = Bili Direct) system which generated this result tra nsmitted reference range : <=0.3. The reference r irvin was not used to int erpret this result as anoop l/abnormal. [facility] HospitalJqljkygGQMZBZDOC4843-13-78 14:11:00 Test Item Value Reference Range Interpretation Comments Albumin Lvl (test code = Albumin Lvl) 3.9 3.5-5.[address] [facility] HospitalLelmkcjBAWCTQICO4757-72-55 14:11:00 Test Item Value Reference Range Interpretation Comments Total Protein (test code = Total 6.8 6.4-8.4 N Protein) [facility] HospitalTgitrhqLZULIAPSH1367-62-57 14:11:00 Test Item Value Reference Range Interpretation Comments Lipase Lvl (test code = Lipase Lvl) 120 73-[address] [facility] HospitalHxymjxbYBSPOODZN8545-48-53 14:11:00 Test Item Value Reference Range Interpretation Comments Calcium Lvl (test code = Calcium Lvl) 9.0 8.5-10.[address] [facility] HospitalOdonjblXGRHNUMFI1142-03-81 14:11:00 Test Item Value Reference Range Interpretation Comments Chloride Lvl (test code = Chloride Lvl) 103 95-[address] [facility] HospitalGloizcxNSHKZVDLX8556-24-69 14:11:00 Test Item Value Reference Range Interpretation Comments CO2 (test code = CO2) 32 24-[address] [facility] HospitalJvtazqtLCNHPSXCJ7150-64-51 14:11:00 Test Item Value Reference Range Interpretation Comments Glucose Lvl (test code = Glucose Lvl) 96 70-[address] [facility] HospitalYvrfqrgLYLOTHHIA8995-55-57 14:11:00 Test Item Value Reference Range Interpretation Comments BUN (test code = BUN) 9 7-[address] [facility] HospitalRqnoqcaTOZKJTYBY6009-48-68 14:11:00 Test Item Value Reference Range Interpretation Comments Creatinine Lvl (test code = Creatinine 0.8 0.5-1.4 N Lvl) [facility] HospitalJyjkvvbCJYQSNYPE3358-84-27 14:11:00 Test Item Value Reference Range Interpretation Comments Potassium Lvl (test code = Potassium 3.9 3.5-5.1 N Lvl) [facility] HospitalFmfuhxpWWBHLYESN9928-25-24 14:11:00 Test Item Value Reference Range Interpretation Comments Sodium Lvl (test code = Sodium Lvl) 142 135-[address] [facility] HospitalRlqnpckJATIYUANP5439-73-89 14:11:00 Test Item Value Reference Range Interpretation Comments Bili Total (test code = Bili Total) 0.2 0.2-1.[address] [facility] HospitalWmzjgyfODSVRALQW1914-49-40 14:11:00 Test Item Value Reference Range Interpretation Comments AGAP (test code = AGAP) 10.9 10.0-20.0 N [facility]QkbfobsTZAMSUPQOH5695-23-61 14:11:00 Test Item Value Reference Range Interpretation Comments Monocytes (test code = Monocytes) 8.1 2.0-12.0 N [facility]stJqlacchTSLJXCMXWA7660-24-89 14:11:00 Test Item Value Reference Range Interpretation Comments Lymphocytes # (test code = Lymphocytes 1.8 1.0-5.5 N #) [facility]stSbozuulSAJVVNQWFR4386-41-39 14:11:00 Test Item Value Reference Range Interpretation Comments Monocytes # (test code 0.4 See_Comment N [Aut omated message] The = Monocytes #) system which generated this result tra nsmitted reference range : <=0.8. The reference r irvin was not used to int erpret this result as normal/abnormal . [facility]stVvbqekoLKMZDBDYMQ1965-43-78 14:11:00 Test Item Value Reference Range Interpretation Comments Segs-Bands # (test code = Segs-Bands #) 2.9 1.5-8.1 N [facility]stCymglpxNKWNNDRFCW8391-70-00 14:11:00 Test Item Value Reference Range Interpretation Comments Basophils # (test code 0.0 See_Comment N [Aut omated message] The = Basophils #) system which generated this result tra nsmitted reference range : <=0.2. The reference r irvin was not used to int erpret this result as normal/abnormal . [facility]stMcxigvfDEHCNTESRB9783-16-12 14:11:00 Test Item Value Reference Range Interpretation Comments Eosinophils # (test code 0.1 See_Comment N [A utomated message] The = Eosinophils #) system whic h generated this result tra nsmitted reference range : <=0.5. The reference r irvin was not used to int erpret this result as normal/abnormal . [facility]stLqkaacxTNJEOJLRTM9433-43-30 14:11:00 Test Item Value Reference Range Interpretation Comments Lymphocytes (test code = Lymphocytes) 34.2 20.0-40.0 N [facility]stFxjgxyaUSVKHAUIHH1867-62-06 14:11:00 Test Item Value Reference Range Interpretation Comments Segs (test code = Segs) 54.7 45.0-75.0 N [facility]stRpehsuoVAUNGNEQFE8405-85-73 14:11:00 Test Item Value Reference Range Interpretation Comments Eosinophils (test code = 2.8 See_Comment N [A utomated message] The Eosinophils) system which ge nerated this result tra nsmitted reference range : <=4.0. The reference r irvin was not used to int erpret this result as normal/abnormal . [facility] HospitalUgdjahpWNVMMHHSU5767-25-48 14:11:00 Test Item Value Reference Range Interpretation Comments Alk Phos (test code = Alk Phos) 88 39-136 N [facility]stIyhbxqpQHZRITHOXW3772-54-55 14:11:00 Test Item Value Reference Range Interpretation Comments Basophils (test code = 0.2 See_Comment N [Aut omated message] The Basophils) system which ge nerated this result tra nsmitted reference range : <=1.0. The reference r irvin was not used to int erpret this result as normal/abnormal . [facility]stEmyrilzJANRXCWWVW0020-88-96 14:11:00 Test Item Value Reference Range Interpretation Comments MPV (test code = MPV) 8.6 7.4-10.4 N [facility]stWjjjvhkVAGGABRDXM7069-24-30 14:11:00 Test Item Value Reference Range Interpretation Comments Hgb (test code = Hgb) 11.6 12.0-16.0 L [facility]stGgwepbhCVSDJSIEEA5753-25-93 14:11:00 Test Item Value Reference Range Interpretation Comments WBC (test code = WBC) 5.2 3.7-10.4 N [facility]stIphuynpXZRUEGIRRD8404-56-85 14:11:00 Test Item Value Reference Range Interpretation Comments RBC (test code = RBC) 3.86 4.20-5.40 L [facility]stXscscxjXTPRFGEIEP6172-27-61 14:11:00 Test Item Value Reference Range Interpretation Comments Platelet (test code = Platelet) 187 133-450 N [facility]stPhpfnicEUHSUWUQSS5779-47-69 14:11:00 Test Item Value Reference Range Interpretation Comments RDW (test code = RDW) 13.5 11.5-14.5 N [facility]stVbyklsjJYUBKYFKFV6091-94-29 14:11:00 Test Item Value Reference Range Interpretation Comments Hct (test code = Hct) 34.3 36.0-48.0 L [facility]stArnrpuqMBBEAVVJZM6761-54-40 14:11:00 Test Item Value Reference Range Interpretation Comments MCHC (test code = MCHC) 33.7 32.0-36.0 N [facility]stTmydzefHSIZQGVGQS0177-04-98 14:11:00 Test Item Value Reference Range Interpretation Comments MCH (test code = MCH) 29.9 pg 27.0-31.0 N [facility]landsAvucvliOHAMAIFYU5688-45-59 14:11:00 Test Item Value Reference Range Interpretation Comments Bili Direct (test code 0.1 See_Comment N [Aut omated message] The = Bili Direct) system which generated this result tra nsmitted reference range : <=0.3. The reference r irvin was not used to int erpret this result as anoop l/abnormal. [facility]stLeacsogNWMHVEHNWR8922-37-88 14:11:00 Test Item Value Reference Range Interpretation Comments MCV (test code = MCV) 88.8 81.0-99.0 N [facility]landsJtcankdROYMVMHJDS9306-71-79 14:11:00 Test Item Value Reference Range Interpretation Comments CDC-HIV 1/2 Ab (test Negative *NA*(02/14/2012 code = CDC-HIV 1/2 09:11:00) Ab) [facility] HospitalCrvhxtoFMRTLWAFF2191-32-82 14:11:00 Test Item Value Reference Range Interpretation Comments Total Protein (test code = Total 6.8 6.4-8.4 N Protein) [facility] HospitalAbdgdrhZRBHHUYGD1765-61-56 14:11:00 Test Item Value Reference Range Interpretation Comments Lipase Lvl (test code = Lipase Lvl) 120 73-[address] [facility] HospitalPqphcyjTFUGTIZKH1844-08-43 14:11:00 Test Item Value Reference Range Interpretation Comments Calcium Lvl (test code = Calcium Lvl) 9.0 8.5-10.[address] [facility] HospitalFwgnmzsWZVEWDMDZ9078-67-66 14:11:00 Test Item Value Reference Range Interpretation Comments Phosphorus (test code = Phosphorus) 3.3 2.5-4.[address] [facility] HospitalKiepxjkUQCDMLPZB7287-29-03 14:11:00 Test Item Value Reference Range Interpretation Comments Magnesium Lvl (test code = Magnesium 2.0 1.8-2.4 N Lvl) [facility] HospitalQrcxpxrQDDMDRDXM4244-48-96 14:11:00 Test Item Value Reference Range Interpretation Comments A/G Ratio (test code = A/G Ratio) 1.3 0.7-1.[address] [facility] HospitalJajajcxXKTUVUFAI6554-62-09 14:11:00 Test Item Value Reference Range Interpretation Comments Globulin (test code = Globulin) 2.9 2.0-4.[address] [facility] HospitalOdfdjqbKEFOYCKHC4926-13-32 14:11:00 Test Item Value Reference Range Interpretation Comments Bili Indirect (test 0.1 See_Comment N [Automa carol message] The code = Bili Indirect) system which generated this result tra nsmitted reference range : <=1.0. The reference r irvin was not used to int erpret this result as normal/abnormal . [facility] HospitalUjjnkupOGLVGROGB1329-72-87 14:11:00 Test Item Value Reference Range Interpretation Comments AST (test code = AST) 24 See_Comment N [Auto mated message] The system which ge nerated this result transmit carol reference range : <=37. The reference range was not used to interpr et this result as anoop l/abnormal. [facility] HospitalLciujblDZVNCKIGH4786-47-18 14:11:00 Test Item Value Reference Range Interpretation Comments ALT (test code = ALT) 35 See_Comment N [Auto mated message] The system which ge nerated this result transmit carol reference range : <=65. The reference range was not used to interpr et this result as anoop l/abnormal. [facility] HospitalBdmzzsqPBEYQJAUB6609-92-07 14:11:00 Test Item Value Reference Range Interpretation Comments Albumin Lvl (test code = Albumin Lvl) 3.9 3.5-5.[address] [facility] HospitalMptbhurJEKTDQUWO4771-25-79 14:11:00 Test Item Value Reference Range Interpretation Comments Chloride Lvl (test code = Chloride Lvl) 103 95-109 N [facility]wallMiqbhnyDHZOTRQPG3673-56-82 14:11:00 Test Item Value Reference Range Interpretation Comments Bili Total (test code = Bili Total) 0.2 0.2-1.[address] [facility] HospitalCpxhurtZTUWPVZZQ8237-86-49 14:11:00 Test Item Value Reference Range Interpretation Comments Alk Phos (test code = Alk Phos) 88 39-[address] [facility] HospitalVcqrrddNSHIFWZUS5106-86-02 14:11:00 Test Item Value Reference Range Interpretation Comments Bili Direct (test code 0.1 See_Comment N [Aut omated message] The = Bili Direct) system which generated this result tra nsmitted reference range : <=0.3. The reference r irvin was not used to int erpret this result as anoop l/abnormal. [facility] HospitalEpkhvgiDGTQINAIM6000-71-69 14:11:00 Test Item Value Reference Range Interpretation Comments Total Protein (test code = Total 6.8 6.4-8.4 N Protein) [facility] HospitalPebqepvVELYUXYNT4155-98-72 14:11:00 Test Item Value Reference Range Interpretation Comments Lipase Lvl (test code = Lipase Lvl) 120 73-393 N [facility]wallKeklxqlBOBILAHBY6512-00-35 14:11:00 Test Item Value Reference Range Interpretation Comments Calcium Lvl (test code = Calcium Lvl) 9.0 8.5-10.[address] [facility] HospitalGtzaijiPMWUNVTZC7851-89-88 14:11:00 Test Item Value Reference Range Interpretation Comments Chloride Lvl (test code = Chloride Lvl) 103 95-[address] [facility] HospitalSiahkyjIBCFPDJUJ2555-67-16 14:11:00 Test Item Value Reference Range Interpretation Comments CO2 (test code = CO2) 32 24-[address] [facility] HospitalGdouruaOHQUTRLKQ1288-69-20 14:11:00 Test Item Value Reference Range Interpretation Comments Glucose Lvl (test code = Glucose Lvl) 96 70-[address] [facility] HospitalXdnxktaVZVZCGWSB4052-12-49 14:11:00 Test Item Value Reference Range Interpretation Comments BUN (test code = BUN) 9 7-[address] [facility] HospitalRaflxabZFVJZIMMA9558-86-58 14:11:00 Test Item Value Reference Range Interpretation Comments CO2 (test code = CO2) 32 24-[address] [facility] HospitalMzdziliHDHYKWLJO7839-85-86 14:11:00 Test Item Value Reference Range Interpretation Comments Creatinine Lvl (test code = Creatinine 0.8 0.5-1.4 N Lvl) [facility] HospitalQlvbdqcULZFNSEQR7951-11-34 14:11:00 Test Item Value Reference Range Interpretation Comments Potassium Lvl (test code = Potassium 3.9 3.5-5.1 N Lvl) [facility] HospitalIuxjecjVRMIUGOSJ6412-11-03 14:11:00 Test Item Value Reference Range Interpretation Comments Sodium Lvl (test code = Sodium Lvl) 142 135-[address] [facility] HospitalKkrpzhnXZDBMEAUJ0963-96-93 14:11:00 Test Item Value Reference Range Interpretation Comments AGAP (test code = AGAP) 10.9 10.0-20.0 N [facility]stBhdgkrxSQJQCEEBCM3158-74-70 14:11:00 Test Item Value Reference Range Interpretation Comments Monocytes (test code = Monocytes) 8.1 2.0-12.0 N [facility]stZqvxxwgZYSTDXCHWR8253-45-90 14:11:00 Test Item Value Reference Range Interpretation Comments Lymphocytes # (test code = Lymphocytes 1.8 1.0-5.5 N #) [facility]stRdmkofoMTGTWFRMVM8357-82-85 14:11:00 Test Item Value Reference Range Interpretation Comments Monocytes # (test code 0.4 See_Comment N [Aut omated message] The = Monocytes #) system which generated this result tra nsmitted reference range : <=0.8. The reference r irvin was not used to int erpret this result as normal/abnormal . [facility]stNerrfdqGRXHAQUHBJ2165-76-48 14:11:00 Test Item Value Reference Range Interpretation Comments Segs-Bands # (test code = Segs-Bands #) 2.9 1.5-8.1 N [facility]stNgdztsoYMSQEERWAT0159-70-33 14:11:00 Test Item Value Reference Range Interpretation Comments Basophils # (test code 0.0 See_Comment N [Aut omated message] The = Basophils #) system which generated this result tra nsmitted reference range : <=0.2. The reference r irvin was not used to int erpret this result as normal/abnormal . [facility]stJhptrlrHIBCQUATOY6852-30-50 14:11:00 Test Item Value Reference Range Interpretation Comments Eosinophils # (test code 0.1 See_Comment N [A utomated message] The = Eosinophils #) system whic h generated this result tra nsmitted reference range : <=0.5. The reference r irvin was not used to int erpret this result as normal/abnormal . [facility] HospitalRihlsxaKBZAIKDNH4835-15-75 14:11:00 Test Item Value Reference Range Interpretation Comments Glucose Lvl (test code = Glucose Lvl) 96 70-99 N [facility]stWyfvztiVFUKZHYBWY8049-65-45 14:11:00 Test Item Value Reference Range Interpretation Comments Lymphocytes (test code = Lymphocytes) 34.2 20.0-40.0 N [facility]stJvrtagjESVQZHXPWD0344-96-93 14:11:00 Test Item Value Reference Range Interpretation Comments Segs (test code = Segs) 54.7 45.0-75.0 N [facility]stXkszsltCWBTFSRVWG2935-51-61 14:11:00 Test Item Value Reference Range Interpretation Comments Eosinophils (test code = 2.8 See_Comment N [A utomated message] The Eosinophils) system which ge nerated this result tra nsmitted reference range : <=4.0. The reference r irvin was not used to int erpret this result as normal/abnormal . [facility]stQqkyjpuRQBOEIXMFU4423-00-07 14:11:00 Test Item Value Reference Range Interpretation Comments Basophils (test code = 0.2 See_Comment N [Aut omated message] The Basophils) system which ge nerated this result tra nsmitted reference range : <=1.0. The reference r irvin was not used to int erpret this result as normal/abnormal . [facility]stLlogrhnYBPHJDSIYI6698-15-00 14:11:00 Test Item Value Reference Range Interpretation Comments MPV (test code = MPV) 8.6 7.4-10.4 N [facility]stXnlqlbyHGSIXBWALM0962-28-06 14:11:00 Test Item Value Reference Range Interpretation Comments Hgb (test code = Hgb) 11.6 12.0-16.0 L [facility]stEckygkpVMRRBDIAAE9582-68-80 14:11:00 Test Item Value Reference Range Interpretation Comments WBC (test code = WBC) 5.2 3.7-10.4 N [facility]stYmllriwUTDEXQGXQX5634-43-63 14:11:00 Test Item Value Reference Range Interpretation Comments RBC (test code = RBC) 3.86 4.20-5.40 L [facility]stAdzbfamZFOEZITDCW8761-62-00 14:11:00 Test Item Value Reference Range Interpretation Comments Platelet (test code = Platelet) 187 133-450 N [facility]stOromvmrUBHSHBZDQQ4120-13-76 14:11:00 Test Item Value Reference Range Interpretation Comments RDW (test code = RDW) 13.5 11.5-14.5 N [facility]landsKhltaywZMUQBSUMG8459-26-48 14:11:00 Test Item Value Reference Range Interpretation Comments BUN (test code = BUN) 9 7-22 N [facility]stQzpozghSDNMYFPRZO6338-68-22 14:11:00 Test Item Value Reference Range Interpretation Comments Hct (test code = Hct) 34.3 36.0-48.0 L [facility]stOnynsahKAVKOZFFEC1059-11-33 14:11:00 Test Item Value Reference Range Interpretation Comments MCHC (test code = MCHC) 33.7 32.0-36.0 N [facility]stTsksydvIYMFKUIQFQ3493-03-80 14:11:00 Test Item Value Reference Range Interpretation Comments MCH (test code = MCH) 29.9 pg 27.0-31.0 N [facility]stFydrpvnXJLNOSKHVJ1245-94-43 14:11:00 Test Item Value Reference Range Interpretation Comments MCV (test code = MCV) 88.8 81.0-99.0 N [facility]landsSweplvsFOQXBAIWNS5767-74-62 14:11:00 Test Item Value Reference Range Interpretation Comments CDC-HIV 1/2 Ab (test Negative *NA*(02/14/2012 code = CDC-HIV 1/2 09:11:00) Ab) [facility] HospitalRgzmbmiMGGHKMPFS3610-35-71 14:11:00 Test Item Value Reference Range Interpretation Comments Creatinine Lvl (test code = Creatinine 0.8 0.5-1.4 N Lvl) [facility] HospitalWltcrhiLPXWQMMXJ2018-83-53 14:11:00 Test Item Value Reference Range Interpretation Comments Potassium Lvl (test code = Potassium 3.9 3.5-5.1 N Lvl) [facility] HospitalJbrquwmPCKPJEAVN0920-84-42 14:11:00 Test Item Value Reference Range Interpretation Comments Sodium Lvl (test code = Sodium Lvl) 142 135-[address] [facility] HospitalRjjjcnmLMNQMBPWF1090-59-22 14:11:00 Test Item Value Reference Range Interpretation Comments AGAP (test code = AGAP) 10.9 10.0-20.0 N [facility]stIkmqzzgUXJCQYWHIF0804-54-31 14:11:00 Test Item Value Reference Range Interpretation Comments Monocytes (test code = Monocytes) 8.1 2.0-12.0 N [facility]stXjwatliUSRCTHJBNQ4981-03-54 14:11:00 Test Item Value Reference Range Interpretation Comments Lymphocytes # (test code = Lymphocytes 1.8 1.0-5.5 N #) [facility]stBmeyrtoULODNIXRDU7207-13-27 14:11:00 Test Item Value Reference Range Interpretation Comments Monocytes # (test code 0.4 See_Comment N [Aut omated message] The = Monocytes #) system which generated this result tra nsmitted reference range : <=0.8. The reference r irvin was not used to int erpret this result as normal/abnormal . [facility]stTqgkqinFNXEKCETYW0961-96-06 14:11:00 Test Item Value Reference Range Interpretation Comments Segs-Bands # (test code = Segs-Bands #) 2.9 1.5-8.1 N [facility]stSsjufgrJPUUEVVYLE7073-81-31 14:11:00 Test Item Value Reference Range Interpretation Comments Basophils # (test code 0.0 See_Comment N [Aut omated message] The = Basophils #) system which generated this result tra nsmitted reference range : <=0.2. The reference r irvin was not used to int erpret this result as normal/abnormal . [facility]stUyqeyvhDYESXVBWWX3117-45-42 14:11:00 Test Item Value Reference Range Interpretation Comments Eosinophils # (test code 0.1 See_Comment N [A utomated message] The = Eosinophils #) system whic h generated this result tra nsmitted reference range : <=0.5. The reference r irvin was not used to int erpret this result as normal/abnormal . [facility]stJpxsppuAVRIKIOQYY8506-17-82 14:11:00 Test Item Value Reference Range Interpretation Comments Lymphocytes (test code = Lymphocytes) 34.2 20.0-40.0 N [facility]stNqkqreuHHUKAOVKZC0160-25-25 14:11:00 Test Item Value Reference Range Interpretation Comments Segs (test code = Segs) 54.7 45.0-75.0 N [facility]stWimyuvfPITGHQXNIB5139-25-40 14:11:00 Test Item Value Reference Range Interpretation Comments Eosinophils (test code = 2.8 See_Comment N [A utomated message] The Eosinophils) system which ge nerated this result tra nsmitted reference range : <=4.0. The reference r irvin was not used to int erpret this result as normal/abnormal . [facility]stNjubduoROBFWQENZP5745-07-40 14:11:00 Test Item Value Reference Range Interpretation Comments Basophils (test code = 0.2 See_Comment N [Aut omated message] The Basophils) system which ge nerated this result tra nsmitted reference range : <=1.0. The reference r irvin was not used to int erpret this result as normal/abnormal . [facility]stBywknysJTJJMKJFVP7105-27-84 14:11:00 Test Item Value Reference Range Interpretation Comments MPV (test code = MPV) 8.6 7.4-10.4 N [facility]stXmayfxgPJIBEFXQTM7902-07-28 14:11:00 Test Item Value Reference Range Interpretation Comments Hgb (test code = Hgb) 11.6 12.0-16.0 L [facility]stCfuqhgoUMQYPBHIKZ1839-91-03 14:11:00 Test Item Value Reference Range Interpretation Comments WBC (test code = WBC) 5.2 3.7-10.4 N [facility]stVitrmiwEJPTWPRQVX4911-09-88 14:11:00 Test Item Value Reference Range Interpretation Comments RBC (test code = RBC) 3.86 4.20-5.40 L [facility]stFygaylkBYRMHNGQYY7434-03-29 14:11:00 Test Item Value Reference Range Interpretation Comments Platelet (test code = Platelet) 187 133-450 N [facility] [facility]PyfvagpJQJBEVDEFB1338-05-64 14:11:00 Test Item Value Reference Range Interpretation Comments RDW (test code = RDW) 13.5 11.5-14.5 N [facility]ChyjazkTIVYNPMNZL0088-75-75 14:11:00 Test Item Value Reference Range Interpretation Comments Hct (test code = Hct) 34.3 36.0-48.0 L [facility]stWcvkimqSTFUWNAVBP8741-63-21 14:11:00 Test Item Value Reference Range Interpretation Comments MCHC (test code = MCHC) 33.7 32.0-36.0 N [facility]stGxndfcfBXYWNQYEEA5565-62-64 14:11:00 Test Item Value Reference Range Interpretation Comments MCH (test code = MCH) 29.9 pg 27.0-31.0 N [facility]stPesuhwhBQMYLFVETS1593-46-93 14:11:00 Test Item Value Reference Range Interpretation Comments MCV (test code = MCV) 88.8 81.0-99.0 N [facility]wallFjfpmtuODSNGWHOJW3116-61-26 14:11:00 Test Item Value Reference Range Interpretation Comments CDC-HIV 1/2 Ab (test Negative *NA*(02/14/2012 code = CDC-HIV 1/2 09:11:00) Ab) [facility]AK7871-22-[facility] 14:11:00 Test Item Value Reference Range Interpretation Comments Phosphorus (test code = Phosphorus) 3.3 2.5-4.[address] [facility]ZfrrcesLLNBJDJDD8647-00-98 14:11:00 Test Item Value Reference Range Interpretation Comments Magnesium Lvl (test code = Magnesium 2.0 1.8-2.4 N Lvl) [facility] HospitalCbersvrBIIFMBOGP0294-73-42 14:11:00 Test Item Value Reference Range Interpretation Comments A/G Ratio (test code = A/G Ratio) 1.3 0.7-1.[address] [facility]OgehrfgDEHVKOJZE9970-67-14 14:11:00 Test Item Value Reference Range Interpretation Comments Globulin (test code = Globulin) 2.9 2.0-4.[address] [facility] HospitalLrnhbrpVQZMMWILK0249-13-10 14:11:00 Test Item Value Reference Range Interpretation Comments Bili Indirect (test 0.1 See_Comment N [Automa carol message] The code = Bili Indirect) system which generated this result tra nsmitted reference range : <=1.0. The reference r irvin was not used to int erpret this result as normal/abnormal . [facility]wallAzmhepkETYKWWHOP9729-28-29 14:11:00 Test Item Value Reference Range Interpretation Comments AST (test code = AST) 24 See_Comment N [Auto mated message] The system which ge nerated this result transmit carol reference range : <=37. The reference range was not used to interpr et this result as anoop l/abnormal. [facility]wallUakqnowGSTGLMRJO5647-13-12 14:11:00 Test Item Value Reference Range Interpretation Comments ALT (test code = ALT) 35 See_Comment N [Auto mated message] The system which ge nerated this result transmit carol reference range : <=65. The reference range was not used to interpr et this result as anoop l/abnormal. [facility]wallFmxubscQSNFYXQKF3777-83-62 12:45:00 Test Item Value Reference Range Interpretation Comments U Preg (test code = U Negative (02/14/2012 N Preg) 07:45:00) [facility]landsDpusqgrRVLLCULANB7000-12-77 12:45:00 Test Item Value Reference Range Interpretation Comments UA Urobilinogen (test code = UA 0.2 0.1-1.0 N Urobilinogen) [facility]landsWjmdrupSYKOAPGGVS4874-53-25 12:45:00 Test Item Value Reference Range Interpretation Comments UA Blood (test code = Negative (02/14/2012 N UA Blood) 07:45:00) [facility]landsXfchemhTSPHQDHBGP9575-71-75 12:45:00 Test Item Value Reference Range Interpretation Comments UA Leuk Est (test code Small *ABN*(02/14/2012 A = UA Leuk Est) 07:45:00) [facility]wallQegpqodHOZBABUMIP6137-61-05 12:45:00 Test Item Value Reference Range Interpretation Comments UA Nitrite (test code Negative (02/14/2012 N = UA Nitrite) 07:45:00) [facility]landsRxpfhmgNSHXZKMFOD3530-26-83 12:45:00 Test Item Value Reference Range Interpretation Comments UA Protein (test code Negative (02/14/2012 N = UA Protein) 07:45:00) [facility] CenterEmyzrrsANZUSWOCRE3393-35-72 12:45:00 Test Item Value Reference Range Interpretation Comments UA Ketones (test code Negative = UA Ketones) *NA*(02/14/2012 07:45:00) [facility] CenterPhtlspoMEOKKJYMBD3448-44-57 12:45:00 Test Item Value Reference Range Interpretation Comments UA Spec Grav (test code = UA Spec 1.005 1 Grav) [facility] CenterFjkolctOLJYALDWFP2623-32-09 12:45:00 Test Item Value Reference Range Interpretation Comments UA Glucose (test code Negative (02/14/2012 N = UA Glucose) 07:45:00) [facility] CenterGnnihwyFIYNCVVWGS3566-83-38 12:45:00 Test Item Value Reference Range Interpretation Comments UA Bili (test code = Negative *NA*(02/14/2012 UA Bili) 07:45:00) [facility] CenterKeotyvbKIGGRIHWZP5477-12-46 12:45:00 Test Item Value Reference Range Interpretation Comments UA pH (test code = UA pH) 7.5 1 5.0-8.0 N [facility] CenterZnhhptrFEPKVRRYNA0666-79-99 12:45:00 Test Item Value Reference Range Interpretation Comments UA Turbidity (test code = Clear (02/14/2012 N UA Turbidity) 07:45:00) [facility] CenterTqoudpgMMGXMSQPKZ4488-46-73 12:45:00 Test Item Value Reference Range Interpretation Comments UA Color (test code = Yellow *NA*(02/14/2012 UA Color) 07:45:00) [facility] CenterAhzzoblOJDEYJAOBB6640-43-30 12:45:00 Test Item Value Reference Range Interpretation Comments UA Bacteria (test code = None Seen (02/14/2012 N UA Bacteria) 07:45:00) [facility] CenterLamioyeGVYWHCRLXF6844-79-61 12:45:00 Test Item Value Reference Range Interpretation Comments Micro? (test code = Performed (02/14/2012 N Micro?) 07:45:00) [facility] CenterSgibgvdUWQIICRHRM4061-47-19 12:45:00 Test Item Value Reference Range Interpretation Comments UA WBC (test code = UA 0-2 /HPF (02/14/2012 N WBC) 07:45:00) [facility] CenterOnilnxmKTMSXMDZHH5648-43-30 12:45:00 Test Item Value Reference Range Interpretation Comments UA Sq Epi (test code = Rare /LPF (02/14/2012 N UA Sq Epi) 07:45:00) [facility] CnhbzolMQCHRNWXPB7231-96-73 12:45:00 Test Item Value Reference Range Interpretation Comments UA RBC (test None Seen See_Comment N [Automated mes brenda] code = UA RBC) (02/14/2012 The system wh ich 07:45:00) generated this result transmitted ref erence range: <=2. The reference range was not used to int erpret this result as normal/abnormal . [facility]wallPtygjmgFADAVPLEL0703-87-29 12:45:00 Test Item Value Reference Range Interpretation Comments U Preg (test code = U Negative (02/14/2012 N Preg) 07:45:00) [facility]wallNtymxkfXTYJARRIXD6686-14-20 12:45:00 Test Item Value Reference Range Interpretation Comments UA Urobilinogen (test code = UA 0.2 0.1-1.0 N Urobilinogen) [facility]wallOeetmmhTXJSTMQAPO8392-94-04 12:45:00 Test Item Value Reference Range Interpretation Comments UA Blood (test code = Negative (02/14/2012 N UA Blood) 07:45:00) [facility] ZrkixpeSFHACCTZUM0333-94-16 12:45:00 Test Item Value Reference Range Interpretation Comments UA Leuk Est (test code Small *ABN*(02/14/2012 A = UA Leuk Est) 07:45:00) [facility]wallKhwgxnjBTNEUHFOXO0015-75-66 12:45:00 Test Item Value Reference Range Interpretation Comments UA Nitrite (test code Negative (02/14/2012 N = UA Nitrite) 07:45:00) [facility]wallOldlaycQDFNYGPEBR3611-18-25 12:45:00 Test Item Value Reference Range Interpretation Comments UA Protein (test code Negative (02/14/2012 N = UA Protein) 07:45:00) [facility]wallZtbnmyfCQUWXNVZQZ1522-34-65 12:45:00 Test Item Value Reference Range Interpretation Comments UA Ketones (test code Negative = UA Ketones) *NA*(02/14/2012 07:45:00) [facility]wallSipdjuwWPMJYALHCI6897-43-79 12:45:00 Test Item Value Reference Range Interpretation Comments UA Spec Grav (test code = UA Spec 1.005 1 Grav) [facility]wallHdxiveqHGJYLDMYKJ6554-20-57 12:45:00 Test Item Value Reference Range Interpretation Comments UA Glucose (test code Negative (02/14/2012 N = UA Glucose) 07:45:00) [facility]ballKvsprwzCGWCYHCELW1509-37-38 12:45:00 Test Item Value Reference Range Interpretation Comments UA Bili (test code = Negative *NA*(02/14/2012 UA Bili) 07:45:00) [facility] CenterOfwvfplLPSDFBHCUD2709-90-47 12:45:00 Test Item Value Reference Range Interpretation Comments UA pH (test code = UA pH) 7.5 1 5.0-8.0 N [facility]ballLzmcyorGXJKPZWTWM5023-86-50 12:45:00 Test Item Value Reference Range Interpretation Comments UA Turbidity (test code = Clear (02/14/2012 N UA Turbidity) 07:45:00) [facility] CenterAuxzoueHLGXGEDHLR9998-47-93 12:45:00 Test Item Value Reference Range Interpretation Comments UA Color (test code = Yellow *NA*(02/14/2012 UA Color) 07:45:00) [facility] CenterMbjqzjkKAGYGTQCCI8817-40-81 12:45:00 Test Item Value Reference Range Interpretation Comments UA Bacteria (test code = None Seen (02/14/2012 N UA Bacteria) 07:45:00) [facility]ballYtswupaSSLSIFCLPX8180-34-53 12:45:00 Test Item Value Reference Range Interpretation Comments Micro? (test code = Performed (02/14/2012 N Micro?) 07:45:00) [facility] CenterRebruhaBSOCMXRONG2758-97-45 12:45:00 Test Item Value Reference Range Interpretation Comments UA WBC (test code = UA 0-2 /HPF (02/14/2012 N WBC) 07:45:00) [facility]ballKneqnwdVZWRWUUFHZ6764-18-15 12:45:00 Test Item Value Reference Range Interpretation Comments UA Sq Epi (test code = Rare /LPF (02/14/2012 N UA Sq Epi) 07:45:00) [facility] TomballIkbmaoeZDJYWTBLDB8846-90-59 12:45:00 Test Item Value Reference Range Interpretation Comments UA RBC (test None Seen See_Comment N [Automated mes brenda] code = UA RBC) (02/14/2012 The system ich 07:45:00) generated this result transmitted ref erence range: <=2. The reference range was not used to int erpret this result as normal/abnormal . [facility]landsCrqutjnYNKYKLZKB5279-38-09 12:45:00 Test Item Value Reference Range Interpretation Comments U Preg (test code = U Negative (02/14/2012 N Preg) 07:45:00) [facility]landsRzqfhjcCBQSUUVFGQ7623-71-17 12:45:00 Test Item Value Reference Range Interpretation Comments UA Urobilinogen (test code = UA 0.2 0.1-1.0 N Urobilinogen) [facility]landsGereitmOKLTHSQHLL2521-93-24 12:45:00 Test Item Value Reference Range Interpretation Comments UA Blood (test code = Negative (02/14/2012 N UA Blood) 07:45:00) [facility]landsFmodznyHDEGTGMMPZ9862-04-54 12:45:00 Test Item Value Reference Range Interpretation Comments UA Leuk Est (test code Small *ABN*(02/14/2012 A = UA Leuk Est) 07:45:00) [facility]landsZalstnmCLHYDTIUJQ5245-39-53 12:45:00 Test Item Value Reference Range Interpretation Comments UA Nitrite (test code Negative (02/14/2012 N = UA Nitrite) 07:45:00) [facility]landsDjoerfeTASQRCXGOA4935-39-85 12:45:00 Test Item Value Reference Range Interpretation Comments UA Protein (test code Negative (02/14/2012 N = UA Protein) 07:45:00) [facility]landsElknpgdGGLYEMRJGS9306-25-86 12:45:00 Test Item Value Reference Range Interpretation Comments UA Ketones (test code Negative = UA Ketones) *NA*(02/14/2012 07:45:00) [facility]landsDyejpksEJSSIKBMJC5796-29-26 12:45:00 Test Item Value Reference Range Interpretation Comments UA Spec Grav (test code = UA Spec 1.005 1 Grav) [facility]landsThsmxcjHWDHITGJIB6490-65-30 12:45:00 Test Item Value Reference Range Interpretation Comments UA Glucose (test code Negative (02/14/2012 N = UA Glucose) 07:45:00) [facility]landsWiikkpqOKAXYDPXXY9382-81-17 12:45:00 Test Item Value Reference Range Interpretation Comments UA Bili (test code = Negative *NA*(02/14/2012 UA Bili) 07:45:00) [facility]landsMqjwpbaAHOXMITVYU2508-17-36 12:45:00 Test Item Value Reference Range Interpretation Comments UA pH (test code = UA pH) 7.5 1 5.0-8.0 N [facility]wallLxzupaqVQAVTJNDSL0482-25-65 12:45:00 Test Item Value Reference Range Interpretation Comments UA Turbidity (test code = Clear (02/14/2012 N UA Turbidity) 07:45:00) [facility]wallBnftmltBXYUZKSFAB5164-16-11 12:45:00 Test Item Value Reference Range Interpretation Comments UA Color (test code = Yellow *NA*(02/14/2012 UA Color) 07:45:00) [facility]wallLcgmeijPGAAXWZHQH1858-74-57 12:45:00 Test Item Value Reference Range Interpretation Comments UA Bacteria (test code = None Seen (02/14/2012 N UA Bacteria) 07:45:00) [facility]landsGowajxeJUIKAJKATE0985-85-15 12:45:00 Test Item Value Reference Range Interpretation Comments Micro? (test code = Performed (02/14/2012 N Micro?) 07:45:00) [facility]wallTtxtmykFRLCNQBVVX3645-00-61 12:45:00 Test Item Value Reference Range Interpretation Comments UA WBC (test code = UA 0-2 /HPF (02/14/2012 N WBC) 07:45:00) [facility]landsXnqsmlfNZLWDXWRBB1225-28-78 12:45:00 Test Item Value Reference Range Interpretation Comments UA Sq Epi (test code = Rare /LPF (02/14/2012 N UA Sq Epi) 07:45:00) [facility]wallAqhvirtITDXPRDAKZ8572-56-90 12:45:00 Test Item Value Reference Range Interpretation Comments UA RBC (test None Seen See_Comment N [Automated mes brenda] code = UA RBC) (02/14/2012 The system wh ich 07:45:00) generated this result transmitted ref erence range: <=2. The reference range was not used to int erpret this result as normal/abnormal . [facility]wallXldrozgLIXFLVUYR5069-41-79 12:45:00 Test Item Value Reference Range Interpretation Comments U Preg (test code = U Negative (02/14/2012 N Preg) 07:45:00) [facility]wallOnaigtqYCLRUDZGLB0197-20-22 12:45:00 Test Item Value Reference Range Interpretation Comments UA Urobilinogen (test code = UA 0.2 0.1-1.0 N Urobilinogen) [facility]ballRcxaqgzULZKGEVCQZ9176-43-84 12:45:00 Test Item Value Reference Range Interpretation Comments UA Blood (test code = Negative (02/14/2012 N UA Blood) 07:45:00) [facility] CenterOeblsgjVUJUHJFKHK2164-74-72 12:45:00 Test Item Value Reference Range Interpretation Comments UA Leuk Est (test code Small *ABN*(02/14/2012 A = UA Leuk Est) 07:45:00) [facility] CenterQtnplxdTNTJTFDQMY1574-61-14 12:45:00 Test Item Value Reference Range Interpretation Comments UA Nitrite (test code Negative (02/14/2012 N = UA Nitrite) 07:45:00) [facility] CenterHdcuklgFOJSCCBUUU0959-33-44 12:45:00 Test Item Value Reference Range Interpretation Comments UA Protein (test code Negative (02/14/2012 N = UA Protein) 07:45:00) [facility] CenterLgahgkbLCYMOZYOLS5600-87-98 12:45:00 Test Item Value Reference Range Interpretation Comments UA Ketones (test code Negative = UA Ketones) *NA*(02/14/2012 07:45:00) [facility] CenterQgyxinlLMSKUJFGLK6288-47-72 12:45:00 Test Item Value Reference Range Interpretation Comments UA Spec Grav (test code = UA Spec 1.005 1 Grav) [facility] CenterNpwqyjiQYUHTUHREI1362-58-40 12:45:00 Test Item Value Reference Range Interpretation Comments UA Glucose (test code Negative (02/14/2012 N = UA Glucose) 07:45:00) [facility] CenterApsqpwyKILFEVUFTT2506-04-84 12:45:00 Test Item Value Reference Range Interpretation Comments UA Bili (test code = Negative *NA*(02/14/2012 UA Bili) 07:45:00) [facility] CenterAlayltbFMGLCQAOUK6565-39-09 12:45:00 Test Item Value Reference Range Interpretation Comments UA pH (test code = UA pH) 7.5 1 5.0-8.0 N [facility]ballPfhbkuxYTDFJMJULB0338-45-00 12:45:00 Test Item Value Reference Range Interpretation Comments UA Turbidity (test code = Clear (02/14/2012 N UA Turbidity) 07:45:00) [facility] CenterLstnjhgMDESCVDASS5760-97-22 12:45:00 Test Item Value Reference Range Interpretation Comments UA Color (test code = Yellow *NA*(02/14/2012 UA Color) 07:45:00) [facility]wallUknfgitELSBKQDJYE2173-48-79 12:45:00 Test Item Value Reference Range Interpretation Comments UA Bacteria (test code = None Seen (02/14/2012 N UA Bacteria) 07:45:00) [facility]wallIzjxpqdEOJVLJHVCA9444-72-82 12:45:00 Test Item Value Reference Range Interpretation Comments Micro? (test code = Performed (02/14/2012 N Micro?) 07:45:00) [facility]wallYblkcgsLSPUBSZNRQ3338-74-54 12:45:00 Test Item Value Reference Range Interpretation Comments UA WBC (test code = UA 0-2 /HPF (02/14/2012 N WBC) 07:45:00) [facility]wallJuvyybbYTQAUVIBDL5133-37-27 12:45:00 Test Item Value Reference Range Interpretation Comments UA Sq Epi (test code = Rare /LPF (02/14/2012 N UA Sq Epi) 07:45:00) [facility] RockwallZteffucDWPOIUQLWB6088-23-26 12:45:00 Test Item Value Reference Range Interpretation Comments UA RBC (test None Seen See_Comment N [Automated mes brenda] code = UA RBC) (02/14/2012 The system wh ich 07:45:00) generated this result transmitted ref erence range: <=2. The reference range was not used to int erpret this result as normal/abnormal . [facility] VtikzuhAHRBOKUQR5814-33-18 12:45:00 Test Item Value Reference Range Interpretation Comments U Preg (test code = U Negative (02/14/2012 N Preg) 07:45:00) [facility]wallTxseaihAPZTNVOZCW4175-76-12 12:45:00 Test Item Value Reference Range Interpretation Comments UA Urobilinogen (test code = UA 0.2 0.1-1.0 N Urobilinogen) [facility] RockwallUqfbkhlOLXEBCMGET5493-23-64 12:45:00 Test Item Value Reference Range Interpretation Comments UA Blood (test code = Negative (02/14/2012 N UA Blood) 07:45:00) [facility] LtxfevfUAXAUVJUUC3737-03-28 12:45:00 Test Item Value Reference Range Interpretation Comments UA Leuk Est (test code Small *ABN*(02/14/2012 A = UA Leuk Est) 07:45:00) [facility] CenterRlbvbcaHDYOZYPHMM9851-51-66 12:45:00 Test Item Value Reference Range Interpretation Comments UA Nitrite (test code Negative (02/14/2012 N = UA Nitrite) 07:45:00) [facility] CenterRmufrzfLUEJALFMSE2142-92-29 12:45:00 Test Item Value Reference Range Interpretation Comments UA Protein (test code Negative (02/14/2012 N = UA Protein) 07:45:00) [facility] CenterNqbotuoUUMYQWSWZH2146-16-80 12:45:00 Test Item Value Reference Range Interpretation Comments UA Ketones (test code Negative = UA Ketones) *NA*(02/14/2012 07:45:00) [facility] CenterGdfvtibMGFUZRJXQD3341-65-13 12:45:00 Test Item Value Reference Range Interpretation Comments UA Spec Grav (test code = UA Spec 1.005 1 Grav) [facility] CenterEflowtuRGVUGSLVXH9336-70-02 12:45:00 Test Item Value Reference Range Interpretation Comments UA Glucose (test code Negative (02/14/2012 N = UA Glucose) 07:45:00) [facility] CenterFajmqoeLFUBWWJSPN4209-39-40 12:45:00 Test Item Value Reference Range Interpretation Comments UA Bili (test code = Negative *NA*(02/14/2012 UA Bili) 07:45:00) [facility] CenterUjzsdaeVBZTMOOLMZ8679-40-92 12:45:00 Test Item Value Reference Range Interpretation Comments UA pH (test code = UA pH) 7.5 1 5.0-8.0 N [facility] CenterVfxhpmlUGLRAVPZKW9854-70-14 12:45:00 Test Item Value Reference Range Interpretation Comments UA Turbidity (test code = Clear (02/14/2012 N UA Turbidity) 07:45:00) [facility] CenterSxdnyrcMQNMTCEMSV3639-31-08 12:45:00 Test Item Value Reference Range Interpretation Comments UA Color (test code = Yellow *NA*(02/14/2012 UA Color) 07:45:00) [facility] CenterFgjkbjrQZMMZGJKXB2804-60-87 12:45:00 Test Item Value Reference Range Interpretation Comments UA Bacteria (test code = None Seen (02/14/2012 N UA Bacteria) 07:45:00) [facility]widdKGCLKSNUSI5677-06-86 12:45:00 Test Item Value Reference Range Interpretation Comments Micro? (test code = Performed (02/14/2012 N Micro?) 07:45:00) [facility]wallCadhhgwFORROPONUY1938-20-01 12:45:00 Test Item Value Reference Range Interpretation Comments UA WBC (test code = UA 0-2 /HPF (02/14/2012 N WBC) 07:45:00) [facility] RockwallQqlehioRQERVCTGJO5110-65-19 12:45:00 Test Item Value Reference Range Interpretation Comments UA Sq Epi (test code = Rare /LPF (02/14/2012 N UA Sq Epi) 07:45:00) [facility]wallWwmmmcrLNSGUNFIWH6068-93-55 12:45:00 Test Item Value Reference Range Interpretation Comments UA RBC (test None Seen See_Comment N [Automated mes brenda] code = UA RBC) (02/14/2012 The system wh ich 07:45:00) generated this result transmitted ref erence range: <=2. The reference range was not used to int erpret this result as normal/abnormal . [facility] RockwallTeqyuvdCIKHBCOZZ0240-83-62 12:45:00 Test Item Value Reference Range Interpretation Comments U Preg (test code = U Negative (02/14/2012 N Preg) 07:45:00) [facility]wallQlnrrohZGBAVXDNOB7859-23-74 12:45:00 Test Item Value Reference Range Interpretation Comments UA Urobilinogen (test code = UA 0.2 0.1-1.0 N Urobilinogen) [facility]wallWyukdpmZNPAARVJOB9700-57-13 12:45:00 Test Item Value Reference Range Interpretation Comments UA Blood (test code = Negative (02/14/2012 N UA Blood) 07:45:00) [facility] RockwallYxvbwxkLFOYQFFJAK0400-10-99 12:45:00 Test Item Value Reference Range Interpretation Comments UA Leuk Est (test code Small *ABN*(02/14/2012 A = UA Leuk Est) 07:45:00) [facility] RockwallBeyfarbKEAGGRCVAT2804-13-55 12:45:00 Test Item Value Reference Range Interpretation Comments UA Nitrite (test code Negative (02/14/2012 N = UA Nitrite) 07:45:00) [facility] RockwallKiklyfvYQWFERTRAJ2290-75-61 12:45:00 Test Item Value Reference Range Interpretation Comments UA Protein (test code Negative (02/14/2012 N = UA Protein) 07:45:00) [facility] CenterRhzhngmXNKMVTBOXU4338-06-92 12:45:00 Test Item Value Reference Range Interpretation Comments UA Ketones (test code Negative = UA Ketones) *NA*(02/14/2012 07:45:00) [facility] CenterObpydyhTIDMWOLLUO3551-26-45 12:45:00 Test Item Value Reference Range Interpretation Comments UA Spec Grav (test code = UA Spec 1.005 1 Grav) [facility] CenterLqrpiaiQZVYSQFYGJ4209-04-93 12:45:00 Test Item Value Reference Range Interpretation Comments UA Glucose (test code Negative (02/14/2012 N = UA Glucose) 07:45:00) [facility] CenterGrgxzswYZTDRBKZLB4225-02-29 12:45:00 Test Item Value Reference Range Interpretation Comments UA Bili (test code = Negative *NA*(02/14/2012 UA Bili) 07:45:00) [facility] CenterTcjzpvqCCSKEINHNO8485-75-27 12:45:00 Test Item Value Reference Range Interpretation Comments UA pH (test code = UA pH) 7.5 1 5.0-8.0 N [facility] CenterPahensdDSWEFSITRF8686-55-47 12:45:00 Test Item Value Reference Range Interpretation Comments UA Turbidity (test code = Clear (02/14/2012 N UA Turbidity) 07:45:00) [facility] CenterDptugobFPEXPALRFZ0962-36-03 12:45:00 Test Item Value Reference Range Interpretation Comments UA Color (test code = Yellow *NA*(02/14/2012 UA Color) 07:45:00) [facility] CenterRuicfvnVVVILWEOKP1323-65-31 12:45:00 Test Item Value Reference Range Interpretation Comments UA Bacteria (test code = None Seen (02/14/2012 N UA Bacteria) 07:45:00) [facility] [id number] 12:45:00 Test Item Value Reference Range Interpretation Comments Micro? (test code = Performed (02/14/2012 N Micro?) 07:45:00) [id number] 12:45:00 Test Item Value Reference Range Interpretation Comments UA WBC (test code = UA 0-2 /HPF (02/14/2012 N WBC) 07:45:00) [id number] 12:45:00 Test Item Value Reference Range Interpretation Comments UA Sq Epi (test code = Rare /LPF (02/14/2012 N UA Sq Epi) 07:45:00) [id number] 12:45:00 Test Item Value Reference Range Interpretation Comments UA RBC (test None Seen See_Comment N [Automated mes brenda] code = UA RBC) (02/14/[address] [facility] 07:45:00) generated this result transmitted ref erence range: <=2. The reference range was not used to int erpret this result as normal/abnormal . [facility]
[2022-12-13 22:35] LABS: Urine Blood Negative (Negative); Urine Glucose Negative (Negative); Urine Protein Negative (Negative); Urine Specific Gravity 1.015 (1.005-1.030)
--- NOTE | 2022-12-13 22:35 | RAD REPORT ---
EXAM DESCRIPTION: RAD - Chest Single View - 12/13/2022 10:28 pm CLINICAL HISTORY: COUGH Chest pain. COMPARISON: Chest Single View dated 07/03/2021; Chest Single View dated 09/03/2020; Chest Single View dated 12/28/2018; Chest Single View dated 12/26/2017 FINDINGS: Portable technique limits examination quality. The lungs are grossly clear. The heart is mildly enlarged in size. No displaced fractures. IMPRESSION: No acute intrathoracic process suspected.
--- NOTE | 2022-12-13 22:35 | RAD REPORT ---
EXAM DESCRIPTION: CT - Head C Spine Cap Wo Con - 12/13/2022 10:24 pm CLINICAL HISTORY: Trauma, head and neck injury. Chest, abdomen and pelvis pain. CONFUSED COMPARISON: Head C Spine Cap Wo Con dated 12/08/2022; Head C Spine Cap Wo Con dated 12/16/2021; Head C Spine Cap W Con dated 07/03/2021 TECHNIQUE: CT head without contrast. CT cervical spine without contrast with coronal and sagittal reformatted images. CT chest, abdomen and pelvis without contrast with coronal and sagittal reformatted images of the [facility] [place]. All CT scans are performed using dose optimization technique as appropriate and may include automated exposure control or mA/KV adjustment according to patient size. FINDINGS: CT HEAD WITHOUT CONTRAST: No intracranial hemorrhage, hydrocephalus or extra-axial fluid collection. Mild generalized brain atr ophy is present with mild periventricular and deep white matter chronic microvascular ischemic change s. No areas of brain edema or midline shift. The paranasal sinuses and mastoids are clear. The calvarium is intact. CT CERVICAL SPINE WITHOUT CONTRAST: No fracture or subluxation. Mild to moderate upper cervical degenerative spondylosis. The prevertebra l soft tissues are normal in thickness. CT CHEST, ABDOMEN, PELVIS WITHOUT CONTRAST: NOTE: Lack of contrast is a significant limitation in the assessment of trauma related findings. Spec ifically, solid organ, vascular and bowel evaluation is significantly limited. Mild linear atelectasis is seen in both lung bases.No focal consolidation suspected.No pneumothorax o r pericardial/pleural fluid. No evidence of intra-abdominal visceral injury, free fluid or free air is seen within the above detai led limitations. Punctate right renal calculi without hydronephrosis. Significant retained stool is p resent throughout the colon. No concerning pelvic findings. Right total hip arthroplasty is present. Diffuse osteopenia is seen. Multiple wedge compression fractures are present lower thoracic vertebral bodies. No significant change is seen since 12/08/2022. IMPRESSION: Negative for acute traumatic findings within the above detailed limitations. Significant fecal retention throughout the colon.
--- NOTE | 2022-12-13 22:36 | RAD REPORT ---
EXAM DESCRIPTION: RAD - Hip Right 2 View - 12/13/2022 10:28 pm CLINICAL HISTORY: PAIN COMPARISON: No comparisons FINDINGS: Right total hip arthroplasty is noted. No evidence of hardware loosening or malalignment. Skin precious are noted laterally.
[2022-12-13] MEDS ORDERED: NA CHLORIDE 0.9% 1,000 ML ONE (22:58)
[2022-12-13 23:56] LABS: Protime INR 0.94
[2022-12-13 23:59] LABS: Absolute Lymphocytes (CBC) 0.9 K/uL (0.7-4.9); Hematocrit 25.4 % (36.0-45.0); Lymphocytes % 15.1 % (15.3-44.8); MCV 94.8 fL (80-100); MPV 9.1 fL (7.6-11.3); RBC Red Blood Cell Count 2.67 M/uL (3.86-4.86)
[2022-12-14 00:15] LABS: Albumin 2.5 g/dL (3.4-5.0); Bilirubin Direct 0.1 mg/dL (0-0.2); Bilirubin Total 0.3 mg/dL (0.2-1.0); Magnesium 2.1 mg/dL (1.6-2.4); Protein, Total 5.3 g/dL (6.4-8.2)
[2022-12-14 00:16] LABS: Troponin High Sensitivity 8.8 pg/mL (<58.9)
[2022-12-14 00:17] LABS: Urine Bacteria <20 /HPF (<20); Urine RBC None Seen /HPF (None Seen)
[2022-12-14 00:22] LABS: Barbiturates NEGATIVE (NEGATIVE); Benzodiazepines NEGATIVE (NEGATIVE); Cocaine NEGATIVE (NEGATIVE); METHAMPHETAM NEGATIVE (NEGATIVE); Methadone NEGATIVE (NEGATIVE); Opiates NEGATIVE (NEGATIVE); Phencyclidine NEGATIVE (NEGATIVE); THC Cannibis NEGATIVE (NEGATIVE)
[2022-12-14 00:31] LABS: SARS-COV-2 RT PCR NEGATIVE (NEGATIVE)
[2022-12-14] MEDS ORDERED: FENTANYL CITR 100 MCG/2 ML ONE (01:04)
[2022-12-14] MEDS ORDERED: ONDANSETRON 4 MG/2 ML VIAL ONE (01:04)
[2022-12-14 04:51] VITALS: TEMP 98.2
[2022-12-14 04:56] VITALS: BP 126/62; O2SAT 96
--- NOTE | 2022-12-14 11:56 | RAD REPORT ---
EXAM DESCRIPTION: US - Extrem Venous W Compress [place] - 12/14/2022 12:04 am CLINICAL HISTORY: The patient is 67 years old and is Female; Pain;Swelling [facility] MAIN TECHNIQUE: Real-time duplex ultrasound scan of the bilateral lower extremity veins integrating B-mod e two-dimensional vascular structure, Doppler spectral analysis, color flow Doppler imaging and compr ession. COMPARISON: No relevant prior studies available. FINDINGS: RIGHT DEEP VEINS: Unremarkable. No DVT in the right common femoral, femoral, proximal deep femoral or popliteal veins. The veins demonstrate normal color flow, are normally compressibl e, with normal phasic flow and/or augmentation response. RIGHT SUPERFICIAL VEINS: Unremarkable. No thrombus in the visualized right great saphenous vein. LEFT DEEP VEINS: Unremarkable. No DVT in the left common femoral, femoral, proximal deep femoral or popliteal veins. The veins demonstrate normal color flow, are normally compressible, with anoop l phasic flow and/or augmentation response. LEFT SUPERFICIAL VEINS: Unremarkable. No thrombus in the visualized left great saphenous vein. IMPRESSION: Unremarkable bilateral lower extremity duplex venous ultrasound. Electronically signed by: Benoit Huber MD 12/14/2022 12:22 AM PETROPHYSICAL ENGINEER Due to temporary technical issues with the PACS/Fluency reporting system, reports are being signed by the in house radiologists without review as a courtesy to insure prompt reporting. The interpreting radiologist is fully responsible for the content of the report.
--- NOTE | 2022-12-17 13:15 | EKG ---
Test Date: 2022-12-13 Test Time: 22:42:55 Home Builder: HUMBERTO MEASUREMENT RESULTS: Intervals: Rate: 60 AL: 140 QRSD: 86 QT: 444 QTc: 444 [place]: P: 75 AL: 140 QRS: 50 T: -10 INTERPRETIVE STATEMENTS: Sinus rhythm with premature atrial complexes with aberrant conduction Nonspecific ST and T wave abnormality Abnormal ECG Compared to ECG 06/21/2021 21:01:11 Atrial premature complex(es) now present Aberrant conduction of supraventricular beat(s) now present ST (T wave) deviation now present Short AL interval no longer present Electronically Signed On 12-17-22 13:08:41 CDT by Maurisio Wright
--- NOTE | 2022-12-28 15:16 | ER ---
Nurse's Notes [facility] Name: Chica Flores Age: 67 yrs Sex: Female : 1955 Arrival Date: 12/13/2022 Time: 21:34 Bed 7 Private MD: Diagnosis: Fall on same level, unspecified;Pain in right hip-hematoma Presentation: 12/13 21:34 Chief complaint: EMS states: called out for AMS. EMS reports pt is at her baseline. as6 Coronavirus screen: At this time, the client does not indicate any symptoms associated with coronavirus-19. Ebola Screen: No symptoms or risks identified at this time. Initial Sepsis Screen: Does the patient meet any 2 criteria? No. Patient's initial sepsis screen is negative. Does the patient have a suspected source of infection? No. Patient's initial sepsis screen is negative. Risk Assessment: Do you want to hurt yourself or someone else? Patient reports no desire to harm self or others. Onset of symptoms was December 13, 2022. 21:34 Method Of Arrival: EMS: [facility] as6 21:34 Acuity: ANITA 3 as6 Triage Assessment: 21:34 General: Appears comfortable, Behavior is cooperative. Pain: Complains of pain in right ha1 hip Pain does not radiate. Pain currently is 6 out of 10 on a pain scale. Neuro: Level of Consciousness is awake, alert, obeys commands, Oriented to person, place, time. Cardiovascular: Capillary refill < 3 seconds Patient's skin is warm and dry. Respiratory: Airway is patent Respiratory effort is even, unlabored, Respiratory pattern is regular, symmetrical. GI: Abdomen is flat, non-distended. : Urine is clear. Derm: Skin is fragile. Musculoskeletal: wound on the right hip. 12/14 04:44 General:. ha1 Historical: - Allergies: 12/13 21:36 PENICILLINS; as6 21:36 steroids; Allergy to Oral Steroids, IV is fine; as6 - PMHx: 21:36 ADD/ADHD; Colitis; Depression; Osteoporosis; Anxiety; PTSD; ulcerative ulcer; as6 - PSHx: 21:36 hip repair; as6 - Immunization history:: Adult Immunizations up to date. - Social history:: Smoking status: Patient denies any tobacco usage or history of. - Family history:: not pertinent. Screenin:30 Abuse screen: Denies threats or abuse. Denies injuries from another. Nutritional ha1 screening: No deficits noted. Tuberculosis screening: No symptoms or risk factors identified. Assessment: 21:34 Reassessment: see triage assessment. ha1 22:50 Reassessment: Patient and/or family updated on plan of care and expected duration. Pain ha1 level reassessed. Patient is alert, oriented x 3, equal unlabored respirations, skin warm/dry/pink. 23:50 Reassessment: Patient and/or family updated on plan of care and expected duration. Pain ha1 level reassessed. Patient is alert, oriented x 3, equal unlabored respirations, skin warm/dry/pink. pain on the right hip 06/16. 12/14 01:10 Reassessment: called correction to give report to nurse. no response from nurse. ha1 01:41 Reassessment: Patient is alert, oriented x 3, equal unlabored respirations, skin ha1 warm/dry/pink. awaiting for transportation. 02:15 Reassessment: report given to nurse. ha1 03:15 Reassessment: Patient and/or family updated on plan of care and expected duration. Pain ha1 level reassessed. Patient is alert, oriented x 3, equal unlabored respirations, skin warm/dry/pink. awaiting on transportation. 04:15 Reassessment: Patient and/or family updated on plan of care and expected duration. Pain ha1 level reassessed. Patient is alert, oriented x 3, equal unlabored respirations, skin warm/dry/pink. delay on discharged was due to correction not making arrangements for transportation. Vital Signs: 12/13 21:34 BP 131 / 65; Pulse 71; Resp 18 S; Temp 98.2(O); Pulse Ox 97% on R/A; Weight 49.9 kg as6 (R); Height 5 ft. 6 in. (R); Pain 07/16; 22:30 BP 123 / 74; Pulse 65; Resp 18 S; Pulse Ox 98% on R/A; ha1 23:30 BP 134 / 73; Pulse 65; Resp 16; Pulse Ox 98% on R/A; ha1 12/14 00:30 BP 134 / 77; Pulse 58; Resp 18 S; Pulse Ox 100% on R/A; ha1 01:30 BP 126 / 62; Pulse 60; Resp 18 S; Pulse Ox 96% on R/A; ha1 03:20 BP 124 / 63; Pulse 63; Resp 18 S; Pulse Ox 96% on R/A; ha1 04:00 BP 127 / 70; Pulse 61; Resp 18 S; Pulse Ox 96% on R/A; ha1 12/13 21:34 Body Mass Index 17.75 (49.90 kg, 167.64 cm) as6 12/13 21:34 Pain Scale: Adult as6 NIH Stroke Scale Scores: 12/13 22:26 NIHSS Score: 0 [facility] ED Course: 21:34 Patient arrived in ED. as6 21:36 Triage completed. as6 21:36 Arm band placed on. as6 21:36 Bed in low position. Call light in reach. Side rails up X2. as6 21:40 Geovanni March MD is Attending Physician. [facility] 21:52 Anders Richardson, ROBERT is Primary Nurse. as6 22:26 Head C Spine Cap Wo Con In Process Unspecified. EDMS 22:29 XRAY Chest (1 view) In Process Unspecified. EDMS 22:29 Hip Right 2 View XRAY In Process Unspecified. EDMS 12/14 00:09 US Extremity Venous W Compression Shalom In Process Unspecified. EDMS 00:26 Walt Urbina MD is Referral Physician. [facility] 04:30 No provider procedures requiring assistance completed. IV discontinued, intact, ha1 bleeding controlled, No redness/swelling at site. Pressure dressing applied. Administered Medications: 12/13 22:57 Drug: NS 0.9% IV 1000 ml Route: IV; Rate: 125 ml/hr; Site: right forearm; as6 12/14 04:00 Follow up: Response: No adverse reaction; IV Intake: 600ml ha1 01:08 Drug: Ondansetron IVP 4 mg Route: IVP; Site: right forearm; ha1 01:30 Follow up: Response: No adverse reaction ha1 01:12 Drug: fentaNYL (PF) IVP 25 mcg Route: IVP; Site: right forearm; ha1 01:30 Follow up: Response: No adverse reaction; Pain is decreased; RASS: Alert and Calm (0) ha1 03:30 Drug: fentaNYL (PF) IVP 25 mcg Route: IVP; Site: right forearm; ha1 04:00 Follow up: Response: No adverse reaction; Pain is decreased; RASS: Alert and Calm (0) ha1 Medication: 04:30 VIS not applicable for this client. ha1 Intake: 04:00 IV: 600ml; Total: 600ml. ha1 Outcome: 00:27 Discharge ordered by . wen 04:30 Discharged to correction. Report called to [facility] [place] 04:30 Condition: stable 04:30 Discharge instructions given to patient, family, Instructed on discharge instructions, follow up and referral plans. Demonstrated understanding of instructions, follow-up care. 04:43 Patient left the ED. ha1 NIH Stroke Scale - NIH Stroke Score Date: 12/13/2022 Time: 22:26 Total Score = 0 10. Dysarthria (speech clarity - read or repeat words) - 0(Normal) 11. Extinction and Inattention (visual/tactile/auditory/spatial/personal) - 0(No abnormality) 1a. Level of Consciousness (LOC) - 0(Alert) 1b. Level of Consciousness (LOC) (Month \T\ Age) - 0(Both) 1c. LOC Commands (Open \T\ Closes Eyes/In Home Baby Sitter) - 0(Both) 2. Best Gaze (Lateral Gaze Paresis) - 0(Normal) 3. Visual Field Loss - 0(No visual loss) 4. Facial Palsy - 0(Normal) 5a. Left Arm: Motor (10-second hold) - 0(No drift) 5b. Right Arm: Motor (10-second hold) - 0(No drift) 6a. Left Leg: Motor (5-second hold - always test supine) - 0(No drift) 6b. Right Leg: Motor (5-second hold - always test supine) - 0(No drift) 7. Limb Ataxia (finger/nose \T\ heel/boo - test with eyes open) - 0(Absent) 8. Sensory Loss (pinprick arms/legs/face) - 0(Normal) 9. Best Language: Aphasia (description/naming/reading) - 0(No aphasia) Initials: wen Signatures: Dispatcher [employer] EDGeovanni Hou MD MD cha Slawson, Ashby, RN RN as6 Daniella Ba RN RN ha1 Corrections: (The following items were deleted from the chart) 01:13 01:12 Ondansetron IVP 4 mg IVP in right forearm ha1 ha1
--- NOTE | 2022-12-28 15:17 | EDPHYS ---
Physician Documentation [facility] [place], [place] Name: Chica Flores Age: 67 yrs Sex: Female : 1955 Arrival Date: 12/13/2022 Time: 21:34 Bed 7 Private MD: ED Physician Geovanni March HPI: 12/13 22:26 This 67 yrs old Female presents to ER via EMS with complaints of hip pain, wen ams. 22:26 The patient or guardian reports decreased range of motion, an injury, pain. that wen occurred at home. The complaints affect the right hip. Onset: The symptoms/episode began/occurred today. Modifying factors: The symptoms are alleviated by nothing, the symptoms are aggravated by nothing. The patient presents with trouble concentrating, just took evening meds. Onset: The symptoms/episode began/occurred 3 day(s) ago. Possible causes: unknown. Associated signs and symptoms: Pertinent positives: confusion. Severity of symptoms: At their worst the symptoms were mild, in the emergency department the symptoms are unchanged. Historical: - Allergies: 21:36 PENICILLINS; as6 21:36 steroids; Allergy to Oral Steroids, IV is fine; as6 - PMHx: 21:36 ADD/ADHD; Colitis; Depression; Osteoporosis; Anxiety; PTSD; ulcerative ulcer; as6 - PSHx: 21:36 hip repair; as6 - Immunization history:: Adult Immunizations up to date. - Social history:: Smoking status: Patient denies any tobacco usage or history of. - Family history:: not pertinent. ROS: 22:26 Constitutional: Negative for fever, chills, and weight loss, Eyes: Negative for injury, wen pain, redness, and discharge, ENT: Negative for injury, pain, and discharge, Neck: Negative for injury, pain, and swelling, Cardiovascular: Negative for chest pain, palpitations, and edema, Respiratory: Negative for shortness of breath, cough, wheezing, and pleuritic chest pain, Abdomen/GI: Negative for abdominal pain, nausea, vomiting, diarrhea, and constipation, Back: Negative for injury and pain, MS/Extremity: Negative for injury and deformity, Skin: Negative for injury, rash, and discoloration, Neuro: Negative for headache, weakness, numbness, tingling, and seizure, Psych: Negative for depression, anxiety, suicide ideation, homicidal ideation, and hallucinations, Allergy/Immunology: Negative for hives, rash, and allergies, Endocrine: Negative for neck swelling, polydipsia, polyuria, polyphagia, and marked weight changes, Hematologic/Lymphatic: Negative for swollen nodes, abnormal bleeding, and unusual bruising. 22:26 : Positive for injury or acute deformity, recent replacement. Exam: 22:26 Constitutional: This is a well developed, well nourished patient who is awake, alert, wen and in no acute distress. Head/Face: Normocephalic, atraumatic. Eyes: Pupils equal round and reactive to light, extra-ocular motions intact. Lids and lashes normal. Conjunctiva and sclera are non-icteric and not injected. Cornea within normal limits. Periorbital areas with no swelling, redness, or edema. ENT: Nares patent. No nasal discharge, no septal abnormalities noted. Tympanic membranes are normal and external auditory canals are clear. Oropharynx with no redness, swelling, or masses, exudates, or evidence of obstruction, uvula midline. Mucous membranes moist. Neck: Trachea midline, no thyromegaly or masses palpated, and no cervical lymphadenopathy. Supple, full range of motion without nuchal rigidity, or vertebral point tenderness. No Meningismus. Chest/axilla: Normal chest wall appearance and motion. Nontender with no deformity. No lesions are appreciated. Cardiovascular: Regular rate and rhythm with a normal S1 and S2. No gallops, murmurs, or rubs. Normal PMI, no JVD. No pulse deficits. Respiratory: Lungs have equal breath sounds bilaterally, clear to auscultation and percussion. No rales, rhonchi or wheezes noted. No increased work of breathing, no retractions or nasal flaring. Abdomen/GI: Soft, non-tender, with normal bowel sounds. No distension or tympany. No guarding or rebound. No evidence of tenderness throughout. Back: No spinal tenderness. No costovertebral tenderness. Full range of motion. Female : Normal external genitalia. Skin: Warm, dry with normal turgor. Normal color with no rashes, no lesions, and no evidence of cellulitis. Neuro: Awake and alert, GCS 15, oriented to person, place, time, and situation. Cranial nerves II-XII grossly intact. Motor strength 5/5 in all extremities. Sensory grossly intact. Cerebellar exam normal. Normal gait. Psych: Awake, alert, with orientation to person, place and time. Behavior, mood, and affect are within normal limits. 22:26 Musculoskeletal/extremity: ROM: intact in all extremities, full active range of motion, full passive range of motion, Circulation is intact in all extremities. Sensation intact. Compartment Syndrome exam of affected extremity: is normal. DVT Exam: pain, swelling, tenderness, of the right leg. 23:19 ECG was reviewed by the Attending Physician. wen Vital Signs: 21:34 BP 131 / 65; Pulse 71; Resp 18 S; Temp 98.2(O); Pulse Ox 97% on R/A; Weight 49.9 kg as6 (R); Height 5 ft. 6 in. (R); Pain 10/10; 22:30 BP 123 / 74; Pulse 65; Resp 18 S; Pulse Ox 98% on R/A; ha1 23:30 BP 134 / 73; Pulse 65; Resp 16; Pulse Ox 98% on R/A; ha1 03 00:30 BP 134 / 77; Pulse 58; Resp 18 S; Pulse Ox 100% on R/A; ha1 01:30 BP 126 / 62; Pulse 60; Resp 18 S; Pulse Ox 96% on R/A; ha1 03:20 BP 124 / 63; Pulse 63; Resp 18 S; Pulse Ox 96% on R/A; ha1 04:00 BP 127 / 70; Pulse 61; Resp 18 S; Pulse Ox 96% on R/A; ha1 12/13 21:34 Body Mass Index 17.75 (49.90 kg, 167.64 cm) as6 12/13 21:34 Pain Scale: Adult as6 NIH Stroke Scale Scores: 12/13 22:26 NIHSS Score: 0 wen MDM: 21:40 Patient medically screened. wen 22:36 Differential diagnosis: hip fracture, intertrochanteric fracture, arthritis. wen Differential Diagnosis: electrolyte abnormality, hypoglycemia, intracranial bleed, overdose, UTI, volume depletion. Data reviewed: vital signs, nurses notes, lab test result(s), EKG, radiologic studies, CT scan, plain films. Consideration of Admission/Observation Patient was admitted/placed on observation. Escalation of care including admission/observation considered. I considered the following discharge prescriptions or medication management in the emergency department Medications were administered in the Emergency Department. See MAR. Independent interpretation of the following test(s) in the Emergency Department EKG: See my EKG interpretation above. Care significantly affected by the following chronic conditions: adha, colitis, anxiety, ptsd. 12/13 21:41 Order name: Basic Metabolic Panel; Complete Time: 00:19 [facility] 12/13 21:41 Order name: CBC with Diff; Complete Time: 00:10 [facility] 12/13 21:41 Order name: LFT's; Complete Time: 00:19 [facility] 12/13 21:41 Order name: Magnesium; Complete Time: 00:19 [facility] 12/13 21:41 Order name: NT PRO-BNP; Complete Time: 00:19 [facility] 12/13 21:41 Order name: PT-INR; Complete Time: 00:10 [facility] 12/13 21:41 Order name: Troponin HS; Complete Time: 00:19 [facility] 12/13 21:41 Order name: COVID-19/FLU A+B; Complete Time: 00:34 [facility] 12/13 21:41 Order name: Urine Microscopic Only; Complete Time: 00:19 [facility] 12/13 21:41 Order name: Lipase; Complete Time: 00:19 [facility] 12/13 22:12 Order name: UDS; Complete Time: 00:32 [facility] 12/13 22:35 Order name: Urine Dipstick-Ancillary; Complete Time: 23:14 [facility] 12/13 21:41 Order name: XRAY Chest (1 view); Complete Time: 23:14 [facility] 12/13 22:11 Order name: Hip Right 2 View XRAY; Complete Time: 23:14 [facility] 12/13 22:19 Order name: Head C Spine Cap Wo Con; Complete Time: 23:14 [facility] 12/13 23:14 Order name: US Extremity Venous W Compression Shalom [facility] 12/13 21:41 Order name: EKG; Complete Time: 21:42 [facility] 12/13 21:41 Order name: Cardiac monitoring; Complete Time: 23:47 [facility] 12/13 21:41 Order name: EKG - Nurse/Tech; Complete Time: 23:04 [facility] 12/13 21:41 Order name: IV Saline Lock; Complete Time: 23:10 [facility] 12/13 21:41 Order name: Labs collected and sent; Complete Time: 23:47 [facility] 12/13 21:41 Order name: O2 Per Protocol; Complete Time: 22:51 [facility] 12/13 21:41 Order name: O2 Sat Monitoring; Complete Time: :51 [facility] 12/13 21:41 Order name: Urine Dipstick-Ancillary (obtain specimen); Complete Time: :51 [facility] EC:19 Rate is 60 beats/min. Rhythm is regular. QRS [place] is Normal. OR interval is normal. QRS wen interval is normal. QT interval is normal. No Q waves. T waves are Inverted in leads III, aVF, V1, V2, V3, V4, V5, V6. No ST changes noted. Clinical impression: NSR w/ Non-specific ST/T Changes. Interpreted by me. Reviewed by me. Administered Medications: 22:57 Drug: NS 0.9% IV 1000 ml Route: IV; Rate: 125 ml/hr; Site: right forearm; as6 12/14 04:00 Follow up: Response: No adverse reaction; IV Intake: 600ml ha1 01:08 Drug: Ondansetron IVP 4 mg Route: IVP; Site: right forearm; ha1 01:30 Follow up: Response: No adverse reaction ha1 01:12 Drug: fentaNYL (PF) IVP 25 mcg Route: IVP; Site: right forearm; ha1 01:30 Follow up: Response: No adverse reaction; Pain is decreased; RASS: Alert and Calm (0) ha1 03:30 Drug: fentaNYL (PF) IVP 25 mcg Route: IVP; Site: right forearm; ha1 04:00 Follow up: Response: No adverse reaction; Pain is decreased; RASS: Alert and Calm (0) ha1 Disposition Summary: 12/14/22 00:27 Discharge Ordered Location: Home wen Problem: new wen Symptoms: have improved wen Condition: Stable wen Diagnosis - Fall on same level, unspecified wen - Pain in right hip - hematoma wen Followup: wen - With: Private Physician - When: 2 - 3 days - Reason: Recheck today's complaints, Continuance of care, Re-evaluation by your physician Followup: wen - With: Walt Urbina MD - When: 2 - 3 days - Reason: Recheck today's complaints, Continuance of care, Re-evaluation by your physician Discharge Instructions: - Discharge Summary Sheet wen - Joint Pain wen - Fall Prevention in the Home, Adult wen - Weakness wen - How to Use Cold Therapy, [id number] wen - Hip Pain wen - Weakness, [id number] wen Forms: - Medication Reconciliation Form wen - Thank You Letter wen - Antibiotic Education wen - Prescription Opioid Use wen - SBAR form kj1 NIH Stroke Scale - NIH Stroke Score Date: 12/13/2022 Time: 22:26 Total Score = 0 10. Dysarthria (speech clarity - read or repeat words) - 0(Normal) 11. Extinction and Inattention (visual/tactile/auditory/spatial/personal) - 0(No abnormality) 1a. Level of Consciousness (LOC) - 0(Alert) 1b. Level of Consciousness (LOC) (Month \T\ Age) - 0(Both) 1c. LOC Commands (Open \T\ Closes Eyes/Official Court Interpreter) - 0(Both) 2. Best Gaze (Lateral Gaze Paresis) - 0(Normal) 3. Visual Field Loss - 0(No visual loss) 4. Facial Palsy - 0(Normal) 5a. Left Arm: Motor (10-second hold) - 0(No drift) 5b. Right Arm: Motor (10-second hold) - 0(No drift) 6a. Left Leg: Motor (5-second hold - always test supine) - 0(No drift) 6b. Right Leg: Motor (5-second hold - always test supine) - 0(No drift) 7. Limb Ataxia (finger/nose \T\ heel/boo - test with eyes open) - 0(Absent) 8. Sensory Loss (pinprick arms/legs/face) - 0(Normal) 9. Best Language: Aphasia (description/naming/reading) - 0(No aphasia) Initials: [facility] Signatures: Dispatcher [employer] EDMS Geovanni March MD MD cha Slawson, Ashby RN RN as6 Daniella Ba, RN RN ha1 Corrections: (The following items were deleted from the chart) 12/13 22:18 22:12 Head C Spine Cap Wo Con+CT.RAD.BRZ ordered. EDMS EDMS 22:19 21:42 Head Brain Wo Cont+CT.RAD.BRZ ordered. EDMS EDMS
== END 2022-12-14 04:43 | disposition home or self-care (01) ==
LOC: ER 21:24
DX: S70.01XA Contusion of right hip, initial encounter (principal); Z96.641 Presence of right artificial hip joint; Z88.0 Allergy status to penicillin; Z88.8 Allergy status to other drugs, medicaments and biological substances; Z20.822 Contact with and (suspected) exposure to COVID-19
CPT/HCPCS: 93005; 85025; 80048; 36415; 83735; 85610; 80076; 84484; 83690; 83880; 0240U; 80307; 70450; 71250; 72125; 71045; 73502; 93970; 96375; 96374; 99284; J3010; J2405; J7030; 81003; 81015

== ENCOUNTER 2022-12-26 13:07 | Observation (INO) | payer BC, OTHER ==
--- OUTSIDE RECORDS SUMMARY | 2022-12-26 13:26 | XMS REPORT | Continuity of Care Document ---
:1955 Author Organization [facility] t Address [address] [place] [address] Care Team Providers Name Role Phone DR JESSI MEDINA Primary Care Physician Unavailable LICO GR Attending Clinician Unavailable DR RAE COELLO Attending Clinician Unavailable Lico Gr MD Attending Clinician [phone] Joe Najera Attending Clinician Aime JONES, [place] Attending Clinician Unavailable DESTINEE CASANOVA Attending Clinician Unavailable Yojana Max MD Attending Clinician Destinee Casanova MD Attending Clinician HECTOR COFFMAN Attending Clinician Unavailable Chepe Camejo DO Attending Clinician Hector Coffman DO Attending Clinician NORBERTO VASQUEZ Attending Clinician Unavailable Norberto Vasquez MD Attending Clinician KRYSTAL MIRANDA Attending Clinician Unavailable Chiqui Rosen DO Attending Clinician Alexi PRICE, Krystal Owens Attending Clinician Marybeth Turcios DO Attending Clinician Ezio PRICE, [place] Attending Clinician Olga JONES, [place] Attending Clinician RODRICK TOMLINSON Attending Clinician Unavailable Norberto Cortes Attending Clinician Davi PRICE, Rodrick Attending Clinician Doctor Unassigned, [place] Attending Clinician Unavailable FRANCES TERRY Attending Clinician Unavailable James Allen DO Attending Clinician Jhonatan Lombardo MD Attending Clinician Stan PRICE, Eri Brownlee Attending Clinician [phone] Mara PRICE, Frances Attending Clinician MONIQUE OTOOLE Attending Clinician Unavailable Germán JONES, Rosaura Attending Clinician Unavailable CHIQUI ROSEN Attending Clinician Unavailable DR RAE COELLO Admitting Clinician Unavailable DESTINEE CASANOVA Admitting Clinician Unavailable Destinee Casanova MD Admitting Clinician HECTOR COFFMAN Admitting Clinician Unavailable Hector Coffman DO Admitting Clinician NORBERTO VASQUEZ Admitting Clinician Unavailable KRYSTAL MIRANDA Admitting Clinician Unavailable Alexi PRICE, Krystal Owens Admitting Clinician RODRICK TOMLINSON Admitting Clinician Unavailable Rodrick Tomlinson MD Admitting Clinician ERI OTOOLE Admitting Clinician Unavailable Eri Otoole MD Admitting Clinician [phone] MONIQUE OTOOLE Admitting Clinician Unavailable Payers Payer Name Policy Type Policy Number Effective Date Expiration Date S ource BCBS ADV HMO [id number] 2021 EXCHANGE 00:00:00 0523 [id number] 1959 00:00:00 0700 [id number] 1959 00:00:00 Problems Condition Condition Condition Status Onset Resolution Last Treating Co mments Source Name Details Category Date Date Treatment Clinician Date Benzodiaze Benzodiaze Disease Recurre [facility] Me [facility]ical 00 Center Severe Severe Disease Recurre [facility] protein-ca protein-ca nce 12-05 Jenna kes rohit bee 00:00: Medical malnutriti malnutriti 00 Ce nter on on Closed Closed Disease Active [facility] displaced [...] s dementia s dementia 00 Ce nter Confusion Confusion Disease Active 2021-10 Uni vers 0-28 ity of 00:00: [place] 00 Medical Branch E46 E46 Disease Active Univers Unspecifie Unspecifie 1-08 it y of d severe d severe 00:00: [place] protein-ca protein-ca 00 Mn lorenzo bee Branch malnutriti malnutriti on on AMS AMS Disease Active Univers (altered (altered 1-07 ity of mental mental 00:00: [place] status) status) 00 Medical Branch Colitis Colitis Disease Active [facility] l ABDOMINAL ABDOMINAL Diagnosis Active 2012-02-14 [facility] PAIN PAIN 5-10 08:26:00 l Active 00:00: [place] 02/14/2012 00 [facility] No known No known Disease Unive rs active active ity of problems problems [facility] Allergies, Adverse Reactions, Alerts Allergy Allergy Status Severity Reaction(s) Onset Inactive Treating Comm ents Source Name Type Date Date Clinician Penicill DA Active Unknown [place] ins 12-04 Medical 00:00: Center 00 Predniso DA Active [...] 00 Medical Branch Penicill Propensi Active Anaphylaxis 2018-1 U nivers ins ty to 2-13 ity of adverse 00:00: [place] reaction 00 Medical s Branch Penicill Propensi Active Anaphylaxis 2018-1 U nivers ins ty to 2-13 ity of adverse 00:00: [place] reaction 00 Medical s Branch penicill penicill Active Memori a ins ins l John predniSO predniSO Active Memori a NE NE l [place] penicill penicill Active Memori a ins ins l John predniSO predniSO Active Memori a NE NE l John Social History Social Habit Start Date Stop Date Quantity Comments Source History of Current smoker University of tobacco use [place] [facility] Exposure to 2022-08-08 2022-08-18 Not sure University of SARS-CoV-2 00:00:00 11:12:00 [facility] (event) Branch Alcohol intake 2022-08-05 2022-08-05 Ex-drinker [facility] 00:00:00 00:00:00 (finding) [place] [facility] Tobacco use and 2020-10-16 2020-10-16 Smokeless tobacco Un iversity of exposure 00:00:00 00:00:00 non-user [place] [facility] Education 2020-10-16 2020-10-16 13 University of 00:00:00 00:00:00 [place] [facility] History SDOH 2020-10-16 2020-10-16 3 University o f Financial 00:00:00 00:00:00 [place] [facility] History SDIN Food 2020-10-16 2020-10-16 2 Univers ity of Worry 00:00:00 00:00:00 [place] [facility] History SDIN Food 2020-10-16 2020-10-16 2 Univers ity of Scarcity 00:00:00 00:00:00 [place] [facility] History SDOH 2020-10-16 2020-10-16 2 University o f Transport Med 00:00:00 00:00:00 [place] Medic al Branch History SDIN 2020-10-16 2020-10-16 2 University o f Transport Non-Med 00:00:00 00:00:00 [facility] edical Branch Sex [birth year] [facility] 00:00:00 00:00:00 Hospital Smoking Status Start Date Stop Date Source Tobacco smoking [facility] consumption unknown Ex-smoker 2020-10-16 00:00:00 2020-10-16 [facility] [place] 00:00:00 Medical Branch Medications Ordered Filled Start Stop Current Ordering Indication Dosage Frequency Signature Comments Components Source Medication Medication Date Date Medication? Clinician (SIG) Name Name clonazePAM 2021-10 Yes .5mg Take 0.5 Uni vers 0.5 mg 1-18 mg by ity of tablet 21:12: mouth in [place] [address] the Medical morning Branch and 0.5 mg at noon and 0.5 mg in the evening. clonazePAM 2021-10 Yes .5mg Take 0.5 Uni vers 0.5 mg 1-18 mg by ity of tablet 21:12: mouth in [place] [address] the Medical morning Branch and 0.5 mg at noon and 0.5 mg in the evening. FLUoxetine 2021-10 40mg Take 40 mg Univers 40 mg 1-18 11-18 by mouth ity of capsule 14:52: 00:00 in the [place] 21 :00 morning Medical and 40 mg Branch in the evening. FLUoxetine 2021-10 Yes [id number] 40mg Take 1 Univers 40 mg 1-18 capsule by ity of capsule 00:00: mouth in [place] 00 the Medical morning. Branch traZODone 2021-10 Yes [id number] 100mg Take 1 Univers 100 mg 1-18 tablet by ity of tablet 00:00: mouth at [place] [address] bedtime. Medical Branch FLUoxetine 2021-10 Yes [id number] 40mg Take 1 Univers 40 mg 1-18 capsule by ity of capsule 00:00: mouth in [place] 00 the Medical morning. Branch traZODone 2021-10 Yes [id number] 100mg Take 1 Univers 100 mg 1-18 tablet by ity of tablet 00:00: mouth at [place] [address] bedtime. Medical Branch FLUoxetine 2021-10 Yes 40mg 40 mg, Unive rs (PROZAC) 1-16 Oral, ity of capsule 40 15:00: DAILY, [place] mg 00 First dose Medical on Sat08/22/22 at 0900, Until Discontinu ed, Routine traZODone 2021-10 Yes 100mg 100 mg, Univ ers (DESYREL) 1-16 Oral, QHS, ity of tablet 100 03:00: First dose [place] mg 00 on Sat [facility] 08/21/22 Branch at 2100, Until Discontinu ed, Routine NaCl 0.9% 2021-10- No 1000mL at 100 [facility] vers (NS) IV 10-21 11-17 mL/hr, IV ity of infusion 18:15: 14:00 Infusion, [place] 1,000 mL 00 :00 ONCE, 1 Medical dose, On Branch Sat08/21/22 at 1215, Routine clonazePAM 2021-10 Yes .5mg 0.5 mg, [facility] ers (KLONOPIN) 15 Oral, TID, ity of tablet 0.5 14:00: First dose [place] mg 00 (after Medical last Branch modificati on) on Sat08/21/22 at 0800, Until Discontinu ed, Routine FLUoxetine 2021-10- No 40mg 40 mg, [facility] ers (PROZAC) 10-21 11-15 Oral, BID, ity of capsule 40 14:00: 17:11 First dose [place] mg 00 :43 (after Medical last Branch modificati on) on Sat08/21/22 at 0800, Until Discontinu ed, Routine D5W 0.9% 2021-10- No 1000mL at 100 [facility] ers NaCl (NS) - 11-15 mL/hr, ity of IV infusion 15:30: 17:15 1,000 mL, [place] 1,000 mL 00 :57 IV Medical Infusion, Branch CONTINUOUS , Starting on Sat08/20/22 at 0930, Until Sat08/21/22 at 1115, Routine KCL 2021-10 Yes 40meq 40 mEq, Univers (KLOR-CON 10-19 Oral, ity of M20) tablet 15:00: DAILY, [place] 40 mEq 00 First dose Medical on [place] Branch 08/19/22 at 0900, Until Discontinu ed, Routine sennosides- 2021-10 Yes 1{tbl} 1 tablet, Univers docusate 10-19 Oral, ity of sodium 15:00: DAILY, [place] (SENOKOT-S) 00 First dose Me dical 8.6-50 mg on [place] [facility] per tablet 08/19/22 1 tablet at 0900, Until Discontinu ed, Routine potassium 2021-10- No 20meq 20 mEq, IV Univers chloride in 10-19 11-13 Piggyback, i ty of water (KCL) 14:45: [...] E)) 00 :00 dose, On Medical chewable [place] [facility] tablet 80 08/19/22 mg at 0230, Routine enoxaparin 2021-10 Yes 40mg 40 mg, Unive rs (LOVENOX) 10-18 Subcutaneo ity of injection 23:00: [place], DAILY, [place] 40 mg 00 First dose Medical on [facility] 08/18/22 at 1700, Until Discontinu ed, Routine FLUoxetine 2021-10 No 40mg 40 mg, Univ ers (PROZAC) 10-18 Oral, ity of capsule 40 22:30: 11:38 DAILY, [place] mg 00 :23 First dose Medical (after Branch last modificati on) on [facility] 08/18/22 at 1630, Until Discontinu ed, Routine acetaminoph 2021-10 Yes 650mg 650 mg, Un jennie en 10-18 Oral, ity of (TYLENOL) 20:29: Q6HPRN, [place] tablet 650 48 Starting Medic al mg on [facility] 08/18/22 at 1429, Until Discontinu ed, Routine, Pain (scale 1-3) clonazePAM 2021-10 No 1mg 1 mg, Unive rs (KLONOPIN) 10-18 Oral, TID, it y of tablet 1 mg 20:00: 11:38 First dose [place] 00 :23 on [facility] 08/18/22 Branch at 1400, Until Discontinu ed, Routine traZODone 2021-10- No 50mg Take 50 mg U nivers 50 mg 12 11-12 by mouth ity of tablet 14:30: 00:00 at [place] 15 :00 bedtime. Medical Branch ergocalcife 2021-10- No [id number] Take 1 Univers rol, 10-11 12-26 capsule by ity of vitamin d2, 00:00: 05:59 mouth [place] 1,250 mcg 00 :00 weekly for Medi srinivasa (50,000 8 doses. Branch unit) capsule ergocalcife 2021-10- No [id number] Take 1 Univers rol, 10-11-12 capsule by ity of vitamin d2, 00:00: [...] mouth ity of capsule 16:58: in the [place] 59 morning Medical and 40 mg Branch in the evening. PARoxetine 2021-10- No 30mg Take 30 mg Univers 30 mg 0-30 10-30 by mouth 2 ity of tablet 16:30: 00:00 (two) [place] 33 :00 times Medical daily. Branch meloxicam [...] (after Medical last Branch modificati on) on 10/29/22 at 2000, Until Discontinu ed, Routine ergocalcife 2021-10 Yes [id number] 50,000 Un jennie rol 0-29 Units, ity of (vitamin 17:11: Oral, [place] d2) 29 QWEEKLY, Medical (CALCIFEROL First dose Br anch ) capsule on [facility] 50,000 08/04/22 Units at 1215, Until Discontinu ed, Routine potassium 2021-10- No 10meq 10 mEq, IV Univers chloride in 08-04 Piggyback, i ty of water 10 15:00: 18:45 Q1H, 3 [place] mEq/100 mL 00 :04 doses, Medical RTU 10 mEq First dose Bra nch on [facility] 08/04/22 at 1000, Last dose on [facility] 08/04/22 at 1200, Administer over 60 Minutes, 100 mL KCL 2021-10 No 40meq 40 mEq, Univers (KLOR-CON 08-04 Oral, ity of M20) tablet 15:00: 15:00 ONCE, 1 [place] 40 mEq 00 :00 dose, On Medical [facility] 08/04/22 at 1000, Routine pyridoxine 2021-10 Yes 100mg 100 mg, Uni vers (vitamin 0 Oral, ity of B6) 14:00: DAILY, [place] (VITAMIN 00 First dose Medic al B6) tablet on [facility] 100 mg 08/04/22 at 0900, Until Discontinu ed, Routine thiamine 2021-10 Yes 100mg 100 mg, Unive rs (VITAMIN 0- Oral, ity of B1) tablet 14:00: DAILY, [place] 100 mg 00 First dose Medical on [facility] 08/04/22 at 0900, Until Discontinu ed, Routine enoxaparin 2021-10 Yes 40mg 40 mg, Unive rs (LOVENOX) 0- Subcutaneo ity of injection 14:00: [place], DAILY, [place] 40 mg 00 First dose Medical on [facility] 08/04/22 at 0900, Until Discontinu ed, Routine FLUoxetine 2021-10- No 20mg 20 mg, Univ ers (PROZAC) 0-08-04 Oral, ity of capsule 20 14:00: 20:36 DAILY, [place] mg 00 :26 First dose Medical on [facility] 08/04/22 at 0900, Until Discontinu ed, Routine lactobacill 2021-10 Yes .5mg 0.5 mg, Uni vers us 0-29 Oral, BID, ity of acidophilus 13:00: First dose [place] tablet 0.5 00 on [facility] Medical mg 08/04/22 Branch at 0800, Until [...] No .5mg 0.5 mg, Uni vers (KLONOPIN) 0-08-03 Oral, ity of tablet 0.5 20:45: 19:50 ONCE, 1 [place] mg 00 :00 dose, On Medical Sat Branch 08/03/22 at 1545, Routine NaCl 0.9% [...] Sat Branch 08/03/22 at 1445, WILFREDO levoFLOXaci 2021-10- No 500mg 500 mg, U nivers n 007-30 Oral, ity of (LEVAQUIN) 06:30: 06:33 ONCE, [...] Until Discontinu ed, Routine levoFLOXaci 2021-10 Yes [id number] 500mg Take 1 Univers n 0-24 tablet by ity of (LEVAQUIN) 00:00: mouth [place] 500 mg 00 every 24 Medical tablet (- Branch ur) hours. levoFLOXaci 2021-10- No [id number] 500mg Take 1 Univers n 0-24 10-30 tablet by ity of (LEVAQUIN) 00:00: 00:00 mouth [place] 500 mg 00 :00 every 24 Medical tablet (- Branch ur) hours. PARoxetine 2021-0 Yes 30mg Take 30 mg U nivers 30 mg 4-28 by mouth 2 ity of tablet 16:24: (two) [place] 39 times Medical daily. Branch meloxicam 2021-0 Yes Take by [employer] (MOBIC 4-28 mouth. ity of ORAL) 16:24: Patient [place] 39 with pill Medical bottle Branch with handwritte n name Mobic 1 daily for pain. No dosage. White flat tablets. PARoxetine 2021-0 Yes 30mg Take 30 mg U nivers 30 mg 4-28 by mouth 2 ity of tablet 16:24: (two) [place] 39 times Medical daily. Branch meloxicam 2021-0 Yes Take by [employer] (MOBIC 4-28 mouth. ity of ORAL) 16:24: Patient [place] 39 with pill Medical bottle Branch with handwritte n name Mobic 1 daily for pain. No dosage. [place] flat tablets. PARoxetine 2021-0 Yes 30mg Take 30 mg U nivers 30 mg 4-28 by mouth 2 ity of tablet 16:24: (two) [place] 39 times Medical daily. Branch meloxicam 2021-0 Yes Take by [employer] (MOBIC 4-28 mouth. ity of ORAL) 16:24: Patient [place] 39 with pill Medical bottle Branch with handwritte n name Mobic 1 daily for pain. No dosage. [place] flat tablets. PARoxetine 2-0 Yes 30mg Take 30 mg U nivers 30 mg 4-28 by mouth 2 ity of tablet 16:24: (two) [place] 39 times Medical daily. Branch meloxicam 2021-0 Yes Take by [employer] (MOBIC 4-28 mouth. ity of ORAL) 16:24: Patient [place] 39 with pill Medical bottle Branch with handwritte n name Mobic 1 daily for pain. No dosage. [place] flat tablets. PARoxetine 2021-0 Yes 30mg Take 30 mg U nivers 30 mg 4-28 by mouth 2 ity of tablet 16:24: (two) [place] 39 times Medical daily. Branch meloxicam 2021-0 Yes Take by Unive rs (MOBIC 4-28 mouth. ity of ORAL) 16:24: Patient [place] 39 with pill Medical bottle Branch with handwritte n name Mobic 1 daily for pain. No dosage. White flat tablets. risperiDONE 2021-0 Yes [id number] .5mg Take 1 Univers 0.5 mg 4-28 tablet by ity of tablet 00:00: mouth 2 [place] (two) Medical times Branch daily. risperiDONE 2021-0 Yes [id number] .5mg Take 1 Univers 0.5 mg 4-28 tablet by ity of tablet 00:00: mouth 2 [place] 00 (two) Medical times Branch daily. risperiDONE 2021-0 Yes [id number] .5mg Take 1 Univers 0.5 mg 4-28 tablet by ity of tablet 00:00: mouth 2 [place] 00 (two) Medical times Branch daily. risperiDONE 2021-0 Yes [id number] .5mg Take 1 Univers 0.5 mg 4-28 tablet by ity of tablet 00:00: mouth 2 [place] 00 (two) Medical times Branch daily. risperiDONE 2021-0 Yes [id number] .5mg Take 1 Univers 0.5 mg 4-28 tablet by ity of tablet 00:00: mouth 2 [place] 00 (two) Medical times Branch daily. risperiDONE 2021-0 2022- No [id number] .5mg Take 1 Univers 0.5 mg 4-28 10-30 tablet by ity of tablet 00:00: 00:00 mouth 2 [place] 00 :00 (two) Medical times Branch daily. [...] Until Discontinu ed, Routine thiamine 2021-0 Yes [id number] 100mg Take 1 U nivers 100 mg 4-27 tablet by ity of tablet 00:00: mouth [place] 00 daily. Medical Branch LORazepam 1 2021-0 Yes [id number] 3mg Take 3 Univers mg tablet 4-27 tablets by ity of 00:00: mouth [place] 00 every 4 Medical (four) Branch hours. thiamine 2021-0 Yes [id number] 100mg Take 1 U nivers 100 mg 4-27 tablet by ity of tablet 00:00: mouth [place] 00 daily. Medical Branch LORazepam 1 2021-0 Yes [id number] 3mg Take 3 Univers mg tablet 4-27 tablets by ity of 00:00: mouth [place] 00 every 4 Medical (four) Branch hours. thiamine 2021-0 Yes [id number] 100mg Take 1 U nivers 100 mg 4-27 tablet by ity of tablet 00:00: mouth [place] 00 daily. Medical Branch LORazepam 0 Yes [id number] 3mg Take 3 Univers mg tablet 4-27 tablets by ity of 00:00: mouth [place] 00 every 4 Medical (four) Branch hours. thiamine 2021-0 Yes [id number] 100mg Take 1 U nivers 100 mg 4-27 tablet by ity of tablet 00:00: mouth [place] 00 daily. Medical Branch LORazepam 1 2021-0 Yes [id number] 3mg Take 3 Univers mg tablet 4-27 tablets by ity of 00:00: mouth [place] 00 every 4 Medical (four) Branch hours. thiamine 2021-0 Yes [id number] 100mg Take 1 U nivers 100 mg 4-27 tablet by ity of tablet 00:00: mouth [place] 00 daily. Medical Branch LORazepam 1 2021-0 Yes [id number] 3mg Take 3 Univers mg tablet 4-27 tablets by ity of 00:00: mouth [place] 00 every 4 Medical (four) Branch hours. thiamine 2021-0 Yes [id number] 100mg Take 1 U nivers 100 mg 4-27 tablet by ity of tablet 00:00: mouth [place] 00 daily. Medical Branch thiamine 2021-0 2021- No [id number] 100mg Take 1 Univers 100 mg 4-27 11-12 tablet by ity of tablet 00:00: 00:00 mouth [place] 00 :00 daily. Medical Branch LORazepam 1 2021- No [id number] 3mg Take 3 Univers mg tablet 01-31 10-30 tablets by ity of 00:00: 00:00 mouth [place] 00 :00 every 4 Medical (four) Branch hours. LORazepam 2021- No 2mg 2 mg, Slow U nivers (ATIVAN) 01-30 IV Push, ity of injection 2 23:30: 22:35 ONCE, 1 [place] mg 00 :00 dose, On Medical e Branch 01/30/22 at 1830, WILFREDO LORazepam 2021- No 2mg 2 mg, Slow U nivers (ATIVAN) 01-30 IV Push, ity of injection 2 22:53: 23:21 ONCE, 1 [place] mg 00 :00 dose, On Medical [facility] Branch 01/30/22 at 1800, STAT pyridoxine Yes 100mg 100 mg, Uni vers (vitamin 01-30 Oral, ity of B6) 16:00: DAILY, [place] (VITAMIN 00 First dose Medic al B6) tablet on [facility] 100 mg 01/30/22 at 1100, Until Discontinu [...] Medical times Branch daily. gabapentin 2021- Yes [id number] 200mg Take 2 Univers 100 mg - capsules ity of capsule 00:00: by mouth 2 [place] 00 (two) Medical times Branch daily as needed (back pain). pyridoxine, 2021- Yes [id number] 100mg Take 1 Univers vitamin B6, 01-30 tablet by ity of 100 mg 00:00: mouth [place] tablet 00 daily. Medical Branch gabapentin 2021- Yes [id number] 200mg Take 2 Univers 100 mg 4-26 capsules ity of capsule 00:00: by mouth 2 [place] 00 (two) Medical times Branch daily as needed (back pain). pyridoxine, Yes [id number] 100mg Take 1 Univers vitamin B6, 4-26 tablet by ity of 100 mg 00:00: mouth [place] tablet 00 daily. Medical Branch gabapentin Yes [id number] 200mg Take 2 Univers 100 mg 4-26 capsules ity of capsule 00:00: by mouth 2 [place] 00 (two) Medical times Branch daily as needed (back pain). pyridoxine, Yes [id number] 100mg Take 1 Univers vitamin B6, 4-26 tablet by ity of 100 mg 00:00: mouth [place] tablet 00 daily. Medical Branch gabapentin Yes [id number] 200mg Take 2 Univers 100 mg 4-26 capsules ity of capsule 00:00: by mouth 2 [place] 00 (two) Medical times Branch daily as needed (back pain). pyridoxine, Yes [id number] 100mg Take 1 Univers vitamin B6, 4-26 tablet by ity of 100 mg 00:00: mouth [place] tablet 00 daily. Medical Branch gabapentin Yes [id number] 200mg Take 2 Univers 100 mg 4-26 capsules ity of capsule 00:00: by mouth 2 [place] 00 (two) Medical times Branch daily as needed (back pain). pyridoxine, Yes [id number] 100mg Take 1 Univers vitamin B6, 4-26 tablet by ity of 100 mg 00:00: mouth [place] tablet 00 daily. Medical Branch pyridoxine, Yes [id number] 100mg Take 1 Univers vitamin B6, 4-26 tablet by ity of 100 mg 00:00: mouth [place] tablet 00 daily. Medical Branch pyridoxine, 2021- No [id number] 100mg Take 1 Univers vitamin B6, 4-26 11-12 tablet by it y of 100 mg 00:00: 00:00 mouth [place] tablet 00 :00 daily. Medical Branch gabapentin 2021- No [id number] 200mg Take 2 Univers 100 mg 4-26 10-30 capsules ity of capsule 00:00: 00:00 by mouth 2 [place] 00 :00 (two) Medical times Branch daily as needed (back pain). traMADoL 50 2021- No [id number] 50mg Take 1 Uni vers mg tablet 01-30 tablet by ity of 00:00: 04:59 mouth [place] 00 :00 every 6 Medical (six) Branch hours as needed for Pain (scale 7-10) for up to 7 days. Indication s: acute pain traMADoL 50 2021-2021- No [id number] 50mg Take 1 Uni vers mg tablet 01-30 tablet by ity of 00:00: 04:59 mouth [place] 00 :00 every 6 Medical (six) Branch hours as needed for Pain (scale 7-10) for up to 7 days. Indication s: acute pain traMADoL 50 2021- No [id number] 50mg Take 1 Uni vers mg tablet 01-30 tablet by ity of 00:00: 04:59 mouth [place] 00 :00 every 6 Medical (six) Branch hours as needed for Pain (scale 7-10) for up to 7 days. Indication s: acute pain LORazepam 2 2021- No [id number] 2mg Take 1 Univers mg tablet 01-3027 tablet by ity of 00:00: 00:00 mouth [place] 00 :00 every 4 Medical (four) Branch hours. traMADoL Yes 50mg 50 mg, Univers (ULTRAM) - Oral, ity of tablet 50 16:19: Q6HPRN, [place] mg 36 Starting Medical on Mon Branch 01/29/22 at 1119, Until Discontinu ed, Routine, Pain (scale 7-10) KCL 2021- No 40meq 40 mEq, Univers (KLOR-CON 01-29-25 [...] [place] mg 00 :00 dose, On Medical Sat Branch 01/26/22 at 1530, Routine LORazepam 2021- No 2mg 2 mg, Slow U nivers (ATIVAN) 01-26 IV Push, ity of injection 2 20:15: 19:19 ONCE, 1 [place] mg 00 :00 dose, On Medical Sat Branch 01/26/22 at 1515, Routine haloperidol 2021- [...] :00 dose, On Medica l 25 mg [facility] Branch 01/25/22 at 1730, Routine haloperidol 2021- No 2mg 2 mg, Univ ers lactate 01-25 Intramuscu ity o f (HALDOL) 22:15: 21:20 [place], ONCE, [place] injection 2 00 :00 1 dose, On Me dical mg [facility] Branch 01/25/22 at 1715, Routine haloperidol 2021- No 2mg 2 mg, Univ ers lactate 01-25 Intramuscu ity o f (HALDOL) 20:45: 19:51 [place], ONCE, [place] injection 2 00 :00 1 dose, On Me dical mg [facility] Branch 01/25/22 at 1545, Routine hydrOXYzine 2021- No 25mg 25 mg, Uni vers (ATARAX) 01-25 Oral, ity of tablet 25 19:00: 19:37 Q6HPRN, [place] mg 03 :00 Starting Medical on [facility] Branch 01/25/22 at 1400, Until [facility] 01/25/22 at 1437, Routine, Anxiety KCL 2021- No 40meq 40 mEq, Univers (KLOR-CON 01-25 Oral, Q4H, ity of M20) tablet 09:00: 13:39 2 doses, [place] 40 mEq 00 :00 First dose Medical (after Branch last reorder) on [facility] 01/25/22 at 0400, Last dose on [facility] 01/25/22 at 0800, Routine haloperidol 2021- No 2mg 2 mg, Univ ers lactate 01-24 Intramuscu ity o f (HALDOL) 23:32: 01:40 [place], ONCE, [place] injection 2 00 :00 1 dose, On Me dical mg [facility] Branch 01/24/22 at 1845, STAT LORazepam 2021- No 1mg 1 mg, Univer s (ATIVAN) 01-24 Intramuscu ity of injection 1 23:00: 21:56 lar, ONCE, [place] mg 00 :00 1 dose, On Medical [facility] 01/24/22 at 1800, Routine haloperidol 2021- No 2mg 2 mg, Univ ers lactate 01-24 Intramuscu ity o f (HALDOL) 22:54: 23:00 [place], ONCE, [place] injection 2 00 :00 1 dose, On Me dical mg Sat01/24/22 at 1800, STAT thiamine 2021-2021- No 100mg 100 mg, Univ ers (VITAMIN 01-24 Oral, ity of B1) tablet 14:45: 11:47 DAILY, [place] 100 mg 00 :57 First dose Medical on Sat01/24/22 at 0945, Until Discontinu ed, Routine KCL 2021-0 2021- No 40meq 40 mEq, Univers (KLOR-CON 01-24 Oral, ity of M20) tablet 13:15: 14:26 ONCE, 1 [place] 40 mEq 00 :00 dose, On Sat [place] 01/24/22 at 0815, Routine sucralfate Yes 1g 1 g, Oral, U nivers (CARAFATE) 01-23 AC+HS, ity of tablet 1 g 16:30: First dose [place] 00 on [facility] 01/23/22 at Branch 1130, Until Discontinu [...] s mg 31 Starting Medical on Sat [place] 01/23/22 at 1027, Until Discontinu ed, Routine, Pain (scale 4-6) bisacodyL 2021- No 10mg 10 mg, Unive rs (DULCOLAX) 01-23 Rectal, ity o f suppository 15:17: 16:00 ONCE, 1 [place] 10 mg 00 :00 dose, On Medical [facility] 01/23/22 at 1030, Routine sennosides- 0 Yes 1{tbl} 1 tablet, Univers docusate 01-23 Oral, ity of sodium 14:00: DAILY, [place] (SENOKOT-S) 00 First dose Me dical 8.6-50 mg on [facility] per tablet 01/23/22 at 1 tablet 0900, Until Discontinu ed, Routine enoxaparin Yes 40mg 40 mg, Unive rs (LOVENOX) 01-23 Subcutaneo ity of injection 14:00: [place], DAILY, [place] 40 mg 00 First dose Medical on [facility] 01/23/22 at 0900, Until Discontinu ed, Routine polyethylen Yes 17g 17 g, Unive rs e glycol 01-23 Oral, BID, ity o f 3350 powder 13:00: First dose [place] 17 g 00 on [facility] 01/23/22 at Branch 0800, Until Discontinu ed, Routine PARoxetine Yes 25mg 25 mg, Unive rs (PAXIL) 01-23 Oral, BID, ity of tablet 25 13:00: First dose [place] mg 00 on [facility] 01/23/22 at Branch 0800, Until Discontinu ed, Routine gabapentin Yes 200mg 200 mg, Uni vers (NEURONTIN) 01-23 Oral, ity of capsule 200 04:05: BIDPRN, [place] mg 27 Starting Medical on Sat [place] 01/22/22 at 2305, Until Discontinu ed, Routine, back pain chlordiazeP 2021- No 5mg 5 mg, Univ ers OXIDE 01-23 Oral, ity of (LIBRIUM) 03:28: 20:04 TIDPRN, [place] capsule 5 48 :02 Starting Medica l mg on Sat [place] 01/22/22 at 2228, Until Sat01/26/22 at 1504, Routine, agitation, anxiety thiamine 2021- No 100mg 100 mg, Univ ers (VITAMIN - 04-20 Slow IV ity of B1) 23:15: 14:38 Push, [place] injection 00 :42 DAILY, 3 Medica l 100 mg doses, Branch First dose on Sat01/22/22 at 1815, Last dose on Sat01/24/22 at 0900, Routine acetaminoph 2021-0 Yes 650mg 650 mg, Un jennie en 4-18 Oral, ity of (TYLENOL) 23:13: Q6HPRN, [place] tablet 650 52 Starting Medic al mg on Sat [place] 01/22/22 at 1813, Until Discontinu ed, Routine, Pain (scale 1-3) PARoxetine 0 Yes 30mg Take 30 mg U nivers 30 mg 4-18 by mouth 2 ity of tablet 23:11: (two) [place] 00 times Medical daily. Branch chlordiazeP Yes Take by Uni vers OXIDE 5 mg 4-18 mouth 3 ity of capsule 23:11: (three) [place] 00 times Medical daily. Branch gabapentin 0 Yes 300mg Take 300 Un jennie 300 mg 4-18 mg by ity of capsule 23:11: mouth 3 [place] 00 (three) Medical times Branch daily. mel[facility]am [facility] (MOBIC 4-18 mouth. ity of ORAL) 23:11: Patient [place] 00 with pill Medical bottle Branch with handwritte n name Mobic 1 daily for pain. No dosage. [place] flat tablets. haloperidol 2021- No 2mg 2 mg, [facility] ers lactate 01-2218 Intravenou ity o f (HALDOL) 19:45: 18:45 s, ONCE, 1 [place] injection 2 00 :00 dose, On Medi srinivasa mg Sat [place] 01/22/22 at 1445, STAT PARoxetine 2021-0 Yes 30mg Take 30 mg U nivers 30 mg 4-16 by mouth 2 ity of tablet 12:11: (two) [place] 23 times Medical daily. Branch chlordiazeP 0 Yes Take by Uni vers OXIDE 5 mg 4-16 mouth 3 ity of capsule 12:11: (three) [place] 23 times Medical daily. Branch gabapentin 2021-0 Yes 300mg Take 300 Un jennie 300 mg 4-16 mg by ity of capsule 12:11: mouth 3 [place] 23 (three) Medical times Branch daily. fluoxetine 2021- No Take by Uni vers HCl (PROZAC -16 -16 mouth. ity o f ORAL) 10:43: 00:00 [place] 53 :00 Medical Branch proMETHazin 2021- No 12.5mg Take 12.5 Univers e 25 mg 4-16 04-16 mg by ity of tablet 10:43: 00:00 mouth [place] 53 :00 every 6 Medical (six) Branch hours as needed. prazosin 1 2021- No 1mg Take 1 mg U nivers mg capsule 01-20-16 by mouth ity of 10:43: 00:00 at [place] 53 :00 bedtime. Medical Branch traZODone 2021- No 50mg Take 50 mg U nivers 50 mg 01-20-16 by mouth ity of tablet 10:43: 00:00 at [place] 53 :00 bedtime. Medical Branch levETIRAcet 2021- No 500mg Take 500 Univers am 500 mg 4-16 04-16 mg by ity of tablet 10:43: 00:00 mouth 2 [place] 53 :00 (two) Medical times Branch daily. meloxicam 2021- No Take by Univ ers (MOBIC -16 04-16 mouth. ity of ORAL) 10:43: 00:00 [place] 53 :00 Medical Branch cyclobenzap 2021- No 10mg Take 10 mg Univers rine HCl 16 -16 by mouth ity of (FLEXERIL 10:43: 00:00 daily. [place] ORAL) 53 :00 Medical Branch cyclobenzap Yes [id number] 5mg Take 1 Univers rine 5 mg 4-16 tablet by ity o f tablet 00:00: mouth 3 [place] 00 (three) Medical times Branch daily. cyclobenzap 2021-0 Yes [id number] 5mg Take 1 Univers rine 5 mg 4-16 tablet by ity o f tablet 00:00: mouth 3 [place] 00 (three) Medical times Branch daily. cyclobenzap 2021- Yes [id number] 5mg Take 1 Univers rine 5 mg 4-16 tablet by ity o f tablet 00:00: mouth 3 [place] 00 (three) Medical times Branch daily. cyclobenzap 2021-0 Yes [id number] 5mg Take 1 Univers rine 5 mg 4-16 tablet by ity o f tablet 00:00: mouth 3 00 (three) Medical times Branch daily. cyclobenzap 2021-0 Yes [id number] 5mg Take 1 Univers rine 5 mg 4-16 tablet by ity o f tablet 00:00: mouth 3 00 (three) Medical times Branch daily. cyclobenzap 2021-0 Yes [id number] 5mg Take 1 Univers rine 5 mg 4-16 tablet by ity o f tablet 00:00: mouth 3 00 (three) Medical times Branch daily. cyclobenzap 2021-0 Yes [id number] 5mg Take 1 Univers rine 5 mg 4-16 tablet by ity o f tablet 00:00: mouth 3 00 (three) Medical times Branch daily. cyclobenzap 2021- No [id number] 5mg Take 1 Univers rine 5 mg 4-16 10-30 tablet by ity of tablet 00:00: 00:00 mouth 3 [place] 00 :00 (three) Medical times Branch daily. levoFLOXaci 2021-2021- No [id number] 500mg Take 1 Univers n 500 mg [...] 4647 1{tbl} Take 1 U nivers -acetaminop 16 - tablet by it y of hen 5-325 00:00: 04:59 mouth [place] mg tablet 00 :00 every 6 Medical (six) Branch hours as needed for Pain (scale 7-10) for up to 5 days. Indication s: acute pain levoFLOXaci 2021-0 2021- No [id number] 500mg Take 1 Univers n 500 mg 01-20-20 tablet by ity o f tablet 00:00: 04:59 mouth [place] 00 :00 every Medical evening Branch for 3 days. levoFLOXaci 0 2021- No [id number] 500mg Take 1 Univers n 500 mg 01-20-20 tablet by ity o f tablet 00:00: 04:59 mouth [place] 00 :00 every Medical evening Branch for 3 days. HYDROcodone 0 Yes 1{tbl} 1 tablet, Univers -acetaminop - Oral, ity of hen (NORCO 23:33: Q4HPRN, [place] 5) 5-325 mg 52 Starting Medi srinivasa tablet 1 on [facility] Branch tablet 01/18/22 at 1833, Until Discontinu ed, Routine, Pain (scale 7-10) traMADoL Yes 50mg 50 mg, Univers (ULTRAM) 4-14 Oral, ity of tablet 50 23:33: Q4HPRN, [place] mg 42 Starting Medical on [place] Branch 01/18/22 at 1833, Until Discontinu ed, Routine, Pain (scale 4-6) levoFLOXaci 2021- No 500mg 500 mg, U nivers n -14 04-17 Oral, QPM, ity of (LEVAQUIN) 22:00: 21:59 3 doses, [place] tablet 500 00 :00 First dose Med ical mg on [place] Branch 01/18/22 at 1700, Last dose on 01/20/22 at 1700, WILFREDO
Re ason for Anti-Infec tive: Empiric Therapy for Suspected Infection< br>Empiric Therapy Site: Urine
D uration of therapy: 72 hours
R estricted use approved by: [employer] PROVIDER ibuprofen 0 Yes 400mg 400 mg, Univ ers (IBU) 4-14 Oral, BID ity of tablet 400 16:00: MEALS, [place] mg 00 First dose Medical on [place] Branch 01/18/22 at 1100, Until Discontinu ed, Routine cyclobenzap Yes 5mg 5 mg, Unive rs rine 14 Oral, TID, ity of (FLEXERIL) 16:00: First dose [place] tablet 5 mg 00 (after Medica l last Branch modificati on) on [place] 01/18/22 at 1100, Until Discontinu ed levoFLOXaci 2021- [...] 1000mL at 75 Univ ers (NS) IV 01-17 04-13 mL/hr, IV ity of infusion 05:15: 04:38 Infusion, [place] 1,000 mL 00 :00 ONCE, 1 Medical dose, On Branch Sat01/17/22 at 0015, Routine chlordiazeP Yes 10mg 10 mg, Univ ers OXIDE 13 Oral, TID, ity of (LIBRIUM) 04:15: First dose [place] capsule 10 00 on Tue Medical mg 01/16/22 at Branch 2315, Until Discontinu ed, Routine cyclobenzap 2021- No 10mg 10 mg, Uni vers rine 01-17-14 Oral, ity of (FLEXERIL) 04:00: 15:49 [id number], [place] tablet 10 17 :24 Starting Medica l mg on [facility] 01/16/22 at 2300, Until [place] 01/18/22 at 1049, Muscle Spasms PARoxetine Yes 30mg 30 mg, Unive rs (PAXIL) 4-13 Oral, BID, ity of tablet 30 03:30: First dose [place] mg 00 on [facility] 01/16/22 at Branch 2230, Until Discontinu ed, Routine gabapentin Yes 300mg 300 mg, Uni vers (NEURONTIN) 13 Oral, TID, it y of capsule 300 03:30: First dose [place] mg 00 on [facility] 01/16/22 at Branch 2230, Until Discontinu ed, Routine acetaminoph Yes 650mg 650 mg, Un jennie en 01-17 Oral, ity of (TYLENOL) 00:33: Q6HPRN, [place] tablet 650 50 Starting Medic al mg on [facility] 01/16/22 at 1933, Until Discontinu ed, Routine, Pain (scale 1-3) levoFLOXaci 2021- No 500mg 500 mg, IV Univers n in D5W 01-17 Piggyback, ity of (LEVAQUIN) 00:15: 01:03 ONCE, 1 [place] 500 mg/100 00 :00 dose, On Medic al mL [facility] Piggyback 01/16/22 at 500 mg 1915, Administer [...] Pain (scale 4-6). TALKING MEDICATION thiamine Yes [id number] 100mg Take 1 U nivers 100 mg 2-05 tablet by ity of tablet 00:00: mouth [place] 00 daily. Medical Branch thiamine Yes [id number] 100mg Take 1 U nivers 100 mg 2-05 tablet by ity of tablet 00:00: mouth [place] 00 daily. Medical Branch thiamine 0 Yes [id number] 100mg Take 1 U nivers 100 mg 2-05 tablet by ity of tablet 00:00: mouth [place] 00 daily. Medical Branch thiamine 0 Yes [id number] 100mg Take 1 U nivers 100 mg 2-05 tablet by ity of tablet 00:00: mouth [place] 00 daily. Medical Branch thiamine 0 Yes [id number] 100mg Take 1 U nivers 100 mg 2-05 tablet by ity of tablet 00:00: mouth [place] 00 daily. Medical Branch thiamine Yes [id number] 100mg Take 1 U nivers 100 mg 2-05 tablet by ity of tablet 00:00: mouth [place] 00 daily. Medical Branch thiamine Yes [id number] 100mg Take 1 U nivers 100 mg 2-05 tablet by ity of tablet 00:00: mouth [place] 00 daily. Medical Branch thiamine 2- No [id number] 100mg Take 1 Univers 100 mg 2-05 04-16 tablet by ity of tablet 00:00: 00:00 mouth [place] 00 :00 daily. Medical Branch fluoxetine Yes Take by [facility] ers HCl (PROZAC 2-04 mouth. ity of ORAL) 19:18: [place] 35 Medical Branch gabapentin Yes Take by [facility] ers ER 300 mg 2-04 mouth ity of tablet, 19:18: daily. [place] extended 35 Medical release 24 Branch hr proMETHazin Yes 12.5mg Take 12.5 Univers e 25 mg 2-04 mg by ity of tablet 19:18: mouth [place] 35 every 6 Medical (six) Branch hours as needed. prazosin 1 Yes 1mg Take 1 mg Un [place]enn[place] mg capsule 2-04 by mouth ity o f 19:18: at [place] [address] bedtime. Medical Branch traZODone Yes 50mg Take 50 mg Un [place] 50 mg 2-04 by mouth ity of tablet 19:18: at [place] 35 bedtime. Medical Branch levETIRAcet Yes 500mg Take 500 U nivers am 500 mg 2-04 mg by ity of tablet 19:18: mouth 2 [place] 35 (two) Medical times Branch daily. fluoxetine Yes Take by Univ ers HCl (PROZAC 2-04 mouth. ity of ORAL) 19:18: [place] [address] Medical Branch gabapentin 0 Yes Take by Univ ers ER 300 mg 2-04 mouth ity of tablet, 19:18: daily. [place] extended Medical release 24 Branch hr proMETHazin 2020-0 Yes 12.5mg Take 12.5 Univers e 25 mg 2-04 mg by ity of tablet 19:18: mouth [place] [address] every 6 Medical (six) Branch hours as needed. prazosin 1 Yes 1mg Take 1 mg Un [place] mg capsule 2-04 by mouth ity o f 19:18: at [place] [address] bedtime. Medical Branch traZODone 0 Yes 50mg Take 50 mg [place] 50 mg 2-04 by mouth ity of tablet 19:18: at [place] [address] bedtime. Medical Branch levETIRAcet Yes 500mg Take 500 U nivers am 500 mg 2-04 mg by ity of tablet 19:18: mouth 2 [place] [address] (two) Medical times Branch daily. fluoxetine Yes Take by [employer] ers HCl (PROZAC 2-04 mouth. ity of ORAL) 19:18: [place] [address] Medical Branch gabapentin Yes Take by Univ ers ER 300 mg 2-04 mouth ity of tablet, 19:18: daily. [place] extended Medical release 24 Branch hr proMETHazin 2020- Yes 12.5mg Take 12.5 Univers e 25 mg 2-04 mg by ity of tablet 19:18: mouth [place] [address] every 6 Medical (six) Branch hours as needed. prazosin 1 0 Yes 1mg Take 1 mg [place] mg capsule 2-04 by mouth ity o f 19:18: at [place] [address] bedtime. Medical Branch traZODone 2020-0 Yes 50mg Take 50 mg [place] 50 mg 2-04 by mouth ity of tablet 19:18: at [place] [address] bedtime. Medical Branch levETIRAcet 0 Yes 500mg Take 500 U nivers am 500 mg 2-04 mg by ity of tablet 19:18: mouth 2 [place] [address] (two) Medical times Branch daily. fluoxetine 0 Yes Take by Univ ers HCl (PROZAC 2-04 mouth. ity of ORAL) 19:18: [place] Medical Branch gabapentin Yes Take by Univ ers ER 300 mg 2-04 mouth ity of tablet, 19:18: daily. [place] extended 35 Medical release 24 Branch hr proMETHazin Yes 12.5mg Take 12.5 Univers e 25 mg 2-04 mg by ity of tablet 19:18: mouth [place] [address] every 6 Medical (six) Branch hours as needed. prazosin 1 Yes 1mg Take 1 mg [place] mg capsule 2-04 by mouth ity o f 19:18: at [place] [address] bedtime. Medical Branch traZODone Yes 50mg Take 50 mg [place] 50 mg 2-04 by mouth ity of tablet 19:18: at [place] [address] bedtime. Medical Branch levETIRAcet Yes 500mg Take 500 U nivers am 500 mg 2-04 mg by ity of tablet 19:18: mouth 2 [place] [address] (two) Medical times Branch daily. fluoxetine Yes Take by [employer] ers HCl (PROZAC 2-04 mouth. ity of ORAL) 19:18: [place] [address] Medical Branch gabapentin Yes Take by Univ ers ER 300 mg 2-04 mouth ity of tablet, 19:18: daily. [place] extended Medical release 24 Branch hr proMETHazin Yes 12.5mg Take 12.5 Univers e 25 mg 2-04 mg by ity of tablet 19:18: mouth [place] [address] every 6 Medical (six) Branch hours as needed. prazosin 1 Yes 1mg Take 1 mg [place] mg capsule 2-04 by mouth ity o f 19:18: at [place] [address] bedtime. Medical Branch traZODone Yes 50mg Take 50 mg [place] 50 mg 2-04 by mouth ity of tablet 19:18: at [place] [address] bedtime. Medical Branch levETIRAcet Yes 500mg Take 500 U nivers am 500 mg 2-04 mg by ity of tablet 19:18: mouth 2 [place] 35 (two) Medical times Branch daily. fluoxetine Yes Take by Univ ers HCl (PROZAC 2-04 mouth. ity of ORAL) 19:18: [place] [address] Medical Branch gabapentin Yes Take by [facility] ers ER 300 mg 2-04 mouth ity of tablet, 19:18: daily. [place] extended Medical release 24 Branch hr proMETHazin Yes 12.5mg Take 12.5 Univers e 25 mg 2-04 mg by ity of tablet 19:18: mouth [place] [address] every 6 Medical (six) Branch hours as needed. prazosin 1 Yes 1mg Take 1 mg [place] mg capsule 2-04 by mouth ity o f 19:18: at [place] [address] bedtime. Medical Branch traZODone Yes 50mg Take 50 mg [place] 50 mg 2-04 by mouth ity of tablet 19:18: at [place] [address] bedtime. Medical Branch levETIRAcet Yes 500mg Take 500 U nivers am 500 mg 2-04 mg by ity of tablet 19:18: mouth 2 [place] 35 (two) Medical times Branch daily. alprazolam 2020- No Take by [facility] vers (XANAX 2-04 02-04 mouth. ity of ORAL) 16:15: 00:00 [place] 51 :00 Medical Branch lisinopriL 0 2020- No 40mg Take 40 mg Univers 40 mg 2-04 02-04 by mouth ity of tablet 16:15: 00:00 daily. [place] 51 :00 Medical Branch buPROPion 2020- No 75mg Take 75 mg U nivers 75 mg 2-04 02-04 by mouth ity of tablet 16:15: 00:00 daily. [place] 51 :00 Medical Branch fluoxetine Yes Take by [facility] ers HCl (PROZAC 2-04 mouth. ity of ORAL) 13:18: [place] [address] Medical Branch gabapentin Yes Take by [facility] ers ER 300 mg 2-04 mouth ity of tablet, 13:18: daily. [place] extended Medical release 24 Branch hr proMETHazin Yes 12.5mg Take 12.5 Univers e 25 mg 2-04 mg by ity of tablet 13:18: mouth [place] [address] every 6 Medical (six) Branch hours as needed. prazosin 1 Yes 1mg Take 1 mg [place] mg capsule 2-04 by mouth ity o f 13:18: at [place] [address] bedtime. Medical Branch traZODone Yes 50mg Take 50 mg [place] 50 mg 2-04 by mouth ity of tablet 13:18: at [place] [address] bedtime. Medical Branch levETIRAcet Yes 500mg Take 500 U nivers am 500 mg 2-04 mg by ity of tablet 13:18: mouth 2 [place] [address] (two) Medical times Branch daily. LORazepam 2 Yes [id number] 10mg Take 5 Univers mg tablet 2-04 tablets by ity of 00:00: mouth 3 [place] [address] (three) Medical times Branch daily. LORazepam 2 Yes [id number] 10mg Take 5 Univers mg tablet 2-04 tablets by ity of 00:00: mouth 3 [place] (three) Medical times Branch daily. LORazepam 2 Yes [id number] 10mg Take 5 Univers mg tablet 2-04 tablets by ity of 00:00: mouth 3 [place] (three) Medical times Branch daily. LORazepam 2 Yes [id number] 10mg Take 5 Univers mg tablet 2-04 tablets by ity of 00:00: mouth 3 [place] (three) Medical times Branch daily. LORazepam 2 Yes [id number] 10mg Take 5 Univers mg tablet 2-04 tablets by ity of 00:00: mouth 3 [place] (three) Medical times Branch daily. LORazepam 2 Yes [id number] 10mg Take 5 Univers mg tablet 2-04 tablets by ity of 00:00: mouth 3 [place] (three) Medical times Branch daily. LORazepam 2 Yes [id number] 10mg Take 5 Univers mg tablet 2-04 tablets by ity of 00:00: mouth 3 [place] (three) Medical times Branch daily. LORazepam 2 2021- No [id number] 10mg Take 5 Univers mg tablet 2-04 04-16 tablets by ity of 00:00: 00:00 mouth 3 [place] 00 :00 (three) Medical times Branch daily. [...] last Branch modificati on) on Sat11/01/20 at 2000, Until Discontinu ed, Routine LORazepam 2020- No 7mg 7 mg, Univer s (ATIVAN) 11-01 Oral, TID, ity of tablet 7 mg 02:00: 00:16 First dose [place] 00 :23 (after Medical last Branch modificati on) on Sat10/31/20 at 2000, Until Discontinu ed, Routine Polyethylen 2020- No [...] 1 [place] mg 00 :00 dose, [facility] 10/27/20 at Branch 0145, Routine LORazepam [...] of 350 16:33: 16:33 s, ONCE, 1 [place] BULK-100 00 :00 dose, Wed Medica l mL) 10/26/20 at [place] injection 1045, 80 mL Routine LORazepam 2020- No 5mg 5 mg, Univer s (ATIVAN) 10-26 Oral, QID, ity of tablet 5 mg 02:00: 21:27 First dose [place] 00 :00 on [facility] 10/25/20 at Branch 2000, Until Discontinu ed, Routine diazePAM 2020- No 20mg 20 mg, Univer s (VALIUM) 10-21 Oral, TID, ity of tablet 20 21:15: 00:23 First dose [place] mg 00 :49 on Sat [facility] 10/21/20 at Branch 1515, Until Discontinu ed, Routine thiamine Yes 100mg 100 mg, Unive rs (VITAMIN 1-15 Oral, ity of B1) tablet 15:00: DAILY, [place] 100 mg 00 First dose Medical on Sat [place] 10/21/20 at 0900, Until Discontinu ed, Routine magnesium 2020- No 2g 2 g, IV Univ ers sulfate in 10-21 Piggyback, it y of water 2 14:15: 14:28 ONCE, 1 [place] gram/50 mL 00 :00 dose, Sat Medi srinivasa (4 %) 10/21/20 at [place] infusion 2 0815, g Routine labetaloL No [...] [place] mEq 00 :00 dose, Sat [facility] 10/21/20 at Branch 0715, Routine diazePAM 2020- No 15mg 15 mg, Univer s (VALIUM) 10-21 Intravenou ity of injection 02:00: 21:13 s, BID, [place] 15 mg 00 :18 First dose Medical (after Branch last modificati on) on [facility] 10/20/20 at 2000, Until Discontinu ed, Routine diazePAM No 15mg 15 mg, Univer s (VALIUM) 10-20 Intravenou ity of injection 21:00: 21:13 s, DAILY [place] 15 mg 00 :18 AT 1500, Medical First dose Branch (after last modificati on) on [place] 10/20/20 at 1500, Until Discontinu ed, Routine amLODIPine 2021-0 2021- No 10mg 10 mg, Univ ers (NORVASC) [...] Medical 10/19/20 at Branch 0430, Routine gadoteridol 2020-2020- No .2mL/kg 9.08 mL Univers (PROHANCE-1 10-18 [...] [place] 10 mL 41 Starting Medical Tue Branch 10/18/20 at 0958, Until Discontinu ed, Routine, line maintenanc e lidocaine Yes 5mL 5 mL, Univers 1% (PF) 10-18 Subcutaneo ity of (XYLOCAINE) 15:58: us, PRN, [place] injection 5 41 Starting Medi srinivasa mL Tue Branch 10/18/20 at 0958, Until Discontinu ed, Routine, Local anesthesia KCL No 40meq 40 mEq, IV Unive rs (POTASSIUM 10-18 Piggyback, it y of CHLORIDE) 12:35: 14:17 ONCE, 1 [place] 40 mEq in 00 :00 dose, Tue Medic al NaCl 0.9% 10/18/20 at [facility] (NS) 0645, 250 piggyback mL diazePAM 2020- [...] dose, Mon Medica l mL) 10/17/20 at [place] injection 1000, 100 mL Routine NaCl 0.9% 2020- No 1000mL at 125 Uni vers (NS) IV 10-17 mL/hr, IV ity of infusion 15:45: 17:06 Infusion, [place] 1,000 mL 00 :41 CONTINUOUS Medic al , Starting Branch [facility] 10/17/20 at 0945, Until Sat10/18/20 at [...] 1 [place] mg 00 :00 dose, [facility] Medical 10/17/20 at Branch 0215, Routine haloperidol No 1mg 1 mg, Slow Univers lactate 10-17 IV Push, ity of (HALDOL) 03:45: 06:27 ONCE, 1 [place] injection 1 00 :00 dose, [place] Med ical mg 10/16/20 at Branch 2145, [...] (NS) First dose Bran ch piggyback on [facility] 10/15/20 at 2000, 50 mL KCL 2020- No 40meq 40 mEq, IV Unive rs (POTASSIUM 10-16 Piggyback, it y of CHLORIDE) 00:30: 00:16 ONCE, 1 [place] 40 mEq in 00 :00 dose, Sat Medic al NaCl 0.9% 10/15/20 at [facility] h (NS) 1830, 250 piggyback mL lisinopriL 2020- No 40mg 40 mg, Univ ers (PRINIVIL,Z 10-15 Oral, ity of ESTRIL) 15:00: 13:46 DAILY, [place] tablet 40 00 :08 First dose Medi srinivasa mg on [facility] 10/15/20 at 0900, Until Discontinu ed, Routine KCL No 40meq 40 mEq, IV Unive rs (POTASSIUM 10-15 Piggyback, it y of CHLORIDE) 13:45: 14:17 ONCE, 1 [place] 40 mEq in 00 :00 dose, Sat Medic al NaCl 0.9% 10/15/20 at [facility] h (NS) 0745, 250 piggyback mL magnesium 2020- No 4g 4 g, IV Univ ers sulfate in 10-15 Piggyback, it y of water 4 13:45: 14:14 ONCE, 1 [place] gram/50 mL 00 :00 dose, Sat Medi srinivasa (8 %) IV 10/15/20 at [place] Piggyback 4 0745, g Routine KCL 2020- No 40meq 40 mEq, IV Unive rs (POTASSIUM 10-14 Piggyback, it y of CHLORIDE) 23:45: 03:11 ONCE, 1 [place] 40 mEq in 00 :00 dose, Fri Medic al NaCl 0.9% 10/14/20 at [facility] h (NS) 1745, 250 [...] First dose [place] (PHOS-NAK) 00 on Fri Medical [phone] 10/14/20 at [facility] nc mg packet 1 0800, Packet Until Discontinu [...] 1 [place] mg 00 :00 dose, [facility] Medical 10/13/20 at Branch 1315, Routine pantoprazol Yes 40mg 40 mg, Univ ers e 10-13 Oral, ity of (PROTONIX) 15:00: DAILY, [place] EC tablet 00 First dose Medi srinivasa 40 mg on [facility] Branch 10/13/20 at 0900, Until Discontinu ed, Routine magnesium No 4g 4 g, IV Univ ers sulfate in 10-13 Piggyback, it y of water 4 15:00: 13:57 ONCE, 1 [place] gram/50 mL 00 :00 dose, [facility] Medi srinivasa (8 %) IV 10/13/20 at [place] Piggyback 4 0900, g Routine thiamine 2020- [...] [place] Medic al NaCl 0.9% 10/13/20 at [facility] h (NS) 0715, 250 piggyback mL acetaminoph Yes 650mg 650 mg, Un [place] en 10-13 Oral, ity of (TYLENOL) 08:13: Q6HPRN, [place] tablet 650 16 Starting Medic al mg [place] 10/13/20 Branch at 0213, Until Discontinu ed, Routine, Pain (scale 4-6) docusate Yes 100mg 100 mg, Unive rs (COLACE) 10-13 Oral, ity of capsule 100 08:13: QDAILYPRN, [place] mg 16 Starting Medical [place] 10/13/20 Branch at 0213, Until Discontinu ed, Routine, Constipati on fosphenytoi 2020- No 900mg{p 900 mg PE, Univers n (CEREBYX) 10-13 henytoi IV ity of 900 mg PE 03:15: 03:07 n'equiv Piggyback, [place] in NaCl 00 :00 alent} ONCE, 1 Medical 0.9% (NS) dose, Wed [facility] h piggyback 10/12/20 at 2115, 100 mL diazePAM 2020- No 2mg 2 mg, Slow [place] (VALIUM) 10-12 IV Push, ity of injection 2 16:45: 15:34 ONCE, 1 [place] mg 00 :00 dose, [facility] 10/12/20 at Branch 1045, STAT diazePAM 2020- No 2mg 2 mg, Slow [place] (VALIUM) 10-12 IV Push, ity of injection 2 10:38: 10:40 ONCE, 1 [place] mg 00 :00 dose, [facility] Medical 10/12/20 at Branch 0445, STAT D5W 0.45% 2020- No 1000mL at 125 Uni vers NaCl 10-12-07 mL/hr, ity of (1/2NS) IV 07:30: 23:47 [...] 1 dose, 10/11/20 at 2145, STAT ALPRAZolam 2020-0 Yes 2mg Q24H Take 2 mg Me thodi (XANAX) 2 9-[address] MG tablet 15:47: daily as Hosp aldair 49 needed for l anxiety. ALPRAZolam 2020-0 Yes 2mg Q24H Take 2 mg Me thodi (XANAX) 2 9-[address] MG tablet 15:47: daily as Hosp aldair 49 needed for l anxiety. acetaminoph 2019- No 1{tbl} 1 tablet, Univers en-codeine -04 04- Oral, ity of (TYLENOL 16:00: 14:55 ONCE, 1 [place] #3) 300-30 00 :00 dose, Mon Medi srinivasa mg tablet 1 04/04/20 at Br anch tablet 1100, WILFREDO acetaminoph 2019- Yes [id number] 1{tbl} Take 1 Univers en-codeine - tablet by ity of (TYLENOL-CO 00:00: mouth [place] DEINE #3) 00 every 4 Medical 300-30 mg (four) Branch tablet hours as needed for Pain (scale 1-3). acetaminoph 2020- No [id number] 1{tbl} Take 1 Univers en-codeine 6-29 02-04 tablet by ity of (TYLENOL-CO 00:00: 00:[place] #3[place] 00 :00 every 4 Medical 300-30 mg (four) Branch tablet hours as needed for Pain (scale 1-3). SUMAtriptan 2019- No 6mg 6 mg, Univ ers (IMITREX) [...] IV Medical Infusion, Branch ONCE, 1 dose, [facility] 06/08/19 at 1030, WILFREDO fluoxetine Yes Take by [facility] ers HCl (PROZAC - mouth. ity of ORAL) 14:52: [address] alprazolam Yes Take by [facility] ers (XANAX -02 mouth. ity of ORAL) 14:52: [address] fluoxetine Yes Take by [facility] ers HCl (PROZAC -02 mouth. ity of ORAL) 14:52: [address] alprazolam Yes Take by [facility] ers (XANAX -02 mouth. ity of ORAL) 14:52: [address] fluoxetine Yes Take by [facility] ers HCl (PROZAC -02 mouth. ity of ORAL) 14:52: [address] alprazolam Yes Take by [facility] ers (XANAX -02 mouth. ity of ORAL) 14:52: [address] fluoxetine Yes Take by [facility] ers HCl (PROZAC 9-02 mouth. ity of ORAL) 14:52: [address] alprazolam Yes Take by [facility] (XANAX 06-08 mouth. ity of ORAL) 14:52: [address] Bentyl 10 Yes Horacio 10 mg, [...] Boss mL, Route: l 16:37: IV, Drug [place] 00 form: INJ, ONCE, Start date: 02/14/12 11:37:00, Stop date: 02/14/12 11:37:00 Dilaudid 2011-0 No Horacio 1 mg, 0.5 Me moria 5-10 Colin Boss mL, Route: l 16:37: IV, Drug [place] 00 form: INJ, ONCE, Start date: 02/14/12 11:37:00, Stop date: 02/14/12 11:37:00 Dilaudid 2011-0 No Horacio 1 mg, 0.5 Me moria 5-10 Colin Boss mL, Route: l 16:37: IV, Drug [place] 00 form: INJ, ONCE, Start date: 02/14/12 11:37:00, Stop date: 02/14/12 11:37:00 Dilaudid 2011-0 No Horacio 1 mg, 0.5 Me moria 5-10 Colin Boss mL, Route: l 16:37: IV, Drug John 00 form: INJ, ONCE, Start date: 02/14/12 11:37:00, Stop date: 02/14/12 11:37:00 Dilaudid 2011-0 No Horacio 1 mg, 0.5 Me moria 5-10 Colin Boss mL, Route: l 16:37: IV, Drug [place] 00 form: INJ, ONCE, Start date: 02/14/12 11:37:00, Stop date: 02/14/12 11:37:00 Dilaudid 2011-0 No Horacio 1 mg, 0.5 Me moria 5-10 Colin Boss mL, Route: l 16:37: IV, Drug John 00 form: INJ, ONCE, Start date: 02/14/12 11:37:00, Stop date: 02/14/12 11:37:00 Dilaudid 2011-0 No Horacio 1 mg, 0.5 Me moria 5-10 Colin Boss mL, Route: l 16:37: IV, Drug [place] 00 form: INJ, ONCE, Start date: 02/14/12 [...] Boss mL, Route: l 15:33: IVP, Drug [place] 00 form: INJ, ONCE, Priority: STAT, Start [...] Boss mL, Route: l 15:33: IVP, Drug [place] 00 form: INJ, ONCE, Priority: STAT, Start date: 02/14/12 10:33:00, Stop date: 02/14/12 10:33:00 Zofran 2011-0 No Horacio 4 mg, Memoria 5-10 Colin Boss Route: l 15:25: IVP, Drug [place] 00 form: INJ, ONCE, Priority: STAT, Start [...] Colin Boss Route: l 15:25: IVP, Drug [place] 00 form: INJ, ONCE, Priority: STAT, Start date: 02/14/12 10:25:00, Stop date: 02/14/12 10:25:00 Zofran 2011-0 No Horacio 4 mg, Memoria 5-10 Colin Boss Route: l 15:25: IVP, Drug John 00 form: INJ, ONCE, Priority: STAT, Start date: 02/14/12 10:25:00, Stop date: 02/14/12 10:25:00 Zofran 2011-0 No Horacio 4 mg, Memoria 5-10 Colin Boss Route: l 15:25: IVP, Drug [place] 00 form: INJ, ONCE, Priority: STAT, Start date: 02/14/12 10:25:00, Stop date: 02/14/12 10:25:00 morphine 2012-0 No Horacio 4 mg, Memori a Sulfate 5-10 Colin Boss Route: l 14:16: IVP, ONCE, [place] 00 Priority: STAT, Start date: 02/14/12 9:16:00, Stop date: 02/14/12 9:16:00 morphine 2012-0 No Horacio 4 mg, Memori a Sulfate 5-10 Colin Boss Route: l 14:16: IVP, ONCE, [place] 00 Priority: STAT, Start date: 02/14/12 9:16:00, Stop date: 02/14/12 9:16:00 morphine 2012-0 No Horacio 4 mg, Memori a Sulfate 5-10 Colin Boss Route: l 14:16: IVP, ONCE, [place] 00 Priority: STAT, Start date: 02/14/12 9:16:00, Stop date: 02/14/12 9:16:00 morphine 2012-0 No Horacio 4 mg, Memori a Sulfate 5-10 Colin Boss Route: l 14:16: IVP, ONCE, [place] 00 Priority: STAT, Start date: 02/14/12 9:16:00, Stop date: 02/14/12 9:16:00 morphine 2012-0 No Horacio 4 mg, Memori a Sulfate 5-10 Colin Boss Route: l 14:16: IVP, ONCE, [place] 00 Priority: STAT, Start date: 02/14/12 9:16:00, Stop date: 02/14/12 9:16:00 morphine 2012-0 No Horacio 4 mg, Memori a Sulfate 5-10 Colin Boss Route: l 14:16: IVP, ONCE, John 00 Priority: STAT, Start date: 02/14/12 9:16:00, Stop date: 02/14/12 9:16:00 morphine 2012-0 No Horacio 4 mg, Memori a Sulfate 5-10 Colin Boss Route: l 14:16: IVP, ONCE, [place] 00 Priority: STAT, Start date: 02/14/12 9:16:00, [...] Boss mL, Route: l 13:54: IVP, Drug [place] 00 form: INJ, ONCE, Priority: STAT, Start date: 02/14/12 8:54:00, Stop date: 02/14/12 8:54:00 Zofran 2012-0 No Horacio 4 mg, 2 Memori a 5-10 Colin Boss mL, Route: l 13:54: IVP, Drug [place] 00 form: INJ, ONCE, Priority: STAT, Start date: 02/14/12 8:54:00, Stop date: 02/14/12 8:54:00 ketorolac 2012-0 No Horacio 30 mg, 1 Me moria 5-10 Colin Boss mL, Route: l 13:54: IVP, Drug [place] 00 form: INJ, ONCE, Priority: STAT, Start date: 02/14/12 8:54:00, Stop date: 02/14/12 8:54:00 Zofran 2012-0 No Horacio 4 mg, 2 Memori a 5-10 Colin Boss mL, Route: l 13:54: IVP, Drug [place] 00 form: INJ, ONCE, Priority: STAT, Start [...] Boss mL, Route: l 13:54: IVP, Drug [place] 00 form: INJ, ONCE, Priority: STAT, Start date: 02/14/12 8:54:00, Stop date: 02/14/12 8:54:00 Zofran 2012-0 No Horacio 4 mg, 2 Memori a 5-10 Colin Boss mL, Route: l 13:54: IVP, Drug [place] 00 form: INJ, ONCE, Priority: STAT, Start date: 02/14/12 8:54:00, Stop date: 02/14/12 8:54:00 ketorolac 2012-0 No Horacio 30 mg, 1 Me moria 5-10 Colin Boss mL, Route: l 13:54: IVP, Drug [place] 00 form: INJ, ONCE, Priority: STAT, Start [...] l capsule 12:42: John 25 Restoril 30 0 Yes Substituti Memoria mg oral 5-10 on Allowed l capsule 12:42: John 25 Restoril 30 2011-0 Yes Substituti Memoria mg oral 5-10 on Allowed l capsule 12:42: John 25 Restoril 30 0 Yes Substituti Memoria mg oral 5-10 on [...] Allowed l 12:42: John Stewart Atarax 25 0 Yes Substituti Me moria mg oral tab 5-10 on Allowed l 12:42: John Callerax 25 2011-0 Yes Substituti Me moria mg oral tab 5-10 on Allowed l 12:42: John Callerax 25 0 Yes Substituti Me moria mg oral tab [...] Allowed l 12:42: John Stewart Atarax 25 Yes Substituti Me moria mg oral tab 5-10 on Allowed l 12:42: John Stewart Atarax 25 Yes Substituti Me moria mg oral tab 5-10 on Allowed l 12:42: John Stewart Atarax 25 Yes Substituti Me moria mg oral tab 5-10 on Allowed l 12:42: John Stewart [place] Yes Substituti Memori a 10/325 oral 5-10 on l tablet 12:42: Allowed, John Kwan Mainvidhi guillen [place] Yes Substituti Memori a 10/325 oral 5-10 on l tablet 12:42: Allowed, John Kwan Mainvidhi [place] Yes Substituti Memori a 10/325 oral 5-10 on l tablet 12:42: Allowed, John Kwan Mainvidhi guillen [place] Yes Substituti Memori a 10/325 oral 5-10 on l tablet 12:42: Allowed, John Kwan Mainvidhi guillen [place] Yes Substituti Memori a 10/325 oral 5-10 on l tablet 12:42: Allowed, John Kwan Mainvidhi guillen [place] Yes Substituti Memori a 10/325 oral 5-10 on l tablet 12:42: Allowed, John Kwan Maintenjanay guillen [place] Yes Substituti Memori a 10/325 oral 5-10 on l tablet 12:42: Allowed, John Kwan Maintenjanay guillen [place] Yes Substituti Memori a 10/325 oral 5-10 on l tablet 12:42: Allowed, John Kwan Maintenjanay guillen [place] Yes Substituti Memori a 10/325 oral 5-10 on l tablet 12:42: Allowed, John Kwan Mainvidhi guillen [place] Yes Substituti Memori a 10/325 oral 5-10 on l tablet 12:42: Allowed, [place] 05 Maintenanc e Klonopin 2012-0 Yes Substituti Mem oria 5-10 [...] on Allowed l 12:41: John Ware Prozac 2012-0 Yes Substituti Memor ia 5-10 on Allowed l 12:41: John Davilazac 2012-0 Yes Substituti Memor ia 5-10 on Allowed l 12:41: John Jamil Prozac 2012-0 Yes Substituti Memor ia 5-10 on Allowed l 12:41: John Davilazac 2012-0 Yes Substituti Memor ia 5-10 on Allowed l 12:41: John Jamil Prozac 2012-0 Yes Substituti Memor ia 5-10 on Allowed l 12:41: John Jamil Prozac 2012-0 Yes Substituti Memor ia 5-10 on Allowed l 12:41: John Davilazac 2012-0 Yes Substituti Memor ia 5-10 on Allowed l 12:41: John Davilazac 2012-0 Yes Substituti Memor ia 5-10 on Allowed l 12:41: John Davilazac 2012-0 Yes Substituti Memor ia 5-10 on Allowed l 12:41: John Jamil Prozac 2012-0 Yes Substituti Memor ia 5-10 on Allowed l 12:41: [place] 48 No known No Univers medications ity of [place] [facility] [place] Immunizations Ordered Filled Immunization Date Status Comments [facility] e Immunization Name Name Influenza Virus 2020-05-18 [...] y of Vaccine Quad .5 mL 00:00:00 [place] [facility] IM 6+ MO Branch Influenza Virus 2020-05-18 Completed Universit y of Vaccine Quad .5 mL 00:00:00 [place] [facility] IM 6+ MO Branch Influenza Virus 2020-05-18 Completed Universit y of Vaccine [place] .5 mL 00:00:00 [place] [facility] IM 6+ MO Branch Influenza Virus 2020-05-18 Completed Universit y of Vaccine Quad .5 mL 00:00:00 [place] [facility] IM 6+ MO Branch Influenza Virus 2020-05-18 Completed Universit y of Vaccine Quad .5 mL 00:00:00 [place] [facility] IM 6+ MO Branch Influenza Virus 2020-05-18 Completed Universit y of Vaccine Quad .5 mL 00:00:00 [place] [facility] IM 6+ MO Branch Influenza Virus [...] y of Vaccine Quad .5 mL 00:00:00 [place] [facility] IM 6+ MO Branch Influenza Virus 2020-05-18 Completed Universit y of Vaccine Quad .5 mL 00:00:00 [place] [facility] IM 6+ MO Branch Influenza Virus 2020-05-18 Completed Universit y of Vaccine Quad .5 mL 00:00:00 [place] [facility] IM 6+ MO Branch Influenza Virus 2020-05-18 Completed Universit y of Vaccine Quad .5 mL 00:00:00 [facility] IM 6+ MO Branch Vital Signs Vital Name Observation Time Observation Value Comments Source Height 2022-12-06 11:35:00 167.64 CM Weight 2022-12-06 11:35:00 49.89 KG Systolic blood 2022-08-25 01:13:00 163 mm[Hg] Univer sity of pressure [place] [facility] [place] Diastolic blood 2022-08-25 01:13:00 88 mm[Hg] Unive rsity of pressure [place] [facility] [place] Heart rate 2022-08-25 01:13:00 88 /min Universi ty of [place] [facility] [place] Body temperature 2022-08-25 01:13:00 36.44 Susan Univ ersity of [place] [facility] [place] Oxygen saturation in 2022-08-25 01:13:00 97 /min University of Arterial blood by [place] Gumi[place] srinivasa Pulse oximetry Branch Respiratory rate 2022-08-24 21:00:00 18 /min Univ ersity of [place] [facility] Body weight 2022-08-23 18:00:00 38.964 kg Universi ty of [place] [facility] BMI 2022-08-23 18:00:00 13.86 kg/m2 Universi ty of [place] [facility] Body height 2022-08-19 00:43:00 167.6 cm Universi ty of [place] [facility] Diastolic blood 2022-08-05 20:34:00 95 mm[Hg] Unive rsity of pressure [place] [facility] [place] Heart rate 2022-08-05 20:34:00 88 /min Universi ty of [place] [facility] Body temperature 2022-08-05 20:34:00 36.39 Susan Univ ersity of [place] [facility] Respiratory rate 2022-08-05 20:34:00 16 /min Univ ersity of [place] [facility] Oxygen saturation in 2022-08-05 20:34:00 99 /min University of Arterial blood by [place] G[facility] srinivasa Pulse oximetry Branch Systolic blood 2022-08-05 20:34:00 163 mm[Hg] Univer sity of pressure [place] [facility] Body weight 2022-08-05 09:31:00 45.995 kg Universi ty of [place] [facility] BMI 2022-08-05 09:31:00 16.37 kg/m2 [...] /min University of Arterial blood by [place] G[facility] srinivasa Pulse oximetry Branch Body weight 2022-07-30 03:33:00 41.731 kg Universi ty of [place] [facility] BMI 2022-07-30 03:33:00 15.31 kg/m2 Universi ty of [place] [facility] Systolic blood 2022-02-01 20:17:00 141 mm[Hg] Univer sity of pressure [place] [facility] Diastolic blood 2022-02-01 20:17:00 82 mm[Hg] Unive rsity of pressure [place] [facility] Heart rate 2022-02-01 20:17:00 83 /min Universi ty of [place] [facility] Body temperature 2022-02-01 20:17:00 37.06 Susan Univ ersity of [place] [facility] Respiratory rate 2022-02-01 20:17:00 18 /min Univ ersity of [place] [facility] Oxygen saturation in 2022-02-01 20:17:00 99 /min University of Arterial blood by [place] srinivasa Pulse oximetry Branch Body height 2022-01-22 17:23:00 165.1 cm Universi ty of [place] [facility] Body weight 2022-01-22 17:23:00 41.731 kg Universi ty of [place] [facility] BMI 2022-01-22 17:23:00 15.31 kg/m2 Universi ty of [place] [facility] Systolic blood 2022-01-20 13:00:00 135 mm[Hg] Univer sity of pressure [place] [facility] Diastolic blood 2022-01-20 13:00:00 90 mm[Hg] Unive rsity of pressure [place] [facility] Heart rate 2022-01-20 13:00:00 84 /min Universi ty of [place] [facility] Body temperature 2022-01-20 12:00:00 36.67 Susan Univ ersity of [place] [facility] Respiratory rate 2022-01-20 12:00:00 16 /min Univ ersity of [place] [facility] Oxygen saturation in 2022-01-20 12:00:00 93 /min University of Arterial blood by [facility] Pulse oximetry Branch Body weight 2022-01-19 09:50:00 48.5 kg Universi ty of [place] [facility] BMI 2022-01-19 09:50:00 19.56 kg/m2 Universi ty of [place] [facility] Body height 2022-01-17 01:34:00 157.5 cm Universi ty of [place] [facility] Systolic blood 2020-11-10 13:25:00 98 mm[Hg] Univer sity of pressure [place] [facility] Diastolic blood 2020-11-10 13:25:00 60 mm[Hg] Unive rsity of pressure [facility] Heart rate 2020-11-10 13:25:00 81 /min Universi ty of [place] [facility] Body temperature 2020-11-10 13:25:00 36.28 Susan Univ ersity of [place] [facility] Respiratory rate 2020-11-10 13:25:00 18 /min Univ ersity of [place] [facility] Oxygen saturation in 2020-11-10 13:25:00 98 /min University of Arterial blood by [facility] Pulse oximetry Branch Body weight 2020-11-07 20:45:00 43.999 kg Universi ty of [place] [facility] BMI 2020-11-07 20:45:00 16.14 kg/m2 Universi ty [facility] [place] [facility] Body height 2020-10-17 17:36:00 165.1 cm Universi ty [facility] [place] [facility] Systolic blood 2020-04-04 14:40:00 149 mm[Hg] Univer sity of pressure [place] [facility] Diastolic blood 2020-04-04 14:40:00 85 mm[Hg] Unive rsity of pressure [place] [facility] Heart rate 2020-04-04 14:40:00 88 /min Universi ty of [place] [facility] Body temperature 2020-04-04 14:40:00 36.89 Susan Univ ersity of [place] [facility] Respiratory rate 2020-04-04 14:40:00 18 /min Univ ersity of [facility] Body weight 2020-04-04 14:40:00 68.04 kg Universi ty of [facility] Oxygen saturation in 2020-04-04 14:40:00 97 /min University of Arterial blood by [facility] Pulse oximetry Branch Systolic blood 2019-06-08 16:00:00 163 mm[Hg] Univer sity of pressure [facility] Diastolic blood 2019-06-08 16:00:00 88 mm[Hg] Unive rsity of pressure [facility] Heart rate 2019-06-08 16:00:00 64 /min Universi ty of [facility] Respiratory rate 2019-06-08 16:00:00 17 /min [facility] ersity of [facility] Oxygen saturation in 2019-06-08 16:00:00 100 /min [facility] Arterial blood by [facility] Pulse oximetry [place] Body temperature 2019-06-08 14:46:00 36.89 Susan [facility] ersity of [facility] Body weight 2019-06-08 14:44:00 43.092 kg Universi of [facility] Weight 2012-02-14 12:29:00 [facility] Height 2012-02-14 12:29:00 170.18 cm [facility] Procedures Procedure Date / Time Performing Clinician Source Performed REPL R HIP JNT FEMR METL 2022-12-04 [facility] 00:00:00 [place] BASIC METABOLIC PANEL (NA, 2022-08-23 Ronnie Abarca [facility] rsity of K, CL, CO2, GLUCOSE, BUN, 18:39:00 [place] [facility] CREATININE[place]) Branch POCT GLUCOSE (AUTOMATED) 2022-08-23 Destinee Casanova [facility] sity of 13:23:00 [facility] BASIC METABOLIC PANEL (NA, 2022-08-22 Ronnie Abarca [facility] rsity of K, CL, CO2, GLUCOSE, BUN, 10:23:00 [place] [facility] CREATININE, [place]) Branch AUTHORIZATION FOR RELEASE OF 2022-08-22 Doctor Unassigned, [facility] 06:01:00 Name [facility] POCT GLUCOSE (AUTOMATED) 2022-08-22 Destinee Casanova [facility] sity of 02:24:00 [facility] XR KUB 2022-08-21 Ronnie Abarca [facility] 22:49:00 [facility] BASIC METABOLIC PANEL (NA, 2022-08-21 Ron[facility] K, CL, CO2, GLUCOSE, BUN, 09:47:00 [place] [facility] CREATININE, [place]) Branch MAGNESIUM 2022-08-20 [facility] of 11:33:00 [facility] BASIC METABOLIC PANEL (NA, 2022-08-20 [facility] ersity of K, CL, CO2, GLUCOSE, BUN, 11:33:00 [place] [facility] CREATININE, [place]) Branch CBC WITH DIFF 2022-08-20 [facility] of 11:33:00 [facility] BASIC METABOLIC PANEL (NA, 2022-08-19 [facility] ersity of K, CL, CO2, GLUCOSE, BUN, 19:28:00 [place] [facility] CREATININE, [place]) Branch MAGNESIUM 2022-08-19 [facility] of 11:48:00 [facility] CORTISOL AM 2022-08-19 [facility] of 11:48:00 [facility] VITAMIN B12, LEVEL 2022-08-19 [facility] o f 11:48:00 [facility] FOLATE 2022-08-19 [facility] of 11:48:00 [facility] THYROID STIMULATING HORMONE 2022-08-19 [facility] versity of 11:48:00 [facility] BASIC METABOLIC PANEL (NA, 2022-08-19 [facility] ersity of K, CL, CO2, GLUCOSE, BUN, 11:48:00 [place] [facility] CREATININE, [place]) Branch CBC WITH DIFF 2022-08-19 [facility] of 11:48:00 [facility] EKG-12 LEAD 2022-08-18 Yojana Max [facility] of 19:59:35 [facility] XR CHEST 1 VW 2022-08-18 Yojana Max [facility] of 18:07:00 [facility] OSMOLALITY, SERUM OR PLASMA 2022-08-18 Yojana Max Uni versity of 17:56:00 [facility] OSMOLALITY URINE 2022-08-18 Yojana Max [facility] of 17:56:00 [facility] AMMONIA, PLASMA 2022-08-18 Yojana Max [facility] of 17:56:00 [facility] TROPONIN I 2022-08-18 Yojana Max [facility] 17:56:00 [facility] COMP. METABOLIC PANEL 2022-08-18 [id number] 17:56:00 [facility] CBC WITH DIFF 2022-08-18 Yojana Max [facility] 17:56:00 [facility] URINALYSIS 2022-08-18 Yojana Max [facility] 17:56:00 [facility] N-TERMINAL PRO-BNP 2022-08-18 Yojana Max [facility] o f 17:56:00 [facility] SODIUM, URINE RANDOM 2022-08-18 Yojana Max [facility] 17:56:00 [facility] CONSENT/REFUSAL FOR 2022-08-18 Doctor Unassigned, No Univ sity of DIAGNOSIS AND TREATMENT 17:13:53 Name [facility] 2022-08-05 Ariel Reynolds [facility] 09:52:00 [facility] BASIC METABOLIC PANEL (NA, 2022-08-05 Maggie Monsalve U niversity of K, CL, CO2, GLUCOSE, BUN, 09:52:00 [facility] CREATININE, [place]) Branch PHOSPHORUS 2022-08-04 Willem Duff [facility] of 10:48:00 [facility] MAGNESIUM 2022-08-04 [facility] 10:48:00 [facility] CORTISOL AM 2022-08-04 [facility] 10:48:00 [facility] OSMOLALITY, SERUM OR PLASMA 2022-08-04 Willem Duff [facility] ersity of 10:48:00 [facility] THYROID STIMULATING HORMONE 2022-08-04 Maggie Monsalve [facility] of 10:48:00 [facility] COMP. METABOLIC PANEL 2022-08-04 Willem Duff [facility] of ([id number]) 10:48:00 [facility] CBC WITH DIFF 2022-08-04 [facility] 10:[facility]00 [facility] N-TERMINAL PRO-BNP 2022-08-04 [facility] 10:48[facility]00 [facility] XR CHEST 1 VW 2022-08-04 [facility] 10:15:00 [facility] AC PANEL 21 + LACTIC ACID 2022-08-04 [facility] sity of 05:26:00 [facility] PREALBUMIN, SERUM 2022-08-04 [facility], [facility] of 05:19:00 [facility] URIC ACID 2022-08-04 [facility], [facility] of 05:19:00 [facility] MAGNESIUM 2022-08-04 [facility], [facility] of 05:19:00 [facility] FERRITIN SERUM 2022-08-04 [facility], [facility] of 05:19:00 [facility] OSMOLALITY, SERUM OR PLASMA 2022-08-04 Omega, [facility] ersity of 05:19:00 [facility] VITAMIN B12, LEVEL 2022-08-04 Omega, [facility] of 05:19:00 [facility] LIPID PANEL ([id number])(TOTAL 2022-08-04 [facility], [facility] sit of CHOLESTEROL, TRIGLYCERIDES, 05:19:00 [facility]) [place] IRON PANEL 2022-08-04 Omega, [facility] of 05:19:00 [facility] PROTHROMBIN TIME / INR 2022-08-04 [facility] y of 05:19:00 [facility] N-TERMINAL PRO-BNP 2022-08-04 Omega, [facility] of 05:19:00 [facility] VITAMIN D, 25-OH 2022-08-04 Omega, [facility] of 05:19:00 [facility] PROCALCITONIN 2022-08-04 [facility] of 05:19:00 [facility] OSMOLALITY URINE 2022-08-04 [facility] of 04:42:00 [facility] UREA NITROGEN, URINE RANDOM 2022-08-04 [facility] ersity of 04:42:00 [facility] [facility] URINE DRUG (IMMUNOASSAY) - 2022-08-04 [facility] of COMPREHENSIVE DRUG SCREEN 03:15:00 [facility] CREATINE KINASE 2022-08-03 [facility] of 19:25:00 [facility] LIPASE 2022-08-03 Bashir [facility] of 19:25:00 [facility] HEPATIC FUNCTION PANEL 2022-08-03 [facility] ([id number]) (ALB,T.PRO,BILI 19:25:00 [facility] dicca T,BU/BC,ALT,AST,ALK PHOS) Branch BASIC METABOLIC PANEL (NA, 2022-08-03 [facility] rsity of K, CL, CO2, GLUCOSE, BUN, 19:25:00 [facility] CREATININE, [place]) Branch CBC WITH DIFF 2022-08-03 [facility] of 19:25:00 [facility] GLYCOSYLATED HEMOGLOBIN 2022-08-03 [facility] of (A1C) 19:25:00 [facility] URINALYSIS 2022-08-03 [facility] 19:25:00 [facility] SODIUM, URINE RANDOM 2022-08-03 [facility] 19:25:00 [facility] PROTEIN CREAT RATIO URINE 2022-08-03 [facility] sity of RANDOM 19:25:00 [facility] CONSENT/REFUSAL FOR 2022-08-03 Doctor Unassigned, No Univer sity of DIAGNOSIS AND TREATMENT 18:38:27 Name [facility] dical [place] CT HEAD WO CONTRAST 2022-07-30 Norberto Vasquez [facility] 06:18:00 [facility] XR CHEST 1 VW 2022-07-30 Christina [facility] 06:17:00 [facility] URINE DRUG (IMMUNOASSAY) - 2022-07-30 Norberto Vasquez [facility] of COMPREHENSIVE DRUG SCREEN 04:47:00 [facility] URINALYSIS 2022-07-30 Christina Ksporter [facility] 04:47:00 [facility] LIPASE 2022-07-30 [facility] 04:35:00 [facility] COMP. METABOLIC PANEL 2022-07-30 Norberto Vasquez [facility] ([id number]) 04:35:00 [facility] CBC WITH DIFF 2022-07-30 Norberto Vasquez [facility] 04:35:00 [facility] XR PELVIS 3+ VW 2022-02-01 Juan Guthrie [facility] of 02:12:00 [facility] MAGNESIUM 2022-01-29 Lico Holguin [facility] of 10:18:00 [facility] BASIC METABOLIC PANEL (NA, 2022-01-29 Lico Holguin [facility] rsity of K, CL, CO2, GLUCOSE, BUN, 10:18:00 [facility] CREATININE, [place]) Branch CBC WITH DIFF 2022-01-29 Lico Holguin [facility] of 10:18:00 [facility] MAGNESIUM 2022-01-27 Marybeth Turcios [facility] of 10:34:00 [facility] BASIC METABOLIC PANEL (NA, 2022-01-27 Marybeth Turcios rsity of K, CL, CO2, GLUCOSE, BUN, 10:34:00 [facility] CREATININE, [place]) Branch CBC WITH DIFF 2022-01-27 Marybeth Turcios of 10:34:00 [facility] BLOOD CULTURE SCREEN 2022-01-26 Marybeth Turcios of 17:31:00 [facility] BLOOD CULTURE SCREEN 2022-01-26 Marybeth Turcios of 16:09:00 [facility] VITAMIN B6, PLASMA 2022-01-26 Marybeth Turcios of 09:11:00 [facility] MAGNESIUM 2022-01-25 Marybeth Turcios of 08:22:00 [facility] BASIC METABOLIC PANEL (NA, 2022-01-25 Marybeth Turcios rsity of K, CL, CO2, GLUCOSE, BUN, 08:22:00 [facility] CREATININE, [place]) Branch ELECTROENCEPHALOGRAM 2022-01-25 Harper [facility] y of 00:00:00 [facility] COPPER, SERUM 2022-01-24 Marybeth Turcios of 19:59:00 [facility] ZINC, SERUM 2022-01-24 Marybeth Turcios of 19:59:00 [facility] CERULOPLASMIN 2022-01-24 Marybeth Turcios of 19:59:00 [facility] MAGNESIUM 2022-01-24 Marybeth Turcios of 09:34:00 [facility] VITAMIN B12, LEVEL 2022-01-24 Marybeth Turcios of 09:34:00 [facility] FOLATE 2022-01-24 Marybeth Turcios of 09:34:00 [facility] BASIC METABOLIC PANEL (NA, 2022-01-24 Marybeth Turcios rsity of K, CL, CO2, GLUCOSE, BUN, 09:34:00 [facility] CREATININE, [place]) Branch CBC WITH DIFF 2022-01-24 [facility] of 09:34:00 [facility] CT HEAD WO CONTRAST 2022-01-23 FordeKristian Castro [facility] sity of 10:26:00 [facility] HB ECG ROUTINE & RHYTHM 2022-01-23 [facility] HospitalRoqueLuis F colvinrique Un iversity of STRIP 02:59:29 [facility] GALV ONLY - INFLUENZA A B 2022-01-23 [facility] RSV PCR 02:48:00 [facility] COVID-19 (ID NOW RAPID 2022-01-23 [facility]General [facility] HospitalRoqueLeo [facility] versity of TESTING) 02:48:00 [facility] LAB ONLY COVID 2022-01-23 [facility] On License Of [facility] of INTERPRETATION 02:48:00 [facility] SEDIMENTATION RATE 2022-01-23 [facility] HospitalLuis F [facility] ity of 02:45:00 [facility] VITAMIN B1 (THIAMINE), WHOLE 2022-01-23 [facility] HospitalLui sF [facility] of BLOOD 02:45:00 [facility] XR CHEST 1 VW 2022-01-23 [facility] 02:06:00 [facility] XR LUMBAR SPINE 2 VW 2022-01-23 [facility] rsity of 02:06:00 [facility] XR KUB 2022-01-23 [facility] 02:06:00 [facility] XR PELVIS <3 VW 2022-01-23 [facility] 02:06:00 [facility] HB ECG ROUTINE & RHYTHM 2022-01-22 [facility] rs[facility] of STRIP 19:58:42 [facility] URINE CULTURE 2022-01-22 Chiqui Rosen [facility] 19:55:00 [facility] URINE DRUG (IMMUNOASSAY) - 2022-01-22 Chiqui Rosen Un iversity of COMPREHENSIVE DRUG SCREEN 19:55:00 [facility] W/O REFLEX Branch URINALYSIS 2022-01-22 Chiqui Rosen [facility] 19:53:00 [facility] BLOOD CULTURE SCREEN 2022-01-22 Chiqui Rosen Universi ty of 18:01:00 [facility] MAGNESIUM 2022-01-22 Chiqui Rosen [facility] of 18:01:00 [facility] TROPONIN I 2022-01-22 EulaKristian Roque [facility] of 18:01:00 [facility] COMP. METABOLIC PANEL 2022-01-22 Chiqui Rosen [facility] ity of ([id number]) 18:01:00 [facility] CBC WITH DIFF 2022-01-22 Chiqui Rosen [facility] of 18:01:00 [facility] LACTIC ACID WHOLE BLOOD 2022-01-22 Chiqui Rosen Unive rsity of 18:01:00 [facility] BLOOD CULTURE WORKUP 2022-01-22 [facility]iqui Rosen [facility] ty of 18:01:00 [facility] BLOOD CULTURE WORKUP 2022-01-22 Chiqui Rosen [facility] ty of 18:01:00 [facility] GRAM POSITIVE BLOOD 2022-01-22 Chiqui Rosen [facility] y of PATHOGENS DNA PROBE-AEROBIC 18:01:00 [facility] CONSENT/REFUSAL FOR 2022-01-22 Doctor Unassigned, No Univer sity of DIAGNOSIS AND TREATMENT 17:11:50 Name [facility] HOSPITAL ADMISSION 2022-01-22 Doctor Unassigned, No Univers ity of 05:01:00 Name [facility] COMP. METABOLIC PANEL 2022-01-19 Rodrick Tomlinson [facility] of ([id number]) 11:32:00 [facility] CBC WITH DIFF 2022-01-19 Rodrick Tomlinson [facility] of 11:32:00 [facility] MR BRAIN WO CONTRAST 2022-01-18 Rodrick Tomlinson [facility] of 17:02:05 [facility] POCT GLUCOSE (AUTOMATED) 2022-01-17 Rodrick Tomlinson [facility] ity of 21:59:00 [facility] XR KUB 2022-01-17 Ulises Aguilar [facility] of 21:21:58 [facility] ADC OR FIDE ONLY - RPR 2022-01-17 [facility] of 20:27:00 [facility] MRSA / MSSA SCREEN BY PCR, 2022-01-17 [facility] rsity of NARES 16:42:00 [facility] POCT GLUCOSE (AUTOMATED) 2022-01-17 Rodrick Tomlinson [facility] ity of 16:41:00 [facility] POCT GLUCOSE (AUTOMATED) 2022-01-17 Rodrick Tomlinson [facility] ity of 13:03:00 [facility] PHOSPHORUS 2022-01-17 Rodrick Tomlinson [facility] of 09:57:00 [facility] VITAMIN B12, LEVEL 2022-01-17 Rodrick Tomlinson [facility] of 09:57:00 [facility] FOLATE 2022-01-17 Davi [facility] of 09:57:00 [facility] FREE T4 2022-01-17 Davi Rodrick [facility] of 09:57:00 [facility] ADC OR FIDE ONLY - RPR 2022-01-17 [facility] of 09:57:00 [facility] THYROID STIMULATING HORMONE 2022-01-17 Rodrick Tomlinson [facility] ersity of 09:56:00 [facility] MAGNESIUM 2022-01-17 Davi [facility] of 09:55:00 [facility] BASIC METABOLIC PANEL (NA, 2022-01-17 [facility] rs[facility] of K, CL, CO2, GLUCOSE, BUN, 09:55:00 [facility] CREATININE, [place]) Branch CBC WITH DIFF 2022-01-17 Rodrick Tomlinson [facility] of 09:55:00 [facility] URINE CULTURE 2022-01-17 Cassandra [place] Derek o f 00:05:00 [facility] COMP. METABOLIC PANEL 2022-01-16 Cassandra [facility] sity of ([id number]) 22:14:00 [facility] URINE DRUG (IMMUNOASSAY) - 2022-01-16 Norberto Trujillo niversity of COMPREHENSIVE DRUG SCREEN 21:57:00 [facility] TROPONIN I 2022-01-16 Cassandra [place] Derek o f 21:29:00 [facility] CBC WITH DIFF 2022-01-16 [place], [facility] o f 21:29:00 [facility] PROTHROMBIN TIME / INR 2022-01-16 [facility] of 21:29:00 [facility] URINALYSIS 2022-01-16 [facility] o f 21:29:00 [facility] CT HEAD WO CONTRAST 2022-01-16 [facility] ty of 21:11:19 [facility] HB ECG ROUTINE & RHYTHM 2022-01-16 [facility] ersity of STRIP 20:55:18 [facility] XR CHEST 1 VW 2022-01-16 [facility] o f 20:48:49 [facility] NOTICE OF PRIVACY PRACTICES 2022-01-16 Doctor Unassigned, N o University of 19:58:20 Name [facility] CONSENT/REFUSAL FOR 2022-01-16 Doctor Unassigned, No [facility] sity of DIAGNOSIS AND TREATMENT 19:57:56 Name [facility] AUTHORIZATION FOR RELEASE OF 2021-03-01 Doctor Unassigned, No [facility] 05:01:00 Name [facility] AUTHORIZATION FOR RELEASE OF 2021-02-16 Doctor Unassigned, No [facility] 05:01:00 Name [facility] EXTERNAL PROVIDER RECORDS 2020-11-22 Doctor Unassigned, No University of 06:01:00 Name [facility] COVID-19 (ID NOW RAPID 2020-11-10 Jey Mejía [facility] rsity of TESTING) 00:27:00 [facility] XR KUB 2020-11-09 Jey Mejía o f 23:36:27 [facility] BASIC METABOLIC PANEL (NA, 2020-11-09 Jey Mejía niversity of K, CL, CO2, GLUCOSE, BUN, 10:11:00 [facility] CREATININE, [place]) Branch CBC WITH DIFF 2020-11-09 Jey Mejía [facility] o f 10:11:00 [facility] BASIC METABOLIC PANEL (NA, 2020-11-07 Jey Mejía niversity of K, CL, CO2, GLUCOSE, BUN, 10:05:00 [facility] CREATININE, [place]) Branch CBC WITH DIFF 2020-11-07 Jey Mejía o f 10:05:00 [facility] HEPATIC FUNCTION PANEL 2020-11-05 Jey [facility]ía [facility] rs[facility] of ([id number]) (ALB,T.PRO,BILI 09:59:00 [facility] dical T,BU/BC,ALT,AST,ALK PHOS) Branch BASIC METABOLIC PANEL (NA, 2020-11-05 Jey Mejía niversity of K, CL, CO2, GLUCOSE, BUN, 09:59:00 [facility] CREATININE, [place]) Branch CBC WITH DIFF 2020-11-05 Jey Mejía o f 09:59:00 [facility] CEREBROSPINAL FLUID PROTEIN 2020-10-27 Jey Mejía [facility] of 19:49:00 [facility] CEREBROSPINAL FLUID GLUCOSE 2020-10-27 Jey Mejía [facility] of 19:49:00 [facility] BODY FLUID DIRECT COUNT 2020-10-27 Jey Mejía ersity of 19:49:00 [facility] CSF/INNERSOLE MAKER SHUNT CULTURE 2020-10-27 Jey Mejía [facility] ity of 19:49:00 [facility] CSF CULTURE 2020-10-27 Jey Mejía [facility] o f 19:49:00 [facility] BASIC METABOLIC PANEL (NA, 2020-10-27 Jey Mejía niversity of K, CL, CO2, GLUCOSE, BUN, 11:41:00 [facility] CREATININE, [place]) Branch CBC WITH DIFF 2020-10-27 Jey Mejía o f 11:41:00 [facility] POCT GLUCOSE (AUTOMATED) 2020-10-27 Frances Terry ity of 01:51:00 [facility] COVID-19 (ID NOW RAPID 2020-10-26 Jey Mejía rsity of TESTING) 18:47:00 [facility] LAB ONLY COVID 2020-10-26 Jey Mejía o f INTERPRETATION 18:47:00 [facility] MR BRAIN W WO CONTRAST 2020-10-26 [facility] rs[facility] of 17:18:00 [facility] CT CHEST PULMONARY ANGIOGRAM 2020-10-26 Jey Mejía of 16:39:40 [facility] XR CHEST 1 VW 2020-10-26 [facility] of 13:00:00 [facility] D-DIMER 2020-10-26 César Urbina [facility] of 11:04:00 [facility] EXTRA TUBE RED 2020-10-26 Mara [facility] of 11:04:00 [facility] URINALYSIS 2020-10-26 Lindsey Urbina [facility] of 08:35:00 [facility] URINE CULTURE 2020-10-26 Lindsey Vega [facility] of 08:35:00 [facility] BLOOD CULTURE SCREEN 2020-10-26 César Sullivanga [facility] sity of 08:22:00 [facility] BLOOD CULTURE SCREEN 2020-10-26 Lindsey Vega [facility] sity of 08:11:00 [facility] MAGNESIUM 2020-10-26 [facility] of 08:02:00 [facility] BASIC METABOLIC PANEL (NA, 2020-10-26 [facility] of K, CL, CO2, GLUCOSE, BUN, 08:02:00 [facility] CREATININE, [place]) Branch EXTRA TUBE LAV 2020-10-26 Frances Terry [facility] of 08:02:00 [facility] MAGNESIUM 2020-10-25 [facility] of 10:43:00 [facility] BASIC METABOLIC PANEL (NA, 2020-10-25 [facility] of K, CL, CO2, GLUCOSE, BUN, 10:43:00 [facility] CREATININE, CA) Branch CBC WITH DIFF 2020-10-25 [facility] of 10:43:00 [facility] FREE T4 2020-10-24 Jey Mejía o f 19:55:00 [facility] MAGNESIUM 2020-10-24 Lindsey Urbina, [facility] of 09:22:00 [facility] THYROID STIMULATING HORMONE 2020-10-24 Jey Mejía [facility] of 09:22:00 [facility] BASIC METABOLIC PANEL (NA, 2020-10-24 [facility] of K, CL, CO2, GLUCOSE, BUN, 09:22:00 [facility] CREATININE, [place]) Branch CBC WITH DIFF 2020-10-24 [facility] of 09:22:00 [facility] BASIC METABOLIC PANEL (NA, 2020-10-22 Olivia, Sina Unive rsity of K, CL, CO2, GLUCOSE, BUN, 10:35:00 [facility] CREATININE, [place]) Branch CBC WITH DIFF 2020-10-22 [facility] o f 10:35:00 [facility] MAGNESIUM 2020-10-21 [facility] of 10:26:00 [facility] BASIC METABOLIC PANEL (NA, 2020-10-21 Olivia, [facility] rsity of K, CL, CO2, GLUCOSE, BUN, 10:26:00 [facility] CREATININE, [place]) Branch CBC WITH DIFF 2020-10-21 [facility] o f 10:26:00 [facility] TROPONIN I 2020-10-20 [facility] of 10:38:00 [facility] CBC WITH DIFF 2020-10-20 [facility] of 10:38:00 [facility] PROTHROMBIN TIME / INR 2020-10-20 [facility] ersity of 10:37:00 [facility] ACTIVATED PARTIAL THRMPLAS 2020-10-20 [facility] of CAMERON 10:37:00 [facility] MAGNESIUM 2020-10-20 [facility] of 09:30:00 [facility] HEPATIC FUNCTION PANEL 2020-10-20 [facility] ersity of ([id number]) (ALB,T.PRO,BILI 09:30:00 [facility] T,BU/BC,ALT,AST,ALK PHOS) Branch BASIC METABOLIC PANEL (NA, 2020-10-20 [facility] of K, CL, CO2, GLUCOSE, BUN, 09:30:00 [facility] CREATININE, [place]) Branch XR KUB 2020-10-19 [facility] of 11:25:00 [facility] Branch MAGNESIUM 2020-10-19 [facility] of 09:24:00 [facility] BASIC METABOLIC PANEL (NA, 2020-10-19 [facility] of K, CL, CO2, GLUCOSE, BUN, 09:24:00 [facility] CREATININE, [place]) Branch BASIC METABOLIC PANEL (NA, 2020-10-19 Jey Mejía niversity of K, CL, CO2, GLUCOSE, BUN, 04:08:00 [facility] CREATININE, [place]) Branch MAGNETIC RESONANCE IMAGING 2020-10-19 Anesthesiology Univ rsity of UNDER ANESTHESIA 03:25:00 [facility] MR BRAIN W WO CONTRAST 2020-10-18 [facility]ía [facility] of 21:29:00 [facility] MR ABDOMEN W WO CONTRAST 2020-10-18 Jey Mejía Uni versity of MRCP 21:29:00 [facility] ECHO ROUTINE W/DOPPLER COLOR 2020-10-18 Jey Mejía of 17:10:24 [facility] MAGNESIUM 2020-10-18 [facility] of 10:37:00 [facility] BASIC METABOLIC PANEL (NA, 2020-10-18 César Urbina [facility] Derek of K, CL, CO2, GLUCOSE, BUN, 10:37:00 [facility] CREATININE, [place]) Branch CBC WITH DIFF 2020-10-18 Jey Mejía o f 10:37:00 [facility] XR KUB 2020-10-17 Jey Mejía o f 22:52:00 [facility] BLOOD CULTURE SCREEN 2020-10-17 Jey Mejía [facility] ity of 21:53:00 [facility] MISCELLANEOUS SEND OUT TEST 2020-10-17 Macario Kirby of 19:57:00 [facility] URINALYSIS 2020-10-17 Jey Mejía o f 19:40:00 [facility] URINE CULTURE 2020-10-17 Jey Mejía o f 19:40:00 [facility] NEUTROPHIL CYTOPLASMIC AB, 2020-10-17 Jey Mejía U niversity of IGG 19:36:00 [facility] LACTIC ACID WHOLE BLOOD 2020-10-17 Jey Mejía [facility] ersity of 19:33:00 [facility] CANCER ANTIGEN-GI (CA 19-9) 2020-10-17 Jey Mejía [facility] of 19:21:00 [facility] BLOOD CULTURE SCREEN 2020-10-17 Jey Mejía [facility] it of 19:21:00 [facility] CARCINOEMBRYONIC ANTIGEN 2020-10-17 Jey Mejía [facility] versity of 19:21:00 [facility] BASIC METABOLIC PANEL (NA, 2020-10-17 Jey Mejía U niversity of K, CL, CO2, GLUCOSE, BUN, 19:21:00 [facility] CREATININE, CA) Branch CA-125 2020-10-17 Jey Mejía o f 19:21:00 [facility] CT ABDOMEN PELVIS W CONTRAST 2020-10-17 Maxx Kirby Emmons of 15:59:15 [facility] CT THORAX W CONTRAST 2020-10-17 Macario Kirby [facility] sity of 15:59:15 [facility] MAGNESIUM 2020-10-17 Macario Kirby of 11:12:00 [facility] C-REACTIVE PROTEIN 2020-10-17 Jey Mejía [facility] y of 11:12:00 [facility] BASIC METABOLIC PANEL (NA, 2020-10-17 Macario Kriby of K, CL, CO2, GLUCOSE, BUN, 11:12:00 [facility] CREATININE, [place]) Branch SEDIMENTATION RATE 2020-10-17 Jey Mejía [facility] y of 11:12:00 [facility] CBC WITH DIFF 2020-10-17 Macario Kirby of 11:12:00 [facility] MAGNESIUM 2020-10-17 [facility] 10:07:00 [facility] CBC WITH DIFF 2020-10-17 César Urbina [facility] of 10:07:00 [facility] MISCELLANEOUS SEND OUT TEST 2020-10-17 [facility] 10:07[facility]00 [facility] CEREBROSPINAL FLUID PROTEIN 2020-10-17 César Urbina [facility] of 07:57:00 [facility] CEREBROSPINAL FLUID GLUCOSE 2020-10-17 César Urbina [facility] of 07:57:00 [facility] BODY FLUID DIRECT COUNT 2020-10-17 Macario Kirby Uni versity of 07:57:00 [facility] CSF/INNERSOLE MAKER SHUNT CULTURE 2020-10-17 [facility] of 07:57:00 [facility] FUNGUS (ROUTINE) CULTURE 2020-10-17 Macario Kirby iversity of 07:57:00 [facility] MISCELLANEOUS SEND OUT TEST 2020-10-17 [facility] of 07:57:00 Stanton [facility] CSF CULTURE 2020-10-17 Lindsey Vega [facility] of 07:57:00 [facility] MISCELLANEOUS SEND OUT TEST 2020-10-17 César Urbina [facility] of 07:56:00 [facility] F-QYHMWH-K-ASPARTATE 2020-10-17 [facility] of RECEPTOR AB, CSF 07:56:00 [facility] ELECTROENCEPHALOGRAM 2020-10-17 Joey Domínguez Emmons of 00:00:00 [facility] MR BRAIN WO CONTRAST 2020-10-16 Samara [facility] of 21:37:16 [facility] CORTISOL AM 2020-10-16 Iveth Correia Emm[facility] of 11:01:00 [facility] BASIC METABOLIC PANEL (NA, 2020-10-16 Diana Randolph niversity of K, CL, CO2, GLUCOSE, BUN, 11:01:00 [facility] CREATININE, [place]) Branch POTASSIUM, URINE RANDOM 2020-10-16 Diana Randolph ersity of 06:25:00 [facility] Branch SODIUM, URINE RANDOM 2020-10-16 [facility], [facility] ity of 06:25:00 [facility] Branch MAGNESIUM, URINE RANDOM 2020-10-16 [place], [facility] ersity of 06:25:00 [facility] Branch CALCIUM, URINE RANDOM 2020-10-16 [facility], [facility] sity of 06:25:00 [facility] Branch GLUCOSE, URINE RANDOM 2020-10-16 [facility] of 06:25:00 [place] [facility] OSMOLALITY URINE 2020-10-15 [facility], [facility] of 22:40:00 [facility] Branch CREATININE, URINE RANDOM 2020-10-15 [facility], [facility] versity of 22:40:00 [facility] Branch SODIUM, URINE RANDOM 2020-10-15 [facility] of 22:40:00 [facility] Branch CALCIUM, URINE RANDOM 2020-10-15 [facility] sity of 22:40:00 [facility] Branch MAGNESIUM 2020-10-15 [facility] o f 21:50:00 [facility] BASIC METABOLIC PANEL (NA, 2020-10-15 [facility] niversity of K, CL, CO2, GLUCOSE, BUN, 21:50:00 [place] [facility] CREATININE, [place]) Branch PHOSPHORUS 2020-10-15 [facility] o f 11:34:00 [facility] MAGNESIUM 2020-10-15 [facility] o f 11:34:00 [facility] BASIC METABOLIC PANEL (NA, 2020-10-15 [facility] niversity of K, CL, CO2, GLUCOSE, BUN, 11:34:00 [place] [facility] CREATININE, [place]) Branch CBC WITHOUT DIFF 2020-10-15 [facility] of 11:34:00 [facility] XR KUB 2020-10-14 [facility] o f 23:45:10 [facility] XR CHEST 1 VW 2020-10-14 [facility] o f 21:24:07 [facility] BASIC METABOLIC PANEL (NA, 2020-10-14 [facility] Diana U niversity of K, CL, CO2, GLUCOSE, BUN, 20:54:00 [place] [facility] CREATININE, [place]) Branch HB ECG ROUTINE & RHYTHM 2020-10-14 [facility] ersity of STRIP 16:54:32 [facility] PHOSPHORUS 2020-10-14 [facility] o f 10:58:00 [facility] MAGNESIUM 2020-10-14 [facility] o f 10:58:00 [facility] BASIC METABOLIC PANEL (NA, 2020-10-14 [facility] niversity of K, CL, CO2, GLUCOSE, BUN, 10:58:00 [facility] CREATININE, [place]) Branch CBC WITHOUT DIFF 2020-10-14 [facility] of 10:58:00 [facility] CREATINE KINASE 2020-10-13 [facility] o f 22:41:00 [facility] AMMONIA, PLASMA 2020-10-13 [facility] o f 22:41:00 [facility] BASIC METABOLIC PANEL (NA, 2020-10-13 [facility] niversity of K, CL, CO2, GLUCOSE, BUN, 22:41:00 [facility] CREATININE, [place]) Branch VITAMIN B1, PLASMA 2020-10-13 Gustavo Uribe Emmons of 11:04:00 [facility] PHOSPHORUS 2020-10-13 [facility] of 11:04:00 [facility] CREATINE KINASE 2020-10-13 Jojo [facility] of 11:04:00 [facility] MAGNESIUM 2020-10-13 Jojo [facility] of 11:04:00 [facility] OSMOLALITY, SERUM OR PLASMA 2020-10-13 Iveth Correia [facility] versity of 11:04:00 [facility] VITAMIN B12, LEVEL 2020-10-13 Jojo [facility] of 11:04:00 [facility] RHEUMATOID FACTOR 2020-10-13 Jey Mejía Emmons of 11:04:00 Stanton [facility] TROPONIN I 2020-10-13 Jojo [facility] of 11:04:00 [facility] FREE T4 2020-10-13 Iveth Correia Emmons of 11:04:00 [facility] THYROID STIMULATING HORMONE 2020-10-13 Gustavo Uribe ersity of 11:04:00 [facility] HEPATIC FUNCTION PANEL 2020-10-13 Iveth Correia [facility] ty of ([id number]) (ALB,T.PRO,BILI 11:04:00 [facility] dical T,BU/BC,ALT,AST,ALK PHOS) Branch BASIC METABOLIC PANEL (NA, 2020-10-13 Gustavo Uribe rsity of K, CL, CO2, GLUCOSE, BUN, 11:04:00 [facility] CREATININE, [place]) Branch PHENYTOIN FREE 2020-10-13 [facility] of 11:04:00 [facility] SERUM DRUG (IMMUNOASSAY) - 2020-10-13 Gustavo Uribe rsity of COMPREHENSIVE DRUG SCREEN 11:04:00 [facility] CBC WITH DIFF 2020-10-13 [facility] of 11:04:00 [facility] PROTHROMBIN TIME / INR 2020-10-13 Gustavo Uribeit y of 11:04:00 [facility] ANTI-NUCLEAR ANTIBODY SCREEN 2020-10-13 Aravind Lockwood Jey Emmons of 11:04:00 [facility] HEPATITIS B VIRUS (HBV) BY 2020-10-13 Gustavo Uribe rsity of QUANTITATIVE NAAT 11:04:00 [facility] FREE T3 2020-10-13 [facility] of 11:04:00 [facility] HIV 1/2 AG-AB WITH REFLEX 2020-10-13 Gustavo Uribeer sity of 11:04:00 [facility] GALV ONLY - SYPHILIS IGG/IGM 2020-10-13 Gustavo Uribe versity of 11:04:00 [facility] ANTI-NUCLEAR 2020-10-13 Aravind Lockwood [facility] o f ANTIBODY-PATHOLOGIST 11:04:00 [facility] al INTERPRETATION Branch HEPATITIS C VIRUS (HCV) BY 2020-10-13 Gustavo Uribe rsity of QUANTITATIVE NAAT 11:03:00 [facility] CT HEAD WO CONTRAST 2020-10-13 Gustavo Uribe o f 09:58:38 [facility] XR CHEST 2 VW 2020-10-13 Gustavo Uribe Emmons of 09:42:38 [facility] HB ECG ROUTINE & RHYTHM 2020-10-13 Gustavo Uribe [facility] ty of STRIP 08:30:00 [facility] ELECTROENCEPHALOGRAM 2020-10-13 [facility] of 00:00:00 [facility] POCT GLUCOSE (AUTOMATED) 2020-10-12 James Allen [facility] ity of 13:36:00 [facility] POCT GLUCOSE (AUTOMATED) 2020-10-12 James Allen [facility] ity of 06:16:00 [facility] COVID-19 (ID NOW RAPID 2020-10-12 Jhonatan Lombardo [facility] y of TESTING) 04:57:00 [facility] LAB ONLY COVID 2020-10-12 [facility] of INTERPRETATION 04:57:00 [facility] CT HEAD WO CONTRAST 2020-10-12 [facility] o f 04:12:18 [facility] COMP. METABOLIC PANEL 2020-10-12 Allen, [facility] of ([id number]) 01:49:00 [facility] URINALYSIS 2020-10-12 Allen, [facility] of 01:21:00 [facility] ADC / LCC - DRUG SCREEN 2020-10-12 [facility] ty of TRIAGE 01:21:00 [facility] AMMONIA, PLASMA 2020-10-12 Allen, [facility] of 00:19:00 [facility] SALICYLATE 2020-10-12 Allen, [facility] of 00:11:00 [facility] ETHANOL 2020-10-12 Allen, [facility] of 00:11:00 [facility] NOTICE OF PRIVACY PRACTICES 2020-10-11 Doctor Unassigned, N o Emmons of 23:19:20 Name [facility] CONSENT/REFUSAL FOR 2020-10-11 Doctor Unassigned, No Univ sity of DIAGNOSIS AND TREATMENT 23:18:24 Name [facility] EXTERNAL PROVIDER RECORDS 2020-10-11 Doctor Unassigned, No University of 06:01:00 Name [facility] AGREEMENTS AUTHORIZATIONS 2020-10-11 Doctor Unassigned, No University of AND IRREVOCABLE ASSIGNMENTS 06:01:00 Name Addie gallardo [facility] (FORM 2001) Branch HOSPITAL ADMISSION 2020-10-11 Doctor Unassigned, No Univers ity of 06:01:00 Name [facility] CONSENT/REFUSAL FOR 2020-04-04 Doctor Unassigned, No Univer sity of DIAGNOSIS AND TREATMENT 14:30:46 Name [facility] URINALYSIS 2019-06-08 Chiqui Rosen [facility] 15:56:00 [facility] LIPASE 2019-06-08 Chiqui Rosen [facility] 15:40:00 [facility] HEPATIC FUNCTION PANEL 2019-06-08 Chiqui Rosen Univer sity of ([id number]) (ALB,T.PRO,BILI 15:40:00 [facility] T,BU/BC,ALT,AST,ALK PHOS) Branch BASIC METABOLIC PANEL (NA, 2019-06-08 Chiqui Rosen Un iversity of K, CL, CO2, GLUCOSE, BUN, 15:40:00 [facility]) Branch CBC WITH DIFFERENTIAL 2019-06-08 Chiqui Rosen [facility] ity of 15:40:00 [facility] NOTICE OF PRIVACY PRACTICES 2019-06-08 Doctor Unassigned, N o [facility] 14:37:20 Name [facility] CONSENT/REFUSAL FOR 2019-06-08 Doctor Unassigned, No Univer sity of DIAGNOSIS AND TREATMENT 14:37:05 [facility] Plan of Care Planned Activity Planned Date Details Comments Source Future Scheduled 2022-10-[address] [facility] Test 00:00:00 (12+) [code = [facility] DEPRESSION SCREENING (12+)] Future Scheduled 2022-10-07 FALLS RISK SCREENING [facility] Test 00:00:00 [code = FALLS RISK Medical C enter SCREENING] Future Scheduled 2022-10-[address] [facility] Test 00:00:00 (12+) [code = [facility] Center DEPRESSION SCREENING (12+)] Future Scheduled 2022-10-07 FALLS RISK SCREENING [facility] Test 00:00:00 [code = FALLS RISK Medical C enter SCREENING] Future Scheduled 2022-09-20 [facility] Test 21:40:35 SCREENING [code = BREAST CANCER SCREENING] Future Scheduled 2022-09-[address] [facility] Test 21:40:35 [code = COLONOSCOPY SCREENING] Future Scheduled 2022-09-20 SHINGLES VACCINES (1 Met [facility] Test 21:40:35 of 2) [code = SHINGLES VACCINES (1 of 2)] Future Scheduled 2022-09-20 65+ [facility]CCAL [facility] 21:40:35 VACCINE (1 - PCV) [code = 65+ PNEUMOCOCCAL VACCINE (1 - PCV)] Future Scheduled 2022-09-20 INFLUENZA VACCINE [facility] Test 21:40:35 [code = INFLUENZA VACCINE] Future Scheduled 2022-09-20 COVID-19 VACCINE (#1) [facility] 21:40:35 [code = COVID-19 VACCINE (#1)] Future Scheduled 2022-09-20 [facility] 21:40:35 (procedure) [code = 855311560] Future Scheduled 2022-09-20 [facility] Test 21:40:35 SCREENING [code = BREAST CANCER SCREENING] Future Scheduled 2022-09-20 COLONOSCOPY SCREENING [facility] Test 21:40:35 [code = COLONOSCOPY SCREENING] [...] VACCINE] Future Scheduled 2022-09-20 COVID-19 VACCINE (#1) [facility] Test 21:40:35 [code = COVID-19 VACCINE (#1)] Future Scheduled 2022-09-20 Hepatitis C screening [facility] Test 21:40:35 (procedure) [code = 098077919] Future Scheduled 2022-06-07 INFLUENZA VACCINE (#1) [facility]00 [code = INFLUENZA Medical Ce nter VACCINE (#1)] Future Scheduled 2022-06-07 INFLUENZA VACCINE (#1) [facility] 00:00:00 [code = INFLUENZA Medical Ce nter VACCINE (#1)] Future Scheduled 2020 PNEUMOCOCCAL 65+ YRS [facility] Test 00:00:00 (1 - PCV) [code = Medical Ce nter PNEUMOCOCCAL 65+ YRS (1 - PCV)] Future Scheduled 2020 PNEUMOCOCCAL 65+ YRS [facility] Test 00:00:00 (1 - PCV) [code = Medical Ce nter PNEUMOCOCCAL 65+ YRS (1 - PCV)] Future Scheduled 2005 SHINGLES VACCINES ([address] [facility] Test 00:00:00 of 2) [code = SHINGLES Medic al Center VACCINES (1 of 2)] Future Scheduled 2005 SHINGLES VACCINES ([address] [facility] Test 00:00:00 of 2) [code = SHINGLES Medic al Center VACCINES (1 of 2)] Future Scheduled 1974 DTAP/TDAP/TD VACCINES [facility] 00:00:00 (1 - Tdap) [code = Medical C enter DTAP/TDAP/TD VACCINES (1 - Tdap)] Future Scheduled 1974 DTAP/TDAP/TD [facility]ACCINES [facility] 00:00:00 (1 - Tdap) [code = Medical C enter DTAP/TDAP/TD VACCINES (1 - Tdap)] Future Scheduled 1973 HE[facility]ITIS C [facility]CRE[facility] 00:00[facility]00 [code = HEPATITIS C Medical Center SCREENING] Future Scheduled 1973 HEPATITIS C [facility] 00:00:00 [code = HEPATITIS C Medical Center SCREENING] Future Scheduled [address] [facility] Test 00:00:00 Counseling and Medical Cente r Screening (12+) [code = Tobacco Cessation Counseling and Screening (12+)] Future Scheduled [address] [facility] Test 00:00:00 [facility] Medical Cente r Screening (12+) [code = Tobacco Cessation Counseling and Screening (12+)] Future Scheduled 1956-01-04 COVID-19 VACCINE (#1) [facility] 00:00:00 [code = COVID-[address] VACCINE (#1)] Future Scheduled 1956-01-04 COVID-19 VACCINE (#1) [facility] 00:00:00 [code = COVID-[address] VACCINE (#1)] Future Scheduled [address] [facility] Test 00:00:00 malignant neoplasm of Medica l Center breast (procedure) [code = 890704513] Future Scheduled [address] [facility] 00:00:00 (combo) [code = CT Medical C enter Colonography (combo)] Future Scheduled [address] [facility] Test 00:00:00 malignant neoplasm of Medica l Center colon (procedure) [code = 908737906] Future Scheduled [address] [facility] Test 00:00:00 malignant neoplasm of Medica l Center colon (procedure) [code = 791927490] Future Scheduled 1955 DXA SCAN [code = DXA [facility] Test 00:00:00 SCAN] [facility] Future Scheduled [address] [facility] Test 00:00:00 malignant neoplasm of Medica l Center colon (procedure) [code = 593482752] Future Scheduled [address] [facility] Test 00:00:00 malignant neoplasm of Medica l Center colon (procedure) [code = 687864753] Future Scheduled 1955 Sigmoidoscopy [facility]code [facility]oscopy[facility] Future Scheduled [address] [facility] Test 00:00:00 malignant neoplasm of Medica l Center breast (procedure) [code = 740399017] Future Scheduled [address] [facility] 00:00:00 (combo) [code = CT Medical C enter Colonography (combo)] Future Scheduled [address] Test 00:00:00 malignant neoplasm of Medica l Center colon (procedure) [code = 794027345] Future Scheduled [address] Test 00:00:00 malignant neoplasm of Medica l Center colon (procedure) [code = 272559073] Future Scheduled 1955 DXA SCAN [code = DXA [facility] Test 00:00:00 SCAN] [facility] Future Scheduled [address] [facility] Test 00:00:00 malignant neoplasm of Medica l Center colon (procedure) [code = 982230755] Future Scheduled [address] [facility] Test 00:00:00 [facility] colon (procedure) [code = 715444710] Future Scheduled 1955 Sigmoidoscopy [code = CH I Jennabeth Test 00:00:00 Sigmoidoscopy] Medical Cente r Encounters Start End Encounter Admission Attending Care Care Encounter Source Date/Time Date/Time Type Type Clinicians Facility Department ID 2022-01-31 Outpatient [facility] [id number] [place] 13:14:07 [id number] [facility] 2022-12-25 2022-12-25 [facility] [id number] 00:00:00 00:00:[address] [facility] 2022-12-04 2022-12-06 [facility] [id number] [place] 06:05:00 21:25:00 RAE [facility] 2022-12-05 2022-12-[address] [facility] [id number] 00:00:00 00:00:00 Only [facility] 2022-12-05 2022-12-05 [id number] 00:00:00 00:00:00 Only [facility] 2022-12-04 2022-12-04 Outpatient [facility] [id number] 00:00:00 00:00:00 [facility] 2022-12-04 2022-12-04 Outpatient [facility] [id number] 00:00:00 00:00:00 [facility] 2022-09-25 2022-09-25 Ambulatory [facility] MNA [id number] [facility]oria 17:00:00 17:00:00 Pre-Reg Neurology 00 l Adeline Lopez 2022-09-25 2022-09-25 Ambulatory [facility] MNA [id number] [facility] 17:00:00 17:00:00 Pre-Reg Neurology 00 l Adeline Lopez 2022-09-25 2022-09-25 Outpatient [facility]IE MHIE [id number] [facility] 11:00:00 11:00:00 00 amanda Lopez 2022-09-25 2022-09-25 Outpatient DAHLIA Najera [id number] 11:00:00 11:00:00 Joe Alexis 2022-08-27 2022-08-27 Transition LES Salomon [id number] Univers 00:00:00 00:00:00 of Care Santa MUKHERJEE [id number] it y [facility] [id number] [facility] [phone] [facility] 403 Branch 2022-08-18 2022-08-24 Outpatient X JOCELYNE [facility] [id number] Univers 11:15:00 20:10:00 DESTINEE ity [facility] 2022-08-18 2022-08-24 Emergency Yojana Max Pee PINKE 1.2.840 .114 [id number] Univers 11:15:00 20:10:00 Destinee Casanova [id number] ity [facility] [id number] Mike [id number] [facility] 099 Branch 2022-08-03 2022-08-05 Outpatient X AUGUSTUS [facility] [id number] Univers 13:48:00 16:50:00 HECTOR itander [facility] 2022-08-03 2022-08-05 Emergency Chepe Camejo [facility] [id number] Univers 13:48:00 16:50:00 Hector Coffman [id number] ity [facility] [id number] [facility] [phone] [facility] 081 Branch 2022-07-29 2022-07-30 Emergency X CHRISTINA [facility] ERT [id number] Univers 22:31:00 03:45:00 NORBERTO sorianoy [facility] 2022-07-29 2022-07-30 [facility] [id number] Univers 22:31:00 03:45:00 Norbreto DORSEY [id number] ity [facility] 4.2.7.2.686 [place] [id number] [facility] 084 Branch 2022-01-22 2022-02-01 Inpatient U ALEXI [facility] [id number] Univers 12:31:00 16:22:00 KRYSTAL ity of [facility] 2022-01-22 2022-02-01 [facility] Chiqui Rosen 1.2.84 [id number] Univers 12:31:00 16:22:00 Encounter KoreychapitoKrystal TRAMAINE 350.1.1 3.10 ity of [facility] [id number] Mike as [phone] [facility] 095 Branch 2022-02-01 2022-02-01 [facility] [id number] Univers 00:00:00 00:00:00 Krystla PRIMARY [id number] it y of [place]2.[place].2.686 [place] [id number] Mn dical 388 Branch 2022-02-01 2022-02-01 Telephone [facility] [id number] Univers 00:00:00 00:00:00 Marybeth PRIMARY [id number] it y [place] 4[place]2.7.2.[place] [id number] Mn dical 388 Branch 2022-01-30 2022-01-30 Telephone [facility] [id number] Univers 00:00:00 00:00:00 Lico PRIMARY [id number] it y of [place] 4[place]2.7.2.686 [place] [id number] Mn dical 044 Branch 2022-01-23 2022-01-23 Transition LES Espinoza [id number] Univers 00:00:00 00:00:00 of Care Bel Adin MUKHERJEE [id number] i ty of [place]2.7.2.686 [place] [id number] [facility] 403 Branch 2022-01-16 2022-01-20 [facility] [id number] Univers 15:22:00 11:35:00 RODRICK ity of [facility] 2022-01-16 2022-01-20 [facility] Norberto Trujillo [facility] 1.2.8 40.114 [id number] Univers 15:22:00 11:35:00 Encounter Rodrick Tomlinson WILLIAN [id number] 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 [id number] [facility] 080 Branch 2022-01-16 2022-01-16 Orders Doctor EDELMIRA [id number] Univers 00:00:00 00:00:00 Only Unassigned, TRAMAINE 350.1.13.10 ity of [facility] 4.2.7.2.686 Mike as [id number] [address] 2021-03-01 2021-03-01 Orders Doctor HICKEY 1.2.840.114 [id number] Univers 00:00:00 00:00:00 Only Unassigned, TRAMAINE 350.1.13.10 ity of [facility] 4.2.7.2.686 Mike as [phone] [facility] [address] [place] 2021-02-16 2021-02-16 Orders Doctor HICKEY 1.2.840.114 [id number] Univers 00:00:00 00:00:00 Only Unassigned, TRAMAINE 350.1.13.10 ity of [facility] 4.2.7.2.686 Mike as [id number] [address] 2020-11-22 2020-11-22 Orders Doctor EDELMIRA 1.2.840.114 [id number] 00:00:00 00:00:00 Only Unassigned, TRAMAINE 350.1.13.10 [facility] 4.2.7.2.686 [id number] 2020-11-22 2020-11-22 Orders Doctor EDELMIRA 1.2.840.114 [id number] Univers 00:00:00 00:00:00 Only Unassigned, TRAMAINE 350.1.13.10 ity of [facility] 4.2.7.2.686 Mike as [phone] [address] 2020-11-11 2020-11-11 Transition Les Espinoza 1.2.840.114 [id number] 00:00:00 00:00:00 of Care Bel Mukherjee 350.1.13.10 [place] 4.2.7.2.686 [phone] [id number] 2020-11-11 2020-11-11 Transition Les Espinoza 1.2.840.114 [id number] Univers 00:00:00 00:00:00 of Care Bel Mukherjee 350.1.13.10 i ty of [place]2.[place] [phone] [facility] [address] 2020-10-11 2020-11-10 Inpatient X SAMARAGerber FRANCES [facility] JOSIE [id number] Univers 17:18:00 13:18:00 ity of [facility] 2020-10-11 2020-11-10 [facility] James Allen 1.2.840.1 14 [id number] Univers 17:18:00 13:18:00 Encounter Jhonatan Lombardo Ceiba 350.1.13.10 ity of [facility] 4.2.7.2.686 [place] Jhonatan Lombardo [phone] [facility] James Allen [address] [place] Eri Otoolegerber Frances 2020-06-16 2020-06-22 Inpatient [facility] [id number] 80 [place] 00:00:00 00:00:00 MONIQUE 844 Method i 2020-04-04 2020-04-04 Emergency [facility] 1.2.840.114 [id number] Univers 09:38:30 10:05:00 Chiqui Dorsey 350.1.13.10 ity of [place]2.[place] [phone] [facility] [address] 2020-04-04 2020-04-04 Emergency X [facility] ERT [id number] Univers 09:31:00 09:31:00 ity of [facility] 2020-04-04 2020-04-04 Orders Doctor HICKEY 1.2.840.114 [id number] Univers 00:00:00 00:00:00 Only Unassigned, TRAMAINE 350.1.13.10 ity of [facility] 4.2.7.2.686 Mike as [phone] [address] 2019-12-25 2019-12-25 Nurse Rosaura Dunlap 1.2.840.114 [id number] Univers 00:00:00 00:00:00 Triage TRAMAINE 350.1.13.10 it y of HOSPITAL 4.2.7.2.686 Mike as [phone] [facility] [address] [place] 2019-06-08 2019-06-08 Emergency [facility] 1.2.840.114 [id number] Univers 09:51:07 12:07:00 Chiqui Dorsey 350.1.13.10 ity [facility] 4.2.7.2.686 [place] [facility] [phone] [address] 2019-06-08 2019-06-08 Emergency [facility] [id number] Univers 09:51:07 12:07:00 CHIQUI ity of [facility] 2019-06-08 2019-06-08 Orders Doctor HICKEY 1.2.840.114 [id number] Univers 00:00:00 00:00:00 Only Unassigned, TRAMAINE 350.1.13.10 ity of [place] [facility] 4.2.7.2.686 Mike as [phone] [address] 2012-02-14 2012-02-14 [facility] [id number] Memoria 07:25:00 13:06:00 r Medical 00 l [facility] 2012-02-14 2012-02-14 [facility] [id number] 14689 Memoria 07:25:00 13:06:00 r Medical 00 l [facility] Results Test Description Test Time Test Comments Results Result Comments Source GLUCOMETER GLUCOSE- LAB USE ONLY 2022-12-06 09:16:00 Test Item Value Reference Range Interpretation Comme nts GLUCOMETER (test code = GMG) 119 mg/dL 70-100 H CLEANED METERMeter ID: [id number] tor: [id number] HANK LUCIO GLUCOMETER GLUCOSE- LAB USE [id number] 09:15:00 Test Item Value Reference Range Interpretation Comments GLUCOMETER (test code = 102 mg/dL 70-100 H Mete r ID: GMG) [id number] tor: [id number] JOURNEY W ILCOX GLUCOMETER GLUCOSE- LAB USE [id number] 09:14:00 Test Item Value Reference Range Interpretation Comments GLUCOMETER (test code = 173 mg/dL 70-100 H Mete r ID: GMG) [id number] tor: JOURNEY W ILCOX GLUCOMETER GLUCOSE- LAB USE [id number] 09:13:00 Test Item Value Reference Range Interpretation Comments GLUCOMETER (test code = 94 mg/dL 70-100 Mete r ID: GMG) [id number] tor: JOURNEY W ILCOX GLUCOMETER GLUCOSE- LAB USE [id number] 09:13:00 Test Item Value Reference Range Interpretation Comments GLUCOMETER (test code = 95 mg/dL 70-100 Mete r ID: GMG) [id number] tor: [id number] FREEMAN MEHUL MON CBC WITH MORPHOLOGY *WW*2022-12-06 [...] mg/dL 8.3-10.6 L 09D) BASIC METABOLIC PANEL *[facility]2022-12-05 06:53:00 Test Item Value Reference Range Interpretation [...] 8.7 mg/dL 8.3-10.6 09D) CBC (INCLUDES AUTOMATED DIFFERENTIAL)*[id number] 06:32:00 Test Item Value Reference Range Interpretation [...] mg/dL 8.3-10.6 09D) GLUCOMETER GLUCOSE- LAB USE [id number] 12:08:00 Test Item Value Reference Range Interpretation Comments GLUCOMETER (test code = 75 mg/dL 70-100 Mete r ID: GMG) [id number] tor: [id number] JOURNEY W ILCO SARS-CoV (RAPID ANTIGEN) WW2022-12-04 08:28:00 Test Item Value Reference Range Interpretation Comments SARS-CoV (ANTIGEN) NEGATIVE NEGATIVE (test code = COVAG) COVID AG (test This test has been code = COVAGC) marketed under the FDA Emergency Use Authorization (EUA) to meet challenges of the COVID-19 pandemic. The validation standards normally enforced by the FDA and the College of the [place] (CAP) are more stringent than those required for this test. Therefore, the result should be interpreted with caution and close attention to other clinical and epidemiological data CT HEAD W/O CONTRAST *WW*2022-12-04 05:02:26 [facility] : 1955 Sex: FExamination: Non contrast head CTIndication: Unspecified fallComparison: NoneLocation: [id number]: Multiple CT images of the brain were [...] by: Tonja García MD 12/04/2022 5:02 AM [facility] [id number] WITH MICRO *WW*2022-12-04 04:19:00 Test Item Value [...] the FDA and the College of the [employer] (CAP) are more stringent than those [...] Heparin. Order Code is ANTI-XA TROPONIN I *WW*2022-12-04 03:24:00 Test Item Value Reference Range Interpretation Comments TROPONIN I (test code = A84) 10.32 pg/mL 0.00-45.20 XR HIP RIGHT UNILATERAL 2 VIEWS*WW*2022-12-04 03:21:21 [facility] 1955 Sex: FHISTORY: Right hip painLocation: C3 FINDINGS:Images of the pelvis and right hip are provided.Mid femoral neck fracture is demonstrated with femoral shortening and slight varus angulation.IMPRESSION:1. Femoral neck fracture with femoral shortening. No dislocation.Electronically signed by: Edilberto Mayorga MD 12/04/2022 3:21AM 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 CHEST 1 VIEW PORTABLE *WW*2022-12-04 03:20:41 [facility] : 1955 Sex: FHISTORY: Presurgery evaluationLocation: C3 COMPARISON:NoneFINDINGS:Lung volumes are increased.Heart size and vascularity are within normal limits. The lungs are clear of focal consolidation. No effusion, pneumothorax,or acute osseous abnormality.IMPRESSION:1. Increased lung volumes. No focal consolidation.Electronically signed by: Edilberto Mayorga MD 12/04/2022 3:20 AM 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 (INCLUDES AUTOMATED DIFFERENTIAL)*[id number] 03:15:00 Test Item Value Reference Range Interpretation [...] Interpretation Comments POCT GLU (test code = 7005745539) 172 mg/dL 70-110 H Lab Interpretation (test code = Abnormal 43867-4) [facility]2022-08-22 02:30:58 Test Item Value Reference Range Interpretation Comments POCT GLU (test code = 0169685804) 108 mg/dL 70-110 Lab Interpretation (test code = Normal 29382-2) [facility] METABOLIC PANEL (NA, K, CL, CO2, GLUCOSE, BUN, CREATININE, CA)2022-08-21 10:33:57 Test Item Value Reference Range Interpretation Comments NA (test code = 130 mmol/L 135-145 L 2607932014) K (test code = 4.6 mmol/L 3.5-5.0 Slight 7444930138) hemolysis CL (test code = 97 mmol/L 98-108 L 8402384117) CO2 TOTAL (test code 27 mmol/L 23-31 = 6490083816) AGAP (test code = 2-16 5454070094) BUN (test code = 7 mg/dL 7-23 Slight 5594501497) hemolysis GLUCOSE (test code = 101 mg/dL 70-110 1758062782) CREATININE (test code 0.35 mg/dL 0.50-1.04 L = 1484653204) CALCIUM (test code = 8.0 mg/dL 8.6-10.6 L 1658851211) eGFR (test code = mL/min/1.73m2 9000019464) TANESHA (test code = TANESHA) Association of [...] tests). Lab Interpretation Abnormal (test code = 41909-6) [facility] (NA, K, CL, CO2, GLUCOSE, BUN, CREATININE, CA)2022-08-19 19:56:03 Test Item Value Reference Range Interpretation Comments NA (test code = 131 mmol/L 135-145 L 3963547623) K (test code = 4.2 mmol/L 3.5-5.0 7627645762) CL (test code = 94 mmol/L 98-108 L 8300724136) CO2 TOTAL (test code = 29 mmol/L 23-31 3048821867) AGAP (test code = 2-16 5683742072) BUN (test code = 2 mg/dL 7-23 L 4375823502) GLUCOSE (test code = 76 mg/dL 70-110 9146764190) CREATININE (test code = 0.42 mg/dL 0.50-1.04 L 7877121759) CALCIUM (test code = 8.6 mg/dL 8.6-10.6 1149614727) eGFR (test code = mL/min/1.73m2 6390376485) TANESHA (test code = TANESHA) Association of [...] tests). Lab Interpretation Abnormal (test code = 77014-0) [facility] TexasOSMOLALITY, SERUM OR [id number] 22:18:14 Test Item Value Reference Range Interpretation Comments OSMOLALITY (test code = See_Comment L [Au tomated message] 2692-2) The system [employer] generated this result transmitted ref erence range: 278 - 30 5 mOsm/kg. The reference range was not used to int erpret this result as normal/abnormal . Lab Interpretation (test Abnormal code = 00493-1) [facility] TexasN-TERMINAL [id number] 18:35:39 Test Item Value Reference Range Interpretation Comments NT-proBNP (test code 400 pg/mL See_Comment H [Autom ated = 1137526583) message] The system which generated this result transmitted reference range : <=125. The reference range was not used to interpret this result as normal/abnormal . TANESHA (test code = TANESHA) Biotin has been reported to cause a negative bias, interpret results relative to patient's use of biotin. Lab Interpretation Abnormal (test code = 80560-9) [facility] TexasTROPONIN [id number] 18:35:39 Test Item Value Reference Interpretation Comments Range TROPONIN I (test 0.007 ng/mL See_Comment [Automated code = 9197813097) message] The system which generated this result [...] biotin. Lab Interpretation Normal (test code = 46073-4) [facility] TexasAMMONIA, [id number] 18:33:53 Test Item Value Reference Range Interpretation Comments AMMONIA (test code = 1768524507) 9-33 L Lab Interpretation (test code = Abnormal 55573-4) [facility] TexasCOMP. METABOLIC PANEL (42742)2022-08-18 18:23:42 Test Item Value Reference Range Interpretation Comments NA (test code = 125 mmol/L 135-145 L 5669143837) K (test code = 4.2 mmol/L 3.5-5.0 Slight 4652440784) hemolysis CL (test code = 91 mmol/L 98-108 L 8479268852) CO2 TOTAL (test code 28 mmol/L 23-31 = 2934528166) AGAP (test code = 2-16 1416601585) BUN (test code = 6 mg/dL 7-23 L Slight 5576406375) hemolysis GLUCOSE (test code = 96 mg/dL 70-110 6179022009) CREATININE (test code 0.38 mg/dL 0.50-1.04 L = 9669644787) TOTAL BILI (test code 0.9 mg/dL 0.1-1.1 = 1696408071) CALCIUM (test code = 8.2 mg/dL 8.6-10.6 L 4750997058) T PROTEIN (test code 6.6 g/dL 6.3-8.2 = 2069596204) ALBUMIN (test code = 4.1 g/dL 3.5-5.0 6609726926) ALK PHOS (test code = 63 U/L 34-122 Slight 0836605388) hemolysis ALTv (test code = 18 U/L 5-35 1742-6) AST(SGOT) (test code 39 U/L 13-40 Slight = 6210328851) hemolysis eGFR (test code = mL/min/1.73m2 7342192564) TANESHA (test code = TANESHA) Association of [...] tests). Lab Interpretation Abnormal (test code = 75914-0) [facility] WITH [id number] 18:15:59 Test Item Value Reference Range Interpretation [...] RDW-SD (test code = 47.1 fL 39.0-49.9 79669-6) RDW-CV (test code = 14.0 % 12.0-15.5 788-0) PLT (test code = See_Comment [Automated 777-3) message] The sy stem which generated this result transmitted reference range : 166 - 358 10*3/ ?L. The reference r irvin was not used to interpret this result as normal/abnormal . MPV (test code = 11.9 fL 9.5-12.9 74105-6) NRBC/100 WBC (test See_Comment [Automat ed code = 6386503288) message] The system which generated this result transmitted reference range : 0.0 - 10.0 /100 WBCs. The refer ence range was not u sed to interpret th is result as normal/abnormal . NRBC x10^3 (test code See_Comment [Auto mated = 2841342919) message] The s ystem which generated this result transmitted reference range : 10*3/?L. The reference range was not used to interpret this result as normal/abnormal . GRAN MAT (NEUT) % 72.3 % (test code = 770-8) IMM GRAN % (test code 0.30 % = 4861609616) LYMPH % (test code = 17.5 % 736-9) MONO % (test code = 8.8 % 5905-5) EOS % (test code = 0.3 % 713-8) BASO % (test code = 0.8 % 706-2) GRAN MAT x10^3(ANC) 2.90 10*3/uL 1.88-7.09 (test code = 8934222967) IMM GRAN x10^3 (test 0.00-0.06 code = 1940956740) LYMPH x10^3 (test code 0.70 10*3/uL 1.32-3.29 L = 731-0) MONO x10^3 (test code 0.35 10*3/uL 0.33-0.92 = 742-7) EOS x10^3 (test code = 0.03-0.39 L 711-2) BASO x10^3 (test code 0.03 10*3/uL 0.01-0.07 = 704-7) Lab Interpretation Abnormal (test code = 54982-0) [facility] TexasGLYCOSYLATED HEMOGLOBIN (A1C)2022-08-04 04:42:34 Test Item Value Reference Range Interpretation Comments HGB A1C (test code = 5.2 % 4.0-5.7 4548-4) TANESHA (test code = TANESHA) Reference RangesNormal: <5.7%Prediabetes: 5.7 - 6.4%Diabetes: > 6.5% Lab Interpretation (test Normal code = 34956-9) [facility] TexasHEPATIC FUNCTION PANEL (84063) (ALB,T.PRO,BILI T,BU/BC,ALT,AST,ALK PHOS)2022-08-03 20:51:17 Test Item Value Reference Range Interpretation Comments TOTAL BILI (test code = 2859427525) 0.3 mg/dL 0.1-1.1 BILI UNCON (test code = 4417400844) 0.3 mg/dL 0.1-1.1 BILI CONJ (test code = 6926204264) 0.0 mg/dL 0.0-0.3 T PROTEIN (test code = 6657399833) 6.0 g/dL 6.3-8.2 L ALBUMIN (test code = 8502161694) 4.1 g/dL 3.5-5.0 ALK PHOS (test code = 9685961357) 62 U/L 34-122 ALTv (test code = 1742-6) 16 U/L 5-35 AST(SGOT) (test code = 0064918790) 27 U/L 13-40 Lab Interpretation (test code = Abnormal 65694-2) [facility] METABOLIC PANEL (NA, K, CL, CO2, GLUCOSE, BUN, CREATININE, CA)2022-08-03 20:17:28 Test Item Value Reference Range Interpretation Comments NA (test code = 126 mmol/L 135-145 L 9370614610) K (test code = 3.6 mmol/L 3.5-5.0 4752125016) CL (test code = 92 mmol/L 98-108 L 3956659391) CO2 TOTAL (test code = 24 mmol/L 23-31 1559968052) AGAP (test code = 2-16 6626313329) BUN (test code = 9 mg/dL 7-23 4371954390) GLUCOSE (test code = 101 mg/dL 70-110 5212719703) CREATININE (test code = 0.52 mg/dL 0.50-1.04 0580841519) CALCIUM (test code = 8.6 mg/dL 8.6-10.6 2300183602) eGFR (test code = mL/min/1.73m2 0686701805) TNAESHA (test code = TANESHA) Association of Glomerular [...] tests). Lab Interpretation Abnormal (test code = 74327-7) [facility] TexasLIPASE2022-10-28 20:17:28 Test Item Value Reference Range Interpretation Comments LIPASE (test code = 9354707295) 39 U/L 0-220 Lab Interpretation (test code = Normal 01862-0) [facility] TexasCREATINE [id number] 20:17:08 Test Item Value Reference Range Interpretation Comments CK (test code = 7814093570) 105 U/L 33-194 Lab Interpretation (test code = Normal 61269-4) [facility] TexasCB WITH [id number] 19:38:44 Test Item Value Reference Range Interpretation Comments WBC (test code = See_Comment [Automated 7490-2) message] The sy stem which generated this result transmitted reference range : 4.30 - 11.10 10*3/?L. The reference range was not used to interpret this result as normal/abnormal . RBC (test code = See_Comment L [Automated 389-8) message] The sy stem which generated this [...] RDW-SD (test code = 42.9 fL 39.0-49.9 10859-8) RDW-CV (test code = 13.0 % 12.0-15.5 788-0) PLT (test code = See_Comment [Automated 777-3) message] The sy stem which generated this result transmitted reference range : 166 - 358 10*3/ ?L. The reference r irvin was not used to interpret this result as normal/abnormal . MPV (test code = 11.0 fL 9.5-12.9 75904-2) NRBC/100 WBC (test See_Comment [Automat ed code = 9904001089) message] The system which generated this result transmitted reference range : 0.0 - 10.0 /100 WBCs. The refer ence range was not u sed to interpret th is result as normal/abnormal . NRBC x10^3 (test code See_Comment [Auto mated = 0909763175) message] The s ystem which generated this result transmitted reference range : 10*3/?L. The reference range was not used to interpret this result as normal/abnormal . GRAN MAT (NEUT) % 78.8 % (test code = 770-8) IMM GRAN % (test code 0.60 % = 5004463763) LYMPH % (test code = 11.7 % 736-9) MONO % (test code = 8.3 % 5905-5) EOS % (test code = 0.0 % 713-8) BASO % (test code = 0.6 % 706-2) GRAN MAT x10^3(ANC) 3.99 10*3/uL 1.88-7.09 (test code = 9801065982) IMM GRAN x10^3 (test 0.03 10*3/uL 0.00-0.06 code = 9747746426) LYMPH x10^3 (test code 0.59 10*3/uL 1.32-3.29 L = 731-0) MONO x10^3 (test code 0.42 10*3/uL 0.33-0.92 = 742-7) EOS x10^3 (test code = 0.03-0.39 L 711-2) BASO x10^3 (test code 0.03 10*3/uL 0.01-0.07 = 704-7) Lab Interpretation Abnormal (test code = 14842-7) [facility] METABOLIC PANEL (12182)2022-07-30 04:57:34 Test Item Value Reference Range Interpretation Comments NA (test code = 129 mmol/L 135-145 L 2966282712) K (test code = 4.1 mmol/L 3.5-5 0756077841) CL (test code = 93 mmol/L 98-108 L 5835329274) CO2 TOTAL (test code = 23 mmol/L 23-31 7382349564) AGAP (test code = 2-16 1994718580) BUN (test code = 8 mg/dL 7-23 3756191644) GLUCOSE (test code = 94 mg/dL 70-110 1252189721) CREATININE (test code = 0.48 mg/dL 0.5-1.04 L 5254205768) TOTAL BILI (test code = 0.5 mg/dL 0.1-1.3 2529966948) CALCIUM (test code = 9.2 mg/dL 8.6-10.6 0984448791) T PROTEIN (test code = 6.4 g/dL 6.3-8.2 5871799467) ALBUMIN (test code = 4.4 g/dL 3.5-5 5708538448) ALK PHOS (test code = 68 U/L 34-122 2646506603) ALTv (test code = 14 U/L 5-35 1742-6) AST(SGOT) (test code = 23 U/L 13-40 6146013233) eGFR (test code = mL/min/1.73m2 3952449517) TANESHA (test code = TANESHA) Association of [...] tests). Lab Interpretation Abnormal (test code = 41505-5) [facility]2022-10-24 04:56:54 Test Item Value Reference Range Interpretation Comments LIPASE (test code = 8185353459) 61 U/L 0-220 Lab Interpretation (test code = Normal 51958-7) [facility] WITH [id number] 04:44:37 Test Item Value Reference Range Interpretation Comments WBC (test code = See_Comment [Automated 5448-2) message] The sy stem which generated this result transmitted reference range : 4.30 - 11.10 10*3/?L. The reference range was not used to interpret this result as normal/abnormal . RBC (test code = See_Comment L [Automated 097-8) message] The sy stem which generated this [...] RDW-SD (test code = 43.8 fL 39-49.9 31823-3) RDW-CV (test code = 13.2 % 12-15.5 788-0) PLT (test code = See_Comment [Automated 777-3) message] The sy stem which generated this result transmitted reference range : 166 - 358 10*3/ ?L. The reference r irvin was not used to interpret this result as normal/abnormal . MPV (test code = 10.8 fL 9.5-12.9 65217-9) NRBC/100 WBC (test See_Comment [Automat ed code = 1520254059) message] The system which generated this result transmitted reference range : 0.0 - 10.0 /100 WBCs. The refer ence range was not u sed to interpret th is result as normal/abnormal . NRBC x10^3 (test code See_Comment [Auto mated = 8932781177) message] The s ystem which generated this result transmitted reference range : 10*3/?L. The reference range was not used to interpret this result as normal/abnormal . GRAN MAT (NEUT) % 72.5 % (test code = 770-8) IMM GRAN % (test code 0.40 % = 1997804335) LYMPH % (test code = 16.2 % 736-9) MONO % (test code = 10.3 % 5905-5) EOS % (test code = 0.0 % 713-8) BASO % (test code = 0.6 % 706-2) GRAN MAT x10^3(ANC) 3.81 10*3/uL 1.88-7.09 (test code = 6590173916) IMM GRAN x10^3 (test 0-0.06 code = 7843351200) LYMPH x10^3 (test code 0.85 10*3/uL 1.32-3.29 L = 731-0) MONO x10^3 (test code 0.54 10*3/uL 0.33-0.92 = 742-7) EOS x10^3 (test code = 0.03-0.39 L 711-2) BASO x10^3 (test code 0.03 10*3/uL 0.01-0.07 = 704-7) Lab Interpretation Abnormal (test code = 52371-8) [facility] CULTURE [id number] 20:01:22 Test Item Value Reference Range Interpretation Comments Blood Culture-Aerobic No organisms No growth Previo us (test code = 99323-0) isolated prelim inary verified result was Culture [...] Culture-Anaerobic isolated preliminar y (test code = 93827-0) verifi ed result was Culture In Progress [...] CDT Lab Interpretation Normal (test code = 67000-9) [facility] CULTURE [id number] 20:01:22 Test Item Value Reference Range Interpretation Comments Blood Culture-Aerobic No organisms No growth Previo us (test code = 24850-4) isolated prelim inary verified result was Culture [...] Culture-Anaerobic isolated preliminar y (test code = 12488-2) verifi ed result was Culture In Progress [...] CDT Lab Interpretation Normal (test code = 02759-6) [facility]ITAMIN B6, [id number] 12:40:21 Test Item Value Reference Range Interpretation Comments VIT B6 (test code = 16.8 nmol/L 20.0-125.0 L INTERPRE TIVE 76982-1) INFORMATION: Vi tamin B6 (Pyridoxal 5-Phosphate) Pyridoxal 5'-phosphate me asured in a specimen collected follo wing an 8-hour or overnight fast accurately josh cates vitamin B6 nutritional sta tus. Non-fasting spe cimen concentration reflects recent vitamin intake. This test was develo ped and its perform ance characteristics determined by [facility]. I t has not been cleare d or approved by the [place] Food and Drug Administration. This test was perfor med in a CLIA certifie d laboratory and is intended for cl inical purposes.Perfor med By: Wan Shidao management[address] [place] [id number] Director: Sherry Murillo MD Lab Interpretation Abnormal (test code = 43997-8) [facility] TexasCBC WITH [id number] 11:34:15 Test Item Value Reference Range Interpretation Comments WBC (test code = See_Comment L [Automated 9390-2) message] The sy stem which generated this [...] RDW-SD (test code = 46.2 fL 39.0-49.9 50806-9) RDW-CV (test code = 13.5 % 12.0-15.5 788-0) PLT (test code = See_Comment [Automated 777-3) message] The sy stem which generated this result transmitted reference range : 166 - 358 10*3/ ?L. The reference r irvin was not used to interpret this result as normal/abnormal . MPV (test code = 12.2 fL 9.5-12.9 89384-7) NRBC/100 WBC (test See_Comment [Automat ed code = 1598450933) message] The system which generated this result transmitted reference range : 0.0 - 10.0 /100 WBCs. The refer ence range was not u sed to interpret th is result as normal/abnormal . NRBC x10^3 (test code <0.01 See_Comment [Auto mated = 6428162630) message] The s ystem which generated this result transmitted reference range : 10*3/?L. The reference range was not used to interpret this result as normal/abnormal . GRAN MAT (NEUT) % 48.1 % (test code = 770-8) IMM GRAN % (test code 0.30 % = 4822682648) LYMPH % (test code = 30.1 % 736-9) MONO % (test code = 14.9 % 5905-5) EOS % (test code = 5.0 % 713-8) BASO % (test code = 1.6 % 706-2) GRAN MAT x10^3(ANC) 1.55 10*3/uL 1.88-7.09 L (test code = 3258505774) IMM GRAN x10^3 (test <0.03 0.00-0.06 code = 2769728629) LYMPH x10^3 (test code 0.97 10*3/uL 1.32-3.29 L = 731-0) MONO x10^3 (test code 0.48 10*3/uL 0.33-0.92 = 742-7) EOS x10^3 (test code = 0.16 10*3/uL 0.03-0.39 711-2) BASO x10^3 (test code 0.05 10*3/uL 0.01-0.07 = 704-7) Lab Interpretation Abnormal (test code = 74730-8) [facility] Test Item Value Reference Range Interpretation Comments MAGNESIUM (test code = 2369628855) 1.8 mg/dL 1.7-2.4 Lab Interpretation (test code = Normal 14733-0) [facility] METABOLIC PANEL (NA, K, CL, CO2, GLUCOSE, BUN, CREATININE, CA)2022-01-29 11:25:32 Test Item Value Reference Range Interpretation Comments NA (test code = 138 mmol/L 135-145 [id number]) K (test code = 3.3 mmol/L 3.5-5.0 L 8123135282) CL (test code = 104 mmol/L 98-108 2072239597) CO2 TOTAL (test code = 30 mmol/L 23-31 3981278456) AGAP (test code = 2-16 2410163156) BUN (test code = 6 mg/dL 7-23 L 2309632901) GLUCOSE (test code = 89 mg/dL 70-110 7304916143) CREATININE (test code = 0.49 mg/dL 0.50-1.04 L 7300154633) CALCIUM (test code = 8.6 mg/dL 8.6-10.6 9715719914) eGFR (test code = mL/min/1.73m2 0774612346) TANESHA (test code = TANESHA) Association of [...] tests). Lab Interpretation Abnormal (test code = 19581-1) [facility], [id number] 17:02:55 Test Item Value Reference Range Interpretation [...] its performance wen racteristics determined by A [facility]. I t has not been cleared or approved by the [place] Food and Drug Administration. This test was performed i n a CLIA certified labor atory and is intended for cl inical purposes.Perfor med By: Wan [facility] management[address] [place] [address] [id number] Director: Sherry Murillo MD [facility], [id number] 17:02:54 Test Item Value Reference Range Interpretation [...] i ts performance characteristics determined by [facility]. I t has not been cleared or approved by the [place] Food and Drug Administration. This test was performed i n a CLIA certified labor atory and is intended for clinical purposes.Perfor med By: [facility] [address] [place], [place] [address]T aboratory Director: Sherry Murillo MD [facility] TexasVITAMIN B1 (THIAMINE), WHOLE [id number] 16:54:01 Test Item Value Reference Range Interpretation Comments Vitamin B1, Whole 142 nmol/L 70-180 INTERPRETI VE INFORMATION: Blood (test code = Vitamin B 1, Whole Blood 00084-6) This assay jessica ures the concentration o [...] is intended for clinical purposes.Perfor med By: [facility] [address] [place], [place] [address]Y aboratory Director: Sherry Murillo MD [facility] (NA, K, CL, CO2, GLUCOSE, BUN, CREATININE, CA)2022-01-27 11:09:42 Test Item Value Reference Range Interpretation Comments NA (test code = 136 mmol/L 135-145 4469117446) K (test code = 3.9 mmol/L 3.5-5.0 Slight 6233102608) hemolysis CL (test code = 103 mmol/L 98-108 5163657467) CO2 TOTAL (test code 28 mmol/L 23-31 = 3682226463) AGAP (test code = 2-16 4935323631) BUN (test code = 12 mg/dL 7-23 Slight 9612754514) hemolysis GLUCOSE (test code = 94 mg/dL 70-110 8854402676) CREATININE (test code 0.40 mg/dL 0.50-1.04 L = 9585317183) CALCIUM (test code = 8.3 mg/dL 8.6-10.6 L 6991159841) eGFR (test code = mL/min/1.73m2 2287707890) TANESHA (test code = TANESHA) Association of [...] tests). Lab Interpretation Abnormal (test code = 25303-5) [facility]2022-04-23 11:09:42 Test Item Value Reference Range Interpretation Comments MAGNESIUM (test code = 2269632291) 1.9 mg/dL 1.7-2.4 Lab Interpretation (test code = Normal 95648-9) [facility] WITH [id number] 10:50:15 Test Item Value Reference Range Interpretation [...] RDW-SD (test code = 47.3 fL 39.0-49.9 85013-8) RDW-CV (test code = 13.6 % 12.0-15.5 788-0) PLT (test code = See_Comment [Automated 777-3) message] The sy stem which generated this result transmitted reference range : 166 - 358 10*3/ ?L. The reference r irvin was not used to interpret this result as normal/abnormal . MPV (test code = 11.9 fL 9.5-12.9 56779-7) NRBC/100 WBC (test See_Comment [Automat ed code = 5858540970) message] The system which generated this result transmitted reference range : 0.0 - 10.0 /100 WBCs. The refer ence range was not u sed to interpret th is result as normal/abnormal . NRBC x10^3 (test code <0.01 See_Comment [Auto mated = 2060502511) message] The s ystem which generated this result transmitted reference range : 10*3/?L. The reference range was not used to interpret this result as normal/abnormal . GRAN MAT (NEUT) % 75.3 % (test code = 770-8) IMM GRAN % (test code 0.40 % = 4828147438) LYMPH % (test code = 12.2 % 736-9) MONO % (test code = 9.0 % 5905-5) EOS % (test code = 2.4 % 713-8) BASO % (test code = 0.7 % 706-2) GRAN MAT x10^3(ANC) 6.31 10*3/uL 1.88-7.09 (test code = 4085387847) IMM GRAN x10^3 (test 0.03 10*3/uL 0.00-0.06 code = 2894875759) LYMPH x10^3 (test code 1.02 10*3/uL 1.32-3.29 L = 731-0) MONO x10^3 (test code 0.75 10*3/uL 0.33-0.92 = 742-7) EOS x10^3 (test code = 0.20 10*3/uL 0.03-0.39 711-2) BASO x10^3 (test code 0.06 10*3/uL 0.01-0.07 = 704-7) Lab Interpretation Abnormal (test code = 52177-2) [facility] [id number] 19:44:37 Test Item Value Reference Range Interpretation Comments Blood Culture Staphylococcus For suscepti bility Workup (test epidermidis results, refer to code = 600-7) culture # - [id number] anism identified by Phil Mitchell is a corrected resul t. ?Previous resul t was Coagulase negat annetta Staphylococcus on 01/24/2022 at 14 58 CDT Gram stain Isolated from aerobic (test code = bottle Gram positive 664-3) cocci [facility] TexasBlood Culture - Peripheral # [id number] 14:02:36 Test Item Value Reference Range Interpretation Comments Blood Culture-Aerobic No organisms No growth Previo us (test code = 46373-3) isolated prelim inary verified result was Culture In Progress on 01/22/2022 at 17 01 CDTPrevious preliminary verified result was No growth a t 24 hours on 01/24/2022 at 10 53 CDT Blood Culture positive. No growth AA Previous Culture-Anaerobic See Blood Culture preli minary (test code = 29569-8) Workup for verifi ed result additional was Culture In information. Progress on 01/22/2022 at 17 01 CDTPrevious preliminary verified result was No growth a t 24 hours on 01/23/2022 at 14 01 CDT Lab Interpretation Abnormal (test code = 95532-8) [facility]ERULOPLASMIN2022-04-21 15:05:49 Test Item Value Reference Range Interpretation Comments CERULO (test code = 5697389244) 37 mg/dL 25-63 Lab Interpretation (test code = Normal 48594-9) [facility] (NA, K, CL, CO2, GLUCOSE, BUN, CREATININE, CA)2022-01-25 09:07:05 Test Item Value Reference Range Interpretation Comments NA (test code = 135 mmol/L 135-145 4477080658) K (test code = 4.1 mmol/L 3.5-5.0 4684966627) CL (test code = 104 mmol/L 98-108 8553785492) CO2 TOTAL (test code = 30 mmol/L 23-31 3447647037) AGAP (test code = 2-16 L 0834181979) BUN (test code = 12 mg/dL 7-23 5776889050) GLUCOSE (test code = 86 mg/dL 70-110 9903917040) CREATININE (test code = 0.45 mg/dL 0.50-1.04 L 4852192987) CALCIUM (test code = 8.5 mg/dL 8.6-10.6 L 1017636466) eGFR (test code = mL/min/1.73m2 2680977140) TANESHA (test code = TANESHA) Association of [...] tests). Lab Interpretation Abnormal (test code = 51877-8) [facility]2022-04-21 09:03:44 Test Item Value Reference Range Interpretation Comments MAGNESIUM (test code = 2645105771) 2.0 mg/dL 1.7-2.4 Lab Interpretation (test code = Normal 98196-9) [facility] TexasVITAMIN B12, [id number] 01:27:16 Test Item Value Reference Range Interpretation Comments VIT B12 (test code = 497 pg/mL 240-930 7994297980) TANESHA (test code = TANESHA) Biotin has been reported to cause a positive bias, interpret results relative to patient's use of biotin. Lab Interpretation (test Normal code = 84554-6) [facility]2022-04-21 01:27:16 Test Item Value Reference Range Interpretation Comments FOLATE SER (test code = 4684004700) 8.5 ng/mL 3.0-20.0 Lab Interpretation (test code = Normal 35265-7) [facility] - Peripheral # 19:58:22 Test Item Value Reference Range Interpretation Comments Blood Culture-Aerobic Culture positive. No growth AA P revious (test code = 21727-5) See Blood Culture p reliminary Workup for verified result additional was Culture In information. Progress on 01/22/2022 at 17 01 CDT Blood No organisms No growth Previous Culture-Anaerobic isolated preliminar y (test code = 92235-6) verifi ed result was Culture In Progress on 01/22/2022 at 17 01 CDT Lab Interpretation Abnormal (test code = 16409-7) [facility] WITH [id number] 10:29:00 Test Item Value Reference Range Interpretation Comments WBC (test code = See_Comment L [Automated 6690-2) message] The sy stem which generated this result transmitted reference range : 4.30 - 11.10 10*3/?L. The reference range was not used to interpret this result as normal/abnormal . RBC (test code = See_Comment L [Automated 959-8) message] The sy stem which generated this [...] RDW-SD (test code = 46.2 fL 39.0-49.9 70814-9) RDW-CV (test code = 13.2 % 12.0-15.5 788-0) PLT (test code = See_Comment [Automated 777-3) message] The sy stem which generated this result transmitted reference range : 166 - 358 10*3/ ?L. The reference r irvin was not used to interpret this result as normal/abnormal . MPV (test code = 11.7 fL 9.5-12.9 06404-9) NRBC/100 WBC (test See_Comment [Automat ed code = 9188035916) message] The system which generated this result transmitted reference range : 0.0 - 10.0 /100 WBCs. The refer ence range was not u sed to interpret th is result as normal/abnormal . NRBC x10^3 (test code <0.01 See_Comment [Auto mated = 6122920752) message] The s ystem which generated this result transmitted reference range : 10*3/?L. The reference range was not used to interpret this result as normal/abnormal . GRAN MAT (NEUT) % 43.0 % (test code = 770-8) IMM GRAN % (test code 0.30 % = 6339063823) LYMPH % (test code = 33.3 % 736-9) MONO % (test code = 10.5 % 5905-5) EOS % (test code = 11.4 % 713-8) BASO % (test code = 1.5 % 706-2) GRAN MAT x10^3(ANC) 1.43 10*3/uL 1.88-7.09 L (test code = 0645128051) IMM GRAN x10^3 (test <0.03 0.00-0.06 code = 6379598516) LYMPH x10^3 (test code 1.11 10*3/uL 1.32-3.29 L = 731-0) MONO x10^3 (test code 0.35 10*3/uL 0.33-0.92 = 742-7) EOS x10^3 (test code = 0.38 10*3/uL 0.03-0.39 711-2) BASO x10^3 (test code 0.05 10*3/uL 0.01-0.07 = 704-7) Lab Interpretation Abnormal (test code = 47654-3) [facility] METABOLIC PANEL (NA, K, CL, CO2, GLUCOSE, BUN, CREATININE, CA)2022-01-24 10:23:02 Test Item Value Reference Range Interpretation Comments NA (test code = 133 mmol/L 135-145 L 8121483293) K (test code = 3.2 mmol/L 3.5-5.0 L 7342154932) CL (test code = 101 mmol/L 98-108 8452894235) CO2 TOTAL (test code = 29 mmol/L 23-31 8098664644) AGAP (test code = 2-16 4098048415) BUN (test code = 8 mg/dL 7-23 9538926607) GLUCOSE (test code = 83 mg/dL 70-110 8573318239) CREATININE (test code = 0.41 mg/dL 0.50-1.04 L 7840909524) CALCIUM (test code = 8.5 mg/dL 8.6-10.6 L 5266804951) eGFR (test code = mL/min/1.73m2 0411525597) TANESHA (test code = TNAESHA) Association of Glomerular Filtration Rate (GFR) and [...] tests). Lab Interpretation Abnormal (test code = 86305-9) [facility]2022-04-20 10:23:02 Test Item Value Reference Range Interpretation Comments MAGNESIUM (test code = 7331645679) 2.0 mg/dL 1.7-2.4 Lab Interpretation (test code = Normal 90409-4) [facility] TexasGRAM POSITIVE BLOOD PATHOGENS DNA [id number] 03:06:21 Test Item Value Reference Range Interpretation Comments Coagulase Negative Positive Negative, See A Staphylococcus (test Comment/Narrative code = 63512-2) TANESHA (test code = TANESHA) Coagulase negative [...] contact the Antimicrobial Stewardship Program with questions.Pager: ?[phone] Testing included eleven identification and three resistance marker targets. Lab Interpretation Abnormal (test code = 35497-3) [facility] TexasSEDIMENTATION [id number] 03:34:51 Test Item Value Reference Range Interpretation Comments ESR (test code = See_Comment [Automated message] 0891345149) The system [employer] generated this result transmitted ref erence range: 0 - 20 m m/HR. The reference r irvin was not used to interpret this result as normal/abnor mal. Lab Interpretation (test Normal code = 79850-4) [facility] TexasTROPONIN [id number] 23:55:36 Test Item Value Reference Interpretation Comments Range TROPONIN I (test 0.003 ng/mL See_Comment [Automated code = 9149825076) message] The system which generated this result [...] biotin. Lab Interpretation Normal (test code = 89906-1) [facility] WITH [id number] 19:21:01 Test Item Value Reference Range Interpretation Comments WBC (test code = See_Comment L [Automated 8062-2) message] The sy stem which generated this result transmitted reference range : 4.30 - 11.10 10*3/?L. The reference range was not used to interpret this result as normal/abnormal . RBC (test code = See_Comment L [Automated 403-8) message] The sy stem which generated this [...] RDW-SD (test code = 47.9 fL 39.0-49.9 58376-0) RDW-CV (test code = 13.5 % 12.0-15.5 788-0) PLT (test code = See_Comment [Automated 777-3) message] The sy stem which generated this result transmitted reference range : 166 - 358 10*3/ ?L. The reference r irvin was not used to interpret this result as normal/abnormal . MPV (test code = 12.5 fL 9.5-12.9 80580-9) NRBC/100 WBC (test See_Comment [Automat ed code = 4945793270) message] The system which generated this result transmitted reference range : 0.0 - 10.0 /100 WBCs. The refer ence range was not u sed to interpret th is result as normal/abnormal . NRBC x10^3 (test code <0.01 See_Comment [Auto mated = 1270330264) message] The s ystem which generated this result transmitted reference range : 10*3/?L. The reference range was not used to interpret this result as normal/abnormal . GRAN MAT (NEUT) % 54.8 % (test code = 770-8) IMM GRAN % (test code 0.50 % = 4405681455) LYMPH % (test code = 28.8 % 736-9) MONO % (test code = 10.7 % 5905-5) EOS % (test code = 4.1 % 713-8) BASO % (test code = 1.1 % 706-2) GRAN MAT x10^3(ANC) 1.99 10*3/uL 1.88-7.09 (test code = 1551952497) IMM GRAN x10^3 (test <0.03 0.00-0.06 code = 8266893309) LYMPH x10^3 (test code 1.05 10*3/uL 1.32-3.29 L = 731-0) MONO x10^3 (test code 0.39 10*3/uL 0.33-0.92 = 742-7) EOS x10^3 (test code = 0.15 10*3/uL 0.03-0.39 711-2) BASO x10^3 (test code 0.04 10*3/uL 0.01-0.07 = 704-7) Lab Interpretation Abnormal (test code = 22138-1) [facility] TexasCOMP. METABOLIC PANEL ([id number])2022-01-22 18:52:48 Test Item Value Reference Range Interpretation Comments NA (test code = 138 mmol/L 135-145 7234350772) K (test code = 4.0 mmol/L 3.5-5.0 7558026403) CL (test code = 100 mmol/L 98-108 4724571357) CO2 TOTAL (test code = 31 mmol/L 23-31 2952538659) AGAP (test code = 2-16 9528686294) BUN (test code = 17 mg/dL 7-23 4206153272) GLUCOSE (test code = 96 mg/dL 70-110 9496838719) CREATININE (test code = 0.43 mg/dL 0.50-1.04 L 9417112992) TOTAL BILI (test code = 0.4 mg/dL 0.1-1.4 9176085600) CALCIUM (test code = 8.7 mg/dL 8.6-10.6 7761631599) T PROTEIN (test code = 6.6 g/dL 6.3-8.2 9890841250) ALBUMIN (test code = 4.4 g/dL 3.5-5.0 9874118886) ALK PHOS (test code = 77 U/L 34-122 0070380885) ALTv (test code = 17 U/L 5-35 1742-6) AST(SGOT) (test code = 42 U/L 13-40 H 6314156223) eGFR (test code = mL/min/1.73m2 2600625794) TANESHA (test code = TANESHA) Association of [...] tests). Lab Interpretation Abnormal (test code = 57427-1) [facility]2022-04-18 18:52:48 Test Item Value Reference Range Interpretation Comments MAGNESIUM (test code = 7053815328) 2.0 mg/dL 1.7-2.4 Lab Interpretation (test code = Normal 65476-2) [facility] WITH [id number] 14:02:35 Test Item Value Reference Range Interpretation [...] RDW-SD (test code = 46.5 fL 39.0-49.9 87350-1) RDW-CV (test code = 13.3 % 12.0-15.5 788-0) PLT (test code = See_Comment [Automated 777-3) message] The sy stem which generated this result transmitted reference range : 166 - 358 10*3/ ?L. The reference r irvin was not used to interpret this result as normal/abnormal . MPV (test code = 12.3 fL 9.5-12.9 18315-8) NRBC/100 WBC (test See_Comment [Automat ed code = 9201233097) message] The system which generated this result transmitted reference range : 0.0 - 10.0 /100 WBCs. The refer ence range was not u sed to interpret th is result as normal/abnormal . NRBC x10^3 (test code <0.01 See_Comment [Auto mated = 3415274235) message] The s ystem which generated this result transmitted reference range : 10*3/?L. The reference range was not used to interpret this result as normal/abnormal . GRAN MAT (NEUT) % 39.0 % (test code = 770-8) IMM GRAN % (test code 0.30 % = 9403679865) LYMPH % (test code = 37.7 % 736-9) MONO % (test code = 11.2 % 5905-5) EOS % (test code = 10.7 % 713-8) BASO % (test code = 1.1 % 706-2) GRAN MAT x10^3(ANC) 1.43 10*3/uL 1.88-7.09 L (test code = 0018371056) IMM GRAN x10^3 (test <0.03 0.00-0.06 code = 6122736096) LYMPH x10^3 (test code 1.38 10*3/uL 1.32-3.29 = 731-0) MONO x10^3 (test code 0.41 10*3/uL 0.33-0.92 = 742-7) EOS x10^3 (test code = 0.39 10*3/uL 0.03-0.39 711-2) BASO x10^3 (test code 0.04 10*3/uL 0.01-0.07 = 704-7) Lab Interpretation Abnormal (test code = 40323-5) [facility]. METABOLIC PANEL (43520)2022-01-19 12:13:22 Test Item Value Reference Range Interpretation Comments NA (test code = 133 mmol/L 135-145 L 0184740650) K (test code = 3.8 mmol/L 3.5-5.0 7495707839) CL (test code = 99 mmol/L 98-108 7072429646) CO2 TOTAL (test code = 25 mmol/L 23-31 9264709221) AGAP (test code = 2-16 8661920496) BUN (test code = 9 mg/dL 7-23 8022155470) GLUCOSE (test code = 82 mg/dL 70-110 7023528833) CREATININE (test code = 0.46 mg/dL 0.50-1.04 L 3280374252) TOTAL BILI (test code = 0.8 mg/dL 0.1-1.9 3327117031) CALCIUM (test code = 8.5 mg/dL 8.6-10.6 L 9191390926) T PROTEIN (test code = 6.3 g/dL 6.3-8.2 5481646099) ALBUMIN (test code = 3.8 g/dL 3.5-5.0 3715681455) ALK PHOS (test code = 71 U/L 34-122 3588740214) ALTv (test code = 13 U/L 5-35 1742-6) AST(SGOT) (test code = 34 U/L 13-40 8667196924) eGFR (test code = mL/min/1.73m2 7755345419) TANESHA (test code = TANESHA) Association of [...] tests). Lab Interpretation Abnormal (test code = 99384-8) [facility] OR FIDE ONLY - [id number] 06:44:05 Test Item Value Reference Range Interpretation Comments RPR (Qualitative) (test code = Nonreactive Nonreactive 09352-9) Lab Interpretation (test code = Normal 61094-8) [facility] OR FIDE SHIRA - [id number] 06:43:50 Test Item Value Reference Range Interpretation Comments RPR (Qualitative) (test code = Nonreactive Nonreactive 26306-9) Lab Interpretation (test code = Normal 20534-7) [facility] GLUCOSE (AUTOMATED)2022-01-17 22:09:50 Test Item Value Reference Range Interpretation Comments POCT GLU (test code = 8579770353) 141 mg/dL 70-110 H Lab Interpretation (test code = Abnormal 20833-9) [facility]2022-[facility]13 19:07:46 Test Item Value Reference Range Interpretation Comments FOLATE SER (test code = 13.0 ng/mL 3.0-20.0 Slig ht hemolysis 7800573279) Lab Interpretation (test Normal code = 82078-4) [facility] GLUCOSE (AUTOMATED)2022-01-17 16:44:49 Test Item Value Reference Range Interpretation Comments POCT GLU (test code = 3010208891) 155 mg/dL 70-110 H Lab Interpretation (test code = Abnormal 67061-3) [facility]VIT[facility]IN B12, [id number] 16:23:50 Test Item Value Reference Range Interpretation Comments VIT B12 (test code = 611 pg/mL 240-930 4861057842) TANESHA (test code = TANESHA) Biotin has been reported to cause a positive bias, interpret results relative to patient's use of biotin. Lab Interpretation (test Normal code = 40442-4) [facility] GLUCOSE (AUTOMATED)2022-01-17 13:06:35 Test Item Value Reference Range Interpretation Comments POCT GLU (test code = 3705374440) 74 mg/dL 70-110 Lab Interpretation (test code = Normal 22210-0) [facility] TexasTHYROID STIMULATING [id number] 12:43:02 Test Item Value Reference Range Interpretation Comments TSH (test code = See_Comment Biotin has been 1295199772) reported to cau se a negative bias, interpret resul ts relative to pat ient's use of biotin. [Automated mess age] The system [employer] generated this result transmitted ref erence range: 0.45 - 4 .70 mIU/L. The refe rence range was not u sed to interpret this result as normal/abnor mal. Lab Interpretation (test Normal code = 68446-9) [facility] TexasFR [id number] 12:28:41 Test Item Value Reference Range Interpretation Comments FREE T4 (test code = See_Comment [Autom ated message] 9795905328) The system [employer] generated this result transmitted ref erence range: 0.78 - 2 .20 ng/dL:. The ref erence range was not u sed to interpret this result as normal/abnor mal. Lab Interpretation (test Normal code = 74418-5) [facility] TexasCBC with [id number] 12:25:00 Test Item Value Reference Range Interpretation Comments WBC (test code = See_Comment L [Automated 2790-2) message] The sy stem which generated this result transmitted reference range : 4.30 - 11.10 10*3/?L. The reference range was not used to interpret this result as normal/abnormal . RBC (test code = See_Comment L [Automated 049-8) message] The sy stem which generated this [...] RDW-SD (test code = 46.0 fL 39.0-49.9 59773-6) RDW-CV (test code = 13.2 % 12.0-15.5 788-0) PLT (test code = See_Comment [Automated 777-3) message] The sy stem which generated this result transmitted reference range : 166 - 358 10*3/ ?L. The reference r irvin was not used to interpret this result as normal/abnormal . MPV (test code = 12.9 fL 9.5-12.9 07515-7) NRBC/100 WBC (test See_Comment [Automat ed code = 4659766970) message] The system which generated this result transmitted reference range : 0.0 - 10.0 /100 WBCs. The refer ence range was not u sed to interpret th is result as normal/abnormal . NRBC x10^3 (test code <0.01 See_Comment [Auto mated = 5604902160) message] The s ystem which generated this result transmitted reference range : 10*3/?L. The reference range was not used to interpret this result as normal/abnormal . GRAN MAT (NEUT) % 46.6 % (test code = 770-8) IMM GRAN % (test code 0.30 % = 9330975781) LYMPH % (test code = 32.0 % 736-9) MONO % (test code = 12.2 % 5905-5) EOS % (test code = 7.4 % 713-8) BASO % (test code = 1.5 % 706-2) GRAN MAT x10^3(ANC) 1.84 10*3/uL 1.88-7.09 L (test code = 3974168967) IMM GRAN x10^3 (test <0.03 0.00-0.06 code = 9454187365) LYMPH x10^3 (test code 1.26 10*3/uL 1.32-3.29 L = 731-0) MONO x10^3 (test code 0.48 10*3/uL 0.33-0.92 = 742-7) EOS x10^3 (test code = 0.29 10*3/uL 0.03-0.39 711-2) BASO x10^3 (test code 0.06 10*3/uL 0.01-0.07 = 704-7) Lab Interpretation Abnormal (test code = 00701-2) [facility] Metabolic Panel (NA, K, CL, CO2, GLUCOSE, BUN, CREATININE, CA)2022-01-17 12:18:02 Test Item Value Reference Range Interpretation Comments NA (test code = 137 mmol/L 135-145 1641274460) K (test code = 3.8 mmol/L 3.5-5.0 2059377349) CL (test code = 99 mmol/L 98-108 7382413797) CO2 TOTAL (test code = 28 mmol/L 23-31 0779499930) AGAP (test code = 2-16 8851732904) BUN (test code = 6 mg/dL 7-23 L 2680700307) GLUCOSE (test code = 68 mg/dL 70-110 L 0189685763) CREATININE (test code = 0.44 mg/dL 0.50-1.04 L 9624772735) CALCIUM (test code = 8.8 mg/dL 8.6-10.6 3280921497) eGFR (test code = mL/min/1.73m2 4164492621) TANESHA (test code = TANESHA) Association of [...] tests). Lab Interpretation Abnormal (test code = 66464-9) [facility] TexasMagnesium [id number] 12:18:02 Test Item Value Reference Range Interpretation Comments MAGNESIUM (test code = 6491701718) 1.9 mg/dL 1.7-2.4 Lab Interpretation (test code = Normal 17640-1) [facility] TexasPhosphorus [id number] 12:04:57 Test Item Value Reference Range Interpretation Comments PHOSPHORUS (test code = 3.6 mg/dL 2.5-5.0 Slig ht hemolysis 7819377325) Lab Interpretation (test Normal code = 52267-7) [facility] [place] [id number] 23:16:40 Test Item Value Reference Interpretation Comments Range TROPONIN I (test 0.002 ng/mL See_Comment [Automated code = 0645505129) message] The system which generated this result [...] biotin. Lab Interpretation Normal (test code = 19984-8) [facility]. METABOLIC PANEL (32562)2022-01-16 22:49:37 Test Item Value Reference Range Interpretation Comments NA (test code = 135 mmol/L 135-145 4976123560) K (test code = 3.8 mmol/L 3.5-5.0 3359289216) CL (test code = 98 mmol/L 98-108 2602111092) CO2 TOTAL (test code 30 mmol/L 23-31 = 3687420436) AGAP (test code = 2-16 6751125351) BUN (test code = 9 mg/dL 7-23 3406794312) GLUCOSE (test code = 92 mg/dL 70-110 6404995637) CREATININE (test code 0.54 mg/dL 0.50-1.04 = 2774039119) TOTAL BILI (test code 0.4 mg/dL 0.1-1.1 = 5910247249) CALCIUM (test code = 8.8 mg/dL 8.6-10.6 4641293189) T PROTEIN (test code 6.8 g/dL 6.3-8.2 = 7039787129) ALBUMIN (test code = 4.4 g/dL 3.5-5.0 6070958850) ALK PHOS (test code = 108 U/L 34-122 8866422626) ALTv (test code = 15 U/L 5-35 1742-6) AST(SGOT) (test code 31 U/L 13-40 = 0095421732) eGFR (test code = mL/min/1.73m2 6674772636) TANESHA (test code = TANESHA) Association of [...] or urine or abnormalities in imaging tests). [facility] [place]PROT[place] [facility] / [id number] 22:02:38 Test Item Value Reference Range Interpretation [...] tions. Lab Interpretation (test Normal code = 38941-8) [facility] WITH [id number] 21:52:15 Test Item Value Reference Range Interpretation Comments WBC (test code = See_Comment L [Automated 6690-2) message] The sy stem which generated this result transmitted reference range : 4.30 - 11.10 10*3/?L. The reference range was not used to interpret this result as normal/abnormal . RBC (test code = See_Comment [Automated 789-8) message] The sy stem which [...] RDW-SD (test code = 47.3 fL 39.0-49.9 58772-7) RDW-CV (test code = 13.2 % 12.0-15.5 788-0) PLT (test code = See_Comment [Automated 777-3) message] The sy stem which generated this result transmitted reference range : 166 - 358 10*3/ ?L. The reference r irvin was not used to interpret this result as normal/abnormal . MPV (test code = 12.4 fL 9.5-12.9 55305-4) NRBC/100 WBC (test See_Comment [Automat ed code = 6040842404) message] The system which generated this result transmitted reference range : 0.0 - 10.0 /100 WBCs. The refer ence range was not u sed to interpret th is result as normal/abnormal . NRBC x10^3 (test code <0.01 See_Comment [Auto mated = 5930748343) message] The s ystem which generated this result transmitted reference range : 10*3/?L. The reference range was not used to interpret this result as normal/abnormal . GRAN MAT (NEUT) % 59.4 % (test code = 770-8) IMM GRAN % (test code 0.30 % = 0355255464) LYMPH % (test code = 25.1 % 736-9) MONO % (test code = 12.1 % 5905-5) EOS % (test code = 1.7 % 713-8) BASO % (test code = 1.4 % 706-2) GRAN MAT x10^3(ANC) 2.06 10*3/uL 1.88-7.09 (test code = 7727804164) IMM GRAN x10^3 (test <0.03 0.00-0.06 code = 6474252914) LYMPH x10^3 (test code 0.87 10*3/uL 1.32-3.29 L = 731-0) MONO x10^3 (test code 0.42 10*3/uL 0.33-0.92 = 742-7) EOS x10^3 (test code = 0.06 10*3/uL 0.03-0.39 711-2) BASO x10^3 (test code 0.05 10*3/uL 0.01-0.07 = 704-7) Lab Interpretation Abnormal (test code = 83271-9) [facility] [place]COVID[facility] (ID NOW RAPID TESTING)2020-11-10 00:57:00 Test Item Value Reference Range Interpretation Comments SARS-CoV-2 Rapid ID NOW Not Detected Not Detected (test code = 48019-6) TANESHA (test code = TANESHA) ID NOW COVID-19 Assay is an isothermal nucleic acid amplification test intended for the qualitative detection of nucleic acid from SARS-CoV-2 viral RNA in nasopharyngeal (WAREHOUSE RECORD CLERK) specimens. It is used under Emergency Use [...] indicated. Lab Interpretation Normal (test code = 26354-1) [facility] METABOLIC PANEL (NA, K, CL, CO2, GLUCOSE, BUN, CREATININE, CA)2020-11-09 11:06:00 Test Item Value Reference Range Interpretation Comments NA (test code = 134 mmol/L 135-145 L 5562154534) K (test code = 4.2 mmol/L 3.5-5 8925542470) CL (test code = 99 mmol/L 98-108 3498056414) CO2 TOTAL (test code = 30 mmol/L 23-31 7523140902) AGAP (test code = 2-16 8170568645) BUN (test code = 11 mg/dL 7-23 9529141270) GLUCOSE (test code = 95 mg/dL 70-110 1656500524) CREATININE (test code = 0.53 mg/dL 0.5-1.04 5293699139) CALCIUM (test code = 9.6 mg/dL 8.6-10.6 9642107886) eGFR Calculation mL/min/1.73m2 (Non-) (test code = 4593387264) eGFR Calculation mL/min/1.73m2 () (test code = 6815551059) TANESHA (test code = TANESHA) Association of [...] tests). Lab Interpretation Abnormal (test code = 51170-3) [facility] WITH [id number] 10:25:00 Test Item Value Reference Range Interpretation [...] (test code = 51.8 fL 39-49.9 H 64679-9) RDW-CV (test code = 14.9 % 12-15.5 788-0) PLT (test code = See_Comment [Automated 777-3) message] The sy stem which generated this result transmitted reference range : 166 - 358 10*3/ ?L. The reference r irvin was not used to interpret this result as normal/abnormal . MPV (test code = 11.3 fL 9.5-12.9 37694-6) NRBC/100 WBC (test See_Comment [Automat ed code = 3670716967) message] The system which generated this result transmitted reference range : 0.0 - 10.0 /100 WBCs. The refer ence range was not u sed to interpret th is result as normal/abnormal . NRBC x10^3 (test code <0.01 See_Comment [Auto mated = 5317858824) message] The s ystem which generated this result transmitted reference range : 10*3/?L. The reference range was not used to interpret this result as normal/abnormal . GRAN MAT (NEUT) % 55.7 % (test code = 770-8) IMM GRAN % (test code 0.20 % = 4356067143) LYMPH % (test code = 28.3 % 736-9) MONO % (test code = 12.6 % 5905-5) EOS % (test code = 2.0 % 713-8) BASO % (test code = 1.2 % 706-2) GRAN MAT x10^3(ANC) 2.26 10*3/uL 1.88-7.09 (test code = 6036113539) IMM GRAN x10^3 (test <0.03 0-0.06 code = 6943880399) LYMPH x10^3 (test code 1.15 10*3/uL 1.32-3.29 L = 731-0) MONO x10^3 (test code 0.51 10*3/uL 0.33-0.92 = 742-7) EOS x10^3 (test code = 0.08 10*3/uL 0.03-0.39 711-2) BASO x10^3 (test code 0.05 10*3/uL 0.01-0.07 = 704-7) Lab Interpretation Abnormal (test code = 00119-8) [facility] WITH [id number] 10:47:00 Test Item Value Reference Range Interpretation Comments WBC (test code = See_Comment L [Automated 6490-2) message] The sy stem which generated this result transmitted reference range : 4.30 - 11.10 10*3/?L. The reference range was not used to interpret this result as normal/abnormal . RBC (test code = See_Comment L [Automated 719-8) message] The sy stem which generated this [...] (test code = 51.7 fL 39-49.9 H 57135-1) RDW-CV (test code = 14.7 % 12-15.5 788-0) PLT (test code = See_Comment [Automated 777-3) message] The sy stem which generated this result transmitted reference range : 166 - 358 10*3/ ?L. The reference r irvin was not used to interpret this result as normal/abnormal . MPV (test code = 11.0 fL 9.5-12.9 09894-8) NRBC/100 WBC (test See_Comment [Automat ed code = 9345787071) message] The system which generated this result transmitted reference range : 0.0 - 10.0 /100 WBCs. The refer ence range was not u sed to interpret th is result as normal/abnormal . NRBC x10^3 (test code <0.01 See_Comment [Auto mated = 5721820403) message] The s ystem which generated this result transmitted reference range : 10*3/?L. The reference range was not used to interpret this result as normal/abnormal . GRAN MAT (NEUT) % 53.7 % (test code = 770-8) IMM GRAN % (test code 0.50 % = 6867477947) LYMPH % (test code = 28.8 % 736-9) MONO % (test code = 12.9 % 5905-5) EOS % (test code = 3.0 % 713-8) BASO % (test code = 1.1 % 706-2) GRAN MAT x10^3(ANC) 1.95 10*3/uL 1.88-7.09 (test code = 8900372851) IMM GRAN x10^3 (test <0.03 0-0.06 code = 5851671941) LYMPH x10^3 (test code 1.05 10*3/uL 1.32-3.29 L = 731-0) MONO x10^3 (test code 0.47 10*3/uL 0.33-0.92 = 742-7) EOS x10^3 (test code = 0.11 10*3/uL 0.03-0.39 711-2) BASO x10^3 (test code 0.04 10*3/uL 0.01-0.07 = 704-7) Lab Interpretation Abnormal (test code = 33706-9) [facility] METABOLIC PANEL (NA, K, CL, CO2, GLUCOSE, BUN, CREATININE, CA)2020-11-07 10:42:00 Test Item Value Reference Range Interpretation Comments NA (test code = 134 mmol/L 135-145 L 4830157109) K (test code = 4.0 mmol/L 3.5-5 5996438618) CL (test code = 99 mmol/L 98-108 7819577851) CO2 TOTAL (test code = 27 mmol/L 23-31 7778684827) AGAP (test code = 2-16 1526384528) BUN (test code = 11 mg/dL 7-23 4127434822) GLUCOSE (test code = 92 mg/dL 70-110 8428316077) CREATININE (test code = 0.49 mg/dL 0.5-1.04 L 6675931947) CALCIUM (test code = 9.2 mg/dL 8.6-10.6 8331073855) eGFR Calculation mL/min/1.73m2 (Non-) (test code = 6283895961) eGFR Calculation mL/min/1.73m2 () (test code = 1261147196) TANESHA (test code = TANESHA) Association of [...] tests). Lab Interpretation Abnormal (test code = 95197-1) [facility] WITH [id number] 11:10:00 Test Item Value Reference Range Interpretation [...] (test code = 51.6 fL 39-49.9 H 10978-2) RDW-CV (test code = 15.0 % 12-15.5 788-0) PLT (test code = See_Comment [Automated 777-3) message] The sy stem which generated this result transmitted reference range : 166 - 358 10*3/ ?L. The reference r irvin was not used to interpret this result as normal/abnormal . MPV (test code = 11.4 fL 9.5-12.9 28791-1) NRBC/100 WBC (test See_Comment [Automat ed code = 1022912438) message] The system which generated this result transmitted reference range : 0.0 - 10.0 /100 WBCs. The refer ence range was not u sed to interpret th is result as normal/abnormal . NRBC x10^3 (test code <0.01 See_Comment [Auto mated = 1050628383) message] The s ystem which generated this result transmitted reference range : 10*3/?L. The reference range was not used to interpret this result as normal/abnormal . GRAN MAT (NEUT) % 55.9 % (test code = 770-8) IMM GRAN % (test code 0.60 % = 3626387643) LYMPH % (test code = 28.7 % 736-9) MONO % (test code = 12.4 % 5905-5) EOS % (test code = 1.5 % 713-8) BASO % (test code = 0.9 % 706-2) GRAN MAT x10^3(ANC) 1.89 10*3/uL 1.88-7.09 (test code = 4711827848) IMM GRAN x10^3 (test <0.03 0-0.06 code = 0551246687) LYMPH x10^3 (test code 0.97 10*3/uL 1.32-3.29 L = 731-0) MONO x10^3 (test code 0.42 10*3/uL 0.33-0.92 = 742-7) EOS x10^3 (test code = 0.05 10*3/uL 0.03-0.39 711-2) BASO x10^3 (test code 0.03 10*3/uL 0.01-0.07 = 704-7) TOXIC CHANGES (test Present A code = 803-7) Lab Interpretation Abnormal (test code = 70882-0) [facility] METABOLIC PANEL (NA, K, CL, CO2, GLUCOSE, BUN, CREATININE, CA)2020-11-05 10:35:00 Test Item Value Reference Range Interpretation Comments NA (test code = 133 mmol/L 135-145 L 7688817169) K (test code = 4.5 mmol/L 3.5-5 Slight 1552862072) hemolysis CL (test code = 99 mmol/L 98-108 7452446697) CO2 TOTAL (test code 29 mmol/L 23-31 = 5027447351) AGAP (test code = 2-16 9522609597) BUN (test code = 11 mg/dL 7-23 Slight 5596316323) hemolysis GLUCOSE (test code = 83 mg/dL 70-110 1319141322) CREATININE (test code 0.44 mg/dL 0.5-1.04 L = 6934469653) CALCIUM (test code = 9.0 mg/dL 8.6-10.6 2712008227) eGFR Calculation mL/min/1.73m2 (Non-) (test code = 1942462806) eGFR Calculation mL/min/1.73m2 () (test code = 5153859027) TANESHA (test code = TANESHA) Association of [...] tests). Lab Interpretation Abnormal (test code = 73842-5) [facility] [place]HEPAT[place] PAN[place] (48491[facility] (ALB,T.PRO,BILI T,BU/BC,ALT,AST,ALK PHOS)2020-11-05 10:35:00 Test Item Value Reference Range Interpretation Comments TOTAL BILI (test code = 1895127360) 0.6 mg/dL 0.1-1.1 BILI UNCON (test code = 5681046959) 0.2 mg/dL 0.1-1.1 BILI CONJ (test code = 2792467091) 0.0 mg/dL 0-0.3 T PROTEIN (test code = 4853152203) 7.3 g/dL 6.3-8.2 ALBUMIN (test code = 6240464976) 3.5 g/dL 3.5-5 ALK PHOS (test code = 4837391038) 94 U/L 34-122 ALTv (test code = 1742-6) 25 U/L 5-35 AST(SGOT) (test code = 8084391124) 48 U/L 13-40 H Lab Interpretation (test code = Abnormal 78714-7) [facility] TexasANTI-NUCLEAR ANTIBODY-PATHOLOGIST [id number] 04:21:00ANA - Pathologist InterpretationThe CARLOS ENRIQUE result is negative on interpretation. Norberto Pereira MD ?11/01/2020 ?10:20 PM [facility] SERVICESUnHarris [facility] HospitalCSF [id number] 13:32:00 Test Item Value Reference Range Interpretation Comments CSF CULTURE (test No organisms isolated code = 606-4) Gram stain (test code Moderate Mononuclear = 664-3) cells [facility] TexasBLOOD CULTURE [id number] 09:01:00 Test Item Value Reference Range Interpretation Comments Blood Culture-Aerobic No organisms No growth Previo us (test code = 03063-6) isolated prelim inary verified result was Culture In Progress on 10/26/2020 at 06 01 CSTPrevious preliminary verified result was No growth a t 24 hours on 10/27/2020 at 03 01 CSTPrevious preliminary verified result was No growth a t 48 hours on 10/28/2020 at 03 01 CSTPrevious preliminary verified result was No growth a t 72 hours on 10/29/2020 at 03 01 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 organisms No growth Previous Culture-Anaerobic isolated preliminar y (test code = 58648-9) verifi ed result was Culture In Progress on 10/26/2020 at 06 01 CSTPrevious preliminary verified result was No growth a t 24 hours on 10/27/2020 at 03 01 CSTPrevious preliminary verified result was No growth a t 48 hours on 10/28/2020 at 03 01 CSTPrevious preliminary verified result was No growth a t 72 hours on 10/29/2020 at 03 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 Lab Interpretation Normal (test code = 60454-5) [facility] [place]BLO[facility] CULTURE [id number] 09:01:00 Test Item Value Reference Range Interpretation Comments Blood Culture-Aerobic No organisms No growth Previo us (test code = 43556-2) isolated prelim inary verified result was Culture In Progress on 10/26/2020 at 06 01 CSTPrevious preliminary verified result was No growth a t 24 hours on 10/27/2020 at 03 01 CSTPrevious preliminary verified result was No growth a t 48 hours on 10/28/2020 at 03 01 CSTPrevious preliminary verified result was No growth a t 72 hours on 10/29/2020 at 03 01 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 organisms No growth Previous Culture-Anaerobic isolated preliminar y (test code = 69317-9) verifi ed result was Culture In Progress on 10/26/2020 at 06 01 CSTPrevious preliminary verified result was No growth a t 24 hours on 10/27/2020 at 03 01 CSTPrevious preliminary verified result was No growth a t 48 hours on 10/28/2020 at 03 01 CSTPrevious preliminary verified result was No growth a t 72 hours on 10/29/2020 at 03 01 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 Lab Interpretation Normal (test code = 23747-8) [facility] TexasBODY FLUID DIRECT [id number] 21:04:00 Test Item Value Reference Range Interpretation Comments BF COLOR (test code = Clear 3220021475) BF WBC Count (test See_Comment [Automat ed message] The code = 4181535295) system wh ich generated this result transmit carol reference range : 0 - 5 /?L. The reference r irvin was not used to interpr et this result as anoop l/abnormal. BF RBC Count (test See_Comment [Automat ed message] The code = 1493089381) system [facility] generated this result transmit carol reference range : /?L. The reference range was not used to interpr et this result as anoop l/abnormal. [facility] TexasBODY FLUID MANUAL [id number] 21:04:00 Test Item Value Reference Range Interpretation Comments BF SEGS (test code = 6292867794) 1 % 0-7 BF LYMPHS (test code = 7695874612) 21 % 28-96 L MACROPHAGE (test code = 0483029530) 9 % 16-56 L #CELS CNTD (test code = 1501829236) Lab Interpretation (test code = Abnormal 91396-9) [facility] TexasURINE [id number] 20:53:00 Test Item Value Reference Range Interpretation Comments URINE CULTURE (test >100,000 CFU/mL code = 630-4) Aerococcus urinae [facility]ROS[facility] [id number] 20:33:00 Test Item Value Reference Range Interpretation Comments GLU CSF (test code = 64 mg/dL 50-80 3047705973) UNSPUN BODY FLUID Colorless COLOR (test code = 8563864678) UNSPUN BODY FLUID Clear CLARITY (test code = 6896321340) SPUN BODY FLUID COLOR Colorless (test code = 2146975006) SPUN BODY FLUID Clear CLARITY (test code = 5021029467) Sediment (test code = The sediment volume is 5656760329) <0.1 mLs of the total fluid volume of 1.0 mLs and its color is red. [facility] HospitalROSPINAL FLUID [id number] 20:33:00 Test Item Value Reference Range Interpretation Comments T. PRO CSF (test code = 53.0 mg/dL 15-45 H 0472184359) UNSPUN BODY FLUID COLOR Colorless (test code = 2265854721) UNSPUN BODY FLUID CLARITY Clear (test code = 6391190633) SPUN BODY FLUID COLOR Colorless (test code = 8734204017) SPUN BODY FLUID CLARITY Clear (test code = 0615388954) Sediment (test code = The sediment volume 0609336296) is <0.1 mLs of the total fluid volume of 1.0 mLs and its color is red. Lab Interpretation (test Abnormal code = 00886-7) [facility] TexasMisc. Sendout- [id number] autoimmune encephalitis [id number] 18:18:00 Test Item Value Reference Range Interpretation Comments Miscellaneous Test (test See scanned report code = 8585254567) Performing Lab (test code ARUP = 6416684396) [facility] METABOLIC PANEL (NA, K, CL, CO2, GLUCOSE, BUN, CREATININE, CA)2020-10-27 12:54:00 Test Item Value Reference Range Interpretation Comments NA (test code = 136 mmol/L 135-145 0913704095) K (test code = 3.7 mmol/L 3.5-5 3040604829) CL (test code = 103 mmol/L 98-108 8114629699) CO2 TOTAL (test code = 27 mmol/L 23-31 4555409939) AGAP (test code = 2-16 9817369152) BUN (test code = 15 mg/dL 7-23 0861532835) GLUCOSE (test code = 86 mg/dL 70-110 2322359801) CREATININE (test code = 0.45 mg/dL 0.5-1.04 L 2842302101) CALCIUM (test code = 8.7 mg/dL 8.6-10.6 0720228266) eGFR Calculation mL/min/1.73m2 (Non-) (test code = 6903168142) eGFR Calculation mL/min/1.73m2 () (test code = 2158796777) TANESHA (test code = TANESHA) Association of [...] tests). Lab Interpretation Abnormal (test code = 87628-9) [facility] WITH [id number] 12:08:00 Test Item Value Reference Range Interpretation [...] (test code = 50.7 fL 39-49.9 H 48887-7) RDW-CV (test code = 14.8 % 12-15.5 788-0) PLT (test code = See_Comment [Automated 777-3) message] The sy stem which generated this result transmitted reference range : 166 - 358 10*3/ ?L. The reference r irvin was not used to interpret this result as normal/abnormal . MPV (test code = 11.3 fL 9.5-12.9 74885-3) NRBC/100 WBC (test See_Comment [Automat ed code = 9726564221) message] The system which generated this result transmitted reference range : 0.0 - 10.0 /100 WBCs. The refer ence range was not u sed to interpret th is result as normal/abnormal . NRBC x10^3 (test code <0.01 See_Comment [Auto mated = 3938261322) message] The s ystem which generated this result transmitted reference range : 10*3/?L. The reference range was not used to interpret this result as normal/abnormal . GRAN MAT (NEUT) % 76.2 % (test code = 770-8) IMM GRAN % (test code 0.40 % = 2420960238) LYMPH % (test code = 13.7 % 736-9) MONO % (test code = 8.4 % 5905-5) EOS % (test code = 0.9 % 713-8) BASO % (test code = 0.4 % 706-2) GRAN MAT x10^3(ANC) 4.18 10*3/uL 1.88-7.09 (test code = 2381296900) IMM GRAN x10^3 (test <0.03 0-0.06 code = 2554280001) LYMPH x10^3 (test code 0.75 10*3/uL 1.32-3.29 L = 731-0) MONO x10^3 (test code 0.46 10*3/uL 0.33-0.92 = 742-7) EOS x10^3 (test code = 0.05 10*3/uL 0.03-0.39 711-2) BASO x10^3 (test code <0.03 0.01-0.07 = 704-7) Lab Interpretation Abnormal (test code = 89144-2) [facility] GLUCOSE (AUTOMATED)2020-10-27 02:27:00 Test Item Value Reference Range Interpretation Comments POCT GLU (test code = 1003271254) 97 mg/dL 70-110 Lab Interpretation (test code = Normal 78292-0) [facility] [place]LAB ONLY COVID [id number] 23:29:00COVID DMT InterpretationInterpretation/Recommendations: Molecular NAAT Tests for [...] COVID-19 testing the patient has had at [facility], including molecular NAAT testing (more commonly known as PCR testing and Rapid ID Now testing) and antibody testing. It does not take into account any testing that a patient hashad outside of the [facility] medical record. [facility] LABORATORY SERVICESCOVID [id number]-3 Rapid ID NOW(no units) ? ? Date ? Value ? 10/26/2020 ? Not Detected ? ? ? 10/11/2020 ? Not Detected ? [facility] [place] CT CHEST PULMONARY [id number] 21:51:22 1. No evidence of acute or [...] of the breasts are within normal limits. [facility] [[email or web address]], Radiant Results Inft User - 10/26/2020 3:52 [...] have reviewed this study andagree with theabove report.[facility] TexasCOVID-19 (ID NOW RAPID TESTING)2020-10-26 20:17:00 Test Item Value Reference Range Interpretation Comments SARS-CoV-2 Rapid ID NOW Not Detected Not Detected (test code = 25317-0) TANESHA (test code = TANESHA) ID NOW COVID-19 Assay is an isothermal nucleic acid amplification test intended for the qualitative detection of nucleic acid from SARS-CoV-2 viral RNA in nasopharyngeal (WAREHOUSE RECORD CLERK) specimens. It is used under Emergency Use [...] indicated. Lab Interpretation Normal (test code = 85619-4) [facility] TexasMR BRAIN W WO [id number] 19:11:48 No acute intracranial abnormality. Preliminary Report [...] reviewed this study and agree with the abovereport.[facility] TexasXR CHEST 1 [id number] 15:47:30EXAM: XR CHEST 1 VW HISTORY: Fever [...] are clear otherwise. The heartand great vessels arenormal.[facility] TexasD-[id number] 11:22:00 Test Item Value Reference Interpretation Comments Range D-DIMER (test code = See_Comment H [Autom ated 3517294516) message] The system which generated this result [...] diagnosis. Lab Interpretation Abnormal (test code = 83106-0) [facility] TexasURINALYSIS2021-01-20 09:07:00 Test Item Value Reference Range Interpretation Comments APPEARANCE (test code = Cloudy Clear A 1968645647) COLOR (test code = Yellow Yellow 3253308600) PH (test code = 4.8-8.0 3083487975) SP GRAVITY (test code = 1.003-1.030 1678981987) GLU U QUAL (test code = Normal Normal 2735481608) BLOOD (test code = Negative Negative 7571672206) KETONES (test code = Negative Negative 9708998865) PROTEIN (test code = Negative Negative 2887-8) UROBILIN (test code = Normal Normal 1432885429) BILIRUBIN (test code = Negative Negative 3833656379) NITRITE (test code = Negative Negative 8627549074) LEUK EDINSON (test code = Negative Negative 8862975291) RBC/HPF (test code = See_Comment [Autom ated message] 0716567186) The system [employer] generated this result transmitted ref erence range: 0 - 3 HP F. The reference range was not used to int erpret this result as normal/abnormal . WBC/HPF (test code = See_Comment [Autom ated message] 2372555032) The system [employer] generated this result transmitted ref erence range: 0 - 5 HP F. The reference range was not used to int erpret this result as normal/abnormal . BACTERIA (test code = Negative Negative 1698913622) AMORPHOUS (test code = Moderate Rare HPF A 3342240481) ASCORBIC ACID (test code Negative = 0872996661) Lab Interpretation (test Abnormal code = 68725-3) [facility] METABOLIC PANEL (NA, K, CL, CO2, GLUCOSE, BUN, CREATININE, CA)2020-10-26 08:22:00 Test Item Value Reference Range Interpretation Comments NA (test code = 134 mmol/L 135-145 L 3995090487) K (test code = 4.0 mmol/L 3.5-5 2252892899) CL (test code = 100 mmol/L 98-108 4162459920) CO2 TOTAL (test code = 28 mmol/L 23-31 4588359772) AGAP (test code = 2-16 2080132990) BUN (test code = 16 mg/dL 7-23 0876534724) GLUCOSE (test code = 157 mg/dL 70-110 H 4593978627) CREATININE (test code = 0.57 mg/dL 0.5-1.04 8012401922) CALCIUM (test code = 9.2 mg/dL 8.6-10.6 0788184370) eGFR Calculation mL/min/1.73m2 (Non-) (test code = 3590298193) eGFR Calculation mL/min/1.73m2 () (test code = 3611456922) TANESHA (test code = TANESHA) Association of [...] tests). Lab Interpretation Abnormal (test code = 35947-4) [facility] 08[facility]22:00 Test Item Value Reference Range Interpretation Comments MAGNESIUM (test code = 1757166762) 1.8 mg/dL 1.7-2.4 Lab Interpretation (test code = Normal 25917-3) [facility] (NA, K, CL, CO2, GLUCOSE, BUN, CREATININE, CA)2020-10-25 11:09:00 Test Item Value Reference Range Interpretation Comments NA (test code = 135 mmol/L 135-145 9651949397) K (test code = 4.1 mmol/L 3.5-5 9614682706) CL (test code = 102 mmol/L 98-108 6401982328) CO2 TOTAL (test code = 30 mmol/L 23-31 8973684981) AGAP (test code = 2-16 8766337061) BUN (test code = 9 mg/dL 7-23 9501973935) GLUCOSE (test code = 94 mg/dL 70-110 9260594456) CREATININE (test code = 0.42 mg/dL 0.5-1.04 L 6319334566) CALCIUM (test code = 8.6 mg/dL 8.6-10.6 1609596737) eGFR Calculation mL/min/1.73m2 (Non-) (test code = 7810886471) eGFR Calculation mL/min/1.73m2 () (test code = 7390690352) TANESHA (test code = TANESHA) Association of [...] tests). Lab Interpretation Abnormal (test code = 59560-7) [facility]19 11:09:00 Test Item Value Reference Range Interpretation Comments MAGNESIUM (test code = 8088358703) 1.8 mg/dL 1.7-2.4 Lab Interpretation (test code = Normal 61046-5) [facility] WITH [id number] 11:00:00 Test Item Value Reference Range Interpretation Comments WBC (test code = See_Comment [Automated 1490-2) message] The sy stem which generated this [...] RDW-SD (test code = 48.7 fL 39-49.9 55676-0) RDW-CV (test code = 14.3 % 12-15.5 788-0) PLT (test code = See_Comment [Automated 777-3) message] The sy stem which generated this result transmitted reference range : 166 - 358 10*3/ ?L. The reference r irvin was not used to interpret this result as normal/abnormal . MPV (test code = 11.3 fL 9.5-12.9 81370-0) NRBC/100 WBC (test See_Comment [Automat ed code = 0242420994) message] The system which generated this result transmitted reference range : 0.0 - 10.0 /100 WBCs. The refer ence range was not u sed to interpret th is result as normal/abnormal . NRBC x10^3 (test code <0.01 See_Comment [Auto mated = 9352523387) message] The s ystem which generated this result transmitted reference range : 10*3/?L. The reference range was not used to interpret this result as normal/abnormal . GRAN MAT (NEUT) % 77.5 % (test code = 770-8) IMM GRAN % (test code 0.50 % = 3203358505) LYMPH % (test code = 10.3 % 736-9) MONO % (test code = 9.9 % 5905-5) EOS % (test code = 1.3 % 713-8) BASO % (test code = 0.5 % 706-2) GRAN MAT x10^3(ANC) 4.76 10*3/uL 1.88-7.09 (test code = 9423272855) IMM GRAN x10^3 (test 0.03 10*3/uL 0-0.06 code = 2270511030) LYMPH x10^3 (test code 0.63 10*3/uL 1.32-3.29 L = 731-0) MONO x10^3 (test code 0.61 10*3/uL 0.33-0.92 = 742-7) EOS x10^3 (test code = 0.08 10*3/uL 0.03-0.39 711-2) BASO x10^3 (test code 0.03 10*3/uL 0.01-0.07 = 704-7) Lab Interpretation Abnormal (test code = 67102-5) [facility] [id number] 20:53:00 Test Item Value Reference Range Interpretation Comments FREE T4 (test code = See_Comment [Autom ated message] 7393439231) The system [employer] generated this result transmitted ref erence range: 0.78 - 2 .20 ng/dL:. The ref erence range was not u sed to interpret this result as normal/abnor mal. Lab Interpretation (test Normal code = 85739-6) [facility] Texas[facility]YROID STIMULATING [id number] 17:22:00 Test Item Value Reference Range Interpretation Comments TSH (test code = See_Comment Biotin has been 4352526020) reported to cau se a negative bias, interpret resul ts relative to pat yasmeen's use of biotin. [Automated mess age] The system [employer] generated this result transmitted ref erence range: 0.45 - 4 .70 mIU/L. The refe rence range was not u sed to interpret this result as normal/abnor mal. Lab Interpretation (test Normal code = 50380-8) [facility] METABOLIC PANEL (NA, K, CL, CO2, GLUCOSE, BUN, CREATININE, CA)2020-10-24 09:56:00 Test Item Value Reference Range Interpretation Comments NA (test code = 135 mmol/L 135-145 7969394557) K (test code = 3.5 mmol/L 3.5-5 2887669950) CL (test code = 104 mmol/L 98-108 2874138808) CO2 TOTAL (test code = 28 mmol/L 23-31 3141952519) AGAP (test code = 2-16 6099151176) BUN (test code = 12 mg/dL 7-23 6761063962) GLUCOSE (test code = 96 mg/dL 70-110 6217697380) CREATININE (test code = 0.42 mg/dL 0.5-1.04 L 6734017680) CALCIUM (test code = 8.6 mg/dL 8.6-10.6 5375337623) eGFR Calculation mL/min/1.73m2 (Non-) (test code = 5060374646) eGFR Calculation mL/min/1.73m2 () (test code = 7237589383) TANESHA (test code = TANESHA) Association of [...] tests). Lab Interpretation Abnormal (test code = 51694-0) [facility]18 09:56:00 Test Item Value Reference Range Interpretation Comments MAGNESIUM (test code = 2977989881) 1.8 mg/dL 1.7-2.4 Lab Interpretation (test code = Normal 57624-9) [facility] WITH [id number] 09:35:00 Test Item Value Reference Range Interpretation [...] RDW-SD (test code = 47.4 fL 39-49.9 36851-3) RDW-CV (test code = 14.0 % 12-15.5 788-0) PLT (test code = See_Comment [Automated 777-3) message] The sy stem which generated this result transmitted reference range : 166 - 358 10*3/ ?L. The reference r irvin was not used to interpret this result as normal/abnormal . MPV (test code = 11.1 fL 9.5-12.9 34042-3) NRBC/100 WBC (test See_Comment [Automat ed code = 5707884953) message] The system which generated this result transmitted reference range : 0.0 - 10.0 /100 WBCs. The refer ence range was not u sed to interpret th is result as normal/abnormal . NRBC x10^3 (test code <0.01 See_Comment [Auto mated = 4407574035) message] The s ystem which generated this result transmitted reference range : 10*3/?L. The reference range was not used to interpret this result as normal/abnormal . GRAN MAT (NEUT) % 64.9 % (test code = 770-8) IMM GRAN % (test code 0.30 % = 4749499302) LYMPH % (test code = 16.2 % 736-9) MONO % (test code = 16.2 % 5905-5) EOS % (test code = 2.1 % 713-8) BASO % (test code = 0.3 % 706-2) GRAN MAT x10^3(ANC) 2.20 10*3/uL 1.88-7.09 (test code = 2989359928) IMM GRAN x10^3 (test <0.03 0-0.06 code = 2228216557) LYMPH x10^3 (test code 0.55 10*3/uL 1.32-3.29 L = 731-0) MONO x10^3 (test code 0.55 10*3/uL 0.33-0.92 = 742-7) EOS x10^3 (test code = 0.07 10*3/uL 0.03-0.39 711-2) BASO x10^3 (test code <0.03 0.01-0.07 = 704-7) Lab Interpretation Abnormal (test code = 26213-3) [facility] [id number] 00:01:00 Test Item Value Reference Range Interpretation Comments Blood Culture-Aerobic No organisms No growth Previo us (test code = 43416-1) isolated prelim inary verified result was Culture In Progress on 10/17/2020 at 21 01 CSTPrevious preliminary verified result was No growth a t 24 hours on 10/18/2020 at 18 01 CSTPrevious preliminary verified result was No growth a t 48 hours on 10/19/2020 at 18 01 CSTPrevious preliminary verified result was No growth a t 72 hours on 10/20/2020 at 18 01 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 organisms No growth Previous Culture-Anaerobic isolated preliminar y (test code = 19706-3) verifi ed result was Culture In Progress on 10/17/2020 at 21 01 CSTPrevious preliminary verified result was No growth a t 24 hours on 10/18/2020 at 18 01 CSTPrevious preliminary verified result was No growth a t 48 hours on 10/19/2020 at 18 01 CSTPrevious preliminary verified result was No growth a t 72 hours on 10/20/2020 at 18 01 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 Lab Interpretation Normal (test code = 97905-1) [facility] [id number] 22:01:00 Test Item Value Reference Range Interpretation Comments Blood Culture-Aerobic No organisms No growth Previo us (test code = 88827-4) isolated prelim inary verified result was Culture In Progress on 10/17/2020 at 19 01 CSTPrevious preliminary verified result was No growth a t 24 hours on 10/18/2020 at 16 01 CSTPrevious preliminary verified result was No growth a t 48 hours on 10/19/2020 at 16 01 CSTPrevious preliminary verified result was No growth a t 72 hours on 10/20/2020 at 16 01 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 organisms No growth Previous Culture-Anaerobic isolated preliminar y (test code = 08168-3) verifi ed result was Culture In Progress on 10/17/2020 at 19 01 CSTPrevious preliminary verified result was No growth a t 24 hours on 10/18/2020 at 16 01 CSTPrevious preliminary verified result was No growth a t 48 hours on 10/19/2020 at 16 01 CSTPrevious preliminary verified result was No growth a t 72 hours on 10/20/2020 at 16 01 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42 mg/dL 0.5-1.04 L 2168209067) CALCIUM (test code = 8.4 mg/dL 8.6-10.6 L 5366348548) eGFR Calculation mL/min/1.73m2 (Non-) (test code = 9457138548) eGFR Calculation mL/min/1.73m2 () (test code = 5751454883) TANESHA (test code = TANESHA) Association of [...] tests). Lab Interpretation Abnormal (test code = 14489-3) [facility] WITH [id number] 10:59:00 Test Item Value Reference Range Interpretation [...] RDW-SD (test code = 46.3 fL 39-49.9 49302-3) RDW-CV (test code = 13.7 % 12-15.5 788-0) PLT (test code = See_Comment [Automated 777-3) message] The sy stem which generated this result transmitted reference range : 166 - 358 10*3/ ?L. The reference r irvin was not used to interpret this result as normal/abnormal . MPV (test code = 11.7 fL 9.5-12.9 11061-2) NRBC/100 WBC (test See_Comment [Automat ed code = 2261912855) message] The system which generated this result transmitted reference range : 0.0 - 10.0 /100 WBCs. The refer ence range was not u sed to interpret th is result as normal/abnormal . NRBC x10^3 (test code <0.01 See_Comment [Auto mated = 6935613212) message] The s ystem which generated this result transmitted reference range : 10*3/?L. The reference range was not used to interpret this result as normal/abnormal . GRAN MAT (NEUT) % 60.1 % (test code = 770-8) IMM GRAN % (test code 0.60 % = 1732295038) LYMPH % (test code = 18.2 % 736-9) MONO % (test code = 18.2 % 5905-5) EOS % (test code = 2.0 % 713-8) BASO % (test code = 0.9 % 706-2) GRAN MAT x10^3(ANC) 2.12 10*3/uL 1.88-7.09 (test code = 5101621411) IMM GRAN x10^3 (test <0.03 0-0.06 code = 5592533607) LYMPH x10^3 (test code 0.64 10*3/uL 1.32-3.29 L = 731-0) MONO x10^3 (test code 0.64 10*3/uL 0.33-0.92 = 742-7) EOS x10^3 (test code = 0.07 10*3/uL 0.03-0.39 711-2) BASO x10^3 (test code 0.03 10*3/uL 0.01-0.07 = 704-7) Lab Interpretation Abnormal (test code = 42738-7) [facility] [id number] 16:40:00 Test Item Value Reference Range Interpretation Comments CSF CULTURE (test No organisms isolated code = 606-4) Gram stain (test code Occasional (Rare) = 664-3) Mononuclear cells [facility]. Sendout- Meningtis Panel [facility] [id number] 2020-10-21 13:57:00 Test Item Value Reference Range Interpretation Comments Miscellaneous Test (test See scanned report code = 3597661175) Performing Lab (test code [facility] = 0281073123) [facility]. Sendout- Paraneoplastic panel [facility] [id number] 13:15:00 Test Item Value Reference Range Interpretation Comments Miscellaneous Test (test See scanned report code = 4242610120) Performing Lab (test code [facility] = 5206734375) [facility] Test Item Value Reference Range Interpretation Comments MAGNESIUM (test code = 0830956104) 1.6 mg/dL 1.7-2.4 L Lab Interpretation (test code = Abnormal 61959-7) [facility] (NA, K, CL, CO2, GLUCOSE, BUN, CREATININE, CA)2020-10-21 11:27:00 Test Item Value Reference Range Interpretation Comments NA (test code = 133 mmol/L 135-145 L 1007809237) K (test code = 3.5 mmol/L 3.5-5 3606540418) CL (test code = 103 mmol/L 98-108 8845860447) CO2 TOTAL (test code = 24 mmol/L 23-31 8085459117) AGAP (test code = 2-16 1036160065) BUN (test code = 10 mg/dL 7-23 0733720016) GLUCOSE (test code = 90 mg/dL 70-110 8285483930) CREATININE (test code = 0.39 mg/dL 0.5-1.04 L 8677814778) CALCIUM (test code = 7.8 mg/dL 8.6-10.6 L 1090967344) eGFR Calculation mL/min/1.73m2 (Non-) (test code = 5078644542) eGFR Calculation mL/min/1.73m2 () (test code = 7467571950) TANESHA (test code = TANESHA) Association of [...] tests). Lab Interpretation Abnormal (test code = 99357-7) [facility] WITH [id number] 11:22:00 Test Item Value Reference Range Interpretation [...] RDW-SD (test code = 46.9 fL 39-49.9 95925-9) RDW-CV (test code = 13.6 % 12-15.5 788-0) PLT (test code = See_Comment [Automated 777-3) message] The sy stem which generated this result transmitted reference range : 166 - 358 10*3/ ?L. The reference r irvin was not used to interpret this result as normal/abnormal . MPV (test code = 11.6 fL 9.5-12.9 33268-2) NRBC/100 WBC (test See_Comment [Automat ed code = 5440476824) message] The system which generated this result transmitted reference range : 0.0 - 10.0 /100 WBCs. The refer ence range was not u sed to interpret th is result as normal/abnormal . NRBC x10^3 (test code <0.01 See_Comment [Auto mated = 7628348416) message] The s ystem which generated this result transmitted reference range : 10*3/?L. The reference range was not used to interpret this result as normal/abnormal . GRAN MAT (NEUT) % 58.6 % (test code = 770-8) IMM GRAN % (test code 0.30 % = 2226380936) LYMPH % (test code = 21.8 % 736-9) MONO % (test code = 17.3 % 5905-5) EOS % (test code = 1.0 % 713-8) BASO % (test code = 1.0 % 706-2) GRAN MAT x10^3(ANC) 1.80 10*3/uL 1.88-7.09 L (test code = 2259934821) IMM GRAN x10^3 (test <0.03 0-0.06 code = 6394496789) LYMPH x10^3 (test code 0.67 10*3/uL 1.32-3.29 L = 731-0) MONO x10^3 (test code 0.53 10*3/uL 0.33-0.92 = 742-7) EOS x10^3 (test code = 0.03 10*3/uL 0.03-0.39 711-2) BASO x10^3 (test code 0.03 10*3/uL 0.01-0.07 = 704-7) TOXIC CHANGES (test Present A code = 803-7) Lab Interpretation Abnormal (test code = 38277-5) [facility] TexasNEUTROPHIL CYTOPLASMIC AB, [id number] 18:19:00 Test Item Value Reference Range Interpretation Comments ANCA TITER (test code <1:20 See_Comment The AN CA IFA is <1:20; = 22061-1) therefore, no f urther testing will be [...] or arthritis.Pe rformed By: [facility] [address] [place], [place] [address]Iffxwmr ory Director: Sherry Murillo MD [Automated m essage] The system which ge nerated this result transmit carol reference range : <1:20. The reference range was not used to interpr et this result as anoop l/abnormal. [facility] Sendout- Paraneoplastic CSF [facility] [id number] 2020-10-20 17:36:00 Test Item Value Reference Range Interpretation Comments Miscellaneous Test (test See scanned report code = 2111016477) Performing Lab (test code [facility] = 9216835231) [facility] TexasHEPAT[facility] FUNCTION PANEL (69484) (ALB,T.PRO,BILI T,BU/BC,ALT,AST,ALK PHOS)2020-10-20 15:53:00 Test Item Value Reference Range Interpretation Comments TOTAL BILI (test code = 8903019664) 0.2 mg/dL 0.1-1.1 BILI UNCON (test code = 5318195952) 0.2 mg/dL 0.1-1.1 BILI CONJ (test code = 7349374977) 0.0 mg/dL 0-0.3 T PROTEIN (test code = 0121151337) 7.4 g/dL 6.3-8.2 ALBUMIN (test code = 1998102088) 2.9 g/dL 3.5-5 L ALK PHOS (test code = 3795191726) 87 U/L 34-122 ALTv (test code = 1742-6) 38 U/L 5-35 H AST(SGOT) (test code = 2730364840) 64 U/L 13-40 H Lab Interpretation (test code = Abnormal 54031-4) [facility] WITH [id number] 11:27:00 Test Item Value Reference Range Interpretation Comments WBC (test code = See_Comment L [Automated 3690-2) message] The sy stem which [...] RDW-SD (test code = 45.2 fL 39-49.9 74308-9) RDW-CV (test code = 13.5 % 12-15.5 788-0) PLT (test code = See_Comment [Automated 777-3) message] The sy stem which generated this result transmitted reference range : 166 - 358 10*3/ ?L. The reference r irvin was not used to interpret this result as normal/abnormal . MPV (test code = 11.3 fL 9.5-12.9 37745-6) NRBC/100 WBC (test See_Comment [Automat ed code = 0747900798) message] The system which generated this result transmitted reference range : 0.0 - 10.0 /100 WBCs. The refer ence range was not u sed to interpret th is result as normal/abnormal . NRBC x10^3 (test code <0.01 See_Comment [Auto mated = 3942671506) message] The s ystem which generated this result transmitted reference range : 10*3/?L. The reference range was not used to interpret this result as normal/abnormal . GRAN MAT (NEUT) % 62.2 % (test code = 770-8) IMM GRAN % (test code 0.30 % = 5247113236) LYMPH % (test code = 17.4 % 736-9) MONO % (test code = 17.7 % 5905-5) EOS % (test code = 1.7 % 713-8) BASO % (test code = 0.7 % 706-2) GRAN MAT x10^3(ANC) 1.79 10*3/uL 1.88-7.09 L (test code = 5125729391) IMM GRAN x10^3 (test <0.03 0-0.06 code = 9510771010) LYMPH x10^3 (test code 0.50 10*3/uL 1.32-3.29 L = 731-0) MONO x10^3 (test code 0.51 10*3/uL 0.33-0.92 = 742-7) EOS x10^3 (test code = 0.05 10*3/uL 0.03-0.39 711-2) BASO x10^3 (test code <0.03 0.01-0.07 = 704-7) BASO STIPPLING (test Present A code = 703-9) Lab Interpretation Abnormal (test code = 41514-8) [facility] TexasFAN [id number] 11:16:00 Test Item Value Reference Range Interpretation Comments TROPONIN I (test 0.003 ng/mL See_Comment [Automated code = 4644962436) message] The system which generated this result transmitted reference range : <=0.034. The reference range was not used to interpret this result as normal/abnormal . TANESHA (test code = Equal or Less than TANSEHA) 0.034 ng/ml---Normal ?Note: Cardiac troponin begins to [...] ? Lab Interpretation Normal (test code = 90037-4) [facility] TexasPROTHROMBIN TIME / [id number] 11:04:00 Test Item Value Reference Range Interpretation Comments PROTIME PATIENT (test See_Comment [Auto mated message] code = 5964-2) The system ich generated this result transmitted ref erence range: 10.1 - 1 2.6 Seconds. The re ference range was not u sed to interpret this result as normal/abnor mal. INR (test code = 6301-6) Nor mal INR <1.1; Warfarin Therap eutic range 2.0 to 3. 0 or 2.5 to 3.5, dep ending upon the indica tions. Lab Interpretation (test Normal code = 55362-0) [facility] TexasACTIVATED PARTIAL THRMPLAS [id number] 11:04:00 Test Item Value Reference Range Interpretation Comments APTT Patient (test code = See_Comment [ Automated message] 3173-2) The system [employer] generated this result transmitted ref erence range: 26 - 36 Seconds. The re ference range was not u sed to interpret this result as normal/abnor mal. Lab Interpretation (test Normal code = 63683-6) [facility]MAG[facility]UM2021-01-14 09:53:00 Test Item Value Reference Range Interpretation Comments MAGNESIUM (test code = 2428788280) 1.8 mg/dL 1.7-2.4 Lab Interpretation (test code = Normal 41396-0) [facility] METABOLIC PANEL (NA, K, CL, CO2, GLUCOSE, BUN, CREATININE, CA)2020-10-20 09:53:00 Test Item Value Reference Range Interpretation Comments NA (test code = 134 mmol/L 135-145 L 5338649323) K (test code = 4.3 mmol/L 3.5-5 4066878342) CL (test code = 101 mmol/L 98-108 9387907507) CO2 TOTAL (test code = 32 mmol/L 23-31 H 9146586291) AGAP (test code = 2-16 L 2139181383) BUN (test code = 14 mg/dL 7-23 4649561835) GLUCOSE (test code = 109 mg/dL 70-110 3213512695) CREATININE (test code = 0.47 mg/dL 0.5-1.04 L 7436863815) CALCIUM (test code = 8.0 mg/dL 8.6-10.6 L 3686593017) eGFR Calculation mL/min/1.73m2 (Non-) (test code = 3550435791) eGFR Calculation mL/min/1.73m2 () (test code = 8631842580) TANESHA (test code = TANESHA) Association of [...] tests). Lab Interpretation Abnormal (test code = 44545-6) [facility] TexasN-methyl-D-Aspartate Receptor Ab, CSF 2020-10-19 21:52:00 Test Item Value Reference Range Interpretation Comments B-znrahq-C-Aspartate < 1:1 See_Comment Antibo dies to NMDA were Receptor Ab, CSF not detecte d, no additional (test code = 53123-7) testin g to follow.INTERPRE TIVE INFORMATION: O-biipgl-P-Aspa rtate ?Receptor Ab, CSF Anti-NM DA receptor [...] T est developed and characteristics determined by [facility]. See Compliance Stat ement B: [employer].[address]/CSP erformed By: [facility] [address] [place], [place] [address]L[facility] Director: Sherry Murillo MD [Automated m essage] The system which ge nerated this result transmit carol reference range : <1:1. The reference range was not used to interpr et this result as anoop l/abnormal. [facility] TexasXR [id number] 16:55:02 Dobbhoff tube projects over the gastric body. Preliminary Report Dictated by Resident: Laureano Salazar I reviewed this study and agree with minor modifications (no call needed tothe referring physician). I, Rick Ferrell MD., have reviewed this study and agree [...] agree with theabove report.[facility] TexasCARCINOEMBRYONIC ANTIGEN 2020-10-19 15:44:00 Test Item Value Reference Range Interpretation Comments CEA (test code = 0.5 ng/mL 0-10 5869963402) TANESHA (test code = TANESHA) CEA Ranges: Non-Smokers ?0-5.0 ng/mLSmokers ? ? ?0-10.0 ng/mL Lab Interpretation (test Normal code = 93013-5) [facility] TexasMR ABDOMEN W WO CONTRAST [id number] 13:26:12 Pancreatic parenchyma is atrophic and the [...] agree with theabove report.[facility] TexasMisc. Sendout- Men/Encep [facility] [id number] 2020-10-19 13:26:00 Test Item Value Reference Range Interpretation Comments Miscellaneous Test (test See scanned report code = 5476197569) Performing Lab (test code [facility] = 5044196078) [facility] TexasHBV BY REAL-TIME [id number] 12:40:00 Test Item Value Reference Range Interpretation Comments HBV Quantitative Not Detected Not Detected Interpretation (test code = 38806-6) TANESHA (test code = TANESHA) The test [...] Log IU/mL >10^9 ?IU/mL, ?>9.00 ?Log IU/mL [facility] (NA, K, CL, CO2, GLUCOSE, BUN, CREATININE, CA)2020-10-19 09:55:00 Test Item Value Reference Range Interpretation Comments NA (test code = 131 mmol/L 135-145 L 2043436762) K (test code = 3.6 mmol/L 3.5-5 0394108742) CL (test code = 99 mmol/L 98-108 1391566645) CO2 TOTAL (test code = 28 mmol/L 23-31 8557653218) AGAP (test code = 2-16 0643766326) BUN (test code = 9 mg/dL 7-23 6221062947) GLUCOSE (test code = 83 mg/dL 70-110 9688721875) CREATININE (test code = 0.78 mg/dL 0.5-1.04 8290717929) CALCIUM (test code = 8.3 mg/dL 8.6-10.6 L 6117797769) eGFR Calculation mL/min/1.73m2 (Non-) (test code = 3756499542) eGFR Calculation mL/min/1.73m2 () (test code = 5498092292) TANESHA (test code = TANESHA) Association of [...] tests). Lab Interpretation Abnormal (test code = 82867-3) [facility]MAG[facility]UM2021-01-13 09:55:00 Test Item Value Reference Range Interpretation Comments MAGNESIUM (test code = 4484235457) 1.6 mg/dL 1.7-2.4 L Lab Interpretation (test code = Abnormal 98402-2) [facility] METABOLIC PANEL (NA, K, CL, CO2, GLUCOSE, BUN, CREATININE, CA)2020-10-19 04:33:00 Test Item Value Reference Range Interpretation Comments NA (test code = 132 mmol/L 135-145 L 5738869413) K (test code = 4.2 mmol/L 3.5-5 Slight 2514674772) hemolysis CL (test code = 103 mmol/L 98-108 7123799334) CO2 TOTAL (test code 22 mmol/L 23-31 L = 3804918580) AGAP (test code = 2-16 3477607426) BUN (test code = 8 mg/dL 7-23 Slight 2005743474) hemolysis GLUCOSE (test code = 79 mg/dL 70-110 0818013709) CREATININE (test code 0.39 mg/dL 0.5-1.04 L = 6538297932) CALCIUM (test code = 8.2 mg/dL 8.6-10.6 L 7178399067) eGFR Calculation mL/min/1.73m2 (Non-) (test code = 4298457242) eGFR Calculation mL/min/1.73m2 () (test code = 2464360737) TANESHA (test code = TANESHA) Association of [...] tests). Lab Interpretation Abnormal (test code = 14379-1) [facility] BRAIN W WO [id number] 23:03:05 Impression: No acute abnormality diffusion-weighted imaging.Sequela [...] enhancement identified in the right petrousapex surrounding [id number] signal centrally.Two foci of susceptibility signal loss seen at the vermis and leftcerebellar hemisphere representing foci of calcification. (Seen on prior CTscan). [facility] [[email or web address]], Radiant Results Inft User - 10/18/2020 5:12 [...] identified in the right petrous apex surrounding X6xtftivvmipwf signal centrally.Two foci of susceptibility signal loss [...] this study and agree with theabove report. [facility] TexasANTI-NUCLEAR ANTIBODY [id number] 18:56:00 Test Item Value Reference Range Interpretation Comments CARLOS ENRIQUE (test code = Negative Negative 4738178418) TANESHA (test code = TANESHA) Negative - [...] separately. Lab Interpretation (test Normal code = 19239-3) [facility] TexasXR [id number] 15:27:46FINDINGS/IMPRESSION: The Dobbhoff tube terminates in the [...] agree with theabove report.[facility] (NA, K, CL, CO2, GLUCOSE, BUN, CREATININE, CA)2020-10-18 11:41:00 Test Item Value Reference Range Interpretation Comments NA (test code = 130 mmol/L 135-145 L 5311278900) K (test code = 2.9 mmol/L 3.5-5 LL 4333731147) CL (test code = 97 mmol/L 98-108 L 4522338429) CO2 TOTAL (test code = 31 mmol/L 23-31 3436082467) AGAP (test code = 2-16 3742450968) BUN (test code = 7 mg/dL 7-23 0440869542) GLUCOSE (test code = 90 mg/dL 70-110 2978361954) CREATININE (test code = 0.72 mg/dL 0.5-1.04 1338799989) CALCIUM (test code = 8.2 mg/dL 8.6-10.6 L 6396502090) eGFR Calculation mL/min/1.73m2 (Non-) (test code = 5346449435) eGFR Calculation mL/min/1.73m2 () (test code = 8206905697) TANESHA (test code = TANESHA) Association of [...] tests). Lab Interpretation Abnormal (test code = 96336-4) [facility] TexasMAGNESIUM2021-01-12 11:28:00 Test Item Value Reference Range Interpretation Comments MAGNESIUM (test code = 3133703311) 1.7 mg/dL 1.7-2.4 Lab Interpretation (test code = Normal 54099-0) [facility] WITH [id number] 11:04:00 Test Item Value Reference Range Interpretation Comments WBC (test code = See_Comment L [Automated 3490-2) message] The sy stem which generated this [...] RDW-SD (test code = 44.5 fL 39-49.9 24861-5) RDW-CV (test code = 13.2 % 12-15.5 788-0) PLT (test code = See_Comment [Automated 777-3) message] The sy stem which generated this result transmitted reference range : 166 - 358 10*3/ ?L. The reference r irvin was not used to interpret this result as normal/abnormal . MPV (test code = 11.8 fL 9.5-12.9 45358-6) NRBC/100 WBC (test See_Comment [Automat ed code = 7978963205) message] The system which generated this result transmitted reference range : 0.0 - 10.0 /100 WBCs. The refer ence range was not u sed to interpret th is result as normal/abnormal . NRBC x10^3 (test code <0.01 See_Comment [Auto mated = 3402501739) message] The s ystem which generated this result transmitted reference range : 10*3/?L. The reference range was not used to interpret this result as normal/abnormal . GRAN MAT (NEUT) % 68.2 % (test code = 770-8) IMM GRAN % (test code 0.60 % = 7105600707) LYMPH % (test code = 13.9 % 736-9) MONO % (test code = 14.2 % 5905-5) EOS % (test code = 2.5 % 713-8) BASO % (test code = 0.6 % 706-2) GRAN MAT x10^3(ANC) 2.16 10*3/uL 1.88-7.09 (test code = 9158679566) IMM GRAN x10^3 (test <0.03 0-0.06 code = 6961547922) LYMPH x10^3 (test code 0.44 10*3/uL 1.32-3.29 L = 731-0) MONO x10^3 (test code 0.45 10*3/uL 0.33-0.92 = 742-7) EOS x10^3 (test code = 0.08 10*3/uL 0.03-0.39 711-2) BASO x10^3 (test code <0.03 0.01-0.07 = 704-7) Lab Interpretation Abnormal (test code = 16432-2) [facility] TexasURINALYSIS2021-01-11 23:14:00 Test Item Value Reference Range Interpretation Comments APPEARANCE (test code = Hazy Clear A 8680746120) COLOR (test code = Yellow Yellow 2557586921) PH (test code = 4.8-8.0 3311605092) SP GRAVITY (test code = 1.003-1.030 7257447360) GLU U QUAL (test code = Normal Normal 9802941329) BLOOD (test code = Negative Negative 9920828091) KETONES (test code = Negative Negative 5342212412) PROTEIN (test code = Negative Negative 2887-8) UROBILIN (test code = Normal Normal 3366354427) BILIRUBIN (test code = Negative Negative 7996531180) NITRITE (test code = Negative Negative 6892598988) LEUK EDINSON (test code = Negative Negative 6074694681) RBC/HPF (test code = See_Comment [Autom ated message] 3319796822) The system [employer] generated this result transmitted ref erence range: 0 - 3 HP F. The reference range was not used to int erpret this result as normal/abnormal . WBC/HPF (test code = See_Comment [Autom ated message] 5910666606) The system [employer] generated this result transmitted ref erence range: 0 - 5 HP F. The reference range was not used to int erpret this result as normal/abnormal . BACTERIA (test code = Few Negative A 7309467340) AMORPHOUS (test code = Rare Rare HPF 8457335810) Lab Interpretation (test Abnormal code = 25511-5) [facility] TexasCANCER ANTIGEN-GI (CA 19-9)2020-10-17 21:15:00 Test Item Value Reference Range Interpretation Comments CA 19-9 (test code = 18.9 U/mL 0-35 9954121072) TANESHA (test code = TANESHA) Biotin has been reported to cause a negative bias, interpret results relative to patient's use of biotin. Lab Interpretation (test Normal code = 12870-3) [facility] TexasCA-[id number] 21:15:00 Test Item Value Reference Range Interpretation Comments CA-125 (test code = 4074925759) 27.0 U/mL 0-35 Lab Interpretation (test code = Normal 52554-8) [facility] TexasCT THORAX W [id number] 21:02:02 1.. Findings there may be seen [...] reviewed this study and agree with theabove report.[facility]-REACTIVE [id number] 21:00:00 Test Item Value Reference Range Interpretation Comments CRP (test code = 4224722147) 0.4 mg/dL <0.8 Lab Interpretation (test code = Normal 19009-7) [facility] TexasSEDIMENTATION [id number] 20:11:00 Test Item Value Reference Range Interpretation Comments ESR (test code = See_Comment [Automated message] 6560500166) The system [employer] generated this result transmitted ref erence range: 0 - 20 m m/HR. The reference r irvin was not used to interpret this result as normal/abnor mal. Lab Interpretation (test Normal code = 40158-2) [facility] METABOLIC PANEL (NA, K, CL, CO2, GLUCOSE, BUN, CREATININE, CA)2020-10-17 20:04:00 Test Item Value Reference Range Interpretation Comments NA (test code = 132 mmol/L 135-145 L 9928344033) K (test code = 3.5 mmol/L 3.5-5 3552112093) CL (test code = 99 mmol/L 98-108 2983369789) CO2 TOTAL (test code = 31 mmol/L 23-31 0506836865) AGAP (test code = 2-16 7633274215) BUN (test code = 8 mg/dL 7-23 7248190212) GLUCOSE (test code = 85 mg/dL 70-110 2514458039) CREATININE (test code = 0.33 mg/dL 0.5-1.04 L 2813191484) CALCIUM (test code = 8.7 mg/dL 8.6-10.6 9541575048) eGFR Calculation mL/min/1.73m2 (Non-) (test code = 0338943532) eGFR Calculation mL/min/1.73m2 () (test code = 8279882791) TANESHA (test code = TANESHA) Association of [...] tests). Lab Interpretation Abnormal (test code = 53236-8) [facility] TexasLactic Acid Whole [id number] 19:42:00 Test Item Value Reference Range Interpretation Comments LACTIC ACID (test code = 0.79 mmol/L QUE S 0422478061) [facility] TexasRHEUMATOID [id number] 18:54:00 Test Item Value Reference Range Interpretation Comments RF (test code = <20 See_Comment [Automated message] 7647632143) The system [employer] generated this result transmitted ref erence range: <20 IU/m L. The reference range was not used to int erpret this result as normal/abnormal . Lab Interpretation (test Normal code = 98435-1) [facility] TexasCT ABDOMEN PELVIS W [id number] 17:28:35 1. ?Mildly dilated common duct, measuring [...] agree with theabove report.[facility] TexasHCV BY [id number] 12:45:00 Test Item Value Reference Range Interpretation Comments HCV Quantitative Not Detected Not detected Interpretation (test IU/mL code = 5477043856) TANESHA (test code = TANESHA) [employer] m2000 RealTime HCV reverse flight security specialist-polymeras e chain reaction(RT-PCR) assay is used. It [...] ,000 IU/mL,>100,000,000 IU/mL: >upper limit of quantification. [facility] TexasCB WITH [id number] 11:49:00 Test Item Value Reference Range Interpretation Comments WBC (test code = See_Comment [Automated 4224-2) message] The sy stem which generated this result transmitted reference range : 4.30 - 11.10 10*3/?L. The reference range was not used to interpret this result as normal/abnormal . RBC (test code = See_Comment L [Automated 692-8) message] The sy stem which generated this [...] RDW-SD (test code = 42.9 fL 39-49.9 37278-2) RDW-CV (test code = 13.1 % 12-15.5 788-0) PLT (test code = See_Comment [Automated 777-3) message] The sy stem which generated this result transmitted reference range : 166 - 358 10*3/ ?L. The reference r irvin was not used to interpret this result as normal/abnormal . MPV (test code = 12.2 fL 9.5-12.9 54861-3) NRBC/100 WBC (test See_Comment [Automat ed code = 2090039888) message] The system which generated this result transmitted reference range : 0.0 - 10.0 /100 WBCs. The refer ence range was not u sed to interpret th is result as normal/abnormal . NRBC x10^3 (test code <0.01 See_Comment [Auto mated = 2351076740) message] The s ystem which generated this result transmitted reference range : 10*3/?L. The reference range was not used to interpret this result as normal/abnormal . GRAN MAT (NEUT) % 70.1 % (test code = 770-8) IMM GRAN % (test code 0.40 % = 4714806892) LYMPH % (test code = 15.2 % 736-9) MONO % (test code = 11.6 % 5905-5) EOS % (test code = 2.3 % 713-8) BASO % (test code = 0.4 % 706-2) GRAN MAT x10^3(ANC) 3.37 10*3/uL 1.88-7.09 (test code = 8478289735) IMM GRAN x10^3 (test <0.03 0-0.06 code = 3930940813) LYMPH x10^3 (test code 0.73 10*3/uL 1.32-3.29 L = 731-0) MONO x10^3 (test code 0.56 10*3/uL 0.33-0.92 = 742-7) EOS x10^3 (test code = 0.11 10*3/uL 0.03-0.39 711-2) BASO x10^3 (test code <0.03 0.01-0.07 = 704-7) Lab Interpretation Abnormal (test code = 67601-8) [facility] METABOLIC PANEL (NA, K, CL, CO2, GLUCOSE, BUN, CREATININE, CA)2020-10-17 11:46:00 Test Item Value Reference Range Interpretation Comments NA (test code = 134 mmol/L 135-145 L 8074065632) K (test code = 3.3 mmol/L 3.5-5 L 3554883760) CL (test code = 100 mmol/L 98-108 2113524524) CO2 TOTAL (test code = 30 mmol/L 23-31 3515946635) AGAP (test code = 2-16 0936714628) BUN (test code = 8 mg/dL 7-23 4437502656) GLUCOSE (test code = 102 mg/dL 70-110 2567115790) CREATININE (test code = 0.37 mg/dL 0.5-1.04 L 2833494323) CALCIUM (test code = 8.5 mg/dL 8.6-10.6 L 4080900014) eGFR Calculation mL/min/1.73m2 (Non-) (test code = 5837880602) eGFR Calculation mL/min/1.73m2 () (test code = 7679368476) TANESHA (test code = TANESHA) Association of [...] tests). Lab Interpretation Abnormal (test code = 60664-6) [facility] TexasMAGNESIUM2021-01-11 11:46:00 Test Item Value Reference Range Interpretation Comments MAGNESIUM (test code = 0185768679) 1.9 mg/dL 1.7-2.4 Lab Interpretation (test code = Normal 30931-5) [facility] TexasMAGNESIUM2021-01-11 10:58:00MAGNESIUMComment: Please disregard previous result value, patient results are inconsistent with previous results. Notified Dr. Macario Urbina, patient will be credited. This is a corrected result. ?Previous result was 1.3 mg/dL on 10/17/2020 at 0438 [facility] SERVICESUnHarris Health [facility] Johnson HospitalCB WITH [id number] 10:53:00 Test Item Value Reference Range Interpretation [...] RDW-SD (test code = 44.0 fL 39-49.9 32483-6) RDW-CV (test code = 13.0 % 12-15.5 788-0) PLT (test code = See_Comment L [Automated 777-3) message] The sy stem which generated this result transmitted reference range : 166 - 358 10*3/ ?L. The reference r irvin was not used to interpret this result as normal/abnormal . MPV (test code = 12.1 fL 9.5-12.9 89018-9) NRBC/100 WBC (test See_Comment [Automat ed code = 9722169550) message] The system which generated this result transmitted reference range : 0.0 - 10.0 /100 WBCs. The refer ence range was not u sed to interpret th is result as normal/abnormal . NRBC x10^3 (test code <0.01 See_Comment [Auto mated = 7008374090) message] The s ystem which generated this result transmitted reference range : 10*3/?L. The reference range was not used to interpret this result as normal/abnormal . GRAN MAT (NEUT) % 72.8 % (test code = 770-8) IMM GRAN % (test code 0.60 % = 4711655226) LYMPH % (test code = 12.5 % 736-9) MONO % (test code = 11.9 % 5905-5) EOS % (test code = 1.9 % 713-8) BASO % (test code = 0.3 % 706-2) GRAN MAT x10^3(ANC) 2.63 10*3/uL 1.88-7.09 (test code = 4747601140) IMM GRAN x10^3 (test <0.03 0-0.06 code = 1994191075) LYMPH x10^3 (test code 0.45 10*3/uL 1.32-3.29 L = 731-0) MONO x10^3 (test code 0.43 10*3/uL 0.33-0.92 = 742-7) EOS x10^3 (test code = 0.07 10*3/uL 0.03-0.39 711-2) BASO x10^3 (test code <0.03 0.01-0.07 = 704-7) Lab Interpretation Abnormal (test code = 93960-6) [facility] TexasBODY FLUID DIRECT [id number] 08:48:00 Test Item Value Reference Range Interpretation Comments BF COLOR (test code = Clear 3011178473) BF WBC Count (test See_Comment [Automat ed message] The code = 1663264020) system [facility] generated this result transmit carol reference range : 0 - 5 /?L. The reference r irvin was not used to interpr et this result as anoop l/abnormal. BF RBC Count (test See_Comment [Automat ed message] The code = 9630965135) system [facility] generated this result transmit carol reference range : /?L. The reference range was not used to interpr et this result as anoop l/abnormal. [facility] TexasBODY FLUID MANUAL [id number] 08:48:00 Test Item Value Reference Range Interpretation Comments BF SEGS (test code = 0197252461) 1 % 0-7 BF LYMPHS (test code = 0430948833) 18 % 28-96 L MACROPHAGE (test code = 0489679738) 6 % 16-56 L #CELS CNTD (test code = 6477199422) Lab Interpretation (test code = Abnormal 71773-6) [facility] TexasCerebrospinal Fluid [id number] 08:27:00 Test Item Value Reference Range Interpretation Comments GLU CSF (test code = 72 mg/dL 50-80 6330609103) UNSPUN BODY FLUID Colorless COLOR (test code = 8441237737) UNSPUN BODY FLUID Clear CLARITY (test code = 8037929597) SPUN BODY FLUID COLOR Colorless (test code = 2065387832) SPUN BODY FLUID Clear CLARITY (test code = 7096708378) Sediment (test code = The sediment volume is 4494268112) <0.01 mL of the total fluid volume of 2.5 mLs and its color is red. [facility] TexasCerebrospinal Fluid [id number] 08:27:00 Test Item Value Reference Range Interpretation Comments T. PRO CSF (test code = 56.0 mg/dL 15-45 H 2737742650) UNSPUN BODY FLUID COLOR Colorless (test code = 7164196762) UNSPUN BODY FLUID CLARITY Clear (test code = 9473375766) SPUN BODY FLUID COLOR Colorless (test code = 8407435420) SPUN BODY FLUID CLARITY Clear (test code = 9171000791) Sediment (test code = The sediment volume 4829396370) is <0.01 mL of the total fluid volume of 2.5 mLs and its color is red. Lab Interpretation (test Abnormal code = 45700-7) [facility] TexasGLUCOSE, URINE [id number] 05:19:00 Test Item Value Reference Range Interpretation Comments GLU URINE (test code = <20 See_Comment [Aut omated message] 7487746618) The system [employer] generated this result transmitted ref erence range: <30 mg/d L. The reference range was not used to int erpret this result as normal/abnormal . Lab Interpretation (test Normal code = 73545-4) [facility] TexasElectroencephalogram (EEG) - Duration of test: 20-60 [id number] 00:00:00Date and Time of Procedure: 10/17/2020, 8:49:37 [...] Pina Cobos Rai, MD Date of interpretation: 10/17/2020Un[facility] HospitalMR BRAIN WO [id number] 22:27:44 FINDINGS/IMPRESSION: Only diffusion-weighted sequences were obtained and are markedly degradedby artifact. No diffusion restriction identified within the limitations of the scan. Thescan is a still clinically needed, repeat under sedation/anesthesia isrecommended.EXAM: MR BRAIN WO CONTRAST HISTORY: Altered level of consciousness (LOC), unexplained TECHNIQUE: Only diffusion-weighted sequences of the brain were obtained. COMPARISON: CT head dated 10/13/2020. [facility] [[email or web address]], Radiant Results Inft User - 10/16/2020 4:28 PM CSTEXAM: MR BRAIN WO CONTRASTHISTORY: Altered level of consciousness (LOC), unexplained TECHNIQUE: Only diffusion-weighted sequences of the brain were obtained.COMPARISON: CT head dated 10/13/2020.IMPRESSIONFINDINGS/IMPRESSION:Only diffusion-weighted sequences were obtained and are markedly degradedby artifact.No diffusion restriction identified within the limitations of the scan. Thescan is a still clinically needed, repeat under sedation/anesthesia isrecommended.[facility] TexasVITAMIN B1, [id number] 14:34:00 Test Item Value Reference Range Interpretation Comments VIT B1 (test code = 25 nmol/L 4-15 H INTERPRE TIVE DATA: 26555-3) Vitamin B1, Trevor sma Thiamine (vitam in B1) is reported. Ho wever, thiamine diphos phate (TDP), the biologically ac tive form of thiamin e, is not found in measurable concentrations in plasma, and is best determined in w hole blood specimens . Plasma thiamine concentration r eflects recent intake r ather than body store s. Test developed and characteristics determined by [employer]. S ee Compliance Stat ement B: Hyglos/EUGENE jacques d By: Wan Shidao management[address] [place] [id number] Director: Sherry Murillo MD Lab Interpretation Abnormal (test code = 15881-0) [facility] TexasCORTISOL [id number] 12:42:00 Test Item Value Reference Range Interpretation Comments HIRA AM (test code = 21.3 ug/dL 4.5-23 8236700084) TANESHA (test code = TANESHA) Biotin has been reported to cause a positive bias, interpret results relative to patient's use of biotin. Lab Interpretation (test Normal code = 26075-3) [facility]OL[facility] (NA, K, CL, CO2, GLUCOSE, BUN, CREATININE, CA)2020-10-16 12:10:00 Test Item Value Reference Range Interpretation Comments NA (test code = 131 mmol/L 135-145 L 8644314242) K (test code = 3.6 mmol/L 3.5-5 1708345734) CL (test code = 99 mmol/L 98-108 8093737565) CO2 TOTAL (test code = 28 mmol/L 23-31 5493320243) AGAP (test code = 2-16 2026966710) BUN (test code = 7 mg/dL 7-23 4175405384) GLUCOSE (test code = 124 mg/dL 70-110 H 4069593813) CREATININE (test code = 0.34 mg/dL 0.5-1.04 L 5162268066) CALCIUM (test code = 8.3 mg/dL 8.6-10.6 L 2802920907) eGFR Calculation mL/min/1.73m2 (Non-) (test code = 6965382176) eGFR Calculation mL/min/1.73m2 () (test code = 2974953001) TANESHA (test code = TANESHA) Association of [...] tests). Lab Interpretation Abnormal (test code = 56572-0) [facility] TexasCALCIUM, URINE [id number] 08:47:00 Test Item Value Reference Range Interpretation Comments CA URINE (test code = 7990891611) 32.4 mg/dL [facility] TexasCREATININE, URINE [id number] 08:39:00 Test Item Value Reference Range Interpretation Comments CREAT U (test code = 0326718828) 23.3 mg/dL [facility] TexasOSMOLALITY [id number] 08:38:00 Test Item Value Reference Range Interpretation Comments OSMO U (test code = See_Comment [Automa carol message] 7484072211) The system [employer] generated this result transmitted ref erence range: 50-1,100 mOsm/kg. The re ference range was not u sed to interpret this result as normal/abnor mal. Lab Interpretation (test Normal code = 24475-1) [facility] TexasMAGNESIUM, URINE [id number] 08:37:00 Test Item Value Reference Range Interpretation Comments MG URINE (test code = 2084312712) 31.0 mg/dL [facility] TexasPOTASSIUM, URINE [id number] 08:16:00 Test Item Value Reference Range Interpretation Comments K URINE (test code = 8485255245) 49.9 mmol/L [facility] TexasSODIUM, URINE [id number] 08:16:00 Test Item Value Reference Range Interpretation Comments NA URINE (test code = 9418545975) 117 mmol/L [facility] TexasCALCIUM, URINE [id number] 01:45:00 Test Item Value Reference Range Interpretation Comments CA URINE (test code = 8327482047) 34.2 mg/dL [facility] TexasMAGNESIUM2021-01-10 00:29:00 Test Item Value Reference Range Interpretation Comments MAGNESIUM (test code = 8890476305) 3.3 mg/dL 1.7-2.4 H Lab Interpretation (test code = Abnormal 46075-0) [facility] TexasSODIUM, URINE [id number] 00:00:00 Test Item Value Reference Range Interpretation Comments NA URINE (test code = 0410888004) 127 mmol/L [facility] METABOLIC PANEL (NA, K, CL, CO2, GLUCOSE, BUN, CREATININE, CA)2020-10-15 22:22:00 Test Item Value Reference Range Interpretation Comments NA (test code = 130 mmol/L 135-145 L 0392243499) K (test code = 3.3 mmol/L 3.5-5 L 0585419320) CL (test code = 97 mmol/L 98-108 L 5447997520) CO2 TOTAL (test code = 28 mmol/L 23-31 3763544116) AGAP (test code = 2-16 0028052352) BUN (test code = 5 mg/dL 7-23 L 6650838848) GLUCOSE (test code = 144 mg/dL 70-110 H 7476155006) CREATININE (test code = 0.37 mg/dL 0.5-1.04 L 7582112505) CALCIUM (test code = 8.1 mg/dL 8.6-10.6 L 5360957868) eGFR Calculation mL/min/1.73m2 (Non-) (test code = 6627568890) eGFR Calculation mL/min/1.73m2 () (test code = 4485878179) TANESHA (test code = TANESHA) Association of [...] tests). Lab Interpretation Abnormal (test code = 91218-5) [facility] TexasOSMOLALITY [id number] 15:30:00 Test Item Value Reference Range Interpretation Comments OSMOLALITY (test code = See_Comment L [Au tomated message] 8307596837) The system [employer] generated this result transmitted ref erence range: 278 - 30 5 mOsm/kg. The reference range was not used to int erpret this result as normal/abnormal . Lab Interpretation (test Abnormal code = 07590-6) [facility] TexasMAGNESIUM2021-01-09 12:04:00 Test Item Value Reference Range Interpretation Comments MAGNESIUM (test code = 2182981453) 1.5 mg/dL 1.7-2.4 L Lab Interpretation (test code = Abnormal 85037-1) [facility] TexasPHOSPHORUS2021-01-09 12:04:00 Test Item Value Reference Range Interpretation Comments PHOSPHORUS (test code = 8494501771) 2.4 mg/dL 2.5-5 L Lab Interpretation (test code = Abnormal 36188-0) [facility] TexasBASIC METABOLIC PANEL (NA, K, CL, CO2, GLUCOSE, BUN, CREATININE, [place])2020-10-15 12:04:00 Test Item Value Reference Range Interpretation Comments NA (test code = 129 mmol/L 135-145 L 4984000857) K (test code = 3.4 mmol/L 3.5-5 L 5292227521) CL (test code = 97 mmol/L 98-108 L 6084735555) CO2 TOTAL (test code = 27 mmol/L 23-31 4862006743) AGAP (test code = 2-16 2763035396) BUN (test code = 7 mg/dL 7-23 1558084831) GLUCOSE (test code = 101 mg/dL 70-110 8497419205) CREATININE (test code = 0.37 mg/dL 0.5-1.04 L 7605144016) CALCIUM (test code = 8.4 mg/dL 8.6-10.6 L 4328557778) eGFR Calculation mL/min/1.73m2 (Non-) (test code = 6076873420) eGFR Calculation mL/min/1.73m2 () (test code = 6883519725) TANESHA (test code = TANESHA) Association of [...] tests). Lab Interpretation Abnormal (test code = 70990-9) [facility] WITHOUT [id number] 11:51:00 Test Item Value Reference Range Interpretation Comments WBC (test code = 6690-2) See_Comment [A utomated message] The system [employer] generated this result transmit carol reference range : 4.30 - 11.10 10*3/?L. The reference range was not used to interpret this result as normal/abnormal . RBC (test code = 789-8) See_Comment L [Au tomated message] The system [employer] generated this result transmit carol reference range [...] 777-3) See_Comment [Au tomated message] The system [employer] generated this result transmit carol reference range : 166 - 358 10*3/?L. The reference range was not used to interpret this result as normal/abnormal . MPV (test code = 11.8 fL 9.5-12.9 69955-1) RDW-CV (test code = 12.6 % 12-15.5 788-0) RDW-SD (test code = 41.1 fL 39-49.9 54571-5) NRBC x10^3 (test code = <0.01 See_Comment [Au tomated message] 5784656350) The system [employer] generated this result transmit carol reference range : 10*3/?L. The reference range was not used to interpret this result as normal/abnormal . NRBC/100 WBC (test code See_Comment [Au tomated message] = 4240968047) The system [employer] generated this result transmit carol reference range : 0.0 - 10.0 /100 WBC s. The reference r irvin was not used to interpret this result as normal/abnormal . IPF % (test code = 7185138724) Lab Interpretation (test Abnormal code = 83984-6) [facility] 1 [id number] 03:35:17 No acute intrathoracic abnormality. Preliminary Report [...] reviewed this study and agree withthe above report.[facility] [id number] 03:18:19 1. ?Dobbhoff tube tip in the [...] unremarkable.IMPRESSION1. Dobbhoff tube tip in the gastric body.[facility] (NA, K, CL, CO2, GLUCOSE, BUN, CREATININE, [place])2020-10-14 21:35:00 Test Item Value Reference Range Interpretation Comments NA (test code = 128 mmol/L 135-145 L 4763523544) K (test code = 3.4 mmol/L 3.5-5 L 1002990765) CL (test code = 95 mmol/L 98-108 L 7698019274) CO2 TOTAL (test code = 25 mmol/L 23-31 1623865716) AGAP (test code = 2-16 9665804591) BUN (test code = 4 mg/dL 7-23 L 9291644700) GLUCOSE (test code = 92 mg/dL 70-110 9131556958) CREATININE (test code = 0.36 mg/dL 0.5-1.04 L 3617861159) CALCIUM (test code = 8.8 mg/dL 8.6-10.6 2381801497) eGFR Calculation mL/min/1.73m2 (Non-) (test code = 3773981285) eGFR Calculation mL/min/1.73m2 () (test code = 2542438504) TANESHA (test code = TANESHA) Association of [...] tests). Lab Interpretation Abnormal (test code = 69923-4) [facility] METABOLIC PANEL (NA, K, CL, CO2, GLUCOSE, BUN, CREATININE, [place])2020-10-14 12:04:00 Test Item Value Reference Range Interpretation Comments NA (test code = 130 mmol/L 135-145 L 0529463143) K (test code = 2.7 mmol/L 3.5-5 LL 3205800630) CL (test code = 94 mmol/L 98-108 L 5530733778) CO2 TOTAL (test code = 32 mmol/L 23-31 H 1491756483) AGAP (test code = 2-16 6384813005) BUN (test code = 3 mg/dL 7-23 L 9855176007) GLUCOSE (test code = 105 mg/dL 70-110 0351919929) CREATININE (test code = 0.32 mg/dL 0.5-1.04 L 6646086042) CALCIUM (test code = 8.2 mg/dL 8.6-10.6 L 0475268552) eGFR Calculation mL/min/1.73m2 (Non-) (test code = 2116878966) eGFR Calculation mL/min/1.73m2 () (test code = 3276492462) TANESHA (test code = TANESHA) Association of [...] tests). Lab Interpretation Abnormal (test code = 85522-3) [facility]2021-01-08 11:58:00 Test Item Value Reference Range Interpretation Comments MAGNESIUM (test code = 3905730775) 1.9 mg/dL 1.7-2.4 Lab Interpretation (test code = Normal 07728-8) [facility]PHOSPHORUS2021-01-08 11:58:00 Test Item Value Reference Range Interpretation Comments PHOSPHORUS (test code = 0588306580) 2.0 mg/dL 2.5-5 L Lab Interpretation (test code = Abnormal 39215-2) [facility]CB WITHOUT [id number] 11:36:00 Test Item Value Reference Range Interpretation Comments WBC (test code = 6690-2) See_Comment [A utomated message] The system [employer] generated this result transmit carol reference range : 4.30 - 11.10 10*3/?L. The reference range was not used to interpret this result as normal/abnormal . RBC (test code = 789-8) See_Comment L [Au tomated message] The system [employer] generated this result transmit carol reference range [...] 777-3) See_Comment [Au tomated message] The system [employer] generated this result transmit carol reference range : 166 - 358 10*3/?L. The reference range was not used to interpret this result as normal/abnormal . MPV (test code = 12.2 fL 9.5-12.9 81205-1) RDW-CV (test code = 12.4 % 12-15.5 788-0) RDW-SD (test code = 39.7 fL 39-49.9 82675-5) NRBC x10^3 (test code = <0.01 See_Comment [Au tomated message] 3737881415) The system [employer] generated this result transmit carol reference range : 10*3/?L. The reference range was not used to interpret this result as normal/abnormal . NRBC/100 WBC (test code See_Comment [Au tomated message] = 7176554674) The system [facility] generated this result transmit carol reference range : 0.0 - 10.0 /100 WBC s. The reference r irvin was not used to interpret this result as normal/abnormal . IPF % (test code = 6677261824) Lab Interpretation (test Abnormal code = 84963-5) [facility], [id number] 23:07:00 Test Item Value Reference Range Interpretation Comments AMMONIA (test code = 7072470320) 19 umol/L 9-33 Lab Interpretation (test code = Normal 25513-7) [facility] (NA, K, CL, CO2, GLUCOSE, BUN, CREATININE, [place])2020-10-13 23:06:00 Test Item Value Reference Range Interpretation Comments NA (test code = 128 mmol/L 135-145 L 2251995012) K (test code = 2.4 mmol/L 3.5-5 LL 2055657747) CL (test code = 93 mmol/L 98-108 L 2051601208) CO2 TOTAL (test code = 30 mmol/L 23-31 5020871811) AGAP (test code = 2-16 7165693572) BUN (test code = 4 mg/dL 7-23 L 2408634778) GLUCOSE (test code = 127 mg/dL 70-110 H 6473485007) CREATININE (test code = 0.34 mg/dL 0.5-1.04 L 6966122431) CALCIUM (test code = 8.4 mg/dL 8.6-10.6 L 2028289648) eGFR Calculation mL/min/1.73m2 (Non-) (test code = 6260174717) eGFR Calculation mL/min/1.73m2 () (test code = 7045222050) TANESHA (test code = TANESHA) Association of [...] tests). Lab Interpretation Abnormal (test code = 07516-7) [facility] TexasCREATINE [id number] 23:04:00 Test Item Value Reference Range Interpretation Comments CK (test code = 6990557763) 120 U/L 33-194 Lab Interpretation (test code = Normal 18288-3) [facility] [id number] 22:44:00 Test Item Value Reference Range Interpretation Comments FREE T4 (test code = See_Comment H [Autom ated message] 7035360390) The system [employer] generated this result transmitted ref erence range: 0.78 - 2 .20 ng/dL:. The ref erence range was not u sed to interpret this result as normal/abnor mal. Lab Interpretation (test Abnormal code = 92729-8) [facility] [id number] 22:44:00 Test Item Value Reference Range Interpretation Comments FREE T3 (test code = 2168075200) 3.44 pg/mL 2.77-5.27 Lab Interpretation (test code = Normal 33520-5) [facility] TexasHEPATIC FUNCTION PANEL (38785) (ALB,T.PRO,BILI T,BU/BC,ALT,AST,ALK PHOS)2020-10-13 22:26:00 Test Item Value Reference Range Interpretation Comments TOTAL BILI (test code = 0874281578) 0.5 mg/dL 0.1-1.1 BILI UNCON (test code = 0281479601) 0.5 mg/dL 0.1-1.1 BILI CONJ (test code = 9275891789) 0.0 mg/dL 0-0.3 T PROTEIN (test code = 5624595927) 6.3 g/dL 6.3-8.2 ALBUMIN (test code = 5539835933) 4.0 g/dL 3.5-5 ALK PHOS (test code = 5452894706) 75 U/L 34-122 ALTv (test code = 1742-6) 52 U/L 5-35 H AST(SGOT) (test code = 1952123267) 49 U/L 13-40 H Lab Interpretation (test code = Abnormal 84160-0) [facility] TexasPHENYTOIN [id number] 17:04:00 Test Item Value Reference Range Interpretation Comments PHENY FREE (test code 1.7 ug/mL 1-2 = 3408878966) TANESHA (test code = TANESHA) Toxic Range: ? Greater than 2.5 ug/mL Test developed and characteristics determined by [facility] Laboratory Services. Lab Interpretation Normal (test code = 05311-4) [facility] TexasChes 2 [id number] 16:43:20EXAM: XR CHEST 2 VW HISTORY: concern for aspiration. COMPARISON: None. FINDINGS: The heart and greatvessels are normal and the lungs are well expanded andclear. They show nothing to suggest aspiration. ? [facility] [[email or web address]], Radiant Results Inft User - 10/13/2020 10:44 AM CSTEXAM: XR CHEST 2 VWHISTORY: concern for aspiration. COMPARISON: None.FINDINGS:The heart and great vessels are normal and the lungs are well ex panded andclear. They show nothing to suggest aspiration.[facility] TexasHIV 1/2 AG-AB WITH [id number] 16:39:00 Test Item Value Reference Range Interpretation Comments HIV Negative Negative Semi-quantitative (test code = 58077-6) TANESHA (test code = Non-reactive for HIV-1 TANESHA) antigen and HIV-1/HIV-2 antibodies. ?No laboratory evidence of HIV infection. ?Repeat in 2-4 weeks if acute HIV infection is suspected. [facility]GAL ONLY - SYPHILIS IGG/[id number] 16:13:00 Test Item Value Reference Range Interpretation Comments Syphilis IgG/IgM (test Non-reactive Non-reactive code = 46655-0) TANESHA (test code = TANESHA) Non-reactive - No serologic evidence of T. pallidum infection. Cannot exclude incubating or early syphilis. Submit a second specimen in 2-4 weeks if syphilis is clinically suspected. Equivocal - Further testing to follow. Reactive - Further testing to follow. Lab Interpretation (test Normal code = 16629-3) [facility] ONLY COVID [id number] 15:25:00COVID DMT InterpretationInterpretation/Recommendations: Molecular NAAT Tests for [...] COVID-19 testing the patient has had at [facility], including molecular NAAT testing (more commonly known as PCR testing and Rapid ID Now testing) and antibody testing. It does not take into account any testing that a patient has had outsid e of the [facility] medical record. [facility] LABORATORY SERVICESCOVID [id number] Rapid ID NOW (no units) ? ? Date ? Value ? 10/11/2020 ? Not Detected ? [facility] LABORATORY SERVICES [facility] HEAD WO [id number] 15:08:15 No acute intracranial abnormality. Preliminary Report [...] noted. Right frontal sinus is underpne umatized. [facility] [[email or web address]], Radiant Results Inft User - 10/13/2020 9:09 [...] agree with theabove report.[facility] TexasVitamin B12 [id number] 13:28:00 Test Item Value Reference Range Interpretation Comments VIT B12 (test code = 988 pg/mL 240-930 H 4203673515) TANESHA (test code = TANESHA) Biotin has been reported to cause a positive bias, interpret results relative to patient's use of biotin. Lab Interpretation (test Abnormal code = 58614-8) [facility] TexasThyroid Stimulating [id number] 13:10:00 Test Item Value Reference Range Interpretation Comments TSH (test code = See_Comment L [Automated message] 5267663838) The system [employer] generated this result transmitted ref erence range: 0.45 - 4 .70 mIU/L. The refe rence range was not u sed to interpret this result as normal/abnor mal. Lab Interpretation (test Abnormal code = 05331-4) [facility] TexasTroponin [id number] 12:52:00 Test Item Value Reference Range Interpretation Comments TROPONIN I (test 0.006 ng/mL See_Comment [Automated code = 0642919436) message] The system which generated this result [...] ? Lab Interpretation Normal (test code = 70974-6) [facility] TexasMagnesium [id number] 12:40:00 Test Item Value Reference Range Interpretation Comments MAGNESIUM (test code = 1684454956) 1.6 mg/dL 1.7-2.4 L Lab Interpretation (test code = Abnormal 56795-7) [facility]Immunoassay[facility] - Comprehensive Drug [id number] 12:36:00 Test Item Value Reference Range Interpretation Comments MICHEL S (test code = Negative Negative 4245090327) BENZO S (test code = Presumptive Positive Negative A 9926144439) TRICYCLIC (test code = Negative Negative 1409599430) TANESHA (test code = TANESHA) Serum Drug Screen Cutoff Ranges Barbiturates ? ? - 3 mcg/mLBenzodiazepines ?- 50 ng/mLTCA ?- 300 ng/mL Test developed and characteristics determined by [facility] Laboratory Services. The results are to be used only for medical (i.e., treatment) purposes. Unconfirmed screening results must not be used for non-medical purposes (e.g., employment testing, legal testing). Lab Interpretation Abnormal (test code = 95845-9) [facility] Metabolic Panel (Na, K, Cl, CO2, Glucose, BUN, Creatinine, Ca)2020-10-13 12:04:00 Test Item Value Reference Range Interpretation Comments NA (test code = 130 mmol/L 135-145 L 0533763751) K (test code = 2.6 mmol/L 3.5-5 LL 3982841734) CL (test code = 94 mmol/L 98-108 L 6247149209) CO2 TOTAL (test code = 33 mmol/L 23-31 H 1225155961) AGAP (test code = 2-16 2838357976) BUN (test code = 4 mg/dL 7-23 L 3281807923) GLUCOSE (test code = 137 mg/dL 70-110 H 1821751144) CREATININE (test code = 0.33 mg/dL 0.5-1.04 L 9488848842) CALCIUM (test code = 8.6 mg/dL 8.6-10.6 9961451227) eGFR Calculation mL/min/1.73m2 (Non-) (test code = 9483096476) eGFR Calculation mL/min/1.73m2 () (test code = 7291207910) TANESHA (test code = TANESHA) Association of [...] tests). Lab Interpretation Abnormal (test code = 51167-6) [facility] TexasPhosphorus [id number] 11:52:00 Test Item Value Reference Range Interpretation Comments PHOSPHORUS (test code = 8246245907) 2.5 mg/dL 2.5-5 Lab Interpretation (test code = Normal 78185-7) [facility] TexasCreatine Kinase (CK)2020-10-13 11:52:00 Test Item Value Reference Range Interpretation Comments CK (test code = 7274935911) 210 U/L 33-194 H Lab Interpretation (test code = Abnormal 89245-3) [facility] TexasProthrombin Time (PT) / [id number] 11:29:00 Test Item Value Reference Range Interpretation [...] tions. Lab Interpretation (test Normal code = 50084-5) [facility] with [id number] 11:27:00 Test Item Value Reference Range Interpretation Comments WBC (test code = See_Comment [Automated 4490-2) message] The sy stem which generated this [...] RDW-SD (test code = 40.8 fL 39-49.9 14284-1) RDW-CV (test code = 12.5 % 12-15.5 788-0) PLT (test code = See_Comment [Automated 777-3) message] The sy stem which generated this result transmitted reference range : 166 - 358 10*3/ ?L. The reference r irvin was not used to interpret this result as normal/abnormal . MPV (test code = 11.8 fL 9.5-12.9 38445-0) NRBC/100 WBC (test See_Comment [Automat ed code = 2871253332) message] The system which generated this result transmitted reference range : 0.0 - 10.0 /100 WBCs. The refer ence range was not u sed to interpret th is result as normal/abnormal . NRBC x10^3 (test code <0.01 See_Comment [Auto mated = 8515459141) message] The s ystem which generated this result transmitted reference range : 10*3/?L. The reference range was not used to interpret this result as normal/abnormal . GRAN MAT (NEUT) % 77.8 % (test code = 770-8) IMM GRAN % (test code 0.40 % = 1293272997) LYMPH % (test code = 9.6 % 736-9) MONO % (test code = 12.1 % 5905-5) EOS % (test code = 0.0 % 713-8) BASO % (test code = 0.1 % 706-2) GRAN MAT x10^3(ANC) 5.61 10*3/uL 1.88-7.09 (test code = 3409660942) IMM GRAN x10^3 (test 0.03 10*3/uL 0-0.06 code = 0046980203) LYMPH x10^3 (test code 0.69 10*3/uL 1.32-3.29 L = 731-0) MONO x10^3 (test code 0.87 10*3/uL 0.33-0.92 = 742-7) EOS x10^3 (test code = <0.03 0.03-0.39 L 711-2) BASO x10^3 (test code <0.03 0.01-0.07 = 704-7) Lab Interpretation Abnormal (test code = 52422-5) [facility] - Duration of test: 20-60 [id number] 00:00:00Date and Time of Procedure: 10/13/2020, 9:30:14- [...] sleep. Orlando Shea MD Date [facility]: [facility]2020[facility]2020-10-12 13:39:00 Test Item Value Reference Range Interpretation Comments POCT GLU (test code = 8870554364) 165 mg/dL 70-110 H Lab Interpretation (test code = Abnormal 63091-3) [facility] GLUCOSE (AUTOMATED)2020-10-12 06:20:00 Test Item Value Reference Range Interpretation Comments POCT GLU (test code = 9037775770) 79 mg/dL 70-110 Lab Interpretation (test code = Normal 41306-4) [facility] TexasCOVID-19 (ID NOW RAPID TESTING)2020-10-12 06:10:00 Test Item Value Reference Range Interpretation Comments SARS-CoV-2 Rapid ID NOW Not Detected Not Detected (test code = 97135-8) TANESHA (test code = TANESHA) ID NOW COVID-19 Assay is an isothermal nucleic acid amplification test intended for the qualitative detection of nucleic acid from SARS-CoV-2 viral RNA in nasopharyngeal (WAREHOUSE RECORD CLERK) specimens. It is used under Emergency Use [...] indicated. Lab Interpretation Normal (test code = 78591-0) [facility] TexasCT HEAD WO [id number] 04:49:02 Within the limitations of motion artifact, no gross acute intracranialabnormality is seen. Preliminary Report Dictated by Resident: Farhat Hodgson Report change Arnel Herrera reviewed this studyand disagree with the above reportwith the following modifications: Significantly motion degraded exam. Recommend repeat examination. Arnel Herrera ?MD. Kiera, have reviewed this study and agree with [...] motion artifact, no gross acute intracranialabnormality is seen.PreliminaryReport Dictated by Resident: Arnel Lopez reviewed this study and disagree with the above reportwith the following modifications:Significantly motion degraded exam. Recommend repeat examination. I, Arnel Qureshi MD., have reviewed this study and agree with theabove report.[facility] TexasURINALYSIS2021-01-06 02:27:00 Test Item Value Reference Range Interpretation Comments APPEARANCE (test code = Hazy Clear A 9063857293) COLOR (test code = Yellow Yellow 5062237952) PH (test code = 4.8-8.0 3497743689) SP GRAVITY (test code = >=1.030 1.003-1.030 7855299692) GLU U QUAL (test code = Negative Negative 7776711427) BLOOD (test code = Moderate Negative A 8978625542) KETONES (test code = >80 mg/dL Negative A 5940281077) PROTEIN (test code = Negative Negative 2887-8) UROBILIN (test code = 0.2 mg/dL See_Comment [Auto mated message] 5795816184) The system [employer] generated this result transmit carol reference range : 0-1.0 mg/dL. Th e reference range was not used to interpret this result as normal/abnormal . BILIRUBIN (test code = Negative Negative 5483647224) NITRITE (test code = Negative Negative 7242920451) LEUK EDINSON (test code = Negative Negative 2460631780) RBC/HPF (test code = See_Comment [Autom ated message] 6833459373) The system [employer] generated this result transmit carol reference range : 0 - 3 HPF. The refe rence range was not u sed to interpret th is result as normal/abnormal . WBC/HPF (test code = See_Comment [Autom ated message] 8560902451) The system [employer] generated this result transmit carol reference range : 0 - 5 HPF. The refe rence range was not u sed to interpret th is result as normal/abnormal . BACTERIA (test code = Few Negative A 1997370134) MUCOUS (test code = Slight Negative LPF A 6162229584) Lab Interpretation (test Abnormal code = 48599-5) [facility] TexasCOM. METABOLIC PANEL (67801)2020-10-12 02:14:00 Test Item Value Reference Range Interpretation Comments NA (test code = 135 mmol/L 135-145 8709252622) K (test code = 3.6 mmol/L 3.5-5 1929694651) CL (test code = 96 mmol/L 98-108 L 0312561577) CO2 TOTAL (test code = 23 mmol/L 23-31 6544313168) AGAP (test code = 2-16 4682315132) BUN (test code = 17 mg/dL 7-23 3576044092) GLUCOSE (test code = 93 mg/dL 70-110 6220954536) CREATININE (test code = 0.45 mg/dL 0.5-1.04 L 6666509497) TOTAL BILI (test code = 0.8 mg/dL 0.1-1.3 0769994057) CALCIUM (test code = 9.4 mg/dL 8.6-10.6 5341809285) T PROTEIN (test code = 7.7 g/dL 6.3-8.2 9282740094) ALBUMIN (test code = 5.0 g/dL 3.5-5 3837344941) ALK PHOS (test code = 92 U/L 34-122 6438810349) ALTv (test code = 64 U/L 5-35 H 1742-6) AST(SGOT) (test code = 66 U/L 13-40 H 4260920322) eGFR Calculation mL/min/1.73m2 (Non-) (test code = 3635455054) eGFR Calculation mL/min/1.73m2 () (test code = 1701702976) TANESHA (test code = TANESHA) Association of [...] tests). Lab Interpretation Abnormal (test code = 67911-4) [facility] / [facility] - DRUG SCREEN [id number] 01:41:00 Test Item Value Reference Range Interpretation Comments BENZO U (test code = Presumptive Positive Negative A 9804098466) MICHEL U (test code = Negative Negative 6751623840) AMPHET (test code = Negative Negative 4552438115) THC (test code = Negative Negative 9363997515) METHADONE (test code = Negative Negative 0405891475) Meth U (test code = Negative Negative 9425903254) OPIATES (test code = Negative Negative 3748978244) Cocaine Metabolite (test Negative Negative code = 4557930222) PROPOXY (test code = Negative Negative 2478399162) Tric U (test code = Negative Negative 4252729382) PCP (test code = Negative Negative 2925762577) OXYCOD (test code = Negative Negative 9762196471) TANESHA (test code = TANESHA) Urine Drug [...] testing). Lab Interpretation (test Abnormal code = 97330-0) [facility] TexasACETAMINOPHEN2021-01-06 01:37:00 Test Item Value Reference Range Interpretation Comments ACETAMINOP (test code = <10.0 10-30 L 9265330805) TANESHA (test code = TANESHA) Toxic: Greater than 200 ug/mL @ 4 hour post ingestion or greater than 50 ug/mL @ 12 hour post ingestion Lab Interpretation (test Abnormal code = 62690-7) [facility] TexasSALICYLATE2021-01-06 01:36:00 Test Item Value Reference Range Interpretation Comments SALICYLATE (test code <10 mg/L = 5678177727) TANESHA (test code = TANESHA) Therapeutic Range: ? Analgesic and Antipyretic Use ? 20-100 mg/L ? ? Anti-Inflammatory Use ? 100-250 mg/L Toxic Range: ? Greater than 300 mg/L [facility] TexasETHANOL2021-01-06 01:35:00 Test Item Value Reference Range Interpretation Comments ALCOHOL (test code = <10 mg/dL 6508044223) TANESHA (test code = TANESHA) <10 Vqvmwrrx73-549 Toxic>100 Depression of BATH HOUSE ATTENDANT>400 Fatalities Reported [facility] TexasAMMONIA, [id number] 01:12:00 Test Item Value Reference Range Interpretation Comments AMMONIA (test code = <9 9-33 L Slight hemolysis 5234192406) Lab Interpretation (test Abnormal code = 80036-5) [facility] TexasUrinalysis2019-09-02 16:31:00 Test Item Value Reference Range Interpretation Comments APPEARANCE (test code = Clear Clear 7015762797) COLOR (test code = Yellow Yellow 0598086310) PH (test code = 4.8-8.0 1243047302) SP GRAVITY (test code = <=1.005 1.003-1.030 0917555739) GLU U QUAL (test code = Negative Negative 5808583142) BLOOD (test code = Negative Negative 7806922865) KETONES (test code = Negative Negative 3566142007) PROTEIN (test code = Negative Negative 2887-8) UROBILIN (test code = 0.2 mg/dL See_Comment [Auto mated message] 6104695350) The system [employer] generated this result transmit carol reference range : 0-1.0 mg/dL. Th e reference range was not used to interpret this result as normal/abnormal . BILIRUBIN (test code = Negative Negative 7907891597) NITRITE (test code = Negative Negative 1712352210) LEUK EDINSON (test code = Negative Negative 3397116786) RBC/HPF (test code = See_Comment [Autom ated message] 3799928773) The system [employer] generated this result transmit carol reference range : 0 - 3 HPF. The refe rence range was not u sed to interpret th is result as normal/abnormal . WBC/HPF (test code = See_Comment [Autom ated message] 9039032510) The system [employer] generated this result transmit carol reference range : 0 - 5 HPF. The refe rence range was not u sed to interpret th is result as normal/abnormal . BACTERIA (test code = Negative Negative 1118272685) Lab Interpretation (test Normal code = 62475-9) [facility] Metabolic Panel (NA, K, CL, CO2, GLUCOSE, BUN, CREATININE, CA)2019-06-08 16:00:00 Test Item Value Reference Range Interpretation Comments NA (test code = 140 mmol/L 135-145 1818065088) K (test code = 3.7 mmol/L 3.5-5 7981427918) CL (test code = 99 mmol/L 98-108 4174053243) CO2 TOTAL (test code = 27 mmol/L 23-31 0160731721) AGAP (test code = 2-16 3617617520) BUN (test code = 12 mg/dL 7-23 5590849441) GLUCOSE (test code = 94 mg/dL 70-110 6347603091) CREATININE (test code 0.61 mg/dL 0.5-1.04 = 8718774542) CALCIUM (test code = 9.4 mg/dL 8.6-10.6 3345097313) eGFR Calculation mL/min/1.73m2 (Non-) (test code = 3306612306) eGFR Calculation mL/min/1.73m2 () (test code = 7948153025) TANESHA (test code = TANESHA) Association of [...] or urine or abnormalities in imaging tests). [facility] Lhsab0627-49-01 16:00:00 Test Item Value Reference Range Interpretation Comments LIPASE (test code = 5111756319) 120 U/L 0-220 Lab Interpretation (test code = Normal 81376-1) [facility] (ALB, T.PRO, BILI T, BU/BC, ALT, AST, ALK PHOS)2019-06-08 15:59:00 Test Item Value Reference Range Interpretation Comments TOTAL BILI (test code = 6124059504) 0.4 mg/dL 0.1-1.1 BILI UNCON (test code = 0072788250) 0.2 mg/dL 0.1-1.1 BILI CONJ (test code = 8707390275) 0.0 mg/dL 0-0.3 T PROTEIN (test code = 9217004372) 7.7 g/dL 6.3-8.2 ALBUMIN (test code = 3684402589) 4.8 g/dL 3.5-5 ALK PHOS (test code = 7655854976) 86 U/L 34-122 ALT(SGPT) (test code = 7339649375) 21 U/L 9-51 AST(SGOT) (test code = 7176519401) 28 U/L 13-40 Lab Interpretation (test code = Normal 41767-3) [facility] WITH RDJCYTTBOUFO7141-12-09 15:47:00 Test Item Value Reference Range Interpretation Comments WBC (test code = See_Comment [Automated message] 2202-2) The system [employer] generated this result transmitted ref erence range: 4.30 - 1 1.10 10*3/?L. The re ference range was not u sed to interpret this result as normal/abnor mal. RBC (test code = See_Comment [Automated message] 609-8) The system [employer] generated this result transmitted ref erence range: [...] RDW-SD (test code 43.8 fL 39-49.9 = 86733-2) RDW-CV (test code 12.6 % 12-15.5 = 788-0) PLT (test code = See_Comment [Automated message] 507-3) The system [employer] generated this result transmitted ref erence range: 166 - 35 8 10*3/?L. The re ference range was not u sed to interpret this result as normal/abnor mal. MPV (test code = 10.6 fL 9.5-12.9 11462-3) NRBC/100 WBC (test See_Comment [Automat ed message] code = 5189345384) The syste m which generated this result transmitted ref erence range: 0.0 - 10 .0 /100 WBCs. The refer ence range was not u sed to interpret this result as normal/abnor mal. NRBC x10^3 (test <0.01 See_Comment [Automated message] code = 6744244147) The syste m which generated this result transmitted ref erence range: 10*3/?L. The reference range was not used to interpr et this result as normal/abnormal . GRAN MAT (NEUT) % 50.2 % (test code = 770-8) IMM GRAN % (test 0.40 % code = 1867718160) LYMPH % (test code 33.0 % = 736-9) MONO % (test code 10.8 % = 5905-5) EOS % (test code = 4.3 % 713-8) BASO % (test code 1.3 % = 706-2) GRAN MAT 2.33 10*3/uL 1.88-7.09 x10^3(ANC) (test code = 6008138469) IMM GRAN x10^3 <0.03 0-0.06 (test code = 1540466822) LYMPH x10^3 (test 1.53 10*3/uL 1.32-3.29 code = 731-0) MONO x10^3 (test 0.50 10*3/uL 0.33-0.92 code = 742-7) EOS x10^3 (test 0.20 10*3/uL 0.03-0.39 code = 711-2) BASO x10^3 (test 0.06 10*3/uL 0.01-0.07 code = 704-7) [facility]CHEMI[facility]Y2012-[facility] 14:11:00 Test Item Value Reference Range Interpretation Comments Phosphorus (test code = Phosphorus) 3.3 2.5-4.5 N [facility] NorthwestEufzlsuRAJIBPEJM6021-40-65 14:11:00 Test Item Value Reference Range Interpretation Comments Magnesium Lvl (test code = Magnesium 2.0 1.8-2.4 N Lvl) [facility] [place], TXIytedhvPELWTHZHX3780-52-19 14:11:00 Test Item Value Reference Range Interpretation Comments A/G Ratio (test code = A/G Ratio) 1.3 0.7-1.[address] [facility] [place], TXLvuziywBEHQMFOIR7415-80-57 14:11:00 Test Item Value Reference Range Interpretation Comments Globulin (test code = Globulin) 2.9 2.0-4.[address] [facility] [place], TXEwklmosRSFWTDHBB5400-39-44 14:11:00 Test Item Value Reference Range Interpretation Comments Bili Indirect (test 0.1 See_Comment N [Automa carol message] The code = Bili Indirect) system which generated this result tra nsmitted reference range : <=1.0. The reference r irvin was not used to int erpret this result as normal/abnormal . [facility] [place], TXPrnfdtjYUEGMRFYY2000-47-45 14:11:00 Test Item Value Reference Range Interpretation Comments AST (test code = AST) 24 See_Comment N [Auto mated message] The system which ge nerated this result transmit carol reference range : <=37. The reference range was not used to interpr et this result as anoop l/abnormal. [facility] [place], TXNcgitdwETPTKNWMB8713-28-75 14:11:00 Test Item Value Reference Range Interpretation Comments ALT (test code = ALT) 35 See_Comment N [Auto mated message] The system which ge nerated this result transmit carol reference range : <=65. The reference range was not used to interpr et this result as anoop l/abnormal. [facility] [place], TXZdzpwoiYWBOHDVOP0288-70-46 14:11:00 Test Item Value Reference Range Interpretation Comments Albumin Lvl (test code = Albumin Lvl) 3.9 3.5-5.[address] [facility] [place], TXEdkbclgPZXWJUUXG3901-62-18 14:11:00 Test Item Value Reference Range Interpretation Comments Bili Total (test code = Bili Total) 0.2 0.2-1.[address] [facility] [place], TXXyqttgsETLBSMMOP2540-81-75 14:11:00 Test Item Value Reference Range Interpretation Comments Alk Phos (test code = Alk Phos) 88 39-[address] [facility] [place], TXDtxmaguJNMNLJWEW1390-28-63 14:11:00 Test Item Value Reference Range Interpretation Comments Bili Direct (test code 0.1 See_Comment N [Aut omated message] The = Bili Direct) system which generated this result tra nsmitted reference range : <=0.3. The reference r irvin was not used to int erpret this result as anoop l/abnormal. [facility] [place], TXYzajsemWOFPNFIRH4625-11-25 14:11:00 Test Item Value Reference Range Interpretation Comments Total Protein (test code = Total 6.8 6.4-8.4 N Protein) [facility] [place], TXNrbinppLMIZHHFVI7477-87-64 14:11:00 Test Item Value Reference Range Interpretation Comments Lipase Lvl (test code = Lipase Lvl) 120 73-[address] [facility] [place], TXUfonsanJZYNTQALT2035-17-92 14:11:00 Test Item Value Reference Range Interpretation Comments Calcium Lvl (test code = Calcium Lvl) 9.0 8.5-10.[address] [facility] [place], TXGrnouexEQMTPQRKL4119-51-81 14:11:00 Test Item Value Reference Range Interpretation Comments Chloride Lvl (test code = Chloride Lvl) 103 95-[address] [facility] [place], TXTkvtkdqLYINMZGWA0985-64-30 14:11:00 Test Item Value Reference Range Interpretation Comments CO2 (test code = CO2) 32 24-[address] [facility] [place], TXIowszclJIQGWPCGA7699-25-04 14:11:00 Test Item Value Reference Range Interpretation Comments Glucose Lvl (test code = Glucose Lvl) 96 70-[address] [facility] [place], TXOnulhwgPTULOIOEB4742-53-11 14:11:00 Test Item Value Reference Range Interpretation Comments BUN (test code = BUN) 9 7-[address] [facility] [place], TXMqmwetpQGVNBQEEG3439-21-36 14:11:00 Test Item Value Reference Range Interpretation Comments Creatinine Lvl (test code = Creatinine 0.8 0.5-1.4 N Lvl) [facility] [place], TXTgnohadQQMYJVXBW7332-15-87 14:11:00 Test Item Value Reference Range Interpretation Comments Potassium Lvl (test code = Potassium 3.9 3.5-5.1 N Lvl) [facility] [place], TXGvycdjcZRORISYGN7785-99-48 14:11:00 Test Item Value Reference Range Interpretation Comments Sodium Lvl (test code = Sodium Lvl) 142 135-[address] [facility] [place], TXYrfkbwnWQNGTYEFC5530-35-53 14:11:00 Test Item Value Reference Range Interpretation Comments AGAP (test code = AGAP) 10.9 10.0-20.0 N [facility] CenterCwxclcsYTLYZKMJGA7913-95-46 14:11:00 Test Item Value Reference Range Interpretation Comments Monocytes (test code = Monocytes) 8.1 2.0-12.0 N [facility] CenterNsxxgayNTKXWWXSMA7871-31-25 14:11:00 Test Item Value Reference Range Interpretation Comments Lymphocytes # (test code = Lymphocytes 1.8 1.0-5.5 N #) [facility] CenterQlncmtvWRMXQBVYGB3094-92-43 14:11:00 Test Item Value Reference Range Interpretation Comments Monocytes # (test code 0.4 See_Comment N [Aut omated message] The = Monocytes #) system which generated this result tra nsmitted reference range : <=0.8. The reference r irvin was not used to int erpret this result as normal/abnormal . [facility] CenterTnlmcwpESJXDBMPOJ9510-42-71 14:11:00 Test Item Value Reference Range Interpretation Comments Segs-Bands # (test code = Segs-Bands #) 2.9 1.5-8.1 N [facility] CenterUrhshxbMHSFIVCTGF5612-75-24 14:11:00 Test Item Value Reference Range Interpretation Comments Basophils # (test code 0.0 See_Comment N [Aut omated message] The = Basophils #) system which generated this result tra nsmitted reference range : <=0.2. The reference r irvin was not used to int erpret this result as normal/abnormal . [facility] CenterQkksasrZROHDPAFKG0736-60-24 14:11:00 Test Item Value Reference Range Interpretation Comments Eosinophils # (test code 0.1 See_Comment N [A utomated message] The = Eosinophils #) system [facility] h generated this result tra nsmitted reference range : <=0.5. The reference r irvin was not used to int erpret this result as normal/abnormal . [facility] CenterBjatqpbUMKXEQDHYW6238-86-97 14:11:00 Test Item Value Reference Range Interpretation Comments Lymphocytes (test code = Lymphocytes) 34.2 20.0-40.0 N [facility] CenterDgcmshiLABAOMDODI0768-37-23 14:11:00 Test Item Value Reference Range Interpretation Comments Segs (test code = Segs) 54.7 45.0-75.0 N [facility] CenterKmfgddjMUREVKJRKC8161-51-72 14:11:00 Test Item Value Reference Range Interpretation Comments Eosinophils (test code = 2.8 See_Comment N [A utomated message] The Eosinophils) system which ge nerated this result tra nsmitted reference range : <=4.0. The reference r irvin was not used to int erpret this result as normal/abnormal . [facility] CenterXzdmsvhOQGNTGTAPW3911-85-21 14:11:00 Test Item Value Reference Range Interpretation Comments Basophils (test code = 0.2 See_Comment N [Aut omated message] The Basophils) system which ge nerated this result tra nsmitted reference range : <=1.0. The reference r irvin was not used to int erpret this result as normal/abnormal . [facility] CenterSehwmaxGUWLCVHSFO8994-79-28 14:11:00 Test Item Value Reference Range Interpretation Comments MPV (test code = MPV) 8.6 7.4-10.4 N [facility] CenterZhegjppTAXCUKXJKM6065-73-61 14:11:00 Test Item Value Reference Range Interpretation Comments Hgb (test code = Hgb) 11.6 12.0-16.0 L [facility] CenterPohddohUKPOYVAKOX8005-75-83 14:11:00 Test Item Value Reference Range Interpretation Comments WBC (test code = WBC) 5.2 3.7-10.4 N [facility] CenterQbrinrfCDTPCEDDTL9785-44-04 14:11:00 Test Item Value Reference Range Interpretation Comments RBC (test code = RBC) 3.86 4.20-5.40 L [facility] CenterWjzntfxNFRJYJKIWK5752-84-35 14:11:00 Test Item Value Reference Range Interpretation Comments Platelet (test code = Platelet) 187 133-450 N [facility] CenterFghlfooJAJGSWVPBA3336-45-48 14:11:00 Test Item Value Reference Range Interpretation Comments RDW (test code = RDW) 13.5 11.5-14.5 N [facility] CenterLevqykeDMFSVRQLSS7908-46-58 14:11:00 Test Item Value Reference Range Interpretation Comments Hct (test code = Hct) 34.3 36.0-48.0 L [facility] CenterNpmiirtWIUAOHENUT6614-74-39 14:11:00 Test Item Value Reference Range Interpretation Comments MCHC (test code = MCHC) 33.7 32.0-36.0 N [facility] CenterQecujqzMYFCZYWTFI1365-18-30 14:11:00 Test Item Value Reference Range Interpretation Comments MCH (test code = MCH) 29.9 pg 27.0-31.0 N [facility]UvjyqxqJMSFDPXBTR7948-48-16 14:11:00 Test Item Value Reference Range Interpretation Comments MCV (test code = MCV) 88.8 81.0-99.0 N [facility] NorthwestKzxlgjoBTPNHFZXRC9846-37-43 14:11:00 Test Item Value Reference Range Interpretation Comments CDC-HIV 1/2 Ab (test Negative *NA*(02/14/2012 code = CDC-HIV 1/2 09:11:00) Ab) [facility] [place], TXNqsfzncNFLOIHYXR4171-47-17 14:11:00 Test Item Value Reference Range Interpretation Comments Albumin Lvl (test code = Albumin Lvl) 3.9 3.5-5.[address] [facility] [place], TXKewdqcyHOPOWXXNS1972-43-53 14:11:00 Test Item Value Reference Range Interpretation Comments Bili Total (test code = Bili Total) 0.2 0.2-1.[address] [facility] [place], TXQuqschaRLNKIWSDC3546-49-38 14:11:00 Test Item Value Reference Range Interpretation Comments Alk Phos (test code = Alk Phos) 88 39-[address] [facility] [place], TXPcuhczuJKXMRFLEA9703-94-74 14:11:00 Test Item Value Reference Range Interpretation Comments Bili Direct (test code 0.1 See_Comment N [Aut omated message] The = Bili Direct) system which generated this result tra nsmitted reference range : <=0.3. The reference r irvin was not used to int erpret this result as anoop l/abnormal. [facility] [place], TXNkyavjmHVDVNGFHB0252-57-91 14:11:00 Test Item Value Reference Range Interpretation Comments Total Protein (test code = Total 6.8 6.4-8.4 N Protein) [facility] [place], TXSwpwwqgIYNOYDVVK6044-80-93 14:11:00 Test Item Value Reference Range Interpretation Comments Lipase Lvl (test code = Lipase Lvl) 120 73-[address] [facility] [place], TXZrskjtkRNUFTYQCK0254-33-14 14:11:00 Test Item Value Reference Range Interpretation Comments Calcium Lvl (test code = Calcium Lvl) 9.0 8.5-10.[address] [facility] [place], TXPsphllfQSAZUKJWT7331-44-28 14:11:00 Test Item Value Reference Range Interpretation Comments Chloride Lvl (test code = Chloride Lvl) 103 95-[address] [facility] [place], TXOjpdwhvQKPYLSRWK6403-36-03 14:11:00 Test Item Value Reference Range Interpretation Comments CO2 (test code = CO2) 32 24-[address] [facility] [place], TXOpfadyeHJOLXHMGM7604-19-24 14:11:00 Test Item Value Reference Range Interpretation Comments Glucose Lvl (test code = Glucose Lvl) 96 70-[address] [facility] [place], TXRcrveggDTMQMFOHE4758-04-54 14:11:00 Test Item Value Reference Range Interpretation Comments BUN (test code = BUN) 9 7-[address] [facility] [place], TXGkajcpcWQLAJPNAT7222-32-42 14:11:00 Test Item Value Reference Range Interpretation Comments Creatinine Lvl (test code = Creatinine 0.8 0.5-1.4 N Lvl) [facility] [place], TXXmohtwrSULZYKMRX3519-95-83 14:11:00 Test Item Value Reference Range Interpretation Comments Potassium Lvl (test code = Potassium 3.9 3.5-5.1 N Lvl) [facility] [place], TXKnfivufJAYKGOPEO5311-54-10 14:11:00 Test Item Value Reference Range Interpretation Comments Sodium Lvl (test code = Sodium Lvl) 142 135-[address] [facility] [place], TXLovqfxdIJXOVFGYJ3833-34-01 14:11:00 Test Item Value Reference Range Interpretation Comments AGAP (test code = AGAP) 10.9 10.0-20.0 N [facility] CenterDxcysnyQYVYHSZMYR5050-46-59 14:11:00 Test Item Value Reference Range Interpretation Comments Monocytes (test code = Monocytes) 8.1 2.0-12.0 N [facility] CenterNvnvafqHJZXWBFOAV8269-09-21 14:11:00 Test Item Value Reference Range Interpretation Comments Lymphocytes # (test code = Lymphocytes 1.8 1.0-5.5 N #) [facility] CenterEpbdzuiRTYJHQIUNT1862-90-85 14:11:00 Test Item Value Reference Range Interpretation Comments Monocytes # (test code 0.4 See_Comment N [Aut omated message] The = Monocytes #) system which generated this result tra nsmitted reference range : <=0.8. The reference r irvin was not used to int erpret this result as normal/abnormal . [facility] CenterSnbtyaeAVFWRLLCQK6596-52-33 14:11:00 Test Item Value Reference Range Interpretation Comments Segs-Bands # (test code = Segs-Bands #) 2.9 1.5-8.1 N [facility] CenterZyyupufDZRIFHUKTK4733-64-73 14:11:00 Test Item Value Reference Range Interpretation Comments Basophils # (test code 0.0 See_Comment N [Aut omated message] The = Basophils #) system which generated this result tra nsmitted reference range : <=0.2. The reference r irvin was not used to int erpret this result as normal/abnormal . [facility] CenterFaxnbyoRHYJXGXGZT7009-56-27 14:11:00 Test Item Value Reference Range Interpretation Comments Eosinophils # (test code 0.1 See_Comment N [A utomated message] The = Eosinophils #) system whic h generated this result tra nsmitted reference range : <=0.5. The reference r irvin was not used to int erpret this result as normal/abnormal . [facility] CenterEwwudzyQKNJJWANFR0700-88-45 14:11:00 Test Item Value Reference Range Interpretation Comments Lymphocytes (test code = Lymphocytes) 34.2 20.0-40.0 N [facility] CenterOghuccoUHUUKNVCOS0378-36-90 14:11:00 Test Item Value Reference Range Interpretation Comments Segs (test code = Segs) 54.7 45.0-75.0 N [facility] CenterDpjrrsdDWRRFAREBE1843-84-15 14:11:00 Test Item Value Reference Range Interpretation Comments Eosinophils (test code = 2.8 See_Comment N [A utomated message] The Eosinophils) system which ge nerated this result tra nsmitted reference range : <=4.0. The reference r irvin was not used to int erpret this result as normal/abnormal . [facility] CenterFxyuldeWXDZZJMHZR8793-07-79 14:11:00 Test Item Value Reference Range Interpretation Comments Basophils (test code = 0.2 See_Comment N [Aut omated message] The Basophils) system which ge nerated this result tra nsmitted reference range : <=1.0. The reference r irvin was not used to int erpret this result as normal/abnormal . [facility] CenterUzcktgnKMYQRCGDEQ1062-83-16 14:11:00 Test Item Value Reference Range Interpretation Comments MPV (test code = MPV) 8.6 7.4-10.4 N [facility] CenterSiesudiPFMADJYYHB5338-43-13 14:11:00 Test Item Value Reference Range Interpretation Comments Hgb (test code = Hgb) 11.6 12.0-16.0 L [facility] CenterCbmstfbCSSBKZIAJX9741-55-83 14:11:00 Test Item Value Reference Range Interpretation Comments WBC (test code = WBC) 5.2 3.7-10.4 N [facility]QxxfeodAEVDPBWBOF6611-04-23 14:11:00 Test Item Value Reference Range Interpretation Comments RBC (test code = RBC) 3.86 4.20-5.40 L [facility] CenterYtxpxhhHBBKRXKZQY7783-46-40 14:11:00 Test Item Value Reference Range Interpretation Comments Platelet (test code = Platelet) 187 133-450 N [facility] CenterLfeksqhHBFEZDLUDE1396-99-59 14:11:00 Test Item Value Reference Range Interpretation Comments RDW (test code = RDW) 13.5 11.5-14.5 N [facility] CenterYuzkvsaJJAYNDPDEU3550-98-75 14:11:00 Test Item Value Reference Range Interpretation Comments Hct (test code = Hct) 34.3 36.0-48.0 L [facility] CenterKgtlsplOQGGYGOBFQ6951-70-25 14:11:00 Test Item Value Reference Range Interpretation Comments MCHC (test code = MCHC) 33.7 32.0-36.0 N [facility] CenterDuyvjpoARGLCANUII5120-76-55 14:11:00 Test Item Value Reference Range Interpretation Comments MCH (test code = MCH) 29.9 pg 27.0-31.0 N [facility] CenterRefcwyzMYDCCKFVKG9914-20-31 14:11:00 Test Item Value Reference Range Interpretation Comments MCV (test code = MCV) 88.8 81.0-99.0 N [facility] NorthwestAcylbwhHCQFYRYBXD8274-61-88 14:11:00 Test Item Value Reference Range Interpretation Comments CDC-HIV 1/2 Ab (test Negative *NA*(02/14/2012 code = CDC-HIV 1/2 09:11:00) Ab) [facility] [place], TXBvbidnfNPLOKROCQ7757-69-83 14:11:00 Test Item Value Reference Range Interpretation Comments Phosphorus (test code = Phosphorus) 3.3 2.5-4.[address] [facility] [place], TXQoujlzlEUFWPBIPU0894-27-59 14:11:00 Test Item Value Reference Range Interpretation Comments Magnesium Lvl (test code = Magnesium 2.0 1.8-2.4 N Lvl) [facility] [place], TXMilqjnuVNLQBXTER5647-52-32 14:11:00 Test Item Value Reference Range Interpretation Comments A/G Ratio (test code = A/G Ratio) 1.3 0.7-1.[address] [facility] [place], TXTmmlynzHBZEZDRSP2854-58-51 14:11:00 Test Item Value Reference Range Interpretation Comments Globulin (test code = Globulin) 2.9 2.0-4.[address] [facility] [place], TXUfadkmdTGEZTCIQJ2437-90-77 14:11:00 Test Item Value Reference Range Interpretation Comments Bili Indirect (test 0.1 See_Comment N [Automa carol message] The code = Bili Indirect) system which generated this result tra nsmitted reference range : <=1.0. The reference r irvin was not used to int erpret this result as normal/abnormal . [facility] [place], TXVdrbyehSBHVWCKOS2715-24-95 14:11:00 Test Item Value Reference Range Interpretation Comments AST (test code = AST) 24 See_Comment N [Auto mated message] The system which ge nerated this result transmit carol reference range : <=37. The reference range was not used to interpr et this result as anoop l/abnormal. [facility] [place], TXUxmiglvBLDUYFKJX3051-97-85 14:11:00 Test Item Value Reference Range Interpretation Comments ALT (test code = ALT) 35 See_Comment N [Auto mated message] The system which ge nerated this result transmit carol reference range : <=65. The reference range was not used to interpr et this result as anoop l/abnormal. [facility] [place], TXHyhukvdSZMRDNYUB0299-30-44 14:11:00 Test Item Value Reference Range Interpretation Comments Albumin Lvl (test code = Albumin Lvl) 3.9 3.5-5.[address] [facility] [place], TXDzwgleuRWHLRMOIJ3218-82-07 14:11:00 Test Item Value Reference Range Interpretation Comments Bili Total (test code = Bili Total) 0.2 0.2-1.[address] [facility] [place], TXFqlllwwISGQVQIGO8169-07-59 14:11:00 Test Item Value Reference Range Interpretation Comments Alk Phos (test code = Alk Phos) 88 39-[address] [facility] [place], TXPejxgnhPCKOMNKOJ9513-88-72 14:11:00 Test Item Value Reference Range Interpretation Comments Bili Direct (test code 0.1 See_Comment N [Aut omated message] The = Bili Direct) system which generated this result tra nsmitted reference range : <=0.3. The reference r irvin was not used to int erpret this result as anoop l/abnormal. [facility] [place], TXGecxfrgDYJJIBMLG8518-38-97 14:11:00 Test Item Value Reference Range Interpretation Comments Total Protein (test code = Total 6.8 6.4-8.4 N Protein) [facility] [place], TXGittsrtEYIXMYXTW5320-34-27 14:11:00 Test Item Value Reference Range Interpretation Comments Lipase Lvl (test code = Lipase Lvl) 120 73-[address] [facility] [place], TXOqyptbgRSAWBMLSZ6306-55-54 14:11:00 Test Item Value Reference Range Interpretation Comments Calcium Lvl (test code = Calcium Lvl) 9.0 8.5-10.[address] [facility] [place], TXSfzdqshPBWMKGOHM6081-80-38 14:11:00 Test Item Value Reference Range Interpretation Comments Phosphorus (test code = Phosphorus) 3.3 2.5-4.[address] [facility] [place], TXXpitzjvCPRFJDIZG2183-01-12 14:11:00 Test Item Value Reference Range Interpretation Comments Chloride Lvl (test code = Chloride Lvl) 103 95-[address] [facility] [place], TXRxjgpwbLGKIABJMQ7852-40-40 14:11:00 Test Item Value Reference Range Interpretation Comments CO2 (test code = CO2) 32 24-[address] [facility] [place], TXJdpzsgvEKPIURXVQ6789-82-42 14:11:00 Test Item Value Reference Range Interpretation Comments Glucose Lvl (test code = Glucose Lvl) 96 70-[address] [facility] [place], TXOwactycBJIWFHZFU5440-51-80 14:11:00 Test Item Value Reference Range Interpretation Comments BUN (test code = BUN) 9 7-[address] [facility] [place], TXTrcqwucDLGJGLBGT2195-67-02 14:11:00 Test Item Value Reference Range Interpretation Comments Creatinine Lvl (test code = Creatinine 0.8 0.5-1.4 N Lvl) [facility] [place], TXYcakatsMATTWHFSW2646-46-43 14:11:00 Test Item Value Reference Range Interpretation Comments Potassium Lvl (test code = Potassium 3.9 3.5-5.1 N Lvl) [facility] [place], TXXymwbqbXGUWPJLFH6182-60-28 14:11:00 Test Item Value Reference Range Interpretation Comments Sodium Lvl (test code = Sodium Lvl) 142 135-[address] [facility] [place], TXLpznnttZDDCNFBDE9093-81-20 14:11:00 Test Item Value Reference Range Interpretation Comments AGAP (test code = AGAP) 10.9 10.0-20.0 N [facility]KIISTXZBK8134-56-77 14:11:00 Test Item Value Reference Range Interpretation Comments Monocytes (test code = Monocytes) 8.1 2.0-12.0 N [facility] CenterDovmkrvWXJILOXLYJ6143-36-18 14:11:00 Test Item Value Reference Range Interpretation Comments Lymphocytes # (test code = Lymphocytes 1.8 1.0-5.5 N #) [facility] [place], TXUkigwnyOXIZIFNRF7775-09-21 14:11:00 Test Item Value Reference Range Interpretation Comments Magnesium Lvl (test code = Magnesium 2.0 1.8-2.4 N Lvl) [facility] CenterDzwjcbaQOLLGNVSDB0644-90-99 14:11:00 Test Item Value Reference Range Interpretation Comments Monocytes # (test code 0.4 See_Comment N [Aut omated message] The = Monocytes #) system which generated this result tra nsmitted reference range : <=0.8. The reference r irvin was not used to int erpret this result as normal/abnormal . [facility] CenterIwccdncSCEYXTBRVU0797-19-49 14:11:00 Test Item Value Reference Range Interpretation Comments Segs-Bands # (test code = Segs-Bands #) 2.9 1.5-8.1 N [facility] CenterDujmcwwSCKXOIQGVN3012-41-47 14:11:00 Test Item Value Reference Range Interpretation Comments Basophils # (test code 0.0 See_Comment N [Aut omated message] The = Basophils #) system which generated this result tra nsmitted reference range : <=0.2. The reference r irvin was not used to int erpret this result as normal/abnormal . [facility] CenterLuhitmtNAAPPBBYPJ7385-00-05 14:11:00 Test Item Value Reference Range Interpretation Comments Eosinophils # (test code 0.1 See_Comment N [A utomated message] The = Eosinophils #) system whic h generated this result tra nsmitted reference range : <=0.5. The reference r irvin was not used to int erpret this result as normal/abnormal . [facility] CenterUlemfwrWDWQXEYQKG9353-10-71 14:11:00 Test Item Value Reference Range Interpretation Comments Lymphocytes (test code = Lymphocytes) 34.2 20.0-40.0 N [facility] CenterVrjeeuaCFVJBYUHLM3377-23-38 14:11:00 Test Item Value Reference Range Interpretation Comments Segs (test code = Segs) 54.7 45.0-75.0 N [facility] CenterJpcwlqrNYTVDDWUPS8769-18-17 14:11:00 Test Item Value Reference Range Interpretation Comments Eosinophils (test code = 2.8 See_Comment N [A utomated message] The Eosinophils) system which ge nerated this result tra nsmitted reference range : <=4.0. The reference r irvin was not used to int erpret this result as normal/abnormal . [facility] CenterYvafholSDJEMHVHJD1767-06-45 14:11:00 Test Item Value Reference Range Interpretation Comments Basophils (test code = 0.2 See_Comment N [Aut omated message] The Basophils) system which ge nerated this result tra nsmitted reference range : <=1.0. The reference r irvin was not used to int erpret this result as normal/abnormal . [facility] CenterHhatzaaMBVXOERAGP8151-41-45 14:11:00 Test Item Value Reference Range Interpretation Comments MPV (test code = MPV) 8.6 7.4-10.4 N [facility] CenterXfkbsjfBDPZJCZMFI5792-60-27 14:11:00 Test Item Value Reference Range Interpretation Comments Hgb (test code = Hgb) 11.6 12.0-16.[address] [facility] [place], TXJmwscujGQOSMHROK6568-97-24 14:11:00 Test Item Value Reference Range Interpretation Comments A/G Ratio (test code = A/G Ratio) 1.3 0.7-1.6 N [facility] CenterUqfunmiMBFVCVQFZJ4505-96-31 14:11:00 Test Item Value Reference Range Interpretation Comments WBC (test code = WBC) 5.2 3.7-10.4 N [facility] CenterXlhvapgHLEVQUNKUF3384-08-48 14:11:00 Test Item Value Reference Range Interpretation Comments RBC (test code = RBC) 3.86 4.20-5.40 L [facility] CenterDlaycifDJAHTQAETV3823-59-63 14:11:00 Test Item Value Reference Range Interpretation Comments Platelet (test code = Platelet) 187 133-450 N [facility] CenterHondyukFMGKUWSRHY9775-10-50 14:11:00 Test Item Value Reference Range Interpretation Comments RDW (test code = RDW) 13.5 11.5-14.5 N [facility] CenterVsekbpfULVQMZZMIS4810-83-10 14:11:00 Test Item Value Reference Range Interpretation Comments Hct (test code = Hct) 34.3 36.0-48.0 L [facility] CenterJjlwffoJYKGNNZRBN2225-47-51 14:11:00 Test Item Value Reference Range Interpretation Comments MCHC (test code = MCHC) 33.7 32.0-36.0 N [facility] CenterAspgaelTQHSOBTCTD4765-25-44 14:11:00 Test Item Value Reference Range Interpretation Comments MCH (test code = MCH) 29.9 pg 27.0-31.0 N [facility] CenterQlaoiiyKCUYJLJHTP0345-68-99 14:11:00 Test Item Value Reference Range Interpretation Comments MCV (test code = MCV) 88.8 81.0-99.0 N [facility]CnhshmfTMLCGKKEWI0540-51-38 14:11:00 Test Item Value Reference Range Interpretation Comments CDC-HIV 1/2 Ab (test Negative *NA*(02/14/2012 code = CDC-HIV 1/2 09:11:00) Ab) [facility] [place], TXOfmgqduJUMRTGCWF4204-86-62 14:11:00 Test Item Value Reference Range Interpretation Comments Globulin (test code = Globulin) 2.9 2.0-4.[address] [facility] [place], TXIosjtkwXATHBLZDT0303-60-86 14:11:00 Test Item Value Reference Range Interpretation Comments Bili Indirect (test 0.1 See_Comment N [Automa carol message] The code = Bili Indirect) system which generated this result tra nsmitted reference range : <=1.0. The reference r irvin was not used to int erpret this result as normal/abnormal . [facility] [place], TXVknszuiJMHKRPGCR1200-10-50 14:11:00 Test Item Value Reference Range Interpretation Comments AST (test code = AST) 24 See_Comment N [Auto mated message] The system which ge nerated this result transmit carol reference range : <=37. The reference range was not used to interpr et this result as anoop l/abnormal. [facility] [place], TXLarwbuuCXZUEXVNN0609-30-13 14:11:00 Test Item Value Reference Range Interpretation Comments Phosphorus (test code = Phosphorus) 3.3 2.5-4.[address] [facility] [place], TXYaeqjbfSFUZQEKGU2391-15-58 14:11:00 Test Item Value Reference Range Interpretation Comments ALT (test code = ALT) 35 See_Comment N [Auto mated message] The system which ge nerated this result transmit carol reference range : <=65. The reference range was not used to interpr et this result as anoop l/abnormal. [facility] [place], TXYrnoquaJODXOQGAR3219-28-21 14:11:00 Test Item Value Reference Range Interpretation Comments Magnesium Lvl (test code = Magnesium 2.0 1.8-2.4 N Lvl) [facility] [place], TXZjsmhlkAGDMDBAQA9771-44-26 14:11:00 Test Item Value Reference Range Interpretation Comments A/G Ratio (test code = A/G Ratio) 1.3 0.7-1.[address] [facility] [place], TXKnlgrxeJAHMIWQGM7795-05-82 14:11:00 Test Item Value Reference Range Interpretation Comments Globulin (test code = Globulin) 2.9 2.0-4.[address] [facility] [place], TXIgzabqiOZBCONITD3757-79-87 14:11:00 Test Item Value Reference Range Interpretation Comments Bili Indirect (test 0.1 See_Comment N [Automa carol message] The code = Bili Indirect) system which generated this result tra nsmitted reference range : <=1.0. The reference r irvin was not used to int erpret this result as normal/abnormal . [facility] [place], TXRfdbwvvUYDKYHLCK7569-58-25 14:11:00 Test Item Value Reference Range Interpretation Comments AST (test code = AST) 24 See_Comment N [Auto mated message] The system which ge nerated this result transmit carol reference range : <=37. The reference range was not used to interpr et this result as anoop l/abnormal. [facility] [place], TXKxyimkkOUKJGRODS0512-35-94 14:11:00 Test Item Value Reference Range Interpretation Comments ALT (test code = ALT) 35 See_Comment N [Auto mated message] The system which ge nerated this result transmit carol reference range : <=65. The reference range was not used to interpr et this result as anoop l/abnormal. [facility] [place], TXXapccpnMHWDNURRL8540-67-76 14:11:00 Test Item Value Reference Range Interpretation Comments Albumin Lvl (test code = Albumin Lvl) 3.9 3.5-5.[address] [facility] [place], TXBpadrkoLIZPVAROE3913-04-43 14:11:00 Test Item Value Reference Range Interpretation Comments Bili Total (test code = Bili Total) 0.2 0.2-1.[address] [facility] [place], TXQwvyxgdYJQKQRWMO3497-62-30 14:11:00 Test Item Value Reference Range Interpretation Comments Alk Phos (test code = Alk Phos) 88 39-[address] [facility] [place], TXFdfayssRYEQNKPRL4307-46-82 14:11:00 Test Item Value Reference Range Interpretation Comments Bili Direct (test code 0.1 See_Comment N [Aut omated message] The = Bili Direct) system which generated this result tra nsmitted reference range : <=0.3. The reference r irvin was not used to int erpret this result as anoop l/abnormal. [facility] [place], TXVgbsttcLRZFODKPR0149-82-62 14:11:00 Test Item Value Reference Range Interpretation Comments Albumin Lvl (test code = Albumin Lvl) 3.9 3.5-5.[address] [facility] [place], TXAwwksqwEYSZMSVFN0440-88-15 14:11:00 Test Item Value Reference Range Interpretation Comments Total Protein (test code = Total 6.8 6.4-8.4 N Protein) [facility] [place], TXIrlgslaNPGCTSQDM4139-10-05 14:11:00 Test Item Value Reference Range Interpretation Comments Lipase Lvl (test code = Lipase Lvl) 120 73-[address] [facility] [place], TXVfcrnyyJZWHHPKLB9955-13-10 14:11:00 Test Item Value Reference Range Interpretation Comments Calcium Lvl (test code = Calcium Lvl) 9.0 8.5-10.[address] [facility] [place], TXXmhxdjcMQWNRLVTF3248-23-69 14:11:00 Test Item Value Reference Range Interpretation Comments Chloride Lvl (test code = Chloride Lvl) 103 95-[address] [facility] [place], TXNxtsbsuGIWKTCQAV3436-62-39 14:11:00 Test Item Value Reference Range Interpretation Comments CO2 (test code = CO2) 32 24-[address] [facility] [place], TXMfawghuQLMQSTSJP5142-87-33 14:11:00 Test Item Value Reference Range Interpretation Comments Glucose Lvl (test code = Glucose Lvl) 96 70-[address] [facility] [place], TXRajafvfUAEZOXRRW1927-97-87 14:11:00 Test Item Value Reference Range Interpretation Comments BUN (test code = BUN) 9 7-[address] [facility] [place], TXUydldsxHAQPSJPCL6787-60-95 14:11:00 Test Item Value Reference Range Interpretation Comments Creatinine Lvl (test code = Creatinine 0.8 0.5-1.4 N Lvl) [facility] [place], TXAgdxpmmMCFFZMMRO7858-79-00 14:11:00 Test Item Value Reference Range Interpretation Comments Potassium Lvl (test code = Potassium 3.9 3.5-5.1 N Lvl) [facility] [place], TXAlgcpxsHBOAZYQKP5236-59-76 14:11:00 Test Item Value Reference Range Interpretation Comments Sodium Lvl (test code = Sodium Lvl) 142 135-[address] [facility] [place], TXHavrfurREGXRNPGN2159-77-59 14:11:00 Test Item Value Reference Range Interpretation Comments Bili Total (test code = Bili Total) 0.2 0.2-1.[address] [facility] [place], TXUanptvpLUTZVIPOW1864-09-04 14:11:00 Test Item Value Reference Range Interpretation Comments AGAP (test code = AGAP) 10.9 10.0-20.0 N [facility] CenterEklmmvjZUJVUCOCWX7090-28-55 14:11:00 Test Item Value Reference Range Interpretation Comments Monocytes (test code = Monocytes) 8.1 2.0-12.0 N [facility] CenterKjxszriRIWQDRDNSV7392-05-72 14:11:00 Test Item Value Reference Range Interpretation Comments Lymphocytes # (test code = Lymphocytes 1.8 1.0-5.5 N #) [facility] CenterYegyagwSLRVDHFLEF8940-77-72 14:11:00 Test Item Value Reference Range Interpretation Comments Monocytes # (test code 0.4 See_Comment N [Aut omated message] The = Monocytes #) system which generated this result tra nsmitted reference range : <=0.8. The reference r irvin was not used to int erpret this result as normal/abnormal . [facility] CenterSpwxoztWYGWWJTMGT1273-80-86 14:11:00 Test Item Value Reference Range Interpretation Comments Segs-Bands # (test code = Segs-Bands #) 2.9 1.5-8.1 N [facility] CenterRmspbfrCVHAMPBXBY3869-49-31 14:11:00 Test Item Value Reference Range Interpretation Comments Basophils # (test code 0.0 See_Comment N [Aut omated message] The = Basophils #) system which generated this result tra nsmitted reference range : <=0.2. The reference r irvin was not used to int erpret this result as normal/abnormal . [facility] CenterNeejoyvTKKTGNRQLT1755-45-78 14:11:00 Test Item Value Reference Range Interpretation Comments Eosinophils # (test code 0.1 See_Comment N [A utomated message] The = Eosinophils #) system whic h generated this result tra nsmitted reference range : <=0.5. The reference r irvin was not used to int erpret this result as normal/abnormal . [facility] CenterKwobcwzEDUXDKDJLK2585-74-78 14:11:00 Test Item Value Reference Range Interpretation Comments Lymphocytes (test code = Lymphocytes) 34.2 20.0-40.0 N [facility] CenterWhfjnjjCKELLAEJIH3914-15-56 14:11:00 Test Item Value Reference Range Interpretation Comments Segs (test code = Segs) 54.7 45.0-75.0 N [facility] CenterFlytxikSGWYGGPZUD3051-82-13 14:11:00 Test Item Value Reference Range Interpretation Comments Eosinophils (test code = 2.8 See_Comment N [A utomated message] The Eosinophils) system which ge nerated this result tra nsmitted reference range : <=4.0. The reference r irvin was not used to int erpret this result as normal/abnormal . [facility] [place], TXHhodykmZSGVHWOZZ0167-43-86 14:11:00 Test Item Value Reference Range Interpretation Comments Alk Phos (test code = Alk Phos) 88 39-136 N [facility] CenterBdvkhnaBGKYLWKEZR3001-61-86 14:11:00 Test Item Value Reference Range Interpretation Comments Basophils (test code = 0.2 See_Comment N [Aut omated message] The Basophils) system which ge nerated this result tra nsmitted reference range : <=1.0. The reference r irvin was not used to int erpret this result as normal/abnormal . [facility] CenterEpkcxdzZHGTFQCKUL7835-47-93 14:11:00 Test Item Value Reference Range Interpretation Comments MPV (test code = MPV) 8.6 7.4-10.4 N [facility] CenterTgzrexoLRBVJBDKSD5318-33-82 14:11:00 Test Item Value Reference Range Interpretation Comments Hgb (test code = Hgb) 11.6 12.0-16.0 L [facility] CenterAlzqtzlWHJQSWBHBF5931-59-14 14:11:00 Test Item Value Reference Range Interpretation Comments WBC (test code = WBC) 5.2 3.7-10.4 N [facility] CenterAxaawgpADNKQBXUZZ3976-78-29 14:11:00 Test Item Value Reference Range Interpretation Comments RBC (test code = RBC) 3.86 4.20-5.40 L [facility] CenterHgchcydNPMJXDCTCA9320-01-33 14:11:00 Test Item Value Reference Range Interpretation Comments Platelet (test code = Platelet) 187 133-450 N [facility] CenterAovrutmCOKQCEFBKV0423-97-92 14:11:00 Test Item Value Reference Range Interpretation Comments RDW (test code = RDW) 13.5 11.5-14.5 N [facility] CenterCyxshwlZXCADAHMLI3306-75-97 14:11:00 Test Item Value Reference Range Interpretation Comments Hct (test code = Hct) 34.3 36.0-48.0 L [facility] CenterVwpzodtAMYYNNQZYD7616-67-90 14:11:00 Test Item Value Reference Range Interpretation Comments MCHC (test code = MCHC) 33.7 32.0-36.0 N [facility] CenterLfocrazVHQFRQDQRJ3824-70-74 14:11:00 Test Item Value Reference Range Interpretation Comments MCH (test code = MCH) 29.9 pg 27.0-31.[address] [facility] [place], TXWxkdabnHABFUFVUT6482-27-93 14:11:00 Test Item Value Reference Range Interpretation Comments Bili Direct (test code 0.1 See_Comment N [Aut omated message] The = Bili Direct) system which generated this result tra nsmitted reference range : <=0.3. The reference r irvin was not used to int erpret this result as anoop l/abnormal. [facility] CenterIawupnvZMTWTHSCAS9876-69-74 14:11:00 Test Item Value Reference Range Interpretation Comments MCV (test code = MCV) 88.8 81.0-99.0 N [facility]EylqcjhMHRNHUXKOH5916-69-77 14:11:00 Test Item Value Reference Range Interpretation Comments CDC-HIV 1/2 Ab (test Negative *NA*(02/14/2012 code = CDC-HIV 1/2 09:11:00) Ab) [facility] [place], TXMapucesOFHZUGKSU1076-35-66 14:11:00 Test Item Value Reference Range Interpretation Comments Total Protein (test code = Total 6.8 6.4-8.4 N Protein) [facility] [place], TXXnkcyftIZJFSPYQJ7178-33-69 14:11:00 Test Item Value Reference Range Interpretation Comments Lipase Lvl (test code = Lipase Lvl) 120 73-[address] [facility] [place], TXBcwfugbUODYSMJTS1897-78-46 14:11:00 Test Item Value Reference Range Interpretation Comments Calcium Lvl (test code = Calcium Lvl) 9.0 8.5-10.[address] [facility] [place], TXEdmxlbhULZPIQQAG0107-15-72 14:11:00 Test Item Value Reference Range Interpretation Comments Phosphorus (test code = Phosphorus) 3.3 2.5-4.[address] [facility] [place], TXWqlxqjsLNWJXMALH1230-68-87 14:11:00 Test Item Value Reference Range Interpretation Comments Magnesium Lvl (test code = Magnesium 2.0 1.8-2.4 N Lvl) [facility] [place], TXWgzwiufEMODGTKHY4929-80-20 14:11:00 Test Item Value Reference Range Interpretation Comments A/G Ratio (test code = A/G Ratio) 1.3 0.7-1.[address] [facility] [place], TXSnsaufbRXVWHKLXC9712-41-63 14:11:00 Test Item Value Reference Range Interpretation Comments Globulin (test code = Globulin) 2.9 2.0-4.[address] [facility] [place], TXCufnrxvARMJDGCBD5616-22-46 14:11:00 Test Item Value Reference Range Interpretation Comments Bili Indirect (test 0.1 See_Comment N [Automa carol message] The code = Bili Indirect) system which generated this result tra nsmitted reference range : <=1.0. The reference r irvin was not used to int erpret this result as normal/abnormal . [facility] [place], TXHtfiszdFGWZKFZAJ8128-45-68 14:11:00 Test Item Value Reference Range Interpretation Comments AST (test code = AST) 24 See_Comment N [Auto mated message] The system which ge nerated this result transmit carol reference range : <=37. The reference range was not used to interpr et this result as anoop l/abnormal. [facility] [place], TXOvqhjzdTDUBZLGOK6702-55-90 14:11:00 Test Item Value Reference Range Interpretation Comments ALT (test code = ALT) 35 See_Comment N [Auto mated message] The system which ge nerated this result transmit carol reference range : <=65. The reference range was not used to interpr et this result as anoop l/abnormal. [facility] [place], TXNiwxfpwHDTDRFSTP9342-82-37 14:11:00 Test Item Value Reference Range Interpretation Comments Albumin Lvl (test code = Albumin Lvl) 3.9 3.5-5.[address] [facility] [place], TXMjghkatJRNCYGQCE9867-71-68 14:11:00 Test Item Value Reference Range Interpretation Comments Chloride Lvl (test code = Chloride Lvl) 103 95-[address] [facility] [place], TXNpxqweuNCCUTGWEZ0100-84-42 14:11:00 Test Item Value Reference Range Interpretation Comments Bili Total (test code = Bili Total) 0.2 0.2-1.[address] [facility] [place], TXAtlhalfGIUERWTNK8813-64-39 14:11:00 Test Item Value Reference Range Interpretation Comments Alk Phos (test code = Alk Phos) 88 39-[address] [facility] [place], TXEulyjzvBXQGZMRUE2939-33-35 14:11:00 Test Item Value Reference Range Interpretation Comments Bili Direct (test code 0.1 See_Comment N [Aut omated message] The = Bili Direct) system which generated this result tra nsmitted reference range : <=0.3. The reference r irvin was not used to int erpret this result as anoop l/abnormal. [facility] [place], TXDonzwycDLGMKWKPR8315-47-98 14:11:00 Test Item Value Reference Range Interpretation Comments Total Protein (test code = Total 6.8 6.4-8.4 N Protein) [facility] [place], TXEeghtraOYIXTWFCK2020-86-65 14:11:00 Test Item Value Reference Range Interpretation Comments Lipase Lvl (test code = Lipase Lvl) 120 73-[address] [facility] [place], TXTxxopttIIBGPIOYA7020-25-99 14:11:00 Test Item Value Reference Range Interpretation Comments Calcium Lvl (test code = Calcium Lvl) 9.0 8.5-10.[address] [facility] [place], TXJpojjupHSNJCMTAG7813-40-20 14:11:00 Test Item Value Reference Range Interpretation Comments Chloride Lvl (test code = Chloride Lvl) 103 95-[address] [facility] [place], TXIoogycaXPIEDTGDF4904-65-59 14:11:00 Test Item Value Reference Range Interpretation Comments CO2 (test code = CO2) 32 24-[address] [facility] [place], [place]JhkvvtrLDGYWPJSK0997-85-13 14:11:00 Test Item Value Reference Range Interpretation Comments Glucose Lvl (test code = Glucose Lvl) 96 70-[address] [facility] [place], TXEbgzsajWSKDMRYGB1883-38-99 14:11:00 Test Item Value Reference Range Interpretation Comments BUN (test code = BUN) 9 7-[address] [facility] [place], TXEgtlvwtOFBAZREML5810-37-20 14:11:00 Test Item Value Reference Range Interpretation Comments CO2 (test code = CO2) 32 24-[address] [facility] [place], TXUfvcfubOSZCVOXXN9750-10-61 14:11:00 Test Item Value Reference Range Interpretation Comments Creatinine Lvl (test code = Creatinine 0.8 0.5-1.4 N Lvl) [facility] [place], TXFzecposVIBQOCOXF9958-31-97 14:11:00 Test Item Value Reference Range Interpretation Comments Potassium Lvl (test code = Potassium 3.9 3.5-5.1 N Lvl) [facility] [place], TXCioyqzfMPKVERXSY7443-87-44 14:11:00 Test Item Value Reference Range Interpretation Comments Sodium Lvl (test code = Sodium Lvl) 142 135-[address] [facility] [place], TXWheawclSZVIZSDRI7383-30-70 14:11:00 Test Item Value Reference Range Interpretation Comments AGAP (test code = AGAP) 10.9 10.0-20.0 N [facility] CenterKlbzzwkJJDILXVIZI9522-59-44 14:11:00 Test Item Value Reference Range Interpretation Comments Monocytes (test code = Monocytes) 8.1 2.0-12.0 N [facility] CenterRjipwzgIRWNTEHGBQ6486-55-73 14:11:00 Test Item Value Reference Range Interpretation Comments Lymphocytes # (test code = Lymphocytes 1.8 1.0-5.5 N #) [facility] CenterWsonlszFPNOHNMEUC0392-06-31 14:11:00 Test Item Value Reference Range Interpretation Comments Monocytes # (test code 0.4 See_Comment N [Aut omated message] The = Monocytes #) system which generated this result tra nsmitted reference range : <=0.8. The reference r irvin was not used to int erpret this result as normal/abnormal . [facility] CenterBcnzuysAUHMNPHVAD4161-12-03 14:11:00 Test Item Value Reference Range Interpretation Comments Segs-Bands # (test code = Segs-Bands #) 2.9 1.5-8.1 N [facility] CenterPjxcdzxVLOFYBMLTB1683-79-30 14:11:00 Test Item Value Reference Range Interpretation Comments Basophils # (test code 0.0 See_Comment N [Aut omated message] The = Basophils #) system which generated this result tra nsmitted reference range : <=0.2. The reference r irvin was not used to int erpret this result as normal/abnormal . [facility] CenterCqehyvnBLCVIXQOIC2586-75-67 14:11:00 Test Item Value Reference Range Interpretation Comments Eosinophils # (test code 0.1 See_Comment N [A utomated message] The = Eosinophils #) system whic h generated this result tra nsmitted reference range : <=0.5. The reference r irvin was not used to int erpret this result as normal/abnormal . [facility] [place], TXIrsqtekWWGHHWRYF4056-63-60 14:11:00 Test Item Value Reference Range Interpretation Comments Glucose Lvl (test code = Glucose Lvl) 96 70-99 N [facility] CenterKqvjsgbFWJVNEBGKM9238-11-62 14:11:00 Test Item Value Reference Range Interpretation Comments Lymphocytes (test code = Lymphocytes) 34.2 20.0-40.0 N [facility] CenterVatlznvJFLRPYDTLG9249-63-47 14:11:00 Test Item Value Reference Range Interpretation Comments Segs (test code = Segs) 54.7 45.0-75.0 N [facility] CenterRmsqzkeWIIWSXUJKD8391-52-22 14:11:00 Test Item Value Reference Range Interpretation Comments Eosinophils (test code = 2.8 See_Comment N [A utomated message] The Eosinophils) system which ge nerated this result tra nsmitted reference range : <=4.0. The reference r irvin was not used to int erpret this result as normal/abnormal . [facility] CenterBacpbofZZCAUPSITS6862-55-72 14:11:00 Test Item Value Reference Range Interpretation Comments Basophils (test code = 0.2 See_Comment N [Aut omated message] The Basophils) system which ge nerated this result tra nsmitted reference range : <=1.0. The reference r irvin was not used to int erpret this result as normal/abnormal . [facility] CenterWwprldvXQRBMPWHII0895-30-77 14:11:00 Test Item Value Reference Range Interpretation Comments MPV (test code = MPV) 8.6 7.4-10.4 N [facility] CenterWlzczkdJEUBKCAHRJ5927-72-06 14:11:00 Test Item Value Reference Range Interpretation Comments Hgb (test code = Hgb) 11.6 12.0-16.0 L [facility] CenterUwkyfosFZROMJACRP7687-54-30 14:11:00 Test Item Value Reference Range Interpretation Comments WBC (test code = WBC) 5.2 3.7-10.4 N [facility] CenterKcpgwyoEBFHFAILCS2170-99-03 14:11:00 Test Item Value Reference Range Interpretation Comments RBC (test code = RBC) 3.86 4.20-5.40 L [facility] CenterPjvfqelAOEUJWXKEW7128-15-34 14:11:00 Test Item Value Reference Range Interpretation Comments Platelet (test code = Platelet) 187 133-450 N [facility] CenterManhegzRPEZENJDTO7541-40-78 14:11:00 Test Item Value Reference Range Interpretation Comments RDW (test code = RDW) 13.5 11.5-14.[address] [facility] [place], TXJgzabquTNKQSUATQ3533-27-94 14:11:00 Test Item Value Reference Range Interpretation Comments BUN (test code = BUN) 9 7-22 N [facility] CenterSpwjpqySZGRMIITPX3324-65-91 14:11:00 Test Item Value Reference Range Interpretation Comments Hct (test code = Hct) 34.3 36.0-48.0 L [facility] CenterDeudlqqQUIHDMEJCW6011-92-57 14:11:00 Test Item Value Reference Range Interpretation Comments MCHC (test code = MCHC) 33.7 32.0-36.0 N [facility] CenterWmlzmybEMILAFBDGF3621-00-40 14:11:00 Test Item Value Reference Range Interpretation Comments MCH (test code = MCH) 29.9 pg 27.0-31.0 N [facility] CenterFfkwknoGTWKUHYWWD5086-83-98 14:11:00 Test Item Value Reference Range Interpretation Comments MCV (test code = MCV) 88.8 81.0-99.0 N [facility]ohaIWCIWISREF2467-52-90 14:11:00 Test Item Value Reference Range Interpretation Comments CDC-HIV 1/2 Ab (test Negative *NA*(02/14/2012 code = CDC-HIV 1/2 09:11:00) Ab) [facility] [place], TXJdlwdubPHGQXXWGE2806-67-85 14:11:00 Test Item Value Reference Range Interpretation Comments Creatinine Lvl (test code = Creatinine 0.8 0.5-1.4 N Lvl) [facility] [place], [place]PdpplkqJGDNNWRGN4282-32-07 14:11:00 Test Item Value Reference Range Interpretation Comments Potassium Lvl (test code = Potassium 3.9 3.5-5.1 N Lvl) [facility] [place], TXFqvjmejXYCYOUTBJ4708-58-04 14:11:00 Test Item Value Reference Range Interpretation Comments Sodium Lvl (test code = Sodium Lvl) 142 135-[address] [facility] [place], TXCvyltjhQWHGCDIVL0668-58-89 14:11:00 Test Item Value Reference Range Interpretation Comments Phosphorus (test code = Phosphorus) 3.3 2.5-4.[address] [facility] [place], TXWqbtchaKUQIJHNQQ5158-95-39 14:11:00 Test Item Value Reference Range Interpretation Comments Magnesium Lvl (test code = Magnesium 2.0 1.8-2.4 N Lvl) [facility] [place], TXGwopzxvUAPCBVRFY0956-52-77 14:11:00 Test Item Value Reference Range Interpretation Comments A/G Ratio (test code = A/G Ratio) 1.3 0.7-1.[address] [facility] [place], TXPehpefdFNFMAXUWM3912-86-02 14:11:00 Test Item Value Reference Range Interpretation Comments Globulin (test code = Globulin) 2.9 2.0-4.[address] [facility] [place], TXGaqnmrxZHNZGPXLC6740-19-19 14:11:00 Test Item Value Reference Range Interpretation Comments Bili Indirect (test 0.1 See_Comment N [Automa carol message] The code = Bili Indirect) system which generated this result tra nsmitted reference range : <=1.0. The reference r irvin was not used to int erpret this result as normal/abnormal . [facility] [place], TXBayrteeUAFZIOXSJ6855-98-66 14:11:00 Test Item Value Reference Range Interpretation Comments AGAP (test code = AGAP) 10.9 10.0-20.[address] [facility] [place], TXGkqakpjENXXMFQPB9725-97-36 14:11:00 Test Item Value Reference Range Interpretation Comments AST (test code = AST) 24 See_Comment N [Auto mated message] The system which ge nerated this result transmit carol reference range : <=37. The reference range was not used to interpr et this result as anoop l/abnormal. [facility] [place], TXEoxhqriTNIFEGNPO7137-02-31 14:11:00 Test Item Value Reference Range Interpretation Comments ALT (test code = ALT) 35 See_Comment N [Auto mated message] The system which ge nerated this result transmit carol reference range : <=65. The reference range was not used to interpr et this result as anoop l/abnormal. [facility] [place], TXJfwnwdbQIHTEYTZT7998-60-97 14:11:00 Test Item Value Reference Range Interpretation Comments Albumin Lvl (test code = Albumin Lvl) 3.9 3.5-5.[address] [facility] [place], TXMdhcczhBIBAXFZOA4376-71-74 14:11:00 Test Item Value Reference Range Interpretation Comments Bili Total (test code = Bili Total) 0.2 0.2-1.[address] [facility] [place], TXNaeptooSLUUDDHWT1527-65-76 14:11:00 Test Item Value Reference Range Interpretation Comments Alk Phos (test code = Alk Phos) 88 39-[address] [facility] [place], TXRfpiuyiRYXALPCQY5976-12-79 14:11:00 Test Item Value Reference Range Interpretation Comments Bili Direct (test code 0.1 See_Comment N [Aut omated message] The = Bili Direct) system which generated this result tra nsmitted reference range : <=0.3. The reference r irvin was not used to int erpret this result as anoop l/abnormal. [facility] [place], TXLlvhjooDTTBPZOWV0548-91-02 14:11:00 Test Item Value Reference Range Interpretation Comments Total Protein (test code = Total 6.8 6.4-8.4 N Protein) [facility] [place], TXVrxlyxvOJMYHGAFH2518-14-46 14:11:00 Test Item Value Reference Range Interpretation Comments Lipase Lvl (test code = Lipase Lvl) 120 73-[address] [facility] [place], TXWectqkpWJZUWAUWD7959-62-80 14:11:00 Test Item Value Reference Range Interpretation Comments Calcium Lvl (test code = Calcium Lvl) 9.0 8.5-10.[address] [facility] [place], TXTbjdojnIEUHWOETZ0510-47-29 14:11:00 Test Item Value Reference Range Interpretation Comments Chloride Lvl (test code = Chloride Lvl) 103 95-109 N [facility] CenterLeljfygHFWALBRMUL4641-10-97 14:11:00 Test Item Value Reference Range Interpretation Comments Monocytes (test code = Monocytes) 8.1 2.0-12.[address] [facility] [place], TXAawyofuHBBWZXKDJ9403-62-53 14:11:00 Test Item Value Reference Range Interpretation Comments CO2 (test code = CO2) 32 24-[address] [facility] [place], TXEenyjgkJMNIMNKTS0994-73-60 14:11:00 Test Item Value Reference Range Interpretation Comments Glucose Lvl (test code = Glucose Lvl) 96 70-[address] [facility] [place], TXWnflifeTOWXNHODR4136-29-88 14:11:00 Test Item Value Reference Range Interpretation Comments BUN (test code = BUN) 9 7-[address] [facility] [place], TXCmhcdlzJPAFZYVAJ2476-69-66 14:11:00 Test Item Value Reference Range Interpretation Comments Creatinine Lvl (test code = Creatinine 0.8 0.5-1.4 N Lvl) [facility] [place], TXKblhvkoXGFFKMBVB2584-79-24 14:11:00 Test Item Value Reference Range Interpretation Comments Potassium Lvl (test code = Potassium 3.9 3.5-5.1 N Lvl) [facility] [place], TXSvtdqfhDMANBRKXU3685-28-08 14:11:00 Test Item Value Reference Range Interpretation Comments Sodium Lvl (test code = Sodium Lvl) 142 135-[address] [facility] [place], TXIyanwchWZUKFLCTB7694-83-06 14:11:00 Test Item Value Reference Range Interpretation Comments AGAP (test code = AGAP) 10.9 10.0-20.0 N [facility] CenterTgnhzwcYFPKIJZVNI0757-19-00 14:11:00 Test Item Value Reference Range Interpretation Comments Monocytes (test code = Monocytes) 8.1 2.0-12.0 N [facility] CenterTysqnzmZUGYEHVNYE4399-49-44 14:11:00 Test Item Value Reference Range Interpretation Comments Lymphocytes # (test code = Lymphocytes 1.8 1.0-5.5 N #) [facility] CenterKkuwwykMNPTSQIQKH9427-08-60 14:11:00 Test Item Value Reference Range Interpretation Comments Monocytes # (test code 0.4 See_Comment N [Aut omated message] The = Monocytes #) system which generated this result tra nsmitted reference range : <=0.8. The reference r irvin was not used to int erpret this result as normal/abnormal . [facility] CenterBrblfzaNHOHPBTMKE8683-60-58 14:11:00 Test Item Value Reference Range Interpretation Comments Lymphocytes # (test code = Lymphocytes 1.8 1.0-5.5 N #) [facility] CenterIfsbabjPPSTEFANCM5314-66-58 14:11:00 Test Item Value Reference Range Interpretation Comments Segs-Bands # (test code = Segs-Bands #) 2.9 1.5-8.1 N [facility] CenterPqegfggWJLFUYLIQV1783-46-08 14:11:00 Test Item Value Reference Range Interpretation Comments Basophils # (test code 0.0 See_Comment N [Aut omated message] The = Basophils #) system which generated this result tra nsmitted reference range : <=0.2. The reference r irvin was not used to int erpret this result as normal/abnormal . [facility] CenterOamfbdyFILHVCASAZ9355-30-93 14:11:00 Test Item Value Reference Range Interpretation Comments Eosinophils # (test code 0.1 See_Comment N [A utomated message] The = Eosinophils #) system wh h generated this result tra nsmitted reference range : <=0.5. The reference r irvin was not used to int erpret this result as normal/abnormal . [facility] CenterEkvbjldWGJMXYAPCY4202-10-17 14:11:00 Test Item Value Reference Range Interpretation Comments Lymphocytes (test code = Lymphocytes) 34.2 20.0-40.0 N [facility] CenterLbhyxwyMJCHSENHVE9966-03-06 14:11:00 Test Item Value Reference Range Interpretation Comments Segs (test code = Segs) 54.7 45.0-75.0 N [facility] CenterMfuyczxCWJSYHKJFD8544-58-75 14:11:00 Test Item Value Reference Range Interpretation Comments Eosinophils (test code = 2.8 See_Comment N [A utomated message] The Eosinophils) system which ge nerated this result tra nsmitted reference range : <=4.0. The reference r irvin was not used to int erpret this result as normal/abnormal . [facility] CenterMmhquixIRRVJGUEOI9737-19-02 14:11:00 Test Item Value Reference Range Interpretation Comments Basophils (test code = 0.2 See_Comment N [Aut omated message] The Basophils) system which ge nerated this result tra nsmitted reference range : <=1.0. The reference r irvin was not used to int erpret this result as normal/abnormal . [facility] CenterIsrshbdIZXFSCUSRQ9675-73-99 14:11:00 Test Item Value Reference Range Interpretation Comments MPV (test code = MPV) 8.6 7.4-10.4 N [facility] CenterIhlkyedIDHJCLPZDF0165-23-80 14:11:00 Test Item Value Reference Range Interpretation Comments Hgb (test code = Hgb) 11.6 12.0-16.0 L [facility] CenterZorugvyBGWITGNHWK1471-18-37 14:11:00 Test Item Value Reference Range Interpretation Comments WBC (test code = WBC) 5.2 3.7-10.4 N [facility] CenterLurhkwfMGCFVFCWWN4098-68-51 14:11:00 Test Item Value Reference Range Interpretation Comments Monocytes # (test code 0.4 See_Comment N [Aut omated message] The = Monocytes #) system which generated this result tra nsmitted reference range : <=0.8. The reference r irvin was not used to int erpret this result as normal/abnormal . [facility] CenterUwwzbvmIEGNZXWZMA7419-04-53 14:11:00 Test Item Value Reference Range Interpretation Comments RBC (test code = RBC) 3.86 4.20-5.40 L [facility] CenterVdynktjOCJIUWKBKA5691-00-87 14:11:00 Test Item Value Reference Range Interpretation Comments Platelet (test code = Platelet) 187 133-450 N [facility] CenterZkrezshTZKKYGGGTF3919-82-85 14:11:00 Test Item Value Reference Range Interpretation Comments RDW (test code = RDW) 13.5 11.5-14.5 N [facility] CenterPnejjgiTHCFJONRHK6753-06-67 14:11:00 Test Item Value Reference Range Interpretation Comments Hct (test code = Hct) 34.3 36.0-48.0 L [facility] CenterMzvchqsSNHYXHOXVC6382-51-72 14:11:00 Test Item Value Reference Range Interpretation Comments MCHC (test code = MCHC) 33.7 32.0-36.0 N [facility] CenterXgxagbvAFWBONFHUD8166-02-47 14:11:00 Test Item Value Reference Range Interpretation Comments MCH (test code = MCH) 29.9 pg 27.0-31.0 N [facility] CenterMgtwysdXCQQGJYJTN8685-17-97 14:11:00 Test Item Value Reference Range Interpretation Comments MCV (test code = MCV) 88.8 81.0-99.0 N [facility]ww[facility]qvgSFBMZFJCXV6810-88-34 14:11:00 Test Item Value Reference Range Interpretation Comments CDC-HIV 1/2 Ab (test Negative *NA*(02/14/2012 code = CDC-HIV 1/2 09:11:00) Ab) [facility] CenterXpdyxsnVNBIDRWTKB1082-05-84 14:11:00 Test Item Value Reference Range Interpretation Comments Segs-Bands # (test code = Segs-Bands #) 2.9 1.5-8.1 N [facility] CenterKisyqfbCOADYAPGYN5616-69-64 14:11:00 Test Item Value Reference Range Interpretation Comments Basophils # (test code 0.0 See_Comment N [Aut omated message] The = Basophils #) system which generated this result tra nsmitted reference range : <=0.2. The reference r irvin was not used to int erpret this result as normal/abnormal . [facility] CenterOsaryxpEYKBETCKDT1328-44-79 14:11:00 Test Item Value Reference Range Interpretation Comments Eosinophils # (test code 0.1 See_Comment N [A utomated message] The = Eosinophils #) system whic h generated this result tra nsmitted reference range : <=0.5. The reference r irvin was not used to int erpret this result as normal/abnormal . [facility] CenterUoopzdeGCNHWZKMFD7681-61-75 14:11:00 Test Item Value Reference Range Interpretation Comments Lymphocytes (test code = Lymphocytes) 34.2 20.0-40.0 N [facility] CenterXbnbuukWGGWTMDUCW6193-35-03 14:11:00 Test Item Value Reference Range Interpretation Comments Segs (test code = Segs) 54.7 45.0-75.0 N [facility] CenterHjenuhxAEAJETZBUL5865-72-04 14:11:00 Test Item Value Reference Range Interpretation Comments Eosinophils (test code = 2.8 See_Comment N [A utomated message] The Eosinophils) system which ge nerated this result tra nsmitted reference range : <=4.0. The reference r irvin was not used to int erpret this result as normal/abnormal . [facility] CenterElwkostHYXSNEKACS2369-93-33 14:11:00 Test Item Value Reference Range Interpretation Comments Basophils (test code = 0.2 See_Comment N [Aut omated message] The Basophils) system which ge nerated this result tra nsmitted reference range : <=1.0. The reference r irvin was not used to int erpret this result as normal/abnormal . [facility] CenterIzyqztbUVZRDXWIJA1963-40-58 14:11:00 Test Item Value Reference Range Interpretation Comments MPV (test code = MPV) 8.6 7.4-10.4 N [facility] CenterGqbektgNHFRWTAKYR4642-73-23 14:11:00 Test Item Value Reference Range Interpretation Comments Hgb (test code = Hgb) 11.6 12.0-16.0 L [facility] CenterSplpxblMIAELDRRCX7905-56-78 14:11:00 Test Item Value Reference Range Interpretation Comments WBC (test code = WBC) 5.2 3.7-10.4 N [facility] CenterZlsquiqLDWWTEZELF8163-92-96 14:11:00 Test Item Value Reference Range Interpretation Comments RBC (test code = RBC) 3.86 4.20-5.40 L [facility] CenterIulbyvdZYVIKNJHRF1767-88-69 14:11:00 Test Item Value Reference Range Interpretation Comments Platelet (test code = Platelet) 187 133-450 N [facility] CenterGrmchgdORZEWMNDUS3084-35-93 14:11:00 Test Item Value Reference Range Interpretation Comments RDW (test code = RDW) 13.5 11.5-14.5 N [facility]NpmtpdxTHGWXJIEMB8333-34-82 14:11:00 Test Item Value Reference Range Interpretation Comments Hct (test code = Hct) 34.3 36.0-48.0 L [facility]AnngcweLGHJZNGZMU3531-03-34 14:11:00 Test Item Value Reference Range Interpretation Comments MCHC (test code = MCHC) 33.7 32.0-36.0 N [facility] NorthwestGfdrunqZEZRGJFQKA4959-55-92 14:11:00 Test Item Value Reference Range Interpretation Comments MCH (test code = MCH) 29.9 pg 27.0-31.0 N [facility] NorthwestBzybowqNQFBPIZXSY4925-99-27 14:11:00 Test Item Value Reference Range Interpretation Comments MCV (test code = MCV) 88.8 81.0-99.0 N [facility] NorthwestGnysphkFRJJFCHXZW3080-83-01 14:11:00 Test Item Value Reference Range Interpretation Comments CDC-HIV 1/2 Ab (test Negative *NA*(02/14/2012 code = CDC-HIV 1/2 09:11:00) Ab) [facility] [place], TXHjchlsrEDNHFAYHH1558-39-94 14:11:00 Test Item Value Reference Range Interpretation Comments Phosphorus (test code = Phosphorus) 3.3 2.5-4.5 N [facility]TqxoiqtEEPZNRRRU4748-93-58 14:11:00 Test Item Value Reference Range Interpretation Comments Magnesium Lvl (test code = Magnesium 2.0 1.8-2.4 N Lvl) [facility] [place], TXVtrbvmdYLOFLETVL2673-58-06 14:11:00 Test Item Value Reference Range Interpretation Comments A/G Ratio (test code = A/G Ratio) 1.3 0.7-1.6 N [facility] HospitalRmgfnakHUIAKSUEU3718-10-60 14:11:00 Test Item Value Reference Range Interpretation Comments Globulin (test code = Globulin) 2.9 2.0-4.0 N [facility] HospitalZefyzjqZRVSPKEWT7753-62-46 14:11:00 Test Item Value Reference Range Interpretation Comments Bili Indirect (test 0.1 See_Comment N [Automa carol message] The code = Bili Indirect) system which generated this result tra nsmitted reference range : <=1.0. The reference r irvin was not used to int erpret this result as normal/abnormal . [facility] HospitalZttkossFPZNXZEMT4886-06-55 14:11:00 Test Item Value Reference Range Interpretation Comments AST (test code = AST) 24 See_Comment N [Auto mated message] The system which ge nerated this result transmit carol reference range : <=37. The reference range was not used to interpr et this result as anoop l/abnormal. [facility] NorthwestCgaigivBFIUEZDXE2177-81-87 14:11:00 Test Item Value Reference Range Interpretation Comments ALT (test code = ALT) 35 See_Comment N [Auto mated message] The system which ge nerated this result transmit carol reference range : <=65. The reference range was not used to interpr et this result as anoop l/abnormal. [facility] HospitalJlkjkbkDJLYPHMVX9608-55-72 12:45:00 Test Item Value Reference Range Interpretation Comments U Preg (test code = U Negative (02/14/2012 N Preg) 07:45:00) [facility] NorthwestFwqrfumEXRNYIJKVK9020-75-17 12:45:00 Test Item Value Reference Range Interpretation Comments UA Urobilinogen (test code = UA 0.2 0.1-1.0 N Urobilinogen) [facility] NorthwestAxufzhsYWDJJLMJRI3006-66-36 12:45:00 Test Item Value Reference Range Interpretation Comments UA Blood (test code = Negative (02/14/2012 N UA Blood) 07:45:00) [facility] NorthwestDdcfpowMNUCDPDBAP0364-22-02 12:45:00 Test Item Value Reference Range Interpretation Comments UA Leuk Est (test code Small *ABN*(02/14/2012 A = UA Leuk Est) 07:45:00) [facility] NorthwestTkojepyMPEPSQVEQQ3341-18-83 12:45:00 Test Item Value Reference Range Interpretation Comments UA Nitrite (test code Negative (02/14/2012 N = UA Nitrite) 07:45:00) [facility] NorthwestXecctbbTSZCCXAQTL0072-42-92 12:45:00 Test Item Value Reference Range Interpretation Comments UA Protein (test code Negative (02/14/2012 N = UA Protein) 07:45:00) [facility] [facility] AmericaIzuoutpILITVRVYNK4909-42-38 12:45:00 Test Item Value Reference Range Interpretation Comments UA Ketones (test code Negative = UA Ketones) *NA*(02/14/2012 07:45:00) [facility]HhuxrkbHLOJQMGZUP7522-91-55 12:45:00 Test Item Value Reference Range Interpretation Comments UA Spec Grav (test code = UA Spec 1.005 1 Grav) [facility] HospitalBobiofkKZGCGQFRQG1521-28-55 12:45:00 Test Item Value Reference Range Interpretation Comments UA Glucose (test code Negative (02/14/2012 N = UA Glucose) 07:45:00) [facility] HospitalQuzkfxgPYBIFDQRLF2693-98-18 12:45:00 Test Item Value Reference Range Interpretation Comments UA Bili (test code = Negative *NA*(02/14/2012 UA Bili) 07:45:00) [facility] HospitalEnymkfpUIAHFZAGLL0301-13-36 12:45:00 Test Item Value Reference Range Interpretation Comments UA pH (test code = UA pH) 7.5 1 5.0-8.0 N [facility] HospitalDomecjmNBASQKMACF8337-98-19 12:45:00 Test Item Value Reference Range Interpretation Comments UA Turbidity (test code = Clear (02/14/2012 N UA Turbidity) 07:45:00) [facility] HospitalWumphubKVVOLGDMHL8966-22-18 12:45:00 Test Item Value Reference Range Interpretation Comments UA Color (test code = Yellow *NA*(02/14/2012 UA Color) 07:45:00) [facility] HospitalIaxpeqtRQDGWYJHUP8434-75-08 12:45:00 Test Item Value Reference Range Interpretation Comments UA Bacteria (test code = None Seen (02/14/2012 N UA Bacteria) 07:45:00) [facility] HospitalAzkvblwAZPWKEKKCE2779-02-26 12:45:00 Test Item Value Reference Range Interpretation Comments Micro? (test code = Performed (02/14/2012 N Micro?) 07:45:00) [facility] HospitalCpttdntHPWKYYVUIF4270-61-27 12:45:00 Test Item Value Reference Range Interpretation Comments UA WBC (test code = UA 0-2 /HPF (02/14/2012 N WBC) 07:45:00) [facility] HospitalYukttjlSUOUHTFYZN2223-40-80 12:45:00 Test Item Value Reference Range Interpretation Comments UA Sq Epi (test code = Rare /LPF (02/14/2012 N UA Sq Epi) 07:45:00) [facility] AmericaMosroopDRWZXMJAWK4764-95-60 12:45:00 Test Item Value Reference Range Interpretation Comments UA RBC (test None Seen See_Comment N [Automated mes brenda] code = UA RBC) (02/14/2012 The system wh ich 07:45:00) generated this result transmitted ref erence range: <=2. The reference range was not used to int erpret this result as normal/abnormal . [facility] NorthwestZgchllmYPERYFNOG0084-06-87 12:45:00 Test Item Value Reference Range Interpretation Comments U Preg (test code = U Negative (02/14/2012 N Preg) 07:45:00) [facility]DhrpbeqLGJLZTIFQZ6755-79-75 12:45:00 Test Item Value Reference Range Interpretation Comments UA Urobilinogen (test code = UA 0.2 0.1-1.0 N Urobilinogen) [facility] NorthwestRvxvzryOXSMPGMVQS9533-89-49 12:45:00 Test Item Value Reference Range Interpretation Comments UA Blood (test code = Negative (02/14/2012 N UA Blood) 07:45:00) [facility] NorthwestLsyjszyTFFUCJTUOH6394-40-90 12:45:00 Test Item Value Reference Range Interpretation Comments UA Leuk Est (test code Small *ABN*(02/14/2012 A = UA Leuk Est) 07:45:00) [facility] HospitalZwlcxwiQRRFLMEMXX0951-02-91 12:45:00 Test Item Value Reference Range Interpretation Comments UA Nitrite (test code Negative (02/14/2012 N = UA Nitrite) 07:45:00) [facility] HospitalXjpbysuQFRCZECRHA3850-86-56 12:45:00 Test Item Value Reference Range Interpretation Comments UA Protein (test code Negative (02/14/2012 N = UA Protein) 07:45:00) [facility] HospitalHjsdcftHGLXLQSYOQ7431-73-01 12:45:00 Test Item Value Reference Range Interpretation Comments UA Ketones (test code Negative = UA Ketones) *NA*(02/14/2012 07:45:00) [facility] NorthwestQrabrgnJBUHTYEEJX4630-42-58 12:45:00 Test Item Value Reference Range Interpretation Comments UA Spec Grav (test code = UA Spec 1.005 1 Grav) [facility] NorthwestHqzwvraQIOOWAITWX5186-67-91 12:45:00 Test Item Value Reference Range Interpretation Comments UA Glucose (test code Negative (02/14/2012 N = UA Glucose) 07:45:00) [facility] HospitalVudqtljINCWUIVUWC3617-80-83 12:45:00 Test Item Value Reference Range Interpretation Comments UA Bili (test code = Negative *NA*(02/14/2012 UA Bili) 07:45:00) [facility] YcerenkKJKYKXIWBL5543-27-54 12:45:00 Test Item Value Reference Range Interpretation Comments UA pH (test code = UA pH) 7.5 1 5.0-8.0 N [facility] HospitalJxzgzfeVTFBWVQREQ5652-69-90 12:45:00 Test Item Value Reference Range Interpretation Comments UA Turbidity (test code = Clear (02/14/2012 N UA Turbidity) 07:45:00) [facility] HospitalNctczrjKSXLHBUFJY9971-77-30 12:45:00 Test Item Value Reference Range Interpretation Comments UA Color (test code = Yellow *NA*(02/14/2012 UA Color) 07:45:00) [facility] HospitalSgvyljtKAVBHPJPIY0170-24-53 12:45:00 Test Item Value Reference Range Interpretation Comments UA Bacteria (test code = None Seen (02/14/2012 N UA Bacteria) 07:45:00) [facility] HospitalGtpnrunQEPRFKHTBW2046-46-98 12:45:00 Test Item Value Reference Range Interpretation Comments Micro? (test code = Performed (02/14/2012 N Micro?) 07:45:00) [facility] HospitalHyyqmdjSZHZRUSMJD4268-46-30 12:45:00 Test Item Value Reference Range Interpretation Comments UA WBC (test code = UA 0-2 /HPF (02/14/2012 N WBC) 07:45:00) [facility] HospitalXsuhywaGJCIPAIFYI4578-05-40 12:45:00 Test Item Value Reference Range Interpretation Comments UA Sq Epi (test code = Rare /LPF (02/14/2012 N UA Sq Epi) 07:45:00) [facility] HospitalHeucxfnMWMEKVPJNU6812-18-24 12:45:00 Test Item Value Reference Range Interpretation Comments UA RBC (test None Seen See_Comment N [Automated mes brenda] code = UA RBC) (02/14/2012 The system wh ich 07:45:00) generated this result transmitted ref erence range: <=2. The reference range was not used to int erpret this result as normal/abnormal . [facility] HospitalEkmhiaaIWIPBRNIL0296-37-76 12:45:00 Test Item Value Reference Range Interpretation Comments U Preg (test code = U Negative (02/14/2012 N Preg) 07:45:00) [facility] HospitalErwalmqYLQZILLHNJ6225-98-89 12:45:00 Test Item Value Reference Range Interpretation Comments UA Urobilinogen (test code = UA 0.2 0.1-1.0 N Urobilinogen) [facility] HospitalRqvnwvyXGPSTMKQUM4492-75-45 12:45:00 Test Item Value Reference Range Interpretation Comments UA Blood (test code = Negative (02/14/2012 N UA Blood) 07:45:00) [facility] AmericaPcsygxyVHIBQYPMJW6355-51-96 12:45:00 Test Item Value Reference Range Interpretation Comments UA Leuk Est (test code Small *ABN*(02/14/2012 A = UA Leuk Est) 07:45:00) [facility] HospitalOojrzzvAGDRDOMUYX3298-97-44 12:45:00 Test Item Value Reference Range Interpretation Comments UA Nitrite (test code Negative (02/14/2012 N = UA Nitrite) 07:45:00) [facility] HospitalQafnrwoBYXSCTGBHP1177-67-95 12:45:00 Test Item Value Reference Range Interpretation Comments UA Protein (test code Negative (02/14/2012 N = UA Protein) 07:45:00) [facility] HospitalOvsxafwHOZVRZBSBB4826-18-68 12:45:00 Test Item Value Reference Range Interpretation Comments UA Ketones (test code Negative = UA Ketones) *NA*(02/14/2012 07:45:00) [facility] HospitalDsrcfejBESCEVEGNN6706-44-66 12:45:00 Test Item Value Reference Range Interpretation Comments UA Spec Grav (test code = UA Spec 1.005 1 Grav) [facility] HospitalPxfslykUGHRUQIVLA9468-48-63 12:45:00 Test Item Value Reference Range Interpretation Comments UA Glucose (test code Negative (02/14/2012 N = UA Glucose) 07:45:00) [facility] HospitalWwvpsexHRORVNMMBX0335-28-66 12:45:00 Test Item Value Reference Range Interpretation Comments UA Bili (test code = Negative *NA*(02/14/2012 UA Bili) 07:45:00) [facility] HospitalIilmdutWZDFSTMBHK3382-56-12 12:45:00 Test Item Value Reference Range Interpretation Comments UA pH (test code = UA pH) 7.5 1 5.0-8.0 N [facility] AmericaLsxqumkDDPYRIAOHD8301-04-28 12:45:00 Test Item Value Reference Range Interpretation Comments UA Turbidity (test code = Clear (02/14/2012 N UA Turbidity) 07:45:00) [facility] HospitalRwjtxnfBCWOMHTTGF6907-48-86 12:45:00 Test Item Value Reference Range Interpretation Comments UA Color (test code = Yellow *NA*(02/14/2012 UA Color) 07:45:00) [facility] HospitalGakyzxcREEJEUESJT6986-24-33 12:45:00 Test Item Value Reference Range Interpretation Comments UA Bacteria (test code = None Seen (02/14/2012 N UA Bacteria) 07:45:00) [facility] HospitalEcfziijQZKSOKSTMI6717-13-21 12:45:00 Test Item Value Reference Range Interpretation Comments Micro? (test code = Performed (02/14/2012 N Micro?) 07:45:00) [facility] HospitalMjjkirsDPWEWEYCCW4517-87-70 12:45:00 Test Item Value Reference Range Interpretation Comments UA WBC (test code = UA 0-2 /HPF (02/14/2012 N WBC) 07:45:00) [facility] HospitalYtxawkuQXHDCONDVH3319-21-54 12:45:00 Test Item Value Reference Range Interpretation Comments UA Sq Epi (test code = Rare /LPF (02/14/2012 N UA Sq Epi) 07:45:00) [facility] HospitalMvtifvqZXCJMHMUGW5198-83-03 12:45:00 Test Item Value Reference Range Interpretation Comments UA RBC (test None Seen See_Comment N [Automated mes brenda] code = UA RBC) (02/14/2012 The system ich 07:45:00) generated this result transmitted ref erence range: <=2. The reference range was not used to int erpret this result as normal/abnormal . [facility] HospitalCfkhwlbNJFAXCYHL3259-71-11 12:45:00 Test Item Value Reference Range Interpretation Comments U Preg (test code = U Negative (02/14/2012 N Preg) 07:45:00) [facility] HospitalHozriscLOZFKYIQEB9928-85-46 12:45:00 Test Item Value Reference Range Interpretation Comments UA Urobilinogen (test code = UA 0.2 0.1-1.0 N Urobilinogen) [facility] HospitalErjqginQSBNWSKFMH4705-29-93 12:45:00 Test Item Value Reference Range Interpretation Comments UA Blood (test code = Negative (02/14/2012 N UA Blood) 07:45:00) [facility] AmericaNnpxlrnMSGOWQYQLK4661-74-49 12:45:00 Test Item Value Reference Range Interpretation Comments UA Leuk Est (test code Small *ABN*(02/14/2012 A = UA Leuk Est) 07:45:00) [facility] HospitalWwyianuWJNXRCPSIT8153-02-08 12:45:00 Test Item Value Reference Range Interpretation Comments UA Nitrite (test code Negative (02/14/2012 N = UA Nitrite) 07:45:00) [facility] HospitalIsepjswXWTSOFJXSS6930-20-79 12:45:00 Test Item Value Reference Range Interpretation Comments UA Protein (test code Negative (02/14/2012 N = UA Protein) 07:45:00) [facility] HospitalLgfazawTDABGFYHJV9734-74-12 12:45:00 Test Item Value Reference Range Interpretation Comments UA Ketones (test code Negative = UA Ketones) *NA*(02/14/2012 07:45:00) [facility] HospitalGcnzqeoGMBOEMABKS2450-00-17 12:45:00 Test Item Value Reference Range Interpretation Comments UA Spec Grav (test code = UA Spec 1.005 1 Grav) [facility] HospitalRpdggobNVXJTQSNJY5080-67-76 12:45:00 Test Item Value Reference Range Interpretation Comments UA Glucose (test code Negative (02/14/2012 N = UA Glucose) 07:45:00) [facility] HospitalPbxuvuvXTHJPPVPYU9865-68-48 12:45:00 Test Item Value Reference Range Interpretation Comments UA Bili (test code = Negative *NA*(02/14/2012 UA Bili) 07:45:00) [facility] HospitalOcyypgbRDAMGZALFF9069-69-10 12:45:00 Test Item Value Reference Range Interpretation Comments UA pH (test code = UA pH) 7.5 1 5.0-8.0 N [facility] HospitalWkuudtzEMLWKHIBVX1762-48-40 12:45:00 Test Item Value Reference Range Interpretation Comments UA Turbidity (test code = Clear (02/14/2012 N UA Turbidity) 07:45:00) [facility] HospitalXjzfbkpJGYLWNMMCP9187-24-98 12:45:00 Test Item Value Reference Range Interpretation Comments UA Color (test code = Yellow *NA*(02/14/2012 UA Color) 07:45:00) [facility] HospitalUpaajduHCDOIMVBXX9101-33-59 12:45:00 Test Item Value Reference Range Interpretation Comments UA Bacteria (test code = None Seen (02/14/2012 N UA Bacteria) 07:45:00) [facility] HospitalQsvasgaTEKWGJEXZL7178-49-55 12:45:00 Test Item Value Reference Range Interpretation Comments Micro? (test code = Performed (02/14/2012 N Micro?) 07:45:00) [facility] HospitalGahrnfxTCGKWBGJNG0239-88-78 12:45:00 Test Item Value Reference Range Interpretation Comments UA WBC (test code = UA 0-2 /HPF (02/14/2012 N WBC) 07:45:00) [facility] HospitalJprndglIVUGPPSAQC6758-29-14 12:45:00 Test Item Value Reference Range Interpretation Comments UA Sq Epi (test code = Rare /LPF (02/14/2012 N UA Sq Epi) 07:45:00) [facility] HospitalPjbrsoeWRNHCAJKLE0572-58-56 12:45:00 Test Item Value Reference Range Interpretation Comments UA RBC (test None Seen See_Comment N [Automated mes brenda] code = UA RBC) (02/14/2012 The system wh ich 07:45:00) generated this result transmitted ref erence range: <=2. The reference range was not used to int erpret this result as normal/abnormal . [facility] HospitalXjuaadiZDGMCOTBO7669-50-32 12:45:00 Test Item Value Reference Range Interpretation Comments U Preg (test code = U Negative (02/14/2012 N Preg) 07:45:00) [facility] HospitalMpuoqjyPLSTUEDIYX6475-28-08 12:45:00 Test Item Value Reference Range Interpretation Comments UA Urobilinogen (test code = UA 0.2 0.1-1.0 N Urobilinogen) [facility] HospitalDzumzuqNLMLDOCQAO4488-28-84 12:45:00 Test Item Value Reference Range Interpretation Comments UA Blood (test code = Negative (02/14/2012 N UA Blood) 07:45:00) [facility] HospitalAjgrkcpAZCINHOGEU3231-98-09 12:45:00 Test Item Value Reference Range Interpretation Comments UA Leuk Est (test code Small *ABN*(02/14/2012 A = UA Leuk Est) 07:45:00) [facility] HospitalZruptvkOTFYOLKBBW9050-02-73 12:45:00 Test Item Value Reference Range Interpretation Comments UA Nitrite (test code Negative (02/14/2012 N = UA Nitrite) 07:45:00) [facility] AmericaZpudfutUNVHDLBPXA2834-68-86 12:45:00 Test Item Value Reference Range Interpretation Comments UA Protein (test code Negative (02/14/2012 N = UA Protein) 07:45:00) [facility] HospitalFmfrksyEMCFQJJQMJ9298-80-53 12:45:00 Test Item Value Reference Range Interpretation Comments UA Ketones (test code Negative = UA Ketones) *NA*(02/14/2012 07:45:00) [facility] HospitalGheuljhKIFQMOFTRP8591-99-63 12:45:00 Test Item Value Reference Range Interpretation Comments UA Spec Grav (test code = UA Spec 1.005 1 Grav) [facility] HospitalEpetjppCWJQBUGWAG9314-24-58 12:45:00 Test Item Value Reference Range Interpretation Comments UA Glucose (test code Negative (02/14/2012 N = UA Glucose) 07:45:00) [facility] HospitalEihnfqtBWXDEOLZQT6823-87-82 12:45:00 Test Item Value Reference Range Interpretation Comments UA Bili (test code = Negative *NA*(02/14/2012 UA Bili) 07:45:00) [facility] HospitalCymbfrvJJXXEEZRSH9886-50-23 12:45:00 Test Item Value Reference Range Interpretation Comments UA pH (test code = UA pH) 7.5 1 5.0-8.0 N [facility] HospitalAsrggpzEMGLLWWEHT8103-52-07 12:45:00 Test Item Value Reference Range Interpretation Comments UA Turbidity (test code = Clear (02/14/2012 N UA Turbidity) 07:45:00) [facility] HospitalXfzbiozWZQRDEMKKE4301-04-73 12:45:00 Test Item Value Reference Range Interpretation Comments UA Color (test code = Yellow *NA*(02/14/2012 UA Color) 07:45:00) [facility] HospitalNbubrcbDCGZMGUFWC8245-78-76 12:45:00 Test Item Value Reference Range Interpretation Comments UA Bacteria (test code = None Seen (02/14/2012 N UA Bacteria) 07:45:00) [facility] HospitalRyhtbewBGIEZUNHHP9209-05-34 12:45:00 Test Item Value Reference Range Interpretation Comments Micro? (test code = Performed (02/14/2012 N Micro?) 07:45:00) [facility] HospitalKzpngqfOHRTPSTPQU7080-70-23 12:45:00 Test Item Value Reference Range Interpretation Comments UA WBC (test code = UA 0-2 /HPF (02/14/2012 N WBC) 07:45:00) [facility] HospitalWkhduwrXSGVAMILXH5621-72-12 12:45:00 Test Item Value Reference Range Interpretation Comments UA Sq Epi (test code = Rare /LPF (02/14/2012 N UA Sq Epi) 07:45:00) [facility] NorthwestJtxolnqMBMECRYLHU1756-10-24 12:45:00 Test Item Value Reference Range Interpretation Comments UA RBC (test None Seen See_Comment N [Automated mes brenda] code = UA RBC) (02/14/2012 The system wh ich 07:45:00) generated this result transmitted ref erence range: <=2. The reference range was not used to int erpret this result as normal/abnormal . [facility] NorthwestTjqajxsVWJGTYPVH4443-25-39 12:45:00 Test Item Value Reference Range Interpretation Comments U Preg (test code = U Negative (02/14/2012 N Preg) 07:45:00) [facility] HospitalGwlxtbyTERBIUTNUK9724-62-56 12:45:00 Test Item Value Reference Range Interpretation Comments UA Urobilinogen (test code = UA 0.2 0.1-1.0 N Urobilinogen) [facility] NorthwestQrpbsgjCXNUMDCDCU2233-14-91 12:45:00 Test Item Value Reference Range Interpretation Comments UA Blood (test code = Negative (02/14/2012 N UA Blood) 07:45:00) [facility] HospitalBnqevxzRKPTNCEGLO5000-58-68 12:45:00 Test Item Value Reference Range Interpretation Comments UA Leuk Est (test code Small *ABN*(02/14/2012 A = UA Leuk Est) 07:45:00) [facility] NorthwestPnrgkkdCXLXNJBEUR6593-35-58 12:45:00 Test Item Value Reference Range Interpretation Comments UA Nitrite (test code Negative (02/14/2012 N = UA Nitrite) 07:45:00) [facility] NorthwestJtkxwbhFHZILWEFGZ2904-10-26 12:45:00 Test Item Value Reference Range Interpretation Comments UA Protein (test code Negative (02/14/2012 N = UA Protein) 07:45:00) [facility] NorthwestMbhgbydGOTYCWZUHS2837-49-40 12:45:00 Test Item Value Reference Range Interpretation Comments UA Ketones (test code Negative = UA Ketones) *NA*(02/14/2012 07:45:00) [facility] HospitalXoobukuJPGUISAPJP9157-14-04 12:45:00 Test Item Value Reference Range Interpretation Comments UA Spec Grav (test code = UA Spec 1.005 1 Grav) [facility] HospitalGyqprhhHLUPRHHZIW7314-40-51 12:45:00 Test Item Value Reference Range Interpretation Comments UA Glucose (test code Negative (02/14/2012 N = UA Glucose) 07:45:00) [facility] AmericaKlcqaceIXNVEBUBTP2169-93-43 12:45:00 Test Item Value Reference Range Interpretation Comments UA Bili (test code = Negative *NA*(02/14/2012 UA Bili) 07:45:00) [facility] HospitalLfbivucZUMKFXMDBN2177-20-36 12:45:00 Test Item Value Reference Range Interpretation Comments UA pH (test code = UA pH) 7.5 1 5.0-8.0 N [facility] HospitalIcwdgbmJTHIXCVTPY3881-94-24 12:45:00 Test Item Value Reference Range Interpretation Comments UA Turbidity (test code = Clear (02/14/2012 N UA Turbidity) 07:45:00) [facility] HospitalKemfxtqSWUZRIOWKX0974-31-49 12:45:00 Test Item Value Reference Range Interpretation Comments UA Color (test code = Yellow *NA*(02/14/2012 UA Color) 07:45:00) [facility] HospitalVjknpfeFBBFLFFDDA8726-77-11 12:45:00 Test Item Value Reference Range Interpretation Comments UA Bacteria (test code = None Seen (02/14/2012 N UA Bacteria) 07:45:00) [facility] HospitalWklvkegKIGOOEEHHQ6956-17-39 12:45:00 Test Item Value Reference Range Interpretation Comments Micro? (test code = Performed (02/14/2012 N Micro?) 07:45:00) [facility] HospitalEqwvtmbLKVGXAMGYR2345-58-82 12:45:00 Test Item Value Reference Range Interpretation Comments UA WBC (test code = UA 0-2 /HPF (02/14/2012 N WBC) 07:45:00) [facility] AmericaIvtpeylEQOBSBAEVI0619-30-44 12:45:00 Test Item Value Reference Range Interpretation Comments UA Sq Epi (test code = Rare /LPF (02/14/2012 N UA Sq Epi) 07:45:00) [facility] HospitalSuedztuVZOEUXAHZM6812-86-60 12:45:00 Test Item Value Reference Range Interpretation Comments UA RBC (test None Seen See_Comment N [Automated mes brenda] code = UA RBC) (02/14/2012 The system wh ich 07:45:00) generated this result transmitted ref erence range: <=2. The reference range was not used to int erpret this result as normal/abnormal . [facility] HospitalSqrhryfGZHVFSYQW1308-61-13 12:45:00 Test Item Value Reference Range Interpretation Comments U Preg (test code = U Negative (02/14/2012 N Preg) 07:45:00) [facility] HospitalJqzxbquJNBFVNIBOF9546-75-14 12:45:00 Test Item Value Reference Range Interpretation Comments UA Urobilinogen (test code = UA 0.2 0.1-1.0 N Urobilinogen) [facility] NorthwestFqvxqcmUKOUABSHAJ9547-96-99 12:45:00 Test Item Value Reference Range Interpretation Comments UA Blood (test code = Negative (02/14/2012 N UA Blood) 07:45:00) [facility] HospitalZsvfxwrTSROQKVTHS9423-48-20 12:45:00 Test Item Value Reference Range Interpretation Comments UA Leuk Est (test code Small *ABN*(02/14/2012 A = UA Leuk Est) 07:45:00) [facility] NorthwestTzqctlxFGRNOVOZZT5781-84-49 12:45:00 Test Item Value Reference Range Interpretation Comments UA Nitrite (test code Negative (02/14/2012 N = UA Nitrite) 07:45:00) [facility] HospitalGvucupnRKWKYEDCJE2992-28-65 12:45:00 Test Item Value Reference Range Interpretation Comments UA Protein (test code Negative (02/14/2012 N = UA Protein) 07:45:00) [facility] HospitalSuhcvwoADJMXRSWCE1692-37-32 12:45:00 Test Item Value Reference Range Interpretation Comments UA Ketones (test code Negative = UA Ketones) *NA*(02/14/2012 07:45:00) [facility] NorthwestOjyugjqLYHBFKIHQT6639-82-52 12:45:00 Test Item Value Reference Range Interpretation Comments UA Spec Grav (test code = UA Spec 1.005 1 Grav) [facility] NorthwestVsjgducCXAPQVOWYU5681-50-85 12:45:00 Test Item Value Reference Range Interpretation Comments UA Glucose (test code Negative (02/14/2012 N = UA Glucose) 07:45:00) [facility] NorthwestBmvhwtrUSGBNVFVAK6398-61-81 12:45:00 Test Item Value Reference Range Interpretation Comments UA Bili (test code = Negative *NA*(02/14/2012 UA Bili) 07:45:00) [facility] AmericaFgusjllERLZPIFQCR2756-38-59 12:45:00 Test Item Value Reference Range Interpretation Comments UA pH (test code = UA pH) 7.5 1 5.0-8.0 N [facility] AmericaModmjfiFWMYUIJKFB2063-44-88 12:45:00 Test Item Value Reference Range Interpretation Comments UA Turbidity (test code = Clear (02/14/2012 N UA Turbidity) 07:45:00) [facility] AmericaQwrpfjaJUPDEWKLHX1107-80-61 12:45:00 Test Item Value Reference Range Interpretation Comments UA Color (test code = Yellow *NA*(02/14/2012 UA Color) 07:45:00) [facility] HospitalQetrqghMRDWPMJPXO8045-00-71 12:45:00 Test Item Value Reference Range Interpretation Comments UA Bacteria (test code = None Seen (02/14/2012 N UA Bacteria) 07:45:00) [facility] AmericaFvsxrxtWUTPXCSNVW3883-09-56 12:45:00 Test Item Value Reference Range Interpretation Comments Micro? (test code = Performed (02/14/2012 N Micro?) 07:45:00) [facility] AmericaZqjyqiqPRSWVUQFMD5206-30-28 12:45:00 Test Item Value Reference Range Interpretation Comments UA WBC (test code = UA 0-2 /HPF (02/14/2012 N WBC) 07:45:00) [facility] AmericaRjjegtdCXIBRJFTLG2826-08-97 12:45:00 Test Item Value Reference Range Interpretation Comments UA Sq Epi (test code = Rare /LPF (02/14/2012 N UA Sq Epi) 07:45:00) [facility] AmericaNywaxszVNKEDMIFPT7233-98-74 12:45:00 Test Item Value Reference Range Interpretation Comments UA RBC (test None Seen See_Comment N [Automated mes brenda] code = UA RBC) (02/14/2012 The system ich 07:45:00) generated this result transmitted ref erence range: <=2. The reference range was not used to int erpret this result as normal/abnormal . [facility]ann
[2022-12-26] MEDS ORDERED: HYDROCODONE/APAP 5/325 MG TAB ONE (13:55)
[2022-12-26 15:00] LABS: Specific Gravity 1.014 (1.005-1.030); Urine Bacteria <20 /HPF (<20); Urine Bilirubin NEGATIVE (Negative); Urine Blood Trace (Negative); Urine Clarity Turbid (Clear); Urine Color Yellow (Yellow); Urine Crystals Unidentified Few /HPF (None Seen); Urine Glucose TRACE (Negative); Urine Mucus Slight /HPF (None Seen); Urine Protein 1+ (Negative); Urine Urobilinogen Normal (Normal); Urine WBC Clump Rare /HPF (None Seen)
--- NOTE | 2022-12-26 16:06 | RAD REPORT ---
EXAM DESCRIPTION: RAD - Ribs Left - 12/26/2022 3:05 pm CLINICAL HISTORY: Pain;Smash injury COMPARISON: Chest Single View dated 12/13/2022 TECHNIQUE: Left ribs, 3 views. FINDINGS: Mildly displaced left lateral seventh-ninth rib fractures. No aggressive rib lesion. No evidence of pneumothorax. Stable patchy opacification of the left lower lung, possibly with a component of subpulmonic effusion versus elevation of the left hemidiaphragm. . IMPRESSION: Mildly displaced left lateral seventh-ninth rib fractures.
--- NOTE | 2022-12-26 16:23 | ER ---
Nurse's Notes [facility] Name: Chica Flores Age: 67 yrs Sex: Female : 1955 Arrival Date: 12/26/2022 Time: 13:19 Bed 14 Private MD: Diagnosis: Multiple fractures of ribs, left side;Hypoxemia Presentation: 12/26 13:20 Chief complaint: EMS states: FALL yesterday. patient states was taking a shower and db went to stand up from shower chair and slipped and fell. Complains of right rib pain only. Per [facility] xrays were done this AM and patient has 7th and 8th ribs that are broken. Denies LOC. Pt from [facility]. pt states has recent hip repair on right on Dec 04. Coronavirus screen: Vaccine status: Patient reports receiving the 2nd dose of the covid vaccine. Client denies travel out of the [place] in the last 14 days. At this time, the client does not indicate any symptoms associated with coronavirus-19. Ebola Screen: Patient negative for fever greater than or equal to 101.5 degrees Fahrenheit, and additional compatible Ebola Virus Disease symptoms Patient denies exposure to infectious person. Patient denies travel to an Ebola-affected area in the 21 days before illness onset. No symptoms or risks identified at this time. Initial Sepsis Screen: Does the patient meet any 2 criteria? No. Patient's initial sepsis screen is negative. Does the patient have a suspected source of infection? No. Patient's initial sepsis screen is negative. Risk Assessment: Do you want to hurt yourself or someone else? Patient reports no desire to harm self or others. Onset of symptoms was December 25, 2022. 13:20 Method Of Arrival: EMS db 13:20 Acuity: ANITA 2 db Triage Assessment: 13:23 General: Appears in no apparent distress. uncomfortable, Behavior is calm, cooperative. db Pain: Complains of pain in left ribs. Neuro: Level of Consciousness is awake, alert, obeys commands, Oriented to person, place, time, situation, Speech is normal, Facial symmetry appears normal. 13:24 Respiratory: Airway is patent Respiratory effort is even, unlabored, Respiratory db pattern is regular, symmetrical. Historical: - Allergies: 13:23 PENICILLINS; db 13:23 steroids; Allergy to Oral Steroids, IV is fine; db 13:23 BEEF CONTAINING PRODUCTS; db 13:23 SHELLFISH; db - PMHx: 13:23 ADD/ADHD; Anxiety; Colitis; Depression; Osteoporosis; PTSD; ulcerative ulcer; db - PSHx: 13:23 hip repair; db - Immunization history:: Adult Immunizations unknown, Client reports receiving the 2nd dose of the Covid vaccine. - Social history:: Smoking status: Patient denies any tobacco usage or history of. Screenin:25 [facility] ED Fall Risk Assessment (Adult) History of falling in the last 3 months, db including since admission Yes- fall prone (multiple falls) (3 pts) Confusion or Disorientation No (0 pts) Intoxicated or Sedated No (0 pts) Impaired Gait Yes (1 pt) Mobility Assist Device Used Yes (1 pt) Altered Elimination No (0 pt). Abuse screen: Denies threats or abuse. Denies injuries from another. Nutritional screening: No deficits noted. Tuberculosis screening: No symptoms or risk factors identified. Primary Survey: 21:46 Reassessment Breathing: Spontaneous respiratory effort, equal unlabored respirations, aa9 breath sounds clear bilaterally, regular pattern with symmetrical chest rise and fall. Circulation: No external hemorrhage noted. Regular and strong central pulse, skin warm/dry/normal color. Disability: Pupils Pupils are equal, round, reactive to light and accomodation. Assessment: 13:25 Reassessment: Patient appears in no apparent distress at this time. Patient and/or db family updated on plan of care and expected duration. Pain level reassessed. Patient is alert, oriented x 3, equal unlabored respirations, skin warm/dry/pink. Neuro: Level of Consciousness is awake, alert, obeys commands, Oriented to person, place, time, situation. 14:16 Reassessment: Patient appears in no apparent distress at this time. Patient and/or db family updated on plan of care and expected duration. Pain level reassessed. patient assisted on bedpan. Bottom cleaned. Noted redness to bottom. Noted some stool. Patient adult brief changed. Puriwick placed under patient. and urine sample collected. 19:18 General: Appears in no apparent distress. comfortable, slender, Behavior is cooperative.aa9 19:18 Cardiovascular: Patient's skin is warm and dry. Respiratory: Airway is patent aa9 Respiratory effort is even, unlabored. : Urine is clear. 21:00 Reassessment: Patient appears in no apparent distress at this time. Pt asked "when will aa9 I be given a room? I need something to help me relax". Pt explained Xanax given earlier should be taking effect anytime now, room assignments are not complete yet. She will be notified of room assignment. 21:09 Reassessment: Patient appears in no apparent distress at this time. pt asked "When will aa9 I get a room? My is waiting outside. Is he still outside? When should I tell him I got a room?" Pt explained it takes time to get an assigned room. has provided phone number to be notified of room change. 21:58 General: Appears in no apparent distress. Behavior is cooperative, report provided to nato Wyatt RN. 22:07 Reassessment: Doni Ibrahim at bedside, Dada at bedside, Phone number [phone], notified of room change understands need for admission, denies concerns. Vital Signs: 13:20 BP 163 / 96; Pulse 91; Resp 18; Temp 98.5; Pulse Ox 92% on R/A; Weight 49.9 kg; Height db 5 ft. 6 in. ; Pain 8/10; 14:00 BP 159 / 83; Pulse 94; Resp 16; Pulse Ox 98% on R/A; db 15:04 BP 151 / 80; Pulse 95; Resp 16; Pulse Ox 98% on R/A; db 16:15 BP 158 / 82; Pulse 101; Resp 16; Pulse Ox 98% on R/A; db 17:00 BP 146 / 78; Pulse 89; Resp 16; Pulse Ox 98% on R/A; db 18:00 BP 155 / 90; Pulse 97; Resp 16; Pulse Ox 98% on R/A; db 19:02 BP 156 / 87; Pulse 79; Pulse Ox 96% on R/A; aa9 20:30 BP 140 / 72; Pulse 99; Resp 16 S; Pulse Ox 95% on R/A; aa9 13:20 Body Mass Index 17.76 (49.90 kg, 167.64 cm) db 13:20 Pain Scale: Adult db Elliott Coma Score: 21:46 Eye Response: spontaneous(4). Motor Response: obeys commands(6). Verbal Response: aa9 oriented(5). Total: 15. ED Course: 13:19 Patient arrived in ED. db 13:23 Triage completed. db 13:24 Arm band placed on Patient placed in an exam room. db 13:26 Rajani Espinoza FNP-C is PHCP. snw 13:26 Rainer Moyer MD is Attending Physician. snw 13:26 Sugar Art, RN is Primary Nurse. db 15:00 Pulse ox on. NIBP on. db 15:07 Ribs Left XRAY In Process Unspecified. EDMS 16:21 Latha Gaona MD is Hospitalizing Provider. snw 17:37 No provider procedures requiring assistance completed. db 18:30 Inserted saline lock: 22 gauge in right forearm, using aseptic technique. Blood db collected. 18:41 Patient has correct armband on for positive identification. Bed in low position. Call db light in reach. Side rails up X 1. 19:10 Report given to Night RN. db 19:10 Warm blanket given. db 21:46 Patient maintains SpO2 saturation greater than 95% on room air. Thermoregulation: warm aa9 blanket given to patient. 21:46 Patient admitted, IV remains in place. aa9 Administered Medications: 13:54 Drug: HYDROcodone-acetaminophen PO 5 mg-325 mg 1 tabs Route: PO; mb9 16:41 Follow up: Response: No adverse reaction db 16:28 Drug: LORazepam PO 1 mg Route: PO; db 16:41 Follow up: Response: No adverse reaction db 16:28 Drug: Ciprofloxacin PO 500 mg Route: PO; db 16:41 Follow up: Response: No adverse reaction db 19:35 Drug: Potassium PO Effervescent Tablet 50 mEq Route: PO; aa9 Medication: 21:53 VIS not applicable for this client. aa9 Outcome: 16:22 Decision to Hospitalize by Provider. snw 21:54 Admitted to Med/surg aa9 21:54 Condition: stable 21:54 Instructed on the need for admit. 22:08 Patient left the ED. aa9 Signatures: Dispatcher [employer] EDMS Rajani Espinoza FNP-C IP/MOSAIC TECHNICIAN-Csnw Stacy Chowdary RN RN aa9 Sugar Art, RN RN Ann Salmon RN RN mb9 Corrections: (The following items were deleted from the chart) 13: 13:20 Chief complaint: EMS states: FALL yesterday. patient states was taking a shower db and went to stand up from shower chair and slipped and fell. Complains of right rib pain only. Per [facility] xrays were done this AM and patient has 7th and 8th ribs that are broken. Denies LOC db 13: 13:20 BP 163 / 96; Pulse 9bpm; Resp 18bpm; Pulse Ox 92% RA; Temp 98.5F; 49.9 kg; Height db 5 ft. 6 in.; BMI: 17.7; Pain 8/10, Adult; db 19:06 18:30 Inserted saline lock: 20 gauge in right forearm, using aseptic technique. Blood db collected. db
--- NOTE | 2022-12-26 16:23 | EDPHYS ---
Physician Documentation [facility] Name: Chica Flores Age: 67 yrs Sex: Female : 1955 Arrival Date: 12/26/2022 Time: 13:19 Bed 14 Private MD: ED Physician Rainer Moyer HPI: 12/26 16:20 This 67 yrs old Female presents to ER via EMS with complaints of Fall Injury. snw 16:20 Details of fall: The patient fell from seated position, out of a chair, in the shower. snw Onset: The symptoms/episode began/occurred suddenly, just prior to arrival. Associated injuries: The patient sustained injury to the chest, specifically the left lateral anterior chest, contusion, tenderness. Severity of symptoms: At their worst the symptoms were moderate, in the emergency department the symptoms have improved. The patient has experienced similar episodes in the past. It is unknown whether or not the patient has recently seen a physician. Historical: - Allergies: 13:23 PENICILLINS; db 13:23 steroids; Allergy to Oral Steroids, IV is fine; db 13:23 BEEF CONTAINING PRODUCTS; db 13:23 SHELLFISH; db - PMHx: 13:23 ADD/ADHD; Anxiety; Colitis; Depression; Osteoporosis; PTSD; ulcerative ulcer; db - PSHx: 13:23 hip repair; db - Immunization history:: Adult Immunizations unknown, Client reports receiving the 2nd dose of the Covid vaccine. - Social history:: Smoking status: Patient denies any tobacco usage or history of. ROS: 16:06 Constitutional: Negative for fever, chills, and weight loss, Eyes: Negative for injury, snw pain, redness, and discharge, ENT: Negative for injury, pain, and discharge, Neck: Negative for injury, pain, and swelling, Cardiovascular: Negative for chest pain, palpitations, and edema, Respiratory: Negative for shortness of breath, cough, wheezing, and pleuritic chest pain, Abdomen/GI: Negative for abdominal pain, nausea, vomiting, diarrhea, and constipation, Back: Negative for injury and pain, : Negative for injury, bleeding, discharge, and swelling, Skin: Negative for injury, rash, and discoloration, Neuro: Negative for headache, weakness, numbness, tingling, and seizure, Psych: Negative for depression, anxiety, suicide ideation, homicidal ideation, and hallucinations. 16:06 MS/extremity: Positive for injury or acute deformity, contusion, pain, tenderness, of the left lateral anterior chest. Exam: 16:07 Head/Face: Normocephalic, atraumatic. Eyes: Pupils equal round and reactive to light, snw extra-ocular motions intact. Lids and lashes normal. Conjunctiva and sclera are non-icteric and not injected. Cornea within normal limits. Periorbital areas with no swelling, redness, or edema. ENT: Nares patent. No nasal discharge, no septal abnormalities noted. Tympanic membranes are normal and external auditory canals are clear. Oropharynx with no redness, swelling, or masses, exudates, or evidence of obstruction, uvula midline. Mucous membranes moist. Neck: Trachea midline, no thyromegaly or masses palpated, and no cervical lymphadenopathy. Supple, full range of motion without nuchal rigidity, or vertebral point tenderness. No Meningismus. Chest/axilla: Normal chest wall appearance and motion. Nontender with no deformity. No lesions are appreciated. Cardiovascular: Regular rate and rhythm with a normal S1 and S2. No gallops, murmurs, or rubs. Normal PMI, no JVD. No pulse deficits. Respiratory: Lungs have equal breath sounds bilaterally, clear to auscultation and percussion. No rales, rhonchi or wheezes noted. No increased work of breathing, no retractions or nasal flaring. Abdomen/GI: Soft, non-tender, with normal bowel sounds. No distension or tympany. No guarding or rebound. No evidence of tenderness throughout. Back: No spinal tenderness. No costovertebral tenderness. Full range of motion. Skin: Warm, dry with normal turgor. Normal color with no rashes, no lesions, and no evidence of cellulitis. Neuro: Awake and alert, GCS 15, oriented to person, place, time, and situation. Cranial nerves II-XII grossly intact. Motor strength 5/5 in all extremities. Sensory grossly intact. Cerebellar exam normal. Normal gait. Psych: Awake, alert, with orientation to person, place and time. Behavior, mood, and affect are within normal limits. 16:07 Constitutional: The patient appears emaciated, frail, uncomfortable. 16:07 Musculoskeletal/extremity: Extremities: grossly normal except: left lateral ribs with tenderness to palpation s/p slipping off shower chair onto metal bar. Denies head injury, denies LOC, ROM: no acute changes, Circulation is intact in all extremities. Sensation intact. Weight bearing: is unable to bear weight, lower extremities bilaterally with edema, pt is non ambulatory. Vital Signs: 13:20 BP 163 / 96; Pulse 91; Resp 18; Temp 98.5; Pulse Ox 92% on R/A; Weight 49.9 kg; Height db 5 ft. 6 in. ; Pain 8/10; 14:00 BP 159 / 83; Pulse 94; Resp 16; Pulse Ox 98% on R/A; db 15:04 BP 151 / 80; Pulse 95; Resp 16; Pulse Ox 98% on R/A; db 16:15 BP 158 / 82; Pulse 101; Resp 16; Pulse Ox 98% on R/A; db 17:00 BP 146 / 78; Pulse 89; Resp 16; Pulse Ox 98% on R/A; db 18:00 BP 155 / 90; Pulse 97; Resp 16; Pulse Ox 98% on R/A; db 19:02 BP 156 / 87; Pulse 79; Pulse Ox 96% on R/A; aa9 20:30 BP 140 / 72; Pulse 99; Resp 16 S; Pulse Ox 95% on R/A; aa9 13:20 Body Mass Index 17.76 (49.90 kg, 167.64 cm) db 13:20 Pain Scale: Adult db Elliott Coma Score: 21:46 Eye Response: spontaneous(4). Motor Response: obeys commands(6). Verbal Response: aa9 oriented(5). Total: 15. MDM: 13:28 Patient medically screened. snw 14:54 ED course: to x-ray. snw 16:04 Differential diagnosis: contusion, fracture, multiple trauma. Data reviewed: vital snw signs, nurses notes, EMS record, radiologic studies, plain films. Independent interpretation of the following test(s) in the Emergency Department X-Ray: My interpretation is left lateral rib fractures x 2, no pneumothorax. Historians other than the Patient: EMS: [facility]. Family Member: and their Daughter. Counseling: I had a detailed discussion with the patient and/or guardian regarding: the historical points, exam findings, and any diagnostic results supporting the discharge/admit diagnosis, the presence of at least one elevated blood pressure reading (>120/80) during this emergency department visit, lab results, radiology results, the need for outpatient follow up, to return to the emergency department if symptoms worsen or persist or if there are any questions or concerns that arise at home. Response to treatment: the patient's symptoms have mildly improved after treatment. Special discussion: Based on the patient's history, exam, and Dx evaluation, there is no indication for emergent intervention or inpatient Tx. It is understood by the patient/guardian that if the Sx's persist or worsen they need to return immediately for re-evaluation. 16:18 Management of patient was discussed with the following: Hospitalist: Discussed with [facility] Hospitalist group re: admission . Denitrator Operator: Discussed with Dr. Harrison re: consult for Hospitalist back up. Care significantly affected by the following chronic conditions: Hypertension, Congestive Heart Failure, Dementia, frequent falls, and osteoporosis. 19:09 ED course: Dr. Gaona at bedside. [facility] 12/26 14:15 Order name: Urinalysis W/Microscopic; Complete Time: 15:07 db 12/26 15:08 Order name: Urine Culture [facility] 12/26 17:58 Order name: CBC with Automated Diff; Complete Time: 18:46 [facility] 12/26 17:58 Order name: Comprehensive Metabolic Panel; Complete Time: 19:07 [facility] 12/26 17:58 Order name: Lactate w/ 2H reflex if indic.; Complete Time: 19:27 [facility] 12/26 17:58 Order name: Magnesium; Complete Time: 19:07 [facility] 12/26 17:58 Order name: Phosphorus; Complete Time: 19:07 [facility] 12/26 17:58 Order name: Procalcitonin; Complete Time: 19:52 [facility] 12/26 17:58 Order name: Troponin High Sensitivity; Complete Time: 19:07 [facility] 12/26 19:34 Order name: CBC with Automated Diff [facility] 12/26 19:34 Order name: CBC with Automated Diff [facility] 12/26 19:34 Order name: Comprehensive Metabolic Panel [facility] 12/26 19:34 Order name: Comprehensive Metabolic Panel [facility] 12/26 13:43 Order name: Ribs Left XRAY; Complete Time: 16:10 sn 12/26 16:10 Order name: INCENTIVE SPIROMETRY [facility] 03/22 16:36 Order name: Vegetarian Diet [facility] 12/26 19:34 Order name: CONS Physician Consult [facility] 12/26 19:34 Order name: Heart Healthy EDMS Administered Medications: 13:54 Drug: HYDROcodone-acetaminophen PO 5 mg-325 mg 1 tabs Route: PO; mb9 16:41 Follow up: Response: No adverse reaction db 16:28 Drug: LORazepam PO 1 mg Route: PO; db 16:41 Follow up: Response: No adverse reaction db 16:28 Drug: Ciprofloxacin PO 500 mg Route: PO; db 16:41 Follow up: Response: No adverse reaction db 19:35 Drug: Potassium PO Effervescent Tablet 50 mEq Route: PO; aa9 Disposition Summary: 12/26/22 16:22 Hospitalization Ordered Hospitalization Status: Observation snw Provider: Latha Gaona Location: Telemetry/MedSurg (observation) snw Condition: Stable snw Problem: new snw Symptoms: are unchanged snw Bed/Room Type: Standard snw Room [facility](12/26/22 21:36) cg Diagnosis - Multiple fractures of ribs, left side snw - Hypoxemia snw Forms: - Medication Reconciliation Form snw - SBAR form snw Signatures: Dispatcher [employer] EDAZ Rajani Espinoza, INFORMATION SYSTEMS PROFESSOR-C INFORMATION SYSTEMS PROFESSOR-Csnw Rosalva Shirley, RN RN cg Stacy Chowdary RN RN aa9 Sugar Art RN RN Ann Salmon RN RN mb9 Corrections: (The following items were deleted from the chart) 21:36 16:22 snw cg
[2022-12-26] MEDS ORDERED: CIPROFLOXACIN HCL 500 MG TAB ONE (16:28)
[2022-12-26 18:40] LABS: Absolute Lymphocytes (CBC) 0.7 K/uL (0.7-4.9); Hematocrit 28.2 % (36.0-45.0); MPV 8.7 fL (7.6-11.3)
[2022-12-26 19:03] LABS: Albumin 2.2 g/dL (3.4-5.0); Bilirubin Total 0.3 mg/dL (0.2-1.0); Magnesium 1.8 mg/dL (1.6-2.4); Phosphorus 2.8 mg/dL (2.5-4.9); Potassium 3.1 mEq/L (3.5-5.1); Protein, Total 5.4 g/dL (6.4-8.2); Troponin High Sensitivity 11.1 pg/mL (<58.9)
[2022-12-26] MEDS ORDERED: ONDANSETRON 4 MG/2 ML VIAL IV PRN (19:30)
[2022-12-26] MEDS ORDERED: ACETAMINOPHEN 500 MG TAB PO PRN (19:30)
[2022-12-26] MEDS ORDERED: POTASSIUM 25 MEQ EFFERV TAB ONE (19:35)
[2022-12-26] MEDS: NA CHLORIDE 0.9% 1,000 ML IV SCH (20:00)
[2022-12-26] MEDS ORDERED: ALPRAZOLAM 0.5 MG TABLET ONE (20:02)
--- NOTE | 2022-12-26 20:02 | P.HP ---
Certification for Inpatient Patient admitted to: Observation With expected LOS: <2 Midnights Patient will require the following post-hospital care: Residential Practitioner: I am a practitioner with admitting privileges, knowledge of patient current condition, hospital course, and medical plan of care. Services: Services provided to patient in accordance with Admission requirements found in Title 42 Section 412.3 of the Code of Federal Regulations Patient History Date of Service: 12/26/22 Reason for admission: Status post fall with rib fractures History of Present Illness: patient is a 67-year-old female who lives at [facility] who comes into the hospital after falling. She fell to the left side and suffered multiple rib fractures. She was brought into the emergency room where chest x- ray revealed rib fracture of ribs 7 8 and 9. patient did not have any other abnormalities noted. Patient states she is having minimal pain. Labs are stable. Vital signs are stable. Patient will be admitted to the hospital for further evaluation. Allergies ceftriaxone sodium [From Rocephin] Allergy (Intermediate, Verified 11/07/12 09:26) Hives Penicillins Allergy (Intermediate, Verified 11/23/11 06:11) Hives/Rash naltrexone Allergy (Verified 09/03/20 05:58) Rash prednisone Allergy (Verified 09/03/20 05:59) Rash aripiprazole [From Abilify] Adverse Reaction (Verified 09/03/20 05:58) hallucination oral steroids Allergy (Uncoded 10/01/14 05:33) Rash Home Medications: Fluoxetine HCl [Prozac] 80 mg PO DAILY 11/05/12 Atorvastatin Calcium 40 mg PO BEDTIME 12/26/22 Buspirone HCl [Buspar] 5 mg PO TID 12/26/22 Docusate Sodium 200 mg PO DAILY 12/26/22 Donepezil HCl [Aricept] 10 mg PO BEDTIME 12/26/22 Eucalyptus Oil/Menthol/Camphor [Vicks Vaporub Ointment] 1 appl TP Q2HP PRN 12/26/22 Hydrocodone 10/APAP 325 [[place] 10/325] 1 tab PO Q8HP PRN 12/26/22 Omeprazole 20 mg PO ACB 12/26/22 Risperidone [Risperdal] 1.5 mg PO TID 12/26/22 Trazodone HCl 100 mg PO BEDTIME 12/26/22 carvediloL [Carvedilol] 6.25 mg PO BID 12/26/22 clonazePAM [Clonazepam] 1 mg PO BID 12/26/22 risperiDONE [Risperdal] 0.5 mg PO BEDTIME 12/26/22 risperiDONE [Risperdal] 4 mg PO BEDTIME 12/26/22 - Past Medical/Surgical History Diabetic: No -: History of seizure disorder -: colitis -: PTSD -: depression -: OCD -: Bilateral eye surgery -: tonsillectomy - Family History Brother Medical History: Cancer Notes: brain ca. uncle colon cancer Father Medical History: Heart disease Mother Medical History: Other (see notes) Notes: thyroid and throat cancer - Social History Smoking Status: Former smoker Alcohol use: No CD- Drugs: No Caffeine use: Yes Review of Systems 10-point ROS is otherwise unremarkable Physical Examination - Vital Signs Temperature: 101 F Blood Pressure: 140/80 Pulse: 90 Respirations: 18 Pulse Ox (%): 96 - Physical Exam General: Alert, In no apparent distress, Oriented x3 HEENT: Atraumatic, PERRLA, Mucous membr. moist/pink, EOMI, Sclerae nonicteric Neck: Supple, 2+ carotid pulse no bruit, No LAD, Without JVD or thyroid abnormality Respiratory: Clear to auscultation bilaterally, Normal air movement Cardiovascular: Regular rate/rhythm, Normal S1 S2, No murmurs Gastrointestinal: Normal bowel sounds, Soft and benign, Non-distended, W/out succussion splash, No tenderness Musculoskeletal: No tenderness Integumentary: No rashes Neurological: Normal gait, Normal speech, Normal strength at 5/5 x4 extr, Normal tone, Sensation intact, Cranial nerves 3-12 intact, Normal affect Lymphatics: No axilla or inguinal lymphadenopathy - Studies Laboratory Data (last 24 hrs) 12/26/22 18:30: Sodium 133 L, Potassium 3.1 L, BUN 7, Creatinine 0.42 L, Glucose 120 H, Phosphorus 2.8, Magnesium 1.8, Total Bilirubin 0.3, AST 32, ALT 37, Alkaline Phosphatase 175 H 12/26/22 18:30: WBC 12.50 H, Hgb 9.5 L, Hct 28.2 L, Plt Count 244 Assessment & Plan - Problems (Diagnosis) (1) Rib fracture Current Visit: Yes Status: Acute (2) Status post fall Current Visit: Yes Status: Acute (3) Fever Onset Date: 11/23/15 Current Visit: No Status: Acute (4) Ulcerative colitis Onset Date: 11/23/15 Current Visit: No Status: Acute - Plan Plan: 1. IV hydration 2. Pain control 3. IV steroids 4. Physical therapy evaluation 5. monitor labs closely 6. Gi DVT prophylaxis Discharge Plan: [facility] Plan to discharge in: 24 Hours - Advance Directives Does patient have a Living Will: No Does patient have a Durable POA for Healthcare: Yes - Code Status/Comfort Care Code Status Assessed: Yes Code Status: Full Code Critical Care: No Time Spent Managing PTS Care (In Minutes): 45
[2022-12-26] MEDS ORDERED: NA CHLORIDE 0.9% 1,000 ML ONE (20:03)
[2022-12-26] MEDS ORDERED: GABAPENTIN 300 MG CAP ONE (20:03)
[2022-12-26] MEDS: ALPRAZOLAM 0.5 MG TABLET PO PRN (20:04)
[2022-12-26] MEDS: GABAPENTIN 300 MG CAP PO SCH (20:05)
[2022-12-26] MEDS: MORPHINE 2 MG/ML SYR IV PRN (23:12)
[2022-12-26 23:16] VITALS: BMI 20.6
[2022-12-27 01:19] VITALS: O2SAT 95
[2022-12-27] MEDS ORDERED: Levofloxacin500mg IV 500 MG/100 ML BAG IV SCH (02:00)
[2022-12-27] MEDS: MORPHINE 2 MG/ML SYR IV PRN ×4 (03:48→20:00)
[2022-12-27 05:22] LABS: Absolute Lymphocytes (CBC) 0.6 K/uL (0.7-4.9); Hematocrit 23.1 % (36.0-45.0); Lymphocytes % 6.6 % (15.3-44.8); MCV 93.4 fL (80-100); MPV 8.9 fL (7.6-11.3); RBC Red Blood Cell Count 2.47 M/uL (3.86-4.86)
[2022-12-27 05:40] LABS: Albumin 1.9 g/dL (3.4-5.0); Bilirubin Total 0.3 mg/dL (0.2-1.0); Potassium 3.5 mEq/L (3.5-5.1); Protein, Total 4.7 g/dL (6.4-8.2)
[2022-12-27] MEDS: METHYLPREDNISOLONE 40 MG INJ IV SCH ×3 (06:08→17:02)
[2022-12-27] MEDS: NA CHLORIDE 0.9% 1,000 ML IV SCH ×2 (06:08→15:35)
[2022-12-27] MEDS: FLUOXETINE 20 MG CAP PO SCH (08:22)
[2022-12-27] MEDS: GABAPENTIN 300 MG CAP PO SCH ×3 (08:23→20:12)
--- NOTE | 2022-12-27 10:16 | CON ---
Date of Consultation: 12/27/2022 Brief History Of Present Illness: The patient is a 67-year-old female, who lives at [facility], who came in after a fall in the shower onto her left rib area. She states that the area has s ignificantly pain and she was brought to the ER with the above-stated complaints. She has no shortne ss of breath, difficulty breathing. She is not amnestic to the event. She has no LOC since the init ial event occurred. The pain is improving since being in the hospital. She has some memory gaps, th ough however, but she states she is not amnestic to the event and she was able to describe in detail to myself. Past Medical History: Significant for seizure disorder, colitis, PTSD, depression, OCD. Past Surgical History: Bilateral eye surgery, tonsillectomy. Allergies: TO ROCEPHIN, PENICILLIN, NALTREXONE, PREDNISONE, ABILIFY, ORAL STEROIDS, ALL CAUSING RASH ES AND HIVES. Home Medications: Include Prozac, atorvastatin, BuSpar, Colace, Aricept, hydrocodone, omeprazole, Ri sperdal, trazodone, carvedilol, clonazepam. Family History: Significant for colon cancer, brain cancer, heart disease. Social History: She has a positive tobacco use history. Denies alcohol or recreational drug use. Review of Systems: Ten-point review of systems other than HPI, denies. Physical Examination: General: At the time of my examination; she is awake, alert, oriented. Psychiatric: She is appropriate and conversive. She has somewhat poor mentation and requires freque nt redirection, but upon redirection, she is able to answer questions appropriately. She is not leth argic at all during my examination and is awake and very responsive. HEENT: Otherwise normocephalic and atraumatic. There is no tenderness on scalp palpation. No evide nce of facial trauma. Teeth are not malaligned. No oropharyngeal trauma appreciated. Neck: Supple without JVD. Chest: Normal expansion and excursion. There is left chest wall tenderness along the seventh and ni nth rib area. There is no bruising, no skin changes. No other chest deformity appreciated. No ches t deformity appreciated at all other than the tenderness, but no deformity. Pelvis: Stable without injury. Extremities: She has edema in bilateral lower extremities with swelling, but no tenderness. She has some mild skin abrasions on the left tibia, but very superficial. The remainder of the exam is unre markable. Laboratory Data: She had a laboratory exam, which revealed white blood cell count of 9.0, hemoglobin 7.8, hematocrit 23.1, platelet count was 217, neutrophils 85%. Her sodium 134, potassium 3.5, chlor kayla 101, carbon dioxide 30, BUN 8, creatinine 0.3, glucose was 92. Lactic acid was 1.4. Her procalc itonin was less than 0.05. Troponin 11.1. She had positive urinary tract infection by report with t urbidity, leukocyte esterase is 250, white blood cells greater than 50. She had a chest x-ray perfor [facility] on 12/26, officially read as mildly displaced left lateral seventh and ninth rib fractures. Assessment And Plan: This is a 67-year-old female, who comes in with left seventh and ninth rib frac tures after a fall. 1.Continue pain management. 2.Incentive spirometry. 3.Respiratory treatment and therapy. 4.Continue Physical Therapy consultation. 5.When the patient's pain is well controlled, which appears to be achieving quite well at this point , she will deem appropriate for discharge at this point from a surgical standpoint. Thank you for this interesting consultation. ALEXI/JESSE Voice ID: [id number] Report ID: [id number]
[2022-12-27 11:12] LABS: Absolute Lymphocytes (CBC) 0.2 K/uL (0.7-4.9); Hematocrit 27.8 % (36.0-45.0); Lymphocytes % 1.9 % (15.3-44.8); MCV 93.9 fL (80-100); MPV 9.1 fL (7.6-11.3); RBC Red Blood Cell Count 2.96 M/uL (3.86-4.86)
[2022-12-27] MEDS: HYDROCODONE/APAP 10/325 TAB PO PRN ×2 (11:27→17:06)
[2022-12-27] MEDS: ALPRAZOLAM 0.5 MG TABLET PO PRN ×2 (11:38→20:12)
--- NOTE | 2022-12-27 11:51 | RAD REPORT ---
EXAM DESCRIPTION: RADChest Single View12/27/2022 10:35 am CLINICAL HISTORY: rib fx COMPARISON: Chest Single View dated 12/13/2022; Chest Single View dated 07/03/2021; Chest Single View d ated 09/03/2020; Chest Single View dated 12/28/2018 TECHNIQUE: Portable AP view of the chest. FINDINGS: Patchy airspace opacities and interstitial prominence of the lung bases, more pronounced o n the left. No pneumothorax or effusion. The cardiomediastinal contours are unremarkable. IMPRESSION: Patchy bibasilar opacities as above, could reflect atelectasis or early pneumonia.
[2022-12-27 13:26] LABS: Blood Morphology Comment NOT SEEN (NOT SEEN); Platelet Estimate ADEQ; Platelets, Giant NOTED; White Blood Cell Scan OK (OK)
[2022-12-27] MEDS: JUVEN PACKET PO SCH (20:12)
[2022-12-27] MEDS ORDERED: Levofloxacin 750mg IV 750 MG/150 ML BAG IV SCH (21:00)
[2022-12-28] MEDS: MORPHINE 2 MG/ML SYR IV PRN (00:01)
[2022-12-28] MEDS: METHYLPREDNISOLONE 40 MG INJ IV SCH ×2 (00:01→05:49)
[2022-12-28] MEDS: ALPRAZOLAM 0.5 MG TABLET PO PRN ×2 (03:33→13:25)
[2022-12-28] MEDS: NA CHLORIDE 0.9% 1,000 ML IV SCH (03:33)
[2022-12-28] MEDS: HYDROCODONE/APAP 10/325 TAB PO PRN ×2 (04:38→10:27)
[2022-12-28] MEDS: GABAPENTIN 300 MG CAP PO SCH (08:32)
[2022-12-28] MEDS: FLUOXETINE 20 MG CAP PO SCH (08:32)
[2022-12-28] MEDS: JUVEN PACKET PO SCH (08:35)
[2022-12-28] MEDS ORDERED: METOPROLOL TAR 50 MG TAB PO ONE (08:57)
[2022-12-28] MEDS ORDERED: LIDOCAINE 5% OINT 30 GM TUBE TOP SCH (09:00)
[2022-12-28 11:53] VITALS: BP 137/81; TEMP 98.7
--- NOTE | 2022-12-29 07:55 | P.PN ---
Subjective Date of Service: 12/27/22 Patient continues to do well with no new complaints. Seen by surgery and no intervention necessary. Chest x-ray with no pneumothorax. Possible atelectasis. No fever no cough or congestion. She is requesting to stay 1 more night. We will keep her in the hospital overnight and if she does well up tonight and plan to discharge her home in the morning. Review of Systems 10-point ROS is otherwise unremarkable Physical Examination - Vital Signs Temperature: 98.7 F Blood Pressure: 137/81 Pulse: 83 Respirations: 16 Pulse Ox (%): 95 - Physical Exam General: Alert, In no apparent distress, Oriented x3 HEENT: Atraumatic, PERRLA, EOMI Neck: Supple, JVD not distended Respiratory: Clear to auscultation bilaterally, Normal air movement Cardiovascular: Regular rate/rhythm, Normal S1 S2, No murmurs Gastrointestinal: Normal bowel sounds, Soft and benign, Non-distended, No tenderness Musculoskeletal: No clubbing, No swelling, No tenderness Neurological: Sensation intact, Cranial nerves 3-12 intact - Studies Microbiology Data (last 24 hrs): 12/26/22 14:15 Clean Catch Urine [place] Count - Final >100,000 CFU/ML. 12/26/22 14:15 Clean Catch Urine - Final Escherichia Coli Esbl Gram Neg [facility] Medications List Reviewed: Yes Assessment & Plan - Problems (Diagnosis) (1) Rib fracture Status: Acute (2) Status post fall Status: Acute (3) Fever Onset Date: 11/23/15 Status: Acute (4) Ulcerative colitis Onset Date: 11/23/15 Status: Acute - Plan Plan: 1. IV hydration 2. Pain control 3. IV steroids 4. Physical therapy evaluation 5. monitor labs closely 6. Patient on Levaquin. We will continue at this time pending cultures 7. Gi DVT prophylaxis Discharge Plan: Intermediate Plan to discharge in: 24 Hours - Advance Directives Does patient have a Living Will: No Does patient have a Durable POA for Healthcare: Yes - Code Status/Comfort Care Code Status: Full Code Critical Care: No Time Spent Managing PTS Care (In Minutes): 35
--- NOTE | 2022-12-29 07:57 | P.DS ---
Discharge Date: 12/28/22 Disposition: TRANSFER TO SNF - MEDICAL Discharge Condition: GOOD Reason for Admission: Status post fall with rib fractures - Problems (1) Rib fracture Status: Acute (2) Status post fall Status: Acute (3) Fever Onset Date: 11/23/15 Status: Acute (4) Ulcerative colitis Onset Date: 11/23/15 Status: Acute Brief History of Present Illness: patient is a 67-year-old female who lives at [facility] who comes into the hospital after falling. She fell to the left side and suffered multiple rib fractures. She was brought into the emergency room where chest x- ray revealed rib fracture of ribs 7 8 and 9. patient did not have any other abnormalities noted. Patient states she is having minimal pain. Labs are stable. Vital signs are stable. Patient will be admitted to the hospital for further evaluation. Hospital Course: Patient has been doing well. She denies any complaints. She is tolerating her meal and she is working with physical therapy. She did have questionable ESBLE. coli. Sensitive to Levaquin. Continue Levaquin. Very minimal bacteria in the urine on urine analysis. No fevers. Procalcitonin negative. Lactic acid negative. Patient not having any pleuritic chest pain. Patient is feeling well overall. She will continue working with physical therapy at discharge. Patient is stable for discharge to [facility]. Vital Signs/Physical Exam: Temp Pulse Resp BP Pulse Ox 98.7 F 83 16 137/81 95 12/29/22 07:55 12/29/22 07:55 12/29/22 07:55 12/29/22 07:55 12/29/22 07:55 General: Alert, In no apparent distress, Oriented x3 Respiratory: Clear to auscultation bilaterally Laboratory Data at Discharge: WBC 10.50 thou/uL (4.3-10.9) 12/27/22 10:40 Hgb 9.2 g/dL (12.0-15.0) L D 12/27/22 10:40 Hct 27.8 % (36.0-45.0) L 12/27/22 10:40 Plt Count 252 thou/uL (152-406) 12/27/22 10:40 Sodium 134 mEq/L (136-145) L 12/27/22 04:40 Potassium 3.5 mEq/L (3.5-5.1) 12/27/22 04:40 BUN 8 mg/dL (7-18) 12/27/22 04:40 Creatinine 0.37 mg/dL (0.55-1.02) L 12/27/22 04:40 Glucose 92 mg/dL (74-106) 12/27/22 04:40 Phosphorus 2.8 mg/dL (2.5-4.9) 12/26/22 18:30 Magnesium 1.8 mg/dL (1.6-2.4) 12/26/22 18:30 Total Bilirubin 0.3 mg/dL (0.2-1.0) 12/27/22 04:40 AST 25 U/L (15-37) 12/27/22 04:40 ALT 31 U/L (13-56) 12/27/22 04:40 Alkaline Phosphatase 147 U/L (45-117) H 12/27/22 04:40 Home Medications: Fluoxetine HCl [Prozac] 80 mg PO DAILY 11/05/12 Atorvastatin Calcium 40 mg PO BEDTIME 12/26/22 Buspirone HCl [Buspar] 5 mg PO TID 12/26/22 Docusate Sodium 200 mg PO DAILY 12/26/22 Donepezil HCl [Aricept] 10 mg PO BEDTIME 12/26/22 Eucalyptus Oil/Menthol/Camphor [Vicks Vaporub Ointment] 1 appl TP Q2HP PRN 12/26/22 Hydrocodone 10/APAP 325 [[place] 10/325] 1 tab PO Q8HP PRN 12/26/22 Omeprazole 20 mg PO ACB 12/26/22 Risperidone [Risperdal] 1.5 mg PO TID 12/26/22 Trazodone HCl 100 mg PO BEDTIME 12/26/22 carvediloL [Carvedilol] 6.25 mg PO BID 12/26/22 clonazePAM [Clonazepam] 1 mg PO BID 12/26/22 risperiDONE [Risperdal] 0.5 mg PO BEDTIME 12/26/22 risperiDONE [Risperdal] 4 mg PO BEDTIME 12/26/22 levoFLOXacin [Levaquin] 500 mg PO DAILY #7 tab 12/29/22 New Medications: levoFLOXacin [Levaquin] 500 mg PO DAILY #7 tab Physician Discharge Instructions: OK TO DC IV AND DC HOME FOLLOW-UP WITH PRIMARY CARE PROVIDER IN 1-2 WEEKS Return to the ER if symptoms worsen CALL DR. FINE AT [phone] IF ANY QUESTIONS REGARDING HOSPITAL STAY. PLEASE CALL THE FLOOR AT [phone] IF ANY MEDICATION OR NURSING QUESTIONS. Diet: Regular Activity: Fall precautions Followup: Maury Dhaliwal MD [Primary Care Provider] - (Call to schedule appointment) Time spent managing pt's care (in minutes): 35
== END 2022-12-28 14:56 ==
LOC: ER 13:07 → ERHOLD 19:30 → 2ND 22:00
PROVIDERS: ADMIT Hospitalist; ATTEND Hospitalist
DX: S22.42XA Multiple fractures of ribs, left side, initial encounter for closed fracture (principal); R09.02 Hypoxemia; K51.90 Ulcerative colitis, unspecified, without complications; G40.909 Epilepsy, unspecified, not intractable, without status epilepticus; F43.10 Post-traumatic stress disorder, unspecified; F32.A Depression, unspecified; F42.9 Obsessive-compulsive disorder, unspecified; Z87.891 Personal history of nicotine dependence; F90.9 Attention-deficit hyperactivity disorder, unspecified type; F41.9 Anxiety disorder, unspecified; M81.0 Age-related osteoporosis without current pathological fracture; R50.9 Fever, unspecified; W19.XXXA Unspecified fall, initial encounter; Z20.822 Contact with and (suspected) exposure to COVID-19
CPT/HCPCS: 87088; 85025 ×3; 81001; 87086; 36415 ×2; 83735; 84100; 83605; 87077; 87186; 84484; 80053 ×2; 84145; 71045; 71100; 97116; 97161; 97530; 99285; U0003; J2270 ×6; J7030 ×4; J2920 ×5; G0378 ×5